=== PATIENT | female | born 1975 | race Caucasian/White ===

== ENCOUNTER 2018-01-17 09:55 | Emergency (ER) | payer OTHER ==
[2018-01-17] MEDS ORDERED: predniSONE 50 MG TAB PO STA (11:05)
[2018-01-17] MEDS ORDERED: diphenhydrAMINE 50 MG CAP PO STA (11:06)
[2018-01-17] MEDS ORDERED: FAMOTIDINE 20 MG TAB PO STA (11:06)
[2018-01-17 12:45] VITALS: RESP 16
--- NOTE | 2018-01-17 13:13 | ED ---
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 She put a rent-vit-holrnor topical cream for the discomfort, then she noticed some redness and some hives on the or and she also had some burning with this appointment. She denies any shortness of breath she denies any tightening of the throat no chest pain or shortness of breath no other symptoms at all - Related Data Home Medications Medication Instructions Recorded Confirmed Hydrochlorothiazide 6.25 mg PO DAILY 06/21/16 01/17/18 Losartan [Cozaar] 25 mg PO DAILY 06/21/16 01/17/18 metFORMIN HCL [Glucophage] 500 mg PO BID 06/21/16 01/17/18 Gabapentin [Neurontin] 100 mg PO TID 01/17/18 01/17/18 Gabapentin [Neurontin] 200 mg PO HS 01/17/18 01/17/18 Previous Rx's Medication Instructions Recorded Ibuprofen [Motrin] 600 mg PO Q6HR PRN #20 tab 06/29/16 predniSONE 50 mg PO DAILY #5 tablet 01/17/18 Allergies Allergy/AdvReac Type Severity Reaction Status Date / Time capsaicin Allergy Rash/Hives Verified 01/17/18 12:31 Review of Systems ROS Statement: Those systems with pertinent positive or pertinent negative responses have been documented in the HPI. ROS Other: All systems not noted in ROS Statement are negative. Past Medical History Past Medical History: Diabetes Mellitus, Hypertension History of Any Multi-Drug Resistant Organisms: None Reported Past Surgical History: Appendectomy, Cholecystectomy, Tubal Ligation Additional Past Surgical History / Comment(s): carpal tunnel, dental Past Psychological History: No Psychological Hx Reported Smoking Status: Current every day smoker Past Alcohol Use History: Occasional Past Drug Use History: None Reported General Exam - General Exam Comments Initial Comments: General: The patient is awake and alert, in no distress, and does not appear acutely ill. Skin: Skin is warm and dry and no rashes or lesions are noted. Noticed some erythema and hives on the left or make it started from above the elbow and when all the way to the hand and was also noticed on the dorsal surface of the hand Eye: Pupils are equal, round and reactive to light, extra-ocular movements are intact; there is normal conjunctiva bilaterally. Ears, nose, mouth and throat: There are moist mucous membranes and no oral lesions. Neck: The neck is supple, there is no tenderness or JVD. Cardiovascular: There is a regular rate and rhythm. No murmur, rub or gallop is appreciated. Respiratory: To auscultation bilateral, no wheezing no rhonchi no distress respiratory cam noticed Gastrointestinal: Soft, non-distended, non-tender abdomen without masses or organomegaly noted. There is no rebound or guarding present. Bowel sounds are unremarkable. Back: There is no tenderness to palpation in the midline. There is no obvious deformity. Musculoskeletal: Normal ROM, no tenderness, There is no pedal edema. There is no calf tenderness or swelling. No cords were appreciated. Neurological: CN II-XII intact, Cranial nerves III through XII are intact. There are no obvious motor or sensory deficits. Coordination appears grossly intact. Speech is normal. Psychiatric: Cooperative, appropriate mood & affect, normal judgment. 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
[2018-01-17 13:31] VITALS: BP 159/78; PULSE 63; TEMP 98.6
== END 2018-01-17 13:43 | disposition home or self-care (01) ==
LOC: EC 09:55
DX: T78.40XA Allergy, unspecified, initial encounter (principal); M25.522 Pain in left elbow; R20.2 Paresthesia of skin; E11.9 Type 2 diabetes mellitus without complications; I10 Essential (primary) hypertension; F17.200 Nicotine dependence, unspecified, uncomplicated; Z79.84 Long term (current) use of oral hypoglycemic drugs; Z79.899 Other long term (current) drug therapy; Z91.018 Allergy to other foods
CPT/HCPCS: 99283; J7512

== ENCOUNTER 2018-03-10 11:36 | Emergency (ER) | payer OTHER ==
[2018-03-10 11:45] VITALS: BP 132/83; PULSE 92; RESP 20; TEMP 100.7
--- NOTE | 2018-03-10 12:20 | XR ---
EXAMINATION TYPE: XR chest 2V DATE OF EXAM: 03/10/2018 COMPARISON: NONE HISTORY: Chest pain TECHNIQUE: Frontal and lateral views of the chest are obtained. FINDINGS: There is no focal air space opacity. No evidence for pneumothorax. No pleural effusion. The cardiac silhouette size is within normal limits. The osseous structures are grossly intact. IMPRESSION: 1. No acute cardiopulmonary process.
--- NOTE | 2018-03-10 13:18 | ED ---
URI HPI - General Chief Complaint: Upper Respiratory Infection Stated Complaint: Diff Breathing, Cough Time Seen by Provider: 03/10/18 13:08 Source: patient, RN notes reviewed Mode of arrival: ambulatory Limitations: no limitations - History of Present Illness Initial Comments: This a pleasant 43-year-old female presents emergency department complaining of cough, fever, body aches, mild headache, and mild sore throat. Patient states the symptoms have been present since yesterday. Patient complains of a dry cough. Patient does have type 2 diabetes mellitus which is controlled by metformin. Patient is a cigarette smoker. Patient denies neck stiffness. No rash. No chest pain or overt shortness of breath. No abdominal pain. No nausea vomiting. No problems with vomiting urination. No ill exposures. No recent travel. Patient does work at [employer]. - Related Data Home Medications Medication Instructions Recorded Confirmed Hydrochlorothiazide 6.25 mg PO DAILY 06/21/16 01/17/18 Losartan [Cozaar] 25 mg PO DAILY 06/21/16 01/17/18 metFORMIN HCL [Glucophage] 500 mg PO BID 06/21/16 01/17/18 Gabapentin [Neurontin] 100 mg PO TID 01/17/18 01/17/18 Gabapentin [Neurontin] 200 mg PO HS 01/17/18 01/17/18 Previous Rx's Medication Instructions Recorded Ibuprofen [Motrin] 600 mg PO Q6HR PRN #20 tab 06/29/16 predniSONE 50 mg PO DAILY #5 tablet 01/17/18 Oseltamivir [Tamiflu] 75 mg PO Q12HR #10 cap 03/10/18 Allergies Allergy/AdvReac Type Severity Reaction Status Date / Time capsaicin Allergy Rash/Hives Verified 03/10/18 11:45 Review of Systems ROS Statement: Those systems with pertinent positive or pertinent negative responses have been documented in the HPI. ROS Other: All systems not noted in ROS Statement are negative. Past Medical History Past Medical History: Diabetes Mellitus, Hypertension History of Any Multi-Drug Resistant Organisms: None Reported Past Surgical History: Appendectomy, Cholecystectomy, Tubal Ligation Additional Past Surgical History / Comment(s): carpal tunnel, dental Past Psychological History: No Psychological Hx Reported Smoking Status: Current every day smoker Past Alcohol Use History: Occasional Past Drug Use History: None Reported Additional History: Past medical history as reviewed General Exam - General Exam Comments Initial Comments: Well-developed, well-nourished 43-year-old female in mild distress secondary to flulike symptoms Limitations: no limitations General appearance: alert, in no apparent distress Head exam: Present: atraumatic, normocephalic, normal inspection Eye exam: Present: normal appearance, PERRL, EOMI. Absent: scleral icterus, conjunctival injection, periorbital swelling ENT exam: Present: normal exam, mucous membranes moist Neck exam: Present: normal inspection. Absent: tenderness, meningismus, lymphadenopathy Respiratory exam: Present: normal lung sounds bilaterally, other (No tachypnea, lung sounds are clear, no assessory muscle use). Absent: respiratory distress, wheezes, rales, rhonchi, stridor, chest wall tenderness, accessory muscle use, decreased breath sounds, prolonged expiratory Cardiovascular Exam: Present: regular rate, normal rhythm, normal heart sounds. Absent: systolic murmur, diastolic murmur, rubs, gallop, clicks GI/Abdominal exam: Present: soft, normal bowel sounds. Absent: distended, tenderness, guarding, rebound, rigid Extremities exam: Present: normal inspection, full ROM, normal capillary refill. Absent: tenderness, pedal edema, joint swelling, calf tenderness Back exam: Present: normal inspection Neurological exam: Present: alert, oriented X3, CN II-XII intact Psychiatric exam: Present: normal affect, normal mood Skin exam: Present: warm, dry, intact, normal color. Absent: rash Course Vital Signs 03/10/18 11:43 Temperature 100.7 F H Pulse Rate 92 Respiratory 20 Rate Blood Pressure 132/83 O2 Sat by Pulse 95 Oximetry Medical Decision Making - Medical Decision Making Patient's presentation symptomology is consistent with influenza. Patient did test positive for influenza B. Patient be treated with Tamiflu since she is within the 48 hour onset window. Return and follow-up parameters discussed. - Lab Data Lab Results 03/10/18 Range/Units 11:46 Influenza Type A RNA Not Detected (Not Detectd) Influenza Type B (PCR) Detected H (Not Detectd) Disposition Clinical Impression: Influenza B, Fever, Cough Disposition: HOME SELF-CARE Condition: Good Instructions: Influenza (ED) Additional Instructions: Tamiflu as directed, increase fluids, alternate acetaminophen and ibuprofen every 4 hours for fever control. Return to the ER at once if the symptoms worsen or problems or difficulties arise. Prescriptions: Oseltamivir [Tamiflu] 75 mg PO Q12HR #10 cap Referrals: Andres Marin MD [Primary Care Provider] - 1-2 days Time of Disposition: 13:15
== END 2018-03-10 13:21 | disposition home or self-care (01) ==
LOC: EC 11:36
DX: J10.1 Influenza due to other identified influenza virus with other respiratory manifestations (principal); E11.9 Type 2 diabetes mellitus without complications; I10 Essential (primary) hypertension; F17.210 Nicotine dependence, cigarettes, uncomplicated; Z79.84 Long term (current) use of oral hypoglycemic drugs; Z79.899 Other long term (current) drug therapy; Z91.018 Allergy to other foods
CPT/HCPCS: 71046; 87502; 99283

== ENCOUNTER 2019-04-19 17:16 | Emergency (ER) | payer OTHER ==
--- NOTE | 2019-04-19 19:47 | USB ---
EXAMINATION TYPE: US breast limited LT DATE OF EXAM: 04/19/2019 COMPARISON: CLINICAL HISTORY: Pain. hx of left breast abscess x 3 years ago with surgical drainage. Palpable at nipple and extends to 9:00 area. Red, tender and sore at nipple. Hard at touch. Area of concern scanned. Complex lesion visualized with peripheral vascularity and inflammatory feliz ges seen, measuring = 3.1 x 3.2 x 1.8 cm IMPRESSION: Complex mass is demonstrated in the area of concern consistent with an abscess.
[2019-04-19] MEDS ORDERED: KETOROLAC 60 MG/2 ML VIAL IM STA (20:36)
--- NOTE | 2019-04-19 21:15 | ED ---
General Adult HPI - General Chief complaint: Skin/Abscess/Foreign Body Stated complaint: breast pain Time Seen by Provider: 04/19/19 17:28 Source: patient Mode of arrival: ambulatory Limitations: no limitations - History of Present Illness Initial comments: Patient is a 44-year-old female presenting to emergency Department with an abscess on the left breast. Patient reports the abscess develop over the course of 2 days. When the pain started patient reports placing a warm compress in hopes of preventing the abscess with spreading but achieved minimal improvement. Patient reports previous history of an abscess in the same location that was surgically drained approximately 3 years ago. Patient denies fever,, chills, headache, nausea, vomiting, diarrhea. Patient denies taking any medication to alleviate the pain. - Related Data Previous Rx's Medication Instructions Recorded Cephalexin [Keflex] 500 mg PO Q6HR 3 Days #12 cap 04/19/19 Allergies Allergy/AdvReac Type Severity Reaction Status Date / Time capsaicin Allergy Rash/Hives Verified 04/19/19 17:38 Review of Systems ROS Statement: Those systems with pertinent positive or pertinent negative responses have been documented in the HPI. ROS Other: All systems not noted in ROS Statement are negative. Past Medical History Past Medical History: Diabetes Mellitus, Hypertension History of Any Multi-Drug Resistant Organisms: None Reported Past Surgical History: Appendectomy, Cholecystectomy, Tubal Ligation Additional Past Surgical History / Comment(s): carpal tunnel, dental Past Psychological History: Bipolar Smoking Status: Current every day smoker Past Alcohol Use History: Occasional Past Drug Use History: None Reported General Exam - General Exam Comments Initial Comments: Abscess on the upper inner quadrant of the left breast originating at the nipple. Approximate size is 3 x 3 cm. Limitations: no limitations General appearance: alert, in no apparent distress Head exam: Present: atraumatic, normocephalic, normal inspection Eye exam: Present: normal appearance Respiratory exam: Present: normal lung sounds bilaterally Cardiovascular Exam: Present: regular rate, normal rhythm, normal heart sounds Neurological exam: Present: alert, oriented X3 Psychiatric exam: Present: normal affect, normal mood Skin exam: Present: warm, normal color Course Vital Signs 04/19/19 17:22 Temperature 98.2 F Pulse Rate 86 Respiratory 18 Rate Blood Pressure 177/104 O2 Sat by Pulse 98 Oximetry Procedures - Incision & Drainage Consent Obtained: verbal consent Indication: abscess Site: other (Breasts) Needle Aspiration Performed?: Yes (Only aspiration performed, no I&D) I&D Drainage Obtained: Pus (Minimal) Patient Tolerated Procedure: well Medical Decision Making - Medical Decision Making Patient is a 44-year-old male presenting to emergency Department with left breast abscess. I spoke with Dr. Familia Mendez who performed her previous surgical procedure and she suggested needle aspiration followed by antibiotic treatment and a follow-up appointment in the morning with her. I performed needle aspiration with minimal pus drainage. Patient will be discharged with Keflex. Patient advised to follow-up with Dr. Familia Mendez in the morning. Patient advised not to drink or eat anything after midnight. Patient advised to return to emergency department if symptoms worsen. Case discussed with physician. Disposition Clinical Impression: Abscess Disposition: HOME SELF-CARE Condition: Stable Additional Instructions: Please take prescribed medication as directed. Please follow-up with Dr. Familia Mendez in the morning. Please don't drink or eat anything after midnight. Return to emergency department if symptoms worsen. Is patient prescribed a controlled substance at d/c from ED?: No Referrals: Andres Marin MD [Primary Care Provider] - 1-2 days Maren Fajardo MD [STAFF PHYSICIAN] - 1-2 days Time of Disposition: 21:16
[2019-04-19 21:54] VITALS: BP 115/79; PULSE 66; RESP 20; TEMP 97.6
== END 2019-04-19 21:55 | disposition home or self-care (01) ==
LOC: EC 17:16
DX: N61.1 Abscess of the breast and nipple (principal); F17.200 Nicotine dependence, unspecified, uncomplicated; Z91.018 Allergy to other foods
CPT/HCPCS: 76642; 99283; 10160; 96372; J1885

== ENCOUNTER 2019-04-20 13:02 | Day surgery (SDC) | payer OTHER ==
[2019-04-20 14:03] LABS: Glucose,Whole Blood 89 mg/dL (75-99)
[2019-04-20] MEDS ORDERED: LACTATED RINGERS 1,000 ML IV ONE (14:06)
[2019-04-20] MEDS ORDERED: LIDOCAINE 1% 20 ML VIAL (10MG/ML) FOR IV START INTRADERMA ONE (14:06)
[2019-04-20] MEDS ORDERED: DEXAMETHASONE SOD PHOS (MDV) 100 MG/10 ML VIAL IV ONE (14:07)
[2019-04-20] MEDS ORDERED: ONDANSETRON 4 MG/2 ML VIAL IVP ONE (14:07)
[2019-04-20] MEDS ORDERED: HEPARIN SODIUM,PORCINE 5,000 UNIT/ML 1 ML VIAL SQ ONE ×3 (15:12→16:12)
[2019-04-20] MEDS ORDERED: fentaNYL (PF) 50 MCG/ML 2 ML AMP ONE (15:28)
[2019-04-20] MEDS ORDERED: LIDOCAINE 1% INJ 10MG/ML (20 ML MDV) ONE (15:28)
[2019-04-20] MEDS ORDERED: KETOROLAC 30 MG/ML 1 ML VIAL ONE (15:28)
[2019-04-20] MEDS ORDERED: MIDAZOLAM 2 MG/2 ML VIAL ONE (15:28)
[2019-04-20] MEDS ORDERED: PROPOFOL 10 MG/ML 20 ML VIAL IV ONE (15:28)
[2019-04-20] MEDS ORDERED: SODIUM CHLORIDE 0.9% 100 ML with ceFAZolin 2,000 MG IV ONE ×2 (15:41)
--- NOTE | 2019-04-20 16:10 | P.OP ---
Date of Procedure: 04/20/19 Preoperative Diagnosis: Left breast abscess Postoperative Diagnosis: Same Procedure(s) Performed: Incision and drainage of left breast abscess Anesthesia: NASH Surgeon: Maren Fajardo Estimated Blood Loss (ml): 10 IV fluids (ml): 200 Pathology: other (wall of cyst) Condition: stable Disposition: same day Indications for Procedure: Left breast abscess Operative Findings: Abscess Description of Procedure: The patient was taken to the operating room and following induction of general anesthesia the left breast was prepped and draped in a sterile fashion. Circumareolar incision was made and immediately an abscess cavity was entered. Purulent drainage was obtained. Cultures aerobic and anaerobic were obtained. The cavity was opened and was noted to be loculated. The loculations were bro citlaly down. The sizer cavity was approximately 8 cm x 4 cm. There was a vessel which was within the cavity and this was clamped with a hemostat and ligated. The wound was well irrigated. Following this after assured that hemostasis was attained the wound was packed with iodoform gauze. Sterile dressing was applied. The patient tolerated the procedure in stable condition.
--- NOTE | 2019-04-20 16:12 | P.DS ---
Providers Attending physician: Maren Fajardo Primary care physician: Andres Marin Plan - Discharge Summary Follow up Appointment(s)/Referral(s): Maren Fajardo MD [STAFF PHYSICIAN] - 1-2 Days Activity/Diet/Wound Care/Special Instructions: Do not drive until seen by Dr. Barbosa Patient may shower after 48 hours Discharge Disposition: HOME SELF-CARE
[2019-04-20 16:29] VITALS: TEMP 97.3
[2019-04-20 16:33] VITALS: RESP 16
[2019-04-20] MEDS: HYDROmorphone 1 MG/ML 1 ML SYRINGE IVP ONE ×2 (16:36→16:42)
[2019-04-20 17:13] VITALS: PULSE 77
[2019-04-20 17:29] VITALS: BP 126/81
== END 2019-04-20 17:56 | disposition home or self-care (01) ==
LOC: OR 13:02
PROVIDERS: ATTEND Surgery
DX: N61.1 Abscess of the breast and nipple (principal); E66.9 Obesity, unspecified; Z68.38 Body mass index [BMI] 38.0-38.9, adult; R73.03 Prediabetes; F17.210 Nicotine dependence, cigarettes, uncomplicated; F31.9 Bipolar disorder, unspecified; I10 Essential (primary) hypertension; N60.19 Diffuse cystic mastopathy of unspecified breast; Z90.49 Acquired absence of other specified parts of digestive tract; Z98.51 Tubal ligation status; Z79.2 Long term (current) use of antibiotics; Z88.8 Allergy status to other drugs, medicaments and biological substances
CPT/HCPCS: 10060; 81025; 87070; 87205; 87075; J2250; J1644; J2405; J0690; J2001; J3010; J1885; J1170; J1100; J2704; 87077; 87186; 88304

== ENCOUNTER → 2019-04-20 | Outpatient (CLI) | payer OTHER ==
[2019-04-20 11:46] VITALS: BP 137/85; PULSE 67; RESP 18; TEMP 98.3; BMI 40.7
--- NOTE | 2019-04-20 12:10 | P.GSHP ---
History of Present Illness H&P Date: 04/20/19 Chief Complaint: nodule left breast The patient is a 44-year-old white female who states that approximately 3 days ago she awoke with some burning in her left breast. The area continued to be uncomfortable and she then noted a firm mass given the periareolar region. S he was seen in the emergency department and an ultrasound was performed which revealed a complex lesion visualized with peripheral vascularity and inflammatory changes measuring 3.1 x 1.8 cm. The patient states it is tender with movement. She has not had any fever or chills. She did have a similar episode approximately 3 years ago with an abscess in the same location which was drained in the operating room. At that time she had the area packed every 2 days. Last menstrual period in January. No history of recent trauma to her breast. Family History: mother: cervical cancer maternal uncle: stomach cancer maternal great aunt: breast cancer Hormonal history: Menarche:15 , breast fed: none. first at 26 periods irregular BCP: <1 year hormones: none Surgical history: 1. colposcopy 2. tubaligation 3. top teeth removed 4. carpal tunnel tighr 5. appy 6. gallbladder 7. breast abscess Medical history: 1. Borderline diabetic 2. bipolar 3. HTN 4. obesity recently lost 60 pounds Social History: smoke: 1/2 PPD alcohol: beer occasionally Drugs: Negative - Constitutional Constitutional: Reports sweats - EENT Eyes: denies blurred vision, denies pain Ears: deny: decreased hearing, tinnitus Ears, nose, mouth and throat: Reports headache - Breasts Breasts: bilateral: as per HPI - Cardiovascular Cardiovascular: Reports high blood pressure, Denies chest pain, Denies shortness of breath - Respiratory Comment: smoker - Gastrointestinal Gastrointestinal: Denies abdominal pain, Denies diarrhea, Denies nausea, Denies vomiting - Genitourinary (Female) Genitourinary: Reports kidney stones - Menstruation Comment: period irregular - Musculoskeletal Musculoskeletal: Reports myalgias - Integumentary Comment: abscesses at times Integumentary: Denies pruritus, Denies rash - Neurological Neurological: Reports numbness - Psychiatric Comment: bipolar - Endocrine Comment: Borderline diabetes - Hematologic/Lymphatic Comment: none - Allergic/Immunologic Allergic/Immunologic: Reports seasonal allergies Past Medical History Past Medical History: Diabetes Mellitus, Hypertension History of Any Multi-Drug Resistant Organisms: None Reported Past Surgical History: Appendectomy, Cholecystectomy, Tubal Ligation Additional Past Surgical History / Comment(s): carpal tunnel, dental Past Psychological History: Bipolar Smoking Status: Current every day smoker Past Alcohol Use History: Occasional Past Drug Use History: None Reported Medications and Allergies Home Medications Medication Instructions Recorded Confirmed Type Cephalexin [Keflex] 500 mg PO Q6HR 3 Days #12 cap 04/19/19 Rx Sulfamethox-Tmp 800-160Mg [Bactrim 1 each PO Q12HR #20 tab 04/19/19 Rx Ds] Allergies Allergy/AdvReac Type Severity Reaction Status Date / Time capsaicin Allergy Rash/Hives Verified 04/20/19 11:47 Surgical - Exam Vital Signs Temp Pulse Resp BP Pulse Ox 98.3 F 67 18 137/85 99 04/20/19 11:29 04/20/19 11:29 04/20/19 11:29 04/20/19 11:29 04/20/19 11:29 BMI 40.1 - General obese - Eyes normal ocular movement - ENT no hearing loss, no congestion - Neck trachea midline - Respiratory normal respiratory effort, clear to auscultation - Cardiovascular Rhythm: regular Heart Sounds: normal: S1, S2 - Abdomen Abdomen: soft, non tender, no guarding, no rigid, no rebound - Integumentary tattoos - Neurologic no disoriented, no combative - Musculoskeletal normal gait, normal posture - Psychiatric oriented to time, oriented to person, oriented to place, speech is normal, memory intact breast exam: Breasts: Multiple positional exam fibrocystic changes Radiographic: Evidence of hidradenitis in the past no dominant masses or nodules at this time Left breast: from the 12:00 to the 9 o'clock position there is marked fullness with stainless underneath the nipple areolar complex, this appears to be consistent with an abscess, it is erythematous and tender to palpation Left axilla: No adenopathy of concern Results Ultrasound reviewed Assessment and Plan Assessment: Impression: 1. Left breast mass/abscess 2. Fibrocystic breast changes 3. Prior history of hidradenitis 4. Borderline diabetes 5. Hypertension 6. Bipolar 7. obesity Plan: 1. Operative incision and drainage of mass/abscess left breast 2. Medical management of medical conditions CC: Dr. Marin
== END ==
LOC: WWCWWP 11:04
PROVIDERS: ATTEND Surgery
DX: N64.4 Mastodynia (principal)
CPT/HCPCS: 81025

== ENCOUNTER → 2019-04-22 | Outpatient (CLI) | payer OTHER ==
[2019-04-22 16:10] VITALS: BP 124/85; PULSE 85; RESP 16; TEMP 98.3; BMI 40.7
--- NOTE | 2019-04-22 17:08 | P.PN ---
Subjective Progress Note Date: 04/22/19 Patient is status [place] [address]. Postprocedure she is doing well and comes for packing change. She has no fever or chills. She is not complaining of anything at this time and states that the pain is decreased. Objective - Vital Signs Vital signs: Vital Signs Temp 98.3 F 04/22/19 16:03 Pulse 85 04/22/19 16:03 Resp 16 04/22/19 16:03 BP 124/85 04/22/19 16:03 Pulse Ox 96 04/22/19 16:03 Intake & Output 04/21/19 04/22/19 04/22/19 18:59 06:59 18:59 Weight 104.326 kg - Constitutional General appearance: Present: obese - EENT Eyes: Present: EOMI ENT: Present: hearing grossly normal - Integumentary Integumentary Comment(s): Incision is clean and dry Packing changed Assessment and Plan Assessment: Impression: 1. I&D abscess left breast 2. Cultures pending Plan: 1. Back and changed twice a day 2. Continue Keflex at this time 3. Follow-up in 1 week 4. was taught how to change the packing CC: Tania
== END ==
LOC: WWCWWP 15:57
PROVIDERS: ATTEND Surgery
DX: Z53.9 Procedure and treatment not carried out, unspecified reason (principal)

== ENCOUNTER 2019-08-04 17:33 | Emergency (ER) | payer OTHER ==
[2019-08-04 17:39] VITALS: RESP 18
[2019-08-04] MEDS ORDERED: SODIUM CHLORIDE 0.9% 1,000 ML IV STA (18:45)
--- NOTE | 2019-08-04 18:57 | ED ---
General Adult HPI - General Chief complaint: Skin/Abscess/Foreign Body Stated complaint: poss incision infection Time Seen by Provider: 08/04/19 18:37 Source: patient, RN notes reviewed, old records reviewed Mode of arrival: ambulatory Limitations: no limitations - History of Present Illness Initial comments: 44-year-old female patient with past history significant for left breast abscess incision and drainage in March presents to ED with chief complaint of left breast pain and drainage. Patient also has a past medical history of hypertension and diabetes. Patient reports that she still has a slight incision opening from the surgery 4 months ago. Patient reports that she additionally has a green drainage which drains out of this periaeriolar incision site. Patient reports that she has pain in this left breast region was radiates up to her neck. Patient denies any provocative or palliative factors, states that this pain occurs intermittently and at random. Denies any shortness of breath. Denies any systemic signs of infection, fevers chills, nausea vomiting diarrhea. Patient states that overall she feels good, she is just concerned why she still has a incision site which is open, drainage, as well as the pain. Breast abscess I&D was performed by Dr. Fajardo. Systemic: Pt denies fatigue, fever/chills, rash. Pt denies weakness, night sweats, weight loss. Neuro: Pt denies headache, visual disturbances, syncope or pre-syncope. HEENT: Pt denies ocular discharge or irritation, otalgia, rhinorrhea, pharyngitis or notable lymphadenopathy. Cardiopulmonary: Pt denies heart palpitations, dyspnea on exertion. Abdominal/GI: Pt denies abdominal pain, n/v/d. : Pt denies dysuria, burning w/ urination, frequency/urgency. Denies new onset urinary or bowel incontinence. MSK: Pt denies myalgia, loss of strength or function in extremities. Neuro: Pt denies new onset weakness, paresthesias. - Related Data Previous Rx's Medication Instructions Recorded Sulfamethox-Tmp 800-160Mg [Bactrim 2 tab PO Q12HR 7 Days #14 tab 08/04/19 DS 800-160 mg] Allergies Allergy/AdvReac Type Severity Reaction Status Date / Time capsaicin Allergy Rash/Hives Verified 08/04/19 19:01 Review of Systems ROS Statement: Those systems with pertinent positive or pertinent negative responses have been documented in the HPI. ROS Other: All systems not noted in ROS Statement are negative. Past Medical History Past Medical History: Diabetes Mellitus, Hypertension History of Any Multi-Drug Resistant Organisms: None Reported Past Surgical History: Appendectomy, Breast Surgery, Cholecystectomy, Tubal Ligation Additional Past Surgical History / Comment(s): carpal tunnel, dental, March 2019 abcess drainage left breast Past Psychological History: Bipolar Smoking Status: Current every day smoker Past Alcohol Use History: Occasional Past Drug Use History: None Reported General Exam - General Exam Comments Initial Comments: Constitutional: NAD, AOX3, Pt has pleasant affect. HEENT: NC/AT, trachea midline, neck supple, no lymphadenopathy. Posterior pharynx non erythematous, without exudates. External ears appear normal, without discharge. Mucous membranes moist. Eyes PERRLA, EOM intact. There is no scleral icterus. No pallor noted. Cardiopulmonary: RRR, no murmurs, rubs or gallops, no JVD noted. Lungs CTAB in anterior and posterior abrams. No peripheral edema. Abdominal exam: Abdomen soft and non-distended. Abdomen non-tender to palpation in all 4 quadrants. Bowel sounds active in LLQ. No hepatosplenomegaly. No ecchymosis Neuro: CN II-XII grossly intact. No nuchal rigidity. No raccon eyes, no alcantara sign, no hemotympanum. No cervical spinal tenderness. MSK: No posterior calf tenderness bilaterally, homans sign negative bilaterally. Posterior tibialis and radial pulse +2 bilaterally. Sensation intact in upper and lower extremities. Full active ROM in upper and lower extremities, 5/5 stregnth. Derm: Small 1 cm incision noted at approximately 7:00 on the radial. No eryt nila, no skin changes. Mildly tender to palpation. Green discharge expression. Nonfluctuant Chaperogned by MARK Chavarria Limitations: no limitations Course Vital Signs 08/04/19 17:36 Temperature 98.7 F Pulse Rate 82 Respiratory 18 Rate Blood Pressure 149/90 O2 Sat by Pulse 98 Oximetry Medical Decision Making - Medical Decision Making 44-year-old female patient with past history significant for left breast abscess incision and drainage in March presents to ED with chief complaint of left breast pain and drainage. Patient also has a past medical history of hypertension and diabetes. Patient reports that she still has a slight incision opening from the surgery 4 months ago. Patient reports that she additionally has a green d rainage which drains out of this periaeriolar incision site. Patient reports that she has pain in this left breast region was radiates up to her neck. Patient denies any provocative or palliative factors, states that this pain occurs intermittently and at random. Denies any shortness of breath. Denies any systemic signs of infection, fevers chills, nausea vomiting diarrhea. Patient states that overall she feels good, she is just concerned why she still has a incision site which is open, drainage, as well as the pain. Breast abscess I&D was performed by Dr. Fajardo. Pt VSS, afebrile. Physical exam displayed: Small 1 cm incision noted at approximately 7:00 on the radial. No erythema, no skin changes. Mildly tender to palpation. Green discharge expression. Nonfluctuant Chaperogned by MARK Chavarria. Laboratory investigations non- impressive. No leukocytosis. Troponin negative. EKG not concerning for acute ischemia. Chest x-ray revealed no acute process. Ultrasound breast displayed to small complex fluid areas which could be seroma or abscess. Patient administered 1 g of ceftriaxone and one dose of bactrim in ED. Will be DC with bactrim and close outpatient follow up with surgeon and PCP. Case discussed with Dr. Duran. - Lab Data Result diagrams: 08/04/19 18:55 08/04/19 18:55 Lab Results 08/04/19 08/04/19 08/04/19 Range/Units 18:55 18:55 18:55 WBC 9.1 (3.8-10.6) k/uL RBC 4.82 (3.80-5.40) m/uL Hgb 14.2 (11.4-16.0) gm/dL Hct 42.7 (34.0-46.0) % MCV 88.6 (80.0-100.0) fL MCH 29.4 (25.0-35.0) pg MCHC 33.2 (31.0-37.0) g/dL RDW 13.8 (11.5-15.5) % Plt Count 133 L (150-450) k/uL Neutrophils % 56 % Lymphocytes % 31 % Monocytes % 7 % Eosinophils % 3 % Basophils % 2 % Neutrophils # 5.1 (1.3-7.7) k/uL Lymphocytes # 2.8 (1.0-4.8) k/uL Monocytes # 0.6 (0-1.0) k/uL Eosinophils # 0.3 (0-0.7) k/uL Basophils # 0.1 (0-0.2) k/uL PT 10.4 (9.0-12.0) sec INR 1.0 (<1.2) APTT 24.5 (22.0-30.0) sec Sodium 138 (137-145) mmol/L Potassium 4.3 (3.5-5.1) mmol/L Chloride 107 (98-107) mmol/L Carbon Dioxide 22 (22-30) mmol/L Anion Gap 9 mmol/L BUN 16 (7-17) mg/dL Creatinine 0.67 (0.52-1.04) mg/dL Est GFR (CKD-EPI)AfAm >90 (>60 ml/min/1.73 sqM) Est GFR (CKD-EPI)NonAf >90 (>60 ml/min/1.73 sqM) Glucose 108 H (74-99) mg/dL Calcium 9.3 (8.4-10.2) mg/dL Magnesium 1.8 (1.6-2.3) mg/dL Total Bilirubin 0.4 (0.2-1.3) mg/dL AST 63 H (14-36) U/L ALT 80 H (9-52) U/L Alkaline Phosphatase 99 (38-126) U/L Troponin I (0.000-0.034) ng/mL Total Protein 7.5 (6.3-8.2) g/dL Albumin 4.3 (3.5-5.0) g/dL Urine Color Urine Appearance (Clear) Urine pH (5.0-8.0) Ur Specific [place] (1.001-1.035) Urine Protein (Negative) Urine Glucose (UA) (Negative) Urine Ketones (Negative) Urine Blood (Negative) Urine Nitrite (Negative) Urine Bilirubin (Negative) Urine Urobilinogen (<2.0) mg/dL Ur Leukocyte Esterase (Negative) Urine RBC (0-5) /hpf Urine WBC (0-5) /hpf Ur Squamous Epith Cells (0-4) /hpf Urine Bacteria (None) /hpf Urine Mucus (None) /hpf Urine HCG, Qual (Not Detectd) 08/04/19 08/04/19 08/04/19 Range/Units 18:55 19:00 19:00 WBC (3.8-10.6) k/uL RBC (3.80-5.40) m/uL Hgb (11.4-16.0) gm/dL Hct (34.0-46.0) % MCV (80.0-100.0) fL MCH (25.0-35.0) pg MCHC (31.0-37.0) g/dL RDW (11.5-15.5) % Plt Count (150-450) k/uL Neutrophils % % Lymphocytes % % Monocytes % % Eosinophils % % Basophils % % Neutrophils # (1.3-7.7) k/uL Lymphocytes # (1.0-4.8) k/uL Monocytes # (0-1.0) k/uL Eosinophils # (0-0.7) k/uL Basophils # (0-0.2) k/uL PT (9.0-12.0) sec INR (<1.2) APTT (22.0-30.0) sec Sodium (137-145) mmol/L Potassium (3.5-5.1) mmol/L Chloride (98-107) mmol/L Carbon Dioxide (22-30) mmol/L Anion Gap mmol/L BUN (7-17) mg/dL Creatinine (0.52-1.04) mg/dL Est GFR (CKD-EPI)AfAm (>60 ml/min/1.73 sqM) Est GFR (CKD-EPI)NonAf (>60 ml/min/1.73 sqM) Glucose (74-99) mg/dL Calcium (8.4-10.2) mg/dL Magnesium (1.6-2.3) mg/dL Total Bilirubin (0.2-1.3) mg/dL AST (14-36) U/L ALT (9-52) U/L Alkaline Phosphatase (38-126) U/L Troponin I <0.012 (0.000-0.034) ng/mL Total Protein (6.3-8.2) g/dL Albumin (3.5-5.0) g/dL Urine Color Yellow Urine Appearance Cloudy H (Clear) Urine pH 6.5 (5.0-8.0) Ur Specific [place] 1.019 (1.001-1.035) Urine Protein Negative (Negative) Urine Glucose (UA) Negative (Negative) Urine Ketones Negative (Negative) Urine Blood Negative (Negative) Urine Nitrite Negative (Negative) Urine Bilirubin Negative (Negative) Urine Urobilinogen 4.0 (<2.0) mg/dL Ur Leukocyte Esterase Negative (Negative) Urine RBC <1 (0-5) /hpf Urine WBC 1 (0-5) /hpf Ur Squamous Epith Cells 17 H (0-4) /hpf Urine Bacteria Rare H (None) /hpf Urine Mucus Rare H (None) /hpf Urine HCG, Qual Not Detected (Not Detectd) - EKG Data -: EKG Interpreted by Me (and Dr. Duran) EKG Comments: Ventricular rate 69,. Full 124, QRS 84, QT/QTc 42/447. Normal sinus rhythm, normal EKG. No concern for acute ischemia. Disposition Clinical Impression: Discharge from breast Disposition: HOME SELF-CARE Condition: Stable Instructions (If sedation given, give patient instructions): Abscess (ED) Additional Instructions: Patient to adhere to previously discussed treatment plan and will take medication(s) as directed. Patient to follow up with PCP in 1-2 days. Patient to return to ED if symptoms do not improve. Take medications directed. Follow-up with surgeon and primary care provider tomorrow. Return to ER if condition worsens. Prescriptions: Sulfamethox-Tmp 800-160Mg [Bactrim DS 800-160 mg] 2 tab PO Q12HR 7 Days #14 tab Is patient prescribed a controlled substance at d/c from ED?: No Referrals: None,Stated [Primary Care Provider] - 1-2 days Maren Fajardo MD [STAFF PHYSICIAN] - 1-2 days Toya Martinez MD [STAFF PHYSICIAN] - 1-2 days
[2019-08-04 19:10] LABS: Basophils # (A) 0.1 k/uL (0-0.2); Basophils % (A) 2 %; Eosinophils # (A) 0.3 k/uL (0-0.7); Eosinophils % (A) 3 %; HCT 42.7 % (34.0-46.0); HGB 14.2 gm/dL (11.4-16.0); Lymphocytes # (A) 2.8 k/uL (1.0-4.8); Lymphocytes % (A) 31 %; MCH 29.4 pg (25.0-35.0); MCHC 33.2 g/dL (31.0-37.0); MCV 88.6 fL (80.0-100.0); Monocytes # (A) 0.6 k/uL (0-1.0); Monocytes % (A) 7 %; Neutrophils # (A) 5.1 k/uL (1.3-7.7); Neutrophils % (A) 56 %; Platelet Count 133 k/uL (150-450); RBC 4.82 m/uL (3.80-5.40); RDW 13.8 % (11.5-15.5); WBC 9.1 k/uL (3.8-10.6)
[2019-08-04 19:12] LABS: ALT 80 U/L (9-52); AST 63 U/L (14-36); African American GFR (CKD) >90 (>60 ml/min/1.73 sqM); Albumin 4.3 g/dL (3.5-5.0); Alkaline Phosphatase 99 U/L (38-126); Anion Gap 9 mmol/L; Blood Urea Nitrogen 16 mg/dL (7-17); Calcium 9.3 mg/dL (8.4-10.2); Carbon Dioxide 22 mmol/L (22-30); Chloride 107 mmol/L (98-107); Glucose 108 mg/dL (74-99); Magnesium 1.8 mg/dL (1.6-2.3); Potassium 4.3 mmol/L (3.5-5.1); Sodium 138 mmol/L (137-145); Total Bilirubin 0.4 mg/dL (0.2-1.3); Total Protein 7.5 g/dL (6.3-8.2)
[2019-08-04 19:14] LABS: Appearance,Urine Cloudy (Clear); Bacteria,Urine Rare /hpf; Bilirubin,Urine Negative (Negative); Blood,Urine Negative (Negative); Color,Urine Yellow; Glucose,Urine (UA) Negative (Negative); Ketones,Urine Negative (Negative); Leukocyte Esterase,Urine Negative (Negative); Mucus,Urine Rare /hpf; Nitrite,Urine Negative (Negative); PH, Urine 6.5 (5.0-8.0); Protein,Urine Negative (Negative); RBC,Urine <1 /hpf (0-5); Specific Gravity,Urine 1.019 (1.001-1.035); Squamous Epithelial Cell,Urine 17 /hpf (0-4); WBC,Urine 1 /hpf (0-5)
[2019-08-04] MEDS ORDERED: cefTRIAXone IN SWFI 1,000 MG/10 ML SYRINGE IVP STA (19:14)
[2019-08-04 19:18] LABS: Partial Thromboplastin Time 24.5 sec (22.0-30.0); Prothrombin Time 10.4 sec (9.0-12.0)
--- NOTE | 2019-08-04 19:47 | USB ---
EXAMINATION TYPE: US breast limited LT DATE OF EXAM: 08/04/2019 COMPARISON: US CLINICAL HISTORY: Pain. Abscess drained in March near nipple. Pain and drainage x 5 days. Scanned area of concern left breast 9 o'clock near nipple. Anechoic areas seen measuring: #1: 0.9 x 1.2 x 0.9 cm. #2: 0.5 x 0.6 x 0.3 cm. *Limited exam. Follow up ultrasound with [facility]. IMPRESSION: There are 2 small complex fluid areas in the area of concern at 9:00 position of the lef t breast that could be seroma or abscess
--- NOTE | 2019-08-04 19:48 | XR ---
EXAMINATION TYPE: XR chest 2V DATE OF EXAM: 08/04/2019 COMPARISON: 03/10/2018 HISTORY: Chest pain TECHNIQUE: Frontal and lateral views of the chest are obtained. FINDINGS: Heart and mediastinum are normal. Lungs are clear. Diaphragm is normal. Bony thorax appear s normal. There are chest leads. IMPRESSION: Normal chest. No change.
[2019-08-04] MEDS ORDERED: SULFAMETHOX-TMP 800-160MG 1 EACH TAB PO STA (20:04)
[2019-08-04] MEDS ORDERED: SULFAMETH-TMP DS STARTER PACK 2 TAB BTL PO STA (20:04)
[2019-08-04 20:18] VITALS: BP 133/82; PULSE 69; TEMP 98
== END 2019-08-04 20:24 | disposition home or self-care (01) ==
LOC: EC 17:33
DX: N64.89 Other specified disorders of breast (principal); N64.4 Mastodynia; M54.2 Cervicalgia; F17.200 Nicotine dependence, unspecified, uncomplicated; Z88.6 Allergy status to analgesic agent; Z98.890 Other specified postprocedural states
CPT/HCPCS: 36415; 93005; 80053; 83735; 84484; 85025; 85610; 85730; 81001; 81025; 87070; 87205; 71046; 76642; 99284; 96374; 96361; J0696

== ENCOUNTER → 2019-08-05 | Outpatient (CLI) | payer OTHER ==
[2019-08-05 15:09] VITALS: RESP 18; TEMP 98.4; BMI 41.1
[2019-08-05 15:14] VITALS: PULSE 91
[2019-08-05 15:22] VITALS: BP 155/100
--- NOTE | 2019-08-05 15:30 | P.GSHP ---
History of Present Illness H&P Date: 08/05/19 Chief Complaint: Abscess left breast Patient is a 44-year-old white female who is status post incision and drainage in the operating room of the left breast abscess in March 2019. She did well following that until recently when she noticed some increased fullness in the left breast. The patient states she noted drainage from her incision site approximately 4 days ago. The patient states that it is continuing to drain and the area is getting firm. She states that she has had some dizzy spells several days ago. And she has felt warm. An ultrasound was done through the ER last PM. She was told that there was fluid and collecting at this site. The patient states that it is tender to palpation as well. Ultrasound report shows 2 areas measuring less than a centimeter each. This was reviewed with radiology who recommended one of the areas biopsied as well as drainage performed. The patient has not had a mammogram in the last 4 years. The patient was started on Bactrim in the emergency room. Family History: mother: cervical cancer maternal uncle: stomach cancer maternal great aunt: breast cancer Hormonal history: Menarche:15 , breast fed: none. first at 26 periods irregular BCP: <1 year hormones: none Surgical history: 1. colposcopy 2. tubaligation 3. top teeth removed 4. carpal tunnel tighr 5. appy 6. gallbladder 7. breast abscess Medical history: 1. Borderline diabetic 2. bipolar 3. HTN 4. obesity recently lost 60 pounds Social History: smoke: 1/2 PPD alcohol: beer occasionally Drugs: Negative - Constitutional Constitutional: Reports sweats - EENT Eyes: denies blurred vision, denies pain Ears: deny: decreased hearing, tinnitus Ears, nose, mouth and throat: Reports headache - Breasts Breasts: bilateral: as per HPI - Cardiovascular Cardiovascular: Reports high blood pressure, Denies chest pain, Denies shortness of breath - Respiratory Comment: smoker - Gastrointestinal Gastrointestinal: Denies abdominal pain, Denies diarrhea, Denies nausea, Denies vomiting - Genitourinary (Female) Genitourinary: Reports kidney stones - Menstruation Comment: period irregular - Musculoskeletal Musculoskeletal: Reports myalgias - Integumentary Comment: abscesses at times Integumentary: Denies pruritus, Denies rash - Neurological Neurological: Reports numbness - Psychiatric Comment: bipolar - Endocrine Comment: Borderline diabetes - Hematologic/Lymphatic Comment: none - Allergic/Immunologic Allergic/Immunologic: Reports seasonal allergies Past Medical History Past Medical History: Diabetes Mellitus, Hypertension History of Any Multi-Drug Resistant Organisms: None Reported Past Surgical History: Appendectomy, Cholecystectomy, Tubal Ligation Additional Past Surgical History / Comment(s): carpal tunnel, dental Past Psychological History: Bipolar Smoking Status: Current every day smoker Past Alcohol Use History: Occasional Past Drug Use History: None Reported - Constitutional Constitutional: Reports sweats - EENT Eyes: denies blurred vision, denies pain Ears: deny: decreased hearing, tinnitus Ears, nose, mouth and throat: Reports headache, Denies sore throat - Breasts Breasts: bilateral: as per HPI - Cardiovascular Cardiovascular: Reports high blood pressure, Denies chest pain, Denies shortness of breath - Respiratory Respiratory: Denies cough, Denies 7 - Gastrointestinal Gastrointestinal: Denies abdominal pain, Denies diarrhea, Denies nausea, Denies vomiting - Genitourinary (Female) Genitourinary: Reports kidney stones - Menstruation Menstruation: Reports cycle variable - Musculoskeletal Comment: fibromyalgia - Integumentary Comment: abcess site left breast - Neurological Neurological: Reports numbness, Denies weakness - Psychiatric Comment: bipolar - Endocrine Comment: diabetes - Hematologic/Lymphatic Comment: none - Allergic/Immunologic Allergic/Immunologic: Reports seasonal allergies Past Medical History Past Medical History: Diabetes Mellitus, Hypertension History of Any Multi-Drug Resistant Organisms: None Reported Past Surgical History: Appendectomy, Breast Surgery, Cholecystectomy, Tubal Ligation Additional Past Surgical History / Comment(s): carpal tunnel, dental, March 2019 abcess drainage left breast Past Psychological History: Bipolar Smoking Status: Current every day smoker Past Alcohol Use History: Occasional Past Drug Use History: None Reported Medications and Allergies Home Medications Medication Instructions Recorded Confirmed Type Sulfamethox-Tmp 800-160Mg [Bactrim 2 tab PO Q12HR 7 Days #14 tab 08/04/19 08/05/19 Rx DS 800-160 mg] Allergies Allergy/AdvReac Type Severity Reaction Status Date / Time capsaicin Allergy Rash/Hives Verified 08/04/19 19:01 Surgical - Exam BMI 41.1 - General obese - Eyes normal ocular movement - ENT no hearing loss, no congestion - Neck no masses, trachea midline - Respiratory normal respiratory effort, clear to auscultation - Cardiovascular Rhythm: regular Heart Sounds: normal: S1, S2 - Abdomen Abdomen: soft - Integumentary incision periaerolar region left breast - Neurologic no disoriented, no combative - Musculoskeletal normal gait, normal posture - Psychiatric oriented to time, oriented to person, oriented to place, speech is normal, memory intact Breast examination: Right breast: Multi-positional exam no dominant masses or nodules of concern Right axilla: No adenopathy of concern Left breast: Periareolar incision with palpation we were able to express a seropurulent fluid there is no definite opening noted no dominant masses or n odules of concern, tender periareolar area Left axilla: No adenopathy of concern Results ultrasound reviewed Assessment and Plan Assessment: Impression: 1. Borderline diabetic 2. bipolar 3. HTN 4. obesity recently lost 60 pounds 5. Recurrent abscess left breast 6. Ultrasound abnormality left breast abscess versus possible lesion for biopsy Plan: 1. Patient presently on Bactrim 2. Awaiting cultures 3. Ultrasound aspiration/biopsy area of concern left breast 4. Medical management of medical conditions CC: DR. Marin
== END ==
LOC: WWCWWP 14:53
PROVIDERS: ATTEND Surgery
DX: Z53.9 Procedure and treatment not carried out, unspecified reason (principal)

== ENCOUNTER → 2019-08-06 | Day surgery (SDC) | payer OTHER ==
[2019-08-06 09:05] VITALS: TEMP 98.1; BMI 40.1
[2019-08-06 11:19] VITALS: BP 115/72; PULSE 75
--- NOTE | 2019-08-06 11:42 | USB ---
EXAMINATION TYPE: US biopsy breast VAD LT DATE OF EXAM: 08/06/2019 CLINICAL HISTORY: N64.52, Left breast discharge. Nonhealing left breast abscess and pain TECHNIQUE: Ultrasound guided core biopsy of left breast. COMPARISON: 08/04/2019 left breast ultrasound and 04/19/2019 left breast ultrasound. FINDINGS: The procedure of ultrasound guided core biopsy was explained to the patient. Benefits, alternatives, and risks were discussed. An informed consent was then obtained. Preprocedural timeout was performed. The patient was placed in supine positioning for imaging and for the procedure. The overlying skin was prepped and draped in usual sterile fashion. 20 cc of 1% lidocaine without bicarbonate was used as anesthetic into the skin and subcutaneous tissue up to the retroareolar left breast biopsy with particular attention to the 9:00 position. Under ultrasound guidance, a 12-gauge vacuum assisted biopsy gun device was used to obtain 7 core samples. Following this, a coil-shaped biopsy marker was left at the site of biopsy. No postprocedural mammogram was done given the patient's active abscess and pain. The patient tolerated the procedure well without any immediate complication. The patient was kept in the radiology department for short stay after the procedure and then discharged home in stable condition. IMPRESSION: Successful, uncomplicated ultrasound guided core biopsy of solid appearing components within the left retroareolar abscess, full pathology results to follow. Samples were sent to the laboratory for analysis for both culture and sensitivity as well as core needle biopsies for cytology. Pathology Results: Benign LEFT BREAST, CORE BIOPSY: Fragments of squamous epithelium lined cyst with associated keratin material, scar/fibrosis, inflammation, fat necrosis, and abscess consistent with ruptured epidermal inclusion cyst. Recommendation Surgical consult of the left breast. 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 MTDD
== END ==
LOC: RADUSWWP 08:27
PROVIDERS: ATTEND Surgery
DX: N60.12 Diffuse cystic mastopathy of left breast (principal); N64.1 Fat necrosis of breast; N61.1 Abscess of the breast and nipple; R92.8 Other abnormal and inconclusive findings on diagnostic imaging of breast; Z88.8 Allergy status to other drugs, medicaments and biological substances
CPT/HCPCS: 88305; 87070; 87205; 87077; 87186; 19083; A4648; J2001

== ENCOUNTER 2019-08-08 11:16 | Emergency (ER) | payer OTHER ==
[2019-08-08] MEDS ORDERED: KETOROLAC 30 MG/ML 1 ML VIAL IVP STA (11:48)
--- NOTE | 2019-08-08 12:07 | ED ---
Skin/Abscess/FB HPI - General Chief complaint: Skin/Abscess/Foreign Body Stated complaint: Lt breast soreness/abcess Time Seen by Provider: 08/08/19 11:25 Source: patient Mode of arrival: ambulatory Limitations: no limitations - History of Present Illness Initial comments: Patient is a 44-year-old female presenting to emergency Department with complaints of pain from her left breast 1 day. Patient was in the ER 4 days ago for similar issue. Patient was then seen by Dr. Familia Mendez the following day. The patient then had a biopsy performed 2 days ago. Patient is awaiting results of the biopsy. Patient was started on Bactrim 4 days ago. Patient states she was doing well until last night when the pain in her left breast has increased and is now radiating into her left armpit. Patient states she has pain across the left arm motion. Patient states she has been taking Tylenol and Motrin without relief of pain. Patient denies any fever or chills. Patient denies any drainage from the incision site. Patient does have an appointment with Dr. Familia Mendez on 08/12/19. Patient has no other complaints at this time. Upon arrival to ER, vital signs stable, afebrile. - Related Data Previous Rx's Medication Instructions Recorded Sulfamethox-Tmp 800-160Mg [Bactrim 2 tab PO Q12HR 7 Days #14 tab 08/04/19 DS 800-160 mg] Cephalexin [Keflex] 500 mg PO Q6HR 7 Days #28 cap 08/08/19 Ketorolac [Toradol] 10 mg PO Q8HR #15 tab 08/08/19 Allergies Allergy/AdvReac Type Severity Reaction Status Date / Time capsaicin Allergy Rash/Hives Verified 08/08/19 11:24 Review of Systems ROS Statement: Those systems with pertinent positive or pertinent negative responses have been documented in the HPI. ROS Other: All systems not noted in ROS Statement are negative. Past Medical History Past Medical History: Diabetes Mellitus, Hypertension Additional Past Medical History / Comment(s): Diet controlled diabetes, no medication for HTN at this time. Pt has lost 60# History of Any Multi-Drug Resistant Organisms: None Reported Past Surgical History: Appendectomy, Breast Surgery, Cholecystectomy, Tubal Ligation Additional Past Surgical History / Comment(s): carpal tunnel, dental, abcess drainage left breast x2 (July) Past Anesthesia/Blood Transfusion Reactions: No Reported Reaction Additional Past Anesthesia/Blood Transfusion Reaction / Comment(s): No blood transfusion to date Past Psychological History: Bipolar Smoking Status: Current every day smoker Past Alcohol Use History: None Reported Past Drug Use History: None Reported General Exam - General Exam Comments Initial Comments: GENERAL: Well-appearing, well-nourished and in no acute distress. HEAD: Atraumatic, normocephalic. EYES: Pupils equal round and reactive to light, extraocular movements intact, sclera anicteric, conjunctiva are normal. ENT: TMs normal, nares patent, oropharynx clear without exudates. Moist mucous membranes. NECK: Normal range of motion, supple without lymphadenopathy or JVD. LUNGS: Breath sounds clear to auscultation bilaterally and equal. No wheezes rales or rhonchi. HEART: Regular rate and rhythm without murmurs, rubs or gallops. ABDOMEN: Soft, nontender, normoactive bowel sounds. No guarding, no rebound. No masses appreciated. : Deferred EXTREMITIES: Normal range of motion, no pitting or edema. No clubbing or cyanosis. NEUROLOGICAL: Cranial nerves II through XII grossly intact. Normal speech, normal gait. PSYCH: Normal mood, normal affect. SKIN: Warm, Dry, normal turgor, no rashes. Patient has mild erythema surrounding her left breast and nipple. Patient has pain with palpation of the entire left breast. There is no active drainage at this time. There is a small incisions site from a recent biopsy that does not appear to be infected. There is some mild warmth to the area. Limitations: no limitations Course Vital Signs 08/08/19 08/08/19 11:21 12:22 Temperature 98.7 F Pulse Rate 87 Respiratory 18 17 Rate Blood Pressure 147/92 O2 Sat by Pulse 98 Oximetry Medical Decision Making - Medical Decision Making Patient is a 44-year-old female presenting with left breast pain since last night. Patient is currently taking Bactrim for breast abscess. Patient had biopsy done by Dr. Familia Mendez 2 days ago. She is rate awaiting the results. Patient states last night her pain has increased and is having pain with left arm motion. On exam patient has tenderness of the entire left breast, mild erythema. No active drainage at this time. Patient denies any fever, chills. Vital signs stable upon arrival. CBC shows slightly leukocytosis of 11.9. CMP is normal, lactic acid 0.8. Recent imaging and culture results were reviewed. Patient will be started on Keflex in addition to the Bactrim. Patient will be given Toradol and time out 3 started pack to go home with. Patient is stable fo r discharge at this time and she is in agreement with this plan of care. Patient will follow-up with Dr. Familia Mendez early next week. Patient has an appointment on however will try to get in sooner. Return parameters were discussed with the patient she verbalized understanding. Case discussed with Dr. Hyman. - Lab Data Result diagrams: 08/08/19 11:50 08/08/19 11:50 Lab Results 08/08/19 08/08/19 08/08/19 Range/Units 11:50 11:50 11:50 WBC 11.9 H (3.8-10.6) k/uL RBC 5.10 (3.80-5.40) m/uL Hgb 15.8 (11.4-16.0) gm/dL Hct 45.3 (34.0-46.0) % MCV 88.9 (80.0-100.0) fL MCH 31.0 (25.0-35.0) pg MCHC 34.8 (31.0-37.0) g/dL RDW 16.1 H (11.5-15.5) % Plt Count 123 L (150-450) k/uL Neutrophils % 57 % Lymphocytes % 29 % Monocytes % 7 % Eosinophils % 3 % Basophils % 2 % Neutrophils # 6.8 (1.3-7.7) k/uL Lymphocytes # 3.5 (1.0-4.8) k/uL Monocytes # 0.9 (0-1.0) k/uL Eosinophils # 0.3 (0-0.7) k/uL Basophils # 0.2 (0-0.2) k/uL Anisocytosis Slight Sodium 139 (137-145) mmol/L Potassium 4.3 (3.5-5.1) mmol/L Chloride 108 H (98-107) mmol/L Carbon Dioxide 21 L (22-30) mmol/L Anion Gap 10 mmol/L BUN 11 (7-17) mg/dL Creatinine 0.68 (0.52-1.04) mg/dL Est GFR (CKD-EPI)AfAm >90 (>60 ml/min/1.73 sqM) Est GFR (CKD-EPI)NonAf >90 (>60 ml/min/1.73 sqM) Glucose 81 (74-99) mg/dL Plasma Lactic Acid Tristin 0.8 (0.7-2.0) mmol/L Calcium 9.2 (8.4-10.2) mg/dL Total Bilirubin 1.1 (0.2-1.3) mg/dL AST 69 H (14-36) U/L ALT 84 H (9-52) U/L Alkaline Phosphatase 99 (38-126) U/L Total Protein 7.7 (6.3-8.2) g/dL Albumin 4.3 (3.5-5.0) g/dL Disposition Clinical Impression: Abscess of breast, Breast pain, left Disposition: HOME SELF-CARE Condition: Stable Instructions (If sedation given, give patient instructions): Abscess (ED) Additional Instructions: Please return to the Emergency Department if symptoms worsen or any other c oncerns. Follow-up with Dr. Familia Mendez as discussed. Prescriptions: Cephalexin [Keflex] 500 mg PO Q6HR 7 Days #28 cap Ketorolac [Toradol] 10 mg PO Q8HR #15 tab Is patient prescribed a controlled substance at d/c from ED?: No Referrals: None,Stated [Primary Care Provider] - 1-2 days
[2019-08-08 12:08] LABS: Anisocytosis Slight; Basophils # (A) 0.2 k/uL (0-0.2); Basophils % (A) 2 %; Eosinophils # (A) 0.3 k/uL (0-0.7); Eosinophils % (A) 3 %; HCT 45.3 % (34.0-46.0); HGB 15.8 gm/dL (11.4-16.0); Lymphocytes # (A) 3.5 k/uL (1.0-4.8); Lymphocytes % (A) 29 %; MCHC 34.8 g/dL (31.0-37.0); MCV 88.9 fL (80.0-100.0); Mean Platelet Volume 9.3; Monocytes # (A) 0.9 k/uL (0-1.0); Monocytes % (A) 7 %; Neutrophils # (A) 6.8 k/uL (1.3-7.7); Neutrophils % (A) 57 %; Platelet Count 123 k/uL (150-450); RDW 16.1 % (11.5-15.5); WBC 11.9 k/uL (3.8-10.6)
[2019-08-08 12:15] LABS: ALT 84 U/L (9-52); AST 69 U/L (14-36); African American GFR (CKD) >90 (>60 ml/min/1.73 sqM); Albumin 4.3 g/dL (3.5-5.0); Alkaline Phosphatase 99 U/L (38-126); Anion Gap 10 mmol/L; Calcium 9.2 mg/dL (8.4-10.2); Carbon Dioxide 21 mmol/L (22-30); Chloride 108 mmol/L (98-107); Sodium 139 mmol/L (137-145); Total Protein 7.7 g/dL (6.3-8.2)
[2019-08-08 12:16] LABS: Blood Urea Nitrogen 11 mg/dL (7-17); Glucose 81 mg/dL (74-99); Total Bilirubin 1.1 mg/dL (0.2-1.3)
[2019-08-08 12:30] LABS: Potassium 4.3 mmol/L (3.5-5.1)
[2019-08-08] MEDS ORDERED: ACET/COD 300 MG/30 MG STARTER PACK 6 TAB BTL PO STA (13:06)
[2019-08-08 13:20] VITALS: BP 122/84; PULSE 71; RESP 16; TEMP 98.2
== END 2019-08-08 13:15 | disposition home or self-care (01) ==
LOC: EC 11:16
DX: N61.1 Abscess of the breast and nipple (principal); Z88.8 Allergy status to other drugs, medicaments and biological substances; F17.200 Nicotine dependence, unspecified, uncomplicated; Z98.51 Tubal ligation status
CPT/HCPCS: 36415; 80053; 83605; 85025; 99283; 96374; J1885

== ENCOUNTER 2019-08-10 15:15 | Observation (INO) | payer OTHER ==
[2019-08-10 15:43] LABS: Glucose,Whole Blood 103 mg/dL (75-99)
[2019-08-10] MEDS ORDERED: LACTATED RINGERS 1,000 ML IV ONE ×2 (15:44→18:38)
[2019-08-10] MEDS ORDERED: LIDOCAINE 1% 20 ML VIAL (10MG/ML) FOR IV START INTRADERMA ONE (15:44)
[2019-08-10] MEDS ORDERED: ONDANSETRON 4 MG/2 ML VIAL IVP ONE (16:03)
[2019-08-10] MEDS ORDERED: DEXAMETHASONE SOD PHOSPHATE 10 MG/ML 1 ML VIAL IV ONE (16:03)
[2019-08-10] MEDS ORDERED: HEPARIN SODIUM,PORCINE 5,000 UNIT/ML 1 ML VIAL SQ ONE (17:24)
[2019-08-10] MEDS ORDERED: MIDAZOLAM 2 MG/2 ML VIAL ONE (17:36)
[2019-08-10] MEDS ORDERED: HYDROmorphone (PF) 1 MG/ML ONE (17:36)
[2019-08-10] MEDS ORDERED: SUCCINYLCHOLINE CHLORIDE 100 MG/5 ML SYR IV ONE (17:36)
[2019-08-10] MEDS ORDERED: PROPOFOL 10 MG/ML 20 ML VIAL IV ONE (17:36)
[2019-08-10] MEDS ORDERED: KETOROLAC 30 MG/ML 1 ML VIAL ONE (17:36)
[2019-08-10] MEDS ORDERED: LIDOCAINE 1% INJ 10MG/ML (20 ML MDV) ONE (17:36)
[2019-08-10] MEDS ORDERED: fentaNYL (PF) 50 MCG/ML 2 ML AMP ONE (17:36)
--- NOTE | 2019-08-10 18:15 | P.OP ---
Date of Procedure: 08/10/19 Preoperative Diagnosis: Loculated left breast abscess Postoperative Diagnosis: Same Procedure(s) Performed: Incision and drainage of left breast abscess Anesthesia: NASH Surgeon: Maren Fajardo Estimated Blood Loss (ml): 5 IV fluids (ml): 600 Pathology: none sent Condition: stable Disposition: PACU Indications for Procedure: Enlarging left breast phlegmon/abscess despite ultrasound aspiration Operative Findings: Approximately 8-10 mL of purulent drainage Description of Procedure: The patient is a 44-year-old white female who presented with a left breast abscess. She initially had an attempt at ultrasound drainage however the area became more firm and tender. She presented to the emergency room and was started on Keflex she had previously been on Bactrim. She was seen in the office today with increasing fluctuance and tenderness of the left breast posteriorly area extending into the medial aspect of the breast. The patient was taken to the operating room and following induction of anesthesia the left breast was prepped and draped in a sterile fashion. Periareolar incision was made and carried down through a thick walled cavity. Approximately 8-10 mL of purulent fluid was drained. Cultures were obtained. The area in the breast was loculated and the loculation was broken down using blunt finger dissection. The wound was then well irrigated using a liter of fluid. After assured that hemostasis was attained the wound was packed using iodoform gauze. The patient tolerated the procedure in stable condition. All instrument and sponge counts were correct at the end of the case.
[2019-08-10] MEDS ORDERED: NALOXONE 0.4 MG/ML 1 ML VIAL IV PRN (18:16)
[2019-08-10] MEDS ORDERED: CALCIUM CARBONATE 500 MG CHEWABLE PO PRN (18:16)
[2019-08-10] MEDS ORDERED: ONDANSETRON 4 MG/2 ML VIAL IVP PRN (18:16)
--- NOTE | 2019-08-10 18:16 | P.PN ---
Progress Note - Text Progress Note Date: 08/10/19 The patient is a 44-year-old white female who underwent incision and drainage of a left breast abscess. The area is erythematous and the patient is being admitted for IV antibiotics.
[2019-08-10] MEDS: HYDROmorphone 1 MG/ML 1 ML SYRINGE IVP ONE ×2 (18:42→18:51)
[2019-08-10 20:22] VITALS: BMI 39.6
[2019-08-10] MEDS: HYDROcodone/APAP 5-325MG 1 EACH TAB PO PRN (20:29)
[2019-08-10] MEDS: DEXTROSE 5%-0.45% NACL 1,000 ML IV SCH (21:51)
[2019-08-11] MEDS: HEPARIN SODIUM,PORCINE 5,000 UNIT/ML 1 ML VIAL SQ SCH ×4 (00:31→23:15)
[2019-08-11] MEDS: HYDROcodone/APAP 5-325MG 1 EACH TAB PO PRN ×5 (00:31→17:46)
[2019-08-11] MEDS: DEXTROSE 5%-0.45% NACL 1,000 ML IV SCH ×2 (05:39→12:59)
[2019-08-11 07:22] LABS: Basophils # (A) 0.1 k/uL (0-0.2); Basophils % (A) 0 %; Eosinophils # (A) 0.1 k/uL (0-0.7); Eosinophils % (A) 0 %; HCT 37.7 % (34.0-46.0); HGB 13.1 gm/dL (11.4-16.0); Lymphocytes # (A) 1.6 k/uL (1.0-4.8); Lymphocytes % (A) 9 %; MCH 31.1 pg (25.0-35.0); MCHC 34.7 g/dL (31.0-37.0); MCV 89.6 fL (80.0-100.0); Mean Platelet Volume 9.3; Monocytes # (A) 0.6 k/uL (0-1.0); Monocytes % (A) 4 %; Neutrophils # (A) 14.4 k/uL (1.3-7.7); Neutrophils % (A) 86 %; Platelet Count 105 k/uL (150-450); RDW 13.5 % (11.5-15.5); WBC 16.9 k/uL (3.8-10.6)
[2019-08-11] MEDS: HYDROmorphone 1 MG/ML 1 ML SYRINGE IVP PRN ×2 (12:02→23:20)
[2019-08-11 12:21] LABS: Glucose,Whole Blood 144 mg/dL (75-99)
[2019-08-11] MEDS: INSULIN ASPART (NovoLOG) 100 UNIT/ML VIAL SQ SCH ×3 (12:42→20:59)
--- NOTE | 2019-08-11 13:42 | P.PN ---
Subjective Progress Note Date: 08/11/19 Principal diagnosis: Postop day #1 I&D of abscess left breast Yovana is a 44-year-old white female postop day #1 I&D of abscess of the left breast. The patient states her discomfort is decreased. She has not had any fever. She is tolerating diet without difficulty. She does have a leukocytosis of 16.9. Objective - Vital Signs Vital signs: Vital Signs Temp 98.9 F 08/11/19 08:20 Pulse 68 08/11/19 08:20 Resp 16 08/11/19 08:20 BP 101/67 08/11/19 08:20 Pulse Ox 95 08/11/19 08:20 Intake & Output 08/10/19 08/11/19 08/11/19 18:59 06:59 18:59 Intake Total 1150 820 Output Total 5 600 Balance 1145 220 Weight 101.151 kg Intake: IV 1150 Oral 820 Output: Urine 600 Estimated Blood Loss 5 Other: # Voids 1 - Exam BMI 39.5 - Constitutional General appearance: Present: obese - EENT EENT Comment(s): poor dentition Eyes: Present: EOMI - Respiratory Details: Rhonchi left base - Cardiovascular Rhythm: regular Heart sounds: normal: S1, S2 - Integumentary Integumentary Comment(s): I&D site clean and dry Decreased erythema medial aspect of left breast - Psychiatric Psychiatric: Present: A&O x's 3, appropriate affect - Labs CBC & Chem 7: 08/11/19 06:58 Labs: Abnormal Lab Results - Last 24 Hours (Table) 08/10/19 08/11/19 08/11/19 Range/Units 15:40 06:58 12:19 WBC 16.9 H (3.8-10.6) k/uL Plt Count 105 L (150-450) k/uL Neutrophils # 14.4 H (1.3-7.7) k/uL POC Glucose (mg/dL) 103 H 144 H (75-99) mg/dL Microbiology - Last 24 Hours (Table) 08/10/19 18:05 Gram Stain - Preliminary Breast - Left Wound Culture - Preliminary 08/10/19 18:05 Anaerobic Culture - Preliminary Breast - Left Assessment and Plan Assessment: Impression: 1. Postop day #1 I&D left breast abscess 2. Decreased erythema left breast 3. Decreased pain left breast 4. leukocytosis Plan: 1. Repeat CBC in a.m. 2. Continue present therapy 3. Dressing changes twice a day 4. Probable discharge home tomorrow depending on white count
--- NOTE | 2019-08-11 17:09 | P.CONS ---
History of Present Illness - Reason for Consult Consult date: 08/11/19 Medical management Requesting physician: Maren Fajardo - Chief Complaint Left breast abscess - History of Present Illness Consultation: This is a very pleasant 44-year-old patient who does not have a family doctor. Patient had diabetes but then she lost about 60 pounds. It's all diet controlled now. Also hypertension and is not taking any more medications becau se blood pressures better controlled. Also has bipolar disorder with predominantly depression that she manages with diet. About 3 years ago she was diagnosed to have breast infection was treated with surgery. March of this year she had another bout of infection. Dr. Estrella Barbosa did try ultrasound-guided drainage short time ago. Subsequently should go to the ER and started on Keflex. She was then seen in the office of Dr. Estrella Barbosa fall and because of his increasing fluctuance and tenderness of the left breast posteriorly patient was taken to the OR and about 10 mL of purulent fluid was drained. Rashes were sent off. Also there was some loculation that was broken down with blunt dissection and finger dissection. Patient's current dressing over the same. Currently no fever no chills. On antibiotics. Review of systems: GEN.: None EYES: None HEENT: None NECK: None RESPIRATORY: Occasional wheezing CARDIOVASCULAR: None GASTROINTESTINAL: None GENITOURINARY: None MUSCULOSKELETAL: None LYMPHATICS: None HEMATOLOGICAL: None PSYCHIATRY: None NEUROLOGICAL: None Past medical history to include: Diabetes not anymore medications, hypertension not anymore on medications; patient lost 60 pounds, breast infection, bipolar disorder with predominant depression Social history: Alcohol occasionally, does smoke anywhere from half to a pack a day. . Works at [employer] Family history: Schizophrenia, cervical cancer Physical examination: VITAL SIGNS: 98.9, 68, 16, 101/67, 95% room air GENERAL: BMI 39.5, laying in bed, not in distress. EYES: Pupils equal. Conjunctiva normal. HEENT: External appearance of nose and ears normal, oral cavity grossly normal. NECK: JVD not raised; masses not palpable. HEART: First and second heart sounds are normal; no edema. LUNGS: Respiratory rate normal; decreased breath sounds. ABDOMEN: Soft, nontender, liver spleen not palpable, no masses palpable. PSYCH: Alert and oriented x3; mood and affect normal. NEUROLOGICAL: Cranial nerves grossly intact; no facial asymmetry, power and sensation grossly intact. LYMPHATICS: No lymph nodes palpable in the axilla and neck CHEST wall: Patient has dressing over the left breast and is also wearing a surgical bra INVESTIGATIONS, reviewed in the clinical context: White count 16.9 hemoglobin 13.1 platelets 105 Assessment: -Left breast abscess, having failed outpatient treatment status post I&D -Obesity BMI 39.5 -Chronic nicotine dependence patient cigarette smoker Plan: Patient is on IV Ancef, subcu heparin for DVT prophylaxis. Accu-Cheks are being followed. Care was was discussed with the patient. Counseled about smoking at length. Await culture results. Encouraged to be out of bed Thank you Dr. Estrella Mendez Smoke cessation counseling: This was done with the patient. Nicotine patch is being given. More than 3 minutes was spent for this Past Medical History Past Medical History: Diabetes Mellitus, Hypertension Additional Past Medical History / Comment(s): Diet controlled diabetes, no medic ation for HTN at this time. Pt has lost 60# History of Any Multi-Drug Resistant Organisms: None Reported Past Surgical History: Appendectomy, Breast Surgery, Cholecystectomy, Tubal Ligation Additional Past Surgical History / Comment(s): carpal tunnel, dental, abcess drainage left breast x2 (July 2016, March 2019, Aug 2019) Past Anesthesia/Blood Transfusion Reactions: No Reported Reaction Additional Past Anesthesia/Blood Transfusion Reaction / Comm: No blood transfusion to date Past Psychological History: Bipolar, Depression Additional Psychological History / Comment(s): Maintained with healthy coping mechanisms; diet and exericse (only suffers from depressive disorder, not the manic type) Smoking Status: Current every day smoker Past Alcohol Use History: Rare Past Drug Use History: None Reported - Past Family History Mother Additional Family Medical History / Comment(s): schizophrenia, cervical cancer Medications and Allergies Home Medications Medication Instructions Recorded Confirmed Type Sulfamethox-Tmp 800-160Mg [Bactrim 2 tab PO Q12HR 7 Days #14 tab 08/04/19 08/10/19 Rx DS 800-160 mg] Cephalexin [Keflex] 500 mg PO Q6HR 7 Days #28 cap 08/08/19 08/10/19 Rx Allergies Allergy/AdvReac Type Severity Reaction Status Date / Time capsaicin Allergy Rash/Hives Verified 08/10/19 09:53 Physical Exam Vitals: Vital Signs Temp Pulse Pulse Resp BP BP Pulse Ox 08/11/19 08:20 98.9 F 68 16 101/67 95 08/10/19 23:19 98.4 F 79 18 109/73 96 08/10/19 22:19 74 95/62 95 08/10/19 21:31 82 16 119/84 95 08/10/19 21:19 80 112/76 94 L 08/10/19 20:49 75 16 131/86 93 L 08/10/19 20:19 90 16 121/85 94 L 08/10/19 20:05 84 16 117/61 95 08/10/19 19:49 77 16 109/69 95 08/10/19 19:18 98.6 F 81 16 115/79 93 L 08/10/19 19:01 78 16 131/73 96 08/10/19 18:45 86 16 142/74 96 08/10/19 18:31 79 18 146/71 99 08/10/19 18:21 97 F L 97 18 173/85 95 08/10/19 15:45 98.2 F 84 134/71 96 Intake and Output 08/10/19 08/11/19 08/11/19 22:59 06:59 14:59 Intake Total 1150 820 Output Total 205 400 Balance 945 420 Intake: IV 1150 Oral 820 Output: Urine 200 400 Estimated Blood Loss 5 Other: # Voids 1 1 Weight 101.151 kg Results CBC & Chem 7: 08/11/19 06:58 Labs: Abnormal Lab Results - Last 24 Hours (Table) 08/10/19 08/11/19 08/11/19 Range/Units 15:40 06:58 12:19 WBC 16.9 H (3.8-10.6) k/uL Plt Count 105 L (150-450) k/uL Neutrophils # 14.4 H (1.3-7.7) k/uL POC Glucose (mg/dL) 103 H 144 H (75-99) mg/dL Microbiology - Last 24 Hours (Table) 08/10/19 18:05 Gram Stain - Preliminary Breast - Left Wound Culture - Preliminary 08/10/19 18:05 Anaerobic Culture - Preliminary Breast - Left
[2019-08-11 17:45] LABS: Glucose,Whole Blood 136 mg/dL (75-99)
[2019-08-11] MEDS: NICOTINE 21MG/24HR PATCH TRANSDERM SCH (17:53)
[2019-08-11 18:49] LABS: Hemoglobin A1C 5.7 % (4.0-6.0)
[2019-08-11 20:35] LABS: Glucose,Whole Blood 198 mg/dL (75-99)
[2019-08-12] MEDS: DEXTROSE 5%-0.45% NACL 1,000 ML IV SCH ×2 (00:55→10:49)
[2019-08-12] MEDS: HYDROcodone/APAP 5-325MG 1 EACH TAB PO PRN (07:23)
[2019-08-12 07:42] LABS: Glucose,Whole Blood 94 mg/dL (75-99)
--- NOTE | 2019-08-12 07:43 | P.PN ---
Subjective Progress Note Date: 08/12/19 Principal diagnosis: Postop day #2 I&D of abscess left breast Yovana is a 44-year-old white female postop day #2 I&D of abscess of the left breast. The patient states her discomfort is decreased. She has not had any fever. She is tolerating diet without difficulty. She did have a leukocytosis of 16.9 we're waiting laboratory studies today. Objective - Vital Signs Vital signs: Vital Signs Temp 98.6 F 08/11/19 23:15 Pulse 63 08/11/19 23:15 Resp 18 08/11/19 23:15 BP 110/59 08/11/19 23:15 Pulse Ox 96 08/11/19 23:15 Intake & Output 08/11/19 08/12/19 08/12/19 18:59 06:59 18:59 Intake Total 500 Balance 500 Intake: Oral 500 Other: Voiding Method Toilet # Voids 2 3 - Exam BMI 39.5 - Constitutional General appearance: Present: obese - EENT Eyes: Present: EOMI ENT: Present: hearing grossly normal - Respiratory Respiratory: bilateral: CTA - Cardiovascular Rhythm: regular Heart sounds: normal: S1, S2 - Integumentary Integumentary Comment(s): Decreased erythema of left breast No evidence of drainage at I&D site - Labs CBC & Chem 7: 08/11/19 06:58 Labs: Abnormal Lab Results - Last 24 Hours (Table) 08/11/19 08/11/19 08/11/19 Range/Units 12:19 17:42 20:25 POC Glucose (mg/dL) 144 H 136 H 198 H (75-99) mg/dL Microbiology - Last 24 Hours (Table) 08/10/19 18:05 Gram Stain - Preliminary Breast - Left Wound Culture - Preliminary Assessment and Plan Assessment: Impression: 1. Postop day #2 I&D left breast abscess 2. Decreased erythema left breast 3. Decreased pain left breast 4. leukocytosis yesterday awaiting repeat CBC Plan: 1. awaiting CBC results 2. Continue present therapy 3. Dressing changes twice a day 4. Probable discharge home depending on white count
--- NOTE | 2019-08-12 07:44 | P.DS ---
Providers Date of admission: 08/11/19 17:10 Attending physician: Maren Fajardo Consults: 08/10/19 18:19 Consult Physician Routine Consulting Provider: Jesus Brown Consult Reason/Comments: medical managment Do you want consulting provider notified?: Yes Primary care physician: Stated None Plan - Discharge Summary New Discharge Prescriptions: No Action Sulfamethox-Tmp 800-160Mg [Bactrim DS 800-160 mg] 2 tab PO Q12HR 7 Days #14 tab Cephalexin [Keflex] 500 mg PO Q6HR 7 Days #28 cap Discharge Medication List Sulfamethox-Tmp 800-160Mg [Bactrim DS 800-160 mg] 2 tab PO Q12HR 7 Days #14 tab 08/04/19 [Rx] Cephalexin [Keflex] 500 mg PO Q6HR 7 Days #28 cap 08/08/19 [Rx] Follow up Appointment(s)/Referral(s): [facility] [NON-STAFF] - As Needed (This is the information for the supply company. ) Maren Fajardo MD [STAFF PHYSICIAN] - 1 Week Activity/Diet/Wound Care/Special Instructions: Packing changed twice a day Do not drive until seen by Dr. Barbosa Discharge depending on repeat CBC Discharge Disposition: HOME SELF-CARE
[2019-08-12] MEDS: HEPARIN SODIUM,PORCINE 5,000 UNIT/ML 1 ML VIAL SQ SCH (08:30)
[2019-08-12 09:08] LABS: Basophils % (A) 0 %; Eosinophils # (A) 0.1 k/uL (0-0.7); Eosinophils % (A) 1 %; HCT 38.3 % (34.0-46.0); HGB 12.4 gm/dL (11.4-16.0); Lymphocytes # (A) 2.8 k/uL (1.0-4.8); Lymphocytes % (A) 34 %; MCH 29.4 pg (25.0-35.0); MCHC 32.4 g/dL (31.0-37.0); MCV 90.6 fL (80.0-100.0); Mean Platelet Volume 9.2; Monocytes # (A) 0.3 k/uL (0-1.0); Monocytes % (A) 4 %; Neutrophils % (A) 60 %; Platelet Count 108 k/uL (150-450); RBC 4.23 m/uL (3.80-5.40); RDW 14.8 % (11.5-15.5); WBC 8.3 k/uL (3.8-10.6)
[2019-08-12 09:19] VITALS: BP 98/66; PULSE 69; RESP 16; TEMP 98.7
[2019-08-12] MEDS: INSULIN ASPART (NovoLOG) 100 UNIT/ML VIAL SQ SCH ×2 (09:22→13:57)
[2019-08-12] MEDS: NICOTINE 21MG/24HR PATCH TRANSDERM SCH (09:22)
[2019-08-12 09:30] LABS: African American GFR (CKD) >90 (>60 ml/min/1.73 sqM); Anion Gap 7 mmol/L; Blood Urea Nitrogen 11 mg/dL (7-17); Calcium 8.5 mg/dL (8.4-10.2); Carbon Dioxide 26 mmol/L (22-30); Chloride 106 mmol/L (98-107); Glucose 155 mg/dL (74-99); Sodium 139 mmol/L (137-145)
[2019-08-12] MEDS: HYDROmorphone 1 MG/ML 1 ML SYRINGE IVP PRN (11:18)
[2019-08-12 12:20] LABS: Glucose,Whole Blood 85 mg/dL (75-99)
--- NOTE | 2019-08-12 20:42 | P.PN ---
Progress Note - Text Progress Note Date: 08/12/19 - Chief Complaint Left breast abscess Interval history: This is a very pleasant 44-year-old patient who does not have a family doctor. Patient had diabetes but then she lost about 60 pounds. It's all diet controlled now. Also hypertension and is not taking any more medications because blood pressures better controlled. Also has bipolar disorder with predominantly depression that she manages with diet. About 3 years ago she was diagnosed to have breast infection was treated with surgery. March of this year she had another bout of infection. Dr. Estrella Barbosa did try ultrasound-guided drainage short time ago. Subsequently should go to the ER and started on Keflex. She was then seen in the office of Dr. Estrella Barbosa fall and because of his increasing fluctuance and tenderness of the left breast posteriorly patient was taken to the OR and about 10 mL of purulent fluid was drained. Rashes were sent off. Also there was some loculation that was broken down with blunt dissection and finger dissection. Today-sitting up. Feeling better. No new issues. Keen to go home. No fever no chills. Has been out of bed.. Review of systems: Was done for constitutional, cardiovascular, GI, pulmonary. relevant finding as above Current medications reviewed from today's electronic records Physical examination: VITAL SIGNS: 98.7, 69, 16, 98/66, 94% room air GENERAL: Sitting up propped up in bed, comfortable EYES: Pupils equal. Conjunctiva normal. HEENT: External appearance of nose and ears normal, oral cavity grossly normal. NECK: JVD not raised; masses not palpable. HEART: First and second heart sounds are normal; no edema. LUNGS: Respiratory rate normal; decreased breath sounds. ABDOMEN: Soft, nontender, liver spleen not palpable, no masses palpable. PSYCH: Alert and oriented x3; mood and affect normal. CHEST wall: Patient has dressing over the left breast and is also wearing a surgical bra INVESTIGATIONS, reviewed in the clinical context: White count 8.3 Wounds cultured-MSSA Previous testing White count 16.9 hemoglobin 13.1 platelets 105 Assessment: -Left breast abscess, having failed outpatient treatment status post I&D, with cultures growing MSSA -Obesity BMI 39.5 -Chronic nicotine dependence patient cigarette smoker Plan: Care was discussed with Dr. Estrella Barbosa 4. Patient will be sent home on Keflex. Other medications to continue. Patient yet again reminded about not to smoke. Thank you Dr. Estrella Mendez
== END 2019-08-12 13:59 | disposition home or self-care (01) ==
LOC: OR 15:15 → 6PED 18:21 → OR 08-11 15:55 → 6PED 08-11 17:10
PROVIDERS: ADMIT Surgery; ATTEND Surgery
DX: N61.1 Abscess of the breast and nipple (principal); A49.01 Methicillin susceptible Staphylococcus aureus infection, unspecified site; N60.19 Diffuse cystic mastopathy of unspecified breast; E66.9 Obesity, unspecified; Z68.39 Body mass index [BMI] 39.0-39.9, adult; F17.210 Nicotine dependence, cigarettes, uncomplicated; F31.9 Bipolar disorder, unspecified; I10 Essential (primary) hypertension; E11.9 Type 2 diabetes mellitus without complications; N92.6 Irregular menstruation, unspecified; R20.0 Anesthesia of skin; J30.2 Other seasonal allergic rhinitis; M79.7 Fibromyalgia; R61 Generalized hyperhidrosis; Z88.8 Allergy status to other drugs, medicaments and biological substances; Z98.51 Tubal ligation status; Z90.49 Acquired absence of other specified parts of digestive tract; Z87.442 Personal history of urinary calculi; Z80.3 Family history of malignant neoplasm of breast; Z80.0 Family history of malignant neoplasm of digestive organs; Z80.49 Family history of malignant neoplasm of other genital organs; Z81.8 Family history of other mental and behavioral disorders
CPT/HCPCS: 19020; 81025; 80048; 85025 ×2; 87070; 87205; 87075; 87077; 87186; 83036; G0378 ×2; J2250; J1644 ×2; J1100; J0690 ×3; J2405; J2001; J3010; J1885; J1170 ×3; J0330; J2704

== ENCOUNTER → 2019-08-10 | Outpatient (CLI) | payer OTHER ==
[2019-08-10 07:39] VITALS: BP 128/84; PULSE 72; RESP 18; TEMP 98.8; BMI 39.6
--- NOTE | 2019-08-10 08:39 | P.GSHP ---
History of Present Illness H&P Date: 08/10/19 Chief Complaint: Abscess left breast Patient is a 44-year-old white female who is status post incision and drainage in the operating room of the left breast abscess in March 2019. She did well following that until recently when she noticed some increased fullness in the left breast. The patient states she had noted drainage from her incision site approximately 7 days ago. The patient was seen in the emergency room Friday last week, and started on Bactrim. She was subsequently seen by me in the office and recommended to undergo ultrasound-guided aspiration. This was done on Friday of last week. The results of the aspiration revealed staph and this is sensitive to trimethoprim sulfamethoxazole as well as Cefazolin. The patient also had a core biopsy of the area which revealed fragments of squamous epithelium and Cyst with associated keratin material consistent with a ruptured epidermal inclusion cyst. The patient however following the aspiration states the area of the breast became more tender and she was again seen in the emergency room where she was started on Keflex. Patient denies any fever or chills. She states the area of the left breast has become increasingly swollen and tender. The patient has not had a mammogram in the last 4 years. The patient was started on Bactrim in the emergency room. Family History: mother: cervical cancer maternal uncle: stomach cancer maternal great aunt: breast cancer Hormonal history: Menarche:15 , breast fed: none. first at 26 periods irregular BCP: <1 year hormones: none Surgical history: 1. colposcopy 2. tubaligation 3. top teeth removed 4. carpal tunnel tighr 5. appy 6. gallbladder 7. breast abscess Medical history: 1. Borderline diabetic 2. bipolar 3. HTN 4. obesity recently lost 60 pounds Social History: smoke: 1/2 PPD alcohol: beer occasionally Drugs: Negative - Constitutional Constitutional: Reports sweats - EENT Eyes: denies blurred vision, denies pain Ears: deny: decreased hearing, tinnitus Ears, nose, mouth and throat: Reports headache - Breasts Breasts: bilateral: as per HPI - Cardiovascular Cardiovascular: Reports high blood pressure, Denies chest pain, Denies shortness of breath - Respiratory Comment: smoker - Gastrointestinal Gastrointestinal: Denies abdominal pain, Denies diarrhea, Denies nausea, Denies vomiting - Genitourinary (Female) Genitourinary: Reports kidney stones - Menstruation Comment: period irregular - Musculoskeletal Musculoskeletal: Reports myalgias - Integumentary Comment: abscesses at times Integumentary: Denies pruritus, Denies rash - Neurological Neurological: Reports numbness - Psychiatric Comment: bipolar - Endocrine Comment: Borderline diabetes - Hematologic/Lymphatic Comment: none - Allergic/Immunologic Allergic/Immunologic: Reports seasonal allergies Past Medical History Past Medical History: Diabetes Mellitus, Hypertension History of Any Multi-Drug Resistant Organisms: None Reported Past Surgical History: Appendectomy, Cholecystectomy, Tubal Ligation Additional Past Surgical History / Comment(s): carpal tunnel, dental Past Psychological History: Bipolar Smoking Status: Current every day smoker Past Alcohol Use History: Occasional Past Drug Use History: None Reported - Constitutional Constitutional: Reports sweats - EENT Eyes: denies blurred vision, denies pain Ears: deny: decreased hearing, tinnitus Ears, nose, mouth and throat: Reports headache, Denies sore throat - Breasts Breasts: bilateral: as per HPI - Cardiovascular Cardiovascular: Reports high blood pressure, Denies chest pain, Denies shortness of breath - Respiratory Respiratory: Denies cough, Denies 7 - Gastrointestinal Gastrointestinal: Denies abdominal pain, Denies diarrhea, Denies nausea, Denies vomiting - Genitourinary (Female) Genitourinary: Reports kidney stones - Menstruation Menstruation: Reports cycle variable - Musculoskeletal Comment: fibromyalgia - Integumentary Comment: abcess site left breast - Neurological Neurological: Reports numbness, Denies weakness - Psychiatric Comment: bipolar - Endocrine Comment: diabetes - Hematologic/Lymphatic Comment: none - Allergic/Immunologic Allergic/Immunologic: Reports seasonal allergies Past Medical History Past Medical History: Diabetes Mellitus, Hypertension History of Any Multi-Drug Resistant Organisms: None Reported Past Surgical History: Appendectomy, Breast Surgery, Cholecystectomy, Tubal Ligation Additional Past Surgical History / Comment(s): carpal tunnel, dental, March 2019 abcess drainage left breast Past Psychological History: Bipolar Smoking Status: Current every day smoker Past Alcohol Use History: Occasional Past Drug Use History: None Reported - Constitutional Constitutional: Reports sweats, Denies chills, Denies fever - EENT Eyes: denies blurred vision, denies pain Ears: deny: decreased hearing, tinnitus Ears, nose, mouth and throat: Denies headache, Denies sore throat - Breasts Breasts: bilateral: as per HPI - Cardiovascular Cardiovascular: Reports high blood pressure, Denies chest pain, Denies shortness of breath - Respiratory Comment: smoker Respiratory: Denies cough, Denies 7 - Gastrointestinal Gastrointestinal: Denies abdominal pain, Denies diarrhea, Denies nausea, Denies vomiting - Genitourinary (Female) Genitourinary: Reports kidney stones, Denies dysuria, Denies hematuria - Menstruation Menstruation: Reports cycle variable - Musculoskeletal Musculoskeletal: Denies myalgias - Integumentary Comment: as HPI - Neurological Neurological: Denies numbness, Denies weakness - Psychiatric Comment: bipolar - Endocrine Endocrine: Denies fatigue, Denies weight change - Hematologic/Lymphatic Comment: none - Allergic/Immunologic Allergic/Immunologic: Reports seasonal allergies Past Medical History Past Medical History: Diabetes Mellitus, Hypertension Additional Past Medical History / Comment(s): Diet controlled diabetes, no medication for HTN at this time. Pt has lost 60# History of Any Multi-Drug Resistant Organisms: None Reported Past Surgical History: Appendectomy, Breast Surgery, Cholecystectomy, Tubal Ligation Additional Past Surgical History / Comment(s): carpal tunnel, dental, abcess drainage left breast x2 (July) Past Anesthesia/Blood Transfusion Reactions: No Reported Reaction Additional Past Anesthesia/Blood Transfusion Reaction / Comment(s): No blood transfusion to date Past Psychological History: Bipolar Additional Psychological History / Comment(s): Maintained with healthy coping mechanisms; diet and exericse (only suffers from depressive disorder, not the manic type) Smoking Status: Current every day smoker Past Alcohol Use History: None Reported Past Drug Use History: None Reported Medications and Allergies Home Medications Medication Instructions Recorded Confirmed Type Sulfamethox-Tmp 800-160Mg [Bactrim 2 tab PO Q12HR 7 Days #14 tab 08/04/19 08/10/19 Rx DS 800-160 mg] Cephalexin [Keflex] 500 mg PO Q6HR 7 Days #28 cap 08/08/19 08/10/19 Rx Acetaminophen-Codeine 300-30mg 1 tab PO QID PRN 08/10/19 08/10/19 History [Tylenol w/codeine #3] Allergies Allergy/AdvReac Type Severity Reaction Status Date / Time capsaicin Allergy Rash/Hives Verified 08/10/19 07:41 Surgical - Exam Vital Signs Temp Pulse Resp BP Pulse Ox 98.8 F 72 18 128/84 98 08/10/19 07:33 08/10/19 07:33 08/10/19 07:33 08/10/19 07:33 08/10/19 07:33 BMI 39.7 - General obese - Eyes normal ocular movement - ENT poor dentition - Respiratory normal respiratory effort, clear to auscultation - Cardiovascular Rhythm: regular Heart Sounds: normal: S1, S2 - Abdomen Abdomen: soft - Integumentary Erythema medial aspect of left breast - Musculoskeletal normal gait, normal posture - Psychiatric oriented to time, oriented to person, oriented to place, speech is normal, memory intact Left breast examination periareolar erythema extending to the medial aspect of the breast, ecchymosis lateral aspect of the left breast There is fluctuance at the area with no drainage at this time Review of ultrasound from Friday did not reveal a fluid collection however this has changed on examination and the area appears to be fluctuant at this time Results Ultrasound reviewed of the left breast Cultures revealed staph 9819 Core biopsy 963 Assessment and Plan Assessment: Impression: 1. Left breast abscess/possible infected hematoma 2. Fibrocystic breast change 3. History of hidradenitis 4. Borderline diabetes 5. Hypertension 6. Bipolar 7. BMI 39.7 Plan: 1. Operative incision and drainage of fluctuant area left breast 2. Medical management of medical conditions I discussed with the possibly has an infected hematoma related to her prior abscess and attempted aspiration the ultrasound. The patient did not have any thing that can be drained however does appear to be fluctuant today has increased in size and is tender. The patient was given the option of I&D in the operating room and she understands the risks and benefits and wishes to proceed. Secondary to the fact it does feel fluctuant is not felt necessary to repeat an ultrasound. Cc: Dr. Marin
== END ==
LOC: WWCWWP 07:32
PROVIDERS: ATTEND Surgery
DX: Z53.9 Procedure and treatment not carried out, unspecified reason (principal)

== ENCOUNTER → 2019-08-19 | Outpatient (CLI) | payer OTHER ==
[2019-08-19 15:58] VITALS: BP 125/85; PULSE 75; RESP 20; TEMP 98.3; BMI 38.7
--- NOTE | 2019-08-19 15:59 | P.PN ---
Progress Note - Text Progress Note Date: 08/19/19 Yovana is a 44-year-old white female status post I&D of a left breast abscess on . Postoperatively she was admitted to the hospital for IV antibiotics. At the time of discharge her white blood cell count was 8.3. Cultures revealed many gram-positive cocci. This was sensitive to kefzol and the patient had been sent home on Kefzol. Physical exam: Lungs: Clear Heart: Regular rate and rhythm Left breast no evidence of any erythema the opening where the lesion was drained is small but able to still be packed no evident active infection at this time Impression: 1. Status post I&D of left breast abscess Plan: 1. Continue packing 2. Follow-up in 2 weeks 3. Follow up sooner if any questions or concerns
== END | disposition home or self-care (01) ==
LOC: WWCWWP 15:33
PROVIDERS: ATTEND Surgery
DX: Z53.9 Procedure and treatment not carried out, unspecified reason (principal)

== ENCOUNTER → 2019-09-03 | Outpatient (CLI) | payer OTHER ==
[2019-09-03 08:31] VITALS: BP 122/77; PULSE 82; RESP 18; TEMP 98.6; BMI 38.4
--- NOTE | 2019-09-03 08:49 | P.PN ---
Progress Note - Text Progress Note Date: 09/03/19 Yovana is a 44-year-old white female status post I&D of left breast abscess and . Postoperatively she was admitted to the hospital for IV antibiotics. She at this time is doing well. She was sent home on Keflex. The breast is no longer erythematous or tender. The patient states she has been unable to pack the area and it is closing over. PE: Left breast no evidence of any erythema of the breast I&D site very shallow, nothing specific to be packed Impression: 1. Status post I&D of left breast abscess there is some concern that this is closed superficially prior to the deep area being healed completely however at this time is no evidence of any infection Plan: 1. Continue present therapy 2. Follow-up in 1 week 3. 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
== END | disposition home or self-care (01) ==
LOC: WWCWWP 08:26
PROVIDERS: ATTEND Surgery
DX: Z53.9 Procedure and treatment not carried out, unspecified reason (principal)

== ENCOUNTER → 2019-09-16 | Outpatient (CLI) | payer OTHER ==
[2019-09-16 07:28] VITALS: BP 150/87; PULSE 72; RESP 20; TEMP 98.4; BMI 39.4
--- NOTE | 2019-09-16 08:07 | P.PN ---
Subjective Progress Note Date: 09/16/19 Principal diagnosis: left breast salvador Yen is a 44-year-old white female status post I&D of a left breast abscess on . Postoperatively she was admitted to the hospital for IV antibiotics. At the time of discharge her white blood cell count was 8.3. The patient was seen approximately 2 weeks ago with some drainage occurring again from the I&D site. That was packed and the patient presents today for repeat evaluation. At this time the patient hasn't had no further drainage. She has no fever or chills. She is doing well. Physical exam: Lungs: Clear Heart: Regular rate and rhythm I&D site clean and dry completely healed No evidence of any infection No evidence of any fluctuance No evidence of any erythema Impression: 1. Healed left breast abscess Plan: 1. Bilateral mammogram 2. Follow-up. After bilateral mammogram CC: Kut Objective - Vital Signs Vital signs: Vital Signs Temp 98.4 F 09/16/19 07:24 Pulse 72 09/16/19 07:24 Resp 20 09/16/19 07:24 BP 150/87 09/16/19 07:24 Pulse Ox 98 09/16/19 07:24 Intake & Output 09/15/19 09/16/19 09/16/19 18:59 06:59 18:59 Weight 101.151 kg
== END | disposition home or self-care (01) ==
LOC: WWCWWP 07:15
PROVIDERS: ATTEND Surgery
DX: Z53.9 Procedure and treatment not carried out, unspecified reason (principal)

== ENCOUNTER 2020-08-13 12:20 | Emergency (ER) | payer OTHER ==
[2020-08-13] MEDS ORDERED: KETOROLAC 15 MG/ML 1 ML VIAL IVP STA (12:51)
--- NOTE | 2020-08-13 13:12 | ED ---
General Adult HPI - General Chief complaint: Abdominal Pain Stated complaint: Female Time Seen by Provider: 08/13/20 12:29 Source: patient, RN notes reviewed Mode of arrival: ambulatory Limitations: no limitations - History of Present Illness Initial comments: 45-year-old female With a past medical history of NIDDM, hypertension, tubal ligation presents to the emergency room for a chief complaint of lower abdominal pain. Patient states she has had suprapubic pain for the past day. Reports that prior to that she has had vaginal bleeding for about 12 days. States it started out very light but she is now having to wear a pad. Patient has not had a period in a year and it was thought that she was perimenopausal. Patient denies fevers or chills. Denies nausea vomiting. Denies diarrhea.Patient has no other complaints at this time including shortness of breath, chest pain, abdominal pain, nausea or vomiting, headache, or visual changes. - Related Data Previous Rx's Medication Instructions Recorded Cephalexin [Keflex] 500 mg PO Q12H 10 Days #20 cap 08/13/20 Allergies Allergy/AdvReac Type Severity Reaction Status Date / Time capsaicin Allergy Rash/Hives Verified 08/13/20 14:05 Review of Systems ROS Statement: Those systems with pertinent positive or pertinent negative responses have been documented in the HPI. ROS Other: All systems not noted in ROS Statement are negative. Past Medical History Past Medical History: Diabetes Mellitus, Hypertension Additional Past Medical History / Comment(s): Diet controlled diabetes, no medication for HTN at this time. Pt has lost 60# History of Any Multi-Drug Resistant Organisms: None Reported Past Surgical History: Appendectomy, Breast Surgery, Cholecystectomy, Tubal Ligation Additional Past Surgical History / Comment(s): carpal tunnel, dental, abcess drainage left breast x2 (July 2016, March 2019, Aug 2019) Past Anesthesia/Blood Transfusion Reactions: No Reported Reaction Additional Past Anesthesia/Blood Transfusion Reaction / Comment(s): No blood transfusion to date Past Psychological History: Bipolar, Depression Smoking Status: Current every day smoker Past Alcohol Use History: None Reported Past Drug Use History: None Reported General Exam Limitations: no limitations General appearance: alert, in no apparent distress Head exam: Present: atraumatic, normocephalic, normal inspection Eye exam: Present: normal appearance, PERRL, EOMI. Absent: scleral icterus, conjunctival injection, periorbital swelling ENT exam: Present: normal exam, mucous membranes moist Neck exam: Present: normal inspection, full ROM. Absent: tenderness, meningismus, lymphadenopathy Respiratory exam: Present: normal lung sounds bilaterally. Absent: respiratory distress, wheezes, rales, rhonchi, stridor Cardiovascular Exam: Present: regular rate, normal rhythm, normal heart sounds. Absent: systolic murmur, diastolic murmur, rubs, gallop, clicks GI/Abdominal exam: Present: soft, tenderness (Suprapubic tenderness noted. There is no significant right lower quadrant or left lower quadrant tenderness. No upper abdominal tenderness.), normal bowel sounds. Absent: distended, guarding, rebound, rigid External exam: Present: normal external exam. Absent: erythema, swelling, lesions, lacerations, ecchymosis Speculum exam: Present: vaginal bleeding (Minimal vaginal bleeding). 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 Absent: normal by manual exam, cervical motion tenderness, adnexal mass, uterine enlargement, uterine tenderness Back exam: Absent: CVA tenderness (R), CVA tenderness (L) Course Vital Signs 08/13/20 12:25 Temperature 98.3 F Pulse Rate 79 Respiratory 18 Rate Blood Pressure 172/94 O2 Sat by Pulse 97 Oximetry Medical Decision Making - Medical Decision Making Vitals are stable. Physical exam does reveal some right-sided adnexal tenderness on pelvic exam. CBC is unremarkable. Hemoglobin is stable. CMP unremarkable. Urinalysis does show positive nitrites. Patient will be treated. Ultrasound pending. Ultrasound reveals a 2.9 cm left ovarian cyst and an endo metrial stripe of 6 mm. 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 She is agreeable to this. She will return for any worsening symptoms. - Lab Data Result diagrams: 08/13/20 13:03 08/13/20 13:03 Lab Results 08/13/20 08/13/20 08/13/20 Range/Units 13:03 13:03 13:03 WBC 7.1 (3.8-10.6) k/uL RBC 5.24 (3.80-5.40) m/uL Hgb 15.3 (11.4-16.0) gm/dL Hct 46.8 H (34.0-46.0) % MCV 89.3 (80.0-100.0) fL MCH 29.2 (25.0-35.0) pg MCHC 32.7 (31.0-37.0) g/dL RDW 13.4 (11.5-15.5) % Plt Count 104 L (150-450) k/uL Neutrophils % 54 % Lymphocytes % 34 % Monocytes % 5 % Eosinophils % 4 % Basophils % 1 % Neutrophils # 3.8 (1.3-7.7) k/uL Lymphocytes # 2.4 (1.0-4.8) k/uL Monocytes # 0.4 (0-1.0) k/uL Eosinophils # 0.3 (0-0.7) k/uL Basophils # 0.1 (0-0.2) k/uL Sodium (137-145) mmol/L Potassium (3.5-5.1) mmol/L Chloride (98-107) mmol/L Carbon Dioxide (22-30) mmol/L Anion Gap mmol/L BUN (7-17) mg/dL Creatinine (0.52-1.04) mg/dL Est GFR (CKD-EPI)AfAm (>60 ml/min/1.73 sqM) Est GFR (CKD-EPI)NonAf (>60 ml/min/1.73 sqM) Glucose (74-99) mg/dL Calcium (8.4-10.2) mg/dL Total Bilirubin (0.2-1.3) mg/dL AST (14-36) U/L ALT (4-34) U/L Alkaline Phosphatase (38-126) U/L Total Protein (6.3-8.2) g/dL Albumin (3.5-5.0) g/dL Urine Color Yellow Urine Appearance Cloudy H (Clear) Urine pH 5.5 (5.0-8.0) Ur Specific [place] 1.021 (1.001-1.035) Urine Protein Negative (Negative) Urine Glucose (UA) Negative (Negative) Urine Ketones Negative (Negative) Urine Blood Moderate H (Negative) Urine Nitrite Positive H (Negative) Urine Bilirubin Negative (Negative) Urine Urobilinogen <2.0 (<2.0) mg/dL Ur Leukocyte Esterase Large H (Negative) Urine RBC 4 (0-5) /hpf Urine WBC 37 H (0-5) /hpf Ur Squamous Epith Cells 10 H (0-4) /hpf Urine Bacteria Occasional H (None) /hpf Urine Mucus Moderate H (None) /hpf Urine HCG, Qual Not Detected (Not Detectd) Trichomonas Ag (Rapid) (Negative) 08/13/20 08/13/20 Range/Units 13:03 13:03 WBC (3.8-10.6) k/uL RBC (3.80-5.40) m/uL Hgb (11.4-16.0) gm/dL Hct (34.0-46.0) % MCV (80.0-100.0) fL MCH (25.0-35.0) pg MCHC (31.0-37.0) g/dL RDW (11.5-15.5) % Plt Count (150-450) k/uL Neutrophils % % Lymphocytes % % Monocytes % % Eosinophils % % Basophils % % Neutrophils # (1.3-7.7) k/uL Lymphocytes # (1.0-4.8) k/uL Monocytes # (0-1.0) k/uL Eosinophils # (0-0.7) k/uL Basophils # (0-0.2) k/uL Sodium 138 (137-145) mmol/L Potassium 4.4 (3.5-5.1) mmol/L Chloride 108 H (98-107) mmol/L Carbon Dioxide 21 L (22-30) mmol/L Anion Gap 9 mmol/L BUN 11 (7-17) mg/dL Creatinine 0.78 (0.52-1.04) mg/dL Est GFR (CKD-EPI)AfAm >90 (>60 ml/min/1.73 sqM) Est GFR (CKD-EPI)NonAf >90 (>60 ml/min/1.73 sqM) Glucose 116 H (74-99) mg/dL Calcium 9.1 (8.4-10.2) mg/dL Total Bilirubin 0.8 (0.2-1.3) mg/dL AST 82 H (14-36) U/L ALT 103 H (4-34) U/L Alkaline Phosphatase 115 (38-126) U/L Total Protein 7.4 (6.3-8.2) g/dL Albumin 4.2 (3.5-5.0) g/dL Urine Color Urine Appearance (Clear) Urine pH (5.0-8.0) Ur Specific [place] (1.001-1.035) Urine Protein (Negative) Urine Glucose (UA) (Negative) Urine Ketones (Negative) Urine Blood (Negative) Urine Nitrite (Negative) Urine Bilirubin (Negative) Urine Urobilinogen (<2.0) mg/dL Ur Leukocyte Esterase (Negative) Urine RBC (0-5) /hpf Urine WBC (0-5) /hpf Ur Squamous Epith Cells (0-4) /hpf Urine Bacteria (None) /hpf Urine Mucus (None) /hpf Urine HCG, Qual (Not Detectd) Trichomonas Ag (Rapid) Negative (Negative) Disposition Clinical Impression: UTI (urinary tract infection), Thickened endometrium, Ovarian cyst Disposition: HOME SELF-CARE Condition: Good Instructions (If sedation given, give patient instructions): Ovarian Cyst (ED), Urinary Tract Infection in Women (ED) Additional Instructions: Please take antibiotic as directed. Please follow-up with primary care reg arding ultrasound findings as well as UTI. If you have any worsening symptoms return here to the emergency room. Prescriptions: Cephalexin [Keflex] 500 mg PO Q12H 10 Days #20 cap Is patient prescribed a controlled substance at d/c from ED?: No Referrals: Andres Marin MD [REFERRING] - 1-2 days Time of Disposition: 14:32
[2020-08-13 13:23] LABS: Basophils # (A) 0.1 k/uL (0-0.2); Basophils % (A) 1 %; Eosinophils # (A) 0.3 k/uL (0-0.7); Eosinophils % (A) 4 %; HCT 46.8 % (34.0-46.0); HGB 15.3 gm/dL (11.4-16.0); Lymphocytes # (A) 2.4 k/uL (1.0-4.8); Lymphocytes % (A) 34 %; MCH 29.2 pg (25.0-35.0); MCHC 32.7 g/dL (31.0-37.0); MCV 89.3 fL (80.0-100.0); Mean Platelet Volume 10.4; Monocytes # (A) 0.4 k/uL (0-1.0); Monocytes % (A) 5 %; Neutrophils # (A) 3.8 k/uL (1.3-7.7); Neutrophils % (A) 54 %; Platelet Count 104 k/uL (150-450); RBC 5.24 m/uL (3.80-5.40); RDW 13.4 % (11.5-15.5); WBC 7.1 k/uL (3.8-10.6)
[2020-08-13 13:40] LABS: ALT 103 U/L (4-34); AST 82 U/L (14-36); African American GFR (CKD) >90 (>60 ml/min/1.73 sqM); Albumin 4.2 g/dL (3.5-5.0); Alkaline Phosphatase 115 U/L (38-126); Anion Gap 9 mmol/L; Blood Urea Nitrogen 11 mg/dL (7-17); Calcium 9.1 mg/dL (8.4-10.2); Carbon Dioxide 21 mmol/L (22-30); Chloride 108 mmol/L (98-107); Glucose 116 mg/dL (74-99); Non-African American GFR(CKD) >90 (>60 ml/min/1.73 sqM); Potassium 4.4 mmol/L (3.5-5.1); Sodium 138 mmol/L (137-145); Total Bilirubin 0.8 mg/dL (0.2-1.3); Total Protein 7.4 g/dL (6.3-8.2)
[2020-08-13 13:53] LABS: Appearance,Urine Cloudy (Clear); Bacteria,Urine Occasional /hpf; Bilirubin,Urine Negative (Negative); Blood,Urine Moderate (Negative); Color,Urine Yellow; Glucose,Urine (UA) Negative (Negative); Ketones,Urine Negative (Negative); Leukocyte Esterase,Urine Large (Negative); Mucus,Urine Moderate /hpf; Nitrite,Urine Positive (Negative); PH, Urine 5.5 (5.0-8.0); Protein,Urine Negative (Negative); RBC,Urine 4 /hpf (0-5); Specific Gravity,Urine 1.021 (1.001-1.035); Squamous Epithelial Cell,Urine 10 /hpf (0-4); Urobilinogen,Urine <2.0 mg/dL (<2.0); WBC,Urine 37 /hpf (0-5)
--- NOTE | 2020-08-13 14:09 | US ---
EXAMINATION TYPE: US transvaginal DATE OF EXAM: 08/13/2020 COMPARISON: NONE CLINICAL HISTORY: pain. Right pelvic pain x 3 days; vaginal spotting 2 weeks ago while patient stated LMP one year ago; ; cervical surgery 15 years ago. TECHNIQUE: Transvaginal sonographic images were medically necessary as patient's bladder not fully prepped and to better see color flow in bilateral ovaries. Date of LMP: one year ago EXAM MEASUREMENTS: Uterus: 7.4 x 5.3 x 4.3 cm Endometrial Stripe: 0.6 cm Right Ovary: 2.3 x 1.9 x 2.0 cm Left Ovary: 4.4 x 2.2 x 2.5 cm 1. Uterus: Anteverted; multiple Nabothian Cysts seen in cervix with largest = 0.6 x 0.6 x 0.6cm. 2. Endometrium: 6 mm. 3. Right Ovary: wnl, small follicles 4. Left Ovary: large follicular cyst = 1.9 x 1.9 x 2.9cm Spectral, color and waveform Doppler imaging shows good arterial and venous flow within the ovaries ; there is no evidence for ovarian torsion. 5. Bilateral Adnexa: wnl 6. Posterior cul-de-sac: wnl IMPRESSION: [place] 1. there is a 2.9 cm left ovarian cyst. 2. Endometrial stripe measures 6 mm and appears homogeneous. The patient reports that she has not had a menstrual period in 1 year correlate clinically.
[2020-08-13] MEDS ORDERED: cefTRIAXone IN SWFI 1,000 MG/10 ML SYRINGE IVP STA (14:15)
[2020-08-13 14:55] VITALS: BP 162/77; PULSE 72; RESP 16; TEMP 98
[2020-08-15 07:16] LABS: C. trachomatis,PCR Negative (Neg,Equiv); Chlamydia trachomatis Source Vagina; N. gonorrhoeae,PCR Negative (Neg,Equiv); Neisseria Source Vagina
== END 2020-08-13 14:54 | disposition home or self-care (01) ==
LOC: EC 12:20
DX: N39.0 Urinary tract infection, site not specified (principal); R93.89 Abnormal findings on diagnostic imaging of other specified body structures; N83.202 Unspecified ovarian cyst, left side; N93.9 Abnormal uterine and vaginal bleeding, unspecified; F17.200 Nicotine dependence, unspecified, uncomplicated; Z88.8 Allergy status to other drugs, medicaments and biological substances; Z90.49 Acquired absence of other specified parts of digestive tract
CPT/HCPCS: 36415; 80053; 85025; 81001; 81025; 87808; 87491; 87591; 87070; 87086; 93975; 76830; 96374; 96375; 99284; J0696; J1885

== ENCOUNTER 2021-03-01 11:41 | Emergency (ER) | payer OTHER ==
[2021-03-01 11:47] VITALS: TEMP 97.9
--- NOTE | 2021-03-01 11:49 | ED ---
General Adult HPI - General Source: patient, RN notes reviewed Mode of arrival: ambulatory Limitations: no limitations <Ben Arthur - Last Filed: 03/01/21 11:47> <Song Estevez - Last Filed: 03/01/21 15:32> - General Stated complaint: GRANT Time Seen by Provider: 03/01/21 11:43 - History of Present Illness Initial comments: 46-year-old female presents emergency Department chief complaint of shortness of breath. Patient states she was diagnosed with covid at the beginning of January states that she return to work a few days ago but states that she's been having exertional shortness of breath. She states she had a leave work twice because she cannot breathe. She states that it does come down when she sits down but states that she gets up she feels fluttering in her chest and shortness of breath. Patient is a daily smoker history of diabetes and hypertension. No recent fevers or chills. No abdominal complaints currently no history PE or DVT. (Ben Arthur) - Related Data Previous Rx's Medication Instructions Recorded Albuterol Inhaler [Ventolin Hfa 1 puff INHALATION RT-QID #1 unit 03/01/21 Inhaler] predniSONE 50 mg PO DAILY #5 tab 03/01/21 Allergies Allergy/AdvReac Type Severity Reaction Status Date / Time capsaicin Allergy Rash/Hives/ Verified 03/01/21 14:52 Swelling Review of Systems ROS Other: All systems not noted in ROS Statement are negative. <Ben Arthur - Last Filed: 03/01/21 11:47> ROS Other: All systems not noted in ROS Statement are negative. <Song Estevez - Last Filed: 03/01/21 15:32> ROS Statement: Those systems with pertinent positive or pertinent negative responses have been documented in the HPI. Past Medical History Past Medical History: Diabetes Mellitus, Hypertension Additional Past Medical History / Comment(s): Diet controlled diabetes, no medication for HTN at this time. Pt has lost 60#, COVID History of Any Multi-Drug Resistant Organisms: None Reported Past Surgical History: Appendectomy, Breast Surgery, Cholecystectomy, Tubal Ligation Additional Past Surgical History / Comment(s): carpal tunnel, dental, abcess drainage left breast x2 (July 2016, March 2019, Aug 2019) Past Anesthesia/Blood Transfusion Reactions: No Reported Reaction Additional Past Anesthesia/Blood Transfusion Reaction / Comment(s): No blood transfusion to date Past Psychological History: Bipolar, Depression Smoking Status: Current every day smoker Past Alcohol Use History: None Reported Past Drug Use History: None Reported <Ben Arthur - Last Filed: 03/01/21 11:47> General Exam Limitations: no limitations <Ben Arthur - Last Filed: 03/01/21 11:47> Course Vital Signs 03/01/21 03/01/21 11:42 14: Temperature 97.9 F Pulse Rate 78 68 Respiratory 22 18 Rate Blood Pressure 162/85 132/76 O2 Sat by Pulse 97 98 Oximetry EKG Findings - EKG Comments: EKG Findings:: EKG: Normal sinus rhythm, rate of 83, NC interval 114, QRS durat ion 94, QTC 474, no ST segment elevation, T waves are upright. <Song Estevez - Last Filed: 03/01/21 15:32> Medical Decision Making - Lab Data Result diagrams: 03/01/21 14:21 03/01/21 14:21 <Song Estevez - Last Filed: 03/01/21 15:32> - Medical Decision Making 46-year-old female current smoker, recent history of coronavirus presenting with exertional dyspnea. Patient well-appearing with stable vitals, normal oxygenation. She has a bronchospastic cough. X-ray performed shows a basilar infiltrate likely secondary to coronavirus. She has normal CBC, normal CMP with the exception of a mild transaminitis in the setting of previous c holecystectomy. She has a negative d-dimer, negative troponin. EKG sinus rhythm without ischemic changes. She will be prescribed albuterol, and prednisone. She will follow with her primary care physician. (Song Estevez) - Lab Data Lab Results 03/01/21 03/01/21 03/01/21 Range/Units 14:21 14:21 14:21 WBC 8.2 (3.8-10.6) k/uL RBC 4.90 (3.80-5.40) m/uL Hgb 14.8 (11.4-16.0) gm/dL Hct 43.6 (34.0-46.0) % MCV 89.1 (80.0-100.0) fL MCH 30.2 (25.0-35.0) pg MCHC 33.9 (31.0-37.0) g/dL RDW 13.5 (11.5-15.5) % Plt Count 96 L (150-450) k/uL MPV 10.1 Neutrophils % 74 % Lymphocytes % 18 % Monocytes % 5 % Eosinophils % 2 % Basophils % 1 % Neutrophils # 6.1 (1.3-7.7) k/uL Lymphocytes # 1.5 (1.0-4.8) k/uL Monocytes # 0.4 (0-1.0) k/uL Eosinophils # 0.1 (0-0.7) k/uL Basophils # 0.1 (0-0.2) k/uL Manual Slide Review Performed PT 11.1 (9.0-12.0) sec INR 1.0 (<1.2) APTT 24.4 (22.0-30.0) sec D-Dimer 0.35 (<0.60) mg/L FEU Sodium 138 (137-145) mmol/L Potassium 4.3 (3.5-5.1) mmol/L Chloride 108 H (98-107) mmol/L Carbon Dioxide 23 (22-30) mmol/L Anion Gap 7 mmol/L BUN 13 (7-17) mg/dL Creatinine 0.67 (0.52-1.04) mg/dL Est GFR (CKD-EPI)AfAm >90 (>60 ml/min/1.73 sqM) Est GFR (CKD-EPI)NonAf >90 (>60 ml/min/1.73 sqM) Glucose 89 (74-99) mg/dL Calcium 9.1 (8.4-10.2) mg/dL Total Bilirubin 0.9 (0.2-1.3) mg/dL AST 73 H (14-36) U/L ALT 96 H (4-34) U/L Alkaline Phosphatase 129 H (38-126) U/L Troponin I (0.000-0.034) ng/mL Total Protein 7.3 (6.3-8.2) g/dL Albumin 4.2 (3.5-5.0) g/dL 03/01/21 Range/Units 14:21 WBC (3.8-10.6) k/uL RBC (3.80-5.40) m/uL Hgb (11.4-16.0) gm/dL Hct (34.0-46.0) % MCV (80.0-100.0) fL MCH (25.0-35.0) pg MCHC (31.0-37.0) g/dL RDW (11.5-15.5) % Plt Count (150-450) k/uL MPV Neutrophils % % Lymphocytes % % Monocytes % % Eosinophils % % Basophils % % Neutrophils # (1.3-7.7) k/uL Lymphocytes # (1.0-4.8) k/uL Monocytes # (0-1.0) k/uL Eosinophils # (0-0.7) k/uL Basophils # (0-0.2) k/uL Manual Slide Review PT (9.0-12.0) sec INR (<1.2) APTT (22.0-30.0) sec D-Dimer (<0.60) mg/L FEU Sodium (137-145) mmol/L Potassium (3.5-5.1) mmol/L Chloride (98-107) mmol/L Carbon Dioxide (22-30) mmol/L Anion Gap mmol/L BUN (7-17) mg/dL Creatinine (0.52-1.04) mg/dL Est GFR (CKD-EPI)AfAm (>60 ml/min/1.73 sqM) Est GFR (CKD-EPI)NonAf (>60 ml/min/1.73 sqM) Glucose (74-99) mg/dL Calcium (8.4-10.2) mg/dL Total Bilirubin (0.2-1.3) mg/dL AST (14-36) U/L ALT (4-34) U/L Alkaline Phosphatase (38-126) U/L Troponin I <0.012 (0.000-0.034) ng/mL Total Protein (6.3-8.2) g/dL Albumin (3.5-5.0) g/dL Disposition <Ben Arthur - Last Filed: 03/01/21 11:47> Is patient prescribed a controlled substance at d/c from ED?: No Time of Disposition: 15:32 <Song Estevez - Last Filed: 03/01/21 15:32> Clinical Impression: Pneumonia due to COVID-19 virus Disposition: HOME SELF-CARE Condition: Fair Instructions (If sedation given, give patient instructions): Acute Bronchitis (ED), Coronavirus Disease 2019 (COVID-19) Prescriptions: predniSONE 50 mg PO DAILY #5 tab Albuterol Inhaler [Ventolin Hfa Inhaler] 1 puff INHALATION RT-QID #1 unit Referrals: None,Stated [Primary Care Provider] - 1-2 days Jerald Barbosa MD [STAFF PHYSICIAN] - 1-2 days
--- NOTE | 2021-03-01 13:12 | XR ---
EXAMINATION TYPE: XR chest 2V DATE OF EXAM: 03/01/2021 COMPARISON: 08/04/2019 HISTORY: sob and weakness TECHNIQUE: Frontal and lateral views of the chest are obtained. FINDINGS: Mild basilar interstitial prominence could reflect developing infiltrate. Correlate clinically. No evidence for pneumothorax. No pleural effusion. The cardiac silhouette size is within normal limits. The osseous structures are grossly intact. IMPRESSION: 1. Mild basilar interstitial prominence could reflect developing infiltrate. Correlate clinically.
[2021-03-01 14:22] VITALS: RESP 18
[2021-03-01 14:55] LABS: Basophils # (A) 0.1 k/uL (0-0.2); Basophils % (A) 1 %; Eosinophils # (A) 0.1 k/uL (0-0.7); Eosinophils % (A) 2 %; HCT 43.6 % (34.0-46.0); HGB 14.8 gm/dL (11.4-16.0); Lymphocytes # (A) 1.5 k/uL (1.0-4.8); Lymphocytes % (A) 18 %; MCH 30.2 pg (25.0-35.0); MCHC 33.9 g/dL (31.0-37.0); MCV 89.1 fL (80.0-100.0); Mean Platelet Volume 10.1; Monocytes # (A) 0.4 k/uL (0-1.0); Monocytes % (A) 5 %; Neutrophils # (A) 6.1 k/uL (1.3-7.7); Neutrophils % (A) 74 %; RDW 13.5 % (11.5-15.5); WBC 8.2 k/uL (3.8-10.6)
[2021-03-01 14:56] LABS: ALT 96 U/L (4-34); AST 73 U/L (14-36); African American GFR (CKD) >90 (>60 ml/min/1.73 sqM); Albumin 4.2 g/dL (3.5-5.0); Alkaline Phosphatase 129 U/L (38-126); Anion Gap 7 mmol/L; Blood Urea Nitrogen 13 mg/dL (7-17); Calcium 9.1 mg/dL (8.4-10.2); Carbon Dioxide 23 mmol/L (22-30); Chloride 108 mmol/L (98-107); D-Dimer 0.35 mg/L FEU (<0.60); Glucose 89 mg/dL (74-99); Non-African American GFR(CKD) >90 (>60 ml/min/1.73 sqM); Partial Thromboplastin Time 24.4 sec (22.0-30.0); Potassium 4.3 mmol/L (3.5-5.1); Prothrombin Time 11.1 sec (9.0-12.0); Sodium 138 mmol/L (137-145); Total Bilirubin 0.9 mg/dL (0.2-1.3); Total Protein 7.3 g/dL (6.3-8.2)
[2021-03-01 15:05] LABS: Platelet Count 96 k/uL (150-450)
[2021-03-01 15:39] VITALS: BP 135/67; PULSE 73
== END 2021-03-01 15:44 | disposition home or self-care (01) ==
LOC: EC 11:41
DX: U07.1 COVID-19 (principal); J12.82 Pneumonia due to coronavirus disease 2019; E11.9 Type 2 diabetes mellitus without complications; F17.200 Nicotine dependence, unspecified, uncomplicated; I10 Essential (primary) hypertension; F32.9 Major depressive disorder, single episode, unspecified
CPT/HCPCS: 36415; 71046; 80053; 84484; 85025; 85379; 85610; 85730; 93005; 99285

== ENCOUNTER 2021-05-20 17:41 | Emergency (ER) | payer BC, OTHER ==
--- NOTE | 2021-05-20 18:52 | ED ---
Skin/Abscess/FB HPI - General Chief complaint: Skin/Abscess/Foreign Body Stated complaint: Abcess on breast Time Seen by Provider: 05/20/21 17:52 Source: patient, RN notes reviewed Mode of arrival: ambulatory Limitations: no limitations - History of Present Illness Initial comments: Patient is a 46-year-old female that presents to emergency room with a right nipple abscess. She notes she does have a history of left nipple abscess which was surgically drained [address] Andrea Barbosa. She notes that she came in today due to increased pain and discomfort in her right nipple and breast. She noted that this started this morning. She noted that she was squeezing her nipple and yellow-green pus was coming out. She also noted that after squeezing for sometime blood cell,. She denied any history of breast cancer. She did not appear to be in any distress or pain while sitting up in bed during exam and interview. She denied any chest pain shortness of breath headache nausea vomiting diarrhea constipation fever fatigue chills. - Related Data Previous Rx's Medication Instructions Recorded Albuterol Inhaler [Ventolin Hfa 1 puff INHALATION RT-QID #1 unit 03/01/21 Inhaler] predniSONE 50 mg PO DAILY #5 tab 03/01/21 Sulfamethox-Tmp 800-160Mg [Bactrim 1 each PO Q12HR #20 tab 05/20/21 Ds] Allergies Allergy/AdvReac Type Severity Reaction Status Date / Time capsaicin Allergy Rash/Hives/ Verified 05/20/21 17:48 Swelling Review of Systems ROS Statement: Those systems with pertinent positive or pertinent negative responses have been documented in the HPI. ROS Other: All systems not noted in ROS Statement are negative. Past Medical History Past Medical History: Diabetes Mellitus, Hypertension Additional Past Medical History / Comment(s): Diet controlled diabetes, no medication for HTN at this time. Pt has lost 60#, COVID History of Any Multi-Drug Resistant Organisms: None Reported Past Surgical History: Appendectomy, Breast Surgery, Cholecystectomy, Tubal Ligation Additional Past Surgical History / Comment(s): carpal tunnel, dental, abcess drainage left breast x2 (July 2016, March 2019, Aug 2019) Past Anesthesia/Blood Transfusion Reactions: No Reported Reaction Additional Past Anesthesia/Blood Transfusion Reaction / Comment(s): No blood transfusion to date Past Psychological History: Bipolar, Depression Smoking Status: Former smoker Past Alcohol Use History: None Reported Past Drug Use History: None Reported General Exam Limitations: no limitations General appearance: alert, in no apparent distress, obese Head exam: Present: atraumatic, normocephalic, normal inspection Eye exam: Present: normal appearance, PERRL, EOMI. Absent: scleral icterus, conjunctival injection, periorbital swelling Neck exam: Present: normal inspection Respiratory exam: Present: normal lung sounds bilaterally. Absent: respiratory distress, wheezes, rales, rhonchi, stridor Cardiovascular Exam: Present: regular rate, normal rhythm, normal heart sounds. Absent: systolic murmur, diastolic murmur, rubs, gallop, clicks GI/Abdominal exam: Present: soft, normal bowel sounds. Absent: distended, tenderness, guarding, rebound, rigid Extremities exam: Present: normal inspection, full ROM, normal capillary refill. Absent: tenderness, pedal edema, joint swelling, calf tenderness Neurological exam: Present: alert, oriented X3, CN II-XII intact Psychiatric exam: Present: normal affect, normal mood Skin exam: Present: warm, dry, intact, normal color, erythema (Minimal erythema surrounding the right nipple.). Absent: rash Expanded Type of lesion: Present: abscess (To the right nipple, no fluctuance noted on palpation) Course Vital Signs 05/20/21 17:46 Temperature 97.9 F Pulse Rate 88 Respiratory 16 Rate Blood Pressure 150/95 O2 Sat by Pulse 98 Oximetry Medical Decision Making - Medical Decision Making 46-year-old female complaining of a right nipple abscess. Ultrasound of the right breast ordered. 4 mg of morphine given due to discomfort and pain during ultrasound. Ultrasound shows a 0.9 cm right adnexal area little lesion was suspicious features and a 0.5 cm cystic lesion in the right breast at the 9 o'clock position without suspicious features and may represent a small cyst versus fat necrosis. Case discussed with Dr. Batres, patient discharge with follow-up to specialist and NUCLEAR ENGINEERING TECHNICIAN. - Radiology Data Radiology results: report reviewed, image reviewed Ultrasound of the right breast: 0.9 cm right retroareolar lesion with suspicious features. Etiology is undetermined. Recommend mammographic correlation and/or biopsy for further evaluation. Additional 0.5 cm cystic lesion in the right breast at the 9 o'clock position without suspicious features and may represent a small cyst versus fat necrosis. Recommend follow-up to document stability resolution. Disposition Clinical Impression: Breast lesion Disposition: HOME SELF-CARE Condition: Stable Instructions (If sedation given, give patient instructions): Abscess (ED) Additional Instructions: Please return to the Emergency Department if symptoms worsen or any other concerns. Follow-up with Dr. Familia Mendez for suspicious lesion in right breast as soon as possible. Take antibiotic as prescribed until complete. Use warm compresses to alleviate some symptoms. Can take Tylenol Motrin as needed for pain control. Is patient prescribed a controlled substance at d/c from ED?: No Referrals: None,Stated [Primary Care Provider] - 1-2 days Time of Disposition: 19:58
[2021-05-20] MEDS ORDERED: MORPHINE SULFATE 4 MG/ML SYRINGE IM STA (19:14)
--- NOTE | 2021-05-20 19:49 | USB ---
Result: History: Right nipple pain with purulent discharge for 2 days. Fever Comparison: None available. Technique: Targeted grayscale and color Doppler ultrasound examination of right breast within the are a of concern was performed. Findings: There is a 0.9 x 0.9 x 0.9 cm round, hypoechoic retroareolar lesion with irregular margin and interna l flow. There is also a 0.5 x 0.5 x 0.4 cm oval-shaped cystic lesion in the right breast at the 9:00 position . No evidence of internal flow. Impression: 0.9 cm right retroareolar lesion with suspicious features. Etiology is indeterminate. Recommend mammo graphic correlation and/or biopsy for further evaluation. Additional 0.5 cm cystic lesion in the right breast at the 9:00 position without suspicious features and may represent a small cyst versus fat necrosis. Recommend follow-up to document stability or reso lution.
[2021-05-20 20:48] VITALS: BP 143/72; PULSE 81; RESP 18; TEMP 98.3
== END 2021-05-20 20:17 | disposition home or self-care (01) ==
LOC: EC 17:41
DX: N60.01 Solitary cyst of right breast (principal); E11.9 Type 2 diabetes mellitus without complications; I10 Essential (primary) hypertension; Z87.891 Personal history of nicotine dependence; Z91.018 Allergy to other foods; Z86.16 Personal history of COVID-19; Z98.890 Other specified postprocedural states
CPT/HCPCS: 99283; 96372; 76641; J2270

== ENCOUNTER 2021-05-22 14:49 | Day surgery (SDC) | payer OTHER ==
[2021-05-22] MEDS ORDERED: LACTATED RINGERS 1,000 ML IV ONE (15:15)
[2021-05-22 15:16] LABS: Glucose,Whole Blood 93 mg/dL (75-99)
[2021-05-22] MEDS ORDERED: ONDANSETRON 4 MG/2 ML VIAL ONE (15:17)
[2021-05-22] MEDS ORDERED: ONDANSETRON 4 MG/2 ML VIAL IVP ONE (15:23)
[2021-05-22] MEDS ORDERED: DEXAMETHASONE SOD PHOSPHATE 4 MG/ML 1 ML VIAL IVP ONE (15:23)
[2021-05-22] MEDS ORDERED: SUCCINYLCHOLINE CHLORIDE 100 MG/5 ML SYR IV ONE (17:58)
[2021-05-22] MEDS ORDERED: LIDOCAINE 1% INJ 10MG/ML (20 ML MDV) ONE (17:58)
[2021-05-22] MEDS ORDERED: PROPOFOL 10 MG/ML 20 ML VIAL IV ONE (17:58)
[2021-05-22] MEDS ORDERED: MIDAZOLAM 2 MG/2 ML VIAL ONE (17:58)
[2021-05-22] MEDS ORDERED: fentaNYL (PF) 50 MCG/ML 2 ML AMP ONE (17:58)
[2021-05-22 19:00] VITALS: TEMP 97
[2021-05-22] MEDS ORDERED: KETOROLAC 15 MG/ML 1 ML VIAL IVP ONE (19:11)
[2021-05-22 19:20] VITALS: RESP 16
[2021-05-22] MEDS ORDERED: HYDROcodone/APAP 5-325MG 1 EACH TAB PO ONE (19:33)
[2021-05-22] MEDS ORDERED: HYDROcodone/APAP 5-325MG 1 EACH TAB ONE (19:38)
[2021-05-22 19:49] VITALS: BP 135/74; PULSE 79
--- NOTE | 2021-05-23 12:12 | P.DS ---
Providers Attending physician: Maren Fajardo Primary care physician: Stated None Plan - Discharge Summary New Discharge Prescriptions: No Action No Known Home Medications Discharge Medication List No Known Home Medications 05/22/21 [History] Follow up Appointment(s)/Referral(s): Maren Fajardo MD [STAFF PHYSICIAN] - 05/31/21 11:40 am Patient Instructions/Handouts: *Surgery [facility] - (Anesthesia) Discharge Instructions Outpatient Surgery, Breast Lumpectomy (DC) Activity/Diet/Wound Care/Special Instructions: CALL OFFICE IN AM. TO SEE IF SHE WANTS TO SEE YOU ON FRIDAY. SHOWER IN 48 HRS. KEEP DRESSING CLEAN AND DRY. NO DRIVING FOR 24 HOURS OR WHEN TAKING NARCOTICS. CONTINUE TO TAKE YOUR ANTIBIOTIC-BACTRIM. Discharge Disposition: HOME SELF-CARE
== END 2021-05-22 20:07 | disposition home or self-care (01) ==
LOC: OR 14:49
PROVIDERS: ATTEND Surgery
DX: N61.1 Abscess of the breast and nipple (principal); N60.31 Fibrosclerosis of right breast; N64.1 Fat necrosis of breast; Z87.891 Personal history of nicotine dependence; Z80.3 Family history of malignant neoplasm of breast; I10 Essential (primary) hypertension; E11.9 Type 2 diabetes mellitus without complications; F31.9 Bipolar disorder, unspecified; Z98.51 Tubal ligation status; Z90.89 Acquired absence of other organs; Z90.49 Acquired absence of other specified parts of digestive tract; Z98.890 Other specified postprocedural states; Z97.2 Presence of dental prosthetic device (complete) (partial); Z88.8 Allergy status to other drugs, medicaments and biological substances
CPT/HCPCS: 81025; 88304; 10060; J2250; J1100; J0690; J2405; J2001; J3010; J1885; J0330; J2704

== ENCOUNTER → 2021-05-22 | Outpatient (CLI) | payer OTHER ==
[2021-05-22 08:02] VITALS: BP 141/83; PULSE 73; RESP 18; TEMP 98.2
--- NOTE | 2021-05-22 08:34 | P.GSHP ---
History of Present Illness H&P Date: 05/22/21 Chief Complaint: Pain/swelling right breast Yovana is a 46-year-old white female who presents with a complaint of pain in the periareolar area of the right breast. She states that it started approximately 2 days ago and it has not gotten any better or worse. The pain actually started laterally and the breast proceeded to the nipple areolar area and is now greatest at the nipple areolar area. She does not complain of any fever or chills. She had some minimal discharge initially but has not had any since then. The discharge was from the nipple and it was green in color. She did have an ultrasound performed in the emergency department and the ultrasound shows a small less than 1 cm area of nodularity which may be consistent with a sebaceous cyst when reviewed with radiology. She has had 3 left breast abscesses drained in the past. She's never had any right breast abscess. She has not had any recent trauma or infection in the breast. The last time an abscess was drained was in 2019. Caffeine: 2 cup/day Nicotine: 2 months that stopped smoking/ smoke 1 pack per day for 30 years Chocolate: Patient FAMILY history: mother: cervical cancer maternal great aunt: breast cancers Hormonal history: Menarche:15 , breast fed:no, age at first : 26 I. Z regular, last menstrual period a week ago. Hormones: none Surgical History: 3 left breast abscesses drained cervical conization Appendectomy Cholecystectomy Carpal tunnel right hand Upper teeth removed Medical history: HTN diabetes bipolar Social History: Nicotine: Stopped smoking 2 months ago Alcohol: Negative Drugs: Negative - Constitutional Constitutional: Denies chills, Denies fever - EENT Eyes: denies blurred vision, denies pain Ears: deny: decreased hearing, tinnitus Ears, nose, mouth and throat: Denies headache, Denies sore throat - Breasts Breasts: bilateral: as per HPI - Cardiovascular Cardiovascular: Denies chest pain, Denies shortness of breath - Respiratory Respiratory: Denies cough, Denies 7 - Gastrointestinal Gastrointestinal: Denies abdominal pain, Denies diarrhea, Denies nausea, Denies vomiting - Genitourinary (Female) Genitourinary: Denies dysuria, Denies hematuria - Menstruation Menstruation: Reports premenarcheal - Musculoskeletal Comment: foot pain Musculoskeletal: Reports as per HPI - Neurological Neurological: Denies numbness, Denies weakness - Psychiatric Psychiatric: Denies anxiety, Denies depression - Endocrine Endocrine: Reports fatigue - Hematologic/Lymphatic Comment: none - Allergic/Immunologic Allergic/Immunologic: Reports seasonal allergies Past Medical History Past Medical History: Diabetes Mellitus, Hypertension Additional Past Medical History / Comment(s): Diet controlled diabetes, no medication for HTN at this time. Pt has lost 60# History of Any Multi-Drug Resistant Organisms: None Reported Past Surgical History: Appendectomy, Breast Surgery, Cholecystectomy, Tubal Ligation Additional Past Surgical History / Comment(s): carpal tunnel, dental, abcess drainage left breast x2 (July 2016, March 2019, Aug 2019) Past Anesthesia/Blood Transfusion Reactions: No Reported Reaction Additional Past Anesthesia/Blood Transfusion Reaction / Comment(s): No blood transfusion to date Past Psychological History: Bipolar, Depression Additional Psychological History / Comment(s): Maintained with healthy coping mechanisms; diet and exericse (only suffers from depressive disorder, not the manic type) Smoking Status: Former smoker Past Alcohol Use History: Rare Past Drug Use History: None Reported Medications and Allergies Home Medications Medication Instructions Recorded Confirmed Type No Known Home Medications 05/22/21 05/22/21 History Allergies Allergy/AdvReac Type Severity Reaction Status Date / Time capsaicin Allergy Rash/Hives/ Verified 05/22/21 07:58 Swelling Surgical - Exam Vital Signs Temp Pulse Resp BP Pulse Ox 98.2 F 73 18 141/83 99 05/22/21 08:00 05/22/21 08:00 05/22/21 08:00 05/22/21 08:00 05/22/21 08:00 BMI 42.7 - General well developed, well nourished, no distress - Eyes normal ocular movement - ENT no hearing loss - Neck no masses, trachea midline - Respiratory normal respiratory effort, clear to auscultation - Cardiovascular Rhythm: regular Heart Sounds: normal: S1, S2 - Abdomen Abdomen: soft, non tender, no guarding, no rigid, no rebound - Integumentary normal turgor - Neurologic no disoriented, no combative - Musculoskeletal normal gait - Psychiatric oriented to time, oriented to person, oriented to place, speech is normal, memory intact breat exam: BRA: 36B inspection: Grade 2 ptosis bilateral Palpation: Right breast: Multiple positional exam fibrocystic changes, at the nipple areolar area there is a just medial to the nipple there is an area of elevation of the skin. Appears that it is trying to drain an abscess, and there is approximately a 3 x 3 cm fullness which is very tender despite having the nipple areolar complex Right axilla: No adenopathy of concern Left breast: Multiple positional exam fibrocystic changes no dominant masses or nodules of concern Left axilla: No adenopathy of concern
--- NOTE | 2021-05-22 18:39 | P.OP ---
Date of Procedure: 05/22/21 Preoperative Diagnosis: Right breast abscess Postoperative Diagnosis: Nodular mass posterior right nipple areolar complex/possible chronic abscess Procedure(s) Performed: Excision firm mass posterior to the nipple areolar complex Anesthesia: NASH Surgeon: Maren Fajardo Estimated Blood Loss (ml): 3 IV fluids (ml): 400 Pathology: other (Breast tissue) Condition: stable Disposition: same day Indications for Procedure: Firm mass developed posterior to the right nipple areolar complex/some drainage from the site felt to be most likely infected abscess or sebaceous cyst Operative Findings: Mass posterior the right nipple areolar complex Description of Procedure: Yovana is a 46-year-old white female who presented with swelling posterior to the nipple areolar complex and some drainage from the vicinity of the site. It was felt this most likely represented an abscess however ultrasound was performed and it was not something that could be drained percutaneously. Patient declined mammogram as the area was too tender. Patient was brought to the operating room for attempted incision and drainage. Circumareolar incision was made however upon entering the area was noted to be firm and no clear abscess was identified. Some nodular was noted and this was removed. There was some question that this could be a chronic abscess cavity and cultures were obtained. Following this the wound was well irrigated. Vicryl sutures were placed followed by a skin nylon interrupted sutures. The area where there had been some drainage was opened more widely And the nipple complex. Patient nancy erated procedure in stable condition. Instrument counts were correct at the end of the case.
--- NOTE | 2021-05-22 18:41 | P.DS ---
Providers Attending physician: Maren Fajardo Primary care physician: Stated None Plan - Discharge Summary New Discharge Prescriptions: No Action No Known Home Medications Discharge Medication List No Known Home Medications 05/22/21 [History] Follow up Appointment(s)/Referral(s): Maren Fajardo MD [STAFF PHYSICIAN] - 1-2 Days Activity/Diet/Wound Care/Special Instructions: do not drive today do not drive if taking narcotic pain medicine may shower after 48 hours Discharge Disposition: HOME SELF-CARE
== END | disposition home or self-care (01) ==
LOC: WWCWWP 07:35
PROVIDERS: ATTEND Surgery
DX: N64.4 Mastodynia (principal); E11.9 Type 2 diabetes mellitus without complications; I10 Essential (primary) hypertension; F31.9 Bipolar disorder, unspecified; Z91.018 Allergy to other foods; Z87.891 Personal history of nicotine dependence

== ENCOUNTER → 2021-05-24 | Outpatient (CLI) | payer BC, OTHER ==
--- NOTE | 2021-05-24 16:31 | P.PN ---
Progress Note - Text Progress Note Date: 05/24/21 Yovana is a 46-year-old white female status post I&D abscess right breast and 620 221. The area of concern was a firm nodularity which was actually excised over pathology came back as abscess with inflammation, fibrosis, and fat necrosis. Cultures revealed gram-positive cocci sensitive to Bactrim which the patient is taking. The patient states the discomfort has improved since the surgery. She has not had any fever or chills. Physical exam: Lungs: Clear Heart: Regular rate and rhythm Incision: Clean and dry no evidence of infection on today's exam Impression: 1. Probable chronic abscess left breast patient on adequate antibiotic coverage no evidence of infection at this time Plan: 1. Follow up next week for suture removal
[2021-05-24 16:35] VITALS: BP 142/89; PULSE 77; RESP 18; TEMP 98.2
== END ==
LOC: WWCWWP 15:36
PROVIDERS: ATTEND Surgery
DX: Z48.817 Encounter for surgical aftercare following surgery on the skin and subcutaneous tissue (principal); F17.200 Nicotine dependence, unspecified, uncomplicated; Z91.018 Allergy to other foods

== ENCOUNTER 2021-05-26 18:18 | Emergency (ER) | payer BC, OTHER ==
[2021-05-26 18:46] VITALS: BP 156/96; PULSE 94; RESP 18; TEMP 98.2
--- NOTE | 2021-05-26 19:22 | ED ---
General Adult HPI - General Chief complaint: Recheck/Abnormal Lab/Rx Stated complaint: PostOp Swelling on Rt Breast Time Seen by Provider: 05/26/21 18:47 Source: patient, RN notes reviewed, old records reviewed Mode of arrival: ambulatory Limitations: no limitations - History of Present Illness Initial comments: 36-year-old female with recent abscess drainage of the right breast presenting with increased pain. Patient is having a difficult time sleeping secondary to pain. No reported fever. She is currently on Bactrim. She had a follow-up with her breast surgeon Dr. Fajardo on . She has no constitutional symptoms, no drainage from the incision, she states she did have a little bit of drainage from her right nipple which has resolved. - Related Data Previous Rx's Medication Instructions Recorded HYDROcodone/APAP 5-325MG [[place] 1 tab PO Q6HR PRN #12 tab 05/26/21 5-325] Allergies Allergy/AdvReac Type Severity Reaction Status Date / Time capsaicin Allergy Rash/Hives/ Verified 05/26/21 18:46 Swelling Review of Systems ROS Statement: Those systems with pertinent positive or pertinent negative responses have been documented in the HPI. ROS Other: All systems not noted in ROS Statement are negative. Past Medical History Past Medical History: Diabetes Mellitus, Hypertension Additional Past Medical History / Comment(s): Diet controlled diabetes, no medication for HTN at this time. Pt has lost 60# History of Any Multi-Drug Resistant Organisms: None Reported Past Surgical History: Appendectomy, Breast Surgery, Cholecystectomy, Tubal Ligation Additional Past Surgical History / Comment(s): carpal tunnel, dental, abcess drainage left breast x2 (July 2016, March 2019, Aug 2019); RT breast I&D 05/22/21; Past Anesthesia/Blood Transfusion Reactions: No Reported Reaction Additional Past Anesthesia/Blood Transfusion Reaction / Comment(s): No blood transfusion to date Past Psychological History: Bipolar, Depression Smoking Status: Former smoker Past Alcohol Use History: Rare Past Drug Use History: None Reported - Past Family History Mother Family Medical History: Cancer Additional Family Medical History / Comment(s): CERVICAL CANCER General Exam Limitations: no limitations General appearance: alert, in no apparent distress Head exam: Present: atraumatic, normocephalic ENT exam: Present: normal exam Neck exam: Present: normal inspection. Absent: tenderness, meningismus Respiratory exam: Present: normal lung sounds bilaterally. Absent: respiratory distress Cardiovascular Exam: Present: regular rate, normal rhythm GI/Abdominal exam: Present: soft. Absent: distended, tenderness, guarding Extremities exam: Present: normal inspection, normal capillary refill. Absent: pedal edema, calf tenderness Neurological exam: Present: alert, oriented X3, CN II-XII intact. Absent: motor sensory deficit Psychiatric exam: Present: normal affect, normal mood Skin exam: Present: other (Right breast: There is an incision which is clean and dry, no. Drainage, no fluctuance, no induration no surrounding cellulitis, minimal erythema at the incision consistent with normal healing. Exam performed with female assembly repairer.) Course Vital Signs 05/26/21 18:43 Temperature 98.2 F Pulse Rate 94 Respiratory 18 Rate Blood Pressure 156/96 O2 Sat by Pulse 98 Oximetry Medical Decision Making - Medical Decision Making I did discuss case with Dr. Fajardo regarding exam findings and patient's presentation. She is agreeable with outpatient follow-up. Patient will continue Bactrim. She is prescribed [place] for increased pain. Return parameters discussed. Disposition Clinical Impression: Breast abscess Disposition: HOME SELF-CARE Condition: Good Instructions (If sedation given, give patient instructions): Abscess (ED) Prescriptions: HYDROcodone/APAP 5-325MG [[place] 5-325] 1 tab PO Q6HR PRN #12 tab PRN Reason: Pain Is patient prescribed a controlled substance at d/c from ED?: No Referrals: None,Stated [Primary Care Provider] - 1-2 days Maren Fajardo MD [STAFF PHYSICIAN] - 1-2 days Time of Disposition: 19:22
[2021-05-26] MEDS ORDERED: HYDROcodone/APAP 5-325MG 1 EACH TAB PO STA (19:34)
== END 2021-05-26 19:42 | disposition home or self-care (01) ==
LOC: EC 18:18
DX: N61.1 Abscess of the breast and nipple (principal); E11.9 Type 2 diabetes mellitus without complications; I10 Essential (primary) hypertension; Z87.891 Personal history of nicotine dependence; Z91.018 Allergy to other foods
CPT/HCPCS: 99283

== ENCOUNTER → 2021-05-31 | Outpatient (CLI) | payer BC, OTHER ==
--- NOTE | 2021-05-31 12:28 | P.PN ---
Progress Note - Text Progress Note Date: 05/31/21 Yovana is a 46-year-old white female status post I&D abscess right breast [place] [id number]. The area of concern was a firm nodularity which was actually excised, pathology came back as abscess with inflammation, fibrosis, and fat necrosis. Cultures revealed gram-positive cocci sensitive to Bactrim which the patient is taking. Patient presented to the emergency room secondary to erythema of the area. She was reassured and continued her Bactrim. The patient states the discomfort has improved since the surgery. She has not had any fever or chills. Physical exam: Lungs: Clear Heart: Regular rate and rhythm Incision: Clean and dry no evidence of infection on today's exam; erythema at t he suture sites Impression: 1. Probable chronic abscess left breast patient on adequate antibiotic coverage no evidence of infection at this time Plan: 1. Follow up next week 2. Bactrim double strength 1 by mouth twice a day #10
[2021-05-31 13:29] VITALS: BP 126/81; PULSE 88; RESP 18; TEMP 98.6
== END | disposition home or self-care (01) ==
LOC: WWCWWP 11:15
PROVIDERS: ATTEND Surgery
DX: Z48.817 Encounter for surgical aftercare following surgery on the skin and subcutaneous tissue (principal); Z91.018 Allergy to other foods

== ENCOUNTER 2021-06-05 10:46 | Emergency (ER) | payer BC, OTHER ==
[2021-06-05 10:57] VITALS: BP 147/76; PULSE 91; RESP 18; TEMP 98.5
--- NOTE | 2021-06-05 11:22 | ED ---
General Adult HPI - General Chief complaint: Recheck/Abnormal Lab/Rx Stated complaint: post op-incision bleeding Time Seen by Provider: 06/05/21 10:59 Source: patient Limitations: no limitations - History of Present Illness Initial comments: Dictation was produced using [employer] dictation software. please excuse any grammatical, word or spelling errors. Chief Complaint: 46-year-old female presents with recurrent breast abscess History of Present Illness: 46-year-old female she was diagnosed with a breast abscess 2 weeks ago. She initially presented with a nodule. She had incision and drainage performed by breast surgeon Dr. Alston. Patient's been on Bactrim for 15 days. Her last dose is tomorrow. She states that over the last 2-3 days she feels like the breast abscess returned. She does complain of some mild fatigue but denies any constitutional symptoms. She tried to call surgeon's office however was not successful in reaching her surgeon. The ROS documented in this emergency department record has been reviewed and confirmed by me. Those systems with pertinent positive or negative responses have been documented in the HPI. All other systems are other negative and/or noncontributory. PHYSICAL EXAM: General Impression: Alert and oriented x3, not in acute distress HEENT: Normocephalic atraumatic, extra-ocular movements intact, pupils equal and reactive to light bilaterally, mucous membranes moist. Cardiovascular: Heart regular rate and rhythm Chest: Able to complete full sentences, no retractions, no tachypnea Right breast: Cellulitic nodule at the 2 o'clock position just at the junction of of the skin and areola Abdomen: abdomen soft, non-tender, non-distended, no organomegaly Musculoskeletal: Pulses present and equal in all extremities, no peripheral edema Motor: no focal deficits noted Neurological: CN II-XII grossly intact, no focal motor or sensory deficits noted Skin: Intact with no visualized rashes Psych: Normal affect and mood ED course: 46-year-old female presents to the emergency department for concerns of recurrent breast abscess. Vital signs upon arrival are within acceptable limits. Patient's primary surgeon was contacted. Dr. Alston came down to the emergency department and performed I&D of the patient at the bedside. Patient will be discharged. Patient advised to follow-up with Dr. Fajardo in the office. Dr. Mendez ordered patient for pain medicines and antibiotics. - Related Data Home Medications Medication Instructions Recorded Confirmed Sulfamethox-Tmp 800-160Mg [Bactrim 1 tab PO BID 05/31/21 06/05/21 DS 800-160 mg] Allergies Allergy/AdvReac Type Severity Reaction Status Date / Time capsaicin Allergy Rash/Hives/ Verified 06/05/21 11:42 Swelling Review of Systems ROS Statement: Those systems with pertinent positive or pertinent negative responses have been documented in the HPI. ROS Other: All systems not noted in ROS Statement are negative. Past Medical History Past Medical History: Diabetes Mellitus, Hypertension Additional Past Medical History / Comment(s): Diet controlled diabetes, no medication for HTN at this time. Pt has lost 60# History of Any Multi-Drug Resistant Organisms: None Reported Past Surgical History: Appendectomy, Breast Surgery, Cholecystectomy, Tubal Ligation Additional Past Surgical History / Comment(s): carpal tunnel, dental, abcess drainage left breast x2 (July 2016, March 2019, Aug 2019); RT breast I&D 05/22/21; Past Anesthesia/Blood Transfusion Reactions: No Reported Reaction Additional Past Anesthesia/Blood Transfusion Reaction / Comment(s): No blood transfusion to date Past Psychological History: Bipolar, Depression Smoking Status: Former smoker Past Alcohol Use History: Rare Past Drug Use History: None Reported - Past Family History Mother Family Medical History: Cancer Additional Family Medical History / Comment(s): CERVICAL CANCER General Exam Limitations: no limitations Course Vital Signs 06/05/21 10:52 Temperature 98.5 F Pulse Rate 91 Respiratory 18 Rate Blood Pressure 147/76 O2 Sat by Pulse 93 L Oximetry Disposition Clinical Impression: Breast abscess Disposition: HOME SELF-CARE Condition: Fair Instructions (If sedation given, give patient instructions): Abscess (ED) Is patient prescribed a controlled substance at d/c from ED?: No Referrals: Maren Fajardo MD [STAFF PHYSICIAN] - 1-2 days
[2021-06-05] MEDS ORDERED: LIDOCAINE 1%-EPI 1:100,000 20 ML VIAL SQ STA (12:04)
--- NOTE | 2021-06-05 16:03 | P.PN ---
Subjective Progress Note Date: 06/05/21 Yovana is a 46-year-old white female who presented on 05-22-21 with a complaint of pain in the periareolar area of the right breast. She stated that it started approximately 2 days prior and it had not gotten any better or worse. The pain actually started laterally and proceeded to the nipple areolar area andwas then greatest at the nipple areolar area. She did not complain of any fever or chills. She had some minimal discharge initially. The discharge was from the nipple and it was green in color. She did have an ultrasound performed in the emergency department and the ultrasound showed a small less than 1 cm area of nodularity which may be consistent with a sebaceous cyst when reviewed w ith radiology. She had had 3 left breast abscesses drained in the past. She's had not had any right breast abscess. She did not have any recent trauma or infection in the breast. The last time an abscess was drained prior to this was 2018. The patient and [id number] underwent attempted incision and drainage in the operating room. The lesion however appeared to be a solid lesion behind the nipple areolar complex and this was resected the area was irrigated and the incision was closed. The patient was on Bactrim. The patient states that yesterday she noticed some increased drainage from the area and some increased erythema. She therefore presented to the emergency department. She did not complain of any fever or chills. Caffeine: 2 cup/day Nicotine: 2 months that stopped smoking/ smoke 1 pack per day for 30 years Chocolate: Patient FAMILY history: mother: cervical cancer maternal great aunt: breast cancers Hormonal history: Menarche:15 , breast fed:no, age at first : 26 I. Z regular, last menstrual period a week ago. Hormones: none Surgical History: 3 left breast abscesses drained cervical conization Appendectomy Cholecystectomy Carpal tunnel right hand Upper teeth removed right breast lesion removed [id number], pathology was consistent with a chronic abscess Medical history: HTN diabetes bipolar Social History: Nicotine: Stopped smoking 2 months ago Alcohol: Negative Drugs: Negative - Constitutional Constitutional: Denies chills, Denies fever - EENT Eyes: denies blurred vision, denies pain Ears: deny: decreased hearing, tinnitus Ears, nose, mouth and throat: Denies headache, Denies sore throat - Breasts Breasts: bilateral: as per HPI - Cardiovascular Cardiovascular: Denies chest pain, Denies shortness of breath - Respiratory Respiratory: Denies cough, - Gastrointestinal Gastrointestinal: Denies abdominal pain, Denies diarrhea, Denies nausea, Denies vomiting - Genitourinary (Female) Genitourinary: Denies dysuria, Denies hematuria - Menstruation Menstruation: Reports premenarcheal - Musculoskeletal Comment: foot pain Musculoskeletal: Reports as per HPI - Neurological Neurological: Denies numbness, Denies weakness - Psychiatric Psychiatric: Denies anxiety, Denies depression - Endocrine Endocrine: Reports fatigue - Hematologic/Lymphatic Comment: none - Allergic/Immunologic Allergic/Immunologic: Reports seasonal allergies Objective - Vital Signs Vital signs: Vital Signs Temp 98.5 F 06/05/21 10:52 Pulse 91 06/05/21 10:52 Resp 18 06/05/21 10:52 BP 147/76 06/05/21 10:52 Pulse Ox 93 L 06/05/21 10:52 Intake & Output 06/04/21 06/05/21 06/05/21 18:59 06:59 18:59 Weight 111.13 kg - Constitutional General appearance: Present: cooperative - EENT Eyes: Present: EOMI ENT: Present: hearing grossly normal - Neck Neck: Present: normal ROM - Integumentary Integumentary Comment(s): the breast iincision was mildly erythematous with some serous-like drainage from the area of the incision which was located in the medial periareolar region - Psychiatric Psychiatric: Present: A&O x's 3, appropriate affect, intact judgment & insight Assessment and Plan Assessment: impression: 1. Serous drainage and erythema right breast periareolar incision Plan: 1. Open incision with irrigation of the area informed consent was obtained. A timeout was obtained Procedure: The area of concern in the right breast was prepped using Betadine. The area wa s anesthetized using 1% lidocaine with epinephrine. The sutures were removed. Serous fluid was noted to be present cultures were obtained. The wound was well irrigated and packed. Patient states that it felt better that she had decreased pressure. The patient will follow-up with Dr. Barbosa next week. Additional antibiotics were not ordered as cultures were obtained and are pending.
== END 2021-06-05 12:37 | disposition home or self-care (01) ==
LOC: EC 10:46
DX: N61.1 Abscess of the breast and nipple (principal); R53.83 Other fatigue; E11.9 Type 2 diabetes mellitus without complications; I10 Essential (primary) hypertension; Z91.018 Allergy to other foods; Z87.891 Personal history of nicotine dependence
CPT/HCPCS: 10060; 99283

== ENCOUNTER → 2021-06-07 | Outpatient (CLI) | payer BC, OTHER ==
[2021-06-07 16:07] VITALS: BP 124/83; PULSE 58; RESP 16; TEMP 98.7
--- NOTE | 2021-06-07 16:13 | P.PN ---
Progress Note - Text Progress Note Date: 06/07/21 Valencia is a 46-year-old white female status post excisional biopsy of a firm nodule behind the right nipple areolar complex. This was initially thought to represent a possible abscess however it did not appear to be an abscess at the time of surgery but a firm nodule incision was closed. She subsequently was noted to have pathology consistent with chronic abscess. She was doing well until 7621 when she noted drainage from the site and increased tenderness. She was seen in the emergency room sutures were removed and the wound was packed. Erythema resolved and the patient has not had any fever or chills. Cultures from [id number] revealed anaerobic gram-positive cocci and moderate, and anaerobic gram-negative bacilli few. The patient was treated initially with Bactrim. Physical examination: Incision site is clean and dry minimal erythema at incision site Packing is changed Impression/plan: Resolving chronic right breast infection Continue present wound care Cultures obtained today follow up 1 week
== END | disposition home or self-care (01) ==
LOC: WWCWWP 15:39
PROVIDERS: ATTEND Surgery
DX: N60.11 Diffuse cystic mastopathy of right breast (principal); F17.200 Nicotine dependence, unspecified, uncomplicated; Z88.8 Allergy status to other drugs, medicaments and biological substances
CPT/HCPCS: 87070; 87075; 87205

== ENCOUNTER → 2021-06-14 | Outpatient (CLI) | payer BC, OTHER ==
[2021-06-14 14:36] VITALS: BP 110/72; PULSE 88; RESP 16; TEMP 98.5
--- NOTE | 2021-06-14 14:49 | P.PN ---
Progress Note - Text Progress Note Date: 06/14/21 Valencia is a 46-year-old white female status post excisional biopsy of a firm nodule behind the right nipple areolar complex. This was initially thought to represent a possible abscess however it did not appear to be an abscess at the time of surgery but a firm nodule thus, incision was closed. She subsequently was noted to have pathology consistent with chronic abscess. She was doing well until 7621 when she noted drainage from the site and increased tenderness. She was seen in the emergency room sutures were removed and the wound was packed. Erythema resolved and the patient has not had any fever or chills. Cultures from [id number] revealed anaerobic gram-positive cocci and moderate, and anaerobic gram-negative bacilli few. The patient was treated initially with Bactrim. Physical examination: Incision site is clean and dry minimal erythema at incision site Impression/plan: Resolving chronic right breast infection Continue present wound care Cultures obtained last week were no growth follow up 1 week
== END | disposition home or self-care (01) ==
LOC: WWCWWP 13:56
PROVIDERS: ATTEND Surgery
DX: L08.9 Local infection of the skin and subcutaneous tissue, unspecified (principal)

== ENCOUNTER 2021-06-28 09:26 | Emergency (ER) | payer BC, OTHER ==
[2021-06-28 09:30] VITALS: BP 166/84; PULSE 98; RESP 18; TEMP 98.5
[2021-06-28] MEDS ORDERED: KETOROLAC 15 MG/ML 1 ML VIAL IVP STA (09:47)
[2021-06-28] MEDS ORDERED: ONDANSETRON 4 MG/2 ML VIAL IVP STA (09:47)
[2021-06-28] MEDS ORDERED: SODIUM CHLORIDE 0.9% 1,000 ML IV STA (09:47)
--- NOTE | 2021-06-28 09:54 | ED ---
General Adult HPI - General Chief complaint: Urogenital Stated complaint: Poss Kidney stone Time Seen by Provider: 06/28/21 09:32 Source: patient, RN notes reviewed Mode of arrival: ambulatory Limitations: no limitations - History of Present Illness Initial comments: 46-year-old female with a past medical history of NIDDM, hypertension presents to the emergency room for a chief of left flank pain. Patient states that around 4:30 this morning she started to get left flank pain and left lower abdominal pain. Patient has a history of kidney stones. Patient states she is having another kidney stone, but hasn't had one in 2 years. Patient believes she also has some blood in her urine. She states that she feels that she needs to urinate but is only urinating small amounts frequently. Has pain with urination. Denies fevers or chills.Patient has no other complaints at this time including shortness of breath, chest pain, nausea or vomiting, headache, or visual changes. - Related Data Previous Rx's Medication Instructions Recorded Cephalexin [Keflex] 500 mg PO Q6HR 10 Days #40 cap 06/28/21 Allergies Allergy/AdvReac Type Severity Reaction Status Date / Time capsaicin Allergy Rash/Hives/ Verified 06/28/21 09:48 Swelling Review of Systems ROS Statement: Those systems with pertinent positive or pertinent negative responses have been documented in the HPI. ROS Other: All systems not noted in ROS Statement are negative. Past Medical History Past Medical History: Diabetes Mellitus, Hypertension Additional Past Medical History / Comment(s): diet controlled diabetes; no medication for HTN at this time; History of Any Multi-Drug Resistant Organisms: None Reported Past Surgical History: Appendectomy, Breast Surgery, Cholecystectomy, Tubal Ligation Additional Past Surgical History / Comment(s): carpal tunnel, dental, abcess drainage left breast x2 (July 2016, March 2019, Aug 2019); RT breast I&D 05/22/21, 06/05/21; Past Anesthesia/Blood Transfusion Reactions: No Reported Reaction Additional Past Anesthesia/Blood Transfusion Reaction / Comment(s): No blood transfusion to date Past Psychological History: Bipolar, Depression Smoking Status: Former smoker Past Alcohol Use History: Rare Past Drug Use History: None Reported - Past Family History Mother Family Medical History: Cancer Additional Family Medical History / Comment(s): CERVICAL CANCER General Exam Limitations: no limitations General appearance: alert, in no apparent distress Head exam: Present: atraumatic, normocephalic, normal inspection Eye exam: Present: normal appearance, PERRL, EOMI. Absent: scleral icterus, conjunctival injection, periorbital swelling ENT exam: Present: normal exam, mucous membranes moist Neck exam: Present: normal inspection, full ROM. Absent: tenderness, meningismus, lymphadenopathy Respiratory exam: Present: normal lung sounds bilaterally. Absent: respiratory distress, wheezes, rales, rhonchi, stridor Cardiovascular Exam: Present: regular rate GI/Abdominal exam: Present: soft, normal bowel sounds. Absent: distended, tenderness, guarding, rebound, rigid Back exam: Present: CVA tenderness (L). Absent: CVA tenderness (R) Course Vital Signs 06/28/21 09:27 Temperature 98.5 F Pulse Rate 98 Respiratory 18 Rate Blood Pressure 166/84 O2 Sat by Pulse 94 L Oximetry Medical Decision Making - Medical Decision Making Vitals are stable. Patient is well-appearing. CBC is unremarkable. CMP shows mild transaminitis which appears chronic. Urinalysis however does show evidence of infection. CT abdomen and pelvis shows multiple nonobstructing renal stones, the largest at the superior pole left kidney measuring 7 mm. Patient was given Toradol reevaluated, had significant improvement in symptoms. Patient likely has urinary tract infection with pyelonephritis given left CVA tenderness patient will be treated accordingly. Strict return parameters discussed - Lab Data Result diagrams: 06/28/21 09:56 06/28/21 09:56 Lab Results 06/28/21 06/28/21 06/28/21 Range/Units 09:56 09:56 09:56 WBC 6.6 (3.8-10.6) k/uL RBC 4.72 (3.80-5.40) m/uL Hgb 14.4 (11.4-16.0) gm/dL Hct 42.3 (34.0-46.0) % MCV 89.8 (80.0-100.0) fL MCH 30.6 (25.0-35.0) pg MCHC 34.1 (31.0-37.0) g/dL RDW 13.1 (11.5-15.5) % Plt Count 131 L (150-450) k/uL MPV 9.5 Neutrophils % 57 % Lymphocytes % 32 % Monocytes % 6 % Eosinophils % 3 % Basophils % 1 % Neutrophils # 3.8 (1.3-7.7) k/uL Lymphocytes # 2.1 (1.0-4.8) k/uL Monocytes # 0.4 (0-1.0) k/uL Eosinophils # 0.2 (0-0.7) k/uL Basophils # 0.1 (0-0.2) k/uL Sodium 141 (137-145) mmol/L Potassium 4.2 (3.5-5.1) mmol/L Chloride 110 H (98-107) mmol/L Carbon Dioxide 21 L (22-30) mmol/L Anion Gap 10 mmol/L BUN 19 H (7-17) mg/dL Creatinine 0.95 (0.52-1.04) mg/dL Est GFR (CKD-EPI)AfAm 84 (>60 ml/min/1.73 sqM) Est GFR (CKD-EPI)NonAf 73 (>60 ml/min/1.73 sqM) Glucose 133 H (74-99) mg/dL Calcium 9.9 (8.4-10.2) mg/dL Total Bilirubin 0.9 (0.2-1.3) mg/dL AST 113 H (14-36) U/L ALT 134 H (4-34) U/L Alkaline Phosphatase 154 H (38-126) U/L Total Protein 7.7 (6.3-8.2) g/dL Albumin 4.5 (3.5-5.0) g/dL Amylase 59 (30-110) U/L Lipase 96 (23-300) U/L Urine Color Yellow Urine Appearance Cloudy H (Clear) Urine pH 5.5 (5.0-8.0) Ur Specific Vincent 1.030 (1.001-1.035) Urine Protein Trace H (Negative) Urine Glucose (UA) Negative (Negative) Urine Ketones Negative (Negative) Urine Blood Small H (Negative) Urine Nitrite Negative (Negative) Urine Bilirubin Negative (Negative) Urine Urobilinogen 2.0 (<2.0) mg/dL Ur Leukocyte Esterase Large H (Negative) Urine RBC 16 H (0-5) /hpf Urine WBC 35 H (0-5) /hpf Ur Squamous Epith Cells 13 H (0-4) /hpf Urine Bacteria Rare H (None) /hpf Urine Mucus Moderate H (None) /hpf Disposition Clinical Impression: UTI (urinary tract infection), Pyelonephritis Disposition: HOME SELF-CARE Condition: Good Instructions (If sedation given, give patient instructions): Flank Pain (ED) Additional Instructions: Please take antibiotics as directed. Drink plenty of fluids. Follow up with your doctor in 1-2 days. Return to the ER for any worsening symptoms. Prescriptions: Cephalexin [Keflex] 500 mg PO Q6HR 10 Days #40 cap Is patient prescribed a controlled substance at d/c from ED?: No Referrals: Andres Marin MD [Primary Care Provider] - 1-2 days Time of Disposition: 12:16
[2021-06-28 10:23] LABS: Basophils # (A) 0.1 k/uL (0-0.2); Basophils % (A) 1 %; Eosinophils # (A) 0.2 k/uL (0-0.7); Eosinophils % (A) 3 %; HCT 42.3 % (34.0-46.0); HGB 14.4 gm/dL (11.4-16.0); Lymphocytes # (A) 2.1 k/uL (1.0-4.8); Lymphocytes % (A) 32 %; MCH 30.6 pg (25.0-35.0); MCHC 34.1 g/dL (31.0-37.0); MCV 89.8 fL (80.0-100.0); Mean Platelet Volume 9.5; Monocytes # (A) 0.4 k/uL (0-1.0); Monocytes % (A) 6 %; Neutrophils # (A) 3.8 k/uL (1.3-7.7); Neutrophils % (A) 57 %; Platelet Count 131 k/uL (150-450); RBC 4.72 m/uL (3.80-5.40); RDW 13.1 % (11.5-15.5); WBC 6.6 k/uL (3.8-10.6)
[2021-06-28 10:32] LABS: Albumin 4.5 g/dL (3.5-5.0); Calcium 9.9 mg/dL (8.4-10.2); Potassium 4.2 mmol/L (3.5-5.1); Total Bilirubin 0.9 mg/dL (0.2-1.3); Total Protein 7.7 g/dL (6.3-8.2)
[2021-06-28 10:37] LABS: Appearance,Urine Cloudy (Clear); Bacteria,Urine Rare /hpf; Bilirubin,Urine Negative (Negative); Blood,Urine Small (Negative); Color,Urine Yellow; Glucose,Urine (UA) Negative (Negative); Ketones,Urine Negative (Negative); Leukocyte Esterase,Urine Large (Negative); Mucus,Urine Moderate /hpf; Nitrite,Urine Negative (Negative); PH, Urine 5.5 (5.0-8.0); Protein,Urine Trace (Negative); RBC,Urine 16 /hpf (0-5); Squamous Epithelial Cell,Urine 13 /hpf (0-4); WBC,Urine 35 /hpf (0-5)
--- NOTE | 2021-06-28 11:09 | CT ---
EXAMINATION TYPE: CT abdomen pelvis wo con DATE OF EXAM: 06/28/2021 COMPARISON: None INDICATION: Abdominal pain DLP: 1428.4 mGycm, Automated exposure control for dose reduction was used. CONTRAST: 0 mL of Isovue 300. Study performed without Oral Contrast TECHNIQUE: Axial images were obtained from above the diaphragm to the pubic rami in the axial plane a t 5 mm thick sections. Reconstructed images are reviewed on the computer in the coronal plane. FINDINGS: Limited CT sections are obtained the lung bases. The lung bases are clear. CT ABDOMEN: Liver: Normal Spleen: Normal Pancreas: Normal Adrenal glands: The adrenal glands are normal. Gallbladder: Surgically absent Kidneys: No masses are evident. No hydronephrosis is present. There is a 2.1 cm cysts measuring 7 H [place] units lateral mid left kidney. There are multiple small renal stones present bilaterally. These are greater in number on the left compared to the right. The largest measures 0.7 cm at the sup erior pole left kidney. These are nonobstructing renal stones. No hydronephrosis is evident. No hydro ureter is evident. Aorta: Vascular calcification is within the aorta. Inferior vena cava: Normal. CT PELVIS: Loops of bowel within the abdomen and pelvis are normal. This study is without oral contrast limi ting bowel evaluation. Appendix: Not identified. No inflammatory changes or dilated tubular structures are evident. Urinary bladder: Normal. Somewhat decompressed with limited evaluation. Genitourinary structures: Uterus is normal. Adnexal regions are clear. No free fluid is present withi n the pelvis. Osseous structures: No suspicious lytic or sclerotic lesions are evident. IMPRESSIONS: 1. Multiple nonobstructing renal stones, the largest at the superior pole left kidney measuring 0.7 cm. #2 left renal cyst
[2021-06-28] MEDS ORDERED: MORPHINE SULFATE 4 MG/ML SYRINGE IVP STA (11:47)
--- NOTE | 2021-06-28 11:59 | XR ---
EXAMINATION TYPE: XR KUB DATE OF EXAM: 06/28/2021 COMPARISON: None HISTORY: Abdomen pain TECHNIQUE: Upright abdomen FINDINGS: r Couple of small 0.3 cm calcifications within the upper pole left kidney. There may be ar 0.2 cm calcification within the mid right kidney. Psoas margins are normal. Organomegaly is not evident. Normal colonic bowel gas is present. No free a ir is identified. No suspicious differential air-fluid levels are present. IMPRESSION: 1. Bilateral small renal stones
[2021-06-28] MEDS ORDERED: cefTRIAXone IN SWFI 1,000 MG/10 ML SYRINGE IVP STA (12:17)
== END 2021-06-28 12:45 | disposition home or self-care (01) ==
LOC: EC 09:26
DX: N12 Tubulo-interstitial nephritis, not specified as acute or chronic (principal); N39.0 Urinary tract infection, site not specified; N20.0 Calculus of kidney; R74.01 Elevation of levels of liver transaminase levels; E11.9 Type 2 diabetes mellitus without complications; I10 Essential (primary) hypertension; Z87.891 Personal history of nicotine dependence; Z91.018 Allergy to other foods
CPT/HCPCS: 36415; 80053; 82150; 83690; 85025; 81001; 87086; 74018; 74176; 99284; 96374; 96375; 96361; J2405; J0696; J1885; 87077; 87186

== ENCOUNTER 2021-06-30 17:37 | Inpatient (IN) | payer BC, MEDICAID ==
--- NOTE | 2021-06-30 19:31 | ED ---
Psych HPI - General Chief Complaint: Psychiatric Symptoms Stated Complaint: Suicidal Time Seen by Provider: 06/30/21 17:47 Source: patient, family Mode of arrival: ambulatory - History of Present Illness Initial Comments: 46-year-old female with history of bipolar disorder presents emergency Department with a chief complaint of suicidal thoughts. Patient reports she has been off of her bipolar medications for about one year. She used to be on Effexor. States for the past week she has been experiencing suicidal thoughts with no ideations or plans. She denies any homicidal thoughts or ideations. States she attempted to self medicate with cocaine and alcohol. states that she needs help. no further complaints. - Related Data Home Medications Medication Instructions Recorded Confirmed No Known Home Medications 06/30/21 06/30/21 Allergies Allergy/AdvReac Type Severity Reaction Status Date / Time capsaicin Allergy Rash/Hives/ Verified 06/30/21 18:45 Swelling Review of Systems ROS Statement: Those systems with pertinent positive or pertinent negative responses have been documented in the HPI. ROS Other: All systems not noted in ROS Statement are negative. Past Medical History Past Medical History: Diabetes Mellitus, Hypertension Additional Past Medical History / Comment(s): diet controlled diabetes; no medication for HTN at this time; History of Any Multi-Drug Resistant Organisms: None Reported Past Surgical History: Appendectomy, Breast Surgery, Cholecystectomy, Tubal Ligation Additional Past Surgical History / Comment(s): carpal tunnel, dental, abcess drainage left breast x2 (July 2016, March 2019, Aug 2019); RT breast I&D 05/22/21, 06/05/21; Past Anesthesia/Blood Transfusion Reactions: No Reported Reaction Additional Past Anesthesia/Blood Transfusion Reaction / Comment(s): No blood transfusion to date Past Psychological History: Bipolar, Depression Smoking Status: Former smoker Past Alcohol Use History: Rare Past Drug Use History: None Reported - Past Family History Mother Family Medical History: Cancer Additional Family Medical History / Comment(s): CERVICAL CANCER General Exam Limitations: no limitations General appearance: alert, in no apparent distress, obese Head exam: Present: atraumatic, normocephalic, normal inspection Eye exam: Present: normal appearance Pupils: Present: normal accommodation ENT exam: Present: normal exam, normal oropharynx, mucous membranes moist Neck exam: Present: normal inspection, full ROM Respiratory exam: Present: normal lung sounds bilaterally. Absent: respiratory distress Cardiovascular Exam: Present: regular rate, normal rhythm, normal heart sounds Extremities exam: Present: normal inspection, full ROM Back exam: Present: normal inspection, full ROM Neurological exam: Present: alert, oriented X3 Psychiatric exam: Present: normal affect, depressed Skin exam: Present: warm, dry, intact, normal color Course Vital Signs 06/30/21 06/30/21 06/30/21 17:42 17:45 19:45 Temperature 98.3 F Pulse Rate 100 Respiratory 20 22 18 Rate Blood Pressure 176/104 O2 Sat by Pulse 98 95 98 Oximetry 06/30/21 06/30/21 20:51 23:52 Temperature 98 F Pulse Rate 79 Respiratory 20 24 Rate Blood Pressure 134/84 O2 Sat by Pulse 94 L 98 Oximetry Medical Decision Making - Medical Decision Making [age]old female with history of bipolar disorder presents emergency department for psychiatric evaluation. Suicidal thoughts without a plan. Drug screen pending. Breath alcohol is 0. Drug screen positive for cocaine. EPS evaluated patient and they recommend admission. Case discussed with physician. - Lab Data Lab Results 06/30/21 Range/Units 19:27 Urine Opiates Screen Not Detected (NotDetected) Ur Oxycodone Screen Not Detected (NotDetected) Urine Methadone Screen Not Detected (NotDetected) Ur Propoxyphene Screen Not Detected (NotDetected) Ur Barbiturates Screen Not Detected (NotDetected) U Tricyclic Antidepress Not Detected (NotDetected) Ur Phencyclidine Scrn Not Detected (NotDetected) Ur Amphetamines Screen Not Detected (NotDetected) U Methamphetamines Scrn Not Detected (NotDetected) U Benzodiazepines Scrn Not Detected (NotDetected) Urine Cocaine Screen Detected H (NotDetected) U Marijuana (THC) Screen Not Detected (NotDetected) Disposition Clinical Impression: Suicidal ideation Disposition[facility] Condition: Fair Is patient prescribed a controlled substance at d/c from ED?: No Time of Disposition: 23:54
[2021-06-30 20:04] LABS: Amphetamine Screen,Urine Not Detected (NotDetected); Barbiturate Screen,Urine Not Detected (NotDetected); Benzodiazepines Screen,Urine Not Detected (NotDetected); Cocaine Screen,Urine Detected (NotDetected); Methadone Screen, Urine Not Detected (NotDetected); Opiate Screen,Urine Not Detected (NotDetected); Oxycodone Screen, Urine Not Detected (NotDetected); Phencyclidine Screen,Urine Not Detected (NotDetected); Tricyclic Antidepressant,Urine Not Detected (NotDetected); Urn Cannabinoid Scrn Not Detected (NotDetected)
[2021-07-01] MEDS ORDERED: MAGNESIUM HYDROXIDE 2,400 MG/10 ML CUP PO PRN (00:18)
[2021-07-01] MEDS ORDERED: LORazepam 1 MG TAB PO PRN (00:18)
[2021-07-01] MEDS ORDERED: LORazepam 2 MG/ML INJ IM PRN (00:28)
[2021-07-01] MEDS ORDERED: HALOPERIDOL LACTATE 5 MG/ML 1 ML VIAL IM PRN (00:32)
[2021-07-01] MEDS ORDERED: haloperidoL 5 MG TAB PO PRN (00:32)
[2021-07-01 01:11] LABS: Appearance,Urine Turbid (Clear); Bilirubin,Urine Negative (Negative); Blood,Urine Large (Negative); Calcium Oxalate Crystals,Urine Many /hpf; Color,Urine Yellow; Glucose,Urine (UA) Negative (Negative); Ketones,Urine Negative (Negative); Leukocyte Esterase,Urine Small (Negative); Mucus,Urine Many /hpf; Nitrite,Urine Negative (Negative); PH, Urine 5.5 (5.0-8.0); Protein,Urine 1+ (Negative); RBC,Urine >182 /hpf (0-5); Specific Gravity,Urine 1.029 (1.001-1.035); Squamous Epithelial Cell,Urine 26 /hpf (0-4); Urobilinogen,Urine <2.0 mg/dL (<2.0); WBC,Urine 36 /hpf (0-5)
--- NOTE | 2021-07-01 02:22 | P.PN ---
Progress Note - Text Progress Note Date: 07/01/21 Patient sedated and not appropriate for evaluation at this time. Will attempt again tomorrow.
[2021-07-01 08:09] LABS: ALT 119 U/L (4-34); AST 91 U/L (14-36); African American GFR (CKD) >90 (>60 ml/min/1.73 sqM); Albumin 4.4 g/dL (3.5-5.0); Alkaline Phosphatase 120 U/L (38-126); Anion Gap 10 mmol/L; Blood Urea Nitrogen 19 mg/dL (7-17); Calcium 9.4 mg/dL (8.4-10.2); Carbon Dioxide 22 mmol/L (22-30); Chloride 107 mmol/L (98-107); Glucose 142 mg/dL (74-99); Non-African American GFR(CKD) 83 (>60 ml/min/1.73 sqM); Potassium 4.4 mmol/L (3.5-5.1); Sodium 139 mmol/L (137-145); Total Bilirubin 0.9 mg/dL (0.2-1.3); Total Protein 7.5 g/dL (6.3-8.2)
[2021-07-01 08:12] LABS: Basophils # (A) 0.2 k/uL (0-0.2); Basophils % (A) 2 %; Eosinophils # (A) 0.2 k/uL (0-0.7); Eosinophils % (A) 3 %; HCT 44.7 % (34.0-46.0); HGB 15.4 gm/dL (11.4-16.0); Lymphocytes # (A) 2.2 k/uL (1.0-4.8); Lymphocytes % (A) 27 %; MCH 31.4 pg (25.0-35.0); MCHC 34.5 g/dL (31.0-37.0); MCV 91.2 fL (80.0-100.0); Mean Platelet Volume 9.7; Monocytes # (A) 0.5 k/uL (0-1.0); Monocytes % (A) 6 %; Neutrophils # (A) 5.1 k/uL (1.3-7.7); Neutrophils % (A) 61 %; Platelet Count 135 k/uL (150-450); RDW 13.1 % (11.5-15.5); WBC 8.3 k/uL (3.8-10.6)
[2021-07-01] MEDS: ACETAMINOPHEN TAB 325 MG TAB PO PRN (09:24)
[2021-07-01 14:16] LABS: Hemoglobin A1C 6.5 % (4.0-6.0)
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
[2021-07-01] MEDS: QUEtiapine 50 MG TAB PO SCH (20:01)
--- NOTE | 2021-07-02 01:34 | P.CONS ---
History of Present Illness - Reason for Consult Consult date: 07/01/21 - History of Present Illness The patient was seen with the mental health unit RN Marianna. I was never alone with the patient. Patient is a 46-year-old female with a PMH of type II DM, polysubstance abuse, and hypertension who presented to the emergency room with complaints of depression and suicidal ideation. The patient was admitted to the mental health unit where she was seen and evaluated. The patient reports that she has been struggling with several family issues, including her nephew was recently arrested for multiple reasons. She further reports chronic lower extremity achiness and foot pain, described as a pins and needles and tingling sensation, worse at night, that has been gradually worsening over the past 5 years. She reports that she was previously diagnosed with diabetes but had never been st arted on medications as her A1c was only borderline. She denied additional complaints. She denied chest discomfort, shortness of breath, fever, chills. Also denied urinary complaints, nausea, vomiting, abdominal pain, diarrhea. Review of systems: Pertinent positives and negatives as discussed in HPI, a complete review of systems was performed and all other systems are negative. Physical examination: General: non toxic, no distress, appears at stated age, morbidly obese Derm: no unusual rashes/lesions no unusual ecchymoses, warm, dry Head: atraumatic, normocephalic, symmetric Eyes: EOMI, no lid lag, anicteric sclera, pupils equal round reactive to light ENT: Nose and ears atraumatic, no thrush, no pharyngeal erythema Neck: No thyromegaly, no cervical lymphadenopathy, trachea midline, supple Mouth: no lip lesion, mucus membranes moist Cardiovascular: S1S2 reg, no murmur, positive posterior tibial pulse bilateral, no edema, capillary refill less than 2 seconds Lungs: CTA bilateral, no rhonchi, no rales , no accessory muscle use Abdominal: soft, nontender to palpation, no guarding, no appreciable organomegaly, normal bowel sounds Ext: no gross muscle atrophy, muscle strength 5 out of 5 in all 4 extremities grossly, no contractures, Neuro: CN II-XI grossly intact, light touch intact all 4 extremities, finger to nose within normal limits, Psych: Alert, oriented, appropriate affect Assessment/plan Type II DM with peripheral neuropathy -Start patient on metformin -A1c 6.5 -Patient strongly advised on importance of good follow-up with her primary care physician Hypertension -Start patient on Norvasc Abnormal LFTs -Unclear etiology -Monitor for now Abnormal UA -Patient denied urinary complaints -Suspect colonization Polysubstance abuse -Advised on importance of cessation Depression with suicidal ideation -As per psychiatry Thank you for allowing us to participate in the care of this patient. We will follow peripherally. Do not hesitate to contact us with questions. Someone can be reached from the [facility] hospitalist group at all hours of the day at [phone]. Past Medical History Past Medical History: Diabetes Mellitus, Hypertension Additional Past Medical History / Comment(s): diet controlled diabetes; no medication for HTN at this time; History of Any Multi-Drug Resistant Organisms: None Reported Past Surgical History: Appendectomy, Breast Surgery, Cholecystectomy, Tubal Ligation Additional Past Surgical History / Comment(s): carpal tunnel, dental, abcess drainage left breast x2 (July 2016, March 2019, Aug 2019); RT breast I&D 05/22/21, 06/05/21; Past Anesthesia/Blood Transfusion Reactions: No Reported Reaction Additional Past Anesthesia/Blood Transfusion Reaction / Comm: No blood transfusion to date Past Psychological History: Bipolar, Depression Additional Psychological History / Comment(s): Maintained with healthy coping mechanisms; diet and exericse (only suffers from depressive disorder, not the manic type) Smoking Status: Former smoker Past Alcohol Use History: Rare Additional Past Alcohol Use History / Comment(s): QUIT SMOKING March 16, 2021, SMOKED FOR 30 YEARS Past Drug Use History: Cocaine - Past Family History Mother Family Medical History: Cancer Additional Family Medical History / Comment(s): CERVICAL CANCER Medications and Allergies Home Medications Medication Instructions Recorded Confirmed Type No Known Home Medications 06/30/21 06/30/21 History Allergies Allergy/AdvReac Type Severity Reaction Status Date / Time capsaicin Allergy Rash/Hives/ Verified 06/30/21 18:45 Swelling Physical Exam Vitals: Vital Signs Temp Pulse Pulse Resp BP BP Pulse Ox 07/01/21 00:21 97.9 F 84 16 144/88 06/30/21 23:52 98 F 79 24 134/84 98 06/30/21 20:51 20 94 L Intake and Output 07/01/21 07/01/21 07/01/21 06:59 14:59 22:59 Other: Weight 108.8 kg Results CBC & Chem 7: 07/01/21 07:15 07/01/21 07:15 Labs: Abnormal Lab Results - Last 24 Hours (Table) 06/30/21 07/01/21 07/01/21 Range/Units 19:27 07:15 07:15 Plt Count 135 L (150-450) k/uL BUN 19 H (7-17) mg/dL Glucose 142 H (74-99) mg/dL Hemoglobin A1c (4.0-6.0) % AST 91 H (14-36) U/L ALT 119 H (4-34) U/L Urine Appearance Turbid H (Clear) Urine Protein 1+ H (Negative) Urine Blood Large H (Negative) Ur Leukocyte Esterase Small H (Negative) Urine RBC >182 H (0-5) /hpf Urine WBC 36 H (0-5) /hpf Ur Squamous Epith Cells 26 H (0-4) /hpf Calcium Oxalate Crystal Many H (None) /hpf Urine Mucus Many H (None) /hpf 07/01/21 Range/Units 07:15 Plt Count (150-450) k/uL BUN (7-17) mg/dL Glucose (74-99) mg/dL Hemoglobin A1c 6.5 H (4.0-6.0) % AST (14-36) U/L ALT (4-34) U/L Urine Appearance (Clear) Urine Protein (Negative) Urine Blood (Negative) Ur Leukocyte Esterase (Negative) Urine RBC (0-5) /hpf Urine WBC (0-5) /hpf Ur Squamous Epith Cells (0-4) /hpf Calcium Oxalate Crystal (None) /hpf Urine Mucus (None) /hpf
[2021-07-02] MEDS: metFORMIN 500 MG TAB PO SCH ×2 (08:27→17:38)
[2021-07-02] MEDS: amLODIPine 10 MG TAB PO SCH (08:27)
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
[2021-07-02] MEDS: QUEtiapine 50 MG TAB PO SCH (20:32)
[2021-07-03 07:00] VITALS: TEMP 97.5
[2021-07-03] MEDS: metFORMIN 500 MG TAB PO SCH ×2 (07:36→17:29)
[2021-07-03] MEDS: amLODIPine 10 MG TAB PO SCH (07:36)
[2021-07-03 07:58] VITALS: RESP 16
[2021-07-03 09:59] VITALS: BP 124/72; PULSE 116
--- NOTE | 2021-07-03 10:19 | P.PN ---
Progress Note - Text Progress Note Date: 07/03/21 Interval History: Patient was seen resting in bed and was directable and agreeable to speak with insurance underwriter in the office. Patient reports that she is feeling significantly better overall is expressing that she is not 100% ready. She is currently not reporting any suicidal or homicidal ideation, intention, and/or plan. She is not reporting any auditory or visual hallucinations. She denies any paranoia or other delusions. The patient does express that she feels like the Seroquel has been helping significantly in regards to her sleep, but that she is experiencing significant feelings of sedation throughout the day. The patient also reports some restless legs at bedtime. She is open to having her seroquel decreased tonight. The patient denies any issues with her appetite. Despite elevated HR, patient reports no palpitations or chest pain. Mental Status Exam: General Appearance: Patient appears to be stated age is alert, directable, and cooperative. Obese body habitus. Improved hygiene and grooming. Behavior: Patient is calmly seated without any agitated behavior. Eye contact is appropriate. Speech: Patient's speech is fluent and nonpressured. Mood/Affect: Mood is slightly anxious, affect is congruent and euthymic with normal range. Suicidality/Homicidality: Patient denies having any suicidal or homicidal ideation intent or plan. Perceptions: Patient denies any visual hallucinations and denies any auditory hallucinations Though content/process: There is no evidence of any delusional thought content and thought process is linear and goal-directed. Memory and concentration: AOX3, grossly intact for the purposes of this session Judgment and insight: Improving mildly Vital Signs Temp 97.5 F L 07/03/21 06:59 Pulse 116 H 07/03/21 07:50 Resp 16 07/03/21 07:50 BP 124/72 07/03/21 07:50 Pulse Ox 98 06/30/21 23:52 Assessment Bipolar type I disorder current episode is depressed Anxiety disorder, unspecified Cocaine use disorder with a recent relapse Alcohol use disorder in full remission Rule out PTSD Plan: -Patient continues to meet criteria for inpatient psychiatric admission for symptom stabilization and safety. Patient has signed adult voluntary form and medication consent and was placed in patient's chart. -Medications: Decrease Seroquel to 125 mg at bedtime for mood stabilization. -When necessary Ativan and Haldol for agitation/aggression. -SW on board for discharge planning. Encouraged the patient to participate in milieu.
[2021-07-03] MEDS: ACETAMINOPHEN TAB 325 MG TAB PO PRN (10:58)
[2021-07-03] MEDS: MAG HYDROX/AL HYDROX/SIMETH 30 ML CUP PO PRN (19:59)
[2021-07-03] MEDS ORDERED: QUEtiapine 50 MG TAB PO SCH (21:00)
[2021-07-04] MEDS: amLODIPine 10 MG TAB PO SCH (08:28)
[2021-07-04] MEDS: metFORMIN 500 MG TAB PO SCH (08:28)
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
[2021-07-04] MEDS: MAG HYDROX/AL HYDROX/SIMETH 30 ML CUP PO PRN (11:41)
== END 2021-07-04 13:46 | disposition home or self-care (01) | DRG 885 ==
LOC: EC 17:37 → 3MHU 23:37
PROVIDERS: ADMIT Psychiatry & Neurology Psychiatry; ATTEND Psychiatry & Neurology Psychiatry
DX: F31.30 Bipolar disorder, current episode depressed, mild or moderate severity, unspecified (principal); Z68.41 Body mass index [BMI] 40.0-44.9, adult; R45.851 Suicidal ideations; E11.42 Type 2 diabetes mellitus with diabetic polyneuropathy; E88.81 Metabolic syndrome and other insulin resistance; E66.9 Obesity, unspecified; F14.10 Cocaine abuse, uncomplicated; F41.9 Anxiety disorder, unspecified; I10 Essential (primary) hypertension; F10.11 Alcohol abuse, in remission; G47.00 Insomnia, unspecified; G25.81 Restless legs syndrome; F12.10 Cannabis abuse, uncomplicated; R45.87 Impulsiveness; R82.90 Unspecified abnormal findings in urine; R94.5 Abnormal results of liver function studies; Z79.84 Long term (current) use of oral hypoglycemic drugs; Z90.49 Acquired absence of other specified parts of digestive tract; Z87.19 Personal history of other diseases of the digestive system; Z98.51 Tubal ligation status; Z87.39 Personal history of other diseases of the musculoskeletal system and connective tissue; Z98.818 Other dental procedure status; Z87.2 Personal history of diseases of the skin and subcutaneous tissue; Z87.891 Personal history of nicotine dependence; Z62.810 Personal history of physical and sexual abuse in childhood; Z98.890 Other specified postprocedural states; Z88.8 Allergy status to other drugs, medicaments and biological substances; Z80.49 Family history of malignant neoplasm of other genital organs; Z81.8 Family history of other mental and behavioral disorders
CPT/HCPCS: 80053; 80306; 81001; 81025; 82075; 83036; 84443; 85025; 99285

== ENCOUNTER 2021-08-14 06:41 | Emergency (ER) | payer BC, OTHER ==
[2021-08-14 06:47] VITALS: BP 161/81; PULSE 91; RESP 22; TEMP 98.1
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
--- NOTE | 2021-08-14 07:41 | XR ---
EXAMINATION TYPE: XR ankle complete LT DATE OF EXAM: 08/14/2021 CLINICAL HISTORY: Taliaferro 8 with pain. TECHNIQUE: Frontal, lateral and oblique images of the left ankle are obtained. COMPARISON: Prior left ankle x-ray June 21, 2016 FINDINGS: There is no acute fracture/dislocation evident in the left ankle. The ankle mortise remai ns within normal limits. The overlying soft tissue appears unremarkable. IMPRESSION: There is no acute fracture or dislocation in the left ankle.
--- NOTE | 2021-08-14 07:53 | XR ---
EXAMINATION TYPE: XR Hip LT and AP Pelvis DATE OF EXAM: 08/14/2021 COMPARISON: Pelvic and left x-ray dated 06/21/2016. HISTORY: Fall injury with pain. TECHNIQUE: A single AP view of the pelvis is obtained. Two views of the left hip are obtained. FINDINGS: There is no acute fracture/dislocation evident in the pelvis. The hip and sacroiliac join ts appear stable symmetric and within normal limits. Pubic symphysis is intact. Inferior right pelvi c phleboliths redemonstrated.. Two views of left hip show no acute fracture or dislocation. No focal lytic or sclerotic lesion seen in the proximal left femur. The overlying soft tissue is unremarkable. IMPRESSION: There is no acute fracture or dislocation in the pelvis or left hip. No significant feliz ge from prior.
== END 2021-08-14 08:37 | disposition home or self-care (01) ==
LOC: EC 06:41
DX: S93.402A Sprain of unspecified ligament of left ankle, initial encounter (principal); S70.02XA Contusion of left hip, initial encounter; I10 Essential (primary) hypertension; E11.9 Type 2 diabetes mellitus without complications; Z91.018 Allergy to other foods; Z87.891 Personal history of nicotine dependence; W00.0XXA Fall on same level due to ice and snow, initial encounter; Y93.01 Activity, walking, marching and hiking; Y99.0 Civilian activity done for income or pay
CPT/HCPCS: 73502; 99283

== ENCOUNTER → 2021-08-15 | Outpatient (CLI) | payer OTHER, BC ==
--- NOTE | 2021-08-15 14:30 | XR ---
EXAMINATION TYPE: XR ankle complete RT DATE OF EXAM: 08/15/2021 CLINICAL HISTORY: Slip and fall injury with pain TECHNIQUE: Frontal, lateral and oblique images of the right ankle are obtained. COMPARISON: None. FINDINGS: There is no acute fracture/dislocation evident in the right ankle. The ankle mortise appe ars within normal limits. Tiny spur from the lateral malleolus. Moderate-sized superior and inferior calcaneal spurs. The overlying soft tissue appears unremarkable. IMPRESSION: There is no acute fracture or dislocation in the right ankle.
--- NOTE | 2021-08-15 14:32 | XR ---
EXAMINATION TYPE: XR foot complete bilateral DATE OF EXAM: 08/15/2021 CLINICAL HISTORY: Injury one day ago with pain. TECHNIQUE: Frontal, lateral, and oblique images of the bilateral feet are obtained. COMPARISON: None FINDINGS: There is no acute fracture/dislocation evident in either foot. Flexion of the toes is note d bilaterally. There are moderate-sized inferior calcaneal spurs bilaterally. Mild diffuse subcutaneo us edema bilaterally. Some curvilinear calcifications distal Achilles attachment posterior superior c alcaneus right greater than left hindfoot are incidentally noted. IMPRESSION: There is no acute fracture or dislocation in either foot.
--- NOTE | 2021-08-15 14:34 | XR ---
EXAMINATION TYPE: XR lumbar spine 2 or 3V DATE OF EXAM: 08/15/2021 CLINICAL HISTORY: Slip and fall injury with pain. TECHNIQUE: Frontal and lateral images of the lumbar spine are obtained. COMPARISON: CT abdomen and pelvis June 28, 2021 FINDINGS: There are 5 lumbar type vertebral bodies redemonstrated. The lumbar spine shows stable an d satisfactory alignment without evidence of acute fracture or dislocation. Vertebral body heights an d disk space heights remain within normal limits. Mild to moderate vascular calcification overlying a bdominal aorta. There are small scattered renal calculi more numerous in the left kidney versus right kidney redemonstrated. IMPRESSION: No acute fracture or dislocation is seen in the lumbar spine.
--- NOTE | 2021-08-15 14:35 | XR ---
EXAMINATION TYPE: XR thoracic spine 2V DATE OF EXAM: 08/15/2021 CLINICAL HISTORY: Fall with mid back pain. TECHNIQUE: Frontal, lateral, and swimmer's view of thoracic spine are obtained. COMPARISON: None. FINDINGS: Thoracic spine show satisfactory alignment without evidence of acute fracture or dislocatio n. Vertebral body heights and disc space heights are preserved. [id number] multilevel anterior spurring. Visualized ribs are unremarkable. IMPRESSION: No acute fracture or dislocation is seen in the thoracic spine.
== END | disposition home or self-care (01) ==
LOC: RADXRMAIN 13:50
PROVIDERS: ATTEND Emergency Medicine
DX: S20.229A Contusion of unspecified back wall of thorax, initial encounter (principal); S93.401A Sprain of unspecified ligament of right ankle, initial encounter; S93.602A Unspecified sprain of left foot, initial encounter; S93.601A Unspecified sprain of right foot, initial encounter; W01.0XXA Fall on same level from slipping, tripping and stumbling without subsequent striking against object, initial encounter
CPT/HCPCS: 72070; 72100

== ENCOUNTER → 2021-08-23 | Outpatient (CLI) | payer OTHER ==
--- NOTE | 2021-08-23 15:45 | XR ---
EXAMINATION TYPE: XR shoulder complete LT DATE OF EXAM: 08/23/2021 CLINICAL HISTORY: pain COMPARISON: NONE TECHNIQUE: Three views of the left shoulder are obtained. FINDINGS: There is no acute fracture/dislocation evident. The acromioclavicular and glenohumeral yee int spaces appear within normal limits. The visualized ribs are intact and unremarkable. IMPRESSION: 1. There is no acute fracture or dislocation. ICD 10 NO FRACTURE, INITIAL EVALUATION
--- NOTE | 2021-08-23 15:50 | XR ---
EXAMINATION TYPE: XR ankle complete bilateral DATE OF EXAM: 08/23/2021 COMPARISON: NONE HISTORY: Pain TECHNIQUE: Frontal, lateral and oblique images of the bilateral ankles are obtained. COMPARISON: None. FINDINGS: There is no acute fracture/dislocation evident. Well-corticated ossific densities adjacent to the right lateral malleolar tip and left medial malleolar tip. Plantar and dorsal calcaneal spurr ing seen bilaterally. The joint spaces appear within normal limits. The overlying soft tissue appea rs unremarkable. IMPRESSION: There is no acute fracture or dislocation seen.
== END | disposition home or self-care (01) ==
LOC: RADXRMAIN 14:53
PROVIDERS: ATTEND Emergency Medicine
DX: M25.512 Pain in left shoulder (principal); S93.401D Sprain of unspecified ligament of right ankle, subsequent encounter; S93.402D Sprain of unspecified ligament of left ankle, subsequent encounter; X58.XXXD Exposure to other specified factors, subsequent encounter

== ENCOUNTER → 2021-10-03 | Outpatient (CLI) | payer OTHER ==
--- NOTE | 2021-10-03 13:30 | MR ---
Left ankle MRI HISTORY: Left ankle pain Multiplanar multisequence imaging obtained to the left ankle, correlation to plain film 08/23/2021 The calcifications seen at the level of the plantar spur are not seen well on MRI. Plantar calcaneal spur is noted as on plain film There is fluid signal along the peroneal longus and brevis tendons, some suspected increased signal n oted within the tendon. The Achilles tendon shows a normal insertion. Bone marrow signal is maintained. Tibiotalar joint is i ntact, subtalar joint intact. Flexor and extensor tendons are intact. No evident ligamentous disrupti on. IMPRESSION: Findings consistent with peroneal tenosynovitis.
== END | disposition home or self-care (01) ==
LOC: RADMRIMAIN 07:47
PROVIDERS: ATTEND Emergency Medicine
DX: M65.872 Other synovitis and tenosynovitis, left ankle and foot (principal)

== ENCOUNTER 2022-06-12 18:45 | Emergency (ER) | payer BC, OTHER ==
[2022-06-12 18:51] VITALS: BP 161/98; PULSE 89; RESP 14; TEMP 98.2
[2022-06-12 18:53] LABS: Glucose,Whole Blood 226 mg/dL (70-110)
[2022-06-12] MEDS ORDERED: SULFAMETHOX-TMP 800-160MG 1 EACH TAB PO STA (19:25)
[2022-06-12] MEDS ORDERED: CEPHALEXIN 500 MG CAP PO STA (19:25)
--- NOTE | 2022-06-12 19:30 | ED ---
General Adult HPI - General Chief complaint: Skin/Abscess/Foreign Body Stated complaint: Hyperglycemia, sore on R breast Time Seen by Provider: 06/12/22 19:00 Source: patient, RN notes reviewed, old records reviewed Mode of arrival: ambulatory Limitations: no limitations - History of Present Illness Initial comments: 47-year-old female history of diabetes presenting for evaluation of right breast pain and swelling. Patient has noted drainage and she states over the past several months she's had recurrent issues with drainage and then healing follow ed by recurrent drainage. She's had incision and drainage performed by Dr. Familia Mendez. She has no fever. Her blood sugar at home was elevated, and she does check her sugar content, home. She's been prescribed metformin but was told to take this only as needed. - Related Data Home Medications Medication Instructions Recorded Confirmed OXcarbazepine [Trileptal] 300 mg PO BID 08/14/21 01/09/22 cloNIDine HCL 0.1 mg PO HS PRN 08/14/21 01/09/22 hydrOXYzine pamoate [Vistaril] 25 mg PO TID PRN 08/14/21 01/09/22 metFORMIN HCL [Glucophage] 500 mg PO AC-BID 08/14/21 01/09/22 Acetaminophen Tab [Tylenol] 650 mg PO Q4H PRN 01/09/22 01/09/22 QUEtiapine [SEROquel] 50 mg PO HS PRN 01/09/22 01/09/22 Previous Rx's Medication Instructions Recorded amLODIPine [Norvasc] 10 mg PO DAILY 30 Days tab 07/04/21 HYDROcodone/APAP 5-325MG [[place] 1 tab PO Q4HR PRN #30 tab 01/11/22 5-325] Cephalexin [Keflex] 500 mg PO QID 10 Days #40 cap 06/12/22 Sulfamethox-Tmp 800-160Mg [Bactrim 1 tab PO Q12HR #28 tab 06/12/22 DS 800-160 mg] Allergies Allergy/AdvReac Type Severity Reaction Status Date / Time capsaicin Allergy Rash/Hives/ Verified 06/12/22 18:51 Swelling Review of Systems ROS Statement: Those systems with pertinent positive or pertinent negative responses have been documented in the HPI. ROS Other: All systems not noted in ROS Statement are negative. Past Medical History Past Medical History: Diabetes Mellitus, Hypertension, Osteoarthritis (OA) Additional Past Medical History / Comment(s): KIDNEY STONES, History of Any Multi-Drug Resistant Organisms: None Reported Past Surgical History: Appendectomy, Breast Surgery, Cholecystectomy, Tubal Ligation Additional Past Surgical History / Comment(s): carpal tunnel RIGHT WRIST, dental, abcess drainage left breast x2 (July 2016, March 2019, Aug 2019); RT breast I&D 05/22/21, 06/05/21; Past Anesthesia/Blood Transfusion Reactions: No Reported Reaction Additional Past Anesthesia/Blood Transfusion Reaction / Comment(s): No blood transfusion to date Past Psychological History: Anxiety, Bipolar, Depression Smoking Status: Former smoker Past Alcohol Use History: None Reported Past Drug Use History: None Reported - Past Family History Mother Family Medical History: Cancer Additional Family Medical History / Comment(s): CERVICAL CANCER General Exam Limitations: no limitations General appearance: alert, in no apparent distress Head exam: Present: atraumatic, normocephalic Eye exam: Present: normal appearance, PERRL ENT exam: Present: normal exam Neck exam: Present: normal inspection Respiratory exam: Present: normal lung sounds bilaterally. Absent: respiratory distress, wheezes Cardiovascular Exam: Present: regular rate, normal rhythm GI/Abdominal exam: Present: soft. Absent: distended, tenderness Extremities exam: Present: normal inspection Neurological exam: Present: alert, oriented X3, CN II-XII intact. Absent: motor sensory deficit Psychiatric exam: Present: normal affect, normal mood Skin exam: Present: other (Right breast, there is a area of previous drainage medial to the nipple, there is some mild erythema, no fluctuance, no induration, no drainable abscess.) Course Vital Signs 06/12/22 18:47 Temperature 98.2 F Pulse Rate 89 Respiratory 14 Rate Blood Pressure 161/98 O2 Sat by Pulse 99 Oximetry Medical Decision Making - Medical Decision Making 47-year-old female with an area of cellulitis and previous drainage on the right breast. There is no drainable abscess currently. There is no fever. Patient's blood sugar is elevated at 220. She's been taking metformin as needed. She is instructed to take this medication daily and follow closely with her primary care physician regarding her diabetes. Regarding her breast recurrent abscess, she should follow back up with Dr. Fajardo. She should apply warm compresses and take antibiotics as prescribed. - Lab Data Lab Results 06/12/22 Range/Units 18:50 POC Glucose (mg/dL) 226 H (70-110) mg/dL POC Glu Cotton Picker Operator ID Emilee Cai Disposition Clinical Impression: Cellulitis of breast, Diabetes Disposition: HOME SELF-CARE Condition: Good Instructions (If sedation given, give patient instructions): Diabetic Hyperglycemia (ED), Cellulitis (ED) Prescriptions: Sulfamethox-Tmp 800-160Mg [Bactrim DS 800-160 mg] 1 tab PO Q12HR #28 tab Cephalexin [Keflex] 500 mg PO QID 10 Days #40 cap Is patient prescribed a controlled substance at d/c from ED?: No Referrals: None,Stated [Primary Care Provider] - 1-2 days Maren Fajardo MD [STAFF PHYSICIAN] - 1-2 days Jerald Barbosa MD [STAFF PHYSICIAN] - 1-2 days Time of Disposition: 19:29
== END 2022-06-12 19:46 | disposition home or self-care (01) ==
LOC: EC 18:45
DX: N61.0 Mastitis without abscess (principal); E11.9 Type 2 diabetes mellitus without complications; I10 Essential (primary) hypertension; M19.90 Unspecified osteoarthritis, unspecified site; F41.9 Anxiety disorder, unspecified; F31.9 Bipolar disorder, unspecified; Z87.891 Personal history of nicotine dependence; Z91.018 Allergy to other foods
CPT/HCPCS: 36415; 99283

== ENCOUNTER → 2023-05-22 | Outpatient (CLI) | payer BC ==
[2023-05-22 21:22] LABS: Estradiol 32.7 pg/mL
[2023-05-22 21:55] LABS: Basophils # (A) 0.04 X 10*3/uL (0.00-0.10); Basophils % (A) 1.2 %; Eosinophils # (A) 0.17 X 10*3/uL (0.04-0.35); Eosinophils % (A) 5.2 %; HCT 38.3 % (37.2-46.3); Immature Grans, Automated 0 %; Lymphocytes % (A) 30.6 %; MCH 29.7 pg (27.0-32.0); MCHC 33.9 d/dL (32.0-37.0); MCV 87.6 FL (80.0-97.0); Mean Platelet Volume 12.4 FL (9.5-12.2); Monocytes # (A) 0.26 X 10*3/uL (0.20-1.00); NRBC Per 100 WBC 0 X 10*3/uL (0.00-0.01); Platelet Count 92 X 10*3/uL (140-440); RBC 4.37 X 10*6/uL (4.10-5.20); RBC Morphology Normal (Normal); RDW 13.2 % (11.5-14.5); WBC 3.27 X 10*3/uL (4.50-10.00)
[2023-05-22 22:21] LABS: Thyroid Peroxidase Antibodies <9.0 U/mL (0.0-33.0)
[2023-05-23 00:09] LABS: Follicle Stimulating Hormone 17.6 mIU/mL
== END | disposition home or self-care (01) ==
LOC: LABWHC1 11:39
DX: N91.2 Amenorrhea, unspecified (principal)
CPT/HCPCS: 36415; 82670; 83001; 84144; 84403; 84443; 85025; 86376; 86800

== ENCOUNTER 2024-02-03 21:35 | Emergency (ER) | payer BC ==
[2024-02-03 22:07] VITALS: RESP 18
[2024-02-03] MEDS: LIDOCAINE 2% INJ 20 MG/ML (20 ML MDV) SQ STA (22:33)
[2024-02-03] MEDS: ACETAMINOPHEN TAB 500 MG TAB PO STA (22:33)
[2024-02-03] MEDS: IBUPROFEN 800 MG TAB PO STA (22:35)
[2024-02-03] MEDS: SODIUM CHLORIDE 0.9% 1,000 ML IV STA (22:39)
[2024-02-03 23:00] LABS: INR 1.1 (<1.2); Partial Thromboplastin Time 26.4 sec (22.0-30.0); Prothrombin Time 11.9 sec (10.0-12.5)
[2024-02-03 23:02] LABS: ALT 48 U/L (4-34); AST 48 U/L (14-36); African American GFR (CKD) >90 (>60 ml/min/1.73 sqM); Albumin 3.3 g/dL (3.5-5.0); Alkaline Phosphatase 299 U/L (38-126); Anion Gap 5 mmol/L; Blood Urea Nitrogen 7 mg/dL (7-17); Calcium 8.4 mg/dL (8.4-10.2); Carbon Dioxide 22 mmol/L (22-30); Chloride 109 mmol/L (98-107); Glucose 248 mg/dL (74-99); Magnesium 1.6 mg/dL (1.6-2.3); Non-African American GFR(CKD) >90 (>60 ml/min/1.73 sqM); Sodium 136 mmol/L (137-145); Total Bilirubin 1.1 mg/dL (0.2-1.3); Total Protein 6.8 g/dL (6.3-8.2)
--- NOTE | 2024-02-03 23:06 | XR ---
EXAM: XR Chest, 2 Views CLINICAL HISTORY: ITS.REASON XR Reason: Chest Pain TECHNIQUE: Frontal and lateral views of the chest. COMPARISON: No relevant prior studies available. FINDINGS: Lungs: Unremarkable. No consolidation. Pleural space: Unremarkable. No pneumothorax. Heart: Unremarkable. No cardiomegaly. Mediastinum: Unremarkable. Normal mediastinal contour. Bones/joints: Unremarkable. No acute fracture. IMPRESSION: Normal chest x-rays.
[2024-02-03 23:15] LABS: Basophils % (A) 1 %; Eosinophils # (A) 0.3 k/uL (0-0.7); Eosinophils % (A) 4 %; HGB 13.3 gm/dL (11.4-16.0); Lymphocytes # (A) 1.1 k/uL (1.0-4.8); Lymphocytes % (A) 16 %; MCH 30.6 pg (25.0-35.0); MCHC 34.2 g/dL (31.0-37.0); MCV 89.5 fL (80.0-100.0); Mean Platelet Volume 10.6; Monocytes # (A) 0.6 k/uL (0-1.0); Monocytes % (A) 8 %; Neutrophils # (A) 4.7 k/uL (1.3-7.7); Neutrophils % (A) 70 %; RBC 4.36 m/uL (3.80-5.40); RDW 14.3 % (11.5-15.5); WBC 6.7 k/uL (3.8-10.6)
--- NOTE | 2024-02-03 23:40 | ED ---
General Adult HPI <Carleen Shirley - Last Filed: 02/03/24 23:40> - General Source: patient, RN notes reviewed, old records reviewed Mode of arrival: wheelchair Limitations: no limitations <Blair Clayton - Last Filed: 02/04/24 00:59> - General Chief complaint: Chest Pain Stated complaint: chest pain chills sore on leg Time Seen by Provider: 02/03/24 22:15 - History of Present Illness Initial comments: Patient is a 48-year-old female who presents emergency department with multiple complaints. Primary complaint is a abscess on the inner left thigh which she has a frequent history of. But also had an episode earlier of heart palpitations as well as what she describes as "chest pain" where she felt warm over the left side of her chest and left arm with palpitations. States she has been having some left shoulder pain with movement. States she also felt febrile at that time. Was febrile upon arrival and tachycardic. Primary complaint is left leg pain. No cardiac history. Presents for further evaluation at this time. No known sick contacts. Denies any fevers, chills, sick contacts. States chest pain has since resolved. (Blair Clayton) - Related Data Home Medications Medication Instructions Recorded Confirmed OXcarbazepine [Trileptal] 300 mg PO BID 08/14/21 01/09/22 cloNIDine HCL 0.1 mg PO HS PRN 08/14/21 01/09/22 hydrOXYzine pamoate [Vistaril] 25 mg PO TID PRN 08/14/21 01/09/22 metFORMIN HCL [Glucophage] 500 mg PO AC-BID 08/14/21 01/09/22 Acetaminophen Tab [Tylenol] 650 mg PO Q4H PRN 01/09/22 01/09/22 QUEtiapine [SEROquel] 50 mg PO HS PRN 01/09/22 01/09/22 Previous Rx's Medication Instructions Recorded amLODIPine [Norvasc] 10 mg PO DAILY 30 Days tab 07/04/21 HYDROcodone/APAP 5-325MG [[place] 1 tab PO Q4HR PRN #30 tab 01/11/22 5-325] Cephalexin [Keflex] 500 mg PO QID 10 Days #40 cap 01/23/23 Sulfamethox-Tmp 800-160Mg [Bactrim 1 tab PO Q12HR #28 tab 01/23/23 DS 800-160 mg] Cephalexin [Keflex] 500 mg PO Q12HR 10 Days #20 cap 02/03/24 Sulfamethox-Tmp 800-160Mg [Bactrim 1 tab PO Q12HR 10 Days #20 tab 02/03/24 DS 800-160 mg] Allergies Allergy/AdvReac Type Severity Reaction Status Date / Time capsaicin Allergy Rash/Hives/ Verified 01/23/23 08:18 Swelling Review of Systems ROS Other: All systems not noted in ROS Statement are negative. <Carleen Shirley - Last Filed: 02/03/24 23:40> ROS Other: All systems not noted in ROS Statement are negative. <Blair Clayton - Last Filed: 02/04/24 00:59> ROS Statement: Those systems with pertinent positive or pertinent negative responses have been documented in the HPI. Review of Systems: CONST: Denies fever EYES: Denies blurry vision ENT: Denies nasal congestion C/V: Denies Chest pain RESP: Denies shortness of breath GI: Denies abdominal pain : Denies dysuria SKIN: Endorses left thigh abscess MSK: Denies joint pain. NEURO: Denies headache (Blair Clayton) Past Medical History Past Medical History: Diabetes Mellitus, Hypertension, Osteoarthritis (OA) Additional Past Medical History / Comment(s): KIDNEY STONES, History of Any Multi-Drug Resistant Organisms: None Reported Past Surgical History: Appendectomy, Breast Surgery, Cholecystectomy, Orthopedic Surgery, Tubal Ligation Additional Past Surgical History / Comment(s): carpal tunnel RIGHT WRIST, denta l, abcess drainage left breast x2 (July 2016, March 2019, Aug 2019); RT breast I&D 05/22/21, 06/05/21; Left ankle surgery. Past Anesthesia/Blood Transfusion Reactions: No Reported Reaction Additional Past Anesthesia/Blood Transfusion Reaction / Comment(s): No blood transfusion to date Past Psychological History: Anxiety, Bipolar, Depression Smoking Status: Former smoker Past Alcohol Use History: None Reported Past Drug Use History: None Reported - Past Family History Mother Family Medical History: Cancer Additional Family Medical History / Comment(s): CERVICAL CANCER <Blair Clayton - Last Filed: 02/04/24 00:59> General Exam Limitations: no limitations <Blair Clayton - Last Filed: 02/04/24 00:59> - General Exam Comments Initial Comments: General: Appears in no acute distress. Febrile HEAD: Normal with no signs of head trauma. EYES: PERRLA, EOMI, conjunctiva normal, no discharge. ENT: Hearing grossly intact, normal oropharynx. RESPIRATORY: Clear breath sounds bilaterally. No wheezes, rales, or rhonchi. C/V: Tachycardic. S1 and S2 auscultated, no edema, peripheral pulses 2+ and intact throughout ABD: Abd is soft, nontender, nondistended EXT: Normal range of motion, no obvious deformity SKIN: Left inner thigh abscess approximately the size of a ping-pong ball with surrounding erythema and obvious fluctuance. NEURO: Alert and oriented x 4. (Blair Clayton) Course Vital Signs 02/03/24 02/03/24 02/04/24 21:40 22:20 00:13 Temperature 98.9 F 100.1 F H 97.7 F Pulse Rate 118 H 108 H 86 Respiratory 18 18 18 Rate Blood Pressure 156/64 135/65 123/58 O2 Sat by Pulse 98 97 97 Oximetry Procedures - Incision & Drainage Consent Obtained: verbal consent Site: lower extremity (right inner thigh) Size (cm): 4 Anesthetic Used: lidocaine 1% Amount (mLs): 2 I&D Cleaning Method: Alcohol Wipe Sterile Field Used?: Yes Scalpel Used: #11 Ultrasound used: Yes Needle Aspiration Performed?: No Irrigation Performed?: Yes I&D Drainage Obtained: Pus, Blood Insertion of drain: No Culture Obtained?: No Patient Tolerated Procedure: well, no complications <Carleen Shirley - Last Filed: 02/03/24 23:40> Medical Decision Making - Lab Data Result diagrams: 02/03/24 22:32 02/03/24 22:32 <Carleen Shirley - Last Filed: 02/03/24 23:40> - Lab Data Result diagrams: 02/03/24 22:32 02/03/24 22:32 - EKG Data -: EKG Interpreted by Me <Blair Clayton - Last Filed: 02/04/24 00:59> - Medical Decision Making Was pt. sent in by a medical professional or institution (, PA, SCHOOL BUS MONITOR, urgent care, hospital, or [facility]...) When possible be specific @ -No Did you speak to anyone other than the patient for history (EMS, parent, family, police, friend...)? What history was obtained from this source @ -No Did you review nursing and triage notes (agree or disagree)? Why? @ -I reviewed and agree with nursing and triage notes Were old charts reviewed (outside hosp., previous admission, EMS record, old EKG, old radiological studies, urgent care reports/EKG's, [facility] records)? Report findings @ -Old charts reviewed Differential Diagnosis (chest pain, altered mental status, abdominal pain women, abdominal pain men, vaginal bleeding, weakness, fever, dyspnea, syncope, headache, dizziness, GI bleed, back pain, seizure, CVA, palpatations, mental health, musculoskeletal)? @ -Leg abscess, cellulitis, musculoskeletal pain, febrile illness. This list is not all inclusive. EKG interpreted by me (3pts min.). @ -As above X-rays interpreted by me (1pt min.). @ -Chest x-ray reveals no obvious acute cardiopulmonary process. CT interpreted by me (1pt min.). @ -None done U/S interpreted by me (1pt. min.). @ -None done What testing was considered but not performed or refused? (CT, X-rays, U/S, labs)? Why? @ -None What meds were considered but not given or refused? Why? @ -None Did you discuss the management of the patient with other professionals (pro fessionals i.e. , PA, SCHOOL BUS MONITOR, lab, RT, psych nurse, nursing home social worker, museum attendant, teacher, complaint investigations officer, hospice case manager)? Give summary @ -No Was smoking cessation discussed for >3mins.? @ -No Was critical care preformed (if so, how long)? @ -No Were there social determinants of health that impacted care today? How? (Homelessness, low income, unemployed, alcoholism, drug addiction, transportation, low edu. Level, literacy, decrease access to med. care, residential, rehab)? @ -No Was there de-escalation of care discussed even if they declined (Discuss DNR or withdrawal of care, Hospice)? DNR status @ -No What co-morbidities impacted this encounter? (DM, HTN, Smoking, COPD, CAD, Cancer, CVA, ARF, Chemo, Hep., AIDS, mental health diagnosis, sleep apnea, morbid obesity)? @ -None Was patient admitted / discharged? Hospital course, mention meds given and route, prescriptions, significant lab abnormalities, going to OR and other pertinent info. @ -Based on patient's presentation and physical exam, patient presents complaining of left leg abscess. Also had an episode of chest pain however that is since resolved. Patient presents for further evaluation at this time. We will obtain cardiopulmonary workup. Patient will have an I&D of the patient's abscess. Patient in agreement this plan. See additional procedure note for in incision and drainage of the abscess. Patient's laboratory studies remarkable for chronic thrombocytopenia. Troponin undetectable. Chest x-ray unremarkable. EKG unremarkable. At this time, patient has no acute complaints. She will be started on Keflex and Bactrim. She was given Tylenol and Motrin for fever and that seems to have improved as well. Vital signs are within acceptable limits. She will be discharged home at this time. Patient was in agreement the plan. I will provide the patient with a prescription for Bactrim, Keflex. I instructed the patient to follow up with their PCP in the next 1-3 days.. I explained that the patient should return to the emergency department if they experience any worsening symptoms. Strict return precautions were discussed with the patient. The patient expressed understanding of these instructions. I answered all questions that the patient had. The patient was discharged home in good condition with their prescriptions and follow up information. Undiagnosed new problem with uncertain prognosis? @ -No Drug Therapy requiring intensive monitoring for toxicity (Heparin, Nitro, Insulin, Cardizem)? @ -No Were any procedures done? @ -Abscess incision and drainage Diagnosis/symptom? @ -Left inner thigh abscess, chest wall pain Acute, or Chronic, or Acute on Chronic? @ -Acute Uncomplicated (without systemic symptoms) or Complicated (systemic symptoms)? @ -Complicated Side effects of treatment? @ -No Exacerbation, Progression, or Severe Exacerbation? @ -No Poses a threat to life or bodily function? How? (Chest pain, [place], [place], pneumonia, PE, COPD, DKA, ARF, appy, cholecystitis, CVA, Diverticulitis, Homicidal, Suicidal, threat to staff... and all critical care pts) @ -Unlikely (Blair Clayton) - Lab Data Lab Results 02/03/24 02/03/24 02/03/24 Range/Units 22:32 22:32 22:32 WBC 6.7 (3.8-10.6) k/uL RBC 4.36 (3.80-5.40) m/uL Hgb 13.3 (11.4-16.0) gm/dL Hct 39.0 (34.0-46.0) % MCV 89.5 (80.0-100.0) fL MCH 30.6 (25.0-35.0) pg MCHC 34.2 (31.0-37.0) g/dL RDW 14.3 (11.5-15.5) % Plt Count 76 L (150-450) k/uL MPV 10.6 Neutrophils % 70 % Lymphocytes % 16 % Monocytes % 8 % Eosinophils % 4 % Basophils % 1 % Neutrophils # 4.7 (1.3-7.7) k/uL Lymphocytes # 1.1 (1.0-4.8) k/uL Monocytes # 0.6 (0-1.0) k/uL Eosinophils # 0.3 (0-0.7) k/uL Basophils # 0.0 (0-0.2) k/uL Manual Slide Review Performed RBC Morphology Normal PT 11.9 (10.0-12.5) sec INR 1.1 (<1.2) APTT 26.4 (22.0-30.0) sec Sodium 136 L (137-145) mmol/L Potassium 4.0 (3.5-5.1) mmol/L Chloride 109 H (98-107) mmol/L Carbon Dioxide 22 (22-30) mmol/L Anion Gap 5 mmol/L BUN 7 (7-17) mg/dL Creatinine 0.63 (0.52-1.04) mg/dL Est GFR (CKD-EPI)AfAm >90 (>60 ml/min/1.73 sqM) Est GFR (CKD-EPI)NonAf >90 (>60 ml/min/1.73 sqM) Glucose 248 H (74-99) mg/dL Calcium 8.4 (8.4-10.2) mg/dL Magnesium 1.6 (1.6-2.3) mg/dL Total Bilirubin 1.1 (0.2-1.3) mg/dL AST 48 H (14-36) U/L ALT 48 H (4-34) U/L Alkaline Phosphatase 299 H (38-126) U/L Troponin I (0.000-0.034) ng/mL Total Protein 6.8 (6.3-8.2) g/dL Albumin 3.3 L (3.5-5.0) g/dL 02/03/24 Range/Units 22:32 WBC (3.8-10.6) k/uL RBC (3.80-5.40) m/uL Hgb (11.4-16.0) gm/dL Hct (34.0-46.0) % MCV (80.0-100.0) fL MCH (25.0-35.0) pg MCHC (31.0-37.0) g/dL RDW (11.5-15.5) % Plt Count (150-450) k/uL MPV Neutrophils % % Lymphocytes % % Monocytes % % Eosinophils % % Basophils % % Neutrophils # (1.3-7.7) k/uL Lymphocytes # (1.0-4.8) k/uL Monocytes # (0-1.0) k/uL Eosinophils # (0-0.7) k/uL Basophils # (0-0.2) k/uL Manual Slide Review RBC Morphology PT (10.0-12.5) sec INR (<1.2) APTT (22.0-30.0) sec Sodium (137-145) mmol/L Potassium (3.5-5.1) mmol/L Chloride (98-107) mmol/L Carbon Dioxide (22-30) mmol/L Anion Gap mmol/L BUN (7-17) mg/dL Creatinine (0.52-1.04) mg/dL Est GFR (CKD-EPI)AfAm (>60 ml/min/1.73 sqM) Est GFR (CKD-EPI)NonAf (>60 ml/min/1.73 sqM) Glucose (74-99) mg/dL Calcium (8.4-10.2) mg/dL Magnesium (1.6-2.3) mg/dL Total Bilirubin (0.2-1.3) mg/dL AST (14-36) U/L ALT (4-34) U/L Alkaline Phosphatase (38-126) U/L Troponin I <0.012 (0.000-0.034) ng/mL Total Protein (6.3-8.2) g/dL Albumin (3.5-5.0) g/dL - EKG Data EKG Comments: 12-lead Electrocardiogram Interpretation Note EKG was reviewed and interpreted by myself. 12-lead ECG performed at 2 214 is in terpreted by me as revealing normal sinus rhythm at a rate of 93 beats per minute. Collins is normal. ID interval is 128 ms, QRS duration is 94 ms, QTc is 395 ms.. There were no ST or T wave abnormalities to suggest myocardial ischemia or injury. R wave progression across the precordium was satisfactory. By my interpretation this EKG is non-diagnostic for acute ischemia. (Blair Clayton) Disposition <Carleen Shirley - Last Filed: 02/03/24 23:40> Is patient prescribed a controlled substance at d/c from ED?: No Time of Disposition: 23:44 <Blair Clayton - Last Filed: 02/04/24 00:59> Clinical Impression: Abscess of leg, Chest wall pain Disposition: HOME SELF-CARE Condition: Good Instructions (If sedation given, give patient instructions): Abscess Incision and Drainage (ED), Abscess (ED) Prescriptions: Sulfamethox-Tmp 800-160Mg [Bactrim DS 800-160 mg] 1 tab PO Q12HR 10 Days #20 tab Cephalexin [Keflex] 500 mg PO Q12HR 10 Days #20 cap Referrals: None,Stated [Primary Care Provider] - 1-2 days Forms: Area PCPs
[2024-02-04 00:03] LABS: Platelet Count 76 k/uL (150-450)
[2024-02-04 00:04] LABS: RBC Morphology Normal
[2024-02-04] MEDS: CEPHALEXIN 500 MG CAP PO STA (00:12)
[2024-02-04] MEDS: SULFAMETHOX-TMP 800-160MG 1 EACH TAB PO STA (00:12)
[2024-02-04 00:20] VITALS: BP 123/58; PULSE 86; TEMP 97.7
== END 2024-02-04 00:18 | disposition home or self-care (01) ==
LOC: EC 21:35
DX: L02.416 Cutaneous abscess of left lower limb (principal); R07.89 Other chest pain; E11.9 Type 2 diabetes mellitus without complications; I10 Essential (primary) hypertension; F41.9 Anxiety disorder, unspecified; F32.A Depression, unspecified; Z87.891 Personal history of nicotine dependence; Z79.899 Other long term (current) drug therapy; Z79.84 Long term (current) use of oral hypoglycemic drugs; Z88.8 Allergy status to other drugs, medicaments and biological substances
CPT/HCPCS: 36415; 93005; 80053; 83735; 84484; 85025; 85610; 85730; 71046; 99285; 96360; 10060; J2001

== ENCOUNTER 2024-02-13 12:33 | Emergency (ER) | payer BC ==
[2024-02-13 13:09] VITALS: RESP 18
[2024-02-13] MEDS: HYDROmorphone 1 MG/ML 1 ML SYRINGE IM STA (13:52)
[2024-02-13] MEDS: LIDOCAINE 1% INJ 10MG/ML (20 ML MDV) SQ ONE (13:57)
--- NOTE | 2024-02-13 14:55 | ED ---
Skin/Abscess/FB HPI - General Chief complaint: Skin/Abscess/Foreign Body Stated complaint: Abscess in R Breast Time Seen by Provider: 02/13/24 12:40 Source: patient Mode of arrival: ambulatory Limitations: no limitations - History of Present Illness Initial comments: 48-year-old female with history of recurrent breast abscesses who presents em ergency department reporting breast abscess. States that she has had some swelling and pain in the right breast which is getting worse. States that this has happened to her several times. She has had surgical intervention by Dr. Familia Mendez. She was on antibiotics for an abscess on her leg but just finished them. She denies a history of MRSA. She is not getting any drainage from the breast at this time. No history of any breast cancer. No other alleviating, precipitating or modifying factors - Related Data Home Medications Medication Instructions Recorded Confirmed OXcarbazepine [Trileptal] 300 mg PO BID 08/14/21 01/09/22 cloNIDine HCL 0.1 mg PO HS PRN 08/14/21 01/09/22 hydrOXYzine pamoate [Vistaril] 25 mg PO TID PRN 08/14/21 01/09/22 metFORMIN HCL [Glucophage] 500 mg PO AC-BID 08/14/21 01/09/22 Acetaminophen Tab [Tylenol] 650 mg PO Q4H PRN 01/09/22 01/09/22 QUEtiapine [SEROquel] 50 mg PO HS PRN 01/09/22 01/09/22 Previous Rx's Medication Instructions Recorded amLODIPine [Norvasc] 10 mg PO DAILY 30 Days tab 07/04/21 HYDROcodone/APAP 5-325MG [Plato 1 tab PO Q4HR PRN #30 tab 01/11/22 5-325] Cephalexin [Keflex] 500 mg PO QID 10 Days #40 cap 01/23/23 Sulfamethox-Tmp 800-160Mg [Bactrim 1 tab PO Q12HR #28 tab 01/23/23 DS 800-160 mg] Cephalexin [Keflex] 500 mg PO Q12HR 10 Days #20 cap 02/03/24 Sulfamethox-Tmp 800-160Mg [Bactrim 1 tab PO Q12HR 10 Days #20 tab 02/03/24 DS 800-160 mg] Cephalexin [Keflex] 500 mg PO Q6HR 1 Days #28 cap 02/13/24 Sulfamethox-Tmp 800-160Mg [Bactrim 2 each PO Q12HR #28 tab 02/13/24 Ds] Allergies Allergy/AdvReac Type Severity Reaction Status Date / Time capsaicin Allergy Rash/Hives/ Verified 02/13/24 12:41 Swelling Review of Systems ROS Statement: Those systems with pertinent positive or pertinent negative responses have been documented in the HPI. ROS Other: All systems not noted in ROS Statement are negative. Past Medical History Past Medical History: Diabetes Mellitus, Hypertension, Osteoarthritis (OA) Additional Past Medical History / Comment(s): KIDNEY STONES, History of Any Multi-Drug Resistant Organisms: None Reported Past Surgical History: Appendectomy, Breast Surgery, Cholecystectomy, Orthopedic Surgery, Tubal Ligation Additional Past Surgical History / Comment(s): carpal tunnel RIGHT WRIST, dental, abcess drainage left breast x2 (July 2016, March 2019, Aug 2019); RT breast I&D 05/22/21, 06/05/21; Left ankle surgery. Past Anesthesia/Blood Transfusion Reactions: No Reported Reaction Additional Past Anesthesia/Blood Transfusion Reaction / Comment(s): No blood transfusion to date Past Psychological History: Anxiety, Bipolar, Depression Smoking Status: Former smoker Past Alcohol Use History: None Reported Past Drug Use History: None Reported - Past Family History Mother Family Medical History: Cancer Additional Family Medical History / Comment(s): CERVICAL CANCER General Exam Limitations: no limitations General appearance: alert, in no apparent distress Head exam: Present: atraumatic, normocephalic, normal inspection Eye exam: Present: normal appearance, PERRL, EOMI. Absent: scleral icterus, conjunctival injection, periorbital swelling ENT exam: Present: normal exam, mucous membranes moist Neck exam: Present: normal inspection. Absent: tenderness, meningismus, lymphadenopathy Respiratory exam: Present: normal lung sounds bilaterally, chest wall tenderness (Patient has redness, swelling and fluctuance to the 3 o'clock position of the right breast. Suspected abscess measures approximately 4 x 3 cm. No active drainage. Surrounding cellulitis). Absent: respiratory distress, wheezes, rales, rhonchi, stridor Cardiovascular Exam: Present: regular rate, normal rhythm, normal heart sounds. Absent: systolic murmur, diastolic murmur, rubs, gallop, clicks GI/Abdominal exam: Present: soft, normal bowel sounds. Absent: distended, tenderness, guarding, rebound, rigid Extremities exam: Present: normal inspection, full ROM, normal capillary refill. Absent: tenderness, pedal edema, joint swelling, calf tenderness Back exam: Present: normal inspection Neurological exam: Present: alert, oriented X3, CN II-XII intact Psychiatric exam: Present: normal affect, normal mood Skin exam: Present: warm, dry, intact, normal color. Absent: rash Course Vital Signs 02/13/24 02/13/24 12:38 15:03 Temperature 99.5 F 98.7 F Pulse Rate 94 89 Respiratory 18 18 Rate Blood Pressure 139/82 137/59 O2 Sat by Pulse 98 96 Oximetry Procedures - Incision & Drainage Consent Obtained: verbal consent Indication: abscess Site: chest Anesthetic Used: lidocaine 1% Amount (mLs): 5 I&D Cleaning Method: Chloroprep Sterile Field Used?: Yes Scalpel Used: #11 Ultrasound used: Yes Needle Aspiration Performed?: Yes I&D Drainage Obtained: Pus Insertion of drain: No Culture Obtained?: No Complications: pain Medical Decision Making - Medical Decision Making Was pt. sent in by a medical professional or institution (Dr. PA, TAX DIRECTOR, urgent care, hospital, or fdc...) When possible be specific @ -No Did you speak to anyone other than the patient for history (EMS, parent, family, police, friend...)? What history was obtained from this source @ -No Did you review nursing and triage notes (agree or disagree)? Why? @ -I reviewed and agree with nursing and triage notes Were old charts reviewed (outside hosp., previous admission, EMS record, old EKG, old radiological studies, urgent care reports/EKG's, fdc records)? Report findings @ -I reviewed patient's last ED visit for the abscess on her leg for which she was treated with antibiotics Differential Diagnosis (chest pain, altered mental status, abdominal pain women, abdominal pain men, vaginal bleeding, weakness, fever, dyspnea, syncope, headache, dizziness, GI bleed, back pain, seizure, CVA, palpatations, mental health, musculoskeletal)? @ -Abscess, cellulitis, breast mass, breast cancer EKG interpreted by me (3pts min.). @ -Not done X-rays interpreted by me (1pt min.). @ -None done CT interpreted by me (1pt min.). @ -None done U/S interpreted by me (1pt. min.). @ -None done What testing was considered but not performed or refused? (CT, X-rays, U/S, labs)? Why? @ -None What meds were considered but not given or refused? Why? @ -None Did you discuss the management of the patient with other professionals (professionals i.e. Dr., PA, TAX DIRECTOR, lab, RT, psych nurse, transition social worker, electric meter installer, teacher, juvenile justice officer, porter sample case)? Give summary @ -No Was smoking cessation discussed for >3mins.? @ -No Was critical care preformed (if so, how long)? @ -No Were there social determinants of health that impacted care today? How? (Homelessness, low income, unemployed, alcoholism, drug addiction, transportation, low edu. Level, literacy, decrease access to med. care, fdc, rehab)? @ -No Was there de-escalation of care discussed even if they declined (Discuss DNR or withdrawal of care, Hospice)? DNR status @ -No What co-morbidities impacted this encounter? (DM, HTN, Smoking, COPD, CAD, Cancer, CVA, ARF, Chemo, Hep., AIDS, mental health diagnosis, sleep apnea, morbid obesity)? @ -None Was patient admitted / discharged? Hospital course, mention meds given and route, prescriptions, significant lab abnormalities, going to OR and other pertinent info. @ -Upon arrival patient was placed into room 31. Thorough history and physical exam was performed. I did attempt incision and drainage however patient did not tolerate this. Local anesthetic was used however patient did not obtain analgesia. I did perform needle drainage for which I did receive back approximately 2 cc of purulent white drainage. At this time the patient does have improvement and request me to stop any further intervention. She will be placed on Bactrim and Keflex once again and needs to follow-up with Dr. Familia Mendez for further management Undiagnosed new problem with uncertain prognosis? @ -No Drug Therapy requiring intensive monitoring for toxicity (Heparin, Nitro, Insuli n, Cardizem)? @ -No Were any procedures done? @ -No Diagnosis/symptom? @ -Acute right breast abscess, acute right breast cellulitis Acute, or Chronic, or Acute on Chronic? @ -Acute Uncomplicated (without systemic symptoms) or Complicated (systemic symptoms)? @ -Complicated Side effects of treatment? @ -No Exacerbation, Progression, or Severe Exacerbation? @ -No Poses a threat to life or bodily function? How? (Chest pain, [place], [place], pneumonia, PE, COPD, DKA, ARF, appy, cholecystitis, CVA, Diverticulitis, Homicidal, Suicidal, threat to staff... and all critical care pts) @ -No Disposition Clinical Impression: Abscess of breast Disposition: HOME SELF-CARE Condition: Stable Instructions (If sedation given, give patient instructions): Abscess Incision and Drainage (ED), Abscess (ED) Additional Instructions: Place warm compresses to the site. Take the antibiotics as directed. Call Dr. pan for an appointment and return for any new or worsening symptoms Prescriptions: Sulfamethox-Tmp 800-160Mg [Bactrim Ds] 2 each PO Q12HR #28 tab Cephalexin [Keflex] 500 mg PO Q6HR 1 Days #28 cap Is patient prescribed a controlled substance at d/c from ED?: No Referrals: None,Stated [Primary Care Provider] - 1-2 days Maren Pan MD [STAFF PHYSICIAN] - 1-2 days Time of Disposition: 14:55
[2024-02-13 15:29] VITALS: BP 137/59; PULSE 89; TEMP 98.7
== END 2024-02-13 15:03 | disposition home or self-care (01) ==
LOC: EC 12:33
DX: N61.1 Abscess of the breast and nipple (principal); Z87.891 Personal history of nicotine dependence; Z90.49 Acquired absence of other specified parts of digestive tract; Z88.8 Allergy status to other drugs, medicaments and biological substances
CPT/HCPCS: 99283; 96372; 10060; J2001; J1170

== ENCOUNTER 2024-03-01 16:08 | Emergency (ER) | payer BC ==
--- NOTE | 2024-03-01 16:37 | ED ---
Lower Extremity Injury HPI - General Chief Complaint: Extremity Injury, Lower Stated Complaint: fall-foot injury Time Seen by Provider: 03/01/24 16:35 Source: patient, RN notes reviewed Mode of arrival: wheelchair Limitations: no limitations - History of Present Illness Initial Comments: Patient is a 49-year-old female presenting to the ER with chief complaint of left foot/ankle pain. Patient states yesterday she was cleaning her house and had an extension cord running through the house for the vacuum. She states she went to take a step and the cord got in between her first and second digits of her left foot and she tripped and fell. Patient states she landed on her left side and twisted her ankle. Denies head injury, loss of consciousness, blood thinner use, dizziness, lightheadedness, chest pain, shortness of breath prior to incident. She reports movement is extremely painful. She states she woke up this morning and noticed her left great toe was significantly bruised. She states the pain wraps around to her lateral malleolus. She has a history of surgery on her ankle. Has been taking Motrin without relief. No other complaints at this time. - Related Data Home Medications Medication Instructions Recorded Confirmed OXcarbazepine [Trileptal] 300 mg PO BID 08/14/21 01/09/22 cloNIDine HCL 0.1 mg PO HS PRN 08/14/21 01/09/22 hydrOXYzine pamoate [Vistaril] 25 mg PO TID PRN 08/14/21 01/09/22 metFORMIN HCL [Glucophage] 500 mg PO AC-BID 08/14/21 01/09/22 Acetaminophen Tab [Tylenol] 650 mg PO Q4H PRN 01/09/22 01/09/22 QUEtiapine [SEROquel] 50 mg PO HS PRN 01/09/22 01/09/22 Previous Rx's Medication Instructions Recorded amLODIPine [Norvasc] 10 mg PO DAILY 30 Days tab 07/04/21 HYDROcodone/APAP 5-325MG [Dawson 1 tab PO Q4HR PRN #30 tab 01/11/22 5-325] Cephalexin [Keflex] 500 mg PO QID 10 Days #40 cap 01/23/23 Sulfamethox-Tmp 800-160Mg [Bactrim 1 tab PO Q12HR #28 tab 01/23/23 DS 800-160 mg] Cephalexin [Keflex] 500 mg PO Q12HR 10 Days #20 cap 02/03/24 Sulfamethox-Tmp 800-160Mg [Bactrim 1 tab PO Q12HR 10 Days #20 tab 02/03/24 DS 800-160 mg] Cephalexin [Keflex] 500 mg PO Q6HR 1 Days #28 cap 02/13/24 Sulfamethox-Tmp 800-160Mg [Bactrim 2 each PO Q12HR #28 tab 02/13/24 Ds] Allergies Allergy/AdvReac Type Severity Reaction Status Date / Time capsaicin Allergy Rash/Hives/ Verified 03/01/24 16:28 Swelling Review of Systems ROS Statement: Those systems with pertinent positive or pertinent negative responses have been documented in the HPI. ROS Other: All systems not noted in ROS Statement are negative. Past Medical History Past Medical History: Diabetes Mellitus, Hypertension, Osteoarthritis (OA) Additional Past Medical History / Comment(s): KIDNEY STONES, History of Any Multi-Drug Resistant Organisms: None Reported Past Surgical History: Appendectomy, Breast Surgery, Cholecystectomy, Orthopedic Surgery, Tubal Ligation Additional Past Surgical History / Comment(s): carpal tunnel RIGHT WRIST, dental, abcess drainage left breast x2 (July 2016, March 2019, Aug 2019); RT breast I&D 05/22/21, 06/05/21; Left ankle surgery. Past Anesthesia/Blood Transfusion Reactions: No Reported Reaction Additional Past Anesthesia/Blood Transfusion Reaction / Comment(s): No blood transfusion to date Past Psychological History: Anxiety, Bipolar, Depression Smoking Status: Former smoker Past Alcohol Use History: None Reported Past Drug Use History: None Reported - Past Family History Mother Family Medical History: Cancer Additional Family Medical History / Comment(s): CERVICAL CANCER General Exam Limitations: no limitations General appearance: alert, in no apparent distress Head exam: Present: atraumatic, normocephalic, normal inspection Respiratory exam: Present: normal lung sounds bilaterally. Absent: respiratory distress, wheezes, rales, rhonchi, stridor Cardiovascular Exam: Present: regular rate, normal rhythm, normal heart sounds. Absent: systolic murmur, diastolic murmur, rubs, gallop, clicks Extremities exam: Present: other (Edema to left lateral malleolus with mild ecchymosis. Edema to midfoot and first digit. Ecchymosis of great left toe ) Neurological exam: Present: alert, oriented X3, CN II-XII intact Psychiatric exam: Present: normal affect, normal mood Skin exam: Present: warm, dry, intact, normal color. Absent: rash Course Vital Signs 03/01/24 16:27 Temperature 98.1 F Pulse Rate 81 Respiratory 16 Rate Blood Pressure 120/87 O2 Sat by Pulse 97 Oximetry Medical Decision Making - Medical Decision Making Was pt. sent in by a medical professional or institution (, ANDREW, HOTEL VALET ATTENDANT, urgent care, hospital, or prison...) When possible be specific @ -No Did you speak to anyone other than the patient for history (EMS, parent, family, police, friend...)? What history was obtained from this source @ -No Did you review nursing and triage notes (agree or disagree)? Why? @ -I reviewed and agree with nursing and triage notes Were old charts reviewed (outside hosp., previous admission, EMS record, old EKG, old radiological studies, urgent care reports/EKG's, prison records)? Report findings @ -No old charts were reviewed Differential Diagnosis (chest pain, altered mental status, abdominal pain women, abdominal pain men, vaginal bleeding, weakness, fever, dyspnea, syncope, headache, dizziness, GI bleed, back pain, seizure, CVA, palpatations, mental health, musculoskeletal)? @ -Differential Musculoskeletal: Muscular strain, contusion, ligament sprain, fracture, arthritis, septic arthritis, bursitis, cellulitis, muscle spasm, nerve compression, DVT, arterial occlusion, herpes zoster, electrolyte abnormality, tumor.... This is not meant to be in all inclusive list EKG interpreted by me (3pts min.). @ -None X-rays interpreted by me (1pt min.). @ -Left ankle and foot x-rays interpreted by me negative for acute process. CT interpreted by me (1pt min.). @ -None done U/S interpreted by me (1pt. min.). @ -None done What testing was considered but not performed or refused? (CT, X-rays, U/S, labs)? Why? @ -None What meds were considered but not given or refused? Why? @ -None Did you discuss the management of the patient with other professionals (professionals i.e. , ANDREW, HOTEL VALET ATTENDANT, lab, RT, psych nurse, professor of social work, skidway worker, teacher, dog control officer, family preservation caseworker)? Give summary @ -No Was smoking cessation discussed for >3mins.? @ -No Was critical care preformed (if so, how long)? @ -No Were there social determinants of health that impacted care today? How? (Homelessness, low income, unemployed, alcoholism, drug addiction, transportation, low edu. Level, literacy, decrease access to med. care, detention, rehab)? @ -No Was there de-escalation of care discussed even if they declined (Discuss DNR or withdrawal of care, Hospice)? DNR status @ -No What co-morbidities impacted this encounter? (DM, HTN, Smoking, COPD, CAD, Cancer, CVA, ARF, Chemo, Hep., AIDS, mental health diagnosis, sleep apnea, morbid obesity)? @ -None Was patient admitted / discharged? Hospital course, mention meds given and route, prescriptions, significant lab abnormalities, going to OR and other pertinent info. @ -Discharge. Patient is a 49-year-old female presented to the ER with a chief complaint of a fall. History and physical exam completed. Vitals stable. Patient in no signs of acute distress and nontoxic-appearing. Left lower extremity neurovascular intact. No acute neurological findings on exam. Ecchymosis to left great toe with tenderness to midfoot. X-rays obtained negative for acute process. Patient received IM Toradol for pain control with mild relief. Results discussed with patient, all questions answered. Patient placed in Marcos wrap. I advised follow-up with orthopedics. Referral given. I advised alternating Tylenol and/or Motrin every 4-6 hours for pain control. Return parameters discussed. Patient discharged stable condition with follow-up to PCP/orthopedics. Patient verbally expressed understanding and agreement with care plan. Case discussed with ED attending, Dr. Estevez. Undiagnosed new problem with uncertain prognosis? @ -No Drug Therapy requiring intensive monitoring for toxicity (Heparin, Nitro, Insulin, Cardizem)? @ -No Were any procedures done? @ -No Diagnosis/symptom? @ -Ankle sprain Acute, or Chronic, or Acute on Chronic? @ -Acute Uncomplicated (without systemic symptoms) or Complicated (systemic symptoms)? @ -Uncomplicated Side effects of treatment? @ -No Exacerbation, Progression, or Severe Exacerbation? @ -No Poses a threat to life or bodily function? How? (Chest pain, [place], [place], pneumonia, PE, COPD, DKA, ARF, appy, cholecystitis, CVA, Diverticulitis, Homicidal, Suicidal, threat to staff... and all critical care pts) @ -No - Radiology Data Radiology results: report reviewed, image reviewed Disposition Clinical Impression: Ankle sprain Disposition: HOME SELF-CARE Condition: Stable Instructions (If sedation given, give patient instructions): Ankle Sprain (ED) Additional Instructions: Follow-up with orthopedics. You may take [id number] Tylenol and Motrin fo r pain control. Return to the ER for any new or worsening concerns. Is patient prescribed a controlled substance at d/c from ED?: No Referrals: None,Stated [Primary Care Provider] - 1-2 days Mayco Hand DO [Doctor of Osteopathic Medicine] - 1-2 days Time of Disposition: 18:10
[2024-03-01] MEDS: KETOROLAC 15 MG/ML 1 ML VIAL IM STA (16:46)
--- NOTE | 2024-03-01 17:37 | XR ---
EXAMINATION TYPE: XR foot complete LT, XR ankle complete LT DATE OF EXAM: 03/01/2024 4:58 PM CLINICAL INDICATION:Female, 49 years old with history of pain; [facility] COMPARISON: None TECHNIQUE: XR foot complete LT, XR ankle complete LT examined in the AP, oblique, and lateral project ions. FINDINGS: No evidence of any acute osseous pathology. No evidence of soft tissue swelling. Joints are preserve d. Calcaneal plantar spurring. IMPRESSION: No evidence of acute fracture.
[2024-03-01 19:47] VITALS: BP 128/97; PULSE 69; RESP 20; TEMP 97.8
== END 2024-03-01 18:48 | disposition home or self-care (01) ==
LOC: EC 16:08
DX: S93.402A Sprain of unspecified ligament of left ankle, initial encounter (principal); S90.112A Contusion of left great toe without damage to nail, initial encounter; Z91.018 Allergy to other foods; Z87.891 Personal history of nicotine dependence; W01.0XXA Fall on same level from slipping, tripping and stumbling without subsequent striking against object, initial encounter; X50.1XXA Overexertion from prolonged static or awkward postures, initial encounter; Y92.009 Unspecified place in unspecified non-institutional (private) residence as the place of occurrence of the external cause; Y93.E5 Activity, floor mopping and cleaning
CPT/HCPCS: 73610; 73630; 99283; 96372; J1885

== ENCOUNTER 2024-05-05 19:45 | Emergency (ER) | payer BC ==
[2024-05-05 19:53] VITALS: RESP 18
[2024-05-05] MEDS: HYDROmorphone 1 MG/ML 1 ML SYRINGE IM STA (22:20)
[2024-05-05] MEDS: LIDOCAINE 1% INJ 10MG/ML (20 ML MDV) SQ ONE (22:20)
--- NOTE | 2024-05-05 22:53 | ED ---
General Adult HPI - General Chief complaint: Skin/Abscess/Foreign Body Stated complaint: Abscess on Right breast Time Seen by Provider: 05/05/24 21:05 Source: patient, RN notes reviewed Mode of arrival: ambulatory Limitations: no limitations - History of Present Illness Initial comments: 49-year-old female presents to the emergency department for evaluation of breast abscess. She states that this is in the region of the left areola and nipple. She states that she first noticed this morning. She states that it has worsened throughout the day. She does report a history of this and multiple surgeries in the past with Dr. Fajardo. She denies fever, chills, nausea, vomiting. - Related Data Home Medications Medication Instructions Recorded Confirmed OXcarbazepine [Trileptal] 300 mg PO BID 08/14/21 01/09/22 cloNIDine HCL 0.1 mg PO HS PRN 08/14/21 01/09/22 hydrOXYzine pamoate [Vistaril] 25 mg PO TID PRN 08/14/21 01/09/22 metFORMIN HCL [Glucophage] 500 mg PO AC-BID 08/14/21 01/09/22 Acetaminophen Tab [Tylenol] 650 mg PO Q4H PRN 01/09/22 01/09/22 QUEtiapine [SEROquel] 50 mg PO HS PRN 01/09/22 01/09/22 Previous Rx's Medication Instructions Recorded amLODIPine [Norvasc] 10 mg PO DAILY 30 Days tab 07/04/21 HYDROcodone/APAP 5-325MG [[place] 1 tab PO Q4HR PRN #30 tab 01/11/22 5-325] Cephalexin [Keflex] 500 mg PO QID 10 Days #40 cap 01/23/23 Sulfamethox-Tmp 800-160Mg [Bactrim 1 tab PO Q12HR #28 tab 01/23/23 DS 800-160 mg] Cephalexin [Keflex] 500 mg PO Q12HR 10 Days #20 cap 02/03/24 Sulfamethox-Tmp 800-160Mg [Bactrim 1 tab PO Q12HR 10 Days #20 tab 02/03/24 DS 800-160 mg] Cephalexin [Keflex] 500 mg PO Q6HR 1 Days #28 cap 02/13/24 Sulfamethox-Tmp 800-160Mg [Bactrim 2 each PO Q12HR #28 tab 02/13/24 Ds] Cephalexin [Keflex] 500 mg PO Q6HR #40 cap 05/05/24 Sulfamethox-Tmp 800-160Mg [Bactrim 1 tab PO Q12HR #20 tab 05/05/24 DS 800-160 mg] Allergies Allergy/AdvReac Type Severity Reaction Status Date / Time capsaicin Allergy Rash/Hives/ Verified 03/01/24 16:28 Swelling Review of Systems ROS Statement: Those systems with pertinent positive or pertinent negative responses have been documented in the HPI. ROS Other: All systems not noted in ROS Statement are negative. Past Medical History Past Medical History: Diabetes Mellitus, Hypertension, Osteoarthritis (OA) Additional Past Medical History / Comment(s): KIDNEY STONES, History of Any Multi-Drug Resistant Organisms: None Reported Past Surgical History: Appendectomy, Breast Surgery, Cholecystectomy, Orthopedic Surgery, Tubal Ligation Additional Past Surgical History / Comment(s): carpal tunnel RIGHT WRIST, dental, abcess drainage left breast x2 (July 2016, March 2019, Aug 2019); RT breast I&D 05/22/21, 06/05/21; Left ankle surgery. Past Anesthesia/Blood Transfusion Reactions: No Reported Reaction Additional Past Anesthesia/Blood Transfusion Reaction / Comment(s): No blood transfusion to date Past Psychological History: Anxiety, Bipolar, Depression Smoking Status: Former smoker Past Alcohol Use History: None Reported Past Drug Use History: None Reported - Past Family History Mother Family Medical History: Cancer Additional Family Medical History / Comment(s): CERVICAL CANCER General Exam Limitations: no limitations General appearance: alert, in no apparent distress Head exam: Present: atraumatic, normocephalic, normal inspection Eye exam: Present: normal appearance, PERRL, EOMI. Absent: scleral icterus, conjunctival injection, periorbital swelling ENT exam: Present: normal exam, mucous membranes moist Respiratory exam: Present: normal lung sounds bilaterally. Absent: respiratory distress, wheezes, rales, rhonchi, stridor Cardiovascular Exam: Present: regular rate, normal rhythm, normal heart sounds. Absent: systolic murmur, diastolic murmur, rubs, gallop, clicks Extremities exam: Present: normal inspection, full ROM, normal capillary refill. Absent: tenderness, pedal edema, joint swelling, calf tenderness Back exam: Present: normal inspection Neurological exam: Present: alert, oriented X3 Psychiatric exam: Present: normal affect, normal mood Skin exam: Present: warm, dry, other (abscess over the left areola). Absent: intact, normal color Course Vital Signs 05/05/24 05/05/24 19:49 23:53 Temperature 98.2 F 98.1 F Pulse Rate 91 65 Respiratory 18 18 Rate Blood Pressure 155/73 125/82 O2 Sat by Pulse 95 97 Oximetry Medical Decision Making - Medical Decision Making Was pt. sent in by a medical professional or institution (ANDREW Christy, [employer]ING SUPERVISOR, urgent care, hospital, or residential...) When possible be specific @ -No Did you speak to anyone other than the patient for history (EMS, parent, family, police, friend...)? What history was obtained from this source @ -No Did you review nursing and triage notes (agree or disagree)? Why? @ -I reviewed and agree with nursing and triage notes Were old charts reviewed (outside hosp., previous admission, EMS record, old EKG, old radiological studies, urgent care reports/EKG's, residential records)? Report findings @ -No old charts were reviewed Differential Diagnosis (chest pain, altered mental status, abdominal pain women, abdominal pain men, vaginal bleeding, weakness, fever, dyspnea, syncope, headache, dizziness, GI bleed, back pain, seizure, CVA, palpatations, mental health, musculoskeletal)? @ -Breast abscess, cyst, sepsis, this list is not all inclusive EKG interpreted by me (3pts min.). @ -None X-rays interpreted by me (1pt min.). @ -None done CT interpreted by me (1pt min.). @ -None done U/S interpreted by me (1pt. min.). @ -None done What testing was considered but not performed or refused? (CT, X-rays, U/S, labs)? Why? @ -None What meds were considered but not given or refused? Why? @ -None Did you discuss the management of the patient with other professionals (professionals i.e. ANDREW Christy, [employer]ING SUPERVISOR, lab, RT, psych nurse, social studies teacher, access nurse, teacher, radio division officer, keycase assembler)? Give summary @ -No Was smoking cessation discussed for >3mins.? @ -No Was critical care preformed (if so, how long)? @ -No Were there social determinants of health that impacted care today? How? (Homelessness, low income, unemployed, alcoholism, drug addiction, transportation, low edu. Level, literacy, decrease access to med. care, assisted, rehab)? @ -No Was there de-escalation of care discussed even if they declined (Discuss DNR or withdrawal of care, Hospice)? DNR status @ -No What co-morbidities impacted this encounter? (DM, HTN, Smoking, COPD, CAD, Cancer, CVA, ARF, Chemo, Hep., AIDS, mental health diagnosis, sleep apnea, morbid obesity)? @ -None Was patient admitted / discharged? Hospital course, mention meds given and route, prescriptions, significant lab abnormalities, going to OR and other pertinent info. @ -[Discharged. Patient presented to ED with breast abscess. She has a history of similar and follows with Dr. Fajardo. Vital signs are stable. Patient has abscess to left breast. Patient reports that it started draining on its own. Patient will be discharged with antibiotics. Advised to follow up with her breast surgeon. Patient understanding and agreeable with discharge plan. Stable at time of discharge. Case discussed with Dr. Salgado. Undiagnosed new problem with uncertain prognosis? @ -No Drug Therapy requiring intensive monitoring for toxicity (Heparin, Nitro, Insulin, Cardizem)? @ -No Were any procedures done? @ -No Diagnosis/symptom? @ -Breast abscess Acute, or Chronic, or Acute on Chronic? @ -Acute Uncomplicated (without systemic symptoms) or Complicated (systemic symptoms)? @ -uncomplicated Side effects of treatment? @ -No Exacerbation, Progression, or Severe Exacerbation? @ -No Poses a threat to life or bodily function? How? (Chest pain, USA, CT, pneumonia, PE, COPD, DKA, ARF, appy, cholecystitis, CVA, Diverticulitis, Homicidal, Suicidal, threat to staff... and all critical care pts) @ -No Disposition Clinical Impression: Breast abscess Disposition: HOME SELF-CARE Condition: Stable Instructions (If sedation given, give patient instructions): Abscess Incision and Drainage (ED), Abscess (ED) Additional Instructions: Please follow up with Dr. Fajardo. Return to the emergency department for new or worsening symptoms. Prescriptions: Sulfamethox-Tmp 800-160Mg [Bactrim DS 800-160 mg] 1 tab PO Q12HR #20 tab Cephalexin [Keflex] 500 mg PO Q6HR #40 cap Is patient prescribed a controlled substance at d/c from ED?: No Referrals: None,Stated [Primary Care Provider] - 1-2 days
[2024-05-05 23:55] VITALS: BP 125/82; PULSE 65; TEMP 98.1
== END 2024-05-05 23:54 | disposition home or self-care (01) ==
LOC: EC 19:45
DX: N61.1 Abscess of the breast and nipple (principal); Z87.891 Personal history of nicotine dependence; Z91.018 Allergy to other foods
CPT/HCPCS: 99283; 96372 ×2; 87070; 87205; 87075; J2001; J1170

== ENCOUNTER → 2024-05-13 | Outpatient (CLI) | payer BC ==
[2024-05-13 10:23] VITALS: BP 162/100; PULSE 77; RESP 17; TEMP 98.8
--- NOTE | 2024-05-13 11:00 | P.GSCN ---
History of Present Illness Consult date: 05/13/24 Reason for Consult: breast abscess History of present illness: History of Present Illness H&P Date: 05-13-24 Chief Complaint: Pain/swelling right breast Yovana is a 49 year old female seen in the ER on 05-05-24 with a complaint of a right breast abscess. This spontaneously drained. She was given an antibiotic, Bactrim and Keflex this resulted in resulation of the lesion. Three days ago she complained of pain in the right breast. This morning she noted an abscess in the right breast. Had multiple breast abscesses drained in the past. The most recent time was 2 years ago on the right breast. She has had 3 drainages on the right breast and 2 on the left. The left breast she was actually admitted to the hospital for IV antibiotic therapy in 2019. She has not had any recent radiographic studies of her breast. She does complain of pain at the right nipple which extends to her posterior shoulder with any palpation. Since that time she was well with no further abscesses until approximately a week ago. She is not complaining of any fever or chills. Denies any recent trauma in her breast. She recently had her teeth extracted and new dentures. This was approximately 1 year ago. She has lost about 15 pounds. Subcutaneous swelling on the right flank. Otherwise she does not have any skin lesions or abscesses that are known. Caffeine: 2 cup/day Nicotine: smoke 1 pack per day for 30 years stopped 2 years ago Marijuana 3 times a day Chocolate: daily BCP: used in the remote past 4 months FAMILY history: mother: cervical cancer maternal great aunt: breast cancers Hormonal history: Menarche:15 , breast fed:no, age at first : 26 last menstraul period 2019 Hormones: none Surgical History: 2 left breast abscesses drained; 3 right breast abscesses drained cervical conization Appendectomy Cholecystectomy Carpal tunnel right hand teeth removed Medical history: HTN diabetes bipolar Social History: Nicotine: Stopped smoking 2 years ago Alcohol: Negative Drugs: Negative Marijuana 3 times a day Review of Systems - Constitutional Reports as per HPI - EENT Eyes: denies blurred vision Ears: deny: decreased hearing, tinnitus Ears, nose, mouth and throat: Denies dysphagia - Breasts bilateral: as per HPI - Cardiovascular Denies chest pain, Denies shortness of breath - Respiratory Denies cough, Denies 7 - Gastrointestinal Reports as per HPI - Genitourinary Genitourinary: Denies dysuria, Denies hematuria - Musculoskeletal Reports as per HPI - Integumentary Reports as per HPI - Neurological Denies headaches, Denies syncope - Psychiatric Reports anxiety, Reports depression - Endocrine Reports weight change - Hematologic/Lymphatic Denies easy bleeding, Denies easy bruising - Allergic/Immunologic Reports seasonal allergies Past Medical History Past Medical History: Diabetes Mellitus, Hypertension, Osteoarthritis (OA) Additional Past Medical History / Comment(s): KIDNEY STONES, History of Any Multi-Drug Resistant Organisms: None Reported Past Surgical History: Appendectomy, Breast Surgery, Cholecystectomy, Orthopedic Surgery, Tubal Ligation Additional Past Surgical History / Comment(s): carpal tunnel RIGHT WRIST, dental, abcess drainage left breast x2 (July 2016, March 2019, Aug 2019); RT breast I&D 05/22/21, 06/05/21; Left ankle surgery. Past Anesthesia/Blood Transfusion Reactions: No Reported Reaction Additional Past Anesthesia/Blood Transfusion Reaction / Comm: No blood transfusion to date Past Psychological History: Anxiety, Bipolar, Depression Additional Psychological History / Comment(s): Maintained with healthy coping mechanisms; diet and exericse (only suffers from depressive disorder, not the manic type) Smoking Status: Former smoker Past Alcohol Use History: None Reported Additional Past Alcohol Use History / Comment(s): STARTED SMOKING AT AGE 17 QUIT SMOKING March 16, 2021, SMOKED 1PPD Past Drug Use History: None Reported Additional Drug Use History / Comment(s): COCAINEAND MARIJUANA -"YEARS AGO " - Past Family History Mother Family Medical History: Cancer Additional Family Medical History / Comment(s): CERVICAL CANCER Medications and Allergies Home Medications Medication Instructions Recorded Confirmed Type amLODIPine [Norvasc] 10 mg PO DAILY 30 Days tab 07/04/21 05/13/24 Rx OXcarbazepine [Trileptal] 300 mg PO BID 08/14/21 05/13/24 History cloNIDine HCL 0.1 mg PO HS PRN 08/14/21 05/13/24 History hydrOXYzine pamoate [Vistaril] 25 mg PO TID PRN 08/14/21 05/13/24 History metFORMIN HCL [Glucophage] 500 mg PO AC-BID 08/14/21 05/13/24 History Acetaminophen Tab [Tylenol] 650 mg PO Q4H PRN 01/09/22 05/13/24 History QUEtiapine [SEROquel] 50 mg PO HS PRN 01/09/22 05/13/24 History HYDROcodone/APAP 5-325MG [[place] 1 tab PO Q4HR PRN #30 tab 01/11/22 05/13/24 Rx 5-325] Allergies Allergy/AdvReac Type Severity Reaction Status Date / Time capsaicin Allergy Rash/Hives/ Verified 05/13/24 10:20 Swelling Surgical - Exam Vital Signs Temp Pulse Resp BP Pulse Ox 98.8 F 77 17 162/100 99 05/13/24 10:21 05/13/24 10:21 05/13/24 10:21 05/13/24 10:21 05/13/24 10:21 - General moderate distress - Eyes normal ocular movement - Neck trachea midline - Respiratory normal respiratory effort - Cardiovascular Heart Sounds: normal: S1, S2 - Abdomen Abdomen: soft, non tender, no guarding, no rigid, no rebound - Integumentary normal turgor - Musculoskeletal normal gait - Psychiatric oriented to time, oriented to place, memory intact Breast Exam: BRA: 3XL inspection: Swelling right breast periareolar region with some purulent thick drainage, mild erythema at the site, left periareolar region sebum like drainage Palpation: Right breast: Multi positional exam nodular area of swelling in the medial periareolar region, no dominant masses or nodules of concern within the breast, fullness behind the nipple areolar complex, no other dominant masses or nodules of concern Right axilla: No adenopathy of concern Left breast: Multi positional exam no dominant masses or nodules of concern, in the periareolar region there is some thick sebum like drainage in the medial aspect Left axilla: No adenopathy of concern Assessment and Plan Assessment: Impression: Chronic breast abscesses bilaterally Erythema/nodularity/minimal drainage right periareolar region with tenderness at that site Left breast periareolar area some sebum like drainage Plan: Bilateral ultrasound of the breast Patient will not tolerate a mammogram at this time secondary to tenderness related to the infectious process in the right breast Probable I&D of right breast area
== END ==
LOC: WWCWWP 09:22
PROVIDERS: ATTEND Surgery
DX: N61.1 Abscess of the breast and nipple (principal); I10 Essential (primary) hypertension; E11.9 Type 2 diabetes mellitus without complications; F41.9 Anxiety disorder, unspecified; M19.90 Unspecified osteoarthritis, unspecified site; Z87.891 Personal history of nicotine dependence; Z79.84 Long term (current) use of oral hypoglycemic drugs; Z91.018 Allergy to other foods
CPT/HCPCS: 87070; 87075; 87205

== ENCOUNTER → 2024-05-13 | Outpatient (CLI) | payer BC ==
--- NOTE | 2024-05-13 11:37 | USB ---
Reason for Exam: Clinical finding. Patient History: 08/06/2019, Benign Core Biopsy on the left side. Risk Values: Carmenza 5 year model risk: 0.8%. NCI Lifetime model risk: 7.3%. Technique: Method: Targeted. Findings: The retroareolar of both breasts was scanned. Retroareolar phlegmon noted right breast measuring 1.4 x 0.7 cm. No drainable abscess seen at this time.. Overall Assessment: Probably benign, BI-RAD 3 Management: Diagnostic Breast Ultrasound of the right breast in 1 month. A clinical breast exam by your physician is recommended on an annual basis and results should be correlated with mammographic findings. This exam should not preclude additional follow-up of suspicious palpable abnormalities. Results were given to the patient verbally at the time of exam. Electronically signed and approved by: Zack Cantor M.D. Radiologis
== END | disposition home or self-care (01) ==
LOC: RADUSWWP 11:09
PROVIDERS: ATTEND Surgery
DX: N64.4 Mastodynia (principal); N60.09 Solitary cyst of unspecified breast

== ENCOUNTER 2024-05-18 12:13 | Day surgery (SDC) | payer BC ==
[~2024-05-18 12:13] MED LIST: HYDROmorphone 0.5 MG/0.5 ML SYRINGE IVP PRN
[2024-05-18 12:47] LABS: Glucose,Whole Blood 96 mg/dL (70-110)
[2024-05-18] MEDS: IV FLUID CONTINUATION 1,000 ML IV ONE (12:48)
[2024-05-18] MEDS: ONDANSETRON 4 MG/2 ML VIAL IVP ONE (12:53)
[2024-05-18] MEDS: LACTATED RINGERS 1,000 ML IV SCH (12:53)
[2024-05-18] MEDS: HEPARIN SODIUM,PORCINE 5,000 UNIT/ML 1 ML VIAL SQ PRN (12:54)
[2024-05-18] MEDS: ACETAMINOPHEN TAB 500 MG TAB PO PRN (12:54)
[2024-05-18] MEDS: DEXAMETHASONE SOD PHOSPHATE 4 MG/ML 1 ML VIAL IV ONE (12:54)
[2024-05-18] MEDS ORDERED: PHENYLEPHRINE 10 MG/ML VIAL ONE (16:19)
[2024-05-18] MEDS ORDERED: KETOROLAC 15 MG/ML 1 ML VIAL ONE (16:19)
[2024-05-18] MEDS ORDERED: LIDOCAINE 1% INJ 10MG/ML (20 ML MDV) ONE (16:19)
[2024-05-18] MEDS ORDERED: HYDROmorphone (PF) 1 MG/ML ONE (16:19)
[2024-05-18] MEDS ORDERED: MIDAZOLAM 2 MG/2 ML VIAL ONE (16:19)
[2024-05-18] MEDS ORDERED: PROPOFOL 10 MG/ML 20 ML VIAL IV ONE (16:19)
[2024-05-18] MEDS ORDERED: fentaNYL (PF) 50 MCG/ML 2 ML AMP ONE (16:19)
--- NOTE | 2024-05-18 17:08 | P.BCAON ---
Date of Procedure: 05/18/24 Preoperative Diagnosis: Bilateral periareolar breast abscesses Postoperative Diagnosis: Same Procedure(s) Performed: Excision of chronic granulation tissue bilateral periareolar chronic abscesses Anesthesia: NASH Surgeon: Maren Fajardo Estimated Blood Loss (ml): 10 IV fluids (ml): 400 Pathology: other (Chronic abscess cavities bilateral breast) Condition: stable Disposition: same day Description of Procedure: The patient was taken to the operating room and following induction of anesthesia both breast were prepped and draped in a sterile fashion. The right direct breast was approached initially. A chronic abscess in the lateral periareolar region was noted. Wide excision of this tissue was performed. This was granulation tissue and friable. It was well cauterized. Cultures were obtained. It was well irrigated. It was packed after we are sure that hemostasis was attained. Following this the left periareolar region was approached. Additionally there appeared to be a chronic abscess in the medial periareolar region. The chronic abscess cavity was excised. Cultures were obtained. The wound was well irrigated. Hemostasis was obtained. Following the fact that hemostasis was attained the wound was packed with 2 inch iodoform gauze. The patient tolerated the procedure in stable condition. All instrument and sponge counts were correct at the end of the case.
[2024-05-18 17:20] VITALS: TEMP 98
[2024-05-18 18:38] VITALS: BP 127/74; PULSE 75; RESP 16
== END 2024-05-18 18:36 | disposition home health service (06) ==
LOC: OR 12:13
PROVIDERS: ATTEND Surgery
DX: N61.1 Abscess of the breast and nipple (principal); I10 Essential (primary) hypertension; E11.9 Type 2 diabetes mellitus without complications; F31.9 Bipolar disorder, unspecified; F41.9 Anxiety disorder, unspecified; K21.9 Gastro-esophageal reflux disease without esophagitis; Z88.6 Allergy status to analgesic agent; Z79.84 Long term (current) use of oral hypoglycemic drugs; Z79.899 Other long term (current) drug therapy; Z87.891 Personal history of nicotine dependence
CPT/HCPCS: 87070; 87205; 87075; 19120; J2250; J1644; J1100; J0690; J2405; J2001; J3010; J1170; J1885; J2704; J2371; 88304

== ENCOUNTER → 2024-05-28 | Outpatient (CLI) | payer BC ==
[2024-05-28 13:45] VITALS: BP 169/94; PULSE 65; RESP 18; TEMP 98.6
--- NOTE | 2024-05-28 14:02 | P.BCPO ---
Progress Note - Text Progress Note Date: 05/28/24 Patient is post op resection of bilateral breast chronic abscess tissue on 05-18-24. She is doing well at this time. She has been packing both breast and they are healing without difficulty. Pathology reviewed with the patient and her it is benign Examination: Bilateral periareolar incisions are clean and granulating well Impression: Patient doing well postoperatively Plan: Continue present care Follow-up in 1 month Follow-up sooner any questions or concerns
== END ==
LOC: WWCWWP 13:06
PROVIDERS: ATTEND Surgery
DX: N61.1 Abscess of the breast and nipple (principal); F17.200 Nicotine dependence, unspecified, uncomplicated; Z98.890 Other specified postprocedural states; Z91.018 Allergy to other foods

== ENCOUNTER 2024-07-29 21:21 | Observation (INO) | payer BC ==
[2024-07-29 21:52] LABS: Basophils % (A) 1 %; Eosinophils # (A) 0.3 k/uL (0-0.7); Eosinophils % (A) 6 %; HCT 40.7 % (34.0-46.0); HGB 13.4 gm/dL (11.4-16.0); Lymphocytes # (A) 1.4 k/uL (1.0-4.8); Lymphocytes % (A) 28 %; MCH 29.4 pg (25.0-35.0); MCV 89.1 fL (80.0-100.0); Mean Platelet Volume 10.3; Monocytes # (A) 0.3 k/uL (0-1.0); Monocytes % (A) 7 %; Neutrophils # (A) 2.8 k/uL (1.3-7.7); Neutrophils % (A) 57 %; RBC 4.56 m/uL (3.80-5.40); RDW 13.6 % (11.5-15.5); WBC 4.9 k/uL (3.8-10.6)
[2024-07-29 22:01] LABS: INR 1.1 (<1.2); Partial Thromboplastin Time 27.1 sec (22.0-30.0); Prothrombin Time 12.1 sec (10.0-12.5)
--- NOTE | 2024-07-29 22:03 | ED ---
Chest Pain HPI - General Source: patient, RN notes reviewed Mode of arrival: ambulatory Limitations: no limitations <Tali Matso - Last Filed: 07/29/24 22:01> - History of Present Illness MD Complaint: chest pain Onset/Timin -: days(s) Onset: during rest Pain Location: left chest Pain Radiation: LUE, back Severity: moderate Quality: heaviness Consistency: constant Improves With: nothing Worsens With: nothing Anginal Symptoms: nausea Treatments Prior to Arrival: none <Anish Sosa - Last Filed: 08/16/24 08:30> - General Chief Complaint: Chest Pain Stated Complaint: chest pain Time Seen by Provider: 07/29/24 21:38 - History of Present Illness Initial Comments: [id number] female presents emergency department chief complaint of left-sided chest pain with radiation into her left back and arm that has been intermittent since yesterday. Patient denies shortness of breath, difficulty breathing. States that she has been feeling nauseous as well. States that this pain is described as a heaviness sensation. History of high blood pressure. (Tali Matos) Patient presents to have evaluation of left-sided chest pain radiating to left arm. She had onset yesterday in the evening. Initially had a 10-minute period of pain that resolved. It recurred later tonight and then came on today and has been more constant. Patient denies diaphoresis, dyspnea, palpitations, lightheadedness or syncope. She did have some associated nausea. (Anish Sosa) - Related Data Previous Rx's Medication Instructions Recorded Aspirin 81 mg PO DAILY tab 08/01/24 Acetaminophen Tab [Tylenol] 1,000 mg PO Q6HR PRN tab 08/13/24 Atorvastatin [Lipitor] 40 mg PO DAILY #30 tab 08/13/24 Clopidogrel [Plavix] 75 mg PO DAILY #30 tab 08/13/24 Metoprolol Tartrate [Lopressor] 25 mg PO BID #60 tab 08/13/24 Pantoprazole [Protonix] 40 mg PO DAILY #30 tab 08/13/24 Cephalexin [Keflex] 500 mg PO Q6HR #40 cap 08/14/24 Allergies Allergy/AdvReac Type Severity Reaction Status Date / Time capsaicin Allergy Rash/Hives/ Verified 08/09/24 06:12 Swelling Review of Systems ROS Other: All systems not noted in ROS Statement are negative. <Tali Matos - Last Filed: 07/29/24 22:01> ROS Other: All systems not noted in ROS Statement are negative. Constitutional: Denies: fever, chills Respiratory: Denies: cough, dyspnea Cardiovascular: Reports: chest pain. Denies: palpitations, orthopnea, edema, syncope Gastrointestinal: Reports: nausea. Denies: abdominal pain, vomiting, diarrhea, melena, hematochezia Genitourinary: Denies: dysuria, hematuria Musculoskeletal: Denies: back pain Skin: Denies: rash Neurological: Denies: headache, weakness, numbness <Anish Sosa - Last Filed: 08/16/24 08:30> ROS Statement: Those systems with pertinent positive or pertinent negative responses have been documented in the HPI. Past Medical History Past Medical History: Diabetes Mellitus, Hypertension, Osteoarthritis (OA), Skin Disorder Additional Past Medical History / Comment(s): KIDNEY STONES, diet controlled diabetic-no longer needs med, no longer needs BP med, seasonal allergies, abscess right breast, left breast hx. of abscess, yeast in skin fold in abd. History of Any Multi-Drug Resistant Organisms: None Reported Past Surgical History: Appendectomy, Breast Surgery, Cholecystectomy, Orthopedic Surgery, Tubal Ligation Additional Past Surgical History / Comment(s): carpal tunnel RIGHT WRIST, dental, abcess drainage left breast x2 (July 2016, March 2019, Aug 2019); RT breast I&D 05/22/21, 06/05/21; Left ankle surgery. Past Anesthesia/Blood Transfusion Reactions: No Reported Reaction, Family History of Problems w/ Anesthesia Additional Past Anesthesia/Blood Transfusion Reaction / Comment(s): No blood transfusion to date, mom stopped breathing during a surg. & had to be resuscitated Past Psychological History: Anxiety, Bipolar, Depression Smoking Status: Former smoker Past Alcohol Use History: None Reported Past Drug Use History: Marijuana - Past Family History Mother Family Medical History: Cancer Additional Family Medical History / Comment(s): CERVICAL CANCER <Tali Matos - Last Filed: 07/29/24 22:01> General Exam Limitations: no limitations <Tali Matos - Last Filed: 07/29/24 22:01> Limitations: no limitations General appearance: alert, in no apparent distress Head exam: Present: atraumatic, normocephalic Eye exam: Present: normal appearance. Absent: scleral icterus, conjunctival injection ENT exam: Present: normal oropharynx Neck exam: Present: normal inspection, full ROM Respiratory exam: Present: normal lung sounds bilaterally. Absent: respiratory distress, wheezes, rales, rhonchi, stridor, accessory muscle use Cardiovascular Exam: Present: regular rate, normal rhythm, normal heart sounds. Absent: systolic murmur, diastolic murmur, rubs, gallop GI/Abdominal exam: Present: soft. Absent: distended, tenderness, guarding, rebound, rigid, mass Extremities exam: Present: normal inspection, normal capillary refill. Absent: pedal edema, calf tenderness Back exam: Present: normal inspection. Absent: CVA tenderness (R), CVA tenderness (L) Neurological exam: Present: alert Skin exam: Present: warm, dry, intact, normal color. Absent: rash <Anish Sosa - Last Filed: 08/16/24 08:30> - General Exam Comments Initial Comments: Visual Physical Exam Vital signs reviewed General: Well-appearing, nontoxic, no acute distress. Head: Normocephalic, atraumatic Eyes: PERRLA, EOMI ENT: Airway patent Chest: Nonlabored breathing Skin: No visual rash, normal skin tone Neuro: Alert and oriented 3 Musculoskeletal: No gross abnormalities (Tali Matos) Course Vital Signs 07/29/24 07/29/24 07/30/24 21:22 23:43 01:47 Temperature 98.1 F Pulse Rate 98 76 73 Respiratory 20 16 16 Rate Blood Pressure 138/89 144/71 143/80 O2 Sat by Pulse 97 96 98 Oximetry 07/30/24 07/30/24 07/30/24 02:52 04:28 08:15 Temperature 97.7 F Pulse Rate 75 67 67 Respiratory 16 16 16 Rate Blood Pressure 124/69 124/70 125/71 O2 Sat by Pulse 97 96 97 Oximetry 07/30/24 13:30 Temperature 97.9 F Pulse Rate 67 Respiratory 18 Rate Blood Pressure 146/65 O2 Sat by Pulse 96 Oximetry Chest Pain MDM <Tali Matos - Last Filed: 07/29/24 22:01> <Anish Sosa - Last Filed: 08/16/24 08:30> - MDM I completed the quick note portion of this chart signed Tali Matos PA-C (Tali Matos) Patient had chest x-ray that I interpreted as negative for acute infiltrate, pneumothorax, congestive heart failure Was pt. sent in by a medical professional or institution (, ANDREW, SAND MIXER MACHINE, urgent care, hospital, or custodial...) When possible be specific @ -[No] Did you speak to anyone other than the patient for history (EMS, parent, family, police, friend...)? What history was obtained from this source @ -[No] Did you review nursing and triage notes (agree or disagree)? Why? @ -[I reviewed and agree with nursing and triage notes] Were old charts reviewed (outside hosp., previous admission, EMS record, old EKG, old radiological studies, urgent care reports/EKG's, custodial records)? Report findings @ -[No old charts were reviewed] Differential Diagnosis (chest pain, altered mental status, abdominal pain women, abdominal pain men, vaginal bleeding, weakness, fever, dyspnea, syncope, headache, dizziness, GI bleed, back pain, seizure, CVA, palpatations, mental health, musculoskeletal)? @ -[Differential Chest Pain: Stable Angina, Unstable Angina, STEMI, NSTEMI Aortic Dissection, Pneumothorax, Musculoskeletal, Esophageal Spasm GERD, Cholecystitis, Pancreatitis, Zoster, this is not meant to be an all-inclusive list. EKG interpreted by me (3pts min.). @ -[ X-rays interpreted by me (1pt min.). @ -[I interpreted as above CT interpreted by me (1pt min.). @ -[None done] U/S interpreted by me (1pt. min.). @ -[None done] What testing was considered but not performed or refused? (CT, X-rays, U/S, labs)? Why? @ -[None] What meds were considered but not given or refused? Why? @ -[None] Did you discuss the management of the patient with other professionals (professionals i.e. ANDREW Christy, SAND MIXER MACHINE, lab, RT, psych nurse, sr. social media & mobile manager, trouble lineman, teacher, uniform patrol police officer, caseworker intake)? Give summary @ -[Case discussed with admitting physician and treatment recommendations incorporated Was smoking cessation discussed for >3mins.? @ -[No] Was critical care preformed (if so, how long)? @ -[No] Were there social determinants of health that impacted care today? How? (Homelessness, low income, unemployed, alcoholism, drug addiction, transportation, low edu. Level, literacy, decrease access to med. care, nursing home, rehab)? @ -[No] Was there de-escalation of care discussed even if they declined (Discuss DNR or withdrawal of care, Hospice)? DNR status @ -[No] What co-morbidities impacted this encounter? (DM, HTN, Smoking, COPD, CAD, Cancer, CVA, ARF, Chemo, Hep., AIDS, mental health diagnosis, sleep apnea, morbid obesity)? @ -[CAD Was patient admitted / discharged? Hospital course, mention meds given and route, prescriptions, significant lab abnormalities, going to OR and other pertinent info. @ -[Patient is 49-year-old woman with history of CAD who had chest pain and will be admitted to have serial cardiac enzymes, telemetry monitoring, cardiology evaluation Undiagnosed new problem with uncertain prognosis? @ -[No] Drug Therapy requiring intensive monitoring for toxicity (Heparin, Nitro, Insulin, Cardizem)? @ -[No] Were any procedures done? @ -[No] Diagnosis/symptom? @ -[Acute chest pain Acute, or Chronic, or Acute on Chronic? @ -[Acute Uncomplicated (without systemic symptoms) or Complicated (systemic symptoms)? @ -[Uncomplicated Side effects of treatment? @ -[No] Exacerbation, Progression, or Severe Exacerbation? @ -[No] Poses a threat to life or bodily function? How? (Chest pain, [place], [place], pneumonia, PE, COPD, DKA, ARF, appy, cholecystitis, CVA, Diverticulitis, Homicidal, Suicidal, threat to staff... and all critical care pts) @ -[Yes (Anish Sosa) Disposition <Tali Matos - Last Filed: 07/29/24 22:01> <Anish Sosa - Last Filed: 08/16/24 08:30> Clinical Impression: Chest pain Disposition: ADMITTED IP TO THIS [facility] Condition: Good
[2024-07-29 22:10] LABS: ALT 59 U/L (4-34); AST 75 U/L (14-36); African American GFR (CKD) >90 (>60 ml/min/1.73 sqM); Albumin 3.8 g/dL (3.5-5.0); Alkaline Phosphatase 173 U/L (38-126); Anion Gap 5 mmol/L; Blood Urea Nitrogen 11 mg/dL (7-17); Calcium 8.9 mg/dL (8.4-10.2); Carbon Dioxide 24 mmol/L (22-30); Chloride 108 mmol/L (98-107); Glucose 145 mg/dL (74-99); Magnesium 1.8 mg/dL (1.6-2.3); Non-African American GFR(CKD) >90 (>60 ml/min/1.73 sqM); Sodium 137 mmol/L (137-145); Total Bilirubin 1.1 mg/dL (0.2-1.3)
[2024-07-29 22:14] LABS: Potassium 4.2 mmol/L (3.5-5.1)
--- NOTE | 2024-07-29 22:18 | XR ---
EXAMINATION TYPE: XR chest 2V DATE OF EXAM: 07/29/2024 COMPARISON: 07/29/2024 HISTORY: 49-year-old female with chest pain TECHNIQUE: PA and lateral views FINDINGS: The cardiomediastinal silhouette, aorta, and pulmonary vasculature are within normal limits. There is mild interstitial density which may be technical relating to body habitus. No consolidation or pleu ral effusion. IMPRESSION: Interstitial density which may be technical artifact. Correlate to exclude bronchitis or asthma.
[2024-07-29 22:45] LABS: Platelet Count 87 k/uL (150-450)
[2024-07-29] MEDS: ASPIRIN 81 MG PO STA (23:46)
[2024-07-29] MEDS: MORPHINE SULFATE 4 MG/ML SYRINGE IV STA (23:46)
[2024-07-30] MEDS ORDERED: NITROGLYCERIN SL TABS 0.4 MG TAB SUBLINGUAL PRN ×2 (02:01→13:09)
[2024-07-30] MEDS: MORPHINE SULFATE 4 MG/ML SYRINGE IV STA (04:26)
[2024-07-30] MEDS ORDERED: HEPARIN SODIUM,PORCINE (1 ML) 2,500 UNIT in SODIUM CHLORIDE 0.9% 250 ML IRRIGATION PRN (07:00)
[2024-07-30] MEDS ORDERED: HEPARIN SODIUM,PORCINE 10,000 UNIT in SODIUM CHLORIDE 0.9% 1,000 ML IRRIGATION PRN (07:00)
--- NOTE | 2024-07-30 11:48 | P.CRDCN ---
History of Present Illness History of present illness: HISTORY OF PRESENT ILLNESS: This is a 49-year-old female with a past medical history significant for diabetes, anxiety, bipolar disorder, depression, and obesity. Patient does not follow with a director patient financial services. We have been asked to see the patient in consultation for chest pain. Patient examined at the bedside. She reports on Friday she began to have pain in her left arm that radiated into her chest and to her shoulder blade. She states at night she reports alot of chest pressure. She states she was unable to sleep. She states yesterday she felt so fatigued she was having a hard time ambulating around her house. She reports intermittent pain over the past two days. She reports nausea with these episodes. Denies SOB. Vital signs stable. DIAGNOSTICS: - EKG reveals sinus mechanism with ST depression in lead II - Laboratory data: WBC 4.9. Hemoglobin 13.4. Platelet count 87. Sodium 137. Potassium 4.2. BUN 11. Creatinine 0.76. AST 75. ALT 59. Troponin negative x 2. - Current home cardiac medications include none - No previous echo, stress test, or cardiac catheterization available in EMR for review REVIEW OF SYSTEMS: At the time of my exam: CONSTITUTIONAL: Denies fever or chills. HEENT: Denies blurred vision, vision changes, or eye pain. Denies hemoptysis CARDIOVASCULAR: Denies chest pain. Denies orthopnea. Denies PND. Denies palpitations RESPIRATORY: Denies shortness of breath. GASTROINTESTINAL: Denies abdominal pain. Denies nausea or vomiting. HEMATOLOGIC: Denies bleeding disorders. GENITOURINARY: Denies any blood in urine. SKIN: Denies pruitis. Denies rash. PHYSICAL EXAM: VITAL SIGNS: Reviewed. GENERAL: Well-developed in no acute distress. HEENT: Head is normocephalic. Pupils are equal, round. Sclerae anicteric. Mucous membranes of the mouth are moist. Neck supple. No JVD or thyromegaly LUNGS: Respirations even and unlabored. Lungs essentially clear to auscultation bilaterally. HEART: Regular rate and rhythm. S1 and S2 heard. ABDOMEN: Soft. Nondistended. Nontender. EXTREMITIES: Normal range of motion. No clubbing or cyanosis. Peripheral pulses intact. No lower extremity edema NEUROLOGIC: Awake and alert. Oriented x 3. ASSESSMENT: Chest pain, troponin negative x 2 Diabetes, diet controlled per patient History of hypertension, not requiring medications per patient Anxiety Bipolar disorde Depression Obesity: BMI 37.7 Former nicotine dependence PLAN: An acute coronary event has been ruled out Obtain 2D echo to assess cardiac structure and function Patient to undergo stress echo today Further recommendations pending patient course Nurse practitioner note has been reviewed by physician. Signing provider agrees with the documented findings, assessment, and plan of care documented by CHAIRMAN & CEO as a scribe. Past Medical History Past Medical History: Diabetes Mellitus, Hypertension, Osteoarthritis (OA), Skin Disorder Additional Past Medical History / Comment(s): KIDNEY STONES, diet controlled diabetic-no longer needs med, no longer needs BP med, seasonal allergies, abscess right breast, left breast hx. of abscess, yeast in skin fold in abd. History of Any Multi-Drug Resistant Organisms: None Reported Past Surgical History: Appendectomy, Breast Surgery, Cholecystectomy, Orthopedic Surgery, Tubal Ligation Additional Past Surgical History / Comment(s): carpal tunnel RIGHT WRIST, dental, abcess drainage left breast x2 (July 2016, March 2019, Aug 2019); RT breast I&D 05/22/21, 06/05/21; Left ankle surgery. Past Anesthesia/Blood Transfusion Reactions: No Reported Reaction, Family History of Problems w/ Anesthesia Additional Past Anesthesia/Blood Transfusion Reaction / Comment(s): No blood transfusion to date, mom stopped breathing during a surg. & had to be resuscitated Past Psychological History: Anxiety, Bipolar, Depression Smoking Status: Former smoker Past Alcohol Use History: None Reported Past Drug Use History: Marijuana - Past Family History Mother Family Medical History: Cancer Additional Family Medical History / Comment(s): CERVICAL CANCER Medications and Allergies Home Medications Medication Instructions Recorded Confirmed Type No Known Home Medications 07/30/24 07/30/24 History Allergies Allergy/AdvReac Type Severity Reaction Status Date / Time capsaicin Allergy Rash/Hives/ Verified 07/30/24 07:32 Swelling Physical Exam Vitals: Vital Signs Temp Pulse Resp BP Pulse Ox 07/30/24 08:15 97.7 F 67 16 125/71 97 07/30/24 04:28 67 16 124/70 96 07/30/24 02:52 75 16 124/69 97 07/30/24 01:47 73 16 143/80 98 07/29/24 23:43 76 16 144/71 96 07/29/24 21:22 98.1 F 98 20 138/89 97 Intake and Output 07/29/24 07/30/24 07/30/24 22:59 06:59 14:59 Other: Weight 96.615 kg Results 07/29/24 21:40 07/29/24 21:40 Cardiac Enzymes 07/29/24 07/29/24 07/30/24 Range/Units 21:40 21:40 05:35 AST 75 H (14-36) U/L Troponin I <0.012 <0.012 (0.000-0.034) ng/mL Coagulation 07/29/24 Range/Units 21:40 PT 12.1 (10.0-12.5) sec APTT 27.1 (22.0-30.0) sec CBC 07/29/24 Range/Units 21:40 WBC 4.9 (3.8-10.6) k/uL RBC 4.56 (3.80-5.40) m/uL Hgb 13.4 (11.4-16.0) gm/dL Hct 40.7 (34.0-46.0) % Plt Count 87 L (150-450) k/uL Comprehensive Metabolic Panel 07/29/24 Range/Units 21:40 Sodium 137 (137-145) mmol/L Potassium 4.2 (3.5-5.1) mmol/L Chloride 108 H (98-107) mmol/L Carbon Dioxide 24 (22-30) mmol/L BUN 11 (7-17) mg/dL Creatinine 0.76 (0.52-1.04) mg/dL Glucose 145 H (74-99) mg/dL Calcium 8.9 (8.4-10.2) mg/dL AST 75 H (14-36) U/L ALT 59 H (4-34) U/L Alkaline Phosphatase 173 H (38-126) U/L Total Protein 7.0 (6.3-8.2) g/dL Albumin 3.8 (3.5-5.0) g/dL Current Medications Generic Name Dose Route Start Last Admin Trade Name Freq PRN Reason Stop Dose Admin Nitroglycerin 0.4 mg 07/30/24 02:01 Nitroglycerin Sl Tabs 0.4 Mg Tab SUBLINGUAL Q5M PRN Chest Pain Intake and Output 07/29/24 07/30/2407/30/24 22:59 06:59 14:59 Other: Weight 96.615 kg 07/29/24 21:40 07/29/24 21:40
[2024-07-30] MEDS ORDERED: ALPRAZolam 0.25 MG TAB PO PRN (13:09)
[2024-07-30] MEDS ORDERED: ALPRAZolam 0.5 MG TAB PO PRN (13:09)
[2024-07-30] MEDS: ATORVASTATIN 80 MG TAB PO STA (13:23)
[2024-07-30] MEDS: ASPIRIN 325 MG TAB PO STA (13:23)
[2024-07-30] MEDS: SODIUM CHLORIDE 0.9% 1,000 ML IV SCH (13:26)
--- NOTE | 2024-07-30 13:45 | CA ---
Stress Echo Report Yovana Ramos Age: 49 Gender: F : 1975 Exam Date: 07/30/2024 12:41 Exam Location: [place] Stress Ht (in): 63 Wt (lb): 213 Ordering Physician: Lisa Lewis Referring Physician: [id number] Home Builder: Andrea Patel Technologist Procedure CPT: Indication: CP ICD-9 Codes: Rhythm: Patient History: Cardiac Medications: see chart Medications in past 24 hours: Contrast: N/A Stress Results Protocol: Parth Total dose(mL): NA Exercise Duration (min:sec): 2:[address] Depression (mm): Angina Score: Cruz Score: METS: 3.2 Resting HR: 86 Resting BP: 151 / 87 Peak HR: 121 Peak BP: 164 / 68 Max Predicted HR: 172 70 % Max Predicted HR Target HR: 146 Double Product: Stress Summary: BP Response: Reason for Termination: Atypical chest discomfort "5" Cardiac Symptoms: CHEST PAIN ECG Analysis Resting ECG: Stress ECG: Arrhythmia: Echo Analysis Resting Echo: Peak Echo Analysis: MEASUREMENTS (Male/Female) Normal Values CONCLUSIONS Patient underwent exercise stress echo with a Parth protocol treadmill stress test. Patient exercised into Stage 1 for a total of 2 minutes and 2 seconds reaching a total of 3.2 METS. Patient's maximum heart rate was 121 which represented 70% age- predicted maximum heart rate. Stress EKG portion: At baseline patient's EKG showed normal sinus rhythm, normal axis, no significant ST or T wave abnormalities. At peak exercise, EKG showed abnormal inducible 1.[address] depressions in the inferior lateral leads. Stress echo portion: 2-D echocardiogram was performed in the parasternal long, personal short, apical 2 and apical four-chamber views at rest, peak exercise and in recovery. At baseline, echocardiogram showed left ventricular ejection fraction 55% without wall motion abnormalities. With peak exercise, echocardiogram shows improvement in left ventricular ejection fraction, increase contractility, decrease in left ventricular end systolic dimension without wall motion abnormalities consistent with a normal response to exercise. Conclusions: 1. Inadequate stress test given his inability reach 85% maximum predicted heart rate 2. Abnormal stress EKG portion with inducible ST depressions consistent with ischemia 3. Normal stress echo portion however unable to reach 85% maximum predicted heart rate 4. Chest pain and dyspnea noted with exertion concerning for angina. Clinical correlation recommended 5. Poor exercise tolerance Dr. Jared Ogden DO (Electronically Signed) Final Date: 30 July 2024 13:44
[2024-07-30] MEDS: IV FLUID CONTINUATION 1,000 ML IV ONE (13:50)
[2024-07-30] MEDS ORDERED: fentaNYL (PF) 50 MCG/ML 2 ML AMP ONE (13:59)
[2024-07-30] MEDS ORDERED: LIDOCAINE 1% INJ 10MG/ML (20 ML MDV) ONE (13:59)
[2024-07-30] MEDS ORDERED: HEPARIN SODIUM 1,000 UN/ML (10ML VL) ONE (13:59)
[2024-07-30] MEDS ORDERED: VERAPAMIL 2.5 MG/ML 2 ML AMP ONE (13:59)
[2024-07-30] MEDS: LIDOCAINE 1% INJ 10MG/ML (20 ML MDV) SQ ONE (14:05)
[2024-07-30] MEDS: fentaNYL (PF) 50 MCG/1 ML VIAL IVP ONE (14:06)
[2024-07-30] MEDS: MIDAZOLAM 2 MG/2 ML VIAL IVP ONE (14:06)
[2024-07-30] MEDS: VERAPAMIL SYRINGE (5 MG/10 ML) INTRAARTER ONE (14:07)
[2024-07-30] MEDS: HEPARIN SODIUM 1,000 UN/ML (10ML VL) IV ONE (14:13)
[2024-07-30] MEDS ORDERED: TICAGRELOR 90 MG TAB ONE (14:31)
[2024-07-30] MEDS: TICAGRELOR 90 MG TAB PO ONE (14:34)
[2024-07-30] MEDS: NITROGLYCERIN 1000MCG/10ML SYRINGE INTRACORON ONE (14:47)
[2024-07-30] MEDS: IOPAMIDOL-370 200ML BTL INJ ONE (16:09)
[2024-07-30] MEDS ORDERED: RX INFO: IV CONTRAST WAS GIVEN 1 EACH MISC MISCELLANE PRN (16:52)
[2024-07-30] MEDS ORDERED: ATROPINE SULFATE 0.1 MG/ML 10ML SYRINGE IV PRN (16:52)
--- NOTE | 2024-07-30 16:52 | P.PRCINT ---
Percutaneous Coronary Int. - Percutaneous Coronary Intervention Percutaneous Coronary Intervention: PROCEDURES PERFORMED: Left heart catheterization, bilateral coronary angiography, ultrasound guided arterial access, iFR of ramus, PCI ramus with a 2.5 x 23mm Xience SPRING, post dilated with a 2.5mm NC balloon, IVUS circumflex/ ramus, PTCA circumflex with a 2.75mm balloon INDICATION: Abnormal stress test, unstable angina CONSENT:I have discussed the risks, benefits and alternative therapies for the above-mentioned procedure and for both sedation/analgesia as well as necessary blood product administration, if indicated, as they pertain to this patient. The patient has indicated understanding and acceptance of the risks and procedures discussed. PROCEDURE: After the risks, benefits and alternatives of the above mentioned procedure explained in detail with the patient, informed consent was obtained. Patient was taken to the catheterization lab and prepped and draped in usual fashion. Ultrasound guidance was used to assess for arterial access. 1% lidocaine was used to anesthetize the right ulnar artery which appeared larger on ultrasound. A 6-[place] sheath was placed in the right ulnar artery using modified Seldinger technique and ultrasound guidance. Left coronary angiography was performed with a 5-[place] JL 3.5 catheter and right coronary angiography was performed with a 5-[place] FR5 catheter in various views. A 5-[place] FR5 catheter was inserted into the left ventricle and pressure measurements were obtained. the decision was made to perform functional assessment of the ramus. Heparin was given. A 6-[place] CLS 3.0 guide was used to engage the left main. A 0.014 pressure wire was advanced in the left main and normalize. It was then advanced into the mid to distal ramus, 1 cm past the ramus lesion. This was noted to be grossly abnormal 0.44. There was an additional eccentric calcified proximal circumflex 99% lesion with a 120 degrees takeoff with GREGG 2 flow with collaterals from the right. Therefore PCI of the ramus and circumflex was recommended. A 0.014 whisper wire was advanced in the distal circumflex. With wiring the lesion, there was no flow with a wire making the artery flow limiting. There is extreme difficulty advancing any balloons and eventually able to deploy a 1.5 mm x 6 balloon with jehovah's witness of blood flow. Unable to advanced an IVUS catheter past the tortuous proximal circumflex. patient additionally had extreme pain, anxiety with inability to urinate on a bedpan with blood pressure significantly increasing of the 220s secondary pain with inability urinate. Therefore the catheter was placed. predilation was performed of the ramus with a 2.5 balloon. Next a 2.5 x 23 mm Xience stent was placed in the proximal to mid ramus. Intravascular ultrasound showed some underexpansion therefore a 2.5 mm noncompliant balloon was used to post dilate. Repeat angiogram showed well-expanded stent with no significant stenosis.. Impression there was 90% ramus stenosis and GREGG-3 flow postintervention there was less than 10% stenosis with GREGG 3 flow. next, continued efforts were made advancing equipment to the circumflex lesion. Eventually able to up titrate to a 2.75 x 6 mm balloon however unable to advance any noncompliant balloons or even a 2.25 x 8 mm stent. This was even with the help of a guideliner. This mainly appeared related to the extreme angulation of the takeoff of the circumflex. Additionally given this was at the level of the ramus bifurcation and likely needing to chcf off the ramus, further attempts at stents were aborted. Final angiograms were performed. Preintervention there is a 99% stenosis with GREGG 2 flow and postintervention there was 20-30% stenosis with GREGG 3 flow. Patient was chest pain-free. The right ulnar sheath was removed and a TR band was placed with hemostasis achieved. The patient tolerated the procedure well. Patient was transported back to the post catheterization holding area in stable condition. Conscious Sedation: Patient was monitored under the direct supervision of myself for conscious sedation using Versed and fentanyl for a total duration of 124 minutes HEMODYNAMICS: Ao: 137/76 LV: 142/4, LVEDP 12 SELECTIVE CORONARY ARTERIOGRAPHY: LEFT MAIN: The left main is a large caliber vessel which trifurcates into the LAD, ramus and circumflex. There is 20-30% distal left main stenosis. LEFT ANTERIOR DESCENDING CORONARY ARTERY: LAD is a large caliber vessel which wraps around to the apex. There is diffuse 20-30% LAD stenosis. RAMUS INTERMEDIUS: There is proximal tandem 90% and 80% stenoses and otherwise normal. LEFT CIRCUMFLEX CORONARY ARTERY: Left circumflex is a moderate caliber vessel with an ostial eccentric 99% stenosis and collaterals fill from the RCA. RIGHT CORONARY ARTERY: The right coronary artery is a small caliber vessel which gives off a small PDA and is a co dominant vessel. There is diffuse 30-40% stenosis. FINAL IMPRESSION: 1. CAD as described above including 20-30% distal left main stenosis, LAD 20- 30% stenosis, ramus 90% stenosis, ostial circumflex 99% stenosis. 2. Status post PCI ramus with a 2.5 x 23mm Xience SPRING, post dilated with a 2.5mm NC balloon 3. Status post PTCA circumflex with a 2.75mm balloon with inability to get a stent past the heavily calcified ostial circumflex angulation 4. Normal left sided filling pressures PLAN: 1. Aggressive risk factor modification per most recent ACC/AHA guidelines. 2. Continue dual platelets with aspirin and Brillinta for 12 months 3. If patient has more angina-type symptoms likely bring patient back for repeated angiography, attempted PCI from a femoral approach with 8-[place] sheath 4. Tobacco cessation discussed in detail with patient and patient is agreeable to stopping. Information for [place] quit line given to patient.
[2024-07-30] MEDS: ONDANSETRON 4 MG/2 ML VIAL IVP PRN (17:32)
--- NOTE | 2024-07-30 17:48 | CA ---
Transthoracic Echo Report Name: Yovana Ramos Age: 49 Gender: F : 1975 Exam Date: 07/30/2024 12:34 Exam Location: [facility] Ht (in): 63 Wt (lb): 213 Ordering Physician: Lisa Lewis Attending/Referring Phys: [id number], Joshua Chief Information Officer Carley Sotelo RDCS Procedure CPT: Indications: Chest Pain Cardiac Hx: Technical Quality: Fair Contrast 1: Total Dose (mL): Contrast 2: Total Dose (mL): MEASUREMENTS (Male / Female) Normal Values 2D ECHO LV Diastolic Diameter PLAX 3.9 cm 4.2 - 5.9 / 3.9 - 5.3 cm LV Systolic Diameter PLAX 2.1 cm IVS Diastolic Thickness 1.2 cm 0.6 - 1.0 / 0.6 - 0.9 cm LVPW Diastolic Thickness 1.2 cm 0.6 - 1.0 / 0.6 - 0.9 cm LV Relative Wall Thickness 0.6 RV Internal Dim ED PLAX 2.8 cm LA Volume 52.2 cm??? 18 - 58 / 22 - 52 cm??? LA Volume Index 24.6 cm???/m??? 16 - 28 cm???/m??? M-MODE Aortic Root Diameter MM 2.3 cm LA Systolic Diameter MM 3.6 cm LA Ao Ratio MM 1.6 AV Cusp Separation MM 1.4 cm DOPPLER AV Peak Velocity 196.7 cm/s AV Peak Gradient 15.5 mmHg AV Mean Velocity 137.3 cm/s AV Mean Gradient 8.2 mmHg AV Velocity Time Integral 41.8 cm LVOT Peak Velocity 114.9 cm/s LVOT Peak Gradient 5.3 mmHg LVOT Velocity Time Integral 26.8 cm MV Area PHT 4.3 cm??? Mitral E Point Velocity 93.7 cm/s Mitral A Point Velocity 76.2 cm/s Mitral E to A Ratio 1.2 MV Deceleration Time 176.1 ms MV E' Velocity 7.6 cm/s Mitral E to MV E' Ratio 12.3 TR Peak Velocity 184.2 cm/s TR Peak Gradient 13.6 mmHg Right Ventricular Systolic Press 18.0 mmHg FINDINGS Left Ventricle Mildly increased left ventricular wall thickness. Left ventricular cavity size normal. Normal left ventricular systolic function with no obvious regional wall motion abnormalities. Grade 1 diastolic dysfunction. Left ventricular ejection fraction is estimated at 55-60 %. Right Ventricle Right ventricular dilatation. Right ventricular systolic pressure within normal limits. Right Atrium Normal right atrial size. Left Atrium Normal left atrial size. Mitral Valve Structurally normal mitral valve. Mitral valve thickened. Mild mitral annular calcification. Mild mitral regurgitation. Aortic Valve Trileaflet aortic valve. No aortic stenosis. Aortic valve sclerosis. Tricuspid Valve Structurally normal tricuspid valve. Mild tricuspid regurgitation. Pulmonic Valve Trace pulmonic regurgitation. Pericardium No pericardial effusion. Aorta Normal size aortic root and proximal ascending aorta. CONCLUSIONS Left ventricular ejection fraction 55-60% Mildly increased left ventricular wall thickness Mild mitral regurgitation Mild tricuspid regurgitation Previewed by: Dr. Jared Ogden DO (Electronically Signed) Final Date: 30 July 2024 17:47
[2024-07-30 18:07] LABS: Basophils % (A) 1 %; Eosinophils # (A) 0.3 k/uL (0-0.7); Eosinophils % (A) 5 %; HCT 40.7 % (34.0-46.0); HGB 13.7 gm/dL (11.4-16.0); Lymphocytes # (A) 1.6 k/uL (1.0-4.8); Lymphocytes % (A) 23 %; MCH 30.2 pg (25.0-35.0); MCHC 33.6 g/dL (31.0-37.0); Mean Platelet Volume 9.3; Monocytes # (A) 0.4 k/uL (0-1.0); Monocytes % (A) 6 %; Neutrophils # (A) 4.4 k/uL (1.3-7.7); Neutrophils % (A) 63 %; Platelet Count 112 k/uL (150-450); RBC 4.52 m/uL (3.80-5.40); RDW 13.9 % (11.5-15.5)
[2024-07-30 18:36] LABS: Anion Gap 4 mmol/L; Blood Urea Nitrogen 9 mg/dL (7-17); Calcium 8.7 mg/dL (8.4-10.2); Carbon Dioxide 26 mmol/L (22-30); Chloride 107 mmol/L (98-107); Glucose 123 mg/dL (74-99); Potassium 4.7 mmol/L (3.5-5.1); Sodium 137 mmol/L (137-145)
[2024-07-30 18:37] LABS: African American GFR (CKD) >90 (>60 ml/min/1.73 sqM); Non-African American GFR(CKD) >90 (>60 ml/min/1.73 sqM)
[2024-07-30] MEDS: SODIUM CHLORIDE 0.9% 1,000 ML in EMPTY BAG 1 BAG IV SCH ×2 (18:43→21:11)
--- NOTE | 2024-07-30 18:52 | CT ---
EXAMINATION TYPE: CT forearm RT wo con CT DLP: 216.9 mGycm, Automated exposure control for dose reduction was used. DATE OF EXAM: 07/30/2024 6:21 PM COMPARISON: None CLINICAL INDICATION: Female, 49 years old with history of swelling right arm post cath; PHH, swelling right arm post cath TECHNIQUE: Axial images were obtained of the CT forearm RT wo con, Additional coronal and sagittal re formatted images and soft tissue and bone window were obtained for review. 3-D reconstruction was cre ated on a separate workstation. Contrast used: mL of , (None if empty) Oral contrast used: (None if empty) FINDINGS: There is no evidence of fracture, subluxation, or dislocation. No significant soft tissue swelling or joint effusion is identified. No focal muscular atrophy or edema is identified. No radiop aque foreign body identified. IMPRESSION: No evidence of fracture. No significant soft tissue swelling. No radiopaque foreign body.
[2024-07-30] MEDS: MORPHINE SULFATE 4 MG/ML SYRINGE IVP STA (19:04)
[2024-07-30 20:46] LABS: Glucose,Whole Blood 202 mg/dL (70-110)
[2024-07-30] MEDS: TICAGRELOR 90 MG TAB PO SCH (21:09)
[2024-07-30] MEDS: METOPROLOL TARTRATE 25 MG TAB PO SCH (21:09)
[2024-07-30] MEDS: ATORVASTATIN 80 MG TAB PO SCH (21:09)
[2024-07-30] MEDS: ACETAMINOPHEN TAB 325 MG TAB PO PRN (22:04)
[2024-07-31 07:02] LABS: African American GFR (CKD) >90 (>60 ml/min/1.73 sqM); Non-African American GFR(CKD) >90 (>60 ml/min/1.73 sqM)
[2024-07-31] MEDS: ASPIRIN 81 MG PO SCH (08:22)
[2024-07-31 10:01] LABS: Chol/HDL Ratio 4.09 Ratio; LDL Cholesterol,Calculated 79.2 mg/dL (0.0-131.0)
[2024-07-31] MEDS: MAG HYDROX/AL HYDROX/SIMETH 30 ML CUP PO PRN (13:58)
--- NOTE | 2024-07-31 14:55 | P.PN ---
Subjective Progress Note Date: 07/31/24 HISTORY OF PRESENT ILLNESS: This is a 49-year-old female with a past medical history significant for di abetes, anxiety, bipolar disorder, depression, and obesity. 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 We have been asked to see the patient in consultation for chest pain. Patient examined at the bedside. She reports on Friday she began to have pain in her left arm that radiated into her chest and to her shoulder blade. She states at night she reports alot of chest pressure. She states she was unable to sleep. She states yesterday she felt so fatigued she was having a hard time ambulating around her house. She reports intermittent pain over the past two days. She reports nausea with these episodes. Denies SOB. Vital signs stable. DIAGNOSTICS: - EKG reveals sinus mechanism with ST depression in lead II - Laboratory data: WBC 4.9. Hemoglobin 13.4. Platelet count 87. Sodium 137. Potassium 4.2. BUN 11. Creatinine 0.76. AST 75. ALT 59. Troponin negative x 2. - Current home cardiac medications include none - No previous echo, stress test, or cardiac catheterization available in EMR for review 07/31/24 She underwent left heart catheterization 07/30/2024 which revealed CAD including 20-30% distal left main stenosis, LAD 20-30% stenosis, ramus 90% stenosis, ostial circumflex 99% stenosis, status post PCI of the ramus, status post PTCA circumflex with inability to get stent past the heavily calcified angulation. She was started on aspirin and Brilinta. Echocardiogram shows EF 55-60%, mild mitral regurgitation, mild tricuspid regurgitation. She reports that she has been up walking the halls multiple times. She does have occasional chest pressure that resolves when she sits down. She does feel better overall and thinks her shortness of breath has improved after stenting. She did have right arm swelling after procedure, this has improved today. PHYSICAL EXAM: VITAL SIGNS: Reviewed. GENERAL: Well-developed in no acute distress. HEENT: Head is normocephalic. Pupils are equal, round. Sclerae anicteric. Mucous membranes of the mouth are moist. Neck supple. No JVD or thyromegaly LUNGS: Respirations even and unlabored. Lungs essentially clear to auscultation bilaterally. HEART: Regular rate and rhythm. S1 and S2 heard. ABDOMEN: Soft. Nondistended. Nontender. EXTREMITIES: Normal range of motion. No clubbing or cyanosis. Peripheral pulses intact. No lower extremity edema. Right radial site with swelling, radial and ulnar pulses intact, mild bruises and tenderness. NEUROLOGIC: Awake and alert. Oriented x 3. ASSESSMENT: CAD status post PCI ramus, PTCA circumflex Chest pain, troponin negative x 2 Diabetes, diet controlled per patient History of hypertension, not requiring medications per patient Anxiety Bipolar disorder Depression Obesity: BMI 37.7 Former nicotine dependence PLAN: Continue with dual antiplatelet therapy for 12 months. LDL goal less than 70. Smoking cessation was strongly advised. She is still having some chest pain when she is walking. We will monitor patient overnight. If still having symptoms may consider further evaluation. We will follow. Nurse practitioner note has been reviewed by physician. Signing provider agrees with the documented findings, assessment, and plan of care documented by SALES CENTER ASSOCIATE as a scribe. Objective - Vital Signs Vital signs: Vital Signs Temp 98.2 F 07/31/24 14:42 Pulse 63 07/31/24 14:42 Resp 17 07/31/24 14:42 BP 95/52 07/31/24 14:42 Pulse Ox 97 07/31/24 14:42 FiO2 Intake & Output 07/30/24 07/31/24 07/31/24 18:59 06:59 18:59 Intake Total 900 354 Output Total 200 Balance 700 354 Weight 96.615 kg Intake: IV 900 Oral 354 Output: Urine 200 Uretheral (Oliver) 200 Other: Voiding Method Toilet # Voids 2 1 - Labs CBC & Chem 7: 07/30/24 17:35 07/31/24 04:20 Labs: Abnormal Lab Results - Last 24 Hours (Table) 07/30/24 07/30/24 07/30/24 Range/Units 17:35 17:35 20:45 Plt Count 112 L (150-450) k/uL Glucose 123 H (74-99) mg/dL POC Glucose (mg/dL) 202 H (70-110) mg/dL HDL Cholesterol (40.00-60.00) mg/dL 07/31/24 Range/Units 04:20 Plt Count (150-450) k/uL Glucose (74-99) mg/dL POC Glucose (mg/dL) (70-110) mg/dL HDL Cholesterol 32.80 L (40.00-60.00) mg/dL
--- NOTE | 2024-07-31 14:57 | P.HPIM ---
History of Present Illness H&P Date: 07/30/24 Chief Complaint: Chest pain 49-year-old female presents emergency department chief complaint of left-sided chest pain with radiation into her left back and arm that has been intermittent since yesterday. Patient denies shortness of breath, difficulty breathing. States that she has been feeling nauseous as well. States that this pain is described as a heaviness sensation. History of high blood pressure. She reports on Friday she began to have pain in her left arm that radiated into her chest and to her shoulder blade. She states at night she reports alot of chest pressure. She states she was unable to sleep. She states yesterday she felt so fatigued she was having a hard time ambulating around her house. She reports intermittent pain over the past two days. She reports nausea with these episodes. Denies SOB. Vital signs stable. - EKG reveals sinus mechanism with ST depression in lead II - Laboratory data: WBC 4.9. Hemoglobin 13.4. Platelet count 87. Sodium 137. Potassium 4.2. BUN 11. Creatinine 0.76. AST 75. ALT 59. Troponin negative x 2. - Current home cardiac medications include none - No previous echo, stress test, or cardiac catheterization available in EMR for review Review of Systems REVIEW OF SYSTEMS: CONSTITUTIONAL: No fever, no malaise, no fatigue. HEENT: No recent visual problems or hearing problems. Denied any sore throat. CARDIOVASCULAR: No chest pain, orthopnea, PND, no palpitations, no syncope. PULMONARY: No shortness of breath, no cough, no hemoptysis. GASTROINTESTINAL: No diarrhea, no nausea, no vomiting, no abdominal pain. NEUROLOGICAL: No headaches, no weakness, no numbness. HEMATOLOGICAL: Denies any bleeding or petechiae. GENITOURINARY: Denies any burning micturition, frequency, or urgency. MUSCULOSKELETAL/RHEUMATOLOGICAL: Denies any joint pain, swelling, or any muscle pain. ENDOCRINE: Denies any polyuria or polydipsia. The rest of the 14-point review of systems is negative. Past Medical History Past Medical History: Diabetes Mellitus, Hypertension, Osteoarthritis (OA), Skin Disorder Additional Past Medical History / Comment(s): KIDNEY STONES, diet controlled diabetic-no longer needs med, no longer needs BP med, seasonal allergies, abscess right breast, left breast hx. of abscess, yeast in skin fold in abd. History of Any Multi-Drug Resistant Organisms: None Reported Past Surgical History: Appendectomy, Breast Surgery, Cholecystectomy, Orthopedic Surgery, Tubal Ligation Additional Past Surgical History / Comment(s): carpal tunnel RIGHT WRIST, dental, abcess drainage left breast x2 (July 2016, March 2019, Aug 2019); RT breast I&D 05/22/21, 06/05/21; Left ankle surgery. Past Anesthesia/Blood Transfusion Reactions: No Reported Reaction, Family History of Problems w/ Anesthesia Additional Past Anesthesia/Blood Transfusion Reaction / Comment(s): No blood transfusion to date, mom stopped breathing during a surg. & had to be resuscitated Past Psychological History: Anxiety, Bipolar, Depression Smoking Status: Former smoker Past Alcohol Use History: None Reported Past Drug Use History: Marijuana - Past Family History Mother Family Medical History: Cancer Additional Family Medical History / Comment(s): CERVICAL CANCER Medications and Allergies Home Medications Medication Instructions Recorded Confirmed Type No Known Home Medications 07/30/24 07/30/24 History Allergies Allergy/AdvReac Type Severity Reaction Status Date / Time capsaicin Allergy Rash/Hives/ Verified 07/30/24 07:32 Swelling Physical Exam Vitals: Vital Signs Temp Pulse Resp BP Pulse Ox 07/30/24 13:30 97.9 F 67 18 146/65 96 07/30/24 08:15 97.7 F 67 16 125/71 97 07/30/24 04:28 67 16 124/70 96 07/30/24 02:52 75 16 124/69 97 07/30/24 01:47 73 16 143/80 98 07/29/24 23:43 76 16 144/71 96 07/29/24 21:22 98.1 F 98 20 138/89 97 Intake and Output 07/29/24 07/30/24 07/30/24 22:59 06:59 14:59 Other: Weight 96.615 kg VITAL SIGNS: Reviewed. GENERAL: Well-developed in no acute distress. HEENT: Head is normocephalic. Pupils are equal, round. Sclerae anicteric. Mucous membranes of the mouth are moist. Neck supple. No JVD or thyromegaly LUNGS: Respirations even and unlabored. Lungs essentially clear to auscultation bilaterally. HEART: Regular rate and rhythm. S1 and S2 heard. ABDOMEN: Soft. Nondistended. Nontender. EXTREMITIES: Normal range of motion. No clubbing or cyanosis. Peripheral pulses intact. No lower extremity edema NEUROLOGIC: Awake and alert. Oriented x 3. Results CBC & Chem 7: 07/30/24 17:35 07/31/24 04:20 Labs: Abnormal Lab Results - Last 24 Hours (Table) 07/29/24 07/29/24 Range/Units 21:40 21:40 Plt Count 87 L (150-450) k/uL Chloride 108 H (98-107) mmol/L Glucose 145 H (74-99) mg/dL AST 75 H (14-36) U/L ALT 59 H (4-34) U/L Alkaline Phosphatase 173 H (38-126) U/L Assessment and Plan Assessment: 1. Chest pain rule out acute coronary syndrome Patient is admitted to telemetry with plans to monitor EKG and trend troponin; troponin has been negative x 2 -2D echo is ordered and pending -Patient has been evaluated by cardiology and is being taken for heart catheterization 2. Transaminitis; etiology unclear; we will repeat liver enzymes with plans to initiate further workup if remains elevated 3. History of diabetes mellitus type 2; diet controlled -Monitor Accu-Cheks before every meal and at bedtime with insulin sliding scale 4. Hypertension; not taking any antihypertensive medications at home; patient has been placed on metoprolol 25 mg twice daily 5. Lipidemia; cardiology recommending to initiate Lipitor 80 mg p.o. nightly 6. Obesity; counseling done on need for weight reduction DVT prophylaxis; SCDs/systemic anticoagulation CODE STATUS; full code
--- NOTE | 2024-07-31 15:00 | P.PN ---
Subjective Progress Note Date: 07/31/24 49-year-old female presents emergency department chief complaint of left-sided chest pain with radiation into her left back and arm that has been intermittent since yesterday. Patient denies shortness of breath, difficulty breathing. States that she has been feeling nauseous as well. States that this pain is described as a heaviness sensation. History of high blood pressure. She reports on Friday she began to have pain in her left arm that radiated into her chest and to her shoulder blade. She states at night she reports alot of chest pressure. She states she was unable to sleep. She states yesterday she felt so fatigued she was having a hard time ambulating around her house. She reports intermittent pain over the past two days. She reports nausea with these episodes. Denies SOB. Vital signs stable. - EKG reveals sinus mechanism with ST depression in lead II - Laboratory data: WBC 4.9. Hemoglobin 13.4. Platelet count 87. Sodium 137. Potassium 4.2. BUN 11. Creatinine 0.76. AST 75. ALT 59. Troponin negative x 2. - Current home cardiac medications include none - No previous echo, stress test, or cardiac catheterization available in EMR for review Objective - Vital Signs Vital signs: Vital Signs Temp 98.0 F 07/31/24 07:00 Pulse 64 07/31/24 07:00 Resp 16 07/31/24 07:00 BP 106/59 07/31/24 07:00 Pulse Ox 100 07/31/24 07:00 FiO2 Intake & Output 07/30/24 07/31/24 07/31/24 18:59 06:59 18:59 Intake Total 900 118 Output Total 200 Balance 700 118 Weight 96.615 kg Intake: IV 900 Oral 118 Output: Urine 200 Uretheral (Oliver) 200 Other: Voiding Method Toilet # Voids 2 - Exam VITAL SIGNS: Reviewed. GENERAL: Well-developed in no acute distress. HEENT: Head is normocephalic. Pupils are equal, round. Sclerae anicteric. Mucous membranes of the mouth are moist. Neck supple. No JVD or thyromegaly LUNGS: Respirations even and unlabored. Lungs essentially clear to auscultation bilaterally. HEART: Regular rate and rhythm. S1 and S2 heard. ABDOMEN: Soft. Nondistended. Nontender. EXTREMITIES: Normal range of motion. No clubbing or cyanosis. Peripheral pulses intact. No lower extremity edema NEUROLOGIC: Awake and alert. Oriented x 3. - Labs CBC & Chem 7: 07/30/24 17:35 07/31/24 04:20 Labs: Abnormal Lab Results - Last 24 Hours (Table) 07/30/24 07/30/24 07/30/24 Range/Units 17:35 17:35 20:45 Plt Count 112 L (150-450) k/uL Glucose 123 H (74-99) mg/dL POC Glucose (mg/dL) 202 H (70-110) mg/dL HDL Cholesterol (40.00-60.00) mg/dL 07/31/24 Range/Units 04:20 Plt Count (150-450) k/uL Glucose (74-99) mg/dL POC Glucose (mg/dL) (70-110) mg/dL HDL Cholesterol 32.80 L (40.00-60.00) mg/dL Assessment and Plan Assessment: 1. Chest pain rule out acute coronary syndrome Patient is admitted to telemetry with plans to monitor EKG and trend troponin; troponin has been negative x 2 -2D echo is ordered and pending -Patient has been evaluated by cardiology and is being taken for heart catheterization 2. Transaminitis; etiology unclear; we will repeat liver enzymes with plans to initiate further workup if remains elevated 3. History of diabetes mellitus type 2; diet controlled -Monitor Accu-Cheks before every meal and at bedtime with insulin sliding scale 4. Hypertension; not taking any antihypertensive medications at home; patient has been placed on metoprolol 25 mg twice daily 5. Lipidemia; cardiology recommending to initiate Lipitor 80 mg p.o. nightly 6. Obesity; counseling done on need for weight reduction DVT prophylaxis; SCDs/systemic anticoagulation CODE STATUS; full code
[2024-07-31 20:58] VITALS: RESP 16
[2024-08-01] MEDS: ZOLPIDEM 5 MG TAB PO PRN (03:05)
[2024-08-01 08:08] VITALS: BP 100/67; PULSE 63; TEMP 98
--- NOTE | 2024-08-01 11:10 | P.PN ---
Subjective Progress Note Date: 08/01/24 HISTORY OF PRESENT ILLNESS: This is a 49-year-old female with a past medical history significant for di abetes, anxiety, bipolar disorder, depression, and obesity. Patient does not follow with a cad operator. We have been asked to see the patient in consultation for chest pain. Patient examined at the bedside. She reports on Friday she began to have pain in her left arm that radiated into her chest and to her shoulder blade. She states at night she reports alot of chest pressure. She states she was unable to sleep. She states yesterday she felt so fatigued she was having a hard time ambulating around her house. She reports intermittent pain over the past two days. She reports nausea with these episodes. Denies SOB. Vital signs stable. DIAGNOSTICS: - EKG reveals sinus mechanism with ST depression in lead II - Laboratory data: WBC 4.9. Hemoglobin 13.4. Platelet count 87. Sodium 137. Potassium 4.2. BUN 11. Creatinine 0.76. AST 75. ALT 59. Troponin negative x 2. - Current home cardiac medications include none - No previous echo, stress test, or cardiac catheterization available in EMR for review 07/31/24 She underwent left heart catheterization 07/30/2024 which revealed CAD including 20-30% distal left main stenosis, LAD 20-30% stenosis, ramus 90% stenosis, ostial circumflex 99% stenosis, status post PCI of the ramus, status post PTCA circumflex with inability to get stent past the heavily calcified angulation. She was started on aspirin and Brilinta. Echocardiogram shows EF 55-60%, mild mitral regurgitation, mild tricuspid regurgitation. She reports that she has been up walking the halls multiple times. She does have occasional chest pressure that resolves when she sits down. She does feel better overall and thinks her shortness of breath has improved after stenting. She did have right arm swelling after procedure, this has improved today. 08/01/24 She reports that she has been feeling great today. She has been walking laps around the units and has not had any chest pain. No shortness of breath. Right forearm continues to improve. PHYSICAL EXAM: VITAL SIGNS: Reviewed. GENERAL: Well-developed in no acute distress. HEENT: Head is normocephalic. Pupils are equal, round. Sclerae anicteric. Mucous membranes of the mouth are moist. Neck supple. No JVD or thyromegaly LUNGS: Respirations even and unlabored. Lungs essentially clear to auscultation bilaterally. HEART: Regular rate and rhythm. S1 and S2 heard. ABDOMEN: Soft. Nondistended. Nontender. EXTREMITIES: Normal range of motion. No clubbing or cyanosis. Peripheral pulses intact. No lower extremity edema. Right radial site with slight swelling, radial and ulnar pulses intact, mild bruises and tenderness. NEUROLOGIC: Awake and alert. Oriented x 3. ASSESSMENT: CAD status post PCI ramus, PTCA circumflex Chest pain, troponin negative x 2 Diabetes, diet controlled per patient History of hypertension, not requiring medications per patient Anxiety Bipolar disorder Depression Obesity: BMI 37.7 Former nicotine dependence PLAN: Chest pain has resolved. We discussed medical management of residual blockage. Continue with dual antiplatelet therapy for 12 months. LDL goal less than 70. Smoking cessation was strongly advised. She is cleared for discharge. Follow- up in office in 1 week. Nurse practitioner note has been reviewed by physician. Signing provider agrees with the documented findings, assessment, and plan of care documented by LOCKSTITCH FRONT EDGE TAPE SEWER as a scribe. Objective - Vital Signs Vital signs: Vital Signs Temp 98.0 F 08/01/24 07:35 Pulse 63 08/01/24 07:35 Resp 16 08/01/24 07:35 BP 100/67 08/01/24 07:35 Pulse Ox 95 08/01/24 07:35 FiO2 Intake & Output 07/31/24 08/01/24 08/01/24 18:59 06:59 18:59 Intake Total 354 180 Balance 354 180 Intake: Oral 354 180 Other: # Voids 1 3 - Labs CBC & Chem 7: 07/30/24 17:35 07/31/24 04:20
== END 2024-08-01 12:47 | disposition home or self-care (01) ==
LOC: EC 21:21 → 6NMEDSUR 07-30 02:01
PROVIDERS: ADMIT Hospitalist; ATTEND Hospitalist
DX: I25.110 Atherosclerotic heart disease of native coronary artery with unstable angina pectoris (principal); R74.01 Elevation of levels of liver transaminase levels; E11.9 Type 2 diabetes mellitus without complications; I10 Essential (primary) hypertension; F31.9 Bipolar disorder, unspecified; F41.9 Anxiety disorder, unspecified; E78.5 Hyperlipidemia, unspecified; E66.9 Obesity, unspecified; Z68.37 Body mass index [BMI] 37.0-37.9, adult; Z87.891 Personal history of nicotine dependence; Z79.899 Other long term (current) drug therapy
CPT/HCPCS: 36415; 71046; 80048; 80053; 80061; 82565; 83735; 84484; 85025; 85610; 85730; 92921; 92978; 93005; 93306; 93351; 93458; 93799; 96374; 96375; 96376; 99285

== ENCOUNTER 2024-08-02 17:04 | Inpatient (IN) | payer BC ==
--- NOTE | 2024-08-02 17:53 | ED ---
Chest Pain HPI - General Chief Complaint: Chest Pain Stated Complaint: post op issues/pressure L side Time Seen by Provider: 08/02/24 17:10 Source: patient, family Mode of arrival: ambulatory Limitations: no limitations - History of Present Illness Initial Comments: Patient is a pleasant 49-year-old female past medical history CAD hypertension diabetes, recent heart cath 3 days ago with stent placement presenting for left sided chest pain and bruising along right forearm. Pt states that throughout the day today she has been feeling "off" .Prior to arrival, she began having heartburn and left sided chest pain that is pressure like and "feels like a rock".. Endorses mild shortness of breath. 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 Mild nausea but no vomiting. No abdominal pain, diarrhea. Also endorses concern for new bruising along her right forearm where she had her recent cardiac cath. No trauma. 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 - Related Data Previous Rx's Medication Instructions Recorded Aspirin 81 mg PO DAILY tab 08/01/24 Atorvastatin [Lipitor] 80 mg PO HS 30 Days #30 tab 08/01/24 Metoprolol Tartrate [Lopressor] 25 mg PO BID 30 Days #60 tab 08/01/24 Nitroglycerin Sl Tabs [Nitrostat] 0.4 mg SUBLINGUAL Q5M PRN 30 Days 08/01/24 #20 tab Ticagrelor [Brilinta] 90 mg PO BID 30 Days #60 tab 08/01/24 Allergies Allergy/AdvReac Type Severity Reaction Status Date / Time capsaicin Allergy Rash/Hives/ Verified 08/02/24 18:30 Swelling Review of Systems ROS Statement: Those systems with pertinent positive or pertinent negative responses have been documented in the HPI. ROS Other: All systems not noted in ROS Statement are negative. Constitutional: Denies: fever Respiratory: Reports: dyspnea. Denies: cough, wheezes, hemoptysis, stridor Cardiovascular: Reports: chest pain. Denies: edema, syncope Gastrointestinal: Reports: nausea. Denies: abdominal pain, vomiting, diarrhea Skin: Reports: change in color (Bruising) EKG Findings - EKG Comments: EKG Findings:: Sinus rhythm, rate 70 bpm, normal intervals, normal axis, no ST elevation, compared to EKG performed on 07/31/2024, T wave in V2 is now upright otherwise no significant changes from prior. EKG performed at 1947, sinus rhythm, [place] normal 118 ms, Rate 66 bpm, QRS duration 102 ms, QT/QTc 411/424, normal axis, no significant changes or new ST elevations or depressions from performed earlier. Third EKG performed at 2203, rate 55 bpm, [place] interval 120 ms, QRS duration 106 ms, QT/QTc 434/423 ms, normal axis, no ST elevation or depression, no significant changes from prior Past Medical History Past Medical History: Coronary Artery Disease (CAD), Diabetes Mellitus, Hypertension, Osteoarthritis (OA), Skin Disorder Additional Past Medical History / Comment(s): KIDNEY STONES, diet controlled diabetic-no longer needs med, no longer needs BP med, seasonal allergies, abscess right breast, left breast hx. of abscess, yeast in skin fold in abd. History of Any Multi-Drug Resistant Organisms: None Reported Past Surgical History: Appendectomy, Breast Surgery, Cholecystectomy, Heart Catheterization With Stent, Orthopedic Surgery, Tubal Ligation Additional Past Surgical History / Comment(s): carpal tunnel RIGHT WRIST, dental, abcess drainage left breast x2 (July 2016, March 2019, Aug 2019); RT breast I&D 05/22/21, 06/05/21; Left ankle surgery. Past Anesthesia/Blood Transfusion Reactions: No Reported Reaction, Family History of Problems w/ Anesthesia Additional Past Anesthesia/Blood Transfusion Reaction / Comment(s): No blood transfusion to date, mom stopped breathing during a surg. & had to be resuscitated Past Psychological History: Anxiety, Bipolar, Depression Smoking Status: Former smoker Past Alcohol Use History: None Reported Past Drug Use History: Marijuana - Past Family History Mother Family Medical History: Cancer Additional Family Medical History / Comment(s): CERVICAL CANCER General Exam - General Exam Comments Initial Comments: PE: CONSTITUTIONAL: No apparent distress, well appearing SKIN: [warm, dry, large bruise along palmar aspect right forearm, scattered bruises along RUE, no rashes EYES: Pupils are equally round, extraocular movements intact without nystagmus, clear conjunctiva, non-icteric sclera HENT: Normocephalic, atraumatic, moist mucus membranes, oropharynx clear without exudates NECK: , Full range of motion, normal appearance PULMONARY: Clear to auscultation without wheezes, rhonchi, or rales, normal excursion, no accessory muscle use and no stridor CARDIOVASCULAR: Regular rate, rhythm, normal S1 and S2. No appreciated murmurs, rubs or gallops. Strong radial pulses with intact distal perfusion. No bruit or expanding hematoma over right forearm/ right radial artery, less 2 s capillary refill in right upper extremity, no lower extremity edema, reproducible CP left lateral chest wall inferior to axilla, no swelling or skin changes present GASTROINTESTINAL: Soft, non-tender, non-distended, no palpable masses, no rebound or guarding. No hepatosplenomegaly MUSCULOSKELETAL: Extremities have no gross deformity, no edema, redness, or swelling. No calf swelling NEUROLOGIC:_a/o x 3, GCS 15, normal mentation and speech. Moves all extremities x 4 without motor or sensory deficit PSYCHIATRIC:_normal mood and affect, thought process is clear and linear Limitations: no limitations Course Vital Signs 08/02/24 08/02/24 08/02/24 17:06 17:55 18:09 Temperature 98.1 F Pulse Rate 82 75 75 Respiratory 20 20 20 Rate Blood Pressure 175/75 141/77 138/77 O2 Sat by Pulse 99 96 96 Oximetry 08/02/24 08/02/24 08/02/24 19:49 22:53 23:08 Temperature Pulse Rate 63 56 L 58 L Respiratory 18 16 Rate Blood Pressure 144/74 108/75 104/67 O2 Sat by Pulse 98 96 Oximetry 08/03/24 00:13 Temperature Pulse Rate 55 L Respiratory 16 Rate Blood Pressure 96/59 O2 Sat by Pulse 98 Oximetry - Reevaluation(s) Reevaluation #1: Discussed with Dr. Ogden, recommends repeat EKG which was obtained prior to our discussion did not show any significant changes, repeat troponin currently pending, GI cocktail, if pain worsens, patient's clinical condition worsens or troponin significantly needed he request return call. 08/02/24 20:32 Chest Pain MDM - MDM was pt. sent in by a medical professional or institution (, PA, MARKETING INFORMATION MANAGER, urgent care, hospital, or shelter...) When possible be specific @ -No Did you speak to anyone other than the patient for history (EMS, parent, family, police, friend...)? What history was obtained from this source @ -No Did you review nursing and triage notes (agree or disagree)? Why? @ -I reviewed and agree with nursing and triage notes with exception of the fact that it is stated the patient is not short of breath though she does endorse mild shortness of breath to me Were old charts reviewed (outside hosp., previous admission, EMS record, old EKG, old radiological studies, urgent care reports/EKG's, shelter records)? Report findings @ Patient discharged on 08/01/2024 she was admitted after presenting on Friday for left-sided chest pain EKG at the time showed sinus rhythm with ST depression in lead II troponin negative x 2 patient had left heart cath done on 07/30/2024 which showed CAD including 20 to 30% distal left main artery stenosis, LAD 20 to 30% stenosis, "ramus 90% stenosis" ostial circumflex 99% stenosis PCI was performed, could not pass a stent into the PTCA due to heavily calcified angulation echocardiogram 55 to 60% Differential Diagnosis (chest pain, altered mental status, abdominal pain women, abdominal pain men, vaginal bleeding, weakness, fever, dyspnea, syncope, headache, dizziness, GI bleed, back pain, seizure, CVA, palpatations, mental health, musculoskeletal)? @Differential Chest Pain: Stable Angina, Unstable Angina, STEMI, NSTEMI Aortic Dissection, pericarditis, pleurisy, chostochondirits, Pneumothorax, Musculoskeletal, Esophageal Spasm GERD, Cholecystitis, Pancreatitis, Zoster, this is not meant to be an all- inclusive list. EKG interpreted by me (3pts min.). @ -No STEMI, normal sinus rhythm X-rays interpreted by me (1pt min.). @Reviewed, I see no cardiomegaly, effusions or consolidations CT interpreted by me (1pt min.). @ -None done U/S interpreted by me (1pt. min.). @ -None done What testing was considered but not performed or refused? (CT, X-rays, U/S, labs)? Why? @ -None What meds were considered but not given or refused? Why? @ -None Did you discuss the management of the patient with other professionals (professionals i.e. , PA, MARKETING INFORMATION MANAGER, lab, RT, psych nurse, group social worker, summons server, teacher, chief program officer, manager of case management)? Give summary @ -No Was smoking cessation discussed for >3mins.? @ -No Was critical care preformed (if so, how long)? @ Yes 45 minutes spent discussing patient with consultants, evaluation, patient reevaluation of patient, ordering and interpreting labs and imaging Were there social determinants of health that impacted care today? How? (Homelessness, low income, unemployed, alcoholism, drug addiction, transportation, low edu. Level, literacy, decrease access to med. care, long term, rehab)? @ -No Was there de-escalation of care discussed even if they declined (Discuss DNR or withdrawal of care, Hospice)? @ -No What co-morbidities impacted this encounter? (DM, HTN, Smoking, COPD, CAD, Cancer, CVA, ARF, Chemo, Hep., AIDS, mental health diagnosis, sleep apnea, morbid obesity)? @ -CAD Was patient admitted / discharged? Hospital course, mention meds given and route, prescriptions, significant lab abnormalities, going to OR and other pertinent info. @ -Hospital course Patient is a pleasant 49-year-old female past medical history diabetes, hypert ension, CAD recent stent placement discharged the hospital yesterday presenting today for left chest pain and bruising on her right arm. Patient stable vitals on arrival. On initial assessment patient is calm, pleasant conversant and well-appearing. She does have extensive bruising along the right forearm without large hematoma formation, there is no palpable bruit to radial artery and 2+ pulse present in radial artery, extremity is otherwise pink and well perfused with <2s cap refill. Will plan for chest pain workup including troponin, D-dimer, chest x-ray versus CT PE study pending D-dimer, comprehensive labs, sublingual nitroglycerin ordered, morphine, Pepcid, Zofran and 324 mg of aspirin. No pain improvement with SL nitro. Troponin 0.045. Patient's prior troponin on 07/30 was less than 0.012 however patient has had a current heart cath since then. Given active chest pain and elevated troponin will initiate heparin for NSTEMI repeat troponin will be ordered, patient does continue to have pain however slightly better than prior, ordered additional morphine. Discussed with patient plan for heparin and admission. Patient agreeable with plan. Will additionally obtain repeat EKG to ensure no dynamic changes since arrival. Ultrasound of the right upper extremity showed no pseudoaneurysm additionally CT from 07/30/2024 obtained after forearm swelling post cath showed no acute process. Discussed case with Dr. Vasquez, who kindly accepts patient for admission. Request cardiology consult. Paged Dr. Ogden place. Admission orders placed. Discussed case with Dr. Ogden, cardiology, he request repeat EKG which did not show any changes from prior, requested he contacted if repeat troponin rise or chest pain continued. 23:33- Patient did have return of chest pain, rated 7 out of 10, given 2 sublingual nitroglycerin which resolved the pain. Troponin trended from 0.045-0 0.050-0.054. On reassessment patient is comfortable though does endorse mild headache. Tylenol and Valium ordered for headache. Discussed with Dr. Ogden, he will plan to see patient in the morning. Undiagnosed new problem with uncertain prognosis? @ -No Drug Therapy requiring intensive monitoring for toxicity (Heparin, Nitro, Insulin, Cardizem)? @ -Yes Were any procedures done? @ -No Diagnosis/symptom? @ -NSTEMI Acute, or Chronic, or Acute on Chronic? @ -Acute Uncomplicated (without systemic symptoms) or Complicated (systemic symptoms)? @ -Complicated Side effects of treatment? @ -No Exacerbation, Progression, or Severe Exacerbation? @ -No Poses a threat to life or bodily function? How? (Chest pain, [place], [place], pneumonia, PE, COPD, DKA, ARF, appy, cholecystitis, CVA, Diverticulitis, Homicidal, Suicidal, threat to staff... and all critical care pts) @ -Yes, Chest pain/NSTEMI, if allowed to continue untreated could result in STEMI and cardiac failure Disposition Clinical Impression: Acute non-ST elevation myocardial infarction (NSTEMI) Disposition: ADMITTED IP TO THIS HOSP
[2024-08-02] MEDS: NITROGLYCERIN SL TABS 0.4 MG TAB SUBLINGUAL STA (17:59)
[2024-08-02] MEDS: SODIUM CHLORIDE 0.9% 500 ML 500 ML IV STA (18:00)
[2024-08-02] MEDS: ASPIRIN 81 MG PO STA (18:01)
[2024-08-02] MEDS: ONDANSETRON 4 MG/2 ML VIAL IVP STA ×2 (18:04→19:50)
[2024-08-02] MEDS: FAMOTIDINE 20 MG/2 ML VIAL IV STA (18:07)
[2024-08-02 18:09] LABS: Basophils % (A) 1 %; Eosinophils # (A) 0.2 k/uL (0-0.7); Eosinophils % (A) 5 %; HCT 36.7 % (34.0-46.0); HGB 12.4 gm/dL (11.4-16.0); Lymphocytes # (A) 1.3 k/uL (1.0-4.8); Lymphocytes % (A) 35 %; MCH 30.5 pg (25.0-35.0); MCHC 33.8 g/dL (31.0-37.0); MCV 90.1 fL (80.0-100.0); Mean Platelet Volume 9.9; Monocytes # (A) 0.2 k/uL (0-1.0); Monocytes % (A) 6 %; Neutrophils # (A) 1.9 k/uL (1.3-7.7); Neutrophils % (A) 52 %; RBC 4.07 m/uL (3.80-5.40); WBC 3.7 k/uL (3.8-10.6)
[2024-08-02] MEDS: ACETAMINOPHEN TAB 500 MG TAB PO STA (18:18)
[2024-08-02] MEDS: MORPHINE SULFATE 4 MG/ML SYRINGE IVP STA ×2 (18:19→19:51)
[2024-08-02 18:29] LABS: INR 1.1 (<1.2); Prothrombin Time 11.7 sec (10.0-12.5)
[2024-08-02 18:44] LABS: ALT 61 U/L (4-34); AST 77 U/L (14-36); African American GFR (CKD) >90 (>60 ml/min/1.73 sqM); Albumin 3.9 g/dL (3.5-5.0); Alkaline Phosphatase 154 U/L (38-126); Amylase 60 U/L (30-110); Anion Gap 7 mmol/L; Blood Urea Nitrogen 12 mg/dL (7-17); Carbon Dioxide 25 mmol/L (22-30); Chloride 106 mmol/L (98-107); Glucose 162 mg/dL (74-99); Lipase 210 U/L (23-300); Magnesium 1.7 mg/dL (1.6-2.3); Non-African American GFR(CKD) >90 (>60 ml/min/1.73 sqM); Sodium 138 mmol/L (137-145); Total Bilirubin 1.3 mg/dL (0.2-1.3)
--- NOTE | 2024-08-02 18:49 | US ---
EXAMINATION TYPE: US upper ext pseudo RT DATE OF EXAM: 08/02/2024 COMPARISON: CT: 07/30/24 CLINICAL INDICATION: Female, 49 years old with history of recent heart cath, new bruising pain; heart cath on 07/30/24. Bruising from wrist to elbow TECHNIQUE: Area of bruising scanned FINDINGS: No evidence for a pseudoaneurysm seen on today's study No suspicious vascular anomaly is identified. No hematoma is identified. Soft tissues appear unremark able. IMPRESSION: 1. No suspicious changes to suggest pseudoaneurysm
[2024-08-02 18:52] LABS: NT-Pro-B-Type Natriuretic Pept 291 pg/mL
[2024-08-02 19:01] LABS: Platelet Count 89 k/uL (150-450)
[2024-08-02 19:03] LABS: RBC Morphology Normal
[2024-08-02] MEDS: HEPARIN SOD,PORK IN 0.45% NACL 25,000 UNIT in 0.45% NACL 1 250ML.BAG IV SCH (19:57)
[2024-08-02] MEDS: HEPARIN SODIUM 1,000 UN/ML (10ML VL) IV ONE (20:02)
[2024-08-02] MEDS: METOPROLOL TARTRATE 25 MG TAB PO SCH (20:13)
[2024-08-02] MEDS: ATORVASTATIN 80 MG TAB PO SCH (20:13)
[2024-08-02] MEDS: MAG HYDROX/AL HYDROX/SIMETH 30 ML, HYOSCYAMINE ELIXIR 10 ML, LIDOCAINE VISCOUS 2% 10 ML PO ONE (20:51)
[2024-08-02] MEDS: NITROGLYCERIN SL TABS 0.4 MG TAB SUBLINGUAL PRN (23:00)
[2024-08-03] MEDS: ACETAMINOPHEN TAB 500 MG TAB PO ONE (00:10)
[2024-08-03] MEDS: diazePAM 2 MG TAB PO STA (00:10)
--- NOTE | 2024-08-03 01:40 | XR ---
EXAMINATION TYPE: XR chest 2V DATE OF EXAM: 08/03/2024 COMPARISON: Prior chest x-ray July 29, 2024 HISTORY: Difficulty in breathing. TECHNIQUE: Frontal and lateral views of the chest are obtained. FINDINGS: There is no suspicious new focal air space opacity, pleural effusion, or pneumothorax seen . The cardiac silhouette size remains within normal limits. The osseous structures are intact. Cho lecystectomy clips are redemonstrated. IMPRESSION: No acute cardiopulmonary process.
[2024-08-03 03:45] LABS: Mean Platelet Volume 10.3
[2024-08-03 03:46] LABS: Platelet Count 97 k/uL (150-450)
--- NOTE | 2024-08-03 08:46 | P.HPIM ---
History of Present Illness This is a pleasant 49 years old female who was recently discharged from the hospital on 08/01 after she had cardiac cath. Patient presents because of chest pain thought secondary to unstable angina with negative troponins. She underwent left heart catheterization 07/30/2024 showing CAD i with 20-30% distal left main stenosis, LAD 20-30% stenosis, ramus 90% stenosis, ostial circumflex 99% stenosis, status post PCI of the ramus, status post PTCA circumflex. She was started on aspirin and Brilinta. After discharge patient could not fill up her prescription because it was a long weekend holiday for . She presents this time because of chest pain that lasted about 15 minutes. Patient currently denies chest pain no dyspnea. No coughing No other /GI symptoms. Earlier she had nausea which is resolved now. No abdominal pain vomiting diarrhea. No headache dizziness weakness or numbness She smokes cigarettes and states she quit smoking today without specification. Nicotine patch offered but she declines. She drinks alcohol occasionally. No illicit drugs. Her lab instructor is Dr. Ogden that she intends to follow-up in 1 week. She states she has no PCP but she intends to find 1. Hemodynamically stable Labs showing WBC 3.7 and platelet count 9.7. Liver enzymes mildly elevated. Troponin are elevated 0.4 and 0.5 and 0.5 D-dimer negative at 0.55 proBNP is 291 Amylase lipase negative Chest x-ray is negative for acute process EKG showing sinus bradycardia at [address]-T changes Upper extremity duplex of the forearm was negative. Review of Systems Review of systems CONSTITUTIONAL: No fever, no malaise, no fatigue. HEENT: No recent visual problems or hearing problems. Denied any sore throat. CARDIOVASCULAR: No orthopnea, PND, no palpitations, no syncope. PULMONARY: No shortness of breath, no cough, no hemoptysis. GASTROINTESTINAL: No diarrhea, no nausea, no vomiting, no abdominal pain. Normoactive bowel sounds. NEUROLOGICAL: No headaches, no weakness, no numbness. HEMATOLOGICAL: Denies any bleeding or petechiae. GENITOURINARY: Denies any burning micturition, frequency, or urgency. MUSCULOSKELETAL/RHEUMATOLOGICAL: Denies any joint pain, swelling, or any muscle pain. ENDOCRINE: Denies any polyuria or polydipsia. Past Medical History Past Medical History: Coronary Artery Disease (CAD), Diabetes Mellitus, Hypertension, Osteoarthritis (OA), Skin Disorder Additional Past Medical History / Comment(s): KIDNEY STONES, diet controlled diabetic-no longer needs med, no longer needs BP med, seasonal allergies, abscess right breast, left breast hx. of abscess, yeast in skin fold in abd. History of Any Multi-Drug Resistant Organisms: None Reported Past Surgical History: Appendectomy, Breast Surgery, Cholecystectomy, Heart Catheterization With Stent, Orthopedic Surgery, Tubal Ligation Additional Past Surgical History / Comment(s): carpal tunnel RIGHT WRIST, dental, abcess drainage left breast x2 (July 2016, March 2019, Aug 2019); RT breast I&D 05/22/21, 06/05/21; Left ankle surgery. Past Anesthesia/Blood Transfusion Reactions: No Reported Reaction, Family History of Problems w/ Anesthesia Additional Past Anesthesia/Blood Transfusion Reaction / Comment(s): No blood transfusion to date, mom stopped breathing during a surg. & had to be resuscitated Date of Last Stent Placement:: 07/30/24 Past Psychological History: Anxiety, Bipolar, Depression Smoking Status: Former smoker Past Alcohol Use History: None Reported Past Drug Use History: Marijuana - Past Family History Mother Family Medical History: Cancer Additional Family Medical History / Comment(s): CERVICAL CANCER Medications and Allergies Home Medications Medication Instructions Recorded Confirmed Type Aspirin 81 mg PO DAILY tab 08/01/24 08/02/24 Rx Atorvastatin [Lipitor] 80 mg PO HS 30 Days #30 tab 08/01/24 08/02/24 Rx Metoprolol Tartrate [Lopressor] 25 mg PO BID 30 Days #60 tab 08/01/24 08/02/24 Rx Nitroglycerin Sl Tabs [Nitrostat] 0.4 mg SUBLINGUAL Q5M PRN 30 Days 08/01/24 08/02/24 Rx #20 tab Ticagrelor [Brilinta] 90 mg PO BID 30 Days #60 tab 08/01/24 08/02/24 Rx Allergies Allergy/AdvReac Type Severity Reaction Status Date / Time capsaicin Allergy Rash/Hives/ Verified 08/02/24 18:30 Swelling Physical Exam Vitals: Vital Signs Temp Pulse Resp BP Pulse Ox 08/03/24 07:32 67 18 124/69 95 08/03/24 06:07 58 L 18 104/55 98 08/03/24 03:00 64 18 141/87 98 08/03/24 00:13 55 L 16 96/59 98 08/02/24 23:08 58 L 104/67 08/02/24 22:53 56 L 16 108/75 96 08/02/24 19:49 63 18 144/74 98 08/02/24 18:09 75 20 138/77 96 08/02/24 17:55 75 20 141/77 96 08/02/24 17:06 98.1 F 82 20 175/75 99 Intake and Output 08/02/24 08/03/24 08/03/24 22:59 06:59 14:59 Intake Total 94.954 4.767 Balance 94.954 4.767 Intake: Intake, IV Titration 94.954 4.767 Amount Heparin Sod,Pork in 0.45% 94.954 4.767 NaCl 25,000 unit In 0.45 % NaCl 1 250ml.bag @ 10.4 UNITS/KG/HR 10.048 mls/ hr IV .Q24H [facility] Rx#: [id number] Other: Weight 96.615 kg -GENERAL: The patient is alert and oriented x3, not in any acute distress. Well developed, well nourished. Obese HEENT: Pupils are round and equally reacting to light. EOMI. No scleral icterus. No conjunctival pallor. Normocephalic, atraumatic. No pharyngeal erythema. No thyromegaly. CARDIOVASCULAR: S1 and S2 present. No murmurs, rubs, or gallops. PULMONARY: Chest is clear to auscultation, no wheezing , no crackles. ABDOMEN: Soft, nontender, nondistended, normoactive bowel sounds. No palpable organomegaly. MUSCULOSKELETAL: No joint swelling or deformity. -EXTREMITIES: No cyanosis, clubbing, or pedal edema. Ecchymosis of the right forearm on the medial side. NEUROLOGICAL: Gross neurological examination did not reveal any focal deficits. SKIN: No rashes. no petechiae. Results CBC & Chem 7: 08/03/24 02:46 08/02/24 17:57 Labs: Abnormal Lab Results - Last 24 Hours (Table) 08/02/24 08/02/24 08/02/24 Range/Units 17:57 17:57 17:57 WBC 3.7 L (3.8-10.6) k/uL Plt Count 89 L (150-450) k/uL APTT (22.0-30.0) sec Glucose 162 H (74-99) mg/dL AST 77 H (14-36) U/L ALT 61 H (4-34) U/L Alkaline Phosphatase 154 H (38-126) U/L Troponin I 0.045 H* (0.000-0.034) ng/mL 08/02/24 08/02/24 08/03/24 Range/Units 20:37 22:50 02:46 WBC (3.8-10.6) k/uL Plt Count 97 L (150-450) k/uL APTT (22.0-30.0) sec Glucose (74-99) mg/dL AST (14-36) U/L ALT (4-34) U/L Alkaline Phosphatase (38-126) U/L Troponin I 0.050 H* 0.054 H* (0.000-0.034) ng/mL 08/03/24 08/03/24 08/03/24 Range/Units 04:43 06:25 07:52 WBC (3.8-10.6) k/uL Plt Count (150-450) k/uL APTT >200.0 H* 92.0 H 61.0 H (22.0-30.0) sec Glucose (74-99) mg/dL AST (14-36) U/L ALT (4-34) U/L Alkaline Phosphatase (38-126) U/L Troponin I (0.000-0.034) ng/mL Thrombosis Risk Factor Assmnt - Choose All That Apply Each Factor Represents 1 point: Age 41-60 years Other Risk Factors: No Other congenital or acquired thrombophilia - If yes, enter type in comment: No Thrombosis Risk Factor Assessment Total Risk Factor Score: 1 Thrombosis Risk Factor Assessment Level: Low Risk Assessment and Plan Assessment: Chest pain with mildly elevated troponin and review of recent stent placement to ramus branch and PTCA circumflex. Related to her unstable angina. Nonadherence to therapy because it was holiday and she could not follow-up her prescription from the pharmacy Mild transaminitis Mild bicytopenia with leukopenia and thrombocytopenia Hypertension Diabetes Nicotine dependence Osteoarthritis History of kidney stones Plan: Continue with aspirin and Brilinta Patient states that her medicine will be available today after 12 PM and that she intends to pick it up and start taking the medication as directed Continue with metoprolol Cardiology team consult Labs and medication were reviewed.. Continue same treatment. Continue with symptomatic treatment. Resume home medication. Monitor labs and vitals. DVT and GI prophylaxis. Further recommendations as per clinical course of the patient DVT prophylaxis: She is on dual antiplatelet therapy GI Prophylaxis: Ppi Prognosis is guarded
[2024-08-03] MEDS ORDERED: ASPIRIN 325 MG TAB PO SCH (09:00)
[2024-08-03] MEDS: ASPIRIN 81 MG PO SCH ×2 (09:30→10:54)
[2024-08-03] MEDS: PANTOPRAZOLE 40 MG/10 ML VIAL IVP SCH (09:30)
[2024-08-03] MEDS: TICAGRELOR 90 MG TAB PO SCH (09:30)
[2024-08-03] MEDS: ATORVASTATIN 80 MG TAB PO STA (10:54)
[2024-08-03] MEDS: SODIUM CHLORIDE 0.9% 1,000 ML in EMPTY BAG 1 BAG IV SCH (10:57)
[2024-08-03] MEDS: ASPIRIN 325 MG TAB PO STA (10:59)
[2024-08-03] MEDS ORDERED: VERAPAMIL 2.5 MG/ML 2 ML AMP ONE (11:29)
[2024-08-03] MEDS ORDERED: fentaNYL (PF) 50 MCG/ML 2 ML AMP ONE (11:30)
[2024-08-03] MEDS ORDERED: HEPARIN SODIUM 1,000 UN/ML (10ML VL) ONE (11:30)
[2024-08-03] MEDS ORDERED: LIDOCAINE 1% INJ 10MG/ML (20 ML MDV) ONE (11:30)
--- NOTE | 2024-08-03 11:39 | P.CRDCN ---
History of Present Illness History of present illness: HISTORY OF PRESENT ILLNESS: This is a 49-year-old female with a past medical history significant for coronary artery disease, diabetes, hypertension, anxiety, bipolar disorder, and depression. Patient follows in the office with Dr. Ogden. We have been asked to see the patient in consultation for non-STEMI. Patient examined at the bedside in the emergency room. Patient was recently admitted for chest pain and underwent stress echocardiogram which came in to be abnormal. She underwent cardiac catheterization with Dr. Ogden on July 30, 2024 revealing 20 to 30% distal left main stenosis, LAD 20 to 30% stenosis, ramus 90% stenosis, ostial circumflex 99% stenosis. She underwent PCI of the ramus and also PTCA of the circumflex with inability to get a stent past the heavily calcified ostial circumflex angulation. Patient was discharged home in stable condition on Friday, August 01, 2024. The patient states she was feeling well at home. She states that yesterday she began to have pain in her right arm that radiated up into her arm. She also reports that she developed chest pain that went into her left arm, underneath her armpit, and her left shoulder blade. She decided to come to the emergency room for further evaluation. The patient does report having another episode of chest pain while in the ER around 2 AM. She received nitro at that time which relieved her pain. She denies having any episodes of chest pain since that time. The patient does report she was unable to get her prescriptions for her Brilinta on Friday when she was discharged. She states that she spoke with one of Dr. Zhang partners on the day of discharge who apparently told her it was okay to miss a day. Her last dose of Brilinta was Friday morning. DIAGNOSTICS: - EKG reveals sinus mechanism with nonspecific ST-T wave changes - Chest xray negative for acute process - Laboratory data: Troponin 0.045. 0.050. 0.054. - Current home cardiac medications include aspirin 81 mg daily, Lipitor 80 mg at night, metoprolol tartrate 25 mg twice a day, Brilinta 90 mg twice a day. - Most recent echocardiogram obtained in July 2024 revealed ejection fraction 55 to 60% with mild MR, mild TR REVIEW OF SYSTEMS: At the time of my exam: CONSTITUTIONAL: Denies fever or chills. HEENT: Denies blurred vision, vision changes, or eye pain. Denies hemoptysis CARDIOVASCULAR: Denies chest pain. Denies orthopnea. Denies PND. Denies palpitations RESPIRATORY: Denies shortness of breath. GASTROINTESTINAL: Denies abdominal pain. Denies nausea or vomiting. HEMATOLOGIC: Denies bleeding disorders. GENITOURINARY: Denies any blood in urine. SKIN: Denies pruitis. Denies rash. PHYSICAL EXAM: VITAL SIGNS: Reviewed. GENERAL: Well-developed in no acute distress. HEENT: Head is normocephalic. Pupils are equal, round. Sclerae anicteric. Mucous membranes of the mouth are moist. Neck supple. No JVD or thyromegaly LUNGS: Respirations even and unlabored. Lungs essentially clear to auscultation bilaterally. HEART: Regular rate and rhythm. S1 and S2 heard. ABDOMEN: Soft. Nondistended. Nontender. EXTREMITIES: Normal range of motion. No clubbing or cyanosis. Peripheral pulses intact. No lower extremity edema. Right upper extremity with bruising noted. NEUROLOGIC: Awake and alert. Oriented x 3. ASSESSMENT: Chest pain Elevated troponins, flat, acute coronary event ruled out, likely secondary to recent cardiac catheterization Coronary artery disease, status post PCI of the ramus and also PTCA of the circumflex with inability to get a stent past the heavily calcified ostial circ umflex angulation, July 30, 2024 Hypertension, not requiring medications for patient Diabetes, diet controlled per patient Anxiety Bipolar disorder Depression Obesity: BMI 37.7 Former nicotine dependence PLAN: An acute coronary event has been ruled out Discontinue IV heparin Continue dual antiplatelet therapy with aspirin and Brilinta. Reinforced with patient that she is not to stop these medications or miss any doses. Continue additional cardiac medications Patient to undergo cardiac catheterization today with Dr. Ogden Further recommendations pending patient course Nurse practitioner note has been reviewed by physician. Signing provider agrees with the documented findings, assessment, and plan of care documented by [employer]ING INSPECTOR as a scribe. Past Medical History Past Medical History: Coronary Artery Disease (CAD), Diabetes Mellitus, Hypertension, Osteoarthritis (OA), Skin Disorder Additional Past Medical History / Comment(s): KIDNEY STONES, diet controlled diabetic-no longer needs med, no longer needs BP med, seasonal allergies, abscess right breast, left breast hx. of abscess, yeast in skin fold in abd. History of Any Multi-Drug Resistant Organisms: None Reported Past Surgical History: Appendectomy, Breast Surgery, Cholecystectomy, Heart Catheterization With Stent, Orthopedic Surgery, Tubal Ligation Additional Past Surgical History / Comment(s): carpal tunnel RIGHT WRIST, dental, abcess drainage left breast x2 (July 2016, March 2019, Aug 2019); RT breast I&D 05/22/21, 06/05/21; Left ankle surgery. Past Anesthesia/Blood Transfusion Reactions: No Reported Reaction, Family History of Problems w/ Anesthesia Additional Past Anesthesia/Blood Transfusion Reaction / Comment(s): No blood transfusion to date, mom stopped breathing during a surg. & had to be resuscitated Date of Last Stent Placement:: 07/30/24 Past Psychological History: Anxiety, Bipolar, Depression Smoking Status: Former smoker Past Alcohol Use History: None Reported Past Drug Use History: Marijuana - Past Family History Mother Family Medical History: Cancer Additional Family Medical History / Comment(s): CERVICAL CANCER Medications and Allergies Home Medications Medication Instructions Recorded Confirmed Type Aspirin 81 mg PO DAILY tab 08/01/24 08/02/24 Rx Atorvastatin [Lipitor] 80 mg PO HS 30 Days #30 tab 08/01/24 08/02/24 Rx Metoprolol Tartrate [Lopressor] 25 mg PO BID 30 Days #60 tab 08/01/24 08/02/24 Rx Nitroglycerin Sl Tabs [Nitrostat] 0.4 mg SUBLINGUAL Q5M PRN 30 Days 08/01/24 08/02/24 Rx #20 tab Ticagrelor [Brilinta] 90 mg PO BID 30 Days #60 tab 08/01/24 08/02/24 Rx Allergies Allergy/AdvReac Type Severity Reaction Status Date / Time capsaicin Allergy Rash/Hives/ Verified 08/02/24 18:30 Swelling Physical Exam Vitals: Vital Signs Temp Pulse Resp BP Pulse Ox 08/03/24 07:32 67 18 124/69 95 08/03/24 06:07 58 L 18 104/55 98 08/03/24 03:00 64 18 141/87 98 08/03/24 00:13 55 L 16 96/59 98 08/02/24 23:08 58 L 104/67 08/02/24 22:53 56 L 16 108/75 96 08/02/24 19:49 63 18 144/74 98 08/02/24 18:09 75 20 138/77 96 08/02/24 17:55 75 20 141/77 96 08/02/24 17:06 98.1 F 82 20 175/75 99 Intake and Output 08/02/24 08/03/24 08/03/24 22:59 06:59 14:59 Intake Total 94.954 4.767 Balance 94.954 4.767 Intake: Intake, IV Titration 94.954 4.767 Amount Heparin Sod,Pork in 0.45% 94.954 4.767 NaCl 25,000 unit In 0.45 % NaCl 1 250ml.bag @ 10.4 UNITS/KG/HR 10.048 mls/ hr IV .Q24H [facility] Rx#: [id number] Other: Weight 96.615 kg Results 08/03/24 02:46 08/02/24 17:57 Cardiac Enzymes 08/02/24 08/02/24 08/02/24 Range/Units 17:57 17:57 20:37 AST 77 H (14-36) U/L Troponin I 0.045 H* 0.050 H* (0.000-0.034) ng/mL 08/02/24 Range/Units 22:50 AST (14-36) U/L Troponin I 0.054 H* (0.000-0.034) ng/mL Coagulation 08/02/24 08/03/24 08/03/24 Range/Units 17:57 04:43 06:25 PT 11.7 (10.0-12.5) sec APTT 26.0 >200.0 H* 92.0 H (22.0-30.0) sec CBC 08/02/24 08/03/24 Range/Units 17:57 02:46 WBC 3.7 L (3.8-10.6) k/uL RBC 4.07 (3.80-5.40) m/uL Hgb 12.4 (11.4-16.0) gm/dL Hct 36.7 (34.0-46.0) % Plt Count 89 L 97 L (150-450) k/uL Comprehensive Metabolic Panel 08/02/24 Range/Units 17:57 Sodium 138 (137-145) mmol/L Potassium 4.0 (3.5-5.1) mmol/L Chloride 106 (98-107) mmol/L Carbon Dioxide 25 (22-30) mmol/L BUN 12 (7-17) mg/dL Creatinine 0.78 (0.52-1.04) mg/dL Glucose 162 H (74-99) mg/dL Calcium 9.0 (8.4-10.2) mg/dL AST 77 H (14-36) U/L ALT 61 H (4-34) U/L Alkaline Phosphatase 154 H (38-126) U/L Total Protein 7.0 (6.3-8.2) g/dL Albumin 3.9 (3.5-5.0) g/dL Current Medications Generic Name Dose Route Start Last Admin Trade Name Freq PRN Reason Stop Dose Admin Aspirin 325 mg 08/03/24 09:00 Aspirin 325 Mg Tab PO DAILY [facility] Atorvastatin Calcium 80 mg 08/02/24 21:00 08/02/24 20:13 Atorvastatin 80 Mg Tab PO 80 mg HS [facility] Administration Heparin Sodium/Sodium Chloride 250 mls @ 10.048 mls/hr 08/02/24 19:30 07:08 25,000 unit/ Sodium Chloride IV 0 units/kg/hr .Q24H [facility] 0 mls/hr Titration Protocol 10.4 UNITS/KG/HR Metoprolol Tartrate 25 mg 08/02/24 21:00 08/02/24 20:13 Metoprolol Tartrate 25 Mg Tab PO 25 mg BID G[facility]O Administration Nitroglycerin 0.4 mg 08/02/24 19:50 08/02/24 23:30 Nitroglycerin Sl Tabs 0.4 Mg Tab SUBLINGUAL 0.4 mg Q5M PRN Administration Chest Pain Intake and Output 08/02/24 08/03/24 08/03/24 22:59 06:59 14:59 Intake Total 94.954 4.767 Balance 94.954 4.767 Intake: Intake, IV Titration 94.954 4.767 Amount Heparin Sod,Pork in 0.45% 94.954 4.767 NaCl 25,000 unit In 0.45 % NaCl 1 250ml.bag @ 10.4 UNITS/KG/HR 10.048 mls/ hr IV .Q24H [facility] Rx#: [id number] Other: Weight 96.615 kg 08/03/24 02:46 08/02/24 17:57
[2024-08-03] MEDS: fentaNYL (PF) 50 MCG/ML 2 ML AMP IVP ONE ×2 (11:45→11:50)
[2024-08-03] MEDS: MIDAZOLAM 2 MG/2 ML VIAL IVP ONE ×2 (11:45→11:50)
[2024-08-03] MEDS: LIDOCAINE 1% INJ 10MG/ML (20 ML MDV) SQ ONE (11:46)
[2024-08-03] MEDS: HEPARIN SODIUM 1,000 UN/ML (10ML VL) IVP ONE (11:56)
[2024-08-03] MEDS: IOPAMIDOL-370 200ML BTL INJ ONE (12:19)
[2024-08-03] MEDS: IV FLUID CONTINUATION 1,000 ML IV ONE (12:20)
--- NOTE | 2024-08-03 12:46 | P.CARDCATH ---
Description of Procedure: PROCEDURES PERFORMED: Left heart catheterization, bilateral coronary angiography, ultrasound guided arterial access, IVUS LM to ramus INDICATION:non-STEMI, unstable angina CONSENT:I have discussed the risks, benefits and alternative therapies for the above-mentioned procedure and for both sedation/analgesia as well as necessary blood product administration, if indicated, as they pertain to this patient. The patient has indicated understanding and acceptance of the risks and procedures discussed. PROCEDURE: After the risks, benefits and alternatives of the above mentioned procedure explained in detail with the patient, informed consent was obtained. Patient was taken to the catheterization lab and prepped and draped in usual fashion. Ultrasound guidance was used to assess for arterial access. 1% lidocaine was used to anesthetize the right femoral artery. A 6-Irish sheath was placed in the right femoral artery using modified Seldinger technique and ultrasound guidance. Left coronary angiography was performed with a 6-Irish JL 4.0 catheter and right coronary angiography was performed with a 6-Irish FR4 catheter in various views. A 6-Irish FR4 catheter was inserted into the left ventricle and pressure measurements were obtained. the CRUZ cranial U did show continued significant 80% ostial circumflex disease with GREGG 3 flow. There is extreme angulation of approximately 120 at the takeoff of the circumflex with additional trifurcation left main. There was difficulty with previous attempts at passing any stents or significant balloons past this tortuosity with only ability to place a 6 mm length balloon. given additional concern of left main disease with eccentric lesion more identifiable on the cranial images, decision was made to perform intravascular ultrasound of the left main into ramus. A 6-Irish CLS 3.5 guide was disease a gauge left main. heparin was given. There was some dampening noted. A 0.014 BMW wire was advanced in the distal ramus.intravascular ultrasound was performed which showed eccentric left main 40% stenosis with minimal luminal area at the main trunk of 7.9mm2 however more calcifed distal left main extending into circumflex plaque with minimal luminal area of 6.1mm2. The plaque appeared to be adjecent to take off of ramus and LAD and concern of plaque shift with any intervention. Therefore procedure ended and assess CABG. The right radial sheath was removed and a TR band was placed with hemostasis achieved. The patient tolerated the procedure well. Patient was transported back to the post catheterization holding area in stable condition. Conscious Sedation: Patient was monitored under the direct supervision of myself for conscious sedation using Versed and fentanyl for a total duration of 33 minutes HEMODYNAMICS: Ao: 144/78 LV: 141/12 LVEDP 21 SELECTIVE CORONARY ARTERIOGRAPHY: LEFT MAIN: The left main is a large caliber vessel which trifurcates into the LAD, ramus and circumflex. There is diffuse 30-40% eccentric stenosis with more significant 40-50% distal left main calcified plaque. LEFT ANTERIOR DESCENDING CORONARY ARTERY: LAD is a large caliber vessel which wraps around to the apex. There is mild 20-30% proximal LAD stenosis. RAMUS INTERMEDIUS: The ramus is a small to moderate caliber vessel with patent proximal stent and mild luminal irregularities LEFT CIRCUMFLEX CORONARY ARTERY: Left circumflex is a moderate to large caliber vessel with an ostial 80% stenosis with extreme angulation 120 degrees takeoff of circumflex. The circumflex gives off the PDA and is the dominant vessel. RIGHT CORONARY ARTERY: The right coronary artery is a small caliber vessel which gives off an acute marginal branch and is non dominant with 40-50% stenosis. FINAL IMPRESSION: 1. CAD as described above with 40-50% left main stenosis, 20-30% LAD stenosis, patent ramus stent and 80% dominant circumflex stenosis ( best seen in CRUZ cranial veiws) 2. IVUS distal left main 6.1mm2 minimal luminal area 3. Elevated left sided filling pressures PLAN: 1. Aggressive risk factor modification per most recent ACC/AHA guidelines. 2. Patient with complex anatomy including trifurcation, severe angulation of take off of circumflex with 120 take off, severe calcification at the level of the distal left main into circumflex. Unable to previously advance any stents to the level of the circumflex with no real landing zone of the ostium of circumflex. Additionally intravascular ultrasound shows significant left main disease as well as calcified plaque. High risk of shifting plaque into LAD or circumflex or possible dissection with intervention of the circumflex. unclear if would be able to fit an 8-Irish guide into the left main for intervention. Given multiple risks with possible PCI, consider bypass evaluation. Additional consideration of medical therapy however has been having some unstable angina- type symptoms. The previous right to left collaterals have improved with balloon angioplasty
[2024-08-03] MEDS: MORPHINE SULFATE 4 MG/ML SYRINGE IVP PRN (13:31)
[2024-08-03 14:03] LABS: Chol/HDL Ratio 3.31 Ratio; LDL Cholesterol,Calculated 73.7 mg/dL (0.0-131.0); VLDL Calculation 14.18 mg/dL (5.00-40.00)
[2024-08-03 15:04] LABS: Glucose,Whole Blood 129 mg/dL (70-110)
[2024-08-03] MEDS: HYDROcodone/APAP 5-325MG 1 EACH TAB PO PRN (15:14)
--- NOTE | 2024-08-03 15:25 | P.GSCN ---
History of Present Illness Consult date: 08/03/24 Reason for Consult: Coronary artery disease Requesting physician: Jared Ogden History of present illness: This is a 49-year-old female with a previous medical history of coronary artery disease status post recent stent, hypertension, diet-controlled diabetes, bipolar disorder, previous tobacco cessation with recent cessation from vaping, and marijuana use. She was hospitalized 07/29/24 with unstable angina. She underwent heart catheterization 07/30/24 with drug-eluting stent placed to the ramus intermedius, there was notation that Dr. Ogden was unable to get a stent past the ostium of the circumflex which did have a 99% blockage. At that time she also had a transthoracic echocardiogram demonstrating normal left ventricular systolic function with EF 55 to 60%, mild mitral and tricuspid regurgitation. She was discharged to home on August 01, 2024 and was feeling good for about 24 hours when she developed pain under her left axilla which spread medially. This time she also endorsed shortness of breath, nausea, cold sweats, and significant anxiety. Of note she had been unable to fill her Tamara linta prescription at discharge. She presented back to the emergency room at [facility] 08/02/24. Lab work revealed troponin 0.045 with peak 0.054, BNP 291, hemoglobin 12.4, platelet count 89,000, creatinine 0.78, magnesium 1.7, AST 77, ALT 61. Chest x-ray revealed no acute cardiopulmonary process. She was admitted for evaluation and treatment and brought back to the catheterization laboratory today. Catheterization today revealed complex anatomy including trifurcation and severe angulation of takeoff of the circumflex with 120 degree takeoff, severe calcification at the level of the distal main into the circumflex coronary artery. IVUS demonstrated significant left main disease as well as calcified plaque. There was concern for high risk of shifting plaque into the LAD or circumflex or dissection with intervention of the circumflex, therefore consultation was placed to cardiothoracic surgery for revascularization recommendations. Review of Systems Review of systems was completed and was negative except as noted - Cardiovascular Reports as per HPI, Reports chest pain, Reports shortness of breath - Gastrointestinal Reports as per HPI, Reports nausea - Psychiatric Reports anxiety Past Medical History Past Medical History: Coronary Artery Disease (CAD), Diabetes Mellitus, Hypertension, Osteoarthritis (OA), Skin Disorder Additional Past Medical History / Comment(s): KIDNEY STONES, diet controlled diabetic-no longer needs med, no longer needs BP med, seasonal allergies, abscess right breast, left breast hx. of abscess, yeast in skin fold in abd. History of Any Multi-Drug Resistant Organisms: None Reported Past Surgical History: Appendectomy, Breast Surgery, Cholecystectomy, Heart Catheterization With Stent, Orthopedic Surgery, Tubal Ligation Additional Past Surgical History / Comment(s): carpal tunnel RIGHT WRIST, dental, abcess drainage left breast x2 (July 2016, March 2019, Aug 2019); RT breast I&D 05/22/21, 06/05/21; Left ankle surgery. Past Anesthesia/Blood Transfusion Reactions: No Reported Reaction, Family History of Problems w/ Anesthesia Additional Past Anesthesia/Blood Transfusion Reaction / Comm: No blood transfusion to date, mom stopped breathing during a surg. & had to be resuscitated Date of Last Stent Placement:: 07/30/24 Past Psychological History: Anxiety, Bipolar, Depression Smoking Status: Former smoker Past Alcohol Use History: None Reported Past Drug Use History: Marijuana Additional History: Quit smoking cigarettes 3 years ago, quit vaping prior to current admission - Past Family History Mother Family Medical History: Cancer Additional Family Medical History / Comment(s): CERVICAL CANCER Father Family Medical History: Unable to Obtain Additional Family Medical History / Comment(s): Patient did not know her father Medications and Allergies Home Medications Medication Instructions Recorded Confirmed Type Aspirin 81 mg PO DAILY tab 08/01/24 08/02/24 Rx Atorvastatin [Lipitor] 80 mg PO HS 30 Days #30 tab 08/01/24 08/02/24 Rx Metoprolol Tartrate [Lopressor] 25 mg PO BID 30 Days #60 tab 08/01/24 08/02/24 Rx Nitroglycerin Sl Tabs [Nitrostat] 0.4 mg SUBLINGUAL Q5M PRN 30 Days 08/01/24 08/02/24 Rx #20 tab Ticagrelor [Brilinta] 90 mg PO BID 30 Days #60 tab 08/01/24 08/02/24 Rx Allergies Allergy/AdvReac Type Severity Reaction Status Date / Time capsaicin Allergy Rash/Hives/ Verified 08/02/24 18:30 Swelling Surgical - Exam Vital Signs Temp Pulse Resp BP Pulse Ox 98.1 F 82 20 175/75 99 08/02/24 17:06 08/02/24 17:06 08/02/24 17:06 08/02/24 17:06 08/02/24 17:06 CONSTITUTIONAL: Awake and alert, appears comfortable, cooperative, well- developed, well-nourished, no pain, no acute distress EYES: Pupils equal, round, reactive to light, normal ocular movement ENT: Moist mucous membranes without oral lesions present, edentulous NECK: No masses, no bruits, trachea midline RESPIRATORY: Lungs sounds clear to auscultation bilaterally. Respirations even, nonlabored. Currently on room air with oxygen saturation 98%. Strong cough. No chest wall deformities. No clubbing or cyanosis present CARDIOVASCULAR: S1, S2 present. Regular rate and rhythm, sinus rhythm on telemetry. Palpable peripheral pulses bilaterally. No edema present. No calf pain or tenderness noted. No significant lower extremity varicosities noted GASTROINTESTINAL: Abdomen soft, nontender, nondistended without masses or organomegaly noted. There is no rebound or guarding present. Active bowel sounds present 4 quadrants. GENITOURINARY: Deferred INTEGUMENTARY: Skin is warm and dry with evidence of good perfusion. Right groin soft, nontender NEUROLOGIC: Cranial nerves II through XII intact, normal coordination, no obvious motor or sensory deficits, speech is normal MUSKULOSKELETAL: Able to move all extremities, strength equal bilaterally, normal posture PSYCHIATRIC: Alert and oriented to person place and time, appropriate affect, intact judgment and insight CLINICAL FRAILTY SCORE 3 Results - Labs 08/04/24 06:16 08/03/24 15:37 Abnormal Lab Results - Last 24 Hours (Table) 08/02/24 08/02/24 08/02/24 Range/Units 17:57 17:57 17:57 WBC 3.7 L (3.8-10.6) k/uL Plt Count 89 L (150-450) k/uL APTT (22.0-30.0) sec Glucose 162 H (74-99) mg/dL AST 77 H (14-36) U/L ALT 61 H (4-34) U/L Alkaline Phosphatase 154 H (38-126) U/L Troponin I 0.045 H* (0.000-0.034) ng/mL HDL Cholesterol (40.00-60.00) mg/dL 08/02/24 08/02/24 08/03/24 Range/Units 20:37 22:50 02:46 WBC (3.8-10.6) k/uL Plt Count 97 L (150-450) k/uL APTT (22.0-30.0) sec Glucose (74-99) mg/dL AST (14-36) U/L ALT (4-34) U/L Alkaline Phosphatase (38-126) U/L Troponin I 0.050 H* 0.054 H* (0.000-0.034) ng/mL HDL Cholesterol (40.00-60.00) mg/dL 08/03/24 08/03/24 08/03/24 Range/Units 02:46 04:43 06:25 WBC (3.8-10.6) k/uL Plt Count (150-450) k/uL APTT >200.0 H* 92.0 H (22.0-30.0) sec Glucose (74-99) mg/dL AST (14-36) U/L ALT (4-34) U/L Alkaline Phosphatase (38-126) U/L Troponin I (0.000-0.034) ng/mL HDL Cholesterol 38.10 L (40.00-60.00) mg/dL 08/03/24 Range/Units 07:52 WBC (3.8-10.6) k/uL Plt Count (150-450) k/uL APTT 61.0 H (22.0-30.0) sec Glucose (74-99) mg/dL AST (14-36) U/L ALT (4-34) U/L Alkaline Phosphatase (38-126) U/L Troponin I (0.000-0.034) ng/mL HDL Cholesterol (40.00-60.00) mg/dL Diabetes panel 08/02/24 08/03/24 Range/Units 17:57 02:46 Sodium 138 (137-145) mmol/L Potassium 4.0 (3.5-5.1) mmol/L Chloride 106 (98-107) mmol/L Carbon Dioxide 25 (22-30) mmol/L BUN 12 (7-17) mg/dL Creatinine 0.78 (0.52-1.04) mg/dL Glucose 162 H (74-99) mg/dL Calcium 9.0 (8.4-10.2) mg/dL AST 77 H (14-36) U/L ALT 61 H (4-34) U/L Alkaline Phosphatase 154 H (38-126) U/L Total Protein 7.0 (6.3-8.2) g/dL Albumin 3.9 (3.5-5.0) g/dL Triglycerides 70.90 (0.00-149.00) mg/dL HDL Cholesterol 38.10 L (40.00-60.00) mg/dL Calcium panel 08/02/24 Range/Units 17:57 Calcium 9.0 (8.4-10.2) mg/dL Albumin 3.9 (3.5-5.0) g/dL Pituitary panel 08/02/24 Range/Units 17:57 Sodium 138 (137-145) mmol/L Potassium 4.0 (3.5-5.1) mmol/L Chloride 106 (98-107) mmol/L Carbon Dioxide 25 (22-30) mmol/L BUN 12 (7-17) mg/dL Creatinine 0.78 (0.52-1.04) mg/dL Glucose 162 H (74-99) mg/dL Calcium 9.0 (8.4-10.2) mg/dL Adrenal panel 08/02/24 Range/Units 17:57 Sodium 138 (137-145) mmol/L Potassium 4.0 (3.5-5.1) mmol/L Chloride 106 (98-107) mmol/L Carbon Dioxide 25 (22-30) mmol/L BUN 12 (7-17) mg/dL Creatinine 0.78 (0.52-1.04) mg/dL Glucose 162 H (74-99) mg/dL Calcium 9.0 (8.4-10.2) mg/dL Total Bilirubin 1.3 (0.2-1.3) mg/dL AST 77 H (14-36) U/L ALT 61 H (4-34) U/L Alkaline Phosphatase 154 H (38-126) U/L Total Protein 7.0 (6.3-8.2) g/dL Albumin 3.9 (3.5-5.0) g/dL - Imaging Chest x-ray: image reviewed EKG: image reviewed Assessment and Plan Assessment: Coronary artery disease status post recent stent Chest pain secondary to above Preserved left ventricular systolic function, EF 55-60%, mild MR, TR Thrombocytopenia History of hypertension Diet-controlled diabetes Bipolar disorder Previous tobacco cessation with recent cessation from vaping Marijuana use Plan: The patient was seen and examined lying on a cart in the Extended Stay unit with present. Chart/diagnostics were reviewed. Will discuss with CV surgeon. The usual perioperative course of open-heart surgery was discussed in detail with the patient and her , risks and benefits were reviewed, all questions were answered. Preoperative testing initiated. Once completed we will calculate STS risk score and discuss with the patient. Continue to maximize medical therapy with aspirin, statin, beta-lopez. The patient did receive Brilinta this morning, would need to be off Brilinta for 7 days prior to any surgical intervention. Patient counseled regarding the need to continue with vaping cessation, also counseled to avoid smoking marijuana. Medical management of other comorbidities per internal medicine, cardiology. More recommendations to follow. Thank you Dr. Ogden for this consult. We look forward to working with you in the care of this patient and will make further recommendations as appropriate. I have personally seen and examined the patient, performed the documentation and the assessment and plan as written. Number of minutes spent on the visit: 30. MONA Lim The patient was seen and examined and her chart/diagnostics were reviewed in great detail, I agree with the assessment and plan as documented by the nurse practitioner. Our plan is for coronary artery bypass surgery on Friday, August 09, [address] Ortiz. Please continue to hold Brilinta. Number of minutes spent on the visit: 40. Souleymane Lan MD
[2024-08-03 15:54] LABS: HCT 31.8 % (34.0-46.0); HGB 10.7 gm/dL (11.4-16.0); MCH 30.7 pg (25.0-35.0); MCHC 33.6 g/dL (31.0-37.0); MCV 91.3 fL (80.0-100.0); Mean Platelet Volume 9.6; Platelet Count 108 k/uL (150-450); RBC 3.48 m/uL (3.80-5.40); RDW 14.1 % (11.5-15.5); WBC 5.6 k/uL (3.8-10.6)
[2024-08-03 16:16] LABS: ALT 52 U/L (4-34); AST 71 U/L (14-36); African American GFR (CKD) >90 (>60 ml/min/1.73 sqM); Albumin 3.1 g/dL (3.5-5.0); Alkaline Phosphatase 118 U/L (38-126); Anion Gap 2 mmol/L; Blood Urea Nitrogen 11 mg/dL (7-17); Calcium 8.2 mg/dL (8.4-10.2); Carbon Dioxide 25 mmol/L (22-30); Chloride 110 mmol/L (98-107); Glucose 139 mg/dL (74-99); Magnesium 1.9 mg/dL (1.6-2.3); Non-African American GFR(CKD) 90 (>60 ml/min/1.73 sqM); Potassium 4.4 mmol/L (3.5-5.1); Sodium 137 mmol/L (137-145); Total Bilirubin 1.6 mg/dL (0.2-1.3)
[2024-08-03 16:33] LABS: Glucose,Whole Blood 177 mg/dL (70-110)
--- NOTE | 2024-08-03 17:18 | US ---
EXAMINATION TYPE: US carotid duplex BILAT DATE OF EXAM: 08/03/2024 COMPARISON: NONE CLINICAL INDICATION: Female, 49 years old with history of preop cardiac surgery; TECHNIQUE: Carotid duplex ultrasound examination. Indirect Doppler criteria was utilized. FINDINGS: EXAM MEASUREMENTS: RIGHT: Peak Systolic Velocity (PSV) cm/sec ----- Right CCA: 189 ----- Right ICA: 124 ----- Right ECA: 136 ICA/CCA ratio: 0.7 RIGHT: End Diastole cm/sec ----- Right CCA: 33 ----- Right ICA: 35 ----- Right ECA: 19 LEFT: Peak Systolic Velocity (PSV) cm/sec ----- Left CCA: 11 ----- Left ICA: 258 ----- Left ECA: 201 ICA/CCA ratio: 2.3 LEFT: End Diastole cm/sec ----- Left CCA: 31 ----- Left ICA: 36 ----- Left ECA: 19 VERTEBRALS (direction of flow): Right Vertebral: Antegrade Left Vertebral: Antegrade Rhythm: Normal ENERGY TRADING ANALYST NOTES: Intimal thickening, plaque, and elevated velocities seen IMPRESSION: 1. Greater than 70% stenosis of the left carotid bifurcation by peak systolic velocity 2. Less than 50% stenosis of the right carotid bifurcation. Criteria for Assigning % of Stenosis / Diameter reduction (Estimation based on the indirect measurements of the internal carotid artery velocities (ICA PSV). 1. Normal (no stenosis)=ICA PSV < 125 cm/s: ratio < 2.0: ICA EDV<40 cm/s. 2. Less than 50% stenosis=ICA PSV < 125 cm/s: ratio < 2.0: ICA EDV<40 cm/s. 3. 50 to 69% stenosis=ICA PSV of 125 to 230 cm/s: ration 2.0 ? 4.0: ICA EDV 40-100 cm/s. 4. Greater than 70% stenosis to near occlusion= ICA PSV > 230 cm/s: ratio > 4.0: ICA EDV > 100 cm/s. 5. Near occlusion= ICA PSV velocities may be low or undetectable: variable ratio and ICA EDV. 6. Total occlusion=unable to detect flow.
--- NOTE | 2024-08-03 17:18 | US ---
EXAMINATION TYPE: Pre-Operative Non-Invasive Evaluation of the hand for Potential Radial Artery Elizabeth , Measurements only DATE OF EXAM: 08/03/2024 5:00 PM CLINICAL INDICATION: Female, 49 years old with history of measurements only; SIDE PERFORMED: TECHNIQUE: Radial artery is measured utilizing real time linear array sonography. Dominant hand: Right Duplex Findings: Radial Artery: Color flow seen Measurements in mm, transverse view: Left Radial: 2.5 mm Proximal: 1.6 x 1.9 mm Mid: 2.0 x 2.1 mm Distal: 1.5 x 1.6 mm IMPRESSION: 1. Right Radial artery measurements listed above. 2. Performing surgeon to determine viability as conduit.
--- NOTE | 2024-08-03 17:19 | US ---
EXAMINATION TYPE: US vein mapping BIL DATE OF EXAM: 08/03/2024 5:00 PM COMPARISON: NONE CLINICAL INDICATION: Female, 49 years old with history of preop cardiac surgery; SIDE PERFORMED: Bilateral TECHNIQUE: Lower extremity saphenous vein is examined and measured utilizing real time linear array sonography. Patient History: Smoker: Yes Heart Disease: Yes Previous DVT: No Vascular Surgery: Yes Discoloration: No Hypertension: No Diabetes: No Paralysis: No Varicosities: No Edema: Yes DUPLEX FINDINGS: Greater Saphenous: Color flow seen Lesser Saphenous: Color flow seen Measurements in mm: Right Greater Saphenous: Groin: Unable to assess due to recent surgery mm High Thigh: 3.9 x 4.5 mm Mid Thigh: 3.7 x 4.3 mm Above Knee: 4.4 x 3.4 mm Knee: 3.3 x 3.3 mm Below Knee: 1.8 x 2.0 mm Mid Calf: 1.9 x 2.1 mm At Ankle: 1.5 x 2.0 mm Right Lesser Saphenous: Knee: 2.9 x 3.2 mm Unable to follow Left Greater Saphenous: Groin: 3.9 x 8.2 mm High Thigh: 3.5 x 5.2 mm Mid Thigh: 2.9 x 2.9 mm Above Knee: 2.6 x 3.8 mm Knee: 2.1 x 3.6 mm Below Knee: 1.7 x 2.3 mm Mid Calf: 1.4 x 1.8 mm At Ankle: 1.3 x 1.7 mm Left Lesser Saphenous: Unable to identify IMPRESSION: 1. Bilateral GSV measurements listed above. 2. Performing surgeon to determine viability as conduit.
[2024-08-03 19:51] LABS: Glucose,Whole Blood 161 mg/dL (70-110)
[2024-08-04] MEDS: ONDANSETRON 4 MG/2 ML VIAL IVP PRN (02:01)
[2024-08-04 05:32] LABS: Hepatitis A Antibody IgM Nonreactive (Nonreactive); Hepatitis B Core IgM Nonreactive (Nonreactive); Hepatitis B Surface Antigen Nonreactive (Nonreactive); Hepatitis C IgG Antibody Nonreactive (Nonreactive)
[2024-08-04 06:21] LABS: Glucose,Whole Blood 223 mg/dL (70-110)
[2024-08-04] MEDS ORDERED: HEPARIN SODIUM,PORCINE 10,000 UNIT in SODIUM CHLORIDE 0.9% 1,000 ML IRRIGATION PRN (07:00)
[2024-08-04] MEDS ORDERED: HEPARIN SODIUM,PORCINE (1 ML) 2,500 UNIT in SODIUM CHLORIDE 0.9% 250 ML IRRIGATION PRN (07:00)
[2024-08-04 07:03] LABS: Mean Platelet Volume 10.8; Platelet Count 104 k/uL (150-450)
--- NOTE | 2024-08-04 08:35 | P.PN ---
Subjective Progress Note Date: 08/04/24 Principal diagnosis: Coronary artery disease status post recent stentto her ramus coronary artery, currently on Brilinta, elevated serial troponins on admission, troponin 0.045 with peak 0.054. Past medical history significant for hypertension, diet- controlled diabetes with a hemoglobin A1c of 5.8%, bipolar disorder, previous tobacco cessation with recent cessation from vaping, history of EtOH abuse, elevated transaminase enzymes and marijuana use. The patient was seen and examined in follow-up today August 04, 2024 at her bedside on the third floor cardiac stepdown unit. She is currently sitting up in her bed eating her breakfast, is awake, alert, oriented x 3 and is in no acute apparent distress. She denies any complaints of shortness of breath at this time, although reports that she had an episode of heartburn this morning and nausea which was relieved by some Zofran. The patient reports that she is bipolar and treats her bipolar disorder with smoking and doing edible marijuana. The patient also reports that she was a heavy drinker, until about 3 to 5 years ago and does have chronically elevated liver enzymes. She remains hemodynamically stable and is currently on no inotropic or pressor support. Oxygen saturations are 98% on room air and she is achieving 1500 mL on her incentive spirometry. A bedside FEV1 was completed yesterday August 03, 2024 which showed a predicted value of 85%. A carotid duplex study was completed which showed a greater then 70% stenosis of the left carotid bifurcation and a less than 50% stenosis of the right carotid bifurcation. Remote telemetry is showing normal sinus rhythm heart rate [address] of the chest without contrast is pending. Objective - Vital Signs Vital signs: Vital Signs Temp 97.7 F 08/03/24 19:39 Pulse 66 08/04/24 04:00 Resp 16 08/04/24 04:00 BP 127/77 08/04/24 04:00 Pulse Ox 98 08/04/24 04:00 FiO2 Intake & Output 08/03/24 08/04/24 08/04/24 18:59 06:59 18:59 Intake Total 319.767 360 Balance 319.767 360 Weight 104.8 kg Intake: IV 75 Intake, IV Titration 4.767 Amount Heparin Sod,Pork in 0.45% 4.767 NaCl 25,000 unit In 0.45 % NaCl 1 250ml.bag @ 10.4 UNITS/KG/HR 10.048 mls/ hr IV .Q24H [facility] Rx#: [id number] Oral 240 360 - Exam CONSTITUTIONAL: Sitting up in bed, appears comfortable, cooperative, no apparent acute distress. HEENT: Neck is supple, no JVD, no lymphadenopathy. RESPIRATORY: Lungs sounds essentially clear throughout, diminished to his bilateral bases. Respirations are symmetrical and nonlabored. Currently on room air with oxygen saturations 98%. Able to achieve 1500 mL on her incentive spirometry. Strong cough. CARDIOVASCULAR: Regular rhythm and rate. S1 and S2 present, negative for S3, or gallop. Systolic murmur present. Remote telemetry showing normal sinus rhythm heart rate 71 bpm. Palpable peripheral pulses bilaterally. No calf pain or tenderness noted. GASTROINTESTINAL: Abdomen soft, nontender, nondistended. Active bowel sounds present 4 quadrants. Obese. Tolerating diet. Passing flatus. No guarding or rigidity. GENITOURINARY: Continues to void. INTEGUMENTARY: Skin is warm and dry with no evidence of clubbing or cyanosis. Ecchymosis to her right forearm, soft and nontender. NEUROLOGIC: Cranial nerves II through XII intact. No focal deficits. MUSKULOSKELETAL: Able to move all extremities, strength equal bilaterally. PSYCHIATRIC: Alert and oriented to person place and time, appropriate affect, intact judgment and insight. - Allied health notes Allied health notes reviewed: nursing - Labs CBC & Chem 7: 08/04/24 06:16 08/03/24 15:37 Labs: Abnormal Lab Results - Last 24 Hours (Table) 08/03/24 08/03/24 08/03/24 Range/Units 02:46 07:52 15:02 RBC (3.80-5.40) m/uL Hgb (11.4-16.0) gm/dL Hct (34.0-46.0) % Plt Count (150-450) k/uL APTT 61.0 H (22.0-30.0) sec Chloride (98-107) mmol/L Glucose (74-99) mg/dL POC Glucose (mg/dL) 129 H (70-110) mg/dL Calcium (8.4-10.2) mg/dL Total Bilirubin (0.2-1.3) mg/dL AST (14-36) U/L ALT (4-34) U/L Total Protein (6.3-8.2) g/dL Albumin (3.5-5.0) g/dL HDL Cholesterol 38.10 L (40.00-60.00) mg/dL 08/03/24 08/03/24 08/03/24 Range/Units 15:37 15:37 16:32 RBC 3.48 L (3.80-5.40) m/uL Hgb 10.7 L (11.4-16.0) gm/dL Hct 31.8 L (34.0-46.0) % Plt Count 108 L (150-450) k/uL APTT (22.0-30.0) sec Chloride 110 H (98-107) mmol/L Glucose 139 H (74-99) mg/dL POC Glucose (mg/dL) 177 H (70-110) mg/dL Calcium 8.2 L (8.4-10.2) mg/dL Total Bilirubin 1.6 H (0.2-1.3) mg/dL AST 71 H (14-36) U/L ALT 52 H (4-34) U/L Total Protein 6.0 L (6.3-8.2) g/dL Albumin 3.1 L (3.5-5.0) g/dL HDL Cholesterol (40.00-60.00) mg/dL 08/03/24 08/04/24 08/04/24 Range/Units 19:50 06:16 06:19 RBC (3.80-5.40) m/uL Hgb (11.4-16.0) gm/dL Hct (34.0-46.0) % Plt Count 104 L (150-450) k/uL APTT (22.0-30.0) sec Chloride (98-107) mmol/L Glucose (74-99) mg/dL POC Glucose (mg/dL) 161 H 223 H (70-110) mg/dL Calcium (8.4-10.2) mg/dL Total Bilirubin (0.2-1.3) mg/dL AST (14-36) U/L ALT (4-34) U/L Total Protein (6.3-8.2) g/dL Albumin (3.5-5.0) g/dL HDL Cholesterol (40.00-60.00) mg/dL - Imaging and Cardiology Carotid duplex study results reviewed, FEV1 results reviewed. Assessment and Plan Assessment: Coronary artery disease status post recent stent Chest pain secondary to above Preserved left ventricular systolic function, EF 55-60%, mild mitral valve regurgitation, tricuspid valve regurgitation Thrombocytopenia, platelet count today 104 Left ICA carotid stenosis greater than 70% and right ICA carotid stenosis less than 50% History of hypertension Diet-controlled diabetes, hemoglobin A1c 5.8% Bipolar disorder, history of suicidal ideation Previous tobacco cessation with recent cessation from vaping, FEV1 85% of predicted value Marijuana use History of EtOH abuse Chronic transaminitis, AST 71, ALT 52 Plan: Preoperative testing and preoperative teaching in progress. The importance of risk modification including smoking marijuana and vaping ce ssation reviewed with the patient. Discussed the importance with the patient of following medical recommendations with taking medicines. CT scan of the chest without contrast is pending. A 5 m walk test was completed with the patient, time 1: 4.21 Seconds, time 2: 4.36 Seconds, and time 3: 4.22 Seconds. A clinical frailty score was calculated with the patient, with a score showing 3. Once the patient's preoperative testing results have been obtained and STS risk or will be calculated and discussed with the patient. Medical management and other comorbidities per primary care and cardiology serv ice. More recommendations to follow based on patient's clinical course. Time with Patient: Greater than 30
--- NOTE | 2024-08-04 09:18 | CT ---
EXAMINATION TYPE: CT chest wo con DATE OF EXAM: 08/04/2024 COMPARISON: None HISTORY: Eval aorta for clampability CT DLP: 471.5 mGycm. Automated Exposure Control for Dose Reduction was Utilized. TECHNIQUE: CT scan of the thorax is performed without IV contrast. FINDINGS: LUNGS: The lungs are grossly clear, there is no concerning parenchymal mass or nodule identified. T here is no pleural effusion or pneumothorax seen. The tracheobronchial tree is patent. MEDIASTINUM: Lack of IV contrast is noted to limit evaluation for mediastinal and especially hilar ad enopathy. There are no definitive greater than 1 cm hilar or mediastinal lymph nodes. No cardiomega ly and there is a trace of pericardial effusion is seen. X There is extensive dense coronary artery calcification. Calcification in the aortic valve and mild at herosclerotic change of the thoracic aorta which is of normal caliber. OTHER: Degenerative changes of the spine.. Spleen is mildly enlarged 13 cm. 1 cm indeterminate spleni c lesion. There is right renal calculus partially included in view. Postcholecystectomy changes. Nodu lar pattern to the liver with low attenuation suggest underlying hepatocellular disease. Small hiatal hernia with distal soft tissue wall thickening can be associated reflux esophagitis. IMPRESSION: 1. Thoracic aorta of normal caliber with mild atherosclerotic change and no evidence of aneurysm. 2. Extensive dense coronary artery calcification with calcification near the aortic valve. 3. Correlate for underlying hepatocellular disease with borderline to mild splenomegaly. Indeterminat e 1 cm splenic lesion. Consider follow-up ultrasound. 4. Nephrolithiasis. Follow-up recommendations for incidental pulmonary nodules are per [employer] [place] or [employer].
[2024-08-04] MEDS: EZETIMIBE 10 MG TAB PO SCH (10:10)
[2024-08-04 11:55] LABS: Glucose,Whole Blood 104 mg/dL (70-110)
--- NOTE | 2024-08-04 11:55 | CA ---
Exercise Stress Test Report Name: Yovana Ramos Exam Date: 08/04/2024 11:13 Exam Location: [place] Stress Ht (in): 63 Wt (lb): 213 BSA: 1.99 Ordering Phys: Lisa Lewis Referring Phys: SOM,, Technologist: MELANI,, Age: 49 Gender: F : 1975 Procedure CPT: Indications: assess for chest pain ICD-10 Codes: Patient History: Chest pain, palpitations, hypertension and history of stent x 2. Medications: Meds past 24 hrs: Pretest Chest Pain: STRESS TEST Modified Parth Protocol Exercise Duration (min:sec): 01:[address] Depressions (mm): Angina Score: Cruz Score: Resting HR (bpm): 64 Peak HR (bpm): 94 Resting BP (mmHg): 123 / 52 Peak BP (mmHg): 152 / 69 MPHR: 172 Target HR: 146 % MPHR: 55 METS: 2.4 Total Dose: Peak Dose: Atropine: Double Product: 53839 BP Response: Stress Termination: MAX EXERTION Stress Symptoms: HEAVINESS Stress Summary: ECG ANALYSIS Resting ECG: Stress ECG: CONCLUSIONS Patient walked on a modified Parth protocol for a total duration of 1-1/2-minute and maximal heart rate was 94 bpm which is 55% of predicted maximal. Complained of some heaviness in the chest. EKG did not reveal any ischemic changes. This is a technically inconclusive stress test. Dr. Demetrius Clemons MD (Electronically Signed) Final Date: 04 August 2024 11:54
--- NOTE | 2024-08-04 12:24 | P.PN ---
Subjective HISTORY OF PRESENT ILLNESS: This is a 49-year-old female with a past medical history significant for coronary artery disease, diabetes, hypertension, anxiety, bipolar disorder, and depression. Patient follows in the office with Dr. Ogden. We have been asked to see the patient in consultation for non-STEMI. Patient examined at the bedside in the emergency room. Patient was recently admitted for chest pain and underwent stress echocardiogram which came in to be abnormal. She underwent cardiac catheterization with Dr. Ogden on July 30, 2024 revealing 20 to 30% distal left main stenosis, LAD 20 to 30% stenosis, ramus 90% stenosis, ostial circumflex 99% stenosis. She underwent PCI of the ramus and also PTCA of the circumflex with inability to get a stent past the heavily calcified ostial circumflex angulation. Patient was discharged home in stable condition on Thursday, August 01, 2024. The patient states she was feeling well at home. She states that yesterday she began to have pain in her right arm that radiated up into her arm. She also reports that she developed chest pain that went into her left arm, underneath her armpit, and her left shoulder blade. She decided to come to the emergency room for further evaluation. The patient does report having another episode of chest pain while in the ER around 2 AM. She received nitro at that time which relieved her pain. She denies having any episodes of chest pain since that time. The patient does report she was unable to get her prescriptions for her Brilinta on Friday when she was discharged. She states that she spoke with one of Dr. Zhang partners on the day of discharge who apparently told her it was okay to miss a day. Her last dose of Brilinta was Friday morning. DIAGNOSTICS: - EKG reveals sinus mechanism with nonspecific ST-T wave changes - Chest xray negative for acute process - Laboratory data: Troponin 0.045. 0.050. 0.054. - Current home cardiac medications include aspirin 81 mg daily, Lipitor 80 mg at night, metoprolol tartrate 25 mg twice a day, Brilinta 90 mg twice a day. - Most recent echocardiogram obtained in July 2024 revealed ejection fraction 55 to 60% with mild MR, mild TR 08/04/2024 Patient is s/p cardiac catheterization with Dr. Ogden revealing 40 to 50% left main stenosis, 20-30% LAD stenosis, patent ramus stent and 80% dominant circumflex stenosis. CT surgery was consulted due to patients multiple risk for PCI (see cath report). Patient examined this morning the bedside. Patient currently denies chest pain or pressure. She denies shortness of breath. Vital signs are stable. PHYSICAL EXAM: VITAL SIGNS: Reviewed. GENERAL: Well-developed in no acute distress. HEENT: Head is normocephalic. Pupils are equal, round. Sclerae anicteric. Mucous membranes of the mouth are moist. Neck supple. No JVD or thyromegaly LUNGS: Respirations even and unlabored. Lungs essentially clear to auscultation bilaterally. HEART: Regular rate and rhythm. S1 and S2 heard. ABDOMEN: Soft. Nondistended. Nontender. EXTREMITIES: Normal range of motion. No clubbing or cyanosis. Peripheral pulses intact. No lower extremity edema. Right upper extremity with bruising noted. NEUROLOGIC: Awake and alert. Oriented x 3. ASSESSMENT: Chest pain Elevated troponins, flat, acute coronary event ruled out, likely secondary to r ecent cardiac catheterization Coronary artery disease, status post PCI of the ramus and also PTCA of the circumflex with inability to get a stent past the heavily calcified ostial circumflex angulation, July 30, 2024 Hypertension, not requiring medications for patient Diabetes, diet controlled per patient Anxiety Bipolar disorder Depression Obesity: BMI 37.7 Former nicotine dependence PLAN: Continue current cardiac medications CT surgery following Patient to undergo low level stress test this morning to assess for exercise induced angina Further recommendations pending patient course Nurse practitioner note has been reviewed by physician. Signing provider agrees with the documented findings, assessment, and plan of care documented by [employer] as a scribe. Objective - Vital Signs Vital signs: Vital Signs Temp 98.2 F 08/04/24 08:02 Pulse 70 08/04/24 08:02 Resp 16 08/04/24 08:02 BP 108/67 08/04/24 08:02 Pulse Ox 96 08/04/24 08:02 FiO2 Intake & Output 08/03/24 08/04/24 08/04/24 18:59 06:59 18:59 Intake Total 319.767 360 236 Balance 319.767 360 236 Weight 104.8 kg Intake: IV 75 Intake, IV Titration 4.767 Amount Heparin Sod,Pork in 0.45% 4.767 NaCl 25,000 unit In 0.45 % NaCl 1 250ml.bag @ 10.4 UNITS/KG/HR 10.048 mls/ hr IV .Q24H ON LICENSE OF [facility] Rx#: [id number] Oral 240 360 236 Other: Voiding Method Toilet - Labs CBC & Chem 7: 08/04/24 06:16 08/03/24 15:37 Labs: Abnormal Lab Results - Last 24 Hours (Table) 08/03/24 08/03/24 08/03/24 Range/Units 02:46 15:02 15:37 RBC 3.48 L (3.80-5.40) m/uL Hgb 10.7 L (11.4-16.0) gm/dL Hct 31.8 L (34.0-46.0) % Plt Count 108 L (150-450) k/uL Chloride (98-107) mmol/L Glucose (74-99) mg/dL POC Glucose (mg/dL) 129 H (70-110) mg/dL Calcium (8.4-10.2) mg/dL Total Bilirubin (0.2-1.3) mg/dL AST (14-36) U/L ALT (4-34) U/L Total Protein (6.3-8.2) g/dL Albumin (3.5-5.0) g/dL HDL Cholesterol 38.10 L (40.00-60.00) mg/dL 08/03/24 08/03/24 08/03/24 Range/Units 15:37 16:32 19:50 RBC (3.80-5.40) m/uL Hgb (11.4-16.0) gm/dL Hct (34.0-46.0) % Plt Count (150-450) k/uL Chloride 110 H (98-107) mmol/L Glucose 139 H (74-99) mg/dL POC Glucose (mg/dL) 177 H 161 H (70-110) mg/dL Calcium 8.2 L (8.4-10.2) mg/dL Total Bilirubin 1.6 H (0.2-1.3) mg/dL AST 71 H (14-36) U/L ALT 52 H (4-34) U/L Total Protein 6.0 L (6.3-8.2) g/dL Albumin 3.1 L (3.5-5.0) g/dL HDL Cholesterol (40.00-60.00) mg/dL 08/04/24 08/04/24 Range/Units 06:16 06:19 RBC (3.80-5.40) m/uL Hgb (11.4-16.0) gm/dL Hct (34.0-46.0) % Plt Count 104 L (150-450) k/uL Chloride (98-107) mmol/L Glucose (74-99) mg/dL POC Glucose (mg/dL) 223 H (70-110) mg/dL Calcium (8.4-10.2) mg/dL Total Bilirubin (0.2-1.3) mg/dL AST (14-36) U/L ALT (4-34) U/L Total Protein (6.3-8.2) g/dL Albumin (3.5-5.0) g/dL HDL Cholesterol (40.00-60.00) mg/dL
[2024-08-04 16:11] LABS: Glucose,Whole Blood 178 mg/dL (70-110)
[2024-08-04] MEDS: METOPROLOL TARTRATE 50 MG TAB PO SCH (19:55)
[2024-08-04 20:04] LABS: Glucose,Whole Blood 131 mg/dL (70-110)
[2024-08-04] MEDS: ALPRAZolam 0.5 MG TAB PO PRN (21:20)
[2024-08-04] MEDS: MUPIROCIN 2% OINT 22 GM TUBE NASAL SCH (21:20)
--- NOTE | 2024-08-05 05:23 | P.PN ---
Subjective Progress Note Date: 08/04/24 This is a pleasant 49 years old female who was recently discharged from the hospital on 08/01 after she had cardiac cath. Patient presents because of chest pain thought secondary to unstable angina with negative troponins. She underwent left heart catheterization 07/30/2024 showing CAD i with 20-30% distal left main stenosis, LAD 20-30% stenosis, ramus 90% stenosis, ostial circumflex 99% stenosis, status post PCI of the ramus, status post PTCA circumflex. She was started on aspirin and Brilinta. After discharge patient could not fill up her prescription because it was a long weekend holiday for . She presents this time because of chest pain that lasted about 15 minutes. Patient currently denies chest pain no dyspnea. No coughing No other /GI symptoms. Earlier she had nausea which is resolved now. No abdominal pain vomiting diarrhea. No headache dizziness weakness or numbness She smokes cigarettes and states she quit smoking today without specification. Nicotine patch offered but she declines. She drinks alcohol occasionally. No illicit drugs. Her lead generation representative is Dr. Ogden that she intends to follow-up in 1 week. She states she has no PCP but she intends to find 1. Hemodynamically stable Labs showing WBC 3.7 and platelet count 9.7. Liver enzymes mildly elevated. Troponin are elevated 0.4 and 0.5 and 0.5 D-dimer negative at 0.55 proBNP is 291 Amylase lipase negative Chest x-ray is negative for acute process EKG showing sinus bradycardia at [address]-T changes Upper extremity duplex of the forearm was negative. 08/04/2024 Patient is seen and evaluated in follow-up today currently undergoing stress test with cardiology following. Patient continues to report chest pain and chest discomfort with shortness of breath with exertion. Patient being followed by cardiothoracic surgery undergoing workup for possible CABG. CT chest is ordered and pending as well. Patient is afebrile with no worsening shortness of breath or palpitations noted. Patient denies nausea or vomiting and was currently n.p.o. for the stress test this morning. Review of systems: Constitutional: No reports of fatigue, fever, or chills Cardiovascular: reports of continued chest pain, denies palpitations Respiratory: No reports of shortness of breath or cough other than with exertion GI: No reports of nausea, vomiting, or diarrhea : No reports of dysuria or retention Neurovascular: No reports of weakness or numbness All medications have been reviewed Physical exam: GENERAL: The patient is alert and oriented x3, not in any acute distress. Well developed, well nourished. Obese HEENT: Pupils are round and equally reacting to light. EOMI. No scleral icterus. No conjunctival pallor. Normocephalic, atraumatic. No pharyngeal erythema. No thyromegaly. CARDIOVASCULAR: S1 and S2 present. No murmurs, rubs, or gallops. PULMONARY: Chest is clear to auscultation, no wheezing , no crackles. ABDOMEN: Soft, nontender, nondistended, normoactive bowel sounds. No palpable organomegaly. MUSCULOSKELETAL: No joint swelling or deformity. EXTREMITIES: No cyanosis, clubbing, or pedal edema. Ecchymosis of the right forearm on the medial side. NEUROLOGICAL: Gross neurological examination did not reveal any focal deficits. SKIN: No rashes. no petechiae. Assessment: Chest pain with mildly elevated troponin and review of recent stent placement to ramus branch and PTCA circumflex. Related to her unstable angina. Currently awaiting a stress test and undergoing further workup for possible triple-vessel disease with CT surgery. Stress test is scheduled today as well as CT chest. Nonadherence to therapy because it was holiday and she could not follow-up her prescription from the pharmacy Mild transaminitis Mild bicytopenia with leukopenia and thrombocytopenia Hypertension Diabetes Morbid obesity with a BMI of 41.1 Nicotine dependence with vaping Osteoarthritis History of kidney stones GI prophylaxis DVT prophylaxis Full code Plan: Continue with cardiology and CT surgery on consult. Patient underwent repeat cardiac catheterization and given her high risk factors and continued chest pain CT surgery consulted and undergoing possible triple-vessel disease intervention. Currently undergoing a stress test today and CT chest which is pending Follow-up on repeat labs and replace electrolytes per protocol Provide resources for outpatient follow-up to establish with a primary care provider Continue to encourage complete smoking and vaping cessation Will discuss further with CT surgery and cardiology regarding treatment plan moving forward The impression and plan of care has been dictated by Jessica Rendon, Nurse Practitioner as directed. Dr. Heriberto MD I have performed a history and examination and MDM of this patient, discussed the same with the dictator, and agree with the dictator's assessment and plan as written ,documented as a scribe. Based on total visit time, I have performed more than 50% of the visit. Currently undergoing stress test with cardiology following. Objective - Vital Signs Vital signs: Vital Signs Temp 98.2 F 08/04/24 08:02 Pulse 70 08/04/24 08:02 Resp 16 08/04/24 08:02 BP 108/67 08/04/24 08:02 Pulse Ox 96 08/04/24 08:02 FiO2 Intake & Output 08/03/24 08/04/24 08/04/24 18:59 06:59 18:59 Intake Total 319.767 360 236 Balance 319.767 360 236 Weight 104.8 kg Intake: IV 75 Intake, IV Titration 4.767 Amount Heparin Sod,Pork in 0.45% 4.767 NaCl 25,000 unit In 0.45 % NaCl 1 250ml.bag @ 10.4 UNITS/KG/HR 10.048 mls/ hr IV .Q24H [facility] Rx#: [id number] Oral 240 360 236 Other: Voiding Method Toilet - Labs CBC & Chem 7: 08/04/24 06:16 08/03/24 15:37 Labs: Abnormal Lab Results - Last 24 Hours (Table) 08/03/24 08/03/24 08/03/24 Range/Units 02:46 15:02 15:37 RBC 3.48 L (3.80-5.40) m/uL Hgb 10.7 L (11.4-16.0) gm/dL Hct 31.8 L (34.0-46.0) % Plt Count 108 L (150-450) k/uL Chloride (98-107) mmol/L Glucose (74-99) mg/dL POC Glucose (mg/dL) 129 H (70-110) mg/dL Calcium (8.4-10.2) mg/dL Total Bilirubin (0.2-1.3) mg/dL AST (14-36) U/L ALT (4-34) U/L Total Protein (6.3-8.2) g/dL Albumin (3.5-5.0) g/dL HDL Cholesterol 38.10 L (40.00-60.00) mg/dL 08/03/24 08/03/24 08/03/24 Range/Units 15:37 16:32 19:50 RBC (3.80-5.40) m/uL Hgb (11.4-16.0) gm/dL Hct (34.0-46.0) % Plt Count (150-450) k/uL Chloride 110 H (98-107) mmol/L Glucose 139 H (74-99) mg/dL POC Glucose (mg/dL) 177 H 161 H (70-110) mg/dL Calcium 8.2 L (8.4-10.2) mg/dL Total Bilirubin 1.6 H (0.2-1.3) mg/dL AST 71 H (14-36) U/L ALT 52 H (4-34) U/L Total Protein 6.0 L (6.3-8.2) g/dL Albumin 3.1 L (3.5-5.0) g/dL HDL Cholesterol (40.00-60.00) mg/dL 08/04/24 08/04/24 Range/Units 06:16 06:19 RBC (3.80-5.40) m/uL Hgb (11.4-16.0) gm/dL Hct (34.0-46.0) % Plt Count 104 L (150-450) k/uL Chloride (98-107) mmol/L Glucose (74-99) mg/dL POC Glucose (mg/dL) 223 H (70-110) mg/dL Calcium (8.4-10.2) mg/dL Total Bilirubin (0.2-1.3) mg/dL AST (14-36) U/L ALT (4-34) U/L Total Protein (6.3-8.2) g/dL Albumin (3.5-5.0) g/dL HDL Cholesterol (40.00-60.00) mg/dL
[2024-08-05 06:01] LABS: Glucose,Whole Blood 131 mg/dL (70-110)
[2024-08-05] MEDS ORDERED: MD COMMUNICATION TO PHARMACY 1 EACH MISC PO ONE ×4 (07:01→07:02)
[2024-08-05 07:36] LABS: Basophils % (A) 0 %; Eosinophils # (A) 0.3 k/uL (0-0.7); Eosinophils % (A) 6 %; HCT 29.2 % (34.0-46.0); HGB 9.9 gm/dL (11.4-16.0); Lymphocytes # (A) 1.5 k/uL (1.0-4.8); Lymphocytes % (A) 31 %; MCH 30.5 pg (25.0-35.0); MCHC 33.8 g/dL (31.0-37.0); MCV 90.1 fL (80.0-100.0); Monocytes # (A) 0.4 k/uL (0-1.0); Monocytes % (A) 8 %; Neutrophils # (A) 2.6 k/uL (1.3-7.7); Neutrophils % (A) 53 %; Platelet Count 101 k/uL (150-450); RBC 3.24 m/uL (3.80-5.40); RDW 14.7 % (11.5-15.5)
[2024-08-05 07:40] LABS: INR 1.2 (<1.2); Partial Thromboplastin Time 26.8 sec (22.0-30.0); Prothrombin Time 12.4 sec (10.0-12.5)
[2024-08-05 07:47] LABS: ALT 45 U/L (4-34); AST 53 U/L (14-36); African American GFR (CKD) >90 (>60 ml/min/1.73 sqM); Albumin 3.2 g/dL (3.5-5.0); Alkaline Phosphatase 135 U/L (38-126); Anion Gap 4 mmol/L; Blood Urea Nitrogen 13 mg/dL (7-17); Calcium 8.5 mg/dL (8.4-10.2); Carbon Dioxide 24 mmol/L (22-30); Chloride 108 mmol/L (98-107); Glucose 117 mg/dL (74-99); Non-African American GFR(CKD) >90 (>60 ml/min/1.73 sqM); Potassium 4.1 mmol/L (3.5-5.1); Sodium 136 mmol/L (137-145); Total Bilirubin 1.8 mg/dL (0.2-1.3); Total Protein 6.1 g/dL (6.3-8.2)
[2024-08-05] MEDS: ASPIRIN 81 MG PO SCH (08:07)
--- NOTE | 2024-08-05 08:26 | P.CNPUL ---
History of Present Illness Consult date: 08/05/24 Requesting physician: Katelin Moy Reason for consult: other (Preoperative pulmonary clearance) Chief complaint: Chest pain History of present illness: Patient is a 49-year-old female with past medical history significant for coronary artery disease with previous PCI/stenting, hypertension, hyp erlipidemia, diet-controlled diabetes, previous tobacco dependence, chronic marijuana use. Not currently following with a PCP. Patient was recently hospitalized 07/29/2024 with unstable angina. The following day, underwent heart catheterization on 07/30/2024, multivessel coronary artery disease was noted. There was a stent placed to the ramus intermedius at this time. Inability, to stent the left circumflex artery. Transthoracic echocardiogram estimates left ventricular systolic function 55 to 60%, as well as, mild mitral and tricuspid regurgitation. Patient was discharged home on August. Returned to the emergency department the following day with severe substernal chest pain that occurred while watching TV. Chest pain radiated to left arm. Lasted approximately 10 minutes. Associated symptoms including shortness of breath, nausea, diaphoresis. Her did drive her to the emergency room. Patient brought back to the [facility] on 08/03/2024 multivessel coronary artery disease again noted including 40 to 50% left main stenosis, 20 to 30% LAD stenosis, patent stent to the ramus, and 80% dominant left circumflex stenosis. A cardiothoracic surgical consult was initiated. We are being asked to see this patient in pulmonary consultation in preparation for preoperative CABG. Chest CT done this admission did not show any acute pulmonary processes. Patient does have a smoking history approximately 1 pack/day smoker for 20 years. Quit smoking cigarettes 3 years ago and started vaping. Also smokes marijuana daily.. No diagnosed COPD, asthma, or other pre-existing pulmonary conditions. A bedside spirometry was performed, her FEV1 was reportedly 85% of predicted. Patient is currently sitting up in the bedside recliner, on room air, in no acute respiratory distress. SpO2 is 96%. No current chest pain. Most recent CBC from this morning: WBC count 5, hemoglobin 9.9, hematocrit 29.2, platelets 101,000. Most recent CMP from 08/03/2024: Sodium 137, potassium 4.4, chloride 110, serum bicarb 25, BUN 11, creatinine 0.79, glucose 139. LFTs mildly elevated. Serial troponins 0.045, 0.05, and 0.054 respectively. NT proBNP 291. STS score is being calculated. Review of Systems Constitutional: Denies chills, Denies fatigue, Denies fever, Denies weight gain, Denies weight loss Ears, nose, mouth and throat: Denies headache, Denies nasal congestion, Denies sinus pressure, Denies sore throat Cardiovascular: Reports chest pain, Reports lightheadedness, Reports palpita tions, Denies edema, Denies orthopnea Respiratory: Denies cough, Denies dyspnea Gastrointestinal: Denies abdominal pain, Denies diarrhea, Denies nausea, Denies vomiting Genitourinary: Denies difficulty voiding, Denies dysuria, Denies urinary frequency Musculoskeletal: Denies leg numbness/tingling, Denies limitation of motion, Denies muscle weakness Integumentary: Reports unusual bruising, Denies rash Neurological: Denies balance difficulties, Denies change in speech, Denies gait dysfunction, Denies headaches, Denies loss of vision Psychiatric: Denies anxiety, Denies depression Past Medical History Past Medical History: Coronary Artery Disease (CAD), Diabetes Mellitus, Hyperten amena, Osteoarthritis (OA), Skin Disorder Additional Past Medical History / Comment(s): KIDNEY STONES, diet controlled diabetic-no longer needs med, no longer needs BP med, seasonal allergies, abscess right breast, left breast hx. of abscess, yeast in skin fold in abd. History of Any Multi-Drug Resistant Organisms: None Reported Past Surgical History: Appendectomy, Breast Surgery, Cholecystectomy, Heart Catheterization With Stent, Orthopedic Surgery, Tubal Ligation Additional Past Surgical History / Comment(s): carpal tunnel RIGHT WRIST, dental, abcess drainage left breast x2 (July 2016, March 2019, Aug 2019); RT breast I&D 05/22/21, 06/05/21; Left ankle surgery. Past Anesthesia/Blood Transfusion Reactions: No Reported Reaction, Family History of Problems w/ Anesthesia Additional Past Anesthesia/Blood Transfusion Reaction / Comment(s): No blood transfusion to date, mom stopped breathing during a surg. & had to be resuscitated Date of Last Stent Placement:: 07/30/24 Past Psychological History: Anxiety, Bipolar, Depression Smoking Status: Former smoker Past Alcohol Use History: None Reported Past Drug Use History: Marijuana - Past Family History Mother Family Medical History: Cancer Additional Family Medical History / Comment(s): CERVICAL CANCER Father Family Medical History: Unable to Obtain Additional Family Medical History / Comment(s): Patient did not know her father Medications and Allergies Home Medications Medication Instructions Recorded Confirmed Type Aspirin 81 mg PO DAILY tab 08/01/24 08/02/24 Rx Atorvastatin [Lipitor] 80 mg PO HS 30 Days #30 tab 08/01/24 08/02/24 Rx Metoprolol Tartrate [Lopressor] 25 mg PO BID 30 Days #60 tab 08/01/24 08/02/24 Rx Nitroglycerin Sl Tabs [Nitrostat] 0.4 mg SUBLINGUAL Q5M PRN 30 Days 08/01/24 08/02/24 Rx #20 tab Ticagrelor [Brilinta] 90 mg PO BID 30 Days #60 tab 08/01/24 08/02/24 Rx Allergies Allergy/AdvReac Type Severity Reaction Status Date / Time capsaicin Allergy Rash/Hives/ Verified 08/02/24 18:30 Swelling Physical Exam Vitals: Vital Signs Temp Pulse Resp BP Pulse Ox 08/05/24 04:00 98.2 F 58 L 16 116/60 95 08/05/24 02:00 60 16 08/05/24 00:00 60 16 123/66 96 08/04/24 20:00 98.4 F 70 18 126/82 97 08/04/24 16:00 98.2 F 66 16 115/56 99 08/04/24 14:00 71 16 08/04/24 12:00 97.8 F 71 16 112/71 100 08/04/24 08:02 98.2 F 70 16 108/67 96 08/04/24 07:45 70 16 Intake and Output 08/04/24 08/05/24 08/05/24 22:59 06:59 14:59 Intake Total 600 240 10 Balance 600 240 10 Intake: IV 10 Invasive Line 2 10 Oral 600 240 Other: Voiding Method Toilet Toilet # Voids 2 2 Weight 105.2 kg Normal physical exam GENERAL EXAM: Alert, 49-year-old obese female sitting in bedside recliner, comfortable in no apparent distress. HEAD: Normocephalic and atraumatic EYES: Normal reaction of pupils, equal size. NOSE: Clear with pink turbinates. THROAT: No erythema or exudates. NECK: No masses, no JVD. CHEST: No chest wall deformity. LUNGS: Equal air entry with no crackles, wheeze, rhonchi or dullness. On room air. SpO2 96%. No conversational dyspnea or accessory muscle use.. CVS: S1 and S2 normal with grade 2 systolic murmur, regular rhythm. No other extra heart sounds ABDOMEN: No hepatosplenomegaly, active bowel sounds, no guarding or rigidity. SPINE: No scoliosis or deformity SKIN: No rashes. Right forearm ecchymosis CENTRAL NERVOUS SYSTEM: No focal deficits, tone is normal in all 4 extremities. EXTREMITIES: There is no peripheral edema, clubbing, or cyanosis. Peripheral pulses are intact. Results - Laboratory Findings CBC and BMP: 08/05/24 07:05 08/05/24 07:05 PT/INR, D-dimer PT 11.7 sec (10.0-12.5) 08/02/24 17:57 INR 1.1 (<1.2) 08/02/24 17:57 D-Dimer 0.55 mg/L FEU (<0.60) 08/02/24 17:57 Abnormal lab findings: Abnormal Labs 08/02/24 08/02/24 08/02/24 17:57 17:57 17:57 WBC 3.7 L RBC Hgb Hct Plt Count 89 L APTT Chloride Glucose 162 H POC Glucose (mg/dL) Calcium Total Bilirubin AST 77 H ALT 61 H Alkaline Phosphatase 154 H Troponin I 0.045 H* Total Protein Albumin HDL Cholesterol 08/02/24 08/02/24 08/03/24 20:37 22:50 02:46 WBC RBC Hgb Hct Plt Count 97 L APTT Chloride Glucose POC Glucose (mg/dL) Calcium Total Bilirubin AST ALT Alkaline Phosphatase Troponin I 0.050 H* 0.054 H* Total Protein Albumin HDL Cholesterol 08/03/24 08/03/24 08/03/24 02:46 04:43 06:25 WBC RBC Hgb Hct Plt Count APTT >200.0 H* 92.0 H Chloride Glucose POC Glucose (mg/dL) Calcium Total Bilirubin AST ALT Alkaline Phosphatase Troponin I Total Protein Albumin HDL Cholesterol 38.10 L 08/03/24 08/03/24 08/03/24 07:52 15:02 15:37 WBC RBC 3.48 L Hgb 10.7 L Hct 31.8 L Plt Count 108 L APTT 61.0 H Chloride Glucose POC Glucose (mg/dL) 129 H Calcium Total Bilirubin AST ALT Alkaline Phosphatase Troponin I Total Protein Albumin HDL Cholesterol 08/03/24 08/03/24 08/03/24 15:37 16:32 19:50 WBC RBC Hgb Hct Plt Count APTT Chloride 110 H Glucose 139 H POC Glucose (mg/dL) 177 H 161 H Calcium 8.2 L Total Bilirubin 1.6 H AST 71 H ALT 52 H Alkaline Phosphatase Troponin I Total Protein 6.0 L Albumin 3.1 L HDL Cholesterol 08/04/24 08/04/24 08/04/24 06:16 06:19 16:09 WBC RBC Hgb Hct Plt Count 104 L APTT Chloride Glucose POC Glucose (mg/dL) 223 H 178 H Calcium Total Bilirubin AST ALT Alkaline Phosphatase Troponin I Total Protein Albumin HDL Cholesterol 08/04/24 08/05/24 20:02 05:59 WBC RBC Hgb Hct Plt Count APTT Chloride Glucose POC Glucose (mg/dL) 131 H 131 H Calcium Total Bilirubin AST ALT Alkaline Phosphatase Troponin I Total Protein Albumin HDL Cholesterol - Diagnostic Findings Chest x-ray: image reviewed CT scan - chest: image reviewed Assessment and Plan Assessment: Multivessel coronary artery disease, with recent PCI/stenting to the ramus intermedius on 07/30/2024. Inability to stent left circumflex artery during the procedure. Patient is being worked up for surgical revascularization. Unstable angina Bicytopenia, normocytic/normochromic anemia and thrombocytopenia History of hypertension History of hyperlipidemia Morbid obesity, with a BMI of 41.1 kg/m Former tobacco dependence, [id number] history, quit smoking cigarettes 3 years ago, still vapes Chronic marijuana smoker Bilateral carotid artery stenosis, left ICA carotid artery stenosis greater than 70% and right ICA carotid stenosis less than 50%, clinically asymptomatic Plan: Currently undergoing extensive preoperative workup for tentative off-pump CABG planned for 08/09/2024 Patient's medications, labs, imaging reviewed Currently on room air, SpO2 96% We are consulted for preoperative pulmonary evaluation/management Bedside spirometry FEV1/FVC ratio 81%; FEV1 2.3 L or 85% of predicted. No diagnosed pre-existing pulmonary conditions Smoking cessation counseling performed Brilinta is on hold STS score is being calculated We will continue to follow the patient perioperatively I have personally seen and examined the patient, performed the documentation and the assessment and plan as written. Number of minutes spent on the visit:20 On today's evaluation of 08/05/2024, the patient is being seen in a joint evaluation along with nurse practitioner. This is a joint evaluation that was done more than 30 minutes. In summary, the patient has multivessel coronary artery disease. The patient has undergone previous PCI and stenting. The patient had another cardiac catheterization 08/02/2024 that showed multivessel disease and the patient is going to require coronary bypass surgery. She is a chronic smoker. She has hypertension hyperlipidemia and diabetes mellitus. The patient has an FEV1 of 85% predicted. She is on room air oxygen. CAT scan of the chest was reviewed and there was no significant pulmonary abnormalities. No evidence of any consolidation or airspace disease. No evidence of any nodules. There is hepatocellular disease and the patient has long history of alcoholism and mild splenomegaly and a 1 cm splenic lesion which is probably a cyst. The white cell count of 5 with a hemoglobin 9.9 and a platelet count of 101. BUN is 13 with a creatinine of 0.7 and sodium is at 136. Patient is currently on room air oxygen. Will be glad to follow-up this patient's course during her current hospital stay. She is currently on IV heparin which will be kept unchanged. She is tentatively scheduled to undergo surgery on 08/09/2024. Time with Patient: Greater than 30
[2024-08-05] MEDS ORDERED: HEPARIN SODIUM 1,000 UN/ML (10ML VL) IV PRN (08:46)
--- NOTE | 2024-08-05 08:58 | US ---
EXAMINATION TYPE: US arterial LE single level DATE OF EXAM: 08/05/2024 8:17 AM CLINICAL INDICATION: Female, 49 years old with history of Ankle Brachial Index (ANASTACIO) ; Preop History of: Smoker: Previous- stopped x 1 month ago Hypertension: No Diabetic: no Hyperlipidemia: yes TIA/CVA: n/a Previous Vascular Surgery: n/a CAD: yes MN: yes Vascular Ulcers: no Claudication: no Gangrene: no Doppler Waveforms: Right: Multiphasic Left: Multiphasic Right Brachial Pressure: Deferred due to IV Left Brachial Pressure: 116 Ankle-Brachial Indices: Right: 1.0 Left: 1.1 (Vessel hardening > 1.4; Normal 0.9 - 1.4, Moderate 0.7 - 0.9, Severe 0.5-0.7) IMPRESSION: Normal bilateral ANASTACIO
[2024-08-05] MEDS: HEPARIN SODIUM 1,000 UN/ML (10ML VL) IV ONE (09:18)
[2024-08-05] MEDS: HEPARIN SOD,PORK IN 0.45% NACL 25,000 UNIT in 0.45% NACL 1 250ML.BAG IV SCH (09:18)
--- NOTE | 2024-08-05 10:39 | P.PN ---
Subjective Progress Note Date: 08/05/24 Principal diagnosis: Coronary artery disease status post recent stentto her ramus coronary artery, currently on Brilinta, elevated serial troponins on admission, troponin 0.045 with peak 0.054. Past medical history significant for hypertension, diet- controlled diabetes with a hemoglobin A1c of 5.8%, bipolar disorder, previous tobacco cessation with recent cessation from vaping, history of EtOH abuse, chronically elevated transaminase enzymes and marijuana use. The patient was seen and examined in follow-up today August 05, 2024 at her bedside on the third floor cardiac stepdown unit. She is currently sitting up to the bedside chair, is awake, alert, oriented x 3 and is in no acute apparent distress. She denies any complaints of pain, shortness of breath, nausea or vomiting this a.m. Oxygen saturations are 95% on room air and she is achieving 2000 mL on her incentive spirometry with encouragement. Remote telemetry is showing normal sinus rhythm heart rate 75 bpm. The patient underwent an exercise stress test yesterday August 04, 2024, with the patient walking on a modified Parth protocol for a total duration of 1-1/2 minutes with a maximal heart rate of 94 bpm, subsequently she complained of some heaviness in the chest without EKG ischemic changes. The test was felt to be inconclusive. Dr. Souleymane Lan from cardiothoracic surgery reviewed the patient's cardiac catheterization films and transthoracic 2D echocardiogram films, discussed the findings with the patient and discussed treatment options including myocardial vascularization surgery. Risks and benefits of surgery were discussed with the patient including the STS risk score and knowing and understanding the risks the patient wished to proceed with the surgical option. The patient is tentatively scheduled for off-pump myocardial revascularization surgery scheduled for Monday, August 05, 2024 with left internal mammary artery, endoscopic vein harvest, exclusion left atrial appendage and intraoperative transesophageal echocardiogram to be completed by Dr. Phong Ortiz. Preoperative teaching has been reinforced with the patient. A CT scan of the chest was completed yester day August 04, 2024 which demonstrated a nodular pattern to the liver, correlate for underlying hepatocellular disease with borderline mild splenomegaly and an intermediate 1 cm splenic lesion was seen. An ultrasound of her liver and spleen are pending today. The patient's MRSA/MSSA nasal screen swab was positive for Staphylococcus auris, not MRSA and she is on mupirocin nasal ointment twice daily. Laboratory results were reviewed, hemoglobin today is 9.9, hematocrit 29.2, platelet count 101, total bilirubin 1.8, AST 53, ALT 45, alkaline phosphate 135, and INR is 1.2. The patient reports she has been up ambulating in the hallway without difficulty. Objective - Vital Signs Vital signs: Vital Signs Temp 97.9 F 08/05/24 08:04 Pulse 68 08/05/24 08:04 Resp 16 08/05/24 08:04 BP 103/56 08/05/24 08:04 Pulse Ox 100 08/05/24 08:04 FiO2 Intake & Output 08/04/24 08/05/24 08/05/24 18:59 06:59 18:59 Intake Total 578 720 490 Balance 578 720 490 Weight 105.2 kg Intake: IV 10 Invasive Line 2 10 Oral 578 720 480 Other: Voiding Method Toilet Toilet Toilet # Voids 3 2 - Exam CONSTITUTIONAL: Sitting up to the bedside chair, appears comfortable, cooperative, no apparent acute distress. HEENT: Neck is supple, no JVD, no lymphadenopathy. RESPIRATORY: Lungs sounds essentially clear throughout, diminished to his bilateral bases. Respirations are symmetrical and nonlabored. Currently on room air with oxygen saturations 95%. Able to achieve 2000 mL on her incentive spirometry. Strong cough. CARDIOVASCULAR: Regular rhythm and rate. S1 and S2 present, negative for S3, or gallop. Systolic murmur present. Remote telemetry showing normal sinus rhythm heart rate 75 bpm. Palpable peripheral pulses bilaterally. No calf pain or tenderness noted. GASTROINTESTINAL: Abdomen soft, nontender, nondistended. Obese. Active bowel sounds present 4 quadrants. Tolerating diet. Passing flatus. No guarding or rigidity. GENITOURINARY: Continues to void. INTEGUMENTARY: Skin is warm and dry with no evidence of clubbing or cyanosis. Ecchymosis to her right forearm, soft and nontender. NEUROLOGIC: Cranial nerves II through XII intact. No focal deficits. MUSKULOSKELETAL: Able to move all extremities, strength equal bilaterally. PSYCHIATRIC: Alert and oriented to person place and time, appropriate affect, intact judgment and insight. - Allied health notes Allied health notes reviewed: nursing - Labs CBC & Chem 7: 08/05/24 07:05 08/05/24 07:05 Labs: Abnormal Lab Results - Last 24 Hours (Table) 08/04/24 08/04/24 08/05/24 Range/Units 16:09 20:02 05:59 RBC (3.80-5.40) m/uL Hgb (11.4-16.0) gm/dL Hct (34.0-46.0) % Plt Count (150-450) k/uL INR (<1.2) Sodium (137-145) mmol/L Chloride (98-107) mmol/L Glucose (74-99) mg/dL POC Glucose (mg/dL) 178 H 131 H 131 H (70-110) mg/dL Total Bilirubin (0.2-1.3) mg/dL AST (14-36) U/L ALT (4-34) U/L Alkaline Phosphatase (38-126) U/L Total Protein (6.3-8.2) g/dL Albumin (3.5-5.0) g/dL 08/05/24 08/05/24 08/05/24 Range/Units 07:05 07:05 07:16 RBC 3.24 L (3.80-5.40) m/uL Hgb 9.9 L (11.4-16.0) gm/dL Hct 29.2 L (34.0-46.0) % Plt Count 101 L (150-450) k/uL INR 1.2 H (<1.2) Sodium 136 L (137-145) mmol/L Chloride 108 H (98-107) mmol/L Glucose 117 H (74-99) mg/dL POC Glucose (mg/dL) (70-110) mg/dL Total Bilirubin 1.8 H (0.2-1.3) mg/dL AST 53 H (14-36) U/L ALT 45 H (4-34) U/L Alkaline Phosphatase 135 H (38-126) U/L Total Protein 6.1 L (6.3-8.2) g/dL Albumin 3.2 L (3.5-5.0) g/dL Microbiology - Last 24 Hours (Table) 08/03/24 16:25 Nasal Screen MRSA/MSSA - Final Nasal Swab Staphylococcus aureus,Not MRSA - Imaging and Cardiology CT scan - chest: report reviewed Assessment and Plan Assessment: Coronary artery disease status post recent stent Chest pain secondary to above Preserved left ventricular systolic function, EF 55-60%, mild mitral valve regurgitation, tricuspid valve regurgitation Anemia, hemoglobin 9.9 today Thrombocytopenia, platelet count today 101 Left ICA carotid stenosis greater than 70% and right ICA carotid stenosis less than 50% on carotid duplex study Mild splenomegaly, intermediate 1 cm splenic lesion on CT scan of the chest History of hypertension Diet-controlled diabetes, hemoglobin A1c 5.8% Bipolar disorder, history of suicidal ideation Previous tobacco cessation with recent cessation from vaping, FEV1 85% of predicted value Marijuana use History of EtOH abuse Chronic transaminitis, AST 53, ALT 45 Plan: Continue to maximize medical management with aspirin, statin, Zetia and beta- lopez. Preoperative testing and preoperative teaching in progress. The importance of risk modification including smoking marijuana and vaping cessation reviewed with the patient. Discussed the importance with the patient of following medical recommendations with taking medicines. CT scan of the chest results reviewed. Ultrasound of the liver and spleen have been ordered. A 5 m walk test was completed with the patient yesterday August 04, 2024, time 1: 4.21 Seconds, time 2: 4.36 Seconds, and time 3: 4.22 Seconds. A clinical frailty score was calculated with the patient, with a score showing 3. An STS risk or has been calculated and discussed with the patient. Iron profile results pending. Continue to monitor hemoglobin and platelets. Continue to hold Brilinta, last dose of Brilinta was on August 03, 2024. Heparin drip management per cardiology recommendations. The patient is scheduled for off-pump myocardial vascularization surgery, with left internal mammary artery, endoscopic greater saphenous vein harvest, exclusion left atrial appendage and intraoperative transesophageal echocardiogram to be completed by Dr. Phong Ortiz on Friday, August 09, 2024. Pulmonary/critical care medicine has been consulted. Medical management and other comorbidities per primary care and cardiology service. More recommendations to follow based on patient's clinical course. Time with Patient: Greater than 30
--- NOTE | 2024-08-05 11:39 | P.PN ---
Subjective HISTORY OF PRESENT ILLNESS: This is a 49-year-old female with a past medical history significant for coronary artery disease, diabetes, hypertension, anxiety, bipolar disorder, and depression. Patient follows in the office with Dr. Ogden. We have been asked to see the patient in consultation for non-STEMI. Patient examined at the bedside in the emergency room. Patient was recently admitted for chest pain and underwent stress echocardiogram which came in to be abnormal. She underwent cardiac catheterization with Dr. Ogden on July 30, 2024 revealing 20 to 30% distal left main stenosis, LAD 20 to 30% stenosis, ramus 90% stenosis, ostial circumflex 99% stenosis. She underwent PCI of the ramus and also PTCA of the circumflex with inability to get a stent past the heavily calcified ostial circumflex angulation. Patient was discharged home in stable condition on Thursday, August 01, 2024. The patient states she was feeling well at home. She states that yesterday she began to have pain in her right arm that radiated up into her arm. She also reports that she developed chest pain that went into her left arm, underneath her armpit, and her left shoulder blade. She decided to come to the emergency room for further evaluation. The patient does report having another episode of chest pain while in the ER around 2 AM. She received nitro at that time which relieved her pain. She denies having any episodes of chest pain since that time. The patient does report she was unable to get her prescriptions for her Brilinta on Friday when she was discharged. She states that she spoke with one of Dr. Zhang partners on the day of discharge who apparently told her it was okay to miss a day. Her last dose of Brilinta was Friday morning. DIAGNOSTICS: - EKG reveals sinus mechanism with nonspecific ST-T wave changes - Chest xray negative for acute process - Laboratory data: Troponin 0.045. 0.050. 0.054. - Current home cardiac medications include aspirin 81 mg daily, Lipitor 80 mg at night, metoprolol tartrate 25 mg twice a day, Brilinta 90 mg twice a day. - Most recent echocardiogram obtained in July 2024 revealed ejection fraction 55 to 60% with mild MR, mild TR 08/04/2024 Patient is s/p cardiac catheterization with Dr. Ogden revealing 40 to 50% left main stenosis, 20-30% LAD stenosis, patent ramus stent and 80% dominant circumflex stenosis. CT surgery was consulted due to patients multiple risk for PCI (see cath report). Patient examined this morning the bedside. Patient currently denies chest pain or pressure. She denies shortness of breath. Vital signs are stable. 08/05/2024 Patient examined this morning the bedside. Patient currently denies chest pain or pressure. She denies shortness of breath. Vital signs are stable. PHYSICAL EXAM: VITAL SIGNS: Reviewed. GENERAL: Well-developed in no acute distress. HEENT: Head is normocephalic. Pupils are equal, round. Sclerae anicteric. Mucous membranes of the mouth are moist. Neck supple. No JVD or thyromegaly LUNGS: Respirations even and unlabored. Lungs essentially clear to auscultation bilaterally. HEART: Regular rate and rhythm. S1 and S2 heard. ABDOMEN: Soft. Nondistended. Nontender. EXTREMITIES: Normal range of motion. No clubbing or cyanosis. Peripheral pulses intact. No lower extremity edema. Right upper extremity with bruising noted. NEUROLOGIC: Awake and alert. Oriented x 3. ASSESSMENT: Chest pain Elevated troponins, flat, acute coronary event ruled out, likely secondary to recent cardiac catheterization Coronary artery disease, status post PCI of the ramus and also PTCA of the circumflex with inability to get a stent past the heavily calcified ostial circumflex angulation, July 30, 2024 Hypertension, not requiring medications for patient Diabetes, diet controlled per patient Anxiety Bipolar disorder Depression Obesity: BMI 37.7 Former nicotine dependence PLAN: Continue current cardiac medications Brilinta remains on hold secondary to pending CABG Begin IV heparin CT surgery following. Plan for CABG on Friday with Dr. Ortiz Further recommendations pending patient course Nurse practitioner note has been reviewed by physician. Signing provider agrees with the documented findings, assessment, and plan of care documented by REPAIR SERVICE CLERK as a scribe. Objective - Vital Signs Vital signs: Vital Signs Temp 97.9 F 08/05/24 08:04 Pulse 68 08/05/24 08:04 Resp 16 08/05/24 08:04 BP 103/56 08/05/24 08:04 Pulse Ox 100 08/05/24 08:04 FiO2 Intake & Output 08/04/24 08/05/24 08/05/24 18:59 06:59 18:59 Intake Total 578 720 490 Balance 578 720 490 Weight 105.2 kg Intake: IV 10 Invasive Line 2 10 Oral [phone] Other: Voiding Method Toilet Toilet Toilet # Voids 3 2 - Labs CBC & Chem 7: 08/05/24 07:05 08/05/24 07:05 Labs: Abnormal Lab Results - Last 24 Hours (Table) 08/04/24 08/04/24 08/05/24 Range/Units 16:09 20:02 05:59 RBC (3.80-5.40) m/uL Hgb (11.4-16.0) gm/dL Hct (34.0-46.0) % Plt Count (150-450) k/uL INR (<1.2) Sodium (137-145) mmol/L Chloride (98-107) mmol/L Glucose (74-99) mg/dL POC Glucose (mg/dL) 178 H 131 H 131 H (70-110) mg/dL Total Bilirubin (0.2-1.3) mg/dL AST (14-36) U/L ALT (4-34) U/L Alkaline Phosphatase (38-126) U/L Total Protein (6.3-8.2) g/dL Albumin (3.5-5.0) g/dL 08/05/24 08/05/24 08/05/24 Range/Units 07:05 07:05 07:16 RBC 3.24 L (3.80-5.40) m/uL Hgb 9.9 L (11.4-16.0) gm/dL Hct 29.2 L (34.0-46.0) % Plt Count 101 L (150-450) k/uL INR 1.2 H (<1.2) Sodium 136 L (137-145) mmol/L Chloride 108 H (98-107) mmol/L Glucose 117 H (74-99) mg/dL POC Glucose (mg/dL) (70-110) mg/dL Total Bilirubin 1.8 H (0.2-1.3) mg/dL AST 53 H (14-36) U/L ALT 45 H (4-34) U/L Alkaline Phosphatase 135 H (38-126) U/L Total Protein 6.1 L (6.3-8.2) g/dL Albumin 3.2 L (3.5-5.0) g/dL Microbiology - Last 24 Hours (Table) 08/03/24 16:25 Nasal Screen MRSA/MSSA - Final Nasal Swab Staphylococcus aureus,Not MRSA
[2024-08-05 11:44] LABS: Glucose,Whole Blood 115 mg/dL (70-110)
--- NOTE | 2024-08-05 13:00 | US ---
EXAMINATION TYPE: US abdomen limited DATE OF EXAM: 08/05/2024 COMPARISON: CT CLINICAL INDICATION: Female, 49 years old with history of US Liver/Spleen,Elevated liver enzymes; Ama vated LFT's, abnormal spleen on CT TECHNIQUE: Multiple sonographic images of the right upper quadrant are obtained. FINDINGS: EXAM MEASUREMENTS: Liver Length: 13.8 cm CBD: 0.5 cm Right Kidney: 10.5 x 4.8 x 5.4 cm Spleen: 13.2 cm Pancreas: Head wnl, body and tail obscured by overlying bowel gas Liver: Heterogeneous, coarse echotexture, lobulated contour Gallbladder: Surgically absent Evidence for sonographic Rosario's sign: No CBD: wnl Right Kidney: No evidence of hydro, lower pole gassed out Spleen: Enlarged, hypoechoic lesion with posterior enhancement= 1.2 x 1.2 x 1.3 cm. IMPRESSION: 1. Increased echogenicity of the liver echotexture consistent with fatty liver but no focal mass or h epatomegaly. 2. Spleen borderline normal in size. 3. Pancreatic head within normal limits. Body and tail obscured by bowel gas. 4. status post cholecystectomy. 5. Unremarkable right kidney
[2024-08-05] MEDS ORDERED: LOPERAMIDE 2 MG CAP PO PRN (13:08)
--- NOTE | 2024-08-05 15:09 | P.PN ---
Subjective Progress Note Date: 08/05/24 This is a pleasant 49 years old female who was recently discharged from the hospital on 08/01 after she had cardiac cath. Patient presents because of chest pain thought secondary to unstable angina with negative troponins. She underwent left heart catheterization 07/30/2024 showing CAD i with 20-30% distal left main stenosis, LAD 20-30% stenosis, ramus 90% stenosis, ostial circumflex 99% stenosis, status post PCI of the ramus, status post PTCA circumflex. She was started on aspirin and Brilinta. After discharge patient could not fill up her prescription because it was a long weekend holiday for . She presents this time because of chest pain that lasted about 15 minutes. Patient currently denies chest pain no dyspnea. No coughing No other /GI symptoms. Earlier she had nausea which is resolved now. No abdominal pain vomiting diarrhea. No headache dizziness weakness or numbness She smokes cigarettes and states she quit smoking today without specification. Nicotine patch offered but she declines. She drinks alcohol occasionally. No illicit drugs. Her environmental education specialist is Dr. Ogden that she intends to follow-up in 1 week. She states she has no PCP but she intends to find 1. Hemodynamically stable Labs showing WBC 3.7 and platelet count 9.7. Liver enzymes mildly elevated. Troponin are elevated 0.4 and 0.5 and 0.5 D-dimer negative at 0.55 proBNP is 291 Amylase lipase negative Chest x-ray is negative for acute process EKG showing sinus bradycardia at [address]-T changes Upper extremity duplex of the forearm was negative. 08/04/2024 Patient is seen and evaluated in follow-up today currently undergoing stress test with cardiology following. Patient continues to report chest pain and chest discomfort with shortness of breath with exertion. Patient being followed by cardiothoracic surgery undergoing workup for possible CABG. CT chest is ordered and pending as well. Patient is afebrile with no worsening shortness of breath or palpitations noted. Patient denies nausea or vomiting and was currently n.p.o. for the stress test this morning. 08/05/2024 Patient is seen and evaluated in follow-up this morning currently undergoing preop workup with CT surgery and tentatively scheduled for off-pump intervention on 08/09/[address] Ortiz. Patient reports currently her chest pain is under control although has not been up and moving much other to the bathroom and back. Patient encouraged to increase activity with frequent walks and also continue with the use of the incentive spirometer and further testing per CT surgery. Patient reports she did have an episode of loose stool this morning and have ordered as needed Imodium. Patient is afebrile with no reports of chest pain, shortness of breath, or palpitations at this time. Will follow-up on serial labs and continue to monitor closely until surgery. Patient to continue on 3 S. per protocol Review of systems: Constitutional: No reports of fatigue, fever, or chills Cardiovascular: reports of continued chest pain, denies palpitations Respiratory: No reports of shortness of breath or cough other than with exertion GI: No reports of nausea, vomiting, reports of an episode of diarrhea this morning : No reports of dysuria or retention Neurovascular: No reports of weakness or numbness All medications have been reviewed Physical exam: GENERAL: The patient is alert and oriented x3, not in any acute distress. Well developed, well nourished. Morbidly obese HEENT: Pupils are round and equally reacting to light. EOMI. No scleral icterus. No conjunctival pallor. Normocephalic, atraumatic. No pharyngeal erythema. No thyromegaly. CARDIOVASCULAR: S1 and S2 present. No murmurs, rubs, or gallops. PULMONARY: Chest is clear to auscultation, no wheezing , no crackles. ABDOMEN: Soft, nontender, nondistended, normoactive bowel sounds. No palpable organomegaly. MUSCULOSKELETAL: No joint swelling or deformity. EXTREMITIES: No cyanosis, clubbing, or pedal edema. Ecchymosis of the right forearm on the medial side. NEUROLOGICAL: Gross neurological examination did not reveal any focal deficits. SKIN: No rashes. no petechiae. Assessment: Chest pain with mildly elevated troponin and review of recent stent placement to ramus branch and PTCA circumflex. Related to her unstable angina. Currently awaiting a stress test and undergoing further workup for possible triple-vessel disease with CT surgery. Undergoing further workup for off-pump vascularization on 08/09/2024 Nonadherence to therapy because it was holiday and she could not follow-up her prescription from the pharmacy Mild transaminitis Mild bicytopenia with leukopenia and thrombocytopenia Hypertension Diabetes Morbid obesity with a BMI of 41.1 Nicotine dependence with vaping Osteoarthritis History of kidney stones GI prophylaxis DVT prophylaxis Full code Plan: Continue with cardiology and CT surgery following. Patient underwent repeat cardiac catheterization and given her high risk factors and continued chest pain CT surgery consulted and undergoing possible triple-vessel disease intervention. Currently undergoing further cardiothoracic workup Follow-up on repeat labs and replace electrolytes per protocol Provide resources for outpatient follow-up to establish with a primary care provider. Patient reports she was a patient of Dr. Marin previously although he relocated and difficult due to social issues and barriers with only having [address] the home, patient is unable to make it to her appointments. Continue to encourage complete smoking and vaping cessation Per CT surgery patient will continue to be hospitalized and tentatively scheduled for off-pump vascularization with Dr. Ortiz on 08/09/2024 Continue telemetry monitoring and continue on 3 S. per protocol. The impression and plan of care has been dictated by Jessica Rendon, Nurse Practitioner as directed. Dr. Heriberto MD I have performed a history and examination and MDM of this patient, discussed the same with the dictator, and agree with the dictator's assessment and plan as written ,documented as a scribe. Based on total visit time, I have performed more than 50% of the visit. Currently undergoing stress test with cardiology following. Objective - Vital Signs Vital signs: Vital Signs Temp 97.9 F 08/05/24 08:04 Pulse 68 08/05/24 08:04 Resp 16 08/05/24 08:04 BP 103/56 08/05/24 08:04 Pulse Ox 100 08/05/24 08:04 FiO2 Intake & Output 08/04/24 08/05/24 08/05/24 18:59 06:59 18:59 Intake Total 578 720 10 Balance 578 720 10 Weight 105.2 kg Intake: IV 10 Invasive Line 2 10 Oral 578 720 Other: Voiding Method Toilet Toilet # Voids 3 2 - Labs CBC & Chem 7: 08/05/24 07:05 08/05/24 07:05 Labs: Abnormal Lab Results - Last 24 Hours (Table) 08/04/24 08/04/24 08/05/24 Range/Units 16:09 20:02 05:59 RBC (3.80-5.40) m/uL Hgb (11.4-16.0) gm/dL Hct (34.0-46.0) % Plt Count (150-450) k/uL INR (<1.2) Sodium (137-145) mmol/L Chloride (98-107) mmol/L Glucose (74-99) mg/dL POC Glucose (mg/dL) 178 H 131 H 131 H (70-110) mg/dL Total Bilirubin (0.2-1.3) mg/dL AST (14-36) U/L ALT (4-34) U/L Alkaline Phosphatase (38-126) U/L Total Protein (6.3-8.2) g/dL Albumin (3.5-5.0) g/dL 08/05/24 08/05/24 08/05/24 Range/Units 07:05 07:05 07:16 RBC 3.24 L (3.80-5.40) m/uL Hgb 9.9 L (11.4-16.0) gm/dL Hct 29.2 L (34.0-46.0) % Plt Count 101 L (150-450) k/uL INR 1.2 H (<1.2) Sodium 136 L (137-145) mmol/L Chloride 108 H (98-107) mmol/L Glucose 117 H (74-99) mg/dL POC Glucose (mg/dL) (70-110) mg/dL Total Bilirubin 1.8 H (0.2-1.3) mg/dL AST 53 H (14-36) U/L ALT 45 H (4-34) U/L Alkaline Phosphatase 135 H (38-126) U/L Total Protein 6.1 L (6.3-8.2) g/dL Albumin 3.2 L (3.5-5.0) g/dL
[2024-08-05 16:30] LABS: Glucose,Whole Blood 156 mg/dL (70-110)
[2024-08-05 17:32] LABS: % Iron Saturation 19.88 (12.00-45.00)
[2024-08-05 17:53] LABS: Appearance,Urine Clear (Clear); Bacteria,Urine Moderate /hpf; Bilirubin,Urine Negative (Negative); Blood,Urine Negative (Negative); Color,Urine Yellow; Glucose,Urine (UA) Negative (Negative); Ketones,Urine Negative (Negative); Leukocyte Esterase,Urine Trace (Negative); Mucus,Urine Rare /hpf; Nitrite,Urine Negative (Negative); Protein,Urine Negative (Negative); RBC,Urine <1 /hpf (0-5); Specific Gravity,Urine 1.019 (1.001-1.035); Squamous Epithelial Cell,Urine 3 /hpf (0-4); WBC,Urine 11 /hpf (0-5)
[2024-08-05 19:55] LABS: Glucose,Whole Blood 144 mg/dL (70-110)
[2024-08-06 06:04] LABS: Glucose,Whole Blood 138 mg/dL (70-110)
[2024-08-06 07:01] LABS: Basophils % (A) 1 %; Eosinophils # (A) 0.3 k/uL (0-0.7); Eosinophils % (A) 6 %; HCT 29.2 % (34.0-46.0); HGB 9.8 gm/dL (11.4-16.0); Lymphocytes # (A) 1.8 k/uL (1.0-4.8); Lymphocytes % (A) 32 %; MCH 30.2 pg (25.0-35.0); MCHC 33.5 g/dL (31.0-37.0); Mean Platelet Volume 10.3; Monocytes # (A) 0.5 k/uL (0-1.0); Monocytes % (A) 9 %; Neutrophils # (A) 2.8 k/uL (1.3-7.7); Neutrophils % (A) 51 %; Platelet Count 117 k/uL (150-450); RBC 3.24 m/uL (3.80-5.40); RDW 14.8 % (11.5-15.5); WBC 5.6 k/uL (3.8-10.6)
[2024-08-06 07:10] LABS: INR 1.2 (<1.2); Partial Thromboplastin Time 76.5 sec (22.0-30.0); Prothrombin Time 12.3 sec (10.0-12.5)
[2024-08-06 07:42] LABS: ALT 41 U/L (4-34); AST 49 U/L (14-36); African American GFR (CKD) >90 (>60 ml/min/1.73 sqM); Albumin 3.2 g/dL (3.5-5.0); Alkaline Phosphatase 165 U/L (38-126); Anion Gap 5 mmol/L; Blood Urea Nitrogen 13 mg/dL (7-17); Calcium 8.7 mg/dL (8.4-10.2); Carbon Dioxide 24 mmol/L (22-30); Chloride 107 mmol/L (98-107); Glucose 128 mg/dL (74-99); Non-African American GFR(CKD) 82 (>60 ml/min/1.73 sqM); Potassium 4.1 mmol/L (3.5-5.1); Sodium 136 mmol/L (137-145); Total Bilirubin 1.8 mg/dL (0.2-1.3); Total Protein 6.1 g/dL (6.3-8.2)
--- NOTE | 2024-08-06 07:51 | P.PN ---
Subjective Progress Note Date: 08/06/24 Principal diagnosis: Coronary artery disease, normocytic, normochromic anemia, thrombocytopenia, left ICA stenosis greater than 70%, mild splenomegaly on CT of the chest, borderline normal in size on ultrasound. History of hypertension, diet-controlled diabetes, bipolar disorder with history of suicidal ideation, previous tobacco cessation with recent cessation from vaping, marijuana use, history of EtOH abuse, chronic transaminitis The patient was seen and examined this morning walking around her room on the cardiac stepdown unit in no acute distress. She does have intermittent periods of mild chest heaviness, she does complain of mild shortness of breath with activity. She has been walking the hallway but does cut her walking short occasionally because of shortness of breath. As she sits in her room this morning she has no complaints of pain or shortness of breath. Preoperative testing completed, anticipate coronary artery bypass surgery on Friday with Dr. Ortiz. Patient has no new questions regarding surgery. Continues to be on room air with oxygen saturation in the high 90s, able to achieve 1500 mL on incentive spirometry. Remains in sinus rhythm, hemodynamically stable. No other new concerns. Objective - Vital Signs Vital signs: Vital Signs Temp 98.2 F 08/06/24 03:21 Pulse 69 08/06/24 03:21 Resp 18 08/06/24 03:21 BP 102/65 08/06/24 03:21 Pulse Ox 100 08/06/24 03:21 FiO2 Intake & Output 08/05/24 08/06/24 08/06/24 18:59 06:59 18:59 Intake Total 921.789 Balance 921.789 Weight 105.1 kg Intake: IV 10 Invasive Line 2 10 Intake, IV Titration 73.789 Amount Heparin Sod,Pork in 0.45% 73.789 NaCl 25,000 unit In 0.45 % NaCl 1 250ml.bag @ 9.5 UNITS/KG/HR 9.994 mls/hr IV .Q24H GABO Rx#: [id number] Oral 838 Other: Voiding Method Toilet Toilet # Voids 3 - Exam CONSTITUTIONAL: Appears comfortable, cooperative, no acute distress RESPIRATORY: Lungs sounds diminished in the bases bilaterally. Respirations even, nonlabored. Currently on room air with oxygen saturation 100%. Able to achieve 1500 mL on incentive spirometry. Strong cough. CARDIOVASCULAR: S1, S2 present. Regular rate and rhythm, sinus rhythm on telemetry. Palpable peripheral pulses bilaterally. No edema present. No calf pain or tenderness noted GASTROINTESTINAL: Abdomen soft, nontender, nondistended. Active bowel sounds present 4 quadrants. Tolerating diet. Positive bowel movement this morning GENITOURINARY: Continues to void INTEGUMENTARY: Skin is warm and dry with evidence of good perfusion NEUROLOGIC: Cranial nerves II through XII intact MUSKULOSKELETAL: Able to move all extremities, strength equal bilaterally, gait normal PSYCHIATRIC: Alert and oriented to person place and time, appropriate affect, intact judgment and insight - Allied health notes Allied health notes reviewed: nursing - Labs CBC & Chem 7: 08/06/24 06:14 08/05/24 07:05 Labs: Abnormal Lab Results - Last 24 Hours (Table) 08/05/24 08/05/24 08/05/24 Range/Units 07:05 07:05 07:16 RBC 3.24 L (3.80-5.40) m/uL Hgb 9.9 L (11.4-16.0) gm/dL Hct 29.2 L (34.0-46.0) % Plt Count 101 L (150-450) k/uL INR 1.2 H (<1.2) APTT (22.0-30.0) sec Sodium 136 L (137-145) mmol/L Chloride 108 H (98-107) mmol/L Glucose 117 H (74-99) mg/dL POC Glucose (mg/dL) (70-110) mg/dL Total Bilirubin 1.8 H (0.2-1.3) mg/dL AST 53 H (14-36) U/L ALT 45 H (4-34) U/L Alkaline Phosphatase 135 H (38-126) U/L Total Protein 6.1 L (6.3-8.2) g/dL Albumin 3.2 L (3.5-5.0) g/dL Ur Leukocyte Esterase (Negative) Urine WBC (0-5) /hpf Urine Bacteria (None) /hpf Urine Mucus (None) /hpf 08/05/24 08/05/24 08/05/24 Range/Units 11:42 15:08 15:37 RBC (3.80-5.40) m/uL Hgb (11.4-16.0) gm/dL Hct (34.0-46.0) % Plt Count (150-450) k/uL INR (<1.2) APTT 94.8 H (22.0-30.0) sec Sodium (137-145) mmol/L Chloride (98-107) mmol/L Glucose (74-99) mg/dL POC Glucose (mg/dL) 115 H (70-110) mg/dL Total Bilirubin (0.2-1.3) mg/dL AST (14-36) U/L ALT (4-34) U/L Alkaline Phosphatase (38-126) U/L Total Protein (6.3-8.2) g/dL Albumin (3.5-5.0) g/dL Ur Leukocyte Esterase Trace H (Negative) Urine WBC 11 H (0-5) /hpf Urine Bacteria Moderate H (None) /hpf Urine Mucus Rare H (None) /hpf 08/05/24 08/05/24 08/05/24 Range/Units 16:28 19:53 23:42 RBC (3.80-5.40) m/uL Hgb (11.4-16.0) gm/dL Hct (34.0-46.0) % Plt Count (150-450) k/uL INR (<1.2) APTT 77.0 H (22.0-30.0) sec Sodium (137-145) mmol/L Chloride (98-107) mmol/L Glucose (74-99) mg/dL POC Glucose (mg/dL) 156 H 144 H (70-110) mg/dL Total Bilirubin (0.2-1.3) mg/dL AST (14-36) U/L ALT (4-34) U/L Alkaline Phosphatase (38-126) U/L Total Protein (6.3-8.2) g/dL Albumin (3.5-5.0) g/dL Ur Leukocyte Esterase (Negative) Urine WBC (0-5) /hpf Urine Bacteria (None) /hpf Urine Mucus (None) /hpf 08/06/24 08/06/24 08/06/24 Range/Units 06:02 06:14 06:14 RBC 3.24 L (3.80-5.40) m/uL Hgb 9.8 L (11.4-16.0) gm/dL Hct 29.2 L (34.0-46.0) % Plt Count 117 L (150-450) k/uL INR 1.2 H (<1.2) APTT 76.5 H (22.0-30.0) sec Sodium (137-145) mmol/L Chloride (98-107) mmol/L Glucose (74-99) mg/dL POC Glucose (mg/dL) 138 H (70-110) mg/dL Total Bilirubin (0.2-1.3) mg/dL AST (14-36) U/L ALT (4-34) U/L Alkaline Phosphatase (38-126) U/L Total Protein (6.3-8.2) g/dL Albumin (3.5-5.0) g/dL Ur Leukocyte Esterase (Negative) Urine WBC (0-5) /hpf Urine Bacteria (None) /hpf Urine Mucus (None) /hpf Microbiology - Last 24 Hours (Table) 08/03/24 16:25 Nasal Screen MRSA/MSSA - Final Nasal Swab Staphylococcus aureus,Not MRSA Assessment and Plan Assessment: Coronary artery disease status post recent stent Chest pain secondary to above Preserved left ventricular systolic function, EF 55-60%, mild MR, TR Normocytic, normochromic anemia, iron studies normal Thrombocytopenia Left ICA stenosis greater than 70% Mild splenomegaly on CT of the chest, borderline normal in size on ultrasound History of hypertension Diet-controlled diabetes, hemoglobin A1c 5.8% Bipolar disorder, history of suicidal ideation Previous tobacco cessation with recent cessation from vaping, preoperative FEV1 85% of predicted Marijuana use History of EtOH abuse Chronic transaminitis, increased echogenicity of the liver consistent with fatty liver and ultrasound Plan: Continue to maximize medical management with aspirin, statin, Zetia and beta- lopez. Continue to hold Brilinta, last dose 08/03/24 Continue preoperative teaching The importance of risk modification including smoking marijuana and vaping cessation reinforced Increase activity as tolerated Encourage incentive spirometry use Medical management of other comorbidities per primary care and cardiology More recommendations to follow
--- NOTE | 2024-08-06 10:56 | P.PN ---
Subjective HISTORY OF PRESENT ILLNESS: This is a 49-year-old female with a past medical history significant for coronary artery disease, diabetes, hypertension, anxiety, bipolar disorder, and depression. Patient follows in the office with Dr. Ogden. We have been asked to see the patient in consultation for non-STEMI. Patient examined at the bedside in the emergency room. Patient was recently admitted for chest pain and underwent stress echocardiogram which came in to be abnormal. She underwent cardiac catheterization with Dr. Ogden on July 30, 2024 revealing 20 to 30% distal left main stenosis, LAD 20 to 30% stenosis, ramus 90% stenosis, ostial circumflex 99% stenosis. She underwent PCI of the ramus and also PTCA of the circumflex with inability to get a stent past the heavily calcified ostial circumflex angulation. Patient was discharged home in stable condition on Thursday, August 01, 2024. The patient states she was feeling well at home. She states that yesterday she began to have pain in her right arm that radiated up into her arm. She also reports that she developed chest pain that went into her left arm, underneath her armpit, and her left shoulder blade. She decided to come to the emergency room for further evaluation. The patient does report having another episode of chest pain while in the ER around 2 AM. She received nitro at that time which relieved her pain. She denies having any episodes of chest pain since that time. The patient does report she was unable to get her prescriptions for her Brilinta on Friday when she was discharged. She states that she spoke with one of Dr. Zhang partners on the day of discharge who apparently told her it was okay to miss a day. Her last dose of Brilinta was Friday morning. DIAGNOSTICS: - EKG reveals sinus mechanism with nonspecific ST-T wave changes - Chest xray negative for acute process - Laboratory data: Troponin 0.045. 0.050. 0.054. - Current home cardiac medications include aspirin 81 mg daily, Lipitor 80 mg at night, metoprolol tartrate 25 mg twice a day, Brilinta 90 mg twice a day. - Most recent echocardiogram obtained in July 2024 revealed ejection fraction 55 to 60% with mild MR, mild TR 08/04/2024 Patient is s/p cardiac catheterization with Dr. Ogden revealing 40 to 50% left main stenosis, 20-30% LAD stenosis, patent ramus stent and 80% dominant circumflex stenosis. CT surgery was consulted due to patients multiple risk for PCI (see cath report). Patient examined this morning the bedside. Patient currently denies chest pain or pressure. She denies shortness of breath. Vital signs are stable. 08/05/2024 Patient examined this morning the bedside. Patient currently denies chest pain or pressure. She denies shortness of breath. Vital signs are stable. 08/06/2024 Patient examined this morning at bedside. Patient does report having an episode of chest pain yesterday. She is chest pain-free at the time of examination. She denies any shortness of breath. She has been up ambulating in the hallway this morning. She remains on IV heparin. PHYSICAL EXAM: VITAL SIGNS: Reviewed. GENERAL: Well-developed in no acute distress. HEENT: Head is normocephalic. Pupils are equal, round. Sclerae anicteric. Mucous membranes of the mouth are moist. Neck supple. No JVD or thyromegaly LUNGS: Respirations even and unlabored. Lungs essentially clear to auscultation bilaterally. HEART: Regular rate and rhythm. S1 and S2 heard. ABDOMEN: Soft. Nondistended. Nontender. EXTREMITIES: Normal range of motion. No clubbing or cyanosis. Peripheral pulses intact. No lower extremity edema. Right upper extremity with bruising noted. NEUROLOGIC: Awake and alert. Oriented x 3. ASSESSMENT: Chest pain Elevated troponins, flat, acute coronary event ruled out, likely secondary to recent cardiac catheterization Coronary artery disease, status post PCI of the ramus and also PTCA of the circumflex with inability to get a stent past the heavily calcified ostial circumflex angulation, July 30, 2024 S/p repeat cath revealing 40 to 50% left main stenosis, 20-30% LAD stenosis, patent ramus stent and 80% dominant circumflex stenosis, 08/03/24 Hypertension, not requiring medications for patient Diabetes, diet controlled per patient Anxiety Bipolar disorder Depression Obesity: BMI 37.7 Former nicotine dependence PLAN: Continue current cardiac medications Brilinta remains on hold secondary to pending CABG Continue IV heparin CT surgery following. Plan for CABG on Friday with Dr. Ortiz Further recommendations pending patient course Nurse practitioner note has been reviewed by physician. Signing provider agrees with the documented findings, assessment, and plan of care documented by [employer] PERSON as a scribe. Objective - Vital Signs Vital signs: Vital Signs Temp 97.9 F 08/06/24 08:00 Pulse 61 08/06/24 08:00 Resp 18 08/06/24 08:00 BP 102/50 08/06/24 08:00 Pulse Ox 97 08/06/24 08:00 FiO2 Intake & Output 08/05/24 08/06/24 08/06/24 18:59 06:59 18:59 Intake Total 921.789 368.739 Balance 921.789 368.739 Weight 105.1 kg Intake: IV 10 Invasive Line 2 10 Intake, IV Titration 73.789 128.739 Amount Heparin Sod,Pork in 0.45% 73.789 128.739 NaCl 25,000 unit In 0.45 % NaCl 1 250ml.bag @ 9.5 UNITS/KG/HR 9.994 mls/hr IV .Q24H [facility] Rx#: [id number] Oral 838 [id number] Other: Voiding Method Toilet Toilet Toilet # Voids 3 - Labs CBC & Chem 7: 08/06/24 06:14 08/06/24 06:14 Labs: Abnormal Lab Results - Last 24 Hours (Table) 08/05/24 08/05/24 08/05/24 Range/Units 11:42 15:08 15:37 RBC (3.80-5.40) m/uL Hgb (11.4-16.0) gm/dL Hct (34.0-46.0) % Plt Count (150-450) k/uL INR (<1.2) APTT 94.8 H (22.0-30.0) sec Sodium (137-145) mmol/L Glucose (74-99) mg/dL POC Glucose (mg/dL) 115 H (70-110) mg/dL Total Bilirubin (0.2-1.3) mg/dL AST (14-36) U/L ALT (4-34) U/L Alkaline Phosphatase (38-126) U/L Total Protein (6.3-8.2) g/dL Albumin (3.5-5.0) g/dL Ur Leukocyte Esterase Trace H (Negative) Urine WBC 11 H (0-5) /hpf Urine Bacteria Moderate H (None) /hpf Urine Mucus Rare H (None) /hpf 08/05/24 08/05/24 08/05/24 Range/Units 16:28 19:53 23:42 RBC (3.80-5.40) m/uL Hgb (11.4-16.0) gm/dL Hct (34.0-46.0) % Plt Count (150-450) k/uL INR (<1.2) APTT 77.0 H (22.0-30.0) sec Sodium (137-145) mmol/L Glucose (74-99) mg/dL POC Glucose (mg/dL) 156 H 144 H (70-110) mg/dL Total Bilirubin (0.2-1.3) mg/dL AST (14-36) U/L ALT (4-34) U/L Alkaline Phosphatase (38-126) U/L Total Protein (6.3-8.2) g/dL Albumin (3.5-5.0) g/dL Ur Leukocyte Esterase (Negative) Urine WBC (0-5) /hpf Urine Bacteria (None) /hpf Urine Mucus (None) /hpf 08/06/24 08/06/24 08/06/24 Range/Units 06:02 06:14 06:14 RBC 3.24 L (3.80-5.40) m/uL Hgb 9.8 L (11.4-16.0) gm/dL Hct 29.2 L (34.0-46.0) % Plt Count 117 L (150-450) k/uL INR 1.2 H (<1.2) APTT 76.5 H (22.0-30.0) sec Sodium (137-145) mmol/L Glucose (74-99) mg/dL POC Glucose (mg/dL) 138 H (70-110) mg/dL Total Bilirubin (0.2-1.3) mg/dL AST (14-36) U/L ALT (4-34) U/L Alkaline Phosphatase (38-126) U/L Total Protein (6.3-8.2) g/dL Albumin (3.5-5.0) g/dL Ur Leukocyte Esterase (Negative) Urine WBC (0-5) /hpf Urine Bacteria (None) /hpf Urine Mucus (None) /hpf 08/06/24 Range/Units 06:14 RBC (3.80-5.40) m/uL Hgb (11.4-16.0) gm/dL Hct (34.0-46.0) % Plt Count (150-450) k/uL INR (<1.2) APTT (22.0-30.0) sec Sodium 136 L (137-145) mmol/L Glucose 128 H (74-99) mg/dL POC Glucose (mg/dL) (70-110) mg/dL Total Bilirubin 1.8 H (0.2-1.3) mg/dL AST 49 H (14-36) U/L ALT 41 H (4-34) U/L Alkaline Phosphatase 165 H (38-126) U/L Total Protein 6.1 L (6.3-8.2) g/dL Albumin 3.2 L (3.5-5.0) g/dL Ur Leukocyte Esterase (Negative) Urine WBC (0-5) /hpf Urine Bacteria (None) /hpf Urine Mucus (None) /hpf Microbiology - Last 24 Hours (Table) 08/03/24 16:25 Nasal Screen MRSA/MSSA - Final Nasal Swab Staphylococcus aureus,Not MRSA
[2024-08-06 11:36] LABS: Glucose,Whole Blood 128 mg/dL (70-110)
[2024-08-06] MEDS: NICOTINE 14MG/24HR PATCH TRANSDERM SCH (11:54)
--- NOTE | 2024-08-06 14:18 | P.PN ---
Subjective Progress Note Date: 08/06/24 Patient is a 49-year-old female with past medical history significant for coronary artery disease with previous PCI/stenting, hypertension, hyperlipidemia, diet-controlled diabetes, previous tobacco dependence, chronic marijuana use. Not currently following with a PCP. Patient was recently hospitalized 07/29/2024 with unstable angina. The following day, underwent heart catheterization on 07/30/2024, multivessel coronary artery disease was noted. There was a stent placed to the ramus intermedius at this time. Inability, to stent the left circumflex artery. Transthoracic echocardiogram estimates left ventricular systolic function 55 to 60%, as well as, mild mitral and tricuspid regurgitation. Patient was discharged home on August. Returned to the emergency department the following day with severe substernal chest pain that occurred while watching TV. Chest pain radiated to left arm. Lasted approximately 10 minutes. Associated symptoms including shortness of breath, nausea, diaphoresis. Her did drive her to the emergency room. Patient brought back to the [facility] on 08/03/2024 multivessel coronary artery disease again noted including 40 to 50% left main stenosis, 20 to 30% LAD stenosis, patent stent to the ramus, and 80% dominant left circumflex stenosis. A cardiothoracic surgical consult was initiated. We are being asked to see this patient in pulmonary consultation in preparation for preoperative CABG. Chest CT done this admission did not show any acute pulmonary processes. Patient does have a smoking history approximately 1 pack/day smoker for 20 years. Quit smoking cigarettes 3 years ago and started vaping. Also smokes marijuana daily.. No diagnosed COPD, asthma, or other pre-existing pulmonary conditions. A bedside spirometry was performed, her FEV1 was reportedly 85% of predicted. Patient is currently sitting up in the bedside recliner, on room air, in no acute respiratory distress. SpO2 is 96%. No current chest pain. Most recent CBC from this morning: WBC count 5, hemoglobin 9.9, hematocrit 29.2, platelets 101,000. Most recent CMP from 08/03/2024: Sodium 137, potassium 4.4, chloride 110, serum bicarb 25, BUN 11, creatinine 0.79, glucose 139. LFTs mildly elevated. Serial troponins 0.045, 0.05, and 0.054 respectively. NT proBNP 291. STS score is being calculated. 08/06/2024, patient is being seen for a follow-up. The patient is doing well. No specific complaints. The the patient remains on IV heparin. She is free of any chest pain for now. She did have an episode of chest pain yesterday.. No cardiac arrhythmias. No hemodynamic instability. Respiratory status is also stable. The patient has no specific complaints. Blood work from today shows a white cell count of 5.6, hemoglobin 9.8 which is stable compared to yesterday and a platelet count of 117, stable. BUN is 13 with a creatinine of 0.8 and sodium levels at 136. LFTs were noted, the numbers are improving. UA is negative. Objective - Vital Signs Vital signs: Vital Signs Temp 97.9 F 08/06/24 08:00 Pulse 61 08/06/24 08:00 Resp 18 08/06/24 08:00 BP 102/50 08/06/24 08:00 Pulse Ox 97 08/06/24 08:00 FiO2 Intake & Output 08/05/24 08/06/24 08/06/24 18:59 06:59 18:59 Intake Total 921.789 368.739 Balance 921.789 368.739 Weight 105.1 kg Intake: IV 10 Invasive Line 2 10 Intake, IV Titration 73.789 128.739 Amount Heparin Sod,Pork in 0.45% 73.789 128.739 NaCl 25,000 unit In 0.45 % NaCl 1 250ml.bag @ 9.5 UNITS/KG/HR 9.994 mls/hr IV .Q24H [facility] Rx#: [id number] Oral 838 240 Other: Voiding Method Toilet Toilet Toilet # Voids 3 - Exam Normal physical exam GENERAL EXAM: Alert, 49-year-old obese female sitting in bedside recliner, comfortable in no apparent distress. HEAD: Normocephalic and atraumatic EYES: Normal reaction of pupils, equal size. NOSE: Clear with pink turbinates. THROAT: No erythema or exudates. NECK: No masses, no JVD. CHEST: No chest wall deformity. LUNGS: Equal air entry with no crackles, wheeze, rhonchi or dullness. On room air. SpO2 96%. No conversational dyspnea or accessory muscle use.. CVS: S1 and S2 normal with grade 2 systolic murmur, regular rhythm. No other extra heart sounds ABDOMEN: No hepatosplenomegaly, active bowel sounds, no guarding or rigidity. SPINE: No scoliosis or deformity SKIN: No rashes. Right forearm ecchymosis CENTRAL NERVOUS SYSTEM: No focal deficits, tone is normal in all 4 extremities. EXTREMITIES: There is no peripheral edema, clubbing, or cyanosis. Peripheral pulses are intact. - Labs CBC & Chem 7: 08/06/24 06:14 08/06/24 06:14 Labs: Abnormal Lab Results - Last 24 Hours (Table) 08/05/24 08/05/24 08/05/24 Range/Units 11:42 15:08 15:37 RBC (3.80-5.40) m/uL Hgb (11.4-16.0) gm/dL Hct (34.0-46.0) % Plt Count (150-450) k/uL INR (<1.2) APTT 94.8 H (22.0-30.0) sec Sodium (137-145) mmol/L Glucose (74-99) mg/dL POC Glucose (mg/dL) 115 H (70-110) mg/dL Total Bilirubin (0.2-1.3) mg/dL AST (14-36) U/L ALT (4-34) U/L Alkaline Phosphatase (38-126) U/L Total Protein (6.3-8.2) g/dL Albumin (3.5-5.0) g/dL Ur Leukocyte Esterase Trace H (Negative) Urine WBC 11 H (0-5) /hpf Urine Bacteria Moderate H (None) /hpf Urine Mucus Rare H (None) /hpf 08/05/24 08/05/24 08/05/24 Range/Units 16:28 19:53 23:42 RBC (3.80-5.40) m/uL Hgb (11.4-16.0) gm/dL Hct (34.0-46.0) % Plt Count (150-450) k/uL INR (<1.2) APTT 77.0 H (22.0-30.0) sec Sodium (137-145) mmol/L Glucose (74-99) mg/dL POC Glucose (mg/dL) 156 H 144 H (70-110) mg/dL Total Bilirubin (0.2-1.3) mg/dL AST (14-36) U/L ALT (4-34) U/L Alkaline Phosphatase (38-126) U/L Total Protein (6.3-8.2) g/dL Albumin (3.5-5.0) g/dL Ur Leukocyte Esterase (Negative) Urine WBC (0-5) /hpf Urine Bacteria (None) /hpf Urine Mucus (None) /hpf 08/06/24 08/06/24 08/06/24 Range/Units 06:02 06:14 06:14 RBC 3.24 L (3.80-5.40) m/uL Hgb 9.8 L (11.4-16.0) gm/dL Hct 29.2 L (34.0-46.0) % Plt Count 117 L (150-450) k/uL INR 1.2 H (<1.2) APTT 76.5 H (22.0-30.0) sec Sodium (137-145) mmol/L Glucose (74-99) mg/dL POC Glucose (mg/dL) 138 H (70-110) mg/dL Total Bilirubin (0.2-1.3) mg/dL AST (14-36) U/L ALT (4-34) U/L Alkaline Phosphatase (38-126) U/L Total Protein (6.3-8.2) g/dL Albumin (3.5-5.0) g/dL Ur Leukocyte Esterase (Negative) Urine WBC (0-5) /hpf Urine Bacteria (None) /hpf Urine Mucus (None) /hpf 08/06/24 08/06/24 Range/Units 06:14 11:31 RBC (3.80-5.40) m/uL Hgb (11.4-16.0) gm/dL Hct (34.0-46.0) % Plt Count (150-450) k/uL INR (<1.2) APTT (22.0-30.0) sec Sodium 136 L (137-145) mmol/L Glucose 128 H (74-99) mg/dL POC Glucose (mg/dL) 128 H (70-110) mg/dL Total Bilirubin 1.8 H (0.2-1.3) mg/dL AST 49 H (14-36) U/L ALT 41 H (4-34) U/L Alkaline Phosphatase 165 H (38-126) U/L Total Protein 6.1 L (6.3-8.2) g/dL Albumin 3.2 L (3.5-5.0) g/dL Ur Leukocyte Esterase (Negative) Urine WBC (0-5) /hpf Urine Bacteria (None) /hpf Urine Mucus (None) /hpf Microbiology - Last 24 Hours (Table) 08/03/24 16:25 Nasal Screen MRSA/MSSA - Final Nasal Swab Staphylococcus aureus,Not MRSA Assessment and Plan Assessment: Multivessel coronary artery disease, with recent PCI/stenting to the ramus intermedius on 07/30/2024. Inability to stent left circumflex artery during the procedure. Patient is being worked up for surgical revascularization. Unstable angina Bicytopenia, normocytic/normochromic anemia and thrombocytopenia History of hypertension History of hyperlipidemia Morbid obesity, with a BMI of 41.1 kg/m Former tobacco dependence, [id number] history, quit smoking cigarettes 3 years ago, still vapes Chronic marijuana smoker Bilateral carotid artery stenosis, left ICA carotid artery stenosis greater than 70% and right ICA carotid stenosis less than 50%, clinically asymptomatic Plan: Continue IV heparin Patient is currently free of any chest pain tentative off-pump CABG planned for 08/09/2024 Bedside spirometry FEV1/FVC ratio 81%; FEV1 2.3 L or 85% of predicted. Smoking cessation counseling performed Brilinta is on hold She is on room air oxygen. CAT scan of the chest was reviewed and there was no significant pulmonary abnormalities. No evidence of any consolidation or airspace disease. No evidence of any nodules. There is hepatocellular disease and the patient has long history of alcoholism and mild splenomegaly and a 1 cm splenic lesion which is probably a cyst. Will be glad to follow-up this patient's course during her current hospital stay. She is currently on IV heparin which will be kept unchanged. She is tentatively scheduled to undergo surgery on 08/09/2024.
[2024-08-06 16:03] LABS: Glucose,Whole Blood 154 mg/dL (70-110)
[2024-08-06 20:44] LABS: Glucose,Whole Blood 132 mg/dL (70-110)
[2024-08-06] MEDS: NITROGLYCERIN SL TABS 0.4 MG TAB SUBLINGUAL PRN (20:48)
[2024-08-07 05:54] LABS: Glucose,Whole Blood 141 mg/dL (70-110)
--- NOTE | 2024-08-07 07:25 | P.PN ---
Subjective Progress Note Date: 08/07/24 Principal diagnosis: Coronary artery disease, normocytic, normochromic anemia, thrombocytopenia, left ICA stenosis greater than 70%, mild splenomegaly on CT of the chest, borderline normal in size on ultrasound. History of hypertension, diet-controlled diabetes, bipolar disorder with history of suicidal ideation, previous tobacco cessation with recent cessation from vaping, marijuana use, history of EtOH abuse, chronic transaminitis The patient was seen and examined this morning sitting in recliner in her room on the cardiac stepdown unit in no acute distress. She does admit to a rough night, she states she had some chest pain last night, currently has no chest pain or shortness of breath. Anticipate coronary artery bypass surgery on Friday with Dr. Ortiz. Patient has no new questions regarding surgery. Continues to be on room air with oxygen saturation in the high 90s, able to achieve 1500 mL on incentive spirometry. Remains in sinus rhythm, hemodynamically stable. No other new concerns. Objective - Vital Signs Vital signs: Vital Signs Temp 98.5 F 08/06/24 20:00 Pulse 69 08/07/24 04:00 Resp 16 08/07/24 04:00 BP 101/70 08/07/24 04:00 Pulse Ox 99 08/07/24 04:00 FiO2 Intake & Output 08/06/24 08/07/24 08/07/24 18:59 06:59 18:59 Intake Total 1186.085 780 Balance 1186.085 780 Weight 105.8 kg Intake: Intake, IV Titration 166.085 Amount Heparin Sod,Pork in 0.45% 166.085 NaCl 25,000 unit In 0.45 % NaCl 1 250ml.bag @ 9.5 UNITS/KG/HR 9.994 mls/hr IV .Q24H [facility] Rx#: [id number] Oral [id number] Other: Voiding Method Toilet Toilet # Voids 2 - Exam CONSTITUTIONAL: Appears comfortable, cooperative, no acute distress RESPIRATORY: Lungs sounds diminished in the bases bilaterally. Respirations even, nonlabored. Currently on room air with oxygen saturation 99%. Able to achieve 1500 mL on incentive spirometry. Strong cough. CARDIOVASCULAR: S1, S2 present. Regular rate and rhythm, sinus rhythm on telemetry. Palpable peripheral pulses bilaterally. No edema present. No calf pain or tenderness noted GASTROINTESTINAL: Abdomen soft, nontender, nondistended. Active bowel sounds present 4 quadrants. Tolerating diet. Positive bowel movement GENITOURINARY: Continues to void INTEGUMENTARY: Skin is warm and dry with evidence of good perfusion NEUROLOGIC: Cranial nerves II through XII intact MUSKULOSKELETAL: Able to move all extremities, strength equal bilaterally, gait normal PSYCHIATRIC: Alert and oriented to person place and time, appropriate affect, intact judgment and insight - Allied health notes Allied health notes reviewed: nursing - Labs CBC & Chem 7: 08/06/24 06:14 08/06/24 06:14 Labs: Abnormal Lab Results - Last 24 Hours (Table) 08/06/24 08/06/24 08/06/24 Range/Units 06:14 11:31 15:56 Sodium 136 L (137-145) mmol/L Glucose 128 H (74-99) mg/dL POC Glucose (mg/dL) 128 H 154 H (70-110) mg/dL Total Bilirubin 1.8 H (0.2-1.3) mg/dL AST 49 H (14-36) U/L ALT 41 H (4-34) U/L Alkaline Phosphatase 165 H (38-126) U/L Total Protein 6.1 L (6.3-8.2) g/dL Albumin 3.2 L (3.5-5.0) g/dL 08/06/24 08/07/24 Range/Units 20:26 05:39 Sodium (137-145) mmol/L Glucose (74-99) mg/dL POC Glucose (mg/dL) 132 H 141 H (70-110) mg/dL Total Bilirubin (0.2-1.3) mg/dL AST (14-36) U/L ALT (4-34) U/L Alkaline Phosphatase (38-126) U/L Total Protein (6.3-8.2) g/dL Albumin (3.5-5.0) g/dL Microbiology - Last 24 Hours (Table) 08/05/24 15:08 Urine Culture - Preliminary Urine,Voided Gram Neg Bacilli Assessment and Plan Assessment: Coronary artery disease status post recent stent Chest pain secondary to above Preserved left ventricular systolic function, EF 55-60%, mild MR, TR Normocytic, normochromic anemia, iron studies normal Thrombocytopenia Left ICA stenosis greater than 70% Mild splenomegaly on CT of the chest, borderline normal in size on ultrasound History of hypertension Diet-controlled diabetes, hemoglobin A1c 5.8% Bipolar disorder, history of suicidal ideation Previous tobacco cessation with recent cessation from vaping, preoperative FEV1 85% of predicted Marijuana use History of EtOH abuse Chronic transaminitis, increased echogenicity of the liver consistent with fatty liver and ultrasound Plan: Continue to maximize medical management with aspirin, statin, Zetia and beta- lopez. Continue to hold Brilinta, last dose 08/03/24. Recommend Aggrastat due to recent coronary stent, decision per cardiology Continue preoperative teaching The importance of risk modification including smoking marijuana and vaping cessation reinforced Increase activity as tolerated Encourage incentive spirometry use Medical management of other comorbidities per primary care and cardiology More recommendations to follow
[2024-08-07] MEDS: TIROFIBAN 12.5MG-250ML NS 250 ML IV SCH (09:17)
--- NOTE | 2024-08-07 09:29 | P.PN ---
Subjective Progress Note Date: 08/06/24 This is a pleasant 49 years old female who was recently discharged from the hospital on 08/01 after she had cardiac cath. Patient presents because of chest pain thought secondary to unstable angina with negative troponins. She underwent left heart catheterization 07/30/2024 showing CAD i with 20-30% distal left main stenosis, LAD 20-30% stenosis, ramus 90% stenosis, ostial circumflex 99% stenosis, status post PCI of the ramus, status post PTCA circumflex. She was started on aspirin and Brilinta. After discharge patient could not fill up her prescription because it was a long weekend holiday for . She presents this time because of chest pain that lasted about 15 minutes. Patient currently denies chest pain no dyspnea. No coughing No other /GI symptoms. Earlier she had nausea which is resolved now. No abdominal pain vomiting diarrhea. No headache dizziness weakness or numbness She smokes cigarettes and states she quit smoking today without specification. Nicotine patch offered but she declines. She drinks alcohol occasionally. No illicit drugs. Her idea man is Dr. Ogden that she intends to follow-up in 1 week. She states she has no PCP but she intends to find 1. Hemodynamically stable Labs showing WBC 3.7 and platelet count 9.7. Liver enzymes mildly elevated. Troponin are elevated 0.4 and 0.5 and 0.5 D-dimer negative at 0.55 proBNP is 291 Amylase lipase negative Chest x-ray is negative for acute process EKG showing sinus bradycardia at [address]-T changes Upper extremity duplex of the forearm was negative. 08/04/2024 Patient is seen and evaluated in follow-up today currently undergoing stress test with cardiology following. Patient continues to report chest pain and chest discomfort with shortness of breath with exertion. Patient being followed by cardiothoracic surgery undergoing workup for possible CABG. CT chest is ordered and pending as well. Patient is afebrile with no worsening shortness of breath or palpitations noted. Patient denies nausea or vomiting and was currently n.p.o. for the stress test this morning. 08/05/2024 Patient is seen and evaluated in follow-up this morning currently undergoing preop workup with CT surgery and tentatively scheduled for off-pump intervention on 08/09/[address] Ortiz. Patient reports currently her chest pain is under control although has not been up and moving much other to the bathroom and back. Patient encouraged to increase activity with frequent walks and also continue with the use of the incentive spirometer and further testing per CT surgery. Patient reports she did have an episode of loose stool this morning and have ordered as needed Imodium. Patient is afebrile with no reports of chest pain, shortness of breath, or palpitations at this time. Will follow-up on serial labs and continue to monitor closely until surgery. Patient to continue on 3 S. per protocol 08/06/2024 Patient is seen in follow-up today awaiting off-pump intervention on 08/09/[address] Ortiz. Patient reports occasionally having s ome anxiety about the overall surgery although continues to wish to proceed with surgical intervention to improve quality of life. Patient reports she continues to have intermittent episodes of chest pain and heaviness. Patient denies any further diarrhea reported it was 1 isolated incident and tolerating diet. Patient remains on room air with no reports of shortness of breath. at the bedside with questions and concerns that were answered Review of systems: Constitutional: No reports of fatigue, fever, or chills reports occasionally feeling anxious Cardiovascular: reports of continued chest pain, denies palpitations Respiratory: No reports of shortness of breath or cough other than with exertion GI: No reports of nausea, vomiting, reports no further diarrhea noted, : No reports of dysuria or retention Neurovascular: No reports of weakness or numbness All medications have been reviewed Physical exam: GENERAL: The patient is alert and oriented x3, not in any acute distress. Well developed, well nourished. Mildly anxious at times. Morbidly obese HEENT: Pupils are round and equally reacting to light. EOMI. No scleral icterus. No conjunctival pallor. Normocephalic, atraumatic. No pharyngeal erythema. No thyromegaly. CARDIOVASCULAR: S1 and S2 present. No murmurs, rubs, or gallops. PULMONARY: Chest is clear to auscultation, no wheezing , no crackles. ABDOMEN: Soft, nontender, nondistended, normoactive bowel sounds. No palpable organomegaly. MUSCULOSKELETAL: No joint swelling or deformity. EXTREMITIES: No cyanosis, clubbing, or pedal edema. Ecchymosis of the right forearm on the medial side. NEUROLOGICAL: Gross neurological examination did not reveal any focal deficits. SKIN: No rashes. no petechiae. Assessment: Chest pain with mildly elevated troponin and review of recent stent placement to ramus branch and PTCA circumflex. Related to her unstable angina. Currently awaiting a stress test and undergoing further workup for possible triple-vessel disease with CT surgery. Undergoing further workup for off-pump vascularization on 08/09/2024 Nonadherence to therapy because it was holiday and she could not follow-up her prescription from the pharmacy Mild transaminitis Mild bicytopenia with leukopenia and thrombocytopenia Hypertension Diabetes Morbid obesity with a BMI of 41.1 Nicotine dependence with vaping Osteoarthritis History of kidney stones GI prophylaxis DVT prophylaxis Full code Plan: Continue with cardiology and CT surgery following. Patient underwent repeat cardiac catheterization and given her high risk factors and continued chest pain CT surgery consulted and undergoing possible triple-vessel disease intervention. Currently undergoing further cardiothoracic workup Follow-up on repeat labs and replace electrolytes per protocol Provide resources for outpatient follow-up to establish with a primary care provider. Patient reports she was a patient of Dr. 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 Continue to encourage complete smoking and vaping cessation Per CT surgery patient will continue to be hospitalized and tentatively scheduled for off-pump vascularization with Dr. Ortiz on 08/09/2024 Continue telemetry monitoring and continue on 3 S. per protocol. The impression and plan of care has been dictated by Nurse Larry Prac titioner as directed. Dr. Heriberto MD I have performed a history and examination and MDM of this patient, discussed the same with the dictator, and agree with the dictator's assessment and plan as written ,documented as a scribe. Based on total visit time, I have performed more than 50% of the visit. Currently undergoing stress test with cardiology following. Objective - Vital Signs Vital signs: Vital Signs Temp 98.2 F 08/06/24 03:21 Pulse 69 08/06/24 03:21 Resp 18 08/06/24 03:21 BP 102/65 08/06/24 03:21 Pulse Ox 100 08/06/24 03:21 FiO2 Intake & Output 08/05/24 08/06/24 08/06/24 18:59 06:59 18:59 Intake Total 921.789 128.739 Balance 921.789 128.739 Weight 105.1 kg Intake: IV 10 Invasive Line 2 10 Intake, IV Titration 73.789 128.739 Amount Heparin Sod,Pork in 0.45% 73.789 128.739 NaCl 25,000 unit In 0.45 % NaCl 1 250ml.bag @ 9.5 UNITS/KG/HR 9.994 mls/hr IV .Q24H [facility] Rx#: [id number] Oral 838 Other: Voiding Method Toilet Toilet # Voids 3 - Labs CBC & Chem 7: 08/06/24 06:14 08/06/24 06:14 Labs: Abnormal Lab Results - Last 24 Hours (Table) 08/05/24 08/05/24 08/05/24 Range/Units 11:42 15:08 15:37 RBC (3.80-5.40) m/uL Hgb (11.4-16.0) gm/dL Hct (34.0-46.0) % Plt Count (150-450) k/uL INR (<1.2) APTT 94.8 H (22.0-30.0) sec Sodium (137-145) mmol/L Glucose (74-99) mg/dL POC Glucose (mg/dL) 115 H (70-110) mg/dL Total Bilirubin (0.2-1.3) mg/dL AST (14-36) U/L ALT (4-34) U/L Alkaline Phosphatase (38-126) U/L Total Protein (6.3-8.2) g/dL Albumin (3.5-5.0) g/dL Ur Leukocyte Esterase Trace H (Negative) Urine WBC 11 H (0-5) /hpf Urine Bacteria Moderate H (None) /hpf Urine Mucus Rare H (None) /hpf 08/05/24 08/05/24 08/05/24 Range/Units 16:28 19:53 23:42 RBC (3.80-5.40) m/uL Hgb (11.4-16.0) gm/dL Hct (34.0-46.0) % Plt Count (150-450) k/uL INR (<1.2) APTT 77.0 H (22.0-30.0) sec Sodium (137-145) mmol/L Glucose (74-99) mg/dL POC Glucose (mg/dL) 156 H 144 H (70-110) mg/dL Total Bilirubin (0.2-1.3) mg/dL AST (14-36) U/L ALT (4-34) U/L Alkaline Phosphatase (38-126) U/L Total Protein (6.3-8.2) g/dL Albumin (3.5-5.0) g/dL Ur Leukocyte Esterase (Negative) Urine WBC (0-5) /hpf Urine Bacteria (None) /hpf Urine Mucus (None) /hpf 08/06/24 08/06/24 08/06/24 Range/Units 06:02 06:14 06:14 RBC 3.24 L (3.80-5.40) m/uL Hgb 9.8 L (11.4-16.0) gm/dL Hct 29.2 L (34.0-46.0) % Plt Count 117 L (150-450) k/uL INR 1.2 H (<1.2) APTT 76.5 H (22.0-30.0) sec Sodium (137-145) mmol/L Glucose (74-99) mg/dL POC Glucose (mg/dL) 138 H (70-110) mg/dL Total Bilirubin (0.2-1.3) mg/dL AST (14-36) U/L ALT (4-34) U/L Alkaline Phosphatase (38-126) U/L Total Protein (6.3-8.2) g/dL Albumin (3.5-5.0) g/dL Ur Leukocyte Esterase (Negative) Urine WBC (0-5) /hpf Urine Bacteria (None) /hpf Urine Mucus (None) /hpf 08/06/24 Range/Units 06:14 RBC (3.80-5.40) m/uL Hgb (11.4-16.0) gm/dL Hct (34.0-46.0) % Plt Count (150-450) k/uL INR (<1.2) APTT (22.0-30.0) sec Sodium 136 L (137-145) mmol/L Glucose 128 H (74-99) mg/dL POC Glucose (mg/dL) (70-110) mg/dL Total Bilirubin 1.8 H (0.2-1.3) mg/dL AST 49 H (14-36) U/L ALT 41 H (4-34) U/L Alkaline Phosphatase 165 H (38-126) U/L Total Protein 6.1 L (6.3-8.2) g/dL Albumin 3.2 L (3.5-5.0) g/dL Ur Leukocyte Esterase (Negative) Urine WBC (0-5) /hpf Urine Bacteria (None) /hpf Urine Mucus (None) /hpf Microbiology - Last 24 Hours (Table) 08/03/24 16:25 Nasal Screen MRSA/MSSA - Final Nasal Swab Staphylococcus aureus,Not MRSA
[2024-08-07 11:28] LABS: Glucose,Whole Blood 94 mg/dL (70-110)
--- NOTE | 2024-08-07 12:55 | P.PN ---
Subjective Progress Note Date: 08/07/24 Patient is a 49-year-old female with past medical history significant for coronary artery disease with previous PCI/stenting, hypertension, hyperlipidemia, diet-controlled diabetes, previous tobacco dependence, chronic marijuana use. Not currently following with a PCP. Patient was recently hospitalized 07/29/2024 with unstable angina. The following day, underwent heart catheterization on 07/30/2024, multivessel coronary artery disease was noted. There was a stent placed to the ramus intermedius at this time. Inability, to stent the left circumflex artery. Transthoracic echocardiogram estimates left ventricular systolic function 55 to 60%, as well as, mild mitral and tricuspid regurgitation. Patient was discharged home on August. Returned to the emergency department the following day with severe substernal chest pain that occurred while watching TV. Chest pain radiated to left arm. Lasted approximately 10 minutes. Associated symptoms including shortness of breath, nausea, diaphoresis. Her did drive her to the emergency room. Patient brought back to the [facility] on 08/03/2024 multivessel coronary artery disease again noted including 40 to 50% left main stenosis, 20 to 30% LAD stenosis, patent stent to the ramus, and 80% dominant left circumflex stenosis. A cardiothoracic surgical consult was initiated. We are being asked to see this patient in pulmonary consultation in preparation for preoperative CABG. Chest CT done this admission did not show any acute pulmonary processes. Patient does have a smoking history approximately 1 pack/day smoker for 20 years. Quit smoking cigarettes 3 years ago and started vaping. Also smokes marijuana daily.. No diagnosed COPD, asthma, or other pre-existing pulmonary conditions. A bedside spirometry was performed, her FEV1 was reportedly 85% of predicted. Patient is currently sitting up in the bedside recliner, on room air, in no acute respiratory distress. SpO2 is 96%. No current chest pain. Most recent CBC from this morning: WBC count 5, hemoglobin 9.9, hematocrit 29.2, platelets 101,000. Most recent CMP from 08/03/2024: Sodium 137, potassium 4.4, chloride 110, serum bicarb 25, BUN 11, creatinine 0.79, glucose 139. LFTs mildly elevated. Serial troponins 0.045, 0.05, and 0.054 respectively. NT proBNP 291. STS score is being calculated. 08/06/2024, patient is being seen for a follow-up. The patient is doing well. No specific complaints. The the patient remains on IV heparin. She is free of any chest pain for now. She did have an episode of chest pain yesterday.. No cardiac arrhythmias. No hemodynamic instability. Respiratory status is also stable. The patient has no specific complaints. Blood work from today shows a white cell count of 5.6, hemoglobin 9.8 which is stable compared to yesterday and a platelet count of 117, stable. BUN is 13 with a creatinine of 0.8 and sodium levels at 136. LFTs were noted, the numbers are improving. UA is negative. On 08/07/2024, the patient is doing well. No specific complaints. Overnight, she had some vague chest pain. Based on that, the patient was taken off IV heparin and patient was started on Aggrastat. She is free of chest pain for now. Hemodynamically stable. Remains on metoprolol 50 mg twice daily. Remains in aspirin. Labs from today are still pending. Room air oxygen. No other new complaints. Objective - Vital Signs Vital signs: Vital Signs Temp 98.9 F 08/07/24 07:42 Pulse 72 08/07/24 07:42 Resp 16 08/07/24 07:42 BP 119/59 08/07/24 07:42 Pulse Ox 99 08/07/24 07:42 FiO2 Intake & Output 08/06/24 08/07/24 08/07/24 18:59 06:59 18:59 Intake Total 1186.085 780 143.598 Balance 1186.085 780 143.598 Weight 105.8 kg Intake: Intake, IV Titration 166.085 143.598 Amount Heparin Sod,Pork in 0.45% 166.085 143.598 NaCl 25,000 unit In 0.45 % NaCl 1 250ml.bag @ 9.5 UNITS/KG/HR 9.994 mls/hr IV .Q24H [facility] Rx#: [id number] Oral 1020 780 Other: Voiding Method Toilet Toilet Toilet # Voids 2 - Exam Normal physical exam GENERAL EXAM: Alert, 49-year-old obese female sitting in bedside recliner, comfortable in no apparent distress. HEAD: Normocephalic and atraumatic EYES: Normal reaction of pupils, equal size. NOSE: Clear with pink turbinates. THROAT: No erythema or exudates. NECK: No masses, no JVD. CHEST: No chest wall deformity. LUNGS: Equal air entry with no crackles, wheeze, rhonchi or dullness. On room air. SpO2 96%. No conversational dyspnea or accessory muscle use.. CVS: S1 and S2 normal with grade 2 systolic murmur, regular rhythm. No other extra heart sounds ABDOMEN: No hepatosplenomegaly, active bowel sounds, no guarding or rigidity. SPINE: No scoliosis or deformity SKIN: No rashes. Right forearm ecchymosis CENTRAL NERVOUS SYSTEM: No focal deficits, tone is normal in all 4 extremities. EXTREMITIES: There is no peripheral edema, clubbing, or cyanosis. Peripheral pulses are intact. - Labs CBC & Chem 7: 08/06/24 06:14 08/06/24 06:14 Labs: Abnormal Lab Results - Last 24 Hours (Table) 08/06/24 08/06/24 08/06/24 Range/Units 11:31 15:56 20:26 APTT (22.0-30.0) sec POC Glucose (mg/dL) 128 H 154 H 132 H (70-110) mg/dL 08/07/24 08/07/24 Range/Units 05:39 06:33 APTT 77.2 H (22.0-30.0) sec POC Glucose (mg/dL) 141 H (70-110) mg/dL Microbiology - Last 24 Hours (Table) 08/05/24 15:08 Urine Culture - Preliminary Urine,Voided Gram Neg Bacilli Assessment and Plan Assessment: Multivessel coronary artery disease, with recent PCI/stenting to the ramus intermedius on 07/30/2024. Inability to stent left circumflex artery during the procedure. Patient is being worked up for surgical revascularization. Continues to have episodic chest pain and the patient is currently Aggrastat Unstable angina Bicytopenia, normocytic/normochromic anemia and thrombocytopenia History of hypertension History of hyperlipidemia Morbid obesity, with a BMI of 41.1 kg/m Former tobacco dependence, [id number] history, quit smoking cigarettes 3 years ago, still vapes Chronic marijuana smoker Bilateral carotid artery stenosis, left ICA carotid artery stenosis greater than 70% and right ICA carotid stenosis less than 50%, clinically asymptomatic Plan: Continue IV Aggrastat Patient is currently free of any chest pain tentative off-pump CABG planned for 08/09/2024 Bedside spirometry FEV1/FVC ratio 81%; FEV1 2.3 L or 85% of predicted. Smoking cessation counseling performed She is on room air oxygen. CAT scan of the chest was reviewed and there was no significant pulmonary abnormalities. No evidence of any consolidation or airspace disease. No evidence of any nodules. There is hepatocellular disease and the patient has long history of alcoholism and mild splenomegaly and a 1 cm splenic lesion which is probably a cyst. Will be glad to follow-up this patient's course during her current hospital stay. She is currently on IV heparin which will be kept unchanged. She is tentatively scheduled to undergo surgery on 08/09/2024.
--- NOTE | 2024-08-07 13:47 | P.PN ---
Subjective Progress Note Date: 08/07/24 Interval History: This is a pleasant 49 years old female who was recently discharged from the hospital on 08/01 after she had cardiac cath. Patient presents because of chest pain thought secondary to unstable angina with negative troponins. She underwent left heart catheterization 07/30/2024 showing CAD i with 20-30% distal left main stenosis, LAD 20-30% stenosis, ramus 90% stenosis, ostial circumflex 99% stenosis, status post PCI of the ramus, status post PTCA circumflex. She was started on aspirin and Brilinta. After discharge patient could not fill up her prescription because it was a long weekend holiday for . She presents this time because of chest pain that lasted about 15 minutes. Patient currently denies chest pain no dyspnea. No coughing No other /GI symptoms. Earlier she had nausea which is resolved now. No abdominal pain vomiting diarrhea. No headache dizziness weakness or numbness She smokes cigarettes and states she quit smoking today without specification. Nicotine patch offered but she declines. She drinks alcohol occasionally. No illicit drugs. Her textile designer is Dr. Ogden that she intends to follow-up in 1 week. She states she has no PCP but she intends to find 1. Hemodynamically stable Labs showing WBC 3.7 and platelet count 9.7. Liver enzymes mildly elevated. Troponin are elevated 0.4 and 0.5 and 0.5 D-dimer negative at 0.55 proBNP is 291 Amylase lipase negative Chest x-ray is negative for acute process EKG showing sinus bradycardia at [address]-T changes Upper extremity duplex of the forearm was negative. 08/04/2024 Patient is seen and evaluated in follow-up today currently undergoing stress prachi t with cardiology following. Patient continues to report chest pain and chest discomfort with shortness of breath with exertion. Patient being followed by cardiothoracic surgery undergoing workup for possible CABG. CT chest is ordered and pending as well. Patient is afebrile with no worsening shortness of breath or palpitations noted. Patient denies nausea or vomiting and was currently n.p.o. for the stress test this morning. 08/05/2024 Patient is seen and evaluated in follow-up this morning currently undergoing preop workup with CT surgery and tentatively scheduled for off-pump intervention on 08/09/[address] Ortiz. Patient reports currently her chest pain is under control although has not been up and moving much other to the bathroom and back. Patient encouraged to increase activity with frequent walks and also continue with the use of the incentive spirometer and further testing per CT surgery. Patient reports she did have an episode of loose stool this morning and have o rdered as needed Imodium. Patient is afebrile with no reports of chest pain, shortness of breath, or palpitations at this time. Will follow-up on serial labs and continue to monitor closely until surgery. Patient to continue on 3 S. per protocol 08/06/2024 Patient is seen in follow-up today awaiting off-pump intervention on 08/09/[address] Ortiz. Patient reports occasionally having some anxiety about the overall surgery although continues to wish to proceed with surgical intervention to improve quality of life. Patient reports she continues to have intermittent episodes of chest pain and heaviness. Patient denies any further diarrhea reported it was 1 isolated incident and tolerating diet. Patient remains on room air with no reports of shortness of breath. at the bedside with questions and concerns that were answered 08/07 Patient was seen and examined today. No issues overnight. Patient had just been overnight, patient was taken off IV heparin and started on Aggrastat. Chest pain currently resolved. Vital stable. No labs this morning. Assessment and plan: Chest pain with mildly elevated troponin and review of recent stent placement to ramus branch and PTCA circumflex. Related to her unstable angina. Currently awaiting a stress test and undergoing further workup for possible triple-vessel disease with CT surgery. Undergoing further workup for off-pump vascularization on 08/09/2024 Nonadherence to therapy because it was holiday and she could not follow-up her prescription from the pharmacy Mild transaminitis Mild bicytopenia with leukopenia and thrombocytopenia Hypertension Diabetes Morbid obesity with a BMI of 41.1 Nicotine dependence with vaping Osteoarthritis History of kidney stones Mild splenomegaly History of tobacco use History of marijuana use History of alcohol use GI prophylaxis DVT prophylaxis Full code Plan: Continue with cardiology and CT surgery following. Patient underwent repeat cardiac catheterization and given her high risk factors and continued chest pain CT surgery consulted and undergoing possible triple-vessel disease intervention. Currently undergoing further cardiothoracic workup Follow-up on repeat labs and replace electrolytes per protocol Provide resources for outpatient follow-up to establish with a primary care provider. Patient reports she was a patient of Dr. Marin previously although he relocated and difficult due to social issues and barriers with only having 1 flatbed driver in the home, patient is unable to make it to her appointments. Continue to encourage complete smoking and vaping cessation Per CT surgery patient will continue to be hospitalized and tentatively scheduled for off-pump vascularization with Dr. Ortiz on 08/09/2024 Continue telemetry monitoring and continue on 3 S. per protocol. Anticipate CABG on Friday. PHYSICAL EXAMINATION: GENERAL: The patient is A&O x3, NAD HEENT: EOMI, Sclerae anicteric, Moist Mucous membranes Neck: Supple, Non tender, No JVD PULMONARY: Equal breath souds B/L, No wheezing, No crackles. CARDIOVASCULAR: S1, S2 present. No murmurs, rubs, or gallops. ABDOMEN: Soft, nontender, nondistended, normoactive bowel sounds. No guarding or rebound tenderness. MUSCULOSKELETAL: No edema, No cyanosis. No clubbing. Normal ROM. Intact peripheral pulses. EXTREMITIES: No cyanosis, clubbing, or pedal edema. NEUROLOGICAL: CN 2-12 grossly intact. No FND Skin: No Rash REVIEW OF SYSTEMS: CONSTITUTIONAL: No fever or chills. CARDIOVASCULAR: No chest pain, palpitations or syncope. PULMONARY: No shortness of breath, no cough, sore throat. GASTROINTESTINAL: No nausea, vomiting, diarrhea, abdominal pain. : No Dysuria, urgency, frequency. Extremities: No edema. NEUROLOGICAL: No headaches, no weakness, or numbness Dictation was produced using [employer] dictation software. please excuse any grammatical, word or spelling errors. Objective - Vital Signs Vital signs: Vital Signs Temp 98.9 F 08/07/24 07:42 Pulse 60 08/07/24 11:23 Resp 17 08/07/24 11:23 BP 93/50 08/07/24 11:23 Pulse Ox 99 08/07/24 11:23 FiO2 Intake & Output 08/06/24 08/07/24 08/07/24 18:59 06:59 18:59 Intake Total 1186.085 780 143.598 Balance 1186.085 780 143.598 Weight 105.8 kg Intake: Intake, IV Titration 166.085 143.598 Amount Heparin Sod,Pork in 0.45% 166.085 143.598 NaCl 25,000 unit In 0.45 % NaCl 1 250ml.bag @ 9.5 UNITS/KG/HR 9.994 mls/hr IV .Q24H [facility] Rx#: [id number] Oral 1020 780 Other: Voiding Method Toilet Toilet Toilet # Voids 2 - Labs CBC & Chem 7: 08/06/24 06:14 08/06/24 06:14 Labs: Abnormal Lab Results - Last 24 Hours (Table) 08/06/24 08/06/24 08/07/24 Range/Units 15:56 20:26 05:39 APTT (22.0-30.0) sec POC Glucose (mg/dL) 154 H 132 H 141 H (70-110) mg/dL 08/07/24 Range/Units 06:33 APTT 77.2 H (22.0-30.0) sec POC Glucose (mg/dL) (70-110) mg/dL Microbiology - Last 24 Hours (Table) 08/05/24 15:08 Urine Culture - Preliminary Urine,Voided Gram Neg Bacilli
[2024-08-07 16:40] LABS: Glucose,Whole Blood 128 mg/dL (70-110)
--- NOTE | 2024-08-07 18:54 | P.PN ---
Subjective Progress Note Date: 08/07/24 HISTORY OF PRESENT ILLNESS: This is a 49-year-old female with a past medical history significant for co ronary artery disease, diabetes, hypertension, anxiety, bipolar disorder, and depression. Patient follows in the office with Dr. Ogden. We have been asked to see the patient in consultation for non-STEMI. Patient examined at the bedside in the emergency room. Patient was recently admitted for chest pain and underwent stress echocardiogram which came in to be abnormal. She underwent cardiac catheterization with Dr. Ogden on July 30, 2024 revealing 20 to 30% distal left main stenosis, LAD 20 to 30% stenosis, ramus 90% stenosis, ostial circumflex 99% stenosis. She underwent PCI of the ramus and also PTCA of the circumflex with inability to get a stent past the heavily calcified ostial circumflex angulation. Patient was discharged home in stable condition on Friday, August 01, 2024. The patient states she was feeling well at home. She states that yesterday she began to have pain in her right arm that radiated up into her arm. She also reports that she developed chest pain that went into her left arm, underneath her armpit, and her left shoulder blade. She decided to come to the emergency room for further evaluation. The patient does report having another episode of chest pain while in the ER around 2 AM. She received nitro at that time which relieved her pain. She denies having any episodes of chest pain since that time. The patient does report she was unable to get her prescriptions for her Brilinta on Friday when she was discharged. She states that she spoke with one of Dr. Zhang partners on the day of discharge who apparently told her it was okay to miss a day. Her last dose of Brilinta was Friday morning. DIAGNOSTICS: - EKG reveals sinus mechanism with nonspecific ST-T wave changes - Chest xray negative for acute process - Laboratory data: Troponin 0.045. 0.050. 0.054. - Current home cardiac medications include aspirin 81 mg daily, Lipitor 80 mg at night, metoprolol tartrate 25 mg twice a day, Brilinta 90 mg twice a day. - Most recent echocardiogram obtained in July 2024 revealed ejection fraction 55 to 60% with mild MR, mild TR 08/04/2024 Patient is s/p cardiac catheterization with Dr. Ogden revealing 40 to 50% left main stenosis, 20-30% LAD stenosis, patent ramus stent and 80% dominant circumflex stenosis. CT surgery was consulted due to patients multiple risk for PCI (see cath report). Patient examined this morning the bedside. Patient currently denies chest pain or pressure. She denies shortness of breath. Vital signs are stable. 08/05/2024 Patient examined this morning the bedside. Patient currently denies chest pain or pressure. She denies shortness of breath. Vital signs are stable. 08/06/2024 Patient examined this morning at bedside. Patient does report having an episode of chest pain yesterday. She is chest pain-free at the time of examination. She denies any shortness of breath. She has been up ambulating in the hallway this morning. She remains on IV heparin. 08/07/2024 Patient is doing well from cardiovascular standpoint with no concerns of hematoma or bleeding. Hemodynamically stable. PHYSICAL EXAM: VITAL SIGNS: Reviewed. GENERAL: Well-developed in no acute distress. HEENT: Head is normocephalic. Pupils are equal, round. Sclerae anicteric. Mucous membranes of the mouth are moist. Neck supple. No JVD or thyromegaly LUNGS: Respirations even and unlabored. Lungs essentially clear to auscultation bilaterally. HEART: Regular rate and rhythm. S1 and S2 heard. ABDOMEN: Soft. Nondistended. Nontender. EXTREMITIES: Normal range of motion. No clubbing or cyanosis. Peripheral pulses intact. No lower extremity edema. Right upper extremity with bruising noted. NEUROLOGIC: Awake and alert. Oriented x 3. ASSESSMENT: Chest pain Elevated troponins, flat, acute coronary event ruled out, likely secondary to recent cardiac catheterization Coronary artery disease, status post PCI of the ramus and also PTCA of the circumflex with inability to get a stent past the heavily calcified ostial circumflex angulation, July 30, 2024 S/p repeat cath revealing 40 to 50% left main stenosis, 20-30% LAD stenosis, patent ramus stent and 80% dominant circumflex stenosis, 08/03/24 Hypertension, not requiring medications for patient Diabetes, diet controlled per patient Anxiety Bipolar disorder Depression Obesity: BMI 37.7 Former nicotine dependence PLAN: Continue current cardiac medications Brilinta remains on hold secondary to pending CABG Discontinue IV heparin. Start Aggrenox instead as patient is not getting Brilinta. Continue aspirin CT surgery following. Plan for CABG on Friday with Dr. Ortiz Further recommendations pending patient course Objective - Vital Signs Vital signs: Vital Signs Temp 98.9 F 08/07/24 07:42 Pulse 70 08/07/24 15:44 Resp 17 08/07/24 15:44 BP 98/53 08/07/24 15:44 Pulse Ox 100 08/07/24 15:44 FiO2 Intake & Output 08/06/24 08/07/24 08/07/24 18:59 06:59 18:59 Intake Total 1186.085 780 383.598 Balance 1186.085 780 383.598 Weight 105.8 kg Intake: Intake, IV Titration 166.085 143.598 Amount Heparin Sod,Pork in 0.45% 166.085 143.598 NaCl 25,000 unit In 0.45 % NaCl 1 250ml.bag @ 9.5 UNITS/KG/HR 9.994 mls/hr IV .Q24H [facility] Rx#: [id number] Oral 1020 780 240 Other: Voiding Method Toilet Toilet Toilet # Voids 2 1 # Bowel Movements 1 - Labs CBC & Chem 7: 08/06/24 06:14 08/06/24 06:14 Labs: Abnormal Lab Results - Last 24 Hours (Table) 08/06/24 08/07/24 08/07/24 Range/Units 20:26 05:39 06:33 APTT 77.2 H (22.0-30.0) sec POC Glucose (mg/dL) 132 H 141 H (70-110) mg/dL 08/07/24 Range/Units 16:39 APTT (22.0-30.0) sec POC Glucose (mg/dL) 128 H (70-110) mg/dL Microbiology - Last 24 Hours (Table) 08/05/24 15:08 Urine Culture - Preliminary Urine,Voided Gram Neg Bacilli
[2024-08-07 20:43] LABS: Glucose,Whole Blood 182 mg/dL (70-110)
[2024-08-08 06:13] LABS: Glucose,Whole Blood 164 mg/dL (70-110)
[2024-08-08 06:17] LABS: Basophils % (A) 0 %; Eosinophils # (A) 0.2 k/uL (0-0.7); Eosinophils % (A) 5 %; HGB 9.5 gm/dL (11.4-16.0); Lymphocytes # (A) 1.4 k/uL (1.0-4.8); Lymphocytes % (A) 32 %; MCH 30.9 pg (25.0-35.0); MCV 90.6 fL (80.0-100.0); Monocytes # (A) 0.4 k/uL (0-1.0); Monocytes % (A) 9 %; Neutrophils # (A) 2.3 k/uL (1.3-7.7); Neutrophils % (A) 52 %; Platelet Count 100 k/uL (150-450); RBC 3.09 m/uL (3.80-5.40); RDW 15.3 % (11.5-15.5); WBC 4.5 k/uL (3.8-10.6)
[2024-08-08 06:33] LABS: ALT 33 U/L (4-34); AST 45 U/L (14-36); African American GFR (CKD) >90 (>60 ml/min/1.73 sqM); Alkaline Phosphatase 104 U/L (38-126); Anion Gap 6 mmol/L; Blood Urea Nitrogen 10 mg/dL (7-17); Calcium 8.2 mg/dL (8.4-10.2); Carbon Dioxide 25 mmol/L (22-30); Chloride 106 mmol/L (98-107); Glucose 143 mg/dL (74-99); Magnesium 1.5 mg/dL (1.6-2.3); Non-African American GFR(CKD) >90 (>60 ml/min/1.73 sqM); Potassium 3.9 mmol/L (3.5-5.1); Sodium 137 mmol/L (137-145); Total Bilirubin 2.4 mg/dL (0.2-1.3); Total Protein 5.9 g/dL (6.3-8.2)
[2024-08-08 07:02] LABS: INR 1.2 (<1.2); Partial Thromboplastin Time 26.8 sec (22.0-30.0); Prothrombin Time 12.5 sec (10.0-12.5)
--- NOTE | 2024-08-08 07:30 | P.PN ---
Subjective Progress Note Date: 08/08/24 Principal diagnosis: Coronary artery disease, normocytic, normochromic anemia, thrombocytopenia, left ICA stenosis greater than 70%, mild splenomegaly on CT of the chest, borderline normal in size on ultrasound. History of hypertension, diet-controlled diabetes, bipolar disorder with history of suicidal ideation, previous tobacco cessation with recent cessation from vaping, marijuana use, history of EtOH abuse, chronic transaminitis. MSSA nasal swab preop, Klebciella UTI preop The patient was seen and examined this morning sitting in bed in her room on the cardiac stepdown unit in no acute distress eating breakfast. She states she was completely exhausted yesterday and slept most of the day away, denies any current chest pain or shortness of breath. Anticipate coronary artery bypass surgery on Friday with Dr. Ortiz. Patient has no new questions regarding surgery. Continues to be on room air with oxygen saturation in the high 90s, able to achieve 1500 mL on incentive spirometry. Remains in sinus rhythm, hemodynamically stable. Due to recent stent heparin was stopped yesterday and Aggrastat was initiated. No other new concerns. Objective - Vital Signs Vital signs: Vital Signs Temp 98.1 F 08/08/24 04:00 Pulse 73 08/08/24 04:00 Resp 18 08/08/24 04:00 BP 102/52 08/08/24 04:00 Pulse Ox 98 08/08/24 04:00 FiO2 Intake & Output 08/07/24 08/08/24 08/08/24 18:59 06:59 18:59 Intake Total 383.598 540 Balance 383.598 540 Weight 105.8 kg Intake: Intake, IV Titration 143.598 Amount Heparin Sod,Pork in 0.45% 143.598 NaCl 25,000 unit In 0.45 % NaCl 1 250ml.bag @ 9.5 UNITS/KG/HR 9.994 mls/hr IV .Q24H [facility] Rx#: [id number] Oral 240 540 Other: Voiding Method Toilet Toilet # Voids 1 1 # Bowel Movements 1 - Exam CONSTITUTIONAL: Appears comfortable, cooperative, no acute distress RESPIRATORY: Lungs sounds diminished in the bases bilaterally. Respirations even, nonlabored. Currently on room air with oxygen saturation 98%. Able to achieve 1500 mL on incentive spirometry. Strong cough. CARDIOVASCULAR: S1, S2 present. Regular rate and rhythm, sinus rhythm on telemetry. Palpable peripheral pulses bilaterally. No edema present. No calf pain or tenderness noted GASTROINTESTINAL: Abdomen soft, nontender, nondistended. Active bowel sounds present 4 quadrants. Tolerating diet. Positive bowel movement 08/07 GENITOURINARY: Continues to void INTEGUMENTARY: Skin is warm and dry with evidence of good perfusion NEUROLOGIC: Cranial nerves II through XII intact MUSKULOSKELETAL: Able to move all extremities, strength equal bilaterally, gait normal PSYCHIATRIC: Alert and oriented to person place and time, appropriate affect, intact judgment and insight - Allied health notes Allied health notes reviewed: nursing - Labs CBC & Chem 7: 08/08/24 05:44 08/08/24 05:44 Labs: Abnormal Lab Results - Last 24 Hours (Table) 08/07/24 08/07/24 08/07/24 Range/Units 06:33 16:39 20:25 RBC (3.80-5.40) m/uL Hgb (11.4-16.0) gm/dL Hct (34.0-46.0) % Plt Count (150-450) k/uL INR (<1.2) APTT 77.2 H (22.0-30.0) sec Glucose (74-99) mg/dL POC Glucose (mg/dL) 128 H 182 H (70-110) mg/dL Calcium (8.4-10.2) mg/dL Magnesium (1.6-2.3) mg/dL Total Bilirubin (0.2-1.3) mg/dL AST (14-36) U/L Total Protein (6.3-8.2) g/dL Albumin (3.5-5.0) g/dL 08/08/24 08/08/24 08/08/24 Range/Units 05:44 05:44 05:44 RBC 3.09 L (3.80-5.40) m/uL Hgb 9.5 L (11.4-16.0) gm/dL Hct 28.0 L (34.0-46.0) % Plt Count 100 L (150-450) k/uL INR 1.2 H (<1.2) APTT (22.0-30.0) sec Glucose 143 H (74-99) mg/dL POC Glucose (mg/dL) (70-110) mg/dL Calcium 8.2 L (8.4-10.2) mg/dL Magnesium 1.5 L (1.6-2.3) mg/dL Total Bilirubin 2.4 H (0.2-1.3) mg/dL AST 45 H (14-36) U/L Total Protein 5.9 L (6.3-8.2) g/dL Albumin 3.0 L (3.5-5.0) g/dL 08/08/24 Range/Units 05:53 RBC (3.80-5.40) m/uL Hgb (11.4-16.0) gm/dL Hct (34.0-46.0) % Plt Count (150-450) k/uL INR (<1.2) APTT (22.0-30.0) sec Glucose (74-99) mg/dL POC Glucose (mg/dL) 164 H (70-110) mg/dL Calcium (8.4-10.2) mg/dL Magnesium (1.6-2.3) mg/dL Total Bilirubin (0.2-1.3) mg/dL AST (14-36) U/L Total Protein (6.3-8.2) g/dL Albumin (3.5-5.0) g/dL Microbiology - Last 24 Hours (Table) 08/05/24 15:08 Urine Culture - Final Urine,Voided Klebsiella pneumoniae Assessment and Plan Assessment: Coronary artery disease status post recent stent Chest pain secondary to above Preserved left ventricular systolic function, EF 55-60%, mild MR, TR Normocytic, normochromic anemia, iron studies normal Thrombocytopenia Left ICA stenosis greater than 70% Mild splenomegaly on CT of the chest, borderline normal in size on ultrasound History of hypertension Diet-controlled diabetes, hemoglobin A1c 5.8% Bipolar disorder, history of suicidal ideation Previous tobacco cessation with recent cessation from vaping, preoperative FEV1 85% of predicted Marijuana use History of EtOH abuse Chronic transaminitis, increased echogenicity of the liver consistent with fatty liver and ultrasound Plan: Continue to maximize medical management with aspirin, statin, Zetia and beta- lopez. Continue to hold Brilinta, last dose 08/03/24, continue Aggrastat due to recent coronary stent Continue mupirocin for nasal MSSA Will add 3 doses ancef IVPB due to urine culture positive for Klebsiella Continue preoperative teaching The importance of risk modification including smoking marijuana and vaping cessation reinforced Increase activity as tolerated Encourage incentive spirometry use Medical management of other comorbidities per primary care and cardiology Plan is for off pump myocardial revascularization with left internal mammary artery, endoscopic vein harvest, exclusion of the left atrial appendage by Dr. Ortiz tomorrow morning, 08/09/2024. Patient will be n.p.o. after midnight More recommendations to follow
[2024-08-08] MEDS: FOLIC ACID 1 MG TAB PO SCH (09:13)
[2024-08-08] MEDS: THIAMINE 100 MG TAB PO SCH (09:14)
[2024-08-08] MEDS: ALPRAZolam 0.25 MG TAB PO PRN (09:14)
[2024-08-08 11:19] LABS: Glucose,Whole Blood 111 mg/dL (70-110)
--- NOTE | 2024-08-08 11:29 | P.PN ---
Subjective Progress Note Date: 08/08/24 Patient is a 49-year-old female with past medical history significant for coronary artery disease with previous PCI/stenting, hypertension, hyperlipidemia, diet-controlled diabetes, previous tobacco dependence, chronic marijuana use. Not currently following with a PCP. Patient was recently hospitalized 07/29/2024 with unstable angina. The following day, underwent heart catheterization on 07/30/2024, multivessel coronary artery disease was noted. There was a stent placed to the ramus intermedius at this time. Inability, to stent the left circumflex artery. Transthoracic echocardiogram estimates left ventricular systolic function 55 to 60%, as well as, mild mitral and tricuspid regurgitation. Patient was discharged home on August. Returned to the emergency department the following day with severe substernal chest pain that occurred while watching TV. Chest pain radiated to left arm. Lasted approximately 10 minutes. Associated symptoms including shortness of breath, nausea, diaphoresis. Her did drive her to the emergency room. Patient brought back to the [facility] [employer] on 08/03/2024 multivessel coronary artery disease again noted including 40 to 50% left main stenosis, 20 to 30% LAD stenosis, patent stent to the ramus, and 80% dominant left circumflex stenosis. A cardiothoracic surgical consult was initiated. We are being asked to see this patient in pulmonary consultation in preparation for preoperative CABG. Chest CT done this admission did not show any acute pulmonary processes. Patient does have a smoking history approximately 1 pack/day smoker for 20 years. Quit smoking cigarettes 3 years ago and started vaping. Also smokes marijuana daily.. No diagnosed COPD, asthma, or other pre-existing pulmonary conditions. A bedside spirometry was performed, her FEV1 was reportedly 85% of predicted. Patient is currently sitting up in the bedside recliner, on room air, in no acute respiratory distress. SpO2 is 96%. No current chest pain. Most recent CBC from this morning: WBC count 5, hemoglobin 9.9, hematocrit 29.2, platelets 101,000. Most recent CMP from 08/03/2024: Sodium 137, potassium 4.4, chloride 110, serum bicarb 25, BUN 11, creatinine 0.79, glucose 139. LFTs mildly elevated. Serial troponins 0.045, 0.05, and 0.054 respectively. NT proBNP 291. STS score is being calculated. 08/06/2024, patient is being seen for a follow-up. The patient is doing well. No specific complaints. The the patient remains on IV heparin. She is free of any chest pain for now. She did have an episode of chest pain yesterday.. No cardiac arrhythmias. No hemodynamic instability. Respiratory status is also stable. The patient has no specific complaints. Blood work from today shows a white cell count of 5.6, hemoglobin 9.8 which is stable compared to yesterday and a platelet count of 117, stable. BUN is 13 with a creatinine of 0.8 and sodium levels at 136. LFTs were noted, the numbers are improving. UA is negative. On 08/07/2024, the patient is doing well. No specific complaints. Overnight, she had some vague chest pain. Based on that, the patient was taken off IV heparin and patient was started on Aggrastat. She is free of chest pain for now. Hemodynamically stable. Remains on metoprolol 50 mg twice daily. Remains in aspirin. Labs from today are still pending. Room air oxygen. No other new complaints. On 08/08/2024, the patient is free of any chest pain. The patient encountered some epistaxis while being on Aggrastat. This will be continued till midnight today and subsequent this will be stopped as the patient is getting ready for bypass surgery tomorrow. The white cell count is 4.5 with a hemoglobin 9.5 and a platelet count of 100. Sodium is at 137, potassium is at 3.9, BUN is 18 with a creatinine of 0.7. LFTs are also stable. No other significant events overnight. The patient is clinically and hemodynamically stable. Objective - Vital Signs Vital signs: Vital Signs Temp 97.9 F 08/08/24 09:04 Pulse 66 08/08/24 09:04 Resp 17 08/08/24 09:04 BP 110/68 08/08/24 09:04 Pulse Ox 98 08/08/24 09:04 FiO2 Intake & Output 08/07/24 08/08/24 08/08/24 18:59 06:59 18:59 Intake Total 383.598 540 236 Balance 383.598 540 236 Weight 105.8 kg Intake: Intake, IV Titration 143.598 Amount Heparin Sod,Pork in 0.45% 143.598 NaCl 25,000 unit In 0.45 % NaCl 1 250ml.bag @ 9.5 UNITS/KG/HR 9.994 mls/hr IV .Q24H [facility] Rx#: [id number] Oral 240 540 236 Other: Voiding Method Toilet Toilet # Voids 1 1 # Bowel Movements 1 - Exam Normal physical exam GENERAL EXAM: Alert, 49-year-old obese female sitting in bedside recliner, comfortable in no apparent distress. HEAD: Normocephalic and atraumatic EYES: Normal reaction of pupils, equal size. NOSE: Clear with pink turbinates. THROAT: No erythema or exudates. NECK: No masses, no JVD. CHEST: No chest wall deformity. LUNGS: Equal air entry with no crackles, wheeze, rhonchi or dullness. On room air. SpO2 96%. No conversational dyspnea or accessory muscle use.. CVS: S1 and S2 normal with grade 2 systolic murmur, regular rhythm. No other extra heart sounds ABDOMEN: No hepatosplenomegaly, active bowel sounds, no guarding or rigidity. SPINE: No scoliosis or deformity SKIN: No rashes. Right forearm ecchymosis CENTRAL NERVOUS SYSTEM: No focal deficits, tone is normal in all 4 extremities. EXTREMITIES: There is no peripheral edema, clubbing, or cyanosis. Peripheral pulses are intact. - Labs CBC & Chem 7: 08/08/24 05:44 08/08/24 05:44 Labs: Abnormal Lab Results - Last 24 Hours (Table) 08/07/24 08/07/24 08/08/24 Range/Units 16:39 20:25 05:44 RBC (3.80-5.40) m/uL Hgb (11.4-16.0) gm/dL Hct (34.0-46.0) % Plt Count (150-450) k/uL INR (<1.2) Glucose (74-99) mg/dL POC Glucose (mg/dL) 128 H 182 H (70-110) mg/dL Calcium (8.4-10.2) mg/dL Magnesium (1.6-2.3) mg/dL Total Bilirubin (0.2-1.3) mg/dL AST (14-36) U/L Total Protein (6.3-8.2) g/dL Albumin (3.5-5.0) g/dL Crossmatch See Detail 08/08/24 08/08/24 08/08/24 Range/Units 05:44 05:44 05:44 RBC 3.09 L (3.80-5.40) m/uL Hgb 9.5 L (11.4-16.0) gm/dL Hct 28.0 L (34.0-46.0) % Plt Count 100 L (150-450) k/uL INR 1.2 H (<1.2) Glucose 143 H (74-99) mg/dL POC Glucose (mg/dL) (70-110) mg/dL Calcium 8.2 L (8.4-10.2) mg/dL Magnesium 1.5 L (1.6-2.3) mg/dL Total Bilirubin 2.4 H (0.2-1.3) mg/dL AST 45 H (14-36) U/L Total Protein 5.9 L (6.3-8.2) g/dL Albumin 3.0 L (3.5-5.0) g/dL Crossmatch 08/08/24 Range/Units 05:53 RBC (3.80-5.40) m/uL Hgb (11.4-16.0) gm/dL Hct (34.0-46.0) % Plt Count (150-450) k/uL INR (<1.2) Glucose (74-99) mg/dL POC Glucose (mg/dL) 164 H (70-110) mg/dL Calcium (8.4-10.2) mg/dL Magnesium (1.6-2.3) mg/dL Total Bilirubin (0.2-1.3) mg/dL AST (14-36) U/L Total Protein (6.3-8.2) g/dL Albumin (3.5-5.0) g/dL Crossmatch Microbiology - Last 24 Hours (Table) 08/05/24 15:08 Urine Culture - Final Urine,Voided Klebsiella pneumoniae Assessment and Plan Assessment: Multivessel coronary artery disease, with recent PCI/stenting to the ramus intermedius on 07/30/2024. Inability to stent left circumflex artery during the procedure. Patient is being worked up for surgical revascularization. Continues to have episodic chest pain and the patient is currently Aggrastat, encountered some limited epistaxis controlled locally Unstable angina Bicytopenia, normocytic/normochromic anemia and thrombocytopenia History of hypertension History of hyperlipidemia Morbid obesity, with a BMI of 41.1 kg/m Former tobacco dependence, [id number] history, quit smoking cigarettes 3 years ago, still vapes Chronic marijuana smoker Bilateral carotid artery stenosis, left ICA carotid artery stenosis greater than 70% and right ICA carotid stenosis less than 50%, clinically asymptomatic Plan: Continue IV Aggrastat till midnight and then discontinue Monitor epistaxis Patient is currently free of any chest pain tentative off-pump CABG planned for 08/09/2024 Bedside spirometry FEV1/FVC ratio 81%; FEV1 2.3 L or 85% of predicted. Smoking cessation counseling performed She is on room air oxygen. CAT scan of the chest was reviewed and there was no significant pulmonary abnormalities. No evidence of any consolidation or airspace disease. No evidence of any nodules. There is hepatocellular disease and the patient has long history of alcoholism and mild splenomegaly and a 1 cm splenic lesion which is probably a cyst. Will be glad to follow-up this patient's course during her current hospital stay. She is currently on IV heparin which will be kept unchanged. She is tentatively scheduled to undergo surgery on 08/09/2024.
--- NOTE | 2024-08-08 15:44 | P.PN ---
Subjective Progress Note Date: 08/08/24 Interval History: This is a pleasant 49 years old female who was recently discharged from the hospital on 08/01 after she had cardiac cath. Patient presents because of chest pain thought secondary to unstable angina with negative troponins. She underwent left heart catheterization 07/30/2024 showing CAD i with 20-30% distal left main stenosis, LAD 20-30% stenosis, ramus 90% stenosis, ostial circumflex 99% stenosis, status post PCI of the ramus, status post PTCA circumflex. She was started on aspirin and Brilinta. After discharge patient could not fill up her prescription because it was a long weekend holiday for . She presents this time because of chest pain that lasted about 15 minutes. Patient currently denies chest pain no dyspnea. No coughing No other /GI symptoms. Earlier she had nausea which is resolved now. No abdominal pain vomiting diarrhea. No headache dizziness weakness or numbness She smokes cigarettes and states she quit smoking today without specification. Nicotine patch offered but she declines. She drinks alcohol occasionally. No illicit drugs. Her finance clerk is Dr. Ogden that she intends to follow-up in 1 week. She states she has no PCP but she intends to find 1. Hemodynamically stable Labs showing WBC 3.7 and platelet count 9.7. Liver enzymes mildly elevated. Troponin are elevated 0.4 and 0.5 and 0.5 D-dimer negative at 0.55 proBNP is 291 Amylase lipase negative Chest x-ray is negative for acute process EKG showing sinus bradycardia at [address]-T changes Upper extremity duplex of the forearm was negative. 08/04/2024 Patient is seen and evaluated in follow-up today currently undergoing stress prachi t with cardiology following. Patient continues to report chest pain and chest discomfort with shortness of breath with exertion. Patient being followed by cardiothoracic surgery undergoing workup for possible CABG. CT chest is ordered and pending as well. Patient is afebrile with no worsening shortness of breath or palpitations noted. Patient denies nausea or vomiting and was currently n.p.o. for the stress test this morning. 08/05/2024 Patient is seen and evaluated in follow-up this morning currently undergoing preop workup with CT surgery and tentatively scheduled for off-pump intervention on 08/09/[address] Ortiz. Patient reports currently her chest pain is under control although has not been up and moving much other to the bathroom and back. Patient encouraged to increase activity with frequent walks and also continue with the use of the incentive spirometer and further testing per CT surgery. Patient reports she did have an episode of loose stool this morning and have o rdered as needed Imodium. Patient is afebrile with no reports of chest pain, shortness of breath, or palpitations at this time. Will follow-up on serial labs and continue to monitor closely until surgery. Patient to continue on 3 S. per protocol 08/06/2024 Patient is seen in follow-up today awaiting off-pump intervention on 08/09/[address] Ortiz. Patient reports occasionally having some anxiety about the overall surgery although continues to wish to proceed with surgical intervention to improve quality of life. Patient reports she continues to have intermittent episodes of chest pain and heaviness. Patient denies any further diarrhea reported it was 1 isolated incident and tolerating diet. Patient remains on room air with no reports of shortness of breath. at the bedside with questions and concerns that were answered 08/07 Patient was seen and examined today. No issues overnight. Patient had just been overnight, patient was taken off IV heparin and started on Aggrastat. Chest pain currently resolved. Vital stable. No labs this morning. 08/08/2024--patient was seen and examined today. No further episodes of chest pain. Patient had some epistaxis earlier on Aggrastat, now resolved. Pulmonary following. Cardiac surgery following, plan for CABG tomorrow. Vital stable. Normal WBCs, hemoglobin 9.5, platelets 100. INR 1.2. Normal BUN/creatinine. Assessment and plan: Chest pain with mildly elevated troponin and review of recent stent placement to ramus branch and PTCA circumflex. Related to her unstable angina. Currently awaiting a stress test and undergoing further workup for possible triple-vessel disease with CT surgery. Undergoing further workup for off-pump vascularization on 08/09/2024 Nonadherence to therapy because it was holiday and she could not follow-up her prescription from the pharmacy Mild transaminitis Mild bicytopenia with leukopenia and thrombocytopenia Hypertension Diabetes Morbid obesity with a BMI of 41.1 Nicotine dependence with vaping Osteoarthritis History of kidney stones Mild splenomegaly History of tobacco use History of marijuana use History of alcohol use GI prophylaxis DVT prophylaxis Full code Plan: Continue with cardiology and CT surgery following. Patient underwent repeat cardiac catheterization and given her high risk factors and continued chest pain CT surgery consulted and undergoing possible triple-vessel disease intervention. Currently undergoing further cardiothoracic workup Follow-up on repeat labs and replace electrolytes per protocol Provide resources for outpatient follow-up to establish with a primary care provider. Patient reports she was a patient of Dr. 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 Continue to encourage complete smoking and vaping cessation Per CT surgery patient will continue to be hospitalized and tentatively scheduled for off-pump vascularization with Dr. Ortiz on 08/09/2024 Continue telemetry monitoring and continue on 3 S. per protocol. Anticipate CABG on Friday. PHYSICAL EXAMINATION: GENERAL: The patient is A&O x3, NAD HEENT: EOMI, Sclerae anicteric, Moist Mucous membranes Neck: Supple, Non tender, No JVD PULMONARY: Equal breath souds B/L, No wheezing, No crackles. CARDIOVASCULAR: S1, S2 present. No murmurs, rubs, or gallops. ABDOMEN: Soft, nontender, nondistended, normoactive bowel sounds. No guarding or rebound tenderness. MUSCULOSKELETAL: No edema, No cyanosis. No clubbing. Normal ROM. Intact peripheral pulses. EXTREMITIES: No cyanosis, clubbing, or pedal edema. NEUROLOGICAL: CN 2-12 grossly intact. No FND Skin: No Rash REVIEW OF SYSTEMS: CONSTITUTIONAL: No fever or chills. CARDIOVASCULAR: No chest pain, palpitations or syncope. PULMONARY: No shortness of breath, no cough, sore throat. GASTROINTESTINAL: No nausea, vomiting, diarrhea, abdominal pain. : No Dysuria, urgency, frequency. Extremities: No edema. NEUROLOGICAL: No headaches, no weakness, or numbness Dictation was produced using [employer] dictation software. please excuse any grammatical, word or spelling errors. Objective - Vital Signs Vital signs: Vital Signs Temp 97.9 F 08/08/24 09:04 Pulse 62 08/08/24 15:29 Resp 16 08/08/24 15:29 BP 103/59 08/08/24 15:29 Pulse Ox 98 08/08/24 15:29 FiO2 Intake & Output 08/07/24 08/08/2408/08/24 18:59 06:59 18:59 Intake Total 383.598 540 458 Balance 383.598 540 458 Weight 105.8 kg Intake: Intake, IV Titration 143.598 Amount Heparin Sod,Pork in 0.45% 143.598 NaCl 25,000 unit In 0.45 % NaCl 1 250ml.bag @ 9.5 UNITS/KG/HR 9.994 mls/hr IV .Q24H [facility] Rx#: [id number] Oral 240 540 458 Other: Voiding Method Toilet Toilet Toilet # Voids 1 1 1 # Bowel Movements 1 - Labs CBC & Chem 7: 08/08/24 05:44 08/08/24 05:44 Labs: Abnormal Lab Results - Last 24 Hours (Table) 08/07/24 08/07/24 08/08/24 Range/Units 16:39 20:25 05:44 RBC (3.80-5.40) m/uL Hgb (11.4-16.0) gm/dL Hct (34.0-46.0) % Plt Count (150-450) k/uL INR (<1.2) Glucose (74-99) mg/dL POC Glucose (mg/dL) 128 H 182 H (70-110) mg/dL Calcium (8.4-10.2) mg/dL Magnesium (1.6-2.3) mg/dL Total Bilirubin (0.2-1.3) mg/dL AST (14-36) U/L Total Protein (6.3-8.2) g/dL Albumin (3.5-5.0) g/dL Crossmatch See Detail 08/08/24 08/08/24 08/08/24 Range/Units 05:44 05:44 05:44 RBC 3.09 L (3.80-5.40) m/uL Hgb 9.5 L (11.4-16.0) gm/dL Hct 28.0 L (34.0-46.0) % Plt Count 100 L (150-450) k/uL INR 1.2 H (<1.2) Glucose 143 H (74-99) mg/dL POC Glucose (mg/dL) (70-110) mg/dL Calcium 8.2 L (8.4-10.2) mg/dL Magnesium 1.5 L (1.6-2.3) mg/dL Total Bilirubin 2.4 H (0.2-1.3) mg/dL AST 45 H (14-36) U/L Total Protein 5.9 L (6.3-8.2) g/dL Albumin 3.0 L (3.5-5.0) g/dL Crossmatch 08/08/24 08/08/24 Range/Units 05:53 11:18 RBC (3.80-5.40) m/uL Hgb (11.4-16.0) gm/dL Hct (34.0-46.0) % Plt Count (150-450) k/uL INR (<1.2) Glucose (74-99) mg/dL POC Glucose (mg/dL) 164 H 111 H (70-110) mg/dL Calcium (8.4-10.2) mg/dL Magnesium (1.6-2.3) mg/dL Total Bilirubin (0.2-1.3) mg/dL AST (14-36) U/L Total Protein (6.3-8.2) g/dL Albumin (3.5-5.0) g/dL Crossmatch Microbiology - Last 24 Hours (Table) 08/05/24 15:08 Urine Culture - Final Urine,Voided Klebsiella pneumoniae
[2024-08-08 16:19] LABS: Glucose,Whole Blood 146 mg/dL (70-110)
--- NOTE | 2024-08-08 18:41 | P.PN ---
Subjective Progress Note Date: 08/08/24 HISTORY OF PRESENT ILLNESS: This is a 49-year-old female with a past medical history significant for co ronary artery disease, diabetes, hypertension, anxiety, bipolar disorder, and depression. Patient follows in the office with Dr. Ogden. We have been asked to see the patient in consultation for non-STEMI. Patient examined at the bedside in the emergency room. Patient was recently admitted for chest pain and underwent stress echocardiogram which came in to be abnormal. She underwent cardiac catheterization with Dr. Ogden on July 30, 2024 revealing 20 to 30% distal left main stenosis, LAD 20 to 30% stenosis, ramus 90% stenosis, ostial circumflex 99% stenosis. She underwent PCI of the ramus and also PTCA of the circumflex with inability to get a stent past the heavily calcified ostial circumflex angulation. Patient was discharged home in stable condition on Friday, August 01, 2024. The patient states she was feeling well at home. She states that yesterday she began to have pain in her right arm that radiated up into her arm. She also reports that she developed chest pain that went into her left arm, underneath her armpit, and her left shoulder blade. She decided to come to the emergency room for further evaluation. The patient does report having another episode of chest pain while in the ER around 2 AM. She received nitro at that time which relieved her pain. She denies having any episodes of chest pain since that time. The patient does report she was unable to get her prescriptions for her Brilinta on Friday when she was discharged. She states that she spoke with one of Dr. Zhang partners on the day of discharge who apparently told her it was okay to miss a day. Her last dose of Brilinta was Friday morning. DIAGNOSTICS: - EKG reveals sinus mechanism with nonspecific ST-T wave changes - Chest xray negative for acute process - Laboratory data: Troponin 0.045. 0.050. 0.054. - Current home cardiac medications include aspirin 81 mg daily, Lipitor 80 mg at night, metoprolol tartrate 25 mg twice a day, Brilinta 90 mg twice a day. - Most recent echocardiogram obtained in July 2024 revealed ejection fraction 55 to 60% with mild MR, mild TR 08/04/2024 Patient is s/p cardiac catheterization with Dr. Ogden revealing 40 to 50% left main stenosis, 20-30% LAD stenosis, patent ramus stent and 80% dominant circumflex stenosis. CT surgery was consulted due to patients multiple risk for PCI (see cath report). Patient examined this morning the bedside. Patient currently denies chest pain or pressure. She denies shortness of breath. Vital signs are stable. 08/05/2024 Patient examined this morning the bedside. Patient currently denies chest pain or pressure. She denies shortness of breath. Vital signs are stable. 08/06/2024 Patient examined this morning at bedside. Patient does report having an episode of chest pain yesterday. She is chest pain-free at the time of examination. She denies any shortness of breath. She has been up ambulating in the hallway this morning. She remains on IV heparin. 08/07/2024 Patient is doing well from cardiovascular standpoint with no concerns of hematoma or bleeding. Hemodynamically stable. 08/08/2024 Patient is doing well from cardiovascular standpoint. She is currently on Aggrenox for. No concerns of any clinically significant hematoma or bleeding. PHYSICAL EXAM: VITAL SIGNS: Reviewed. GENERAL: Well-developed in no acute distress. HEENT: Head is normocephalic. Pupils are equal, round. Sclerae anicteric. Mucous membranes of the mouth are moist. Neck supple. No JVD or thyromegaly LUNGS: Respirations even and unlabored. Lungs essentially clear to auscultation bilaterally. HEART: Regular rate and rhythm. S1 and S2 heard. ABDOMEN: Soft. Nondistended. Nontender. EXTREMITIES: Normal range of motion. No clubbing or cyanosis. Peripheral pulses intact. No lower extremity edema. Right upper extremity with bruising noted. NEUROLOGIC: Awake and alert. Oriented x 3. ASSESSMENT: Chest pain Elevated troponins, flat, acute coronary event ruled out, likely secondary to recent cardiac catheterization Coronary artery disease, status post PCI of the ramus and also PTCA of the circumflex with inability to get a stent past the heavily calcified ostial circumflex angulation, July 30, 2024 S/p repeat cath revealing 40 to 50% left main stenosis, 20-30% LAD stenosis, patent ramus stent and 80% dominant circumflex stenosis, 08/03/24 Hypertension, not requiring medications for patient Diabetes, diet controlled per patient Anxiety Bipolar disorder Depression Obesity: BMI 37.7 Former nicotine dependence PLAN: Continue current cardiac medications Brilinta remains on hold secondary to pending CABG Discontinue IV heparin. Start Aggrenox instead as patient is not getting Brilinta. Continue aspirin CT surgery following. Plan for CABG on Friday with Dr. Ortiz Further recommendations pending patient course Objective - Vital Signs Vital signs: Vital Signs Temp 97.9 F 08/08/24 09:04 Pulse 62 08/08/24 15:29 Resp 16 08/08/24 15:29 BP 103/59 08/08/24 15:29 Pulse Ox 98 08/08/24 15:29 FiO2 Intake & Output 08/07/24 08/08/24 08/08/24 18:59 06:59 18:59 Intake Total 383.598 540 698 Balance 383.598 540 698 Weight 105.8 kg Intake: Intake, IV Titration 143.598 Amount Heparin Sod,Pork in 0.45% 143.598 NaCl 25,000 unit In 0.45 % NaCl 1 250ml.bag @ 9.5 UNITS/KG/HR 9.994 mls/hr IV .Q24H GABO Rx#: [id number] Oral 240 540 698 Other: Voiding Method Toilet Toilet Toilet # Voids 1 1 2 # Bowel Movements 1 - Labs CBC & Chem 7: 08/08/24 05:44 08/08/24 05:44 Labs: Abnormal Lab Results - Last 24 Hours (Table) 08/07/24 08/08/24 08/08/24 Range/Units 20:25 05:44 05:44 RBC 3.09 L (3.80-5.40) m/uL Hgb 9.5 L (11.4-16.0) gm/dL Hct 28.0 L (34.0-46.0) % Plt Count 100 L (150-450) k/uL INR (<1.2) Glucose (74-99) mg/dL POC Glucose (mg/dL) 182 H (70-110) mg/dL Calcium (8.4-10.2) mg/dL Magnesium (1.6-2.3) mg/dL Total Bilirubin (0.2-1.3) mg/dL AST (14-36) U/L Total Protein (6.3-8.2) g/dL Albumin (3.5-5.0) g/dL Crossmatch See Detail 08/08/24 08/08/24 08/08/24 Range/Units 05:44 05:44 05:53 RBC (3.80-5.40) m/uL Hgb (11.4-16.0) gm/dL Hct (34.0-46.0) % Plt Count (150-450) k/uL INR 1.2 H (<1.2) Glucose 143 H (74-99) mg/dL POC Glucose (mg/dL) 164 H (70-110) mg/dL Calcium 8.2 L (8.4-10.2) mg/dL Magnesium 1.5 L (1.6-2.3) mg/dL Total Bilirubin 2.4 H (0.2-1.3) mg/dL AST 45 H (14-36) U/L Total Protein 5.9 L (6.3-8.2) g/dL Albumin 3.0 L (3.5-5.0) g/dL Crossmatch 08/08/24 08/08/24 Range/Units 11:18 16:11 RBC (3.80-5.40) m/uL Hgb (11.4-16.0) gm/dL Hct (34.0-46.0) % Plt Count (150-450) k/uL INR (<1.2) Glucose (74-99) mg/dL POC Glucose (mg/dL) 111 H 146 H (70-110) mg/dL Calcium (8.4-10.2) mg/dL Magnesium (1.6-2.3) mg/dL Total Bilirubin (0.2-1.3) mg/dL AST (14-36) U/L Total Protein (6.3-8.2) g/dL Albumin (3.5-5.0) g/dL Crossmatch Microbiology - Last 24 Hours (Table) 08/05/24 15:08 Urine Culture - Final Urine,Voided Klebsiella pneumoniae
[2024-08-08 20:14] LABS: Glucose,Whole Blood 128 mg/dL (70-110)
[2024-08-09] MEDS ORDERED: MD COMMUNICATION TO PHARMACY 1 EACH MISC PO ONE (00:01)
[2024-08-09 04:08] LABS: Glucose,Whole Blood 130 mg/dL (70-110)
[2024-08-09] MEDS ORDERED: INSULIN REGULAR 100 UNIT in SODIUM CHLORIDE 0.9% 100 ML IV SCH (05:00)
[2024-08-09] MEDS ORDERED: MAGNESIUM SULFATE 16.24 MEQ in EMPTY SYRINGE 1 SYR IV ONE (05:00)
[2024-08-09] MEDS ORDERED: PHENYLEPHRINE 40 MG in SODIUM CHLORIDE 0.9% 250 ML IV ONE (05:00)
[2024-08-09] MEDS ORDERED: TRANEXAMIC ACID 2,000 MG in SODIUM CHLORIDE 0.9% 80 ML IV ONE (05:00)
[2024-08-09] MEDS ORDERED: CARDIOPLEGIC SOLN (K+ 16 MEQ/L 1,000 ML with SOD BICARB SYR 8.4% (1 MEQ/ML) 20 ML, LIDO... PERFUSION NR (05:00)
[2024-08-09] MEDS ORDERED: NOREPINEPHRINE 4 MG in SODIUM CHLORIDE 0.9% 250 ML IV SCH (05:00)
[2024-08-09] MEDS ORDERED: SODIUM BICARB 8.4% 50 ML SYR (1 MEQ/ML) IV ONE (05:00)
[2024-08-09] MEDS ORDERED: PROTAMINE SULFATE 250 MG in EMPTY BAG 1 BAG IV ONE (05:00)
[2024-08-09] MEDS ORDERED: PROTAMINE SULFATE 10 MG/ML 25 ML VIAL IV ONE ×2 (05:00→07:59)
[2024-08-09] MEDS ORDERED: NITROGLYCERIN-D5W PMX 50 MG in DEXTROSE/WATER 1 250ML.BAG IV SCH (05:00)
[2024-08-09] MEDS ORDERED: ALBUMIN HUMAN 5% 500 ML in EMPTY BAG 1 BAG IVPB ONE ×6 (05:00)
[2024-08-09] MEDS ORDERED: ALBUMIN HUMAN 25% 50 ML in EMPTY BAG 1 BAG IVPB ONE (05:00)
[2024-08-09] MEDS ORDERED: CHLORHEXIDINE GLUCONATE 15 ML CUP MUCOUS MEM ONE (05:00)
[2024-08-09] MEDS ORDERED: HEPARIN SODIUM 1,000 UN/ML (10ML VL) IV ONE (05:00)
[2024-08-09] MEDS ORDERED: CLEVIDIPINE BUTYRATE 25 MG in EMPTY BAG 1 BAG IV SCH (05:00)
[2024-08-09] MEDS ORDERED: MANNITOL 25% 12.5 GM/50 ML VIAL IV ONE ×2 (05:00)
[2024-08-09] MEDS ORDERED: NITROGLYCERIN-D5W PMX 25 MG/250 ML BTL IV ONE (05:00)
[2024-08-09] MEDS ORDERED: PHENYLEPHRINE 10 MG/ML VIAL IV ONE (05:00)
[2024-08-09] MEDS ORDERED: CALCIUM CHLORIDE 100 MG/ML 10 ML SYRINGE IVP ONE (05:00)
[2024-08-09] MEDS: ATORVASTATIN 10 MG TAB PO ONE (05:58)
[2024-08-09] MEDS: ASPIRIN 325 MG TAB PO ONE (05:58)
[2024-08-09] MEDS: METOPROLOL TARTRATE 12.5 MG TAB PO ONE (05:58)
[2024-08-09] MEDS: IV FLUID CONTINUATION 1,000 ML IV ONE (06:27)
[2024-08-09] MEDS: LACTATED RINGERS 1,000 ML IV SCH (06:29)
[2024-08-09] MEDS ORDERED: ePHEDrine 50 MG/ML 1 ML VIAL ONE (07:59)
[2024-08-09] MEDS ORDERED: VECURONIUM 10 MG VIAL IV ONE (07:59)
[2024-08-09] MEDS ORDERED: HEPARIN SODIUM,PORCINE 5,000 UNIT/ML 1 ML VIAL ONE (07:59)
[2024-08-09] MEDS ORDERED: PROPOFOL 10 MG/ML 20 ML VIAL IV ONE (07:59)
[2024-08-09] MEDS ORDERED: fentaNYL (PF) 50 MCG/ML 50 ML VIAL ONE (07:59)
[2024-08-09] MEDS ORDERED: ALBUMIN HUMAN 5% (25gm) 500 ML VIAL IVPB ONE (07:59)
[2024-08-09] MEDS ORDERED: PHENYLEPHRINE 10 MG/ML VIAL ONE (07:59)
[2024-08-09] MEDS ORDERED: MIDAZOLAM HCL 10 MG/10 ML VIAL ONE (07:59)
[2024-08-09 08:46] LABS: ABG Glucose Whole Blood 111 mg/dL (75-99); ABG HCO3 25 mmol/L (21-25); ABG Ionized Calcium 4.6 mg/dL (4.5-5.3); ABG PCO2 38 mmHg (35-45); ABG PH 7.42 (7.35-7.45); ABG PO2 194 mmHg (83-108); ABG Sodium Whole Blood 140 mmol/L (135-146)
[2024-08-09 09:05] LABS: ABG Base Excess 0.3 mmol/L; ABG Hematocrit 27 % (34.0-46.0); ABG Oxygen Saturation 99.3 % (94-97); ABG TCO2 23 mmol/L (19-24)
[2024-08-09] MEDS: ceFAZolin 1,000 MG in SODIUM CHLORIDE 0.9% IRRIGATIO 1,000 ML IRRIGATION ONE (09:05)
[2024-08-09] MEDS: PAPAVERINE 360 MG in SODIUM CHLORIDE 0.9% 90 ML IV ONE (09:06)
[2024-08-09] MEDS: HEPARIN SODIUM,PORCINE (1 ML) 5,000 UNIT in SODIUM CHLORIDE 0.9% 500 ML 500 ML IV ONE (09:06)
--- NOTE | 2024-08-09 09:44 | P.PN ---
Subjective Progress Note Date: 08/09/24 This is a pleasant 49 years old female who was recently discharged from the hospital on 08/01 after she had cardiac cath. Patient presents because of chest pain thought secondary to unstable angina with negative troponins. She underwent left heart catheterization 07/30/2024 showing CAD i with 20-30% distal left main stenosis, LAD 20-30% stenosis, ramus 90% stenosis, ostial circumflex 99% stenosis, status post PCI of the ramus, status post PTCA circumflex. She was started on aspirin and Brilinta. After discharge patient could not fill up her prescription because it was a long weekend holiday for . She presents this time because of chest pain that lasted about 15 minutes. Patient currently denies chest pain no dyspnea. No coughing No other /GI symptoms. Earlier she had nausea which is resolved now. No abdominal pain vomiting diarrhea. No headache dizziness weakness or numbness She smokes cigarettes and states she quit smoking today without specification. Nicotine patch offered but she declines. She drinks alcohol occasionally. No illicit drugs. Her last repairer is Dr. Ogden that she intends to follow-up in 1 week. She states she has no PCP but she intends to find 1. Hemodynamically stable Labs showing WBC 3.7 and platelet count 9.7. Liver enzymes mildly elevated. Troponin are elevated 0.4 and 0.5 and 0.5 D-dimer negative at 0.55 proBNP is 291 Amylase lipase negative Chest x-ray is negative for acute process EKG showing sinus bradycardia at [address]-T changes Upper extremity duplex of the forearm was negative. 08/04/2024 Patient is seen and evaluated in follow-up today currently undergoing stress test with cardiology following. Patient continues to report chest pain and chest discomfort with shortness of breath with exertion. Patient being followed by cardiothoracic surgery undergoing workup for possible CABG. CT chest is ordered and pending as well. Patient is afebrile with no worsening shortness of breath or palpitations noted. Patient denies nausea or vomiting and was currently n.p.o. for the stress test this morning. 08/05/2024 Patient is seen and evaluated in follow-up this morning currently undergoing preop workup with CT surgery and tentatively scheduled for off-pump intervention on 08/09/[address] Ortiz. Patient reports currently her chest pain is under control although has not been up and moving much other to the bathroom and back. Patient encouraged to increase activity with frequent walks and also continue with the use of the incentive spirometer and further testing per CT surgery. Patient reports she did have an episode of loose stool this morning and have ordered as needed Imodium. Patient is afebrile with no reports of chest pain, shortness of breath, or palpitations at this time. Will follow-up on serial labs and continue to monitor closely until surgery. Patient to continue on 3 S. per protocol 08/06/2024 Patient is seen in follow-up today awaiting off-pump intervention on 08/09/[address] Ortiz. Patient reports occasionally having s ome anxiety about the overall surgery although continues to wish to proceed with surgical intervention to improve quality of life. Patient reports she continues to have intermittent episodes of chest pain and heaviness. Patient denies any further diarrhea reported it was 1 isolated incident and tolerating diet. Patient remains on room air with no reports of shortness of breath. at the bedside with questions and concerns that were answered 08/07 Patient was seen and examined today. No issues overnight. Patient had just been overnight, patient was taken off IV heparin and started on Aggrastat. Chest pain currently resolved. Vital stable. No labs this morning. 08/08/2024--patient was seen and examined today. No further episodes of chest pain. Patient had some epistaxis earlier on Aggrastat, now resolved. Pulmonary following. Cardiac surgery following, plan for CABG tomorrow. Vital stable. Normal WBCs, hemoglobin 9.5, platelets 100. INR 1.2. Normal BUN/creatinine. 08/09/2024 Patient is currently in preop undergoing off-pump intervention with cardiothoracic surgery. Will await surgical report. Review of systems: Constitutional: No reports of fatigue, fever, or chills reports occasionally feeling anxious Cardiovascular: reports of continued chest pain, denies palpitations Respiratory: No reports of shortness of breath or cough other than with exertion GI: No reports of nausea, vomiting, reports no further diarrhea noted, : No reports of dysuria or retention Neurovascular: No reports of weakness or numbness All medications have been reviewed Physical exam: GENERAL: The patient is alert and oriented x3, not in any acute distress. Well developed, well nourished. Mildly anxious at times. Morbidly obese HEENT: Pupils are round and equally reacting to light. EOMI. No scleral icterus. No conjunctival pallor. Normocephalic, atraumatic. No pharyngeal erythema. No thyromegaly. CARDIOVASCULAR: S1 and S2 present. No murmurs, rubs, or gallops. PULMONARY: Chest is clear to auscultation, no wheezing , no crackles. ABDOMEN: Soft, nontender, nondistended, normoactive bowel sounds. No palpable organomegaly. MUSCULOSKELETAL: No joint swelling or deformity. EXTREMITIES: No cyanosis, clubbing, or pedal edema. Ecchymosis of the right forearm on the medial side. NEUROLOGICAL: Gross neurological examination did not reveal any focal deficits. SKIN: No rashes. no petechiae. Assessment: Chest pain with mildly elevated troponin and review of recent stent placement to ramus branch and PTCA circumflex. Related to her unstable angina. Currently awaiting a stress test and undergoing further workup for possible triple-vessel disease with CT surgery. Undergoing further workup for off-pump vascularization on 08/09/2024 Nonadherence to therapy because it was holiday and she could not follow-up her prescription from the pharmacy Mild transaminitis Mild bicytopenia with leukopenia and thrombocytopenia Hypertension Diabetes Morbid obesity with a BMI of 41.1 Nicotine dependence with vaping Osteoarthritis History of kidney stones GI prophylaxis DVT prophylaxis Full code Plan: Continue with cardiology and CT surgery following. Patient scheduled to undergo CT surgery off balloon pump today and will await official report on 08/09/2024 Provide resources for outpatient follow-up to establish with a primary care earnestine wade. Patient reports she was a patient of Dr. 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 Continue to encourage complete smoking and vaping cessation The impression and plan of care has been dictated by Jessica Rendon, Nurse Practitioner as directed. Dr. Heriberto MD I have performed a history and examination and MDM of this patient, discussed the same with the dictator, and agree with the dictator's assessment and plan as written ,documented as a scribe. Based on total visit time, I have performed more than 50% of the visit. Currently undergoing stress test with cardiology following. Objective - Vital Signs Vital signs: Vital Signs Temp 97.8 F 08/09/24 03:48 Pulse 74 08/09/24 03:48 Resp 16 08/09/24 03:48 BP 106/65 08/09/24 06:00 Pulse Ox 99 08/09/24 03:48 FiO2 100 08/09/24 08:00 Intake & Output 08/08/24 08/09/24 08/09/24 18:59 06:59 18:59 Intake Total 698 110 53 Balance 698 110 53 Weight 105.1 kg Intake: IV 110 53 Invasive Line 4 10 Oral 698 Other: Voiding Method Toilet Toilet # Voids 2 0 - Labs CBC & Chem 7: 08/08/24 05:44 08/08/24 05:44 Labs: Abnormal Lab Results - Last 24 Hours (Table) 08/08/24 08/08/24 08/08/24 Range/Units 05:44 11:18 16:11 ABG pO2 (83-108) mmHg ABG O2 Saturation (94-97) % ABG Hematocrit (34.0-46.0) % ABG Glucose (75-99) mg/dL Hemoglobin (11.4-16.0) gm/dL POC Glucose (mg/dL) 111 H 146 H (70-110) mg/dL Arterial Blood Glucose (75-99) mg/dL Crossmatch See Detail 08/08/24 08/09/24 08/09/24 Range/Units 20:12 04:06 08:51 ABG pO2 194 H (83-108) mmHg ABG O2 Saturation 99.3 H (94-97) % ABG Hematocrit 27 L (34.0-46.0) % ABG Glucose 111 H (75-99) mg/dL Hemoglobin 8.8 L (11.4-16.0) gm/dL POC Glucose (mg/dL) 128 H 130 H (70-110) mg/dL Arterial Blood Glucose 111 H (75-99) mg/dL Crossmatch
[2024-08-09 10:19] LABS: ABG Glucose Whole Blood 130 mg/dL (75-99); ABG HCO3 24 mmol/L (21-25); ABG Ionized Calcium 4.5 mg/dL (4.5-5.3); ABG Lactic Acid Whole Blood 1.2 mmol/L (0.5-1.6); ABG PCO2 35 mmHg (35-45); ABG PH 7.44 (7.35-7.45); ABG PO2 204 mmHg (83-108); ABG Potassium Whole Blood 4.2 mmol/L (3.4-4.5); ABG Sodium Whole Blood 140 mmol/L (135-146)
[2024-08-09 11:00] LABS: ABG Glucose Whole Blood 132 mg/dL (75-99); ABG HCO3 24 mmol/L (21-25); ABG Ionized Calcium 4.3 mg/dL (4.5-5.3); ABG Lactic Acid Whole Blood 1.1 mmol/L (0.5-1.6); ABG PCO2 36 mmHg (35-45); ABG PH 7.43 (7.35-7.45); ABG PO2 191 mmHg (83-108); ABG Potassium Whole Blood 3.9 mmol/L (3.4-4.5); ABG Sodium Whole Blood 140 mmol/L (135-146)
[2024-08-09 11:33] LABS: ABG Glucose Whole Blood 130 mg/dL (75-99); ABG HCO3 24 mmol/L (21-25); ABG Ionized Calcium 4.3 mg/dL (4.5-5.3); ABG Lactic Acid Whole Blood 1.1 mmol/L (0.5-1.6); ABG PCO2 36 mmHg (35-45); ABG PH 7.43 (7.35-7.45); ABG PO2 178 mmHg (83-108); ABG Potassium Whole Blood 4.1 mmol/L (3.4-4.5); ABG Sodium Whole Blood 140 mmol/L (135-146)
[2024-08-09 12:01] LABS: ABG Glucose Whole Blood 126 mg/dL (75-99); ABG HCO3 23 mmol/L (21-25); ABG Ionized Calcium 4.3 mg/dL (4.5-5.3); ABG Lactic Acid Whole Blood 1.5 mmol/L (0.5-1.6); ABG PCO2 36 mmHg (35-45); ABG PH 7.42 (7.35-7.45); ABG PO2 132 mmHg (83-108); ABG Potassium Whole Blood 4.4 mmol/L (3.4-4.5); ABG Sodium Whole Blood 139 mmol/L (135-146)
[2024-08-09 12:07] LABS: ABG TCO2 23 mmol/L (19-24)
[2024-08-09 12:08] LABS: ABG Base Excess 0.2 mmol/L; ABG Hematocrit 26 % (34.0-46.0); ABG Oxygen Saturation 99.4 % (94-97)
[2024-08-09 12:09] LABS: ABG Base Excess -0.6 mmol/L; ABG Hematocrit 25 % (34.0-46.0); ABG Oxygen Saturation 99.4 % (94-97); ABG TCO2 23 mmol/L (19-24)
[2024-08-09 12:10] LABS: ABG Base Excess -0.6 mmol/L; ABG Hematocrit 23 % (34.0-46.0); ABG Oxygen Saturation 99.4 % (94-97)
[2024-08-09 12:11] LABS: ABG Base Excess -1.2 mmol/L; ABG Hematocrit 24 % (34.0-46.0); ABG TCO2 22 mmol/L (19-24)
[2024-08-09] MEDS ORDERED: BENZOCAINE/MENTHOL LOZENG 1 EACH LOZENGE MUCOUS MEM PRN (12:11)
[2024-08-09] MEDS ORDERED: METOCLOPRAMIDE 5 MG/ML 2 ML VIAL IVP PRN (12:11)
[2024-08-09] MEDS ORDERED: Potassium Replacement Protocol 1 EACH MISC MISCELLANE PRN (12:11)
[2024-08-09] MEDS ORDERED: DEXTROSE 50% SYRINGE 50 ML IVP PRN ×2 (12:11)
[2024-08-09] MEDS ORDERED: Phosphorus Replacement Protoco 1 EACH MISC MISCELLANE PRN (12:11)
[2024-08-09] MEDS ORDERED: hydrALAZINE HCL 20 MG/ML 1 ML VIAL IVP PRN (12:11)
[2024-08-09] MEDS ORDERED: IPRATROPIUM-ALBUTEROL 3 ML NEB INHALATION PRN (12:11)
[2024-08-09] MEDS ORDERED: Magnesium Replacement Protocol 1 EACH MISC MISCELLANE PRN (12:11)
[2024-08-09] MEDS: IPRATROPIUM-ALBUTEROL 3 ML NEB INHALATION SCH ×2 (12:21→20:26)
--- NOTE | 2024-08-09 13:00 | P.OP ---
Date of Procedure: 08/09/24 Preoperative Diagnosis: Coronary artery disease, unstable angina, status post stenting of the ramus intermedius Postoperative Diagnosis: Same Procedure(s) Performed: Off-pump coronary artery bypass grafting x 3 with sequential PERSAUD to diagonal and LAD, saphenous vein graft to acute marginal branch of the right coronary artery, endovascular vein harvest of the greater saphenous vein from the left thigh, occlusion of the left atrial appendage with a 35 mm AtriCure clip. SALTY by anesthesia. Implants: 35 mm AtriCure clip Anesthesia: NASH Surgeon: Phong Ortiz Flooring Professional #1: Joseph Cavazos Flooring Professional #2: Yuriy Guy Estimated Blood Loss (ml): 250 IV fluids (ml): 2,000 Urine output (ml): 300 Pathology: none sent Condition: stable Disposition: ICU Indications for Procedure: 49-year-old female previous history of alcoholism and active smoking presented 10 days prior with unstable anginal symptomatology. She underwent cardiac catheterization and found to have moderate calcific coronary artery disease throughout. Stent was placed in the intermediate coronary artery. She was discharged home but represented within 24 hours with complaints of severe anginal symptomatology on minimal activity. Cardiac surgery was consulted. Brilinta was held. She was bridged with IV heparin and Aggrastat. Operative Findings: There was trace aortic insufficiency and trace mitral insufficiency on SALTY. Ventricular function was normal. There was no clot in the left atrial appendage. Coronary arteries were relatively small. Diagonal coronary artery was 1.5 mm. LAD surface to the mid anterior wall and was 1.75 mm in diameter. Circumflex branches were very small. There were no graftable vessels visualized on the inferior wall. There was a 1.5 mm acute marginal coronary artery. The main right coronary artery itself ran very deep in the AV groove and could not be dissected out. Completion SALTY demonstrated unchanged ventricular function and valvular function. Left atrial appendage was occluded at its base. Description of Procedure: The patient was brought to the operating room and placed supine on the operating table. General anesthesia was induced. Preoperative monitoring lines have been placed in the preop holding area. The anterior torso and bilateral lower extremities were sterilely prepped and draped. The left greater saphenous vein was identified just below the knee and was dissected out using endovascular harvest technique. Was harvested from below the knee to the groin and was of good quality. Simultaneous sternotomy was performed. The left hemisternum was retracted upwards and the left internal mammary artery harvested on a vascularized pedicle, left intact and its emerging from the subclavian and divided distally. The left pleural space was drained with a 32 Vincentian chest tube. Standard sternal retractor was placed. Pericardium was opened in the midline and the heart exposed with pericardial sutures. Targets were identified with findings as noted above. PERSAUD was of sufficient length to create a sequential graft to the diagonal and LAD. We began with the [id number] graft to the diagonal. The diagonal coronary artery was opened proximally and blood flow controlled with a 1.5 mm flow-through. [id number] anastomosis was constructed with 8-0 Prolene suture. On completion of the anastomosis, the flow through was removed effectively probing the proximal and distal portion of the anastomosis. Suture was tied with good resultant hemostasis. Bulldog was removed from proximal to distal on the PERSAUD opening the flow to the diagonal. Good hemostasis was noted. The VALARIE pedicle was tacked surrounding epicardium with 6-0 silk sutures. Next the distal anastomosis between the PERSAUD and the mid LAD was performed with running 8-0 Prolene suture. The LAD was opened as it exited from its intramyocardial position proximally. 1.5 mm flow through was used to control the flow of blood during the anastomosis. On completion of the anastomosis, flow through was removed effectively probing the proximal distal portion of the anastomosis. Suture was tied with good result and hemostasis. Inflow was open. The VALARIE pedicle was tacked surrounding epicardium with 6-0 silk sutures. The graft was noted to lay well without any kinking with more than adequate length. There were no graftable vessels noted on the inferior wall. We attempted to dissected out the right coronary artery from the AV groove but it was very deep. There was a good-sized acute marginal branch and this was dissected out. It was decided to graft the right coronary artery here. Was opened and blood flow controlled with a 1.5 mm flow through. End to side anastomosis between saphenous vein and acute marginal branch was performed with running 7-0 Prolene suture. At completion of the anastomosis, the flow through was removed effectively probing the proximal and distal portion of the anastomosis. Suture was tied and back bleeding controlled with a bulldog clamp. The heart was lowered into anatomic position and the vein was cut to appropriate length to reach the ascending aorta. 4 mm punch hole was created in the mid ascending aorta and a heartstring device deployed. Proximal anastomosis was constructed with running 5-0 Prolene suture. On completion of the anastomosis, the heartstring device was removed and the suture was tied with good result and hemostasis. The vein graft was de-aired with a needle hole. Inflow was opened. The graft was noted to lay well without kinking and without any bleeding at either end. Heparin was reversed with protamine and good hemostasis was obtained throughout. The mediastinum was drained with a 36 Vincentian chest tube. It was irrigated with antibiotic solution. The sternum was closed with 8 sternal wires. Fascia was closed with 0 Ethibond. Subcutaneous and subcuticular layers of the leg and chest were closed with layers of Vicryl suture. Dry sterile dressings were applied the patient was transferred to ICU in stable condition. Patient did not require any blood transfusions and did not require any inotropic support.
[2024-08-09] MEDS: NITROGLYCERIN-D5W PMX 50 MG in DEXTROSE/WATER 1 250ML.BAG IV SCH (13:10)
[2024-08-09 13:17] LABS: Glucose,Whole Blood 127 mg/dL (70-110)
[2024-08-09 13:28] LABS: ABG HCO3 24 mmol/L (21-25); ABG Oxygen Saturation 100.5 % (94-97); ABG PCO2 45 mmHg (35-45); ABG PH 7.33 (7.35-7.45); ABG TCO2 25 mmol/L (19-24)
[2024-08-09 13:29] LABS: ABG PO2 >420 mmHg (83-108); Allen Test Performed? no
[2024-08-09] MEDS: ALBUMIN HUMAN 5% 250 ML in EMPTY BAG 1 BAG IVPB PRN (13:33)
[2024-08-09 13:34] LABS: Basophils % (A) 0 %; Eosinophils # (A) 0.1 k/uL (0-0.7); Eosinophils % (A) 3 %; HCT 23.4 % (34.0-46.0); Hypochromasia Slight; Lymphocytes # (A) 0.6 k/uL (1.0-4.8); Lymphocytes % (A) 14 %; MCH 30.9 pg (25.0-35.0); MCHC 33.7 g/dL (31.0-37.0); MCV 91.7 fL (80.0-100.0); Mean Platelet Volume 11.3; Monocytes # (A) 0.3 k/uL (0-1.0); Monocytes % (A) 6 %; Neutrophils # (A) 3.3 k/uL (1.3-7.7); Neutrophils % (A) 76 %; RBC 2.55 m/uL (3.80-5.40); RDW 15.3 % (11.5-15.5); WBC 4.4 k/uL (3.8-10.6)
[2024-08-09 13:41] LABS: Ionized Calcium 4.4 mg/dL (4.5-5.3)
--- NOTE | 2024-08-09 13:41 | XR ---
EXAMINATION TYPE: XR chest 1V portable DATE OF EXAM: 08/09/2024 1:33 PM CLINICAL INDICATION: Female, 49 years old with history of Post Operative Cardiac Surgery; [facility] COMPARISON: Chest radiographs from 08/03/2024 TECHNIQUE: XR chest 1V portable Frontal view of the chest. FINDINGS: Lungs/Pleura: There is no evidence of pleural effusion, focal consolidation, or pneumothorax. Pulmonary vascularity: Pulmonary vascular congestion. Heart/mediastinum: Cardiomediastinal silhouette is unremarkable. Left atrial appendage occlusion noah ce is present. Musculoskeletal: No acute osseous pathology. Midline sternotomy wires are noted. Other findings: None Lines/Tubes: Endotracheal tube with distal tip 2.7 cm above the claudia. Nasogastric tube with its distal tip and side-port projecting under the diaphragm. There is a Garland-Tiffanie catheter with tip projecting over the spine. Left thoracotomy tube is present without evidence of pneumothorax. Drainage tubes with tips projecting over the mediastinum. IMPRESSION: Postsurgical changes no evidence for immediate postop complication. Mild pulmonary edema.
[2024-08-09 13:42] LABS: INR 1.5 (<1.2); Partial Thromboplastin Time 30.6 sec (22.0-30.0); Prothrombin Time 15.1 sec (10.0-12.5)
[2024-08-09] MEDS: ACETAMINOPHEN IV (For NPO) 1,000 MG in EMPTY BAG 1 BAG IVPB SCH (13:44)
[2024-08-09 13:50] LABS: ALT 22 U/L (4-34); AST 37 U/L (14-36); African American GFR (CKD) >90 (>60 ml/min/1.73 sqM); Alkaline Phosphatase 64 U/L (38-126); Anion Gap 4 mmol/L; Blood Urea Nitrogen 11 mg/dL (7-17); Calcium 7.6 mg/dL (8.4-10.2); Carbon Dioxide 23 mmol/L (22-30); Chloride 110 mmol/L (98-107); Glucose 114 mg/dL (74-99); Magnesium 1.3 mg/dL (1.6-2.3); Non-African American GFR(CKD) >90 (>60 ml/min/1.73 sqM); Potassium 4.1 mmol/L (3.5-5.1); Sodium 137 mmol/L (137-145); Total Bilirubin 2.6 mg/dL (0.2-1.3); Total Protein 5.2 g/dL (6.3-8.2)
[2024-08-09 13:53] LABS: HGB 7.9 gm/dL (11.4-16.0)
[2024-08-09 14:14] LABS: Glucose,Whole Blood 137 mg/dL (70-110)
[2024-08-09] MEDS: INSULIN REGULAR 100 UNIT in SODIUM CHLORIDE 0.9% 100 ML IV SCH (14:32)
[2024-08-09] MEDS: MAGNESIUM SULFATE-D5W PMX 1 GM in DEXTROSE/WATER 1 100ML.BAG IVPB SCH (14:39)
[2024-08-09] MEDS: CALCIUM GLUCONATE IN NACL 2 GM in SALINE 1 100ML.BAG IVPB PRN (14:44)
[2024-08-09 14:57] LABS: Platelet Count 74 k/uL (150-450)
[2024-08-09] MEDS: CLEVIDIPINE BUTYRATE 25 MG in EMPTY BAG 1 BAG IV SCH (15:13)
[2024-08-09 15:18] LABS: Glucose,Whole Blood 158 mg/dL (70-110)
[2024-08-09] MEDS ORDERED: HEPARIN SODIUM,PORCINE 5,000 UNIT/ML 1 ML VIAL SQ SCH (16:00)
[2024-08-09] MEDS: METOPROLOL TARTRATE 5 MG/5 ML VIAL IVP STA (16:23)
[2024-08-09 16:32] LABS: Glucose,Whole Blood 170 mg/dL (70-110)
[2024-08-09 17:06] LABS: Basophils % (A) 0 %; Eosinophils # (A) 0.2 k/uL (0-0.7); Eosinophils % (A) 3 %; HCT 23.6 % (34.0-46.0); Lymphocytes # (A) 0.8 k/uL (1.0-4.8); Lymphocytes % (A) 12 %; MCH 30.8 pg (25.0-35.0); MCV 90.4 fL (80.0-100.0); Mean Platelet Volume 11.3; Monocytes # (A) 0.5 k/uL (0-1.0); Monocytes % (A) 8 %; Neutrophils # (A) 5.3 k/uL (1.3-7.7); Neutrophils % (A) 77 %; RBC 2.61 m/uL (3.80-5.40); RDW 15.8 % (11.5-15.5); WBC 6.9 k/uL (3.8-10.6)
--- NOTE | 2024-08-09 17:07 | P.PN ---
Subjective Progress Note Date: 08/09/24 Patient is a 49-year-old female with past medical history significant for coronary artery disease with previous PCI/stenting, hypertension, hyperlipidemia, diet-controlled diabetes, previous tobacco dependence, chronic marijuana use. Not currently following with a PCP. Patient was recently hospitalized 07/29/2024 with unstable angina. The following day, underwent heart catheterization on 07/30/2024, multivessel coronary artery disease was noted. There was a stent placed to the ramus intermedius at this time. Inability, to stent the left circumflex artery. Transthoracic echocardiogram estimates left ventricular systolic function 55 to 60%, as well as, mild mitral and tricuspid regurgitation. Patient was discharged home on August. Returned to the emergency department the following day with severe substernal chest pain that occurred while watching TV. Chest pain radiated to left arm. Lasted approximately 10 minutes. Associated symptoms including shortness of breath, nausea, diaphoresis. Her did drive her to the emergency room. Patient brought back to the Service Delivery Director on 08/03/2024 multivessel coronary artery disease again noted including 40 to 50% left main stenosis, 20 to 30% LAD stenosis, patent stent to the ramus, and 80% dominant left circumflex stenosis. A cardiothoracic surgical consult was initiated. We are being asked to see this patient in pulmonary consultation in preparation for preoperative CABG. Chest CT done this admission did not show any acute pulmonary processes. Patient does have a smoking history approximately 1 pack/day smoker for 20 years. Quit smoking cigarettes 3 years ago and started vaping. Also smokes marijuana daily.. No diagnosed COPD, asthma, or other pre-existing pulmonary conditions. A bedside spirometry was performed, her FEV1 was reportedly 85% of predicted. Patient is currently sitting up in the bedside recliner, on room air, in no acute respiratory distress. SpO2 is 96%. No current chest pain. Most recent CBC from this morning: WBC count 5, hemoglobin 9.9, hematocrit 29.2, platelets 101,000. Most recent CMP from 08/03/2024: Sodium 137, potassium 4.4, chloride 110, serum bicarb 25, BUN 11, creatinine 0.79, glucose 139. LFTs mildly elevated. Serial troponins 0.045, 0.05, and 0.054 respectively. NT proBNP 291. STS score is being calculated. 08/06/2024, patient is being seen for a follow-up. The patient is doing well. No specific complaints. The the patient remains on IV heparin. She is free of any chest pain for now. She did have an episode of chest pain yesterday.. No cardiac arrhythmias. No hemodynamic instability. Respiratory status is also stable. The patient has no specific complaints. Blood work from today shows a white cell count of 5.6, hemoglobin 9.8 which is stable compared to yesterday and a platelet count of 117, stable. BUN is 13 with a creatinine of 0.8 and sodium levels at 136. LFTs were noted, the numbers are improving. UA is negative. On 08/07/2024, the patient is doing well. No specific complaints. Overnight, she had some vague chest pain. Based on that, the patient was taken off IV heparin and patient was started on Aggrastat. She is free of chest pain for now. Hemodynamically stable. Remains on metoprolol 50 mg twice daily. Remains in aspirin. Labs from today are still pending. Room air oxygen. No other new complaints. On 08/08/2024, the patient is free of any chest pain. The patient encountered some epistaxis while being on Aggrastat. This will be continued till midnight today and subsequent this will be stopped as the patient is getting ready for bypass surgery tomorrow. The white cell count is 4.5 with a hemoglobin 9.5 and a platelet count of 100. Sodium is at 137, potassium is at 3.9, BUN is 18 with a creatinine of 0.7. LFTs are also stable. No other significant events overnight. The patient is clinically and hemodynamically stable. The patient is seen today August 09, 2024 in follow-up in the intensive care unit. Status post off-pump coronary artery bypass grafting x 3 with sequential PERSAUD to the diagonal and LAD, saphenous vein graft to the obtuse marginal branch of the RCA. Left atrial appendage clipping. Postoperative day #0. She is intubated on the mechanical ventilator and assist-control mode at a rate of 14, tidal volume 400, FiO2 100% and a PEEP of 5. Arterial blood gases revealed a PaO2 of 420, pCO2 45 and a pH of 7.33. She is currently on Cleviprex at 3 mg/hr. Insulin drip at 2 units an hour. Nitroglycerin drip at 5 mcg/min. Propofol at 35 mcg/kg/min. Normal saline at 50 mL/h. She has a mediastinal and left pleural chest tubes in place. Cardiac output 5.7. Cardiac index 2.8. PA pressures 41/11. CVP of 17. Chest x-ray shows some mild pulmonary edema. White count 4.4. Hemoglobin 7.9. Platelets 74,000. INR 1.5. Sodium 137. Potassium 4.1. Bicarb 23. BUN 11. Creatinine 0.71. Glucose 127. Ionized calcium 4.4. Magnesium 1.3. AST 37. ALT 22. She has been initiated on bronchodilators. Anticoagulated with Arixtra. Objective - Vital Signs Vital signs: Vital Signs Temp 97.5 F L 08/09/24 16:00 Pulse 68 08/09/24 16:30 Resp 14 08/09/24 16:30 BP 106/65 08/09/24 06:00 Pulse Ox 100 08/09/24 16:30 FiO2 45 08/09/24 16:00 Intake & Output 08/08/24 08/09/24 08/09/24 18:59 06:59 18:59 Intake Total 984 953 3272.428 Output Total 1250 Balance 698 110 -118.572 Weight 105.1 kg Intake: IV 110 1069 0.9 @ 50 200 ACETAMINOPHEN IV (For NPO 100 ) 1,000 mg In Empty Bag 1 bag @ 400 mls/hr IVPB Q6HR GABO Rx#:[id number] Albumin Human 5% 250 ml 250 In Empty Bag 1 bag @ 250 mls/hr IVPB Q1HR PRN Rx#: [id number] CO/CI 130 Calcium Gluconate in NaCl 100 2 gm In Saline 1 100ml. bag @ 100 mls/hr IVPB ONCE PRN Rx#:[id number] Invasive Line 4 10 Magnesium Sulfate-D5w Pmx 200 1 gm In Dextrose/Water 1 100ml.bag @ 100 mls/hr IVPB Q1H GABO Rx#: [id number] pressure bags 36 Intake, IV Titration 62.428 Amount Clevidipine Butyrate 25 1.500 mg In Empty Bag 1 bag @ 1 MG/HR 2 mls/hr IV .Q24H GABO Rx#:[id number] Insulin Regular 100 unit 3.754 In Sodium Chloride 0.9% 100 ml @ Per Protocol IV .Q0M GABO Rx#:[id number] propofoL 1,000 mg In 57.174 Empty Bag 1 bag @ Titrate IV .Q0M GABO Rx#: [id number] Oral 698 Output: Chest Tube Drainage 160 Left Pleural 20 Mediastinal 140 Urine 840 Estimated Blood Loss 250 Other: Voiding Method Toilet Toilet # Voids 2 0 ABP, PAP, CO, CI - Last Documented Arterial Blood Pressure 49/49 Pulmonary Artery Pressure 33/12 Cardiac Output 5.5 Cardiac Index 2.7 - Exam GENERAL EXAM: Intubated, sedated 49-year-old female on the mechanical ventilator, in no apparent distress. HEAD: Normocephalic. EYES: Sluggish reaction of pupils, equal size. NOSE: Clear with pink turbinates. THROAT: Oral endotracheal and gastric tube secured in place. No erythema or exudates. NECK: Right IJ [place]-Tiffanie catheter in place. No masses, no JVD. CHEST: Sternal dressing dry and intact. Heart hugger in place. Mediastinal and left pleural chest tubes in place. LUNGS: Equal air entry with no crackles, wheeze, rhonchi or dullness. CVS: S1 and S2 normal with no audible murmur, regular rhythm. ABDOMEN: No hepatosplenomegaly, no guarding or rigidity. SPINE: No scoliosis or deformity SKIN: No rashes CENTRAL NERVOUS SYSTEM: Sedated, tone is normal in all 4 extremities. EXTREMITIES: Bilateral lower extremity Marcos wraps in place. SCDs in place. Arterial line in place. Peripheral pulses are intact. - Labs CBC & Chem 7: 08/09/24 13:17 08/09/24 13:17 Labs: Abnormal Lab Results - Last 24 Hours (Table) 08/08/24 08/08/24 08/09/24 Range/Units 05:44 20:12 04:06 RBC (3.80-5.40) m/uL Hgb (11.4-16.0) gm/dL Hct (34.0-46.0) % Plt Count (150-450) k/uL Lymphocytes # (1.0-4.8) k/uL PT (10.0-12.5) sec INR (<1.2) APTT (22.0-30.0) sec ABG pH (7.35-7.45) ABG pO2 (83-108) mmHg ABG Total CO2 (19-24) mmol/L ABG O2 Saturation (94-97) % ABG Hematocrit (34.0-46.0) % ABG Ionized Calcium (4.5-5.3) mg/dL ABG Glucose (75-99) mg/dL Hemoglobin (11.4-16.0) gm/dL Chloride (98-107) mmol/L Glucose (74-99) mg/dL POC Glucose (mg/dL) 128 H 130 H (70-110) mg/dL Calcium (8.4-10.2) mg/dL Ionized Calcium Shila (4.5-5.3) mg/dL Magnesium (1.6-2.3) mg/dL Total Bilirubin (0.2-1.3) mg/dL AST (14-36) U/L Total Protein (6.3-8.2) g/dL Albumin (3.5-5.0) g/dL Arterial Blood Glucose (75-99) mg/dL Crossmatch See Detail 08/09/24 08/09/24 08/09/24 Range/Units 08:51 10:23 11:04 RBC (3.80-5.40) m/uL Hgb (11.4-16.0) gm/dL Hct (34.0-46.0) % Plt Count (150-450) k/uL Lymphocytes # (1.0-4.8) k/uL PT (10.0-12.5) sec INR (<1.2) APTT (22.0-30.0) sec ABG pH (7.35-7.45) ABG pO2 194 H 204 H 191 H (83-108) mmHg ABG Total CO2 (19-24) mmol/L ABG O2 Saturation 99.3 H 99.4 H 99.4 H (94-97) % ABG Hematocrit 27 L 26 L 25 L (34.0-46.0) % ABG Ionized Calcium 4.3 L (4.5-5.3) mg/dL ABG Glucose 111 H 130 H 132 H (75-99) mg/dL Hemoglobin 8.8 L 8.4 L 8.1 L (11.4-16.0) gm/dL Chloride (98-107) mmol/L Glucose (74-99) mg/dL POC Glucose (mg/dL) (70-110) mg/dL Calcium (8.4-10.2) mg/dL Ionized Calcium Shila (4.5-5.3) mg/dL Magnesium (1.6-2.3) mg/dL Total Bilirubin (0.2-1.3) mg/dL AST (14-36) U/L Total Protein (6.3-8.2) g/dL Albumin (3.5-5.0) g/dL Arterial Blood Glucose 111 H 130 H 132 H (75-99) mg/dL Crossmatch 08/09/24 08/09/24 08/09/24 Range/Units 11:37 12:06 13:15 RBC (3.80-5.40) m/uL Hgb (11.4-16.0) gm/dL Hct (34.0-46.0) % Plt Count (150-450) k/uL Lymphocytes # (1.0-4.8) k/uL PT (10.0-12.5) sec INR (<1.2) APTT (22.0-30.0) sec ABG pH (7.35-7.45) ABG pO2 178 H 132 H (83-108) mmHg ABG Total CO2 (19-24) mmol/L ABG O2 Saturation 99.4 H 99.0 H (94-97) % ABG Hematocrit 23 L 24 L (34.0-46.0) % ABG Ionized Calcium 4.3 L 4.3 L (4.5-5.3) mg/dL ABG Glucose 130 H 126 H (75-99) mg/dL Hemoglobin 7.6 L 7.8 L (11.4-16.0) gm/dL Chloride (98-107) mmol/L Glucose (74-99) mg/dL POC Glucose (mg/dL) 127 H (70-110) mg/dL Calcium (8.4-10.2) mg/dL Ionized Calcium Shila (4.5-5.3) mg/dL Magnesium (1.6-2.3) mg/dL Total Bilirubin (0.2-1.3) mg/dL AST (14-36) U/L Total Protein (6.3-8.2) g/dL Albumin (3.5-5.0) g/dL Arterial Blood Glucose 130 H 126 H (75-99) mg/dL Crossmatch 08/09/24 08/09/24 08/09/24 Range/Units 13:17 13:17 13:17 RBC 2.55 L (3.80-5.40) m/uL Hgb 7.9 L D (11.4-16.0) gm/dL Hct 23.4 L (34.0-46.0) % Plt Count 74 L (150-450) k/uL Lymphocytes # 0.6 L (1.0-4.8) k/uL PT 15.1 H (10.0-12.5) sec INR 1.5 H (<1.2) APTT 30.6 H (22.0-30.0) sec ABG pH (7.35-7.45) ABG pO2 (83-108) mmHg ABG Total CO2 (19-24) mmol/L ABG O2 Saturation (94-97) % ABG Hematocrit (34.0-46.0) % ABG Ionized Calcium (4.5-5.3) mg/dL ABG Glucose (75-99) mg/dL Hemoglobin (11.4-16.0) gm/dL Chloride 110 H (98-107) mmol/L Glucose 114 H (74-99) mg/dL POC Glucose (mg/dL) (70-110) mg/dL Calcium 7.6 L (8.4-10.2) mg/dL Ionized Calcium Shila 4.4 L (4.5-5.3) mg/dL Magnesium 1.3 L (1.6-2.3) mg/dL Total Bilirubin 2.6 H (0.2-1.3) mg/dL AST 37 H (14-36) U/L Total Protein 5.2 L (6.3-8.2) g/dL Albumin 3.0 L (3.5-5.0) g/dL Arterial Blood Glucose (75-99) mg/dL Crossmatch 08/09/24 08/09/24 08/09/24 Range/Units 13:26 14:13 15:16 RBC (3.80-5.40) m/uL Hgb (11.4-16.0) gm/dL Hct (34.0-46.0) % Plt Count (150-450) k/uL Lymphocytes # (1.0-4.8) k/uL PT (10.0-12.5) sec INR (<1.2) APTT (22.0-30.0) sec ABG pH 7.33 L (7.35-7.45) ABG pO2 >420 H (83-108) mmHg ABG Total CO2 25 H (19-24) mmol/L ABG O2 Saturation 100.5 H (94-97) % ABG Hematocrit (34.0-46.0) % ABG Ionized Calcium (4.5-5.3) mg/dL ABG Glucose (75-99) mg/dL Hemoglobin (11.4-16.0) gm/dL Chloride (98-107) mmol/L Glucose (74-99) mg/dL POC Glucose (mg/dL) 137 H 158 H (70-110) mg/dL Calcium (8.4-10.2) mg/dL Ionized Calcium Shila (4.5-5.3) mg/dL Magnesium (1.6-2.3) mg/dL Total Bilirubin (0.2-1.3) mg/dL AST (14-36) U/L Total Protein (6.3-8.2) g/dL Albumin (3.5-5.0) g/dL Arterial Blood Glucose (75-99) mg/dL Crossmatch 08/09/24 Range/Units 16:30 RBC (3.80-5.40) m/uL Hgb (11.4-16.0) gm/dL Hct (34.0-46.0) % Plt Count (150-450) k/uL Lymphocytes # (1.0-4.8) k/uL PT (10.0-12.5) sec INR (<1.2) APTT (22.0-30.0) sec ABG pH (7.35-7.45) ABG pO2 (83-108) mmHg ABG Total CO2 (19-24) mmol/L ABG O2 Saturation (94-97) % ABG Hematocrit (34.0-46.0) % ABG Ionized Calcium (4.5-5.3) mg/dL ABG Glucose (75-99) mg/dL Hemoglobin (11.4-16.0) gm/dL Chloride (98-107) mmol/L Glucose (74-99) mg/dL POC Glucose (mg/dL) 170 H (70-110) mg/dL Calcium (8.4-10.2) mg/dL Ionized Calcium Shila (4.5-5.3) mg/dL Magnesium (1.6-2.3) mg/dL Total Bilirubin (0.2-1.3) mg/dL AST (14-36) U/L Total Protein (6.3-8.2) g/dL Albumin (3.5-5.0) g/dL Arterial Blood Glucose (75-99) mg/dL Crossmatch Assessment and Plan Assessment: Multivessel coronary artery disease, with recent PCI/stenting to the ramus intermedius on 07/30/2024. Inability to stent left circumflex artery during the procedure. On 08/09/2024 the patient underwent an off-pump coronary bypass graft ing x 3 with a sequential PERSAUD to the diagonal and LAD, saphenous vein graft to the obtuse marginal branch of the RCA. Left atrial appendage clipping. Postoperative day #0 Mechanical ventilator management Unstable angina Bicytopenia, normocytic/normochromic anemia and thrombocytopenia History of hypertension History of hyperlipidemia Morbid obesity, with a BMI of 41.1 kg/m Former tobacco dependence, [id number] history, quit smoking cigarettes 3 years ago, still vapes Chronic marijuana smoker Bilateral carotid artery stenosis, left ICA carotid artery stenosis greater than 70% and right ICA carotid stenosis less than 50%, clinically asymptomatic Plan: The patient was seen and evaluated Chest x-ray, ABGs, labs and medications reviewed Increase the tidal volume to 450, decrease FiO2 to 45% Plan for early extubation protocol as tolerated Replace electrolytes We will continue to follow and make further recommendations based on her clinical status I have personally seen and examined the patient, performed the documentation and the assessment and plan as written. Number of minutes spent on the visit: 15.
[2024-08-09] MEDS: DEXTROSE 5% IN WATER 100 ML with AMIODARONE 150 MG IV PRN (17:10)
[2024-08-09 17:19] LABS: Platelet Count 90 k/uL (150-450)
[2024-08-09] MEDS: AMIODARONE 360 MG in DEXTROSE 5% IN WATER 200 ML IV PRN (17:20)
[2024-08-09 17:26] LABS: Glucose,Whole Blood 186 mg/dL (70-110)
[2024-08-09] MEDS: AMIODARONE 450 MG in DEXTROSE 5% IN WATER 250 ML IV PRN (17:50)
[2024-08-09] MEDS: DEXMEDETOMIDINE/0.9% NACL(PMX) 400 MCG in EMPTY BAG 1 BAG IV SCH (18:11)
[2024-08-09 18:24] LABS: Glucose,Whole Blood 176 mg/dL (70-110)
[2024-08-09 18:47] LABS: ABG Base Excess -2.9 mmol/L; ABG HCO3 22 mmol/L (21-25); ABG Oxygen Saturation 99.7 % (94-97); ABG PCO2 39 mmHg (35-45); ABG PH 7.37 (7.35-7.45); ABG PO2 137 mmHg (83-108); ABG TCO2 23 mmol/L (19-24)
[2024-08-09 18:48] LABS: Allen Test Performed? no
[2024-08-09 19:17] LABS: Glucose,Whole Blood 160 mg/dL (70-110)
[2024-08-09 20:07] LABS: Glucose,Whole Blood 149 mg/dL (70-110)
--- NOTE | 2024-08-09 20:23 | P.PN ---
Subjective Progress Note Date: 08/09/24 Principal diagnosis: CAD CAD this is a 49-year-old female patient with a past medical history significant for coronary artery disease as well as hypertension and dyslipidemia and multiple comorbid conditions who underwent recently PCI of the ramus intermedius and left circumflex and she also was found to have disease involving the left main coronary artery. She was admitted to the hospital with chest discomfort and abnormal troponin. Subsequently she was seen by the cardiothoracic surgical team and she was evaluated for CABG where she underwent a earlier today CABG x 3 with PERSAUD to LAD and diagonal and SVG to the acute marginal branch of the RCA. August 09, 2022 The patient was seen and evaluated earlier today. She continues to be intubated and the plan is to extubate the raters later on today. She seems to be hemodynamically stable which she seems to be maintaining normal sinus mechanism. She is on dual antiplatelet therapy with aspirin and Plavix along with intermediate intensity statin I would consider increasing the dose of statin down the line. The physical examination is remarkable for distant heart sounds with regular rate and rhythm and diminished breathing sounds bilaterally Assessment CAD status post CABG as described above Prior percutaneous revascularization Multiple comorbid conditions Plan Continue current medical regimen Consider increasing the dose of statin Monitor the kidney function and electrolytes and hemoglobin Follow-up with daily chest x-ray Monitor the urine output Follow-up with the patient Objective - Vital Signs Vital signs: Vital Signs Temp 97.5 F L 08/09/24 16:00 Pulse 73 08/09/24 19:15 Resp 21 08/09/24 19:15 BP 119/66 08/09/24 17:15 Pulse Ox 100 08/09/24 19:15 FiO2 45 08/09/24 18:16 Intake & Output 08/09/24 08/09/24 08/10/24 06:59 18:59 06:59 Intake Total 110 1813.127 270.379 Output Total 1440 200 Balance 110 373.127 70.379 Weight 105.1 kg Intake: IV 110 1687 250 0.9 @ 50 300 ACETAMINOPHEN IV (For NPO 200 ) 1,000 mg In Empty Bag 1 bag @ 400 mls/hr IVPB Q6HR GABO Rx#:[id number] Albumin Human 5% 250 ml 500 250 In Empty Bag 1 bag @ 250 mls/hr IVPB Q1HR PRN Rx#: [id number] CO/CI 180 Calcium Gluconate in NaCl 100 2 gm In Saline 1 100ml. bag @ 100 mls/hr IVPB ONCE PRN Rx#:[id number] Invasive Line 4 10 Magnesium Sulfate-D5w Pmx 300 1 gm In Dextrose/Water 1 100ml.bag @ 100 mls/hr IVPB Q1H GABO Rx#: [id number] pressure bags 54 Intake, IV Titration 126.127 20.379 Amount Amiodarone 360 mg In 17.267 Dextrose 5% in Water 200 ml @ 1 MG/MIN 34.533 mls/ hr IV .Q6H PRN Rx#: [id number] Clevidipine Butyrate 25 4.067 2.5 mg In Empty Bag 1 bag @ 1 MG/HR 2 mls/hr IV .Q24H GABO Rx#:[id number] Dexmedetomidine/0.9% NaCl 2.978 2.628 (Pmx) 400 mcg In Empty Bag 1 bag @ Titrate IV . Q0M GABO Rx#:[id number] Insulin Regular 100 unit 7.121 15.251 In Sodium Chloride 0.9% 100 ml @ Per Protocol IV .Q0M GABO Rx#:[id number] propofoL 1,000 mg In 94.694 Empty Bag 1 bag @ Titrate IV .Q0M GABO Rx#: [id number] Output: Chest Tube Drainage 225 75 Left Pleural 25 5 Mediastinal 200 70 Urine 965 125 Estimated Blood Loss 250 Other: Voiding Method Toilet Indwelling Catheter # Voids 0 ABP, PAP, CO, CI - Last Documented Arterial Blood Pressure 118/58 Pulmonary Artery Pressure 25/9 Cardiac Output 5.3 Cardiac Index 2.6 - Labs CBC & Chem 7: 08/09/24 16:30 08/09/24 13:17 Labs: Abnormal Lab Results - Last 24 Hours (Table) 08/08/24 08/09/24 08/09/24 Range/Units 05:44 04:06 08:51 RBC (3.80-5.40) m/uL Hgb (11.4-16.0) gm/dL Hct (34.0-46.0) % RDW (11.5-15.5) % Plt Count (150-450) k/uL Lymphocytes # (1.0-4.8) k/uL PT (10.0-12.5) sec INR (<1.2) APTT (22.0-30.0) sec ABG pH (7.35-7.45) ABG pO2 194 H (83-108) mmHg ABG Total CO2 (19-24) mmol/L ABG O2 Saturation 99.3 H (94-97) % ABG Hematocrit 27 L (34.0-46.0) % ABG Ionized Calcium (4.5-5.3) mg/dL ABG Glucose 111 H (75-99) mg/dL Hemoglobin 8.8 L (11.4-16.0) gm/dL Chloride (98-107) mmol/L Glucose (74-99) mg/dL POC Glucose (mg/dL) 130 H (70-110) mg/dL Calcium (8.4-10.2) mg/dL Ionized Calcium Shila (4.5-5.3) mg/dL Magnesium (1.6-2.3) mg/dL Total Bilirubin (0.2-1.3) mg/dL AST (14-36) U/L Total Protein (6.3-8.2) g/dL Albumin (3.5-5.0) g/dL Arterial Blood Glucose 111 H (75-99) mg/dL Crossmatch See Detail 08/09/24 08/09/24 08/09/24 Range/Units 10:23 11:04 11:37 RBC (3.80-5.40) m/uL Hgb (11.4-16.0) gm/dL Hct (34.0-46.0) % RDW (11.5-15.5) % Plt Count (150-450) k/uL Lymphocytes # (1.0-4.8) k/uL PT (10.0-12.5) sec INR (<1.2) APTT (22.0-30.0) sec ABG pH (7.35-7.45) ABG pO2 204 H 191 H 178 H (83-108) mmHg ABG Total CO2 (19-24) mmol/L ABG O2 Saturation 99.4 H 99.4 H 99.4 H (94-97) % ABG Hematocrit 26 L 25 L 23 L (34.0-46.0) % ABG Ionized Calcium 4.3 L 4.3 L (4.5-5.3) mg/dL ABG Glucose 130 H 132 H 130 H (75-99) mg/dL Hemoglobin 8.4 L 8.1 L 7.6 L (11.4-16.0) gm/dL Chloride (98-107) mmol/L Glucose (74-99) mg/dL POC Glucose (mg/dL) (70-110) mg/dL Calcium (8.4-10.2) mg/dL Ionized Calcium Shila (4.5-5.3) mg/dL Magnesium (1.6-2.3) mg/dL Total Bilirubin (0.2-1.3) mg/dL AST (14-36) U/L Total Protein (6.3-8.2) g/dL Albumin (3.5-5.0) g/dL Arterial Blood Glucose 130 H 132 H 130 H (75-99) mg/dL Crossmatch 08/09/24 08/09/24 08/09/24 Range/Units 12:06 13:15 13:17 RBC 2.55 L (3.80-5.40) m/uL Hgb 7.9 L D (11.4-16.0) gm/dL Hct 23.4 L (34.0-46.0) % RDW (11.5-15.5) % Plt Count 74 L (150-450) k/uL Lymphocytes # 0.6 L (1.0-4.8) k/uL PT (10.0-12.5) sec INR (<1.2) APTT (22.0-30.0) sec ABG pH (7.35-7.45) ABG pO2 132 H (83-108) mmHg ABG Total CO2 (19-24) mmol/L ABG O2 Saturation 99.0 H (94-97) % ABG Hematocrit 24 L (34.0-46.0) % ABG Ionized Calcium 4.3 L (4.5-5.3) mg/dL ABG Glucose 126 H (75-99) mg/dL Hemoglobin 7.8 L (11.4-16.0) gm/dL Chloride (98-107) mmol/L Glucose (74-99) mg/dL POC Glucose (mg/dL) 127 H (70-110) mg/dL Calcium (8.4-10.2) mg/dL Ionized Calcium Shila (4.5-5.3) mg/dL Magnesium (1.6-2.3) mg/dL Total Bilirubin (0.2-1.3) mg/dL AST (14-36) U/L Total Protein (6.3-8.2) g/dL Albumin (3.5-5.0) g/dL Arterial Blood Glucose 126 H (75-99) mg/dL Crossmatch 08/09/24 08/09/24 08/09/24 Range/Units 13:17 13:17 13:26 RBC (3.80-5.40) m/uL Hgb (11.4-16.0) gm/dL Hct (34.0-46.0) % RDW (11.5-15.5) % Plt Count (150-450) k/uL Lymphocytes # (1.0-4.8) k/uL PT 15.1 H (10.0-12.5) sec INR 1.5 H (<1.2) APTT 30.6 H (22.0-30.0) sec ABG pH 7.33 L (7.35-7.45) ABG pO2 >420 H (83-108) mmHg ABG Total CO2 25 H (19-24) mmol/L ABG O2 Saturation 100.5 H (94-97) % ABG Hematocrit (34.0-46.0) % ABG Ionized Calcium (4.5-5.3) mg/dL ABG Glucose (75-99) mg/dL Hemoglobin (11.4-16.0) gm/dL Chloride 110 H (98-107) mmol/L Glucose 114 H (74-99) mg/dL POC Glucose (mg/dL) (70-110) mg/dL Calcium 7.6 L (8.4-10.2) mg/dL Ionized Calcium Shila 4.4 L (4.5-5.3) mg/dL Magnesium 1.3 L (1.6-2.3) mg/dL Total Bilirubin 2.6 H (0.2-1.3) mg/dL AST 37 H (14-36) U/L Total Protein 5.2 L (6.3-8.2) g/dL Albumin 3.0 L (3.5-5.0) g/dL Arterial Blood Glucose (75-99) mg/dL Crossmatch 08/09/24 08/09/24 08/09/24 Range/Units 14:13 15:16 16:30 RBC 2.61 L (3.80-5.40) m/uL Hgb 8.0 L (11.4-16.0) gm/dL Hct 23.6 L (34.0-46.0) % RDW 15.8 H (11.5-15.5) % Plt Count 90 L (150-450) k/uL Lymphocytes # 0.8 L (1.0-4.8) k/uL PT (10.0-12.5) sec INR (<1.2) APTT (22.0-30.0) sec ABG pH (7.35-7.45) ABG pO2 (83-108) mmHg ABG Total CO2 (19-24) mmol/L ABG O2 Saturation (94-97) % ABG Hematocrit (34.0-46.0) % ABG Ionized Calcium (4.5-5.3) mg/dL ABG Glucose (75-99) mg/dL Hemoglobin (11.4-16.0) gm/dL Chloride (98-107) mmol/L Glucose (74-99) mg/dL POC Glucose (mg/dL) 137 H 158 H (70-110) mg/dL Calcium (8.4-10.2) mg/dL Ionized Calcium Shila (4.5-5.3) mg/dL Magnesium (1.6-2.3) mg/dL Total Bilirubin (0.2-1.3) mg/dL AST (14-36) U/L Total Protein (6.3-8.2) g/dL Albumin (3.5-5.0) g/dL Arterial Blood Glucose (75-99) mg/dL Crossmatch 08/09/24 08/09/24 08/09/24 Range/Units 16:30 17:25 18:23 RBC (3.80-5.40) m/uL Hgb (11.4-16.0) gm/dL Hct (34.0-46.0) % RDW (11.5-15.5) % Plt Count (150-450) k/uL Lymphocytes # (1.0-4.8) k/uL PT (10.0-12.5) sec INR (<1.2) APTT (22.0-30.0) sec ABG pH (7.35-7.45) ABG pO2 (83-108) mmHg ABG Total CO2 (19-24) mmol/L ABG O2 Saturation (94-97) % ABG Hematocrit (34.0-46.0) % ABG Ionized Calcium (4.5-5.3) mg/dL ABG Glucose (75-99) mg/dL Hemoglobin (11.4-16.0) gm/dL Chloride (98-107) mmol/L Glucose (74-99) mg/dL POC Glucose (mg/dL) 170 H 186 H 176 H (70-110) mg/dL Calcium (8.4-10.2) mg/dL Ionized Calcium Shila (4.5-5.3) mg/dL Magnesium (1.6-2.3) mg/dL Total Bilirubin (0.2-1.3) mg/dL AST (14-36) U/L Total Protein (6.3-8.2) g/dL Albumin (3.5-5.0) g/dL Arterial Blood Glucose (75-99) mg/dL Crossmatch 08/09/24 08/09/24 08/09/24 Range/Units 18:46 19:15 20:05 RBC (3.80-5.40) m/uL Hgb (11.4-16.0) gm/dL Hct (34.0-46.0) % RDW (11.5-15.5) % Plt Count (150-450) k/uL Lymphocytes # (1.0-4.8) k/uL PT (10.0-12.5) sec INR (<1.2) APTT (22.0-30.0) sec ABG pH (7.35-7.45) ABG pO2 137 H (83-108) mmHg ABG Total CO2 (19-24) mmol/L ABG O2 Saturation 99.7 H (94-97) % ABG Hematocrit (34.0-46.0) % ABG Ionized Calcium (4.5-5.3) mg/dL ABG Glucose (75-99) mg/dL Hemoglobin (11.4-16.0) gm/dL Chloride (98-107) mmol/L Glucose (74-99) mg/dL POC Glucose (mg/dL) 160 H 149 H (70-110) mg/dL Calcium (8.4-10.2) mg/dL Ionized Calcium Shila (4.5-5.3) mg/dL Magnesium (1.6-2.3) mg/dL Total Bilirubin (0.2-1.3) mg/dL AST (14-36) U/L Total Protein (6.3-8.2) g/dL Albumin (3.5-5.0) g/dL Arterial Blood Glucose (75-99) mg/dL Crossmatch
[2024-08-09 20:41] LABS: Anisocytosis Slight; Basophils % (A) 0 %; Eosinophils # (A) 0.1 k/uL (0-0.7); Eosinophils % (A) 2 %; HGB 7.7 gm/dL (11.4-16.0); Lymphocytes # (A) 0.5 k/uL (1.0-4.8); Lymphocytes % (A) 9 %; MCH 30.4 pg (25.0-35.0); MCHC 33.6 g/dL (31.0-37.0); MCV 90.6 fL (80.0-100.0); Mean Platelet Volume 12.2; Monocytes # (A) 0.4 k/uL (0-1.0); Monocytes % (A) 7 %; Neutrophils # (A) 4.7 k/uL (1.3-7.7); Neutrophils % (A) 81 %; RBC 2.54 m/uL (3.80-5.40); WBC 5.8 k/uL (3.8-10.6)
[2024-08-09 21:03] LABS: Platelet Count 77 k/uL (150-450)
[2024-08-09 21:30] LABS: Glucose,Whole Blood 140 mg/dL (70-110)
[2024-08-09] MEDS: MUPIROCIN 2% OINT 22 GM TUBE NASAL SCH (21:32)
[2024-08-09 22:34] LABS: Glucose,Whole Blood 132 mg/dL (70-110)
[2024-08-09 23:17] LABS: Glucose,Whole Blood 133 mg/dL (70-110)
[2024-08-10 00:27] LABS: Glucose,Whole Blood 131 mg/dL (70-110)
[2024-08-10 01:21] LABS: Glucose,Whole Blood 128 mg/dL (70-110)
[2024-08-10 02:20] LABS: Glucose,Whole Blood 129 mg/dL (70-110)
[2024-08-10 03:18] LABS: Glucose,Whole Blood 126 mg/dL (70-110)
[2024-08-10 04:18] LABS: Glucose,Whole Blood 125 mg/dL (70-110)
[2024-08-10 05:10] LABS: Anisocytosis Slight; Basophils % (A) 0 %; Eosinophils % (A) 0 %; HCT 24.9 % (34.0-46.0); HGB 8.5 gm/dL (11.4-16.0); Lymphocytes # (A) 0.9 k/uL (1.0-4.8); Lymphocytes % (A) 8 %; MCH 31.2 pg (25.0-35.0); MCHC 34.3 g/dL (31.0-37.0); MCV 90.9 fL (80.0-100.0); Mean Platelet Volume 11.2; Monocytes # (A) 0.7 k/uL (0-1.0); Monocytes % (A) 6 %; Neutrophils # (A) 9.2 k/uL (1.3-7.7); Neutrophils % (A) 84 %; Poikilocytosis Slight; RBC 2.74 m/uL (3.80-5.40); RDW 16.3 % (11.5-15.5)
[2024-08-10 05:13] LABS: Glucose,Whole Blood 123 mg/dL (70-110)
[2024-08-10 05:15] LABS: Platelet Count 125 k/uL (150-450)
[2024-08-10 05:43] LABS: Ionized Calcium 4.6 mg/dL (4.5-5.3)
[2024-08-10 05:58] LABS: Chloride 108 mmol/L (98-107); Glucose 109 mg/dL (74-99); Potassium 4.3 mmol/L (3.5-5.1); Sodium 137 mmol/L (137-145)
[2024-08-10 05:59] LABS: ALT 21 U/L (4-34); AST 46 U/L (14-36); African American GFR (CKD) >90 (>60 ml/min/1.73 sqM); Albumin 3.3 g/dL (3.5-5.0); Alkaline Phosphatase 55 U/L (38-126); Anion Gap 7 mmol/L; Blood Urea Nitrogen 10 mg/dL (7-17); Calcium 7.9 mg/dL (8.4-10.2); Carbon Dioxide 22 mmol/L (22-30); Magnesium 1.8 mg/dL (1.6-2.3); Non-African American GFR(CKD) >90 (>60 ml/min/1.73 sqM); Total Bilirubin 2.6 mg/dL (0.2-1.3); Total Protein 5.4 g/dL (6.3-8.2)
[2024-08-10 06:23] LABS: Glucose,Whole Blood 127 mg/dL (70-110)
[2024-08-10] MEDS: MAGNESIUM SULFATE-D5W PMX 1 GM in DEXTROSE/WATER 1 100ML.BAG IVPB ONE (06:50)
[2024-08-10 07:04] LABS: Glucose,Whole Blood 130 mg/dL (70-110)
--- NOTE | 2024-08-10 07:43 | P.PN ---
Subjective Progress Note Date: 08/10/24 Principal diagnosis: CAD CAD this is a 49-year-old female patient with a past medical history significant for coronary artery disease as well as hypertension and dyslipidemia and multiple comorbid conditions who underwent recently PCI of the ramus intermedius and left circumflex and she also was found to have disease involving the left main coronary artery. She was admitted to the hospital with chest discomfort and abnormal troponin. Subsequently she was seen by the cardiothoracic surgical team and she was evaluated for CABG where she underwent a earlier today CABG x 3 with PERSAUD to LAD and diagonal and SVG to the acute marginal branch of the RCA. August 09, 2022 The patient was seen and evaluated earlier today. She continues to be intubated and the plan is to extubate the raters later on today. She seems to be hemodynamically stable which she seems to be maintaining normal sinus mechanism. She is on dual antiplatelet therapy with aspirin and Plavix along with intermediate intensity statin I would consider increasing the dose of statin down the line. The physical examination is remarkable for distant heart sounds with regular rate and rhythm and diminished breathing sounds bilaterally August 10, 2024 The patient was seen and evaluated this morning which she was extubated last night around 7 PM. Overall she seems to be stable. She was experiencing yesterday PVCs and runs of nonsustained ventricular tachycardia and for that reason she was started on low-dose amiodarone IV. Hemoglobin is stable. Electrolytes are stable. Urine output is good as well. On examination she has regular rhythm with a systolic murmur at the right upper sternal border with clear breathing sounds bilaterally and no edema was noted in the lower extremities. Assessment CAD status post CABG as described above Prior percutaneous revascularization Cardiac arrhythmia with PVCs and runs of NSVT Plan Continue current medical regimen Continue monitor the kidney function and electrolytes and hemoglobin Continue monitoring urine output Follow-up with the patient Objective - Vital Signs Vital signs: Vital Signs Temp 99.5 F 08/10/24 04:00 Pulse 81 08/10/24 07:00 Resp 23 08/10/24 07:00 BP 111/58 08/10/24 04:15 Pulse Ox 96 08/10/24 06:30 FiO2 45 08/09/24 18:16 Intake & Output 08/09/24 08/10/24 08/10/24 18:59 06:59 18:59 Intake Total 7993.149 8892.219 79 Output Total 1440 1273 70 Balance 373.127 -146.781 9 Weight 108.3 kg Intake: IV 1687 1059 79 0.9 @ 50 300 550 50 ACETAMINOPHEN IV (For NPO 200 ) 1,000 mg In Empty Bag 1 bag @ 400 mls/hr IVPB Q6HR GABO Rx#:[id number] Albumin Human 5% 250 ml 500 250 In Empty Bag 1 bag @ 250 mls/hr IVPB Q1HR PRN Rx#: [id number] CO/CI 180 110 20 Calcium Gluconate in NaCl 100 2 gm In Saline 1 100ml. bag @ 100 mls/hr IVPB ONCE PRN Rx#:[id number] Magnesium Sulfate-D5w Pmx 300 1 gm In Dextrose/Water 1 100ml.bag @ 100 mls/hr IVPB Q1H GABO Rx#: [id number] ceFAZolin 2 gm In Sodium 50 Chloride 0.9% 50 ml @ 100 mls/hr IVPB Q8HR GABO Rx# :[id number] pressure bags 54 99 9 Intake, IV Titration 126.127 67.219 Amount Amiodarone 360 mg In 17.267 Dextrose 5% in Water 200 ml @ 1 MG/MIN 34.533 mls/ hr IV .Q6H PRN Rx#: [id number] Clevidipine Butyrate 25 4.067 2.5 mg In Empty Bag 1 bag @ 1 MG/HR 2 mls/hr IV .Q24H GABO Rx#:[id number] Dexmedetomidine/0.9% NaCl 2.978 2.628 (Pmx) 400 mcg In Empty Bag 1 bag @ Titrate IV . Q0M GABO Rx#:[id number] Insulin Regular 100 unit 7.121 62.091 In Sodium Chloride 0.9% 100 ml @ Per Protocol IV .Q0M GABO Rx#:[id number] propofoL 1,000 mg In 94.694 Empty Bag 1 bag @ Titrate IV .Q0M GABO Rx#: [id number] Output: Chest Tube Drainage 225 583 40 Left Pleural 25 133 10 Mediastinal 200 450 30 Urine 965 690 30 Estimated Blood Loss 250 Other: Voiding Method Indwelling Catheter Indwelling Catheter ABP, PAP, CO, CI - Last Documented Arterial Blood Pressure 115/54 Pulmonary Artery Pressure 23/18 Cardiac Output 4.7 Cardiac Index 2.3 - Labs CBC & Chem 7: 08/10/24 04:12 08/10/24 04:12 Labs: Abnormal Lab Results - Last 24 Hours (Table) 08/08/24 08/09/24 08/09/24 Range/Units 05:44 08:51 10:23 WBC (3.8-10.6) k/uL RBC (3.80-5.40) m/uL Hgb (11.4-16.0) gm/dL Hct (34.0-46.0) % RDW (11.5-15.5) % Plt Count (150-450) k/uL Neutrophils # (1.3-7.7) k/uL Lymphocytes # (1.0-4.8) k/uL PT (10.0-12.5) sec INR (<1.2) APTT (22.0-30.0) sec ABG pH (7.35-7.45) ABG pO2 194 H 204 H (83-108) mmHg ABG Total CO2 (19-24) mmol/L ABG O2 Saturation 99.3 H 99.4 H (94-97) % ABG Hematocrit 27 L 26 L (34.0-46.0) % ABG Ionized Calcium (4.5-5.3) mg/dL ABG Glucose 111 H 130 H (75-99) mg/dL Hemoglobin 8.8 L 8.4 L (11.4-16.0) gm/dL Chloride (98-107) mmol/L Glucose (74-99) mg/dL POC Glucose (mg/dL) (70-110) mg/dL Calcium (8.4-10.2) mg/dL Ionized Calcium Shila (4.5-5.3) mg/dL Magnesium (1.6-2.3) mg/dL Total Bilirubin (0.2-1.3) mg/dL AST (14-36) U/L Total Protein (6.3-8.2) g/dL Albumin (3.5-5.0) g/dL Arterial Blood Glucose 111 H 130 H (75-99) mg/dL Crossmatch See Detail 08/09/24 08/09/24 08/09/24 Range/Units 11:04 11:37 12:06 WBC (3.8-10.6) k/uL RBC (3.80-5.40) m/uL Hgb (11.4-16.0) gm/dL Hct (34.0-46.0) % RDW (11.5-15.5) % Plt Count (150-450) k/uL Neutrophils # (1.3-7.7) k/uL Lymphocytes # (1.0-4.8) k/uL PT (10.0-12.5) sec INR (<1.2) APTT (22.0-30.0) sec ABG pH (7.35-7.45) ABG pO2 191 H 178 H 132 H (83-108) mmHg ABG Total CO2 (19-24) mmol/L ABG O2 Saturation 99.4 H 99.4 H 99.0 H (94-97) % ABG Hematocrit 25 L 23 L 24 L (34.0-46.0) % ABG Ionized Calcium 4.3 L 4.3 L 4.3 L (4.5-5.3) mg/dL ABG Glucose 132 H 130 H 126 H (75-99) mg/dL Hemoglobin 8.1 L 7.6 L 7.8 L (11.4-16.0) gm/dL Chloride (98-107) mmol/L Glucose (74-99) mg/dL POC Glucose (mg/dL) (70-110) mg/dL Calcium (8.4-10.2) mg/dL Ionized Calcium Shila (4.5-5.3) mg/dL Magnesium (1.6-2.3) mg/dL Total Bilirubin (0.2-1.3) mg/dL AST (14-36) U/L Total Protein (6.3-8.2) g/dL Albumin (3.5-5.0) g/dL Arterial Blood Glucose 132 H 130 H 126 H (75-99) mg/dL Crossmatch 08/09/24 08/09/24 08/09/24 Range/Units 13:15 13:17 13:17 WBC (3.8-10.6) k/uL RBC 2.55 L (3.80-5.40) m/uL Hgb 7.9 L D (11.4-16.0) gm/dL Hct 23.4 L (34.0-46.0) % RDW (11.5-15.5) % Plt Count 74 L (150-450) k/uL Neutrophils # (1.3-7.7) k/uL Lymphocytes # 0.6 L (1.0-4.8) k/uL PT 15.1 H (10.0-12.5) sec INR 1.5 H (<1.2) APTT 30.6 H (22.0-30.0) sec ABG pH (7.35-7.45) ABG pO2 (83-108) mmHg ABG Total CO2 (19-24) mmol/L ABG O2 Saturation (94-97) % ABG Hematocrit (34.0-46.0) % ABG Ionized Calcium (4.5-5.3) mg/dL ABG Glucose (75-99) mg/dL Hemoglobin (11.4-16.0) gm/dL Chloride (98-107) mmol/L Glucose (74-99) mg/dL POC Glucose (mg/dL) 127 H (70-110) mg/dL Calcium (8.4-10.2) mg/dL Ionized Calcium Shila (4.5-5.3) mg/dL Magnesium (1.6-2.3) mg/dL Total Bilirubin (0.2-1.3) mg/dL AST (14-36) U/L Total Protein (6.3-8.2) g/dL Albumin (3.5-5.0) g/dL Arterial Blood Glucose (75-99) mg/dL Crossmatch 08/09/24 08/09/24 08/09/24 Range/Units 13:17 13:26 14:13 WBC (3.8-10.6) k/uL RBC (3.80-5.40) m/uL Hgb (11.4-16.0) gm/dL Hct (34.0-46.0) % RDW (11.5-15.5) % Plt Count (150-450) k/uL Neutrophils # (1.3-7.7) k/uL Lymphocytes # (1.0-4.8) k/uL PT (10.0-12.5) sec INR (<1.2) APTT (22.0-30.0) sec ABG pH 7.33 L (7.35-7.45) ABG pO2 >420 H (83-108) mmHg ABG Total CO2 25 H (19-24) mmol/L ABG O2 Saturation 100.5 H (94-97) % ABG Hematocrit (34.0-46.0) % ABG Ionized Calcium (4.5-5.3) mg/dL ABG Glucose (75-99) mg/dL Hemoglobin (11.4-16.0) gm/dL Chloride 110 H (98-107) mmol/L Glucose 114 H (74-99) mg/dL POC Glucose (mg/dL) 137 H (70-110) mg/dL Calcium 7.6 L (8.4-10.2) mg/dL Ionized Calcium Shila 4.4 L (4.5-5.3) mg/dL Magnesium 1.3 L (1.6-2.3) mg/dL Total Bilirubin 2.6 H (0.2-1.3) mg/dL AST 37 H (14-36) U/L Total Protein 5.2 L (6.3-8.2) g/dL Albumin 3.0 L (3.5-5.0) g/dL Arterial Blood Glucose (75-99) mg/dL Crossmatch 08/09/24 08/09/24 08/09/24 Range/Units 15:16 16:30 16:30 WBC (3.8-10.6) k/uL RBC 2.61 L (3.80-5.40) m/uL Hgb 8.0 L (11.4-16.0) gm/dL Hct 23.6 L (34.0-46.0) % RDW 15.8 H (11.5-15.5) % Plt Count 90 L (150-450) k/uL Neutrophils # (1.3-7.7) k/uL Lymphocytes # 0.8 L (1.0-4.8) k/uL PT (10.0-12.5) sec INR (<1.2) APTT (22.0-30.0) sec ABG pH (7.35-7.45) ABG pO2 (83-108) mmHg ABG Total CO2 (19-24) mmol/L ABG O2 Saturation (94-97) % ABG Hematocrit (34.0-46.0) % ABG Ionized Calcium (4.5-5.3) mg/dL ABG Glucose (75-99) mg/dL Hemoglobin (11.4-16.0) gm/dL Chloride (98-107) mmol/L Glucose (74-99) mg/dL POC Glucose (mg/dL) 158 H 170 H (70-110) mg/dL Calcium (8.4-10.2) mg/dL Ionized Calcium Shila (4.5-5.3) mg/dL Magnesium (1.6-2.3) mg/dL Total Bilirubin (0.2-1.3) mg/dL AST (14-36) U/L Total Protein (6.3-8.2) g/dL Albumin (3.5-5.0) g/dL Arterial Blood Glucose (75-99) mg/dL Crossmatch 08/09/24 08/09/24 08/09/24 Range/Units 17:25 18:23 18:46 WBC (3.8-10.6) k/uL RBC (3.80-5.40) m/uL Hgb (11.4-16.0) gm/dL Hct (34.0-46.0) % RDW (11.5-15.5) % Plt Count (150-450) k/uL Neutrophils # (1.3-7.7) k/uL Lymphocytes # (1.0-4.8) k/uL PT (10.0-12.5) sec INR (<1.2) APTT (22.0-30.0) sec ABG pH (7.35-7.45) ABG pO2 137 H (83-108) mmHg ABG Total CO2 (19-24) mmol/L ABG O2 Saturation 99.7 H (94-97) % ABG Hematocrit (34.0-46.0) % ABG Ionized Calcium (4.5-5.3) mg/dL ABG Glucose (75-99) mg/dL Hemoglobin (11.4-16.0) gm/dL Chloride (98-107) mmol/L Glucose (74-99) mg/dL POC Glucose (mg/dL) 186 H 176 H (70-110) mg/dL Calcium (8.4-10.2) mg/dL Ionized Calcium Shila (4.5-5.3) mg/dL Magnesium (1.6-2.3) mg/dL Total Bilirubin (0.2-1.3) mg/dL AST (14-36) U/L Total Protein (6.3-8.2) g/dL Albumin (3.5-5.0) g/dL Arterial Blood Glucose (75-99) mg/dL Crossmatch 08/09/24 08/09/24 08/09/24 Range/Units 19:15 19:30 20:05 WBC (3.8-10.6) k/uL RBC 2.54 L (3.80-5.40) m/uL Hgb 7.7 L (11.4-16.0) gm/dL Hct 23.0 L (34.0-46.0) % RDW 16.0 H (11.5-15.5) % Plt Count 77 L (150-450) k/uL Neutrophils # (1.3-7.7) k/uL Lymphocytes # 0.5 L (1.0-4.8) k/uL PT (10.0-12.5) sec INR (<1.2) APTT (22.0-30.0) sec ABG pH (7.35-7.45) ABG pO2 (83-108) mmHg ABG Total CO2 (19-24) mmol/L ABG O2 Saturation (94-97) % ABG Hematocrit (34.0-46.0) % ABG Ionized Calcium (4.5-5.3) mg/dL ABG Glucose (75-99) mg/dL Hemoglobin (11.4-16.0) gm/dL Chloride (98-107) mmol/L Glucose (74-99) mg/dL POC Glucose (mg/dL) 160 H 149 H (70-110) mg/dL Calcium (8.4-10.2) mg/dL Ionized Calcium Shila (4.5-5.3) mg/dL Magnesium (1.6-2.3) mg/dL Total Bilirubin (0.2-1.3) mg/dL AST (14-36) U/L Total Protein (6.3-8.2) g/dL Albumin (3.5-5.0) g/dL Arterial Blood Glucose (75-99) mg/dL Crossmatch 08/09/24 08/09/24 08/09/24 Range/Units 21:28 22:33 23:16 WBC (3.8-10.6) k/uL RBC (3.80-5.40) m/uL Hgb (11.4-16.0) gm/dL Hct (34.0-46.0) % RDW (11.5-15.5) % Plt Count (150-450) k/uL Neutrophils # (1.3-7.7) k/uL Lymphocytes # (1.0-4.8) k/uL PT (10.0-12.5) sec INR (<1.2) APTT (22.0-30.0) sec ABG pH (7.35-7.45) ABG pO2 (83-108) mmHg ABG Total CO2 (19-24) mmol/L ABG O2 Saturation (94-97) % ABG Hematocrit (34.0-46.0) % ABG Ionized Calcium (4.5-5.3) mg/dL ABG Glucose (75-99) mg/dL Hemoglobin (11.4-16.0) gm/dL Chloride (98-107) mmol/L Glucose (74-99) mg/dL POC Glucose (mg/dL) 140 H 132 H 133 H (70-110) mg/dL Calcium (8.4-10.2) mg/dL Ionized Calcium Shila (4.5-5.3) mg/dL Magnesium (1.6-2.3) mg/dL Total Bilirubin (0.2-1.3) mg/dL AST (14-36) U/L Total Protein (6.3-8.2) g/dL Albumin (3.5-5.0) g/dL Arterial Blood Glucose (75-99) mg/dL Crossmatch 08/10/24 08/10/24 08/10/24 Range/Units 00:25 01:09 02:09 WBC (3.8-10.6) k/uL RBC (3.80-5.40) m/uL Hgb (11.4-16.0) gm/dL Hct (34.0-46.0) % RDW (11.5-15.5) % Plt Count (150-450) k/uL Neutrophils # (1.3-7.7) k/uL Lymphocytes # (1.0-4.8) k/uL PT (10.0-12.5) sec INR (<1.2) APTT (22.0-30.0) sec ABG pH (7.35-7.45) ABG pO2 (83-108) mmHg ABG Total CO2 (19-24) mmol/L ABG O2 Saturation (94-97) % ABG Hematocrit (34.0-46.0) % ABG Ionized Calcium (4.5-5.3) mg/dL ABG Glucose (75-99) mg/dL Hemoglobin (11.4-16.0) gm/dL Chloride (98-107) mmol/L Glucose (74-99) mg/dL POC Glucose (mg/dL) 131 H 128 H 129 H (70-110) mg/dL Calcium (8.4-10.2) mg/dL Ionized Calcium Shila (4.5-5.3) mg/dL Magnesium (1.6-2.3) mg/dL Total Bilirubin (0.2-1.3) mg/dL AST (14-36) U/L Total Protein (6.3-8.2) g/dL Albumin (3.5-5.0) g/dL Arterial Blood Glucose (75-99) mg/dL Crossmatch 08/10/24 08/10/24 08/10/24 Range/Units 03:17 04:12 04:12 WBC 11.0 H (3.8-10.6) k/uL RBC 2.74 L (3.80-5.40) m/uL Hgb 8.5 L (11.4-16.0) gm/dL Hct 24.9 L (34.0-46.0) % RDW 16.3 H (11.5-15.5) % Plt Count 125 L D (150-450) k/uL Neutrophils # 9.2 H (1.3-7.7) k/uL Lymphocytes # 0.9 L (1.0-4.8) k/uL PT (10.0-12.5) sec INR (<1.2) APTT (22.0-30.0) sec ABG pH (7.35-7.45) ABG pO2 (83-108) mmHg ABG Total CO2 (19-24) mmol/L ABG O2 Saturation (94-97) % ABG Hematocrit (34.0-46.0) % ABG Ionized Calcium (4.5-5.3) mg/dL ABG Glucose (75-99) mg/dL Hemoglobin (11.4-16.0) gm/dL Chloride 108 H (98-107) mmol/L Glucose 109 H (74-99) mg/dL POC Glucose (mg/dL) 126 H (70-110) mg/dL Calcium 7.9 L (8.4-10.2) mg/dL Ionized Calcium Shila (4.5-5.3) mg/dL Magnesium (1.6-2.3) mg/dL Total Bilirubin 2.6 H (0.2-1.3) mg/dL AST 46 H (14-36) U/L Total Protein 5.4 L (6.3-8.2) g/dL Albumin 3.3 L (3.5-5.0) g/dL Arterial Blood Glucose (75-99) mg/dL Crossmatch 08/10/24 08/10/24 08/10/24 Range/Units 04:16 05:12 06:20 WBC (3.8-10.6) k/uL RBC (3.80-5.40) m/uL Hgb (11.4-16.0) gm/dL Hct (34.0-46.0) % RDW (11.5-15.5) % Plt Count (150-450) k/uL Neutrophils # (1.3-7.7) k/uL Lymphocytes # (1.0-4.8) k/uL PT (10.0-12.5) sec INR (<1.2) APTT (22.0-30.0) sec ABG pH (7.35-7.45) ABG pO2 (83-108) mmHg ABG Total CO2 (19-24) mmol/L ABG O2 Saturation (94-97) % ABG Hematocrit (34.0-46.0) % ABG Ionized Calcium (4.5-5.3) mg/dL ABG Glucose (75-99) mg/dL Hemoglobin (11.4-16.0) gm/dL Chloride (98-107) mmol/L Glucose (74-99) mg/dL POC Glucose (mg/dL) 125 H 123 H 127 H (70-110) mg/dL Calcium (8.4-10.2) mg/dL Ionized Calcium Shila (4.5-5.3) mg/dL Magnesium (1.6-2.3) mg/dL Total Bilirubin (0.2-1.3) mg/dL AST (14-36) U/L Total Protein (6.3-8.2) g/dL Albumin (3.5-5.0) g/dL Arterial Blood Glucose (75-99) mg/dL Crossmatch 08/10/24 Range/Units 07:03 WBC (3.8-10.6) k/uL RBC (3.80-5.40) m/uL Hgb (11.4-16.0) gm/dL Hct (34.0-46.0) % RDW (11.5-15.5) % Plt Count (150-450) k/uL Neutrophils # (1.3-7.7) k/uL Lymphocytes # (1.0-4.8) k/uL PT (10.0-12.5) sec INR (<1.2) APTT (22.0-30.0) sec ABG pH (7.35-7.45) ABG pO2 (83-108) mmHg ABG Total CO2 (19-24) mmol/L ABG O2 Saturation (94-97) % ABG Hematocrit (34.0-46.0) % ABG Ionized Calcium (4.5-5.3) mg/dL ABG Glucose (75-99) mg/dL Hemoglobin (11.4-16.0) gm/dL Chloride (98-107) mmol/L Glucose (74-99) mg/dL POC Glucose (mg/dL) 130 H (70-110) mg/dL Calcium (8.4-10.2) mg/dL Ionized Calcium Shila (4.5-5.3) mg/dL Magnesium (1.6-2.3) mg/dL Total Bilirubin (0.2-1.3) mg/dL AST (14-36) U/L Total Protein (6.3-8.2) g/dL Albumin (3.5-5.0) g/dL Arterial Blood Glucose (75-99) mg/dL Crossmatch
[2024-08-10 08:31] LABS: Glucose,Whole Blood 143 mg/dL (70-110)
[2024-08-10] MEDS: FONDAPARINUX 2.5 MG/0.5 ML SYRINGE SQ SCH (08:32)
[2024-08-10] MEDS: CLOPIDOGREL 75 MG TAB PO SCH (08:33)
[2024-08-10] MEDS: ATORVASTATIN 40 MG TAB PO SCH (08:33)
[2024-08-10] MEDS: ASPIRIN 325 MG TAB PO SCH (08:33)
[2024-08-10] MEDS: METOPROLOL TARTRATE 12.5 MG TAB PO SCH (08:33)
--- NOTE | 2024-08-10 08:45 | XR ---
EXAMINATION TYPE: XR chest 1V portable DATE OF EXAM: 08/10/2024 HISTORY: Post Op CABG COMPARISON: NONE TECHNIQUE: Single view of the chest is submitted. FINDINGS: SG catheter, mediastinal drains and chest tubes are appropriately placed. Endotracheal tube and NG tu be have been removed. Post operative changes of CABG. No sizeable pneumothorax. Scattered Pleural-parenchymal opacities may reflect atelectasis. There is evidence of cardiomegaly with pulmonary venous congestion scattered pleural-parenchymal opac ities. IMPRESSION: 1. Post operative changes of CABG.
[2024-08-10] MEDS ORDERED: bisacodyL 10 MG SUPP RECTAL PRN (09:00)
--- NOTE | 2024-08-10 09:08 | P.PN ---
Subjective Progress Note Date: 08/10/24 Principal diagnosis: Coronary artery disease status post recent stentto her ramus coronary artery, currently on Brilinta, elevated serial troponins on admission, troponin 0.045 with peak 0.054. Past medical history significant for hypertension, diet- controlled diabetes with a hemoglobin A1c of 5.8%, bipolar disorder, previous tobacco cessation with recent cessation from vaping, history of EtOH abuse, chronically elevated transaminase enzymes and marijuana use. POD #1 Off-pump coronary artery bypass grafting x 3 with sequential left internal mammary artery to diagonal coronary artery and left anterior descending coronary artery, saphenous vein graft to acute marginal branch of the right coronary artery, endovascular vein harvest of the greater saphenous vein from the left thigh, exclusion of the left atrial appendage with a 35 mm AtriCure clip. Intraoperative transesophageal echocardiogram performed by anesthesia. Postoperative acute blood loss anemia and thrombocytopenia, expected given the patient's preoperative anemia and thrombocytopenia and hemodilution. The patient was seen and examined in follow-up today August 10, 2024 at her bedside in the intensive care unit. She was successfully extubated at 6:53 PM last evening, currently is on 2 L nasal cannula with oxygen saturations 96% and she is achieving 1000 mL on her incentive spirometry with encouragement. She denies any complaints of shortness of breath at this time, although is complaining of some surgical type pain, currently rating her pain 8 out of 10 on the pain scale to her left chest tube insertion site. Bedside telemetry is showing normal sinus rhythm heart rate 84 bpm. She was having some frequent PVCs last evening and was started on amiodarone drip at 0.5 mg/min. No further ectopy has been reported. Mediastinal and left pleural chest tubes remain in place to low continuous wall suction -20 cm H2O. No air leak is present. Draining thin serosanguineous drainage. Left pleural chest tube drained 85 mL in the last 8 hours and 160 mL since surgery. Mediastinal chest tube drained 250 mL in the last 8 hours and 650 mL since surgery. Urine output has been adequate with 450 mL in the last 8 hours. Right IJ cordis and Ashaway-Tiffanie catheter remains in place with current hemodynamic showing a cardiac output of 4.7, cardiac index 2.3, PA pressures 26/21, CVP 8 mmHg and SVR 1229. Chest x- ray and laboratory results were reviewed. Objective - Vital Signs Vital signs: Vital Signs Temp 99.5 F 08/10/24 04:00 Pulse 81 08/10/24 07:00 Resp 23 08/10/24 07:00 BP 111/58 08/10/24 04:15 Pulse Ox 96 08/10/24 06:30 FiO2 45 08/09/24 18:16 Intake & Output 08/09/24 08/10/24 08/10/24 18:59 06:59 18:59 Intake Total 3867.087 4515.219 79 Output Total 1440 1273 70 Balance 373.127 -146.781 9 Weight 108.3 kg Intake: IV 1687 1059 79 0.9 @ 50 300 550 50 ACETAMINOPHEN IV (For NPO 200 ) 1,000 mg In Empty Bag 1 bag @ 400 mls/hr IVPB Q6HR [facility] Rx#:[id number] Albumin Human 5% 250 ml 500 250 In Empty Bag 1 bag @ 250 mls/hr IVPB Q1HR PRN Rx#: [id number] CO/CI 180 110 20 Calcium Gluconate in NaCl 100 2 gm In Saline 1 100ml. bag @ 100 mls/hr IVPB ONCE PRN Rx#:[id number] Magnesium Sulfate-D5w Pmx 300 1 gm In Dextrose/Water 1 100ml.bag @ 100 mls/hr IVPB Q1H [facility] Rx#: [id number] ceFAZolin 2 gm In Sodium 50 Chloride 0.9% 50 ml @ 100 mls/hr IVPB Q8HR [facility] Rx# :[id number] pressure bags 54 99 9 Intake, IV Titration 126.127 67.219 Amount Amiodarone 360 mg In 17.267 Dextrose 5% in Water 200 ml @ 1 MG/MIN 34.533 mls/ hr IV .Q6H PRN Rx#: [id number] Clevidipine Butyrate 25 4.067 2.5 mg In Empty Bag 1 bag @ 1 MG/HR 2 mls/hr IV .Q24H [facility] Rx#:[id number] Dexmedetomidine/0.9% NaCl 2.978 2.628 (Pmx) 400 mcg In Empty Bag 1 bag @ Titrate IV . Q0M [facility] Rx#:[id number] Insulin Regular 100 unit 7.121 62.091 In Sodium Chloride 0.9% 100 ml @ Per Protocol IV .Q0M [facility] Rx#:[id number] propofoL 1,000 mg In 94.694 Empty Bag 1 bag @ Titrate IV .Q0M [facility] Rx#: [id number] Output: Chest Tube Drainage 225 583 40 Left Pleural 25 133 10 Mediastinal 200 450 30 Urine 965 690 30 Estimated Blood Loss 250 Other: Voiding Method Indwelling Catheter Indwelling Catheter ABP, PAP, CO, CI - Last Documented Arterial Blood Pressure 115/54 Pulmonary Artery Pressure 23/18 Cardiac Output 4.7 Cardiac Index 2.3 - Exam CONSTITUTIONAL: Sitting up to the bedside chair in the intensive care unit, appears comfortable, cooperative, no apparent acute distress. HEENT: Neck is supple, no JVD, no lymphadenopathy. Right IJ Cordis and Ashaway- Tiffanie catheter in place and functioning. RESPIRATORY: Lungs sounds essentially clear throughout, diminished to her bilateral bases. Respirations are symmetrical and nonlabored. Currently on 2 L nasal cannula with oxygen saturations 96%. Able to achieve 1000 mL on her incentive spirometry. Strong cough. CARDIOVASCULAR: Regular rhythm and rate. S1 and S2 present, negative for S3, or gallop. Systolic murmur present 2/6. Sternum is stable. Palpable peripheral pulses bilaterally. No calf pain or tenderness noted. Heart hugger in place with patient demonstrating appropriate use. Knee-high BRYON hose and sequential compression devices in place to her bilateral lower extremities. GASTROINTESTINAL: Abdomen soft, nontender, nondistended. Hypoactive bowel sounds present 4 quadrants. Tolerating clear liquid diet. Denies passing flatus. No guarding or rigidity. GENITOURINARY: Oliver present draining clear, yellow urine. Urine output 415 mL in the last 8 hours. INTEGUMENTARY: Skin is warm and dry with no evidence of clubbing or cyanosis. Midline sternal incision clean dry and well approximated, covered with dry intact dressing. Left lower extremity EVH sites well approximated without redness or drainage. NEUROLOGIC: Cranial nerves II through XII intact. No focal deficits. MUSKULOSKELETAL: Able to move all extremities, strength equal bilaterally, generalized weakness. PSYCHIATRIC: Alert and oriented to person place and time, appropriate affect, intact judgment and insight. INVASIVE LINES AND TUBES: Mediastinal and left pleural chest tubes remain in place to low continuous wall suction -20 cm H2O. No air leak is present. Draining thin serosanguineous drainage. Left pleural chest tube drained 85 mL in the last 8 hours and 160 mL since surgery. Mediastinal chest tube drained 250 mL in the last 8 hours and 650 mL since surgery. Right internal jugular Ashaway/Cordis, right radial arterial line present. Last CO 4.7, CI 2.3, PA 26/21, SVR 1229 and CVP 8 mmHg. - Allied health notes Allied health notes reviewed: nursing - Labs CBC & Chem 7: 08/10/24 04:12 08/10/24 04:12 Labs: Abnormal Lab Results - Last 24 Hours (Table) 08/08/24 08/09/24 08/09/24 Range/Units 05:44 08:51 10:23 WBC (3.8-10.6) k/uL RBC (3.80-5.40) m/uL Hgb (11.4-16.0) gm/dL Hct (34.0-46.0) % RDW (11.5-15.5) % Plt Count (150-450) k/uL Neutrophils # (1.3-7.7) k/uL Lymphocytes # (1.0-4.8) k/uL PT (10.0-12.5) sec INR (<1.2) APTT (22.0-30.0) sec ABG pH (7.35-7.45) ABG pO2 194 H 204 H (83-108) mmHg ABG Total CO2 (19-24) mmol/L ABG O2 Saturation 99.3 H 99.4 H (94-97) % ABG Hematocrit 27 L 26 L (34.0-46.0) % ABG Ionized Calcium (4.5-5.3) mg/dL ABG Glucose 111 H 130 H (75-99) mg/dL Hemoglobin 8.8 L 8.4 L (11.4-16.0) gm/dL Chloride (98-107) mmol/L Glucose (74-99) mg/dL POC Glucose (mg/dL) (70-110) mg/dL Calcium (8.4-10.2) mg/dL Ionized Calcium Shila (4.5-5.3) mg/dL Magnesium (1.6-2.3) mg/dL Total Bilirubin (0.2-1.3) mg/dL AST (14-36) U/L Total Protein (6.3-8.2) g/dL Albumin (3.5-5.0) g/dL Arterial Blood Glucose 111 H 130 H (75-99) mg/dL Crossmatch See Detail 08/09/24 08/09/24 08/09/24 Range/Units 11:04 11:37 12:06 WBC (3.8-10.6) k/uL RBC (3.80-5.40) m/uL Hgb (11.4-16.0) gm/dL Hct (34.0-46.0) % RDW (11.5-15.5) % Plt Count (150-450) k/uL Neutrophils # (1.3-7.7) k/uL Lymphocytes # (1.0-4.8) k/uL PT (10.0-12.5) sec INR (<1.2) APTT (22.0-30.0) sec ABG pH (7.35-7.45) ABG pO2 191 H 178 H 132 H (83-108) mmHg ABG Total CO2 (19-24) mmol/L ABG O2 Saturation 99.4 H 99.4 H 99.0 H (94-97) % ABG Hematocrit 25 L 23 L 24 L (34.0-46.0) % ABG Ionized Calcium 4.3 L 4.3 L 4.3 L (4.5-5.3) mg/dL ABG Glucose 132 H 130 H 126 H (75-99) mg/dL Hemoglobin 8.1 L 7.6 L 7.8 L (11.4-16.0) gm/dL Chloride (98-107) mmol/L Glucose (74-99) mg/dL POC Glucose (mg/dL) (70-110) mg/dL Calcium (8.4-10.2) mg/dL Ionized Calcium Shila (4.5-5.3) mg/dL Magnesium (1.6-2.3) mg/dL Total Bilirubin (0.2-1.3) mg/dL AST (14-36) U/L Total Protein (6.3-8.2) g/dL Albumin (3.5-5.0) g/dL Arterial Blood Glucose 132 H 130 H 126 H (75-99) mg/dL Crossmatch 08/09/24 08/09/24 08/09/24 Range/Units 13:15 13:17 13:17 WBC (3.8-10.6) k/uL RBC 2.55 L (3.80-5.40) m/uL Hgb 7.9 L D (11.4-16.0) gm/dL Hct 23.4 L (34.0-46.0) % RDW (11.5-15.5) % Plt Count 74 L (150-450) k/uL Neutrophils # (1.3-7.7) k/uL Lymphocytes # 0.6 L (1.0-4.8) k/uL PT 15.1 H (10.0-12.5) sec INR 1.5 H (<1.2) APTT 30.6 H (22.0-30.0) sec ABG pH (7.35-7.45) ABG pO2 (83-108) mmHg ABG Total CO2 (19-24) mmol/L ABG O2 Saturation (94-97) % ABG Hematocrit (34.0-46.0) % ABG Ionized Calcium (4.5-5.3) mg/dL ABG Glucose (75-99) mg/dL Hemoglobin (11.4-16.0) gm/dL Chloride (98-107) mmol/L Glucose (74-99) mg/dL POC Glucose (mg/dL) 127 H (70-110) mg/dL Calcium (8.4-10.2) mg/dL Ionized Calcium Shila (4.5-5.3) mg/dL Magnesium (1.6-2.3) mg/dL Total Bilirubin (0.2-1.3) mg/dL AST (14-36) U/L Total Protein (6.3-8.2) g/dL Albumin (3.5-5.0) g/dL Arterial Blood Glucose (75-99) mg/dL Crossmatch 08/09/24 08/09/24 08/09/24 Range/Units 13:17 13:26 14:13 WBC (3.8-10.6) k/uL RBC (3.80-5.40) m/uL Hgb (11.4-16.0) gm/dL Hct (34.0-46.0) % RDW (11.5-15.5) % Plt Count (150-450) k/uL Neutrophils # (1.3-7.7) k/uL Lymphocytes # (1.0-4.8) k/uL PT (10.0-12.5) sec INR (<1.2) APTT (22.0-30.0) sec ABG pH 7.33 L (7.35-7.45) ABG pO2 >420 H (83-108) mmHg ABG Total CO2 25 H (19-24) mmol/L ABG O2 Saturation 100.5 H (94-97) % ABG Hematocrit (34.0-46.0) % ABG Ionized Calcium (4.5-5.3) mg/dL ABG Glucose (75-99) mg/dL Hemoglobin (11.4-16.0) gm/dL Chloride 110 H (98-107) mmol/L Glucose 114 H (74-99) mg/dL POC Glucose (mg/dL) 137 H (70-110) mg/dL Calcium 7.6 L (8.4-10.2) mg/dL Ionized Calcium Shila 4.4 L (4.5-5.3) mg/dL Magnesium 1.3 L (1.6-2.3) mg/dL Total Bilirubin 2.6 H (0.2-1.3) mg/dL AST 37 H (14-36) U/L Total Protein 5.2 L (6.3-8.2) g/dL Albumin 3.0 L (3.5-5.0) g/dL Arterial Blood Glucose (75-99) mg/dL Crossmatch 08/09/24 08/09/24 08/09/24 Range/Units 15:16 16:30 16:30 WBC (3.8-10.6) k/uL RBC 2.61 L (3.80-5.40) m/uL Hgb 8.0 L (11.4-16.0) gm/dL Hct 23.6 L (34.0-46.0) % RDW 15.8 H (11.5-15.5) % Plt Count 90 L (150-450) k/uL Neutrophils # (1.3-7.7) k/uL Lymphocytes # 0.8 L (1.0-4.8) k/uL PT (10.0-12.5) sec INR (<1.2) APTT (22.0-30.0) sec ABG pH (7.35-7.45) ABG pO2 (83-108) mmHg ABG Total CO2 (19-24) mmol/L ABG O2 Saturation (94-97) % ABG Hematocrit (34.0-46.0) % ABG Ionized Calcium (4.5-5.3) mg/dL ABG Glucose (75-99) mg/dL Hemoglobin (11.4-16.0) gm/dL Chloride (98-107) mmol/L Glucose (74-99) mg/dL POC Glucose (mg/dL) 158 H 170 H (70-110) mg/dL Calcium (8.4-10.2) mg/dL Ionized Calcium Shila (4.5-5.3) mg/dL Magnesium (1.6-2.3) mg/dL Total Bilirubin (0.2-1.3) mg/dL AST (14-36) U/L Total Protein (6.3-8.2) g/dL Albumin (3.5-5.0) g/dL Arterial Blood Glucose (75-99) mg/dL Crossmatch 08/09/24 08/09/24 08/09/24 Range/Units 17:25 18:23 18:46 WBC (3.8-10.6) k/uL RBC (3.80-5.40) m/uL Hgb (11.4-16.0) gm/dL Hct (34.0-46.0) % RDW (11.5-15.5) % Plt Count (150-450) k/uL Neutrophils # (1.3-7.7) k/uL Lymphocytes # (1.0-4.8) k/uL PT (10.0-12.5) sec INR (<1.2) APTT (22.0-30.0) sec ABG pH (7.35-7.45) ABG pO2 137 H (83-108) mmHg ABG Total CO2 (19-24) mmol/L ABG O2 Saturation 99.7 H (94-97) % ABG Hematocrit (34.0-46.0) % ABG Ionized Calcium (4.5-5.3) mg/dL ABG Glucose (75-99) mg/dL Hemoglobin (11.4-16.0) gm/dL Chloride (98-107) mmol/L Glucose (74-99) mg/dL POC Glucose (mg/dL) 186 H 176 H (70-110) mg/dL Calcium (8.4-10.2) mg/dL Ionized Calcium Shila (4.5-5.3) mg/dL Magnesium (1.6-2.3) mg/dL Total Bilirubin (0.2-1.3) mg/dL AST (14-36) U/L Total Protein (6.3-8.2) g/dL Albumin (3.5-5.0) g/dL Arterial Blood Glucose (75-99) mg/dL Crossmatch 08/09/24 08/09/24 08/09/24 Range/Units 19:15 19:30 20:05 WBC (3.8-10.6) k/uL RBC 2.54 L (3.80-5.40) m/uL Hgb 7.7 L (11.4-16.0) gm/dL Hct 23.0 L (34.0-46.0) % RDW 16.0 H (11.5-15.5) % Plt Count 77 L (150-450) k/uL Neutrophils # (1.3-7.7) k/uL Lymphocytes # 0.5 L (1.0-4.8) k/uL PT (10.0-12.5) sec INR (<1.2) APTT (22.0-30.0) sec ABG pH (7.35-7.45) ABG pO2 (83-108) mmHg ABG Total CO2 (19-24) mmol/L ABG O2 Saturation (94-97) % ABG Hematocrit (34.0-46.0) % ABG Ionized Calcium (4.5-5.3) mg/dL ABG Glucose (75-99) mg/dL Hemoglobin (11.4-16.0) gm/dL Chloride (98-107) mmol/L Glucose (74-99) mg/dL POC Glucose (mg/dL) 160 H 149 H (70-110) mg/dL Calcium (8.4-10.2) mg/dL Ionized Calcium Shila (4.5-5.3) mg/dL Magnesium (1.6-2.3) mg/dL Total Bilirubin (0.2-1.3) mg/dL AST (14-36) U/L Total Protein (6.3-8.2) g/dL Albumin (3.5-5.0) g/dL Arterial Blood Glucose (75-99) mg/dL Crossmatch 08/09/24 08/09/24 08/09/24 Range/Units 21:28 22:33 23:16 WBC (3.8-10.6) k/uL RBC (3.80-5.40) m/uL Hgb (11.4-16.0) gm/dL Hct (34.0-46.0) % RDW (11.5-15.5) % Plt Count (150-450) k/uL Neutrophils # (1.3-7.7) k/uL Lymphocytes # (1.0-4.8) k/uL PT (10.0-12.5) sec INR (<1.2) APTT (22.0-30.0) sec ABG pH (7.35-7.45) ABG pO2 (83-108) mmHg ABG Total CO2 (19-24) mmol/L ABG O2 Saturation (94-97) % ABG Hematocrit (34.0-46.0) % ABG Ionized Calcium (4.5-5.3) mg/dL ABG Glucose (75-99) mg/dL Hemoglobin (11.4-16.0) gm/dL Chloride (98-107) mmol/L Glucose (74-99) mg/dL POC Glucose (mg/dL) 140 H 132 H 133 H (70-110) mg/dL Calcium (8.4-10.2) mg/dL Ionized Calcium Shila (4.5-5.3) mg/dL Magnesium (1.6-2.3) mg/dL Total Bilirubin (0.2-1.3) mg/dL AST (14-36) U/L Total Protein (6.3-8.2) g/dL Albumin (3.5-5.0) g/dL Arterial Blood Glucose (75-99) mg/dL Crossmatch 08/10/24 08/10/24 08/10/24 Range/Units 00:25 01:09 02:09 WBC (3.8-10.6) k/uL RBC (3.80-5.40) m/uL Hgb (11.4-16.0) gm/dL Hct (34.0-46.0) % RDW (11.5-15.5) % Plt Count (150-450) k/uL Neutrophils # (1.3-7.7) k/uL Lymphocytes # (1.0-4.8) k/uL PT (10.0-12.5) sec INR (<1.2) APTT (22.0-30.0) sec ABG pH (7.35-7.45) ABG pO2 (83-108) mmHg ABG Total CO2 (19-24) mmol/L ABG O2 Saturation (94-97) % ABG Hematocrit (34.0-46.0) % ABG Ionized Calcium (4.5-5.3) mg/dL ABG Glucose (75-99) mg/dL Hemoglobin (11.4-16.0) gm/dL Chloride (98-107) mmol/L Glucose (74-99) mg/dL POC Glucose (mg/dL) 131 H 128 H 129 H (70-110) mg/dL Calcium (8.4-10.2) mg/dL Ionized Calcium Shila (4.5-5.3) mg/dL Magnesium (1.6-2.3) mg/dL Total Bilirubin (0.2-1.3) mg/dL AST (14-36) U/L Total Protein (6.3-8.2) g/dL Albumin (3.5-5.0) g/dL Arterial Blood Glucose (75-99) mg/dL Crossmatch 08/10/24 08/10/24 08/10/24 Range/Units 03:17 04:12 04:12 WBC 11.0 H (3.8-10.6) k/uL RBC 2.74 L (3.80-5.40) m/uL Hgb 8.5 L (11.4-16.0) gm/dL Hct 24.9 L (34.0-46.0) % RDW 16.3 H (11.5-15.5) % Plt Count 125 L D (150-450) k/uL Neutrophils # 9.2 H (1.3-7.7) k/uL Lymphocytes # 0.9 L (1.0-4.8) k/uL PT (10.0-12.5) sec INR (<1.2) APTT (22.0-30.0) sec ABG pH (7.35-7.45) ABG pO2 (83-108) mmHg ABG Total CO2 (19-24) mmol/L ABG O2 Saturation (94-97) % ABG Hematocrit (34.0-46.0) % ABG Ionized Calcium (4.5-5.3) mg/dL ABG Glucose (75-99) mg/dL Hemoglobin (11.4-16.0) gm/dL Chloride 108 H (98-107) mmol/L Glucose 109 H (74-99) mg/dL POC Glucose (mg/dL) 126 H (70-110) mg/dL Calcium 7.9 L (8.4-10.2) mg/dL Ionized Calcium Shila (4.5-5.3) mg/dL Magnesium (1.6-2.3) mg/dL Total Bilirubin 2.6 H (0.2-1.3) mg/dL AST 46 H (14-36) U/L Total Protein 5.4 L (6.3-8.2) g/dL Albumin 3.3 L (3.5-5.0) g/dL Arterial Blood Glucose (75-99) mg/dL Crossmatch 08/10/24 08/10/24 08/10/24 Range/Units 04:16 05:12 06:20 WBC (3.8-10.6) k/uL RBC (3.80-5.40) m/uL Hgb (11.4-16.0) gm/dL Hct (34.0-46.0) % RDW (11.5-15.5) % Plt Count (150-450) k/uL Neutrophils # (1.3-7.7) k/uL Lymphocytes # (1.0-4.8) k/uL PT (10.0-12.5) sec INR (<1.2) APTT (22.0-30.0) sec ABG pH (7.35-7.45) ABG pO2 (83-108) mmHg ABG Total CO2 (19-24) mmol/L ABG O2 Saturation (94-97) % ABG Hematocrit (34.0-46.0) % ABG Ionized Calcium (4.5-5.3) mg/dL ABG Glucose (75-99) mg/dL Hemoglobin (11.4-16.0) gm/dL Chloride (98-107) mmol/L Glucose (74-99) mg/dL POC Glucose (mg/dL) 125 H 123 H 127 H (70-110) mg/dL Calcium (8.4-10.2) mg/dL Ionized Calcium Shila (4.5-5.3) mg/dL Magnesium (1.6-2.3) mg/dL Total Bilirubin (0.2-1.3) mg/dL AST (14-36) U/L Total Protein (6.3-8.2) g/dL Albumin (3.5-5.0) g/dL Arterial Blood Glucose (75-99) mg/dL Crossmatch 08/10/24 Range/Units 07:03 WBC (3.8-10.6) k/uL RBC (3.80-5.40) m/uL Hgb (11.4-16.0) gm/dL Hct (34.0-46.0) % RDW (11.5-15.5) % Plt Count (150-450) k/uL Neutrophils # (1.3-7.7) k/uL Lymphocytes # (1.0-4.8) k/uL PT (10.0-12.5) sec INR (<1.2) APTT (22.0-30.0) sec ABG pH (7.35-7.45) ABG pO2 (83-108) mmHg ABG Total CO2 (19-24) mmol/L ABG O2 Saturation (94-97) % ABG Hematocrit (34.0-46.0) % ABG Ionized Calcium (4.5-5.3) mg/dL ABG Glucose (75-99) mg/dL Hemoglobin (11.4-16.0) gm/dL Chloride (98-107) mmol/L Glucose (74-99) mg/dL POC Glucose (mg/dL) 130 H (70-110) mg/dL Calcium (8.4-10.2) mg/dL Ionized Calcium Shila (4.5-5.3) mg/dL Magnesium (1.6-2.3) mg/dL Total Bilirubin (0.2-1.3) mg/dL AST (14-36) U/L Total Protein (6.3-8.2) g/dL Albumin (3.5-5.0) g/dL Arterial Blood Glucose (75-99) mg/dL Crossmatch - Imaging and Cardiology Chest x-ray: report reviewed, image reviewed Assessment and Plan Assessment: Coronary artery disease status post recent stent, status post three-vessel off- pump coronary artery bypass grafting surgery Chest pain secondary to above Preserved left ventricular systolic function, EF 55-60%, mild mitral valve regurgitation, tricuspid valve regurgitation Anemia Thrombocytopenia Left ICA carotid stenosis greater than 70% and right ICA carotid stenosis less than 50% on carotid duplex study Mild splenomegaly, intermediate 1 cm splenic lesion on preoperative CT scan of the chest History of hypertension Diet-controlled diabetes, hemoglobin A1c 5.8% Bipolar disorder, history of suicidal ideation Previous tobacco cessation with recent cessation from vaping, FEV1 85% of predicted value Marijuana use History of EtOH abuse Chronic transaminitis, AST 53, ALT 45 Postoperative acute blood loss anemia, expected given her preoperative anemia and thrombocytopenia and hemodilution Plan: Continue to maximize medical therapy with aspirin, statin, Plavix and beta- lopez. Increase metoprolol tartrate to 25 mg p.o. twice daily with hold parameters. Discontinue nitroglycerin drip. Discontinue amiodarone drip when current bag has infused. Wean O2 as tolerated. Encourage incentive spirometry use 10 times every hour while awake. Bronchodilators per pulmonology. Increase activity, ambulate as tolerated. PT/OT/cardiac rehab consulted. Will monitor daily labs and chest x-rays. Electrolyte replacement per protocol. GI/DVT prophylaxis. Pain control per current medication regimen, will add toradol. Insulin management per internal medicine. Patient is diabetic, preoperative hemoglobin A1c 5.8%. Patient should remain on continuous IV insulin for 48 hours then may transition to subcutaneous per protocol. Remove right IJ Ashaway-Tiffanie catheter keep right IJ cordis in place to continuous CVP monitoring. Continue chest tubes for another 24 hours. Record strict output. Continue Oliver catheter for another 24 hours, continue to monitor strict accurate intake and output. Daily weights. More recommendations to follow based on patient's clinical course. Time with Patient: Greater than 30
[2024-08-10 09:27] LABS: Glucose,Whole Blood 139 mg/dL (70-110)
[2024-08-10] MEDS: ACETAMINOPHEN TAB 500 MG TAB PO PRN (09:36)
[2024-08-10] MEDS: PANTOPRAZOLE 40 MG/10 ML VIAL IVP SCH (09:36)
[2024-08-10 11:03] LABS: Glucose,Whole Blood 127 mg/dL (70-110)
[2024-08-10] MEDS: ONDANSETRON 4 MG/2 ML VIAL IVP PRN (11:04)
[2024-08-10] MEDS: KETOROLAC 15 MG/ML 1 ML VIAL IVP SCH (11:51)
[2024-08-10 12:19] LABS: Glucose,Whole Blood 112 mg/dL (70-110)
[2024-08-10 13:05] LABS: Glucose,Whole Blood 117 mg/dL (70-110)
[2024-08-10 14:01] LABS: Glucose,Whole Blood 142 mg/dL (70-110)
--- NOTE | 2024-08-10 14:06 | P.PN ---
Subjective Progress Note Date: 08/10/24 Principal diagnosis: POD #1 Off-pump coronary artery bypass grafting x 3 with sequential left internal mammary artery to diagonal coronary artery and left anterior descending coronary artery, saphenous vein graft to acute marginal branch of the right coronary artery, Patient is a 49-year-old female with past medical history significant for coronary artery disease with previous PCI/stenting, hypertension, hyperlipidemia, diet-controlled diabetes, previous tobacco dependence, chronic marijuana use. Not currently following with a PCP. Patient was recently hospitalized 07/29/2024 with unstable angina. The following day, underwent heart catheterization on 07/30/2024, multivessel coronary artery disease was noted. There was a stent placed to the ramus intermedius at this time. Inability, to stent the left circumflex artery. Transthoracic echocardiogram estimates left ventricular systolic function 55 to 60%, as well as, mild mitral and tricuspid regurgitation. Patient was discharged home on August. Returned to the emergency department the following day with severe substernal chest pain that occurred while watching TV. Chest pain radiated to left arm. Lasted approximately 10 minutes. Associated symptoms including shortness of breath, nausea, diaphoresis. Her did drive her to the emergency room. Patient brought back to the [facility] on 08/03/2024 multivessel coronary artery disease again noted including 40 to 50% left main stenosis, 20 to 30% LAD stenosis, patent stent to the ramus, and 80% dominant left circumflex stenosis. A cardiothoracic surgical consult was initiated. We are being asked to see this patient in pulmonary consultation in preparation for preoperative CABG. Chest CT done this admission did not show any acute pulmonary processes. Patient does have a smoking history approximately 1 pack/day smoker for 20 years. Quit smoking cigarettes 3 years ago and started vaping. Also smokes marijuana daily.. No diagnosed COPD, asthma, or other pre-existing pulmonary conditions. A bedside spirometry was performed, her FEV1 was reportedly 85% of predicted. Patient is currently sitting up in the bedside recliner, on room air, in no acute respiratory distress. SpO2 is 96%. No current chest pain. Most recent CBC from this morning: WBC count 5, hemoglobin 9.9, hematocrit 29.2, platelets 101,000. Most recent CMP from 08/03/2024: Sodium 137, potassium 4.4, chloride 110, serum bicarb 25, BUN 11, creatinine 0.79, glucose 139. LFTs mildly elevated. Serial troponins 0.045, 0.05, and 0.054 respectively. NT proBNP 291. STS score is being calculated. 08/06/2024, patient is being seen for a follow-up. The patient is doing well. No specific complaints. The the patient remains on IV heparin. She is free of any chest pain for now. She did have an episode of chest pain yesterday.. No cardiac arrhythmias. No hemodynamic instability. Respiratory status is also stable. The patient has no specific complaints. Blood work from today shows a white cell count of 5.6, hemoglobin 9.8 which is stable compared to yesterday and a platelet count of 117, stable. BUN is 13 with a creatinine of 0.8 and sodium levels at 136. LFTs were noted, the numbers are improving. UA is negative. On 08/07/2024, the patient is doing well. No specific complaints. Overnight, she had some vague chest pain. Based on that, the patient was taken off IV heparin and patient was started on Aggrastat. She is free of chest pain for now. Hemodynamically stable. Remains on metoprolol 50 mg twice daily. Remains in aspirin. Labs from today are still pending. Room air oxygen. No other new complaints. On 08/08/2024, the patient is free of any chest pain. The patient encountered some epistaxis while being on Aggrastat. This will be continued till midnight today and subsequent this will be stopped as the patient is getting ready for bypass surgery tomorrow. The white cell count is 4.5 with a hemoglobin 9.5 and a platelet count of 100. Sodium is at 137, potassium is at 3.9, BUN is 18 with a creatinine of 0.7. LFTs are also stable. No other significant events overnight. The patient is clinically and hemodynamically stable. The patient is seen today August 09, 2024 in follow-up in the intensive care unit. Status post off-pump coronary artery bypass grafting x 3 with sequential PERSAUD to the diagonal and LAD, saphenous vein graft to the obtuse marginal branch of the RCA. Left atrial appendage clipping. Postoperative day #0. She is intubated on the mechanical ventilator and assist-control mode at a rate of 14, tidal volume 400, FiO2 100% and a PEEP of 5. Arterial blood gases revealed a PaO2 of 420, pCO2 45 and a pH of 7.33. She is currently on Cleviprex at 3 mg/hr. Insulin drip at 2 units an hour. Nitroglycerin drip at 5 mcg/min. Propofol at 35 mcg/kg/min. Normal saline at 50 mL/h. She has a mediastinal and left pleural chest tubes in place. Cardiac output 5.7. Cardiac index 2.8. PA pressures 41/11. CVP of 17. Chest x-ray shows some mild pulmonary edema. White count 4.4. Hemoglobin 7.9. Platelets 74,000. INR 1.5. Sodium 137. Potassium 4.1. Bicarb 23. BUN 11. Creatinine 0.71. Glucose 127. Ionized calcium 4.4. Magnesium 1.3. AST 37. ALT 22. She has been initiated on bro nchodilators. Anticoagulated with Arixtra. Patient evaluated today on 08/10/2024, patient was extubated yesterday at 6:53 PM she is now on 2 L nasal cannula with O2 sats of 96%. Achieving about 1000 cc with incentive spirometry patient has the typical postoperative pain, mostly at the site of tube insertion. Patient is in sinus rhythm, had some frequent PVCs last night, and she was placed on amiodarone drip at 0.5 mg/min. No further ectopy has been reported. Her mediastinal and left pleural chest tubes were noted, remain on continuous suction no air leak is noted, draining still serosanguineous drainage. Mediastinal chest tube noted her urine output is 450 in the last 8 hours, cardiac output is 4.7 cardiac index 2.3 PA pressures 26/21 CVP of 8. X-ray showed mostly postoperative changes. WBC count is 11 hemoglobin 8.5, basic metabolic profile is normal and renal profile is normal Objective - Vital Signs Vital signs: Vital Signs Temp 99.5 F 08/10/24 04:00 Pulse 76 08/10/24 13:24 Resp 20 08/10/24 11:00 BP 111/58 08/10/24 04:15 Pulse Ox 94 L 08/10/24 11:00 FiO2 45 08/09/24 18:16 Intake & Output 08/09/24 08/10/24 08/10/24 18:59 06:59 18:59 Intake Total 2742.134 3883.219 720.618 Output Total 1440 1273 540 Balance 373.127 -146.781 180.618 Weight 108.3 kg 108.3 kg Intake: IV 1687 1059 441 0.9 @ 50 300 550 300 ACETAMINOPHEN IV (For NPO 200 ) 1,000 mg In Empty Bag 1 bag @ 400 mls/hr IVPB Q6HR [facility] Rx#:[id number] Albumin Human 5% 250 ml 500 250 In Empty Bag 1 bag @ 250 mls/hr IVPB Q1HR PRN Rx#: [id number] CO/CI 180 110 40 Calcium Gluconate in NaCl 100 2 gm In Saline 1 100ml. bag @ 100 mls/hr IVPB ONCE PRN Rx#:[id number] Magnesium Sulfate-D5w Pmx 300 1 gm In Dextrose/Water 1 100ml.bag @ 100 mls/hr IVPB Q1H [facility] Rx#: [id number] ceFAZolin 2 gm In Sodium 50 50 Chloride 0.9% 50 ml @ 100 mls/hr IVPB Q8HR [facility] Rx# :[id number] pressure bags 54 99 51 Intake, IV Titration 126.127 67.219 279.618 Amount Amiodarone 360 mg In 17.267 Dextrose 5% in Water 200 ml @ 1 MG/MIN 34.533 mls/ hr IV .Q6H [facility]N Rx#: [id number] Amiodarone 450 mg In 250 Dextrose 5% in Water 250 ml @ 0.5 MG/MIN 16.667 mls/hr IV .Q15H [facility] Rx#: [id number] Clevidipine Butyrate 25 4.067 2.5 mg In Empty Bag 1 bag @ 1 MG/HR 2 mls/hr IV .Q24H [facility] Rx#:[id number] Dexmedetomidine/0.9% NaCl 2.978 2.628 (Pmx) 400 mcg In Empty Bag 1 bag @ Titrate IV . Q0M [facility] Rx#:[id number] Insulin Regular 100 unit 7.121 62.091 29.618 In Sodium Chloride 0.9% 100 ml @ Per Protocol IV .Q0M [facility] Rx#:[id number] propofoL 1,000 mg In 94.694 Empty Bag 1 bag @ Titrate IV .Q0M [facility] Rx#: [id number] Output: Chest Tube Drainage 225 583 340 Left Pleural 25 133 130 Mediastinal 200 450 210 Urine 965 690 200 Estimated Blood Loss 250 Other: Voiding Method Indwelling Catheter Indwelling Catheter Indwelling Catheter ABP, PAP, CO, CI - Last Documented Arterial Blood Pressure 90/42 Pulmonary Artery Pressure 24/17 Cardiac Output 4.7 Cardiac Index 2.3 - Exam GENERAL EXAM: 49-year-old not in any distress, on 2 L nasal cannula HEAD: Normocephalic. EYES: Within normal. NOSE: Clear with pink turbinates. THROAT: Clear. Normal mucous membranes NECK: Right IJ Menahga-Tiffanie catheter in place. No masses, no JVD. CHEST: Sternal dressing dry and intact. Heart hugger in place. Mediastinal and left pleural chest tubes in place. LUNGS: Equal air entry with no crackles, wheeze, rhonchi or dullness. CVS: S1 and S2 normal with no audible murmur, regular rhythm. ABDOMEN: No hepatosplenomegaly, no guarding or rigidity. SKIN: No rashes CENTRAL NERVOUS SYSTEM: Alert and oriented x 3 no gross focal deficit EXTREMITIES: Bilateral lower extremity Marcos wraps in place. SCDs in place. - Labs CBC & Chem 7: 08/10/24 04:12 08/10/24 04:12 Labs: Abnormal Lab Results - Last 24 Hours (Table) 08/08/24 08/09/24 08/09/24 Range/Units 05:44 13:17 14:13 WBC (3.8-10.6) k/uL RBC (3.80-5.40) m/uL Hgb (11.4-16.0) gm/dL Hct (34.0-46.0) % RDW (11.5-15.5) % Plt Count 74 L (150-450) k/uL Neutrophils # (1.3-7.7) k/uL Lymphocytes # 0.6 L (1.0-4.8) k/uL ABG pO2 (83-108) mmHg ABG O2 Saturation (94-97) % Chloride (98-107) mmol/L Glucose (74-99) mg/dL POC Glucose (mg/dL) 137 H (70-110) mg/dL Calcium (8.4-10.2) mg/dL Total Bilirubin (0.2-1.3) mg/dL AST (14-36) U/L Total Protein (6.3-8.2) g/dL Albumin (3.5-5.0) g/dL Crossmatch See Detail 08/09/24 08/09/24 08/09/24 Range/Units 15:16 16:30 16:30 WBC (3.8-10.6) k/uL RBC 2.61 L (3.80-5.40) m/uL Hgb 8.0 L (11.4-16.0) gm/dL Hct 23.6 L (34.0-46.0) % RDW 15.8 H (11.5-15.5) % Plt Count 90 L (150-450) k/uL Neutrophils # (1.3-7.7) k/uL Lymphocytes # 0.8 L (1.0-4.8) k/uL ABG pO2 (83-108) mmHg ABG O2 Saturation (94-97) % Chloride (98-107) mmol/L Glucose (74-99) mg/dL POC Glucose (mg/dL) 158 H 170 H (70-110) mg/dL Calcium (8.4-10.2) mg/dL Total Bilirubin (0.2-1.3) mg/dL AST (14-36) U/L Total Protein (6.3-8.2) g/dL Albumin (3.5-5.0) g/dL Crossmatch 08/09/24 08/09/24 08/09/24 Range/Units 17:25 18:23 18:46 WBC (3.8-10.6) k/uL RBC (3.80-5.40) m/uL Hgb (11.4-16.0) gm/dL Hct (34.0-46.0) % RDW (11.5-15.5) % Plt Count (150-450) k/uL Neutrophils # (1.3-7.7) k/uL Lymphocytes # (1.0-4.8) k/uL ABG pO2 137 H (83-108) mmHg ABG O2 Saturation 99.7 H (94-97) % Chloride (98-107) mmol/L Glucose (74-99) mg/dL POC Glucose (mg/dL) 186 H 176 H (70-110) mg/dL Calcium (8.4-10.2) mg/dL Total Bilirubin (0.2-1.3) mg/dL AST (14-36) U/L Total Protein (6.3-8.2) g/dL Albumin (3.5-5.0) g/dL Crossmatch 08/09/24 08/09/24 08/09/24 Range/Units 19:15 19:30 20:05 WBC (3.8-10.6) k/uL RBC 2.54 L (3.80-5.40) m/uL Hgb 7.7 L (11.4-16.0) gm/dL Hct 23.0 L (34.0-46.0) % RDW 16.0 H (11.5-15.5) % Plt Count 77 L (150-450) k/uL Neutrophils # (1.3-7.7) k/uL Lymphocytes # 0.5 L (1.0-4.8) k/uL ABG pO2 (83-108) mmHg ABG O2 Saturation (94-97) % Chloride (98-107) mmol/L Glucose (74-99) mg/dL POC Glucose (mg/dL) 160 H 149 H (70-110) mg/dL Calcium (8.4-10.2) mg/dL Total Bilirubin (0.2-1.3) mg/dL AST (14-36) U/L Total Protein (6.3-8.2) g/dL Albumin (3.5-5.0) g/dL Crossmatch 08/09/24 08/09/24 08/09/24 Range/Units 21:28 22:33 23:16 WBC (3.8-10.6) k/uL RBC (3.80-5.40) m/uL Hgb (11.4-16.0) gm/dL Hct (34.0-46.0) % RDW (11.5-15.5) % Plt Count (150-450) k/uL Neutrophils # (1.3-7.7) k/uL Lymphocytes # (1.0-4.8) k/uL ABG pO2 (83-108) mmHg ABG O2 Saturation (94-97) % Chloride (98-107) mmol/L Glucose (74-99) mg/dL POC Glucose (mg/dL) 140 H 132 H 133 H (70-110) mg/dL Calcium (8.4-10.2) mg/dL Total Bilirubin (0.2-1.3) mg/dL AST (14-36) U/L Total Protein (6.3-8.2) g/dL Albumin (3.5-5.0) g/dL Crossmatch 08/10/24 08/10/24 08/10/24 Range/Units 00:25 01:09 02:09 WBC (3.8-10.6) k/uL RBC (3.80-5.40) m/uL Hgb (11.4-16.0) gm/dL Hct (34.0-46.0) % RDW (11.5-15.5) % Plt Count (150-450) k/uL Neutrophils # (1.3-7.7) k/uL Lymphocytes # (1.0-4.8) k/uL ABG pO2 (83-108) mmHg ABG O2 Saturation (94-97) % Chloride (98-107) mmol/L Glucose (74-99) mg/dL POC Glucose (mg/dL) 131 H 128 H 129 H (70-110) mg/dL Calcium (8.4-10.2) mg/dL Total Bilirubin (0.2-1.3) mg/dL AST (14-36) U/L Total Protein (6.3-8.2) g/dL Albumin (3.5-5.0) g/dL Crossmatch 08/10/24 08/10/24 08/10/24 Range/Units 03:17 04:12 04:12 WBC 11.0 H (3.8-10.6) k/uL RBC 2.74 L (3.80-5.40) m/uL Hgb 8.5 L (11.4-16.0) gm/dL Hct 24.9 L (34.0-46.0) % RDW 16.3 H (11.5-15.5) % Plt Count 125 L D (150-450) k/uL Neutrophils # 9.2 H (1.3-7.7) k/uL Lymphocytes # 0.9 L (1.0-4.8) k/uL ABG pO2 (83-108) mmHg ABG O2 Saturation (94-97) % Chloride 108 H (98-107) mmol/L Glucose 109 H (74-99) mg/dL POC Glucose (mg/dL) 126 H (70-110) mg/dL Calcium 7.9 L (8.4-10.2) mg/dL Total Bilirubin 2.6 H (0.2-1.3) mg/dL AST 46 H (14-36) U/L Total Protein 5.4 L (6.3-8.2) g/dL Albumin 3.3 L (3.5-5.0) g/dL Crossmatch 08/10/24 08/10/24 08/10/24 Range/Units 04:16 05:12 06:20 WBC (3.8-10.6) k/uL RBC (3.80-5.40) m/uL Hgb (11.4-16.0) gm/dL Hct (34.0-46.0) % RDW (11.5-15.5) % Plt Count (150-450) k/uL Neutrophils # (1.3-7.7) k/uL Lymphocytes # (1.0-4.8) k/uL ABG pO2 (83-108) mmHg ABG O2 Saturation (94-97) % Chloride (98-107) mmol/L Glucose (74-99) mg/dL POC Glucose (mg/dL) 125 H 123 H 127 H (70-110) mg/dL Calcium (8.4-10.2) mg/dL Total Bilirubin (0.2-1.3) mg/dL AST (14-36) U/L Total Protein (6.3-8.2) g/dL Albumin (3.5-5.0) g/dL Crossmatch 08/10/24 08/10/24 08/10/24 Range/Units 07:03 08:29 09:25 WBC (3.8-10.6) k/uL RBC (3.80-5.40) m/uL Hgb (11.4-16.0) gm/dL Hct (34.0-46.0) % RDW (11.5-15.5) % Plt Count (150-450) k/uL Neutrophils # (1.3-7.7) k/uL Lymphocytes # (1.0-4.8) k/uL ABG pO2 (83-108) mmHg ABG O2 Saturation (94-97) % Chloride (98-107) mmol/L Glucose (74-99) mg/dL POC Glucose (mg/dL) 130 H 143 H 139 H (70-110) mg/dL Calcium (8.4-10.2) mg/dL Total Bilirubin (0.2-1.3) mg/dL AST (14-36) U/L Total Protein (6.3-8.2) g/dL Albumin (3.5-5.0) g/dL Crossmatch 08/10/24 08/10/24 08/10/24 Range/Units 11:02 12:18 13:04 WBC (3.8-10.6) k/uL RBC (3.80-5.40) m/uL Hgb (11.4-16.0) gm/dL Hct (34.0-46.0) % RDW (11.5-15.5) % Plt Count (150-450) k/uL Neutrophils # (1.3-7.7) k/uL Lymphocytes # (1.0-4.8) k/uL ABG pO2 (83-108) mmHg ABG O2 Saturation (94-97) % Chloride (98-107) mmol/L Glucose (74-99) mg/dL POC Glucose (mg/dL) 127 H 112 H 117 H (70-110) mg/dL Calcium (8.4-10.2) mg/dL Total Bilirubin (0.2-1.3) mg/dL AST (14-36) U/L Total Protein (6.3-8.2) g/dL Albumin (3.5-5.0) g/dL Crossmatch Assessment and Plan Assessment: Impression: Coronary artery disease status post three-vessel off-pump coronary artery bypass grafting surgery, postoperative day #1 Thrombocytopenia History of hypertension Diet-controlled diabetes, hemoglobin A1c 5.8% Bipolar disorder, history of suicidal ideation Previous tobacco user, with recent cessation from vaping, FEV1 85% of predicted value Marijuana use History of EtOH abuse Recommendation: Continue maximal medical therapy using Plavix beta-blockers aspirin and statins Continue oxygen and titrate accordingly Continue incentive spirometry Continue GI DVT prophylaxis Continue ambulation and physical therapy Pain control management Remove unnecessary lines or catheters early Daily x-rays of the chest Encourage deep cough and deep breathing and incentive spirometry Will continue to follow Time with Patient: Less than 30
[2024-08-10 16:13] LABS: Glucose,Whole Blood 151 mg/dL (70-110)
[2024-08-10 17:04] LABS: Glucose,Whole Blood 141 mg/dL (70-110)
[2024-08-10 19:04] LABS: Glucose,Whole Blood 160 mg/dL (70-110)
[2024-08-10] MEDS: METOPROLOL TARTRATE 25 MG TAB PO SCH (20:06)
[2024-08-10] MEDS: SENNOSIDES-DOCUSATE SODIUM 1 EACH TAB PO SCH (20:07)
[2024-08-10 20:57] LABS: Glucose,Whole Blood 126 mg/dL (70-110)
[2024-08-10 20:57] LABS: Glucose,Whole Blood 137 mg/dL (70-110)
[2024-08-10 22:00] LABS: Glucose,Whole Blood 115 mg/dL (70-110)
[2024-08-10 22:57] LABS: Glucose,Whole Blood 107 mg/dL (70-110)
[2024-08-11 00:07] LABS: Glucose,Whole Blood 126 mg/dL (70-110)
[2024-08-11 00:58] LABS: Glucose,Whole Blood 125 mg/dL (70-110)
[2024-08-11 02:01] LABS: Glucose,Whole Blood 115 mg/dL (70-110)
[2024-08-11 03:04] LABS: Glucose,Whole Blood 109 mg/dL (70-110)
[2024-08-11 04:03] LABS: Glucose,Whole Blood 127 mg/dL (70-110)
[2024-08-11 04:38] LABS: Anisocytosis Slight; Basophils % (A) 0 %; Eosinophils # (A) 0.1 k/uL (0-0.7); Eosinophils % (A) 1 %; HCT 21.4 % (34.0-46.0); HGB 7.2 gm/dL (11.4-16.0); Lymphocytes # (A) 1.1 k/uL (1.0-4.8); Lymphocytes % (A) 14 %; MCH 30.6 pg (25.0-35.0); MCHC 33.8 g/dL (31.0-37.0); MCV 90.6 fL (80.0-100.0); Mean Platelet Volume 11.5; Monocytes # (A) 0.7 k/uL (0-1.0); Monocytes % (A) 10 %; Neutrophils # (A) 5.5 k/uL (1.3-7.7); Neutrophils % (A) 72 %; Poikilocytosis Slight; RBC 2.36 m/uL (3.80-5.40); RDW 16.9 % (11.5-15.5); WBC 7.7 k/uL (3.8-10.6)
[2024-08-11 05:18] LABS: Glucose,Whole Blood 137 mg/dL (70-110)
[2024-08-11 05:22] LABS: Ionized Calcium 4.5 mg/dL (4.5-5.3)
[2024-08-11 05:37] LABS: ALT 22 U/L (4-34); AST 49 U/L (14-36); African American GFR (CKD) >90 (>60 ml/min/1.73 sqM); Alkaline Phosphatase 61 U/L (38-126); Anion Gap 7 mmol/L; Blood Urea Nitrogen 13 mg/dL (7-17); Calcium 7.9 mg/dL (8.4-10.2); Carbon Dioxide 21 mmol/L (22-30); Chloride 103 mmol/L (98-107); Glucose 114 mg/dL (74-99); Non-African American GFR(CKD) >90 (>60 ml/min/1.73 sqM); Sodium 131 mmol/L (137-145); Total Bilirubin 2.8 mg/dL (0.2-1.3); Total Protein 5.1 g/dL (6.3-8.2)
[2024-08-11 05:59] LABS: Polychromasia Present
[2024-08-11 06:00] LABS: Platelet Count 75 k/uL (150-450); Rouleaux Present
[2024-08-11 06:08] LABS: Glucose,Whole Blood 133 mg/dL (70-110)
[2024-08-11] MEDS: PANTOPRAZOLE 40 MG TABLET PO SCH (06:59)
[2024-08-11 07:11] LABS: Glucose,Whole Blood 130 mg/dL (70-110)
--- NOTE | 2024-08-11 07:34 | P.PN ---
Subjective Progress Note Date: 08/11/24 Principal diagnosis: CAD CAD this is a 49-year-old female patient with a past medical history significant for coronary artery disease as well as hypertension and dyslipidemia and multiple comorbid conditions who underwent recently PCI of the ramus intermedius and left circumflex and she also was found to have disease involving the left main coronary artery. She was admitted to the hospital with chest discomfort and abnormal troponin. Subsequently she was seen by the cardiothoracic surgical team and she was evaluated for CABG where she underwent a earlier today CABG x 3 with PERSAUD to LAD and diagonal and SVG to the acute marginal branch of the RCA. August 09, 2022 The patient was seen and evaluated earlier today. She continues to be intubated and the plan is to extubate the raters later on today. She seems to be hemodynamically stable which she seems to be maintaining normal sinus mechanism. She is on dual antiplatelet therapy with aspirin and Plavix along with intermediate intensity statin I would consider increasing the dose of statin down the line. The physical examination is remarkable for distant heart sounds with regular rate and rhythm and diminished breathing sounds bilaterally August 10, 2024 The patient was seen and evaluated this morning which she was extubated last night around 7 PM. Overall she seems to be stable. She was experiencing yesterday PVCs and runs of nonsustained ventricular tachycardia and for that reason she was started on low-dose amiodarone IV. Hemoglobin is stable. Electrolytes are stable. Urine output is good as well. On examination she has regular rhythm with a systolic murmur at the right upper sternal border with clear breathing sounds bilaterally and no edema was noted in the lower extremities. August 11, 2024 The patient was seen and evaluated this morning. Overall she seems to be stable. The pressure appears to be soft. Urine output has been within normal limits. She received albumin yesterday. Otherwise she has been maintaining normal sinus mechanism. No more PVCs or nonsustained ventricular tachycardia. Blood work seems to be unremarkable except for low platelets. The physical examination is remarkable for soft blood pressure with regular rate and rhythm and systolic murmur at right upper sternal border with diminished breathing sounds bilaterally and mild bilateral lower extremities edema Assessment CAD status post CABG as described above Prior percutaneous revascularization Cardiac arrhythmia with PVCs and runs of NSVT Plan Continue current medical regimen Continue monitor the kidney function and electrolytes and hemoglobin Continue monitoring urine output Consider starting the patient on oral diuretics once the blood pressure is better and not as soft as now Follow-up with the patient Objective - Vital Signs Vital signs: Vital Signs Temp 98.8 F 08/11/24 04:00 Pulse 93 08/11/24 06:30 Resp 15 08/11/24 06:30 BP 108/62 08/11/24 05:30 Pulse Ox 95 08/11/24 06:30 FiO2 45 08/09/24 18:16 Intake & Output 08/10/24 08/11/24 08/11/24 18:59 06:59 18:59 Intake Total 2970.734 617.196 Output Total 975 910 Balance 1995.734 -292.804 Weight 108.3 kg 109.9 kg Intake: IV 1171 552 0.9 @ 50 500 480 Albumin Human 5% 250 ml 500 In Empty Bag 1 bag @ 250 mls/hr IVPB Q1HR PRN Rx#: [id number] CO/CI 40 ceFAZolin 2 gm In Sodium 50 Chloride 0.9% 50 ml @ 100 mls/hr IVPB Q8HR [facility] Rx# :[id number] pressure bags 81 72 Intake, IV Titration 299.734 65.196 Amount Amiodarone 450 mg In 250 Dextrose 5% in Water 250 ml @ 0.5 MG/MIN 16.667 mls/hr IV .Q15H PRN Rx#: [id number] Insulin Regular 100 unit 49.734 65.196 In Sodium Chloride 0.9% 100 ml @ Per Protocol IV .Q0M [facility] Rx#:[id number] Oral 1500 Output: Chest Tube Drainage 510 300 Left Pleural 160 140 Mediastinal 350 160 Urine 465 610 Other: Voiding Method Indwelling Catheter Indwelling Catheter ABP, PAP, CO, CI - Last Documented Arterial Blood Pressure 94/47 Pulmonary Artery Pressure Cardiac Output 4.7 Cardiac Index 2.3 - Labs CBC & Chem 7: 08/11/24 04:02 08/11/24 04:02 Labs: Abnormal Lab Results - Last 24 Hours (Table) 08/10/24 08/10/24 08/10/24 Range/Units 08:29 09:25 11:02 RBC (3.80-5.40) m/uL Hgb (11.4-16.0) gm/dL Hct (34.0-46.0) % RDW (11.5-15.5) % Plt Count (150-450) k/uL Sodium (137-145) mmol/L Carbon Dioxide (22-30) mmol/L Glucose (74-99) mg/dL POC Glucose (mg/dL) 143 H 139 H 127 H (70-110) mg/dL Calcium (8.4-10.2) mg/dL Total Bilirubin (0.2-1.3) mg/dL AST (14-36) U/L Total Protein (6.3-8.2) g/dL Albumin (3.5-5.0) g/dL 08/10/24 08/10/24 08/10/24 Range/Units 12:18 13:04 14:00 RBC (3.80-5.40) m/uL Hgb (11.4-16.0) gm/dL Hct (34.0-46.0) % RDW (11.5-15.5) % Plt Count (150-450) k/uL Sodium (137-145) mmol/L Carbon Dioxide (22-30) mmol/L Glucose (74-99) mg/dL POC Glucose (mg/dL) 112 H 117 H 142 H (70-110) mg/dL Calcium (8.4-10.2) mg/dL Total Bilirubin (0.2-1.3) mg/dL AST (14-36) U/L Total Protein (6.3-8.2) g/dL Albumin (3.5-5.0) g/dL 08/10/24 08/10/24 08/10/24 Range/Units 16:12 17:03 19:02 RBC (3.80-5.40) m/uL Hgb (11.4-16.0) gm/dL Hct (34.0-46.0) % RDW (11.5-15.5) % Plt Count (150-450) k/uL Sodium (137-145) mmol/L Carbon Dioxide (22-30) mmol/L Glucose (74-99) mg/dL POC Glucose (mg/dL) 151 H 141 H 160 H (70-110) mg/dL Calcium (8.4-10.2) mg/dL Total Bilirubin (0.2-1.3) mg/dL AST (14-36) U/L Total Protein (6.3-8.2) g/dL Albumin (3.5-5.0) g/dL 08/10/24 08/10/24 08/10/24 Range/Units 19:55 20:56 21:58 RBC (3.80-5.40) m/uL Hgb (11.4-16.0) gm/dL Hct (34.0-46.0) % RDW (11.5-15.5) % Plt Count (150-450) k/uL Sodium (137-145) mmol/L Carbon Dioxide (22-30) mmol/L Glucose (74-99) mg/dL POC Glucose (mg/dL) 137 H 126 H 115 H (70-110) mg/dL Calcium (8.4-10.2) mg/dL Total Bilirubin (0.2-1.3) mg/dL AST (14-36) U/L Total Protein (6.3-8.2) g/dL Albumin (3.5-5.0) g/dL 08/11/24 08/11/24 08/11/24 Range/Units 00:06 00:57 01:59 RBC (3.80-5.40) m/uL Hgb (11.4-16.0) gm/dL Hct (34.0-46.0) % RDW (11.5-15.5) % Plt Count (150-450) k/uL Sodium (137-145) mmol/L Carbon Dioxide (22-30) mmol/L Glucose (74-99) mg/dL POC Glucose (mg/dL) 126 H 125 H 115 H (70-110) mg/dL Calcium (8.4-10.2) mg/dL Total Bilirubin (0.2-1.3) mg/dL AST (14-36) U/L Total Protein (6.3-8.2) g/dL Albumin (3.5-5.0) g/dL 08/11/24 08/11/24 08/11/24 Range/Units 04:02 04:02 04:02 RBC 2.36 L (3.80-5.40) m/uL Hgb 7.2 L (11.4-16.0) gm/dL Hct 21.4 L (34.0-46.0) % RDW 16.9 H (11.5-15.5) % Plt Count 75 L (150-450) k/uL Sodium 131 L (137-145) mmol/L Carbon Dioxide 21 L (22-30) mmol/L Glucose 114 H (74-99) mg/dL POC Glucose (mg/dL) 127 H (70-110) mg/dL Calcium 7.9 L (8.4-10.2) mg/dL Total Bilirubin 2.8 H (0.2-1.3) mg/dL AST 49 H (14-36) U/L Total Protein 5.1 L (6.3-8.2) g/dL Albumin 3.0 L (3.5-5.0) g/dL 08/11/24 08/11/24 08/11/24 Range/Units 05:17 06:07 07:05 RBC (3.80-5.40) m/uL Hgb (11.4-16.0) gm/dL Hct (34.0-46.0) % RDW (11.5-15.5) % Plt Count (150-450) k/uL Sodium (137-145) mmol/L Carbon Dioxide (22-30) mmol/L Glucose (74-99) mg/dL POC Glucose (mg/dL) 137 H 133 H 130 H (70-110) mg/dL Calcium (8.4-10.2) mg/dL Total Bilirubin (0.2-1.3) mg/dL AST (14-36) U/L Total Protein (6.3-8.2) g/dL Albumin (3.5-5.0) g/dL
[2024-08-11 08:03] LABS: Glucose,Whole Blood 152 mg/dL (70-110)
[2024-08-11] MEDS: CALCIUM GLUCONATE IN NACL 1 GM in SALINE 1 100ML.BAG IVPB ONE (08:11)
--- NOTE | 2024-08-11 08:11 | XR ---
EXAMINATION TYPE: XR chest 1V portable DATE OF EXAM: 08/11/2024 COMPARISON: 08/10/2024 HISTORY: Post Operative Cardiac Surgery TECHNIQUE: Single frontal view of the chest is obtained. FINDINGS: Left-sided chest tube is in place without evidence for a pneumothorax. Left atrial clip is noted. Med iastinal drain is also noted. Sternotomy wires are in place. Mild pulmonary venous congestion and ple ural parenchymal scattered opacities seen. IMPRESSION: 1. Postoperative cardiac surgery changes.
[2024-08-11 09:13] LABS: Glucose,Whole Blood 140 mg/dL (70-110)
[2024-08-11] MEDS: INSULIN REGULAR 100 UNIT in SODIUM CHLORIDE 0.9% 100 ML IV SCH (09:22)
[2024-08-11] MEDS: ASPIRIN 81 MG PO SCH (09:29)
[2024-08-11 10:08] LABS: Glucose,Whole Blood 171 mg/dL (70-110)
--- NOTE | 2024-08-11 10:24 | P.PN ---
Subjective Progress Note Date: 08/10/24 This is a pleasant 49 years old female who was recently discharged from the hospital on 08/01 after she had cardiac cath. Patient presents because of chest pain thought secondary to unstable angina with negative troponins. She underwent left heart catheterization 07/30/2024 showing CAD i with 20-30% distal left main stenosis, LAD 20-30% stenosis, ramus 90% stenosis, ostial circumflex 99% stenosis, status post PCI of the ramus, status post PTCA circumflex. She was started on aspirin and Brilinta. After discharge patient could not fill up her prescription because it was a long weekend holiday for . She presents this time because of chest pain that lasted about 15 minutes. Patient currently denies chest pain no dyspnea. No coughing No other /GI symptoms. Earlier she had nausea which is resolved now. No abdominal pain vomiting diarrhea. No headache dizziness weakness or numbness She smokes cigarettes and states she quit smoking today without specification. Nicotine patch offered but she declines. She drinks alcohol occasionally. No illicit drugs. Her marine designer is Dr. Ogden that she intends to follow-up in 1 week. She states she has no PCP but she intends to find 1. Hemodynamically stable Labs showing WBC 3.7 and platelet count 9.7. Liver enzymes mildly elevated. Troponin are elevated 0.4 and 0.5 and 0.5 D-dimer negative at 0.55 proBNP is 291 Amylase lipase negative Chest x-ray is negative for acute process EKG showing sinus bradycardia at [address]-T changes Upper extremity duplex of the forearm was negative. 08/04/2024 Patient is seen and evaluated in follow-up today currently undergoing stress test with cardiology following. Patient continues to report chest pain and chest discomfort with shortness of breath with exertion. Patient being followed by cardiothoracic surgery undergoing workup for possible CABG. CT chest is ordered and pending as well. Patient is afebrile with no worsening shortness of breath or palpitations noted. Patient denies nausea or vomiting and was currently n.p.o. for the stress test this morning. 08/05/2024 Patient is seen and evaluated in follow-up this morning currently undergoing preop workup with CT surgery and tentatively scheduled for off-pump intervention on 08/09/[address] Ortiz. Patient reports currently her chest pain is under control although has not been up and moving much other to the bathroom and back. Patient encouraged to increase activity with frequent walks and also continue with the use of the incentive spirometer and further testing per CT surgery. Patient reports she did have an episode of loose stool this morning and have ordered as needed Imodium. Patient is afebrile with no reports of chest pain, shortness of breath, or palpitations at this time. Will follow-up on serial labs and continue to monitor closely until surgery. Patient to continue on 3 S. per protocol 08/06/2024 Patient is seen in follow-up today awaiting off-pump intervention on 08/09/[address] Ortiz. Patient reports occasionally having s ome anxiety about the overall surgery although continues to wish to proceed with surgical intervention to improve quality of life. Patient reports she continues to have intermittent episodes of chest pain and heaviness. Patient denies any further diarrhea reported it was 1 isolated incident and tolerating diet. Patient remains on room air with no reports of shortness of breath. at the bedside with questions and concerns that were answered 08/07 Patient was seen and examined today. No issues overnight. Patient had just been overnight, patient was taken off IV heparin and started on Aggrastat. Chest pain currently resolved. Vital stable. No labs this morning. 08/08/2024--patient was seen and examined today. No further episodes of chest pain. Patient had some epistaxis earlier on Aggrastat, now resolved. Pulmonary following. Cardiac surgery following, plan for CABG tomorrow. Vital stable. Normal WBCs, hemoglobin 9.5, platelets 100. INR 1.2. Normal BUN/creatinine. 08/09/2024 Patient is currently in preop undergoing off-pump intervention with cardiothoracic surgery. Will await surgical report. 08/10/2024 Patient is seen in follow-up status post CABG with PERSAUD to the LAD and diagonal and SVG to the acute marginal branch of the RCA. Patient was successfully extubated currently maintained on 2 L of oxygen denies any extreme shortness of breath although does get winded with movement. Heart hugger is noted and patient continues with chest tubes along with swans catheter and indwelling Oliver catheter. Patient currently sitting up in the chair and will be starting physical therapy today. Patient had not eaten and feels slightly nauseated, continue with supportive care of antinausea medications and also will continue insulin drip for now and transition off the drip once she is tolerating more diet. Review of systems: Constitutional: No reports of fatigue, fever, or chills reports occasionally feeling anxious Cardiovascular: reports of continued chest pain, denies palpitations Respiratory: No reports of shortness of breath or cough other than with exertion GI: No reports of nausea, vomiting, reports no further diarrhea noted, : No reports of dysuria or retention Neurovascular: No reports of weakness or numbness All medications have been reviewed Physical exam: GENERAL: The patient is alert and oriented x3, not in any acute distress. Well developed, well nourished. Mildly anxious at times. Morbidly obese HEENT: Pupils are round and equally reacting to light. EOMI. No scleral icterus. No conjunctival pallor. Normocephalic, atraumatic. No pharyngeal erythema. No thyromegaly. CARDIOVASCULAR: S1 and S2 present. No murmurs, rubs, or gallops. PULMONARY: Chest is clear to auscultation, no wheezing , no crackles. ABDOMEN: Soft, nontender, nondistended, normoactive bowel sounds. No palpable organomegaly. MUSCULOSKELETAL: No joint swelling or deformity. EXTREMITIES: No cyanosis, clubbing, or pedal edema. Ecchymosis of the right forearm on the medial side. NEUROLOGICAL: Gross neurological examination did not reveal any focal deficits. SKIN: No rashes. no petechiae. Assessment: Chest pain with mildly elevated troponin and review of recent stent placement to ramus branch and PTCA circumflex. Related to her unstable angina. Currently awaiting a stress test and undergoing further workup for possible triple-vessel disease with CT surgery. Underwent vascularization on 08/09/2024, postop day 1 Coronary artery disease status post CABG on 08/09/2024 Nonadherence to therapy because it was holiday and she could not follow-up her prescription from the pharmacy Mild transaminitis Mild bicytopenia with leukopenia and thrombocytopenia Hypertension Diabetes Morbid obesity with a BMI of 41.1 Nicotine dependence with vaping Osteoarthritis History of kidney stones GI prophylaxis DVT prophylaxis Full code Plan: Continue with cardiology and CT surgery following. Patient continues with chest tubes along with Piru's catheter indwelling Oliver catheter and is maintained on insulin drip. Patient was reporting some nausea although reports she has not eaten and feels that is the reason why she was nauseated. Will add Zofran as needed and encourage small frequent meals and build up as tolerated. Will continue insulin drip for today and monitor sugars closely with transitioning off the insulin once tolerating more of diet Provide resources for outpatient follow-up to establish with a primary care provider. Patient reports she was a patient of Dr. Marin previously although he relocated and difficult due to social issues and barriers with only having 1 pile driver operator barge mounted in the home, patient is unable to make it to her appointments. Continue to encourage complete smoking and vaping cessation We will continue to follow along with CT surgery during hospitalization. The impression and plan of care has been dictated by Jessica Rendon, Nurse Practitioner as directed. Dr. Heriberto MD I have performed a history and examination and MDM of this patient, discussed the same with the dictator, and agree with the dictator's assessment and plan as written ,documented as a scribe. Based on total visit time, I have performed more than 50% of the visit. Currently undergoing stress test with cardiology following. Objective - Vital Signs Vital signs: Vital Signs Temp 99.1 F 08/10/24 12:00 Pulse 75 08/10/24 14:00 Resp 13 08/10/24 14:00 BP 97/51 08/10/24 14:00 Pulse Ox 95 08/10/24 14:00 FiO2 45 08/09/24 18:16 Intake & Output 08/09/24 08/10/24 08/10/24 18:59 06:59 18:59 Intake Total 8232.917 0534.219 1024.420 Output Total 1440 1273 580 Balance 373.127 -146.781 444.420 Weight 108.3 kg 108.3 kg Intake: IV 1687 1059 737 0.9 @ 50 300 550 340 ACETAMINOPHEN IV (For NPO 200 ) 1,000 mg In Empty Bag 1 bag @ 400 mls/hr IVPB Q6HR GABO Rx#:[id number] Albumin Human 5% 250 ml 500 250 250 In Empty Bag 1 bag @ 250 mls/hr IVPB Q1HR PRN Rx#: [id number] CO/CI 180 110 40 Calcium Gluconate in NaCl 100 2 gm In Saline 1 100ml. bag @ 100 mls/hr IVPB ONCE PRN Rx#:[id number] Magnesium Sulfate-D5w Pmx 300 1 gm In Dextrose/Water 1 100ml.bag @ 100 mls/hr IVPB Q1H GABO Rx#: [id number] ceFAZolin 2 gm In Sodium 50 50 Chloride 0.9% 50 ml @ 100 mls/hr IVPB Q8HR GABO Rx# :[id number] pressure bags 54 99 57 Intake, IV Titration 126.127 67.219 287.420 Amount Amiodarone 360 mg In 17.267 Dextrose 5% in Water 200 ml @ 1 MG/MIN 34.533 mls/ hr IV .Q6H PRN Rx#: [id number] Amiodarone 450 mg In 250 Dextrose 5% in Water 250 ml @ 0.5 MG/MIN 16.667 mls/hr IV .Q15H PRN Rx#: [id number] Clevidipine Butyrate 25 4.067 2.5 mg In Empty Bag 1 bag @ 1 MG/HR 2 mls/hr IV .Q24H GABO Rx#:[id number] Dexmedetomidine/0.9% NaCl 2.978 2.628 (Pmx) 400 mcg In Empty Bag 1 bag @ Titrate IV . Q0M GABO Rx#:[id number] Insulin Regular 100 unit 7.121 62.091 37.420 In Sodium Chloride 0.9% 100 ml @ Per Protocol IV .Q0M GABO Rx#:[id number] propofoL 1,000 mg In 94.694 Empty Bag 1 bag @ Titrate IV .Q0M GAOB Rx#: [id number] Output: Chest Tube Drainage 225 583 340 Left Pleural 25 133 130 Mediastinal 200 450 210 Urine 965 690 240 Estimated Blood Loss 250 Other: Voiding Method Indwelling Catheter Indwelling Catheter Indwelling Catheter ABP, PAP, CO, CI - Last Documented Arterial Blood Pressure 83/34 Pulmonary Artery Pressure Cardiac Output 4.7 Cardiac Index 2.3 - Labs CBC & Chem 7: 08/11/24 04:02 08/11/24 04:02 Labs: Abnormal Lab Results - Last 24 Hours (Table) 08/08/24 08/09/24 08/09/24 Range/Units 05:44 16:30 16:30 WBC (3.8-10.6) k/uL RBC 2.61 L (3.80-5.40) m/uL Hgb 8.0 L (11.4-16.0) gm/dL Hct 23.6 L (34.0-46.0) % RDW 15.8 H (11.5-15.5) % Plt Count 90 L (150-450) k/uL Neutrophils # (1.3-7.7) k/uL Lymphocytes # 0.8 L (1.0-4.8) k/uL ABG pO2 (83-108) mmHg ABG O2 Saturation (94-97) % Chloride (98-107) mmol/L Glucose (74-99) mg/dL POC Glucose (mg/dL) 170 H (70-110) mg/dL Calcium (8.4-10.2) mg/dL Total Bilirubin (0.2-1.3) mg/dL AST (14-36) U/L Total Protein (6.3-8.2) g/dL Albumin (3.5-5.0) g/dL Crossmatch See Detail 08/09/24 08/09/24 08/09/24 Range/Units 17:25 18:23 18:46 WBC (3.8-10.6) k/uL RBC (3.80-5.40) m/uL Hgb (11.4-16.0) gm/dL Hct (34.0-46.0) % RDW (11.5-15.5) % Plt Count (150-450) k/uL Neutrophils # (1.3-7.7) k/uL Lymphocytes # (1.0-4.8) k/uL ABG pO2 137 H (83-108) mmHg ABG O2 Saturation 99.7 H (94-97) % Chloride (98-107) mmol/L Glucose (74-99) mg/dL POC Glucose (mg/dL) 186 H 176 H (70-110) mg/dL Calcium (8.4-10.2) mg/dL Total Bilirubin (0.2-1.3) mg/dL AST (14-36) U/L Total Protein (6.3-8.2) g/dL Albumin (3.5-5.0) g/dL Crossmatch 08/09/24 08/09/24 08/09/24 Range/Units 19:15 19:30 20:05 WBC (3.8-10.6) k/uL RBC 2.54 L (3.80-5.40) m/uL Hgb 7.7 L (11.4-16.0) gm/dL Hct 23.0 L (34.0-46.0) % RDW 16.0 H (11.5-15.5) % Plt Count 77 L (150-450) k/uL Neutrophils # (1.3-7.7) k/uL Lymphocytes # 0.5 L (1.0-4.8) k/uL ABG pO2 (83-108) mmHg ABG O2 Saturation (94-97) % Chloride (98-107) mmol/L Glucose (74-99) mg/dL POC Glucose (mg/dL) 160 H 149 H (70-110) mg/dL Calcium (8.4-10.2) mg/dL Total Bilirubin (0.2-1.3) mg/dL AST (14-36) U/L Total Protein (6.3-8.2) g/dL Albumin (3.5-5.0) g/dL Crossmatch 08/09/24 08/09/24 08/09/24 Range/Units 21:28 22:33 23:16 WBC (3.8-10.6) k/uL RBC (3.80-5.40) m/uL Hgb (11.4-16.0) gm/dL Hct (34.0-46.0) % RDW (11.5-15.5) % Plt Count (150-450) k/uL Neutrophils # (1.3-7.7) k/uL Lymphocytes # (1.0-4.8) k/uL ABG pO2 (83-108) mmHg ABG O2 Saturation (94-97) % Chloride (98-107) mmol/L Glucose (74-99) mg/dL POC Glucose (mg/dL) 140 H 132 H 133 H (70-110) mg/dL Calcium (8.4-10.2) mg/dL Total Bilirubin (0.2-1.3) mg/dL AST (14-36) U/L Total Protein (6.3-8.2) g/dL Albumin (3.5-5.0) g/dL Crossmatch 08/10/24 08/10/24 08/10/24 Range/Units 00:25 01:09 02:09 WBC (3.8-10.6) k/uL RBC (3.80-5.40) m/uL Hgb (11.4-16.0) gm/dL Hct (34.0-46.0) % RDW (11.5-15.5) % Plt Count (150-450) k/uL Neutrophils # (1.3-7.7) k/uL Lymphocytes # (1.0-4.8) k/uL ABG pO2 (83-108) mmHg ABG O2 Saturation (94-97) % Chloride (98-107) mmol/L Glucose (74-99) mg/dL POC Glucose (mg/dL) 131 H 128 H 129 H (70-110) mg/dL Calcium (8.4-10.2) mg/dL Total Bilirubin (0.2-1.3) mg/dL AST (14-36) U/L Total Protein (6.3-8.2) g/dL Albumin (3.5-5.0) g/dL Crossmatch 08/10/24 08/10/24 08/10/24 Range/Units 03:17 04:12 04:12 WBC 11.0 H (3.8-10.6) k/uL RBC 2.74 L (3.80-5.40) m/uL Hgb 8.5 L (11.4-16.0) gm/dL Hct 24.9 L (34.0-46.0) % RDW 16.3 H (11.5-15.5) % Plt Count 125 L D (150-450) k/uL Neutrophils # 9.2 H (1.3-7.7) k/uL Lymphocytes # 0.9 L (1.0-4.8) k/uL ABG pO2 (83-108) mmHg ABG O2 Saturation (94-97) % Chloride 108 H (98-107) mmol/L Glucose 109 H (74-99) mg/dL POC Glucose (mg/dL) 126 H (70-110) mg/dL Calcium 7.9 L (8.4-10.2) mg/dL Total Bilirubin 2.6 H (0.2-1.3) mg/dL AST 46 H (14-36) U/L Total Protein 5.4 L (6.3-8.2) g/dL Albumin 3.3 L (3.5-5.0) g/dL Crossmatch 08/10/24 08/10/24 08/10/24 Range/Units 04:16 05:12 06:20 WBC (3.8-10.6) k/uL RBC (3.80-5.40) m/uL Hgb (11.4-16.0) gm/dL Hct (34.0-46.0) % RDW (11.5-15.5) % Plt Count (150-450) k/uL Neutrophils # (1.3-7.7) k/uL Lymphocytes # (1.0-4.8) k/uL ABG pO2 (83-108) mmHg ABG O2 Saturation (94-97) % Chloride (98-107) mmol/L Glucose (74-99) mg/dL POC Glucose (mg/dL) 125 H 123 H 127 H (70-110) mg/dL Calcium (8.4-10.2) mg/dL Total Bilirubin (0.2-1.3) mg/dL AST (14-36) U/L Total Protein (6.3-8.2) g/dL Albumin (3.5-5.0) g/dL Crossmatch 08/10/24 08/10/24 08/10/24 Range/Units 07:03 08:29 09:25 WBC (3.8-10.6) k/uL RBC (3.80-5.40) m/uL Hgb (11.4-16.0) gm/dL Hct (34.0-46.0) % RDW (11.5-15.5) % Plt Count (150-450) k/uL Neutrophils # (1.3-7.7) k/uL Lymphocytes # (1.0-4.8) k/uL ABG pO2 (83-108) mmHg ABG O2 Saturation (94-97) % Chloride (98-107) mmol/L Glucose (74-99) mg/dL POC Glucose (mg/dL) 130 H 143 H 139 H (70-110) mg/dL Calcium (8.4-10.2) mg/dL Total Bilirubin (0.2-1.3) mg/dL AST (14-36) U/L Total Protein (6.3-8.2) g/dL Albumin (3.5-5.0) g/dL Crossmatch 08/10/24 08/10/24 08/10/24 Range/Units 11:02 12:18 13:04 WBC (3.8-10.6) k/uL RBC (3.80-5.40) m/uL Hgb (11.4-16.0) gm/dL Hct (34.0-46.0) % RDW (11.5-15.5) % Plt Count (150-450) k/uL Neutrophils # (1.3-7.7) k/uL Lymphocytes # (1.0-4.8) k/uL ABG pO2 (83-108) mmHg ABG O2 Saturation (94-97) % Chloride (98-107) mmol/L Glucose (74-99) mg/dL POC Glucose (mg/dL) 127 H 112 H 117 H (70-110) mg/dL Calcium (8.4-10.2) mg/dL Total Bilirubin (0.2-1.3) mg/dL AST (14-36) U/L Total Protein (6.3-8.2) g/dL Albumin (3.5-5.0) g/dL Crossmatch 08/10/24 Range/Units 14:00 WBC (3.8-10.6) k/uL RBC (3.80-5.40) m/uL Hgb (11.4-16.0) gm/dL Hct (34.0-46.0) % RDW (11.5-15.5) % Plt Count (150-450) k/uL Neutrophils # (1.3-7.7) k/uL Lymphocytes # (1.0-4.8) k/uL ABG pO2 (83-108) mmHg ABG O2 Saturation (94-97) % Chloride (98-107) mmol/L Glucose (74-99) mg/dL POC Glucose (mg/dL) 142 H (70-110) mg/dL Calcium (8.4-10.2) mg/dL Total Bilirubin (0.2-1.3) mg/dL AST (14-36) U/L Total Protein (6.3-8.2) g/dL Albumin (3.5-5.0) g/dL Crossmatch
[2024-08-11 12:03] LABS: Glucose,Whole Blood 116 mg/dL (70-110)
[2024-08-11 13:15] LABS: Glucose,Whole Blood 161 mg/dL (70-110)
[2024-08-11] MEDS ORDERED: DEXTROSE 50% SYRINGE 50 ML IVP PRN ×2 (13:21)
--- NOTE | 2024-08-11 13:23 | P.PN ---
Subjective Progress Note Date: 08/11/24 Principal diagnosis: Coronary artery disease status post recent stentto her ramus coronary artery, currently on Brilinta, elevated serial troponins on admission, troponin 0.045 with peak 0.054. Past medical history significant for hypertension, diet- controlled diabetes with a hemoglobin A1c of 5.8%, bipolar disorder, previous tobacco cessation with recent cessation from vaping, history of EtOH abuse, chronically elevated transaminase enzymes and marijuana use. POD #2 Off-pump coronary artery bypass grafting x 3 with sequential left internal mammary artery to diagonal coronary artery and left anterior descending coronary artery, saphenous vein graft to acute marginal branch of the right coronary artery, endovascular vein harvest of the greater saphenous vein from the left thigh, exclusion of the left atrial appendage with a 35 mm AtriCure clip. Intraoperative transesophageal echocardiogram performed by anesthesia. Postoperative acute blood loss anemia and thrombocytopenia, expected given the patient's preoperative anemia and thrombocytopenia and hemodilution. The patient was seen and examined today 08/11/24 at her bedside in the intensive care unit. She is currently sitting up to the bedside chair, is awake, alert, oriented x 3 and is in no acute apparent distress. She denies any complaints of shortness of breath, although continues to complain of some episodes of surgical type pain to her left chest tube insertion site with taking a deep breath. Terry rrently rates her pain 4 out of 10 on the pain scale and states that current pain medication is controlling her pain. Oxygen saturations are 95% on room air and she is achieving 1500 mL on her incentive spirometry with encouragement. Bedside telemetry is showing sinus tachycardia heart rate 101 bpm. She reports that she had just gotten back from a walk in the intensive care unit hallway and tolerated well. She remains hemodynamically stable and is currently on no inotropic or pressor support. Insulin drip remains infusing for control of her diabetes. Mediastinal and left pleural chest tube remain in place to low continuous wall suction -20 cm H2O. No air leak is present. Mediastinal chest tube draining thin serous drainage with 110 mL output in the last 8 hours and 400 mL output than last 24 hours. Left pleural chest tube draining thin serosanguineous drainage with 140 mL output in the last 8 hours and 240 mL output in the last 24 hours. Laboratory and chest x-ray results were reviewed. Objective - Vital Signs Vital signs: Vital Signs Temp 98.3 F 08/11/24 08:30 Pulse 90 08/11/24 10:00 Resp 16 08/11/24 10:00 BP 102/53 08/11/24 08:00 Pulse Ox 94 L 08/11/24 10:00 FiO2 45 08/09/24 18:16 Intake & Output 08/10/24 08/11/24 08/11/24 18:59 06:59 18:59 Intake Total 2970.734 617.196 780.424 Output Total 975 910 200 Balance 1995.734 -292.804 580.424 Weight 108.3 kg 109.9 kg Intake: IV 1171 552 268 0.9 @ 50 500 480 150 Albumin Human 5% 250 ml 500 In Empty Bag 1 bag @ 250 mls/hr IVPB Q1HR PRN Rx#: [id number] CO/CI 40 Calcium Gluconate in NaCl 100 1 gm In Saline 1 100ml. bag @ 100 mls/hr IVPB ONCE ONE Rx#:[id number] ceFAZolin 2 gm In Sodium 50 Chloride 0.9% 50 ml @ 100 mls/hr IVPB Q8HR [facility] Rx# :[id number] pressure bags 81 72 18 Intake, IV Titration 299.734 65.196 12.424 Amount Amiodarone 450 mg In 250 Dextrose 5% in Water 250 ml @ 0.5 MG/MIN 16.667 mls/hr IV .Q15H PRN Rx#: [id number] Insulin Regular 100 unit 49.734 65.196 8.636 In Sodium Chloride 0.9% 100 ml @ Per Protocol IV .Q0M [facility] Rx#:[id number] Insulin Regular 100 unit 3.788 In Sodium Chloride 0.9% 100 ml @ Per Protocol IV .Q0M [facility] Rx#:[id number] Oral 1500 500 Output: Chest Tube Drainage 510 300 60 Left Pleural 160 140 30 Mediastinal 350 160 30 Urine 465 610 140 Other: Voiding Method Indwelling Catheter Indwelling Catheter ABP, PAP, CO, CI - Last Documented Arterial Blood Pressure 97/52 Pulmonary Artery Pressure 24/17 Cardiac Output 4.7 Cardiac Index 2.3 - Exam CONSTITUTIONAL: Sitting up to the bedside chair in the intensive care unit, appears comfortable, cooperative, no apparent acute distress. HEENT: Neck is supple, no JVD, no lymphadenopathy. Right IJ Cordis in place and functioning. RESPIRATORY: Lungs sounds essentially clear throughout, diminished to her bilateral bases. Respirations are symmetrical and nonlabored. Currently on room air with oxygen saturations 95%. Able to achieve 1500 mL on her incentive spirometry. Strong cough. CARDIOVASCULAR: Regular rhythm and tachycardic rate. S1 and S2 present, negative for S3, or gallop. Systolic murmur present 2/6. Sternum is stable. Palpable peripheral pulses bilaterally. No calf pain or tenderness noted. Heart hugger in place with patient demonstrating appropriate use. Knee-high BRYON hose and sequential compression devices in place to her bilateral lower extremities. GASTROINTESTINAL: Abdomen soft, nontender, nondistended. Active bowel sounds present 4 quadrants. Tolerating diet. Passing flatus. No guarding or rigidity. GENITOURINARY: Oliver present draining clear, yellow urine. Urine output 335 mL in the last 8 hours. INTEGUMENTARY: Skin is warm and dry with no evidence of clubbing or cyanosis. Midline sternal incision clean dry and well approximated, covered with dry intact dressing. Left lower extremity EVH sites well approximated without redness or drainage. NEUROLOGIC: Cranial nerves II through XII intact. No focal deficits. MUSKULOSKELETAL: Able to move all extremities, strength equal bilaterally. PSYCHIATRIC: Alert and oriented to person place and time, appropriate affect, intact judgment and insight. INVASIVE LINES AND TUBES: Mediastinal and left pleural chest tube remain in place to low continuous wall suction -20 cm H2O. No air leak is present. Mediastinal chest tube draining thin serous drainage with 110 mL output in the last 8 hours and 400 mL output than last 24 hours. Left pleural chest tube draining thin serosanguineous drainage with 140 mL output in the last 8 hours and 240 mL output in the last 24 hours. Right internal jugular Cordis, left brachial arterial line present. CVP 7 mmHg. - Allied health notes Allied health notes reviewed: nursing - Labs CBC & Chem 7: 08/11/24 04:02 08/11/24 04:02 Labs: Abnormal Lab Results - Last 24 Hours (Table) 08/10/24 08/10/24 08/10/24 Range/Units 11:02 12:18 13:04 RBC (3.80-5.40) m/uL Hgb (11.4-16.0) gm/dL Hct (34.0-46.0) % RDW (11.5-15.5) % Plt Count (150-450) k/uL Sodium (137-145) mmol/L Carbon Dioxide (22-30) mmol/L Glucose (74-99) mg/dL POC Glucose (mg/dL) 127 H 112 H 117 H (70-110) mg/dL Calcium (8.4-10.2) mg/dL Total Bilirubin (0.2-1.3) mg/dL AST (14-36) U/L Total Protein (6.3-8.2) g/dL Albumin (3.5-5.0) g/dL 08/10/24 08/10/24 08/10/24 Range/Units 14:00 16:12 17:03 RBC (3.80-5.40) m/uL Hgb (11.4-16.0) gm/dL Hct (34.0-46.0) % RDW (11.5-15.5) % Plt Count (150-450) k/uL Sodium (137-145) mmol/L Carbon Dioxide (22-30) mmol/L Glucose (74-99) mg/dL POC Glucose (mg/dL) 142 H 151 H 141 H (70-110) mg/dL Calcium (8.4-10.2) mg/dL Total Bilirubin (0.2-1.3) mg/dL AST (14-36) U/L Total Protein (6.3-8.2) g/dL Albumin (3.5-5.0) g/dL 08/10/24 08/10/24 08/10/24 Range/Units 19:02 19:55 20:56 RBC (3.80-5.40) m/uL Hgb (11.4-16.0) gm/dL Hct (34.0-46.0) % RDW (11.5-15.5) % Plt Count (150-450) k/uL Sodium (137-145) mmol/L Carbon Dioxide (22-30) mmol/L Glucose (74-99) mg/dL POC Glucose (mg/dL) 160 H 137 H 126 H (70-110) mg/dL Calcium (8.4-10.2) mg/dL Total Bilirubin (0.2-1.3) mg/dL AST (14-36) U/L Total Protein (6.3-8.2) g/dL Albumin (3.5-5.0) g/dL 08/10/24 08/11/24 08/11/24 Range/Units 21:58 00:06 00:57 RBC (3.80-5.40) m/uL Hgb (11.4-16.0) gm/dL Hct (34.0-46.0) % RDW (11.5-15.5) % Plt Count (150-450) k/uL Sodium (137-145) mmol/L Carbon Dioxide (22-30) mmol/L Glucose (74-99) mg/dL POC Glucose (mg/dL) 115 H 126 H 125 H (70-110) mg/dL Calcium (8.4-10.2) mg/dL Total Bilirubin (0.2-1.3) mg/dL AST (14-36) U/L Total Protein (6.3-8.2) g/dL Albumin (3.5-5.0) g/dL 08/11/24 08/11/24 08/11/24 Range/Units 01:59 04:02 04:02 RBC 2.36 L (3.80-5.40) m/uL Hgb 7.2 L (11.4-16.0) gm/dL Hct 21.4 L (34.0-46.0) % RDW 16.9 H (11.5-15.5) % Plt Count 75 L (150-450) k/uL Sodium 131 L (137-145) mmol/L Carbon Dioxide 21 L (22-30) mmol/L Glucose 114 H (74-99) mg/dL POC Glucose (mg/dL) 115 H (70-110) mg/dL Calcium 7.9 L (8.4-10.2) mg/dL Total Bilirubin 2.8 H (0.2-1.3) mg/dL AST 49 H (14-36) U/L Total Protein 5.1 L (6.3-8.2) g/dL Albumin 3.0 L (3.5-5.0) g/dL 08/11/24 08/11/24 08/11/24 Range/Units 04:02 05:17 06:07 RBC (3.80-5.40) m/uL Hgb (11.4-16.0) gm/dL Hct (34.0-46.0) % RDW (11.5-15.5) % Plt Count (150-450) k/uL Sodium (137-145) mmol/L Carbon Dioxide (22-30) mmol/L Glucose (74-99) mg/dL POC Glucose (mg/dL) 127 H 137 H 133 H (70-110) mg/dL Calcium (8.4-10.2) mg/dL Total Bilirubin (0.2-1.3) mg/dL AST (14-36) U/L Total Protein (6.3-8.2) g/dL Albumin (3.5-5.0) g/dL 08/11/24 08/11/24 08/11/24 Range/Units 07:05 08:03 09:11 RBC (3.80-5.40) m/uL Hgb (11.4-16.0) gm/dL Hct (34.0-46.0) % RDW (11.5-15.5) % Plt Count (150-450) k/uL Sodium (137-145) mmol/L Carbon Dioxide (22-30) mmol/L Glucose (74-99) mg/dL POC Glucose (mg/dL) 130 H 152 H 140 H (70-110) mg/dL Calcium (8.4-10.2) mg/dL Total Bilirubin (0.2-1.3) mg/dL AST (14-36) U/L Total Protein (6.3-8.2) g/dL Albumin (3.5-5.0) g/dL 08/11/24 Range/Units 10:07 RBC (3.80-5.40) m/uL Hgb (11.4-16.0) gm/dL Hct (34.0-46.0) % RDW (11.5-15.5) % Plt Count (150-450) k/uL Sodium (137-145) mmol/L Carbon Dioxide (22-30) mmol/L Glucose (74-99) mg/dL POC Glucose (mg/dL) 171 H (70-110) mg/dL Calcium (8.4-10.2) mg/dL Total Bilirubin (0.2-1.3) mg/dL AST (14-36) U/L Total Protein (6.3-8.2) g/dL Albumin (3.5-5.0) g/dL - Imaging and Cardiology Chest x-ray: report reviewed, image reviewed Assessment and Plan Assessment: Coronary artery disease status post recent stent, status post three-vessel off- pump coronary artery bypass grafting surgery Chest pain secondary to above Preserved left ventricular systolic function, EF 55-60%, mild mitral valve regurgitation, tricuspid valve regurgitation Anemia Thrombocytopenia Left ICA carotid stenosis greater than 70% and right ICA carotid stenosis less than 50% on carotid duplex study Mild splenomegaly, intermediate 1 cm splenic lesion on preoperative CT scan of the chest History of hypertension Diet-controlled diabetes, hemoglobin A1c 5.8% Bipolar disorder, history of suicidal ideation Previous tobacco cessation with recent cessation from vaping, FEV1 85% of predicted value Marijuana use History of EtOH abuse Chronic transaminitis, AST 49, Postoperative acute blood loss anemia, expected given her preoperative anemia and thrombocytopenia and hemodilution Plan: Continue to maximize medical therapy with low-dose aspirin, statin, Plavix and beta-lopez. Increase metoprolol tartrate as tolerated with hold parameters. Encourage incentive spirometry use 10 times every hour while awake. Bronchodilators per pulmonology. Increase activity, ambulate as tolerated. PT/OT/cardiac rehab following. Will monitor daily labs and chest x-rays. Electrolyte replacement per protocol. GI/DVT prophylaxis. Pain control per current medication regimen. Toradol discontinue platelet count 75 today. Insulin management per internal medicine. Patient is diabetic, preoperative hemoglobin A1c 5.8%. Patient should remain on continuous IV insulin for 48 hours then may transition to subcutaneous per protocol. Remove right IJ right IJ cordis. Continue chest tubes for another 24 hours. Record strict output. Remove Oliver catheter, continue to monitor strict accurate intake and output. May bladder scan every 6 hours and as needed postvoid residual, if greater than 300 mL of PVR may straight cath. Daily weights. Remove left brachial arterial line. Transfer orders have been placed to third floor cardiac stepdown unit for further monitoring and rehabilitation. Discharge planning is in place, anticipate discharge home with home health care in the next 48 hours. More recommendations to follow based on patient's clinical course. Time with Patient: Greater than 30
--- NOTE | 2024-08-11 14:31 | P.PN ---
Subjective Progress Note Date: 08/11/24 Principal diagnosis: POD #2 off-pump coronary artery bypass grafting x 3 with sequential left internal mammary artery to diagonal coronary artery and left anterior descending coronary artery, saphenous vein graft to acute marginal branch of the right coronary artery, Patient is a 49-year-old female with past medical history significant for coronary artery disease with previous PCI/stenting, hypertension, hyperlipidemia, diet-controlled diabetes, previous tobacco dependence, chronic marijuana use. Not currently following with a PCP. Patient was recently hospitalized 07/29/2024 with unstable angina. The following day, underwent heart catheterization on 07/30/2024, multivessel coronary artery disease was noted. There was a stent placed to the ramus intermedius at this time. Inability, to stent the left circumflex artery. Transthoracic echocardiogram estimates left ventricular systolic function 55 to 60%, as well as, mild mitral and tricuspid regurgitation. Patient was discharged home on August. Returned to the emergency department the following day with severe substernal chest pain that occurred while watching TV. Chest pain radiated to left arm. Lasted approximately 10 minutes. Associated symptoms including shortness of breath, nausea, diaphoresis. Her did drive her to the emergency room. Patient brought back to the [facility] on 08/03/2024 multivessel coronary artery disease again noted including 40 to 50% left main stenosis, 20 to 30% LAD stenosis, patent stent to the ramus, and 80% dominant left circumflex stenosis. A cardiothoracic surgical consult was initiated. We are being asked to see this patient in pulmonary consultation in preparation for preoperative CABG. Chest CT done this admission did not show any acute pulmonary processes. Patient does have a smoking history approximately 1 pack/day smoker for 20 years. Quit smoking cigarettes 3 years ago and started vaping. Also smokes marijuana daily.. No diagnosed COPD, asthma, or other pre-existing pulmonary conditions. A bedside spirometry was performed, her FEV1 was reportedly 85% of predicted. Patient is currently sitting up in the bedside recliner, on room air, in no acute respiratory distress. SpO2 is 96%. No current chest pain. Most recent CBC from this morning: WBC count 5, hemoglobin 9.9, hematocrit 29.2, platelets 101,000. Most recent CMP from 08/03/2024: Sodium 137, potassium 4.4, chloride 110, serum bicarb 25, BUN 11, creatinine 0.79, glucose 139. LFTs mildly elevated. Serial troponins 0.045, 0.05, and 0.054 respectively. NT proBNP 291. STS score is being calculated. 08/06/2024, patient is being seen for a follow-up. The patient is doing well. No specific complaints. The the patient remains on IV heparin. She is free of any chest pain for now. She did have an episode of chest pain yesterday.. No cardiac arrhythmias. No hemodynamic instability. Respiratory status is also stable. The patient has no specific complaints. Blood work from today shows a white cell count of 5.6, hemoglobin 9.8 which is stable compared to yesterday and a platelet count of 117, stable. BUN is 13 with a creatinine of 0.8 and sodium levels at 136. LFTs were noted, the numbers are improving. UA is negative. On 08/07/2024, the patient is doing well. No specific complaints. Overnight, she had some vague chest pain. Based on that, the patient was taken off IV heparin and patient was started on Aggrastat. She is free of chest pain for now. Hemodynamically stable. Remains on metoprolol 50 mg twice daily. Remains in aspirin. Labs from today are still pending. Room air oxygen. No other new complaints. On 08/08/2024, the patient is free of any chest pain. The patient encountered some epistaxis while being on Aggrastat. This will be continued till midnight today and subsequent this will be stopped as the patient is getting ready for bypass surgery tomorrow. The white cell count is 4.5 with a hemoglobin 9.5 and a platelet count of 100. Sodium is at 137, potassium is at 3.9, BUN is 18 with a creatinine of 0.7. LFTs are also stable. No other significant events overnight. The patient is clinically and hemodynamically stable. The patient is seen today August 09, 2024 in follow-up in the intensive care unit. Status post off-pump coronary artery bypass grafting x 3 with sequential PERSAUD to the diagonal and LAD, saphenous vein graft to the obtuse marginal branch of the RCA. Left atrial appendage clipping. Postoperative day #0. She is intubated on the mechanical ventilator and assist-control mode at a rate of 14, tidal volume 400, FiO2 100% and a PEEP of 5. Arterial blood gases revealed a PaO2 of 420, pCO2 45 and a pH of 7.33. She is currently on Cleviprex at 3 mg/hr. Insulin drip at 2 units an hour. Nitroglycerin drip at 5 mcg/min. Propofol at 35 mcg/kg/min. Normal saline at 50 mL/h. She has a mediastinal and left pleural chest tubes in place. Cardiac output 5.7. Cardiac index 2.8. PA pressures 41/11. CVP of 17. Chest x-ray shows some mild pulmonary edema. White count 4.4. Hemoglobin 7.9. Platelets 74,000. INR 1.5. Sodium 137. Potassium 4.1. Bicarb 23. BUN 11. Creatinine 0.71. Glucose 127. Ionized calcium 4.4. Magnesium 1.3. AST 37. ALT 22. She has been initiated on bro nchodilators. Anticoagulated with Arixtra. Patient evaluated today on 08/10/2024, patient was extubated yesterday at 6:53 PM she is now on 2 L nasal cannula with O2 sats of 96%. Achieving about 1000 cc with incentive spirometry patient has the typical postoperative pain, mostly at the site of tube insertion. Patient is in sinus rhythm, had some frequent PVCs last night, and she was placed on amiodarone drip at 0.5 mg/min. No further ectopy has been reported. Her mediastinal and left pleural chest tubes were noted, remain on continuous suction no air leak is noted, draining still serosanguineous drainage. Mediastinal chest tube noted her urine output is 450 in the last 8 hours, cardiac output is 4.7 cardiac index 2.3 PA pressures 26/21 CVP of 8. X-ray showed mostly postoperative changes. WBC count is 11 hemoglobin 8.5, basic metabolic profile is normal and renal profile is normal Patient earlier today on 08/11/2024, sitting at the bedside chair, doing well, in no form of distress, patient is achieving over 1500 cc on her incentive spirometry. Chest x-ray is relatively unremarkable, she has mostly postoperative changes, patient is not requiring any inotropes or any pressors. Remains on insulin drip for her diabetes. Her mediastinal and left pleural chest tube may be removed today. There is still present. No air leak is noted. Labs were reviewed, chest x-ray was reviewed, patient is doing great overall. WBC count is 7.7 hemoglobin 7.2 platelets are 75,000's. Basic metabolic profile is normal BUN is normal creatinine is normal, chest x-ray showed minimal left ba silar atelectasis. Objective - Vital Signs Vital signs: Vital Signs Temp 99.8 F H 08/11/24 12:00 Pulse 90 08/11/24 13:00 Resp 20 08/11/24 13:00 BP 92/56 08/11/24 13:00 Pulse Ox 96 08/11/24 13:00 FiO2 45 08/09/24 18:16 Intake & Output 08/10/24 08/11/24 08/11/24 18:59 06:59 18:59 Intake Total 2970.734 025.425 6873.294 Output Total 975 910 370 Balance 1995.734 -292.804 955.294 Weight 108.3 kg 109.9 kg Intake: IV 1171 552 294 0.9 @ 50 500 480 170 Albumin Human 5% 250 ml 500 In Empty Bag 1 bag @ 250 mls/hr IVPB Q1HR PRN Rx#: [id number] CO/CI 40 Calcium Gluconate in NaCl 100 1 gm In Saline 1 100ml. bag @ 100 mls/hr IVPB ONCE ONE Rx#:[id number] ceFAZolin 2 gm In Sodium 50 Chloride 0.9% 50 ml @ 100 mls/hr IVPB Q8HR [facility] Rx# :[id number] pressure bags 81 72 24 Intake, IV Titration 299.734 65.196 31.294 Amount Amiodarone 450 mg In 250 Dextrose 5% in Water 250 ml @ 0.5 MG/MIN 16.667 mls/hr IV .Q15H PRN Rx#: [id number] Insulin Regular 100 unit 49.734 65.196 8.636 In Sodium Chloride 0.9% 100 ml @ Per Protocol IV .Q0M GABO Rx#:[id number] Insulin Regular 100 unit 22.658 In Sodium Chloride 0.9% 100 ml @ Per Protocol IV .Q0M [facility] Rx#:[id number] Oral 1500 1000 Output: Chest Tube Drainage 510 300 130 Left Pleural 160 140 70 Mediastinal 350 160 60 Urine 465 610 240 Other: Voiding Method Indwelling Catheter Indwelling Catheter Indwelling Catheter ABP, PAP, CO, CI - Last Documented Arterial Blood Pressure 104/51 Pulmonary Artery Pressure 24/17 Cardiac Output 4.7 Cardiac Index 2.3 - Exam GENERAL EXAM: 49-year-old not in any distress, on room air HEAD: Normocephalic. EYES: Within normal. NOSE: Clear with pink turbinates. THROAT: Clear. Normal mucous membranes NECK: No masses, no JVD. CHEST: Sternal dressing dry and intact. Heart hugger in place. Mediastinal and left pleural chest tubes in place. LUNGS: Equal air entry with no crackles, wheeze, rhonchi or dullness. CVS: S1 and S2 normal with no audible murmur, regular rhythm. ABDOMEN: No hepatosplenomegaly, no guarding or rigidity. SKIN: No rashes CENTRAL NERVOUS SYSTEM: Alert and oriented x 3 no gross focal deficit EXTREMITIES: Bilateral lower extremity Marcos wraps in place. SCDs in place. - Labs CBC & Chem 7: 08/11/24 04:02 08/11/24 04:02 Labs: Abnormal Lab Results - Last 24 Hours (Table) 08/10/24 08/10/24 08/10/24 Range/Units 16:12 17:03 19:02 RBC (3.80-5.40) m/uL Hgb (11.4-16.0) gm/dL Hct (34.0-46.0) % RDW (11.5-15.5) % Plt Count (150-450) k/uL Sodium (137-145) mmol/L Carbon Dioxide (22-30) mmol/L Glucose (74-99) mg/dL POC Glucose (mg/dL) 151 H 141 H 160 H (70-110) mg/dL Calcium (8.4-10.2) mg/dL Total Bilirubin (0.2-1.3) mg/dL AST (14-36) U/L Total Protein (6.3-8.2) g/dL Albumin (3.5-5.0) g/dL 08/10/24 08/10/24 08/10/24 Range/Units 19:55 20:56 21:58 RBC (3.80-5.40) m/uL Hgb (11.4-16.0) gm/dL Hct (34.0-46.0) % RDW (11.5-15.5) % Plt Count (150-450) k/uL Sodium (137-145) mmol/L Carbon Dioxide (22-30) mmol/L Glucose (74-99) mg/dL POC Glucose (mg/dL) 137 H 126 H 115 H (70-110) mg/dL Calcium (8.4-10.2) mg/dL Total Bilirubin (0.2-1.3) mg/dL AST (14-36) U/L Total Protein (6.3-8.2) g/dL Albumin (3.5-5.0) g/dL 08/11/24 08/11/24 08/11/24 Range/Units 00:06 00:57 01:59 RBC (3.80-5.40) m/uL Hgb (11.4-16.0) gm/dL Hct (34.0-46.0) % RDW (11.5-15.5) % Plt Count (150-450) k/uL Sodium (137-145) mmol/L Carbon Dioxide (22-30) mmol/L Glucose (74-99) mg/dL POC Glucose (mg/dL) 126 H 125 H 115 H (70-110) mg/dL Calcium (8.4-10.2) mg/dL Total Bilirubin (0.2-1.3) mg/dL AST (14-36) U/L Total Protein (6.3-8.2) g/dL Albumin (3.5-5.0) g/dL 08/11/24 08/11/24 08/11/24 Range/Units 04:02 04:02 04:02 RBC 2.36 L (3.80-5.40) m/uL Hgb 7.2 L (11.4-16.0) gm/dL Hct 21.4 L (34.0-46.0) % RDW 16.9 H (11.5-15.5) % Plt Count 75 L (150-450) k/uL Sodium 131 L (137-145) mmol/L Carbon Dioxide 21 L (22-30) mmol/L Glucose 114 H (74-99) mg/dL POC Glucose (mg/dL) 127 H (70-110) mg/dL Calcium 7.9 L (8.4-10.2) mg/dL Total Bilirubin 2.8 H (0.2-1.3) mg/dL AST 49 H (14-36) U/L Total Protein 5.1 L (6.3-8.2) g/dL Albumin 3.0 L (3.5-5.0) g/dL 08/11/24 08/11/24 08/11/24 Range/Units 05:17 06:07 07:05 RBC (3.80-5.40) m/uL Hgb (11.4-16.0) gm/dL Hct (34.0-46.0) % RDW (11.5-15.5) % Plt Count (150-450) k/uL Sodium (137-145) mmol/L Carbon Dioxide (22-30) mmol/L Glucose (74-99) mg/dL POC Glucose (mg/dL) 137 H 133 H 130 H (70-110) mg/dL Calcium (8.4-10.2) mg/dL Total Bilirubin (0.2-1.3) mg/dL AST (14-36) U/L Total Protein (6.3-8.2) g/dL Albumin (3.5-5.0) g/dL 08/11/24 08/11/24 08/11/24 Range/Units 08:03 09:11 10:07 RBC (3.80-5.40) m/uL Hgb (11.4-16.0) gm/dL Hct (34.0-46.0) % RDW (11.5-15.5) % Plt Count (150-450) k/uL Sodium (137-145) mmol/L Carbon Dioxide (22-30) mmol/L Glucose (74-99) mg/dL POC Glucose (mg/dL) 152 H 140 H 171 H (70-110) mg/dL Calcium (8.4-10.2) mg/dL Total Bilirubin (0.2-1.3) mg/dL AST (14-36) U/L Total Protein (6.3-8.2) g/dL Albumin (3.5-5.0) g/dL 08/11/24 08/11/24 Range/Units 12:01 13:13 RBC (3.80-5.40) m/uL Hgb (11.4-16.0) gm/dL Hct (34.0-46.0) % RDW (11.5-15.5) % Plt Count (150-450) k/uL Sodium (137-145) mmol/L Carbon Dioxide (22-30) mmol/L Glucose (74-99) mg/dL POC Glucose (mg/dL) 116 H 161 H (70-110) mg/dL Calcium (8.4-10.2) mg/dL Total Bilirubin (0.2-1.3) mg/dL AST (14-36) U/L Total Protein (6.3-8.2) g/dL Albumin (3.5-5.0) g/dL Assessment and Plan Assessment: Impression: Coronary artery disease status post three-vessel off-pump coronary artery bypass grafting surgery, postoperative day #2 Thrombocytopenia History of hypertension Diet-controlled diabetes, hemoglobin A1c 5.8% Bipolar disorder, history of suicidal ideation Previous tobacco user, with recent cessation from vaping, FEV1 85% of predicted value Marijuana use History of EtOH abuse Recommendation: Continue Plavix beta-blockers aspirin and statins Continue incentive spirometry, achieving over 1500 mL on her incentive spirometry Continue GI DVT prophylaxis Continue ambulation and physical therapy Remove unnecessary lines or catheters early Daily x-rays of the chest chest x-ray today was reviewed she had minimal left basilar atelectasis, expected Encourage deep cough and deep breathing and incentive spirometry Will continue to follow Time with Patient: Less than 30
[2024-08-11 15:06] LABS: Glucose,Whole Blood 197 mg/dL (70-110)
[2024-08-11 17:08] LABS: Glucose,Whole Blood 154 mg/dL (70-110)
[2024-08-11] MEDS: INSULIN ASPART (NovoLOG) 100 UNIT/ML VIAL SQ SCH (18:24)
[2024-08-11 20:10] LABS: Glucose,Whole Blood 173 mg/dL (70-110)
--- NOTE | 2024-08-12 05:46 | P.PN ---
Subjective Progress Note Date: 08/11/24 This is a pleasant 49 years old female who was recently discharged from the hospital on 08/01 after she had cardiac cath. Patient presents because of chest pain thought secondary to unstable angina with negative troponins. She underwent left heart catheterization 07/30/2024 showing CAD i with 20-30% distal left main stenosis, LAD 20-30% stenosis, ramus 90% stenosis, ostial circumflex 99% stenosis, status post PCI of the ramus, status post PTCA circumflex. She was started on aspirin and Brilinta. After discharge patient could not fill up her prescription because it was a long weekend holiday for . She presents this time because of chest pain that lasted about 15 minutes. Patient currently denies chest pain no dyspnea. No coughing No other /GI symptoms. Earlier she had nausea which is resolved now. No abdominal pain vomiting diarrhea. No headache dizziness weakness or numbness She smokes cigarettes and states she quit smoking today without specification. Nicotine patch offered but she declines. She drinks alcohol occasionally. No illicit drugs. Her control room supervisor is Dr. Ogden that she intends to follow-up in 1 week. She states she has no PCP but she intends to find 1. Hemodynamically stable Labs showing WBC 3.7 and platelet count 9.7. Liver enzymes mildly elevated. Troponin are elevated 0.4 and 0.5 and 0.5 D-dimer negative at 0.55 proBNP is 291 Amylase lipase negative Chest x-ray is negative for acute process EKG showing sinus bradycardia at [address]-T changes Upper extremity duplex of the forearm was negative. 08/04/2024 Patient is seen and evaluated in follow-up today currently undergoing stress test with cardiology following. Patient continues to report chest pain and chest discomfort with shortness of breath with exertion. Patient being followed by cardiothoracic surgery undergoing workup for possible CABG. CT chest is ordered and pending as well. Patient is afebrile with no worsening shortness of breath or palpitations noted. Patient denies nausea or vomiting and was currently n.p.o. for the stress test this morning. 08/05/2024 Patient is seen and evaluated in follow-up this morning currently undergoing preop workup with CT surgery and tentatively scheduled for off-pump intervention on 08/09/[address] Ortiz. Patient reports currently her chest pain is under control although has not been up and moving much other to the bathroom and back. Patient encouraged to increase activity with frequent walks and also continue with the use of the incentive spirometer and further testing per CT surgery. Patient reports she did have an episode of loose stool this morning and have ordered as needed Imodium. Patient is afebrile with no reports of chest pain, shortness of breath, or palpitations at this time. Will follow-up on serial labs and continue to monitor closely until surgery. Patient to continue on 3 S. per protocol 08/06/2024 Patient is seen in follow-up today awaiting off-pump intervention on 08/09/[address] Ortiz. Patient reports occasionally having s ome anxiety about the overall surgery although continues to wish to proceed with surgical intervention to improve quality of life. Patient reports she continues to have intermittent episodes of chest pain and heaviness. Patient denies any further diarrhea reported it was 1 isolated incident and tolerating diet. Patient remains on room air with no reports of shortness of breath. at the bedside with questions and concerns that were answered 08/07 Patient was seen and examined today. No issues overnight. Patient had just been overnight, patient was taken off IV heparin and started on Aggrastat. Chest pain currently resolved. Vital stable. No labs this morning. 08/08/2024--patient was seen and examined today. No further episodes of chest pain. Patient had some epistaxis earlier on Aggrastat, now resolved. Pulmonary following. Cardiac surgery following, plan for CABG tomorrow. Vital stable. Normal WBCs, hemoglobin 9.5, platelets 100. INR 1.2. Normal BUN/creatinine. 08/09/2024 Patient is currently in preop undergoing off-pump intervention with cardiothoracic surgery. Will await surgical report. 08/10/2024 Patient is seen in follow-up status post CABG with PERSAUD to the LAD and diagonal and SVG to the acute marginal branch of the RCA. Patient was successfully extubated currently maintained on 2 L of oxygen denies any extreme shortness of breath although does get winded with movement. Heart hugger is noted and patient continues with chest tubes along with swans catheter and indwelling Oliver catheter. Patient currently sitting up in the chair and will be starting physical therapy today. Patient had not eaten and feels slightly nauseated, continue with supportive care of antinausea medications and also will continue insulin drip for now and transition off the drip once she is tolerating more diet. 08/11/2024 Patient is seen in follow-up continues in the ICU currently awaiting to be transferred to [facility] and walking the unit doing relatively well. Patient continues with chest tubes and will have indwelling Oliver catheter along with IJ and Cordis catheter removed today. Follow-up chest x-ray ordered for a.m. Patient remains on insulin drip and tolerating diet will adjust to sliding scale and add long-acting as needed and discontinue the drip. Patient is afebrile reports some chest wall pain and is using the heart hugger but denies any sig nificant shortness of breath and is on room air. Recommend PT/OT therapy daily and working with CT surgery regarding discharge planning Review of systems: Constitutional: No reports of fatigue, fever, or chills Cardiovascular: reports of continued chest wall pain, denies palpitations Respiratory: No reports of shortness of breath or cough other than with exertion GI: No reports of nausea, vomiting, reports no further diarrhea noted : No reports of dysuria or retention Neurovascular: reports of generalized weakness All medications have been reviewed Physical exam: GENERAL: The patient is alert and oriented x3, not in any acute distress. Well developed, well nourished. Currently up and walking the halls with a steady gait. Morbidly obese HEENT: Pupils are round and equally reacting to light. EOMI. No scleral icterus. No conjunctival pallor. Normocephalic, atraumatic. No pharyngeal erythema. No thyromegaly. CARDIOVASCULAR: S1 and S2 present. No murmurs, rubs, or gallops. PULMONARY: Chest is clear to auscultation, no wheezing , no crackles. 2 chest tubes noted ABDOMEN: Soft, nontender, nondistended, normoactive bowel sounds. No palpable organomegaly. MUSCULOSKELETAL: No joint swelling or deformity. EXTREMITIES: No cyanosis, clubbing, or pedal edema. Ecchymosis of the right forearm on the medial side is improving. NEUROLOGICAL: Gross neurological examination did not reveal any focal deficits. Diffusely weak SKIN: No rashes. no petechiae. Assessment: Chest pain with mildly elevated troponin and review of recent stent placement to ramus branch and PTCA circumflex. Related to her unstable angina. Coronary artery disease status post CABG on 08/09/2024 Nonadherence to therapy because it was holiday and she could not follow-up her prescription from the pharmacy Mild transaminitis Mild bicytopenia with leukopenia and thrombocytopenia Hypertension Diabetes Morbid obesity with a BMI of 41.1 Nicotine dependence with vaping Osteoarthritis History of kidney stones GI prophylaxis DVT prophylaxis Full code Plan: Continue with cardiology and CT surgery following. Patient is up and walking the halls with physical therapy and has a downgrade to 3 S. Patient continues with chest tubes and has had indwelling Oliver catheter and Cordis cath along with IJ removed Patient is tolerating diet and encouraged small frequent meals and will discontinue the insulin drip and initiate sliding scale. Will add long-acting as needed blood sugars become elevated Provide resources for outpatient follow-up to establish with a primary care pro vider. Patient reports she was a patient of Dr. Marin previously although he relocated and difficult due to social issues and barriers with only having 1 deliver driver in the home, patient is unable to make it to her appointments. Continue to encourage complete smoking and vaping cessation We will continue to follow along with CT surgery during hospitalization. The impression and plan of care has been dictated by Jessica Rendon, Nurse Practitioner as directed. Dr. Heriberto MD I have performed a history and examination and MDM of this patient, discussed the same with the dictator, and agree with the dictator's assessment and plan as written ,documented as a scribe. Based on total visit time, I have performed more than 50% of the visit. Currently undergoing stress test with cardiology following. Objective - Vital Signs Vital signs: Vital Signs Temp 98.3 F 08/11/24 08:30 Pulse 90 08/11/24 10:00 Resp 16 08/11/24 10:00 BP 102/53 08/11/24 08:00 Pulse Ox 94 L 08/11/24 10:00 FiO2 45 08/09/24 18:16 Intake & Output 08/10/24 08/11/24 08/11/24 18:59 06:59 18:59 Intake Total 2970.734 617.196 780.424 Output Total 975 910 200 Balance 1995.734 -292.804 580.424 Weight 108.3 kg 109.9 kg Intake: IV 1171 552 268 0.9 @ 50 500 480 150 Albumin Human 5% 250 ml 500 In Empty Bag 1 bag @ 250 mls/hr IVPB Q1HR PRN Rx#: [id number] CO/CI 40 Calcium Gluconate in NaCl 100 1 gm In Saline 1 100ml. bag @ 100 mls/hr IVPB ONCE ONE Rx#:[id number] ceFAZolin 2 gm In Sodium 50 Chloride 0.9% 50 ml @ 100 mls/hr IVPB Q8HR [facility] Rx# :[id number] pressure bags 81 72 18 Intake, IV Titration 299.734 65.196 12.424 Amount Amiodarone 450 mg In 250 Dextrose 5% in Water 250 ml @ 0.5 MG/MIN 16.667 mls/hr IV .Q15H PRN Rx#: [id number] Insulin Regular 100 unit 49.734 65.196 8.636 In Sodium Chloride 0.9% 100 ml @ Per Protocol IV .Q0M [facility] Rx#:[id number] Insulin Regular 100 unit 3.788 In Sodium Chloride 0.9% 100 ml @ Per Protocol IV .Q0M [facility] Rx#:[id number] Oral 1500 500 Output: Chest Tube Drainage 510 300 60 Left Pleural 160 140 30 Mediastinal 350 160 30 Urine 465 610 140 Other: Voiding Method Indwelling Catheter Indwelling Catheter ABP, PAP, CO, CI - Last Documented Arterial Blood Pressure 97/52 Pulmonary Artery Pressure 24 Cardiac Output 4.7 Cardiac Index 2.3 - Labs CBC & Chem 7: 08/11/24 04:02 08/11/24 04:02 Labs: Abnormal Lab Results - Last 24 Hours (Table) 08/10/24 08/10/24 08/10/24 Range/Units 11:02 12:18 13:04 RBC (3.80-5.40) m/uL Hgb (11.4-16.0) gm/dL Hct (34.0-46.0) % RDW (11.5-15.5) % Plt Count (150-450) k/uL Sodium (137-145) mmol/L Carbon Dioxide (22-30) mmol/L Glucose (74-99) mg/dL POC Glucose (mg/dL) 127 H 112 H 117 H (70-110) mg/dL Calcium (8.4-10.2) mg/dL Total Bilirubin (0.2-1.3) mg/dL AST (14-36) U/L Total Protein (6.3-8.2) g/dL Albumin (3.5-5.0) g/dL 08/10/24 08/10/24 08/10/24 Range/Units 14:00 16:12 17:03 RBC (3.80-5.40) m/uL Hgb (11.4-16.0) gm/dL Hct (34.0-46.0) % RDW (11.5-15.5) % Plt Count (150-450) k/uL Sodium (137-145) mmol/L Carbon Dioxide (22-30) mmol/L Glucose (74-99) mg/dL POC Glucose (mg/dL) 142 H 151 H 141 H (70-110) mg/dL Calcium (8.4-10.2) mg/dL Total Bilirubin (0.2-1.3) mg/dL AST (14-36) U/L Total Protein (6.3-8.2) g/dL Albumin (3.5-5.0) g/dL 08/10/24 08/10/24 08/10/24 Range/Units 19:02 19:55 20:56 RBC (3.80-5.40) m/uL Hgb (11.4-16.0) gm/dL Hct (34.0-46.0) % RDW (11.5-15.5) % Plt Count (150-450) k/uL Sodium (137-145) mmol/L Carbon Dioxide (22-30) mmol/L Glucose (74-99) mg/dL POC Glucose (mg/dL) 160 H 137 H 126 H (70-110) mg/dL Calcium (8.4-10.2) mg/dL Total Bilirubin (0.2-1.3) mg/dL AST (14-36) U/L Total Protein (6.3-8.2) g/dL Albumin (3.5-5.0) g/dL 08/10/24 08/11/24 08/11/24 Range/Units 21:58 00:06 00:57 RBC (3.80-5.40) m/uL Hgb (11.4-16.0) gm/dL Hct (34.0-46.0) % RDW (11.5-15.5) % Plt Count (150-450) k/uL Sodium (137-145) mmol/L Carbon Dioxide (22-30) mmol/L Glucose (74-99) mg/dL POC Glucose (mg/dL) 115 H 126 H 125 H (70-110) mg/dL Calcium (8.4-10.2) mg/dL Total Bilirubin (0.2-1.3) mg/dL AST (14-36) U/L Total Protein (6.3-8.2) g/dL Albumin (3.5-5.0) g/dL 08/11/24 08/11/24 08/11/24 Range/Units 01:59 04:02 04:02 RBC 2.36 L (3.80-5.40) m/uL Hgb 7.2 L (11.4-16.0) gm/dL Hct 21.4 L (34.0-46.0) % RDW 16.9 H (11.5-15.5) % Plt Count 75 L (150-450) k/uL Sodium 131 L (137-145) mmol/L Carbon Dioxide 21 L (22-30) mmol/L Glucose 114 H (74-99) mg/dL POC Glucose (mg/dL) 115 H (70-110) mg/dL Calcium 7.9 L (8.4-10.2) mg/dL Total Bilirubin 2.8 H (0.2-1.3) mg/dL AST 49 H (14-36) U/L Total Protein 5.1 L (6.3-8.2) g/dL Albumin 3.0 L (3.5-5.0) g/dL 08/11/24 08/11/24 08/11/24 Range/Units 04:02 05:17 06:07 RBC (3.80-5.40) m/uL Hgb (11.4-16.0) gm/dL Hct (34.0-46.0) % RDW (11.5-15.5) % Plt Count (150-450) k/uL Sodium (137-145) mmol/L Carbon Dioxide (22-30) mmol/L Glucose (74-99) mg/dL POC Glucose (mg/dL) 127 H 137 H 133 H (70-110) mg/dL Calcium (8.4-10.2) mg/dL Total Bilirubin (0.2-1.3) mg/dL AST (14-36) U/L Total Protein (6.3-8.2) g/dL Albumin (3.5-5.0) g/dL 08/11/24 08/11/24 08/11/24 Range/Units 07:05 08:03 09:11 RBC (3.80-5.40) m/uL Hgb (11.4-16.0) gm/dL Hct (34.0-46.0) % RDW (11.5-15.5) % Plt Count (150-450) k/uL Sodium (137-145) mmol/L Carbon Dioxide (22-30) mmol/L Glucose (74-99) mg/dL POC Glucose (mg/dL) 130 H 152 H 140 H (70-110) mg/dL Calcium (8.4-10.2) mg/dL Total Bilirubin (0.2-1.3) mg/dL AST (14-36) U/L Total Protein (6.3-8.2) g/dL Albumin (3.5-5.0) g/dL 08/11/24 Range/Units 10:07 RBC (3.80-5.40) m/uL Hgb (11.4-16.0) gm/dL Hct (34.0-46.0) % RDW (11.5-15.5) % Plt Count (150-450) k/uL Sodium (137-145) mmol/L Carbon Dioxide (22-30) mmol/L Glucose (74-99) mg/dL POC Glucose (mg/dL) 171 H (70-110) mg/dL Calcium (8.4-10.2) mg/dL Total Bilirubin (0.2-1.3) mg/dL AST (14-36) U/L Total Protein (6.3-8.2) g/dL Albumin (3.5-5.0) g/dL
[2024-08-12 06:13] LABS: Glucose,Whole Blood 163 mg/dL (70-110)
[2024-08-12 07:32] LABS: Anisocytosis Slight; HCT 23.1 % (34.0-46.0); HGB 7.8 gm/dL (11.4-16.0); Hypochromasia Slight; MCH 31.4 pg (25.0-35.0); MCHC 33.8 g/dL (31.0-37.0); MCV 92.9 fL (80.0-100.0); Mean Platelet Volume 13.1; Platelet Count 88 k/uL (150-450); Poikilocytosis Slight; RBC 2.49 m/uL (3.80-5.40); RDW 17.1 % (11.5-15.5); WBC 7.4 k/uL (3.8-10.6)
[2024-08-12 07:48] LABS: ALT 25 U/L (4-34); AST 46 U/L (14-36); African American GFR (CKD) >90 (>60 ml/min/1.73 sqM); Alkaline Phosphatase 65 U/L (38-126); Anion Gap 6 mmol/L; Blood Urea Nitrogen 17 mg/dL (7-17); Calcium 8.2 mg/dL (8.4-10.2); Carbon Dioxide 23 mmol/L (22-30); Chloride 106 mmol/L (98-107); Glucose 169 mg/dL (74-99); Non-African American GFR(CKD) 82 (>60 ml/min/1.73 sqM); Sodium 135 mmol/L (137-145); Total Protein 5.3 g/dL (6.3-8.2)
--- NOTE | 2024-08-12 08:18 | XR ---
EXAMINATION TYPE: XR chest 1V portable DATE OF EXAM: 08/12/2024 COMPARISON: NONE HISTORY: Chest pain TECHNIQUE: Single frontal view of the chest is obtained. FINDINGS: Left-sided chest tube is noted in place without sizable pneumothorax. Pleural parenchymal density not ed in the region of the lingula. Remainder of the lungs are clear. Median sternotomy changes. IMPRESSION: 1. Post Operative CABG changes
--- NOTE | 2024-08-12 10:37 | P.PN ---
Subjective Progress Note Date: 08/12/24 Principal diagnosis: Coronary artery disease status post recent stentto her ramus coronary artery, currently on Brilinta, elevated serial troponins on admission, troponin 0.045 with peak 0.054. Past medical history significant for hypertension, diet- controlled diabetes with a hemoglobin A1c of 5.8%, bipolar disorder, previous tobacco cessation with recent cessation from vaping, history of EtOH abuse, chronically elevated transaminase enzymes and marijuana use. POD #3 Off-pump coronary artery bypass grafting x 3 with sequential left internal mammary artery to diagonal coronary artery and left anterior descending coronary artery, saphenous vein graft to acute marginal branch of the right coronary artery, endovascular vein harvest of the greater saphenous vein from the left thigh, exclusion of the left atrial appendage with a 35 mm AtriCure clip. Intraoperative transesophageal echocardiogram performed by anesthesia. Postoperative acute blood loss anemia and thrombocytopenia, expected given the patient's preoperative anemia and thrombocytopenia and hemodilution. The patient was seen and examined in follow-up today 08/12/2024 at her bedside on the third floor cardiac stepdown unit. She is currently sitting up to the bedside chair, is awake, alert, oriented 3 and is in no acute apparent distress. Her is present at her bedside. She denies any complaints of pain or shortness of breath at this time. Remote telemetry showing normal sinus rhythm heart rate 80 BPM. She remains afebrile. Oxygen saturations are 96% on room air and she is achieving 1500 mL on her incentive spirometry. Mediastinal and left pleural chest tubes remained in place to low continuous wall suction - 20 cm H2O. No air leak is present. Mediastinal chest tube draining thin serous drainage with 70 mL output in the last 8 hours and 180 mL output than last 24 hours. Left pleural chest tube draining thin serosanguineous drainage with 65 mL output in the last 8 hours and 180 mL output in the last 24 hours. Chest X- ray and laboratory results were reviewed. Objective - Vital Signs Vital signs: Vital Signs Temp 98 F 08/12/24 08:24 Pulse 80 08/12/24 08:24 Resp 17 08/12/24 08:24 BP 120/54 08/12/24 08:24 Pulse Ox 97 08/12/24 08:24 FiO2 45 08/09/24 18:16 Intake & Output 09/11/24 09/12/24 09/12/24 18:59 06:59 18:59 Intake Total 7461.792 9200 240 Output Total 460 1245 130 Balance 865.294 -205 110 Intake: IV 294 560 0.9 @ 50 170 540 Calcium Gluconate in NaCl 100 1 gm In Saline 1 100ml. bag @ 100 mls/hr IVPB ONCE ONE Rx#:[id number] Invasive Line 3 10 Invasive Line 4 10 pressure bags 24 Intake, IV Titration 31.294 Amount Insulin Regular 100 unit 8.636 In Sodium Chloride 0.9% 100 ml @ Per Protocol IV .Q0M [facility] Rx#:[id number] Insulin Regular 100 unit 22.658 In Sodium Chloride 0.9% 100 ml @ Per Protocol IV .Q0M [facility] Rx#:[id number] Oral 1000 480 240 Output: Chest Tube Drainage 220 135 30 Left Pleural 110 65 Mediastinal 110 70 30 Urine 240 1110 100 Other: Voiding Method Indwelling Catheter Bedside Commode # Voids 2 ABP, PAP, CO, CI - Last Documented Arterial Blood Pressure 104/51 Pulmonary Artery Pressure 24/17 Cardiac Output 4.7 Cardiac Index 2.3 - Exam CONSTITUTIONAL: Sitting up to the bedside chair On the cardiac stepdown unit, appears comfortable, cooperative, no apparent acute distress. HEENT: Neck is supple, no JVD, no lymphadenopathy. RESPIRATORY: Lungs sounds essentially clear throughout, diminished to her bilateral bases. Respirations are symmetrical and nonlabored. Currently on room air with oxygen saturations 96%. Able to achieve 1500 mL on her incentive spirometry. Strong cough. CARDIOVASCULAR: Regular rhythm and rate. S1 and S2 present, negative for S3, or gallop. Systolic murmur present 2/6. Sternum is stable. Palpable peripheral pulses bilaterally. No calf pain or tenderness noted. Heart hugger in place with patient demonstrating appropriate use. Knee-high BRYON hose and sequential compression devices in place to her bilateral lower extremities. GASTROINTESTINAL: Abdomen soft, nontender, nondistended. Active bowel sounds present 4 quadrants. Tolerating diet. Passing flatus. No guarding or rigidity. GENITOURINARY: Continues avoid. Urine output 460 mL in the last 8 hours. INTEGUMENTARY: Skin is warm and dry with no evidence of clubbing or cyanosis. Midline sternal incision clean dry and well approximated, covered with dry intact dressing. Left lower extremity EVH sites well approximated without redness or drainage. NEUROLOGIC: Cranial nerves II through XII intact. No focal deficits. MUSKULOSKELETAL: Able to move all extremities, strength equal bilaterally. PSYCHIATRIC: Alert and oriented to person place and time, appropriate affect, intact judgment and insight. INVASIVE LINES AND TUBES: Mediastinal and left pleural chest tube remain in place to low continuous wall suction -20 cm H2O. No air leak is present. Mediastinal chest tube draining thin serous drainage with 70 mL output in the last 8 hours and 180 mL output than last 24 hours. Left pleural chest tube draining thin serosanguineous drainage with 65 mL output in the last 8 hours and 175 mL output in the last 24 hours. - Allied health notes Allied health notes reviewed: nursing - Labs CBC & Chem 7: 08/12/24 07:19 08/12/24 07:19 Labs: Abnormal Lab Results - Last 24 Hours (Table) 08/11/24 08/11/24 08/11/24 Range/Units 12:01 13:13 15:05 RBC (3.80-5.40) m/uL Hgb (11.4-16.0) gm/dL Hct (34.0-46.0) % RDW (11.5-15.5) % Plt Count (150-450) k/uL Sodium (137-145) mmol/L Glucose (74-99) mg/dL POC Glucose (mg/dL) 116 H 161 H 197 H (70-110) mg/dL Calcium (8.4-10.2) mg/dL Total Bilirubin (0.2-1.3) mg/dL AST (14-36) U/L Total Protein (6.3-8.2) g/dL Albumin (3.5-5.0) g/dL 08/11/24 08/11/24 08/12/24 Range/Units 17:06 20:08 06:11 RBC (3.80-5.40) m/uL Hgb (11.4-16.0) gm/dL Hct (34.0-46.0) % RDW (11.5-15.5) % Plt Count (150-450) k/uL Sodium (137-145) mmol/L Glucose (74-99) mg/dL POC Glucose (mg/dL) 154 H 173 H 163 H (70-110) mg/dL Calcium (8.4-10.2) mg/dL Total Bilirubin (0.2-1.3) mg/dL AST (14-36) U/L Total Protein (6.3-8.2) g/dL Albumin (3.5-5.0) g/dL 08/12/24 08/12/24 Range/Units 07:19 07:19 RBC 2.49 L (3.80-5.40) m/uL Hgb 7.8 L (11.4-16.0) gm/dL Hct 23.1 L (34.0-46.0) % RDW 17.1 H (11.5-15.5) % Plt Count 88 L (150-450) k/uL Sodium 135 L (137-145) mmol/L Glucose 169 H (74-99) mg/dL POC Glucose (mg/dL) (70-110) mg/dL Calcium 8.2 L (8.4-10.2) mg/dL Total Bilirubin 3.0 H (0.2-1.3) mg/dL AST 46 H (14-36) U/L Total Protein 5.3 L (6.3-8.2) g/dL Albumin 3.0 L (3.5-5.0) g/dL - Imaging and Cardiology Chest x-ray: report reviewed, image reviewed Assessment and Plan Assessment: Coronary artery disease status post recent stent, status post three-vessel off- pump coronary artery bypass grafting surgery Chest pain secondary to above Preserved left ventricular systolic function, EF 55-60%, mild mitral valve regurgitation, tricuspid valve regurgitation Anemia Thrombocytopenia Left ICA carotid stenosis greater than 70% and right ICA carotid stenosis less than 50% on carotid duplex study Mild splenomegaly, intermediate 1 cm splenic lesion on preoperative CT scan of the chest History of hypertension Diet-controlled diabetes, hemoglobin A1c 5.8% Bipolar disorder, history of suicidal ideation Previous tobacco cessation with recent cessation from vaping, FEV1 85% of predicted value Marijuana use History of EtOH abuse Chronic transaminitis, AST 46, Postoperative acute blood loss anemia, expected given her preoperative anemia and thrombocytopenia and hemodilution, Transfuse for 1 unit of packed red blood cells on 08/12/2024 Plan: Continue to maximize medical therapy with low-dose aspirin, statin, Plavix and beta-lopez. Increase metoprolol tartrate as tolerated with hold parameters. Encourage incentive spirometry use 10 times every hour while awake. Bronchodilators per pulmonology. Increase activity, ambulate as tolerated. PT/OT/cardiac rehab following. Will monitor daily labs and chest x-rays. Electrolyte replacement per protocol. GI/DVT prophylaxis. Pain control per current medication regimen. Insulin management per Internal medicine. Patient is diabetic, preoperative hemoglobin A1c 5.8%. Mediastinal and left pleural chest tubes were removed today. Continue to monitor strict accurate intake and output. May bladder scan every 6 hours and as needed postvoid residual, if greater than 300 mL of PVR may straight cath. Daily weights. Discharge planning is in place, anticipate discharge home with home health care in the next 24 hours. Shower daily starting tomorrow 08/13/2024. More recommendations to follow based on patient's clinical course. Time with Patient: Greater than 30
[2024-08-12 11:25] LABS: Glucose,Whole Blood 162 mg/dL (70-110)
--- NOTE | 2024-08-12 14:21 | P.PN ---
Subjective Progress Note Date: 08/12/24 Principal diagnosis: POD #3 off-pump coronary artery bypass grafting x 3 with sequential left internal mammary artery to diagonal coronary artery and left anterior descending coronary artery, saphenous vein graft to acute marginal branch of the right coronary artery, Patient is a 49-year-old female with past medical history significant for coronary artery disease with previous PCI/stenting, hypertension, hyperlipidemia, diet-controlled diabetes, previous tobacco dependence, chronic marijuana use. Not currently following with a PCP. Patient was recently hospitalized 07/29/2024 with unstable angina. The following day, underwent heart catheterization on 07/30/2024, multivessel coronary artery disease was noted. There was a stent placed to the ramus intermedius at this time. Inability, to stent the left circumflex artery. Transthoracic echocardiogram estimates left ventricular systolic function 55 to 60%, as well as, mild mitral and tricuspid regurgitation. Patient was discharged home on August. Returned to the emergency department the following day with severe substernal chest pain that occurred while watching TV. Chest pain radiated to left arm. Lasted approximately 10 minutes. Associated symptoms including shortness of breath, nausea, diaphoresis. Her did drive her to the emergency room. Patient brought back to the [employer] on 08/03/2024 multivessel coronary artery disease again noted including 40 to 50% left main stenosis, 20 to 30% LAD stenosis, patent stent to the ramus, and 80% dominant left circumflex stenosis. A cardiothoracic surgical consult was initiated. We are being asked to see this patient in pulmonary consultation in preparation for preoperative CABG. Chest CT done this admission did not show any acute pulmonary processes. Patient does have a smoking history approximately 1 pack/day smoker for 20 years. Quit smoking cigarettes 3 years ago and started vaping. Also smokes marijuana daily.. No diagnosed COPD, asthma, or other pre-existing pulmonary conditions. A bedside spirometry was performed, her FEV1 was reportedly 85% of predicted. Patient is currently sitting up in the bedside recliner, on room air, in no acute respiratory distress. SpO2 is 96%. No current chest pain. Most recent CBC from this morning: WBC count 5, hemoglobin 9.9, hematocrit 29.2, platelets 101,000. Most recent CMP from 08/03/2024: Sodium 137, potassium 4.4, chloride 110, serum bicarb 25, BUN 11, creatinine 0.79, glucose 139. LFTs mildly elevated. Serial troponins 0.045, 0.05, and 0.054 respectively. NT proBNP 291. STS score is being calculated. 08/06/2024, patient is being seen for a follow-up. The patient is doing well. No specific complaints. The the patient remains on IV heparin. She is free of any chest pain for now. She did have an episode of chest pain yesterday.. No cardiac arrhythmias. No hemodynamic instability. Respiratory status is also stable. The patient has no specific complaints. Blood work from today shows a white cell count of 5.6, hemoglobin 9.8 which is stable compared to yesterday and a platelet count of 117, stable. BUN is 13 with a creatinine of 0.8 and sodium levels at 136. LFTs were noted, the numbers are improving. UA is negative. On 08/07/2024, the patient is doing well. No specific complaints. Overnight, she had some vague chest pain. Based on that, the patient was taken off IV heparin and patient was started on Aggrastat. She is free of chest pain for now. Hemodynamically stable. Remains on metoprolol 50 mg twice daily. Remains in aspirin. Labs from today are still pending. Room air oxygen. No other new complaints. On 08/08/2024, the patient is free of any chest pain. The patient encountered some epistaxis while being on Aggrastat. This will be continued till midnight today and subsequent this will be stopped as the patient is getting ready for bypass surgery tomorrow. The white cell count is 4.5 with a hemoglobin 9.5 and a platelet count of 100. Sodium is at 137, potassium is at 3.9, BUN is 18 with a creatinine of 0.7. LFTs are also stable. No other significant events overnight. The patient is clinically and hemodynamically stable. The patient is seen today August 09, 2024 in follow-up in the intensive care unit. Status post off-pump coronary artery bypass grafting x 3 with sequential PERSAUD to the diagonal and LAD, saphenous vein graft to the obtuse marginal branch of the RCA. Left atrial appendage clipping. Postoperative day #0. She is intubated on the mechanical ventilator and assist-control mode at a rate of 14, tidal volume 400, FiO2 100% and a PEEP of 5. Arterial blood gases revealed a PaO2 of 420, pCO2 45 and a pH of 7.33. She is currently on Cleviprex at 3 mg/hr. Insulin drip at 2 units an hour. Nitroglycerin drip at 5 mcg/min. Propofol at 35 mcg/kg/min. Normal saline at 50 mL/h. She has a mediastinal and left pleural chest tubes in place. Cardiac output 5.7. Cardiac index 2.8. PA pressures 41/11. CVP of 17. Chest x-ray shows some mild pulmonary edema. White count 4.4. Hemoglobin 7.9. Platelets 74,000. INR 1.5. Sodium 137. Potassium 4.1. Bicarb 23. BUN 11. Creatinine 0.71. Glucose 127. Ionized calcium 4.4. Magnesium 1.3. AST 37. ALT 22. She has been initiated on bro nchodilators. Anticoagulated with Arixtra. Patient evaluated today on 08/10/2024, patient was extubated yesterday at 6:53 PM she is now on 2 L nasal cannula with O2 sats of 96%. Achieving about 1000 cc with incentive spirometry patient has the typical postoperative pain, mostly at the site of tube insertion. Patient is in sinus rhythm, had some frequent PVCs last night, and she was placed on amiodarone drip at 0.5 mg/min. No further ectopy has been reported. Her mediastinal and left pleural chest tubes were noted, remain on continuous suction no air leak is noted, draining still serosanguineous drainage. Mediastinal chest tube noted her urine output is 450 in the last 8 hours, cardiac output is 4.7 cardiac index 2.3 PA pressures 26/21 CVP of 8. X-ray showed mostly postoperative changes. WBC count is 11 hemoglobin 8.5, basic metabolic profile is normal and renal profile is normal Patient earlier today on 08/11/2024, sitting at the bedside chair, doing well, in no form of distress, patient is achieving over 1500 cc on her incentive spirometry. Chest x-ray is relatively unremarkable, she has mostly postoperative changes, patient is not requiring any inotropes or any pressors. Remains on insulin drip for her diabetes. Her mediastinal and left pleural chest tube may be removed today. There is still present. No air leak is noted. Labs were reviewed, chest x-ray was reviewed, patient is doing great overall. WBC count is 7.7 hemoglobin 7.2 platelets are 75,000's. Basic metabolic profile is normal BUN is normal creatinine is normal, chest x-ray showed minimal left ba silar atelectasis. Patient was seen today on 08/12/2024, she is now on the stepdown unit doing well, on room air, not in any distress, is at bedside. Patient continues to do well with incentive spirometry, achieving over 1500 cc, tubes have been removed. Patient is not in any distress, quite pleased with the progress over the last couple of days. Chest x-ray showed mostly postoperative changes with atelectasis in the area of the lingula lungs are clear otherwise. WBC count is 7.4 hemoglobin 7.8 basic metabolic profile is normal renal profile is normal Objective - Vital Signs Vital signs: Vital Signs Temp 98.1 F 08/12/24 11:24 Pulse 90 08/12/24 12:21 Resp 16 08/12/24 11:24 BP 120/59 08/12/24 11:24 Pulse Ox 97 08/12/24 11:24 FiO2 45 08/09/24 18:16 Intake & Output 08/11/24 08/12/24 08/12/24 18:59 06:59 18:59 Intake Total 0664.356 3567 240 Output Total 460 1245 430 Balance 865.294 -205 -190 Intake: IV 294 560 0.9 @ 50 170 540 Calcium Gluconate in NaCl 100 1 gm In Saline 1 100ml. bag @ 100 mls/hr IVPB ONCE ONE Rx#:[id number] Invasive Line 3 10 Invasive Line 4 10 pressure bags 24 Intake, IV Titration 31.294 Amount Insulin Regular 100 unit 8.636 In Sodium Chloride 0.9% 100 ml @ Per Protocol IV .Q0M [facility] Rx#:[id number] Insulin Regular 100 unit 22.658 In Sodium Chloride 0.9% 100 ml @ Per Protocol IV .Q0M [facility] Rx#:[id number] Oral 1000 480 240 Output: Chest Tube Drainage 220 135 30 Left Pleural 110 65 Mediastinal 110 70 30 Urine 240 1110 400 Other: Voiding Method Indwelling Catheter Bedside Commode # Voids 2 ABP, PAP, CO, CI - Last Documented Arterial Blood Pressure 104/51 Pulmonary Artery Pressure 24/17 Cardiac Output 4.7 Cardiac Index 2.3 - Exam GENERAL EXAM: 49-year-old not in any distress, on room air HEAD: Normocephalic. EYES: Within normal. NOSE: Clear with pink turbinates. THROAT: Clear. Normal mucous membranes NECK: No masses, no JVD. CHEST: Sternal dressing dry and intact. LUNGS: Equal air entry with no crackles, wheeze, rhonchi or dullness. CVS: S1 and S2 normal with no audible murmur, regular rhythm. ABDOMEN: No hepatosplenomegaly, no guarding or rigidity. SKIN: No rashes CENTRAL NERVOUS SYSTEM: Alert and oriented x 3 no gross focal deficit EXTREMITIES: Bilateral lower extremity Marcos wraps in place. SCDs in place. - Labs CBC & Chem 7: 08/12/24 07:19 08/12/24 07:19 Labs: Abnormal Lab Results - Last 24 Hours (Table) 08/11/24 08/11/24 08/11/24 Range/Units 15:05 17:06 20:08 RBC (3.80-5.40) m/uL Hgb (11.4-16.0) gm/dL Hct (34.0-46.0) % RDW (11.5-15.5) % Plt Count (150-450) k/uL Sodium (137-145) mmol/L Glucose (74-99) mg/dL POC Glucose (mg/dL) 197 H 154 H 173 H (70-110) mg/dL Calcium (8.4-10.2) mg/dL Total Bilirubin (0.2-1.3) mg/dL AST (14-36) U/L Total Protein (6.3-8.2) g/dL Albumin (3.5-5.0) g/dL 08/12/24 08/12/24 08/12/24 Range/Units 06:11 07:19 07:19 RBC 2.49 L (3.80-5.40) m/uL Hgb 7.8 L (11.4-16.0) gm/dL Hct 23.1 L (34.0-46.0) % RDW 17.1 H (11.5-15.5) % Plt Count 88 L (150-450) k/uL Sodium 135 L (137-145) mmol/L Glucose 169 H (74-99) mg/dL POC Glucose (mg/dL) 163 H (70-110) mg/dL Calcium 8.2 L (8.4-10.2) mg/dL Total Bilirubin 3.0 H (0.2-1.3) mg/dL AST 46 H (14-36) U/L Total Protein 5.3 L (6.3-8.2) g/dL Albumin 3.0 L (3.5-5.0) g/dL 08/12/24 Range/Units 11:23 RBC (3.80-5.40) m/uL Hgb (11.4-16.0) gm/dL Hct (34.0-46.0) % RDW (11.5-15.5) % Plt Count (150-450) k/uL Sodium (137-145) mmol/L Glucose (74-99) mg/dL POC Glucose (mg/dL) 162 H (70-110) mg/dL Calcium (8.4-10.2) mg/dL Total Bilirubin (0.2-1.3) mg/dL AST (14-36) U/L Total Protein (6.3-8.2) g/dL Albumin (3.5-5.0) g/dL Assessment and Plan Assessment: Impression: Coronary artery disease status post three-vessel off-pump coronary artery bypass grafting surgery, postoperative day #3 Thrombocytopenia History of hypertension Diet-controlled diabetes, hemoglobin A1c 5.8% Bipolar disorder, history of suicidal ideation Previous tobacco user, with recent cessation from vaping, FEV1 85% of predicted value Marijuana use History of EtOH abuse Recommendation: Continue Plavix beta-blockers aspirin and statins Continue incentive spirometry Ambulate Continue GI DVT prophylaxis Chest x-ray was reviewed the findings are not significant Possible discharge planning in the next 24 hours Will continue to follow Time with Patient: Less than 30
[2024-08-12 16:47] LABS: Glucose,Whole Blood 138 mg/dL (70-110)
[2024-08-12] MEDS: MAG HYDROX/AL HYDROX/SIMETH 30 ML CUP PO PRN (16:50)
--- NOTE | 2024-08-12 17:56 | P.PN ---
Subjective Progress Note Date: 08/12/24 Principal diagnosis: CAD CAD this is a 49-year-old female patient with a past medical history significant for coronary artery disease as well as hypertension and dyslipidemia and multiple comorbid conditions who underwent recently PCI of the ramus intermedius and left circumflex and she also was found to have disease involving the left main coronary artery. She was admitted to the hospital with chest discomfort and abnormal troponin. Subsequently she was seen by the cardiothoracic surgical team and she was evaluated for CABG where she underwent a earlier today CABG x 3 with PERSAUD to LAD and diagonal and SVG to the acute marginal branch of the RCA. August 09, 2022 The patient was seen and evaluated earlier today. She continues to be intubated and the plan is to extubate the raters later on today. She seems to be hemodynamically stable which she seems to be maintaining normal sinus mechanism. She is on dual antiplatelet therapy with aspirin and Plavix along with intermediate intensity statin I would consider increasing the dose of statin down the line. The physical examination is remarkable for distant heart sounds with regular rate and rhythm and diminished breathing sounds bilaterally August 10, 2024 The patient was seen and evaluated this morning which she was extubated last night around 7 PM. Overall she seems to be stable. She was experiencing yesterday PVCs and runs of nonsustained ventricular tachycardia and for that reason she was started on low-dose amiodarone IV. Hemoglobin is stable. Electrolytes are stable. Urine output is good as well. On examination she has regular rhythm with a systolic murmur at the right upper sternal border with clear breathing sounds bilaterally and no edema was noted in the lower extremities. August 11, 2024 The patient was seen and evaluated this morning. Overall she seems to be stable. The pressure appears to be soft. Urine output has been within normal limits. She received albumin yesterday. Otherwise she has been maintaining normal sinus mechanism. No more PVCs or nonsustained ventricular tachycardia. Blood work seems to be unremarkable except for low platelets. The physical examination is remarkable for soft blood pressure with regular rate and rhythm and systolic murmur at right upper sternal border with diminished breathing sounds bilaterally and mild bilateral lower extremities edema 08/12 Patient has been transferred out of the intensive care unit and seen today on the cardiac stepdown unit. Patient states that she had a good night no problems overnight. No chest pain or shortness of breath. Heart rate is 80, blood pressure 120/54, pulse ox 97% on room air. Repeat blood work reveals hemoglobin of 7.8, creatinine 0.84.The physical examination is remarkable for soft blood pressure with regular rate and rhythm and systolic murmur at right upper sternal border with diminished breathing sounds bilaterally and mild bilateral lower extremities edema Assessment CAD status post CABG as described above Prior percutaneous revascularization Cardiac arrhythmia with PVCs and runs of NSVT Plan Continue current medical regimen Continue monitor the kidney function and electrolytes and hemoglobin Continue monitoring urine output Follow-up with the patient Nurse practitioner note has been reviewed, I agree with documented findings and plan of care. Patient was seen and examined. Objective - Vital Signs Vital signs: Vital Signs Temp 98 F 08/12/24 08:24 Pulse 80 08/12/24 08:24 Resp 17 08/12/24 08:24 BP 120/54 08/12/24 08:24 Pulse Ox 97 08/12/24 08:24 FiO2 45 08/09/24 18:16 Intake & Output 08/11/24 08/12/24 08/12/24 18:59 06:59 18:59 Intake Total 6411.121 8942 240 Output Total 460 1245 130 Balance 865.294 -205 110 Intake: IV 294 560 0.9 @ 50 170 540 Calcium Gluconate in NaCl 100 1 gm In Saline 1 100ml. bag @ 100 mls/hr IVPB ONCE ONE Rx#:[id number] Invasive Line 3 10 Invasive Line 4 10 pressure bags 24 Intake, IV Titration 31.294 Amount Insulin Regular 100 unit 8.636 In Sodium Chloride 0.9% 100 ml @ Per Protocol IV .Q0M [facility] Rx#:[id number] Insulin Regular 100 unit 22.658 In Sodium Chloride 0.9% 100 ml @ Per Protocol IV .Q0M [facility] Rx#:[id number] Oral 1000 480 240 Output: Chest Tube Drainage 220 135 30 Left Pleural 110 65 Mediastinal 110 70 30 Urine 240 1110 100 Other: Voiding Method Indwelling Catheter Bedside Commode # Voids 2 ABP, PAP, CO, CI - Last Documented Arterial Blood Pressure 104/51 Pulmonary Artery Pressure Cardiac Output 4.7 Cardiac Index 2.3 - Labs CBC & Chem 7: 08/12/24 07:19 08/12/24 07:19 Labs: Abnormal Lab Results - Last 24 Hours (Table) 08/11/24 08/11/24 08/11/24 Range/Units 12:01 13:13 15:05 RBC (3.80-5.40) m/uL Hgb (11.4-16.0) gm/dL Hct (34.0-46.0) % RDW (11.5-15.5) % Plt Count (150-450) k/uL Sodium (137-145) mmol/L Glucose (74-99) mg/dL POC Glucose (mg/dL) 116 H 161 H 197 H (70-110) mg/dL Calcium (8.4-10.2) mg/dL Total Bilirubin (0.2-1.3) mg/dL AST (14-36) U/L Total Protein (6.3-8.2) g/dL Albumin (3.5-5.0) g/dL 08/11/24 08/11/24 08/12/24 Range/Units 17:06 20:08 06:11 RBC (3.80-5.40) m/uL Hgb (11.4-16.0) gm/dL Hct (34.0-46.0) % RDW (11.5-15.5) % Plt Count (150-450) k/uL Sodium (137-145) mmol/L Glucose (74-99) mg/dL POC Glucose (mg/dL) 154 H 173 H 163 H (70-110) mg/dL Calcium (8.4-10.2) mg/dL Total Bilirubin (0.2-1.3) mg/dL AST (14-36) U/L Total Protein (6.3-8.2) g/dL Albumin (3.5-5.0) g/dL 08/12/24 08/12/24 Range/Units 07:19 07:19 RBC 2.49 L (3.80-5.40) m/uL Hgb 7.8 L (11.4-16.0) gm/dL Hct 23.1 L (34.0-46.0) % RDW 17.1 H (11.5-15.5) % Plt Count 88 L (150-450) k/uL Sodium 135 L (137-145) mmol/L Glucose 169 H (74-99) mg/dL POC Glucose (mg/dL) (70-110) mg/dL Calcium 8.2 L (8.4-10.2) mg/dL Total Bilirubin 3.0 H (0.2-1.3) mg/dL AST 46 H (14-36) U/L Total Protein 5.3 L (6.3-8.2) g/dL Albumin 3.0 L (3.5-5.0) g/dL
[2024-08-12 20:38] LABS: Glucose,Whole Blood 181 mg/dL (70-110)
[2024-08-12] MEDS: PANTOPRAZOLE 40 MG/10 ML VIAL IVP SCH (20:57)
--- NOTE | 2024-08-13 05:59 | P.PN ---
Subjective Progress Note Date: 08/12/24 This is a pleasant 49 years old female who was recently discharged from the hospital on 08/01 after she had cardiac cath. Patient presents because of chest pain thought secondary to unstable angina with negative troponins. She underwent left heart catheterization 07/30/2024 showing CAD i with 20-30% distal left main stenosis, LAD 20-30% stenosis, ramus 90% stenosis, ostial circumflex 99% stenosis, status post PCI of the ramus, status post PTCA circumflex. She was started on aspirin and Brilinta. After discharge patient could not fill up her prescription because it was a long weekend holiday for . She presents this time because of chest pain that lasted about 15 minutes. Patient currently denies chest pain no dyspnea. No coughing No other /GI symptoms. Earlier she had nausea which is resolved now. No abdominal pain vomiting diarrhea. No headache dizziness weakness or numbness She smokes cigarettes and states she quit smoking today without specification. Nicotine patch offered but she declines. She drinks alcohol occasionally. No illicit drugs. Her record keeper is Dr. Ogden that she intends to follow-up in 1 week. She states she has no PCP but she intends to find 1. Hemodynamically stable Labs showing WBC 3.7 and platelet count 9.7. Liver enzymes mildly elevated. Troponin are elevated 0.4 and 0.5 and 0.5 D-dimer negative at 0.55 proBNP is 291 Amylase lipase negative Chest x-ray is negative for acute process EKG showing sinus bradycardia at [address]-T changes Upper extremity duplex of the forearm was negative. 08/04/2024 Patient is seen and evaluated in follow-up today currently undergoing stress test with cardiology following. Patient continues to report chest pain and chest discomfort with shortness of breath with exertion. Patient being followed by cardiothoracic surgery undergoing workup for possible CABG. CT chest is ordered and pending as well. Patient is afebrile with no worsening shortness of breath or palpitations noted. Patient denies nausea or vomiting and was currently n.p.o. for the stress test this morning. 08/05/2024 Patient is seen and evaluated in follow-up this morning currently undergoing preop workup with CT surgery and tentatively scheduled for off-pump intervention on 08/09/[address] Ortiz. Patient reports currently her chest pain is under control although has not been up and moving much other to the bathroom and back. Patient encouraged to increase activity with frequent walks and also continue with the use of the incentive spirometer and further testing per CT surgery. Patient reports she did have an episode of loose stool this morning and have ordered as needed Imodium. Patient is afebrile with no reports of chest pain, shortness of breath, or palpitations at this time. Will follow-up on serial labs and continue to monitor closely until surgery. Patient to continue on 3 S. per protocol 08/06/2024 Patient is seen in follow-up today awaiting off-pump intervention on 08/09/[address] Ortiz. Patient reports occasionally having s ome anxiety about the overall surgery although continues to wish to proceed with surgical intervention to improve quality of life. Patient reports she continues to have intermittent episodes of chest pain and heaviness. Patient denies any further diarrhea reported it was 1 isolated incident and tolerating diet. Patient remains on room air with no reports of shortness of breath. at the bedside with questions and concerns that were answered 08/07 Patient was seen and examined today. No issues overnight. Patient had just been overnight, patient was taken off IV heparin and started on Aggrastat. Chest pain currently resolved. Vital stable. No labs this morning. 08/08/2024--patient was seen and examined today. No further episodes of chest pain. Patient had some epistaxis earlier on Aggrastat, now resolved. Pulmonary following. Cardiac surgery following, plan for CABG tomorrow. Vital stable. Normal WBCs, hemoglobin 9.5, platelets 100. INR 1.2. Normal BUN/creatinine. 08/09/2024 Patient is currently in preop undergoing off-pump intervention with cardiothoracic surgery. Will await surgical report. 08/10/2024 Patient is seen in follow-up status post CABG with PERSAUD to the LAD and diagonal and SVG to the acute marginal branch of the RCA. Patient was successfully extubated currently maintained on 2 L of oxygen denies any extreme shortness of breath although does get winded with movement. Heart hugger is noted and patient continues with chest tubes along with swans catheter and indwelling Oliver catheter. Patient currently sitting up in the chair and will be starting physical therapy today. Patient had not eaten and feels slightly nauseated, continue with supportive care of antinausea medications and also will continue insulin drip for now and transition off the drip once she is tolerating more diet. 08/11/2024 Patient is seen in follow-up continues in the ICU currently awaiting to be transferred to [facility] and walking the unit doing relatively well. Patient continues with chest tubes and will have indwelling Oliver catheter along with IJ and Cordis catheter removed today. Follow-up chest x-ray ordered for a.m. Patient remains on insulin drip and tolerating diet will adjust to sliding scale and add long-acting as needed and discontinue the drip. Patient is afebrile reports some chest wall pain and is using the heart hugger but denies any sig nificant shortness of breath and is on room air. Recommend PT/OT therapy daily and working with CT surgery regarding discharge planning 08/12/2024 Patient is seen in follow-up today reports feeling tired and occasional shortness of breath with exertion although maintained on room air. Patient has had chest tubes removed and has been up and walking frequently. Plan is for possible discharge tomorrow to home and patient reports she has support in the home along with multiple family members that can assist. Patient has been reporting some indigestion and acid reflux and will add Protonix. Blood sugars have been monitored and will continue current regimen. Patient reports tolerating diet with not much of an appetite although is improving. Patient is voiding with no difficulties. Review of systems: Constitutional: reports of fatigue today, denies fever, or chills Cardiovascular: reports of continued chest wall pain at the chest tube site that was just removed, denies palpitations Respiratory: No reports of shortness of breath or cough other than with exertion GI: No reports of nausea, vomiting, reports no further diarrhea noted, reports some indigestion : No reports of dysuria or retention Neurovascular: reports of generalized weakness All medications have been reviewed Physical exam: GENERAL: The patient is alert and oriented x3, not in any acute distress although appears somewhat lethargic today. Well developed, well nourished. Morbidly obese HEENT: Pupils are round and equally reacting to light. EOMI. No scleral icterus. No conjunctival pallor. Normocephalic, atraumatic. No pharyngeal erythema. No thyromegaly. CARDIOVASCULAR: S1 and S2 present. No murmurs, rubs, or gallops. PULMONARY: Chest is clear to auscultation, no wheezing , no crackles. ABDOMEN: Soft, obese, nontender, nondistended, normoactive bowel sounds. No palpable organomegaly. MUSCULOSKELETAL: No joint swelling or deformity. EXTREMITIES: No cyanosis, clubbing, or pedal edema. Ecchymosis of the right forearm on the medial side with significant improvements NEUROLOGICAL: Gross neurological examination did not reveal any focal deficits. Diffusely weak SKIN: No rashes. no petechiae. Assessment: Chest pain with mildly elevated troponin and review of recent stent placement to ramus branch and PTCA circumflex. Related to her unstable angina. Coronary artery disease status post off-pump CABG on 08/09/2024 Nonadherence to therapy because it was holiday and she could not follow-up her prescription from the pharmacy Mild transaminitis Mild bicytopenia with leukopenia and thrombocytopenia Hypertension Diabetes Morbid obesity with a BMI of 41.1 Nicotine dependence with vaping Osteoarthritis History of kidney stones GI prophylaxis DVT prophylaxis Full code Plan: Continue with cardiology and CT surgery following. Patient is doing well postoperatively and has been up and walking frequently and discussing possible discharge planning in the next 24 hours Patient has had chest tubes removed and having some mild chest wall discomfort although reports to feeling somewhat improved Patient is tolerating diet and encouraged small frequent meals and continue with monitoring blood sugars before meals and at bedtime with sliding scale Provide resources for outpatient follow-up to establish with a primary care provider. Patient reports she was a patient of Dr. Marin previously although he relocated and difficult due to social issues and barriers with only having [address] education [address] instructor in the home, patient is unable to make it to her appointments. Continue to encourage complete smoking and vaping cessation Encouraged continuing to use the heart hugger along with incentive spirometer at least 10 times every hour while awake. Encouraged frequent walking in the halls and patient reports has been walking at least 3 times daily. We will continue to follow along with CT surgery during hospitalization. Anticipate possible discharge planning in the next 24 to 48 hours. Patient will be going home with spouse on discharge. The impression and plan of care has been dictated by Jessica Rendon, Nurse Practitioner as directed. Dr. Heriberto MD I have performed a history and examination and MDM of this patient, discussed the same with the dictator, and agree with the dictator's assessment and plan as written ,documented as a scribe. Based on total visit time, I have performed more than 50% of the visit. Currently undergoing stress test with cardiology following. Objective - Vital Signs Vital signs: Vital Signs Temp 98.4 F 08/13/24 04:00 Pulse 92 08/13/24 04:00 Resp 17 08/13/24 04:00 BP 101/53 08/13/24 04:00 Pulse Ox 95 08/13/24 04:00 FiO2 45 08/09/24 18:16 Intake & Output 08/12/24 08/12/24 08/13/24 06:59 18:59 06:59 Intake Total 1040 240 500 Output Total 1245 430 850 Balance -205 -190 -350 Weight 108.7 kg Intake: IV 560 20 0.9 @ 50 540 Invasive Line 3 10 Invasive Line 4 10 20 Oral 480 240 480 Output: Chest Tube Drainage 135 30 Left Pleural 65 Mediastinal 70 30 Urine 1110 400 850 Other: Voiding Method Bedside Commode Bedside Commode # Voids 2 6 ABP, PAP, CO, CI - Last Documented Arterial Blood Pressure 104/51 Pulmonary Artery Pressure Cardiac Output 4.7 Cardiac Index 2.3 - Labs CBC & Chem 7: 08/12/24 07:19 08/12/24 07:19 Labs: Abnormal Lab Results - Last 24 Hours (Table) 08/12/24 08/12/24 08/12/24 Range/Units 06:11 07:19 07:19 RBC 2.49 L (3.80-5.40) m/uL Hgb 7.8 L (11.4-16.0) gm/dL Hct 23.1 L (34.0-46.0) % RDW 17.1 H (11.5-15.5) % Plt Count 88 L (150-450) k/uL Sodium 135 L (137-145) mmol/L Glucose 169 H (74-99) mg/dL POC Glucose (mg/dL) 163 H (70-110) mg/dL Calcium 8.2 L (8.4-10.2) mg/dL Total Bilirubin 3.0 H (0.2-1.3) mg/dL AST 46 H (14-36) U/L Total Protein 5.3 L (6.3-8.2) g/dL Albumin 3.0 L (3.5-5.0) g/dL 08/12/24 08/12/24 08/12/24 Range/Units 11:23 16:45 20:36 RBC (3.80-5.40) m/uL Hgb (11.4-16.0) gm/dL Hct (34.0-46.0) % RDW (11.5-15.5) % Plt Count (150-450) k/uL Sodium (137-145) mmol/L Glucose (74-99) mg/dL POC Glucose (mg/dL) 162 H 138 H 181 H (70-110) mg/dL Calcium (8.4-10.2) mg/dL Total Bilirubin (0.2-1.3) mg/dL AST (14-36) U/L Total Protein (6.3-8.2) g/dL Albumin (3.5-5.0) g/dL
[2024-08-13 06:09] LABS: Glucose,Whole Blood 163 mg/dL (70-110)
[2024-08-13 07:26] LABS: ALT 26 U/L (4-34); AST 51 U/L (14-36); African American GFR (CKD) >90 (>60 ml/min/1.73 sqM); Albumin 2.9 g/dL (3.5-5.0); Alkaline Phosphatase 77 U/L (38-126); Anion Gap 6 mmol/L; Blood Urea Nitrogen 14 mg/dL (7-17); Calcium 7.9 mg/dL (8.4-10.2); Carbon Dioxide 23 mmol/L (22-30); Chloride 104 mmol/L (98-107); Glucose 146 mg/dL (74-99); Magnesium 1.7 mg/dL (1.6-2.3); Non-African American GFR(CKD) >90 (>60 ml/min/1.73 sqM); Sodium 133 mmol/L (137-145); Total Bilirubin 2.9 mg/dL (0.2-1.3); Total Protein 5.5 g/dL (6.3-8.2)
--- NOTE | 2024-08-13 07:49 | XR ---
EXAMINATION TYPE: XR chest 2V DATE OF EXAM: 08/13/2024 COMPARISON: 08/12/2024 HISTORY: Status post CABG TECHNIQUE: Frontal and lateral views of the chest are obtained. FINDINGS: As the operative changes of CABG. Left-sided chest tube has been. No sizable pneumothoraces present. Small pleural effusions and scattered pleural-parenchymal change noted. The cardiac silhouette size i s within normal limits. The osseous structures are grossly intact. IMPRESSION: 1. Operative changes of CABG.
[2024-08-13 07:57] LABS: Anisocytosis Slight; HCT 23.9 % (34.0-46.0); HGB 8.1 gm/dL (11.4-16.0); Hypochromasia Slight; MCH 31.5 pg (25.0-35.0); MCHC 33.7 g/dL (31.0-37.0); MCV 93.6 fL (80.0-100.0); Mean Platelet Volume 10.6; Platelet Count 114 k/uL (150-450); Poikilocytosis Slight; RBC 2.56 m/uL (3.80-5.40); RDW 17.1 % (11.5-15.5)
[2024-08-13 10:34] VITALS: RESP 20
[2024-08-13 11:26] VITALS: BMI 42.4
[2024-08-13 11:26] LABS: Glucose,Whole Blood 162 mg/dL (70-110)
[2024-08-13 11:47] VITALS: BP 105/71; PULSE 82; TEMP 98.5
[2024-08-13] MEDS: MAGNESIUM HYDROXIDE 2,400 MG/30 ML CUP PO PRN (12:25)
--- NOTE | 2024-08-13 12:54 | P.PN ---
Subjective Progress Note Date: 08/13/24 Patient is a 49-year-old female with past medical history significant for coronary artery disease with previous PCI/stenting, hypertension, hyperlipidemia, diet-controlled diabetes, previous tobacco dependence, chronic marijuana use. Not currently following with a PCP. Patient was recently hospitalized 07/29/2024 with unstable angina. The following day, underwent heart catheterization on 07/30/2024, multivessel coronary artery disease was noted. There was a stent placed to the ramus intermedius at this time. Inability, to stent the left circumflex artery. Transthoracic echocardiogram estimates left ventricular systolic function 55 to 60%, as well as, mild mitral and tricuspid regurgitation. Patient was discharged home on August. Returned to the emergency department the following day with severe substernal chest pain that occurred while watching TV. Chest pain radiated to left arm. Lasted approximately 10 minutes. Associated symptoms including shortness of breath, nausea, diaphoresis. Her did drive her to the emergency room. Patient brought back to [facility] on 08/03/2024 multivessel coronary artery disease again noted including 40 to 50% left main stenosis, 20 to 30% LAD stenosis, patent stent to the ramus, and 80% dominant left circumflex stenosis. A cardiothoracic surgical consult was initiated. We are being asked to see this patient in pulmonary consultation in preparation for preoperative CABG. Chest CT done this admission did not show any acute pulmonary processes. Patient does have a smoking history approximately 1 pack/day smoker for 20 years. Quit smoking cigarettes 3 years ago and started vaping. Also smokes marijuana daily.. No diagnosed COPD, asthma, or other pre-existing pulmonary conditions. A bedside spirometry was performed, her FEV1 was reportedly 85% of predicted. Patient is currently sitting up in the bedside recliner, on room air, in no acute respiratory distress. SpO2 is 96%. No current chest pain. Most recent CBC from this morning: WBC count 5, hemoglobin 9.9, hematocrit 29.2, platelets 101,000. Most recent CMP from 08/03/2024: Sodium 137, potassium 4.4, chloride 110, serum bicarb 25, BUN 11, creatinine 0.79, glucose 139. LFTs mildly elevated. Serial troponins 0.045, 0.05, and 0.054 respectively. NT proBNP 291. STS score is being calculated. 08/06/2024, patient is being seen for a follow-up. The patient is doing well. No specific complaints. The the patient remains on IV heparin. She is free of any chest pain for now. She did have an episode of chest pain yesterday.. No cardiac arrhythmias. No hemodynamic instability. Respiratory status is also stable. The patient has no specific complaints. Blood work from today shows a white cell count of 5.6, hemoglobin 9.8 which is stable compared to yesterday and a platelet count of 117, stable. BUN is 13 with a creatinine of 0.8 and sodium levels at 136. LFTs were noted, the numbers are improving. UA is negative. On 08/07/2024, the patient is doing well. No specific complaints. Overnight, she had some vague chest pain. Based on that, the patient was taken off IV heparin and patient was started on Aggrastat. She is free of chest pain for now. Hemodynamically stable. Remains on metoprolol 50 mg twice daily. Remains in aspirin. Labs from today are still pending. Room air oxygen. No other new complaints. On 08/08/2024, the patient is free of any chest pain. The patient encountered some epistaxis while being on Aggrastat. This will be continued till midnight today and subsequent this will be stopped as the patient is getting ready for bypass surgery tomorrow. The white cell count is 4.5 with a hemoglobin 9.5 and a platelet count of 100. Sodium is at 137, potassium is at 3.9, BUN is 18 with a creatinine of 0.7. LFTs are also stable. No other significant events overnight. The patient is clinically and hemodynamically stable. The patient is seen today August 09, 2024 in follow-up in the intensive care unit. Status post off-pump coronary artery bypass grafting x 3 with sequential PERSAUD to the diagonal and LAD, saphenous vein graft to the obtuse marginal branch of the RCA. Left atrial appendage clipping. Postoperative day #0. She is intubated on the mechanical ventilator and assist-control mode at a rate of 14, tidal volume 400, FiO2 100% and a PEEP of 5. Arterial blood gases revealed a PaO2 of 420, pCO2 45 and a pH of 7.33. She is currently on Cleviprex at 3 mg/hr. Insulin drip at 2 units an hour. Nitroglycerin drip at 5 mcg/min. Propofol at 35 mcg/kg/min. Normal saline at 50 mL/h. She has a mediastinal and left pleural chest tubes in place. Cardiac output 5.7. Cardiac index 2.8. PA pressures 41/11. CVP of 17. Chest x-ray shows some mild pulmonary edema. White count 4.4. Hemoglobin 7.9. Platelets 74,000. INR 1.5. Sodium 137. Potassium 4.1. Bicarb 23. BUN 11. Creatinine 0.71. Glucose 127. Ionized calcium 4.4. Magnesium 1.3. AST 37. ALT 22. She has been initiated on bronchodilators. Anticoagulated with Arixtra. The patient is seen today August 13, 2024 in follow-up on the selective care unit. She is currently sitting up in a chair at the bedside. Awake and alert in no acute distress. She has been afebrile. Hemodynamically stable. Continues to work well with the incentive spirometer. Chest x-ray reveals no sizable pneumothoraces. Small pleural effusions. 8.0. Hemoglobin 8.1. Platelets 114. Sodium 133. Potassium 4.0. Bicarb 23. BUN 14. Creatinine 0.75. Glucose 146. She is continued on bronchodilators. Continued on Arixtra. Objective - Vital Signs Vital signs: Vital Signs Temp 98.5 F 08/13/24 11:46 Pulse 82 08/13/24 11:46 Resp 20 08/13/24 11:46 BP 105/71 08/13/24 11:46 Pulse Ox 97 08/13/24 11:46 FiO2 45 08/09/24 18:16 Intake & Output 08/12/24 08/13/24 08/13/24 18:59 06:59 18:59 Intake Total 240 500 240 Output Total 430 850 100 Balance -190 -350 140 Weight 108.7 kg 108.7 kg Intake: IV 20 Invasive Line 4 20 Oral 240 480 240 Output: Chest Tube Drainage 30 Mediastinal 30 Urine 400 850 100 Other: Voiding Method Bedside Commode # Voids 6 ABP, PAP, CO, CI - Last Documented Arterial Blood Pressure 104/51 Pulmonary Artery Pressure 24/17 Cardiac Output 4.7 Cardiac Index 2.3 - Exam GENERAL EXAM: Wake, alert 49-year-old female up in a chair, on room air, in no apparent distress. HEAD: Normocephalic. EYES: Normal reaction of pupils, equal size. NOSE: Clear with pink turbinates. THROAT: No erythema or exudates. NECK: No masses, no JVD. CHEST: Sternal dressing dry and intact. Heart hugger in place. LUNGS: Equal air entry with no crackles, wheeze, rhonchi or dullness. CVS: S1 and S2 normal with no audible murmur, regular rhythm. ABDOMEN: No hepatosplenomegaly, no guarding or rigidity. SPINE: No scoliosis or deformity SKIN: No rashes CENTRAL NERVOUS SYSTEM: Sedated, tone is normal in all 4 extremities. EXTREMITIES: Significant peripheral edema. Peripheral pulses are intact. - Labs CBC & Chem 7: 08/13/24 06:14 08/13/24 06:14 Labs: Abnormal Lab Results - Last 24 Hours (Table) 08/12/24 08/12/24 08/13/24 Range/Units 16:45 20:36 06:08 RBC (3.80-5.40) m/uL Hgb (11.4-16.0) gm/dL Hct (34.0-46.0) % RDW (11.5-15.5) % Plt Count (150-450) k/uL Sodium (137-145) mmol/L Glucose (74-99) mg/dL POC Glucose (mg/dL) 138 H 181 H 163 H (70-110) mg/dL Calcium (8.4-10.2) mg/dL Total Bilirubin (0.2-1.3) mg/dL AST (14-36) U/L Total Protein (6.3-8.2) g/dL Albumin (3.5-5.0) g/dL 08/13/24 08/13/24 08/13/24 Range/Units 06:14 06:14 11:25 RBC 2.56 L (3.80-5.40) m/uL Hgb 8.1 L (11.4-16.0) gm/dL Hct 23.9 L (34.0-46.0) % RDW 17.1 H (11.5-15.5) % Plt Count 114 L (150-450) k/uL Sodium 133 L (137-145) mmol/L Glucose 146 H (74-99) mg/dL POC Glucose (mg/dL) 162 H (70-110) mg/dL Calcium 7.9 L (8.4-10.2) mg/dL Total Bilirubin 2.9 H (0.2-1.3) mg/dL AST 51 H (14-36) U/L Total Protein 5.5 L (6.3-8.2) g/dL Albumin 2.9 L (3.5-5.0) g/dL Assessment and Plan Assessment: Multivessel coronary artery disease, with recent PCI/stenting to the ramus intermedius on 07/30/2024. Inability to stent left circumflex artery during the procedure. On 08/09/2024 the patient underwent an off-pump coronary bypass grafting x 3 with a sequential PERSAUD to the diagonal and LAD, saphenous vein graft to the obtuse marginal branch of the RCA. Left atrial appendage clipping. Mechanical ventilator management, resolved Unstable angina Bicytopenia, normocytic/normochromic anemia and thrombocytopenia History of hypertension History of hyperlipidemia Morbid obesity, with a BMI of 41.1 kg/m Former tobacco dependence, [id number] history, quit smoking cigarettes 3 years ago, still vapes Chronic marijuana smoker Bilateral carotid artery stenosis, left ICA carotid artery stenosis greater than 70% and right ICA carotid stenosis less than 50%, clinically asymptomatic Plan: The patient was seen and evaluated Chest x-ray, labs and medications reviewed Stable and on room air Home once cleared by CT services I have personally seen and examined the patient, performed the documentation and the assessment and plan as written. Number of minutes spent on the visit: 10.
--- NOTE | 2024-08-13 13:47 | P.DS ---
Providers Date of admission: 08/02/24 19:56 Expected date of discharge: 08/13/24 Attending physician: Graciela Vasquez Consults: 08/02/24 19:50 Consult Physician Urgent Consulting Provider: Jared Ogden Consult Reason/Comments: NSTEMI Do you want consulting provider notified?: Already Contacted 08/03/24 13:03 Consult Physician Routine Consulting Provider: Phong Ortiz Consult Reason/Comments: cabg eval Do you want consulting provider notified?: Already Contacted 08/05/24 07:01 Consult Physician Routine Consulting Provider: Aden Dhillon Consult Reason/Comments: Pre op CABG Do you want consulting provider notified?: Yes Consult to Anesthesia Routine Consulting Provider: Anesthesia,Services Consult Reason/Comments: Cardiac Surgery Pre-Op 08/09/24 12:11 Consult Physician Routine Consulting Provider: Adolfo Louis Consult Reason/Comments: Medical management Do you want consulting provider notified?: Yes Primary care physician: Stated None Hospital Course: FINAL DIAGNOSIS: Coronary artery disease status post recent stent, status post three-vessel off- pump coronary artery bypass grafting surgery Chest pain secondary to above Preserved left ventricular systolic function, EF 55-60%, mild mitral valve regurgitation, tricuspid valve regurgitation Anemia Thrombocytopenia Left ICA carotid stenosis greater than 70% and right ICA carotid stenosis less than 50% on carotid duplex study Mild splenomegaly, intermediate 1 cm splenic lesion on preoperative CT scan of the chest History of hypertension Diet-controlled diabetes, hemoglobin A1c 5.8% Bipolar disorder, history of suicidal ideation Previous tobacco cessation with recent cessation from vaping, FEV1 85% of predicted value Marijuana use History of EtOH abuse Chronic transaminitis Postoperative acute blood loss anemia, expected given her preoperative anemia and thrombocytopenia and hemodilution PRINCIPAL PROCEDURE: 1. Off-pump coronary artery bypass grafting x 3 with sequential left internal mammary artery to diagonal coronary artery and left anterior descending coronary artery, saphenous vein graft to acute marginal branch of the right coronary artery. 2. Endovascular vein harvest of the greater saphenous vein from the left thigh. 3. Exclusion of the left atrial appendage with a 35 mm AtriCure clip. 4. Intraoperative transesophageal echocardiogram performed by anesthesia. HISTORY OF PRESENT ILLNESS: This is a 49-year-old patient who does not follow with a family doctor on an outpatient basis. She underwent a heart catheterization 07/30/24 with drug-eluting stent placed to the ramus intermedius, there was notation that Dr. Ogden was unable to get a stent past the ostium of the circumflex which did have a 99% blockage. At that time she also had a transthoracic echocardiogram demonstrating normal left ventricular systolic function with EF 55 to 60%, mild mitral and tricuspid regurgitation. She was discharged to home on August 01, 2024 and was feeling good for about 24 hours when she developed pain under her left axilla which spread medially. This time she also endorsed shortness of breath, nausea, cold sweats, and significant anxiety. She presented back to the emergency room at [facility] 08/02/24. Lab work revealed troponin 0.045 with peak 0.054, BNP 291, hemoglobin 12.4, platelet count 89,000, creatinine 0.78, magnesium 1.7, AST 77, ALT 61. Chest x- ray revealed no acute cardiopulmonary process. She was admitted for evaluation and treatment and brought back to the catheterization laboratory on August 03, 2024. The cardiac catheterization revealed complex anatomy including trifurcation and severe angulation of takeoff of the circumflex with 120 degree takeoff, severe calcification at the level of the distal main into the circumflex coronary artery. IVUS demonstrated significant left main disease as well as calcified plaque. There was concern for high risk of shifting plaque into the LAD or circumflex or dissection with intervention of the circumflex, therefore consultation was placed to Dr. Ortiz from cardiothoracic surgery for revascularization recommendations. The cardiothoracic surgeon met with the patient and her present at her bedside, the findings on the cardiac catheterization were discussed with the patient, treatment options were discussed including myocardial vascularization surgery. Risks and benefits of surgery including the STS risk or were discussed and knowing and understanding the risks the patient wished to proceed with the surgical option. It was discussed that Dr. Phong Ortiz from cardiothoracic surgery would be the surgeon performing the surgery. HOSPITAL COURSE: On August 09, 2024 the patient was taken to the preoperative area, and after obtaining consent he was prepared in usual fashion, and was subsequently taken to the operating room where Dr. Phong Ortiz performed an off-pump coronary artery bypass grafting surgery x 3 vessels with sequential left internal mammary artery to diagonal coronary artery and left anterior descending coronary artery, saphenous vein graft to acute marginal branch of the right coronary artery. Upon completion of the surgery the patient was transferred to the cardiovascular intensive care unit where she was recovered and monitored hemodynamically. She was subsequently extubated, all lines, tubes, and drips were discontinued when appropriate, and transfer orders were placed to the third floor cardiac stepdown unit for further monitoring and rehabilitation. Her oxygen was titrated down, she continued to work with physical and occupational therapy, she was tolerating an oral diet, and her pain was controlled. The patient is being discharged home on postoperative day #4 with [facility]. She received written and verbal instruction regarding his medications, activity restrictions, signs and symptoms requiring physician notification, and follow-up appointments. Plan - Discharge Summary Discharge Rx Participant: Yes New Discharge Prescriptions: New Atorvastatin [Lipitor] 40 mg PO DAILY #30 tab Metoprolol Tartrate [Lopressor] 25 mg PO BID #60 tab Clopidogrel [Plavix] 75 mg PO DAILY #30 tab Pantoprazole [Protonix] 40 mg PO DAILY #30 tab Acetaminophen Tab [Tylenol] 1,000 mg PO Q6HR PRN tab PRN Reason: Fever And/ Or Mild Pain (1-3) Continue Aspirin 81 mg PO DAILY tab Discontinued Ticagrelor [Brilinta] 90 mg PO BID 30 Days #60 tab Atorvastatin [Lipitor] 80 mg PO HS 30 Days #30 tab Metoprolol Tartrate [Lopressor] 25 mg PO BID 30 Days #60 tab Nitroglycerin Sl Tabs [Nitrostat] 0.4 mg SUBLINGUAL Q5M PRN 30 Days #20 tab PRN Reason: Chest Pain Discharge Medication List Aspirin 81 mg PO DAILY tab 08/01/24 [Rx] Acetaminophen Tab [Tylenol] 1,000 mg PO Q6HR PRN tab 08/13/24 [Rx] Atorvastatin [Lipitor] 40 mg PO DAILY #30 tab 08/13/24 [Rx] Clopidogrel [Plavix] 75 mg PO DAILY #30 tab 08/13/24 [Rx] Metoprolol Tartrate [Lopressor] 25 mg PO BID #60 tab 08/13/24 [Rx] Pantoprazole [Protonix] 40 mg PO DAILY #30 tab 08/13/24 [Rx] Follow up Appointment(s)/Referral(s): Rajiv Julio MD [STAFF PHYSICIAN] - 08/27/24 9:45 am [facility] [NON-STAFF] - Jared Ogden DO [STAFF PHYSICIAN] - 1 Week None,Stated [Primary Care Provider] - 1-2 days Phong Ortiz MD [STAFF PHYSICIAN] - 3 Weeks (Estrella from our office will call you on Friday, August 16, 2024 with a follow-up appointment.) Katelin Moy NPC [Nurse Practitioner] - 1 Week (Estrella from our office will call you with a follow-up appointment on Friday, August 16, 2024, the follow-up appointment with Katelin will be at [address] [place] [address], [id number], phone number is [phone]) Ambulatory/Diagnostic Orders: Complete Blood Count w/diff [LAB.AMB] Time Frame: 08/16/24, Facility: [facility], Location: Laboratory [facility] Comprehensive Metabolic Panel [LAB.AMB] Time Frame: 08/16/24, Facility: [facility], Location: Laboratory Main [facility] Discharge Disposition: HOME WITH HOME HEALTH SERVICES
--- NOTE | 2024-08-13 13:50 | P.PN ---
Subjective Progress Note Date: 08/13/24 Principal diagnosis: CAD CAD this is a 49-year-old female patient with a past medical history significant for coronary artery disease as well as hypertension and dyslipidemia and multiple comorbid conditions who underwent recently PCI of the ramus intermedius and left circumflex and she also was found to have disease involving the left main coronary artery. She was admitted to the hospital with chest discomfort and abnormal troponin. Subsequently she was seen by the cardiothoracic surgical team and she was evaluated for CABG where she underwent a earlier today CABG x 3 with PERSAUD to LAD and diagonal and SVG to the acute marginal branch of the RCA. August 09, 2022 The patient was seen and evaluated earlier today. She continues to be intubated and the plan is to extubate the raters later on today. She seems to be hemodynamically stable which she seems to be maintaining normal sinus mechanism. She is on dual antiplatelet therapy with aspirin and Plavix along with intermediate intensity statin I would consider increasing the dose of statin down the line. The physical examination is remarkable for distant heart sounds with regular rate and rhythm and diminished breathing sounds bilaterally August 10, 2024 The patient was seen and evaluated this morning which she was extubated last night around 7 PM. Overall she seems to be stable. She was experiencing yesterday PVCs and runs of nonsustained ventricular tachycardia and for that reason she was started on low-dose amiodarone IV. Hemoglobin is stable. Electrolytes are stable. Urine output is good as well. On examination she has regular rhythm with a systolic murmur at the right upper sternal border with clear breathing sounds bilaterally and no edema was noted in the lower extremities. August 11, 2024 The patient was seen and evaluated this morning. Overall she seems to be stable. The pressure appears to be soft. Urine output has been within normal limits. She received albumin yesterday. Otherwise she has been maintaining normal sinus mechanism. No more PVCs or nonsustained ventricular tachycardia. Blood work seems to be unremarkable except for low platelets. The physical examination is remarkable for soft blood pressure with regular rate and rhythm and systolic murmur at right upper sternal border with diminished breathing sounds bilaterally and mild bilateral lower extremities edema 08/12 Patient has been transferred out of the intensive care unit and seen today on the cardiac stepdown unit. Patient states that she had a good night no problems overnight. No chest pain or shortness of breath. Heart rate is 80, blood pressure 120/54, pulse ox 97% on room air. Repeat blood work reveals hemoglobin of 7.8, creatinine 0.84.The physical examination is remarkable for soft blood pressure with regular rate and rhythm and systolic murmur at right upper sternal border with diminished breathing sounds bilaterally and mild bilateral lower extremities edema 08/13 Patient is scheduled for discharge home today. No complaints of chest pain no shortness of breath. Blood pressure 105/71, heart rate 82, pulse ox 97% on room air. Repeat blood work reveals hemoglobin 8.1. Creatinine 0.75. The physical examination is remarkable for soft blood pressure with regular rate and rhythm and systolic murmur at right upper sternal border with diminished breathing sounds bilaterally and mild bilateral lower extremities edema Assessment CAD status post CABG as described above Prior percutaneous revascularization Cardiac arrhythmia with PVCs and runs of NSVT Plan Continue current medical regimen Patient is cleared for discharge from cardiology May follow-up in the office in 1 to 2 weeks. Nurse practitioner note has been reviewed, I agree with documented findings and plan of care. Patient was seen and examined. Objective - Vital Signs Vital signs: Vital Signs Temp 98.4 F 08/13/24 04:00 Pulse 92 08/13/24 04:00 Resp 17 08/13/24 04:00 BP 101/53 08/13/24 04:00 Pulse Ox 95 08/13/24 04:00 FiO2 45 08/09/24 18:16 Intake & Output 08/12/24 08/13/24 08/13/24 18:59 06:59 18:59 Intake Total 240 500 Output Total 430 850 Balance -190 -350 Weight 108.7 kg Intake: IV 20 Invasive Line 4 20 Oral 240 480 Output: Chest Tube Drainage 30 Mediastinal 30 Urine 400 850 Other: Voiding Method Bedside Commode # Voids 6 ABP, PAP, CO, CI - Last Documented Arterial Blood Pressure 104/51 Pulmonary Artery Pressure Cardiac Output 4.7 Cardiac Index 2.3 - Labs CBC & Chem 7: 08/13/24 06:14 08/13/24 06:14 Labs: Abnormal Lab Results - Last 24 Hours (Table) 08/12/24 08/12/24 08/12/24 Range/Units 11:23 16:45 20:36 RBC (3.80-5.40) m/uL Hgb (11.4-16.0) gm/dL Hct (34.0-46.0) % RDW (11.5-15.5) % Plt Count (150-450) k/uL Sodium (137-145) mmol/L Glucose (74-99) mg/dL POC Glucose (mg/dL) 162 H 138 H 181 H (70-110) mg/dL Calcium (8.4-10.2) mg/dL Total Bilirubin (0.2-1.3) mg/dL AST (14-36) U/L Total Protein (6.3-8.2) g/dL Albumin (3.5-5.0) g/dL 08/13/24 08/13/24 08/13/24 Range/Units 06:08 06:14 06:14 RBC 2.56 L (3.80-5.40) m/uL Hgb 8.1 L (11.4-16.0) gm/dL Hct 23.9 L (34.0-46.0) % RDW 17.1 H (11.5-15.5) % Plt Count 114 L (150-450) k/uL Sodium 133 L (137-145) mmol/L Glucose 146 H (74-99) mg/dL POC Glucose (mg/dL) 163 H (70-110) mg/dL Calcium 7.9 L (8.4-10.2) mg/dL Total Bilirubin 2.9 H (0.2-1.3) mg/dL AST 51 H (14-36) U/L Total Protein 5.5 L (6.3-8.2) g/dL Albumin 2.9 L (3.5-5.0) g/dL
--- NOTE | 2024-08-13 14:49 | P.PN ---
Subjective Progress Note Date: 08/13/24 This is a pleasant 49 years old female who was recently discharged from the hospital on 08/01 after she had cardiac cath. Patient presents because of chest pain thought secondary to unstable angina with negative troponins. She underwent left heart catheterization 07/30/2024 showing CAD i with 20-30% distal left main stenosis, LAD 20-30% stenosis, ramus 90% stenosis, ostial circumflex 99% stenosis, status post PCI of the ramus, status post PTCA circumflex. She was started on aspirin and Brilinta. After discharge patient could not fill up her prescription because it was a long weekend holiday for . She presents this time because of chest pain that lasted about 15 minutes. Patient currently denies chest pain no dyspnea. No coughing No other /GI symptoms. Earlier she had nausea which is resolved now. No abdominal pain vomiting diarrhea. No headache dizziness weakness or numbness She smokes cigarettes and states she quit smoking today without specification. Nicotine patch offered but she declines. She drinks alcohol occasionally. No illicit drugs. 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 Ogden that she intends to follow-up in 1 week. She states she has no PCP but she intends to find 1. Hemodynamically stable Labs showing WBC 3.7 and platelet count 9.7. Liver enzymes mildly elevated. Troponin are elevated 0.4 and 0.5 and 0.5 D-dimer negative at 0.55 proBNP is 291 Amylase lipase negative Chest x-ray is negative for acute process EKG showing sinus bradycardia at [address]-T changes Upper extremity duplex of the forearm was negative. 08/04/2024 Patient is seen and evaluated in follow-up today currently undergoing stress test with cardiology following. Patient continues to report chest pain and chest discomfort with shortness of breath with exertion. Patient being followed by cardiothoracic surgery undergoing workup for possible CABG. CT chest is ordered and pending as well. Patient is afebrile with no worsening shortness of breath or palpitations noted. Patient denies nausea or vomiting and was currently n.p.o. for the stress test this morning. 08/05/2024 Patient is seen and evaluated in follow-up this morning currently undergoing preop workup with CT surgery and tentatively scheduled for off-pump intervention on 08/09/[address] Ortiz. Patient reports currently her chest pain is under control although has not been up and moving much other to the bathroom and back. Patient encouraged to increase activity with frequent walks and also continue with the use of the incentive spirometer and further testing per CT surgery. Patient reports she did have an episode of loose stool this morning and have ordered as needed Imodium. Patient is afebrile with no reports of chest pain, shortness of breath, or palpitations at this time. Will follow-up on serial labs and continue to monitor closely until surgery. Patient to continue on 3 S. per protocol 08/06/2024 Patient is seen in follow-up today awaiting off-pump intervention on 08/09/[address] Ortiz. Patient reports occasionally having some anxiety about the overall surgery although continues to wish to proceed with surgical intervention to improve quality of life. Patient reports she continues to have intermittent episodes of chest pain and heaviness. Patient denies any further diarrhea reported it was 1 isolated incident and tolerating diet. Patient remains on room air with no reports of shortness of breath. at the bedside with questions and concerns that were answered 08/07 Patient was seen and examined today. No issues overnight. Patient had just been overnight, patient was taken off IV heparin and started on Aggrastat. Chest pain currently resolved. Vital stable. No labs this morning. 08/08/2024--patient was seen and examined today. No further episodes of chest pain. Patient had some epistaxis earlier on Aggrastat, now resolved. Pulmonary following. Cardiac surgery following, plan for CABG tomorrow. Vital stable. Normal WBCs, hemoglobin 9.5, platelets 100. INR 1.2. Normal BUN/creatinine. 08/09/2024 Patient is currently in preop undergoing off-pump intervention with cardiothoracic surgery. Will await surgical report. 08/10/2024 Patient is seen in follow-up status post CABG with PERSAUD to the LAD and diagonal and SVG to the acute marginal branch of the RCA. Patient was successfully ext ubated currently maintained on 2 L of oxygen denies any extreme shortness of breath although does get winded with movement. Heart hugger is noted and patient continues with chest tubes along with swans catheter and indwelling Oliver catheter. Patient currently sitting up in the chair and will be starting physical therapy today. Patient had not eaten and feels slightly nauseated, continue with supportive care of antinausea medications and also will continue insulin drip for now and transition off the drip once she is tolerating more diet. 08/11/2024 Patient is seen in follow-up continues in the ICU currently awaiting to be transferred to [facility] and walking the unit doing relatively well. Patient continues with chest tubes and will have indwelling Oliver catheter along with IJ and Cordis catheter removed today. Follow-up chest x-ray ordered for a.m. Patient remains on insulin drip and tolerating diet will adjust to sliding scale and add long-acting as needed and discontinue the drip. Patient is afebrile reports some chest wall pain and is using the heart hugger but denies any signif icant shortness of breath and is on room air. Recommend PT/OT therapy daily and working with CT surgery regarding discharge planning 08/12/2024 Patient is seen in follow-up today reports feeling tired and occasional shortness of breath with exertion although maintained on room air. Patient has had chest tubes removed and has been up and walking frequently. Plan is for possible discharge tomorrow to home and patient reports she has support in the home along with multiple family members that can assist. Patient has been reporting some indigestion and acid reflux and will add Protonix. Blood sugars have been monitored and will continue current regimen. Patient reports tolerating diet with not much of an appetite although is improving. Patient is voiding with no difficulties. 08/13/2024 Was cleared for discharge home by cardiothoracic services. Patient is evaluated today up ambulating around the room and getting out of the shower. She has no acute complaints at this time. Indigestion has significantly been improved. Patient be discharged home. Review of systems: Constitutional: reports of fatigue today, denies fever, or chills Cardiovascular: reports of continued chest wall pain at the chest tube site that was just removed, denies palpitations Respiratory: No reports of shortness of breath or cough other than with exertion GI: No reports of nausea, vomiting, reports no further diarrhea noted, reports some indigestion : No reports of dysuria or retention Neurovascular: reports of generalized weakness All medications have been reviewed Physical exam: GENERAL: The patient is alert and oriented x3, not in any acute distress although appears somewhat lethargic today. Well developed, well nourished. Morbidly obese HEENT: Pupils are round and equally reacting to light. EOMI. No scleral icterus. No conjunctival pallor. Normocephalic, atraumatic. No pharyngeal erythema. No thyromegaly. CARDIOVASCULAR: S1 and S2 present. No murmurs, rubs, or gallops. PULMONARY: Chest is clear to auscultation, no wheezing , no crackles. ABDOMEN: Soft, obese, nontender, nondistended, normoactive bowel sounds. No palpable organomegaly. MUSCULOSKELETAL: No joint swelling or deformity. EXTREMITIES: No cyanosis, clubbing, or pedal edema. Ecchymosis of the right forearm on the medial side with significant improvements NEUROLOGICAL: Gross neurological examination did not reveal any focal deficits. Diffusely weak SKIN: No rashes. no petechiae. Assessment: Chest pain with mildly elevated troponin and review of recent stent placement to ramus branch and PTCA circumflex. Related to her unstable angina. Coronary artery disease status post off-pump CABG on 08/09/2024 Nonadherence to therapy because it was holiday and she could not follow-up her prescription from the pharmacy Mild transaminitis Mild bicytopenia with leukopenia and thrombocytopenia Hypertension Diabetes Morbid obesity with a BMI of 41.1 Nicotine dependence with vaping Osteoarthritis History of kidney stones GI prophylaxis DVT prophylaxis Full code Plan: Continue with cardiology and CT surgery following. Patient is doing well postoperatively and has been up and walking frequently and discussing possible discharge planning in the next 24 hours Patient has had chest tubes removed and having some mild chest wall discomfort although reports to feeling somewhat improved Patient is tolerating diet and encouraged small frequent meals and continue with monitoring blood sugars before meals and at bedtime with sliding scale Provide resources for outpatient follow-up to establish with a primary care provider. Patient reports she was a patient of Dr. Marin previously although he relocated and difficult due to social issues and barriers with only having 1 goat driver in the home, patient is unable to make it to her appointments. Continue to encourage complete smoking and vaping cessation Encouraged continuing to use the heart hugger along with incentive spirometer at least 10 times every hour while awake. Encouraged frequent walking in the halls and patient reports has been walking at least 3 times daily. We will continue to follow along with CT surgery during hospitalization. Anticipate possible discharge planning in the next 24 to 48 hours. Patient will be going home with spouse on discharge. The impression and plan of care has been dictated by Sheree Baugh, Nurse Practitioner as directed. Dr. Heriberto MD I have performed a history and examination and MDM of this patient, discussed the same with the dictator, and agree with the dictator's assessment and plan as written ,documented as a scribe. Based on total visit time, I have performed more than 50% of the visit. Currently undergoing stress test with cardiology following. Objective - Vital Signs Vital signs: Vital Signs Temp 98.5 F 08/13/24 11:46 Pulse 82 08/13/24 11:46 Resp 20 08/13/24 11:46 BP 105/71 08/13/24 11:46 Pulse Ox 97 08/13/24 11:46 FiO2 45 08/09/24 18:16 Intake & Output 08/12/24 08/13/24 08/13/24 18:59 06:59 18:59 Intake Total 240 500 360 Output Total 430 850 100 Balance -190 -350 260 Weight 108.7 kg 108.7 kg Intake: IV 20 Invasive Line 4 20 Oral 240 480 360 Output: Chest Tube Drainage 30 Mediastinal 30 Urine 400 850 100 Other: Voiding Method Bedside Commode # Voids 6 ABP, PAP, CO, CI - Last Documented Arterial Blood Pressure 104/51 Pulmonary Artery Pressure 24/17 Cardiac Output 4.7 Cardiac Index 2.3 - Labs CBC & Chem 7: 08/13/24 06:14 08/13/24 06:14 Labs: Abnormal Lab Results - Last 24 Hours (Table) 08/12/24 08/12/24 08/13/24 Range/Units 16:45 20:36 06:08 RBC (3.80-5.40) m/uL Hgb (11.4-16.0) gm/dL Hct (34.0-46.0) % RDW (11.5-15.5) % Plt Count (150-450) k/uL Sodium (137-145) mmol/L Glucose (74-99) mg/dL POC Glucose (mg/dL) 138 H 181 H 163 H (70-110) mg/dL Calcium (8.4-10.2) mg/dL Total Bilirubin (0.2-1.3) mg/dL AST (14-36) U/L Total Protein (6.3-8.2) g/dL Albumin (3.5-5.0) g/dL 08/13/24 08/13/24 08/13/24 Range/Units 06:14 06:14 11:25 RBC 2.56 L (3.80-5.40) m/uL Hgb 8.1 L (11.4-16.0) gm/dL Hct 23.9 L (34.0-46.0) % RDW 17.1 H (11.5-15.5) % Plt Count 114 L (150-450) k/uL Sodium 133 L (137-145) mmol/L Glucose 146 H (74-99) mg/dL POC Glucose (mg/dL) 162 H (70-110) mg/dL Calcium 7.9 L (8.4-10.2) mg/dL Total Bilirubin 2.9 H (0.2-1.3) mg/dL AST 51 H (14-36) U/L Total Protein 5.5 L (6.3-8.2) g/dL Albumin 2.9 L (3.5-5.0) g/dL Assessment and Plan Time with Patient: Less than 30
--- NOTE | 2024-08-17 11:48 | P.ANPRN ---
Procedure Note - Anesthesia - Invasive Line Right Central Line Time Out Performed: Yes Date of Procedure: 08/09/24 Time of Procedure: 07:47 Location of Patient: PreOp Preparation: Sterile Prep, Sterile Dressing Central Line Location: Internal Jugular Ultrasound Used: No Purpose - Visualization and Identification of Vasculature: No Image Stored and Saved: No Narrative: Invasive line placement per sterile protocol utilized.
--- NOTE | 2024-08-17 11:49 | P.ANPRN ---
Procedure Note - Anesthesia - Invasive Line Right Emmett Tiffanie Time Out Performed: Yes Date of Procedure: 08/09/24 Time of Procedure: 07:58 Location of Patient: PreOp Preparation: Sterile Prep, Sterile Dressing Central Line Location: Internal Jugular Emmett Tiffanie Line Location: Internal Jugular Ultrasound Used: No Purpose - Visualization and Identification of Vasculature: No Image Stored and Saved: No Narrative: Invasive line placement per sterile protocol utilized.
== END 2024-08-13 14:32 | disposition home health service (06) | DRG 234 ==
LOC: EC 17:04 → 3SCARD 19:56 → 2SICU 08-09 07:07 → 3SCARD 08-11 18:35
PROVIDERS: ADMIT Thoracic Surgery (Cardiothoracic Vascular Surgery); ATTEND Internal Medicine
PROC: B2011ZZ Plain Radiography of Multiple Coronary Arteries using Low Osmolar Contrast (ICD-10-PCS; 2024-08-03)
PROC: B2051ZZ Plain Radiography of Left Heart using Low Osmolar Contrast (ICD-10-PCS; 2024-08-03)
PROC: B240ZZ3 Ultrasonography of Single Coronary Artery, Intravascular (ICD-10-PCS; 2024-08-03)
PROC: 4A023N7 Measurement of Cardiac Sampling and Pressure, Left Heart, Percutaneous Approach (ICD-10-PCS; 2024-08-03 17:40)
PROC: 0210093 Bypass Coronary Artery, One Artery from Coronary Artery with Autologous Venous Tissue, Open Approach (ICD-10-PCS; 2024-08-09)
PROC: 5A1221Z Performance of Cardiac Output, Continuous (ICD-10-PCS; 2024-08-09)
PROC: 02L70CK Occlusion of Left Atrial Appendage with Extraluminal Device, Open Approach (ICD-10-PCS; 2024-08-09)
PROC: B24BZZ4 Ultrasonography of Heart with Aorta, Transesophageal (ICD-10-PCS; 2024-08-09)
PROC: 02110Z9 Bypass Coronary Artery, Two Arteries from Left Internal Mammary, Open Approach (ICD-10-PCS; principal; 2024-08-09 08:00)
PROC: 06BQ4ZZ Excision of Left Saphenous Vein, Percutaneous Endoscopic Approach (ICD-10-PCS; 2024-08-09 08:00)
DX: I21.4 Non-ST elevation (NSTEMI) myocardial infarction (principal); D62 Acute posthemorrhagic anemia; Z68.41 Body mass index [BMI] 40.0-44.9, adult; I47.20 Ventricular tachycardia, unspecified; I25.110 Atherosclerotic heart disease of native coronary artery with unstable angina pectoris; F17.210 Nicotine dependence, cigarettes, uncomplicated; I10 Essential (primary) hypertension; I49.3 Ventricular premature depolarization; I65.23 Occlusion and stenosis of bilateral carotid arteries; K21.9 Gastro-esophageal reflux disease without esophagitis; I25.10 Atherosclerotic heart disease of native coronary artery without angina pectoris; D69.6 Thrombocytopenia, unspecified; E66.01 Morbid (severe) obesity due to excess calories; E11.9 Type 2 diabetes mellitus without complications; E78.5 Hyperlipidemia, unspecified; F41.9 Anxiety disorder, unspecified; F17.290 Nicotine dependence, other tobacco product, uncomplicated; M19.90 Unspecified osteoarthritis, unspecified site; F31.9 Bipolar disorder, unspecified; F12.90 Cannabis use, unspecified, uncomplicated; K76.0 Fatty (change of) liver, not elsewhere classified; Z91.51 Personal history of suicidal behavior; Z79.02 Long term (current) use of antithrombotics/antiplatelets; Z79.82 Long term (current) use of aspirin; Z79.899 Other long term (current) drug therapy; Z95.5 Presence of coronary angioplasty implant and graft
CPT/HCPCS: 36415; 71045; 71046; 71250; 76705; 80053; 80061; 80074; 81001; 81025; 82150; 82272; 82330; 82805; 83036; 83540; 83550; 83690; 83735; 83880; 84443; 84484; 85025; 85027; 85049; 85379; 85520; 85610; 85730; 86022; 86850; 86891; 86900; 86901; 86920; 87070; 87077; 87086; 87186; 92978; 93005; 93017; 93458; 93880; 93922; 93970; 94002; 94150; 94640; 96365; 96366; 96375; 99285

== ENCOUNTER 2024-08-14 15:36 | Emergency (ER) | payer BC ==
[2024-08-14 15:43] VITALS: RESP 20; TEMP 98.5
--- NOTE | 2024-08-14 15:52 | ED ---
Skin/Abscess/FB HPI - General Chief complaint: Skin/Abscess/Foreign Body Stated complaint: post-op complication Time Seen by Provider: 08/14/24 15:52 Source: patient, family, RN notes reviewed Mode of arrival: wheelchair Limitations: no limitations - History of Present Illness Initial comments: 49-year-old female presents emergency department company by her significant other with chief complaint of right breast abscess. Patient states that this afternoon she noticed there is a foul odor coming from her EXTR and denies that there was any open abscess to the right breast. There was a amount of purulence and drainage the time that she was having the symptoms. Patient does have a history of multiple breast abscesses and is followed with Dr. Concepcion with a abscess removal completed bilateral breast imaging 2023. Currently patient is denying fevers, chills, nausea, vomiting. Patient recently had CABG completed on 08/03/24. - Related Data Previous Rx's Medication Instructions Recorded Aspirin 81 mg PO DAILY tab 08/01/24 Acetaminophen Tab [Tylenol] 1,000 mg PO Q6HR PRN tab 08/13/24 Atorvastatin [Lipitor] 40 mg PO DAILY #30 tab 08/13/24 Clopidogrel [Plavix] 75 mg PO DAILY #30 tab 08/13/24 Metoprolol Tartrate [Lopressor] 25 mg PO BID #60 tab 08/13/24 Pantoprazole [Protonix] 40 mg PO DAILY #30 tab 08/13/24 Cephalexin [Keflex] 500 mg PO Q6HR #40 cap 08/14/24 Allergies Allergy/AdvReac Type Severity Reaction Status Date / Time capsaicin Allergy Rash/Hives/ Verified 08/09/24 06:12 Swelling Review of Systems ROS Statement: Those systems with pertinent positive or pertinent negative responses have been documented in the HPI. ROS Other: All systems not noted in ROS Statement are negative. Past Medical History Past Medical History: Coronary Artery Disease (CAD), Diabetes Mellitus, Hypertension, Osteoarthritis (OA), Skin Disorder Additional Past Medical History / Comment(s): KIDNEY STONES, diet controlled diabetic-no longer needs med, no longer needs BP med, seasonal allergies, abscess right breast, left breast hx. of abscess, yeast in skin fold in abd. History of Any Multi-Drug Resistant Organisms: None Reported Past Surgical History: Appendectomy, Breast Surgery, Cholecystectomy, Coronary Bypass/CABG, Heart Catheterization With Stent, Orthopedic Surgery, Tubal Ligation Additional Past Surgical History / Comment(s): carpal tunnel RIGHT WRIST, dental, abcess drainage left breast x2 (July 2016, March 2019, Aug 2019); RT breast I&D 05/22/21, 06/05/21; Left ankle surgery. Past Anesthesia/Blood Transfusion Reactions: No Reported Reaction, Family History of Problems w/ Anesthesia Additional Past Anesthesia/Blood Transfusion Reaction / Comment(s): No blood transfusion to date, mom stopped breathing during a surg. & had to be resuscitated Date of Last Stent Placement:: 07/30/24 Past Psychological History: Anxiety, Bipolar, Depression Smoking Status: Former smoker Past Alcohol Use History: None Reported Past Drug Use History: Marijuana - Past Family History Mother Family Medical History: Cancer Additional Family Medical History / Comment(s): CERVICAL CANCER Father Family Medical History: Unable to Obtain Additional Family Medical History / Comment(s): Patient did not know her father General Exam Limitations: no limitations General appearance: alert, in no apparent distress Head exam: Present: atraumatic, normocephalic, normal inspection Neck exam: Present: normal inspection. Absent: tenderness, meningismus, lymphadenopathy Respiratory exam: Present: normal lung sounds bilaterally. Absent: respiratory distress, wheezes, rales, rhonchi, stridor Cardiovascular Exam: Present: regular rate, normal rhythm, normal heart sounds, rubs. Absent: systolic murmur, diastolic murmur, gallop, clicks GI/Abdominal exam: Present: soft, normal bowel sounds. Absent: distended, tenderness, guarding, rebound, rigid Extremities exam: Present: normal inspection, full ROM, normal capillary refill, other (left thigh ecchymosis expanding over the mid and posterior leg, no pain to palpation, pulses intact and senstation). Absent: tenderness, pedal edema, joint swelling, calf tenderness Back exam: Present: normal inspection Skin exam: Present: warm, dry, intact, normal color, other (post surgical sternotomy incision no signs of dehinsence, erythema or purulence. right breast abscess, no erythema or active purulence, serous discharge from abscess on palpation). Absent: rash Course Vital Signs 08/14/24 15:41 Temperature 98.5 F Pulse Rate 92 Respiratory 20 Rate Blood Pressure 144/69 O2 Sat by Pulse 99 Oximetry Medical Decision Making - Medical Decision Making Was pt. sent in by a medical professional or institution (ANDREW Christy, COVER INSPECTOR, urgent care, hospital, or usp...) When possible be specific @ -No Did you speak to anyone other than the patient for history (EMS, parent, family, police, friend...)? What history was obtained from this source @ -No Did you review nursing and triage notes (agree or disagree)? Why? @ -I disagree with their triage notes. Patient presents for right abscess of the breast and this is not related to her recent CABG procedure that was completed on 08/03/2021. Were old charts reviewed (outside hosp., previous admission, EMS record, old EKG, old radiological studies, urgent care reports/EKG's, usp records)? Report findings @ -I reviewed the patient's previous emergency department visit note from 08/02/24 where she was admitted to with chest pain and underwent stress testing, that was failed, and subsequent CABG on 08/03/24 Differential Diagnosis (chest pain, altered mental status, abdominal pain women, abdominal pain men, vaginal bleeding, weakness, fever, dyspnea, syncope, headache, dizziness, GI bleed, back pain, seizure, CVA, palpatations, mental health, musculoskeletal)? @ -Cellulitis, abscess, postoperative complication, this list is not all inclusive EKG interpreted by me (3pts min.). @ -none X-rays interpreted by me (1pt min.). @ -None done CT interpreted by me (1pt min.). @ -None done U/S interpreted by me (1pt. min.). @ -None done What testing was considered but not performed or refused? (CT, X-rays, U/S, labs)? Why? @ -None What meds were considered but not given or refused? Why? @ -None Did you discuss the management of the patient with other professionals (professionals i.e. , ANDREW, COVER INSPECTOR, lab, RT, psych nurse, social media intern, enrollment processor, teacher, state highway police officer, case coordinator)? Give summary @ -No Was smoking cessation discussed for >3mins.? @ -No Was critical care preformed (if so, how long)? @ -No Were there social determinants of health that impacted care today? How? (Homelessness, low income, unemployed, alcoholism, drug addiction, transportation, low edu. Level, literacy, decrease access to med. care, alf, rehab)? @ -No Was there de-escalation of care discussed even if they declined (Discuss DNR or withdrawal of care, Hospice)? DNR status @ -No What co-morbidities impacted this encounter? (DM, HTN, Smoking, COPD, CAD, Cancer, CVA, ARF, Chemo, Hep., AIDS, mental health diagnosis, sleep apnea, morb id obesity)? @ -None Was patient admitted / discharged? Hospital course, mention meds given and rout e, prescriptions, significant lab abnormalities, going to OR and other pertinent info. @ -Discharged. 41-year-old female with breast abscess. Patient vitals within normal limits, afebrile. Patient has a abscess to the right breast located near the nipple at the 3 o'clock position. There is mild fluctuance to palpation with no surrounding erythema or active purulence. There is trace drainage upon pressure of the abscess. Patient states that there was a copious amount of purulent drainage earlier this afternoon. Patient arrived with pain medication pending laboratory results. CBC, CMP, lactate within normal limits. Patient does not expressing symptoms of systemic infection concerning for admission on IV antibiotics. Patient will be provided with first dose of antibiotics emergency department sent full course to the pharmacy has an appointment scheduled with cardiology on Friday and recommend that she schedules appointment with breast surgeon that she has visited with in the past for further evaluation of right-sided breast abscess. Questions answered at bedside and strict return parameters chucky the patient she is verbalized understanding. Discussed with Dr. Echeverria. Undiagnosed new problem with uncertain prognosis? @ -No Drug Therapy requiring intensive monitoring for toxicity (Heparin, Nitro, Insulin, Cardizem)? @ -No Were any procedures done? @ -No Diagnosis/symptom? @ -Right breast abscess Acute, or Chronic, or Acute on Chronic? @ -Acute Uncomplicated (without systemic symptoms) or Complicated (systemic symptoms)? @ -Uncomplicated Side effects of treatment? @ -No Exacerbation, Progression, or Severe Exacerbation? @ -No Poses a threat to life or bodily function? How? (Chest pain, [place], GA, pneumonia, PE, COPD, DKA, ARF, appy, cholecystitis, CVA, Diverticulitis, Homicidal, Suicidal, threat to staff... and all critical care pts) @ -No - Lab Data Result diagrams: 08/14/24 16:31 08/14/24 16:31 Lab Results 08/14/24 08/14/24 08/14/24 Range/Units 16:31 16:31 16:31 WBC 6.5 (3.8-10.6) k/uL RBC 2.84 L (3.80-5.40) m/uL Hgb 8.8 L (11.4-16.0) gm/dL Hct 25.9 L (34.0-46.0) % MCV 91.3 (80.0-100.0) fL MCH 30.9 (25.0-35.0) pg MCHC 33.9 (31.0-37.0) g/dL RDW 17.3 H (11.5-15.5) % Plt Count 155 (150-450) k/uL MPV 10.1 Neutrophils % 66 % Lymphocytes % 19 % Monocytes % 7 % Eosinophils % 6 % Basophils % 1 % Neutrophils # 4.3 (1.3-7.7) k/uL Lymphocytes # 1.2 (1.0-4.8) k/uL Monocytes # 0.5 (0-1.0) k/uL Eosinophils # 0.4 (0-0.7) k/uL Basophils # 0.0 (0-0.2) k/uL Hypochromasia Slight Poikilocytosis Moderate Anisocytosis Slight Sodium 134 L (137-145) mmol/L Potassium 3.6 (3.5-5.1) mmol/L Chloride 92 L (98-107) mmol/L Carbon Dioxide 26 (22-30) mmol/L Anion Gap 16 mmol/L BUN 16 (7-17) mg/dL Creatinine 0.69 (0.52-1.04) mg/dL Est GFR (CKD-EPI)AfAm >90 (>60 ml/min/1.73 sqM) Est GFR (CKD-EPI)NonAf >90 (>60 ml/min/1.73 sqM) Glucose 128 H (74-99) mg/dL Plasma Lactic Acid Tristin 1.1 (0.7-2.0) mmol/L Calcium 8.4 (8.4-10.2) mg/dL Total Bilirubin 3.2 H (0.2-1.3) mg/dL AST 58 H (14-36) U/L ALT 31 (4-34) U/L Alkaline Phosphatase 116 (38-126) U/L C-Reactive Protein 5.6 H (<1.0) mg/dL Total Protein 6.3 (6.3-8.2) g/dL Albumin 3.6 (3.5-5.0) g/dL Disposition Clinical Impression: Breast abscess Disposition: HOME SELF-CARE Condition: Good Instructions (If sedation given, give patient instructions): Abscess (ED) Additional Instructions: Return to the emergency department any new or worsening symptoms. Complete full course of antibiotics as prescribed. Recommend follow-up as scheduled with customer leader and schedule follow-up appointment with breast surgeon for further evaluation. Prescriptions: Cephalexin [Keflex] 500 mg PO Q6HR #40 cap Is patient prescribed a controlled substance at d/c from ED?: No Referrals: None,Stated [Primary Care Provider] - 1-2 days Time of Disposition: 17:23
[2024-08-14] MEDS: Acetaminophen-Codeine 300-30mg TAB PO STA (16:21)
[2024-08-14 16:45] LABS: Anisocytosis Slight; Basophils % (A) 1 %; Eosinophils # (A) 0.4 k/uL (0-0.7); Eosinophils % (A) 6 %; HCT 25.9 % (34.0-46.0); HGB 8.8 gm/dL (11.4-16.0); Hypochromasia Slight; Lymphocytes # (A) 1.2 k/uL (1.0-4.8); Lymphocytes % (A) 19 %; MCH 30.9 pg (25.0-35.0); MCHC 33.9 g/dL (31.0-37.0); MCV 91.3 fL (80.0-100.0); Mean Platelet Volume 10.1; Monocytes # (A) 0.5 k/uL (0-1.0); Monocytes % (A) 7 %; Neutrophils # (A) 4.3 k/uL (1.3-7.7); Neutrophils % (A) 66 %; Platelet Count 155 k/uL (150-450); Poikilocytosis Moderate; RBC 2.84 m/uL (3.80-5.40); RDW 17.3 % (11.5-15.5); WBC 6.5 k/uL (3.8-10.6)
[2024-08-14 17:01] LABS: ALT 31 U/L (4-34); AST 58 U/L (14-36); African American GFR (CKD) >90 (>60 ml/min/1.73 sqM); Albumin 3.6 g/dL (3.5-5.0); Alkaline Phosphatase 116 U/L (38-126); Blood Urea Nitrogen 16 mg/dL (7-17); C Reactive Protein 5.6 mg/dL (<1.0); Calcium 8.4 mg/dL (8.4-10.2); Carbon Dioxide 26 mmol/L (22-30); Chloride 92 mmol/L (98-107); Glucose 128 mg/dL (74-99); Non-African American GFR(CKD) >90 (>60 ml/min/1.73 sqM); Total Bilirubin 3.2 mg/dL (0.2-1.3); Total Protein 6.3 g/dL (6.3-8.2)
[2024-08-14 17:11] LABS: Anion Gap 16 mmol/L; Potassium 3.6 mmol/L (3.5-5.1); Sodium 134 mmol/L (137-145)
[2024-08-14] MEDS: cefTRIAXone IN SWFI 1,000 MG/10 ML SYRINGE IVP STA (18:16)
[2024-08-14 18:23] VITALS: BP 123/80; PULSE 70
== END 2024-08-14 18:27 | disposition home or self-care (01) ==
LOC: EC 15:36
CPT/HCPCS: 36415; 80053; 83605; 85025; 86140; 96374; 99283

== ENCOUNTER 2024-08-17 23:30 | Observation (INO) | payer BC ==
[2024-08-18 00:15] LABS: Anisocytosis Slight; Basophils % (A) 1 %; Eosinophils # (A) 0.6 k/uL (0-0.7); Eosinophils % (A) 9 %; HCT 26.8 % (34.0-46.0); HGB 8.7 gm/dL (11.4-16.0); Hypochromasia Marked; Lymphocytes % (A) 15 %; MCH 30.5 pg (25.0-35.0); MCHC 32.5 g/dL (31.0-37.0); MCV 93.6 fL (80.0-100.0); Monocytes # (A) 0.5 k/uL (0-1.0); Monocytes % (A) 7 %; Neutrophils # (A) 4.3 k/uL (1.3-7.7); Neutrophils % (A) 65 %; Platelet Count 158 k/uL (150-450); Poikilocytosis Moderate; RBC 2.86 m/uL (3.80-5.40); RDW 16.8 % (11.5-15.5); WBC 6.7 k/uL (3.8-10.6)
--- NOTE | 2024-08-18 00:16 | XR ---
EXAMINATION TYPE: XR chest 2V DATE OF EXAM: 08/18/2024 COMPARISON: Chest x-ray 5 days ago HISTORY: Difficulty in breathing. TECHNIQUE: Frontal and lateral views of the chest are obtained. FINDINGS: Overlying sternal wires and mediastinal clips are redemonstrated. Left atrial appendage cl ip again seen. Persistent mild cardiomegaly. More prominent small to moderate-sized bilateral pleur al effusions left greater than right and moderate central vascular congestion. The osseous structures are intact. IMPRESSION: Findings consistent with CHF exacerbation/fluid overload state are redemonstrated and mo re prominent versus most recent prior x-ray. [facility], , 08/18/2024 12:13 AM
--- NOTE | 2024-08-18 00:33 | ED ---
SOB HPI - General Chief Complaint: Shortness of Breath Stated Complaint: Difficulty Breathing Time Seen by Provider: 08/17/24 23:38 Source: patient Mode of arrival: EMS Limitations: no limitations - History of Present Illness Initial Comments: This patient is a 49-year-old woman who presents to have evaluation for shortness of breath. The patient notes that she had open heart surgery on August [address] Ortiz. She had initially done well and gone home. Over the past couple of days she has noted that she has become short of breath, especially if she lies flat. She is denying chest pain. No change in urination or bowel movements. She has not noted leg pain or swelling. MD Complaint: shortness of breath Onset/Timin -: days(s) Severity: moderate Severity scale (1-10): 0 Consistency: constant Improves With: nothing Worsens With: lying flat Known History Of: other (Recent CABG) Associated Symptoms: denies other symptoms Treatments Prior to Arrival: none - Related Data Home Oxygen Therapy: No Home Medications Medication Instructions Recorded Confirmed HYDROcodone/APAP 5-325MG [[place] 1 tab PO Q6HR 08/23/24 08/23/24 5-325] Omeprazole 20 mg PO DAILY 08/23/24 08/23/24 Previous Rx's Medication Instructions Recorded Aspirin 81 mg PO DAILY tab 08/01/24 Atorvastatin [Lipitor] 40 mg PO DAILY #30 tab 08/13/24 Clopidogrel [Plavix] 75 mg PO DAILY #30 tab 08/13/24 Metoprolol Tartrate [Lopressor] 25 mg PO BID #60 tab 08/13/24 Bumetanide [BUMEX] 1 mg PO DAILY #7 tab 08/19/24 Calcium Carbonate [Tums] 1,000 mg PO Q4HR PRN tab 08/19/24 Losartan [Cozaar] 12.5 mg PO DAILY #30 tab 08/19/24 Spironolactone [Aldactone] 12.5 mg PO DAILY #30 tab 08/19/24 methylPREDNISolone Dose Pack 4 mg PO DIRECTED #21 tab 08/24/24 [Medrol Dose Pack] Allergies Allergy/AdvReac Type Severity Reaction Status Date / Time capsaicin Allergy Rash/Hives/ Verified 08/23/24 20:41 Swelling Review of Systems ROS Statement: Those systems with pertinent positive or pertinent negative responses have been documented in the HPI. ROS Other: All systems not noted in ROS Statement are negative. Constitutional: Denies: fever, chills, weakness Respiratory: Reports: dyspnea. Denies: cough, wheezes, hemoptysis Cardiovascular: Reports: orthopnea. Denies: chest pain, palpitations, edema, syncope Gastrointestinal: Denies: abdominal pain, nausea, vomiting, diarrhea Genitourinary: Denies: dysuria, hematuria Musculoskeletal: Denies: back pain Skin: Denies: rash Neurological: Denies: headache, weakness, numbness Past Medical History Past Medical History: Coronary Artery Disease (CAD), Diabetes Mellitus, Hypertension, Osteoarthritis (OA), Skin Disorder Additional Past Medical History / Comment(s): KIDNEY STONES, diet controlled diabetic-no longer needs med, no longer needs BP med, seasonal allergies, abs cess right breast, left breast hx. of abscess, yeast in skin fold in abd. History of Any Multi-Drug Resistant Organisms: None Reported Past Surgical History: Appendectomy, Breast Surgery, Cholecystectomy, Coronary Bypass/CABG, Heart Catheterization With Stent, Orthopedic Surgery, Tubal Ligation Additional Past Surgical History / Comment(s): carpal tunnel RIGHT WRIST, dental, abcess drainage left breast x2 (July 2016, March 2019, Aug 2019); RT breast I&D 05/22/21, 06/05/21; Left ankle surgery. Past Anesthesia/Blood Transfusion Reactions: No Reported Reaction, Family History of Problems w/ Anesthesia Additional Past Anesthesia/Blood Transfusion Reaction / Comment(s): No blood transfusion to date, mom stopped breathing during a surg. & had to be resuscitated Date of Last Stent Placement:: 07/30/24 Past Psychological History: Anxiety, Bipolar, Depression Smoking Status: Former smoker Past Alcohol Use History: None Reported Past Drug Use History: Marijuana - Past Family History Mother Family Medical History: Cancer Additional Family Medical History / Comment(s): CERVICAL CANCER Father Family Medical History: Unable to Obtain Additional Family Medical History / Comment(s): Patient did not know her father General Exam Limitations: no limitations General appearance: alert, in no apparent distress Head exam: Present: atraumatic, normocephalic Eye exam: Present: normal appearance. Absent: scleral icterus, conjunctival injection ENT exam: Present: normal oropharynx Neck exam: Present: normal inspection Respiratory exam: Present: respiratory distress (Mild tachypnea), rales (Bilateral bases). Absent: wheezes, rhonchi, stridor, accessory muscle use, decreased breath sounds Cardiovascular Exam: Present: regular rate, normal rhythm, normal heart sounds. Absent: systolic murmur, diastolic murmur, rubs, gallop GI/Abdominal exam: Present: soft. Absent: distended, tenderness, guarding, rebound, rigid, mass Extremities exam: Present: normal inspection, normal capillary refill, other (Ecchymosis left leg overlying vein harvest). Absent: pedal edema, calf tenderness Back exam: Present: normal inspection. Absent: CVA tenderness (R), CVA tenderness (L) Neurological exam: Present: alert Skin exam: Present: warm, dry, intact, petechiae (Ecchymosis as above). Absent: rash Course Vital Signs 08/17/24 08/17/24 08/18/24 23:31 23:42 00:36 Temperature 100.1 F H Pulse Rate 99 93 Respiratory 26 H 26 H 18 Rate Blood Pressure 125/84 137/61 O2 Sat by Pulse 93 L 97 Oximetry 08/18/24 08/18/24 08/18/24 02:07 02:15 03:45 Temperature 98.6 F Pulse Rate 100 95 Respiratory 20 18 Rate Blood Pressure 143/72 145/65 O2 Sat by Pulse 97 96 Oximetry 08/18/24 08/18/24 08/18/24 06:18 08:11 08:29 Temperature Pulse Rate 98 103 H Respiratory 18 14 Rate Blood Pressure 121/84 121/84 O2 Sat by Pulse 98 98 100 Oximetry 08/18/24 08/18/24 08/18/24 08:30 08:40 09:00 Temperature Pulse Rate 105 H 89 78 Respiratory 53 H 15 21 Rate Blood Pressure 121/84 121/84 121/84 O2 Sat by Pulse 98 95 96 Oximetry 08/18/24 08/18/24 08/18/24 09:10 09:20 09:30 Temperature Pulse Rate 78 79 Respiratory 19 33 H 18 Rate Blood Pressure 121/84 121/84 121/84 O2 Sat by Pulse 96 94 L Oximetry 08/18/24 08/18/24 08/18/24 09:40 09:50 10:00 Temperature Pulse Rate 80 80 82 Respiratory 31 H 21 31 H Rate Blood Pressure 121/84 121/84 121/84 O2 Sat by Pulse Oximetry 08/18/24 08/18/24 08/18/24 10:10 10:20 10:30 Temperature Pulse Rate 76 77 81 Respiratory 21 19 27 H Rate Blood Pressure 121/84 121/84 121/84 O2 Sat by Pulse Oximetry 08/18/24 08/18/24 08/18/24 10:40 10:50 11:00 Temperature Pulse Rate 78 77 81 Respiratory 18 18 18 Rate Blood Pressure 121/84 121/84 121/84 O2 Sat by Pulse Oximetry 08/18/24 08/18/24 08/18/24 11:10 11:20 11:30 Temperature Pulse Rate 81 80 81 Respiratory 15 14 26 H Rate Blood Pressure 121/84 121/84 121/84 O2 Sat by Pulse Oximetry 08/18/24 08/18/24 08/18/24 11:40 11:50 11:58 Temperature Pulse Rate 79 80 80 Respiratory 11 L 10 L 17 Rate Blood Pressure 121/84 121/84 121/84 O2 Sat by Pulse 93 L Oximetry 08/18/24 16:16 Temperature 99.3 F Pulse Rate 90 Respiratory 21 Rate Blood Pressure 97/55 O2 Sat by Pulse 97 Oximetry Medical Decision Making - Medical Decision Making The patient had chest x-ray that I interpreted to show cardiomegaly and congestion consistent with CHF exacerbation. Was pt. sent in by a medical professional or institution (ANDREW Christy, CLIENT SOLUTIONS SPECIALIST, urgent care, hospital, or retirement...) When possible be specific @ -[No] Did you speak to anyone other than the patient for history (EMS, parent, family, police, friend...)? What history was obtained from this source @ -[No] Did you review nursing and triage notes (agree or disagree)? Why? @ -[I reviewed and agree with nursing and triage notes] Were old charts reviewed (outside hosp., previous admission, EMS record, old EKG, old radiological studies, urgent care reports/EKG's, retirement records)? Report findings @ -[No old charts were reviewed] Differential Diagnosis (chest pain, altered mental status, abdominal pain women, abdominal pain men, vaginal bleeding, weakness, fever, dyspnea, syncope, headache, dizziness, GI bleed, back pain, seizure, CVA, palpatations, mental health, musculoskeletal)? @ -[Differential Dyspnea: Coronary syndrome, arrhythmia, tamponade, asthma, COPD, pulmonary embolism, pneumonia, pneumothorax, pulmonary effusion, anaphylaxis, diabetic ketoacidosis, flailed chest, pulmonary contusion, diaphragmatic rupture, anemia, neuromuscular, this is not meant to be an all-inclusive list. EKG interpreted by me (3pts min.). @ -[I interpreted as above] X-rays interpreted by me (1pt min.). @ -[I interpreted as above CT interpreted by me (1pt min.). @ -[None done] U/S interpreted by me (1pt. min.). @ -[None done] What testing was considered but not performed or refused? (CT, X-rays, U/S, labs)? Why? @ -[None] What meds were considered but not given or refused? Why? @ -[None] Did you discuss the management of the patient with other professionals (professionals i.e. , PA, CLIENT SOLUTIONS SPECIALIST, lab, RT, psych nurse, social services director, raimann machine operator, teacher, welfare officer, case sealer)? Give summary @ -[Case discussed with admitting physician and treatment recommendations are incorporated Was smoking cessation discussed for >3mins.? @ -[No] Was critical care preformed (if so, how long)? @ -[No] Were there social determinants of health that impacted care today? How? (Homelessness, low income, unemployed, alcoholism, drug addiction, transportation, low edu. Level, literacy, decrease access to med. care, longterm, rehab)? @ -[No] Was there de-escalation of care discussed even if they declined (Discuss DNR or withdrawal of care, Hospice)? DNR status @ -[No] What co-morbidities impacted this encounter? (DM, HTN, Smoking, COPD, CAD, Cancer, CVA, ARF, Chemo, Hep., AIDS, mental health diagnosis, sleep apnea, morbid obesity)? @ -[Recent CABG Was patient admitted / discharged? Hospital course, mention meds given and route , prescriptions, significant lab abnormalities, going to OR and other pertinent info. @ -[Patient is 49-year-old woman recently discharged following open heart surgery. She does have exam findings and x-ray consistent with degree of congestive heart failure. The patient feeling better after starting treatment here. Case discussed with Dr. Ortiz who will admit the patient to obs for some diuresis and reevaluation Undiagnosed new problem with uncertain prognosis? @ -[No] Drug Therapy requiring intensive monitoring for toxicity (Heparin, Nitro, Insulin, Cardizem)? @ -[No] Were any procedures done? @ -[No] Diagnosis/symptom? @ -[Acute congestive heart failure Acute, or Chronic, or Acute on Chronic? @ -[Acute Uncomplicated (without systemic symptoms) or Complicated (systemic symptoms)? @ -[Uncomplicated Side effects of treatment? @ -[No] Exacerbation, Progression, or Severe Exacerbation? @ -[No] Poses a threat to life or bodily function? How? (Chest pain, [place], [place], pneumonia, PE, COPD, DKA, ARF, appy, cholecystitis, CVA, Diverticulitis, Homicidal, Suicidal, threat to staff... and all critical care pts) @ -[Low risk - Lab Data Result diagrams: 08/17/24 23:49 08/19/24 05:59 Lab Results 08/17/24 08/17/24 08/17/24 Range/Units 23:49 23:49 23:49 WBC 6.7 (3.8-10.6) k/uL RBC 2.86 L (3.80-5.40) m/uL Hgb 8.7 L (11.4-16.0) gm/dL Hct 26.8 L (34.0-46.0) % MCV 93.6 (80.0-100.0) fL MCH 30.5 (25.0-35.0) pg MCHC 32.5 (31.0-37.0) g/dL RDW 16.8 H (11.5-15.5) % Plt Count 158 (150-450) k/uL MPV 10.0 Neutrophils % 65 % Lymphocytes % 15 % Monocytes % 7 % Eosinophils % 9 % Basophils % 1 % Neutrophils # 4.3 (1.3-7.7) k/uL Lymphocytes # 1.0 (1.0-4.8) k/uL Monocytes # 0.5 (0-1.0) k/uL Eosinophils # 0.6 (0-0.7) k/uL Basophils # 0.0 (0-0.2) k/uL Hypochromasia Marked Poikilocytosis Moderate Anisocytosis Slight PT 12.7 H (10.0-12.5) sec INR 1.2 H (<1.2) APTT 26.9 (22.0-30.0) sec Sodium 137 (137-145) mmol/L Potassium 3.7 (3.5-5.1) mmol/L Chloride 103 (98-107) mmol/L Carbon Dioxide 27 (22-30) mmol/L Anion Gap 7 mmol/L BUN 12 (7-17) mg/dL Creatinine 0.67 (0.52-1.04) mg/dL Est GFR (CKD-EPI)AfAm >90 (>60 ml/min/1.73 sqM) Est GFR (CKD-EPI)NonAf >90 (>60 ml/min/1.73 sqM) Glucose 147 H (74-99) mg/dL Plasma Lactic Acid Tristin (0.7-2.0) mmol/L Calcium 8.1 L (8.4-10.2) mg/dL Total Bilirubin 3.1 H (0.2-1.3) mg/dL AST 46 H (14-36) U/L ALT 27 (4-34) U/L Alkaline Phosphatase 209 H (38-126) U/L Troponin I (0.000-0.034) ng/mL NT-Pro-B Natriuret Pep 1150 pg/mL Total Protein 6.1 L (6.3-8.2) g/dL Albumin 3.2 L (3.5-5.0) g/dL 08/17/24 08/17/24 08/18/24 Range/Units 23:49 23:49 03:40 WBC (3.8-10.6) k/uL RBC (3.80-5.40) m/uL Hgb (11.4-16.0) gm/dL Hct (34.0-46.0) % MCV (80.0-100.0) fL MCH (25.0-35.0) pg MCHC (31.0-37.0) g/dL RDW (11.5-15.5) % Plt Count (150-450) k/uL MPV Neutrophils % % Lymphocytes % % Monocytes % % Eosinophils % % Basophils % % Neutrophils # (1.3-7.7) k/uL Lymphocytes # (1.0-4.8) k/uL Monocytes # (0-1.0) k/uL Eosinophils # (0-0.7) k/uL Basophils # (0-0.2) k/uL Hypochromasia Poikilocytosis Anisocytosis PT (10.0-12.5) sec INR (<1.2) APTT (22.0-30.0) sec Sodium (137-145) mmol/L Potassium (3.5-5.1) mmol/L Chloride (98-107) mmol/L Carbon Dioxide (22-30) mmol/L Anion Gap mmol/L BUN (7-17) mg/dL Creatinine (0.52-1.04) mg/dL Est GFR (CKD-EPI)AfAm (>60 ml/min/1.73 sqM) Est GFR (CKD-EPI)NonAf (>60 ml/min/1.73 sqM) Glucose (74-99) mg/dL Plasma Lactic Acid Tristin 1.3 (0.7-2.0) mmol/L Calcium (8.4-10.2) mg/dL Total Bilirubin (0.2-1.3) mg/dL AST (14-36) U/L ALT (4-34) U/L Alkaline Phosphatase (38-126) U/L Troponin I 0.178 H* 0.174 H* (0.000-0.034) ng/mL NT-Pro-B Natriuret Pep pg/mL Total Protein (6.3-8.2) g/dL Albumin (3.5-5.0) g/dL - EKG Data -: EKG Interpreted by Tn EKG shows normal: sinus rhythm, axis (Normal), intervals (Normal), ST-T waves (Normal) Rate: tachycardia (Rate 101 bpm) Disposition Clinical Impression: CHF exacerbation Disposition: ADMITTED IP TO THIS HOSP Condition: Stable Is patient prescribed a controlled substance at d/c from ED?: No
[2024-08-18] MEDS: HYDROcodone/APAP 5-325MG 1 EACH TAB PO STA (00:37)
[2024-08-18] MEDS: MORPHINE SULFATE 4 MG/ML SYRINGE IV STA ×2 (00:37→03:44)
[2024-08-18] MEDS: FUROSEMIDE 10 MG/ML 4 ML VIAL IV STA (00:43)
[2024-08-18] MEDS: NITROGLYCERIN OINT 1 INCH/GM PACKET TOPICAL STA (00:46)
[2024-08-18 00:47] LABS: ALT 27 U/L (4-34); AST 46 U/L (14-36); African American GFR (CKD) >90 (>60 ml/min/1.73 sqM); Albumin 3.2 g/dL (3.5-5.0); Alkaline Phosphatase 209 U/L (38-126); Anion Gap 7 mmol/L; Blood Urea Nitrogen 12 mg/dL (7-17); Calcium 8.1 mg/dL (8.4-10.2); Carbon Dioxide 27 mmol/L (22-30); Chloride 103 mmol/L (98-107); Glucose 147 mg/dL (74-99); Non-African American GFR(CKD) >90 (>60 ml/min/1.73 sqM); Potassium 3.7 mmol/L (3.5-5.1); Sodium 137 mmol/L (137-145); Total Bilirubin 3.1 mg/dL (0.2-1.3); Total Protein 6.1 g/dL (6.3-8.2)
[2024-08-18 00:55] LABS: NT-Pro-B-Type Natriuretic Pept 1150 pg/mL
[2024-08-18 03:53] LABS: INR 1.2 (<1.2); Partial Thromboplastin Time 26.9 sec (22.0-30.0); Prothrombin Time 12.7 sec (10.0-12.5)
[2024-08-18] MEDS ORDERED: CALCIUM CARBONATE 500 MG CHEWABLE PO PRN (06:25)
[2024-08-18] MEDS ORDERED: ACETAMINOPHEN TAB 325 MG TAB PO PRN (06:25)
[2024-08-18] MEDS ORDERED: MORPHINE SULFATE 4 MG/ML SYRINGE IV PRN (06:25)
[2024-08-18] MEDS ORDERED: NALOXONE 0.4 MG/ML 1 ML VIAL IV PRN (06:25)
[2024-08-18] MEDS: FUROSEMIDE 10 MG/ML 4 ML VIAL IV SCH (06:37)
[2024-08-18] MEDS: ONDANSETRON 4 MG/2 ML VIAL IVP STA (06:40)
[2024-08-18] MEDS: CEPHALEXIN 500 MG CAP PO SCH ×2 (08:12→14:38)
[2024-08-18] MEDS: METOPROLOL TARTRATE 25 MG TAB PO SCH (08:23)
[2024-08-18] MEDS: PANTOPRAZOLE 40 MG TABLET PO SCH (08:23)
[2024-08-18] MEDS: ASPIRIN 81 MG PO SCH (08:23)
[2024-08-18] MEDS: CLOPIDOGREL 75 MG TAB PO SCH (08:23)
[2024-08-18] MEDS: ATORVASTATIN 40 MG TAB PO SCH (08:23)
[2024-08-18] MEDS ORDERED: FAMOTIDINE 20 MG TAB PO SCH (09:00)
--- NOTE | 2024-08-18 09:01 | P.GSHP ---
History of Present Illness H&P Date: 08/18/24 Chief Complaint: Shortness of breath This is a 49-year-old female who does not follow on an outpatient basis with a primary care provider. She has a previous medical history of coronary artery disease status post recent stent followed by three-vessel off-pump CABG on August 09, 2024, hypertension, diet-controlled diabetes, bipolar disorder, chronic thrombocytopenia and anemia, left internal carotid artery stenosis, chronic transaminitis with history of EtOH abuse, previous tobacco cessation with recent cessation from vaping, and marijuana use. She was hospitalized 07/29/24 with unstable angina. She underwent heart catheterization 07/30/24 with drug-eluting stent placed to the ramus intermedius, there was notation that Dr. Ogden was unable to get a stent past the ostium of the circumflex which did have a 99% blockage. At that time she also had a transthoracic echocardiogram demonstrating normal left ventricular systolic function with EF 55 to 60%, mild mitral and tricuspid regurgitation. She was discharged to home on August 01, 2024 and was feeling good for about 24 hours when she developed pain under her left axilla which spread medially. This time she also endorsed shortness of breath, nausea, cold sweats, and significant anxiety. She presented back to the emergency room at [facility] 08/02/24. Lab work revealed mildly elevated troponins, she was kept inpatient and taken back to the [facility] which revealed complex anatomy including trifurcation and severe angulation of takeoff of the circumflex with 120 degree takeoff, severe calcification at the level of the distal main into the circumflex coronary artery. IVUS demonstrated significant left main disease as well as calcified plaque. There was concern for high risk of shifting plaque into the LAD or circumflex or dissection with intervention of the circumflex, therefore consultation was placed to cardiothoracic surgery for revascularization recommendations. She was seen by Dr. Lan and scheduled for urgent off-pump CABG on August 09, 2024. Her postoperative recovery was uneventful and she was discharged to home with home health care on postoperative day #4. She was seen yesterday for follow-up with complaints of some mild shortness of breath leading to panic attacks. She was prescribed Lasix, she took 1 dose yesterday afternoon, however last night she felt more short of breath so she presented to [facility] emergency room for evaluation and treatment. - Review of Systems Comment: Review of systems was completed and was negative except as noted - Cardiovascular Cardiovascular: Reports shortness of breath Past Medical History Past Medical History: Coronary Artery Disease (CAD), Diabetes Mellitus, Hypertension, Osteoarthritis (OA), Skin Disorder Additional Past Medical History / Comment(s): KIDNEY STONES, diet controlled diabetic-no longer needs med, no longer needs BP med, seasonal allergies, a bscess right breast, left breast hx. of abscess, yeast in skin fold in abd. History of Any Multi-Drug Resistant Organisms: None Reported Past Surgical History: Appendectomy, Breast Surgery, Cholecystectomy, Coronary Bypass/CABG, Heart Catheterization With Stent, Orthopedic Surgery, Tubal Ligation Additional Past Surgical History / Comment(s): carpal tunnel RIGHT WRIST, dental, abcess drainage left breast x2 (July 2016, March 2019, Aug 2019); RT breast I&D 05/22/21, 06/05/21; Left ankle surgery. Past Anesthesia/Blood Transfusion Reactions: No Reported Reaction, Family History of Problems w/ Anesthesia Additional Past Anesthesia/Blood Transfusion Reaction / Comment(s): No blood transfusion to date, mom stopped breathing during a surg. & had to be resuscitated Date of Last Stent Placement:: 07/30/24 Past Psychological History: Anxiety, Bipolar, Depression Smoking Status: Former smoker Past Alcohol Use History: None Reported Past Drug Use History: Marijuana - Past Family History Mother Family Medical History: Cancer Additional Family Medical History / Comment(s): CERVICAL CANCER Father Family Medical History: Unable to Obtain Additional Family Medical History / Comment(s): Patient did not know her father Medications and Allergies Home Medications Medication Instructions Recorded Confirmed Type Aspirin 81 mg PO DAILY tab 08/01/24 08/18/24 Rx Acetaminophen Tab [Tylenol] 1,000 mg PO Q6HR PRN tab 08/13/24 08/18/24 Rx Atorvastatin [Lipitor] 40 mg PO DAILY #30 tab 08/13/24 08/18/24 Rx Clopidogrel [Plavix] 75 mg PO DAILY #30 tab 08/13/24 08/18/24 Rx Metoprolol Tartrate [Lopressor] 25 mg PO BID #60 tab 08/13/24 08/18/24 Rx Pantoprazole [Protonix] 40 mg PO DAILY #30 tab 08/13/24 08/18/24 Rx Cephalexin [Keflex] 500 mg PO Q6HR #40 cap 08/14/24 08/18/24 Rx Furosemide [Lasix] 40 mg PO DAILY #7 tablet 08/17/24 08/18/24 Rx Allergies Allergy/AdvReac Type Severity Reaction Status Date / Time capsaicin Allergy Rash/Hives/ Verified 08/18/24 07:24 Swelling Surgical - Exam Vital Signs Temp Pulse Resp BP Pulse Ox 100.1 F H 99 26 H 125/84 93 L 08/17/24 23:31 08/17/24 23:31 08/17/24 23:31 08/17/24 23:31 08/17/24 23:31 CONSTITUTIONAL: Awake and alert, appears comfortable, cooperative, well- developed, well-nourished, no pain, no acute distress EYES: Pupils equal, round, reactive to light, normal ocular movement ENT: Moist mucous membranes without oral lesions present NECK: No masses, no bruits, trachea midline RESPIRATORY: Lungs sounds diminished bilaterally. Respirations even, nonlabored. Currently on 2 L nasal cannula with oxygen saturation 100%. Strong cough CARDIOVASCULAR: S1, S2 present. Regular rate and rhythm, sinus tach on telemetry. Palpable peripheral pulses bilaterally. Bilateral lower extremity e bianca present. No calf pain or tenderness noted GASTROINTESTINAL: Abdomen soft, nontender, nondistended, obese without masses or organomegaly noted. There is no rebound or guarding present. Active bowel sounds present 4 quadrants. GENITOURINARY: Deferred INTEGUMENTARY: Skin is warm and dry. Anterior chest incision well- approximated, left thigh EVH site without drainage NEUROLOGIC: Cranial nerves II through XII intact, normal coordination, no obvious motor or sensory deficits, speech is normal MUSKULOSKELETAL: Able to move all extremities, strength equal bilaterally, normal posture PSYCHIATRIC: Alert and oriented to person place and time, appropriate affect, intact judgment and insight Results - Labs 08/17/24 23:49 08/17/24 23:49 Abnormal Lab Results - Last 24 Hours (Table) 08/17/24 08/17/24 08/17/24 Range/Units 23:49 23:49 23:49 RBC 2.86 L (3.80-5.40) m/uL Hgb 8.7 L (11.4-16.0) gm/dL Hct 26.8 L (34.0-46.0) % RDW 16.8 H (11.5-15.5) % PT 12.7 H (10.0-12.5) sec INR 1.2 H (<1.2) Glucose 147 H (74-99) mg/dL Calcium 8.1 L (8.4-10.2) mg/dL Total Bilirubin 3.1 H (0.2-1.3) mg/dL AST 46 H (14-36) U/L Alkaline Phosphatase 209 H (38-126) U/L Troponin I (0.000-0.034) ng/mL Total Protein 6.1 L (6.3-8.2) g/dL Albumin 3.2 L (3.5-5.0) g/dL 08/17/24 08/18/24 Range/Units 23:49 03:40 RBC (3.80-5.40) m/uL Hgb (11.4-16.0) gm/dL Hct (34.0-46.0) % RDW (11.5-15.5) % PT (10.0-12.5) sec INR (<1.2) Glucose (74-99) mg/dL Calcium (8.4-10.2) mg/dL Total Bilirubin (0.2-1.3) mg/dL AST (14-36) U/L Alkaline Phosphatase (38-126) U/L Troponin I 0.178 H* 0.174 H* (0.000-0.034) ng/mL Total Protein (6.3-8.2) g/dL Albumin (3.5-5.0) g/dL Diabetes panel 08/17/24 Range/Units 23:49 Sodium 137 (137-145) mmol/L Potassium 3.7 (3.5-5.1) mmol/L Chloride 103 (98-107) mmol/L Carbon Dioxide 27 (22-30) mmol/L BUN 12 (7-17) mg/dL Creatinine 0.67 (0.52-1.04) mg/dL Glucose 147 H (74-99) mg/dL Calcium 8.1 L (8.4-10.2) mg/dL AST 46 H (14-36) U/L ALT 27 (4-34) U/L Alkaline Phosphatase 209 H (38-126) U/L Total Protein 6.1 L (6.3-8.2) g/dL Albumin 3.2 L (3.5-5.0) g/dL Calcium panel 08/17/24 Range/Units 23:49 Calcium 8.1 L (8.4-10.2) mg/dL Albumin 3.2 L (3.5-5.0) g/dL Pituitary panel 08/17/24 Range/Units 23:49 Sodium 137 (137-145) mmol/L Potassium 3.7 (3.5-5.1) mmol/L Chloride 103 (98-107) mmol/L Carbon Dioxide 27 (22-30) mmol/L BUN 12 (7-17) mg/dL Creatinine 0.67 (0.52-1.04) mg/dL Glucose 147 H (74-99) mg/dL Calcium 8.1 L (8.4-10.2) mg/dL Adrenal panel 08/17/24 Range/Units 23:49 Sodium 137 (137-145) mmol/L Potassium 3.7 (3.5-5.1) mmol/L Chloride 103 (98-107) mmol/L Carbon Dioxide 27 (22-30) mmol/L BUN 12 (7-17) mg/dL Creatinine 0.67 (0.52-1.04) mg/dL Glucose 147 H (74-99) mg/dL Calcium 8.1 L (8.4-10.2) mg/dL Total Bilirubin 3.1 H (0.2-1.3) mg/dL AST 46 H (14-36) U/L ALT 27 (4-34) U/L Alkaline Phosphatase 209 H (38-126) U/L Total Protein 6.1 L (6.3-8.2) g/dL Albumin 3.2 L (3.5-5.0) g/dL - Imaging Chest x-ray: report reviewed, image reviewed EKG: image reviewed Assessment and Plan Assessment: Central vascular congestion, fluid overload, shortness of breath History of coronary artery disease status post recent stent followed by three- vessel off-pump CABG on August 09, 2024 Preserved left ventricular systolic function, EF 55 to 60%, mild MR, TR Hypertension Diet-controlled diabetes Bipolar disorder Chronic thrombocytopenia and anemia Left internal carotid artery stenosis Chronic transaminitis with history of EtOH abuse Previous tobacco cessation with recent cessation from vaping Marijuana use Plan: The patient was seen and examined with Dr. Ortiz sitting up on a cart in the emergency room. Her admission was discussed with Dr. Ortiz and was placed in 23-hour observation. IV Lasix was given and scheduled for 3 times daily. Will repeat chest x-ray at noon to evaluate effect. Wean oxygen as tolerated, patient does not need oxygen unless her saturation is less than 88% on room air. Incentive spirometry ordered and encouraged. Increase activity, ambulate as tolerated. Sternal precautions. Will reevaluate this afternoon and decide whether she should be discharged home this afternoon versus tomorrow morning. We did consult cardiology as she is known to their service, no other consults warranted at this time. Home medications ordered, may increase beta-lopez although it was just given so we evaluate effect before increasing. All discharge instructions and follow-up appointments will be placed on discharge plan. More recommendations to follow. I have personally seen and examined the patient, performed the documentation and the assessment and plan as written. Number of minutes spent on the visit: 30. MONA Lim
--- NOTE | 2024-08-18 09:52 | P.CRDCN ---
History of Present Illness History of present illness: HISTORY OF PRESENT ILLNESS: This is a 49-year-old female with a past medical history significant for coronary artery disease with previous stenting and CABG, hypertension, diet-controlled diabetes, anxiety, bipolar disorder, depression, obesity, and former nicotine dependence. Patient follows in the office with Dr. Ogden. We have been asked to see the patient in consultation for congestive heart failure. Patient examined at the bedside in the emergency room. Patient is status post PCI of the ramus on 07/30/2024. Additionally she underwent CABG x 3 vessels: PERSAUD to diagonal and LAD and SVG to acute marginal branch of RCA performed on August 09, 2024. Patient was discharged home in stable condition last Friday. Patient states that she started to feel short of breath on Friday. Her home care nurse came out to evaluate her at that time and no further action was taken. She states yesterday she went to her follow-up appointment at the [place] surgery office. Patient continued to complain of shortness of breath at that time. She was started on Lasix 40 mg daily. She states that she went home and took her first dose. She states that she did urinate quite a bit yesterday. However, at night she continued to feel short of breath to the point where she states she felt like she was "drowning" so she came to the emergency room for further evaluation. The patient was found to be in acute CHF and was started on IV diuretics. She currently denies any chest pain or pressure. She states she has been compliant with all of her medications at home. Additionally she has been following a low-sodium diet. Vital signs are stable. DIAGNOSTICS: - EKG reveals sinus tachycardia with no signs of acute ischemia - Chest xray findings consistent with CHF exacerbation/fluid overload state - Laboratory data: WBC 6.7. Hemoglobin 8.7. Platelet count 158. Sodium 137. Potassium 3.7. BUN 12. Creatinine 0.67. Troponin 0.178. 0.174. proBNP 1150. - Current home cardiac medications include metoprolol tartrate 25 mg twice a day, Plavix 75 mg daily, Lipitor 40 mg daily, and aspirin 81 mg daily. Patient was just started on oral Lasix yesterday. - Most recent echocardiogram obtained in July 2024 revealed ejection fraction 55 to 60% with mild MR, mild TR REVIEW OF SYSTEMS: At the time of my exam: CONSTITUTIONAL: Denies fever or chills. HEENT: Denies blurred vision, vision changes, or eye pain. Denies hemoptysis CARDIOVASCULAR: Denies chest pain. Denies orthopnea. Denies PND. Denies palpitations RESPIRATORY: Denies shortness of breath. GASTROINTESTINAL: Denies abdominal pain. Denies nausea or vomiting. HEMATOLOGIC: Denies bleeding disorders. GENITOURINARY: Denies any blood in urine. SKIN: Denies pruitis. Denies rash. PHYSICAL EXAM: VITAL SIGNS: Reviewed. GENERAL: Well-developed in no acute distress. HEENT: Head is normocephalic. Pupils are equal, round. Sclerae anicteric. Mucous membranes of the mouth are moist. Neck supple. No JVD or thyromegaly LUNGS: Respirations even and unlabored. Lungs with a few crackles at the bases HEART: Regular rate and rhythm. S1 and S2 heard. ABDOMEN: Soft. Nondistended. Nontender. EXTREMITIES: Normal range of motion. No clubbing or cyanosis. Peripheral pulses intact. 1+ left lower extremity edema. NEUROLOGIC: Awake and alert. Oriented x 3. ASSESSMENT: Acute heart failure with preserved EF, 55 to 60% Coronary artery disease status post CABG x 3 vessels: PERSAUD to diagonal and LAD and SVG to acute marginal branch of RCA 08/09/2024 Status post PCI of the ramus on 07/30/2024 Hypertension Diet controlled diabetes Anxiety Bipolar disorder Depression Obesity: BMI 42.5 Former nicotine dependence PLAN: No need to repeat echocardiogram. No clinical evidence of pericardial effusion Resume home cardiac medications Discontinue IV Lasix. Begin oral Bumex 1 mg daily for 7 days Add Farxiga 10 mg daily Add losartan 12.5 mg daily Add Aldactone 12.5 mg daily Daily weights, accurate intake and output, and monitoring of kidney function Continue to monitor kidney function Further recommendations pending patient course Patient to follow-up postdischarge with Dr. Ogden Nurse practitioner note has been reviewed by physician. Signing provider agrees with the documented findings, assessment, and plan of care documented by INSPECTION CLERK as a scribe. Past Medical History Past Medical History: Coronary Artery Disease (CAD), Diabetes Mellitus, Hypertension, Osteoarthritis (OA), Skin Disorder Additional Past Medical History / Comment(s): KIDNEY STONES, diet controlled diabetic-no longer needs med, no longer needs BP med, seasonal allergies, abscess right breast, left breast hx. of abscess, yeast in skin fold in abd. History of Any Multi-Drug Resistant Organisms: None Reported Past Surgical History: Appendectomy, Breast Surgery, Cholecystectomy, Coronary Bypass/CABG, Heart Catheterization With Stent, Orthopedic Surgery, Tubal Ligation Additional Past Surgical History / Comment(s): carpal tunnel RIGHT WRIST, dental, abcess drainage left breast x2 (July 2016, March 2019, Aug 2019); RT breast I&D 05/22/21, 06/05/21; Left ankle surgery. Past Anesthesia/Blood Transfusion Reactions: No Reported Reaction, Family History of Problems w/ Anesthesia Additional Past Anesthesia/Blood Transfusion Reaction / Comment(s): No blood transfusion to date, mom stopped breathing during a surg. & had to be resuscitated Date of Last Stent Placement:: 07/30/24 Past Psychological History: Anxiety, Bipolar, Depression Smoking Status: Former smoker Past Alcohol Use History: None Reported Past Drug Use History: Marijuana - Past Family History Mother Family Medical History: Cancer Additional Family Medical History / Comment(s): CERVICAL CANCER Father Family Medical History: Unable to Obtain Additional Family Medical History / Comment(s): Patient did not know her father Medications and Allergies Home Medications Medication Instructions Recorded Confirmed Type Aspirin 81 mg PO DAILY tab 08/01/24 08/18/24 Rx Acetaminophen Tab [Tylenol] 1,000 mg PO Q6HR PRN tab 08/13/24 08/18/24 Rx Atorvastatin [Lipitor] 40 mg PO DAILY #30 tab 08/13/24 08/18/24 Rx Clopidogrel [Plavix] 75 mg PO DAILY #30 tab 08/13/24 08/18/24 Rx Metoprolol Tartrate [Lopressor] 25 mg PO BID #60 tab 08/13/24 08/18/24 Rx Pantoprazole [Protonix] 40 mg PO DAILY #30 tab 08/13/24 08/18/24 Rx Cephalexin [Keflex] 500 mg PO Q6HR #40 cap 08/14/24 08/18/24 Rx Furosemide [Lasix] 40 mg PO DAILY #7 tablet 08/17/24 08/18/24 Rx Allergies Allergy/AdvReac Type Severity Reaction Status Date / Time capsaicin Allergy Rash/Hives/ Verified 08/18/24 07:24 Swelling Physical Exam Vitals: Vital Signs Temp Pulse Resp BP Pulse Ox 08/18/24 06:18 98 18 121/84 98 08/18/24 03:45 95 18 145/65 96 08/18/24 02:15 98.6 F 08/18/24 02:07 100 20 143/72 97 08/18/24 00:36 93 18 137/61 97 08/17/24 23:42 26 H 08/17/24 23:31 100.1 F H 99 26 H 125/84 93 L Intake and Output 08/17/24 08/18/24 08/18/24 22:59 06:59 14:59 Output Total 650 300 Balance -650 -300 Output: Urine 650 300 Other: # Voids 1 Weight 108.862 kg Results 08/17/24 23:49 08/17/24 23:49 Cardiac Enzymes 08/17/24 08/17/24 08/18/24 Range/Units 23:49 23:49 03:40 AST 46 H (14-36) U/L Troponin I 0.178 H* 0.174 H* (0.000-0.034) ng/mL Coagulation 08/17/24 Range/Units 23:49 PT 12.7 H (10.0-12.5) sec APTT 26.9 (22.0-30.0) sec CBC 08/17/24 Range/Units 23:49 WBC 6.7 (3.8-10.6) k/uL RBC 2.86 L (3.80-5.40) m/uL Hgb 8.7 L (11.4-16.0) gm/dL Hct 26.8 L (34.0-46.0) % Plt Count 158 (150-450) k/uL Comprehensive Metabolic Panel 08/17/24 Range/Units 23:49 Sodium 137 (137-145) mmol/L Potassium 3.7 (3.5-5.1) mmol/L Chloride 103 (98-107) mmol/L Carbon Dioxide 27 (22-30) mmol/L BUN 12 (7-17) mg/dL Creatinine 0.67 (0.52-1.04) mg/dL Glucose 147 H (74-99) mg/dL Calcium 8.1 L (8.4-10.2) mg/dL AST 46 H (14-36) U/L ALT 27 (4-34) U/L Alkaline Phosphatase 209 H (38-126) U/L Total Protein 6.1 L (6.3-8.2) g/dL Albumin 3.2 L (3.5-5.0) g/dL Current Medications Generic Name Dose Route Start Last Admin Trade Name Freq PRN Reason Stop Dose Admin Acetaminophen 650 mg 08/18/24 06:25 Acetaminophen Tab 325 Mg Tab PO Q6HR PRN Mild Pain or Fever > 100.5 Hydrocodone Bitart/Acetaminophen 1 each 08/18/24 06:25 Hydrocodone/Apap 5-325mg 1 Each Tab PO Q4HR PRN Moderate Pain (Scale 4 to 6) Aspirin 81 mg 08/18/24 09:00 08/18/24 08:23 Aspirin 81 Mg PO 81 mg DAILY GABO Administration Atorvastatin Calcium 40 mg 08/18/24 09:00 08/18/24 08:23 Atorvastatin 40 Mg Tab PO 40 mg DAILY GABO Administration Calcium Carbonate/Glycine 1,000 mg 08/18/24 06:25 Calcium Carbonate 500 Mg Chewable PO Q4HR PRN Dyspepsia Cephalexin 500 mg 08/18/24 07:30 08/18/24 08:12 Cephalexin 500 Mg Cap PO 500 mg Q6HR GABO Administration Protocol Clopidogrel Bisulfate 75 mg 08/18/24 09:00 08/18/24 08:23 Clopidogrel 75 Mg Tab PO 75 mg DAILY GABO Administration Furosemide 40 mg 08/18/24 06:00 08/18/24 06:37 Furosemide 10 Mg/Ml 4 Ml Vial IV 40 mg Q8H GABO Administration Heparin Sodium (Porcine) 5,000 unit 08/18/24 08:00 Heparin Sodium,Porcine 5,000 Unit/Ml 1 Ml Vial SQ Q8HR GABO Metoprolol Tartrate 25 mg 08/18/24 09:00 08/18/24 08:23 Metoprolol Tartrate 25 Mg Tab PO 25 mg BID GABO Administration Naloxone HCl 0.2 mg 08/18/24 06:25 Naloxone 0.4 Mg/Ml 1 Ml Vial IV Q2M PRN Opioid Reversal Pantoprazole Sodium 40 mg 08/18/24 09:00 08/18/24 08:23 Pantoprazole 40 Mg Tablet PO 40 mg DAILY GABO Administration Intake and Output 08/17/24 08/18/24 08/18/24 22:59 06:59 14:59 Output Total 650 300 Balance -650 -300 Output: Urine 650 300 Other: # Voids 1 Weight 108.862 kg 08/17/24 23:49 08/17/24 23:49
[2024-08-18] MEDS: BUMETANIDE 1 MG TAB PO SCH (11:52)
[2024-08-18] MEDS: SPIRONOLACTONE 25 MG TAB PO SCH (11:52)
[2024-08-18] MEDS: LOSARTAN 25 MG TAB PO SCH (11:53)
[2024-08-18] MEDS: DAPAGLIFLOZIN PROPANEDIOL 10 MG TABLET PO SCH (11:54)
[2024-08-18] MEDS: HEPARIN SODIUM,PORCINE 5,000 UNIT/ML 1 ML VIAL SQ SCH (11:54)
--- NOTE | 2024-08-18 12:23 | XR ---
EXAMINATION TYPE: XR chest 2V DATE OF EXAM: 08/18/2024 12:14 PM COMPARISON: Chest radiographs from 08/18/2024 TECHNIQUE: XR chest 2V Frontal and lateral views of the chest. CLINICAL INDICATION:Female, 49 years old with history of chf; FINDINGS: Lungs/Pleura: No evidence of focal consolidation or pneumothorax. Blunting of the costophrenic angles is present. Pulmonary vascularity: Pulmonary vascular congestion. Heart/mediastinum: Cardiomediastinal silhouette is enlarged and stable. Left atrial appendage occlusi on devices present. Musculoskeletal: No acute osseous pathology. Midline sternotomy wires are noted and stable. IMPRESSION: Similar cardiomegaly, pulmonary vascular congestion and bilateral small to moderate pleural effusions . Most consistent with CHF exacerbation. [facility], , 08/18/2024 12:21 PM
[2024-08-18] MEDS: FUROSEMIDE 10 MG/ML 4 ML VIAL IV ONE (16:45)
[2024-08-18] MEDS: HYDROcodone/APAP 5-325MG 1 EACH TAB PO PRN (18:32)
[2024-08-18 20:07] LABS: Glucose,Whole Blood 164 mg/dL (70-110)
[2024-08-19 06:14] LABS: Glucose,Whole Blood 148 mg/dL (70-110)
[2024-08-19 06:47] LABS: African American GFR (CKD) 78 (>60 ml/min/1.73 sqM); Anion Gap 6 mmol/L; Blood Urea Nitrogen 19 mg/dL (7-17); Carbon Dioxide 30 mmol/L (22-30); Chloride 97 mmol/L (98-107); Glucose 137 mg/dL (74-99); Non-African American GFR(CKD) 67 (>60 ml/min/1.73 sqM); Potassium 3.7 mmol/L (3.5-5.1); Sodium 133 mmol/L (137-145)
--- NOTE | 2024-08-19 08:29 | XR ---
EXAMINATION TYPE: XR chest 2V DATE OF EXAM: 08/19/2024 COMPARISON: 08/18/2024 INDICATION: Pleural effusion TECHNIQUE: Single frontal view of the chest is obtained. FINDINGS: The heart size is normal. The pulmonary vasculature is normal. Small left and minimal right pleural effusions are present. No suspicious focal consolidations. Aerat ion has improved from comparison. IMPRESSION: 1. Small left and minimal right pleural effusion [facility], , 08/19/2024 8:26 AM
[2024-08-19 08:43] VITALS: BP 122/58; PULSE 90; RESP 16; TEMP 98.2
--- NOTE | 2024-08-19 09:19 | P.PN ---
Subjective Progress Note Date: 08/19/24 Principal diagnosis: Acute on chronic diastolic heart failure. History of coronary artery disease status post recent stent followed by three-vessel off-pump CABG on August 09, 2024, preserved left ventricular systolic function, EF 55 to 60%, hypertension, diet-controlled diabetes, bipolar disorder, chronic thrombocytopenia and anemia, left internal carotid artery stenosis, chronic transaminitis with history of EtOH abuse, previous tobacco cessation with recent cessation from vaping, marijuana use The patient was seen and examined sitting up in recliner on the cardiac stepdown unit this morning with her present. She states she does feel better than when she came in, did still have a couple of episodes of shortness of breath with panic but which resolved on its own. Remains in sinus rhythm, hemodynamically stable. Remains on room air with oxygen saturation in the high 90s, able to achieve 1000 mL on incentive spirometry. She has been ambulatory around the hallway a couple of times already, she has showered this morning already. IV Lasix was stopped yesterday by Dr. Mcclain, oral Bumex and Aldactone were added. Lab work, repeat chest x-ray were reviewed. Will discharge to home today. Objective - Vital Signs Vital signs: Vital Signs Temp 98.2 F 08/19/24 08:00 Pulse 90 08/19/24 08:00 Resp 16 08/19/24 08:00 BP 122/58 08/19/24 08:00 Pulse Ox 97 08/19/24 08:00 FiO2 Intake & Output 08/18/24 08/19/24 08/19/24 18:59 06:59 18:59 Intake Total 356 280 120 Output Total 300 Balance 56 280 120 Weight 108.862 kg 106.9 kg Intake: Oral 356 280 120 Output: Urine 300 Other: Voiding Method Toilet - Exam CONSTITUTIONAL: Appears comfortable, cooperative, no acute distress RESPIRATORY: Lungs sounds diminished in the bases bilaterally. Respirations even, nonlabored. Currently on room air with oxygen saturation 97%. Able to achieve 1000 mL on incentive spirometry. Strong cough. CARDIOVASCULAR: S1, S2 present. Regular rate and rhythm, sinus rhythm on telemetry. Sternum stable. Palpable peripheral pulses bilaterally. Bilateral lower extremity edema present. No calf pain or tenderness noted. Heart hugger in place with patient demonstrating appropriate use GASTROINTESTINAL: Abdomen soft, nontender, nondistended. Active bowel sounds present 4 quadrants. Tolerating diet GENITOURINARY: Continues to void although not measured accurately INTEGUMENTARY: Skin is warm and dry with evidence of good perfusion. Anterior chest incision well approximated. Left thigh EVH site well approximated NEUROLOGIC: Cranial nerves II through XII intact MUSKULOSKELETAL: Able to move all extremities, strength equal bilaterally, gait normal PSYCHIATRIC: Alert and oriented to person place and time, appropriate affect, intact judgment and insight - Allied health notes Allied health notes reviewed: nursing - Labs CBC & Chem 7: 08/17/24 23:49 08/19/24 05:59 Labs: Abnormal Lab Results - Last 24 Hours (Table) 08/18/24 08/19/24 08/19/24 Range/Units 20:06 05:59 06:11 Sodium 133 L (137-145) mmol/L Chloride 97 L (98-107) mmol/L BUN 19 H (7-17) mg/dL Glucose 137 H (74-99) mg/dL POC Glucose (mg/dL) 164 H 148 H (70-110) mg/dL Calcium 8.0 L (8.4-10.2) mg/dL - Imaging and Cardiology Chest x-ray: report reviewed, image reviewed Assessment and Plan Assessment: Acute on chronic diastolic heart failure, fluid overload, shortness of breath History of coronary artery disease status post recent stent followed by three- vessel off-pump CABG on August 09, 2024 Preserved left ventricular systolic function, EF 55 to 60%, mild MR, TR Hypertension Diet-controlled diabetes Bipolar disorder Chronic thrombocytopenia and anemia Left internal carotid artery stenosis Chronic transaminitis with history of EtOH abuse Previous tobacco cessation with recent cessation from vaping Marijuana use Plan: Continue current medication regimen Encourage incentive spirometry use Increase activity, ambulate as tolerated Sternal precautions Will discharge to home with home care today Discharge instructions, follow-up appointments were placed on discharge plan
--- NOTE | 2024-08-19 13:47 | P.DS ---
Providers Date of admission: 08/18/24 06:25 Expected date of discharge: 08/19/24 Attending physician: Phong Ortiz Consults: 08/18/24 07:16 Consult Physician Routine Consulting Provider: Chetan Mcclain Consult Reason/Comments: known to your service, post open heart Do you want consulting provider notified?: Yes Primary care physician: Stated None Hospital Course: FINAL DIAGNOSIS: Acute on chronic diastolic heart failure, fluid overload, shortness of breath History of coronary artery disease status post recent stent followed by three- vessel off-pump CABG on August 09, 2024 Preserved left ventricular systolic function, EF 55 to 60%, mild MR, TR Hypertension Diet-controlled diabetes Bipolar disorder Chronic thrombocytopenia and anemia Left internal carotid artery stenosis Chronic transaminitis with history of EtOH abuse Previous tobacco cessation with recent cessation from vaping Marijuana use HISTORY OF PRESENT ILLNESS: This is a 49-year-old female who does not follow on an outpatient basis with a primary care provider. She was hospitalized 07/29/24 with unstable angina. She underwent heart catheterization 07/30/24 with drug- eluting stent placed to the ramus intermedius, there was notation that Dr. Ogden was unable to get a stent past the ostium of the circumflex which did have a 99% blockage. At that time she also had a transthoracic echocardiogram demonstrating normal left ventricular systolic function with EF 55 to 60%, mild mitral and tricuspid regurgitation. She was discharged to home on August 01, 2024 and was feeling good for about 24 hours when she developed pain under her left axilla which spread medially. This time she also endorsed shortness of breath, nausea, cold sweats, and significant anxiety. She presented back to the emergency room at [facility] 08/02/24. Lab work revealed mildly elevated troponins, she was kept inpatient and taken back to the Continuous [employer] Drier Operator which revealed complex anatomy including trifurcation and severe angulation of takeoff of the circumflex with 120 degree takeoff, severe calcification at the level of the distal main into the circumflex coronary artery. IVUS demonstrated significant left main disease as well as calcified plaque. There was concern for high risk of shifting plaque into the LAD or circumflex or dissection with intervention of the circumflex, therefore consultation was placed to cardiothoracic surgery for revascularization recommendations. She was seen by Dr. Lan and scheduled for urgent off-pump CABG on August 09, 2024. Her postoperative recovery was uneventful and she was discharged to home with home health care on postoperative day #4. She was seen yesterday for follow-up with complaints of some mild shortness of breath leading to panic attacks. She was prescribed Lasix, she took 1 dose however later in the evening she felt more short of breath so she presented to [facility] emergency room for evaluation and treatment. She was placed in observation, diuresed with Lasix first then Bumex and Aldactone. Follow-up chest x-ray demonstrated continued bilateral pleural effusions but improvement from prior. She reported feeling much better. Her oxygen was titrated down, she was tolerating oral diet, her pain was controlled, and she was ready to be discharged to home with [facility]. She received written and verbal instruction regarding her medications, activity restrictions, signs and symptoms requiring physician notification, and follow-up appointments. She also was given a prescription to obtain an x-ray on Friday, August 23, 2024 at which time further determinations will be made regarding continued diuretic medical therapy versus possible thoracentesis. Patient Condition at Discharge: Stable Plan - Discharge Summary Discharge Rx Participant: No New Discharge Prescriptions: New Bumetanide [BUMEX] 1 mg PO DAILY #7 tab Calcium Carbonate [Tums] 1,000 mg PO Q4HR PRN tab PRN Reason: Dyspepsia Spironolactone [Aldactone] 12.5 mg PO DAILY #30 tab Losartan [Cozaar] 12.5 mg PO DAILY #30 tab Dapagliflozin Propanediol [Farxiga] 10 mg PO DAILY #30 tab HYDROcodone/APAP 5-325MG [[place] 5-325] 1 each PO Q6HR PRN #12 tab PRN Reason: Moderate Pain (Scale 4 To 6) Continue Atorvastatin [Lipitor] 40 mg PO DAILY #30 tab Metoprolol Tartrate [Lopressor] 25 mg PO BID #60 tab Clopidogrel [Plavix] 75 mg PO DAILY #30 tab Pantoprazole [Protonix] 40 mg PO DAILY #30 tab Acetaminophen Tab [Tylenol] 1,000 mg PO Q6HR PRN tab PRN Reason: Fever And/ Or Mild Pain (1-3) Aspirin 81 mg PO DAILY tab Cephalexin [Keflex] 500 mg PO Q6HR #40 cap Discontinued Furosemide [Lasix] 40 mg PO DAILY #7 tablet Discharge Medication List Aspirin 81 mg PO DAILY tab 08/01/24 [Rx] Acetaminophen Tab [Tylenol] 1,000 mg PO Q6HR PRN tab 08/13/24 [Rx] Atorvastatin [Lipitor] 40 mg PO DAILY #30 tab 08/13/24 [Rx] Clopidogrel [Plavix] 75 mg PO DAILY #30 tab 08/13/24 [Rx] Metoprolol Tartrate [Lopressor] 25 mg PO BID #60 tab 08/13/24 [Rx] Pantoprazole [Protonix] 40 mg PO DAILY #30 tab 08/13/24 [Rx] Cephalexin [Keflex] 500 mg PO Q6HR #40 cap 08/14/24 [Rx] Bumetanide [BUMEX] 1 mg PO DAILY #7 tab 08/19/24 [Rx] Calcium Carbonate [Tums] 1,000 mg PO Q4HR PRN tab 08/19/24 [Rx] Dapagliflozin Propanediol [Farxiga] 10 mg PO DAILY #30 tab 08/19/24 [Rx] HYDROcodone/APAP 5-325MG [[place] 5-325] 1 each PO Q6HR PRN #12 tab 08/19/24 [Rx] Losartan [Cozaar] 12.5 mg PO DAILY #30 tab 08/19/24 [Rx] Spironolactone [Aldactone] 12.5 mg PO DAILY #30 tab 08/19/24 [Rx] Follow up Appointment(s)/Referral(s): Rajiv Julio MD [STAFF PHYSICIAN] - 09/13/24 8:45 am [facility],Cardiac [NON-STAFF] - 4 Weeks (You will receive a phone call in approximately 4-6 weeks for evaluation for cardiac rehab) [facility] [[facility]FF[facility] - 1-2 Days Jared Ogden DO [STAFF PHYSICIAN] - 08/27/24 9:45 am Phong Ortiz MD [STAFF PHYSICIAN] - 09/02/24 2:15 pm None,Stated [Primary Care Provider] - 1-2 days Ambulatory/Diagnostic Orders: XR chest 2V [RAD.AMB] Time Frame: 08/23/24, Facility: [facility], Location: [facility] Activity/Diet/Wound Care/Special Instructions: DISCHARGE INSTRUCTIONS: 1. No driving for 4 weeks, or until physician gives their ok. 2. The patient should sleep in their own bed, no medical bed needed. 3. Stairs are not an issue. If the bedroom is upstairs, it is advised that the patient go up at night and down in the morning for the first week. Go slowly, using handrail and take 1 step at a time. 4. BRYON hose are to be worn for 30 days post surgery or until physician discontinues. 5. Heart hugger is to be worn 100% of the time until physician discontinues.(except when showering) 6. No lifting, pushing, or pulling more than 10 pounds for 12 weeks. The physician will advise of any restriction changes. 7. The patient is expected to continue the prescribed walking program. 8. Continue pain control per as needed orders. 9. Continue with incentive spirometry and splinting/heart hugger until otherwise directed by the physician. 10. Must shower daily using liquid antibacterial soap 11. Routine sternal incision care. No powders, lotions, ointments on incisions. No dressings are necessary on incisions unless they are draining. Dermabond tape is to remain on sternal incision until surgeon follow-up. 12. Please call surgeon/LABORATORY CHIEF for temp greater than 101 F or purulent drainage from incisions. 13. You should weigh yourself daily, record and bring log with you to follow up appointments. 14. All prescriptions given by surgeon for 30 days. Refills need to be filled through meter shop supervisor/primary care physician. 15. A Red armband has been placed on the patient. It should be worn for 30 days post discharge from surgery and will be removed by the cardiac surgeons. If an ER visit is necessary, please make sure the number on the Red armband is called before going to ER. 16. You have been referred to and are expected to begin Cardiac Rehab in approximately 4-6 weeks. 17. Quitting smoking is the most important step you can take to improve your health. For additional information and assistance to quit smoking, please call the [place] tobacco quit line (2-072-ICJI-NOW/ ) or online: https://[email or web address].gov/[email or web address]/relp-sd-pymvhin/[email or web address]/tobacco/how-to-qu it-tobacco HOME HEALTH SERVICES TO PROVIDE: RN SKILLED HOME CARE SERVICES FOR POST-OP SURGICAL PATIENTS WITH THE FOLLOWING: Coronary Artery Bypass Surgery (CABG), Mitral Valve Replacement/Repair ( MVR), Aortic Valve Replacement/Repair (AVR) RN TO CONTINUE EDUCATION FROM ``ROAD TO A HEALTH HEART PATIENT EDUCATION MANUAL (GIVEN TO PATIENT IN THE HOSPITAL) MEDICATION RECONCILIATION WITH EDUCATION NEEDED ON FIRST HOME VISIT EMPHASIZE IMPORTANCE OF WEARING BREAST SUPPORT/HEART HUGGER ENCOURAGE USE OF INCENTIVE SPIROMETER 10 X EVERY HOUR WHILE AWAKE ENCOURAGE UTILIZATION OF LOWER EXTREMITY COMPRESSION STOCKINGS/BRYON HOSE and ELEVATE LEGS ABOVE LEVEL OF HEART WHILE AT REST. ENCOURAGE AMBULATION 3-5x/day INCREASING TOLERATES, WHILE AVOIDING EXTREMES IN TEMPERATURE FREQUENCY: RN TO OPEN THE PATIENT WITHIN 24 HOURS OF DISCHARGE FROM THE HOSPITAL WITH TELEHEALTH INSTALLED AT [facility], RN TO VISIT 2-3 X A WEEK FOR 4 WEEKS ESTABLISHED BY PATIENT NEEDS. LABORATORY: CBC, CMP TO BE DRAWN ON THE THIRD DAY HOME, (RAN STAT) FAX RESULTS TO [phone]. TELEHEALTH PARAMETERS: WEIGHT: NOTIFY MD OF WEIGHT GAIN OF 2 LBS IN 24 HOURS OR 5 LBS IN ONE WEEK HR: NOTIFY MD OF HR <55 BPM OR HR>100 BPM BP: NOTIFY MD IF BP <90/55 OR BP>140/100 O2 SAT: NOTIFY MD IF PO2<93% ON ROOM AIR SEND TELEHEALTH REPORT TO COBOL APPLICATION DEVELOPER AND CARDIOVASCULAR SURGEON THE FIRST WEEK OF CARE AND THEN BI-WEEKLY. PLEASE ADDITIONALLY COMMUNICATE ANY ABNORMALS AND NEW FINDINGS TO THE SURGEONS OFFICE. Discharge Disposition: HOME WITH HOME HEALTH SERVICES
== END 2024-08-19 11:38 | disposition home health service (06) ==
LOC: EC 23:30 → 3SCARD 08-18 06:25
PROVIDERS: ADMIT Thoracic Surgery (Cardiothoracic Vascular Surgery); ATTEND Thoracic Surgery (Cardiothoracic Vascular Surgery)
DX: I11.0 Hypertensive heart disease with heart failure (principal); I50.33 Acute on chronic diastolic (congestive) heart failure; I25.10 Atherosclerotic heart disease of native coronary artery without angina pectoris; I08.1 Rheumatic disorders of both mitral and tricuspid valves; I65.22 Occlusion and stenosis of left carotid artery; E11.9 Type 2 diabetes mellitus without complications; D64.9 Anemia, unspecified; D69.6 Thrombocytopenia, unspecified; R74.01 Elevation of levels of liver transaminase levels; F10.11 Alcohol abuse, in remission; F41.9 Anxiety disorder, unspecified; F31.9 Bipolar disorder, unspecified; E66.9 Obesity, unspecified; Z68.41 Body mass index [BMI] 40.0-44.9, adult; Z79.82 Long term (current) use of aspirin; Z79.02 Long term (current) use of antithrombotics/antiplatelets; Z79.899 Other long term (current) drug therapy; Z88.6 Allergy status to analgesic agent; Z87.891 Personal history of nicotine dependence; Z95.5 Presence of coronary angioplasty implant and graft; Z95.1 Presence of aortocoronary bypass graft
CPT/HCPCS: 36415; 71046; 80048; 80053; 83605; 83880; 84484; 85025; 85610; 85730; 93005; 96372; 96374; 96375; 96376; 99285

== ENCOUNTER 2024-08-22 06:59 | Emergency (ER) | payer BC ==
[2024-08-22 07:09] VITALS: TEMP 98.3
--- NOTE | 2024-08-22 07:16 | ED ---
General Adult HPI - General Chief complaint: Upper Respiratory Infection Stated complaint: SOB Time Seen by Provider: 08/22/24 07:00 Source: patient, family, EMS, RN notes reviewed Mode of arrival: EMS Limitations: no limitations - History of Present Illness Initial comments: Patient is a 49-year-old female present to the emergency department with diffi culty in breathing. Onset of symptoms was a little bit during the evening and more throughout the night. Patient has dyspnea that significantly worsens with exertion. Positive orthopnea. Minimal leg swelling. Patient has had similar symptoms recently and was in the hospital last week and improved with Lasix. Patient did have CABG less than 2 weeks ago. No calf pain. No fever. - Related Data Previous Rx's Medication Instructions Recorded Aspirin 81 mg PO DAILY tab 08/01/24 Acetaminophen Tab [Tylenol] 1,000 mg PO Q6HR PRN tab 08/13/24 Atorvastatin [Lipitor] 40 mg PO DAILY #30 tab 08/13/24 Clopidogrel [Plavix] 75 mg PO DAILY #30 tab 08/13/24 Metoprolol Tartrate [Lopressor] 25 mg PO BID #60 tab 08/13/24 Pantoprazole [Protonix] 40 mg PO DAILY #30 tab 08/13/24 Cephalexin [Keflex] 500 mg PO Q6HR #40 cap 08/14/24 Bumetanide [BUMEX] 1 mg PO DAILY #7 tab 08/19/24 Calcium Carbonate [Tums] 1,000 mg PO Q4HR PRN tab 08/19/24 Dapagliflozin Propanediol [Farxiga] 10 mg PO DAILY #30 tab 08/19/24 HYDROcodone/APAP 5-325MG [[place] 1 each PO Q6HR PRN #12 tab 08/19/24 5-325] Losartan [Cozaar] 12.5 mg PO DAILY #30 tab 08/19/24 Spironolactone [Aldactone] 12.5 mg PO DAILY #30 tab 08/19/24 Allergies Allergy/AdvReac Type Severity Reaction Status Date / Time capsaicin Allergy Rash/Hives/ Verified 08/18/24 07:24 Swelling Review of Systems ROS Statement: Those systems with pertinent positive or pertinent negative responses have been documented in the HPI. ROS Other: All systems not noted in ROS Statement are negative. Constitutional: Denies: fever Eyes: Denies: eye pain ENT: Denies: ear pain Respiratory: Reports: as per HPI, dyspnea Cardiovascular: Reports: dyspnea on exertion, orthopnea. Denies: chest pain Endocrine: Reports: fatigue Gastrointestinal: Denies: abdominal pain Musculoskeletal: Denies: back pain Past Medical History Past Medical History: Coronary Artery Disease (CAD), Diabetes Mellitus, Hypertension, Osteoarthritis (OA), Skin Disorder Additional Past Medical History / Comment(s): KIDNEY STONES, diet controlled diabetic-no longer needs med, no longer needs BP med, seasonal allergies, abscess right breast, left breast hx. of abscess, yeast in skin fold in abd. cabg aug 09 2024. History of Any Multi-Drug Resistant Organisms: None Reported Past Surgical History: Appendectomy, Breast Surgery, Cholecystectomy, Coronary Bypass/CABG, Heart Catheterization With Stent, Orthopedic Surgery, Tubal Ligation Additional Past Surgical History / Comment(s): carpal tunnel RIGHT WRIST, dental, abcess drainage left breast x2 (July 2016, March 2019, Aug 2019); RT breast I&D 05/22/21, 06/05/21; Left ankle surgery. Past Anesthesia/Blood Transfusion Reactions: No Reported Reaction, Family History of Problems w/ Anesthesia Additional Past Anesthesia/Blood Transfusion Reaction / Comment(s): No blood tra nsfusion to date, mom stopped breathing during a surg. & had to be resuscitated Date of Last Stent Placement:: 07/30/24 Past Psychological History: Anxiety, Bipolar, Depression Smoking Status: Former smoker Past Alcohol Use History: None Reported Past Drug Use History: Marijuana - Past Family History Mother Family Medical History: Cancer Additional Family Medical History / Comment(s): CERVICAL CANCER Father Family Medical History: Unable to Obtain Additional Family Medical History / Comment(s): Patient did not know her father General Exam Limitations: no limitations General appearance: alert, in no apparent distress Head exam: Present: normocephalic Eye exam: Present: normal appearance Neck exam: Present: normal inspection Respiratory exam: Present: normal lung sounds bilaterally Cardiovascular Exam: Present: regular rate, normal rhythm GI/Abdominal exam: Present: soft. Absent: tenderness Extremities exam: Present: pedal edema (Trace bilateral). Absent: calf tenderness Neurological exam: Present: alert Psychiatric exam: Present: normal affect, normal mood Skin exam: Present: normal color Course Vital Signs 08/22/24 08/22/24 08/22/24 07:02 07:40 08:33 Temperature 98.3 F Pulse Rate 80 79 75 Respiratory 18 20 18 Rate Blood Pressure 119/69 137/83 106/67 O2 Sat by Pulse 93 L 95 93 L Oximetry EKG Findings - EKG Results: EKG: interpreted by ERMD (Q wave V1 V2. Borderline T wave inversion lateral.), sinus rhythm, normal axis Medical Decision Making - Medical Decision Making Was pt. sent in by a medical professional or institution (, ANDREW, LINUX SYSTEMS ENGINEER, urgent care, hospital, or detention...) When possible be specific @ -No Did you speak to anyone other than the patient for history (EMS, parent, family, police, friend...)? What history was obtained from this source @ -Family is present and helps provide additional history including recent CABG Did you review nursing and triage notes (agree or disagree)? Why? @ -I reviewed and agree with nursing and triage notes Were old charts reviewed (outside hosp., previous admission, EMS record, old EKG, old radiological studies, urgent care reports/EKG's, detention records)? Report findings @ -Previous admission reviewed Differential Diagnosis (chest pain, altered mental status, abdominal pain women, abdominal pain men, vaginal bleeding, weakness, fever, dyspnea, syncope, headache, dizziness, GI bleed, back pain, seizure, CVA, palpatations, mental health, musculoskeletal)? @ -Differential Dyspnea: Coronary syndrome, arrhythmia, tamponade, asthma, COPD, pulmonary embolism, pneumonia, pneumothorax, pulmonary effusion, anaphylaxis, diabetic ketoacidosis, flailed chest, pulmonary contusion, diaphragmatic rupture, anemia, neuromuscular, this is not meant to be an all-inclusive list. EKG interpreted by me (3pts min.). @ -As above X-rays interpreted by me (1pt min.). @ -X-ray shows some pleural effusion CT interpreted by me (1pt min.). @ -None done U/S interpreted by me (1pt. min.). @ -Sound also shows some pleural effusion What testing was considered but not performed or refused? (CT, X-rays, U/S, labs)? Why? @ -None What meds were considered but not given or refused? Why? @ -None Did you discuss the management of the patient with other professionals (professionals i.e. , PA, LINUX SYSTEMS ENGINEER, lab, RT, psych nurse, social work job titles, dry chain puller, teacher, antisubmarine weapons officer, complex case manager)? Give summary @ -Case discussed with practitioner Katelin with cardiothoracic who does request ultrasound for potential thoracentesis otherwise discharge. Case also discussed with Dr. Pizano who will provide thoracentesis and will follow-up with the other side of thoracentesis in the office this week Was smoking cessation discussed for >3mins.? @ -No Was critical care preformed (if so, how long)? @ -No Were there social determinants of health that impacted care today? How? (Homelessness, low income, unemployed, alcoholism, drug addiction, transportation, low edu. Level, literacy, decrease access to med. care, retirement, rehab)? @ -No Was there de-escalation of care discussed even if they declined (Discuss DNR or withdrawal of care, Hospice)? DNR status @ -No What co-morbidities impacted this encounter? (DM, HTN, Smoking, COPD, CAD, Cancer, CVA, ARF, Chemo, Hep., AIDS, mental health diagnosis, sleep apnea, morbid obesity)? @ -CABG Was patient admitted / discharged? Hospital course, mention meds given and route, prescriptions, significant lab abnormalities, going to OR and other pertinent info. @ -Patient presents with dyspnea and pleural effusions. Patient will have thoracentesis done on 1 side and discharged for follow-up for the other side this week. Undiagnosed new problem with uncertain prognosis? @ -No Drug Therapy requiring intensive monitoring for toxicity (Heparin, Nitro, Insulin, Cardizem)? @ -No Were any procedures done? @ -No Diagnosis/symptom? @ -Pleural effusion Acute, or Chronic, or Acute on Chronic? @ -Acute Uncomplicated (without systemic symptoms) or Complicated (systemic symptoms)? @ -Default Side effects of treatment? @ -No Exacerbation, Progression, or Severe Exacerbation? @ -No Poses a threat to life or bodily function? How? (Chest pain, [place], [place], pneumonia, PE, COPD, DKA, ARF, appy, cholecystitis, CVA, Diverticulitis, Homicidal, Suicidal, threat to staff... and all critical care pts) @ -Threat to pulmonary and cardiac function - Lab Data Result diagrams: 08/22/24 07:24 08/22/24 07:24 Lab Results 08/22/24 08/22/24 08/22/24 Range/Units 07:24 07:24 07:24 WBC 9.5 (3.8-10.6) k/uL RBC 3.05 L (3.80-5.40) m/uL Hgb 9.2 L (11.4-16.0) gm/dL Hct 27.9 L (34.0-46.0) % MCV 91.5 (80.0-100.0) fL MCH 30.0 (25.0-35.0) pg MCHC 32.8 (31.0-37.0) g/dL RDW 17.3 H (11.5-15.5) % Plt Count 257 (150-450) k/uL MPV 10.0 Neutrophils % 66 % Lymphocytes % 15 % Monocytes % 8 % Eosinophils % 8 % Basophils % 1 % Neutrophils # 6.3 (1.3-7.7) k/uL Lymphocytes # 1.5 (1.0-4.8) k/uL Monocytes # 0.7 (0-1.0) k/uL Eosinophils # 0.8 H (0-0.7) k/uL Basophils # 0.1 (0-0.2) k/uL Hypochromasia Moderate Poikilocytosis Marked Anisocytosis Slight PT 12.8 H (10.0-12.5) sec INR 1.2 H (<1.2) APTT 27.7 (22.0-30.0) sec Sodium 137 (137-145) mmol/L Potassium 3.8 (3.5-5.1) mmol/L Chloride 101 (98-107) mmol/L Carbon Dioxide 29 (22-30) mmol/L Anion Gap 7 mmol/L BUN 14 (7-17) mg/dL Creatinine 0.75 (0.52-1.04) mg/dL Est GFR (CKD-EPI)AfAm >90 (>60 ml/min/1.73 sqM) Est GFR (CKD-EPI)NonAf >90 (>60 ml/min/1.73 sqM) Glucose 169 H (74-99) mg/dL Plasma Lactic Acid Tristin (0.7-2.0) mmol/L Calcium 8.2 L (8.4-10.2) mg/dL Magnesium 1.9 (1.6-2.3) mg/dL Total Bilirubin 2.6 H (0.2-1.3) mg/dL AST 52 H (14-36) U/L ALT 26 (4-34) U/L Alkaline Phosphatase 114 (38-126) U/L Troponin I (0.000-0.034) ng/mL NT-Pro-B Natriuret Pep 758 pg/mL Total Protein 6.3 (6.3-8.2) g/dL Albumin 3.2 L (3.5-5.0) g/dL 08/22/24 08/22/24 Range/Units 07:24 07:24 WBC (3.8-10.6) k/uL RBC (3.80-5.40) m/uL Hgb (11.4-16.0) gm/dL Hct (34.0-46.0) % MCV (80.0-100.0) fL MCH (25.0-35.0) pg MCHC (31.0-37.0) g/dL RDW (11.5-15.5) % Plt Count (150-450) k/uL MPV Neutrophils % % Lymphocytes % % Monocytes % % Eosinophils % % Basophils % % Neutrophils # (1.3-7.7) k/uL Lymphocytes # (1.0-4.8) k/uL Monocytes # (0-1.0) k/uL Eosinophils # (0-0.7) k/uL Basophils # (0-0.2) k/uL Hypochromasia Poikilocytosis Anisocytosis PT (10.0-12.5) sec INR (<1.2) APTT (22.0-30.0) sec Sodium (137-145) mmol/L Potassium (3.5-5.1) mmol/L Chloride (98-107) mmol/L Carbon Dioxide (22-30) mmol/L Anion Gap mmol/L BUN (7-17) mg/dL Creatinine (0.52-1.04) mg/dL Est GFR (CKD-EPI)AfAm (>60 ml/min/1.73 sqM) Est GFR (CKD-EPI)NonAf (>60 ml/min/1.73 sqM) Glucose (74-99) mg/dL Plasma Lactic Acid [place] 1.5 (0.7-2.0) mmol/L Calcium (8.4-10.2) mg/dL Magnesium (1.6-2.3) mg/dL Total Bilirubin (0.2-1.3) mg/dL AST (14-36) U/L ALT (4-34) U/L Alkaline Phosphatase (38-126) U/L Troponin I 0.133 H* (0.000-0.034) ng/mL NT-Pro-B Natriuret Pep pg/mL Total Protein (6.3-8.2) g/dL Albumin (3.5-5.0) g/dL Disposition Clinical Impression: Pleural effusion Disposition: HOME SELF-CARE Condition: Stable Instructions (If sedation given, give patient instructions): Pleural Effusion (DC) Additional Instructions: Please follow-up with Dr. Pizano this week for thoracentesis on the other side. Please follow-up with your string winding machine operator and cardiothoracic surgeon as planned. Please follow-up with your primary care physician in the next couple of days for recheck. Return for fever, difficulty breathing, pain, worsening or changing symptoms or other concerns. Is patient prescribed a controlled substance at d/c from ED?: No Referrals: Daljit Morales MD [STAFF PHYSICIAN] - 1-2 days Katelin Moy NPC [Nurse Practitioner] - 1-2 days Song Pizano DO [Doctor of Osteopathic Medicine] - 1-2 days Calvin Lamb MD [STAFF PHYSICIAN] - 1-2 days Time of Disposition: 11:39
[2024-08-22] MEDS: NITROGLYCERIN OINT 1 INCH/GM PACKET TOPICAL STA (07:29)
[2024-08-22] MEDS: FUROSEMIDE 10 MG/ML 4 ML VIAL IV STA (07:29)
[2024-08-22 07:42] LABS: Anisocytosis Slight; Basophils # (A) 0.1 k/uL (0-0.2); Basophils % (A) 1 %; Eosinophils # (A) 0.8 k/uL (0-0.7); Eosinophils % (A) 8 %; HCT 27.9 % (34.0-46.0); HGB 9.2 gm/dL (11.4-16.0); Hypochromasia Moderate; Lymphocytes # (A) 1.5 k/uL (1.0-4.8); Lymphocytes % (A) 15 %; MCHC 32.8 g/dL (31.0-37.0); MCV 91.5 fL (80.0-100.0); Monocytes # (A) 0.7 k/uL (0-1.0); Monocytes % (A) 8 %; Neutrophils # (A) 6.3 k/uL (1.3-7.7); Neutrophils % (A) 66 %; Platelet Count 257 k/uL (150-450); Poikilocytosis Marked; RBC 3.05 m/uL (3.80-5.40); RDW 17.3 % (11.5-15.5); WBC 9.5 k/uL (3.8-10.6)
[2024-08-22 07:56] LABS: INR 1.2 (<1.2); Partial Thromboplastin Time 27.7 sec (22.0-30.0); Prothrombin Time 12.8 sec (10.0-12.5)
[2024-08-22 08:05] LABS: ALT 26 U/L (4-34); AST 52 U/L (14-36); African American GFR (CKD) >90 (>60 ml/min/1.73 sqM); Albumin 3.2 g/dL (3.5-5.0); Alkaline Phosphatase 114 U/L (38-126); Anion Gap 7 mmol/L; Blood Urea Nitrogen 14 mg/dL (7-17); Calcium 8.2 mg/dL (8.4-10.2); Carbon Dioxide 29 mmol/L (22-30); Chloride 101 mmol/L (98-107); Glucose 169 mg/dL (74-99); Magnesium 1.9 mg/dL (1.6-2.3); Non-African American GFR(CKD) >90 (>60 ml/min/1.73 sqM); Potassium 3.8 mmol/L (3.5-5.1); Sodium 137 mmol/L (137-145); Total Bilirubin 2.6 mg/dL (0.2-1.3); Total Protein 6.3 g/dL (6.3-8.2)
--- NOTE | 2024-08-22 08:11 | XR ---
EXAMINATION TYPE: XR chest 2V DATE OF EXAM: 08/22/2024 COMPARISON: 07/19/2024 INDICATION: Difficulty breathing TECHNIQUE: Frontal and lateral views of the chest are obtained. FINDINGS: The heart size is normal. The pulmonary vasculature is normal. Bilateral pleural effusions are present.. Exam is stable varus and IMPRESSION: 1. Small bilateral pleural effusions [facility], , 08/22/2024 8:09 AM
[2024-08-22 08:14] LABS: NT-Pro-B-Type Natriuretic Pept 758 pg/mL
[2024-08-22] MEDS: FUROSEMIDE 10 MG/ML 2 ML VIAL IV ONE (08:52)
--- NOTE | 2024-08-22 10:10 | US ---
EXAMINATION TYPE: US chest DATE OF EXAM: 08/22/2024 COMPARISON: NONE CLINICAL INDICATION: Female, 49 years old with history of effusion; TECHNIQUE: Targeted ultrasound of the posterior lower bilateral hemithoraces EXAM MEASUREMENTS: Right Pleural Effusion pocket size: 11.5 cm Right skin surface to fluid distance: 3.8 cm Left Pleural Effusion pocket size: 12.6 cm Left skin surface to fluid distance: 4.2 cm Right side marked for possible thoracentesis outside the dept. Left side marked for possible thoracentesis outside the dept. Pulmonologists are able to review the images in the patient?s EMR. IMPRESSIONS: 1. Bilateral pleural effusions [facility], , 08/22/2024 10:08 AM
[2024-08-22] MEDS: ONDANSETRON ODT 4 MG TAB PO STA (10:38)
--- NOTE | 2024-08-22 12:02 | XR ---
EXAMINATION TYPE: XR chest 1V portable DATE OF EXAM: 08/22/2024 COMPARISON: 08/22/2024 INDICATION: Short of breath post left thoracentesis TECHNIQUE: Single frontal view of the chest is obtained. FINDINGS: The heart size is normal. The pulmonary vasculature is normal. Small bilateral pleural effusions are present. No pneumothorax is evident. IMPRESSION: 1. No pneumothorax post left thoracentesis. [facility], , 08/22/2024 12:00 PM
[2024-08-22 12:51] VITALS: BP 113/63; PULSE 78; RESP 20
--- NOTE | 2024-08-22 13:19 | PCN ---
PROCEDURE NOTE PROCEDURE: Left-sided thoracentesis. PREOPERATIVE DIAGNOSIS: Left pleural effusion. POSTOPERATIVE DIAGNOSIS: Left pleural effusion. There was informed consent and universal timeout. The patient's procedure took place in the emergency department, room 24. The drawing machine operator was Dr. Pizano. He was assisted by Frances Wells RN. The left posterior chest was marked by ultrasound. Indication Pleural effusion. A time-out was completed verifying correct patient, procedure, site, positioning , and implant (s) or special equipment if applicable. Ultrasound guidance was used and appropriate fluid pocket was identified and marked. Patient was positioned, prepped and draped in usual sterile fashion. Lidocaine was used to anesthetize the area. A Thoracentesis catheter was introduced into the pleural space and fluid was removed. Blood loss was none. A chest x-ray was ordered to evaluate for pneumothorax. Total Fluid Removed: Roughly 1050 cc. Color of Fluid: Bloody fluid was removed from the left pleural space. Patient tolerated the procedure well. There was no immediate complication. A followup chest x- ray will be ordered. Fluid will be sent for analysis including cytology, microbiology, and chemistry. Patient tolerated the procedure well and there were no complications. MMODL / IJN: [id number] /
[2024-08-22 23:57] LABS: Appearance,BF Grossly Bloody (Clear)
[2024-08-23 08:36] LABS: Glucose, BF Source Pleural Fluid; Glucose, Body Fluid 145 mg/dL; LDH, Body Fluid Source Pleural Fluid; T. Protein, Body Fluid Source Pleural Fluid; Total Protein, Body Fluid >3600 mg/dL
== END 2024-08-22 13:03 | disposition home or self-care (01) ==
LOC: EC 06:59
DX: J90 Pleural effusion, not elsewhere classified (principal); Z87.891 Personal history of nicotine dependence; Z88.8 Allergy status to other drugs, medicaments and biological substances
CPT/HCPCS: 99285 ×2; 96374 ×2; 96376 ×2; 36415; 93005; 87798 ×3; 87496; 87498; 87529; 88108; 88305; 83880; 80053; 89050; 83605; 83735; 84484; 85025; 85610; 85730; 87502; 87634; 87070; 87205; 87116; 87102; 87206; 82945; 83615; 84157; 87635; 71045; 71046; 76604; 32554; J1940 ×2

== ENCOUNTER 2024-08-23 18:42 | Observation (INO) | payer BC ==
--- NOTE | 2024-08-23 19:32 | XR ---
EXAMINATION TYPE: XR chest 2V DATE OF EXAM: 08/23/2024 COMPARISON: 08/22/2024 HISTORY: Dyspnea TECHNIQUE: Frontal and lateral views of the chest are obtained. FINDINGS: There has been prior CABG surgery. There is been no change in the bilateral pleural effusions.. Heart size is within normal limits for the technique. The pulmonary vasculature is not grossly [place] IMPRESSION: No change in the small bilateral pleural effusions. [facility], Workstation: [id number] 08/23/2024 7:29 PM
--- NOTE | 2024-08-23 19:46 | ED ---
General Adult HPI - General Chief complaint: Shortness of Breath Stated complaint: SOB Time Seen by Provider: 08/23/24 18:50 Source: EMS Mode of arrival: EMS Limitations: no limitations - History of Present Illness Initial comments: Dictation was produced using [employer] dictation software. please excuse any grammatical, word or spelling errors. Chief Complaint: 49-year-old female presents to the emergency department with shortness of breath History of Present Illness: Patient is a 49-year-old female 2 weeks she had CABG performed by Dr. Ortiz. She was here in the emergency department yesterday where she had a pleural effusion drained by pulmonology. She was supposed to have a follow-up appointment in the pulmonology office for outpatient thor acentesis however it felt like she could not wait. Yesterday she had the left- sided drain. She feels symptomatic on the right side. Patient denies any cough. Denies any constitutional symptoms. Patient does report some associated right lateral thoracic pleurisy The ROS documented in this emergency department record has been reviewed and confirmed by me. Those systems with pertinent positive or negative responses have been documented in the HPI. All other systems are other negative and/or noncontributory. - Related Data Previous Rx's Medication Instructions Recorded Aspirin 81 mg PO DAILY tab 08/01/24 Acetaminophen Tab [Tylenol] 1,000 mg PO Q6HR PRN tab 08/13/24 Atorvastatin [Lipitor] 40 mg PO DAILY #30 tab 08/13/24 Clopidogrel [Plavix] 75 mg PO DAILY #30 tab 08/13/24 Metoprolol Tartrate [Lopressor] 25 mg PO BID #60 tab 08/13/24 Pantoprazole [Protonix] 40 mg PO DAILY #30 tab 08/13/24 Cephalexin [Keflex] 500 mg PO Q6HR #40 cap 08/14/24 Bumetanide [BUMEX] 1 mg PO DAILY #7 tab 08/19/24 Calcium Carbonate [Tums] 1,000 mg PO Q4HR PRN tab 08/19/24 Dapagliflozin Propanediol [Farxiga] 10 mg PO DAILY #30 tab 08/19/24 HYDROcodone/APAP 5-325MG [[place] 1 each PO Q6HR PRN #12 tab 08/19/24 5-325] Losartan [Cozaar] 12.5 mg PO DAILY #30 tab 08/19/24 Spironolactone [Aldactone] 12.5 mg PO DAILY #30 tab 08/19/24 Allergies Allergy/AdvReac Type Severity Reaction Status Date / Time capsaicin Allergy Rash/Hives/ Verified 08/23/24 18:50 Swelling Review of Systems ROS Statement: Those systems with pertinent positive or pertinent negative responses have been documented in the HPI. ROS Other: All systems not noted in ROS Statement are negative. Past Medical History Past Medical History: Coronary Artery Disease (CAD), Diabetes Mellitus, Hypertension, Osteoarthritis (OA), Skin Disorder Additional Past Medical History / Comment(s): KIDNEY STONES, diet controlled diabetic-no longer needs med, no longer needs BP med, seasonal allergies, abscess right breast, left breast hx. of abscess, yeast in skin fold in abd. cabg aug 09 2024. History of Any Multi-Drug Resistant Organisms: None Reported Past Surgical History: Appendectomy, Breast Surgery, Cholecystectomy, Coronary Bypass/CABG, Heart Catheterization With Stent, Orthopedic Surgery, Tubal Ligation Additional Past Surgical History / Comment(s): carpal tunnel RIGHT WRIST, dental, abcess drainage left breast x2 (July 2016, March 2019, Aug 2019); RT breast I&D 05/22/21, 06/05/21; Left ankle surgery. Past Anesthesia/Blood Transfusion Reactions: No Reported Reaction, Family History of Problems w/ Anesthesia Additional Past Anesthesia/Blood Transfusion Reaction / Comment(s): No blood transfusion to date, mom stopped breathing during a surg. & had to be resuscitated Date of Last Stent Placement:: 07/30/24 Past Psychological History: Anxiety, Bipolar, Depression Smoking Status: Former smoker Past Alcohol Use History: None Reported Past Drug Use History: Marijuana - Past Family History Mother Family Medical History: Cancer Additional Family Medical History / Comment(s): CERVICAL CANCER Father Family Medical History: Unable to Obtain Additional Family Medical History / Comment(s): Patient did not know her father General Exam - General Exam Comments Initial Comments: PHYSICAL EXAM: General Impression: Alert and oriented x3, not in acute distress HEENT: Normocephalic atraumatic, extra-ocular movements intact, pupils equal and reactive to light bilaterally, mucous membranes moist. Cardiovascular: Heart regular rate and rhythm Chest: Able to complete full sentences, no retractions, no tachypnea Abdomen: abdomen soft, non-tender, non-distended, no organomegaly Musculoskeletal: Pulses present and equal in all extremities, no peripheral edema Motor: no focal deficits noted Neurological: CN II-XII grossly intact, no focal motor or sensory deficits noted Skin: Intact with no visualized rashes Psych: Normal affect and mood Limitations: no limitations Course Vital Signs 08/23/24 18:44 Temperature 99.5 F Pulse Rate 84 Respiratory 20 Rate Blood Pressure 92/50 O2 Sat by Pulse 100 Oximetry Medical Decision Making - Medical Decision Making Was pt. sent in by a medical professional or institution (, PA, WHEEL AND PINION INSPECTOR, urgent care, hospital, or penitentiary...) When possible be specific @ -No Did you speak to anyone other than the patient for history (EMS, parent, family, police, friend...)? What history was obtained from this source @ -No Did you review nursing and triage notes (agree or disagree)? Why? @ -I reviewed and agree with nursing and triage notes Were old charts reviewed (outside hosp., previous admission, EMS record, old EKG, old radiological studies, urgent care reports/EKG's, penitentiary records)? Report findings @ -Procedure note was reviewed from yesterday showing patient had thoracentesis Differential Diagnosis (chest pain, altered mental status, abdominal pain women, abdominal pain men, vaginal bleeding, musculoskeletal, weakness, fever, dyspnea, syncope, headache, dizziness, GI bleed, back pain, seizure, CVA, palpatations, mental health)? @ -Differential Dyspnea: Coronary syndrome, arrhythmia, tamponade, asthma, COPD, pulmonary embolism, pneumonia, pneumothorax, pulmonary effusion, anaphylaxis, diabetic ketoacidosis, flailed chest, pulmonary contusion, diaphragmatic rupture, anemia, neuromuscular, this is not meant to be an all-inclusive list. EKG interpreted by me (3pts min.). @ -None done X-rays interpreted by me (1pt min.). @ -Chest x-ray shows bilateral pleural effusion CT interpreted by me (1pt min.). @ -None done U/S interpreted by me (1pt. min.). @ -None done What testing was considered but not performed or refused? (CT, X-rays, U/S, labs)? Why? @ -None What meds were considered but not given or refused? Why? @ -None Was smoking cessation discussed for >3mins.? @ -No Were there social determinants of health that impacted care today? How? (Homelessness, low income, unemployed, alcoholism, drug addiction, transportation, low edu. Level, literacy, decrease access to med. care, residential, rehab)? @ -No Was there de-escalation of care discussed even if they declined (Discuss DNR or withdrawal of care, Hospice)? DNR status @ -No What co-morbidities impacted this encounter? (DM, HTN, Smoking, COPD, CAD, Cancer, CVA, ARF, Chemo, Hep., AIDS, mental health diagnosis, sleep apnea, morb id obesity)? @ -Recent CABG Was patient admitted / discharged? Hospital course, mention meds given and route, prescriptions, significant lab abnormalities, going to OR and other pertinent info. @ -49-year-old female presents again for the second day for shortness of breath. She has known pleural effusion. Vital signs stable. Patient supposed to be scheduled for outpatient thoracentesis of the right chest. The left chest was drained yesterday. Case discussed with Katelin who requested patient be admitted observation under Dr. Ortiz with plans for thoracentesis tomorrow. Did you discuss the management of the patient with other professionals (professionals i.e. , PA, WHEEL AND PINION INSPECTOR, lab, RT, psych nurse, social work msw, entry level java developer, teacher, animal services officer, case assembler)? Give summary @ -See above Was critical care preformed (if so, how long)? @ -No Undiagnosed new problem with uncertain prognosis? @ -No Drug Therapy requiring intensive monitoring for toxicity (Heparin, Nitro, Insulin, Cardizem)? @ -No Were any procedures done? @ -No Diagnosis/symptom? Acute, or Chronic, or Acute on Chronic? Uncomplicated (without systemic symptoms) or Complicated (systemic symptoms)? @ -Pleural effusion complicated by dyspnea Side effects of treatment? @ -No Exacerbation, Progression, or Severe Exacerbation? @ -No Poses a threat to life or bodily function? How? (Chest pain, USA, PA, pneumonia, PE, COPD, DKA, ARF, appy, cholecystitis, CVA, Diverticulitis, Homicidal, Suicidal, threat to staff... and all critical care pts) @ -yes Disposition Clinical Impression: Pleural effusion Disposition: ADMITTED IP TO THIS HOSP Condition: Fair Referrals: None,Stated [Primary Care Provider] - 1-2 days Decision Time: 19:53
[2024-08-23] MEDS ORDERED: NALOXONE 0.4 MG/ML 1 ML VIAL IV PRN (19:48)
[2024-08-23] MEDS: SODIUM CHLORIDE 0.9% 1,000 ML IV SCH (19:53)
[2024-08-23] MEDS: HYDROcodone/APAP 5-325MG 1 EACH TAB PO STA (20:15)
[2024-08-23] MEDS: FUROSEMIDE 10 MG/ML 4 ML VIAL IV SCH (20:15)
[2024-08-23 20:28] LABS: Anisocytosis Slight; Basophils % (A) 0 %; Eosinophils # (A) 0.9 k/uL (0-0.7); Eosinophils % (A) 9 %; HCT 29.8 % (34.0-46.0); HGB 9.2 gm/dL (11.4-16.0); Hypochromasia Marked; Lymphocytes # (A) 1.7 k/uL (1.0-4.8); Lymphocytes % (A) 18 %; MCH 28.6 pg (25.0-35.0); MCHC 30.7 g/dL (31.0-37.0); Mean Platelet Volume 9.3; Monocytes # (A) 0.8 k/uL (0-1.0); Monocytes % (A) 9 %; Neutrophils % (A) 62 %; Platelet Count 268 k/uL (150-450); Poikilocytosis Moderate; RDW 16.3 % (11.5-15.5); WBC 9.6 k/uL (3.8-10.6)
[2024-08-23 20:34] LABS: African American GFR (CKD) >90 (>60 ml/min/1.73 sqM); Anion Gap 5 mmol/L; Blood Urea Nitrogen 16 mg/dL (7-17); Calcium 8.3 mg/dL (8.4-10.2); Carbon Dioxide 30 mmol/L (22-30); Chloride 101 mmol/L (98-107); Glucose 140 mg/dL (74-99); Non-African American GFR(CKD) 88 (>60 ml/min/1.73 sqM); Potassium 3.5 mmol/L (3.5-5.1); Sodium 136 mmol/L (137-145)
[2024-08-23 20:43] LABS: NT-Pro-B-Type Natriuretic Pept 718 pg/mL
[2024-08-23] MEDS ORDERED: CALCIUM CARBONATE 500 MG CHEWABLE PO PRN (22:59)
[2024-08-23] MEDS: HYDROcodone/APAP 5-325MG 1 EACH TAB PO SCH (23:07)
--- NOTE | 2024-08-24 08:43 | XR ---
EXAMINATION TYPE: XR chest 1V portable DATE OF EXAM: 08/24/2024 COMPARISON: 08/23/2024 HISTORY: Shortness of breath TECHNIQUE: Single frontal view of the chest is obtained. FINDINGS: Heart size stable. Poststernotomy changes noted. Bilateral consolidation and pleural effus ion. No pneumothorax. Osseous structures are stable IMPRESSION: Bilateral lung consolidation and small effusion. Improving interstitial pattern. Correla te for improving CHF. Otherwise consider pneumonia. [facility], , 08/24/2024 8:41 AM
[2024-08-24] MEDS ORDERED: BUMETANIDE 1 MG TAB PO SCH (09:00)
[2024-08-24] MEDS ORDERED: SPIRONOLACTONE 25 MG TAB PO SCH (09:00)
[2024-08-24] MEDS: ATORVASTATIN 40 MG TAB PO SCH (09:07)
--- NOTE | 2024-08-24 09:07 | P.GSHP ---
History of Present Illness H&P Date: 08/24/24 Chief Complaint: Shortness of breath HISTORY OF PRESENT ILLNESS AND DISCHARGE SUMMARY: This is a 49-year-old female who does not follow on an outpatient basis with a primary care provider, although she did establish with a new primary who she is supposed to see this afternoon. She was hospitalized 07/29/24 with unstable angina. She underwent heart catheterization 07/30/24 with drug-eluting stent placed to the ramus intermedius, there was notation that Dr. Ogden was unable to get a stent past the ostium of the circumflex which did have a 99% blockage. At that time she also had a transthoracic echocardiogram demonstrating normal left ventricular systolic function with EF 55 to 60%, mild mitral and tricuspid regurgitation. She was discharged to home on August 01, 2024 and was feeling good for about 24 hours when she developed pain under her left axilla which spread medially. This time she also endorsed shortness of breath, nausea, cold sweats, and significant anxiety. She presented back to the emergency room at [facility] 08/02/24. Lab work revealed mildly elevated troponins, she was kept inpatient and taken back to the [facility] which revealed complex anatomy including trifurcation and severe angulation of takeoff of the circumflex with 120 degree takeoff, severe calcification at the level of the distal main into the circumflex coronary artery. IVUS demonstrated significant left main disease as well as calcified plaque. There was concern for high risk of shifting plaque into the LAD or circumflex or dissection with intervention of the circumflex, therefore consultation was placed to cardiothoracic surgery for revascularization recommendations. She was seen by Dr. Lan and scheduled for urgent off-pump CABG on August 09, 2024. Her postoperative recovery was uneventful and she was discharged to home with home health care on postoperative day #4. She was seen for follow-up in the surgery clinic with complaints of some mild shortness of breath leading to panic attacks. She was prescribed Lasix, she took 1 dose however later in the evening she felt more short of breath so she presented to [facility] emergency room for evaluation and treatment. She was placed in observation, diuresed with Lasix first then Bumex and Aldactone. Follow-up chest x-ray demonstrated continued bilateral pleural effusions but improvement from prior. She reported feeling much better. Her oxygen was titrated down, she was tolerating oral diet, her pain was controlled, and she was ready to be discharged to home with [facility]. She received written and verbal instruction regarding her medications, activity restrictions, signs and symptoms requiring physician notification, and follow-up appointments. She also was given a prescription to obtain an x-ray on Friday, August 23, 2024. Unfortunately she did not feel she could wait until August 23 and came into the emergency room including [place] on August 22 with complaints of shortness of breath. Chest x-ray revealed bilateral pleural effusions, chest ultrasound revealed fluid pockets bilaterally and she underwent left-sided thoracentesis by Dr. Pizano with removal of 1 L of bloody fluid. Follow-up chest x-ray was stable. She was discharged home with plans for right sided thoracentesis this week. Unfortunately she did not feel she could wait and came back to the emergency room again yesterday evening. This morning she underwent right sided thoracentesis by Dr. Dhillon with removal of 900 mL bloody fluid. Follow-up chest x-ray was satisfactory although she does have a bit of reaccumulation on the left side. She is to be discharged to home on current medication regimen with the addition of a Medrol Dosepak at Dr. Dhillon's recommendations. We will schedule her in the next 24 to 48 hours for elective outpatient left sided repeat thoracentesis. This was discussed with the patient and her . - Cardiovascular Cardiovascular: Reports shortness of breath Past Medical History Past Medical History: Coronary Artery Disease (CAD), Diabetes Mellitus, Hyp ertension, Osteoarthritis (OA), Skin Disorder Additional Past Medical History / Comment(s): KIDNEY STONES, diet controlled diabetic-no longer needs med, no longer needs BP med, seasonal allergies, abscess right breast, left breast hx. of abscess, yeast in skin fold in abd. c abg aug 09 2024. History of Any Multi-Drug Resistant Organisms: None Reported Past Surgical History: Appendectomy, Breast Surgery, Cholecystectomy, Coronary Bypass/CABG, Heart Catheterization With Stent, Orthopedic Surgery, Tubal Ligation Additional Past Surgical History / Comment(s): carpal tunnel RIGHT WRIST, dental, abcess drainage left breast x2 (July 2016, March 2019, Aug 2019); RT breast I&D 05/22/21, 06/05/21; Left ankle surgery. Past Anesthesia/Blood Transfusion Reactions: No Reported Reaction, Family History of Problems w/ Anesthesia Additional Past Anesthesia/Blood Transfusion Reaction / Comment(s): No blood transfusion to date, mom stopped breathing during a surg. & had to be resuscitated Date of Last Stent Placement:: 07/30/24 Past Psychological History: Anxiety, Bipolar, Depression Smoking Status: Former smoker Past Alcohol Use History: None Reported Past Drug Use History: Marijuana - Past Family History Mother Family Medical History: Cancer Additional Family Medical History / Comment(s): CERVICAL CANCER Father Family Medical History: Unable to Obtain Additional Family Medical History / Comment(s): Patient did not know her father Medications and Allergies Home Medications Medication Instructions Recorded Confirmed Type Aspirin 81 mg PO DAILY tab 08/01/24 08/23/24 Rx Atorvastatin [Lipitor] 40 mg PO DAILY #30 tab 08/13/24 08/23/24 Rx Clopidogrel [Plavix] 75 mg PO DAILY #30 tab 08/13/24 08/23/24 Rx Metoprolol Tartrate [Lopressor] 25 mg PO BID #60 tab 08/13/24 08/23/24 Rx Bumetanide [BUMEX] 1 mg PO DAILY #7 tab 08/19/24 08/23/24 Rx Calcium Carbonate [Tums] 1,000 mg PO Q4HR PRN tab 08/19/24 08/23/24 Rx Losartan [Cozaar] 12.5 mg PO DAILY #30 tab 08/19/24 08/23/24 Rx Spironolactone [Aldactone] 12.5 mg PO DAILY #30 tab 08/19/24 08/23/24 Rx HYDROcodone/APAP 5-325MG [[place] 1 tab PO Q6HR 08/23/24 08/23/24 History 5-325] Omeprazole 20 mg PO DAILY 08/23/24 08/23/24 History methylPREDNISolone Dose Pack 4 mg PO DIRECTED #21 tab 08/24/24 Rx [Medrol Dose Pack] Allergies Allergy/AdvReac Type Severity Reaction Status Date / Time capsaicin Allergy Rash/Hives/ Verified 08/23/24 20:41 Swelling Surgical - Exam Vital Signs Temp Pulse Resp BP Pulse Ox 99.5 F 84 20 92/50 100 08/23/24 18:44 08/23/24 18:44 08/23/24 18:44 08/23/24 18:44 08/23/24 18:44 CONSTITUTIONAL: Awake and alert, appears somewhat comfortable, cooperative, well-developed, well-nourished, no pain, no acute distress EYES: Pupils equal, round, reactive to light, normal ocular movement ENT: Moist mucous membranes without oral lesions present NECK: No masses, no bruits, trachea midline RESPIRATORY: Lungs sounds diminished in the bases bilaterally bilaterally. Respirations even, nonlabored. Currently on room air with oxygen saturation 95%. Strong cough CARDIOVASCULAR: S1, S2 present. Regular rate and rhythm, sinus rhythm on telemetry. Palpable peripheral pulses bilaterally. Trace bilateral lower extremity edema present. No calf pain or tenderness noted GASTROINTESTINAL: Abdomen soft, nontender, nondistended without masses or organomegaly noted. There is no rebound or guarding present. Active bowel sounds present 4 quadrants. GENITOURINARY: Deferred INTEGUMENTARY: Skin is warm and dry. Anterior chest incision well- approximated, left thigh EVH site well-approximated NEUROLOGIC: Cranial nerves II through XII intact, normal coordination, no obvious motor or sensory deficits, speech is normal MUSKULOSKELETAL: Able to move all extremities, strength equal bilaterally, normal posture PSYCHIATRIC: Alert and oriented to person place and time, appropriate affect, intact judgment and insight Results - Labs 08/23/24 20:05 08/23/24 20:05 Abnormal Lab Results - Last 24 Hours (Table) 08/23/24 08/23/24 Range/Units 20:05 20:05 RBC 3.20 L (3.80-5.40) m/uL Hgb 9.2 L (11.4-16.0) gm/dL Hct 29.8 L (34.0-46.0) % MCHC 30.7 L (31.0-37.0) g/dL RDW 16.3 H (11.5-15.5) % Eosinophils # 0.9 H (0-0.7) k/uL Sodium 136 L (137-145) mmol/L Glucose 140 H (74-99) mg/dL Calcium 8.3 L (8.4-10.2) mg/dL Diabetes panel 08/23/24 Range/Units 20:05 Sodium 136 L (137-145) mmol/L Potassium 3.5 (3.5-5.1) mmol/L Chloride 101 (98-107) mmol/L Carbon Dioxide 30 (22-30) mmol/L BUN 16 (7-17) mg/dL Creatinine 0.80 (0.52-1.04) mg/dL Glucose 140 H (74-99) mg/dL Calcium 8.3 L (8.4-10.2) mg/dL Calcium panel 08/23/24 Range/Units 20:05 Calcium 8.3 L (8.4-10.2) mg/dL Pituitary panel 08/23/24 Range/Units 20:05 Sodium 136 L (137-145) mmol/L Potassium 3.5 (3.5-5.1) mmol/L Chloride 101 (98-107) mmol/L Carbon Dioxide 30 (22-30) mmol/L BUN 16 (7-17) mg/dL Creatinine 0.80 (0.52-1.04) mg/dL Glucose 140 H (74-99) mg/dL Calcium 8.3 L (8.4-10.2) mg/dL Adrenal panel 08/23/24 Range/Units 20:05 Sodium 136 L (137-145) mmol/L Potassium 3.5 (3.5-5.1) mmol/L Chloride 101 (98-107) mmol/L Carbon Dioxide 30 (22-30) mmol/L BUN 16 (7-17) mg/dL Creatinine 0.80 (0.52-1.04) mg/dL Glucose 140 H (74-99) mg/dL Calcium 8.3 L (8.4-10.2) mg/dL - Imaging Chest x-ray: report reviewed, image reviewed Assessment and Plan Assessment: Bilateral pleural effusions, shortness of breath, status post left-sided thoracentesis with removal of 1 L of fluid on August 22, 2024, status post right sided thoracentesis with removal of 900 mL of fluid today History of coronary artery disease status post recent stent followed by three- vessel off-pump CABG on August 09, 2024 Preserved left ventricular systolic function, EF 55 to 60%, mild MR, TR Hypertension Diet-controlled diabetes Bipolar disorder Chronic thrombocytopenia and anemia Left internal carotid artery stenosis Chronic transaminitis with history of EtOH abuse Previous tobacco cessation with recent cessation from vaping Marijuana use Plan: The patient was seen and examined with Dr. Dhillon, case discussed in detail with Dr. Ortiz. She underwent right sided thoracentesis today and stated her breathing felt a bit better. Follow-up chest x-ray was reviewed with Dr. Dhillon and is satisfactory. We will plan for repeat elective outpatient left-sided thoracentesis in the next 24 to 48 hours. We will discharge patient home on same medication regimen with the addition of a Medrol Dosepak at Dr. Dhillon's recommendations. Follow-up appointments have been made. She is to see her new primary this afternoon. She can continue with home care. Continue sternal precautions. Will follow-up with Dr. Ortiz in the office in a couple of weeks. Will discharge patient to home with home care today.
[2024-08-24] MEDS: PANTOPRAZOLE 40 MG TABLET PO SCH (09:08)
[2024-08-24] MEDS: METOPROLOL TARTRATE 25 MG TAB PO SCH (09:08)
[2024-08-24] MEDS: ASPIRIN 81 MG PO SCH (09:08)
[2024-08-24] MEDS: LOSARTAN 25 MG TAB PO SCH (09:08)
[2024-08-24] MEDS: CLOPIDOGREL 75 MG TAB PO SCH (09:08)
--- NOTE | 2024-08-24 10:35 | US ---
EXAMINATION TYPE: US chest DATE OF EXAM: 08/24/2024 COMPARISON: US 2023 CLINICAL INDICATION: Female, 49 years old with history of left chest marking for thoracentesis; TECHNIQUE: Targeted ultrasound of the posterior lower left hemithorax EXAM MEASUREMENTS: Left Pleural Effusion pocket size: 10.3 cm Left skin surface to fluid distance: 4.1 cm Left side marked for possible thoracentesis outside the dept. Pulmonologists are able to review the images in the patient?s EMR. IMPRESSIONS: 1. Left pleural effusion [facility], , 08/24/2024 10:32 AM
[2024-08-24] MEDS: ONDANSETRON 4 MG/2 ML VIAL IVP STA (11:46)
[2024-08-24 12:29] VITALS: BP 109/55; PULSE 75; RESP 20; TEMP 97.6
--- NOTE | 2024-08-24 20:39 | P.CNPUL ---
History of Present Illness Consult date: 08/24/24 Reason for consult: dyspnea, pleural effusion History of present illness: This is a 29-year-old female patient was coming into the emergency department because of worsening shortness of breath. The patient is post coronary artery bypass surgery that was done on 08/09/2024. The patient's postoperative course was essentially uneventful and the patient was discharged home on postop day #4. She subsequently experienced worsening shortness of breath. Her chest x-ray showed bilateral pleural effusion and the patient underwent a thoracentesis of the left lung on 08/22/2024 with a total of 1000 cc of fluid was aspirated and the fluid output was bloody. The patient was discharged home and the patient was taken a combination of diuretics including Bumex and Aldactone. She came into the emergency department today. The patient had a pulse ox of 95% room air oxygen. Nevertheless, she was experiencing shortness of breath and a chest x- ray showed bilateral pleural effusion slightly worse on the right. Based on that, I saw the patient Emergency Department and I performed a bedside thoracentesis of the right lung and a total of 1 L of fluid was aspirated. Postop, the patient remained stable and she improved. Blood work shows a sodium level of 126, BUN 16 with a creatinine of 0.8. WBC was 10.6 with a hemoglobin of 0.2. Cardiac rhythm is sinus. Postthoracentesis chest x-ray shows no evidence of any pneumothorax. There is some residual left-sided pleural effusion for which an ultrasound of the chest was done and the patient has a 10 cm pocket on the left. Review of Systems Constitutional: Denies chills, Denies fever Eyes: denies as per HPI, denies blurred vision, denies bulging eye, denies decreased vision, denies diplopia, denies discharge, denies dry eye, denies irritation, denies itching, denies pain, denies photophobia, denies loss of peripheral vision, denies loss of vision, denies tunnel vision/blind spots Ears: deny: decreased hearing, ear discharge, earache, tinnitus Ears, nose, mouth and throat: Reports as per HPI Breasts: absent: as per HPI, change in shape, gynecomastia, masses, nipple discharge, pain, skin changes, swelling Cardiovascular: Reports decreased exercise tolerance, Reports dyspnea on exertion Respiratory: Reports dyspnea Gastrointestinal: Reports as per HPI Genitourinary: Reports as per HPI Menstruation: Reports as per HPI Musculoskeletal: Reports as per HPI Musculoskeletal: absent: ankle pain, ankle stiffness, ankle swelling, as per HPI, elbow pain, elbow stiffness, elbow swelling, foot pain, foot stiffness, foot swelling, hand pain, hand stiffness, hand swelling, hip pain, hip stiffness, hip swelling, knee pain, knee stiffness, knee swelling, shoulder pain, shoulder stiffness, shoulder swelling, wrist pain, wrist stiffness, wrist swelling Integumentary: Reports as per HPI Neurological: Reports as per HPI Psychiatric: Reports as per HPI Endocrine: Reports as per HPI Hematologic/Lymphatic: Reports as per HPI Allergic/Immunologic: Reports as per HPI Past Medical History Past Medical History: Coronary Artery Disease (CAD), Diabetes Mellitus, Hypertension, Osteoarthritis (OA), Skin Disorder Additional Past Medical History / Comment(s): KIDNEY STONES, diet controlled diabetic-no longer needs med, no longer needs BP med, seasonal allergies, abs cess right breast, left breast hx. of abscess, yeast in skin fold in abd. cabg aug 09 2024. History of Any Multi-Drug Resistant Organisms: None Reported Past Surgical History: Appendectomy, Breast Surgery, Cholecystectomy, Coronary Bypass/CABG, Heart Catheterization With Stent, Orthopedic Surgery, Tubal Ligation Additional Past Surgical History / Comment(s): carpal tunnel RIGHT WRIST, dental, abcess drainage left breast x2 (July 2016, March 2019, Aug 2019); RT breast I&D 05/22/21, 06/05/21; Left ankle surgery. Past Anesthesia/Blood Transfusion Reactions: No Reported Reaction, Family History of Problems w/ Anesthesia Additional Past Anesthesia/Blood Transfusion Reaction / Comment(s): No blood transfusion to date, mom stopped breathing during a surg. & had to be r esuscitated Date of Last Stent Placement:: 07/30/24 Past Psychological History: Anxiety, Bipolar, Depression Smoking Status: Former smoker Past Alcohol Use History: None Reported Past Drug Use History: Marijuana - Past Family History Mother Family Medical History: Cancer Additional Family Medical History / Comment(s): CERVICAL CANCER Father Family Medical History: Unable to Obtain Additional Family Medical History / Comment(s): Patient did not know her father Medications and Allergies Home Medications Medication Instructions Recorded Confirmed Type Aspirin 81 mg PO DAILY tab 08/01/24 08/23/24 Rx Atorvastatin [Lipitor] 40 mg PO DAILY #30 tab 08/13/24 08/23/24 Rx Clopidogrel [Plavix] 75 mg PO DAILY #30 tab 08/13/24 08/23/24 Rx Metoprolol Tartrate [Lopressor] 25 mg PO BID #60 tab 08/13/24 08/23/24 Rx Bumetanide [BUMEX] 1 mg PO DAILY #7 tab 08/19/24 08/23/24 Rx Calcium Carbonate [Tums] 1,000 mg PO Q4HR PRN tab 08/19/24 08/23/24 Rx Losartan [Cozaar] 12.5 mg PO DAILY #30 tab 08/19/24 08/23/24 Rx Spironolactone [Aldactone] 12.5 mg PO DAILY #30 tab 08/19/24 08/23/24 Rx HYDROcodone/APAP 5-325MG [[place] 1 tab PO Q6HR 08/23/24 08/23/24 History 5-325] Omeprazole 20 mg PO DAILY 08/23/24 08/23/24 History methylPREDNISolone Dose Pack 4 mg PO DIRECTED #21 tab 08/24/24 Rx [Medrol Dose Pack] Allergies Allergy/AdvReac Type Severity Reaction Status Date / Time capsaicin Allergy Rash/Hives/ Verified 08/23/24 20:41 Swelling Physical Exam Vitals: Vital Signs Temp Pulse Resp BP Pulse Ox 08/24/24 12:29 97.6 F 75 20 109/55 94 L 08/24/24 11:50 86 18 95/38 95 08/24/24 10:47 78 18 87/45 94 L 08/24/24 10:43 68 20 96/35 95 08/24/24 10:38 68 18 85/40 95 08/24/24 09:04 97.2 F L 81 16 123/70 93 L 08/24/24 06:00 77 16 118/47 95 08/24/24 03:47 73 16 109/63 94 L 08/24/24 01:25 69 16 100/69 94 L CONSTITUTIONAL: Awake and alert, appears somewhat comfortable, cooperative, well-developed, well-nourished, no pain, no acute distress EYES: Pupils equal, round, reactive to light, normal ocular movement ENT: Moist mucous membranes without oral lesions present NECK: No masses, no bruits, trachea midline RESPIRATORY: Lungs sounds diminished in the bases bilaterally bilaterally. Respirations even, nonlabored. Currently on room air with oxygen saturation 95%. Strong cough CARDIOVASCULAR: S1, S2 present. Regular rate and rhythm, sinus rhythm on telemetry. Palpable peripheral pulses bilaterally. Trace bilateral lower extremity edema present. No calf pain or tenderness noted GASTROINTESTINAL: Abdomen soft, nontender, nondistended without masses or organomegaly noted. There is no rebound or guarding present. Active bowel sounds present 4 quadrants. GENITOURINARY: Deferred INTEGUMENTARY: Skin is warm and dry. Anterior chest incision well- approximated, left thigh EVH site well-approximated NEUROLOGIC: Cranial nerves II through XII intact, normal coordination, no obvi ous motor or sensory deficits, speech is normal MUSKULOSKELETAL: Able to move all extremities, strength equal bilaterally, normal posture PSYCHIATRIC: Alert and oriented to person place and time, appropriate affect, intact judgment and insight Results - Laboratory Findings CBC and BMP: 08/23/24 20:05 08/23/24 20:05 Abnormal lab findings: Abnormal Labs 08/23/24 08/23/24 20:05 20:05 RBC 3.20 L Hgb 9.2 L Hct 29.8 L MCHC 30.7 L RDW 16.3 H Eosinophils # 0.9 H Sodium 136 L Glucose 140 H Calcium 8.3 L - Diagnostic Findings Chest x-ray: image reviewed Assessment and Plan Plan: Shortness of breath related to bilateral pleural effusion. Patient is post thoracotomy bilateral pleural effusion and the patient has already undergone a left-sided thoracentesis on 08/22/2024 with removal of 1 L of fluid. Another thoracentesis was done today in the emergency on 08/24/2024 with removal of 900 cc of pleural fluid. Bilateral pleural effusions, postthoracotomy History of coronary artery disease status post recent stent followed by three- vessel off-pump CABG on August 09, 2024 Preserved left ventricular systolic function, EF 55 to 60%, mild MR, TR Hypertension Diet-controlled diabetes Bipolar disorder Chronic thrombocytopenia and anemia Left internal carotid artery stenosis Chronic transaminitis with history of EtOH abuse Previous tobacco cessation with recent cessation from vaping Marijuana use Plan Resume Bumex and Aldactone Give the patient Medrol Dosepak which may help her with the postthoracotomy inflammatory changes in her pleural space and pleural lining Ultrasound of the chest was done and the patient has residual left-sided pleural effusion and the patient will be scheduled to undergo another thoracentesis of the left lung on 08/27/2024 Resume home medications Patient should be able to get discharged as she felt better following the thorac entesis.
--- NOTE | 2024-08-24 20:40 | P.PCN ---
Date of Procedure: 08/24/24 Preoperative Diagnosis: Right-sided pleural effusion Postoperative Diagnosis: Right-sided pleural effusion Procedure(s) Performed: Right-sided thoracentesis Anesthesia: local Surgeon: Aden Dhillon Estimated Blood Loss (ml): 0 Pathology: other Condition: stable Disposition: same day Operative Findings: A time out was performed and the chest x-ray was reviewed, the appropriate side was confirmed and marked. My hands were washed immediately prior to the procedure. I wore a surgical cap, mask with protective eyewear, sterile gown and sterile gloves throughout the procedure. The patient was prepped and draped in a sterile manner using chlorhexidine scrub after the appropriate level was percussed and confirmed by ultrasound. 1% lidocaine was used to anesthesize the skin, subcutaneous tissue, superior aspect of the rib periosteum and parietal pleura. A finder needle was then introduced over the superior aspect of the rib to locate the pleural fluid; 2colored fluid was aspirated at a depth of approximately 2 cm. A 10-blade scalpel was used to sujata the skin at the ins ertion site. The [id number] needle was then introduced through the skin incision into the pleural space using negative aspiration pressure and the red colometric indicator to confirm appropriate positioning of the needle. The thoracentesis catheter was then threaded without difficulty. 900 ml of turbid bloody colored fluid was removed without difficulty. The catheter was then removed. No immediate complications were noted during the procedure. A post- procedure chest x-ray is pending at the time of this note. The fluid will not be sent for studies. Estimated blood loss is 0cc
== END 2024-08-24 12:29 | disposition home health service (06) ==
LOC: EC 18:42 → 4SSUR 19:49
PROVIDERS: ADMIT Thoracic Surgery (Cardiothoracic Vascular Surgery); ATTEND Thoracic Surgery (Cardiothoracic Vascular Surgery)
DX: J90 Pleural effusion, not elsewhere classified (principal); I08.1 Rheumatic disorders of both mitral and tricuspid valves; I10 Essential (primary) hypertension; I25.10 Atherosclerotic heart disease of native coronary artery without angina pectoris; D69.6 Thrombocytopenia, unspecified; D64.9 Anemia, unspecified; E11.9 Type 2 diabetes mellitus without complications; F31.9 Bipolar disorder, unspecified; I65.22 Occlusion and stenosis of left carotid artery; R74.01 Elevation of levels of liver transaminase levels; F12.90 Cannabis use, unspecified, uncomplicated; F41.9 Anxiety disorder, unspecified; Z79.82 Long term (current) use of aspirin; Z79.02 Long term (current) use of antithrombotics/antiplatelets; Z79.899 Other long term (current) drug therapy; Z79.84 Long term (current) use of oral hypoglycemic drugs; Z91.048 Other nonmedicinal substance allergy status; Z95.1 Presence of aortocoronary bypass graft; Z87.891 Personal history of nicotine dependence; Z95.5 Presence of coronary angioplasty implant and graft; Z87.898 Personal history of other specified conditions
CPT/HCPCS: 71045; 71046; 76604; 80048; 83880; 85025; 93005; 96374; 96375; 96376; 99285

== ENCOUNTER 2024-08-27 10:30 | Emergency (ER) | payer BC ==
[2024-08-27 10:35] VITALS: TEMP 98.9
[2024-08-27] MEDS: diphenhydrAMINE 50 MG/ML 1 ML VIAL IVP STA (11:58)
[2024-08-27] MEDS: METOCLOPRAMIDE 5 MG/ML 2 ML VIAL IVP STA (11:58)
[2024-08-27] MEDS: HYDROmorphone 1 MG/ML 1 ML SYRINGE IVP STA ×2 (11:58→15:25)
[2024-08-27 12:11] LABS: Anisocytosis Slight; Basophils # (A) 0.1 k/uL (0-0.2); Basophils % (A) 0 %; Eosinophils # (A) 1.3 k/uL (0-0.7); Eosinophils % (A) 8 %; HCT 32.6 % (34.0-46.0); HGB 10.3 gm/dL (11.4-16.0); Hypochromasia Marked; Lymphocytes # (A) 2.7 k/uL (1.0-4.8); Lymphocytes % (A) 17 %; MCH 28.9 pg (25.0-35.0); MCHC 31.5 g/dL (31.0-37.0); MCV 91.9 fL (80.0-100.0); Mean Platelet Volume 9.6; Monocytes # (A) 0.9 k/uL (0-1.0); Monocytes % (A) 6 %; Neutrophils # (A) 10.4 k/uL (1.3-7.7); Neutrophils % (A) 67 %; Platelet Count 364 k/uL (150-450); Poikilocytosis Marked; RBC 3.55 m/uL (3.80-5.40); RDW 16.5 % (11.5-15.5); WBC 15.5 k/uL (3.8-10.6)
[2024-08-27 12:28] LABS: ALT 41 U/L (4-34); AST 84 U/L (14-36); African American GFR (CKD) >90 (>60 ml/min/1.73 sqM); Albumin 3.4 g/dL (3.5-5.0); Alkaline Phosphatase 148 U/L (38-126); Amylase 68 U/L (30-110); Anion Gap 10 mmol/L; Blood Urea Nitrogen 18 mg/dL (7-17); Calcium 8.7 mg/dL (8.4-10.2); Carbon Dioxide 22 mmol/L (22-30); Chloride 106 mmol/L (98-107); Glucose 186 mg/dL (74-99); Lipase 240 U/L (23-300); Non-African American GFR(CKD) >90 (>60 ml/min/1.73 sqM); Potassium 3.9 mmol/L (3.5-5.1); Sodium 138 mmol/L (137-145); Total Bilirubin 1.8 mg/dL (0.2-1.3); Total Protein 6.8 g/dL (6.3-8.2)
--- NOTE | 2024-08-27 14:13 | CT ---
EXAMINATION TYPE: CT abdomen pelvis w con CT DLP: 1781.7 mGycm, Automated exposure control for dose reduction was used. DATE OF EXAM: 08/27/2024 2:00 PM COMPARISON: CT abdomen pelvis 06/28/2021 CLINICAL INDICATION:Female, 49 years old with history of abdominal pain; ABD PAIN/ RECENT TRIPLE BY P ASS TECHNIQUE: Standard CT of the abdomen and pelvis following the administration of 100 cc of Isovue 3 00 IV contrast material. Coronal and sagittal reformats were performed. FINDINGS: LOWER CHEST: Bilateral pleural effusions with left greater than right and associated atelectasis. Sma ll pericardial effusion inferiorly. ABDOMEN LIVER: Cirrhotic morphology of the liver with surface nodularity, widened fissures, and posterior not ch sign. No focal lesion identified. GALLBLADDER AND BILE DUCTS: The gallbladder is surgically absent. No biliary ductal dilatation. PANCREAS: Unremarkable. SPLEEN: Borderline prominent measuring 13.9 cm in CC dimension. Peripheral 1.2 cm hypodense lesion li jessika representing a cyst. ADRENAL GLANDS: Unremarkable. KIDNEYS AND URETERS: No evidence of hydronephrosis. The kidneys enhance symmetrically. Nonobstructive 5 mm right upper pole renal calculus. Multiple nonobstructive left renal calculi with largest measur ing up to 8 mm. Contrast is demonstrated within both collecting systems on the delayed phase. PELVIS BLADDER: Incompletely distended but grossly unremarkable. REPRODUCTIVE: Unremarkable. ABDOMEN & PELVIS STOMACH AND BOWEL: Stomach and duodenum are unremarkable. No focal bowel wall thickening or surroundi ng inflammatory changes. Submucosal fat deposition within the ascending colon possibly related to chr onic inflammatory process. No evidence of bowel obstruction. PERITONEUM: No evidence of pneumoperitoneum. Trace free fluid in the posterior pelvis. VASCULATURE: Mild to moderate atherosclerotic calcifications are present throughout the abdominal aor ta and its branches. No evidence of aortic aneurysm. Portal venous system appears patent. Few right-s ided pelvic fluid. No collateral vessels identified. MUSCULOSKELETAL: No acute osseous abnormalities LYMPH NODES: No evidence for lymphadenopathy. SOFT TISSUE/ABDOMINAL WALL: Nonspecific small nodules within the lower anterior abdomen wall subcutan eous fat. Possible medication injection granulomas. IMPRESSION: 1. No CT evidence for acute abdominal/pelvic process. 2. Findings of hepatic cirrhosis. 3. Nonobstructive bilateral renal calculi. 4. Bilateral pleural effusions with left greater than right and associated atelectasis. 5. Small pericardial effusion. [facility], , 08/27/2024 2:11 PM
[2024-08-27 15:05] LABS: Appearance,Urine Clear (Clear); Bilirubin,Urine Negative (Negative); Blood,Urine Negative (Negative); Color,Urine Colorless; Glucose,Urine (UA) Negative (Negative); Ketones,Urine Negative (Negative); Leukocyte Esterase,Urine Negative (Negative); Nitrite,Urine Negative (Negative); PH, Urine 6.5 (5.0-8.0); Protein,Urine Negative (Negative); Urobilinogen,Urine <2.0 mg/dL (<2.0)
--- NOTE | 2024-08-27 15:22 | ED ---
Abdominal Pain HPI - General Source: patient, family, RN notes reviewed, old records reviewed Mode of arrival: ambulatory Limitations: no limitations <Carleen Shirley - Last Filed: 08/28/24 15:48> - General Source: EMS Mode of arrival: EMS Limitations: no limitations <Sabrina Zamora - Last Filed: 08/29/24 17:01> - General Chief Complaint: Abdominal Pain Stated Complaint: Abd Pain Time Seen by Provider: 08/27/24 10:47 - History of Present Illness Initial Comments: 49-year-old female with recent CABG who presents emergency department reporting diffuse abdominal pain and vomiting. Patient states that she saw her CT surgeon this morning. Afterwards she developed intense abdominal pain with vomiting. No hematemesis. Denies diarrhea. No fevers. No ripping or tearing sensation to her back. Denies black or bloody stools. Patient is status post cholecystectomy. She denies any chest pain. She has been having some shortness of breath and is scheduled for a thoracentesis at 1145. Patient is also supposed to have an appointment with her primary care doctor at 3:00. ( Sabrina Zamora) - Related Data Home Medications Medication Instructions Recorded Confirmed HYDROcodone/APAP 5-325MG [[place] 1 tab PO Q6HR 08/23/24 08/29/24 5-325] Omeprazole 20 mg PO DAILY 08/23/24 08/29/24 methylPREDNISolone Dose Pack See Taper PO DIRECTED 08/27/24 08/29/24 [Medrol Dose Pack] Previous Rx's Medication Instructions Recorded Aspirin 81 mg PO DAILY tab 08/01/24 Atorvastatin [Lipitor] 40 mg PO DAILY #30 tab 08/13/24 Clopidogrel [Plavix] 75 mg PO DAILY #30 tab 08/13/24 Metoprolol Tartrate [Lopressor] 25 mg PO BID #60 tab 08/13/24 Bumetanide [BUMEX] 1 mg PO DAILY #7 tab 08/19/24 Calcium Carbonate [Tums] 1,000 mg PO Q4HR PRN tab 08/19/24 Losartan [Cozaar] 12.5 mg PO DAILY #30 tab 08/19/24 Spironolactone [Aldactone] 12.5 mg PO DAILY #30 tab 08/19/24 Ondansetron Odt [Zofran Odt] 4 mg PO Q8HR PRN #10 tab 08/28/24 Allergies Allergy/AdvReac Type Severity Reaction Status Date / Time capsaicin Allergy Rash/Hives/ Verified 08/29/24 09:37 Swelling Review of Systems ROS Other: All systems not noted in ROS Statement are negative. <CeferinoaustinjoceCarleen - Last Filed: 08/28/24 15:48> ROS Other: All systems not noted in ROS Statement are negative. <SeraSabrina Joce - Last Filed: 08/29/24 17:01> ROS Statement: Those systems with pertinent positive or pertinent negative responses have been documented in the HPI. Past Medical History Past Medical History: Coronary Artery Disease (CAD), Diabetes Mellitus, Hypertension, Osteoarthritis (OA), Skin Disorder Additional Past Medical History / Comment(s): KIDNEY STONES, diet controlled diabetic-no longer needs med, no longer needs BP med, seasonal allergies, abscess right breast, left breast hx. of abscess, yeast in skin fold in abd. cabg aug 09 2024. History of Any Multi-Drug Resistant Organisms: None Reported Past Surgical History: Appendectomy, Breast Surgery, Cholecystectomy, Coronary Bypass/CABG, Heart Catheterization With Stent, Orthopedic Surgery, Tubal Ligation Additional Past Surgical History / Comment(s): carpal tunnel RIGHT WRIST, dental, abcess drainage left breast x2 (July 2016, March 2019, Aug 2019); RT breast I&D 05/22/21, 06/05/21; Left ankle surgery. Past Anesthesia/Blood Transfusion Reactions: No Reported Reaction, Family History of Problems w/ Anesthesia Additional Past Anesthesia/Blood Transfusion Reaction / Comment(s): No blood transfusion to date, mom stopped breathing during a surg. & had to be resuscitated Date of Last Stent Placement:: 07/30/24 Past Psychological History: Anxiety, Bipolar, Depression Smoking Status: Former smoker Past Alcohol Use History: None Reported Past Drug Use History: Marijuana - Past Family History Mother Family Medical History: Cancer Additional Family Medical History / Comment(s): CERVICAL CANCER Father Family Medical History: Unable to Obtain Additional Family Medical History / Comment(s): Patient did not know her father <SeraSabrina Joce - Last Filed: 08/29/24 17:01> General Exam Limitations: no limitations General appearance: alert, in no apparent distress Head exam: Present: atraumatic, normocephalic, normal inspection Eye exam: Present: normal appearance, PERRL, EOMI. Absent: scleral icterus, conjunctival injection, periorbital swelling ENT exam: Present: normal exam, mucous membranes moist Neck exam: Present: normal inspection. Absent: tenderness, meningismus, lymphadenopathy Respiratory exam: Present: normal lung sounds bilaterally. Absent: respiratory distress, wheezes, rales, rhonchi, stridor Cardiovascular Exam: Present: regular rate, normal rhythm, normal heart sounds. Absent: systolic murmur, diastolic murmur, rubs, gallop, clicks GI/Abdominal exam: Present: soft, tenderness (Periumbilical), normal bowel sounds. Absent: distended, guarding, rebound, rigid Extremities exam: Present: normal inspection, full ROM, normal capillary refill. Absent: tenderness, pedal edema, joint swelling, calf tenderness Back exam: Present: normal inspection Neurological exam: Present: alert, oriented X3, CN II-XII intact Psychiatric exam: Present: normal affect, normal mood Skin exam: Present: warm, dry, intact, normal color. Absent: rash <Sabrina Zamora - Last Filed: 08/29/24 17:01> Course Vital Signs 08/27/24 08/27/24 08/27/24 10:32 12:14 15:36 Temperature 98.9 F Pulse Rate 74 68 69 Respiratory 18 16 18 Rate Blood Pressure 131/58 163/87 185/97 O2 Sat by Pulse 98 95 96 Oximetry Medical Decision Making - Lab Data Result diagrams: 08/27/24 12:02 08/27/24 12:02 <Carleen Shirley - Last Filed: 08/28/24 15:48> - Lab Data Result diagrams: 08/27/24 12:02 08/27/24 12:02 <Sabrina Zamora - Last Filed: 08/29/24 17:01> - Medical Decision Making Was pt. sent in by a medical professional or institution ([facility], PROMOTIONAL MODEL, urgent care, hospital, or residential...) When possible be specific @ -No Did you speak to anyone other than the patient for history (EMS, parent, family, police, friend...)? What history was obtained from this source @ -No Did you review nursing and triage notes (agree or disagree)? Why? @ -I reviewed and agree with nursing and triage notes Were old charts reviewed (outside hosp., previous admission, EMS record, old EKG , old radiological studies, urgent care reports/EKG's, residential records)? Report findings @ -No old charts were reviewed Differential Diagnosis (chest pain, altered mental status, abdominal pain women, abdominal pain men, vaginal bleeding, weakness, fever, dyspnea, syncope, headache, dizziness, GI bleed, back pain, seizure, CVA, palpatations, mental health, musculoskeletal)? @ -Differential Abdominal Pain Women: Appendicitis, Cholecystitis, diverticulosis, ischemic bowel, pancreatitis, h epatitis, UTI, gastroenteritis, AAA, incarcerated hernia, bowel obstruction, constipation, inflammatory bowel, hepatitis, peptic ulcer disease, splenic infarction, perforated viscus, vulvitis, ovarian torsion, PID, kidney stone, placenta abruption, this is not meant to be an all-inclusive list EKG interpreted by me (3pts min.). @ -Not done X-rays interpreted by me (1pt min.). @ -None done CT interpreted by me (1pt min.). @ -Yes and demonstrates hepatic steatosis U/S interpreted by me (1pt. min.). @ -None done What testing was considered but not performed or refused? (CT, X-rays, U/S, labs )? Why? @ -None What meds were considered but not given or refused? Why? @ -Further antiemetics and pain medication however patient is electing to go home at this time Did you discuss the management of the patient with other professionals (professionals i.e. , PA, PROMOTIONAL MODEL, lab, RT, psych nurse, social staff worker, branch customer service representative, teacher, national insurance officer, nurse outreach case manager)? Give summary @ -Case management. She does contact the cardiothoracic's team Was smoking cessation discussed for >3mins.? @ -No Was critical care preformed (if so, how long)? @ -No Were there social determinants of health that impacted care today? How? (Homelessness, low income, unemployed, alcoholism, drug addiction, transportation, low edu. Level, literacy, decrease access to med. care, half-way, rehab)? @ -No Was there de-escalation of care discussed even if they declined (Discuss DNR or withdrawal of care, Hospice)? DNR status @ -No What co-morbidities impacted this encounter? (DM, HTN, Smoking, COPD, CAD, Cancer, CVA, ARF, Chemo, Hep., AIDS, mental health diagnosis, sleep apnea, morbid obesity)? @ -Coronary artery disease Was patient admitted / discharged? Hospital course, mention meds given and route, prescriptions, significant lab abnormalities, going to OR and other pertinent info. @ -Upon arrival patient seen and evaluated in hallway 21. Thorough history and physical exam was performed. IV access was established. Patient was given pain and nausea medications. Laboratory studies are conducted. CAT scan is pe rformed. I spoke with the patient again and she is requesting more pain and nausea medications which is provided to her. I am unsure of the etiology the patient's symptoms. I did recommend admission. Patient refused and wanted to go home. I did discuss the differential. Patient will be discharged home as this is her request. It is stressed that she needs to follow-up with her primary care team for further management and return should she be agreeable to admission Undiagnosed new problem with uncertain prognosis? @ -No Drug Therapy requiring intensive monitoring for toxicity (Heparin, Nitro, Insulin, Cardizem)? @ -No Were any procedures done? @ -No Diagnosis/symptom? @ -Acute abdominal pain, acute nausea vomiting Acute, or Chronic, or Acute on Chronic? @ -Acute Uncomplicated (without systemic symptoms) or Complicated (systemic symptoms)? @ -Complicated Side effects of treatment? @ -No Exacerbation, Progression, or Severe Exacerbation? @ -No Poses a threat to life or bodily function? How? (Chest pain, [place], [place], pneumonia, PE, COPD, DKA, ARF, appy, cholecystitis, CVA, Diverticulitis, Homicidal, Suicidal, threat to staff... and all critical care pts) @ -No (Sabrina Zamora) - Lab Data Lab Results 08/27/24 08/27/24 08/27/24 Range/Units 12:02 12:02 12:02 WBC 15.5 H (3.8-10.6) k/uL RBC 3.55 L (3.80-5.40) m/uL Hgb 10.3 L (11.4-16.0) gm/dL Hct 32.6 L (34.0-46.0) % MCV 91.9 (80.0-100.0) fL MCH 28.9 (25.0-35.0) pg MCHC 31.5 (31.0-37.0) g/dL RDW 16.5 H (11.5-15.5) % Plt Count 364 (150-450) k/uL MPV 9.6 Neutrophils % 67 % Lymphocytes % 17 % Monocytes % 6 % Eosinophils % 8 % Basophils % 0 % Neutrophils # 10.4 H (1.3-7.7) k/uL Lymphocytes # 2.7 (1.0-4.8) k/uL Monocytes # 0.9 (0-1.0) k/uL Eosinophils # 1.3 H (0-0.7) k/uL Basophils # 0.1 (0-0.2) k/uL Hypochromasia Marked Poikilocytosis Marked Anisocytosis Slight Sodium 138 (137-145) mmol/L Potassium 3.9 (3.5-5.1) mmol/L Chloride 106 (98-107) mmol/L Carbon Dioxide 22 (22-30) mmol/L Anion Gap 10 mmol/L BUN 18 H (7-17) mg/dL Creatinine 0.73 (0.52-1.04) mg/dL Est GFR (CKD-EPI)AfAm >90 (>60 ml/min/1.73 sqM) Est GFR (CKD-EPI)NonAf >90 (>60 ml/min/1.73 sqM) Glucose 186 H (74-99) mg/dL Lactic Ac Sepsis Rflx Plasma Lactic Acid Tristin 4.1 H* (0.7-2.0) mmol/L Calcium 8.7 (8.4-10.2) mg/dL Total Bilirubin 1.8 H (0.2-1.3) mg/dL AST 84 H (14-36) U/L ALT 41 H (4-34) U/L Alkaline Phosphatase 148 H (38-126) U/L Total Protein 6.8 (6.3-8.2) g/dL Albumin 3.4 L (3.5-5.0) g/dL Amylase 68 (30-110) U/L Lipase 240 (23-300) U/L Urine Color Urine Appearance (Clear) Urine pH (5.0-8.0) Ur Specific [place] (1.001-1.035) Urine Protein (Negative) Urine Glucose (UA) (Negative) Urine Ketones (Negative) Urine Blood (Negative) Urine Nitrite (Negative) Urine Bilirubin (Negative) Urine Urobilinogen (<2.0) mg/dL Ur Leukocyte Esterase (Negative) 08/27/24 08/27/24 Range/Units 12:33 14:40 WBC (3.8-10.6) k/uL RBC (3.80-5.40) m/uL Hgb (11.4-16.0) gm/dL Hct (34.0-46.0) % MCV (80.0-100.0) fL MCH (25.0-35.0) pg MCHC (31.0-37.0) g/dL RDW (11.5-15.5) % Plt Count (150-450) k/uL MPV Neutrophils % % Lymphocytes % % Monocytes % % Eosinophils % % Basophils % % Neutrophils # (1.3-7.7) k/uL Lymphocytes # (1.0-4.8) k/uL Monocytes # (0-1.0) k/uL Eosinophils # (0-0.7) k/uL Basophils # (0-0.2) k/uL Hypochromasia Poikilocytosis Anisocytosis Sodium (137-145) mmol/L Potassium (3.5-5.1) mmol/L Chloride (98-107) mmol/L Carbon Dioxide (22-30) mmol/L Anion Gap mmol/L BUN (7-17) mg/dL Creatinine (0.52-1.04) mg/dL Est GFR (CKD-EPI)AfAm (>60 ml/min/1.73 sqM) Est GFR (CKD-EPI)NonAf (>60 ml/min/1.73 sqM) Glucose (74-99) mg/dL Lactic Ac Sepsis Rflx Y Plasma Lactic Acid Trist[place] (0.7-2.0) mmol/L Calcium (8.4-10.2) mg/dL Total Bilirubin (0.2-1.3) mg/dL AST (14-36) U/L ALT (4-34) U/L Alkaline Phosphatase (38-126) U/L Total Protein (6.3-8.2) g/dL Albumin (3.5-5.0) g/dL Amylase (30-110) U/L Lipase (23-300) U/L Urine Color Colorless Urine Appearance Clear (Clear) Urine pH 6.5 (5.0-8.0) Ur Specific [place] >1.050 H (1.001-1.035) Urine Protein Negative (Negative) Urine Glucose (UA) Negative (Negative) Urine Ketones Negative (Negative) Urine Blood Negative (Negative) Urine Nitrite Negative (Negative) Urine Bilirubin Negative (Negative) Urine Urobilinogen <2.0 (<2.0) mg/dL Ur Leukocyte Esterase Negative (Negative) Disposition <Carleen Shirley - Last Filed: 08/28/24 15:48> Is patient prescribed a controlled substance at d/c from ED?: No Time of Disposition: 15:23 <Sabrina Zamora - Last Filed: 08/29/24 17:01> Clinical Impression: Nausea and vomiting, Epigastric pain Disposition: HOME SELF-CARE Condition: Stable Instructions (If sedation given, give patient instructions): Abdominal Pain (ED) Additional Instructions: Please follow-up with your heart doctor at your scheduled appointment. If your pain does not improve, return to the emergency department. You may need further testing to explain your symptoms Referrals: None,Stated [Primary Care Provider] - 1-2 days
[2024-08-27] MEDS: ONDANSETRON 4 MG/2 ML VIAL IVP STA (15:25)
[2024-08-27 15:33] LABS: Specific Gravity,Urine >1.050 (1.001-1.035)
[2024-08-27 15:37] VITALS: BP 185/97; PULSE 69; RESP 18
== END 2024-08-27 15:37 | disposition home or self-care (01) ==
LOC: EC 10:30
DX: R10.9 Unspecified abdominal pain
CPT/HCPCS: 36415; 74177; 80053; 81003; 82150; 83605; 83690; 85025; 96374; 96375; 96376; 99284

== ENCOUNTER 2024-08-28 06:20 | Emergency (ER) | payer BC ==
[2024-08-28] MEDS: ONDANSETRON 4 MG/2 ML VIAL IVP STA (07:23)
[2024-08-28] MEDS: HYDROmorphone 1 MG/ML 1 ML SYRINGE IVP STA (07:24)
[2024-08-28] MEDS: SODIUM CHLORIDE 0.9% 1,000 ML IV STA (07:26)
[2024-08-28 07:29] LABS: Basophils % (A) 0 %; Eosinophils # (A) 0.1 k/uL (0-0.7); Eosinophils % (A) 1 %; HCT 30.6 % (34.0-46.0); HGB 9.5 gm/dL (11.4-16.0); Hypochromasia Marked; Lymphocytes # (A) 1.2 k/uL (1.0-4.8); Lymphocytes % (A) 12 %; MCH 28.2 pg (25.0-35.0); MCHC 31.1 g/dL (31.0-37.0); MCV 90.7 fL (80.0-100.0); Mean Platelet Volume 8.9; Monocytes # (A) 0.7 k/uL (0-1.0); Monocytes % (A) 7 %; Neutrophils # (A) 7.8 k/uL (1.3-7.7); Neutrophils % (A) 78 %; Platelet Count 233 k/uL (150-450); Poikilocytosis Moderate; RBC 3.38 m/uL (3.80-5.40); RDW 15.9 % (11.5-15.5)
[2024-08-28 07:30] VITALS: RESP 16
[2024-08-28 07:54] LABS: ALT 42 U/L (4-34); AST 62 U/L (14-36); African American GFR (CKD) >90 (>60 ml/min/1.73 sqM); Albumin 3.3 g/dL (3.5-5.0); Alkaline Phosphatase 128 U/L (38-126); Amylase 88 U/L (30-110); Anion Gap 8 mmol/L; Blood Urea Nitrogen 21 mg/dL (7-17); Calcium 8.6 mg/dL (8.4-10.2); Carbon Dioxide 26 mmol/L (22-30); Chloride 103 mmol/L (98-107); Glucose 164 mg/dL (74-99); Lipase 331 U/L (23-300); Non-African American GFR(CKD) >90 (>60 ml/min/1.73 sqM); Potassium 3.5 mmol/L (3.5-5.1); Sodium 137 mmol/L (137-145); Total Bilirubin 1.8 mg/dL (0.2-1.3); Total Protein 6.6 g/dL (6.3-8.2)
--- NOTE | 2024-08-28 08:08 | ED ---
Nausea/Vomiting/Diarrhea HPI - General Chief complaint: Nausea/Vomiting/Diarrhea Stated complaint: Post-op issues, vomiting Time Seen by Provider: 08/28/24 06:45 Source: patient, RN notes reviewed Mode of arrival: wheelchair Limitations: no limitations - History of Present Illness Initial comments: 49-year-old female presenting to the ER with a chief complaint of nausea vomiting and abdominal pain. Patient underwent bypass by Dr. Ortiz on 08-09-2024. Patient states yesterday morning she woke up with persistent nausea and vomiting. She was seen by Dr. Ogden in office yesterday. She states since then she has been having persistent nausea, vomiting and umbilical abdominal pain. Patient was seen here yesterday and lab at [address]. No findings to explain current symptoms. Patient did receive symptomatic control in the ER yesterday. Patient states she went home and continued to have nausea and vomiting. She has not been able to keep anything down in the past 24 hours. She has tried Mylanta and MiraLAX without relief. She does report mild constipation but states she has not been eating much. Denies any fevers, chills, chest pain, shortness of breath, urinary complaints or peripheral edema. - Related Data Home Medications Medication Instructions Recorded Confirmed HYDROcodone/APAP 5-325MG [[place] 1 tab PO Q6HR 08/23/24 08/28/24 5-325] Omeprazole 20 mg PO DAILY 08/23/24 08/28/24 methylPREDNISolone Dose Pack See Taper PO DIRECTED 08/27/24 08/28/24 [Medrol Dose Pack] Previous Rx's Medication Instructions Recorded Aspirin 81 mg PO DAILY tab 08/01/24 Atorvastatin [Lipitor] 40 mg PO DAILY #30 tab 08/13/24 Clopidogrel [Plavix] 75 mg PO DAILY #30 tab 08/13/24 Metoprolol Tartrate [Lopressor] 25 mg PO BID #60 tab 08/13/24 Bumetanide [BUMEX] 1 mg PO DAILY #7 tab 08/19/24 Calcium Carbonate [Tums] 1,000 mg PO Q4HR PRN tab 08/19/24 Losartan [Cozaar] 12.5 mg PO DAILY #30 tab 08/19/24 Spironolactone [Aldactone] 12.5 mg PO DAILY #30 tab 08/19/24 Ondansetron Odt [Zofran Odt] 4 mg PO Q8HR PRN #10 tab 08/28/24 Allergies Allergy/AdvReac Type Severity Reaction Status Date / Time capsaicin Allergy Rash/Hives/ Verified 08/28/24 06:23 Swelling Review of Systems ROS Statement: Those systems with pertinent positive or pertinent negative responses have been documented in the HPI. ROS Other: All systems not noted in ROS Statement are negative. Past Medical History Past Medical History: Coronary Artery Disease (CAD), Diabetes Mellitus, Hypertension, Osteoarthritis (OA), Skin Disorder Additional Past Medical History / Comment(s): KIDNEY STONES, diet controlled diabetic-no longer needs med, no longer needs BP med, seasonal allergies, abscess right breast, left breast hx. of abscess, yeast in skin fold in abd. cabg aug 09 2024. History of Any Multi-Drug Resistant Organisms: None Reported Past Surgical History: Appendectomy, Breast Surgery, Cholecystectomy, Coronary Bypass/CABG, Heart Catheterization With Stent, Orthopedic Surgery, Tubal Ligation Additional Past Surgical History / Comment(s): carpal tunnel RIGHT WRIST, dental, abcess drainage left breast x2 (July 2016, March 2019, Aug 2019); RT breast I&D 05/22/21, 06/05/21; Left ankle surgery. Past Anesthesia/Blood Transfusion Reactions: No Reported Reaction, Family His tory of Problems w/ Anesthesia Additional Past Anesthesia/Blood Transfusion Reaction / Comment(s): No blood transfusion to date, mom stopped breathing during a surg. & had to be resuscitated Date of Last Stent Placement:: 07/30/24 Past Psychological History: Anxiety, Bipolar, Depression Smoking Status: Former smoker Past Alcohol Use History: None Reported Past Drug Use History: Marijuana - Past Family History Mother Family Medical History: Cancer Additional Family Medical History / Comment(s): CERVICAL CANCER Father Family Medical History: Unable to Obtain Additional Family Medical History / Comment(s): Patient did not know her father General Exam Limitations: no limitations General appearance: alert, in no apparent distress Respiratory exam: Present: normal lung sounds bilaterally. Absent: respiratory distress, wheezes, rales, rhonchi, stridor Cardiovascular Exam: Present: regular rate, normal rhythm, normal heart sounds, other (Midline healing surgical incision). Absent: systolic murmur, diastolic murmur, rubs, gallop, clicks GI/Abdominal exam: Present: soft, tenderness (Epigastric/umbilical), normal bowel sounds, other (Multiple contusions present). Absent: distended, guarding, rebound, rigid Neurological exam: Present: alert, oriented X3, CN II-XII intact Skin exam: Present: warm, dry, intact, normal color. Absent: rash Course Vital Signs 08/28/24 08/28/24 08/28/24 06:22 07:29 11:50 Temperature 97.9 F 98.4 F Pulse Rate 112 H 103 H 101 H Respiratory 20 16 16 Rate Blood Pressure 188/108 173/91 130/89 O2 Sat by Pulse 97 95 94 L Oximetry - Reevaluation(s) Reevaluation #1: 08/28/24 08:40 Patient reevaluated, reporting improvement of symptoms. Patient agreeable for admission. 08/28/[address] Wang, [facility], who would like patient cleared by cardiothoracic surgery for admission. 08/28/24 1015 Case discussed with Elfego, CT team, who advised on outpatient management unless Dr. Dhillon and would like to intervene on pulmonary effusions noted on CT yesterday. He states elevated troponin is normal patient's post CABG. He did come down to the emergency department to evaluate patient. Patient at that time states he she would like to be discharged home. Medical Decision Making - Medical Decision Making Was pt. sent in by a medical professional or institution (, PA, UTILITY BAG ASSEMBLER, urgent care, hospital, or detention...) When possible be specific @ -No Did you speak to anyone other than the patient for history (EMS, parent, family, police, friend...)? What history was obtained from this source @ -No Did you review nursing and triage notes (agree or disagree)? Why? @ -I reviewed and agree with nursing and triage notes Were old charts reviewed (outside hosp., previous admission, EMS record, old EK G, old radiological studies, urgent care reports/EKG's, detention records)? Report findings @ -Yes, I reviewed ER visit notes and laboratory studies from 08-27-2024. CT abdomen pelvis was at that time negative for acute process Differential Diagnosis (chest pain, altered mental status, abdominal pain women, abdominal pain men, vaginal bleeding, weakness, fever, dyspnea, syncope, headache, dizziness, GI bleed, back pain, seizure, CVA, palpatations, mental health, musculoskeletal)? @ -Differential Abdominal Pain Women:Appendicitis, Cholecystitis, diverticulosis, ischemic bowel, pancreatitis, hepatitis, UTI, gastroenteritis, AAA, incarcerated hernia, bowel obstruction, constipation, inflammatory bowel, hepatitis, peptic ulcer disease, splenic infarction, perforated viscus, vulvitis, ovarian torsion, PID, kidney stone, placenta abruption, this is not meant to be an all-inclusive list EKG interpreted by me (3pts min.). @ -As above X-rays interpreted by me (1pt min.). @ -Chest x-ray showing increasing left pleural effusion and left lung base opacification. Resolution of the small right pleural effusion. CT interpreted by me (1pt min.). @ -None done U/S interpreted by me (1pt. min.). @ -None done What testing was considered but not performed or refused? (CT, X-rays, U/S, lab s)? Why? @ -None What meds were considered but not given or refused? Why? @ -None Did you discuss the management of the patient with other professionals (professionals i.e. , PA, UTILITY BAG ASSEMBLER, lab, RT, psych nurse, marriage and family social worker, termite renewal inspector, teacher, motor equipment commanding officer, business case analyst)? Give summary @ -Case discussed with Dr. Wang, [facility], for admission. She states to clear admission with cardiothoracic surgery prior to medical admission. Case discussed with Elfego, cardiothoracic who advised against admission. He did state to the ground admission by Dr. Dhillon if he would like to intervene on pulmonary effusions. Don to evaluate patient in the ER, patient at the time stated she would like to be discharged. Was smoking cessation discussed for >3mins.? @ -No Was critical care preformed (if so, how long)? @ -No Were there social determinants of health that impacted care today? How? (Homelessness, low income, unemployed, alcoholism, drug addiction, transportation, low edu. Level, literacy, decrease access to med. care, group home, rehab)? @ -No Was there de-escalation of care discussed even if they declined (Discuss DNR or withdrawal of care, Hospice)? DNR status @ -No What co-morbidities impacted this encounter? (DM, HTN, Smoking, COPD, CAD, Cancer, CVA, ARF, Chemo, Hep., AIDS, mental health diagnosis, sleep apnea, morbid obesity)? @ -Recent triple bypass. Was patient admitted / discharged? Hospital course, mention meds given and route, prescriptions, significant lab abnormalities, going to OR and other pertinent info. @ -Discharge. 49-year-old female presented to ER with a chief complaint of nausea, vomiting and abdominal pain. History and physical exam completed. Vitals within normal limits. Patient in no signs of acute distress and nontoxic-appearing. Exam remarkable for umbilical/epigastric abdominal pain with normal bowel sounds. No rebound or guarding. There is a healing midline surgical incision present. No evidence of infection. Laboratory studies obtained appear to be at patient's baseline. Normocytic normochromic anemia hemoglobin 9.5. WBC 10. Lactic 2.6 patient did receive IV bolus at that time. Chronic transaminitis. Viral swabs negative. Troponin 0.076 which is decreased from patient's visit on 08-22-2024 at 0.133. Chest x-ray showing increasing left pleural effusion and left lung base opacification. Patient received symptomatic control in the ER. Admission was considered due to intractable nausea vomiting. Admission was discussed with Dr. Wang [facility], who would like admission cleared by CT surgery prior to admission. Case discussed with Elfego, cardiothoracic team who states patient can be discharged unless Dr. Dhillon whould like to intervene on pleural effusion. Elfego did evaluate patient in the emergency department. Patient at the time stated she would like to be discharged. Patient is stable for discharge at that time. After discharge I did speak with Dr. Dhillon who would not like to intervene on pleural effusion. Patient discharged in stable condition with follow-up to PCP in the next 1 [address] Ortiz as scheduled. Zofran prescribed. Return parameters discussed. Patient discharged in stable condition. Patient verbally expressed understanding agree with care plan. Case discussed with ED attending, Dr. Clayton. Undiagnosed new problem with uncertain prognosis? @ -No Drug Therapy requiring intensive monitoring for toxicity (Heparin, Nitro, Insulin, Cardizem)? @ -No Were any procedures done? @ -No Diagnosis/symptom? @ -Nausea/vomiting Acute, or Chronic, or Acute on Chronic? @ -Acute Uncomplicated (without systemic symptoms) or Complicated (systemic symptoms)? @ -Complicated Side effects of treatment? @ -No Exacerbation, Progression, or Severe Exacerbation? @ -No Poses a threat to life or bodily function? How? (Chest pain, [place], RI, pneumonia, PE, COPD, DKA, ARF, appy, cholecystitis, CVA, Diverticulitis, Homicidal, Suicidal, threat to staff... and all critical care pts) @ -No - Lab Data Result diagrams: 08/28/24 07:20 08/28/24 07:20 Lab Results 08/28/24 08/28/24 08/28/24 Range/Units 07:20 07:20 07:20 WBC 10.0 (3.8-10.6) k/uL RBC 3.38 L (3.80-5.40) m/uL Hgb 9.5 L (11.4-16.0) gm/dL Hct 30.6 L (34.0-46.0) % MCV 90.7 (80.0-100.0) fL MCH 28.2 (25.0-35.0) pg MCHC 31.1 (31.0-37.0) g/dL RDW 15.9 H (11.5-15.5) % Plt Count 233 (150-450) k/uL MPV 8.9 Neutrophils % 78 % Lymphocytes % 12 % Monocytes % 7 % Eosinophils % 1 % Basophils % 0 % Neutrophils # 7.8 H (1.3-7.7) k/uL Lymphocytes # 1.2 (1.0-4.8) k/uL Monocytes # 0.7 (0-1.0) k/uL Eosinophils # 0.1 (0-0.7) k/uL Basophils # 0.0 (0-0.2) k/uL Hypochromasia Marked Poikilocytosis Moderate PT (10.0-12.5) sec INR (<1.2) APTT (22.0-30.0) sec Sodium 137 (137-145) mmol/L Potassium 3.5 (3.5-5.1) mmol/L Chloride 103 (98-107) mmol/L Carbon Dioxide 26 (22-30) mmol/L Anion Gap 8 mmol/L BUN 21 H (7-17) mg/dL Creatinine 0.70 (0.52-1.04) mg/dL Est GFR (CKD-EPI)AfAm >90 (>60 ml/min/1.73 sqM) Est GFR (CKD-EPI)NonAf >90 (>60 ml/min/1.73 sqM) Glucose 164 H (74-99) mg/dL Lactic Ac Sepsis Rflx Plasma Lactic Acid Tristin 2.6 H* (0.7-2.0) mmol/L Calcium 8.6 (8.4-10.2) mg/dL Total Bilirubin 1.8 H (0.2-1.3) mg/dL AST 62 H (14-36) U/L ALT 42 H (4-34) U/L Alkaline Phosphatase 128 H (38-126) U/L Troponin I (0.000-0.034) ng/mL Total Protein 6.6 (6.3-8.2) g/dL Albumin 3.3 L (3.5-5.0) g/dL Amylase 88 (30-110) U/L Lipase 331 H (23-300) U/L Influenza Type A (PCR) (Not Detectd) Influenza Type B (PCR) (Not Detectd) RSV (PCR) (Not Detectd) SARS-CoV-2 (PCR) (Not Detectd) 08/28/24 08/28/24 08/28/24 Range/Units 08:00 08:23 08:23 WBC (3.8-10.6) k/uL RBC (3.80-5.40) m/uL Hgb (11.4-16.0) gm/dL Hct (34.0-46.0) % MCV (80.0-100.0) fL MCH (25.0-35.0) pg MCHC (31.0-37.0) g/dL RDW (11.5-15.5) % Plt Count (150-450) k/uL MPV Neutrophils % % Lymphocytes % % Monocytes % % Eosinophils % % Basophils % % Neutrophils # (1.3-7.7) k/uL Lymphocytes # (1.0-4.8) k/uL Monocytes # (0-1.0) k/uL Eosinophils # (0-0.7) k/uL Basophils # (0-0.2) k/uL Hypochromasia Poikilocytosis PT 14.1 H (10.0-12.5) sec INR 1.4 H (<1.2) APTT 22.1 (22.0-30.0) sec Sodium (137-145) mmol/L Potassium (3.5-5.1) mmol/L Chloride (98-107) mmol/L Carbon Dioxide (22-30) mmol/L Anion Gap mmol/L BUN (7-17) mg/dL Creatinine (0.52-1.04) mg/dL Est GFR (CKD-EPI)AfAm (>60 ml/min/1.73 sqM) Est GFR (CKD-EPI)NonAf (>60 ml/min/1.73 sqM) Glucose (74-99) mg/dL Lactic Ac Sepsis Rflx Y Plasma Lactic Acid Tristin (0.7-2.0) mmol/L Calcium (8.4-10.2) mg/dL Total Bilirubin (0.2-1.3) mg/dL AST (14-36) U/L ALT (4-34) U/L Alkaline Phosphatase (38-126) U/L Troponin I 0.076 H* (0.000-0.034) ng/mL Total Protein (6.3-8.2) g/dL Albumin (3.5-5.0) g/dL Amylase (30-110) U/L Lipase (23-300) U/L Influenza Type A (PCR) (Not Detectd) Influenza Type B (PCR) (Not Detectd) RSV (PCR) (Not Detectd) SARS-CoV-2 (PCR) (Not Detectd) 08/28/24 Range/Units 08:23 WBC (3.8-10.6) k/uL RBC (3.80-5.40) m/uL Hgb (11.4-16.0) gm/dL Hct (34.0-46.0) % MCV (80.0-100.0) fL MCH (25.0-35.0) pg MCHC (31.0-37.0) g/dL RDW (11.5-15.5) % Plt Count (150-450) k/uL MPV Neutrophils % % Lymphocytes % % Monocytes % % Eosinophils % % Basophils % % Neutrophils # (1.3-7.7) k/uL Lymphocytes # (1.0-4.8) k/uL Monocytes # (0-1.0) k/uL Eosinophils # (0-0.7) k/uL Basophils # (0-0.2) k/uL Hypochromasia Poikilocytosis PT (10.0-12.5) sec INR (<1.2) APTT (22.0-30.0) sec Sodium (137-145) mmol/L Potassium (3.5-5.1) mmol/L Chloride (98-107) mmol/L Carbon Dioxide (22-30) mmol/L Anion Gap mmol/L BUN (7-17) mg/dL Creatinine (0.52-1.04) mg/dL Est GFR (CKD-EPI)AfAm (>60 ml/min/1.73 sqM) Est GFR (CKD-EPI)NonAf (>60 ml/min/1.73 sqM) Glucose (74-99) mg/dL Lactic Ac Sepsis Rflx Plasma Lactic Acid Tristin (0.7-2.0) mmol/L Calcium (8.4-10.2) mg/dL Total Bilirubin (0.2-1.3) mg/dL AST (14-36) U/L ALT (4-34) U/L Alkaline Phosphatase (38-126) U/L Troponin I (0.000-0.034) ng/mL Total Protein (6.3-8.2) g/dL Albumin (3.5-5.0) g/dL Amylase (30-110) U/L Lipase (23-300) U/L Influenza Type A (PCR) Not Detected (Not Detectd) Influenza Type B (PCR) Not Detected (Not Detectd) RSV (PCR) Not Detected (Not Detectd) SARS-CoV-2 (PCR) Not Detected (Not Detectd) - EKG Data -: EKG Interpreted by Me EKG Comments: EKG taken at 6: 31 showing a sinus rhythm with sinus arrhythmia. No ST segment depressions or elevations. T wave inversion in the lateral leads. Ventricular rate 93, DC 116, QRS duration 98, QT/QTc 323/373 - Radiology Data Radiology results: report reviewed, image reviewed Disposition Clinical Impression: Nausea and vomiting Disposition: HOME SELF-CARE Condition: Stable Instructions (If sedation given, give patient instructions): Acute Nausea and Vomiting (ED) Additional Instructions: Follow-up with PCP and Dr. Ortiz as scheduled. Return to the ER for any new or worsening symptoms. Prescriptions: Ondansetron Odt [Zofran Odt] 4 mg PO Q8HR PRN #10 tab PRN Reason: Nausea Is patient prescribed a controlled substance at d/c from ED?: No Referrals: None,Stated [Primary Care Provider] - 1-2 days Forms: Area PCPs Time of Disposition: 11:31
[2024-08-28 09:11] LABS: INR 1.4 (<1.2); Partial Thromboplastin Time 22.1 sec (22.0-30.0); Prothrombin Time 14.1 sec (10.0-12.5)
--- NOTE | 2024-08-28 11:07 | XR ---
EXAMINATION TYPE: XR chest 2V DATE OF EXAM: 08/28/2024 COMPARISON: 08/23/2024 HISTORY: Nausea and vomiting TECHNIQUE: Frontal and lateral views of the chest are obtained. FINDINGS: There is increasing left pleural effusion. The possibility of pneumonia at the left base is not exclu ded. The right lung is clear. The small effusion seen on the prior study has resolved. The heart size is normal. No pneumothorax. The osseous structures are intact. IMPRESSION: 1. Increasing left pleural effusion and left lung base opacification. 2. Resolution of the small right pleural effusion. IMPRESSION: No acute cardiopulmonary process. [facility], , 08/28/2024 11:04 AM
[2024-08-28 11:52] VITALS: BP 130/89; PULSE 101; TEMP 98.4
== END 2024-08-28 11:57 | disposition home or self-care (01) ==
LOC: EC 06:20
CPT/HCPCS: 36415; 71046; 80053; 82150; 83605; 83690; 84484; 85025; 85610; 85730; 87636; 93005; 96361; 96374; 96375; 99285

== ENCOUNTER 2024-08-29 03:33 | Inpatient (IN) | payer BC ==
[2024-08-29] MEDS: ONDANSETRON 4 MG/2 ML VIAL IVP STA (04:04)
[2024-08-29] MEDS: MORPHINE SULFATE 4 MG/ML SYRINGE IV STA (04:04)
[2024-08-29] MEDS: SODIUM CHLORIDE 0.9% 1,000 ML IV STA (04:05)
[2024-08-29 04:17] LABS: Anisocytosis Slight; Basophils % (A) 0 %; Eosinophils # (A) 0.5 k/uL (0-0.7); Eosinophils % (A) 5 %; HCT 32.3 % (34.0-46.0); HGB 9.7 gm/dL (11.4-16.0); Hypochromasia Marked; Lymphocytes # (A) 1.5 k/uL (1.0-4.8); Lymphocytes % (A) 16 %; MCH 27.5 pg (25.0-35.0); MCV 91.7 fL (80.0-100.0); Mean Platelet Volume 8.6; Monocytes # (A) 0.7 k/uL (0-1.0); Monocytes % (A) 7 %; Neutrophils # (A) 6.4 k/uL (1.3-7.7); Neutrophils % (A) 70 %; Platelet Count 262 k/uL (150-450); Poikilocytosis Moderate; RBC 3.53 m/uL (3.80-5.40); RDW 16.1 % (11.5-15.5); WBC 9.1 k/uL (3.8-10.6)
[2024-08-29 04:29] LABS: ALT 50 U/L (4-34); AST 92 U/L (14-36); African American GFR (CKD) >90 (>60 ml/min/1.73 sqM); Albumin 3.3 g/dL (3.5-5.0); Alkaline Phosphatase 141 U/L (38-126); Amylase 72 U/L (30-110); Anion Gap 9 mmol/L; Blood Urea Nitrogen 17 mg/dL (7-17); Calcium 8.4 mg/dL (8.4-10.2); Carbon Dioxide 21 mmol/L (22-30); Chloride 107 mmol/L (98-107); Glucose 173 mg/dL (74-99); Lipase 301 U/L (23-300); Non-African American GFR(CKD) 87 (>60 ml/min/1.73 sqM); Potassium 3.3 mmol/L (3.5-5.1); Sodium 137 mmol/L (137-145); Total Protein 6.5 g/dL (6.3-8.2)
[2024-08-29] MEDS: METOCLOPRAMIDE 5 MG/ML 2 ML VIAL IVP STA (05:15)
[2024-08-29] MEDS: HYDROmorphone 0.5 MG/0.5 ML SYRINGE IVP STA (06:13)
--- NOTE | 2024-08-29 07:44 | CT ---
EXAMINATION TYPE: CT abdomen pelvis wo con DATE OF EXAM: 08/29/2024 HISTORY: abd pain CT DLP: 1171.4 mGycm. Automated Exposure Control for Dose Reduction was Utilized. TECHNIQUE: CT scan of the abdomen and pelvis is performed without oral or IV contrast. COMPARISON: 06/28/2021 FINDINGS: Within the limitations of a non-contrast study, the following observations are made. There is a large left pleural effusion with adjacent lung consolidation likely lung atelectasis or pn eumonia. There is a [id number] right pleural effusion. There is surgical absence of the gallbladder. There is no biliary ductal dilatation. There is no organomegaly involving the liver, pancreas, spleen or adrenal glands. The contour of the liver is lobulated suggesting cirrhosis. There is a tight cluster of left renal calcifications in the largest of which is 12 mm. There are mul tiple nonobstructing right renal calcifications the largest of which is 5 to 6 mm. There is no hydron ephrosis bilaterally. The graft caliber the abdominal aorta is normal and is no aneurysm. The bowel loops are normal in caliber and there is no dilatation or obstruction. No inflammatory feliz ges identified within the mesentery. There is no free intraperitoneal air. There is a small amount of fluid within the cul-de-sac. There is no pelvic mass, abscess or adenopathy. The osseous structures are intact. IMPRESSION: 1. Bilateral renal calculi with no hydronephrosis. 2. No acute changes within the abdomen or pelvis. 3. Bilateral pleural effusions, left greater than right with left lung base infiltrate as described a [facility], , 08/29/2024 7:42 AM
[2024-08-29] MEDS ORDERED: NALOXONE 0.4 MG/ML 1 ML VIAL IV PRN (08:05)
[2024-08-29] MEDS ORDERED: ACETAMINOPHEN TAB 325 MG TAB PO PRN (08:11)
--- NOTE | 2024-08-29 08:27 | ED ---
Nausea/Vomiting/Diarrhea HPI - General Chief complaint: Nausea/Vomiting/Diarrhea Stated complaint: Abd pain, NV Time Seen by Provider: 08/29/24 03:51 Source: patient Mode of arrival: EMS Limitations: no limitations - History of Present Illness Initial comments: This patient is a 49-year-old woman who presents to have evaluation for upper abdominal pain. The patient states that a little over 2 days ago she started to have epigastric pain and now it is along the costal margin bilaterally upper abdomen. She is not able to characterize the pain well but states that it is severe. She has had a number of episodes of vomiting. Initially food content and then dry heaves. She has not noted blood or coffee-ground emesis. No change in bowel movements noted. She is denying chest pain and dyspnea at the moment. She did have on August 09 coronary artery bypass grafting. The patient was seen here yesterday and had workup and was offered admission but she had wanted to go at that time. MD complaint: nausea, vomiting, abdominal pain Onset/Timin -: days(s) Description of Vomiting: food contents - Related Data Home Medications Medication Instructions Recorded Confirmed Omeprazole 20 mg PO DAILY 08/23/24 09/13/24 Albuterol Inhaler [Ventolin Hfa 1 puff INHALATION DAILY 09/13/24 09/13/24 Inhaler] Atorvastatin [Lipitor] 80 mg PO HS 09/13/24 09/13/24 Budesonide/Formoterol Fumarate 1 puff PO BID 09/13/24 09/13/24 [Budesonide-Formoterol 80-4.5] Magnesium Citrate and Oxide 250 mg PO DAILY 09/13/24 09/13/24 [Magnesium] Potassium Chloride ER [K-Dur 20] 20 meq PO DAILY 09/13/24 09/13/24 Spironolactone [Aldactone] 12.5 mg PO DAILY 09/13/24 09/13/24 Previous Rx's Medication Instructions Recorded Metoprolol Tartrate [Lopressor] 25 mg PO BID #60 tab 08/13/24 Losartan [Cozaar] 12.5 mg PO DAILY #30 tab 08/19/24 Colchicine [Colcrys] 1.2 mg PO DAILY 30 Days #60 each 09/01/24 Allergies Allergy/AdvReac Type Severity Reaction Status Date / Time capsaicin Allergy Rash/Hives/ Verified 08/29/24 09:37 Swelling Review of Systems ROS Statement: Those systems with pertinent positive or pertinent negative responses have been documented in the HPI. ROS Other: All systems not noted in ROS Statement are negative. Constitutional: Denies: fever, chills, weakness Respiratory: Denies: cough, dyspnea, hemoptysis Cardiovascular: Denies: chest pain, palpitations, orthopnea, edema Gastrointestinal: Reports: abdominal pain, nausea, vomiting. Denies: diarrhea, constipation, melena, hematochezia Genitourinary: Denies: dysuria, hematuria Musculoskeletal: Denies: back pain Skin: Denies: rash Neurological: Denies: headache, weakness, numbness Past Medical History Past Medical History: Coronary Artery Disease (CAD), Diabetes Mellitus, Hypertension, Osteoarthritis (OA), Skin Disorder Additional Past Medical History / Comment(s): KIDNEY STONES, diet controlled diabetic-no longer needs med, no longer needs BP med, seasonal allergies, abscess right breast, left breast hx. of abscess, yeast in skin fold in abd. cabg aug 09 2024. History of Any Multi-Drug Resistant Organisms: None Reported Past Surgical History: Appendectomy, Breast Surgery, Cholecystectomy, Coronary Bypass/CABG, Heart Catheterization With Stent, Orthopedic Surgery, Tubal Ligation Additional Past Surgical History / Comment(s): carpal tunnel RIGHT WRIST, dental, abcess drainage left breast x2 (July 2016, March 2019, Aug 2019); RT breast I&D 05/22/21, 06/05/21; Left ankle surgery. Past Anesthesia/Blood Transfusion Reactions: No Reported Reaction, Family History of Problems w/ Anesthesia Additional Past Anesthesia/Blood Transfusion Reaction / Comment(s): No blood transfusion to date, mom stopped breathing during a surg. & had to be resuscitated Date of Last Stent Placement:: 07/30/24 Past Psychological History: Anxiety, Bipolar, Depression Smoking Status: Former smoker Past Alcohol Use History: None Reported Past Drug Use History: Marijuana - Past Family History Mother Family Medical History: Cancer Additional Family Medical History / Comment(s): CERVICAL CANCER Father Family Medical History: Unable to Obtain Additional Family Medical History / Comment(s): Patient did not know her father General Exam Limitations: no limitations General appearance: alert, in no apparent distress Head exam: Present: atraumatic, normocephalic Eye exam: Present: normal appearance. Absent: scleral icterus, conjunctival injection ENT exam: Present: normal oropharynx Neck exam: Present: normal inspection Respiratory exam: Present: normal lung sounds bilaterally. Absent: respiratory distress, wheezes, rales, rhonchi, stridor, accessory muscle use Cardiovascular Exam: Present: normal rhythm, tachycardia (Heart rate 104 at my exam), normal heart sounds. Absent: systolic murmur, diastolic murmur, rubs, gallop GI/Abdominal exam: Present: soft, tenderness (There is mild epigastric tenderness, no rebound or guarding). Absent: distended, guarding, rebound, rigid, mass, pulsatile mass, hernia Extremities exam: Present: normal inspection, normal capillary refill. Absent: pedal edema, calf tenderness Back exam: Present: normal inspection. Absent: CVA tenderness (R), CVA tenderness (L) Neurological exam: Present: alert Skin exam: Present: warm, dry, intact, normal color. Absent: rash Course Vital Signs 08/29/24 08/29/24 08/29/24 03:47 05:22 10:17 Temperature 98.3 F Pulse Rate 119 H 80 98 Respiratory 22 18 17 Rate Blood Pressure 170/75 188/88 176/82 O2 Sat by Pulse 94 L 98 96 Oximetry 08/29/24 14:56 Temperature Pulse Rate 97 Respiratory 18 Rate Blood Pressure 109/63 O2 Sat by Pulse 100 Oximetry Medical Decision Making - Medical Decision Making Patient is 49-year-old woman who is approximately 3 weeks post CABG presenting with 2 days of abdominal pain, nausea and vomiting. Given that this is return visit will admit the patient to observation and have consultation. Her initial workup here does not reveal exact etiology. The patient had CT scan of the abdomen and pelvis that I interpreted as showing presence of pleural effusions. No free air or obstruction. No definite surgical condition of the abdomen Was pt. sent in by a medical professional or institution (, PA, SHAREPOINT MANAGER, urgent care, hospital, or alf...) When possible be specific @ -[No] Did you speak to anyone other than the patient for history (EMS, parent, family, police, friend...)? What history was obtained from this source @ -[No] Did you review nursing and triage notes (agree or disagree)? Why? @ -[I reviewed and agree with nursing and triage notes] Were old charts reviewed (outside hosp., previous admission, EMS record, old EKG, old radiological studies, urgent care reports/EKG's, alf records)? Report findings @ -[No old charts were reviewed] Differential Diagnosis (chest pain, altered mental status, abdominal pain women, abdominal pain men, vaginal bleeding, weakness, fever, dyspnea, syncope, headache, dizziness, GI bleed, back pain, seizure, CVA, palpatations, mental health, musculoskeletal)? @ -[Differential Abdominal Pain Women: Appendicitis, Cholecystitis, diverticulosis, ischemic bowel, pancreatitis, hepatitis, UTI, gastroenteritis, AAA, incarcerated hernia, bowel obstruction, constipation, inflammatory bowel, hepatitis, peptic ulcer disease, splenic infarction, perforated viscus, vulvitis, ovarian torsion, PID, kidney stone, placenta abruption, this is not meant to be an all-inclusive list EKG interpreted by me (3pts min.). @ -[I interpreted as above X-rays interpreted by me (1pt min.). @ -[None done] CT interpreted by me (1pt min.). @ -[I interpreted as above U/S interpreted by me (1pt. min.). @ -[None done] What testing was considered but not performed or refused? (CT, X-rays, U/S, labs)? Why? @ -[None] What meds were considered but not given or refused? Why? @ -[None] Did you discuss the management of the patient with other professionals (professionals i.e. , PA, SHAREPOINT MANAGER, lab, RT, psych nurse, social welfare research worker, resolution agent, teacher, tourist information officer, case advocate)? Give summary @ -[No] Was smoking cessation discussed for >3mins.? @ -[No] Was critical care preformed (if so, how long)? @ -[No] Were there social determinants of health that impacted care today? How? ([place] elessness, low income, unemployed, alcoholism, drug addiction, transportation, low edu. Level, literacy, decrease access to med. care, assisted, rehab)? @ -[No] Was there de-escalation of care discussed even if they declined (Discuss DNR or withdrawal of care, Hospice)? DNR status @ -[No] What co-morbidities impacted this encounter? (DM, HTN, Smoking, COPD, CAD, Cancer, CVA, ARF, Chemo, Hep., AIDS, mental health diagnosis, sleep apnea, morbid obesity)? @ -[None] Was patient admitted / discharged? Hospital course, mention meds given and route, prescriptions, significant lab abnormalities, going to OR and other pertinent info. @ -[As above Undiagnosed new problem with uncertain prognosis? @ -[No] Drug Therapy requiring intensive monitoring for toxicity (Heparin, Nitro, Insulin, Cardizem)? @ -[No] Were any procedures done? @ -[No] Diagnosis/symptom? @ -[Acute abdominal pain Pleural effusions Acute, or Chronic, or Acute on Chronic? @ -[Acute Uncomplicated (without systemic symptoms) or Complicated (systemic symptoms)? @ -[Uncomplicated Side effects of treatment? @ -[No] Exacerbation, Progression, or Severe Exacerbation? @ -[No] Poses a threat to life or bodily function? How? (Chest pain, [place], [place], pneumonia, PE, COPD, DKA, ARF, appy, cholecystitis, CVA, Diverticulitis, Homicidal, Suicidal, threat to staff... and all critical care pts) @ -[No] - Lab Data Result diagrams: 09/01/24 09:28 09/01/24 09:28 Lab Results 08/29/24 08/29/24 08/29/24 Range/Units 04:10 04:10 04:10 WBC 9.1 (3.8-10.6) k/uL RBC 3.53 L (3.80-5.40) m/uL Hgb 9.7 L (11.4-16.0) gm/dL Hct 32.3 L (34.0-46.0) % MCV 91.7 (80.0-100.0) fL MCH 27.5 (25.0-35.0) pg MCHC 30.0 L (31.0-37.0) g/dL RDW 16.1 H (11.5-15.5) % Plt Count 262 (150-450) k/uL MPV 8.6 Neutrophils % 70 % Lymphocytes % 16 % Monocytes % 7 % Eosinophils % 5 % Basophils % 0 % Neutrophils # 6.4 (1.3-7.7) k/uL Lymphocytes # 1.5 (1.0-4.8) k/uL Monocytes # 0.7 (0-1.0) k/uL Eosinophils # 0.5 (0-0.7) k/uL Basophils # 0.0 (0-0.2) k/uL Hypochromasia Marked Poikilocytosis Moderate Anisocytosis Slight Sodium 137 (137-145) mmol/L Potassium 3.3 L (3.5-5.1) mmol/L Chloride 107 (98-107) mmol/L Carbon Dioxide 21 L (22-30) mmol/L Anion Gap 9 mmol/L BUN 17 (7-17) mg/dL Creatinine 0.81 (0.52-1.04) mg/dL Est GFR (CKD-EPI)AfAm >90 (>60 ml/min/1.73 sqM) Est GFR (CKD-EPI)NonAf 87 (>60 ml/min/1.73 sqM) Glucose 173 H (74-99) mg/dL Calcium 8.4 (8.4-10.2) mg/dL Total Bilirubin 2.0 H (0.2-1.3) mg/dL AST 92 H (14-36) U/L ALT 50 H (4-34) U/L Alkaline Phosphatase 141 H (38-126) U/L NT-Pro-B Natriuret Pep 772 pg/mL Total Protein 6.5 (6.3-8.2) g/dL Albumin 3.3 L (3.5-5.0) g/dL Amylase 72 (30-110) U/L Lipase 301 H (23-300) U/L Disposition Clinical Impression: Pleural effusion, Abdominal pain Disposition: ADMITTED IP TO THIS HOSP Condition: Good Is patient prescribed a controlled substance at d/c from ED?: No
[2024-08-29] MEDS: SODIUM CHLORIDE 0.9% 1,000 ML IV SCH (10:08)
[2024-08-29] MEDS: PANTOPRAZOLE 40 MG/10 ML VIAL IV SCH (10:15)
[2024-08-29] MEDS: MORPHINE SULFATE 4 MG/ML SYRINGE IV PRN (10:18)
--- NOTE | 2024-08-29 12:03 | P.HPIM ---
History of Present Illness Patient is a 49-year-old female came in with complaints of nausea vomiting and mid abdominal pain crampy in nature severe, nonradiating. Patient CT of the abdomen is significant for multiple bilateral renal stones without any hydronephrosis the larger 1 being 12 mm. Patient last bowel movement was about 2 to 3 days ago patient does not have any significant tenderness on exam. Patient also found to have significant pleural effusion bilaterally left more than right. Patient had a recent coronary bypass grafting on August 09. Patient had a normal ejection fraction in the past he did not have any BNP available at this time already BNP patient does take Bumex 1 mg daily at home along with Aldactone. Patient has mildly elevated nonspecific elevation of lipase, not consistent with pancreatitis. REVIEW OF SYSTEMS: All other systems are negative except those mentioned in the HPI PHYSICAL EXAMINATION: GENERAL: The patient is alert and oriented x3, not in any acute distress. Well developed, well nourished. HEENT: Pupils are round and equally reacting to light. EOMI. No scleral icterus. No conjunctival pallor. Normocephalic, atraumatic. No pharyngeal erythema. No thyromegaly. CARDIOVASCULAR: S1 and S2 present. No murmurs, rubs, or gallops. PULMONARY: Chest is clear to auscultation, no wheezing or crackles. ABDOMEN: Soft, nontender, nondistended, normoactive bowel sounds. No palpable organomegaly. MUSCULOSKELETAL: No joint swelling or deformity. EXTREMITIES: No cyanosis, clubbing, or pedal edema. NEUROLOGICAL: Gross neurological examination did not reveal any focal deficits. SKIN: No rashes. Assessment and plan -Abdominal pain: Etiology is not clear patient's pain is not typical for renal calculi although patient has multiple of them 1-being 12 mm, I will consult urology. Patient is on Protonix which will be continued constipation may be contributing to her pain as well. -Bilateral pleural effusions recent cardiothoracic surgery because of which cardiothoracic surgery was consulted from ER. Patient may have chronic diastolic dysfunction patient will be started on IV Bumex. Will obtain a BNP. -Coronary artery disease with recent CABG -Hypertension -Nephrolithiasis -Hyperlipidemia -Depression For above-mentioned chronic medical problems patient will be resumed on appro priate home medications DVT prophylaxis: Lovenox Past Medical History Past Medical History: Coronary Artery Disease (CAD), Diabetes Mellitus, Hyper tension, Osteoarthritis (OA), Skin Disorder Additional Past Medical History / Comment(s): KIDNEY STONES, diet controlled diabetic-no longer needs med, no longer needs BP med, seasonal allergies, abscess right breast, left breast hx. of abscess, yeast in skin fold in abd. cab g aug 09 2024. History of Any Multi-Drug Resistant Organisms: None Reported Past Surgical History: Appendectomy, Breast Surgery, Cholecystectomy, Coronary Bypass/CABG, Heart Catheterization With Stent, Orthopedic Surgery, Tubal Ligation Additional Past Surgical History / Comment(s): carpal tunnel RIGHT WRIST, dental, abcess drainage left breast x2 (July 2016, March 2019, Aug 2019); RT breast I&D 05/22/21, 06/05/21; Left ankle surgery. Past Anesthesia/Blood Transfusion Reactions: No Reported Reaction, Family History of Problems w/ Anesthesia Additional Past Anesthesia/Blood Transfusion Reaction / Comment(s): No blood transfusion to date, mom stopped breathing during a surg. & had to be resuscitated Date of Last Stent Placement:: 07/30/24 Past Psychological History: Anxiety, Bipolar, Depression Smoking Status: Former smoker Past Alcohol Use History: None Reported Past Drug Use History: Marijuana - Past Family History Mother Family Medical History: Cancer Additional Family Medical History / Comment(s): CERVICAL CANCER Father Family Medical History: Unable to Obtain Additional Family Medical History / Comment(s): Patient did not know her father Medications and Allergies Home Medications Medication Instructions Recorded Confirmed Type Aspirin 81 mg PO DAILY tab 08/01/24 08/29/24 Rx Atorvastatin [Lipitor] 40 mg PO DAILY #30 tab 08/13/24 08/29/24 Rx Clopidogrel [Plavix] 75 mg PO DAILY #30 tab 08/13/24 08/29/24 Rx Metoprolol Tartrate [Lopressor] 25 mg PO BID #60 tab 08/13/24 08/29/24 Rx Bumetanide [BUMEX] 1 mg PO DAILY #7 tab 08/19/24 08/29/24 Rx Calcium Carbonate [Tums] 1,000 mg PO Q4HR PRN tab 08/19/24 08/29/24 Rx Losartan [Cozaar] 12.5 mg PO DAILY #30 tab 08/19/24 08/29/24 Rx Spironolactone [Aldactone] 12.5 mg PO DAILY #30 tab 08/19/24 08/29/24 Rx HYDROcodone/APAP 5-325MG [[place] 1 tab PO Q6HR 08/23/24 08/29/24 History 5-325] Omeprazole 20 mg PO DAILY 08/23/24 08/29/24 History methylPREDNISolone Dose Pack See Taper PO DIRECTED 08/27/24 08/29/24 History [Medrol Dose Pack] Ondansetron Odt [Zofran Odt] 4 mg PO Q8HR PRN #10 tab 08/28/24 08/29/24 Rx Allergies Allergy/AdvReac Type Severity Reaction Status Date / Time capsaicin Allergy Rash/Hives/ Verified 08/29/24 09:37 Swelling Physical Exam Vitals: Vital Signs Temp Pulse Resp BP Pulse Ox 08/29/24 10:17 98 17 176/82 96 08/29/24 05:22 80 18 188/88 98 08/29/24 03:47 98.3 F 119 H 22 170/75 94 L Intake and Output 08/28/24 08/29/24 08/29/24 22:59 06:59 14:59 Other: Weight 102.058 kg Results CBC & Chem 7: 08/29/24 04:10 08/29/24 04:10 Labs: Abnormal Lab Results - Last 24 Hours (Table) 08/29/24 08/29/24 Range/Units 04:10 04:10 RBC 3.53 L (3.80-5.40) m/uL Hgb 9.7 L (11.4-16.0) gm/dL Hct 32.3 L (34.0-46.0) % MCHC 30.0 L (31.0-37.0) g/dL RDW 16.1 H (11.5-15.5) % Potassium 3.3 L (3.5-5.1) mmol/L Carbon Dioxide 21 L (22-30) mmol/L Glucose 173 H (74-99) mg/dL Total Bilirubin 2.0 H (0.2-1.3) mg/dL AST 92 H (14-36) U/L ALT 50 H (4-34) U/L Alkaline Phosphatase 141 H (38-126) U/L Albumin 3.3 L (3.5-5.0) g/dL Lipase 301 H (23-300) U/L
[2024-08-29] MEDS: BUMETANIDE 0.25 MG/ML 4 ML VIAL IVP SCH (13:34)
[2024-08-29] MEDS: BUMETANIDE 0.25 MG/ML 4 ML VIAL IVP STA (13:39)
[2024-08-29] MEDS: POTASSIUM CHLORIDE ER 20 MEQ TAB.ER PO STA (13:46)
[2024-08-29] MEDS: LOSARTAN 25 MG TAB PO SCH (13:46)
[2024-08-29] MEDS: HYDROcodone/APAP 5-325MG 1 EACH TAB PO SCH (13:47)
[2024-08-29] MEDS: polyethylene glycoL 3350 17 GM POWD.PACK PO PRN (13:49)
[2024-08-29] MEDS: SENNOSIDES 8.6 MG TAB PO PRN (13:49)
[2024-08-29 14:47] LABS: Appearance,Urine Cloudy (Clear); Bacteria,Urine Rare /hpf; Bilirubin,Urine Negative (Negative); Blood,Urine Negative (Negative); Color,Urine Yellow; Glucose,Urine (UA) Negative (Negative); Ketones,Urine Trace (Negative); Leukocyte Esterase,Urine Trace (Negative); Mucus,Urine Many /hpf; Nitrite,Urine Negative (Negative); PH, Urine 5.5 (5.0-8.0); Protein,Urine Negative (Negative); RBC,Urine 1 /hpf (0-5); Specific Gravity,Urine 1.021 (1.001-1.035); Squamous Epithelial Cell,Urine 1 /hpf (0-4); Urobilinogen,Urine <2.0 mg/dL (<2.0); WBC,Urine 2 /hpf (0-5)
[2024-08-29] MEDS: METOPROLOL TARTRATE 25 MG TAB PO SCH (20:05)
[2024-08-29] MEDS: HYDROmorphone 0.5 MG/0.5 ML SYRINGE IVP PRN (20:06)
--- NOTE | 2024-08-29 23:29 | P.GSCN ---
History of Present Illness History of present illness: This patient is a 49-year-old woman who presents to have evaluation for upper abdominal pain. The patient states that a little over 2 days ago she started to have epigastric pain and now it is along the costal margin bilaterally upper abdomen. She is not able to characterize the pain well but states that it is severe. She has had a number of episodes of vomiting. Initially food content and then dry heaves. She has not noted blood or coffee-ground emesis. No change in bowel movements noted. She is denying chest pain and dyspnea at the moment. She did have on August 09 coronary artery bypass grafting. The patient was seen here yesterday and had workup and was offered admission but she had wanted to go at that time. Past Medical History Past Medical History: Coronary Artery Disease (CAD), Diabetes Mellitus, Hypertension, Osteoarthritis (OA), Skin Disorder Additional Past Medical History / Comment(s): KIDNEY STONES, diet controlled diabetic-no longer needs med, no longer needs BP med, seasonal allergies, abscess right breast, left breast hx. of abscess, yeast in skin fold in abd. cabg aug 09 2024. History of Any Multi-Drug Resistant Organisms: None Reported Past Surgical History: Appendectomy, Breast Surgery, Cholecystectomy, Coronary Bypass/CABG, Heart Catheterization With Stent, Orthopedic Surgery, Tubal Ligation Additional Past Surgical History / Comment(s): carpal tunnel RIGHT WRIST, dental, abcess drainage left breast x2 (July 2016, March 2019, Aug 2019); RT breast I&D 05/22/21, 06/05/21; Left ankle surgery. Past Anesthesia/Blood Transfusion Reactions: No Reported Reaction, Family Hi story of Problems w/ Anesthesia Additional Past Anesthesia/Blood Transfusion Reaction / Comm: No blood transfusion to date, mom stopped breathing during a surg. & had to be re suscitated Date of Last Stent Placement:: 07/30/24 Past Psychological History: Anxiety, Bipolar, Depression Additional Psychological History / Comment(s): Maintained with healthy coping mechanisms; diet and exericse (only suffers from depressive disorder, not the manic type) Smoking Status: Former smoker Past Alcohol Use History: None Reported Additional Past Alcohol Use History / Comment(s): STARTED SMOKING AT AGE 17 QUIT SMOKING March 16, 2021, SMOKED 1PPD Past Drug Use History: Marijuana Additional Drug Use History / Comment(s): COCAINE "YEARS AGO ", smokes maybe 1 joint daily for pain & bipolar - Past Family History Mother Family Medical History: Cancer Additional Family Medical History / Comment(s): CERVICAL CANCER Father Family Medical History: Unable to Obtain Additional Family Medical History / Comment(s): Patient did not know her father Medications and Allergies Home Medications Medication Instructions Recorded Confirmed Type Aspirin 81 mg PO DAILY tab 08/01/24 08/29/24 Rx Atorvastatin [Lipitor] 40 mg PO DAILY #30 tab 08/13/24 08/29/24 Rx Clopidogrel [Plavix] 75 mg PO DAILY #30 tab 08/13/24 08/29/24 Rx Metoprolol Tartrate [Lopressor] 25 mg PO BID #60 tab 08/13/24 08/29/24 Rx Bumetanide [BUMEX] 1 mg PO DAILY #7 tab 08/19/24 08/29/24 Rx Calcium Carbonate [Tums] 1,000 mg PO Q4HR PRN tab 08/19/24 08/29/24 Rx Losartan [Cozaar] 12.5 mg PO DAILY #30 tab 08/19/24 08/29/24 Rx Spironolactone [Aldactone] 12.5 mg PO DAILY #30 tab 08/19/24 08/29/24 Rx HYDROcodone/APAP 5-325MG [[place] 1 tab PO Q6HR 08/23/24 08/29/24 History 5-325] Omeprazole 20 mg PO DAILY 08/23/24 08/29/24 History methylPREDNISolone Dose Pack See Taper PO DIRECTED 08/27/24 08/29/24 History [Medrol Dose Pack] Ondansetron Odt [Zofran Odt] 4 mg PO Q8HR PRN #10 tab 08/28/24 08/29/24 Rx Allergies Allergy/AdvReac Type Severity Reaction Status Date / Time capsaicin Allergy Rash/Hives/ Verified 08/29/24 09:37 Swelling Surgical - Exam Osteopathic Statement: *. No significant issues noted on an osteopathic structural exam other than those noted in the History and Physical/Consult. Vital Signs Temp Pulse Resp BP Pulse Ox 98.3 F 119 H 22 170/75 94 L 08/29/24 03:47 08/29/24 03:47 08/29/24 03:47 08/29/24 03:47 08/29/24 03:47 gen: nad cv: rrr pul: non labored breathing abd: soft, tender to palpation in epigastric region, no guarding or rebound tenderness Results - Labs 08/29/24 04:10 08/29/24 04:10 Abnormal Lab Results - Last 24 Hours (Table) 08/29/24 08/29/24 08/29/24 Range/Units 04:10 04:10 14:37 RBC 3.53 L (3.80-5.40) m/uL Hgb 9.7 L (11.4-16.0) gm/dL Hct 32.3 L (34.0-46.0) % MCHC 30.0 L (31.0-37.0) g/dL RDW 16.1 H (11.5-15.5) % Potassium 3.3 L (3.5-5.1) mmol/L Carbon Dioxide 21 L (22-30) mmol/L Glucose 173 H (74-99) mg/dL Total Bilirubin 2.0 H (0.2-1.3) mg/dL AST 92 H (14-36) U/L ALT 50 H (4-34) U/L Alkaline Phosphatase 141 H (38-126) U/L Albumin 3.3 L (3.5-5.0) g/dL Lipase 301 H (23-300) U/L Urine Appearance Cloudy H (Clear) Urine Ketones Trace H (Negative) Ur Leukocyte Esterase Trace H (Negative) Urine Bacteria Rare H (None) /hpf Urine Mucus Many H (None) /hpf Diabetes panel 08/29/24 Range/Units 04:10 Sodium 137 (137-145) mmol/L Potassium 3.3 L (3.5-5.1) mmol/L Chloride 107 (98-107) mmol/L Carbon Dioxide 21 L (22-30) mmol/L BUN 17 (7-17) mg/dL Creatinine 0.81 (0.52-1.04) mg/dL Glucose 173 H (74-99) mg/dL Calcium 8.4 (8.4-10.2) mg/dL AST 92 H (14-36) U/L ALT 50 H (4-34) U/L Alkaline Phosphatase 141 H (38-126) U/L Total Protein 6.5 (6.3-8.2) g/dL Albumin 3.3 L (3.5-5.0) g/dL Calcium panel 08/29/24 Range/Units 04:10 Calcium 8.4 (8.4-10.2) mg/dL Albumin 3.3 L (3.5-5.0) g/dL Pituitary panel 08/29/24 Range/Units 04:10 Sodium 137 (137-145) mmol/L Potassium 3.3 L (3.5-5.1) mmol/L Chloride 107 (98-107) mmol/L Carbon Dioxide 21 L (22-30) mmol/L BUN 17 (7-17) mg/dL Creatinine 0.81 (0.52-1.04) mg/dL Glucose 173 H (74-99) mg/dL Calcium 8.4 (8.4-10.2) mg/dL Adrenal panel 08/29/24 Range/Units 04:10 Sodium 137 (137-145) mmol/L Potassium 3.3 L (3.5-5.1) mmol/L Chloride 107 (98-107) mmol/L Carbon Dioxide 21 L (22-30) mmol/L BUN 17 (7-17) mg/dL Creatinine 0.81 (0.52-1.04) mg/dL Glucose 173 H (74-99) mg/dL Calcium 8.4 (8.4-10.2) mg/dL Total Bilirubin 2.0 H (0.2-1.3) mg/dL AST 92 H (14-36) U/L ALT 50 H (4-34) U/L Alkaline Phosphatase 141 H (38-126) U/L Total Protein 6.5 (6.3-8.2) g/dL Albumin 3.3 L (3.5-5.0) g/dL Assessment and Plan Assessment: 49 yo female w/ epigastric pain history of multiple surgeries rule out intermittent obstruction follow up small bowel follow through, if negative possible egd on friday Time with Patient: Less than 30
[2024-08-30 09:06] LABS: ALT 54 U/L (8-44); AST 74 U/L (13-35); Albumin 2.9 g/dL (3.8-4.9); Albumin/Globulin Ratio 1.07 Ratio (1.60-3.17); Alkaline Phosphatase 119 U/L (41-126); BUN/Creat Ratio 15.22 Ratio (12.00-20.00); Blood Urea Nitrogen 13.7 mg/dL (9.0-27.0); Calcium 7.7 mg/dL (8.7-10.3); Carbon Dioxide 25.8 mmol/L (21.6-31.8); Chloride 106 mmol/L (96-109); Globulin 2.7 g/dL (1.6-3.3); Glucose 118 mg/dL (70-110); Potassium 3.7 mmol/L (3.5-5.5); Sodium 140 mmol/L (135-145); Total Bilirubin 1.2 mg/dL (0.3-1.2); Total Protein 5.6 g/dL (6.2-8.2)
[2024-08-30 09:07] LABS: HCT 27.4 % (37.2-46.3); HGB 8.3 g/dL (12.0-15.0); MCH 27.9 pg (27.0-32.0); MCHC 30.3 g/dL (32.0-37.0); MCV 91.9 FL (80.0-97.0); Mean Platelet Volume 11.5 FL (9.5-12.2); NRBC Per 100 WBC 0 X 10*3/uL (0.00-0.01); Platelet Count 214 X 10*3/uL (140-440); RBC 2.98 X 10*6/uL (4.10-5.20); WBC 6.73 X 10*3/uL (4.50-10.00)
--- NOTE | 2024-08-30 09:51 | FL ---
EXAMINATION TYPE: FL small bowel follow through DATE OF EXAM: 08/30/2024 9:41 AM COMPARISON: CT abdomen pelvis most recent from INDICATION: Patient age:Female; 49 years old; Reason for study: abdomina pain; TECHNIQUE: The procedure was explained and patient history elicited. All patient questions were ans wered prior to start of procedure. A revenue audit clerk radiograph of the abdomen was also reviewed. The patient was asked to ingest liquid Barium and incremental frontal abdominal radiographs were then taken until contrast was visualized in the cecum. Fluoroscopic time: None min Fluoroscopic images: None Radiographs taken: 5 DAP: Not reported [id number] FINDINGS: The revenue audit clerk abdominal radiograph demonstrates a normal bowel gas pattern without dilated loops of small or large bowel. There is no evidence of organomegaly or pneumoperitoneum. The visualized osseous str uctures are intact. Right upper quadrant glossectomy clips. Bilateral renal calculi. Contrast is seen extending from the duodenojejunal junction into the cecum after 30 min, which is wit hin the expected time period. The small bowel follows normal distribution and contour without any ev idence of extraluminal or intraluminal irregularity. There is no displacement of bowel loops or extr aluminal extravasation of contrast material. Small bowel mucosal folds are felt to be within normal l imits. IMPRESSION: Normal detailed small bowel examination. [facility], , 08/30/2024 9:44 AM
[2024-08-30] MEDS: ATORVASTATIN 40 MG TAB PO SCH (10:10)
[2024-08-30] MEDS: ENOXAPARIN 40 MG/0.4 ML SYRINGE SQ SCH (10:10)
[2024-08-30] MEDS: ASPIRIN 81 MG PO SCH (10:10)
[2024-08-30] MEDS: CLOPIDOGREL 75 MG TAB PO SCH (10:10)
[2024-08-30] MEDS: SPIRONOLACTONE 25 MG TAB PO SCH (10:58)
--- NOTE | 2024-08-30 12:21 | XR ---
EXAMINATION TYPE: XR chest 1V portable DATE OF EXAM: 08/30/2024 12:07 PM COMPARISON: Chest radiographs from 08/28/2024 TECHNIQUE: XR chest 1V portable Portable AP radiograph of the chest. CLINICAL INDICATION:Female, 49 years old with history of pleural effusions; FINDINGS: Lungs/Pleura: Right lung is clear. Moderate left pleural effusion redemonstrated. No pneumothorax. Pulmonary vascularity: Unremarkable. Heart/mediastinum: Cardiomediastinal silhouette is enlarged and stable. Post-CABG changes. Left atri al appendage occlusion devices present. Musculoskeletal: No acute osseous pathology. Midline sternotomy wires are noted and stable. IMPRESSION: 1. Similar moderate size left pleural effusion. 2. Post-CABG changes. [facility], , 08/30/2024 12:18 PM
--- NOTE | 2024-08-30 13:07 | P.PN ---
Subjective Progress Note Date: 08/30/24 Patient is a 49-year-old female came in with complaints of nausea vomiting and mid abdominal pain crampy in nature severe, nonradiating. Patient CT of the abdomen is significant for multiple bilateral renal stones without any hydronephrosis the larger 1 being 12 mm. Patient last bowel movement was about 2 to 3 days ago patient does not have any significant tenderness on exam. Patient also found to have significant pleural effusion bilaterally left more than right. Patient had a recent coronary bypass grafting on August 09. Patient had a normal ejection fraction in the past he did not have any BNP available at this time already BNP patient does take Bumex 1 mg daily at home along with Aldactone. Patient has mildly elevated nonspecific elevation of lipase, not consistent with pancreatitis. 08/30/24 - Patient seen at bedside today. Stating that she feels better and does not have any pain currently. Urology, surgery, and cardiothoracic surgery all consulted. Urology stated the patient is to follow-up outpatient a few weeks following discharge follow-up on her renal calculi. Per surgery's recommendations small bowel follow-through was completed, suggesting possible EGD if the small bowel follow-through was negative. They will continue to monitor and follow. Patient's vital signs as of this morning showed blood pressure 97/63, heart rate of 67, respiratory rate of 16, saturating 98% on room air. Small bowel follow-through x-ray ordered by surgery done today showing normal detailed small bowel examination. Patient has complained of continued constipation, lactulose 10 mg daily has been added in the hopes of producing a bowel movement. New labs -WBCs 6.73, Hgb 8.3, Hct 27.4, PLT 214; sodium 140, potassium 3.7, BUN 13.7, creatinine 0.9, AST 74, ALT 54 New imaging - small bowel follow-through x-ray showed normal detailed small bowel examination. REVIEW OF SYSTEMS: CONSTITUTIONAL: No fever, no malaise. CARDIOVASCULAR: No chest pain, no palpitations, no syncope. PULMONARY: No shortness of breath, no cough. GASTROINTESTINAL: No diarrhea, no nausea, no vomiting, no abdominal pain. NEUROLOGICAL: No headaches, no weakness. PHYSICAL EXAMINATION: GENERAL: The patient is alert and oriented x3, not in any acute distress. Well developed, well nourished. HEENT: Pupils are round and equally reacting to light. EOMI. No scleral icterus. No conjunctival pallor. Normocephalic, atraumatic. No pharyngeal erythema. No thyromegaly. CARDIOVASCULAR: S1 and S2 present. No murmurs, rubs, or gallops. PULMONARY: Chest is clear to auscultation, no wheezing or crackles. ABDOMEN: Soft, nontender, nondistended, normoactive bowel sounds. No palpable organomegaly. MUSCULOSKELETAL: No joint swelling or deformity. EXTREMITIES: No cyanosis, clubbing, or pedal edema. NEUROLOGICAL: Gross neurological examination did not reveal any focal deficits. SKIN: No rashes. Assessment and plan #Abdominal pain of unclear etiology, possibly secondary to constipation Pain is atypical for renal calculi even though the patient has multiple of them 1 being 12 mm Patient send Protonix which we continued Constipation may be contributing to her pain Patient has not a bowel movement in 3-4 days Small bowel follow-through noted to be unremarkable Added lactulose 10 mg daily #Bilateral pleural effusions possibly secondary to recent cardiothoracic surgery Cardiothoracic surgery was consulted as a result of the patient undergoing recent CABG and now presenting with bilateral pleural effusions Patient may have chronic diastolic dysfunction will be started on IV Bumex BNP was 772 #CAD with recent CABG Patient to CABG on August 09, 2024 Patient 75 mg daily of Plavix and 81 mg daily aspirin Cardiothoracic surgery has been consulted #Hypertension Patient on 12.5 mg daily of Cozaar and 25 mg twice daily of Lopressor and 12.5 mg daily of Aldactone #Nephrolithiasis Abdominal and pelvic CT there were bilateral renal calculi noted with no hydronephrosis Cluster of left renal calcifications largest which is 12 mm There are multiple nonobstructing right renal calcifications largest of which is 5-6 mm Urology has been consulted #Hyperlipidemia Patient 40 mg daily of Lipitor #Anemia Hemoglobin today 8.3 as compared to yesterday (08/29) 9.7 Hematocrit 27.4 as compared to yesterday (08/29) 32.3 Continue to monitor CBC daily #Depression GI prophylaxis: 40 mg Protonix daily Dictation was produced using [employer] software. please excuse any grammatical, word or spelling errors. Dr. Heriberto MD I have performed a history and physical examination and medical decision making of this patient, discussed the same with the the resident, and agree with the assessment and plan as written. I performed brief physical exam. Objective - Vital Signs Vital signs: Vital Signs Temp 98.1 F 08/30/24 07:00 Pulse 67 08/30/24 07:00 Resp 16 08/30/24 07:00 BP 97/63 08/30/24 07:00 Pulse Ox 98 08/30/24 07:00 FiO2 Intake & Output 08/29/24 08/30/24 08/30/24 18:59 06:59 18:59 Output Total 700 Balance -700 Weight 102.058 kg 101.5 kg Output: Urine 700 Other: Voiding Method Toilet Toilet - Labs CBC & Chem 7: 08/31/24 04:46 08/31/24 04:46 Labs: Abnormal Lab Results - Last 24 Hours (Table) 08/29/24 Range/Units 14:37 Urine Appearance Cloudy H (Clear) Urine Ketones Trace H (Negative) Ur Leukocyte Esterase Trace H (Negative) Urine Bacteria Rare H (None) /hpf Urine Mucus Many H (None) /hpf
--- NOTE | 2024-08-30 13:14 | P.GSCN ---
History of Present Illness Consult date: 08/30/24 Reason for Consult: Bilateral renal stones History of present illness: This is a 49-year-old female admitted to the hospital with a pleural effusion, abdominal pain. Urology is consulted for incidental finding of bilateral renal stones that were seen on CAT scan. She does have history of recurrent kidney stones but never required any intervention for them. She indicated she is having intermittent flank pain with radiation to the lower quadrants. Denies any gross hematuria or dysuria. No previous renal surgeries. Review of Systems - Constitutional Denies fever, Denies weight loss - EENT Ears, nose, mouth and throat: Denies dysphagia - Cardiovascular Denies chest pain, Denies shortness of breath - Respiratory Denies cough, Denies 7 - Gastrointestinal Reports abdominal pain, Denies nausea, Denies vomiting - Genitourinary Genitourinary: Reports flank pain, Denies dysuria, Denies hematuria - Neurological Denies headaches, Denies syncope Past Medical History Past Medical History: Coronary Artery Disease (CAD), Diabetes Mellitus, Hypertension, Osteoarthritis (OA), Skin Disorder Additional Past Medical History / Comment(s): KIDNEY STONES, diet controlled diabetic-no longer needs med, no longer needs BP med, seasonal allergies, abscess right breast, left breast hx. of abscess, yeast in skin fold in abd. cabg aug 09 2024. History of Any Multi-Drug Resistant Organisms: None Reported Past Surgical History: Appendectomy, Breast Surgery, Cholecystectomy, Coronary Bypass/CABG, Heart Catheterization With Stent, Orthopedic Surgery, Tubal Ligation Additional Past Surgical History / Comment(s): carpal tunnel RIGHT WRIST, dental, abcess drainage left breast x2 (July 2016, March 2019, Aug 2019); RT breast I&D 05/22/21, 06/05/21; Left ankle surgery. Past Anesthesia/Blood Transfusion Reactions: No Reported Reaction, Family His tory of Problems w/ Anesthesia Additional Past Anesthesia/Blood Transfusion Reaction / Comm: No blood transfusion to date, mom stopped breathing during a surg. & had to be res uscitated Date of Last Stent Placement:: 07/30/24 Past Psychological History: Anxiety, Bipolar, Depression Additional Psychological History / Comment(s): Maintained with healthy coping mechanisms; diet and exericse (only suffers from depressive disorder, not the manic type) Smoking Status: Former smoker Past Alcohol Use History: None Reported Additional Past Alcohol Use History / Comment(s): STARTED SMOKING AT AGE 17 QUIT SMOKING March 16, 2021, SMOKED 1PPD Past Drug Use History: Marijuana Additional Drug Use History / Comment(s): COCAINE "YEARS AGO ", smokes maybe 1 joint daily for pain & bipolar - Past Family History Mother Family Medical History: Cancer Additional Family Medical History / Comment(s): CERVICAL CANCER Father Family Medical History: Unable to Obtain Additional Family Medical History / Comment(s): Patient did not know her father Medications and Allergies Home Medications Medication Instructions Recorded Confirmed Type Aspirin 81 mg PO DAILY tab 08/01/24 08/29/24 Rx Atorvastatin [Lipitor] 40 mg PO DAILY #30 tab 08/13/24 08/29/24 Rx Clopidogrel [Plavix] 75 mg PO DAILY #30 tab 08/13/24 08/29/24 Rx Metoprolol Tartrate [Lopressor] 25 mg PO BID #60 tab 08/13/24 08/29/24 Rx Bumetanide [BUMEX] 1 mg PO DAILY #7 tab 08/19/24 08/29/24 Rx Calcium Carbonate [Tums] 1,000 mg PO Q4HR PRN tab 08/19/24 08/29/24 Rx Losartan [Cozaar] 12.5 mg PO DAILY #30 tab 08/19/24 08/29/24 Rx Spironolactone [Aldactone] 12.5 mg PO DAILY #30 tab 08/19/24 08/29/24 Rx HYDROcodone/APAP 5-325MG [[place] 1 tab PO Q6HR 08/23/24 08/29/24 History 5-325] Omeprazole 20 mg PO DAILY 08/23/24 08/29/24 History methylPREDNISolone Dose Pack See Taper PO DIRECTED 08/27/24 08/29/24 History [Medrol Dose Pack] Ondansetron Odt [Zofran Odt] 4 mg PO Q8HR PRN #10 tab 08/28/24 08/29/24 Rx Allergies Allergy/AdvReac Type Severity Reaction Status Date / Time capsaicin Allergy Rash/Hives/ Verified 08/29/24 09:37 Swelling Surgical - Exam Vital Signs Temp Pulse Resp BP Pulse Ox 98.3 F 119 H 22 170/75 94 L 08/29/24 03:47 08/29/24 03:47 08/29/24 03:47 08/29/24 03:47 08/29/24 03:47 - General no distress, moderate pain - Eyes normal ocular movement, no pale - ENT normal nares, normal mucosa - Respiratory normal expansion, normal respiratory effort - Abdomen Abdomen: soft, non tender - Psychiatric oriented to time, oriented to person, oriented to place Results - Labs 08/30/24 05:11 08/30/24 05:11 Abnormal Lab Results - Last 24 Hours (Table) 08/29/24 08/30/24 08/30/24 Range/Units 14:37 05:11 05:11 RBC 2.98 L (4.10-5.20) X 10*6/uL Hgb 8.3 L (12.0-15.0) g/dL Hct 27.4 L (37.2-46.3) % MCHC 30.3 L (32.0-37.0) g/dL RDW 16.0 H (11.5-14.5) % Glucose 118 H (70-110) mg/dL Calcium 7.7 L (8.7-10.3) mg/dL AST 74 H (13-35) U/L ALT 54 H (8-44) U/L Total Protein 5.6 L (6.2-8.2) g/dL Albumin 2.9 L (3.8-4.9) g/dL Albumin/Globulin Ratio 1.07 L (1.60-3.17) Ratio Urine Appearance Cloudy H (Clear) Urine Ketones Trace H (Negative) Ur Leukocyte Esterase Trace H (Negative) Urine Bacteria Rare H (None) /hpf Urine Mucus Many H (None) /hpf Diabetes panel 08/30/24 Range/Units 05:11 Sodium 140 (135-145) mmol/L Potassium 3.7 (3.5-5.5) mmol/L Chloride 106 (96-109) mmol/L Carbon Dioxide 25.8 (21.6-31.8) mmol/L BUN 13.7 (9.0-27.0) mg/dL Creatinine 0.9 (0.6-1.5) mg/dL Glucose 118 H (70-110) mg/dL Calcium 7.7 L (8.7-10.3) mg/dL AST 74 H (13-35) U/L ALT 54 H (8-44) U/L Alkaline Phosphatase 119 (41-126) U/L Total Protein 5.6 L (6.2-8.2) g/dL Albumin 2.9 L (3.8-4.9) g/dL Calcium panel 08/30/24 Range/Units 05:11 Calcium 7.7 L (8.7-10.3) mg/dL Albumin 2.9 L (3.8-4.9) g/dL Pituitary panel 08/30/24 Range/Units 05:11 Sodium 140 (135-145) mmol/L Potassium 3.7 (3.5-5.5) mmol/L Chloride 106 (96-109) mmol/L Carbon Dioxide 25.8 (21.6-31.8) mmol/L BUN 13.7 (9.0-27.0) mg/dL Creatinine 0.9 (0.6-1.5) mg/dL Glucose 118 H (70-110) mg/dL Calcium 7.7 L (8.7-10.3) mg/dL Adrenal panel 08/30/24 Range/Units 05:11 Sodium 140 (135-145) mmol/L Potassium 3.7 (3.5-5.5) mmol/L Chloride 106 (96-109) mmol/L Carbon Dioxide 25.8 (21.6-31.8) mmol/L BUN 13.7 (9.0-27.0) mg/dL Creatinine 0.9 (0.6-1.5) mg/dL Glucose 118 H (70-110) mg/dL Calcium 7.7 L (8.7-10.3) mg/dL Total Bilirubin 1.2 (0.3-1.2) mg/dL AST 74 H (13-35) U/L ALT 54 H (8-44) U/L Alkaline Phosphatase 119 (41-126) U/L Total Protein 5.6 L (6.2-8.2) g/dL Albumin 2.9 L (3.8-4.9) g/dL Assessment and Plan Assessment: 49-year-old female with history of bilateral nonobstructing renal stones, no hydronephrosis or ureteral stones observed. Discussed with her given her symptomatic flank pain and the significant stone burden they could be contributing to her pain. Discussed with her given the ongoing pulmonary issues I don't recommend to undergo any surgical intervention at this time. Discussed she can follow-up with me as an outpatient at that point we will discuss performing bilateral ureteroscopy holmium laser once she is medically more stable -As an outpatient in 1 to 2 weeks
[2024-08-30] MEDS: LACTULOSE 20 GM/30 ML CUP PO SCH (13:37)
--- NOTE | 2024-08-30 15:22 | P.PN ---
Subjective Patient seen and evaluated at bedside. Patient improved epgastric abdominal pain, denies nausea or vomiting. Objective - Vital Signs Vital signs: Vital Signs Temp 98.3 F 08/30/24 14:24 Pulse 62 08/30/24 14:24 Resp 16 08/30/24 14:24 BP 93/62 08/30/24 14:24 Pulse Ox 94 L 08/30/24 14:24 FiO2 Intake & Output 08/29/24 08/30/24 08/30/24 18:59 06:59 18:59 Output Total 700 Balance -700 Weight 102.058 kg 101.5 kg Output: Urine 700 Other: Voiding Method Toilet Toilet - Exam gen: nad cv; rrr pul: non labored breathing abd: soft, tender to palpation in the epigastric region, no guarding or rebound tenderness - Labs CBC & Chem 7: 08/30/24 05:11 08/30/24 05:11 Labs: Abnormal Lab Results - Last 24 Hours (Table) 08/30/24 08/30/24 Range/Units 05:11 05:11 RBC 2.98 L (4.10-5.20) X 10*6/uL Hgb 8.3 L (12.0-15.0) g/dL Hct 27.4 L (37.2-46.3) % MCHC 30.3 L (32.0-37.0) g/dL RDW 16.0 H (11.5-14.5) % Glucose 118 H (70-110) mg/dL Calcium 7.7 L (8.7-10.3) mg/dL AST 74 H (13-35) U/L ALT 54 H (8-44) U/L Total Protein 5.6 L (6.2-8.2) g/dL Albumin 2.9 L (3.8-4.9) g/dL Albumin/Globulin Ratio 1.07 L (1.60-3.17) Ratio Assessment and Plan Assessment: 9 yo female w/ epigastric pain history of multiple surgeries rule out intermittent obstruction small bowell follow through is negative, egd tomorrow Time with Patient: Less than 30
--- NOTE | 2024-08-31 07:53 | US ---
EXAMINATION TYPE: US chest DATE OF EXAM: 08/31/2024 COMPARISON: NONE CLINICAL INDICATION: Female, 49 years old with history of Left pleural effusion; recent open heart, l eft sided effusion TECHNIQUE: Targeted ultrasound of the posterior lower Left EXAM MEASUREMENTS: Left Pleural Effusion pocket size: 11.8 cm Left skin surface to fluid distance: 5.2 cm Left side marked for possible thoracentesis outside the dept. Pulmonologists are able to review the images in the patient?s EMR. IMPRESSIONS: As above [facility], , 08/31/2024 7:50 AM
[2024-08-31 08:52] LABS: ALT 46 U/L (8-44); AST 50 U/L (13-35); Albumin/Globulin Ratio 1.15 Ratio (1.60-3.17); Alkaline Phosphatase 122 U/L (41-126); BUN/Creat Ratio 12.56 Ratio (12.00-20.00); Blood Urea Nitrogen 11.3 mg/dL (9.0-27.0); Calcium 7.7 mg/dL (8.7-10.3); Carbon Dioxide 25.5 mmol/L (21.6-31.8); Chloride 102 mmol/L (96-109); Globulin 2.6 g/dL (1.6-3.3); Glucose 119 mg/dL (70-110); Potassium 3.6 mmol/L (3.5-5.5); Sodium 135 mmol/L (135-145); Total Bilirubin 1.4 mg/dL (0.3-1.2); Total Protein 5.6 g/dL (6.2-8.2)
[2024-08-31 09:22] LABS: HCT 28.2 % (37.2-46.3); HGB 8.6 g/dL (12.0-15.0); MCH 27.6 pg (27.0-32.0); MCHC 30.5 g/dL (32.0-37.0); MCV 90.4 FL (80.0-97.0); Mean Platelet Volume 11.5 FL (9.5-12.2); NRBC Per 100 WBC 0 X 10*3/uL (0.00-0.01); Platelet Count 184 X 10*3/uL (140-440); RBC 3.12 X 10*6/uL (4.10-5.20); WBC 5.15 X 10*3/uL (4.50-10.00)
[2024-08-31 09:23] LABS: Basophils # (A) 0.04 X 10*3/uL (0.00-0.10); Basophils % (A) 0.8 %; Eosinophils # (A) 0.53 X 10*3/uL (0.04-0.35); Eosinophils % (A) 10.3 %; Lymphocytes # (A) 1.31 X 10*3/uL (0.90-5.00); Lymphocytes % (A) 25.4 %; Monocytes # (A) 0.56 X 10*3/uL (0.20-1.00); Monocytes % (A) 10.9 %; Neutrophils % (A) 52.4 %
[2024-08-31] MEDS: DEXAMETHASONE SOD PHOSPHATE 10 MG/ML 1 ML VIAL IVP STA (09:36)
--- NOTE | 2024-08-31 09:49 | XR ---
EXAMINATION TYPE: XR chest 1V portable DATE OF EXAM: 08/31/2024 9:15 AM COMPARISON: Chest radiographs from 08/30/2024, ultrasound chest 08/31/2024 TECHNIQUE: XR chest 1V portable Portable AP radiograph of the chest. CLINICAL INDICATION:Female, 49 years old with history of Post left thoracentesis; FINDINGS: Lungs/Pleura: Right lung is clear. Moderate left pleural effusion redemonstrated. No pneumothorax. Pulmonary vascularity: Unremarkable. Heart/mediastinum: Cardiomediastinal silhouette is enlarged and stable. Post-CABG changes. Left atri al appendage occlusion devices present. Musculoskeletal: No acute osseous pathology. Midline sternotomy wires are noted and stable. IMPRESSION: 1. Similar appearing moderate size left pleural effusion status post thoracentesis. No sizable pneum othorax identified. 2. Post-CABG changes. [facility], , 08/31/2024 9:46 AM
--- NOTE | 2024-08-31 09:49 | P.GSCN ---
History of Present Illness Consult date: 08/31/24 Reason for Consult: Known to the cardiothoracic surgery service, history of coronary artery bypass grafting surgery on August 09, 2024. Requesting physician: Anish Sosa History of present illness: This is a 49-year-old female patient who does not follow with a primary care physician on a regular basis, although she did establish with a new primary care physician since her open heart surgery. She was hospitalized 07/29/24 with unstable angina. She underwent heart catheterization 07/30/24 with drug-eluting stent placed to the ramus intermedius, there was notation that Dr. Ogden was unable to get a stent past the ostium of the circumflex which did have a 99% blockage. At that time she also had a transthoracic echocardiogram demonstrating normal left ventricular systolic function with EF 55 to 60%, mild mitral and tricuspid regurgitation. She was discharged to home on August 01, 2024 and was feeling good for about 24 hours when she developed pain under her left axilla which spread medially. This time she also endorsed shortness of breath, nausea, cold sweats, and significant anxiety. She presented back to the emergency room at [facility] 08/02/24. Lab work revealed mildly elevated troponins, she was kept inpatient and taken back to the [facility] which revealed complex anatomy including trifurcation and severe angulation of takeoff of the circumflex with 120 degree takeoff, severe calcification at the level of the distal main into the circumflex coronary artery. IVUS demonstrated significant left main disease as well as calcified plaque. There was concern for high risk of shifting plaque into the LAD or circumflex or dissection with intervention of the circumflex, therefore consultation was placed to cardiothoracic surgery for revascularization recommendations. She was seen by Dr. Lan and scheduled for urgent off-pump CABG on August 09, 2024. Her postoperative recovery was uneventful and she was discharged to home with home health care on postoperative day #4. On August 23, 2024 the patient was experiencing some shortness of breath and was found to have a right-sided pleural effusion and subsequently underwent a right thoracentesis. Recently, the patient has had complaints of nausea with episodes of emesis since 27 August. Due to her persistent nausea and episodes of vomiting with abdominal pain she underwent a CT scan of her abdomen which showed multiple bilateral kidney stones without any hydronephrosis. She also states that she was constipated over the past 2 to 3 days and has not been eating. She denies any recent fever, chills, shortness of breath, headache, hemoptysis, hematemesis, chest pain, chest pressure, presyncope or syncope. Due to the patient's persistent nausea and vomiting she was subsequently admitted to the hospital for further evaluation and workup. A chest x-ray was completed on August 30, 2024 which revealed a moderate-sized left pleural effusion. The patient was seen and examined at her bedside today on the 6 floor cardiac observation unit, she states she feels much improved, and denies any further complaints of nausea or vomiting. She states her bowels have moved since her admission, she has been tolerating a clear liquid diet and she is scheduled for an esophagogastroduodenoscopy today at noon. Due to the patient being known to the cardiothoracic surgery and her undergoing a coronary artery bypass grafting surgery on August 09, 2024 a consult was placed to Dr. Phong Ortiz from cardiothoracic surgery for further evaluation and treatment recommendations. Review of Systems A review of systems was completed and was negative except as mentioned in the HPI. Past Medical History Past Medical History: Coronary Artery Disease (CAD), Diabetes Mellitus, Hypertension, Osteoarthritis (OA), Skin Disorder Additional Past Medical History / Comment(s): KIDNEY STONES, diet controlled diabetic-no longer needs med, no longer needs BP med, seasonal allergies, abscess right breast, left breast hx. of abscess, yeast in skin fold in abd. cabg aug 09 2024. Left internal carotid artery stenosis per duplex study, chronically elevated transaminase enzymes History of Any Multi-Drug Resistant Organisms: None Reported Past Surgical History: Appendectomy, Breast Surgery, Cholecystectomy, Coronary Bypass/CABG, Heart Catheterization With Stent, Orthopedic Surgery, Tubal Ligation Additional Past Surgical History / Comment(s): carpal tunnel RIGHT WRIST, dental, abcess drainage left breast x2 (July 2016, March 2019, Aug 2019); RT b reast I&D 05/22/21, 06/05/21; Left ankle surgery. Past Anesthesia/Blood Transfusion Reactions: No Reported Reaction, Family History of Problems w/ Anesthesia Additional Past Anesthesia/Blood Transfusion Reaction / Comm: No blood transfusion to date, mom stopped breathing during a surg. & had to be resuscitated Date of Last Stent Placement:: 07/30/24 Past Psychological History: Anxiety, Bipolar, Depression Additional Psychological History / Comment(s): Maintained with healthy coping mechanisms; diet and exericse (only suffers from depressive disorder, not the manic type) Smoking Status: Former smoker Past Alcohol Use History: None Reported Additional Past Alcohol Use History / Comment(s): STARTED SMOKING AT AGE 17 QUIT SMOKING March 16, 2021, SMOKED 1PPD Past Drug Use History: Marijuana Additional Drug Use History / Comment(s): COCAINE "YEARS AGO ", smokes maybe 1 joint daily for pain & bipolar - Past Family History Mother Family Medical History: Cancer Additional Family Medical History / Comment(s): CERVICAL CANCER Father Family Medical History: Unable to Obtain Additional Family Medical History / Comment(s): Patient did not know her father Medications and Allergies Home Medications Medication Instructions Recorded Confirmed Type Aspirin 81 mg PO DAILY tab 08/01/24 08/29/24 Rx Atorvastatin [Lipitor] 40 mg PO DAILY #30 tab 08/13/24 08/29/24 Rx Clopidogrel [Plavix] 75 mg PO DAILY #30 tab 08/13/24 08/29/24 Rx Metoprolol Tartrate [Lopressor] 25 mg PO BID #60 tab 08/13/24 08/29/24 Rx Bumetanide [BUMEX] 1 mg PO DAILY #7 tab 08/19/24 08/29/24 Rx Calcium Carbonate [Tums] 1,000 mg PO Q4HR PRN tab 08/19/24 08/29/24 Rx Losartan [Cozaar] 12.5 mg PO DAILY #30 tab 08/19/24 08/29/24 Rx Spironolactone [Aldactone] 12.5 mg PO DAILY #30 tab 08/19/24 08/29/24 Rx HYDROcodone/APAP 5-325MG [[place] 1 tab PO Q6HR 08/23/24 08/29/24 History 5-325] Omeprazole 20 mg PO DAILY 08/23/24 08/29/24 History methylPREDNISolone Dose Pack See Taper PO DIRECTED 08/27/24 08/29/24 History [Medrol Dose Pack] Ondansetron Odt [Zofran Odt] 4 mg PO Q8HR PRN #10 tab 08/28/24 08/29/24 Rx Allergies Allergy/AdvReac Type Severity Reaction Status Date / Time capsaicin Allergy Rash/Hives/ Verified 08/29/24 09:37 Swelling Surgical - Exam Vital Signs Temp Pulse Resp BP Pulse Ox 98.3 F 119 H 22 170/75 94 L 08/29/24 03:47 08/29/24 03:47 08/29/24 03:47 08/29/24 03:47 08/29/24 03:47 - General well developed, well nourished, no distress, no pain, chronically ill, obese - Eyes PERRL, normal ocular movement, no pale, no icteric - ENT Edentulous normal pinna, normal nares, normal mucosa, no hearing loss, no congestion - Neck no masses, no bruits, trachea midline, no venous distension - Respiratory Lungs essentially clear throughout, diminished to her left lower lobe. Respirations are symmetrical and nonlabored. No wheezes, rhonchi or crackles. - Cardiovascular Regular rhythm and rate. S1 and S2 present, negative for S3, gallop or murmur. - Abdomen Abdomen is soft, nontender and nondistended. Active bowel sounds present all 4 abdominal quadrants. No guarding or rigidity. No organomegaly appreciated. - Genitourinary Deferred - Rectum Deferred - Integumentary Skin is warm and dry. No clubbing or cyanosis is present. Midline sternal incision is clean, dry and approximated. no rash, no growths, no abnormal pigmentation - Neurologic No focal deficits. normal coordination, normal sensation - Musculoskeletal Moves all 4 extremities with equal strength bilateral. normal gait, normal posture - Psychiatric oriented to time, oriented to person, oriented to place, speech is normal, memory intact Results - Labs 08/31/24 04:46 08/31/24 04:46 Abnormal Lab Results - Last 24 Hours (Table) 08/30/24 08/30/24 Range/Units 05:11 05:11 RBC 2.98 L (4.10-5.20) X 10*6/uL Hgb 8.3 L (12.0-15.0) g/dL Hct 27.4 L (37.2-46.3) % MCHC 30.3 L (32.0-37.0) g/dL RDW 16.0 H (11.5-14.5) % Glucose 118 H (70-110) mg/dL Calcium 7.7 L (8.7-10.3) mg/dL AST 74 H (13-35) U/L ALT 54 H (8-44) U/L Total Protein 5.6 L (6.2-8.2) g/dL Albumin 2.9 L (3.8-4.9) g/dL Albumin/Globulin Ratio 1.07 L (1.60-3.17) Ratio Diabetes panel 08/30/24 Range/Units 05:11 Sodium 140 (135-145) mmol/L Potassium 3.7 (3.5-5.5) mmol/L Chloride 106 (96-109) mmol/L Carbon Dioxide 25.8 (21.6-31.8) mmol/L BUN 13.7 (9.0-27.0) mg/dL Creatinine 0.9 (0.6-1.5) mg/dL Glucose 118 H (70-110) mg/dL Calcium 7.7 L (8.7-10.3) mg/dL AST 74 H (13-35) U/L ALT 54 H (8-44) U/L Alkaline Phosphatase 119 (41-126) U/L Total Protein 5.6 L (6.2-8.2) g/dL Albumin 2.9 L (3.8-4.9) g/dL Calcium panel 08/30/24 Range/Units 05:11 Calcium 7.7 L (8.7-10.3) mg/dL Albumin 2.9 L (3.8-4.9) g/dL Pituitary panel 08/30/24 Range/Units 05:11 Sodium 140 (135-145) mmol/L Potassium 3.7 (3.5-5.5) mmol/L Chloride 106 (96-109) mmol/L Carbon Dioxide 25.8 (21.6-31.8) mmol/L BUN 13.7 (9.0-27.0) mg/dL Creatinine 0.9 (0.6-1.5) mg/dL Glucose 118 H (70-110) mg/dL Calcium 7.7 L (8.7-10.3) mg/dL Adrenal panel 08/30/24 Range/Units 05:11 Sodium 140 (135-145) mmol/L Potassium 3.7 (3.5-5.5) mmol/L Chloride 106 (96-109) mmol/L Carbon Dioxide 25.8 (21.6-31.8) mmol/L BUN 13.7 (9.0-27.0) mg/dL Creatinine 0.9 (0.6-1.5) mg/dL Glucose 118 H (70-110) mg/dL Calcium 7.7 L (8.7-10.3) mg/dL Total Bilirubin 1.2 (0.3-1.2) mg/dL AST 74 H (13-35) U/L ALT 54 H (8-44) U/L Alkaline Phosphatase 119 (41-126) U/L Total Protein 5.6 L (6.2-8.2) g/dL Albumin 2.9 L (3.8-4.9) g/dL - Imaging Chest x-ray: report reviewed, image reviewed Assessment and Plan Assessment: Abdominal pain, nausea and vomiting unknown etiology History of bilateral pleural effusions, shortness of breath, status post left- sided thoracentesis with removal of 1 L of fluid on August 22, 2024, status post right sided thoracentesis with removal of 900 mL of fluid today, moderate left pleural effusion on chest x-ray from August 30, 2024 History of coronary artery disease status post recent stent followed by three- vessel off-pump CABG on August 09, 2024 Preserved left ventricular systolic function, EF 55 to 60%, mild MR, TR Hypertension Diet-controlled diabetes Bipolar disorder Chronic thrombocytopenia and anemia Left internal carotid artery stenosis Chronic transaminitis with history of EtOH abuse Previous tobacco cessation with recent cessation from vaping Marijuana use Plan: The patient was seen and examined at her bedside on the 6 floor medical surgical unit. Her chart and diagnostics were reviewed. Her case was discussed in detail with Dr. Phong Ortiz from cardiothoracic surgery. We will obtain an ultrasound of her left chest due to the findings of moderate size left pleural effusion on her chest x-ray. Dr. Julio from pulmonary medicine has been consulted for possible left thoracentesis. Medical management other comorbidities per primary care service and other consultants. Continue to maximize medical management with aspirin, statin, losartan and beta-lopez. More recommendations to follow based on patient's clinical course. Thank you for this consult and we look forward to working with you in the care of this patient. I have personally seen and examined the patient, performed the documentation and the assessment and plan as written. Number of minutes spent on the visit: 30. MONA Lyon
[2024-08-31] MEDS: ONDANSETRON 4 MG/2 ML VIAL IVP PRN (11:02)
--- NOTE | 2024-08-31 12:00 | XR ---
EXAMINATION TYPE: XR abdomen 2V DATE OF EXAM: 08/31/2024 COMPARISON: CT abdomen and pelvis 08/29/2024, small bowel follow-through 08/30/2024 HISTORY: Abdominal pain TECHNIQUE: Single upright KUB image of the abdomen is obtained. Limited examination due to underpenet ration. FINDINGS: Small bowel demonstrates no evidence for dilatation or air fluid levels. Gas and fecal material is seen in non-distended colon. No convincing evidence for pneumoperitoneum. Cholecystectomy clips right upper quadrant. Pelvic phleboliths redemonstrated. Residual enteric contrast is demonstrated within the colon and rec aditya. Right renal 3 mm calculus. Additional left renal calculi measuring up to 5 mm. The osseous structures are intact. Degenerative changes of the lumbar spine. Opacification of the vis ualized left lower lung. IMPRESSION: 1. Overall nonobstructive bowel gas pattern. Residual enteric contrast identified throughout the col on and rectum. 2. Bilateral renal calculi. 3. Redemonstration opacification of the visualized left lung related to known effusion. [facility], , 08/31/2024 11:58 AM
--- NOTE | 2024-08-31 12:03 | P.PN ---
Subjective Progress Note Date: 08/31/24 Patient is a 49-year-old female came in with complaints of nausea vomiting and mid abdominal pain crampy in nature severe, nonradiating. Patient CT of the abdomen is significant for multiple bilateral renal stones without any hydronephrosis the larger 1 being 12 mm. Patient last bowel movement was about 2 to 3 days ago patient does not have any significant tenderness on exam. Patient also found to have significant pleural effusion bilaterally left more than right. Patient had a recent coronary bypass grafting on August 09. Patient had a normal ejection fraction in the past he did not have any BNP available at this time already BNP patient does take Bumex 1 mg daily at home along with Aldactone. Patient has mildly elevated nonspecific elevation of lipase, not consistent with pancreatitis. 08/30/24 - Patient seen at bedside today. Stating that she feels better and does not have any pain currently. Urology, surgery, and cardiothoracic surgery all consulted. Urology stated the patient is to follow-up outpatient a few weeks following discharge follow-up on her renal calculi. Per surgery's recommendations small bowel follow-through was completed, suggesting possible EGD if the small bowel follow-through was negative. They will continue to monitor and follow. Patient's vital signs as of this morning showed blood pressure 97/63, heart rate of 67, respiratory rate of 16, saturating 98% on room air. Small bowel follow-through x-ray ordered by surgery done today showing normal detailed small bowel examination. Patient has complained of continued constipation, lactulose 10 mg daily has been added in the hopes of producing a bowel movement. New labs -WBCs 6.73, Hgb 8.3, Hct 27.4, PLT 214; sodium 140, potassium 3.7, BUN 13.7, creatinine 0.9, AST 74, ALT 54 New imaging - small bowel follow-through x-ray showed normal detailed small bowel examination. 08/31/24 - Patient seen at bedside today. Per case management the patient is open to [facility] care. Patient ultrasound of the chest done on 08/31 which showed left pleural effusion pocket size of 11.8 cm, and skin surface to fluid distance 5.2 cm. Per urology's recommendation patient to follow-up in 1 to 2 weeks as an outpatient. Patient scheduled to go for an EGD today per surgery's request. Additionally pulmonology has been consulted as a result of the patient's left pleural effusion. Patient's vital signs as of this morning showed blood pressure 117/77, heart rate of 82, respiratory rate of 16, saturating 92% on room air. Patient was seen by cardiothoracic surgery this morning, status post CABG on August 09, 2024, and at that time she had stated to them that she was feeling much better and had no current complaints. At bedside today patient noted to be having increasing abdominal pain, generalized throughout the entire abdomen with what she describes as a gaseous, pressure-lik e pain. Additionally patient had a thoracentesis completed this morning, with removal of fluid from the patient pleural effusion on the left side. Following this procedure the patient began endorsing severe generalized abdominal pain for which she was given Dilaudid and morphine. Patient is scheduled to go for an EGD later today, in the early afternoon. Patient also endorsed vomiting, a bilious vomit. Additionally, at that time patient presented with minimal bowel sounds presenting some possibility that the patient may have an ileus. At that time abdominal x-ray was ordered which is currently pending. New labs -WBCs 5.15, Hgb 8.6, Hct 28.2, PLT 184; BUN 11.3, creatinine 0.9, AST 50, ALT 46 REVIEW OF SYSTEMS: CONSTITUTIONAL: No fever, no malaise. CARDIOVA.SCULAR: No chest pain, no palpitations, no syncope. PULMONARY: No shortness of breath, no cough. GASTROINTESTINAL: No diarrhea, no nausea, no vomiting, no abdominal pain. NEUROLOGICAL: No headaches, no weakness. PHYSICAL EXAMINATION: GENERAL: The patient is alert and oriented x3, in some distress. Well developed, well nourished. HEENT: Pupils are round and equally reacting to light. EOMI. No scleral icterus. No conjunctival pallor. Normocephalic, atraumatic. No pharyngeal erythema. No thyromegaly. CARDIOVASCULAR: S1 and S2 present. No murmurs, rubs, or gallops. PULMONARY: Chest is clear to auscultation, no wheezing or crackles. ABDOMEN: Soft, nontender, nondistended.. No palpable organomegaly. Minimal bowel sounds. MUSCULOSKELETAL: No joint swelling or deformity. EXTREMITIES: No cyanosis, clubbing, or pedal edema. NEUROLOGICAL: Gross neurological examination did not reveal any focal deficits. SKIN: No rashes. Assessment and plan #Abdominal pain of unclear etiology, possibly secondary to constipation Pain is atypical for renal calculi even though the patient has multiple of them 1 being 12 mm Patient send Protonix which we continued Constipation may be contributing to her pain Patient has not a bowel movement in 3-4 days Small bowel follow-through noted to be unremarkable Added lactulose 10 mg daily #Bilateral pleural effusions possibly secondary to recent cardiothoracic surgery Cardiothoracic surgery was consulted as a result of the patient undergoing recent CABG and now presenting with bilateral pleural effusions Patient may have chronic diastolic dysfunction will be started on IV Bumex BNP was 772 #CAD with recent CABG Patient to CABG on August 09, 2024 Patient 75 mg daily of Plavix and 81 mg daily aspirin Cardiothoracic surgery has been consulted #Hypertension Patient on 12.5 mg daily of Cozaar and 25 mg twice daily of Lopressor and 12.5 mg daily of Aldactone #Nephrolithiasis Abdominal and pelvic CT there were bilateral renal calculi noted with no hydronephrosis Cluster of left renal calcifications largest which is 12 mm There are multiple nonobstructing right renal calcifications largest of which is 5-6 mm Urology has been consulted #Hyperlipidemia Patient 40 mg daily of Lipitor #Anemia Hemoglobin today 8.3 as compared to yesterday (08/29) 9.7 Hematocrit 27.4 as compared to yesterday (08/29) 32.3 Continue to monitor CBC daily #Possible ileus On 08/31, following thoracentesis, patient began endorsing severe abdominal pain Minimal bowel sounds noted on abdominal exam however no tenderness to palpation Abdominal x-ray ordered currently pending #Depression GI prophylaxis: 40 mg Protonix daily Dictation was produced using [employer] dictation software. please excuse any grammatical, word or spelling errors. Dr. Heriberto MD I have performed a history and physical examination and medical decision making of this patient, discussed the same with the the resident, and agree with the assessment and plan as written. I performed brief physical exam. Objective - Vital Signs Vital signs: Vital Signs Temp 98.2 F 08/31/24 07:00 Pulse 82 08/31/24 07:00 Resp 16 08/31/24 07:00 BP 117/77 08/31/24 07:00 Pulse Ox 92 L 08/31/24 07:00 FiO2 Intake & Output 08/30/24 08/31/24 08/31/24 18:59 06:59 18:59 Weight 102.6 kg Other: Voiding Method Toilet # Voids 4 2 - Labs CBC & Chem 7: 09/01/24 09:28 09/01/24 09:28 Labs: Abnormal Lab Results - Last 24 Hours (Table) 08/30/24 08/30/24 Range/Units 05:11 05:11 RBC 2.98 L (4.10-5.20) X 10*6/uL Hgb 8.3 L (12.0-15.0) g/dL Hct 27.4 L (37.2-46.3) % MCHC 30.3 L (32.0-37.0) g/dL RDW 16.0 H (11.5-14.5) % Glucose 118 H (70-110) mg/dL Calcium 7.7 L (8.7-10.3) mg/dL AST 74 H (13-35) U/L ALT 54 H (8-44) U/L Total Protein 5.6 L (6.2-8.2) g/dL Albumin 2.9 L (3.8-4.9) g/dL Albumin/Globulin Ratio 1.07 L (1.60-3.17) Ratio
[2024-08-31] MEDS: ACETAMINOPHEN IV (For NPO) 1,000 MG in EMPTY BAG 1 BAG IVPB PRN (12:25)
[2024-08-31] MEDS: PROCHLORPERAZINE INJ 10 MG/2 ML VIAL IVP STA (12:50)
[2024-08-31] MEDS ORDERED: LIDOCAINE 1% INJ 10MG/ML (20 ML MDV) ONE (13:50)
[2024-08-31] MEDS ORDERED: PROPOFOL 10 MG/ML 20 ML VIAL IV ONE (13:50)
[2024-08-31] MEDS: IV FLUID CONTINUATION 400 ML IV ONE (13:53)
--- NOTE | 2024-08-31 14:07 | P.CNPUL ---
History of Present Illness Consult date: 08/31/24 Requesting physician: Phong Ortiz Reason for consult: pleural effusion, abnormal CXR/CT Chief complaint: Constipation, abdominal pain History of present illness: This is a pleasant 49-year-old female patient who had recently undergone coronary artery bypass grafting on August 09, 2024. She did have complications of pleural effusions and had undergone a left-sided thoracentesis with 1050 mL of bloody fluid removed on 08/22/2024 and again right sided thoracentesis on 08/24/2024 with 900 mL of bloody fluid return. She had been recovering well. She presented back to the emergency room on 08/29/2024 with complaints of epigastric and abdominal pain and constipation. During her stay here she did have a chest x-ray that revealed a significant left-sided pleural effusion. Ultrasound was performed and there was an 11.8 cm pocket. We are consulted today for the same. She is seen on the regular medical floor. She is sitting up in bed. Awake and alert in no acute distress. Maintaining O2 saturations in the 90s on room air. White count 5.1. Hemoglobin 8.6. Platelets 184. Sodium 135. Potassium 3.6. Bicarb 26. BUN 11. Creatinine 0.9. Glucose 119. She has been initiated on IV Bumex. Lovenox for DVT prophylaxis. Review of Systems REVIEW OF SYSTEMS: CONSTITUTIONAL: Denies any recent significant weight loss or weight gain. EYES: Denies change in vision. EARS, NOSE, MOUTH, THROAT: Denies headaches, denies sore throat. CARDIOVASCULAR: Denies chest pain, palpitations or syncopal episodes. RESPIRATORY: Denies shortness of breath, cough, congestion or hemoptysis. GASTROINTESTINAL: Positive for constipation and abdominal pain GENITOURINARY: Denies hematuria, denies infections. MUSKULOSKELETAL: Denies pain, denies swelling. INTEGUMENTARY: Denies rash, denies eczema. NEUROLOGICAL: Denies recent memory loss, no recent seizure activity. PSYCHIATRIC: Denies anxiety, denies depression. HEMATOLOGIC/LYMPHATIC: Denies anemia, denies enlarged lymph nodes. Past Medical History Past Medical History: Coronary Artery Disease (CAD), Diabetes Mellitus, Hypertension, Osteoarthritis (OA), Skin Disorder Additional Past Medical History / Comment(s): KIDNEY STONES, diet controlled diabetic-no longer needs med, no longer needs BP med, seasonal allergies, abscess right breast, left breast hx. of abscess, yeast in skin fold in abd. cabg aug 09 2024. Left internal carotid artery stenosis per duplex study, chronically elevated transaminase enzymes History of Any Multi-Drug Resistant Organisms: None Reported Past Surgical History: Appendectomy, Breast Surgery, Cholecystectomy, Coronary Bypass/CABG, Heart Catheterization With Stent, Orthopedic Surgery, Tubal Ligation Additional Past Surgical History / Comment(s): carpal tunnel RIGHT WRIST, dental, abcess drainage left breast x2 (July 2016, March 2019, Aug 2019); RT breast I&D 05/22/21, 06/05/21; Left ankle surgery. Past Anesthesia/Blood Transfusion Reactions: No Reported Reaction, Family History of Problems w/ Anesthesia Additional Past Anesthesia/Blood Transfusion Reaction / Comment(s): No blood transfusion to date, mom stopped breathing during a surg. & had to be resuscitated Date of Last Stent Placement:: 07/30/24 Past Psychological History: Anxiety, Bipolar, Depression Additional Psychological History / Comment(s): Maintained with healthy coping mechanisms; diet and exericse (only suffers from depressive disorder, not the manic type) Smoking Status: Former smoker Past Alcohol Use History: None Reported Additional Past Alcohol Use History / Comment(s): STARTED SMOKING AT AGE 17 QUIT SMOKING March 16, 2021, SMOKED 1PPD Past Drug Use History: Marijuana Additional Drug Use History / Comment(s): COCAINE "YEARS AGO ", smokes maybe 1 joint daily for pain & bipolar - Past Family History Mother Family Medical History: Cancer Additional Family Medical History / Comment(s): CERVICAL CANCER Father Family Medical History: Unable to Obtain Additional Family Medical History / Comment(s): Patient did not know her father Medications and Allergies Home Medications Medication Instructions Recorded Confirmed Type Aspirin 81 mg PO DAILY tab 08/01/24 08/29/24 Rx Atorvastatin [Lipitor] 40 mg PO DAILY #30 tab 08/13/24 08/29/24 Rx Clopidogrel [Plavix] 75 mg PO DAILY #30 tab 08/13/24 08/29/24 Rx Metoprolol Tartrate [Lopressor] 25 mg PO BID #60 tab 08/13/24 08/29/24 Rx Bumetanide [BUMEX] 1 mg PO DAILY #7 tab 08/19/24 08/29/24 Rx Calcium Carbonate [Tums] 1,000 mg PO Q4HR PRN tab 08/19/24 08/29/24 Rx Losartan [Cozaar] 12.5 mg PO DAILY #30 tab 08/19/24 08/29/24 Rx Spironolactone [Aldactone] 12.5 mg PO DAILY #30 tab 08/19/24 08/29/24 Rx HYDROcodone/APAP 5-325MG [[place] 1 tab PO Q6HR 08/23/24 08/29/24 History 5-325] Omeprazole 20 mg PO DAILY 08/23/24 08/29/24 History methylPREDNISolone Dose Pack See Taper PO DIRECTED 08/27/24 08/29/24 History [Medrol Dose Pack] Ondansetron Odt [Zofran Odt] 4 mg PO Q8HR PRN #10 tab 08/28/24 08/29/24 Rx Allergies Allergy/AdvReac Type Severity Reaction Status Date / Time capsaicin Allergy Rash/Hives/ Verified 08/29/24 09:37 Swelling Physical Exam Vitals: Vital Signs Temp Pulse Resp BP Pulse Ox 08/31/24 13:18 154/82 08/31/24 12:54 98.0 F 68 16 179/97 96 08/31/24 08:00 16 08/31/24 07:00 98.2 F 82 16 117/77 92 L 08/31/24 01:44 98.4 F 89 18 120/69 92 L 08/30/24 20:58 130/69 08/30/24 18:56 98.4 F 74 16 92/58 96 08/30/24 14:24 98.3 F 62 16 93/62 94 L Intake and Output 08/30/24 08/31/24 08/31/24 22:59 06:59 14:59 Output Total 200 Balance -200 Output: Emesis 200 Other: Voiding Method Toilet Toilet Toilet # Voids 1 2 Weight 102.6 kg GENERAL EXAM: Alert, active, 49-year-old female, on room air, fairly comfortable in no apparent distress. HEAD: Normocephalic. EYES: Normal reaction of pupils, equal size. NOSE: Clear with pink turbinates. THROAT: Edentulous. No erythema or exudates. NECK: No masses, no JVD. CHEST: Sternum stable. Heart hugger in place. LUNGS: Equal air entry with diminished breath sounds of the left lung base. CVS: S1 and S2 normal with no audible murmur, regular rhythm. ABDOMEN: No hepatosplenomegaly, normal bowel sounds, no guarding or rigidity. SPINE: No scoliosis or deformity SKIN: No rashes CENTRAL NERVOUS SYSTEM: No focal deficits, tone is normal in all 4 extremities. EXTREMITIES: There is no peripheral edema. No clubbing, no cyanosis. Peripheral pulses are intact. Results - Laboratory Findings CBC and BMP: 08/31/24 04:46 08/31/24 04:46 Abnormal lab findings: Abnormal Labs 08/29/24 08/29/24 08/29/24 04:10 04:10 14:37 RBC 3.53 L Hgb 9.7 L Hct 32.3 L MCHC 30.0 L RDW 16.1 H Eosinophils # Potassium 3.3 L Carbon Dioxide 21 L Glucose 173 H Calcium Total Bilirubin 2.0 H AST 92 H ALT 50 H Alkaline Phosphatase 141 H Total Protein Albumin 3.3 L Albumin/Globulin Ratio Lipase 301 H Urine Appearance Cloudy H Urine Ketones Trace H Ur Leukocyte Esterase Trace H Urine Bacteria Rare H Urine Mucus Many H 08/30/24 08/30/24 08/31/24 05:11 05:11 04:46 RBC 2.98 L 3.12 L Hgb 8.3 L 8.6 L Hct 27.4 L 28.2 L MCHC 30.3 L 30.5 L RDW 16.0 H 16.0 H Eosinophils # 0.53 H Potassium Carbon Dioxide Glucose 118 H Calcium 7.7 L Total Bilirubin AST 74 H ALT 54 H Alkaline Phosphatase Total Protein 5.6 L Albumin 2.9 L Albumin/Globulin Ratio 1.07 L Lipase Urine Appearance Urine Ketones Ur Leukocyte Esterase Urine Bacteria Urine Mucus 08/31/24 04:46 RBC Hgb Hct MCHC RDW Eosinophils # Potassium Carbon Dioxide Glucose 119 H Calcium 7.7 L Total Bilirubin 1.4 H AST 50 H ALT 46 H Alkaline Phosphatase Total Protein 5.6 L Albumin 3.0 L Albumin/Globulin Ratio 1.15 L Lipase Urine Appearance Urine Ketones Ur Leukocyte Esterase Urine Bacteria Urine Mucus - Diagnostic Findings Chest x-ray: image reviewed Assessment and Plan Assessment: Abdominal pain and constipation. 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 daily Continue IV Bumex We will continue to follow and make further recommendations based on her clinical status I have personally seen and examined the patient, performed the documentation and the assessment and plan as written. Number of minutes spent on the visit: 20.
--- NOTE | 2024-08-31 14:34 | P.OP ---
Date of Procedure: 08/31/24 Preoperative Diagnosis: Epigastric Pain Postoperative Diagnosis: Epigastric Pain Procedure(s) Performed: EGD with Biopsy Anesthesia: SAWYER Surgeon: Mateo Sommers Pathology: other (Antral Biopsy) Condition: stable Disposition: PACU Description of Procedure: Informed consent was obtained. The procedure, its risks, benefits, and alternatives were discussed. The patient was placed in the left lateral decubitus position and given local anesthetic to the oropharynx. The patient was sedated The endoscope was inserted into the oropharynx and guided under direct vision into the esophagus, stomach, and duodenum. The duodenal bulb and second portion were unremarkable. The scope was withdrawn to the stomach and retroflexed. There was no increased fluid, food or secretions in the upper gastrointestinal tract. There was very minimal, nonspecific, patchy antral erythema and gastritis noted. Biopsies were obtained for Helicobacter pylori. No erosions or ulcers. The scope was withdrawn to the esophagus. The Z-line and gastroesophageal junction were located at about 40 cm. No Barretts or esophagitis. The patient tolerated the procedure very well. The patient was then transferred to the recovery area in good condition. There were no apparent complications.
[2024-08-31] MEDS: hydrALAZINE HCL 20 MG/ML 1 ML VIAL IVP STA ×2 (16:21→16:41)
[2024-08-31] MEDS: SODIUM CHLORIDE 0.9% 1,000 ML IV ONE (16:46)
--- NOTE | 2024-08-31 22:38 | OP ---
OPERATIVE REPORT DATE OF SERVICE : PROCEDURE: Left-sided thoracentesis. PREOPERATIVE DIAGNOSIS: Left pleural effusion. POSTOPERATIVE DIAGNOSIS: Left pleural effusion. ANESTHESIA USED: 4 mL of 1% lidocaine. DESCRIPTION OF PROCEDURE: The patient was placed in the sitting upright position, the ultrasound prior to procedure was reviewed and showed a large pocket of fluid at the level of the 8th intercostal space and tip of the scapula. The area was locally anesthetized, and it was prepared in a sterile fashion. Drapes were applied. Then, multiple attempts were made to enter the pleural space with the needle, could not reach the pleural space because of the fat tissue. Finally, a small incision was made above the site of the marking of the pleural effusion, and a small incision was made, a standard thoracentesis catheter and needle was used, inserted at the same site, advanced into the pleural space until the fluid was localized and it was noted to be bloody. Then, the catheter was advanced over the needle, and the needle was pulled out of the pleural space. Roughly 700 mL of bloody pleural effusion/serosanguineous pleural effusion was removed from the left pleural space. The procedure was well tolerated, no evidence of any immediate complications, chest x-ray postoperatively continued to show a small left pleural effusion, no further attempts were made. Fluid was not sent for different diagnostic studies because the patient had previous thoracentesis done twice previously. MMODL / IJN: [id number] /
[2024-09-01 07:25] VITALS: RESP 20; TEMP 98.2
[2024-09-01] MEDS: COLCHICINE 0.6 MG EACH PO SCH (08:16)
[2024-09-01 09:52] LABS: Anisocytosis Slight; Basophils % (A) 0 %; Eosinophils % (A) 0 %; HCT 29.5 % (34.0-46.0); HGB 8.8 gm/dL (11.4-16.0); Hypochromasia Marked; Lymphocytes # (A) 0.9 k/uL (1.0-4.8); Lymphocytes % (A) 9 %; MCH 27.2 pg (25.0-35.0); MCHC 29.9 g/dL (31.0-37.0); MCV 90.9 fL (80.0-100.0); Mean Platelet Volume 9.1; Monocytes # (A) 0.6 k/uL (0-1.0); Monocytes % (A) 6 %; Neutrophils # (A) 8.2 k/uL (1.3-7.7); Neutrophils % (A) 84 %; Platelet Count 195 k/uL (150-450); Poikilocytosis Moderate; RBC 3.24 m/uL (3.80-5.40); WBC 9.8 k/uL (3.8-10.6)
[2024-09-01 10:03] LABS: ALT 38 U/L (4-34); AST 41 U/L (14-36); African American GFR (CKD) >90 (>60 ml/min/1.73 sqM); Albumin 2.8 g/dL (3.5-5.0); Albumin/Globulin Ratio 0.9; Alkaline Phosphatase 115 U/L (38-126); Anion Gap 8 mmol/L; Blood Urea Nitrogen 17 mg/dL (7-17); Calcium 8.3 mg/dL (8.4-10.2); Carbon Dioxide 27 mmol/L (22-30); Chloride 102 mmol/L (98-107); Globulin 3.1 g/dL; Glucose 139 mg/dL (74-99); Non-African American GFR(CKD) 84 (>60 ml/min/1.73 sqM); Potassium 3.6 mmol/L (3.5-5.1); Sodium 137 mmol/L (137-145); Total Bilirubin 1.8 mg/dL (0.2-1.3); Total Protein 5.9 g/dL (6.3-8.2)
[2024-09-01] MEDS: METOCLOPRAMIDE 5 MG/ML 2 ML VIAL IVP STA (12:04)
--- NOTE | 2024-09-01 13:23 | P.PN ---
Subjective Progress Note Date: 09/01/24 Principal diagnosis: Abdominal pain, nausea and vomiting unknown etiology. History of bilateral pleural effusions, shortness of breath, status post left-sided thoracentesis with removal of 1 L of fluid on August 22, 2024, status post right sided thoracentesis with removal of 900 mL of fluid 08/24/24, moderate left pleural effusion with repeat left thoracentesis 08/31/2024 with removal of 700 mL bloody fluid, coronary artery disease status post recent stent followed by three-vessel off-pump CABG on August 09, 2024, preserved left ventricular systolic function, EF 55 to 60%, mild MR, TR, hypertension, diet-controlled diabetes, bipolar disorder, chronic thrombocytopenia and anemia, left internal carotid artery stenosis, chronic transaminitis with history of EtOH abuse, previous tobacco cessation with recent cessation from vaping, marijuana use The patient was seen and examined laying in bed on the sixth floor today. She underwent EGD yesterday which was unremarkable other than patchy antral erythema and gastritis for which biopsies were obtained to determine if H. pylori is present. Unfortunately patient reports she still has nausea and emesis with more than 2-3 sips of clear liquids and has not been able to keep anything down. States it feels like she has a ball in the center of her gastric area shortly after any oral intake. She does state her breathing has significantly improved and remains on room air. She has been ambulatory in the hallway. She states they are planning on discharging her today but she is frustrated because she does not have any answers regarding her abdominal pain/nausea/vomiting. Objective - Vital Signs Vital signs: Vital Signs Temp 98.2 F 09/01/24 07:00 Pulse 87 09/01/24 08:00 Resp 20 09/01/24 07:00 BP 103/58 09/01/24 07:00 Pulse Ox 97 09/01/24 07:00 FiO2 Intake & Output 08/31/24 09/01/24 09/01/24 18:59 06:59 18:59 Intake Total 120 Output Total 200 Balance -200 120 Weight 101 kg Intake: Oral 120 Output: Emesis 200 Other: Voiding Method Toilet Toilet Toilet # Voids 10 2 - Exam CONSTITUTIONAL: Appears mostly comfortable, cooperative, no acute distress RESPIRATORY: Lungs sounds diminished bilaterally. Respirations even, nonlabored. Currently on room air with oxygen saturation 97% CARDIOVASCULAR: S1, S2 present. Regular rate and rhythm. Sternum stable. Palpable peripheral pulses bilaterally. No edema present. No calf pain or tenderness noted. Heart hugger in place with patient demonstrating appropriate use GASTROINTESTINAL: Abdomen soft, nontender, nondistended. Active bowel sounds present 4 quadrants GENITOURINARY: Continues to void INTEGUMENTARY: Skin is warm and dry with evidence of good perfusion. Anterior chest incision well approximated NEUROLOGIC: Cranial nerves II through XII intact MUSKULOSKELETAL: Able to move all extremities, strength equal bilaterally, gait normal PSYCHIATRIC: Alert and oriented to person place and time, appropriate affect, intact judgment and insight - Allied health notes Allied health notes reviewed: nursing - Labs CBC & Chem 7: 09/01/24 09:28 09/01/24 09:28 Labs: Abnormal Lab Results - Last 24 Hours (Table) 09/01/24 09/01/24 Range/Units 09:28 09:28 RBC 3.24 L (3.80-5.40) m/uL Hgb 8.8 L (11.4-16.0) gm/dL Hct 29.5 L (34.0-46.0) % MCHC 29.9 L (31.0-37.0) g/dL RDW 16.0 H (11.5-15.5) % Neutrophils # 8.2 H (1.3-7.7) k/uL Lymphocytes # 0.9 L (1.0-4.8) k/uL Glucose 139 H (74-99) mg/dL Calcium 8.3 L (8.4-10.2) mg/dL Total Bilirubin 1.8 H (0.2-1.3) mg/dL AST 41 H (14-36) U/L ALT 38 H (4-34) U/L Total Protein 5.9 L (6.3-8.2) g/dL Albumin 2.8 L (3.5-5.0) g/dL Assessment and Plan Assessment: Abdominal pain, nausea and vomiting unknown etiology, status post EGD History of bilateral pleural effusions, shortness of breath, status post left- sided thoracentesis with removal of 1 L of fluid on August 22, 2024, status post right sided thoracentesis with removal of 900 mL of fluid 08/24/24, moderate left pleural effusion status post left thoracentesis 08/31/2024 with removal of 700 mL fluid History of coronary artery disease status post recent stent followed by three- vessel off-pump CABG on August 09, 2024 Preserved left ventricular systolic function, EF 55 to 60%, mild MR, TR Hypertension Diet-controlled diabetes Bipolar disorder Chronic thrombocytopenia and anemia Left internal carotid artery stenosis Chronic transaminitis with history of EtOH abuse Previous tobacco cessation with recent cessation from vaping Marijuana use Plan: Reglan IV push ordered x 1, will see if it helps patient's symptoms Continue clear liquids Continue current medication therapy Encourage patient to stay sitting in high Fowlers after any oral intake Increase activity as tolerated Continue sternal precautions Patient okay for discharge from cardiothoracic surgery standpoint when cleared by general surgery and internal medicine Patient is to follow-up with Dr. Ortiz in 1 month as he has seen her here several times since discharge from open heart surgery admission
--- NOTE | 2024-09-01 13:58 | P.PN ---
Subjective Progress Note Date: 09/01/24 This is a pleasant 49-year-old female patient who had recently undergone coronary artery bypass grafting on August 09, 2024. She did have complications of pleural effusions and had undergone a left-sided thoracentesis with 1050 mL of bloody fluid removed on 08/22/2024 and again right sided thoracentesis on 08/24/2024 with 900 mL of bloody fluid return. She had been recovering well. She presented back to the emergency room on 08/29/2024 with complaints of epigastric and abdominal pain and constipation. During her stay here she did have a chest x-ray that revealed a significant left-sided pleural e ffusion. Ultrasound was performed and there was an 11.8 cm pocket. We are consulted today for the same. She is seen on the regular medical floor. She is sitting up in bed. Awake and alert in no acute distress. Maintaining O2 saturations in the 90s on room air. White count 5.1. Hemoglobin 8.6. Platelets 184. Sodium 135. Potassium 3.6. Bicarb 26. BUN 11. Creatinine 0.9. Glucose 119. She has been initiated on IV Bumex. Lovenox for DVT prophylaxis. The patient is seen today September 01, 2024 in follow-up on the regular medical floor. She is currently sitting up in bed. Awake and alert in no acute distress. No worsening shortness of breath, cough or congestion. She is maintaining good O2 saturations in the 90s on room air. She did undergo a left- sided thoracentesis yesterday with 700 mL of bloody fluid returned. She also had undergone an EGD that did not reveal any significant abnormalities. Biopsies were taken to rule out Helicobacter pylori. No erosions or ulcers. She is still having some complaints of constipation. White count 9.8. Hemoglobin 8.8. Platelets 195. Sodium 137. Potassium 3.7. Bicarb 27. BUN 17. Creatinine 0.83. Glucose 139. AST 41. ALT 38. She is continued on colchicine. Lovenox for DVT prophylaxis. Objective - Vital Signs Vital signs: Vital Signs Temp 98.2 F 09/01/24 07:00 Pulse 87 09/01/24 08:00 Resp 20 09/01/24 07:00 BP 103/58 09/01/24 07:00 Pulse Ox 97 09/01/24 07:00 FiO2 Intake & Output 08/31/24 09/01/24 09/01/24 18:59 06:59 18:59 Intake Total 120 Output Total 200 Balance -200 120 Weight 101 kg Intake: Oral 120 Output: Emesis 200 Other: Voiding Method Toilet Toilet Toilet # Voids 10 2 - Exam GENERAL EXAM: Alert, pleasant 49-year-old female, on room air, comfortable in no apparent distress. HEAD: Normocephalic. EYES: Normal reaction of pupils, equal size. NOSE: Clear with pink turbinates. THROAT: Edentulous. No erythema or exudates. NECK: No masses, no JVD. CHEST: Sternum stable. Heart hugger in place. LUNGS: Equal air entry with diminished breath sounds of the left lung base. CVS: S1 and S2 normal with no audible murmur, regular rhythm. ABDOMEN: No hepatosplenomegaly, normal bowel sounds, no guarding or rigidity. SPINE: No scoliosis or deformity SKIN: No rashes CENTRAL NERVOUS SYSTEM: No focal deficits, tone is normal in all 4 extremities. EXTREMITIES: There is no peripheral edema. No clubbing, no cyanosis. P eripheral pulses are intact. - Labs CBC & Chem 7: 09/01/24 09:28 09/01/24 09:28 Labs: Abnormal Lab Results - Last 24 Hours (Table) 09/01/24 09/01/24 Range/Units 09:28 09:28 RBC 3.24 L (3.80-5.40) m/uL Hgb 8.8 L (11.4-16.0) gm/dL Hct 29.5 L (34.0-46.0) % MCHC 29.9 L (31.0-37.0) g/dL RDW 16.0 H (11.5-15.5) % Neutrophils # 8.2 H (1.3-7.7) k/uL Lymphocytes # 0.9 L (1.0-4.8) k/uL Glucose 139 H (74-99) mg/dL Calcium 8.3 L (8.4-10.2) mg/dL Total Bilirubin 1.8 H (0.2-1.3) mg/dL AST 41 H (14-36) U/L ALT 38 H (4-34) U/L Total Protein 5.9 L (6.3-8.2) g/dL Albumin 2.8 L (3.5-5.0) g/dL Assessment and Plan Assessment: Abdominal pain and constipation. 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 daily Stable and on room air Follow-up in our office in 1 week postdischarge I have personally seen and examined the patient, performed the documentation and the assessment and plan as written. Number of minutes spent on the visit: 10.
[2024-09-01 14:06] VITALS: BP 116/77; PULSE 96
--- NOTE | 2024-09-01 15:58 | P.DS ---
Providers Date of admission: 08/29/24 08:06 Attending physician: Dequan Wang MD Consults: 08/29/24 08:05 Consult Physician Routine Consulting Provider: Fito Colón Consult Reason/Comments: abdominal pain Do you want consulting provider notified?: Yes 08/29/24 08:21 Consult Physician Routine Consulting Provider: Phong Ortiz Consult Reason/Comments: your patient. abdominal pain Do you want consulting provider notified?: Yes 08/29/24 12:03 Consult Physician Routine Consulting Provider: Ken Street Consult Reason/Comments: Bilateral nephrolithiasis Do you want consulting provider notified?: Yes 08/31/24 08:19 Consult Physician Routine Consulting Provider: Rajiv Julio Consult Reason/Comments: left pleural effusion Do you want consulting provider notified?: Already Contacted Primary care physician: Stated None Hospital Course: Discharge diagnoses; #Abdominal pain of unclear etiology, possibly secondary to constipation #Bilateral pleural effusions possibly secondary to recent cardiothoracic surgery #CAD with recent CABG #Hypertension #Nephrolithiasis #Hyperlipidemia #Anemia Hospital course; Patient is a 49-year-old female came in with complaints of nausea vomiting and mid abdominal pain crampy in nature severe, nonradiating. Patient CT of the abdomen is significant for multiple bilateral renal stones without any hydronephrosis the larger 1 being 12 mm. Patient last bowel movement was about 2 to 3 days ago patient does not have any significant tenderness on exam. Patient also found to have significant pleural effusion bilaterally left more than right. Patient had a recent coronary bypass grafting on August 09. Patient had a normal ejection fraction in the past he did not have any BNP available at this time already BNP patient does take Bumex 1 mg daily at home along with Aldactone. Patient has mildly elevated nonspecific elevation of lipase, not consistent with pancreatitis. 08/30/24 - Patient seen at bedside today. Stating that she feels better and does not have any pain currently. Urology, surgery, and cardiothoracic surgery all consulted. Urology stated the patient is to follow-up outpatient a few weeks following discharge follow-up on her renal calculi. Per surgery's recommendations small bowel follow-through was completed, suggesting possible EGD if the small bowel follow-through was negative. They will continue to monitor and follow. Patient's vital signs as of this morning showed blood pressure 97/63, heart rate of 67, respiratory rate of 16, saturating 98% on room air. Small bowel follow-through x-ray ordered by surgery done today showing normal detailed small bowel examination. Patient has complained of continued constipation, lactulose 10 mg daily has been added in the hopes of producing a bowel movement. 08/31/24 - Patient seen at bedside today. Per case management the patient is open to [facility] care. Patient ultrasound of the chest done on 08/31 which showed left pleural effusion pocket size of 11.8 cm, and skin surface to fluid distance 5.2 cm. Per urology's recommendation patient to follow-up in 1 to 2 weeks as an outpatient. Patient scheduled to go for an EGD today per surgery's request. Additionally pulmonology has been consulted as a result of the patient's left pleural effusion. Patient's vital signs as of this morning showed blood pressure 117/77, heart rate of 82, respiratory rate of 16, saturating 92% on room air. Patient was seen by cardiothoracic surgery this morning, status post CABG on August 09, 2024, and at that time she had stated to them that she was feeling much better and had no current complaints. At bedside today patient noted to be having increasing abdominal pain, generalized throughout the entire abdomen with what she describes as a gaseous, pressure- like pain. Additionally patient had a thoracentesis completed this morning, with removal of fluid from the patient pleural effusion on the left side. Following this procedure the patient began endorsing severe generalized abdominal pain for which she was given Dilaudid and morphine. Patient is scheduled to go for an EGD later today, in the early afternoon. Patient also endorsed vomiting, a bilious vomit. Additionally, at that time patient presented with minimal bowel sounds presenting some possibility that the patient may have an ileus. At that time abdominal x-ray was ordered which is currently pending. 09/01/24 - Patient seen at bedside today. Patient states she is continuing to have discomfort, however has improved. Yesterday patient underwent an EGD which revealed no increased fluid, food or secretions the upper GI tract. Very minimal, nonspecific, patchy antral erythema and gastritis noted. Biopsies were taken for helical back to pylori. Left-sided thoracentesis halves completed yesterday (08/31) in which she had 700 cc of serosanguineous fluid removed. 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 Additionally, they recommend patient to begin on colchicine 1.2 mg p.o. daily. Yesterday with increasing abdominal pain the patient reported nausea and vomiting, patient's nurse also noted that her blood pressure was running high, which was abnormal for, during the afternoon with the thought being that she possibly vomited up her hypertension medications. In consultati on with cardiothoracic surgery, due to her recent CABG (08/09/2024) the patient was given 10 mg IV push hydralazine one-time, additionally per the patient's nurse she has not been consistent with her oral intake on her liquid diet so the patient was started on 50 mL/h normal saline. Patient is currently cleared for discharge from pulmonology, general surgery, and cardiothoracic surgery standpoint. While the patient is continue to have pain the imaging and studies done while the patient has been present in the hospital all been negative. Patient is to follow-up with pulmonology in 1 week, cardiothoracic surgery in 1 month, and follow-up with her PCP within the next week. PHYSICAL EXAMINATION: GENERAL: The patient is alert and oriented x3, in some distress. Well developed, well nourished. HEENT: Pupils are round and equally reacting to light. EOMI. No scleral icterus. No conjunctival pallor. Normocephalic, atraumatic. No pharyngeal erythema. No thyromegaly. CARDIOVASCULAR: S1 and S2 present. No murmurs, rubs, or gallops. PULMONARY: Chest is clear to auscultation, no wheezing or crackles. ABDOMEN: Soft, nontender, nondistended.. No palpable organomegaly. Minimal bowel sounds. MUSCULOSKELETAL: No joint swelling or deformity. EXTREMITIES: No cyanosis, clubbing, or pedal edema. NEUROLOGICAL: Gross neurological examination did not reveal any focal deficits. SKIN: No rashes. Dictation was produced using [employer] dictation software. please excuse any grammatical, word or spelling errors. Dr. Heriberto MD I have performed a history and physical examination and medical decision making of this patient, discussed the same with the the resident, and agree with the assessment and plan as written. I performed brief physical exam. Plan - Discharge Summary Discharge Rx Participant: Yes New Discharge Prescriptions: New Colchicine [Colcrys] 1.2 mg PO DAILY 30 Days #60 each Continue Atorvastatin [Lipitor] 40 mg PO DAILY #30 tab Metoprolol Tartrate [Lopressor] 25 mg PO BID #60 tab Clopidogrel [Plavix] 75 mg PO DAILY #30 tab Bumetanide [BUMEX] 1 mg PO DAILY #7 tab Calcium Carbonate [Tums] 1,000 mg PO Q4HR PRN tab PRN Reason: Dyspepsia Omeprazole 20 mg PO DAILY Ondansetron Odt [Zofran ODT] 4 mg PO Q8HR PRN #10 tab PRN Reason: Nausea Aspirin 81 mg PO DAILY tab Spironolactone [Aldactone] 12.5 mg PO DAILY #30 tab Losartan [Cozaar] 12.5 mg PO DAILY #30 tab HYDROcodone/APAP 5-325MG [[place] 5-325] 1 tab PO Q6HR methylPREDNISolone Dose Pack [Medrol Dose Pack] See Taper PO DIRECTED Discharge Medication List Aspirin 81 mg PO DAILY tab 08/01/24 [Rx] Atorvastatin [Lipitor] 40 mg PO DAILY #30 tab 08/13/24 [Rx] Clopidogrel [Plavix] 75 mg PO DAILY #30 tab 08/13/24 [Rx] Metoprolol Tartrate [Lopressor] 25 mg PO BID #60 tab 08/13/24 [Rx] Bumetanide [BUMEX] 1 mg PO DAILY #7 tab 08/19/24 [Rx] Calcium Carbonate [Tums] 1,000 mg PO Q4HR PRN tab 08/19/24 [Rx] Losartan [Cozaar] 12.5 mg PO DAILY #30 tab 08/19/24 [Rx] Spironolactone [Aldactone] 12.5 mg PO DAILY #30 tab 08/19/24 [Rx] HYDROcodone/APAP 5-325MG [[place] 5-325] 1 tab PO Q6HR 08/23/24 [History] Omeprazole 20 mg PO DAILY 08/23/24 [History] methylPREDNISolone Dose Pack [Medrol Dose Pack] See Taper PO DIRECTED 08/27/24 [History] Ondansetron Odt [Zofran ODT] 4 mg PO Q8HR PRN #10 tab 08/28/24 [Rx] Colchicine [Colcrys] 1.2 mg PO DAILY 30 Days #60 each 09/01/24 [Rx] Follow up Appointment(s)/Referral(s): Rajiv Julio MD [STAFF PHYSICIAN] - 1 Week eDreje Arrieta MD [REFERRING] - 1-2 Days Phong Ortiz MD [STAFF PHYSICIAN] - 4 Weeks None,Stated [Primary Care Provider] - 1-2 days Patient Instructions/Handouts: Abdominal Pain (ED) Activity/Diet/Wound Care/Special Instructions: Increase activity as tolerated Continue sternal precautions Discharge Disposition: HOME SELF-CARE
--- NOTE | 2024-09-15 21:53 | CDI ---
Documentation Clarification Form Date: 09/15/2024 09:45:46 PM From: Mary Beth Hernandez Phone: Admit Date: 08/29/2024 08:06:00 AM Patient Name: Yovana Ramos Visit Number: [id number] Discharge Date: 09/01/2024 04:52:00 PM ATTENTION: The Clinical Documentation Specialists (CDI) and [facility] Coding Staff appreciate your assistance in clarifying documentation. Please respond to the clarification below the line at the bottom and electronically sign. The CDI & [facility] Coding staff will review the response and follow-up if needed. Please note: Queries are made part of the Legal Health Record. If you have any questions, please contact the author of this message via ITS. Doctor/Provider: Mateo Sommers The final diagnosis of the pathology report states chronic gastritis. Coding guidelines do not allow coding professionals to code based on pathology results; therefore, clarification is requested. History/risk factors: 49yo F, gastritis, rene pleural effusion, CAD, DMII, HTN, OA, nephrolithiasis, HLD, BPD, Post cardiotomy syndrome, anemia, thrombocytopenia, ETOH abuse Clinical Indicators: complaints ofnausea vomitingand midabdominal paincrampy in nature severe, nonradiating. PatientCT of the abdomenis significant for multiple bilateralrenal stoneswithout any hydronephrosisthe larger 1 being 12 mm. Patient last bowel movement was about 2 to 3 days ago patient does not have any significant tenderness on exam. Patchy antral erythema and gastritis for which biopsies were obtained to determine if H. pylori is present. Helicobacter pyloriorganisms arenot identifiedon routine H+E sections. Treatment: Stomach, Biopsy Antrum; herEGDwas basically nondiagnostic, will continue to follow at the patient needs tofollow-upwith Dr. Carrera or Dr. Pizano on outpatient basis forfollow-upon herpleural effusions. Please clarify if you agree with the pathology report diagnosis of chronic gastritis: [ ] Yes [ ] No [ ] Other (please specify) [ ] Unable to determine (Template Last Revised: January 2021) MTDD
--- NOTE | 2024-09-15 22:04 | CDI ---
Documentation Clarification Form Date: 09/15/2024 09:57:04 PM From: Mary Beth Hernandez Phone: Admit Date: 08/29/2024 08:06:00 AM Patient Name: Yovana Ramos Visit Number: [id number] Discharge Date: 09/01/2024 04:52:00 PM ATTENTION: The Clinical Documentation Specialists (CDI) and [facility] Coding Staff appreciate your assistance in clarifying documentation. Please respond to the clarification below the line at the bottom and electronically sign. The CDI & [facility] Coding staff will review the response and follow-up if needed. Please note: Queries are made part of the Legal Health Record. If you have any questions, please contact the author of this message via ITS. Doctor/Provider: Adolfo Louis Your patient may have chronicdiastolicdysfunction per H&P and 08/30 Progress Note which may lack sufficient clinical evidence/support in the medical record. Additional clarification is requested. History/Risk Factors: 49yo F, gastritis, rene pleural effusion, CAD, DMII, HTN, OA, nephrolithiasis, HLD, BPD, Post cardiotomy syndrome, anemia, thrombocytopenia, ETOH abuse Clinical Indicators: VS/Pulse OX: 94-98 BNP: 772 Echo: 08/01/24 normal LV systolic function with EF 55 to 60%, mild MR and TR Chest x ray: Heart/mediastinum: Cardiomediastinal silhouette isenlargedand stable. Post-CABGchanges. Left atrial appendageocclusiondevices present. Treatment: started on IV Bumex In your professional opinion, can you please clarify if chronicdiastolicdysfunction is a valid diagnosis? [ x ] Chronic Diastolic Heart Failure [ ] Chronic Diastolic Heart Failure ruled out [ ] Other, please specify [ ] Unable to determine (Template Last Revised: January 2021) MTDD
--- NOTE | 2024-09-17 22:41 | CDI ---
Documentation Clarification Form Date: 09/17/2024 10:37:15 PM From: Mary Beth Hernandez Phone: Admit Date: 08/29/2024 08:06:00 AM Patient Name: Yovana Ramos Visit Number: [id number] Discharge Date: 09/01/2024 04:52:00 PM ATTENTION: The Clinical Documentation Specialists (CDI) and [facility] Coding Staff appreciate your assistance in clarifying documentation. Please respond to the clarification below the line at the bottom and electronically sign. The CDI & [facility] Coding staff will review the response and follow-up if needed. Please note: Queries are made part of the Legal Health Record. If you have any questions, please contact the author of this message via ITS. Doctor/Provider: Mateo Sommers Thank you for acknowledging the previous query; however, it was signed and submitted without an answer. The final diagnosis of the pathology report stateschronic gastritis. Coding guidelines do not allow coding professionals to code based on pathology results; therefore, clarification is requested. History/risk factors: 49yo F,gastritis, bilpleural effusion,CAD,DMII,HTN, OA,nephrolithiasis,HLD,BPD,Post cardiotomy syndrome,anemia, thrombocytopenia,ETOH abuse Clinical Indicators: complaints ofnausea vomitingand midabdominal paincrampy in nature severe, nonradiating. PatientCT of the abdomenis significant for multiple bilateralrenal stoneswithout anyhydronephrosisthe larger 1 being 12 mm. Patient last bowel movement was about 2 to 3 days ago patient does not have any significant tenderness on exam. Patchy antralerythemaandgastritisfor whichbiopsieswere obtained to determine ifH. pyloriis present. H. pyloriorganisms arenot identifiedon routine H+E sections. Treatment: Stomach,BiopsyAntrum; herEGDwas basically nondiagnostic, will continue to follow at the patient needs tofollow-upwith Dr. Carrera or Dr. Pizano on outpatient basis forfollow-upon herpleural effusions. Please clarify if you agree with the pathology report diagnosis ofchronic gastritis: [ ] Yes [ ] No [ ] Other (please specify) [ ] Unable to determine (Template LastRevised: January 2021) MTDD
--- NOTE | 2024-09-20 13:38 | CDI ---
Documentation Clarification Form Date: 09/20/2024 01:33:03 PM From: Mary Beth Hrenandez Phone: Admit Date: 08/29/2024 08:06:00 AM Patient Name: Yovana Ramos Visit Number: [id number] Discharge Date: 09/01/2024 04:52:00 PM ATTENTION: The Clinical Documentation Specialists (CDI) and [facility] Coding Staff appreciate your assistance in clarifying documentation. Please respond to the clarification below the line at the bottom and electronically sign. The CDI & [facility] Coding staff will review the response and follow-up if needed. Please note: Queries are made part of the Legal Health Record. If you have any questions, please contact the author of this message via ITS. Doctor/Provider: Adolfo Louis The final diagnosis of the pathology report stateschronic gastritis. Coding guidelines do not allow coding professionals to code based on pathology results; therefore, clarification is requested. History/risk factors: 49yo F,gastritis, bilpleural effusion,CAD,DMII,HTN, OA,nephrolithiasis,HLD,BPD,Post cardiotomy syndrome,anemia, thrombocytopenia,ETOH abuse Clinical Indicators: complaints ofnausea vomitingand midabdominal paincrampy in nature severe, nonradiating. PatientCT of the abdomenis significant for multiple bilateralrenal stoneswithout anyhydronephrosisthe larger 1 being 12mm. Patient last bowel movement was about 2 to 3 days ago patient does not have any significant tenderness on exam. Patchy antralerythemaandgastritisfor whichbiopsieswere obtained to determine ifH. pyloriis present. H. pyloriorganisms arenot identifiedon routine H+E sections. Treatment: Stomach,BiopsyAntrum; EGDwas basically nondiagnostic, will continue to follow at the patient needs tofollow-upwith Dr. Carrera or Dr. Pizano on outpatient basis forfollow-upon herpleural effusions. Please clarify if you agree with the pathology report diagnosis ofchronic gastritis: [x ] Yes [ ] No [ ] Other (please specify) [ ] Unable to determine (Template LastRevised: January 2021) MTDD
== END 2024-09-01 16:52 | disposition home or self-care (01) | DRG 392 ==
LOC: EC 03:33 → 6NMEDSUR 08:05 → OBSVTOIN 08:06 → 6NMEDSUR 14:59
PROVIDERS: ADMIT Internal Medicine; ATTEND Internal Medicine
PROC: 0DB78ZX Excision of Stomach, Pylorus, Via Natural or Artificial Opening Endoscopic, Diagnostic (ICD-10-PCS; principal; 2024-08-31 07:30)
PROC: 0W9B3ZZ Drainage of Left Pleural Cavity, Percutaneous Approach (ICD-10-PCS; 2024-09-01)
DX: K29.50 Unspecified chronic gastritis without bleeding (principal); J90 Pleural effusion, not elsewhere classified; I50.32 Chronic diastolic (congestive) heart failure; D69.6 Thrombocytopenia, unspecified; I11.0 Hypertensive heart disease with heart failure; E11.9 Type 2 diabetes mellitus without complications; F31.9 Bipolar disorder, unspecified; I65.22 Occlusion and stenosis of left carotid artery; F10.10 Alcohol abuse, uncomplicated; D64.9 Anemia, unspecified; E78.5 Hyperlipidemia, unspecified; I25.10 Atherosclerotic heart disease of native coronary artery without angina pectoris; N20.0 Calculus of kidney; K59.00 Constipation, unspecified; N28.89 Other specified disorders of kidney and ureter; R74.01 Elevation of levels of liver transaminase levels; I08.1 Rheumatic disorders of both mitral and tricuspid valves; I97.0 Postcardiotomy syndrome; Z79.02 Long term (current) use of antithrombotics/antiplatelets; Z79.82 Long term (current) use of aspirin; Z95.1 Presence of aortocoronary bypass graft; Z79.51 Long term (current) use of inhaled steroids; Z79.899 Other long term (current) drug therapy; Z95.5 Presence of coronary angioplasty implant and graft; Z87.891 Personal history of nicotine dependence
CPT/HCPCS: 36415; 43235; 71045; 74019; 74176; 74250; 76604; 80053; 81001; 82150; 83690; 83880; 85025; 85027; 88305; 96361; 96374; 96375; 96376; 99285

== ENCOUNTER 2024-09-15 06:47 | Day surgery (SDC) | payer BC ==
[2024-09-15 08:43] VITALS: TEMP 98.8
[2024-09-15 08:44] LABS: Mean Platelet Volume 11.5; Platelet Count 108 k/uL (150-450)
[2024-09-15 08:51] LABS: INR 1.2 (<1.2); Prothrombin Time 13.2 sec (10.0-12.5)
--- NOTE | 2024-09-15 10:39 | XR ---
EXAMINATION TYPE: XR chest 1V portable DATE OF EXAM: 09/15/2024 10:17 AM COMPARISON: Chest radiographs from 09/14/2024 TECHNIQUE: XR chest 1V portable Portable AP radiograph of the chest. CLINICAL INDICATION:Female, 49 years old with history of thoracentesis; FINDINGS: Lungs/Pleura: Right lung is clear. No pneumothorax. No focal consolidation. No right pleural effusion . Slightly decreased moderate left pleural effusion. Pulmonary vascularity: Unremarkable. Heart/mediastinum: Cardiomediastinal silhouette is partially obscured due to overlying and adjacent o pacities. Post-CABG changes. Left atrial appendage occlusion devices present. Musculoskeletal: No acute osseous pathology. Midline sternotomy wires are noted and stable. IMPRESSION: 1. Slightly decreased moderate left pleural effusion status post thoracentesis. No sizable pneumotho rax. 2. Post-CABG changes redemonstrated. [facility], , 09/15/2024 10:37 AM
--- NOTE | 2024-09-15 10:40 | XR ---
EXAMINATION TYPE: XR chest 2V DATE OF EXAM: 09/15/2024 10:18 AM COMPARISON: Chest radiograph from earlier today. TECHNIQUE: XR chest 2V Frontal and lateral views of the chest. CLINICAL INDICATION:Female, 49 years old with history of SOB AFTER THORACENTESIS; FINDINGS: Lungs/Pleura: Right lung is clear. No pneumothorax. No focal consolidation. No right pleural effusion . Stable moderate left pleural effusion. Pulmonary vascularity: Unremarkable. Heart/mediastinum: Cardiomediastinal silhouette is partially obscured due to overlying and adjacent o pacities. Post-CABG changes. Left atrial appendage occlusion devices present. Musculoskeletal: No acute osseous pathology. Midline sternotomy wires are noted and stable. IMPRESSION: 1. Stable moderate left pleural effusion. No sizable pneumothorax. 2. Post-CABG changes redemonstrated. [facility], , 09/15/2024 10:38 AM
--- NOTE | 2024-09-15 10:41 | US ---
Ultrasound-guided therapeutic and diagnostic thoracentesis DATE OF EXAM: 09/15/2024 CLINICAL HISTORY: Left pleural effusion The procedure was discussed with the patient. The risks, complications, benefits, and alternatives we re discussed and any questions were answered. Informed consent was obtained. The patient was placed supine on the ultrasound table and prepped and draped in the usual sterile fas hion. All elements of maximal barrier and sterile technique were utilized. Under ultrasound guidance, access into the pleural space was obtained, via the thoracentesis catheter system and direct ultrasound guidance.Enrique roximately 1.3 liters of serous fluid was removed. The patient was stable throughout the procedure and remained stable upon discharge from Department of Radiology. IMPRESSION: 1. Successful therapeutic and diagnostic thoracentesis under ultrasound guidance. [facility], , 09/15/2024 10:39 AM
[2024-09-15 11:26] VITALS: RESP 18
--- NOTE | 2024-09-15 11:33 | XR ---
EXAMINATION TYPE: XR chest 1V DATE OF EXAM: 09/15/2024 11:29 AM COMPARISON: Chest radiographs from earlier today. TECHNIQUE: XR chest 1V Frontal view of the chest. CLINICAL INDICATION:Female, 49 years old with history of Post thora follow up; FINDINGS: Lungs/Pleura: Right lung is clear. No pneumothorax. No focal consolidation. No right pleural effusion . Stable moderate left pleural effusion. Pulmonary vascularity: Unremarkable. Heart/mediastinum: Cardiomediastinal silhouette is partially obscured due to overlying and adjacent o pacities. Post-CABG changes. Left atrial appendage occlusion device is present. Musculoskeletal: No acute osseous pathology. Midline sternotomy wires are noted and stable. IMPRESSION: 1. Stable moderate left pleural effusion. No sizable pneumothorax. 2. Post-CABG changes redemonstrated. [facility], , 09/15/2024 11:30 AM
[2024-09-15 11:52] VITALS: BP 133/78; PULSE 98
[2024-09-16 10:44] LABS: Amylase, Fluid Source Pleural Fluid; Amylase,Body Fluid 30 U/L; Glucose, BF Source Pleural Fluid; Glucose, Body Fluid 131 mg/dL; LDH, Body Fluid Source Pleural Fluid; T. Protein, Body Fluid Source Pleural Fluid; Total Protein, Body Fluid 3050 mg/dL
[2024-09-16 13:40] LABS: Appearance,BF Blood Tinged (Clear)
== END 2024-09-15 11:30 | disposition home or self-care (01) ==
LOC: RADPROMAIN 06:47
PROVIDERS: ATTEND Internal Medicine
DX: J90 Pleural effusion, not elsewhere classified (principal); Z95.1 Presence of aortocoronary bypass graft
CPT/HCPCS: 32555; 36415; 71045; 71046; 82150; 82945; 83615; 84157; 85049; 85610; 87070; 87075; 87116; 87205; 87206; 88108; 88305; 89050

== ENCOUNTER 2024-09-15 11:34 | Emergency (ER) | payer BC ==
[2024-09-15] MEDS: SODIUM CHLORIDE 0.9% 1,000 ML IV STA (12:46)
--- NOTE | 2024-09-15 12:51 | ED ---
SOB HPI - General Chief Complaint: Shortness of Breath Stated Complaint: SOB/fluid in lung Source: patient, RN/MD, RN notes reviewed, old records reviewed Mode of arrival: wheelchair - History of Present Illness Initial Comments: This is a 49 female to the ER for evaluation, patient is postthoracentesis coming in with chest pain chest pain and shortness of breath relatively shortly after the procedure. The symptoms have been ongoing MD Complaint: shortness of breath, cough, chest pain, anxiety -: days(s) Severity: severe Severity scale (1-10): 8 Quality: aching Consistency: constant Improves With: nothing Worsens With: nothing Context: recent illness Associated Symptoms: chest pain Treatments Prior to Arrival: none - Related Data Home Medications Medication Instructions Recorded Confirmed Atorvastatin Calcium [Lipitor] 40 mg PO DAILY 09/15/24 09/28/24 Ondansetron Odt [Zofran ODT] 4 mg PO Q8HR PRN 09/15/24 09/28/24 Gabapentin [Neurontin] 300 mg PO HS 09/23/24 09/28/24 Previous Rx's Medication Instructions Recorded Metoprolol Tartrate [Lopressor] 25 mg PO BID #60 tab 08/13/24 Losartan [Cozaar] 12.5 mg PO DAILY #30 tab 08/19/24 Allergies Allergy/AdvReac Type Severity Reaction Status Date / Time capsaicin Allergy Rash/Hives/ Verified 09/28/24 08:25 Swelling Review of Systems ROS Statement: Those systems with pertinent positive or pertinent negative responses have been documented in the HPI. ROS Other: All systems not noted in ROS Statement are negative. Past Medical History Past Medical History: Coronary Artery Disease (CAD), Diabetes Mellitus, Hypertension, Osteoarthritis (OA), Skin Disorder Additional Past Medical History / Comment(s): KIDNEY STONES, diet controlled diabetic-no longer needs med, no longer needs BP med, seasonal allergies, abscess right breast, left breast hx. of abscess, yeast in skin fold in abd. cabg aug 09 2024. History of Any Multi-Drug Resistant Organisms: None Reported Past Surgical History: Appendectomy, Breast Surgery, Cholecystectomy, Coronary Bypass/CABG, Heart Catheterization With Stent, Orthopedic Surgery, Tubal Ligation Additional Past Surgical History / Comment(s): carpal tunnel RIGHT WRIST, dental, abcess drainage left breast x2 (July 2016, March 2019, Aug 2019); RT breast I&D 05/22/21, 06/05/21; Left ankle surgery. CABG Aug 09 2024, multiple thoracentesis Past Anesthesia/Blood Transfusion Reactions: No Reported Reaction, Family History of Problems w/ Anesthesia Additional Past Anesthesia/Blood Transfusion Reaction / Comment(s): No blood transfusion to date, mom stopped breathing during a surg. & had to be resuscitated Date of Last Stent Placement:: 07/30/24 Past Psychological History: Anxiety, Bipolar, Depression Smoking Status: Former smoker Past Alcohol Use History: None Reported Past Drug Use History: Marijuana - Past Family History Mother Family Medical History: Cancer Additional Family Medical History / Comment(s): CERVICAL CANCER Father Family Medical History: Unable to Obtain Additional Family Medical History / Comment(s): Patient did not know her father General Exam General appearance: alert, in no apparent distress, anxious Head exam: Present: atraumatic, normocephalic, normal inspection Eye exam: Present: normal appearance, PERRL, EOMI. Absent: scleral icterus, conjunctival injection, periorbital swelling ENT exam: Present: normal exam, mucous membranes moist Neck exam: Present: normal inspection. Absent: tenderness, meningismus, lymphadenopathy Respiratory exam: Present: normal lung sounds bilaterally. Absent: respiratory distress, wheezes, rales, rhonchi, stridor Cardiovascular Exam: Present: normal rhythm, tachycardia, normal heart sounds. Absent: systolic murmur, diastolic murmur, rubs, gallop, clicks GI/Abdominal exam: Present: soft, normal bowel sounds. Absent: distended, tenderness, guarding, rebound, rigid Extremities exam: Present: normal inspection, full ROM, normal capillary refill. Absent: tenderness, pedal edema, joint swelling, calf tenderness Back exam: Present: normal inspection Neurological exam: Present: alert, oriented X3, CN II-XII intact Psychiatric exam: Present: normal affect, normal mood Skin exam: Present: warm, dry, intact, normal color. Absent: rash Course Vital Signs 09/15/24 09/15/24 09/15/24 11:35 11:46 12:10 Temperature 98.2 F Pulse Rate 104 H 101 H Respiratory 22 22 22 Rate Blood Pressure 162/105 154/73 O2 Sat by Pulse 99 98 Oximetry 09/15/24 09/15/24 09/15/24 12:28 13:41 13:53 Temperature 98.3 F Pulse Rate 97 105 H 96 Respiratory 17 Rate Blood Pressure 145/82 O2 Sat by Pulse 100 Oximetry 09/15/24 09/15/24 09/15/24 14:34 15:19 15:48 Temperature Pulse Rate 103 H 112 H 100 Respiratory 17 14 16 Rate Blood Pressure 113/70 123/60 139/85 O2 Sat by Pulse 99 100 99 Oximetry 09/15/24 16:17 Temperature 98.2 F Pulse Rate 108 H Respiratory 16 Rate Blood Pressure 132/67 O2 Sat by Pulse 98 Oximetry - Reevaluation(s) Reevaluation #1: 09/15/24 13:05 Medical records reviewed Reevaluation #2: Patient symptoms are significant improved here in the ER especially pain control Reevaluation #3: Patient informed of results questions answered Reevaluation #4: Was pt. sent in by a medical professional or institution (, PA, PUBLIC ACCOUNTANT, urgent care, hospital, or penitentiary...) When possible be specific @ -no Did you speak to anyone other than the patient for history (EMS, parent, family, police, friend...)? What history was obtained from this source @ -no Did you review nursing and triage notes (agree or disagree)? Why? @ -agree Are old charts reviewed (outside hosp., previous admission, EMS record, old EKG, old radiological studies, urgent care reports/EKG's, penitentiary records)? Report findings @ -yes Differential Diagnosis (chest pain, altered mental status, abdominal pain women, abdominal pain men, vaginal bleeding, weakness, fever, dyspnea, syncope, headache, dizziness, GI bleed, back pain, seizure, CVA, palpatations, mental health, musculoskeletal)? @ -prior EKG interpreted by me (3pts min.). @ -yes X-rays interpreted by me (1pt min.). @ -yes unchanged negative for acute disease, no new effusion or edema CT interpreted by me (1pt min.). @ -no U/S interpreted by me (1pt. min.). @ -no What testing was considered but not performed or refused? (CT, X-rays, U/S, labs)? Why? @ -none What meds were considered but not given or refused? Why? @ -none Did you discuss the management of the patient with other professionals (professionals i.e. , PA, PUBLIC ACCOUNTANT, lab, RT, psych nurse, clinical social work aide, psych therapist, teacher, chief quality officer, comp field case manager)? Give summary @ -no Was smoking cessation discussed for >3mins.? @ -no Was critical care preformed (if so, how long)? @ -no Were there social determinants of health that impacted care today? How? (Homelessness, low income, unemployed, alcoholism, drug addiction, transportation, low edu. Level, literacy, decrease access to med. care, snf, rehab)? @ -none Was there de-escalation of care discussed even if they declined (Discuss DNR or withdrawal of care, Hospice)? DNR status @ -no What co-morbidities impacted this encounter? (DM, HTN, Smoking, COPD, CAD, Cancer, CVA, ARF, Chemo, Hep., AIDS, mental health diagnosis, sleep apnea, mor bid obesity)? @ -none Was patient admitted / discharged? Hospital course, mention meds given and ro heather, prescriptions, significant lab abnormalities, going to OR and other pertinent info. @ - 49 female to ER for chest pain. Patient has persistent chest pain here in the ER although improving. Patient feels well and can be discharged home with shortness of breath and chest pain after thoracentesis pain improved symptoms improved x-ray is negative patient can be discharged home Discharge Undiagnosed new problem with uncertain prognosis? @ -no Drug Therapy requiring intensive monitoring for toxicity (Heparin, Nitro, Insulin, Cardizem)? @ -no Were any procedures done? @ -no Diagnosis/symptom? @ -Chest pain postoperative pain thoracentesis Acute, or Chronic, or Acute on Chronic? @ -Acute Uncomplicated (without systemic symptoms) or Complicated (systemic symptoms)? @ -Complicated Side effects of treatment? @ -no Exacerbation, Progression, or Severe Exacerbation? @ -exacerbation Poses a threat to life or bodily function? How? (Chest pain, USA, CT, pneumonia, PE, COPD, DKA, ARF, appy, cholecystitis, CVA, Diverticulitis, Homicidal, Suicidal, threat to staff... and all critical care pts) @ -yes postoperative thoracentesis Reevaluation #5: Differential Dyspnea: Coronary syndrome, arrhythmia, tamponade, asthma, COPD, pulmonary embolism, pneumonia, pneumothorax, pulmonary effusion, anaphylaxis, diabetic ketoacidosis, flailed chest, pulmonary contusion, diaphragmatic rupture, anemia, neuromuscular, this is not meant to be an all-inclusive list. Medical Decision Making - Medical Decision Making 49 female to ER for chest pain. Patient has persistent chest pain here in the ER although improving. Patient feels well and can be discharged home - Lab Data Result diagrams: 09/15/24 12:53 09/15/24 12:53 Lab Results 09/15/24 09/15/24 09/15/24 Range/Units 12:53 12:53 12:53 WBC 3.8 (3.8-10.6) k/uL RBC 3.65 L (3.80-5.40) m/uL Hgb 9.8 L (11.4-16.0) gm/dL Hct 32.0 L (34.0-46.0) % MCV 87.7 (80.0-100.0) fL MCH 26.9 (25.0-35.0) pg MCHC 30.7 L (31.0-37.0) g/dL RDW 15.9 H (11.5-15.5) % Plt Count 120 L (150-450) k/uL MPV 14.3 Neutrophils % 57 % Lymphocytes % 27 % Monocytes % 8 % Eosinophils % 6 % Basophils % 0 % Neutrophils # 2.2 (1.3-7.7) k/uL Lymphocytes # 1.0 (1.0-4.8) k/uL Monocytes # 0.3 (0-1.0) k/uL Eosinophils # 0.2 (0-0.7) k/uL Basophils # 0.0 (0-0.2) k/uL Manual Slide Review Performed Hypochromasia Marked Poikilocytosis Slight PT 13.1 H (10.0-12.5) sec INR 1.2 H (<1.2) APTT 24.6 (22.0-30.0) sec Sodium 137 (137-145) mmol/L Potassium 4.5 (3.5-5.1) mmol/L Chloride 107 (98-107) mmol/L Carbon Dioxide 26 (22-30) mmol/L Anion Gap 4 mmol/L BUN 12 (7-17) mg/dL Creatinine 0.68 (0.52-1.04) mg/dL Est GFR (CKD-EPI)AfAm >90 (>60 ml/min/1.73 sqM) Est GFR (CKD-EPI)NonAf >90 (>60 ml/min/1.73 sqM) Glucose 114 H (74-99) mg/dL Plasma Lactic Acid Tristin (0.7-2.0) mmol/L Calcium 8.3 L (8.4-10.2) mg/dL Magnesium 1.6 (1.6-2.3) mg/dL Total Bilirubin 1.6 H (0.2-1.3) mg/dL AST 78 H (14-36) U/L ALT 32 (4-34) U/L Alkaline Phosphatase 145 H (38-126) U/L Troponin I (0.000-0.034) ng/mL NT-Pro-B Natriuret Pep 199 pg/mL Total Protein 6.3 (6.3-8.2) g/dL Albumin 3.1 L (3.5-5.0) g/dL 09/15/24 09/15/24 Range/Units 12:53 12:53 WBC (3.8-10.6) k/uL RBC (3.80-5.40) m/uL Hgb (11.4-16.0) gm/dL Hct (34.0-46.0) % MCV (80.0-100.0) fL MCH (25.0-35.0) pg MCHC (31.0-37.0) g/dL RDW (11.5-15.5) % Plt Count (150-450) k/uL MPV Neutrophils % % Lymphocytes % % Monocytes % % Eosinophils % % Basophils % % Neutrophils # (1.3-7.7) k/uL Lymphocytes # (1.0-4.8) k/uL Monocytes # (0-1.0) k/uL Eosinophils # (0-0.7) k/uL Basophils # (0-0.2) k/uL Manual Slide Review Hypochromasia Poikilocytosis PT (10.0-12.5) sec INR (<1.2) APTT (22.0-30.0) sec Sodium (137-145) mmol/L Potassium (3.5-5.1) mmol/L Chloride (98-107) mmol/L Carbon Dioxide (22-30) mmol/L Anion Gap mmol/L BUN (7-17) mg/dL Creatinine (0.52-1.04) mg/dL Est GFR (CKD-EPI)AfAm (>60 ml/min/1.73 sqM) Est GFR (CKD-EPI)NonAf (>60 ml/min/1.73 sqM) Glucose (74-99) mg/dL Plasma Lactic Acid Tristin 1.6 (0.7-2.0) mmol/L Calcium (8.4-10.2) mg/dL Magnesium (1.6-2.3) mg/dL Total Bilirubin (0.2-1.3) mg/dL AST (14-36) U/L ALT (4-34) U/L Alkaline Phosphatase (38-126) U/L Troponin I 0.020 (0.000-0.034) ng/mL NT-Pro-B Natriuret Pep pg/mL Total Protein (6.3-8.2) g/dL Albumin (3.5-5.0) g/dL - EKG Data -: EKG Interpreted by Me (EKG sinus tachycardia 105 QRS 100 QRS 82 QTc 407) - Radiology Data Radiology results: report reviewed (Chest x-ray is negative for acute disease), image reviewed Disposition Clinical Impression: Chest pain, Anxiety disorder, unspecified, Weakness, Post-operative pain Disposition: HOME SELF-CARE Condition: Good Instructions (If sedation given, give patient instructions): Chest Pain (ED) Is patient prescribed a controlled substance at d/c from ED?: No Referrals: Rajiv Julio MD [Primary Care Provider] - 1-2 days Time of Disposition: 16:00
[2024-09-15 12:56] LABS: Basophils % (A) 0 %; Eosinophils # (A) 0.2 k/uL (0-0.7); Eosinophils % (A) 6 %; HGB 9.8 gm/dL (11.4-16.0); Hypochromasia Marked; Lymphocytes % (A) 27 %; MCH 26.9 pg (25.0-35.0); MCHC 30.7 g/dL (31.0-37.0); MCV 87.7 fL (80.0-100.0); Mean Platelet Volume 14.3; Monocytes # (A) 0.3 k/uL (0-1.0); Monocytes % (A) 8 %; Neutrophils # (A) 2.2 k/uL (1.3-7.7); Neutrophils % (A) 57 %; Platelet Count 120 k/uL (150-450); Poikilocytosis Slight; RBC 3.65 m/uL (3.80-5.40); RDW 15.9 % (11.5-15.5); WBC 3.8 k/uL (3.8-10.6)
[2024-09-15 13:11] LABS: INR 1.2 (<1.2); Partial Thromboplastin Time 24.6 sec (22.0-30.0); Prothrombin Time 13.1 sec (10.0-12.5)
[2024-09-15 13:20] LABS: ALT 32 U/L (4-34); African American GFR (CKD) >90 (>60 ml/min/1.73 sqM); Albumin 3.1 g/dL (3.5-5.0); Anion Gap 4 mmol/L; Blood Urea Nitrogen 12 mg/dL (7-17); Calcium 8.3 mg/dL (8.4-10.2); Carbon Dioxide 26 mmol/L (22-30); Chloride 107 mmol/L (98-107); Glucose 114 mg/dL (74-99); Non-African American GFR(CKD) >90 (>60 ml/min/1.73 sqM); Sodium 137 mmol/L (137-145); Total Bilirubin 1.6 mg/dL (0.2-1.3); Total Protein 6.3 g/dL (6.3-8.2)
--- NOTE | 2024-09-15 13:20 | XR ---
EXAMINATION TYPE: XR chest 2V DATE OF EXAM: 09/15/2024 1:08 PM COMPARISON: Chest radiographs from 09/15/2024 TECHNIQUE: XR chest 2V Frontal and lateral views of the chest. CLINICAL INDICATION:Female, 49 years old with history of sob; FINDINGS: Lungs/Pleura: Right lung is clear. No pneumothorax. No focal consolidation. No right pleural effusion . Stable moderate left pleural effusion. Pulmonary vascularity: Unremarkable. Heart/mediastinum: Cardiomediastinal silhouette is partially obscured due to overlying and adjacent o pacities. Post-CABG changes. Left atrial appendage occlusion device is present. Musculoskeletal: No acute osseous pathology. Midline sternotomy wires are noted and stable. IMPRESSION: 1. Stable moderate left pleural effusion. No sizable pneumothorax. 2. Post-CABG changes redemonstrated. [facility] Elan Moulton, , 09/15/2024 1:17 PM
[2024-09-15 13:22] LABS: AST 78 U/L (14-36); Alkaline Phosphatase 145 U/L (38-126); Magnesium 1.6 mg/dL (1.6-2.3); Potassium 4.5 mmol/L (3.5-5.1)
[2024-09-15 13:28] LABS: NT-Pro-B-Type Natriuretic Pept 199 pg/mL
[2024-09-15] MEDS: IPRATROPIUM-ALBUTEROL 3 ML NEB INHALATION STA (13:41)
[2024-09-15] MEDS: ACETAMINOPHEN TAB 500 MG TAB PO STA (14:30)
[2024-09-15] MEDS: KETOROLAC 15 MG/ML 1 ML VIAL IVP STA (14:33)
[2024-09-15] MEDS ORDERED: HYDROmorphone 1 MG/ML 1 ML SYRINGE IVP PRN (15:43)
[2024-09-15] MEDS: HYDROmorphone 1 MG/ML 1 ML SYRINGE IVP STA (15:52)
[2024-09-15 15:59] VITALS: RESP 16
[2024-09-15 16:28] VITALS: BP 132/67; PULSE 108; TEMP 98.2
== END 2024-09-15 16:32 | disposition home or self-care (01) ==
LOC: EC 11:34
DX: G89.18 Other acute postprocedural pain (principal); R07.9 Chest pain, unspecified; R53.1 Weakness; F41.9 Anxiety disorder, unspecified; Z87.891 Personal history of nicotine dependence; Z90.49 Acquired absence of other specified parts of digestive tract; Z95.1 Presence of aortocoronary bypass graft
CPT/HCPCS: 36415; 94640; 93005; 83880; 80053; 83605; 83735; 84484; 85025; 85610; 85730; 71046; 99285; 96374; 96375; 96361 ×3; J1171; J1885

== ENCOUNTER 2024-09-23 12:24 | Observation (INO) | payer BC ==
--- NOTE | 2024-09-23 13:39 | ED ---
SOB HPI - General Chief Complaint: Shortness of Breath Stated Complaint: SOB Time Seen by Provider: 09/23/24 12:42 Source: patient, RN notes reviewed Mode of arrival: ambulatory Limitations: no limitations - History of Present Illness Initial Comments: Quick [id number] female presents emergency department chief complaint of dyspnea that is worsening over the past 2 days. States she is also experiencing left-sided chest pain with radiation into her back. Endorses a mild cough and runny nose. Denies fevers or chills. - Related Data Home Medications Medication Instructions Recorded Confirmed Albuterol Inhaler [Ventolin Hfa 1 - 2 puff INHALATION RT-QID PRN 09/13/24 09/23/24 Inhaler] Budesonide/Formoterol Fumarate 2 puff PO RT-BID 09/13/24 09/23/24 [Budesonide-Formoterol 80-4.5] Potassium Chloride ER [K-Dur 20] 20 meq PO DAILY 09/13/24 09/23/24 Spironolactone [Aldactone] 12.5 mg PO DAILY 09/13/24 09/23/24 Atorvastatin Calcium [Lipitor] 40 mg PO DAILY 09/15/24 09/23/24 Colchicine [Colcrys] 0.6 mg PO DAILY 09/15/24 09/23/24 Magnesium Oxide [Mag-Ox] 400 mg PO BID 09/15/24 09/23/24 Ondansetron Odt [Zofran Odt] 4 mg PO Q8HR PRN 09/15/24 09/23/24 Gabapentin [Neurontin] 300 mg PO HS 09/23/24 09/23/24 Nicotine 21Mg/24Hr Patch [Habitrol] 1 patch TRANSDERM DAILY 09/23/24 09/23/24 Previous Rx's Medication Instructions Recorded Metoprolol Tartrate [Lopressor] 25 mg PO BID #60 tab 08/13/24 Losartan [Cozaar] 12.5 mg PO DAILY #30 tab 08/19/24 Allergies Allergy/AdvReac Type Severity Reaction Status Date / Time capsaicin Allergy Rash/Hives/ Verified 09/23/24 17:54 Swelling Review of Systems ROS Statement: Those systems with pertinent positive or pertinent negative responses have been documented in the HPI. ROS Other: All systems not noted in ROS Statement are negative. Past Medical History Past Medical History: Coronary Artery Disease (CAD), Diabetes Mellitus, Hypertension, Osteoarthritis (OA), Skin Disorder Additional Past Medical History / Comment(s): KIDNEY STONES, diet controlled diabetic-no longer needs med, no longer needs BP med, seasonal allergies, abscess right breast, left breast hx. of abscess, yeast in skin fold in abd. cabg aug 09 2024. History of Any Multi-Drug Resistant Organisms: None Reported Past Surgical History: Appendectomy, Breast Surgery, Cholecystectomy, Coronary Bypass/CABG, Heart Catheterization With Stent, Orthopedic Surgery, Tubal Ligation Additional Past Surgical History / Comment(s): carpal tunnel RIGHT WRIST, dental, abcess drainage left breast x2 (July 2016, March 2019, Aug 2019); RT breast I&D 05/22/21, 06/05/21; Left ankle surgery. CABG Aug 09 2024, multiple thoracentesis Past Anesthesia/Blood Transfusion Reactions: No Reported Reaction, Family History of Problems w/ Anesthesia Additional Past Anesthesia/Blood Transfusion Reaction / Comment(s): No blood transfusion to date, mom stopped breathing during a surg. & had to be resuscitated Date of Last Stent Placement:: 07/30/24 Past Psychological History: Anxiety, Bipolar, Depression Smoking Status: Former smoker Past Alcohol Use History: None Reported Past Drug Use History: Marijuana - Past Family History Mother Family Medical History: Cancer Additional Family Medical History / Comment(s): CERVICAL CANCER Father Family Medical History: Unable to Obtain Additional Family Medical History / Comment(s): Patient did not know her father General Exam - General Exam Comments Initial Comments: Visual Physical Exam Vital signs reviewed General: Well-appearing, nontoxic, no acute distress. Head: Normocephalic, atraumatic Eyes: PERRLA, EOMI ENT: Airway patent Chest: Nonlabored breathing Skin: No visual rash, normal skin tone Neuro: Alert and oriented 3 Musculoskeletal: No gross abnormalities Limitations: no limitations Course Vital Signs 09/23/24 09/23/24 09/23/24 12:41 17:37 18:20 Temperature 98.5 F 98.3 F Pulse Rate 108 H 94 Pulse Rate [ Left] Respiratory 20 18 26 H Rate Blood Pressure 137/101 147/98 Blood Pressure [Right Arm] O2 Sat by Pulse 99 96 Oximetry 09/23/24 09/23/24 09/23/24 18:25 18:26 20:00 Temperature 98.5 F 98.2 F Pulse Rate 90 Pulse Rate [ 101 H Left] Respiratory 26 H 20 Rate Blood Pressure 145/76 Blood Pressure 161/90 [Right Arm] O2 Sat by Pulse 95 98 100 Oximetry 09/23/24 20:08 Temperature 98.3 F Pulse Rate 98 Pulse Rate [ Left] Respiratory 20 Rate Blood Pressure 156/93 Blood Pressure [Right Arm] O2 Sat by Pulse 99 Oximetry Medical Decision Making - Medical Decision Making I completed the quick note portion of this chart signed Tali Matos PA-C - Lab Data Result diagrams: 09/24/24 05:41 09/24/24 05:41 Lab Results 09/23/24 09/23/24 09/23/24 Range/Units 13:16 13:16 13:16 WBC 4.7 (3.8-10.6) k/uL RBC 4.17 (3.80-5.40) m/uL Hgb 10.7 L (11.4-16.0) gm/dL Hct 35.2 (34.0-46.0) % MCV 84.6 (80.0-100.0) fL MCH 25.8 (25.0-35.0) pg MCHC 30.5 L (31.0-37.0) g/dL RDW 15.6 H (11.5-15.5) % Plt Count 153 (150-450) k/uL MPV 10.6 Neutrophils % 47 % Lymphocytes % 34 % Monocytes % 9 % Eosinophils % 7 % Basophils % 1 % Neutrophils # 2.2 (1.3-7.7) k/uL Lymphocytes # 1.6 (1.0-4.8) k/uL Monocytes # 0.4 (0-1.0) k/uL Eosinophils # 0.3 (0-0.7) k/uL Basophils # 0.0 (0-0.2) k/uL Hypochromasia Marked Poikilocytosis Slight PT 13.0 H (10.0-12.5) sec INR 1.2 H (<1.2) APTT 26.5 (22.0-30.0) sec Sodium 139 (137-145) mmol/L Potassium 3.7 (3.5-5.1) mmol/L Chloride 110 H (98-107) mmol/L Carbon Dioxide 21 L (22-30) mmol/L Anion Gap 8 mmol/L BUN 11 (7-17) mg/dL Creatinine 0.70 (0.52-1.04) mg/dL Est GFR (CKD-EPI)AfAm >90 (>60 ml/min/1.73 sqM) Est GFR (CKD-EPI)NonAf >90 (>60 ml/min/1.73 sqM) Glucose 106 H (74-99) mg/dL Lactic Ac Sepsis Rflx Plasma Lactic Acid Tristin (0.7-2.0) mmol/L Calcium 8.5 (8.4-10.2) mg/dL Total Bilirubin 1.3 (0.2-1.3) mg/dL AST 54 H (14-36) U/L ALT 33 (4-34) U/L Alkaline Phosphatase 183 H (38-126) U/L Troponin I (0.000-0.034) ng/mL NT-Pro-B Natriuret Pep 190 pg/mL Total Protein 6.7 (6.3-8.2) g/dL Albumin 3.2 L (3.5-5.0) g/dL 09/23/24 09/23/24 09/23/24 Range/Units 13:16 13:16 13:57 WBC (3.8-10.6) k/uL RBC (3.80-5.40) m/uL Hgb (11.4-16.0) gm/dL Hct (34.0-46.0) % MCV (80.0-100.0) fL MCH (25.0-35.0) pg MCHC (31.0-37.0) g/dL RDW (11.5-15.5) % Plt Count (150-450) k/uL MPV Neutrophils % % Lymphocytes % % Monocytes % % Eosinophils % % Basophils % % Neutrophils # (1.3-7.7) k/uL Lymphocytes # (1.0-4.8) k/uL Monocytes # (0-1.0) k/uL Eosinophils # (0-0.7) k/uL Basophils # (0-0.2) k/uL Hypochromasia Poikilocytosis PT (10.0-12.5) sec INR (<1.2) APTT (22.0-30.0) sec Sodium (137-145) mmol/L Potassium (3.5-5.1) mmol/L Chloride (98-107) mmol/L Carbon Dioxide (22-30) mmol/L Anion Gap mmol/L BUN (7-17) mg/dL Creatinine (0.52-1.04) mg/dL Est GFR (CKD-EPI)AfAm (>60 ml/min/1.73 sqM) Est GFR (CKD-EPI)NonAf (>60 ml/min/1.73 sqM) Glucose (74-99) mg/dL Lactic Ac Sepsis Rflx Y Plasma Lactic Acid Tristin 2.1 H* (0.7-2.0) mmol/L Calcium (8.4-10.2) mg/dL Total Bilirubin (0.2-1.3) mg/dL AST (14-36) U/L ALT (4-34) U/L Alkaline Phosphatase (38-126) U/L Troponin I <0.012 (0.000-0.034) ng/mL NT-Pro-B Natriuret Pep pg/mL Total Protein (6.3-8.2) g/dL Albumin (3.5-5.0) g/dL Disposition Clinical Impression: Shortness of breath Disposition: ADMITTED IP TO THIS HOSP
[2024-09-23 13:45] LABS: ALT 33 U/L (4-34); AST 54 U/L (14-36); African American GFR (CKD) >90 (>60 ml/min/1.73 sqM); Albumin 3.2 g/dL (3.5-5.0); Alkaline Phosphatase 183 U/L (38-126); Anion Gap 8 mmol/L; Blood Urea Nitrogen 11 mg/dL (7-17); Calcium 8.5 mg/dL (8.4-10.2); Carbon Dioxide 21 mmol/L (22-30); Chloride 110 mmol/L (98-107); Glucose 106 mg/dL (74-99); Non-African American GFR(CKD) >90 (>60 ml/min/1.73 sqM); Potassium 3.7 mmol/L (3.5-5.1); Sodium 139 mmol/L (137-145); Total Bilirubin 1.3 mg/dL (0.2-1.3); Total Protein 6.7 g/dL (6.3-8.2)
[2024-09-23 13:51] LABS: INR 1.2 (<1.2); Partial Thromboplastin Time 26.5 sec (22.0-30.0)
[2024-09-23 13:53] LABS: NT-Pro-B-Type Natriuretic Pept 190 pg/mL
[2024-09-23 14:06] LABS: Basophils % (A) 1 %; Eosinophils # (A) 0.3 k/uL (0-0.7); Eosinophils % (A) 7 %; HCT 35.2 % (34.0-46.0); HGB 10.7 gm/dL (11.4-16.0); Hypochromasia Marked; Lymphocytes # (A) 1.6 k/uL (1.0-4.8); Lymphocytes % (A) 34 %; MCH 25.8 pg (25.0-35.0); MCHC 30.5 g/dL (31.0-37.0); MCV 84.6 fL (80.0-100.0); Mean Platelet Volume 10.6; Monocytes # (A) 0.4 k/uL (0-1.0); Monocytes % (A) 9 %; Neutrophils # (A) 2.2 k/uL (1.3-7.7); Neutrophils % (A) 47 %; Platelet Count 153 k/uL (150-450); Poikilocytosis Slight; RBC 4.17 m/uL (3.80-5.40); RDW 15.6 % (11.5-15.5); WBC 4.7 k/uL (3.8-10.6)
--- NOTE | 2024-09-23 14:52 | XR ---
EXAMINATION TYPE: XR chest 2V DATE OF EXAM: 09/23/2024 2:45 PM COMPARISON: Chest radiographs from 09/15/2024 TECHNIQUE: XR chest 2V Frontal and lateral views of the chest. CLINICAL INDICATION:Female, 49 years old with history of difficulty breathing; FINDINGS: Lungs/Pleura: Right lung is clear. No pneumothorax. Increased moderate to large left pleural effusion . Pulmonary vascularity: Unremarkable. Heart/mediastinum: Cardiomediastinal silhouette is enlarged and stable. Left atrial appendage occlusi on devices present. Musculoskeletal: No acute osseous pathology. Midline sternotomy wires are noted and stable. IMPRESSION: Increasing moderate to large left pleural effusion from prior chest radiograph 09/15/2024 . [facility], , 09/23/2024 2:50 PM
[2024-09-23] MEDS ORDERED: NALOXONE 0.4 MG/ML 1 ML VIAL IV PRN (16:48)
[2024-09-23] MEDS: SODIUM CHLORIDE 0.9% 1,000 ML IV SCH (17:43)
[2024-09-23] MEDS: MORPHINE SULFATE 4 MG/ML SYRINGE IV PRN (18:00)
[2024-09-23] MEDS ORDERED: ALBUTEROL NEBULIZED 2.5 MG/3 ML INHALATION PRN (22:08)
--- NOTE | 2024-09-23 22:27 | P.HPIM ---
History of Present Illness H&P Date: 09/23/24 History of present illness; Yovana Ramos is a 49-year-old female with COPD, hypertension, and history of CABG who presents with chest pain and shortness of breath. Patient states her symptoms began yesterday the shortness of breath and dry cough. She states pain is dull and constant low-grade across the entirety over her left lower chest beneath her ribs. She states that she has had multiple occurrences of similar symptoms in the past from pleural effusions, resulting in thoracentesis. During this time she also attests to mild nausea and some generalized weakness. Patient reports absence of fever, chills, weight loss, palpitations, diaphoresis,vomiting, constipation, diarrhea, abdominal pain, dizziness, headache, and dysuria. Initial lab work done in the ER showed WBC 4.7, hemoglobin 10.7, platelets 153, PT 13.0, INR 1.2, sodium 139, potassium 3.7, chloride 110, bicarb 21, anion gap 8, BUN 11, creatinine 0.70, glucose 106, venous lactic acid 2.1 => 1.8, total bili 1.3, AST 54, ALT 33, ALP 183, troponin negative x 3. Chest x-ray done independently interpreted in the ER showed moderate to large left pleural effusion Patient admitted to internal medicine service. REVIEW OF SYSTEMS: All Systems reviewed, pertinent positives and negatives noted in HPI. All other symptoms are negative. PHYSICAL EXAMINATION: Vitals reviewed GENERAL: No acute distress. Well developed, well nourished, appears significantly older than age HEENT: Pupils are round and equally reacting to light. EOMI. No scleral icterus. Normocephalic, atraumatic. No pharyngeal erythema. No thyromegaly. CARDIOVASCULAR: Surgical chest scar. S1 and S2 present. No murmurs, rubs, or gallops. PULMONARY: Decreased breath sounds on left lower half of lung, normal breath sounds on right side. ABDOMEN: Soft, mild epigastric tenderness, nondistended, normoactive bowel sounds. No palpable organomegaly. MUSCULOSKELETAL: No apparent joint swelling and deformities. EXTREMITIES: No apparent cyanosis, clubbing, or pedal edema. NEUROLOGICAL: The patient is alert and oriented x3, Gross neurological examination did not reveal any focal deficits. SKIN: No apparent rashes. Labs reviewed Imaging reviewed Assessment and plan Yovana Ramos is a 49-year-old female with COPD, hypertension, and history of CABG who presents with chest pain and shortness of breath. # Left-sided pleural effusion #Dyspnea #Chest pain Continue supplemental oxygen as needed Continuous pulse oximeter Continue morphine 4 mg every 4 hour as needed for pain Resume home colchicine Plan for therapeutic thoracentesis Pulmonology consulted for effusion Chronic Medical Conditions # CAD with history of CABG - Resume home metoprolol 25 mg - Resume home Atorvastatin 40 mg #Hypertension Resume home losartan and spironolactone #COPD Resume home Ventolin and Symbicort #Chronic pain Resume home gabapentin F: P.o. E: Replete as needed N: Heart healthy diet E: None DVT ppx: Heparin subq Code status: Full code Anticipated discharge place: Pending clinical course Anticipated discharge time: Pending clinical course Dictation was produced using [employer] dictation software. Please excuse any grammatical, word or spelling errors. Past Medical History Past Medical History: Coronary Artery Disease (CAD), Diabetes Mellitus, Hypertension, Osteoarthritis (OA), Skin Disorder Additional Past Medical History / Comment(s): KIDNEY STONES, diet controlled diabetic-no longer needs med, no longer needs BP med, seasonal allergies, abscess right breast, left breast hx. of abscess, yeast in skin fold in abd. cabg aug 09 2024. History of Any Multi-Drug Resistant Organisms: None Reported Past Surgical History: Appendectomy, Breast Surgery, Cholecystectomy, Coronary Bypass/CABG, Heart Catheterization With Stent, Orthopedic Surgery, Tubal Ligation Additional Past Surgical History / Comment(s): carpal tunnel RIGHT WRIST, dental, abcess drainage left breast x2 (July 2016, March 2019, Aug 2019); RT breast I&D 05/22/21, 06/05/21; Left ankle surgery. CABG Aug 09 2024, multiple thoracentesis Past Anesthesia/Blood Transfusion Reactions: No Reported Reaction, Family History of Problems w/ Anesthesia Additional Past Anesthesia/Blood Transfusion Reaction / Comment(s): No blood transfusion to date, mom stopped breathing during a surg. & had to be resuscitated Date of Last Stent Placement:: 07/30/24 Past Psychological History: Anxiety, Bipolar, Depression Additional Psychological History / Comment(s): Maintained with healthy coping mechanisms; diet and exericse (only suffers from depressive disorder, not the manic type) Smoking Status: Former smoker Past Alcohol Use History: None Reported Additional Past Alcohol Use History / Comment(s): STARTED SMOKING AT AGE 17 QUIT SMOKING March 16, 2021, SMOKED 1PPD Past Drug Use History: Marijuana Additional Drug Use History / Comment(s): COCAINE "YEARS AGO ", smokes maybe 1 joint daily for pain & bipolar - Past Family History Mother Family Medical History: Cancer Additional Family Medical History / Comment(s): CERVICAL CANCER Father Family Medical History: Unable to Obtain Additional Family Medical History / Comment(s): Patient did not know her father Medications and Allergies Home Medications Medication Instructions Recorded Confirmed Type Metoprolol Tartrate [Lopressor] 25 mg PO BID #60 tab 08/13/24 09/23/24 Rx Losartan [Cozaar] 12.5 mg PO DAILY #30 tab 08/19/24 09/23/24 Rx Albuterol Inhaler [Ventolin Hfa 1 - 2 puff INHALATION RT-QID PRN 09/13/24 09/23/24 History Inhaler] Budesonide/Formoterol Fumarate 2 puff PO RT-BID 09/13/24 09/23/24 History [Budesonide-Formoterol 80-4.5] Potassium Chloride ER [K-Dur 20] 20 meq PO DAILY 09/13/24 09/23/24 History Spironolactone [Aldactone] 12.5 mg PO DAILY 09/13/24 09/23/24 History Atorvastatin Calcium [Lipitor] 40 mg PO DAILY 09/15/24 09/23/24 History Colchicine [Colcrys] 0.6 mg PO DAILY 09/15/24 09/23/24 History Magnesium Oxide [Mag-Ox] 400 mg PO BID 09/15/24 09/23/24 History Ondansetron Odt [Zofran Odt] 4 mg PO Q8HR PRN 09/15/24 09/23/24 History Gabapentin [Neurontin] 300 mg PO HS 09/23/24 09/23/24 History Nicotine 21Mg/24Hr Patch [Habitrol] 1 patch TRANSDERM DAILY 09/23/24 09/23/24 History Allergies Allergy/AdvReac Type Severity Reaction Status Date / Time capsaicin Allergy Rash/Hives/ Verified 09/23/24 17:54 Swelling Physical Exam Vitals: Vital Signs Temp Pulse Pulse Resp BP BP Pulse Ox 09/23/24 20:08 98.3 F 98 20 156/93 99 09/23/24 20:00 98.2 F 101 H 20 161/90 100 09/23/24 18:26 98 09/23/24 18:25 98.5 F 90 26 H 145/76 95 09/23/24 18:20 26 H 09/23/24 17:37 98.3 F 94 18 147/98 96 09/23/24 12:41 98.5 F 108 H 20 137/101 99 Intake and Output 09/23/24 09/23/24 09/23/24 06:59 14:59 22:59 Other: Weight 99.337 kg 99.337 kg Results CBC & Chem 7: 09/23/24 13:16 09/23/24 13:16 Labs: Abnormal Lab Results - Last 24 Hours (Table) 09/23/24 09/23/24 09/23/24 Range/Units 13:16 13:16 13:16 Hgb 10.7 L (11.4-16.0) gm/dL MCHC 30.5 L (31.0-37.0) g/dL RDW 15.6 H (11.5-15.5) % PT 13.0 H (10.0-12.5) sec INR 1.2 H (<1.2) Chloride 110 H (98-107) mmol/L Carbon Dioxide 21 L (22-30) mmol/L Glucose 106 H (74-99) mg/dL Plasma Lactic Acid Tristin (0.7-2.0) mmol/L AST 54 H (14-36) U/L Alkaline Phosphatase 183 H (38-126) U/L Albumin 3.2 L (3.5-5.0) g/dL 09/23/24 Range/Units 13:16 Hgb (11.4-16.0) gm/dL MCHC (31.0-37.0) g/dL RDW (11.5-15.5) % PT (10.0-12.5) sec INR (<1.2) Chloride (98-107) mmol/L Carbon Dioxide (22-30) mmol/L Glucose (74-99) mg/dL Plasma Lactic Acid Tristin 2.1 H* (0.7-2.0) mmol/L AST (14-36) U/L Alkaline Phosphatase (38-126) U/L Albumin (3.5-5.0) g/dL Thrombosis Risk Factor Assmnt - Choose All That Apply Any of the Below Risk Factors Present?: Yes Each Factor Represents 1 point: Acute NE, Age 41-60 years, Obesity (BMI >25) Other Risk Factors: No Other congenital or acquired thrombophilia - If yes, enter type in comment: No Thrombosis Risk Factor Assessment Total Risk Factor Score: 3 Thrombosis Risk Factor Assessment Level: Moderate Risk
[2024-09-23] MEDS: ATORVASTATIN 40 MG TAB PO SCH (22:32)
[2024-09-23] MEDS: LOSARTAN 25 MG TAB PO SCH (22:32)
[2024-09-23] MEDS: NICOTINE 21MG/24HR PATCH TRANSDERM SCH (22:32)
[2024-09-23] MEDS: GABAPENTIN 300 MG CAP PO SCH (22:40)
[2024-09-24] MEDS: SYMBICORT 80-4.5 MCG INHALER INHALATION SCH (07:56)
[2024-09-24] MEDS ORDERED: ENOXAPARIN 40 MG/0.4 ML SYRINGE SQ SCH (09:00)
[2024-09-24] MEDS: ONDANSETRON 4 MG/2 ML VIAL IVP PRN (09:01)
[2024-09-24 09:11] LABS: HCT 32.1 % (37.2-46.3); HGB 9.3 g/dL (12.0-15.0); MCH 24.9 pg (27.0-32.0); MCV 85.8 FL (80.0-97.0); Mean Platelet Volume 12.8 FL (9.5-12.2); NRBC Per 100 WBC 0 X 10*3/uL (0.00-0.01); Platelet Count 135 X 10*3/uL (140-440); RBC 3.74 X 10*6/uL (4.10-5.20); RDW 15.7 % (11.5-14.5); WBC 4.48 X 10*3/uL (4.50-10.00)
[2024-09-24 09:12] LABS: Basophils # (A) 0.05 X 10*3/uL (0.00-0.10); Basophils % (A) 1.1 %; Eosinophils # (A) 0.37 X 10*3/uL (0.04-0.35); Eosinophils % (A) 8.3 %; Lymphocytes # (A) 1.72 X 10*3/uL (0.90-5.00); Lymphocytes % (A) 38.4 %; Monocytes # (A) 0.54 X 10*3/uL (0.20-1.00); Monocytes % (A) 12.1 %; Neutrophils # (A) 1.79 X 10*3/uL (1.80-7.70); Neutrophils % (A) 39.9 %
--- NOTE | 2024-09-24 09:27 | US ---
EXAMINATION TYPE: US chest DATE OF EXAM: 09/23/2024 COMPARISON: XR earlier today CLINICAL INDICATION: Female, 49 years old with history of Markings for thoracentesis by pulmonary sta ff; Pleural effusion TECHNIQUE: Grayscale imaging of the chest. Targeted ultrasound of the posterior lower FINDINGS: EXAM MEASUREMENTS: Right Pleural Effusion pocket size: 0 cm Left Pleural Effusion pocket size: 10.1cm Left skin surface to fluid distance: 3.8 cm Left side marked for possible thoracentesis outside the dept. Pulmonologists are able to review the images in the patient?s EMR. IMPRESSIONS: Recurrent large pleural effusion as suspected on most recent chest x-ray is noted. [facility], , 09/23/2024 10:58 PM
[2024-09-24 09:39] LABS: ALT 29 U/L (8-44); AST 43 U/L (13-35); Albumin 2.9 g/dL (3.8-4.9); Alkaline Phosphatase 130 U/L (41-126); BUN/Creat Ratio 13.88 Ratio (12.00-20.00); Blood Urea Nitrogen 11.1 mg/dL (9.0-27.0); Calcium 8.3 mg/dL (8.7-10.3); Chloride 106 mmol/L (96-109); Globulin 2.9 g/dL (1.6-3.3); Glucose 115 mg/dL (70-110); Magnesium 1.7 mg/dL (1.5-2.4); Phosphorus 4.2 mg/dL (2.4-5.1); Potassium 3.7 mmol/L (3.5-5.5); Sodium 137 mmol/L (135-145); Total Protein 5.8 g/dL (6.2-8.2)
[2024-09-24] MEDS: HEPARIN SODIUM,PORCINE 5,000 UNIT/ML 1 ML VIAL SQ SCH (10:41)
[2024-09-24] MEDS: COLCHICINE 0.6 MG EACH PO SCH (10:55)
[2024-09-24] MEDS: MAGNESIUM OXIDE 400 MG TAB PO SCH (10:56)
[2024-09-24] MEDS: POTASSIUM CHLORIDE ER 20 MEQ TAB.ER PO SCH (10:57)
[2024-09-24] MEDS: METOPROLOL TARTRATE 25 MG TAB PO SCH (10:58)
[2024-09-24] MEDS: SPIRONOLACTONE 25 MG TAB PO SCH (11:00)
--- NOTE | 2024-09-24 13:05 | P.CNPUL ---
History of Present Illness Consult date: 09/24/24 Requesting physician: Fran Gerber Reason for consult: dyspnea, pleural effusion, abnormal CXR/CT Chief complaint: Shortness of breath History of present illness: This is a pleasant 49-year-old female patient with a known history of hypertension, diabetes mellitus, coronary artery disease with previous stent placement and subsequent coronary artery bypass grafting back on August 09, 2024. She recovered well and was discharged home on postoperative day #4. Since that time however she has had recurrent left-sided pleural effusions and a right sided pleural effusion. She had undergone a right sided thoracentesis on 08/24/2024. She had undergone a left-sided thoracentesis on 08/22/2024, 08/31/2024, and 09/15/2024. 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 She has been on colchicine without much improvement. She came to the emergency room yesterday September 23, 2024 after being seen by cardiothoracic who noted the significant left-sided pleural effusion and referred her here. ReSound of the left chest reveals a 10.1 cm pocket. No pleural effusion on the right. White count 4.4. Hemoglobin 9.3. Platelets 135. Sodium 137. Potassium 3.7. Bicarb 21. BUN 11. Creatinine 0.8. Glucose 115. Troponins negative x 3. proBNP 190. She is seen today in consultation on the regular medical floor. She is currently sitting up in bed. Awake and alert in no acute distress. She is maintaining good O2 saturations in the 90s on room air. She has been afebrile. Hemodynamically stable. Review of Systems REVIEW OF SYSTEMS: CONSTITUTIONAL: Denies any recent significant weight loss or weight gain. EYES: Denies change in vision. EARS, NOSE, MOUTH, THROAT: Denies headaches, denies sore throat. CARDIOVASCULAR: Denies chest pain, palpitations or syncopal episodes. RESPIRATORY: Positive for shortness of breath, no cough, congestion or hemoptysis. GASTROINTESTINAL: Denies change in appetite, denies abdominal pain GENITOURINARY: Denies hematuria, denies infections. MUSKULOSKELETAL: Denies pain, denies swelling. INTEGUMENTARY: Denies rash, denies eczema. NEUROLOGICAL: Denies recent memory loss, no recent seizure activity. PSYCHIATRIC: Denies anxiety, denies depression. HEMATOLOGIC/LYMPHATIC: Denies anemia, denies enlarged lymph nodes. Past Medical History Past Medical History: Coronary Artery Disease (CAD), Diabetes Mellitus, Hypertension, Osteoarthritis (OA), Skin Disorder Additional Past Medical History / Comment(s): KIDNEY STONES, diet controlled diabetic-no longer needs med, no longer needs BP med, seasonal allergies, abscess right breast, left breast hx. of abscess, yeast in skin fold in abd. cabg aug 09 2024. History of Any Multi-Drug Resistant Organisms: None Reported Past Surgical History: Appendectomy, Breast Surgery, Cholecystectomy, Coronary Bypass/CABG, Heart Catheterization With Stent, Orthopedic Surgery, Tubal Ligation Additional Past Surgical History / Comment(s): carpal tunnel RIGHT WRIST, dental, abcess drainage left breast x2 (July 2016, March 2019, Aug 2019); RT breast I&D 05/22/21, 06/05/21; Left ankle surgery. CABG Aug 09 2024, multiple thoracentesis Past Anesthesia/Blood Transfusion Reactions: No Reported Reaction, Family History of Problems w/ Anesthesia Additional Past Anesthesia/Blood Transfusion Reaction / Comment(s): No blood transfusion to date, mom stopped breathing during a surg. & had to be resuscitated Date of Last Stent Placement:: 07/30/24 Past Psychological History: Anxiety, Bipolar, Depression Smoking Status: Former smoker Past Alcohol Use History: None Reported Past Drug Use History: Marijuana - Past Family History Mother Family Medical History: Cancer Additional Family Medical History / Comment(s): CERVICAL CANCER Father Family Medical History: Unable to Obtain Additional Family Medical History / Comment(s): Patient did not know her father Medications and Allergies Home Medications Medication Instructions Recorded Confirmed Type Metoprolol Tartrate [Lopressor] 25 mg PO BID #60 tab 08/13/24 09/23/24 Rx Losartan [Cozaar] 12.5 mg PO DAILY #30 tab 08/19/24 09/23/24 Rx Albuterol Inhaler [Ventolin Hfa 1 - 2 puff INHALATION RT-QID PRN 09/13/24 History Inhaler] Budesonide/Formoterol Fumarate 2 puff PO RT-BID 09/13/24 09/23/24 History [Budesonide-Formoterol 80-4.5] Potassium Chloride ER [K-Dur 20] 20 meq PO DAILY 09/13/24 09/23/24 History Spironolactone [Aldactone] 12.5 mg PO DAILY 09/13/24 09/23/24 History Atorvastatin Calcium [Lipitor] 40 mg PO DAILY 09/15/24 09/23/24 History Colchicine [Colcrys] 0.6 mg PO DAILY 09/15/24 09/23/24 History Magnesium Oxide [Mag-Ox] 400 mg PO BID 09/15/24 09/23/24 History Ondansetron Odt [Zofran Odt] 4 mg PO Q8HR PRN 09/15/24 09/23/24 History Gabapentin [Neurontin] 300 mg PO HS 09/23/24 09/23/24 History Nicotine 21Mg/24Hr Patch [Habitrol] 1 patch TRANSDERM DAILY 09/23/24 09/23/24 History Allergies Allergy/AdvReac Type Severity Reaction Status Date / Time capsaicin Allergy Rash/Hives/ Verified 09/23/24 17:54 Swelling Physical Exam Vitals: Vital Signs Temp Pulse Pulse Resp BP BP BP 09/24/24 08:00 09/24/24 07:00 97.8 F 91 24 126/80 09/24/24 01:32 101 H 20 09/24/24 01:30 97.9 F 100 20 121/81 09/23/24 20:52 101 H 20 09/23/24 20:08 98.3 F 98 20 156/93 09/23/24 20:00 98.2 F 101 H 20 161/90 09/23/24 18:26 09/23/24 18:25 98.5 F 90 26 H 145/76 09/23/24 18:20 26 H 09/23/24 17:37 98.3 F 94 18 147/98 Pulse Ox 09/24/24 08:00 98 09/24/24 07:00 100 09/24/24 01:32 09/24/24 01:30 97 09/23/24 20:52 09/23/24 20:08 99 09/23/24 20:00 100 09/23/24 18:26 98 09/23/24 18:25 95 09/23/24 18:20 09/23/24 17:37 96 Intake and Output 09/23/24 09/24/24 09/24/24 22:59 06:59 14:59 Intake Total 0 Balance 0 Intake: Oral 0 Other: Voiding Method Toilet Toilet # Voids 1 2 Weight 99.337 kg GENERAL EXAM: Alert, active, pleasant 49-year-old female, on room air, comfo rtable in no apparent distress. HEAD: Normocephalic. EYES: Normal reaction of pupils, equal size. NOSE: Clear with pink turbinates. THROAT: No erythema or exudates. NECK: No masses, no JVD. CHEST: No chest wall deformity. LUNGS: Equal air entry with diminished breath sounds in the left lung base. CVS: S1 and S2 normal with no audible murmur, regular rhythm. ABDOMEN: No hepatosplenomegaly, normal bowel sounds, no guarding or rigidity. SPINE: No scoliosis or deformity SKIN: No rashes CENTRAL NERVOUS SYSTEM: No focal deficits, tone is normal in all 4 extremities. EXTREMITIES: There is no peripheral edema. No clubbing, no cyanosis. Peripheral pulses are intact. Results - Laboratory Findings CBC and BMP: 09/24/24 05:41 09/24/24 05:41 PT/INR, D-dimer PT 13.0 sec (10.0-12.5) H 09/23/24 13:16 INR 1.2 (<1.2) H 09/23/24 13:16 Abnormal lab findings: Abnormal Labs 09/23/24 09/23/24 09/23/24 13:16 13:16 13:16 WBC RBC Hgb 10.7 L Hct MCH MCHC 30.5 L RDW 15.6 H Plt Count MPV Neutrophils # Eosinophils # PT 13.0 H INR 1.2 H Chloride 110 H Carbon Dioxide 21 L Glucose 106 H Plasma Lactic Acid Tristin Calcium AST 54 H Alkaline Phosphatase 183 H Total Protein Albumin 3.2 L Albumin/Globulin Ratio 09/23/24 09/24/24 09/24/24 13:16 05:41 05:41 WBC 4.48 L RBC 3.74 L Hgb 9.3 L Hct 32.1 L MCH 24.9 L MCHC 29.0 L RDW 15.7 H Plt Count 135 L MPV 12.8 H Neutrophils # 1.79 L Eosinophils # 0.37 H PT INR Chloride Carbon Dioxide 21.0 L Glucose 115 H Plasma Lactic Acid Tristin 2.1 H* Calcium 8.3 L AST 43 H Alkaline Phosphatase 130 H Total Protein 5.8 L Albumin 2.9 L Albumin/Globulin Ratio 1.00 L - Diagnostic Findings Chest x-ray: image reviewed Assessment and Plan Assessment: Recurrent left-sided pleural effusion with previous thoracentesis x 3, 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 Maintained on colchicine History of right-sided pleural effusion status postthoracentesis x 1, no fluid currently Coronary artery bypass surgery on August 09, 2024 History of coronary artery disease with stent placement Diabetes mellitus, diet controlled Hypertension Osteoarthritis History of bipolar disorder Former smoker, vaping Marijuana use Plan: The patient was seen and evaluated Chest x-ray, labs and medications reviewed Patient may require Pleurx catheter placement CT services consulted Continue colchicine Continue home medications Heparin for DVT prophylaxis We will continue to follow and make further recommendations based on her clinical status I have personally seen and examined the patient, performed the documentation and the assessment and plan as written. Number of minutes spent on the visit: 20 Dictation was produced using [employer] dictation software. Please excuse any grammatical, word or spelling errors.
[2024-09-24] MEDS: METOCLOPRAMIDE 5 MG/ML 2 ML VIAL IVP PRN (13:55)
[2024-09-24 14:26] VITALS: RESP 16
--- NOTE | 2024-09-24 15:23 | P.PN ---
Subjective Progress Note Date: 09/24/24 Hospital course: Yovana Ramos is a 49-year-old female with COPD, hypertension, and CAD status post CABG on 08/09/2024 who presents with chest pain and shortness of breath. She states that she has had multiple occurrences of similar symptoms in the past from pleural effusions, resulting in thoracentesis. Initial lab work done in the ER showed WBC 4.7, hemoglobin 10.7, platelets 153, PT 13.0, INR 1.2, sodium 139, potassium 3.7, chloride 110, bicarb 21, anion gap 8, BUN 11, creatinine 0.70, glucose 106, venous lactic acid 2.1 => 1.8, total bili 1.3, AST 54, ALT 33, ALP 183, troponin negative x 3. Chest x-ray done independently interpreted in the ER showed moderate to large left pleural effusion. Pulmonology consulted. Cardiothoracic surgery consulted for Pleurx catheter placement. Subjective: Patient seen and examined at the bedside. No acute events overnight. All Systems reviewed and pertinent positives and negatives noted in HPI, all other symptoms are negative Objective: Vital signs reviewed. General: non toxic, no distress, appears at stated age, normal weight Derm: no unusual rashes/lesions, warm Head: atraumatic, normocephalic, symmetric Eyes: EOMI, no lid lag, anicteric sclera, pupils equal round reactive to light ENT: Nose and ears atraumatic Neck: No cervical lymphadenopathy, trachea midline, supple Mouth: no lip lesion, mucus membranes moist Cardiovascular: S1S2 reg, no murmur, positive dorsalis pedis pulse bilateral, no edema Lungs: Decreased breath sounds left mid and lower lung, no rhonchi, no rales, no accessory muscle use Abdominal: soft, nontender to palpation, no guarding Ext: muscle strength 5 out of 5 in all 4 extremities grossly, no gross muscle atrophy, no contractures, Neuro: CN II-XI grossly intact, no gross focal neuro deficits Psych: Alert, oriented, appropriate affect Data reviewed today: Labs: WBC 4.48, hemoglobin 9.3, hematocrit 32.1, MCV 85.8, platelet count 135, sodium 137, potassium 3.7, chloride 106, bicarb 21, BUN 11.1, creatinine 0.8, glucose 215, calcium 8.3, phosphorus 4.2, magnesium 1.7, total bili 1.0, AST 43, ALT 29, alkaline phosphate 130 Images: No new imaging Assessment and Plan: Yovana Ramos is a 49-year-old female with COPD, hypertension, and history of CABG who presents with chest pain and shortness of breath. #left-sided pleural effusion #History of recurrent left-sided pleural effusions #Dyspnea #Chest pain, non ACS Continue supplemental oxygen as needed Continuous pulse oximeter Continue morphine 4 mg every 4 hour as needed for pain, monitor for sedation Resume home colchicine Pulmonology consulted; note reviewed; Cardiothoracic surgery consulted for Pleurx catheter placement Chronic normocytic anemia -No active bleeding Mild pancytopenia, likely in the setting of acute illness -Continue to monitor CBC Mild non-anion gap metabolic acidosis, unclear etiology -Continue to monitor BMP Chronic Medical Conditions # CAD with history of CABG - Resume home metoprolol 25 mg twice daily - Resume home Atorvastatin 40 mg #Hypertension Resume home losartan 12.5 daily and spironolactone 12.5 daily #COPD Resume home Ventolin and Symbicort twice daily #Chronic pain Resume home gabapentin 300 nightly Lactic acidosis, resolved F: P.o. E: Replete as needed N: Heart healthy diet E: None DVT ppx: Heparin subq Code status: Full code Anticipated discharge place: Pending clinical course Anticipated discharge time: Pending clinical course I have seen and evaluated the patient today. Discussed with the resident and agree with the residents finding and plan as documented in the resident's note. Changes highlighted in blue font. Objective - Vital Signs Vital signs: Vital Signs Temp 97.9 F 09/24/24 14:25 Pulse 82 09/24/24 14:25 Resp 16 09/24/24 14:25 BP 91/58 09/24/24 14:25 Pulse Ox 99 09/24/24 14:25 FiO2 Intake & Output 09/23/24 09/24/24 09/24/24 18:59 06:59 18:59 Intake Total 0 Balance 0 Weight 99.337 kg 99.337 kg Intake: Oral 0 Other: Voiding Method Toilet # Voids 2 3 - Labs CBC & Chem 7: 09/24/24 05:41 09/24/24 05:41 Labs: Abnormal Lab Results - Last 24 Hours (Table) 10/25/24 10/25/24 Range/Units 05:41 05:41 WBC 4.48 L (4.50-10.00) X 10*3/uL RBC 3.74 L (4.10-5.20) X 10*6/uL Hgb 9.3 L (12.0-15.0) g/dL Hct 32.1 L (37.2-46.3) % MCH 24.9 L (27.0-32.0) pg MCHC 29.0 L (32.0-37.0) g/dL RDW 15.7 H (11.5-14.5) % Plt Count 135 L (140-440) X 10*3/uL MPV 12.8 H (9.5-12.2) FL Neutrophils # 1.79 L (1.80-7.70) X 10*3/uL Eosinophils # 0.37 H (0.04-0.35) X 10*3/uL Carbon Dioxide 21.0 L (21.6-31.8) mmol/L Glucose 115 H (70-110) mg/dL Calcium 8.3 L (8.7-10.3) mg/dL AST 43 H (13-35) U/L Alkaline Phosphatase 130 H (41-126) U/L Total Protein 5.8 L (6.2-8.2) g/dL Albumin 2.9 L (3.8-4.9) g/dL Albumin/Globulin Ratio 1.00 L (1.60-3.17) Ratio
[2024-09-24] MEDS: ACETAMINOPHEN TAB 325 MG TAB PO PRN (17:09)
--- NOTE | 2024-09-24 17:11 | P.GSCN ---
History of Present Illness Consult date: 09/24/24 Reason for Consult: Known to the cardiothoracic surgery service, underwent coronary artery bypass grafting surgery x 3 vessels on August 09, 2024, has had recurrent left pleural effusions. Requesting physician: Rajiv Julio History of present illness: This is a 49-year-old female patient who recently started following with Dr. Yaniv Lala for her primary care and she follows with Dr. Ogden for her cardiology care. She has a past medical history significant for hypertension, diabetes mellitus type 2, coronary artery disease status post three-vessel off- pump coronary artery bypass grafting surgery in August 2024, left ICA carotid stenosis greater than 70% and right ICA carotid stenosis less than 50% on carotid duplex study, bipolar disorder, history of tobacco use with recent cessation, obesity with a BMI of 38.8 kg/m, history of EtOH abuse with liver cirrhosis and chronically elevated transaminitis. On July 29, 2024 she was hospitalized with unstable angina. During that admission she underwent a heart catheterization on 07/30/24 with a drug-eluting stent placed to the ramus intermedius, and there was notation that Dr. Ogden was unable to get a stent past the ostium of the circumflex which did have a 99% blockage. During that stay she also had a transthoracic echocardiogram demonstrating normal left ventricular systolic function with EF 55 to 60%, mild mitral and tricuspid regurgitation. She was discharged to home on August 01, 2024 and was feeling good for about 24 hours when she developed pain under her left axilla which spread medially. She presented back to the emergency department here at [facility] with endorsement of shortness of breath, nausea, cold sweats, and significant anxiety. Lab work revealed mildly elevated troponins at that time, she was kept inpatient and taken back to the Identification Technician which revealed complex anatomy including trifurcation and severe angulation of takeoff of the circumflex with 120 degree takeoff, severe calcification at the level of the distal main into the circumflex coronary artery. IVUS demonstrated significant left main disease as well as calcified plaque. There was concern for high risk of shifting plaque into the LAD or circumflex or dissection with intervention of the circumflex, therefore consultation was placed to cardiothoracic surgery for revascularization recommendations. She was seen by Dr. Lan and scheduled for urgent off-pump CABG which was completed on August 09, [address] Phong vegas. Her postoperative recovery was uneventful and she was discharged to home with home health care on postoperative day #4. On August 23, 2024 the patient was experiencing some shortness of breath and was found to have a right- sided pleural effusion and subsequently underwent a right thoracentesis. Also since her discharge home she has had recurrent left-sided pleural effusions and has undergone a left-sided thoracentesis on 08/22/2024, 08/31/2024, and 09/15/2024. She presented to Dr. Ortiz's office yesterday for a follow-up exam and was asked to come to the emergency department here at [facility] due to some diminished breath sounds on her left side and complaints of shortness of breath. She denies any recent fever, chills, nausea, vomiting, hemoptysis, hematemesis, diarrhea, constipation, chest pain, chest pressure, swelling to her legs, diaphoresis, headache, presyncope or syncope. A chest x- ray was completed which showed an increasing moderate to large left-sided pleural effusion. For further evaluation she underwent an ultrasound of her chest with markings which showed a 10.1 cm pleural effusion pocket on the left. Due to the patient's recurrent left pleural effusions Dr. Ortiz was consulted for further evaluation and treatment recommendations including left-sided Pleurx catheter placement. Review of Systems A review of systems was completed and was negative except as mentioned in the HPI. Past Medical History Past Medical History: Coronary Artery Disease (CAD), Diabetes Mellitus, Hypertension, Osteoarthritis (OA), Skin Disorder Additional Past Medical History / Comment(s): KIDNEY STONES, diet controlled diabetic-no longer needs med, no longer needs BP med, seasonal allergies, abscess right breast, left breast hx. of abscess, yeast in skin fold in abd. cabg aug 09 2024. Anemia, cirrhosis, chronic transaminitis History of Any Multi-Drug Resistant Organisms: None Reported Past Surgical History: Appendectomy, Breast Surgery, Cholecystectomy, Coronary Bypass/CABG, Heart Catheterization With Stent, Orthopedic Surgery, Tubal Ligation Additional Past Surgical History / Comment(s): carpal tunnel RIGHT WRIST, dental, abcess drainage left breast x2 (July 2016, March 2019, Aug 2019); RT breast I&D 05/22/21, 06/05/21; Left ankle surgery. CABG Aug 09 2024, multiple t horacentesis Past Anesthesia/Blood Transfusion Reactions: No Reported Reaction, Family History of Problems w/ Anesthesia Additional Past Anesthesia/Blood Transfusion Reaction / Comm: No blood transfusion to date, mom stopped breathing during a surg. & had to be resuscitated Date of Last Stent Placement:: 07/30/24 Past Psychological History: Anxiety, Bipolar, Depression Smoking Status: Former smoker Past Alcohol Use History: None Reported Past Drug Use History: Marijuana - Past Family History Mother Family Medical History: Cancer Additional Family Medical History / Comment(s): CERVICAL CANCER Father Family Medical History: Unable to Obtain Additional Family Medical History / Comment(s): Patient did not know her father Medications and Allergies Home Medications Medication Instructions Recorded Confirmed Type Metoprolol Tartrate [Lopressor] 25 mg PO BID #60 tab 08/13/24 09/23/24 Rx Losartan [Cozaar] 12.5 mg PO DAILY #30 tab 08/19/24 09/23/24 Rx Albuterol Inhaler [Ventolin Hfa 1 - 2 puff INHALATION RT-QID PRN 09/13/2409/01 History Inhaler] Budesonide/Formoterol Fumarate 2 puff PO RT-BID 09/13/24 09/23/24 History [Budesonide-Formoterol 80-4.5] Potassium Chloride ER [K-Dur 20] 20 meq PO DAILY 09/13/24 09/23/24 History Spironolactone [Aldactone] 12.5 mg PO DAILY 09/13/24 09/23/24 History Atorvastatin Calcium [Lipitor] 40 mg PO DAILY 09/15/24 09/23/24 History Colchicine [Colcrys] 0.6 mg PO DAILY 09/15/24 09/23/24 History Magnesium Oxide [Mag-Ox] 400 mg PO BID 09/15/24 09/23/24 History Ondansetron Odt [Zofran Odt] 4 mg PO Q8HR PRN 09/15/24 09/23/24 History Gabapentin [Neurontin] 300 mg PO HS 09/23/24 09/23/24 History Nicotine 21Mg/24Hr Patch [Habitrol] 1 patch TRANSDERM DAILY 09/23/24 09/23/24 History Allergies Allergy/AdvReac Type Severity Reaction Status Date / Time capsaicin Allergy Rash/Hives/ Verified 09/23/24 17:54 Swelling Surgical - Exam Vital Signs Temp Pulse Resp BP Pulse Ox 98.5 F 108 H 20 137/101 99 09/23/24 12:41 09/23/24 12:41 09/23/24 12:41 09/23/24 12:41 09/23/24 12:41 - General well developed, well nourished, no distress, no pain, chronically ill, obese - Eyes PERRL, normal ocular movement, no pale, no icteric - ENT Edentulous normal pinna, normal nares, normal mucosa, no hearing loss, no congestion - Neck Neck is supple, no lymphadenopathy. no masses, no bruits, trachea midline, no venous distension - Respiratory Lungs essentially clear throughout, diminished to her left lower lobes. Respirations are symmetrical and nonlabored. No wheezes, rhonchi or crackles. - Cardiovascular Regular rhythm and rate. S1 and S2 present, negative for S3, or gallop, soft systolic murmur. - Abdomen Abdomen is soft, nontender and nondistended. Active bowel sounds present all 4 abdominal quadrants. No guarding or rigidity. No organomegaly appreciated. - Genitourinary Deferred - Rectum Deferred - Integumentary Skin is warm and dry. No clubbing or cyanosis is present. no rash, no growths, no abnormal pigmentation - Neurologic No focal deficits. normal coordination - Musculoskeletal Moves all 4 extremities with equal strength bilateral. normal gait, normal posture - Psychiatric oriented to time, oriented to person, oriented to place, speech is normal, memory intact Results - Labs 09/24/24 05:41 09/24/24 05:41 Abnormal Lab Results - Last 24 Hours (Table) 09/24/24 09/24/24 Range/Units 05:41 05:41 WBC 4.48 L (4.50-10.00) X 10*3/uL RBC 3.74 L (4.10-5.20) X 10*6/uL Hgb 9.3 L (12.0-15.0) g/dL Hct 32.1 L (37.2-46.3) % MCH 24.9 L (27.0-32.0) pg MCHC 29.0 L (32.0-37.0) g/dL RDW 15.7 H (11.5-14.5) % Plt Count 135 L (140-440) X 10*3/uL MPV 12.8 H (9.5-12.2) FL Neutrophils # 1.79 L (1.80-7.70) X 10*3/uL Eosinophils # 0.37 H (0.04-0.35) X 10*3/uL Carbon Dioxide 21.0 L (21.6-31.8) mmol/L Glucose 115 H (70-110) mg/dL Calcium 8.3 L (8.7-10.3) mg/dL AST 43 H (13-35) U/L Alkaline Phosphatase 130 H (41-126) U/L Total Protein 5.8 L (6.2-8.2) g/dL Albumin 2.9 L (3.8-4.9) g/dL Albumin/Globulin Ratio 1.00 L (1.60-3.17) Ratio Diabetes panel 09/24/24 Range/Units 05:41 Sodium 137 (135-145) mmol/L Potassium 3.7 (3.5-5.5) mmol/L Chloride 106 (96-109) mmol/L Carbon Dioxide 21.0 L (21.6-31.8) mmol/L BUN 11.1 (9.0-27.0) mg/dL Creatinine 0.8 (0.6-1.5) mg/dL Glucose 115 H (70-110) mg/dL Calcium 8.3 L (8.7-10.3) mg/dL AST 43 H (13-35) U/L ALT 29 (8-44) U/L Alkaline Phosphatase 130 H (41-126) U/L Total Protein 5.8 L (6.2-8.2) g/dL Albumin 2.9 L (3.8-4.9) g/dL Calcium panel 09/24/24 Range/Units 05:41 Calcium 8.3 L (8.7-10.3) mg/dL Phosphorus 4.2 (2.4-5.1) mg/dL Albumin 2.9 L (3.8-4.9) g/dL Pituitary panel 09/24/24 Range/Units 05:41 Sodium 137 (135-145) mmol/L Potassium 3.7 (3.5-5.5) mmol/L Chloride 106 (96-109) mmol/L Carbon Dioxide 21.0 L (21.6-31.8) mmol/L BUN 11.1 (9.0-27.0) mg/dL Creatinine 0.8 (0.6-1.5) mg/dL Glucose 115 H (70-110) mg/dL Calcium 8.3 L (8.7-10.3) mg/dL Adrenal panel 09/24/24 Range/Units 05:41 Sodium 137 (135-145) mmol/L Potassium 3.7 (3.5-5.5) mmol/L Chloride 106 (96-109) mmol/L Carbon Dioxide 21.0 L (21.6-31.8) mmol/L BUN 11.1 (9.0-27.0) mg/dL Creatinine 0.8 (0.6-1.5) mg/dL Glucose 115 H (70-110) mg/dL Calcium 8.3 L (8.7-10.3) mg/dL Total Bilirubin 1.0 (0.3-1.2) mg/dL AST 43 H (13-35) U/L ALT 29 (8-44) U/L Alkaline Phosphatase 130 H (41-126) U/L Total Protein 5.8 L (6.2-8.2) g/dL Albumin 2.9 L (3.8-4.9) g/dL - Imaging Chest x-ray: report reviewed, image reviewed Assessment and Plan Assessment: Recurrent left-sided pleural effusions with 3 previous thoracentesis, currently on colchicine History of right-sided pleural effusion, status post thoracentesis x 1 Coronary artery disease with history of PCI and off-pump CABG x 3 on August 09, 2024 Diabetes mellitus, diet controlled Hypertension History of EtOH abuse, cirrhosis of the liver, chronically elevated transaminase enzymes History of bipolar disorder Anxiety Recent cessation of smoking Marijuana use Osteoarthritis Plan: The patient was seen and examined at her bedside on the 6 floor observation unit, her is present at her bedside. Her chart and diagnostics were reviewed. Her case was discussed in detail with Dr. Phong Ortiz from car diothoracic surgery. At this time Dr. Ortiz is recommending a left-sided thoracentesis. We will consult cardiology for further treatment recommendations. Continue to monitor daily chest x-rays. We will order an incentive spirometry and encourage use 10 times every hour while awake. The patient is currently on colchicine managed by pulmonary medicine. More recommendations to follow based on patient's clinical course. Thank you Dr. Rogers for this consult and we look forward to working with you on the care of this patient. I have personally seen and examined the patient, performed the documentation and the assessment and plan as written. Number of minutes spent on the visit: 30. MONA Lyon
--- NOTE | 2024-09-24 17:16 | XR ---
EXAMINATION TYPE: XR chest 1V DATE OF EXAM: 09/24/2024 COMPARISON: 09/23/2024 HISTORY: 49 year-old female shortness of breath status post thoracentesis TECHNIQUE: Single frontal view of the chest is obtained. FINDINGS: Significant interval improvement with only trace residual left pleural effusion. Prominent patchy opa city remains left mid to lower lung likely atelectasis. Median sternotomy wires and post-CABG clips. Hazy densities relating to patient body habitus and portable technique. No appreciable pneumothorax. Part of the limits of normal in size. IMPRESSION: Significant interval improvement on the left now with residual trace left effusion. Some prominent patchy atelectasis remains in the left mid and lower lung. [facility], , 09/24/2024 5:14 PM
--- NOTE | 2024-09-24 20:25 | OP ---
OPERATIVE REPORT DATE OF SERVICE : PROCEDURE PERFORMED: Left-sided thoracentesis. PREOPERATIVE DIAGNOSIS: Recurrent left pleural effusion. POSTOPERATIVE DIAGNOSIS: Recurrent left pleural effusion. ANESTHESIA USED: 2 mL of 1% lidocaine. DESCRIPTION OF PROCEDURE: The patient was placed in the sitting upright position, the area of the fluid was localized earlier by ultrasound, and correlated to the 8th intercostal space and tip of the scapula. The area was locally anesthetized, then a 26-gauge needle was inserted to the same site, advanced into the pleural space, fluid was localized. A small incision was made at the same site, a thoracentesis catheter and needle were used, advanced into the pleural space, fluid was localized again. The needle was pulled out of the pleural space and the catheter was advanced over the needle. Freely flowing fluid was removed, roughly 2000 mL of serosanguineous fluid was removed from the left pleural space until completely drained. The patient had significant cough postprocedure, chest x-ray is pending, no immediate complications. MMODL / IJN: [id number] /
[2024-09-25 04:36] VITALS: TEMP 98.4
[2024-09-25 06:44] LABS: Basophils % (A) 1 %; Eosinophils # (A) 0.2 k/uL (0-0.7); Eosinophils % (A) 5 %; HGB 9.4 gm/dL (11.4-16.0); Hypochromasia Marked; Lymphocytes # (A) 1.4 k/uL (1.0-4.8); Lymphocytes % (A) 33 %; MCH 25.8 pg (25.0-35.0); MCHC 30.2 g/dL (31.0-37.0); MCV 85.5 fL (80.0-100.0); Mean Platelet Volume 11.1; Monocytes # (A) 0.3 k/uL (0-1.0); Monocytes % (A) 8 %; Neutrophils # (A) 2.1 k/uL (1.3-7.7); Neutrophils % (A) 51 %; Platelet Count 123 k/uL (150-450); Poikilocytosis Slight; RBC 3.63 m/uL (3.80-5.40); RDW 15.7 % (11.5-15.5); WBC 4.1 k/uL (3.8-10.6)
--- NOTE | 2024-09-25 07:55 | XR ---
EXAMINATION TYPE: XR chest 2V DATE OF EXAM: 09/25/2024 7:31 AM CLINICAL INDICATION: Female, 49 years old with history of Left pleural effusion; LOCATED WITHIN [facility] COMPARISON: Chest radiograph from one day prior. TECHNIQUE: XR chest 2V Frontal and lateral views of the chest. FINDINGS: Lungs/Pleura: Blunting of the left costophrenic angle. There is no evidence of right pleural effusion , focal consolidation, or pneumothorax. Pulmonary vascularity: Unremarkable. Heart/mediastinum: Cardiomediastinal silhouette is unremarkable. Left atrial appendage occlusion noah ce is present. Musculoskeletal: No acute osseous pathology. IMPRESSION: Similar left pleural effusion suggested. [facility], , 09/25/2024 7:53 AM
[2024-09-25 08:26] VITALS: BP 89/58; PULSE 84
--- NOTE | 2024-09-25 11:02 | P.PN ---
Subjective Progress Note Date: 09/25/24 Principal diagnosis: Recurrent left-sided pleural effusion. Past medical history significant for hypertension, diabetes mellitus type 2, coronary artery disease status post three-vessel off-pump coronary artery bypass grafting surgery in August 2024, left ICA carotid stenosis greater than 70% and right ICA carotid stenosis less than 50% on carotid duplex study, bipolar disorder, history of tobacco use with recent cessation, obesity with a BMI of 38.8 kg/m, history of EtOH abuse with liver cirrhosis and chronically elevated transaminitis. On July 29, 2024 she was hospitalized with unstable angina. The patient was seen and examined at her bedside today September 25, 2024 on the 6 floor cardiac observation unit. She is currently sitting up in bed, is awake, alert, oriented x 3 and is in no acute apparent distress. Denies any complaints of pain or shortness of breath at this time. She underwent a left-sided thoracentesis yesterday performed by Dr. Rogers with 2000 milliliters of thin serosanguineous drainage drained. Oxygen saturations are 95% on room air. She reports she has been up ambulating in her room without difficulty. Dr. Ortiz discussed further treatment options regarding her recurrent left-sided pleural effusions and is recommending a thoracoscopic surgery sometime next week with talc pleurodesis. Risks and benefits of the procedure were discussed with the patient, and knowing and understanding the risks the patient wished to proceed with the surgical option. Chest x-ray results reviewed. Objective - Vital Signs Vital signs: Vital Signs Temp 98.4 F 09/25/24 07:00 Pulse 84 09/25/24 07:00 Resp 16 09/25/24 07:00 BP 89/58 09/25/24 07:00 Pulse Ox 95 09/25/24 07:00 FiO2 Intake & Output 09/24/24 09/25/24 09/25/24 18:59 06:59 18:59 Intake Total 118 118 Balance 118 118 Intake: Oral 118 118 Other: Voiding Method Toilet # Voids 3 2 1 - Exam CONSTITUTIONAL: Appears comfortable, cooperative, no acute distress RESPIRATORY: Lungs sounds diminished bilaterally. Respirations even, nonlabored. Currently on room air with oxygen saturation 95%. Strong cough. CARDIOVASCULAR: S1, S2 present. Soft systolic murmur. Regular rate and rhythm, sinus rhythm on telemetry. Palpable peripheral pulses bilaterally. No edema present. No calf pain or tenderness noted. SCDs present. GASTROINTESTINAL: Abdomen soft, nontender, nondistended. Active bowel sounds present 4 quadrants. Tolerating diet. Positive bowel movement. GENITOURINARY: Continues to void clear, yellow urine INTEGUMENTARY: Skin is warm and dry with evidence of good perfusion. NEUROLOGIC: Cranial nerves II through XII intact MUSKULOSKELETAL: Able to move all extremities, strength equal bilaterally, gait normal PSYCHIATRIC: Alert and oriented to person place and time, appropriate affect, intact judgment and insight - Allied health notes Allied health notes reviewed: nursing - Labs CBC & Chem 7: 09/25/24 05:37 09/24/24 05:41 Labs: Abnormal Lab Results - Last 24 Hours (Table) 09/25/24 Range/Units 05:37 RBC 3.63 L (3.80-5.40) m/uL Hgb 9.4 L (11.4-16.0) gm/dL Hct 31.0 L (34.0-46.0) % MCHC 30.2 L (31.0-37.0) g/dL RDW 15.7 H (11.5-15.5) % Plt Count 123 L (150-450) k/uL - Imaging and Cardiology Chest x-ray: report reviewed, image reviewed Assessment and Plan Assessment: Recurrent left-sided pleural effusions with 4 previous thoracentesis, currently on colchicine, status post left thoracentesis yesterday performed by Dr. Julio History of right-sided pleural effusion, status post thoracentesis x 1 Coronary artery disease with history of PCI and off-pump CABG x 3 on August 09, 2024 Diabetes mellitus, diet controlled Hypertension History of EtOH abuse, cirrhosis of the liver, chronically elevated transaminase enzymes History of bipolar disorder Anxiety Recent cessation of smoking Marijuana use Osteoarthritis Plan: Discontinue colchicine as the patient is stating it is giving her severe diarrhea. Start Medrol Dosepak and discharged home with Medrol Dosepak in place. The patient will get a call from Dr. Ortiz's office on Friday, September 27, 2024 to schedule her for a left-sided thoracoscopic procedure with talc pleurodesis. The patient can be discharged home today per the cardiothoracic surgery standpoint, and as mentioned above will be scheduled for surgery sometime next week. Thank you Dr. Julio for doing the left sided thoracentesis. More recommendations to follow based on patient's clinical course. Time with Patient: Less than 30
[2024-09-25] MEDS ORDERED: methylPREDNISolone 4 MG TAB TAPER PO SCH (12:00)
--- NOTE | 2024-09-25 12:01 | P.DS ---
Providers Date of admission: 09/23/24 16:53 Expected date of discharge: 09/25/24 Attending physician: Fran Gerber MD Consults: 09/23/24 16:48 Consult Physician Routine Consulting Provider: Rajiv Julio Consult Reason/Comments: effusion Do you want consulting provider notified?: Yes Consult Physician Routine Consulting Provider: Phong Ortiz Consult Reason/Comments: known Do you want consulting provider notified?: Yes 09/24/24 15:37 Consult Physician Routine Consulting Provider: Jared Ogden Consult Reason/Comments: CHF Do you want consulting provider notified?: Yes Primary care physician: Yaniv Lala MD Hospital Course: Discharge Diagnosis: #left-sided pleural effusion #History of recurrent left-sided pleural effusions #Dyspnea #Chest pain, non ACS #Chronic normocytic anemia #Mild pancytopenia, likely in the setting of acute illness #Mild non-anion gap metabolic acidosis, unclear etiology #CAD with history of CABG #Hypertension #COPD #Chronic pain Hospital Course: Yovana Ramos is a 49-year-old female with COPD, hypertension, and CAD status post CABG on 08/09/2024 who presents with chest pain and shortness of breath. She states that she has had multiple occurrences of similar symptoms in the past from pleural effusions, resulting in thoracentesis. Initial lab work done in the ER showed WBC 4.7, hemoglobin 10.7, platelets 153, PT 13.0, INR 1.2, sodium 139, potassium 3.7, chloride 110, bicarb 21, anion gap 8, BUN 11, creatinine 0.70, glucose 106, venous lactic acid 2.1 => 1.8, total bili 1.3, AST 54, ALT 33, ALP 183, troponin negative x 3. Chest x-ray done independently interpreted in the ER showed moderate to large left pleural effusion. Pulmonology consulted. Cardiothoracic surgery consulted for pleurodesis. Patient symptom improved after therapeutic paracentesis was performed. 2000 mL of serosanguineous drainage was drained. Patient to follow-up with cardiothoracic outpatient for possible left-sided thorascopic procedure with talc pleurodesis. Patient is medically optimized for discharge. Discharge instructions: Patient is advised to follow-up with PCP, firearms model maker and cardiothoracic surgery. Patient is advised to continue with her home medications as directed Patient was provided with instructions on pleural effusion. Prescription sent in for Medrol dose pack to the pharmacy. Vital signs reviewed. Gen: in no apparent distress, resting comfortably in bed Eyes: PERRL, no scleral injection or icterus HENT: normocephalic, atraumatic, good hearing acuity, moist mucous membranes Neck: full range of motion Resp: CTAB, no rales, rhonchi, or wheezes CVS: normal S1 and S2, no murmurs, rubs or gallops, no edema GI: soft, NTTP, ND, no hepatosplenomegaly : no suprapubic tenderness, no CVAT, lemons catheter is/not present MSK: no clubbing, no cyanosis, no noted contractures of extremities Skin: no noted rashes, petechiae; temperature of skin is appropriate Neuro: moving all extremities without signs of weakness, CN II-XII intact Psych: cooperative, euthymic mood, insight and judgment intact A total of 36 minutes of time were spent preparing this complex discharge summary. Patient was discharged on 09/25/2024 at 1114. I have seen and evaluated the patient today. Discussed with the resident and agree with the residents finding and plan as documented in the resident's note. Changes highlighted in blue font. Patient Condition at Discharge: Fair Plan - Discharge Summary Discharge Rx Participant: No New Discharge Prescriptions: New methylPREDNISolone Dose Pack [Medrol Dose Pack] 4 mg PO DIRECTED #1 packet Continue Metoprolol Tartrate [Lopressor] 25 mg PO BID #60 tab Albuterol Inhaler [Ventolin Hfa Inhaler] 1 - 2 puff INHALATION RT-QID PRN PRN Reason: Shortness Of Breath Spironolactone [Aldactone] 12.5 mg PO DAILY Ondansetron Odt [Zofran ODT] 4 mg PO Q8HR PRN PRN Reason: Nausea Magnesium Oxide [Mag-Ox] 400 mg PO BID Nicotine 21Mg/24Hr Patch [Habitrol] 1 patch TRANSDERM DAILY Gabapentin [Neurontin] 300 mg PO HS Losartan [Cozaar] 12.5 mg PO DAILY #30 tab Budesonide/Formoterol Fumarate [Budesonide-Formoterol 80-4.5] 2 puff PO RT- BID Potassium Chloride ER [K-Dur 20] 20 meq PO DAILY Atorvastatin Calcium [Lipitor] 40 mg PO DAILY Discontinued Colchicine [Colcrys] 0.6 mg PO DAILY Discharge Medication List Metoprolol Tartrate [Lopressor] 25 mg PO BID #60 tab 08/13/24 [Rx] Losartan [Cozaar] 12.5 mg PO DAILY #30 tab 08/19/24 [Rx] Albuterol Inhaler [Ventolin Hfa Inhaler] 1 - 2 puff INHALATION RT-QID PRN 09/13/24 [History] Budesonide/Formoterol Fumarate [Budesonide-Formoterol 80-4.5] 2 puff PO RT-BID 09/13/24 [History] Potassium Chloride ER [K-Dur 20] 20 meq PO DAILY 09/13/24 [History] Spironolactone [Aldactone] 12.5 mg PO DAILY 09/13/24 [History] Atorvastatin Calcium [Lipitor] 40 mg PO DAILY 09/15/24 [History] Magnesium Oxide [Mag-Ox] 400 mg PO BID 09/15/24 [History] Ondansetron Odt [Zofran ODT] 4 mg PO Q8HR PRN 09/15/24 [History] Gabapentin [Neurontin] 300 mg PO HS 09/23/24 [History] Nicotine 21Mg/24Hr Patch [Habitrol] 1 patch TRANSDERM DAILY 09/23/24 [History] methylPREDNISolone Dose Pack [Medrol Dose Pack] 4 mg PO DIRECTED #1 packet 09/25/24 [Rx] Follow up Appointment(s)/Referral(s): Rajiv Julio MD [STAFF PHYSICIAN] - 1-2 days Phong Ortiz MD [STAFF PHYSICIAN] - 1 Week Patient Instructions/Handouts: Pleural Effusion (DC) Activity/Diet/Wound Care/Special Instructions: Please follow-up with your PCP, firearms model maker and cardiothoracic surgeon. Discharge Disposition: HOME SELF-CARE
--- NOTE | 2024-09-25 12:13 | P.PN ---
Subjective Progress Note Date: 09/25/24 This is a pleasant 49-year-old female patient with a known history of hypertension, diabetes mellitus, coronary artery disease with previous stent placement and subsequent coronary artery bypass grafting back on August 09, 2024. She recovered well and was discharged home on postoperative day #4. Since that time however she has had recurrent left-sided pleural effusions and a right sided pleural effusion. She had undergone a right sided thoracentesis on 08/24/2024. She had undergone a left-sided thoracentesis on 08/22/2024, 08/31/2024, and 09/15/2024. 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 She has been on colchicine without much improvement. She came to the emergency room yesterday September 23, 2024 after being seen by cardiothoracic who noted the significant left-sided pleural effusion and referred her here. ReSound of the left chest reveals a 10.1 cm pocket. No pleural effusion on the right. White count 4.4. Hemoglobin 9.3. Platelets 135. Sodium 137. Potassium 3.7. Bicarb 21. BUN 11. Creatinine 0.8. Glucose 115. Troponins negative x 3. proBNP 190. She is seen today in consultation on the regular medical floor. She is currently sitting up in bed. Awake and alert in no acute distress. She is maintaining good O2 saturations in the 90s on room air. She has been afebrile. Hemodynamically stable. The patient is seen today September 25 2024 in follow-up on the regular medical floor. She is currently sitting up at the bedside. Awake and alert in no acute distress. She did undergo a left-sided thoracentesis yesterday with 2 L of fluid removed. Follow-up chest x-ray shows improved aeration no evidence of pneumothorax. She is maintaining good O2 saturations in the 90s on room air. White count 4.1. Hemoglobin 9.4. Platelets 123. She is continued on colchicine, Symbicort, albuterol. NicoDerm patch in place. Objective - Vital Signs Vital signs: Vital Signs Temp 98.4 F 09/25/24 07:00 Pulse 84 09/25/24 07:00 Resp 16 09/25/24 07:00 BP 89/58 09/25/24 07:00 Pulse Ox 95 09/25/24 07:00 FiO2 Intake & Output 09/24/24 09/25/24 09/25/24 18:59 06:59 18:59 Intake Total 118 118 Balance 118 118 Intake: Oral 118 118 Other: Voiding Method Toilet # Voids 3 2 1 - Exam GENERAL EXAM: Alert, active, 9-year-old female, on room air, comfortable in no apparent distress. HEAD: Normocephalic. EYES: Normal reaction of pupils, equal size. NOSE: Clear with pink turbinates. THROAT: No erythema or exudates. NECK: No masses, no JVD. CHEST: No chest wall deformity. Sternum stable. LUNGS: Equal air entry with crackles in the left lung base. CVS: S1 and S2 normal with no audible murmur, regular rhythm. ABDOMEN: No hepatosplenomegaly, normal bowel sounds, no guarding or rigidity. SPINE: No scoliosis or deformity SKIN: No rashes CENTRAL NERVOUS SYSTEM: No focal deficits, tone is normal in all 4 extremities. EXTREMITIES: There is no peripheral edema. No clubbing, no cyanosis. Hayde pheral pulses are intact. 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 Maintained on colchicine. Status post thoracentesis 09/24/2026 with additional 2 L of fluid removed. Follow-up chest x-ray reveals no evidence of pneumothorax. History of right-sided pleural effusion status postthoracentesis x 1, no fluid currently Coronary artery bypass surgery on August 09, 2024 History of coronary artery disease with stent placement Diabetes mellitus, diet controlled Hypertension Osteoarthritis History of bipolar disorder Former smoker, vaping Marijuana use Plan: The patient was seen and evaluated Chest x-ray, labs and medications reviewed Cardiothoracic service is following Colchicine discontinued Medrol Dosepak initiated Cleared for discharge Follow-up in our office in 1 week I have personally seen and examined the patient, performed the documentation and the assessment and plan as written. Number of minutes spent on the visit: 10 Dictation was produced using [employer] dictation software. Please excuse any gramm atical, word or spelling errors.
--- NOTE | 2024-09-25 14:10 | P.CRDCN ---
History of Present Illness Consult date: 09/25/24 Consult reason: known to you History of present illness: The patient is a 49-year-old female who recently underwent CABG x 3 in August. Patient has had recurrent pleural effusions requiring multiple thoracentesis, who presented to the hospital with worsening shortness of breath. She was found to have another large pleural effusion which was subsequently drained. 2000 mL of serosanguineous fluid was removed from the left pleural space. Cardiology was consulted for known history. DIAGNOSTICS: Chest x-ray shows moderate to large left pleural effusion Chest ultrasound shows a 10 cm left pleural effusion pocket Lab data: WBC 4.4, hemoglobin 9.3, hematocrit 32.1, platelet 135, sodium 137, potassium 3.7, BUN 11, creatinine 0.8, AST 43, ALT 21, troponins negative x 3, BNP 190 REVIEW OF SYSTEMS: No fever or chills. No cough or expectoration. No diaphoresis. Patient denies headache, dizziness, blurred vision, double vision. Patient denies any stomach discomfort. No nausea, vomiting. No hematochezia. No hematemesis. Denies any black stools or blood in his stools. Denies dysuria or hematuria. No muscle weakness or numbness. No current chest pain or difficulty breathing. PHYSICAL EXAMINATION: This is a 49-year-old female in no apparent distress at the time of my examination. HEENT: Head is atraumatic, normocephalic. Pupils are equal, round. S There is no jugular venous distention. No carotid bruit is heard. CHEST EXAMINATION: Lungs are diminished to auscultation. No chest wall tenderness is noted on palpation or with deep breathing. HEART EXAMINATION: Heart regular rate and rhythm. S1, S2 heard. No murmurs, gallops or rub. ABDOMEN: Soft, nontender. Bowel sounds are heard. No organomegaly noted. EXTREMITIES: 2+ peripheral pulses with no evidence of peripheral edema and no calf tenderness noted. NEUROLOGIC EXAMINATION: Patient is awake, alert and oriented x3. FINAL ASSESSMENT AND PLAN: Chronic pleural effusion, requiring multiple thoracentesis Coronary artery disease with history of PCI and CABG x 3 Diabetes Hypertension PLAN: Resume home cardiac medications Cleared to proceed with outpatient left sided thorascopic procedure with talc pleurodesis Patient may be discharged from the cardiac standpoint I am dictating on behalf of Dr Calvin Lamb's history/physical and assessment/plan. Past Medical History Past Medical History: Coronary Artery Disease (CAD), Diabetes Mellitus, Hypertension, Osteoarthritis (OA), Skin Disorder Additional Past Medical History / Comment(s): KIDNEY STONES, diet controlled diabetic-no longer needs med, no longer needs BP med, seasonal allergies, abscess right breast, left breast hx. of abscess, yeast in skin fold in abd. cabg aug 09 2024. Anemia, cirrhosis, chronic transaminitis History of Any Multi-Drug Resistant Organisms: None Reported Past Surgical History: Appendectomy, Breast Surgery, Cholecystectomy, Coronary Bypass/CABG, Heart Catheterization With Stent, Orthopedic Surgery, Tubal Ligation Additional Past Surgical History / Comment(s): carpal tunnel RIGHT WRIST, dental, abcess drainage left breast x2 (July 2016, March 2019, Aug 2019); RT breast I&D 05/22/21, 06/05/21; Left ankle surgery. CABG Aug 09 2024, multiple thoracentesis Past Anesthesia/Blood Transfusion Reactions: No Reported Reaction, Family History of Problems w/ Anesthesia Additional Past Anesthesia/Blood Transfusion Reaction / Comment(s): No blood transfusion to date, mom stopped breathing during a surg. & had to be resuscitated Date of Last Stent Placement:: 07/30/24 Past Psychological History: Anxiety, Bipolar, Depression Smoking Status: Former smoker Past Alcohol Use History: None Reported Past Drug Use History: Marijuana - Past Family History Mother Family Medical History: Cancer Additional Family Medical History / Comment(s): CERVICAL CANCER Father Family Medical History: Unable to Obtain Additional Family Medical History / Comment(s): Patient did not know her father Medications and Allergies Home Medications Medication Instructions Recorded Confirmed Type Metoprolol Tartrate [Lopressor] 25 mg PO BID #60 tab 08/13/24 09/23/24 Rx Losartan [Cozaar] 12.5 mg PO DAILY #30 tab 08/19/24 09/23/24 Rx Albuterol Inhaler [Ventolin Hfa 1 - 2 puff INHALATION RT-QID PRN 09/13/24 09/23/24 History Inhaler] Budesonide/Formoterol Fumarate 2 puff PO RT-BID 09/13/24 09/23/24 History [Budesonide-Formoterol 80-4.5] Potassium Chloride ER [K-Dur 20] 20 meq PO DAILY 09/13/24 09/23/24 History Spironolactone [Aldactone] 12.5 mg PO DAILY 09/13/24 09/23/24 History Atorvastatin Calcium [Lipitor] 40 mg PO DAILY 09/15/24 09/23/24 History Magnesium Oxide [Mag-Ox] 400 mg PO BID 09/15/24 09/23/24 History Ondansetron Odt [Zofran ODT] 4 mg PO Q8HR PRN 09/15/24 09/23/24 History Gabapentin [Neurontin] 300 mg PO HS 09/23/24 09/23/24 History Nicotine 21Mg/24Hr Patch [Habitrol] 1 patch TRANSDERM DAILY 09/23/24 09/23/24 History methylPREDNISolone Dose Pack 4 mg PO DIRECTED #1 packet 09/25/24 Rx [Medrol Dose Pack] Allergies Allergy/AdvReac Type Severity Reaction Status Date / Time capsaicin Allergy Rash/Hives/ Verified 09/23/24 17:54 Swelling Physical Exam Vitals: Vital Signs Temp Pulse Pulse Pulse Resp BP BP 09/25/24 07:00 98.4 F 84 16 89/58 09/25/24 04:06 98.4 F 94 16 105/67 09/25/24 02:23 73 74 82 16 09/24/24 20:21 73 74 82 16 09/24/24 19:46 98.1 F 78 16 91/55 09/24/24 18:26 74 98/57 09/24/24 16:54 74 97/63 09/24/24 16:48 75 84/58 09/24/24 15:30 72 98/66 09/24/24 15:29 73 81/52 09/24/24 14:25 97.9 F 82 16 91/58 Pulse Ox 09/25/24 07:00 95 09/25/24 04:06 94 L 09/25/24 02:23 09/24/24 20:21 09/24/24 19:46 94 L 09/24/24 18:26 98 09/24/24 16:54 93 L 09/24/24 16:48 92 L 09/24/24 15:30 99 09/24/24 15:29 09/24/24 14:25 99 Intake and Output 09/24/24 09/25/24 09/25/24 22:59 06:59 14:59 Intake Total 118 118 Balance 118 118 Intake: Oral 118 118 Other: Voiding Method Toilet Toilet # Voids 1 2 1 Results 09/25/24 05:37 09/24/24 05:41 CBC 09/25/24 Range/Units 05:37 WBC 4.1 (3.8-10.6) k/uL RBC 3.63 L (3.80-5.40) m/uL Hgb 9.4 L (11.4-16.0) gm/dL Hct 31.0 L (34.0-46.0) % Plt Count 123 L (150-450) k/uL Intake and Output 09/24/24 09/25/24 09/25/24 22:59 06:59 14:59 Intake Total 118 118 Balance 118 118 Intake: Oral 118 118 Other: Voiding Method Toilet Toilet # Voids 1 2 1 09/25/24 05:37 09/24/24 05:41
== END 2024-09-25 12:10 | disposition home or self-care (01) ==
LOC: EC 12:24 → 6NMEDSUR 16:53
PROVIDERS: ADMIT Internal Medicine; ATTEND Internal Medicine
DX: I50.9 Heart failure, unspecified (principal); D61.818 Other pancytopenia; I11.0 Hypertensive heart disease with heart failure; E87.20 Acidosis, unspecified; E11.9 Type 2 diabetes mellitus without complications; J44.9 Chronic obstructive pulmonary disease, unspecified; F31.9 Bipolar disorder, unspecified; F12.959 Cannabis use, unspecified with psychotic disorder, unspecified; K74.60 Unspecified cirrhosis of liver; I08.1 Rheumatic disorders of both mitral and tricuspid valves; I25.10 Atherosclerotic heart disease of native coronary artery without angina pectoris; M19.90 Unspecified osteoarthritis, unspecified site; F41.9 Anxiety disorder, unspecified; G89.29 Other chronic pain; E66.9 Obesity, unspecified; Z68.38 Body mass index [BMI] 38.0-38.9, adult; Z79.899 Other long term (current) drug therapy; Z87.891 Personal history of nicotine dependence; Z88.8 Allergy status to other drugs, medicaments and biological substances; Z95.1 Presence of aortocoronary bypass graft; Z95.5 Presence of coronary angioplasty implant and graft
CPT/HCPCS: 96376 ×3; 96372 ×2; 96375; 96374; 99285; 36415; 94640 ×3; 94760; 93005; 83880; 80053 ×2; 83605; 83735; 84100; 84484; 85025 ×3; 85610; 85730; 71045; 71046 ×2; 76604; G0378 ×3; J2270 ×3; J1644 ×2; J2765; J2405 ×2

== ENCOUNTER 2024-09-29 09:27 | Inpatient (IN) | payer BC ==
[2024-09-28 09:03] VITALS: BMI 37.5
[~2024-09-29 09:27] MED LIST changes: -HYDROmorphone 0.5 MG/0.5 ML SYRINGE IVP PRN; +LIDOCAINE 1% (10MG/ML) FOR IV START INTRADERMA PRN
[2024-09-29 10:22] LABS: Glucose,Whole Blood 104 mg/dL (70-110)
[2024-09-29] MEDS: MIDAZOLAM 2 MG/2 ML VIAL IV PRN (10:28)
[2024-09-29] MEDS: ONDANSETRON 4 MG/2 ML VIAL IVP ONE (10:34)
[2024-09-29] MEDS: DEXAMETHASONE SOD PHOSPHATE 4 MG/ML 1 ML VIAL IV ONE (10:34)
[2024-09-29] MEDS: LACTATED RINGERS 1,000 ML IV SCH (10:35)
[2024-09-29] MEDS: IV FLUID CONTINUATION 1,000 ML IV ONE ×2 (10:35→10:40)
[2024-09-29] MEDS: fentaNYL (PF) 50 MCG/ML 2 ML AMP IVP PRN (10:36)
--- NOTE | 2024-09-29 11:03 | P.ANPRN ---
Procedure Note - Anesthesia - Nerve Block Performed Left Erector Spinae Single Time Out Performed: Yes Date of Procedure: 09/29/24 Procedure Start Time: : Procedure Stop Time: :33 Location of Patient: PreOp Indication: Acute Post-Operative Pain, Analgesia, Requested by Surgeon Sedation Type: Sedate with meaningful contact maintained Preparation: Sterile Prep Position: Sitting Catheter: None Needle Types: Pajunk Needle Gauge: 21 Ultrasound used to visualize needle placement: Yes Ultrasound used to observe medication spread: Yes Injectate: 0.5% Ropivacaine (see comment for volume) (Ropiv 20ml+Decadron 4mg. T6 Needle Level.) Blood Aspirated: No Pain Paresthesia on Injection Noted: No Resistance on Injection: Normal Image Stored and Saved: Yes Events: Uneventful and Well Tolerated
--- NOTE | 2024-09-29 11:04 | P.ANPRN ---
Procedure Note - Anesthesia - Invasive Line Right Arterial Line Time Out Performed: Yes Date of Procedure: 09/29/24 Time of Procedure: 10:34 Location of Patient: PreOp Preparation: Sterile Prep Arterial Line Location: Radial Ultrasound Used: Yes Purpose - Visualization and Identification of Vasculature: Yes Image Stored and Saved: Yes Narrative: Invasive line placement per sterile protocol utilized. AttemptX1.
[2024-09-29] MEDS ORDERED: LABETALOL 5 MG/ML VIAL MDV ONE (12:23)
[2024-09-29] MEDS ORDERED: NEOSTIGMINE 1 MG/ML 10 ML VIAL ONE (12:23)
[2024-09-29] MEDS ORDERED: MIDAZOLAM 2 MG/2 ML VIAL ONE (12:23)
[2024-09-29] MEDS ORDERED: LIDOCAINE 1% INJ 10MG/ML (20 ML MDV) ONE (12:23)
[2024-09-29] MEDS ORDERED: SUCCINYLCHOLINE CHLORIDE 200 MG/10 ML VIAL IV ONE (12:23)
[2024-09-29] MEDS ORDERED: fentaNYL (PF) 50 MCG/ML 2 ML AMP ONE (12:23)
[2024-09-29] MEDS ORDERED: DEXAMETHASONE SOD PHOSPHATE 4 MG/ML 1 ML VIAL ONE (12:23)
[2024-09-29] MEDS ORDERED: GLYCOPYRROLATE 0.2 MG/ML 2 ML VIAL ONE (12:23)
[2024-09-29] MEDS ORDERED: KETAMINE HCL IN 0.9 % NACL 50 MG/5 ML SYRINGE ONE (12:23)
[2024-09-29] MEDS ORDERED: PROPOFOL 10 MG/ML 20 ML VIAL IV ONE (12:23)
[2024-09-29] MEDS ORDERED: ROCURONIUM 10 MG/ML (5 ML VIAL) IV ONE (12:23)
[2024-09-29] MEDS ORDERED: ROPIVACAINE 5 MG/ML 30 ML VIAL ONE (12:23)
[2024-09-29] MEDS: BUPIVACAINE (PF) 0.5% 30 ML VIAL SQ ONE ×2 (13:02→13:21)
[2024-09-29] MEDS: STERILE TALC 3 GM POWDER W/BLOWER KIT INTRAPLEUR ONE (13:03)
[2024-09-29] MEDS: HYDROmorphone 0.5 MG/0.5 ML SYRINGE IVP PRN (13:56)
--- NOTE | 2024-09-29 13:58 | P.OP ---
Date of Procedure: 09/29/24 Preoperative Diagnosis: Recurrent left pleural effusion status post coronary bypass grafting greater than 1 month ago. Postoperative Diagnosis: Same Procedure(s) Performed: Left thoracoscopy, talc pleurodesis, placement of Pleurx catheter Implants: Left Pleurx catheter Anesthesia: EWELINAA Surgeon: Phong Ortiz Estimated Blood Loss (ml): 5 IV fluids (ml): 100 Urine output (ml): 0 Pathology: none sent Condition: stable Disposition: PACU Indications for Procedure: 49-year-old female with known cirrhosis status post coronary bypass grafting greater than 1 month ago. The patient has had recurrent presentations for left pleural effusion with tap x 5. After the most recent tap it was discussed that perhaps she would need something definitive done and it was decided to attempt a talc pleurodesis. Operative Findings: There were minimal adhesions in the left pleural space. There was no injection or inflammatory change. There was no solid collection. There was 1500 cc of serosanguineous fluid present. Description of Procedure: Patient was brought to the operating room and placed supine on the operating table. General anesthesia was induced. She was intubated with a double-lumen endotracheal tube. This was positioned with fiberoptic bronchoscopy. She was turned in the right lateral decubitus position and appropriately positioned. The left chest was sterilely prepped and draped. 2 incisions were made in the sixth interspace in the anterior and posterior axillary line. These were carried into the pleural space. There was a large amount of serosanguineous fluid present. This was suctioned free. The video thoracoscope was introduced. The chest was explored. The remaining fluid was removed. Mechanical pleurodesis was performed using a Bovie pad over the entire chest wall. Following this we insufflated 3 g of sterile talc using a puff insulin Flater. Following this the Pleurx catheter was placed through the most anterior port and tunneled out to the skin in the left upper quadrant. It was positioned appropriately in the chest cavity. It was connected to Pleur-evac to wall suction. The lung was inflated under thoracoscopic visualization. Thoracoscope was removed and the incisions were closed with layers of Vicryl suture. Skin glue and dry sterile dressings were applied. The patient was transferred to recovery postextubation in stable condition.
--- NOTE | 2024-09-29 14:10 | XR ---
EXAMINATION TYPE: XR chest 1V DATE OF EXAM: 09/29/2024 2:02 PM COMPARISON: Chest radiographs from 09/25/2024 TECHNIQUE: XR chest 1V Frontal view of the chest. CLINICAL INDICATION:Female, 49 years old with history of POST PROCEDURE, CHEST TUBE INSERTION; FINDINGS: Lungs/Pleura: Decreased small left pleural effusion. Right lung is clear. No focal consolidation. No sizable pneumothorax. Pulmonary vascularity: Unremarkable. Heart/mediastinum: Cardiomediastinal silhouette is enlarged and stable. Post-CABG changes. Left atri al appendage occlusion devices present. Musculoskeletal: No acute osseous pathology. Midline sternotomy wires are noted and stable. Other findings: None Lines/Tubes: Interval placement of left Pleurx catheter with tip directed towards the medial aspect of the left cash ng apex. IMPRESSION: 1. Interval placement of left Pleurx catheter with tip directed towards the medial aspect of the lef t lung apex. No sizable pneumothorax. 2. Small left pleural effusion. 3. Post-CABG changes. [facility], , 09/29/2024 2:08 PM
[2024-09-29 14:11] LABS: Glucose,Whole Blood 105 mg/dL (70-110)
[2024-09-29] MEDS: ACETAMINOPHEN IV (For NPO) 1,000 MG in EMPTY BAG 1 BAG IVPB STA (15:06)
[2024-09-29] MEDS ORDERED: bisacodyL 10 MG SUPP RECTAL PRN (15:52)
[2024-09-29] MEDS ORDERED: IPRATROPIUM-ALBUTEROL 3 ML NEB IH PRN (15:52)
[2024-09-29] MEDS ORDERED: ONDANSETRON ODT 4 MG TAB PO PRN (15:52)
[2024-09-29] MEDS ORDERED: METOCLOPRAMIDE 5 MG/ML 2 ML VIAL IVP PRN (15:52)
[2024-09-29] MEDS ORDERED: ACETAMINOPHEN TAB 325 MG TAB PO PRN (15:52)
[2024-09-29 16:19] LABS: Glucose,Whole Blood 141 mg/dL (70-110)
[2024-09-29] MEDS: traMADol 50 MG TAB PO PRN (16:37)
[2024-09-29] MEDS: KETOROLAC 15 MG/ML 1 ML VIAL IVP SCH (17:42)
[2024-09-29] MEDS: HEPARIN SODIUM,PORCINE 5,000 UNIT/ML 1 ML VIAL SQ SCH (17:43)
[2024-09-29] MEDS: IPRATROPIUM-ALBUTEROL 3 ML NEB IH SCH (18:18)
[2024-09-29 20:27] LABS: Glucose,Whole Blood 288 mg/dL (70-110)
[2024-09-29] MEDS: GABAPENTIN 300 MG CAP PO SCH (20:47)
[2024-09-29] MEDS: FORMOTEROL FUMARATE 20 MCG/2 ML NEBU INHALATION SCH (21:02)
[2024-09-29] MEDS: METOPROLOL TARTRATE 25 MG TAB PO SCH (23:18)
[2024-09-30] MEDS: HYDROmorphone 0.5 MG/0.5 ML SYRINGE IVP PRN (01:42)
[2024-09-30] MEDS: PANTOPRAZOLE 40 MG TABLET PO SCH (06:42)
[2024-09-30 08:05] LABS: Basophils % (A) 0 %; Eosinophils % (A) 0 %; Hypochromasia Marked; Lymphocytes # (A) 1.3 k/uL (1.0-4.8); Lymphocytes % (A) 8 %; MCH 25.6 pg (25.0-35.0); MCHC 30.6 g/dL (31.0-37.0); MCV 83.7 fL (80.0-100.0); Mean Platelet Volume 11.7; Monocytes % (A) 6 %; Neutrophils % (A) 86 %; Platelet Count 173 k/uL (150-450); Poikilocytosis Slight; RBC 4.29 m/uL (3.80-5.40); RDW 15.6 % (11.5-15.5); WBC 17.5 k/uL (3.8-10.6)
[2024-09-30] MEDS: ATORVASTATIN 40 MG TAB PO SCH (08:16)
[2024-09-30] MEDS: ASPIRIN 325 MG TAB PO SCH (08:16)
[2024-09-30] MEDS: LOSARTAN 25 MG TAB PO SCH (08:16)
--- NOTE | 2024-09-30 08:45 | XR ---
EXAMINATION TYPE: XR chest 2V DATE OF EXAM: 09/30/2024 6:36 AM COMPARISON: 09/29/2024 CLINICAL INDICATION: Female, 49 years old with history of Pleural Catheter placement, , TECHNIQUE: PA and lateral views FINDINGS: Left-sided pleural catheter in place. No appreciable pneumothorax. Median sternotomy wires and post-C ABG clips redemonstrated. Heart upper limits of normal in size. Mild interstitial prominence remains but shows some improvement from prior. No consolidation or pleural effusion. IMPRESSION: Left-sided pleural catheter. No appreciable pneumothorax. There are mild residual interstitial densit ies, improving from prior. [facility], , 09/30/2024 8:42 AM
--- NOTE | 2024-09-30 09:22 | P.PN ---
Subjective Progress Note Date: 09/30/24 Principal diagnosis: Recurrent left pleural effusion status post coronary bypass grafting greater than 1 month ago POD #1 left thoracoscopy, talc pleurodesis, placement of Pleurx catheter The patient was seen and examined with Dr. Ortiz sitting up in recliner on the cardiac stepdown unit in no acute distress. was present. Remains in sinus rhythm, hemodynamically stable. Currently on room air with oxygen saturation in the mid 90s. Patient had some increased pain last night and was given IV Dilaudid, currently denies any significant expected postsurgical pain. Left Pleurx catheter present and attached to atrium to continuous wall suction, minimal drainage overnight, 300 mL since surgery. Labs, chest x-ray reviewed. No other new concerns. Objective - Vital Signs Vital signs: Vital Signs Temp 98.1 F 09/30/24 08:00 Pulse 68 09/30/24 08:00 Resp 18 09/30/24 08:00 BP 104/69 09/30/24 08:00 Pulse Ox 94 L 09/30/24 08:00 FiO2 Intake & Output 09/29/24 09/30/24 09/30/24 18:59 06:59 18:59 Intake Total 1270 138 Output Total 95 440 Balance 1175 -440 138 Weight 96.3 kg 96.3 kg Intake: IV 1150 20 Invasive Line 2 10 Invasive Line 3 10 Oral 120 118 Output: Chest Tube Drainage 30 20 Pleural Catheter 30 20 Drainage 20 Left Chest 20 Urine 400 Pleural Fluid 60 Estimated Blood Loss 5 Other: Voiding Method Toilet Toilet # Voids 1 - Exam CONSTITUTIONAL: Appears comfortable, cooperative, no acute distress RESPIRATORY: Lungs sounds diminished bilaterally. Respirations even, nonlabored. Currently on room air with oxygen saturation 94%. Able to achieve 1500 mL on incentive spirometry. Strong cough. CARDIOVASCULAR: S1, S2 present. Regular rate and rhythm, sinus rhythm on telemetry. Sternum stable. Palpable peripheral pulses bilaterally. No edema present. No calf pain or tenderness noted GASTROINTESTINAL: Abdomen soft, nontender, nondistended. Active bowel sounds present 4 quadrants. Tolerating diet GENITOURINARY: Continues to void INTEGUMENTARY: Skin is warm and dry NEUROLOGIC: Cranial nerves II through XII intact MUSKULOSKELETAL: Able to move all extremities, strength equal bilaterally, gait normal PSYCHIATRIC: Alert and oriented to person place and time, appropriate affect, intact judgment and insight INVASIVE LINES AND TUBES: Left-sided Pleurx catheter present to continuous wall suction, 20 mL serosanguineous drainage overnight, 300 mL since surgery yesterday - Allied health notes Allied health notes reviewed: nursing - Labs CBC & Chem 7: 09/30/24 07:04 Labs: Abnormal Lab Results - Last 24 Hours (Table) 09/29/24 09/29/24 09/30/24 Range/Units 16:16 20:21 07:04 WBC 17.5 H (3.8-10.6) k/uL Hgb 11.0 L (11.4-16.0) gm/dL MCHC 30.6 L (31.0-37.0) g/dL RDW 15.6 H (11.5-15.5) % Neutrophils # 15.0 H (1.3-7.7) k/uL POC Glucose (mg/dL) 141 H 288 H (70-110) mg/dL - Imaging and Cardiology Chest x-ray: report reviewed, image reviewed Assessment and Plan Assessment: Recurrent left pleural effusion status post coronary bypass grafting greater than 1 month ago, status post left thoracoscopy, talc pleurodesis, placement of Pleurx catheter Plan: Suction removed from atrium, will keep Pleurx catheter connected to atrium on waterseal for another 24 hours and monitor output Likely will cap Pleurx tomorrow, will teach Pleurx catheter drainage Home care ordered for Pleurx catheter drainage, teaching Patient likely to be discharged to home with home care tomorrow Pleurx catheter discharge instructions placed on discharge plan
[2024-09-30 20:10] LABS: Glucose,Whole Blood 184 mg/dL (70-110)
[2024-09-30] MEDS: ALBUMIN HUMAN 5% 250 ML in EMPTY BAG 1 BAG IVPB ONE (20:52)
[2024-09-30] MEDS: LACTATED RINGERS 1,000 ML IV SCH (22:42)
[2024-09-30 22:53] LABS: Basophils % (A) 0 %; Eosinophils % (A) 0 %; HCT 28.5 % (34.0-46.0); Hypochromasia Marked; Lymphocytes # (A) 1.3 k/uL (1.0-4.8); Lymphocytes % (A) 11 %; MCH 25.2 pg (25.0-35.0); MCHC 30.4 g/dL (31.0-37.0); MCV 82.9 fL (80.0-100.0); Mean Platelet Volume 10.9; Monocytes # (A) 0.9 k/uL (0-1.0); Monocytes % (A) 7 %; Neutrophils # (A) 9.6 k/uL (1.3-7.7); Neutrophils % (A) 80 %; Platelet Count 126 k/uL (150-450); RBC 3.44 m/uL (3.80-5.40); RDW 15.8 % (11.5-15.5)
[2024-09-30 22:55] LABS: HGB 8.7 gm/dL (11.4-16.0)
--- NOTE | 2024-10-01 07:48 | XR ---
EXAMINATION TYPE: XR chest 2V DATE OF EXAM: 10/01/2024 6:57 AM COMPARISON: 09/30/2024 CLINICAL INDICATION: Female, 49 years old with history of Post Pleurx catheter placement, , TECHNIQUE: PA and lateral views FINDINGS: Left-sided pleural catheter redemonstrated. Trace residual left pleural effusion and some patchy left basilar opacity remains. Heart remains borderline to mildly enlarged. Interstitium continues to show improvement. Median sternotomy wires post-CABG clips. IMPRESSION: Left-sided pleural catheter in place. Residual small left pleural effusion with adjacent atelectasis and/or consolidation. [facility] Elan Moulton, , 10/01/2024 7:46 AM
[2024-10-01 07:57] VITALS: RESP 18
[2024-10-01 10:14] LABS: HCT 28.3 % (34.0-46.0); HGB 8.2 gm/dL (11.4-16.0); Hypochromasia Marked; MCH 24.2 pg (25.0-35.0); MCHC 28.9 g/dL (31.0-37.0); MCV 83.6 fL (80.0-100.0); Poikilocytosis Slight; RBC 3.39 m/uL (3.80-5.40); RDW 15.6 % (11.5-15.5); WBC 7.7 k/uL (3.8-10.6)
[2024-10-01 10:27] LABS: Platelet Count 91 k/uL (150-450)
[2024-10-01 11:11] VITALS: BP 93/59; TEMP 97.6
[2024-10-01 11:20] VITALS: PULSE 80
--- NOTE | 2024-10-01 13:58 | P.DS ---
Providers Date of admission: 09/29/24 09:27 Expected date of discharge: 10/01/24 Attending physician: Phong Ortiz Primary care physician: Yaniv Lala MD Hospital Course: FINAL DIAGNOSIS: Recurrent left pleural effusion status post coronary bypass grafting greater than 1 month ago History of coronary artery disease with previous PCI and off-pump CABG x 3 on August 09, 2024 History of left-sided pleural effusion status post thoracentesis x 4, right- sided pleural effusion status post thoracentesis x 1 Diabetes mellitus, diet controlled Hypertension History of EtOH abuse, cirrhosis of the liver, chronically elevated transami nases History of bipolar disorder Anxiety Recent cessation of smoking Marijuana use Osteoarthritis PRINCIPAL PROCEDURE: Left thoracoscopy, talc pleurodesis, placement of Pleurx catheter HISTORY OF PRESENT ILLNESS: This is a 49-year-old female who is well-known to our service from previous open heart surgery. She was hospitalized in early August for coronary artery disease and underwent coronary artery bypass surgery. Her recovery was uneventful except for recurrent pleural effusions, and she had undergone thoracentesis to the left side 4 times. Due to this reoccurrence it was recommended that patient should undergo left thoracoscopy with talc pleurodesis. The usual perioperative course was discussed in detail with the patient and her family, all risks and benefits were explained, all questions were answered, and consent was obtained to proceed with surgery. She was scheduled for elective surgery at the earliest possible date. HOSPITAL COURSE: The patient was brought to the hospital on 09/29/24, taken to the preoperative area, prepared in the usual fashion, and subsequently taken to the operating room where Dr. Ortiz performed left thoracoscopy with talc pleurodesis and subsequent placement of Pleurx catheter. Upon completion of surgery the patient was extubated and taken to the recovery room for further hemodynamic monitoring. She was eventually admitted to 3 S. cardiac stepdown unit. Her Pleurx catheter had been connected to a chest atrium for drainage. This was discontinued on postoperative day #2 after minimal drainage. Chest x- ray is continued to be stable, the patient's symptomatology improved significantly. Her oxygen was titrated down, she was tolerating oral diet, her pain was controlled, and she was ready to be discharged to home with A home care] on postoperative day #2. She received written and verbal instruction regarding her medications, activity restrictions, signs and symptoms requiring physician notification, and follow-up appointments. Patient Condition at Discharge: Stable Plan - Discharge Summary Discharge Rx Participant: Yes New Discharge Prescriptions: New Aspirin 81 mg PO DAILY tab Acetaminophen Tab [Tylenol] 650 mg PO Q4HR PRN tab PRN Reason: Mild To Moderate Pain (1 - 6) Continue Ondansetron Odt [Zofran ODT] 4 mg PO Q8HR PRN PRN Reason: Nausea Gabapentin [Neurontin] 300 mg PO HS Atorvastatin Calcium [Lipitor] 40 mg PO DAILY Metoprolol Tartrate [Lopressor] 25 mg PO BID #60 tab Discontinued Losartan [Cozaar] 12.5 mg PO DAILY #30 tab Discharge Medication List Atorvastatin Calcium [Lipitor] 40 mg PO DAILY 09/15/24 [History] Ondansetron Odt [Zofran ODT] 4 mg PO Q8HR PRN 09/15/24 [History] Gabapentin [Neurontin] 300 mg PO HS 09/23/24 [History] Acetaminophen Tab [Tylenol] 650 mg PO Q4HR PRN tab 10/01/24 [Rx] Aspirin 81 mg PO DAILY tab 10/01/24 [Rx] Metoprolol Tartrate [Lopressor] 25 mg PO BID #60 tab 10/01/24 [Rx] Follow up Appointment(s)/Referral(s): Rajiv Julio MD [STAFF PHYSICIAN] - As Needed Yaniv Lala MD [Primary Care Provider] - As Needed Jared Ogden DO [STAFF PHYSICIAN] - As Needed Phong Ortiz MD [STAFF PHYSICIAN] - As Needed (Please call office for discontinuation of Pleurx catheter once drainage has been less than 50 mL for 3 times in a row) [facility] Visiting Nurse, [NON-STAFF] - Activity/Diet/Wound Care/Special Instructions: PLEURX discharge instructions: 1. Home Care is ordered, they will obtain new bottles. 2. May shower after 24 hours, no tub baths/hot tubs. 3. Do not drain more than 1 liter or 1000 mL in 24 hours. 4. New drainage bottle needed with each drainage. 5. Drainage frequency dictated by patient symptoms, may be every day, every other day, weekly, or however often the patient is symptomatic. 6. Please notify CAFE MANAGER or office if temperature >101F, excessive pain at insertion site, drainage consistency changes to cloudy or smells bad, catheter falls out, or anything else that concerns you. 7. Contact surgery office with weekly drainage amounts. May fax the amounts. 8. Once drainage is less than 50 mL three times in a row, notify the surgery office for possible removal. Surgery office: , fax Order for pleurex supplies sent to [employer] ([phone]) . Discharge/Stand Alone Forms: Who Do I Call? Discharge Disposition: HOME WITH HOME HEALTH SERVICES
== END 2024-10-01 13:58 | disposition home health service (06) | DRG 165 ==
LOC: 2ORMAIN 09:27 → 3SCARD 14:50
PROVIDERS: ADMIT Thoracic Surgery (Cardiothoracic Vascular Surgery); ATTEND Thoracic Surgery (Cardiothoracic Vascular Surgery)
PROC: 3E0L4GC Introduction of Other Therapeutic Substance into Pleural Cavity, Percutaneous Endoscopic Approach (ICD-10-PCS; 2024-09-29)
PROC: 0W9B30Z Drainage of Left Pleural Cavity with Drainage Device, Percutaneous Approach (ICD-10-PCS; 2024-09-29)
PROC: 0B5P4ZZ Destruction of Left Pleura, Percutaneous Endoscopic Approach (ICD-10-PCS; principal; 2024-09-29 12:00)
DX: J90 Pleural effusion, not elsewhere classified (principal); I25.10 Atherosclerotic heart disease of native coronary artery without angina pectoris; E66.9 Obesity, unspecified; K74.60 Unspecified cirrhosis of liver; I10 Essential (primary) hypertension; K21.9 Gastro-esophageal reflux disease without esophagitis; M19.90 Unspecified osteoarthritis, unspecified site; F41.9 Anxiety disorder, unspecified; E11.9 Type 2 diabetes mellitus without complications; F31.9 Bipolar disorder, unspecified; Z95.1 Presence of aortocoronary bypass graft; Z68.37 Body mass index [BMI] 37.0-37.9, adult; Z79.899 Other long term (current) drug therapy; Z95.5 Presence of coronary angioplasty implant and graft
CPT/HCPCS: 64999; 71045; 71046; 84703; 85025; 85027; 86850; 86900; 86901; 94640; 94760

== ENCOUNTER 2024-10-03 13:51 | Inpatient (IN) | payer BC ==
--- NOTE | 2024-10-03 14:07 | ED ---
General Adult HPI - General Chief complaint: Chest Pain Stated complaint: Chest pain Time Seen by Provider: 10/03/24 14:05 Source: patient Mode of arrival: ambulatory Limitations: no limitations - History of Present Illness Initial comments: Patient presents to the ED with her for evaluation. Patient states that she has had pleuritic, left-sided chest pain radiating to the left side of her neck and her left arm for the past 3 hours or so. Patient states that her symptoms began while at rest. Patient had left thoroscopy, talc pleurodesis and placement of Pleurx catheter performed by Dr. Ortiz last week. Patient states that she has been draining her left pleural catheter daily. Patient states that she has not had very much drainage today. Patient states that her drainage has been serosanguineous in appearance. Patient denies fever or chills, trauma or injury, headache, focal numbness/weakness/neuro deficit, back pain, dyspnea, c ough or cold symptoms, palpitations, dizziness, abdominal pain, nausea/vomiting/diarrhea, bloody or melanotic stool, dysuria or urinary symptoms, decreased urine output, leg or calf swelling or pain, or any other symptoms or complaints. - Related Data Home Medications Medication Instructions Recorded Confirmed Atorvastatin Calcium [Lipitor] 40 mg PO DAILY 09/15/24 09/29/24 Ondansetron Odt [Zofran ODT] 4 mg PO Q8HR PRN 09/15/24 09/29/24 Gabapentin [Neurontin] 300 mg PO HS 09/23/24 09/29/24 Previous Rx's Medication Instructions Recorded Acetaminophen Tab [Tylenol] 650 mg PO Q4HR PRN tab 10/01/24 Aspirin 81 mg PO DAILY tab 10/01/24 Metoprolol Tartrate [Lopressor] 25 mg PO BID #60 tab 10/01/24 Allergies Allergy/AdvReac Type Severity Reaction Status Date / Time capsaicin Allergy Rash/Hives/ Verified 10/03/24 13:54 Swelling Review of Systems ROS Statement: Those systems with pertinent positive or pertinent negative responses have been documented in the HPI. ROS Other: All systems not noted in ROS Statement are negative. Past Medical History Past Medical History: Coronary Artery Disease (CAD), Diabetes Mellitus, GERD/Reflux, Hyperlipidemia, Hypertension, Liver Disease, Osteoarthritis (OA), Pneumonia Additional Past Medical History / Comment(s): Hx pneumonia yrs ago. Hx kidney stones. Diet controlled diabetic-no longer needs meds. No longer needs BP med. Seasonal allergies. Cirrhosis of liver. No menses in 4 1/2 yrs, states body does not make enough Estrogen. History of Any Multi-Drug Resistant Organisms: None Reported Past Surgical History: Appendectomy, Breast Surgery, Cholecystectomy, Coronary Bypass/CABG, Heart Catheterization With Stent, Orthopedic Surgery, Tubal Li gation Additional Past Surgical History / Comment(s): Right wrist carpal tunnel surgery, dental surgery, left breast abcess I&D X3, right breast abcess I&D X2, left ankle surgery, triple CABG 08/09/2024, multiple thoracentesis. Past Anesthesia/Blood Transfusion Reactions: No Reported Reaction, Family History of Problems w/ Anesthesia Additional Past Anesthesia/Blood Transfusion Reaction / Comment(s): No blood transfusion to date. Mom stopped breathing during a surgery and was resuscitated. Date of Last Stent Placement:: 07/30/24 Past Psychological History: Anxiety, Bipolar, Depression Smoking Status: Former smoker Past Alcohol Use History: None Reported Past Drug Use History: Marijuana - Past Family History Mother Family Medical History: Cancer Father History Unknown: Yes Family Medical History: Unable to Obtain General Exam Limitations: no limitations General appearance: alert, in no apparent distress Eye exam: Present: normal appearance ENT exam: Present: mucous membranes moist Neck exam: Present: other (Trachea is in midline) Respiratory exam: Present: normal lung sounds bilaterally, other (Left Pleurx catheter is in place). Absent: respiratory distress, wheezes, rales, rhonchi, stridor, chest wall tenderness Cardiovascular Exam: Present: regular rate, normal rhythm, normal heart sounds, other (Normal radial pulses bilaterally) GI/Abdominal exam: Present: soft. Absent: distended, tenderness, guarding Extremities exam: Present: other (Negative Homans' sign bilaterally). Absent: tenderness, pedal edema, calf tenderness Neurological exam: Present: alert, oriented X3 Psychiatric exam: Present: normal affect Skin exam: Present: warm, dry, normal color Course Vital Signs 10/03/24 10/03/24 10/03/24 13:52 14:29 15:20 Temperature 98.8 F Pulse Rate 109 H 103 H 98 Respiratory 16 18 Rate Blood Pressure 119/77 110/82 107/72 O2 Sat by Pulse 100 100 99 Oximetry - Reevaluation(s) Reevaluation #1: 10/03/24 16:18 Case, H&P and test results/CT findings were discussed with Dr. Aragon (CT surgery). He states that he does not feel that the patient's pericardial effusion is likely related to her recent CT surgery. He does however agree with obtaining an echocardiogram and admitting the patient to the hospital. He also agrees with placing CT surgery on consult. He has no further recommendations at this time. 10/03/24 16:25 Case, H&P, test results, ED management and my discussion with Dr. Aragon as above were discussed with Dr. Napoles. He accepts hospital admission. He agrees with CT surgery and cardiology consultations. He has no further recommendations at this time. 10/03/24 16:29 Patient reports improvement in her pain with ED management, and she denies development of any new symptoms while in the ED. Patient remains alert and breathing comfortably. Patient's tachycardia has now resolved, and she continues to have a normal blood pressure. Patient and are aware of the patient's test results and my discussions as above. Patient agrees with hospital admission at this time. EKG Findings - EKG Comments: EKG Findings:: ED physician interpretation (interpreted by me): Normal sinus rhythm, ventricular rate of 98 bpm, normal NV and QRS intervals, normal QT interval, normal axis, nonspecific T wave abnormality, no ST elevation Medical Decision Making - Medical Decision Making Was pt. sent in by a medical professional or institution (, PA, BORING MACHINE SET UP OPERATOR JIG, urgent care, hospital, or alf...) When possible be specific @ -No Did you speak to anyone other than the patient for history (EMS, parent, family, police, friend...)? What history was obtained from this source @ -No Did you review nursing and triage notes (agree or disagree)? Why? @ -I reviewed and agree with nursing and triage notes Were old charts reviewed (outside hosp., previous admission, EMS record, old EKG, old radiological studies, urgent care reports/EKG's, alf records)? Report findings @ -No old charts were reviewed Differential Diagnosis (chest pain, altered mental status, abdominal pain women, abdominal pain men, vaginal bleeding, weakness, fever, dyspnea, syncope, headache, dizziness, GI bleed, back pain, seizure, CVA, palpatations, mental health, musculoskeletal)? @ -Differential Chest Pain: Stable Angina, Unstable Angina, STEMI, NSTEMI, Aortic Dissection, Pneumothorax, Musculoskeletal, Esophageal Spasm, GERD, pleural effusion, pericardial effusion, tamponade, pulmonary embolism, this is not meant to be an all-inclusive list. EKG interpreted by me (3pts min.). @ -As above X-rays interpreted by me (1pt min.). @ -None done CT interpreted by me (1pt min.). @ -CT angiography chest with IV contrast was reviewed myself and shows a large pericardial effusion. I agree with the radiologist's interpretation as above. U/S interpreted by me (1pt. min.). @ -None done What testing was considered but not performed or refused? (CT, X-rays, U/S, labs)? Why? @ -None What meds were considered but not given or refused? Why? @ -None Did you discuss the management of the patient with other professionals (professionals i.e. , PA, BORING MACHINE SET UP OPERATOR JIG, lab, RT, psych nurse, social work case manager, career services officer, teacher, safety instruction police officer, block and case maker)? Give summary @ -As above. Was smoking cessation discussed for >3mins.? @ -No Was critical care preformed (if so, how long)? @ -Yes, 30 minutes Were there social determinants of health that impacted care today? How? (Homelessness, low income, unemployed, alcoholism, drug addiction, transportation, low edu. Level, literacy, decrease access to med. care, long-term, rehab)? @ -No Was there de-escalation of care discussed even if they declined (Discuss DNR or withdrawal of care, Hospice)? DNR status @ -No What co-morbidities impacted this encounter? (DM, HTN, Smoking, COPD, CAD, Cancer, CVA, ARF, Chemo, Hep., AIDS, mental health diagnosis, sleep apnea, morbid obesity)? @ -CAD Was patient admitted / discharged? Hospital course, mention meds given and route, prescriptions, significant lab abnormalities, going to OR and other pertinent info. @ -Patient's EKG and labs are fairly unremarkable, including a normal troponin level. Patient's CT angiography chest, however, demonstrates a large pericardial effusion. I suspect that this may be the etiology of the patient's pleuritic left-sided chest pain. Will admit the patient to the hospital for cardiac monitoring, serial troponins, echocardiogram, CT surgery/cardiology consultations and further evaluation/management. Patient is hemodynamically stable at this time. Case has been discussed with the on-call CT surgeon, Dr. Aragon. Dr. Napoles has accepted hospital admission. Patient feels comfortable w ith this plan. Undiagnosed new problem with uncertain prognosis? @ -No Drug Therapy requiring intensive monitoring for toxicity (Heparin, Nitro, Insulin, Cardizem)? @ -No Were any procedures done? @ -No Diagnosis/symptom? @ -Chest pain Acute, or Chronic, or Acute on Chronic? @ -Acute Uncomplicated (without systemic symptoms) or Complicated (systemic symptoms)? @ -Default Side effects of treatment? @ -No Exacerbation, Progression, or Severe Exacerbation? @ -No Poses a threat to life or bodily function? How? (Chest pain, [place], [place], pneumonia, PE, COPD, DKA, ARF, appy, cholecystitis, CVA, Diverticulitis, Homicidal, Suicidal, threat to staff... and all critical care pts) @ -Potentially Diagnosis/symptom? @ -Large pericardial effusion Acute, or Chronic, or Acute on Chronic? @ -Default Uncomplicated (without systemic symptoms) or Complicated (systemic symptoms)? @ -Default Side effects of treatment? @ -None Exacerbation, Progression, or Severe Exacerbation] @ -No Poses a threat to life or bodily function? @ -Potentially - Lab Data Result diagrams: 10/03/24 14:28 10/03/24 14:28 Lab Results 10/03/24 10/03/24 10/03/24 Range/Units 14:28 14:28 14:28 WBC 8.4 (3.8-10.6) k/uL RBC 4.32 (3.80-5.40) m/uL Hgb 10.6 L (11.4-16.0) gm/dL Hct 35.5 (34.0-46.0) % MCV 82.2 (80.0-100.0) fL MCH 24.6 L (25.0-35.0) pg MCHC 30.0 L (31.0-37.0) g/dL RDW 16.1 H (11.5-15.5) % Plt Count 185 D (150-450) k/uL MPV 11.2 Neutrophils % 55 % Lymphocytes % 24 % Monocytes % 10 % Eosinophils % 9 % Basophils % 0 % Neutrophils # 4.7 (1.3-7.7) k/uL Lymphocytes # 2.0 (1.0-4.8) k/uL Monocytes # 0.8 (0-1.0) k/uL Eosinophils # 0.7 (0-0.7) k/uL Basophils # 0.0 (0-0.2) k/uL Hypochromasia Marked Anisocytosis Slight PT 12.2 (10.0-12.5) sec INR 1.1 (<1.2) APTT 27.4 (22.0-30.0) sec Sodium 136 L (137-145) mmol/L Potassium 3.7 (3.5-5.1) mmol/L Chloride 103 (98-107) mmol/L Carbon Dioxide 26 (22-30) mmol/L Anion Gap 7 mmol/L BUN 18 H (7-17) mg/dL Creatinine 0.70 (0.52-1.04) mg/dL Est GFR (CKD-EPI)AfAm >90 (>60 ml/min/1.73 sqM) Est GFR (CKD-EPI)NonAf >90 (>60 ml/min/1.73 sqM) Glucose 135 H (74-99) mg/dL Calcium 8.3 L (8.4-10.2) mg/dL Magnesium 1.7 (1.6-2.3) mg/dL Total Bilirubin 1.4 H (0.2-1.3) mg/dL AST 57 H (14-36) U/L ALT 28 (4-34) U/L Alkaline Phosphatase 146 H (38-126) U/L Troponin I (0.000-0.034) ng/mL NT-Pro-B Natriuret Pep 730 pg/mL Total Protein 6.9 (6.3-8.2) g/dL Albumin 3.4 L (3.5-5.0) g/dL 10/03/24 Range/Units 14:28 WBC (3.8-10.6) k/uL RBC (3.80-5.40) m/uL Hgb (11.4-16.0) gm/dL Hct (34.0-46.0) % MCV (80.0-100.0) fL MCH (25.0-35.0) pg MCHC (31.0-37.0) g/dL RDW (11.5-15.5) % Plt Count (150-450) k/uL MPV Neutrophils % % Lymphocytes % % Monocytes % % Eosinophils % % Basophils % % Neutrophils # (1.3-7.7) k/uL Lymphocytes # (1.0-4.8) k/uL Monocytes # (0-1.0) k/uL Eosinophils # (0-0.7) k/uL Basophils # (0-0.2) k/uL Hypochromasia Anisocytosis PT (10.0-12.5) sec INR (<1.2) APTT (22.0-30.0) sec Sodium (137-145) mmol/L Potassium (3.5-5.1) mmol/L Chloride (98-107) mmol/L Carbon Dioxide (22-30) mmol/L Anion Gap mmol/L BUN (7-17) mg/dL Creatinine (0.52-1.04) mg/dL Est GFR (CKD-EPI)AfAm (>60 ml/min/1.73 sqM) Est GFR (CKD-EPI)NonAf (>60 ml/min/1.73 sqM) Glucose (74-99) mg/dL Calcium (8.4-10.2) mg/dL Magnesium (1.6-2.3) mg/dL Total Bilirubin (0.2-1.3) mg/dL AST (14-36) U/L ALT (4-34) U/L Alkaline Phosphatase (38-126) U/L Troponin I <0.012 (0.000-0.034) ng/mL NT-Pro-B Natriuret Pep pg/mL Total Protein (6.3-8.2) g/dL Albumin (3.5-5.0) g/dL - Radiology Data CT angiography chest with IV contrast: 1. Large pericardial effusion. Report was called to the emergency room physician at the time of the interpretation by Dr. Wray. 2. No acute pulmonary embolism. 3. Small pleural effusions with adjacent compressive atelectasis. 4. Left sided chest tube position. No pneumothorax is evident. Critical Care Time Critical Care Time: Yes Total Critical Care Time: 30 Disposition Clinical Impression: Chest pain, Pericardial effusion Disposition: ADMITTED IP TO THIS HOSP Condition: Stable Is patient prescribed a controlled substance at d/c from ED?: No Referrals: Yaniv Lala MD [Primary Care Provider] - 1-2 days Time of Disposition: 16:26
[2024-10-03] MEDS: SODIUM CHLORIDE 0.9% 500 ML 500 ML IV STA (14:37)
[2024-10-03] MEDS: MORPHINE SULFATE 4 MG/ML SYRINGE IV STA (14:37)
[2024-10-03 14:41] LABS: Anisocytosis Slight; Basophils % (A) 0 %; Eosinophils # (A) 0.7 k/uL (0-0.7); Eosinophils % (A) 9 %; HCT 35.5 % (34.0-46.0); HGB 10.6 gm/dL (11.4-16.0); Hypochromasia Marked; Lymphocytes % (A) 24 %; MCH 24.6 pg (25.0-35.0); MCV 82.2 fL (80.0-100.0); Mean Platelet Volume 11.2; Monocytes # (A) 0.8 k/uL (0-1.0); Monocytes % (A) 10 %; Neutrophils # (A) 4.7 k/uL (1.3-7.7); Neutrophils % (A) 55 %; RBC 4.32 m/uL (3.80-5.40); RDW 16.1 % (11.5-15.5); WBC 8.4 k/uL (3.8-10.6)
[2024-10-03 14:55] LABS: ALT 28 U/L (4-34); AST 57 U/L (14-36); African American GFR (CKD) >90 (>60 ml/min/1.73 sqM); Albumin 3.4 g/dL (3.5-5.0); Alkaline Phosphatase 146 U/L (38-126); Anion Gap 7 mmol/L; Blood Urea Nitrogen 18 mg/dL (7-17); Calcium 8.3 mg/dL (8.4-10.2); Carbon Dioxide 26 mmol/L (22-30); Chloride 103 mmol/L (98-107); Glucose 135 mg/dL (74-99); INR 1.1 (<1.2); Magnesium 1.7 mg/dL (1.6-2.3); Non-African American GFR(CKD) >90 (>60 ml/min/1.73 sqM); Partial Thromboplastin Time 27.4 sec (22.0-30.0); Potassium 3.7 mmol/L (3.5-5.1); Prothrombin Time 12.2 sec (10.0-12.5); Sodium 136 mmol/L (137-145); Total Bilirubin 1.4 mg/dL (0.2-1.3); Total Protein 6.9 g/dL (6.3-8.2)
[2024-10-03 15:03] LABS: NT-Pro-B-Type Natriuretic Pept 730 pg/mL
[2024-10-03 15:09] LABS: Platelet Count 185 k/uL (150-450)
--- NOTE | 2024-10-03 16:02 | CT ---
CTA CHEST EXAMINATION TYPE: CT chest angio for PE DATE OF EXAM: 10/03/2024 INDICATION: chest pain CT DLP: 433.4 mGycm, Automated exposure control for dose reduction was used. CONTRAST: Patient injected with 100 mL of Isovue 370. COMPARISON: Chest x-ray 10/01/2024 TECHNIQUE: CT of the chest is performed on a spiral scan at 2 mm thick sections. Study is performed with intravenous contrast timed for evaluation for pulmonary embolism. This will limit additional po rtions of the evaluation. 3-D MIP images reconstructed by the technologist are reviewed on the compu ter in the coronal and sagittal planes. FINDINGS: No persistent filling defects are evident to suggest an acute pulmonary embolism. There is a large pericardial effusion. This extends to the superior anterior mediastinal region. There is a small left very minimal right pleural effusions. Bilateral adjacent compressive atelectasi s is present. Chest tube is present on the left and extends along the posterior region towards the le ft apex medially. Some fluid is within the major fissure on the left. No suspicious lung masses or i nfiltrates otherwise evident. No mediastinal or hilar adenopathy enlarged by CT criteria is evident. The ascending aorta diameter at the level of the main pulmonary artery is 2.6 cm. The main pulmonary artery diameter at the bifurcation is 2.[address] sections were through the upper abdomen. Minimal fluid is adjacent to the liver. Gallblad meg is surgically absent. A 0.5 cm renal stone upper pole right kidney. IMPRESSION: 1. Large pericardial effusion. Report was called to the emergency room physician at the time of inter pretation by Dr. Wray. 2. No acute pulmonary embolism. 3. Small pleural effusions with adjacent compressive atelectasis. 4. Left-sided chest tube position. No pneumothorax is evident [facility], Workstation: [email or web address], 10/03/2024 4:00 PM
[2024-10-03] MEDS ORDERED: NALOXONE 0.4 MG/ML 1 ML VIAL IV PRN (16:26)
[2024-10-03] MEDS: ONDANSETRON 4 MG/2 ML VIAL IVP STA (17:21)
[2024-10-03] MEDS: MORPHINE SULFATE 4 MG/ML SYRINGE IVP STA (17:27)
[2024-10-03] MEDS: MORPHINE SULFATE 4 MG/ML SYRINGE IV PRN (21:28)
[2024-10-03] MEDS: ONDANSETRON 4 MG/2 ML VIAL IVP PRN (21:34)
[2024-10-04] MEDS ORDERED: LOSARTAN 25 MG TAB PO PRN (06:29)
[2024-10-04 06:57] LABS: Basophils % (A) 0 %; Eosinophils # (A) 0.7 k/uL (0-0.7); Eosinophils % (A) 9 %; HCT 33.4 % (34.0-46.0); HGB 10.2 gm/dL (11.4-16.0); Hypochromasia Marked; Lymphocytes # (A) 1.7 k/uL (1.0-4.8); Lymphocytes % (A) 22 %; MCH 25.1 pg (25.0-35.0); MCHC 30.6 g/dL (31.0-37.0); Mean Platelet Volume 10.4; Monocytes # (A) 0.7 k/uL (0-1.0); Monocytes % (A) 9 %; Neutrophils # (A) 4.5 k/uL (1.3-7.7); Neutrophils % (A) 58 %; Platelet Count 188 k/uL (150-450); RBC 4.07 m/uL (3.80-5.40); RDW 15.8 % (11.5-15.5); WBC 7.8 k/uL (3.8-10.6)
[2024-10-04 07:09] LABS: INR 1.1 (<1.2); Partial Thromboplastin Time 28.3 sec (22.0-30.0); Prothrombin Time 12.2 sec (10.0-12.5)
[2024-10-04 07:14] LABS: ALT 24 U/L (4-34); AST 36 U/L (14-36); African American GFR (CKD) >90 (>60 ml/min/1.73 sqM); Albumin 2.8 g/dL (3.5-5.0); Alkaline Phosphatase 124 U/L (38-126); Anion Gap 3 mmol/L; Blood Urea Nitrogen 16 mg/dL (7-17); Calcium 8.1 mg/dL (8.4-10.2); Carbon Dioxide 27 mmol/L (22-30); Chloride 102 mmol/L (98-107); Glucose 147 mg/dL (74-99); Non-African American GFR(CKD) >90 (>60 ml/min/1.73 sqM); Sodium 132 mmol/L (137-145); Total Bilirubin 1.7 mg/dL (0.2-1.3); Total Protein 5.9 g/dL (6.3-8.2)
[2024-10-04] MEDS: HYDROmorphone 0.5 MG/0.5 ML SYRINGE IVP PRN (07:28)
--- NOTE | 2024-10-04 07:52 | P.GSCN ---
History of Present Illness Consult date: 10/04/24 Reason for Consult: Pericardial effusion Requesting physician: Juaquin Echeverria History of present illness: This is a 49-year-old female who is well-known to our service from previous open heart surgery. She follows outpatient with Dr. Lala for internal medicine, Dr. Ogden for cardiology and Dr. Rogers for pulmonology. She has a previous medical history of coronary artery disease with previous PCI and off-pump CABG x 3 on August 09, 2024, left-sided pleural effusion status post thoracentesis x 4, right-sided pleural effusion status post thoracentesis x 1, status post left- sided VATS with talc pleurodesis and placement of left-sided Pleurx catheter 09/29/2024, diabetes mellitus, hypertension, EtOH abuse, cirrhosis of the liver, bipolar disorder, anxiety, previous tobacco dependence, marijuana use, os teoarthritis. She was hospitalized in early August for coronary artery disease and underwent coronary artery bypass surgery. Her recovery was uneventful except for recurrent pleural effusions, with left-sided thoracentesis x 4, 1 admission for abdominal pain with EGD negative, and an admission at [facility] for COVID. Due left pleural effusion reoccurrence it was recommended that patient should undergo left thoracoscopy with talc pleurodesis which was completed last week and she was discharged to home on postoperative day #2. She has been at home for the last several days feeling much better, her left Pleurx catheter was drained on Friday for 250 mL, drained yesterday for approximately 50 mL. Apparently yesterday morning she woke up with significant left neck and shoulder pain which she attributed to sleeping wrong. Unfortunately over the course of the morning the pain became more significant spreading across her chest and was unrelieved so she presented to [facility] emergency room for evaluation and treatment. EKG was completed demonstrating sinus rhythm ischemic changes. Lab work revealed hemoglobin 10.6, creatinine 0.7, magnesium 1.7, potassium 3.7, AST 57, BNP 730, and troponins were negative x 3. CTA of the chest was completed demonstrating large pericardial effusion, no acute pulmonary embolism, small pleural effusions with adjacent compressive atelectasis, and left-sided Pleurx catheter in good position without pneumothorax apparent. Due to finding of pericardial effusion Dr. Aragon was contacted by the emergency room physicians for recommendations. Review of Systems Review of systems was completed and was negative except as noted - Cardiovascular Reports as per HPI, Reports chest pain Past Medical History Past Medical History: Coronary Artery Disease (CAD), Diabetes Mellitus, GERD/Reflux, Hyperlipidemia, Hypertension, Liver Disease, Osteoarthritis (OA), Pneumonia Additional Past Medical History / Comment(s): Hx pneumonia yrs ago. Hx kidney stones. Diet controlled diabetic-no longer needs meds. Seasonal allergies. Cirrhosis of liver. No menses in 4 1/2 yrs, states body does not make enough Estrogen. Recurrent pleural effusions. COVID in August 2024 at [facility] History of Any Multi-Drug Resistant Organisms: None Reported Past Surgical History: Appendectomy, Breast Surgery, Cholecystectomy, Coronary Bypass/CABG, Heart Catheterization With Stent, Orthopedic Surgery, Tubal Ligation Additional Past Surgical History / Comment(s): Right wrist carpal tunnel surgery, dental surgery- teeth removed, left breast abcess I&D X3, right breast abcess I&D X2, left ankle surgery, triple CABG 08/09/2024, multiple thoracentesis. Cardiac sents x2 and bilateral carotid stents. Left VATS with talc pleurodesis and placement of left-sided pleurx catheter 09/29/[address] Ortiz Past Anesthesia/Blood Transfusion Reactions: No Reported Reaction, Family History of Problems w/ Anesthesia Additional Past Anesthesia/Blood Transfusion Reaction / Comm: No blood transfus ion to date. Mom stopped breathing during a surgery and was resuscitated. Date of Last Stent Placement:: 07/30/24 Past Psychological History: Anxiety, Bipolar, Depression Additional Psychological History / Comment(s): Maintained with healthy coping mechanisms; diet and exericse (only suffers from depressive disorder, not the manic type). Smoking Status: Former smoker Past Alcohol Use History: None Reported Additional Past Alcohol Use History / Comment(s): STARTED SMOKING AT AGE 17, QUIT MARCH 16, 2021, SMOKED 1PPD. quit vaping july 2024 Past Drug Use History: Marijuana Additional Drug Use History / Comment(s): COCAINE USE "YEARS AGO ". "Smokes maybe 1 joint daily for pain & bipolar." States hasn't been using lately. - Past Family History Mother Family Medical History: Cancer Additional Family Medical History / Comment(s): schizoaffective disorder Father History Unknown: Yes Family Medical History: Unable to Obtain Medications and Allergies Home Medications Medication Instructions Recorded Confirmed Type Atorvastatin Calcium [Lipitor] 40 mg PO DAILY 09/15/24 10/03/24 History Ondansetron Odt [Zofran ODT] 4 mg PO Q8HR PRN 09/15/24 10/03/24 History Gabapentin [Neurontin] 300 mg PO HS 09/23/24 10/03/24 History Acetaminophen Tab [Tylenol] 650 mg PO Q4HR PRN tab 10/01/24 10/03/24 Rx Aspirin 81 mg PO DAILY tab 10/01/24 10/03/24 Rx Metoprolol Tartrate [Lopressor] 25 mg PO BID #60 tab 10/01/24 10/03/24 Rx Losartan [Cozaar] 12.5 mg PO DAILY PRN 10/03/24 10/03/24 History Allergies Allergy/AdvReac Type Severity Reaction Status Date / Time capsaicin Allergy Rash/Hives/ Verified 10/03/24 13:54 Swelling Surgical - Exam Vital Signs Temp Pulse Resp BP Pulse Ox 98.8 F 109 H 16 119/77 100 10/03/24 13:52 10/03/24 13:52 10/03/24 13:52 10/03/24 13:52 10/03/24 13:52 CONSTITUTIONAL: Awake and alert, appears mostly comfortable, cooperative, well- developed, well-nourished, no pain, no acute distress EYES: Pupils equal, round, reactive to light, normal ocular movement ENT: Moist mucous membranes without oral lesions present NECK: No masses, no bruits, trachea midline RESPIRATORY: Lungs sounds diminished in the bases bilaterally. Respirations even, nonlabored. Currently on room air with oxygen saturation 96%. Strong cough. Left-sided Pleurx catheter present under clean dry dressing CARDIOVASCULAR: S1, S2 present. Tacky but regular rate and rhythm, sinus tach on telemetry with heart rate in the low 100s. Sternum stable. Palpable peripheral pulses bilaterally. No edema present. No calf pain or tenderness noted GASTROINTESTINAL: Abdomen soft, nontender, nondistended without masses or organomegaly noted. There is no rebound or guarding present. Active bowel sounds present 4 quadrants. GENITOURINARY: Deferred INTEGUMENTARY: Skin is warm and dry NEUROLOGIC: Cranial nerves II through XII intact, normal coordination, no obvious motor or sensory deficits, speech is normal MUSKULOSKELETAL: Able to move all extremities, strength equal bilaterally, normal posture PSYCHIATRIC: Alert and oriented to person place and time, appropriate affect, intact judgment and insight Results - Labs 10/04/24 06:32 10/04/24 06:32 Abnormal Lab Results - Last 24 Hours (Table) 10/03/24 10/03/24 10/04/24 Range/Units 14:28 14:28 06:32 Hgb 10.6 L 10.2 L (11.4-16.0) gm/dL Hct 33.4 L (34.0-46.0) % MCH 24.6 L (25.0-35.0) pg MCHC 30.0 L 30.6 L (31.0-37.0) g/dL RDW 16.1 H 15.8 H (11.5-15.5) % Sodium 136 L (137-145) mmol/L BUN 18 H (7-17) mg/dL Glucose 135 H (74-99) mg/dL Calcium 8.3 L (8.4-10.2) mg/dL Total Bilirubin 1.4 H (0.2-1.3) mg/dL AST 57 H (14-36) U/L Alkaline Phosphatase 146 H (38-126) U/L Total Protein (6.3-8.2) g/dL Albumin 3.4 L (3.5-5.0) g/dL 10/04/24 Range/Units 06:32 Hgb (11.4-16.0) gm/dL Hct (34.0-46.0) % MCH (25.0-35.0) pg MCHC (31.0-37.0) g/dL RDW (11.5-15.5) % Sodium 132 L (137-145) mmol/L BUN (7-17) mg/dL Glucose 147 H (74-99) mg/dL Calcium 8.1 L (8.4-10.2) mg/dL Total Bilirubin 1.7 H (0.2-1.3) mg/dL AST (14-36) U/L Alkaline Phosphatase (38-126) U/L Total Protein 5.9 L (6.3-8.2) g/dL Albumin 2.8 L (3.5-5.0) g/dL Diabetes panel 10/03/24 10/04/24 Range/Units 14:28 06:32 Sodium 136 L 132 L (137-145) mmol/L Potassium 3.7 4.0 (3.5-5.1) mmol/L Chloride 103 102 (98-107) mmol/L Carbon Dioxide 26 27 (22-30) mmol/L BUN 18 H 16 (7-17) mg/dL Creatinine 0.70 0.62 (0.52-1.04) mg/dL Glucose 135 H 147 H (74-99) mg/dL Calcium 8.3 L 8.1 L (8.4-10.2) mg/dL AST 57 H 36 (14-36) U/L ALT 28 24 (4-34) U/L Alkaline Phosphatase 146 H 124 (38-126) U/L Total Protein 6.9 5.9 L (6.3-8.2) g/dL Albumin 3.4 L 2.8 L (3.5-5.0) g/dL Calcium panel 10/03/24 10/04/24 Range/Units 14:28 06:32 Calcium 8.3 L 8.1 L (8.4-10.2) mg/dL Albumin 3.4 L 2.8 L (3.5-5.0) g/dL Pituitary panel 10/03/24 10/04/24 Range/Units 14:28 06:32 Sodium 136 L 132 L (137-145) mmol/L Potassium 3.7 4.0 (3.5-5.1) mmol/L Chloride 103 102 (98-107) mmol/L Carbon Dioxide 26 27 (22-30) mmol/L BUN 18 H 16 (7-17) mg/dL Creatinine 0.70 0.62 (0.52-1.04) mg/dL Glucose 135 H 147 H (74-99) mg/dL Calcium 8.3 L 8.1 L (8.4-10.2) mg/dL Adrenal panel 10/03/24 10/04/24 Range/Units 14:28 06:32 Sodium 136 L 132 L (137-145) mmol/L Potassium 3.7 4.0 (3.5-5.1) mmol/L Chloride 103 102 (98-107) mmol/L Carbon Dioxide 26 27 (22-30) mmol/L BUN 18 H 16 (7-17) mg/dL Creatinine 0.70 0.62 (0.52-1.04) mg/dL Glucose 135 H 147 H (74-99) mg/dL Calcium 8.3 L 8.1 L (8.4-10.2) mg/dL Total Bilirubin 1.4 H 1.7 H (0.2-1.3) mg/dL AST 57 H 36 (14-36) U/L ALT 28 24 (4-34) U/L Alkaline Phosphatase 146 H 124 (38-126) U/L Total Protein 6.9 5.9 L (6.3-8.2) g/dL Albumin 3.4 L 2.8 L (3.5-5.0) g/dL - Imaging CT scan - chest: report reviewed, image reviewed EKG: image reviewed Assessment and Plan Assessment: Large pericardial effusion found on CT scan Acute chest pain secondary to above History of coronary artery disease with previous PCI and off-pump CABG x 3 on August 09, 2024 Left-sided pleural effusion status post thoracentesis x 4, status post left- sided VATS with talc pleurodesis and placement of left-sided Pleurx catheter 09/29/2024 Right-sided pleural effusion status post thoracentesis x 1 Diabetes mellitus Hypertension EtOH abuse Cirrhosis of the liver Bipolar disorder/anxiety Previous tobacco dependence Marijuana use Osteoarthritis COVID in August 2024 at [facility] Plan: The patient was seen and examined laying in a cart in the emergency room in no acute distress. States her pain is better than when she came in although still somewhat present. Currently sinus tach in the low 100s, blood pressure stable. Remains on room air with oxygen saturation in the mid 90s. Chart/diagnostics were reviewed. The case will be discussed with Dr. Ortiz. For now we will make patient n.p.o. until decision is made regarding management of pericardial effusion. Await echocardiogram. Pain control, morphine switched to Dilaudid. Colchicine added. Home medications reordered. Increase activity as tolerated. Will drain Pleurx catheter today versus tomorrow as she had minimal output yesterday. Medical management of other comorbidities per internal medicine. More recommendations to follow. Thank you for this consult, we will continue to follow along and make further recommendations as appropriate. I have personally seen and examined the patient, performed the documentation and the assessment and plan as written. Number of minutes spent on the visit: 30. Katelin Moy NP-C
[2024-10-04] MEDS: ONDANSETRON 4 MG/2 ML VIAL IVP PRN (08:40)
[2024-10-04] MEDS: ASPIRIN 81 MG PO SCH (08:42)
[2024-10-04] MEDS: METOPROLOL TARTRATE 25 MG TAB PO SCH (08:42)
[2024-10-04] MEDS: PANTOPRAZOLE 40 MG TABLET PO SCH (08:42)
[2024-10-04] MEDS: ATORVASTATIN 40 MG TAB PO SCH (08:43)
[2024-10-04] MEDS: LOSARTAN 25 MG TAB PO SCH (08:43)
[2024-10-04] MEDS: COLCHICINE 0.6 MG EACH PO SCH (09:16)
--- NOTE | 2024-10-04 10:26 | CA ---
Transthoracic Echo Report Name: Yovana Ramos Age: 49 Gender: F : 1975 Exam Date: 10/04/2024 09:55 Exam Location: [facility] Ht (in): 63 Wt (lb): 212 Ordering Physician: Juaquin Echeverria MD Attending/Referring Phys: Mid Level Practitioner Enedelia Thurston RDCS Procedure CPT: Indications: pericardial effusion Cardiac Hx: CABG, Stent Technical Quality: Fair Contrast 1: Total Dose (mL): Contrast 2: Total Dose (mL): MEASUREMENTS (Male / Female) Normal Values 2D ECHO LV Diastolic Diameter PLAX 3.9 cm 4.2 - 5.9 / 3.9 - 5.3 cm LV Systolic Diameter PLAX 1.7 cm IVS Diastolic Thickness 0.9 cm 0.6 - 1.0 / 0.6 - 0.9 cm LVPW Diastolic Thickness 1.2 cm 0.6 - 1.0 / 0.6 - 0.9 cm LV Relative Wall Thickness 0.5 RV Internal Dim ED PLAX 1.1 cm LA Systolic Diameter LX 3.4 cm 3.0 - 4.0 / 2.7 - 3.8 cm LV Diastolic Volume MOD BP 32.5 cm??? 67 - 155 / 56 - 104 cm??? LV Systolic Volume MOD BP 11.7 cm??? 22 - 58 / 19 - 49 cm??? LV Ejection Fraction MOD BP 64.0 % >= 55 % LV Cardiac Index MOD BP 992.0 cm???/min???m??? LV Diastolic Volume MOD 4C 38.6 cm??? LV Systolic Volume MOD 4C 12.6 cm??? LV Ejection Fraction MOD 4C 67.3 % LV Cardiac Index MOD 4C 1241.2 cm???/min???m??? LV Diastolic Length 4C 5.7 cm LV Systolic Length 4C 4.7 cm LV Diastolic Volume MOD 2C 27.6 cm??? LV Systolic Volume MOD 2C 10.4 cm??? LV Ejection Fraction MOD 2C 62.3 % LV Cardiac Index MOD 2C 820.5 cm???/min???m??? LV Diastolic Length 2C 5.6 cm LV Systolic Length 2C 4.4 cm LA Volume 32.5 cm??? 18 - 58 / 22 - 52 cm??? LA Volume Index 15.4 cm???/m??? 16 - 28 cm???/m??? M-MODE Aortic Root Diameter MM 2.5 cm LA Systolic Diameter MM 3.3 cm LA Ao Ratio MM 1.3 AV Cusp Separation MM 1.1 cm DOPPLER TR Peak Velocity 260.4 cm/s TR Peak Gradient 27.1 mmHg FINDINGS Left Ventricle Left ventricular ejection fraction is estimated at 60-65%. Mildly increased posterior wall thickness. Left ventricular cavity size normal. Normal left ventricular systolic function with no obvious regional wall motion abnormalities. Right Ventricle Right Atrium Left Atrium Mitral Valve Aortic Valve Tricuspid Valve Pulmonic Valve Pericardium Large pericardial effusion. Echocardiographic findings suggest a hemodynamically significant pericardial effusion. Right atrial diastolic collapse. Doppler findings suggest a hemodynamically significant pericardial effusion. Respiratory variation of tricuspid flow. Respiratory variation of mitral flow. Aorta Normal size aortic root and proximal ascending aorta. CONCLUSIONS Large pericardial effusion with evidence of tamponade Normal LV function Previewed by: Dr. Waylon Harry MD (Electronically Signed) Final Date: 04 October 2024 10:25
--- NOTE | 2024-10-04 11:27 | P.HPIM ---
History of Present Illness 49-year-old female came in with chest pain had a CT of the chest which showed pericardial effusion patient will undergo pericardial window today patient also had an echocardiogram. Patient does not have any history of congestive heart failure patient had a history of CABG three-vessel bypass which was subsequently complicated by pleural effusion underwent thoracentesis patient had pleural effusions multiple times because of which patient underwent left-sided VATS with talc pleurodesis. Patient is mildly hyponatremic proBNP is only 730 patient is also slightly tachycardic low normal blood pressures. REVIEW OF SYSTEMS: All other systems are negative except those mentioned in the HPI PHYSICAL EXAMINATION: GENERAL: The patient is alert and oriented x3, not in any acute distress. Well developed, well nourished. HEENT: Pupils are round and equally reacting to light. EOMI. No scleral icterus. No conjunctival pallor. Normocephalic, atraumatic. No pharyngeal erythema. No thyromegaly. CARDIOVASCULAR: S1 and S2 present. No murmurs, rubs, or gallops. PULMONARY: Chest is clear to auscultation, no wheezing or crackles. ABDOMEN: Soft, nontender, nondistended, normoactive bowel sounds. No palpable organomegaly. MUSCULOSKELETAL: No joint swelling or deformity. EXTREMITIES: No cyanosis, clubbing, or pedal edema. NEUROLOGICAL: Gross neurological examination did not reveal any focal deficits. SKIN: No rashes. Assessment and plan -Large left-sided pericardial effusion found on the CT: Patient will undergo pericardial window today at a thoracic surgery evaluated the patient patient was started on colchicine -CABG in the past with normal ejection fraction no ago congestive heart failure -Mild hypovolemic hyponatremia gentle hydration repeat electrolytes -History of alcohol abuse presently does not drink no evidence of cirrhosis though -Type 2 diabetes mellitus: Will obtain hemoglobin A1c patient is not on any diabetic medications at this time DVT prophylaxis: Early ambulation Past Medical History Past Medical History: Coronary Artery Disease (CAD), Diabetes Mellitus, GERD/Reflux, Hyperlipidemia, Hypertension, Liver Disease, Osteoarthritis (OA), Pneumonia Additional Past Medical History / Comment(s): Hx pneumonia yrs ago. Hx kidney stones. Diet controlled diabetic-no longer needs meds. Seasonal allergies. Cirrhosis of liver. No menses in 4 1/2 yrs, states body does not make enough Estrogen. Recurrent pleural effusions. COVID in August 2024 at [facility] History of Any Multi-Drug Resistant Organisms: None Reported Past Surgical History: Appendectomy, Breast Surgery, Cholecystectomy, Coronary Bypass/CABG, Heart Catheterization With Stent, Orthopedic Surgery, Tubal Ligation Additional Past Surgical History / Comment(s): Right wrist carpal tunnel surgery, dental surgery- teeth removed, left breast abcess I&D X3, right breast abcess I&D X2, left ankle surgery, triple CABG 08/09/2024, multiple thoracentesis. Cardiac sents x2 and bilateral carotid stents. Left VATS with talc pleurodesis and placement of left-sided pleurx catheter 09/29/[address] Ortiz Past Anesthesia/Blood Transfusion Reactions: No Reported Reaction, Family History of Problems w/ Anesthesia Additional Past Anesthesia/Blood Transfusion Reaction / Comment(s): No blood transfusion to date. Mom stopped breathing during a surgery and was resuscitated. Date of Last Stent Placement:: 07/30/24 Past Psychological History: Anxiety, Bipolar, Depression Additional Psychological History / Comment(s): Maintained with healthy coping m echanisms; diet and exericse (only suffers from depressive disorder, not the manic type). Smoking Status: Former smoker Past Alcohol Use History: None Reported Additional Past Alcohol Use History / Comment(s): STARTED SMOKING AT AGE 17, QUIT MARCH 16, 2021, SMOKED 1PPD. quit vaping july 2024 Past Drug Use History: Marijuana Additional Drug Use History / Comment(s): COCAINE USE "YEARS AGO ". "Smokes maybe 1 joint daily for pain & bipolar." States hasn't been using lately. - Past Family History Mother Family Medical History: Cancer Additional Family Medical History / Comment(s): schizoaffective disorder Father History Unknown: Yes Family Medical History: Unable to Obtain Medications and Allergies Home Medications Medication Instructions Recorded Confirmed Type Atorvastatin Calcium [Lipitor] 40 mg PO DAILY 09/15/24 10/03/24 History Ondansetron Odt [Zofran ODT] 4 mg PO Q8HR PRN 09/15/24 10/03/24 History Gabapentin [Neurontin] 300 mg PO HS 09/23/24 10/03/24 History Acetaminophen Tab [Tylenol] 650 mg PO Q4HR PRN tab 10/01/24 10/03/24 Rx Aspirin 81 mg PO DAILY tab 10/01/24 10/03/24 Rx Metoprolol Tartrate [Lopressor] 25 mg PO BID #60 tab 10/01/24 10/03/24 Rx Losartan [Cozaar] 12.5 mg PO DAILY PRN 10/03/24 10/03/24 History Allergies Allergy/AdvReac Type Severity Reaction Status Date / Time capsaicin Allergy Rash/Hives/ Verified 10/03/24 13:54 Swelling Physical Exam Vitals: Vital Signs Temp Pulse Resp BP Pulse Ox 10/04/24 11:16 98 F 70 18 98/62 96 10/04/24 08:39 98 F 103 H 18 119/86 96 10/04/24 06:00 101 H 18 110/80 96 10/04/24 03:00 103 H 18 146/105 97 10/03/24 23:00 108 H 18 126/80 97 10/03/24 22:00 104 H 18 150/102 97 10/03/24 21:38 103 H 18 136/82 96 10/03/24 18:12 98.4 F 100 19 131/90 97 10/03/24 17:22 102 H 20 108/94 99 10/03/24 16:30 98 18 98/60 100 10/03/24 15:20 98 107/72 99 10/03/24 14:29 103 H 18 110/82 100 10/03/24 13:52 98.8 F 109 H 16 119/77 100 Intake and Output 10/03/24 10/04/24 10/04/24 22:59 06:59 14:59 Other: Weight 96.162 kg Results CBC & Chem 7: 10/04/24 06:32 10/04/24 06:32 Labs: Abnormal Lab Results - Last 24 Hours (Table) 10/03/24 10/03/24 10/04/24 Range/Units 14:28 14:28 06:32 Hgb 10.6 L 10.2 L (11.4-16.0) gm/dL Hct 33.4 L (34.0-46.0) % MCH 24.6 L (25.0-35.0) pg MCHC 30.0 L 30.6 L (31.0-37.0) g/dL RDW 16.1 H 15.8 H (11.5-15.5) % Sodium 136 L (137-145) mmol/L BUN 18 H (7-17) mg/dL Glucose 135 H (74-99) mg/dL Calcium 8.3 L (8.4-10.2) mg/dL Total Bilirubin 1.4 H (0.2-1.3) mg/dL AST 57 H (14-36) U/L Alkaline Phosphatase 146 H (38-126) U/L Total Protein (6.3-8.2) g/dL Albumin 3.4 L (3.5-5.0) g/dL 10/04/24 Range/Units 06:32 Hgb (11.4-16.0) gm/dL Hct (34.0-46.0) % MCH (25.0-35.0) pg MCHC (31.0-37.0) g/dL RDW (11.5-15.5) % Sodium 132 L (137-145) mmol/L BUN (7-17) mg/dL Glucose 147 H (74-99) mg/dL Calcium 8.1 L (8.4-10.2) mg/dL Total Bilirubin 1.7 H (0.2-1.3) mg/dL AST (14-36) U/L Alkaline Phosphatase (38-126) U/L Total Protein 5.9 L (6.3-8.2) g/dL Albumin 2.8 L (3.5-5.0) g/dL Thrombosis Risk Factor Assmnt - Choose All That Apply Any of the Below Risk Factors Present?: Yes Each Factor Represents 1 point: History of prior major surgery (<1month), Obesity (BMI >25) Each Risk Factor Represents 2 Points: Major surgery Other congenital or acquired thrombophilia - If yes, enter type in comment: No Thrombosis Risk Factor Assessment Total Risk Factor Score: 4 Thrombosis Risk Factor Assessment Level: Moderate Risk
[2024-10-04 11:53] LABS: Glucose,Whole Blood 135 mg/dL (70-110)
[2024-10-04] MEDS: IV FLUID CONTINUATION 1,000 ML IV ONE (11:54)
[2024-10-04] MEDS: MIDAZOLAM 2 MG/2 ML VIAL IV ONE (13:13)
--- NOTE | 2024-10-04 13:32 | P.CRDCN ---
History of Present Illness Consult date: 10/04/24 Reason for Consult (text): Chest pain and pericardial effusion History of present illness: This is a 49-year-old female patient of Dr. Ogden with past medical history of hypertension, hyperlipidemia, coronary artery disease status post PCI as well as CABG in 08/2024, diabetes mellitus type 2, alcohol abuse, cirrhosis of the liver, bipolar disorder, marijuana use, prior tobacco use and dependence. We have been asked to evaluate the patient for chest pain and pericardial effusion. Following bypass surgery, patient had recurrent pleural effusions with left sided thoracentesis x 4 and also admission at [facility] for COV ID. Patient does have history of left sided pleural effusion status post thoracentesis x 1, status post left-sided VATS with talc pleurodesis and placement of a left-sided Pleurx catheter on 09/29/2024. Patient woke up on Friday around 1 in the morning and she felt like she pulled a muscle in the left side of her clavicle. When she woke up later in the morning she had the same sensation but it seemed to spread to her neck the posterior shoulder and shoulder blade and under her left arm around to the left side of her chest. It hurts more when she takes a deep breath. Patient is seen today in the emergency center waiting for bed on the cardiac stepdown unit. She has been seen by cardiothoracic surgery team EKG: Sinus rhythm. Echocardiogram reveals EF of 60 to 65%, large pericardial effusion with evidence of tamponade. CTA of the chest reveals large pericardial effusion. No acute pu lmonary embolism. Small pleural effusions with adjacent compressive atelectasis. Left-sided chest tube position. No pneumothorax. Laboratory studies: WBC 7.8, hemoglobin 10.2. Sodium 132, potassium 4, creatinine 0.62. Troponin negative x 3. Home cardiac medications: Aspirin 81 mg daily, atorvastatin 40 mg daily, metoprolol tartrate 25 mg 2 times daily, losartan 12.5 mg daily. Review Of Systems: At the time of my exam: CONSTITUTIONAL: Denies fever or chills. HEENT: Denies blurred vision, vision changes, or eye pain. Denies hemoptysis CARDIOVASCULAR: Reports left-sided chest pain. Denies orthopnea. Denies PND. Denies palpitations RESPIRATORY: Denies shortness of breath. GASTROINTESTINAL: Denies abdominal pain. Denies nausea or vomiting. HEMATOLOGIC: Denies bleeding disorders. GENITOURINARY: Denies any blood in urine. SKIN: Denies puritis. Denies rash. Physical examination: Gen: This is a 49-year-old female appears to be in no acute distress VS: reviewed HEENT: Head is atraumatic, normocephalic. Pupils equal, round. Sclerae is anicteric. NECK: Supple. No JVD. LUNGS: Clear to auscultation. No wheezes or rhonchi. No intercostal retractions. HEART: Regular rate and rhythm. No murmur. ABDOMEN: Soft No tenderness. EXTREMITIES: No pedal edema. No calf tenderness. NEUROLOGICAL: Patient is awake, alert and oriented x3. Assessment: Large pericardial effusion Coronary artery disease status post CABG and PCI History of left-sided pleural effusions status post VATS with talc pleurodesis and left-sided Pleurx catheter Tobacco use and dependence Marijuana use History of alcohol abuse Cirrhosis of the liver Hypertension Hyperlipidemia Diabetes mellitus type 2 Plan: Resume patient's home cardiac medications Patient is scheduled for pericardial window Further recommendations to follow based upon clinical course Thank you kindly for this consultation. Nurse practitioner note has been reviewed, I agree with documented findings and plan of care. Patient was seen and examined. Past Medical History Past Medical History: Coronary Artery Disease (CAD), Diabetes Mellitus, GERD/Reflux, Hyperlipidemia, Hypertension, Liver Disease, Osteoarthritis (OA), Pneumonia Additional Past Medical History / Comment(s): Hx pneumonia yrs ago. Hx kidney stones. Diet controlled diabetic-no longer needs meds. Seasonal allergies. Cirrhosis of liver. No menses in 4 1/2 yrs, states body does not make enough Estrogen. Recurrent pleural effusions. COVID in August 2024 at [facility] History of Any Multi-Drug Resistant Organisms: None Reported Past Surgical History: Appendectomy, Breast Surgery, Cholecystectomy, Coronary Bypass/CABG, Heart Catheterization With Stent, Orthopedic Surgery, Tubal Ligation Additional Past Surgical History / Comment(s): Right wrist carpal tunnel surgery, dental surgery- teeth removed, left breast abcess I&D X3, right breast abcess I&D X2, left ankle surgery, triple CABG 08/09/2024, multiple thoracentesis. Cardiac sents x2 and bilateral carotid stents. Left VATS with talc pleurodesis and placement of left-sided pleurx catheter 09/29/[address] Ortiz Past Anesthesia/Blood Transfusion Reactions: No Reported Reaction, Family History of Problems w/ Anesthesia Additional Past Anesthesia/Blood Transfusion Reaction / Comment(s): No blood transfusion to date. Mom stopped breathing during a surgery and was resuscitated. Date of Last Stent Placement:: 07/30/24 Past Psychological History: Anxiety, Bipolar, Depression Additional Psychological History / Comment(s): Maintained with healthy coping mechanisms; diet and exericse (only suffers from depressive disorder, not the manic type). Smoking Status: Former smoker Past Alcohol Use History: None Reported Additional Past Alcohol Use History / Comment(s): STARTED SMOKING AT AGE 17, QUIT MARCH 16, 2021, SMOKED 1PPD. quit vaping july 2024 Past Drug Use History: Marijuana Additional Drug Use History / Comment(s): COCAINE USE "YEARS AGO ". "Smokes maybe 1 joint daily for pain & bipolar." States hasn't been using lately. - Past Family History Mother Family Medical History: Cancer Additional Family Medical History / Comment(s): schizoaffective disorder Father History Unknown: Yes Family Medical History: Unable to Obtain Medications and Allergies Home Medications Medication Instructions Recorded Confirmed Type Atorvastatin Calcium [Lipitor] 40 mg PO DAILY 09/15/24 10/03/24 History Ondansetron Odt [Zofran ODT] 4 mg PO Q8HR PRN 09/15/24 10/03/24 History Gabapentin [Neurontin] 300 mg PO HS 09/23/24 10/03/24 History Acetaminophen Tab [Tylenol] 650 mg PO Q4HR PRN tab 10/01/24 10/03/24 Rx Aspirin 81 mg PO DAILY tab 10/01/24 10/03/24 Rx Metoprolol Tartrate [Lopressor] 25 mg PO BID #60 tab 10/01/24 10/03/24 Rx Losartan [Cozaar] 12.5 mg PO DAILY PRN 10/03/24 10/03/24 History Allergies Allergy/AdvReac Type Severity Reaction Status Date / Time capsaicin Allergy Rash/Hives/ Verified 10/03/24 13:54 Swelling Physical Exam Vitals: Vital Signs Temp Pulse Resp BP Pulse Ox 10/04/24 06:00 101 H 18 110/80 96 10/04/24 03:00 103 H 18 146/105 97 10/03/24 23:00 108 H 18 126/80 97 10/03/24 22:00 104 H 18 150/102 97 10/03/24 21:38 103 H 18 136/82 96 10/03/24 18:12 98.4 F 100 19 131/90 97 10/03/24 17:22 102 H 20 108/94 99 10/03/24 16:30 98 18 98/60 100 10/03/24 15:20 98 107/72 99 10/03/24 14:29 103 H 18 110/82 100 10/03/24 13:52 98.8 F 109 H 16 119/77 100 Intake and Output 10/03/24 10/04/24 10/04/24 22:59 06:59 14:59 Other: Weight 96.162 kg Results 10/04/24 06:32 10/04/24 06:32 Cardiac Enzymes 10/03/24 10/03/24 10/03/24 Range/Units 14:28 14:28 17:33 AST 57 H (14-36) U/L Troponin I <0.012 <0.012 (0.000-0.034) ng/mL 10/03/24 10/04/24 Range/Units 20:41 06:32 AST 36 (14-36) U/L Troponin I <0.012 (0.000-0.034) ng/mL Coagulation 10/03/24 10/04/24 Range/Units 14:28 06:45 PT 12.2 12.2 (10.0-12.5) sec APTT 27.4 28.3 (22.0-30.0) sec CBC 10/03/24 10/04/24 Range/Units 14:28 06:32 WBC 8.4 7.8 (3.8-10.6) k/uL RBC 4.32 4.07 (3.80-5.40) m/uL Hgb 10.6 L 10.2 L (11.4-16.0) gm/dL Hct 35.5 33.4 L (34.0-46.0) % Plt Count 185 D 188 (150-450) k/uL Comprehensive Metabolic Panel 10/03/24 10/04/24 Range/Units 14:28 06:32 Sodium 136 L 132 L (137-145) mmol/L Potassium 3.7 4.0 (3.5-5.1) mmol/L Chloride 103 102 (98-107) mmol/L Carbon Dioxide 26 27 (22-30) mmol/L BUN 18 H 16 (7-17) mg/dL Creatinine 0.70 0.62 (0.52-1.04) mg/dL Glucose 135 H 147 H (74-99) mg/dL Calcium 8.3 L 8.1 L (8.4-10.2) mg/dL AST 57 H 36 (14-36) U/L ALT 28 24 (4-34) U/L Alkaline Phosphatase 146 H 124 (38-126) U/L Total Protein 6.9 5.9 L (6.3-8.2) g/dL Albumin 3.4 L 2.8 L (3.5-5.0) g/dL Current Medications Generic Name Dose Route Start Last Admin Trade Name Freq PRN Reason Stop Dose Admin Acetaminophen 650 mg 10/04/24 06:29 Acetaminophen Tab 325 Mg Tab PO Q4HR PRN Mild to Moderate Pain (1 - 6) Aspirin 81 mg 10/04/24 09:00 Aspirin 81 Mg PO DAILY [facility] Atorvastatin Calcium 40 mg 10/04/24 09:00 Atorvastatin 40 Mg Tab PO DAILY [facility] Colchicine 0.6 mg 10/04/24 09:00 Colchicine 0.6 Mg Each PO DAILY [facility] Gabapentin 300 mg 10/04/24 21:00 Gabapentin 300 Mg Cap PO HS [facility] Hydromorphone HCl 0.5 mg 10/04/24 07:14 10/04/24 07:28 Hydromorphone 0.5 Mg/0.5 Ml Syringe IVP 0.5 mg Q3HR PRN Administration Pain Losartan Potassium 12.5 mg 10/04/24 09:00 Losartan 25 Mg Tab PO DAILY [facility] Metoprolol Tartrate 25 mg 10/04/24 09:00 Metoprolol Tartrate 25 Mg Tab PO BID [facility] Naloxone HCl 0.2 mg 10/03/24 16:26 Naloxone 0.4 Mg/Ml 1 Ml Vial IV Q2M PRN Opioid Reversal Ondansetron HCl 4 mg 10/04/24 07:14 Ondansetron 4 Mg/2 Ml Vial IVP Q6HR PRN Nausea And Vomiting Pantoprazole Sodium 40 mg 10/04/24 07:30 Pantoprazole 40 Mg Tablet PO AC-BRKFST [facility] Intake and Output 10/03/24 10/04/24 10/04/24 22:59 06:59 14:59 Other: Weight 96.162 kg 10/04/24 06:32 10/04/24 06:32
[2024-10-04] MEDS ORDERED: ePHEDrine 50 MG/ML 1 ML VIAL ONE (13:51)
[2024-10-04] MEDS ORDERED: SUCCINYLCHOLINE CHLORIDE 200 MG/10 ML VIAL IV ONE (13:51)
[2024-10-04] MEDS ORDERED: PROPOFOL 10 MG/ML 20 ML VIAL IV ONE (13:51)
[2024-10-04] MEDS ORDERED: HYDROmorphone (PF) 1 MG/ML ONE (13:51)
[2024-10-04] MEDS ORDERED: MIDAZOLAM 2 MG/2 ML VIAL ONE (13:51)
[2024-10-04] MEDS ORDERED: fentaNYL (PF) 50 MCG/ML 2 ML AMP ONE (13:51)
[2024-10-04] MEDS ORDERED: KETAMINE HCL IN 0.9 % NACL 50 MG/5 ML SYRINGE ONE (13:51)
[2024-10-04] MEDS ORDERED: LIDOCAINE 1% INJ 10MG/ML (20 ML MDV) ONE (13:51)
[2024-10-04] MEDS: LIDOCAINE 1% INJ 10MG/ML (20 ML MDV) SQ ONE (14:15)
--- NOTE | 2024-10-04 14:35 | P.OP ---
Date of Procedure: 10/04/24 Preoperative Diagnosis: Pericardial effusion Postoperative Diagnosis: Same Procedure(s) Performed: Subxiphoid pericardial window Anesthesia: GETA Surgeon: Phong Ortiz Oriental Rug Stretcher #1: Joseph Cavazos Estimated Blood Loss (ml): 2 IV fluids (ml): 100 Urine output (ml): 0 Pathology: other (Pericardial fluid sent for cell count, LDH protein glucose, C&S) Disposition: PACU Indications for Procedure: 49-year-old female with known liver cirrhosis status post CABG has had persistent left pleural effusion with 5 thoracenteses, undergoing left Pleurx catheter placement last week. The fluid has been well-controlled with the Pleurx catheter and she only drained 50 yesterday however she developed chest pains and came to the emergency department. CT scan demonstrated a large pericardial effusion. This is new from last week. Echo confirmed the presence of a large pericardial effusion with evidence of early tamponade. Operative Findings: Pericardial space was free. Pleural fluid was clear thin yellow serous fluid. 600 cc was drained. Description of Procedure: Patient was brought to the operating room sterilely prepped and draped. General anesthesia was induced. SALTY probe was placed. Anterior chest and upper abdomen were sterilely prepped and draped. The bottom of the previous sternotomy incision was opened and dissection carried down to the midline fascia. Sutures in the midline fascia were removed and dissection was carried up under the xiphoid process. The pericardium was opened with a scissors and then enlarged. Clear serous fluid was obtained and portion was collected and sent for specimen. 32 [place] right angled chest tube was placed through separate stab incision and positioned posteriorly in the pericardium. It was connected to Pleur-evac. It was secured with an 0 Ethibond suture. Fascia was closed with #1 Vicryl. Subcutaneous and subcuticular layers closed with layers of Vicryl suture. Dry sterile dressings were applied. Patient was extubated and transferred to recovery in stable condition.
--- NOTE | 2024-10-04 15:23 | XR ---
EXAMINATION TYPE: XR chest 1V portable DATE OF EXAM: 10/04/2024 COMPARISON: 09/15/2024 HISTORY: Post pericardial window TECHNIQUE: Single frontal view of the chest is obtained. FINDINGS: There is a left-sided mediastinal tube. There's been prior CABG surgery. There is a drainage catheter overlying the left ventricle presumably of pericardial drainage catheter. There is marked decrease in the opacification involving the left mid and lower lung zone consistent w ith interval reduction of pleural effusion. There is mild opacification in the retrocardiac region po ssibly pneumonia or atelectasis. The right lung is clear. There is no pneumothorax. The pulmonary vascularity is noncongested. The osseous structures are intact. IMPRESSION: Mild retrocardiac opacity reflecting atelectasis or pneumonia. [facility], Workstation: [id number] 10/04/2024 3:21 PM
[2024-10-04 15:45] LABS: Glucose,Whole Blood 119 mg/dL (70-110)
[2024-10-04] MEDS: SODIUM CHLORIDE 0.9% 1,000 ML IV SCH (16:22)
--- NOTE | 2024-10-04 16:45 | P.ANPRN ---
Procedure Note - Anesthesia - SALTY Intraop Pre Bypass SALTY Intraop - Anesthesia Indication: Pericardial window Date of Procedure: 10/04/24 Pre-operative Diagnosis: large pericardial effusion Post-operative Diagnosis: same Left Ventricle: ejection fraction 55-60%. Large circumferential pericardial effusion noted most being located in the posterior aspect of the heart. This pericardial effusion was completely drained as noted after the pericardial window procedure. Ejection Fraction: Normal Left Ventricle Hypertrophy: No R. Ventricle Function: Normal Aortic Valve: P gradient 14 mmHg and mean gradient 7 mmHg Anatomy: Trileaflet Aortic Stenosis: Mild Mitral Stenosis: None Mitral Regurgitation: Trace Tricuspid Stenosis: None Tricuspid Regurgitation: Trace Pulmonic Stenosis: None R. Atrial Dilation: No R. Atrial PFO: No L. Atrial Dilation: No Aortic Dissection: No Plural Effusion: Left
[2024-10-04] MEDS: SPIRONOLACTONE 25 MG TAB PO SCH (17:06)
[2024-10-04] MEDS: ACETAMINOPHEN TAB 325 MG TAB PO PRN (20:52)
[2024-10-04] MEDS: GABAPENTIN 300 MG CAP PO SCH (20:52)
[2024-10-04 21:41] LABS: Appearance,BF Cloudy (Clear)
[2024-10-04 23:26] LABS: Glucose, BF Source Other; Glucose, Body Fluid 134 mg/dL; LDH, Body Fluid Source Other; T. Protein, Body Fluid Source Other; Total Protein, Body Fluid >3600 mg/dL
[2024-10-05 07:36] LABS: HCT 33.4 % (34.0-46.0); HGB 9.7 gm/dL (11.4-16.0); Hypochromasia Marked; MCH 24.7 pg (25.0-35.0); MCHC 29.1 g/dL (31.0-37.0); Mean Platelet Volume 9.9; Platelet Count 136 k/uL (150-450); RBC 3.93 m/uL (3.80-5.40); RDW 15.9 % (11.5-15.5); WBC 5.4 k/uL (3.8-10.6)
[2024-10-05 07:56] LABS: African American GFR (CKD) >90 (>60 ml/min/1.73 sqM); Anion Gap 5 mmol/L; Blood Urea Nitrogen 14 mg/dL (7-17); Calcium 7.9 mg/dL (8.4-10.2); Carbon Dioxide 26 mmol/L (22-30); Chloride 103 mmol/L (98-107); Glucose 125 mg/dL (74-99); Non-African American GFR(CKD) >90 (>60 ml/min/1.73 sqM); Potassium 4.2 mmol/L (3.5-5.1); Sodium 134 mmol/L (137-145)
--- NOTE | 2024-10-05 08:04 | XR ---
EXAMINATION TYPE: XR chest 2V DATE OF EXAM: 10/05/2024 6:21 AM COMPARISON: 10/04/2024 CLINICAL INDICATION: Female, 49 years old with history of post pericardial window, TECHNIQUE: XR chest 2V view(s) obtained. FINDINGS: The heart size is normal. The pulmonary vasculature is normal. Small left basilar infiltrate is present. Left-sided chest tube is present. Basilar chest tube. Hayde cardial window is present. IMPRESSION: 1. Small left lower lobe infiltrate. 2. 2 left-sided chest tubes [facility], , 10/05/2024 8:02 AM
--- NOTE | 2024-10-05 10:07 | P.PN ---
Subjective Progress Note Date: 10/05/24 Principal diagnosis: Large pericardial effusion. History of coronary artery disease with previous PCI and off-pump CABG x 3 on August 09, 2024, left-sided pleural effusion status post thoracentesis x 4, status post left-sided VATS with talc pleurodesis and placement of left-sided Pleurx catheter 09/29/2024, right-sided pleural effusion status post thoracentesis x 1, diabetes mellitus, hypertension, EtOH abuse, cirrhosis of the liver, bipolar disorder/anxiety, previous tobacco dependence, marijuana use, osteoarthritis POD #1 subxiphoid pericardial window with removal of 600 mL yellow serous fluid The patient was seen and examined this morning sitting up in recliner on the cardiac stepdown unit in no acute distress. Remains in sinus rhythm, hemodynamically stable although blood pressure is little soft as it has been after every time she has pleural drainage. She remains on room air with oxygen saturation in the high 90s. Mediastinal drain present to [facility], to 90 mL out overnight, 420 mL since surgery yesterday. Remains in good spirits although states she really did not get much sleep the last couple of nights. States her breathing has improved significantly. No other new concerns. Objective - Vital Signs Vital signs: Vital Signs Temp 97.9 F 10/05/24 08:25 Pulse 76 10/05/24 08:25 Resp 17 10/05/24 08:25 BP 96/49 10/05/24 08:25 Pulse Ox 100 10/05/24 08:25 FiO2 Intake & Output 10/04/24 10/05/24 10/05/24 18:59 06:59 18:59 Intake Total 350 702 140 Output Total 10 1420 Balance 340 -718 140 Weight 97.4 kg Intake: IV 350 20 IV Fluid Continuation 1, 20 000 ml @ 0 mls/hr IV .[facility] Rx#:[id number] Oral 702 120 Output: Chest Tube Drainage 290 Chest Tube Mediastinal 290 Drainage 130 Medial Chest 130 Urine 1000 Estimated Blood Loss 10 Other: Voiding Method Toilet Toilet - Exam CONSTITUTIONAL: Appears comfortable, cooperative, no acute distress RESPIRATORY: Lungs sounds diminished in the bases bilaterally. Respirations even, nonlabored. Currently on room air with oxygen saturation 98%. Able to achieve 4554-4091 mL on incentive spirometry. Strong cough. CARDIOVASCULAR: S1, S2 present. Regular rate and rhythm, sinus rhythm on telemetry. Sternum stable. Palpable peripheral pulses bilaterally. No edema present. No calf pain or tenderness noted GASTROINTESTINAL: Abdomen soft, nontender, nondistended. Active bowel sounds present 4 quadrants. Tolerating diet GENITOURINARY: Continues to void INTEGUMENTARY: Skin is warm and dry NEUROLOGIC: Cranial nerves II through XII intact MUSKULOSKELETAL: Able to move all extremities, strength equal bilaterally, gait normal PSYCHIATRIC: Alert and oriented to person place and time, appropriate affect, intact judgment and insight INVASIVE LINES AND TUBES: Mediastinal drain present to waterseal, no airleak present, 290 mL serosanguineous drainage overnight, 420 mL since surgery - Allied health notes Allied health notes reviewed: nursing - Labs CBC & Chem 7: 10/05/24 07:22 10/05/24 07:22 Labs: Abnormal Lab Results - Last 24 Hours (Table) 10/04/24 10/04/24 10/04/24 Range/Units 11:51 14:20 15:42 Hgb (11.4-16.0) gm/dL Hct (34.0-46.0) % MCH (25.0-35.0) pg MCHC (31.0-37.0) g/dL RDW (11.5-15.5) % Plt Count (150-450) k/uL Sodium (137-145) mmol/L Glucose (74-99) mg/dL POC Glucose (mg/dL) 135 H 119 H (70-110) mg/dL Calcium (8.4-10.2) mg/dL Fluid Appearance Cloudy A (Clear) 10/05/24 10/05/24 Range/Units 07:22 07:22 Hgb 9.7 L (11.4-16.0) gm/dL Hct 33.4 L (34.0-46.0) % MCH 24.7 L (25.0-35.0) pg MCHC 29.1 L (31.0-37.0) g/dL RDW 15.9 H (11.5-15.5) % Plt Count 136 L (150-450) k/uL Sodium 134 L (137-145) mmol/L Glucose 125 H (74-99) mg/dL POC Glucose (mg/dL) (70-110) mg/dL Calcium 7.9 L (8.4-10.2) mg/dL Fluid Appearance (Clear) Microbiology - Last 24 Hours (Table) 10/04/24 14:20 Gram Stain - Preliminary Pericardial Fluid Body Fluid Culture - Preliminary - Imaging and Cardiology Chest x-ray: report reviewed, image reviewed Assessment and Plan Assessment: Large pericardial effusion, status post subxiphoid pericardial window Acute chest pain secondary to above History of coronary artery disease with previous PCI and off-pump CABG x 3 on August 09, 2024 Left-sided pleural effusion status post thoracentesis x 4, status post left-si ded VATS with talc pleurodesis and placement of left-sided Pleurx catheter 09/29/2024 Right-sided pleural effusion status post thoracentesis x 1 Diabetes mellitus Hypertension EtOH abuse Cirrhosis of the liver Bipolar disorder/anxiety Previous tobacco dependence Marijuana use Osteoarthritis Plan: Continue current medication regimen, Aldactone added, colchicine discontinued Will continue mediastinal drain for another 24 hours, monitor output, will discontinue when output is minimal Will drain left Pleurx catheter today Increase activity as tolerated Encourage oral intake Medical management of other comorbidities per internal medicine More recommendations to follow
--- NOTE | 2024-10-05 12:36 | P.PN ---
Subjective Progress Note Date: 10/05/24 This is a 49-year-old female patient of Dr. Ogden with past medical history of hypertension, hyperlipidemia, coronary artery disease status post PCI as well as CABG in 08/2024, diabetes mellitus type 2, alcohol abuse, cirrhosis of the liver, bipolar disorder, marijuana use, prior tobacco use and dependence. We have been asked to evaluate the patient for chest pain and pericardial effusion. Following bypass surgery, patient had recurrent pleural effusions with left sided thoracentesis x 4 and also admission at [facility] for COVID. Patient does have history of left sided pleural effusion status post thoracentesis x 1, status post left-sided VATS with talc pleurodesis and placeme nt of a left-sided Pleurx catheter on 09/29/2024. Patient woke up on Friday around 1 in the morning and she felt like she pulled a muscle in the left side of her clavicle. When she woke up later in the morning she had the same sensation but it seemed to spread to her neck the posterior shoulder and shoulder blade and under her left arm around to the left side of her chest. It hurts more when she takes a deep breath. Patient is seen today in the emergency center waiting for bed on the cardiac stepdown unit. She has been seen by cardiothoracic surgery team EKG: Sinus rhythm. Echocardiogram reveals EF of 60 to 65%, large pericardial effusion with evidence of tamponade. CTA of the chest reveals large pericardial effusion. No acute pulmonary embolism. Small pleural effusions with adjacent compressive atelectasis. Left-sided chest tube position. No pneumothorax. Laboratory studies: WBC 7.8, hemoglobin 10.2. Sodium 132, potassium 4, creatinine 0.62. Troponin negative x 3. Home cardiac medications: Aspirin 81 mg daily, atorvastatin 40 mg daily, metoprolol tartrate 25 mg 2 times daily, losartan 12.5 mg daily. October 05, 2024 Patient's echocardiogram showed large pericardial effusion which was having tamponade physiology. For this CT surgery performed pericardial window with subxiphoid drain. She is having good amount of serosanguineous discharge in it. She denies any chest pain chest pressure. She reports that shortness of breath is improved. Physical examination: Gen: This is a 49-year-old female appears to be in no acute distress VS: reviewed HEENT: Head is atraumatic, normocephalic. Pupils equal, round. Sclerae is anicteric. NECK: Supple. No JVD. LUNGS: Clear to auscultation. No wheezes or rhonchi. No intercostal retractions. HEART: Regular rate and rhythm. No murmur. ABDOMEN: Soft No tenderness. EXTREMITIES: No pedal edema. No calf tenderness. NEUROLOGICAL: Patient is awake, alert and oriented x3. Assessment: Large pericardial effusion status post subxiphoid pericardial window 10/04/2024 Coronary artery disease status post CABG and PCI History of left-sided pleural effusions status post VATS with talc pleurodesis and left-sided Pleurx catheter Tobacco use and dependence Marijuana use History of alcohol abuse Cirrhosis of the liver Hypertension Hyperlipidemia Diabetes mellitus type 2 Plan: Aspirin 81, Lipitor 40 mg, metoprolol 25 g twice daily. Add Farxiga 10 mg daily and colchicine 0.6 mg daily Check ESR CRP levels Monitor fluid drainage from the pericardial drain. Objective - Vital Signs Vital signs: Vital Signs Temp 97.9 F 10/05/24 08:25 Pulse 77 10/05/24 11:18 Resp 17 10/05/24 11:18 BP 107/58 10/05/24 11:18 Pulse Ox 100 10/05/24 11:18 FiO2 Intake & Output 10/04/24 10/05/24 10/05/24 18:59 06:59 18:59 Intake Total 350 702 140 Output Total 10 1420 200 Balance 340 -718 -60 Weight 97.4 kg Intake: IV 350 20 IV Fluid Continuation 1, 20 000 ml @ 0 mls/hr IV .[facility] Rx#:[id number] Oral 702 120 Output: Chest Tube Drainage 290 Chest Tube Mediastinal 290 Drainage 130 Medial Chest 130 Urine 1000 200 Estimated Blood Loss 10 Other: Voiding Method Toilet Toilet # Voids 1 - Labs CBC & Chem 7: 10/05/24 07:22 10/05/24 07:22 Labs: Abnormal Lab Results - Last 24 Hours (Table) 10/04/24 10/04/24 10/05/24 Range/Units 14:20 15:42 07:22 Hgb 9.7 L (11.4-16.0) gm/dL Hct 33.4 L (34.0-46.0) % MCH 24.7 L (25.0-35.0) pg MCHC 29.1 L (31.0-37.0) g/dL RDW 15.9 H (11.5-15.5) % Plt Count 136 L (150-450) k/uL Sodium (137-145) mmol/L Glucose (74-99) mg/dL POC Glucose (mg/dL) 119 H (70-110) mg/dL Calcium (8.4-10.2) mg/dL Fluid Appearance Cloudy A (Clear) 10/05/24 Range/Units 07:22 Hgb (11.4-16.0) gm/dL Hct (34.0-46.0) % MCH (25.0-35.0) pg MCHC (31.0-37.0) g/dL RDW (11.5-15.5) % Plt Count (150-450) k/uL Sodium 134 L (137-145) mmol/L Glucose 125 H (74-99) mg/dL POC Glucose (mg/dL) (70-110) mg/dL Calcium 7.9 L (8.4-10.2) mg/dL Fluid Appearance (Clear) Microbiology - Last 24 Hours (Table) 10/04/24 14:20 Gram Stain - Preliminary Pericardial Fluid Body Fluid Culture - Preliminary
[2024-10-05] MEDS: COLCHICINE 0.6 MG EACH PO SCH (12:38)
[2024-10-05] MEDS: DAPAGLIFLOZIN PROPANEDIOL 10 MG TABLET PO SCH (12:43)
--- NOTE | 2024-10-05 13:10 | P.PN ---
Subjective Progress Note Date: 10/05/24 49-year-old female came in with chest pain had a CT of the chest which showed pericardial effusion patient will undergo pericardial window today patient also had an echocardiogram. Patient does not have any history of congestive heart failure patient had a history of CABG three-vessel bypass which was subsequently complicated by pleural effusion underwent thoracentesis patient had pleural effusions multiple times because of which patient underwent left-sided VATS with talc pleurodesis. Patient is mildly hyponatremic proBNP is only 730 patient is also slightly tachycardic low normal blood pressures. 10/05/2024 Patient is eval obtain follow-up on the medical floor resting in bed. Echocardiogram reveals an EF of 60 to 65% with large pericardial effusion with evidence of tamponade. The CT angio revealed a large pericardial effusion with no evidence of pulmonary embolism. Patient underwent pericardial window she is postoperative day #1. 600 cc of clear thin yellow serous fluid was drained. C hest x-ray shows small left lower lobe infiltrate. She continues with mediastinal chest tube to suction as well as Pleurx catheter to the left chest wall. Review of Systems Constitutional: Denied any fatigue denied any fever. Cardio vascular: denied any chest pain, palpitations Gastrointestinal: denied any nausea, vomiting, diarrhea Pulmonary: Denied any shortness of breath cough Neurologic denied any new focal deficits All inpatient medications were reviewed and appropriate changes in these medications as dictated in the interval history and assessment and plan. PHYSICAL EXAMINATION: GENERAL: The patient is alert and oriented x3, not in any acute distress. Well developed, well nourished. HEENT: Pupils are round and equally reacting to light. EOMI. No scleral icterus. No conjunctival pallor. Normocephalic, atraumatic. No pharyngeal erythema. No thyromegaly. CARDIOVASCULAR: S1 and S2 present. No murmurs, rubs, or gallops. PULMONARY: Chest is clear to auscultation, no wheezing or crackles. ABDOMEN: Soft, nontender, nondistended, normoactive bowel sounds. No palpable organomegaly. MUSCULOSKELETAL: No joint swelling or deformity. EXTREMITIES: No cyanosis, clubbing, or pedal edema. NEUROLOGICAL: Gross neurological examination did not reveal any focal deficits. SKIN: No rashes. Assessment and plan -Large left-sided pericardial effusion found on the CT: That is post pericardial window -Left-sided pleural effusion with prior VATS with talc pleurodesis and left-sided Pleurx catheter placed on September 29 -CABG in the past with normal ejection fraction no congestive heart failure -Mild hypovolemic hyponatremia gentle hydration repeat electrolytes -History of alcohol abuse -Liver cirrhosis -Type 2 diabetes mellitus: -Hypertension -Hyperlipidemia GI prophylaxis DVT prophylaxis: Early ambulation Full Code Continue chest tube and monitor fluid drainage from the pericardial drain. Patient continues on colchicine and Farxiga was added. Inflammatory markers are currently pending. Hemoglobin A1c is currently pending at this time. The impression and plan of care has been dictated by Sheree Baugh Nurse Practitioner as directed. Dr. Heriberto MD I have performed a history and physical examination and medical decision making of this patient, discussed the same with the dictator, and agree with the dictators assessment and plan as written, documented as a scribe. Based on total visit time, I have performed more than 50% of this visit. Objective - Vital Signs Vital signs: Vital Signs Temp 97.9 F 10/05/24 08:25 Pulse 76 10/05/24 08:25 Resp 17 10/05/24 08:25 BP 96/49 10/05/24 08:25 Pulse Ox 100 10/05/24 08:25 FiO2 Intake & Output 10/04/24 10/05/24 10/05/24 18:59 06:59 18:59 Intake Total 350 702 Output Total 10 1420 Balance 340 -718 Weight 97.4 kg Intake: IV 350 Oral 702 Output: Chest Tube Drainage 290 Chest Tube Mediastinal 290 Drainage 130 Medial Chest 130 Urine 1000 Estimated Blood Loss 10 Other: Voiding Method Toilet - Labs CBC & Chem 7: 10/05/24 07:22 10/05/24 07:22 Labs: Abnormal Lab Results - Last 24 Hours (Table) 10/04/24 10/04/24 10/04/24 Range/Units 11:51 14:20 15:42 Hgb (11.4-16.0) gm/dL Hct (34.0-46.0) % MCH (25.0-35.0) pg MCHC (31.0-37.0) g/dL RDW (11.5-15.5) % Plt Count (150-450) k/uL Sodium (137-145) mmol/L Glucose (74-99) mg/dL POC Glucose (mg/dL) 135 H 119 H (70-110) mg/dL Calcium (8.4-10.2) mg/dL Fluid Appearance Cloudy A (Clear) 10/05/24 10/05/24 Range/Units 07:22 07:22 Hgb 9.7 L (11.4-16.0) gm/dL Hct 33.4 L (34.0-46.0) % MCH 24.7 L (25.0-35.0) pg MCHC 29.1 L (31.0-37.0) g/dL RDW 15.9 H (11.5-15.5) % Plt Count 136 L (150-450) k/uL Sodium 134 L (137-145) mmol/L Glucose 125 H (74-99) mg/dL POC Glucose (mg/dL) (70-110) mg/dL Calcium 7.9 L (8.4-10.2) mg/dL Fluid Appearance (Clear) Microbiology - Last 24 Hours (Table) 10/04/24 14:20 Gram Stain - Preliminary Pericardial Fluid Assessment and Plan Time with Patient: Less than 30
[2024-10-06] MEDS: SPIRONOLACTONE 25 MG TAB PO SCH (06:56)
--- NOTE | 2024-10-06 07:53 | P.PN ---
Subjective Progress Note Date: 10/06/24 Principal diagnosis: Large pericardial effusion. History of coronary artery disease with previous PCI and off-pump CABG x 3 on August 09, 2024, left-sided pleural effusion status post thoracentesis x 4, status post left-sided VATS with talc pleurodesis and placement of left-sided Pleurx catheter 09/29/2024, right-sided pleural effusion status post thoracentesis x 1, diabetes mellitus, hypertension, EtOH abuse, cirrhosis of the liver, bipolar disorder/anxiety, previous tobacco dependence, marijuana use, osteoarthritis POD #2 subxiphoid pericardial window with removal of 600 mL yellow serous fluid The patient was seen and examined this morning sitting up in recliner on the cardiac stepdown unit in no acute distress. Remains in sinus rhythm, hemodynamically stable although blood pressure is little soft as it has been after every time she has pleural drainage. She remains on room air with oxygen saturation in the high 90s. Mediastinal drain present to [facility], to 20 mL out overnight, 70 mL in the last 24 hours. She did state her eyes felt swollen this morning. States her breathing has improved significantly. Left Pleurx was drained yesterday for 250 mL. Aldactone was stopped yesterday by internal medicine, patient has persistent effusions secondary to liver cirrhosis and needs to remain on Aldactone, reordered. No other new concerns. Objective - Vital Signs Vital signs: Vital Signs Temp 97.9 F 10/06/24 04:00 Pulse 79 10/06/24 04:00 Resp 16 10/06/24 04:00 BP 90/57 10/06/24 04:00 Pulse Ox 95 10/06/24 04:00 FiO2 Intake & Output 10/05/24 10/06/24 10/06/24 18:59 06:59 18:59 Intake Total 380 590 Output Total 900 420 Balance -520 170 Weight 97.4 kg Intake: IV 20 IV Fluid Continuation 1, 20 000 ml @ 0 mls/hr IV .[facility] Rx#:[id number] Oral 360 590 Output: Chest Tube Drainage 250 20 Chest Tube Mediastinal 20 Pleural Catheter 250 Mediastinal Drainage 50 Medial Chest 50 Urine 600 400 Other: Voiding Method Toilet Toilet # Voids 1 # Bowel Movements 0 - Exam CONSTITUTIONAL: Appears comfortable, cooperative, no acute distress RESPIRATORY: Lungs sounds diminished in the bases bilaterally. Respirations even, nonlabored. Currently on room air with oxygen saturation 95%. Able to achieve 2500 mL on incentive spirometry. Strong cough. CARDIOVASCULAR: S1, S2 present. Regular rate and rhythm, sinus rhythm on telemetry. Sternum stable. Palpable peripheral pulses bilaterally. No edema present. No calf pain or tenderness noted GASTROINTESTINAL: Abdomen soft, nontender, nondistended. Active bowel sounds present 4 quadrants. Tolerating diet GENITOURINARY: Continues to void INTEGUMENTARY: Skin is warm and dry NEUROLOGIC: Cranial nerves II through XII intact MUSKULOSKELETAL: Able to move all extremities, strength equal bilaterally, gait normal PSYCHIATRIC: Alert and oriented to person place and time, appropriate affect, intact judgment and insight INVASIVE LINES AND TUBES: Mediastinal drain present to waterseal, no airleak present, 20 mL serosanguineous drainage overnight, 70 mL in the last 24 hours. Left-sided Pleurx catheter present under clean dry dressing - Allied health notes Allied health notes reviewed: nursing - Labs CBC & Chem 7: 10/05/24 07:22 10/05/24 07:22 Labs: Abnormal Lab Results - Last 24 Hours (Table) 10/05/24 10/05/24 10/05/24 Range/Units 07:22 07:22 07:22 ESR 31 H (0-20) mm/Hr Sodium 134 L (137-145) mmol/L Glucose 125 H (74-99) mg/dL Calcium 7.9 L (8.4-10.2) mg/dL C-Reactive Protein 4.40 H (0.00-0.80) mg/dL Microbiology - Last 24 Hours (Table) 10/04/24 14:20 Gram Stain - Preliminary Pericardial Fluid Body Fluid Culture - Preliminary 10/04/24 14:20 Acid Fast Bacilli Smear - Preliminary Pericardial Fluid Assessment and Plan Assessment: Large pericardial effusion, status post subxiphoid pericardial window Acute chest pain secondary to above History of coronary artery disease with previous PCI and off-pump CABG x 3 on August 09, 2024 Left-sided pleural effusion status post thoracentesis x 4, status post left- sided VATS with talc pleurodesis and placement of left-sided Pleurx catheter 09/29/2024 Right-sided pleural effusion status post thoracentesis x 1 Diabetes mellitus Hypertension EtOH abuse Cirrhosis of the liver with persistent effusions Bipolar disorder/anxiety Previous tobacco dependence Marijuana use Osteoarthritis Plan: Continue current medication regimen, continue Aldactone-do not stop, colchicine readded by cardiology although patient states that she does not want to take as it made her feel sick the last time it was prescribed for her Will continue mediastinal drain for another 24 hours, monitor output, will discontinue when output is minimal Will drain left Pleurx catheter again tomorrow Increase activity as tolerated Encourage oral intake Medical management of other comorbidities per internal medicine More recommendations to follow
--- NOTE | 2024-10-06 11:26 | CA ---
Transthoracic Echo Report Name: Yovana Ramos Age: 49 Gender: F : 1975 Exam Date: 10/06/2024 09:08 Exam Location: [facility] Ht (in): 63 Wt (lb): 214 Ordering Physician: Katelin Moy Attending/Referring Phys: [id number], Chinmay Manager Bench Enedelia Thurston, RDCHONG Procedure CPT: Indications: eval for pericardial effusion Cardiac Hx: Pericardial window Technical Quality: Fair Contrast 1: Total Dose (mL): Contrast 2: Total Dose (mL): MEASUREMENTS (Male / Female) Normal Values 2D ECHO LV Diastolic Diameter PLAX 4.2 cm 4.2 - 5.9 / 3.9 - 5.3 cm LV Systolic Diameter PLAX 3.4 cm IVS Diastolic Thickness 1.0 cm 0.6 - 1.0 / 0.6 - 0.9 cm LVPW Diastolic Thickness 0.9 cm 0.6 - 1.0 / 0.6 - 0.9 cm LV Relative Wall Thickness 0.5 RV Internal Dim ED PLAX 1.7 cm LA Systolic Diameter LX 2.7 cm 3.0 - 4.0 / 2.7 - 3.8 cm FINDINGS Left Ventricle Left ventricular ejection fraction is estimated at 55-60 %. Mildly increased septal wall thickness. Left ventricular cavity size normal. Normal left ventricular systolic function with no obvious regional wall motion abnormalities. Right Ventricle Right Atrium Left Atrium Mitral Valve Aortic Valve Tricuspid Valve Pulmonic Valve Pericardium Small pericardial effusion. Pericardial effusion located anteriorly. Pericardial effusion filled with fibrous strands. Aorta CONCLUSIONS Normal LV function Small pericardial effusion noted Previewed by: Dr. Waylon Harry MD (Electronically Signed) Final Date: 06 October 2024 11:25
--- NOTE | 2024-10-06 12:27 | P.PN ---
Subjective Progress Note Date: 10/06/24 49-year-old female came in with chest pain had a CT of the chest which showed pericardial effusion patient will undergo pericardial window today patient also had an echocardiogram. Patient does not have any history of congestive heart failure patient had a history of CABG three-vessel bypass which was subsequently complicated by pleural effusion underwent thoracentesis patient had pleural effusions multiple times because of which patient underwent left-sided VATS with talc pleurodesis. Patient is mildly hyponatremic proBNP is only 730 patient is also slightly tachycardic low normal blood pressures. 10/05/2024 Patient is eval obtain follow-up on the medical floor resting in bed. Echocardiogram reveals an EF of 60 to 65% with large pericardial effusion with evidence of tamponade. The CT angio revealed a large pericardial effusion with no evidence of pulmonary embolism. Patient underwent pericardial window she is postoperative day #1. 600 cc of clear thin yellow serous fluid was drained. C hest x-ray shows small left lower lobe infiltrate. She continues with mediastinal chest tube to suction as well as Pleurx catheter to the left chest wall. 10/06/2024 Eval today in follow-up sitting up in the bed. Had 70 mL of drainage from the mediastinal chest tube and 250 mL of drainage from the Pleurx catheter yesterday. Cardiogram reveals a small pericardial effusion located anteriorly. Postoperative day #2 pericardial window. Sodium of 134 today, CRP is 4.40 and his ESR is 31. White blood cell count normal 5.4. Does report feeling blurry vision in her left eye states that it came on last night she also feels like her left ear is "" waterlogged she is not reporting any tinnitus she is not having any headache dizziness or lightheadedness. She does feel like her left eye is swollen as well as the area surrounding it. Denies any focal weakness. Denies any numbness or tingling in her extremities or face. She is mildly ataxic on the left side. Review of Systems Constitutional: Denied any fatigue denied any fever. Cardio vascular: denied any chest pain, palpitations Gastrointestinal: denied any nausea, vomiting, diarrhea Pulmonary: Denied any shortness of breath cough Neurologic Blurry vision left eye. All inpatient medications were reviewed and appropriate changes in these medications as dictated in the interval history and assessment and plan. PHYSICAL EXAMINATION: GENERAL: The patient is alert and oriented x3, not in any acute distress. Well developed, well nourished. HEENT: Pupils are round and equally reacting to light. EOMI. No scleral icterus. No conjunctival pallor. Normocephalic, atraumatic. No pharyngeal erythema. No thyromegaly. CARDIOVASCULAR: S1 and S2 present. No murmurs, rubs, or gallops. PULMONARY: Chest is clear to auscultation, no wheezing or crackles. ABDOMEN: Soft, nontender, nondistended, normoactive bowel sounds. No palpable organomegaly. MUSCULOSKELETAL: No joint swelling or deformity. EXTREMITIES: No cyanosis, clubbing, or pedal edema. NEUROLOGICAL: Gross neurological examination did not reveal any focal deficits. As mentioned in the HPI. SKIN: No rashes. Assessment and plan -Large left-sided pericardial effusion postoperative day #2 pericardial window -Left-sided pleural effusion with prior VATS with talc pleurodesis and left- sided Pleurx catheter placed on September 29 -CABG in the past with normal ejection fraction no congestive heart failure -Mild hypovolemic hyponatremia gentle hydration repeat electrolytes -History of alcohol abuse -Liver cirrhosis -Type 2 diabetes mellitus: -Hypertension -Hyperlipidemia GI prophylaxis DVT prophylaxis: Early ambulation Full Code Continue chest tube and monitor fluid drainage from the pericardial drain. Patient continues on colchicine and Farxiga was added. Inflammatory markers are elevated. Check a brain CT without contrast. Start the patient on flonase and claritin. Repeat blood work in the AM. The impression and plan of care has been dictated by Sheree Baugh, Nurse Practitioner as directed. Dr. Heriberto MD I have performed a history and physical examination and medical decision making of this patient, discussed the same with the dictator, and agree with the dictators assessment and plan as written, documented as a scribe. Based on total visit time, I have performed more than 50% of this visit. Objective - Vital Signs Vital signs: Vital Signs Temp 97.9 F 10/06/24 04:00 Pulse 79 10/06/24 04:00 Resp 16 10/06/24 04:00 BP 90/57 10/06/24 04:00 Pulse Ox 95 10/06/24 04:00 FiO2 Intake & Output 10/05/24 10/06/24 10/06/24 18:59 06:59 18:59 Intake Total 380 590 Output Total 900 720 Balance -520 -130 Weight 97.4 kg Intake: IV 20 IV Fluid Continuation 1, 20 000 ml @ 0 mls/hr IV .[facility] Rx#:[id number] Oral 360 590 Output: Chest Tube Drainage 250 20 Chest Tube Mediastinal 20 Pleural Catheter 250 Mediastinal Drainage 50 Medial Chest 50 Urine 600 700 Other: Voiding Method Toilet Toilet # Voids 1 # Bowel Movements 0 - Labs CBC & Chem 7: 10/05/24 07:22 10/05/24 07:22 Labs: Abnormal Lab Results - Last 24 Hours (Table) 10/05/24 10/05/24 Range/Units 07:22 07:22 ESR 31 H (0-20) mm/Hr C-Reactive Protein 4.40 H (0.00-0.80) mg/dL Microbiology - Last 24 Hours (Table) 10/04/24 14:20 Gram Stain - Preliminary Pericardial Fluid Body Fluid Culture - Preliminary 10/04/24 14:20 Acid Fast Bacilli Smear - Preliminary Pericardial Fluid Assessment and Plan Time with Patient: Less than 30
[2024-10-06] MEDS: FLUTICASONE NASAL 50MCG/SPRAY 16GM BTL EA NOSTRIL SCH (12:44)
[2024-10-06] MEDS: LORATADINE 10 MG TAB PO SCH (12:44)
--- NOTE | 2024-10-06 13:12 | CT ---
EXAMINATION TYPE: CT brain wo con CT DLP: 1036.8 mGycm, Automated exposure control for dose reduction was used. DATE OF EXAM: 10/06/2024 1:06 PM COMPARISON: None. CLINICAL INDICATION:Female, 49 years old with history of blurry vision Left eye, ataxia, slip in danielson sport, Blurry vision left eye, ataxia TECHNIQUE: Brain: Multiple axial CT images of the brain were obtained without IV contrast. . Coronal and sagitta l reformats reviewed. FINDINGS: Brain: Extra-axial spaces: No abnormal extra-axial fluid collections. Ventricular system: Within normal limits Cerebral parenchyma: No acute intraparenchymal hemorrhage or mass effect. The de leon-white junction is well differentiated. Cerebellum: Unremarkable. Mass effect: No evidence of midline shift. Intracranial vasculature: Atherosclerotic calcifications of the intracranial vessels. Soft tissues: Normal. Calvarium/osseous structures: No depressed skull fracture. Paranasal sinuses and mastoid air cells: Clear Visualized orbits: Orbital contents are intact. IMPRESSION: No acute intracranial process. [facility], , 10/06/2024 1:10 PM
--- NOTE | 2024-10-06 15:15 | P.PN ---
Subjective Progress Note Date: 10/06/24 This is a 49-year-old female patient of Dr. Ogedn with past medical history of hypertension, hyperlipidemia, coronary artery disease status post PCI as well as CABG in 08/2024, diabetes mellitus type 2, alcohol abuse, cirrhosis of the liver, bipolar disorder, marijuana use, prior tobacco use and dependence. We have been asked to evaluate the patient for chest pain and pericardial effusion. Following bypass surgery, patient had recurrent pleural effusions with left sided thoracentesis x 4 and also admission at [facility] for COVID. Patient does have history of left sided pleural effusion status post thoracentesis x 1, status post left-sided VATS with talc pleurodesis and placeme nt of a left-sided Pleurx catheter on 09/29/2024. Patient woke up on Friday around 1 in the morning and she felt like she pulled a muscle in the left side of her clavicle. When she woke up later in the morning she had the same sensation but it seemed to spread to her neck the posterior shoulder and shoulder blade and under her left arm around to the left side of her chest. It hurts more when she takes a deep breath. Patient is seen today in the emergency center waiting for bed on the cardiac stepdown unit. She has been seen by cardiothoracic surgery team EKG: Sinus rhythm. Echocardiogram reveals EF of 60 to 65%, large pericardial effusion with evidence of tamponade. CTA of the chest reveals large pericardial effusion. No acute pulmonary embolism. Small pleural effusions with adjacent compressive atelectasis. Left-sided chest tube position. No pneumothorax. Laboratory studies: WBC 7.8, hemoglobin 10.2. Sodium 132, potassium 4, creatinine 0.62. Troponin negative x 3. Home cardiac medications: Aspirin 81 mg daily, atorvastatin 40 mg daily, metoprolol tartrate 25 mg 2 times daily, losartan 12.5 mg daily. October 05, 2024 Patient's echocardiogram showed large pericardial effusion which was having tamponade physiology. For this CT surgery performed pericardial window with subxiphoid drain. She is having good amount of serosanguineous discharge in it. She denies any chest pain chest pressure. She reports that shortness of breath is improved. 10/06 Patient is seen and examined. Blood pressure 95/63, heart rate 73, pulse ox 97% on room air. Limited echocardiogram performed today revealed normal LV function, small pericardial effusion. Patient states that mediastinal drain most likely is going to be removed tomorrow. Physical examination: Gen: This is a 49-year-old female appears to be in no acute distress VS: reviewed HEENT: Head is atraumatic, normocephalic. Pupils equal, round. Sclerae is anicteric. NECK: Supple. No JVD. LUNGS: Clear to auscultation. No wheezes or rhonchi. No intercostal retractions. HEART: Regular rate and rhythm. No murmur. ABDOMEN: Soft No tenderness. EXTREMITIES: No pedal edema. No calf tenderness. NEUROLOGICAL: Patient is awake, alert and oriented x3. Assessment: Large pericardial effusion status post subxiphoid pericardial window 10/04/2024 Coronary artery disease status post CABG and PCI History of left-sided pleural effusions status post VATS with talc pleurodesis and left-sided Pleurx catheter Tobacco use and dependence Marijuana use History of alcohol abuse Cirrhosis of the liver Hypertension Hyperlipidemia Diabetes mellitus type 2 Plan: Continue Aspirin 81, Lipitor 40 mg, metoprolol 25 g twice daily. Continue Farxiga 10 mg daily, Aldactone 50 mg twice daily Discontinue colchicine 0.6 mg daily as patient is not able to tolerate due to severe diarrhea Monitor fluid drainage from the pericardial drain. Follow-up tomorrow Nurse practitioner note has been reviewed, I agree with documented findings and plan of care. Patient was seen and examined. Objective - Vital Signs Vital signs: Vital Signs Temp 98.2 F 10/06/24 08:25 Pulse 73 10/06/24 08:25 Resp 16 10/06/24 08:25 BP 95/63 10/06/24 08:25 Pulse Ox 98 10/06/24 09:32 FiO2 Intake & Output 10/05/24 10/06/24 10/06/24 18:59 06:59 18:59 Intake Total 380 590 476 Output Total 900 720 500 Balance -520 -130 -24 Weight 97.4 kg Intake: IV 20 IV Fluid Continuation 1, 20 000 ml @ 0 mls/hr IV .[facility] Rx#:[id number] Oral 360 590 476 Output: Chest Tube Drainage 250 20 0 Chest Tube Mediastinal 20 0 Pleural Catheter 250 Mediastinal Drainage 50 Medial Chest 50 Urine 600 700 500 Other: Voiding Method Toilet Toilet Toilet # Voids 1 # Bowel Movements 0 - Labs CBC & Chem 7: 10/05/24 07:22 10/05/24 07:22 Labs: Abnormal Lab Results - Last 24 Hours (Table) 10/05/24 10/05/24 Range/Units 07:22 07:22 ESR 31 H (0-20) mm/Hr C-Reactive Protein 4.40 H (0.00-0.80) mg/dL Microbiology - Last 24 Hours (Table) 10/04/24 14:20 Anaerobic Culture - Preliminary Pericardial Fluid 10/04/24 14:20 Gram Stain - Preliminary Pericardial Fluid Body Fluid Culture - Preliminary 10/04/24 14:20 Acid Fast Bacilli Smear - Preliminary Pericardial Fluid
[2024-10-06] MEDS: HEPARIN SODIUM,PORCINE 5,000 UNIT/ML 1 ML VIAL SQ SCH (21:01)
[2024-10-06] MEDS: SENNOSIDES-DOCUSATE SODIUM 1 EACH TAB PO SCH (21:03)
[2024-10-07 07:34] LABS: Anisocytosis Slight; HCT 31.7 % (34.0-46.0); HGB 9.5 gm/dL (11.4-16.0); Hypochromasia Marked; MCH 24.9 pg (25.0-35.0); MCHC 29.9 g/dL (31.0-37.0); MCV 83.1 fL (80.0-100.0); Mean Platelet Volume 10.7; Platelet Count 156 k/uL (150-450); RBC 3.81 m/uL (3.80-5.40); RDW 16.3 % (11.5-15.5); WBC 4.8 k/uL (3.8-10.6)
[2024-10-07 07:46] LABS: African American GFR (CKD) >90 (>60 ml/min/1.73 sqM); Anion Gap 5 mmol/L; Blood Urea Nitrogen 7 mg/dL (7-17); Calcium 7.7 mg/dL (8.4-10.2); Carbon Dioxide 27 mmol/L (22-30); Chloride 102 mmol/L (98-107); Glucose 134 mg/dL (74-99); Non-African American GFR(CKD) >90 (>60 ml/min/1.73 sqM); Potassium 3.9 mmol/L (3.5-5.1); Sodium 134 mmol/L (137-145)
--- NOTE | 2024-10-07 08:18 | XR ---
EXAMINATION TYPE: XR chest 2V DATE OF EXAM: 10/07/2024 6:45 AM COMPARISON: 10/05/2024 CLINICAL INDICATION: Female, 49 years old with history of Effusion, TECHNIQUE: XR chest 2V view(s) obtained. FINDINGS: The heart size is normal. There is a large pneumopericardium air-fluid levels within the anterior me diastinum. Left basilar chest tube is present may be within the inferior pericardial region. Left-margaret ed chest tube is present The pulmonary vasculature is normal. There may be a posterior left lung infiltrate. Report was called to the floor nurse Frances by Dr. Wray by telephone at the time of interpretation . IMPRESSION: 1. Enlarging pneumopericardium. 2. Interval development of the air-fluid level within the anterior mediastinum. 3. Posterior left lower lobe infiltrate 4. CT is available for additional workup. [facility], , 10/07/2024 8:16 AM
--- NOTE | 2024-10-07 09:01 | P.PN ---
Subjective Progress Note Date: 10/07/24 Principal diagnosis: Large pericardial effusion. History of coronary artery disease with previous PCI and off-pump CABG x 3 on August 09, 2024, left-sided pleural effusion status post thoracentesis x 4, status post left-sided VATS with talc pleurodesis and placement of left-sided Pleurx catheter 09/29/2024, right-sided pleural effusion status post thoracentesis x 1, diabetes mellitus, hypertension, EtOH abuse, cirrhosis of the liver, bipolar disorder/anxiety, previous tobacco dependence, marijuana use, osteoarthritis POD #3 subxiphoid pericardial window with removal of 600 mL yellow serous fluid The patient was seen and examined this morning sitting up in recliner on the cardiac stepdown unit in no acute distress. Remains in sinus rhythm, hemodynamically stable. She remains on room air with oxygen saturation in the high 90s. Mediastinal drain present to waterseal, to minimal output overnight, 70 mL in the last 24 hours. She did state her eyes feel less swollen this morning after starting Claritin and Flonase yesterday. States her breathing has improved significantly. Chest x-ray reviewed this morning, reveals pneumopericardium, chest tube placed to continuous wall suction. No other new concerns. Objective - Vital Signs Vital signs: Vital Signs Temp 98.0 F 10/07/24 03:00 Pulse 65 10/07/24 03:00 Resp 16 10/07/24 03:00 BP 97/60 10/07/24 03:00 Pulse Ox 98 10/07/24 03:00 FiO2 Intake & Output 10/06/24 10/07/24 10/07/24 18:59 06:59 18:59 Intake Total 832 222 Output Total 1370 652 Balance -538 -652 222 Weight 81.5 kg Intake: Oral 832 222 Output: Chest Tube Drainage 70 2 Chest Tube Mediastinal 70 2 Urine 1300 650 Other: Voiding Method Toilet Toilet - Exam CONSTITUTIONAL: Appears comfortable, cooperative, no acute distress RESPIRATORY: Lungs sounds diminished in the bases bilaterally. Respirations even, nonlabored. Currently on room air with oxygen saturation 98%. Able to achieve 2500 mL on incentive spirometry. Strong cough. CARDIOVASCULAR: S1, S2 present. Regular rate and rhythm, sinus rhythm on telemetry. Sternum stable. Palpable peripheral pulses bilaterally. No edema present. No calf pain or tenderness noted GASTROINTESTINAL: Abdomen soft, nontender, nondistended. Active bowel sounds present 4 quadrants. Tolerating diet GENITOURINARY: Continues to void INTEGUMENTARY: Skin is warm and dry NEUROLOGIC: Cranial nerves II through XII intact MUSKULOSKELETAL: Able to move all extremities, strength equal bilaterally, gait normal PSYCHIATRIC: Alert and oriented to person place and time, appropriate affect, intact judgment and insight INVASIVE LINES AND TUBES: Mediastinal drain placed to waterseal this morning, no airleak present, minimal serosanguineous drainage overnight, 70 mL in the last 24 hours. Left-sided Pleurx catheter present under clean dry dressing - Allied health notes Allied health notes reviewed: nursing - Labs CBC & Chem 7: 10/07/24 07:18 10/07/24 07:18 Labs: Abnormal Lab Results - Last 24 Hours (Table) 10/07/24 10/07/24 Range/Units 07:18 07:18 Hgb 9.5 L (11.4-16.0) gm/dL Hct 31.7 L (34.0-46.0) % MCH 24.9 L (25.0-35.0) pg MCHC 29.9 L (31.0-37.0) g/dL RDW 16.3 H (11.5-15.5) % Sodium 134 L (137-145) mmol/L Glucose 134 H (74-99) mg/dL Calcium 7.7 L (8.4-10.2) mg/dL Microbiology - Last 24 Hours (Table) 10/04/24 14:20 Gram Stain - Preliminary Pericardial Fluid Body Fluid Culture - Preliminary 10/04/24 14:20 Anaerobic Culture - Preliminary Pericardial Fluid - Imaging and Cardiology Chest x-ray: report reviewed, image reviewed Assessment and Plan Assessment: Large pericardial effusion, status post subxiphoid pericardial window Acute chest pain secondary to above Pneumopericardium, unexpected History of coronary artery disease with previous PCI and off-pump CABG x 3 on August 09, 2024 Left-sided pleural effusion status post thoracentesis x 4, status post left- sided VATS with talc pleurodesis and placement of left-sided Pleurx catheter 09/29/2024 Right-sided pleural effusion status post thoracentesis x 1 Diabetes mellitus Hypertension EtOH abuse Cirrhosis of the liver with persistent effusions Bipolar disorder/anxiety Previous tobacco dependence Marijuana use Osteoarthritis Plan: Continue current medication regimen, continue Aldactone-do not stop Will continue mediastinal drain to continuous wall suction Will drain left Pleurx catheter again today Increase activity as tolerated Encourage oral intake Medical management of other comorbidities per internal medicine More recommendations to follow
--- NOTE | 2024-10-07 14:29 | P.PN ---
Subjective Progress Note Date: 10/07/24 This is a 49-year-old female patient of Dr. Ogden with past medical history of hypertension, hyperlipidemia, coronary artery disease status post PCI as well as CABG in 08/2024, diabetes mellitus type 2, alcohol abuse, cirrhosis of the liver, bipolar disorder, marijuana use, prior tobacco use and dependence. We have been asked to evaluate the patient for chest pain and pericardial effusion. Following bypass surgery, patient had recurrent pleural effusions with left sided thoracentesis x 4 and also admission at [facility] for COVID. Patient does have history of left sided pleural effusion status post thoracentesis x 1, status post left-sided VATS with talc pleurodesis and placeme nt of a left-sided Pleurx catheter on 09/29/2024. Patient woke up on Friday around 1 in the morning and she felt like she pulled a muscle in the left side of her clavicle. When she woke up later in the morning she had the same sensation but it seemed to spread to her neck the posterior shoulder and shoulder blade and under her left arm around to the left side of her chest. It hurts more when she takes a deep breath. Patient is seen today in the emergency center waiting for bed on the cardiac stepdown unit. She has been seen by cardiothoracic surgery team EKG: Sinus rhythm. Echocardiogram reveals EF of 60 to 65%, large pericardial effusion with evidence of tamponade. CTA of the chest reveals large pericardial effusion. No acute pulmonary embolism. Small pleural effusions with adjacent compressive atelectasis. Left-sided chest tube position. No pneumothorax. Laboratory studies: WBC 7.8, hemoglobin 10.2. Sodium 132, potassium 4, creatinine 0.62. Troponin negative x 3. Home cardiac medications: Aspirin 81 mg daily, atorvastatin 40 mg daily, metoprolol tartrate 25 mg 2 times daily, losartan 12.5 mg daily. October 05, 2024 Patient's echocardiogram showed large pericardial effusion which was having tamponade physiology. For this CT surgery performed pericardial window with subxiphoid drain. She is having good amount of serosanguineous discharge in it. She denies any chest pain chest pressure. She reports that shortness of breath is improved. 10/06 Patient is seen and examined. Blood pressure 95/63, heart rate 73, pulse ox 97% on room air. Limited echocardiogram performed today revealed normal LV function, small pericardial effusion. Patient states that mediastinal drain most likely is going to be removed tomorrow. 10/07 Patient is seen today on the cardiac stepdown unit. New finding on chest x-ray this morning was an enlarging pneumopericardium, interval development of air- fluid level within the anterior mediastinum. Mediastinal drain to continue at wall suction, continue Aldactone per cardiothoracic team. Blood pressure 96/63, heart rate 69, pulse ox 99% on room air. Repeat blood work reveals hemoglobin of 9.5. Sodium 134, potassium 3.9, creatinine 0.71. Physical examination: Gen: This is a 49-year-old female appears to be in no acute distress VS: reviewed HEENT: Head is atraumatic, normocephalic. Pupils equal, round. Sclerae is anicteric. NECK: Supple. No JVD. LUNGS: Clear to auscultation. No wheezes or rhonchi. No intercostal retractions. HEART: Regular rate and rhythm. No murmur. ABDOMEN: Soft No tenderness. EXTREMITIES: No pedal edema. No calf tenderness. NEUROLOGICAL: Patient is awake, alert and oriented x3. Assessment: Large pericardial effusion status post subxiphoid pericardial window 10/04/2024 Pneumopericardium Coronary artery disease status post CABG and PCI History of left-sided pleural effusions status post VATS with talc pleurodesis and left-sided Pleurx catheter Tobacco use and dependence Marijuana use History of alcohol abuse Cirrhosis of the liver Hypertension Hyperlipidemia Diabetes mellitus type 2 Plan: Continue Aspirin 81, Lipitor 40 mg, metoprolol 25 g twice daily. Continue Farxiga 10 mg daily, Aldactone 50 mg twice daily Discontinue colchicine 0.6 mg daily as patient is not able to tolerate due to severe diarrhea Monitor fluid drainage from the pericardial drain. Appreciate cardiothoracic team input No medication changes made today Follow-up tomorrow Nurse practitioner note has been reviewed, I agree with documented findings and plan of care. Patient was seen and examined. Objective - Vital Signs Vital signs: Vital Signs Temp 98.0 F 10/07/24 03:00 Pulse 65 10/07/24 03:00 Resp 16 10/07/24 03:00 BP 97/60 10/07/24 03:00 Pulse Ox 98 10/07/24 03:00 FiO2 Intake & Output 10/06/24 10/07/24 10/07/24 18:59 06:59 18:59 Intake Total 832 222 Output Total 1370 652 Balance -538 -652 222 Weight 81.5 kg Intake: Oral 832 222 Output: Chest Tube Drainage 70 2 Chest Tube Mediastinal 70 2 Urine 1300 650 Other: Voiding Method Toilet Toilet - Labs CBC & Chem 7: 10/07/24 07:18 10/07/24 07:18 Labs: Abnormal Lab Results - Last 24 Hours (Table) 10/07/24 10/07/24 Range/Units 07:18 07:18 Hgb 9.5 L (11.4-16.0) gm/dL Hct 31.7 L (34.0-46.0) % MCH 24.9 L (25.0-35.0) pg MCHC 29.9 L (31.0-37.0) g/dL RDW 16.3 H (11.5-15.5) % Sodium 134 L (137-145) mmol/L Glucose 134 H (74-99) mg/dL Calcium 7.7 L (8.4-10.2) mg/dL Microbiology - Last 24 Hours (Table) 10/04/24 14:20 Gram Stain - Preliminary Pericardial Fluid Body Fluid Culture - Preliminary 10/04/24 14:20 Anaerobic Culture - Preliminary Pericardial Fluid
--- NOTE | 2024-10-07 20:23 | P.PN ---
Subjective Progress Note Date: 10/07/24 49-year-old female came in with chest pain had a CT of the chest which showed pericardial effusion patient will undergo pericardial window today patient also had an echocardiogram. Patient does not have any history of congestive heart failure patient had a history of CABG three-vessel bypass which was subsequently complicated by pleural effusion underwent thoracentesis patient had pleural effusions multiple times because of which patient underwent left-sided VATS with talc pleurodesis. Patient is mildly hyponatremic proBNP is only 730 patient is also slightly tachycardic low normal blood pressures. 10/05/2024 Patient is eval obtain follow-up on the medical floor resting in bed. Echocardiogram reveals an EF of 60 to 65% with large pericardial effusion with evidence of tamponade. The CT angio revealed a large pericardial effusion with no evidence of pulmonary embolism. Patient underwent pericardial window she is postoperative day #1. 600 cc of clear thin yellow serous fluid was drained. C hest x-ray shows small left lower lobe infiltrate. She continues with mediastinal chest tube to suction as well as Pleurx catheter to the left chest wall. 10/06/2024 Eval today in follow-up sitting up in the bed. Had 70 mL of drainage from the mediastinal chest tube and 250 mL of drainage from the Pleurx catheter yesterday. Cardiogram reveals a small pericardial effusion located anteriorly. Postoperative day #2 pericardial window. Sodium of 134 today, CRP is 4.40 and his ESR is 31. White blood cell count normal 5.4. Does report feeling blurry vision in her left eye states that it came on last night she also feels like her left ear is "" waterlogged she is not reporting any tinnitus she is not having any headache dizziness or lightheadedness. She does feel like her left eye is swollen as well as the area surrounding it. Denies any focal weakness. Denies any numbness or tingling in her extremities or face. She is mildly ataxic on the left side. 10/07/2024 Patient is evaluated today in follow up sitting up in bed. She is postoperative day #3 subxiphoid pericardial window. Chest xray today shows enlarging pneumopericardium. Interval development of the air-fluid level within the anterior mediastinum. Posterior left lower lobe infiltrate. Chest tube has been placed to suction from waterseal. Patient was started on claritin and flonase yesterday and states her eye feels less swollen today. Brain CT negative for acute findings. Patient to continue on aldactone. Sodium 134 today. Review of Systems Constitutional: Denied any fatigue denied any fever. Cardio vascular: denied any chest pain, palpitations Gastrointestinal: denied any nausea, vomiting, diarrhea Pulmonary: Denied any shortness of breath cough Neurologic Blurry vision left eye. All inpatient medications were reviewed and appropriate changes in these medications as dictated in the interval history and assessment and plan. PHYSICAL EXAMINATION: GENERAL: The patient is alert and oriented x3, not in any acute distress. Well developed, well nourished. HEENT: Pupils are round and equally reacting to light. EOMI. No scleral icterus. No conjunctival pallor. Normocephalic, atraumatic. No pharyngeal erythema. No thyromegaly. CARDIOVASCULAR: S1 and S2 present. No murmurs, rubs, or gallops. PULMONARY: Chest is clear to auscultation, no wheezing or crackles. ABDOMEN: Soft, nontender, nondistended, normoactive bowel sounds. No palpable organomegaly. MUSCULOSKELETAL: No joint swelling or deformity. EXTREMITIES: No cyanosis, clubbing, or pedal edema. NEUROLOGICAL: Gross neurological examination did not reveal any focal deficits. As mentioned in the HPI. SKIN: No rashes. Assessment and plan -Large left-sided pericardial effusion postoperative day #3 pericardial window -Developed pneumopericardium -Left-sided pleural effusion with prior VATS with talc pleurodesis, thoracentesis x 4, and left-sided Pleurx catheter placed on September 29 -right sided pleural effusion s/p thoracentesis x 1 -CABG on aug 09 2024, with normal ejection fraction no congestive heart failure -Mild hypovolemic hyponatremia gentle hydration repeat electrolytes -History of alcohol abuse -Liver cirrhosis -Type 2 diabetes mellitus: -Hypertension -Hyperlipidemia -Former smoker GI prophylaxis DVT prophylaxis: Early ambulation Full Code Continue chest tube and monitor fluid drainage from the pericardial drain. Patient continues on colchicine and Farxiga was added. Inflammatory markers are elevated. Check a brain CT without contrast. Start the patient on flonase and claritin. Repeat blood work in the AM. The impression and plan of care has been dictated by Sheree Baugh, Nurse Practitioner as directed. Dr. Heriberto MD I have performed a history and physical examination and medical decision making of this patient, discussed the same with the dictator, and agree with the dictators assessment and plan as written, documented as a scribe. Based on total visit time, I have performed more than 50% of this visit. Objective - Vital Signs Vital signs: Vital Signs Temp 98.3 F 10/07/24 20:00 Pulse 73 10/07/24 20:00 Resp 15 10/07/24 20:00 BP 96/64 10/07/24 20:00 Pulse Ox 99 10/07/24 20:00 FiO2 Intake & Output 10/07/24 10/07/24 10/08/24 06:59 18:59 06:59 Intake Total 340 Output Total 652 30 Balance -652 310 Weight 81.5 kg Intake: Oral 340 Output: Chest Tube Drainage 2 30 Chest Tube Mediastinal 2 30 Urine 650 Other: Voiding Method Toilet Toilet - Labs CBC & Chem 7: 10/07/24 07:18 10/07/24 07:18 Labs: Abnormal Lab Results - Last 24 Hours (Table) 10/07/24 10/07/24 Range/Units 07:18 07:18 Hgb 9.5 L (11.4-16.0) gm/dL Hct 31.7 L (34.0-46.0) % MCH 24.9 L (25.0-35.0) pg MCHC 29.9 L (31.0-37.0) g/dL RDW 16.3 H (11.5-15.5) % Sodium 134 L (137-145) mmol/L Glucose 134 H (74-99) mg/dL Calcium 7.7 L (8.4-10.2) mg/dL Microbiology - Last 24 Hours (Table) 10/04/24 14:20 Gram Stain - Preliminary Pericardial Fluid Body Fluid Culture - Preliminary Assessment and Plan Time with Patient: Less than 30
--- NOTE | 2024-10-08 07:49 | XR ---
EXAMINATION TYPE: XR chest 2V DATE OF EXAM: 10/08/2024 6:31 AM COMPARISON: 10/07/2024 CLINICAL INDICATION: Female, 49 years old with history of pneumopericardium, TECHNIQUE: XR chest 2V view(s) obtained. FINDINGS: The heart size is normal. Pneumopericardium remains present. An air-fluid level remains present. Left -sided chest tube and left basilar chest tube remain present. The pulmonary vasculature is normal. Posterior pleural effusion is present. IMPRESSION: 1. Severe left pleural effusion. 2. Stable appearance of pneumopericardium. 3. Air-fluid level anterior mediastinum 4. Examination has slightly diminished air within the pericardium but is otherwise stable [facility], , 10/08/2024 7:47 AM
[2024-10-08 08:25] LABS: African American GFR (CKD) >90 (>60 ml/min/1.73 sqM); Anion Gap 3 mmol/L; Anisocytosis Slight; Blood Urea Nitrogen 7 mg/dL (7-17); Calcium 7.6 mg/dL (8.4-10.2); Carbon Dioxide 26 mmol/L (22-30); Chloride 105 mmol/L (98-107); Glucose 127 mg/dL (74-99); HCT 29.9 % (34.0-46.0); HGB 8.8 gm/dL (11.4-16.0); Hypochromasia Marked; MCH 24.4 pg (25.0-35.0); MCHC 29.5 g/dL (31.0-37.0); MCV 82.8 fL (80.0-100.0); Mean Platelet Volume 10.4; Non-African American GFR(CKD) 88 (>60 ml/min/1.73 sqM); Platelet Count 148 k/uL (150-450); Poikilocytosis Slight; Potassium 3.7 mmol/L (3.5-5.1); RBC 3.61 m/uL (3.80-5.40); RDW 16.3 % (11.5-15.5); Sodium 134 mmol/L (137-145); WBC 3.7 k/uL (3.8-10.6)
--- NOTE | 2024-10-08 10:20 | P.PN ---
Subjective Progress Note Date: 10/08/24 Principal diagnosis: Large pericardial effusion. Past medical history significant for coronary artery disease with previous PCI and off-pump CABG x 3 on August 09, 2024, left-sided pleural effusion status post thoracentesis x 4, status post left- sided VATS with talc pleurodesis and placement of left-sided Pleurx catheter 09/29/2024, right-sided pleural effusion status post thoracentesis x 1, diabetes mellitus, hypertension, EtOH abuse, cirrhosis of the liver, bipolar disor meg/anxiety, previous tobacco dependence, marijuana use, osteoarthritis POD #4 subxiphoid pericardial window with removal of 600 mL yellow serous fluid Patient was seen and examined in follow-up today October 08, 2024 at her bedside on the third floor cardiac stepdown unit. Currently the patient is sitting up in bed, eating her breakfast, is awake, alert, oriented x 3 and is in no acute apparent distress. Oxygen saturations are 97% on room air and she is achieving 1500 mL on her incentive spirometry with encouragement. Her is present at her bedside. Subxiphoid chest tube remains in place to low continuous wall suction -20 cm H2O. No airleak is present. Draining thin serosanguineous drainage with 25 mL output in the last 8 hours and 75 mL output in the last 24 hours. She denies any complaints of pain or shortness of breath at this time. Chest x-ray this morning continues to show some pneumopericardium which looks improved from yesterday's x-ray. Objective - Vital Signs Vital signs: Vital Signs Temp 98.2 F 10/08/24 08:20 Pulse 72 10/08/24 08:20 Resp 18 10/08/24 08:20 BP 105/56 10/08/24 08:20 Pulse Ox 96 10/08/24 08:20 FiO2 Intake & Output 10/07/24 10/08/24 10/08/24 18:59 06:59 18:59 Intake Total 340 240 Output Total 30 625 Balance 310 -625 240 Weight 66 kg Intake: Oral 340 240 Output: Chest Tube Drainage 30 75 Chest Tube Mediastinal 30 75 Urine 550 Other: Voiding Method Toilet Toilet - Exam CONSTITUTIONAL: Appears comfortable, cooperative, no acute distress RESPIRATORY: Lungs sounds diminished in the bases bilaterally. Respirations even, nonlabored. Currently on room air with oxygen saturation 98%. Able to achieve 2500 mL on incentive spirometry. Strong cough. CARDIOVASCULAR: S1, S2 present. Regular rate and rhythm, sinus rhythm on telemetry, heart rate 69 bpm. Sternum stable. Palpable peripheral pulses bilaterally. No edema present. No calf pain or tenderness noted GASTROINTESTINAL: Abdomen soft, nontender, nondistended. Active bowel sounds present 4 quadrants. Tolerating diet GENITOURINARY: Continues to void INTEGUMENTARY: Skin is warm and dry, no clubbing or cyanosis is present. NEUROLOGIC: Cranial nerves II through XII intact, no focal deficits. MUSKULOSKELETAL: Able to move all extremities, strength equal bilaterally, gait normal PSYCHIATRIC: Alert and oriented to person place and time, appropriate affect, intact judgment and insight INVASIVE LINES AND TUBES: Subxiphoid drain in place to low continuous wall suction -20 cm H2O, no airleak present, minimal serosanguineous drainage overnight, 75 mL in the last 24 hours. Left-sided Pleurx catheter present under clean dry dressing. - Allied health notes Allied health notes reviewed: nursing - Labs CBC & Chem 7: 10/08/24 07:46 10/08/24 07:46 Labs: Abnormal Lab Results - Last 24 Hours (Table) 10/08/24 10/08/24 Range/Units 07:46 07:46 WBC 3.7 L (3.8-10.6) k/uL RBC 3.61 L (3.80-5.40) m/uL Hgb 8.8 L (11.4-16.0) gm/dL Hct 29.9 L (34.0-46.0) % MCH 24.4 L (25.0-35.0) pg MCHC 29.5 L (31.0-37.0) g/dL RDW 16.3 H (11.5-15.5) % Plt Count 148 L (150-450) k/uL Sodium 134 L (137-145) mmol/L Glucose 127 H (74-99) mg/dL Calcium 7.6 L (8.4-10.2) mg/dL Microbiology - Last 24 Hours (Table) 10/04/24 14:20 Gram Stain - Final Pericardial Fluid Body Fluid Culture - Final - Imaging and Cardiology Chest x-ray: report reviewed, image reviewed Assessment and Plan Assessment: Large pericardial effusion, status post subxiphoid pericardial window Acute chest pain secondary to above Pneumopericardium, unexpected History of coronary artery disease with previous PCI and off-pump CABG x 3 on August 09, 2024 Left-sided pleural effusion status post thoracentesis x 4, status post left- sided VATS with talc pleurodesis and placement of left-sided Pleurx catheter 09/29/2024 Right-sided pleural effusion status post thoracentesis x 1 Diabetes mellitus Hypertension EtOH abuse Cirrhosis of the liver with persistent effusions Bipolar disorder/anxiety Previous tobacco dependence Marijuana use Osteoarthritis Plan: Continue current medication regimen, continue Aldactone-do not stop. Will continue mediastinal drain to low continuous wall suction -20 cm H2O. Left Pleurx catheter can be drained by patient's . Increase activity as tolerated, out of bed for all meals. Encourage oral intake. Medical management of other comorbidities per internal medicine. Will continue to monitor daily chest x-rays. More recommendations to follow based on patient's clinical course. Time with Patient: Greater than 30
--- NOTE | 2024-10-08 12:34 | P.PN ---
Subjective Progress Note Date: 10/08/24 This is a 49-year-old female patient of Dr. Ogden with past medical history of hypertension, hyperlipidemia, coronary artery disease status post PCI as well as CABG in 08/2024, diabetes mellitus type 2, alcohol abuse, cirrhosis of the liver, bipolar disorder, marijuana use, prior tobacco use and dependence. We have been asked to evaluate the patient for chest pain and pericardial effusion. Following bypass surgery, patient had recurrent pleural effusions with left sided thoracentesis x 4 and also admission at [facility] for COVID. Patient does have history of left sided pleural effusion status post thoracentesis x 1, status post left-sided VATS with talc pleurodesis and placeme nt of a left-sided Pleurx catheter on 09/29/2024. Patient woke up on Friday around 1 in the morning and she felt like she pulled a muscle in the left side of her clavicle. When she woke up later in the morning she had the same sensation but it seemed to spread to her neck the posterior shoulder and shoulder blade and under her left arm around to the left side of her chest. It hurts more when she takes a deep breath. Patient is seen today in the emergency center waiting for bed on the cardiac stepdown unit. She has been seen by cardiothoracic surgery team EKG: Sinus rhythm. Echocardiogram reveals EF of 60 to 65%, large pericardial effusion with evidence of tamponade. CTA of the chest reveals large pericardial effusion. No acute pulmonary embolism. Small pleural effusions with adjacent compressive atelectasis. Left-sided chest tube position. No pneumothorax. Laboratory studies: WBC 7.8, hemoglobin 10.2. Sodium 132, potassium 4, creatinine 0.62. Troponin negative x 3. Home cardiac medications: Aspirin 81 mg daily, atorvastatin 40 mg daily, metoprolol tartrate 25 mg 2 times daily, losartan 12.5 mg daily. October 05, 2024 Patient's echocardiogram showed large pericardial effusion which was having tamponade physiology. For this CT surgery performed pericardial window with subxiphoid drain. She is having good amount of serosanguineous discharge in it. She denies any chest pain chest pressure. She reports that shortness of breath is improved. 10/06 Patient is seen and examined. Blood pressure 95/63, heart rate 73, pulse ox 97% on room air. Limited echocardiogram performed today revealed normal LV function, small pericardial effusion. Patient states that mediastinal drain most likely is going to be removed tomorrow. 10/07 Patient is seen today on the cardiac stepdown unit. New finding on chest x-ray this morning was an enlarging pneumopericardium, interval development of air- fluid level within the anterior mediastinum. Mediastinal drain to continue at wall suction, continue Aldactone per cardiothoracic team. Blood pressure 96/63, heart rate 69, pulse ox 99% on room air. Repeat blood work reveals hemoglobin of 9.5. Sodium 134, potassium 3.9, creatinine 0.71. 10/08 Patient continues to have pneumopericardium but improvement from yesterday on chest x-ray noted. She states she has a little chest pain and numbness feeling in her chest. Mediastinal drain remains in place and to wall suction. Blood pressure 104/56, heart rate 72, pulse ox 96% on room air. Repeat blood work reveals WBC 3.7, hemoglobin 8.8, platelet count 148. Sodium 134, potassium 3.7, creatinine 0.8. Physical examination: Gen: This is a 49-year-old female appears to be in no acute distress VS: reviewed HEENT: Head is atraumatic, normocephalic. Pupils equal, round. Sclerae is anicteric. NECK: Supple. No JVD. LUNGS: Clear to auscultation. No wheezes or rhonchi. No intercostal retractions. HEART: Regular rate and rhythm. No murmur. ABDOMEN: Soft No tenderness. EXTREMITIES: No pedal edema. No calf tenderness. NEUROLOGICAL: Patient is awake, alert and oriented x3. Assessment: Large pericardial effusion status post subxiphoid pericardial window 10/04/2024 Pneumopericardium Coronary artery disease status post CABG and PCI History of left-sided pleural effusions status post VATS with talc pleurodesis and left-sided Pleurx catheter Tobacco use and dependence Marijuana use History of alcohol abuse Cirrhosis of the liver Hypertension Hyperlipidemia Diabetes mellitus type 2 Plan: Continue Aspirin 81, Lipitor 40 mg, metoprolol 25 g twice daily. Continue Farxiga 10 mg daily, Aldactone 50 mg twice daily Monitor fluid drainage from the pericardial drain. Appreciate cardiothoracic team input No medication changes made today Follow-up tomorrow Nurse practitioner note has been reviewed, I agree with documented findings and plan of care. Patient was seen and examined. Objective - Vital Signs Vital signs: Vital Signs Temp 98.2 F 10/08/24 08:20 Pulse 72 10/08/24 08:20 Resp 18 10/08/24 08:20 BP 105/56 10/08/24 08:20 Pulse Ox 96 10/08/24 08:20 FiO2 Intake & Output 10/07/24 10/08/24 10/08/24 18:59 06:59 18:59 Intake Total 340 240 Output Total 30 625 25 Balance 310 -625 215 Weight 66 kg Intake: Oral 340 240 Output: Chest Tube Drainage 30 75 25 Chest Tube Mediastinal 30 75 25 Urine 550 Other: Voiding Method Toilet Toilet Toilet - Labs CBC & Chem 7: 10/08/24 07:46 10/08/24 07:46 Labs: Abnormal Lab Results - Last 24 Hours (Table) 10/08/24 10/08/24 Range/Units 07:46 07:46 WBC 3.7 L (3.8-10.6) k/uL RBC 3.61 L (3.80-5.40) m/uL Hgb 8.8 L (11.4-16.0) gm/dL Hct 29.9 L (34.0-46.0) % MCH 24.4 L (25.0-35.0) pg MCHC 29.5 L (31.0-37.0) g/dL RDW 16.3 H (11.5-15.5) % Plt Count 148 L (150-450) k/uL Sodium 134 L (137-145) mmol/L Glucose 127 H (74-99) mg/dL Calcium 7.6 L (8.4-10.2) mg/dL Microbiology - Last 24 Hours (Table) 10/04/24 14:20 Gram Stain - Final Pericardial Fluid Body Fluid Culture - Final
[2024-10-08 16:13] VITALS: BMI 25.7
[2024-10-08 20:21] LABS: Glucose,Whole Blood 134 mg/dL (70-110)
[2024-10-09 06:09] LABS: Glucose,Whole Blood 111 mg/dL (70-110)
--- NOTE | 2024-10-09 11:01 | XR ---
EXAMINATION TYPE: XR chest 1V portable DATE OF EXAM: 10/09/2024 COMPARISON: 10/08/2024 HISTORY: Postop pericardial window TECHNIQUE: Single frontal view of the chest is obtained. FINDINGS: There is a left chest tube unchanged in position. There is a pericardial drainage catheter unchanged. There is no change in the pneumopericardium. The lungs are otherwise clear. There is no pneumothorax. The osseous structures are intact IMPRESSION: No significant interval change [facility], , 10/09/2024 10:58 AM
--- NOTE | 2024-10-09 11:10 | P.PN ---
Subjective Progress Note Date: 10/09/24 Principal diagnosis: Large pericardial effusion. Past medical history significant for coronary artery disease with previous PCI and off-pump CABG x 3 on August 09, 2024, left-sided pleural effusion status post thoracentesis x 4, status post left- sided VATS with talc pleurodesis and placement of left-sided Pleurx catheter 09/29/2024, right-sided pleural effusion status post thoracentesis x 1, diabetes mellitus, hypertension, EtOH abuse, cirrhosis of the liver, bipolar disor meg/anxiety, previous tobacco dependence, marijuana use, osteoarthritis POD #5 subxiphoid pericardial window with removal of 600 mL yellow serous fluid The patient was seen and examined in follow-up today October 09, 2024 at her bedside on the third floor cardiac stepdown unit. She is currently sitting up to the bedside chair, is awake, alert, oriented x 3 and is in no acute apparent distress. Her is present at her bedside. She reports she feels improved today, has been already walking in the cardiac stepdown unit hallway and tolerating well. Her x-ray continues to show a small pneumopericardium, subxiphoid chest tube remains in place to waterseal, no air leak is present. Draining thin serosanguineous drainage with 40 mL output in the last 8 hours and 140 mL output in the last 24 hours. Oxygen saturations are 98% on room air and she is achieving 1500 mL on her incentive spirometry with encouragement. Chest x-ray results reviewed. Objective - Vital Signs Vital signs: Vital Signs Temp 98.3 F 10/09/24 08:53 Pulse 75 10/09/24 08:53 Resp 16 10/09/24 08:53 BP 104/64 10/09/24 08:53 Pulse Ox 98 10/09/24 08:53 FiO2 Intake & Output 10/08/24 10/09/24 10/09/24 18:59 06:59 18:59 Intake Total 960 20 10 Output Total 500 1440 Balance 460 -1420 10 Weight 66 kg 96.8 kg Intake: IV 20 10 Invasive Line 2 10 Invasive Line 4 10 10 Oral 960 Output: Chest Tube Drainage 200 190 Chest Tube Mediastinal 200 190 Urine 300 1250 Other: Voiding Method Toilet Toilet Toilet - Exam CONSTITUTIONAL: Appears comfortable, cooperative, no acute distress RESPIRATORY: Lungs sounds diminished in the bases bilaterally. Respirations even, nonlabored. Currently on room air with oxygen saturation 98%. Able to achieve 1500 mL on incentive spirometry. Strong cough. CARDIOVASCULAR: S1, S2 present. Regular rate and rhythm, sinus rhythm on telemetry, heart rate 75 bpm. Sternum stable. Palpable peripheral pulses bilaterally. No edema present. No calf pain or tenderness noted GASTROINTESTINAL: Abdomen soft, nontender, nondistended. Active bowel sounds present 4 quadrants. Tolerating diet GENITOURINARY: Continues to void INTEGUMENTARY: Skin is warm and dry, no clubbing or cyanosis is present. NEUROLOGIC: Cranial nerves II through XII intact, no focal deficits. MUSKULOSKELETAL: Able to move all extremities, strength equal bilaterally, gait normal PSYCHIATRIC: Alert and oriented to person place and time, appropriate affect, intact judgment and insight INVASIVE LINES AND TUBES: Subxiphoid drain in place to low continuous wall suction -20 cm H2O, no airleak present, minimal serosanguineous drainage overnight, 140 mL in the last 24 hours. Left-sided Pleurx catheter present under clean dry dressing. - Allied health notes Allied health notes reviewed: nursing - Labs CBC & Chem 7: 10/08/24 07:46 10/08/24 07:46 Labs: Abnormal Lab Results - Last 24 Hours (Table) 10/08/24 10/09/24 Range/Units 20:16 06:04 POC Glucose (mg/dL) 134 H 111 H (70-110) mg/dL Microbiology - Last 24 Hours (Table) 10/04/24 14:20 Gram Stain - Final Pericardial Fluid Body Fluid Culture - Final - Imaging and Cardiology Chest x-ray: report reviewed, image reviewed Assessment and Plan Assessment: Large pericardial effusion, status post subxiphoid pericardial window Acute chest pain secondary to above Pneumopericardium, unexpected History of coronary artery disease with previous PCI and off-pump CABG x 3 on August 09, 2024 Left-sided pleural effusion status post thoracentesis x 4, status post left- sided VATS with talc pleurodesis and placement of left-sided Pleurx catheter 09/29/2024 Right-sided pleural effusion status post thoracentesis x 1 Diabetes mellitus Hypertension EtOH abuse Cirrhosis of the liver with persistent effusions Bipolar disorder/anxiety Previous tobacco dependence Marijuana use Osteoarthritis Plan: Continue current medication regimen, continue Aldactone-do not stop. Will continue mediastinal drain to low continuous wall suction -20 cm H2O. We will change out the Pleur-evac system today. Left Pleurx catheter can be drained by patient's . Increase activity as tolerated, out of bed for all meals. Encourage oral intake. Medical management of other comorbidities per internal medicine. Will continue to monitor daily chest x-rays. More recommendations to follow based on patient's clinical course. Time with Patient: Greater than 30
[2024-10-09] MEDS: PETROLAT,WHITE/LAN/8-HYDROXYQU 227 GM OINT TOPICAL PRN (15:23)
--- NOTE | 2024-10-10 08:19 | XR ---
EXAMINATION TYPE: XR chest 1V portable DATE OF EXAM: 10/10/2024 COMPARISON: 10/09/2024 HISTORY: Postop pericardial window TECHNIQUE: Single frontal view of the chest is obtained. FINDINGS: No change in the left chest tube and pericardial drainage tube. There are postsurgical changes of CABG surgery. There is pneumopericardium stable compared to the prior study. There is no pneumothorax or large pleural effusion. There is no definite airspace consolidation. IMPRESSION: Pneumopericardium unchanged compared to the prior study. [facility], , 10/10/2024 8:17 AM
--- NOTE | 2024-10-10 09:32 | P.PN ---
Subjective Progress Note Date: 10/08/24 49-year-old female came in with chest pain had a CT of the chest which showed pericardial effusion patient will undergo pericardial window today patient also had an echocardiogram. Patient does not have any history of congestive heart failure patient had a history of CABG three-vessel bypass which was subsequently complicated by pleural effusion underwent thoracentesis patient had pleural effusions multiple times because of which patient underwent left-sided VATS with talc pleurodesis. Patient is mildly hyponatremic proBNP is only 730 patient is also slightly tachycardic low normal blood pressures. 10/08/2024 Patient is evaluated today in follow up sitting up in bed. She is postoperative day #4 subxiphoid pericardial window. --Chest xray today shows enlarging pneumopericardium. Interval development of the air-fluid level within the anterior mediastinum. Posterior left lower lobe infiltrate. Chest tube has been placed to suction from waterseal. Patient was started on claritin and flonase yesterday and states her eye feels less swollen today. Brain CT negative for acute findings. Objective - Vital Signs Vital signs: Vital Signs Temp 98.3 F 10/09/24 08:53 Pulse 75 10/09/24 08:53 Resp 16 10/09/24 08:53 BP 104/64 10/09/24 08:53 Pulse Ox 98 10/09/24 08:53 FiO2 Intake & Output 10/08/24 10/09/24 10/09/24 18:59 06:59 18:59 Intake Total 960 20 10 Output Total 500 1440 Balance 460 -1420 10 Weight 66 kg 96.8 kg Intake: IV 20 10 Invasive Line 2 10 Invasive Line 4 10 10 Oral 960 Output: Chest Tube Drainage 200 190 Chest Tube Mediastinal 200 190 Urine 300 1250 Other: Voiding Method Toilet Toilet Toilet - Exam GENERAL: The patient is alert and oriented x3, not in any acute distress. Well developed, well nourished. HEENT: Pupils are round and equally reacting to light. EOMI. No scleral icterus. No conjunctival pallor. Normocephalic, atraumatic. No pharyngeal erythema. No thyromegaly. CARDIOVASCULAR: S1 and S2 present. No murmurs, rubs, or gallops. PULMONARY: Chest is clear to auscultation, no wheezing or crackles. ABDOMEN: Soft, nontender, nondistended, normoactive bowel sounds. No palpable organomegaly. MUSCULOSKELETAL: No joint swelling or deformity. EXTREMITIES: No cyanosis, clubbing, or pedal edema. NEUROLOGICAL: Gross neurological examination did not reveal any focal deficits. As mentioned in the HPI. SKIN: No rashes. - Labs CBC & Chem 7: 10/08/24 07:46 10/08/24 07:46 Labs: Abnormal Lab Results - Last 24 Hours (Table) 10/08/24 10/09/24 Range/Units 20:16 06:04 POC Glucose (mg/dL) 134 H 111 H (70-110) mg/dL Microbiology - Last 24 Hours (Table) 10/04/24 14:20 Gram Stain - Final Pericardial Fluid Body Fluid Culture - Final Assessment and Plan Assessment: Assessment and plan -Large left-sided pericardial effusion postoperative day #3 pericardial window -Developed pneumopericardium -Left-sided pleural effusion with prior VATS with talc pleurodesis, thorace ntesis x 4, and left-sided Pleurx catheter placed on September 29 -right sided pleural effusion s/p thoracentesis x 1 -CABG on aug 09 2024, with normal ejection fraction no congestive heart failure -Mild hypovolemic hyponatremia gentle hydration repeat electrolytes -History of alcohol abuse -Liver cirrhosis -Type 2 diabetes mellitus: -Hypertension -Hyperlipidemia -Former smoker GI prophylaxis DVT prophylaxis: Early ambulation Full Code Continue chest tube and monitor fluid drainage from the pericardial drain. Patient continues on colchicine and Farxiga was added. Inflammatory markers are elevated. Check a brain CT without contrast. Start the patient on flonase and claritin. Repeat blood work in the AM.
--- NOTE | 2024-10-10 09:46 | P.PN ---
Subjective Progress Note Date: 10/10/24 Principal diagnosis: Large pericardial effusion. Past medical history significant for coronary artery disease with previous PCI and off-pump CABG x 3 on August 09, 2024, left-sided pleural effusion status post thoracentesis x 4, status post left- sided VATS with talc pleurodesis and placement of left-sided Pleurx catheter 09/29/2024, right-sided pleural effusion status post thoracentesis x 1, diabetes mellitus, hypertension, EtOH abuse, cirrhosis of the liver, bipolar disor meg/anxiety, previous tobacco dependence, marijuana use, osteoarthritis POD #6 subxiphoid pericardial window with removal of 600 mL yellow serous fluid Patient was seen and examined in follow-up today October 10, 2024 at her bedside on the third floor cardiac stepdown unit. She is currently sitting up to the bedside chair, is awake, alert, oriented x 3 and is in no acute apparent distress. She denies any complaints of pain or shortness of breath at this time, and states that she feels improved today from yesterday. Oxygen saturations are 96% on room air and she is achieving 2000 mL on her incentive spirometry with encouragement. Remote telemetry is showing normal sinus rhythm heart rate 78 bpm. Subxiphoid chest tube remains in place to waterseal. No air leak is present. Draining thin serosanguineous drainage with 70 mL output in the last 8 hours and 180 mL output in the last 24 hours. She remains hemodynamically stable and is currently on no inotropic or pressor support. The patient reports her drained her left-sided Pleurx catheter yesterday for 300 mL of thin serosanguineous drainage. Chest x-ray results reviewed. Objective - Vital Signs Vital signs: Vital Signs Temp 98.0 F 10/10/24 09:11 Pulse 77 10/10/24 09:13 Resp 18 10/10/24 04:00 BP 108/72 10/10/24 09:11 Pulse Ox 97 10/10/24 09:11 FiO2 Intake & Output 10/09/24 10/10/24 10/10/24 18:59 06:59 18:59 Intake Total 242 10 250 Output Total 888 752 Balance -646 -742 250 Weight 96.4 kg Intake: IV 20 10 10 0.9 10 Invasive Line 4 20 10 Oral 222 240 Output: Chest Tube Drainage 538 102 Chest Tube Mediastinal 228 102 Pleural Catheter 310 Urine 350 650 Other: Voiding Method Toilet Toilet Toilet # Voids 1 0 1 - Exam CONSTITUTIONAL: Appears comfortable, cooperative, no acute distress RESPIRATORY: Lungs sounds diminished in the bases bilaterally. Respirations even, nonlabored. Currently on room air with oxygen saturation 96%. Able to achieve 2000 mL on incentive spirometry. Strong cough. CARDIOVASCULAR: S1, S2 present. Regular rate and rhythm, sinus rhythm on telemetry, heart rate 75 bpm. Sternum stable. Palpable peripheral pulses bilaterally. No edema present. No calf pain or tenderness noted GASTROINTESTINAL: Abdomen soft, nontender, nondistended. Active bowel sounds present 4 quadrants. Tolerating diet GENITOURINARY: Continues to void INTEGUMENTARY: Skin is warm and dry, no clubbing or cyanosis is present. NEUROLOGIC: Cranial nerves II through XII intact, no focal deficits. MUSKULOSKELETAL: Able to move all extremities, strength equal bilaterally, gait normal PSYCHIATRIC: Alert and oriented to person place and time, appropriate affect, intact judgment and insight INVASIVE LINES AND TUBES: Subxiphoid drain in place to waterseal, no airleak pre sent, 70 mL of thin serosanguineous drainage overnight, 180 mL in the last 24 hours. Left-sided Pleurx catheter present under clean dry dressing. Left-sided Pleurx catheter drained for 300 mL of thin serosanguineous drainage yesterday October 09, 2024. - Allied health notes Allied health notes reviewed: nursing - Labs CBC & Chem 7: 10/08/24 07:46 10/08/24 07:46 - Imaging and Cardiology Chest x-ray: report reviewed, image reviewed Assessment and Plan Assessment: Large pericardial effusion, status post subxiphoid pericardial window Acute chest pain secondary to above Pneumopericardium, unexpected History of coronary artery disease with previous PCI and off-pump CABG x 3 on August 09, 2024 Left-sided pleural effusion status post thoracentesis x 4, status post left- sided VATS with talc pleurodesis and placement of left-sided Pleurx catheter 09/29/2024 Right-sided pleural effusion status post thoracentesis x 1 Diabetes mellitus Hypertension EtOH abuse Cirrhosis of the liver with persistent effusions Bipolar disorder/anxiety Previous tobacco dependence Marijuana use Osteoarthritis Plan: Continue current medication regimen, continue Aldactone-do not stop. Increase Aldactone to 100 mg p.o. twice daily. Will continue mediastinal drain to waterseal. Left Pleurx catheter can be drained by patient's . Drain for 300 mL of thin serosanguineous drainage yesterday October 09, 2024. Increase activity as tolerated, out of bed for all meals. Ambulate in the hallway as tolerated. Encourage oral intake. Medical management of other comorbidities per internal medicine. Will continue to monitor daily chest x-rays. More recommendations to follow based on patient's clinical course. Time with Patient: Greater than 30
[2024-10-10 10:29] LABS: Anisocytosis Slight; Basophils % (A) 0 %; Eosinophils # (A) 0.4 k/uL (0-0.7); Eosinophils % (A) 8 %; HCT 28.7 % (34.0-46.0); HGB 8.9 gm/dL (11.4-16.0); Hypochromasia Marked; Lymphocytes % (A) 21 %; MCH 25.1 pg (25.0-35.0); MCV 81.1 fL (80.0-100.0); Mean Platelet Volume 10.7; Monocytes # (A) 0.3 k/uL (0-1.0); Monocytes % (A) 6 %; Neutrophils # (A) 2.9 k/uL (1.3-7.7); Neutrophils % (A) 63 %; Platelet Count 114 k/uL (150-450); RBC 3.54 m/uL (3.80-5.40); RDW 16.6 % (11.5-15.5); WBC 4.6 k/uL (3.8-10.6)
[2024-10-10 10:41] LABS: African American GFR (CKD) >90 (>60 ml/min/1.73 sqM); Anion Gap 5 mmol/L; Blood Urea Nitrogen 5 mg/dL (7-17); Calcium 7.6 mg/dL (8.4-10.2); Carbon Dioxide 25 mmol/L (22-30); Chloride 104 mmol/L (98-107); Glucose 116 mg/dL (74-99); Non-African American GFR(CKD) >90 (>60 ml/min/1.73 sqM); Potassium 3.8 mmol/L (3.5-5.1); Sodium 134 mmol/L (137-145)
--- NOTE | 2024-10-10 12:13 | P.PN ---
Subjective Progress Note Date: 10/10/24 This is a 49-year-old female patient of Dr. Ogden with past medical history of hypertension, hyperlipidemia, coronary artery disease status post PCI as well as CABG in 08/2024, diabetes mellitus type 2, alcohol abuse, cirrhosis of the liver, bipolar disorder, marijuana use, prior tobacco use and dependence. We have been asked to evaluate the patient for chest pain and pericardial effusion. Following bypass surgery, patient had recurrent pleural effusions with left sided thoracentesis x 4 and also admission at [facility] for COVID. Patient does have history of left sided pleural effusion status post thoracentesis x 1, status post left-sided VATS with talc pleurodesis and placeme nt of a left-sided Pleurx catheter on 09/29/2024. Patient woke up on Friday around 1 in the morning and she felt like she pulled a muscle in the left side of her clavicle. When she woke up later in the morning she had the same sensation but it seemed to spread to her neck the posterior shoulder and shoulder blade and under her left arm around to the left side of her chest. It hurts more when she takes a deep breath. Patient is seen today in the emergency center waiting for bed on the cardiac stepdown unit. She has been seen by cardiothoracic surgery team EKG: Sinus rhythm. Echocardiogram reveals EF of 60 to 65%, large pericardial effusion with evidence of tamponade. CTA of the chest reveals large pericardial effusion. No acute pulmonary embolism. Small pleural effusions with adjacent compressive atelectasis. Left-sided chest tube position. No pneumothorax. Laboratory studies: WBC 7.8, hemoglobin 10.2. Sodium 132, potassium 4, creatinine 0.62. Troponin negative x 3. Home cardiac medications: Aspirin 81 mg daily, atorvastatin 40 mg daily, metoprolol tartrate 25 mg 2 times daily, losartan 12.5 mg daily. October 05, 2024 Patient's echocardiogram showed large pericardial effusion which was having tamponade physiology. For this CT surgery performed pericardial window with subxiphoid drain. She is having good amount of serosanguineous discharge in it. She denies any chest pain chest pressure. She reports that shortness of breath is improved. 10/06 Patient is seen and examined. Blood pressure 95/63, heart rate 73, pulse ox 97% on room air. Limited echocardiogram performed today revealed normal LV function, small pericardial effusion. Patient states that mediastinal drain most likely is going to be removed tomorrow. 10/07 Patient is seen today on the cardiac stepdown unit. New finding on chest x-ray this morning was an enlarging pneumopericardium, interval development of air- fluid level within the anterior mediastinum. Mediastinal drain to continue at wall suction, continue Aldactone per cardiothoracic team. Blood pressure 96/63, heart rate 69, pulse ox 99% on room air. Repeat blood work reveals hemoglobin of 9.5. Sodium 134, potassium 3.9, creatinine 0.71. 10/08 Patient continues to have pneumopericardium but improvement from yesterday on chest x-ray noted. She states she has a little chest pain and numbness feeling in her chest. Mediastinal drain remains in place and to wall suction. Blood pressure 104/56, heart rate 72, pulse ox 96% on room air. Repeat blood work reveals WBC 3.7, hemoglobin 8.8, platelet count 148. Sodium 134, potassium 3.7, creatinine 0.8. 10/10/24 And examined at bedside this a.m. Still has small amount of pneumopericardium still on the pericardial drain with negative suction. No reported chest pain chest pressure. Hemodynamically stable. Physical examination: Gen: This is a 49-year-old female appears to be in no acute distress VS: reviewed HEENT: Head is atraumatic, normocephalic. Pupils equal, round. Sclerae is anicteric. NECK: Supple. No JVD. LUNGS: Clear to auscultation. No wheezes or rhonchi. No intercostal retractions. HEART: Regular rate and rhythm. No murmur. ABDOMEN: Soft No tenderness. EXTREMITIES: No pedal edema. No calf tenderness. NEUROLOGICAL: Patient is awake, alert and oriented x3. Assessment: Large pericardial effusion status post subxiphoid pericardial window 10/04/2024 Pneumopericardium Coronary artery disease status post CABG and PCI History of left-sided pleural effusions status post VATS with talc pleurodesis and left-sided Pleurx catheter Tobacco use and dependence Marijuana use History of alcohol abuse Cirrhosis of the liver Hypertension Hyperlipidemia Diabetes mellitus type 2 Plan: Continue Aspirin 81, Lipitor 40 mg, metoprolol 25 g twice daily. Continue Farxiga 10 mg daily, Aldactone 50 mg twice daily Monitor fluid drainage from the pericardial drain. Appreciate cardiothoracic team input No medication changes made today Objective - Vital Signs Vital signs: Vital Signs Temp 98.0 F 10/10/24 09:11 Pulse 70 10/10/24 12:03 Resp 16 10/10/24 12:03 BP 95/67 10/10/24 12:03 Pulse Ox 99 10/10/24 12:03 FiO2 Intake & Output 10/09/24 10/10/24 10/10/24 18:59 06:59 18:59 Intake Total 242 10 250 Output Total 888 752 Balance -646 -742 250 Weight 96.4 kg Intake: IV 20 10 10 0.9 10 Invasive Line 4 20 10 Oral 222 240 Output: Chest Tube Drainage 538 102 Chest Tube Mediastinal 228 102 Pleural Catheter 310 Urine 350 650 Other: Voiding Method Toilet Toilet Toilet # Voids 1 0 1 - Labs CBC & Chem 7: 10/10/24 10:13 10/10/24 10:13 Labs: Abnormal Lab Results - Last 24 Hours (Table) 10/10/24 10/10/24 Range/Units 10:13 10:13 RBC 3.54 L (3.80-5.40) m/uL Hgb 8.9 L (11.4-16.0) gm/dL Hct 28.7 L (34.0-46.0) % RDW 16.6 H (11.5-15.5) % Plt Count 114 L (150-450) k/uL Sodium 134 L (137-145) mmol/L BUN 5 L (7-17) mg/dL Glucose 116 H (74-99) mg/dL Calcium 7.6 L (8.4-10.2) mg/dL
[2024-10-10] MEDS: SPIRONOLACTONE 25 MG TAB PO SCH (15:21)
--- NOTE | 2024-10-11 01:26 | P.PN ---
Subjective Progress Note Date: 10/09/24 49-year-old female came in with chest pain had a CT of the chest which showed pericardial effusion patient will undergo pericardial window today patient also had an echocardiogram. Patient does not have any history of congestive heart failure patient had a history of CABG three-vessel bypass which was subsequently complicated by pleural effusion underwent thoracentesis patient had pleural effusions multiple times because of which patient underwent left-sided VATS with talc pleurodesis. Patient is mildly hyponatremic proBNP is only 730 patient is also slightly tachycardic low normal blood pressures. 10/08/2024 Patient is evaluated today in follow up sitting up in bed. She is postoperative day #4 subxiphoid pericardial window. --Chest xray today shows enlarging pneumopericardium. Interval development of the air-fluid level within the anterior mediastinum. Posterior left lower lobe infiltrate. Chest tube has been placed to suction from waterseal. Patient was started on claritin and flonase yesterday and states her eye feels less swollen today. Brain CT negative for acute findings. 10/09/2024 Patient is seen and evaluated in room at her bedside on the third floor cardiac stepdown unit; patient's is present at. She is currently sitting up to the bedside chair, is awake, alert, oriented x 3 and is in no acute apparent distress. Her is present at her bedside. She reports she feels improved today, has been already walking in the cardiac stepdown unit hallway and tolerating well. -Her x-ray continues to show a small pneumopericardium, subxiphoid chest tube remains in place to waterseal, no air leak is present. Draining thin serosanguineous drainage with 40 mL output in the last 8 hours and 140 mL output in the last 24 hours. Oxygen saturations are 98% on room air and she is achieving 1500 mL on her incentive spirometry with encouragement.. Objective - Vital Signs Vital signs: Vital Signs Temp 98.3 F 10/09/24 08:53 Pulse 75 10/09/24 08:53 Resp 16 10/09/24 08:53 BP 104/64 10/09/24 08:53 Pulse Ox 98 10/09/24 08:53 FiO2 Intake & Output 10/08/24 10/09/24 10/09/24 18:59 06:59 18:59 Intake Total 960 20 10 Output Total 500 1440 Balance 460 -1420 10 Weight 66 kg 96.8 kg Intake: IV 20 10 Invasive Line 2 10 Invasive Line 4 10 10 Oral 960 Output: Chest Tube Drainage 200 190 Chest Tube Mediastinal 200 190 Urine 300 1250 Other: Voiding Method Toilet Toilet Toilet - Exam GENERAL: The patient is alert and oriented x3, not in any acute distress. Well developed, well nourished. HEENT: Pupils are round and equally reacting to light. EOMI. No scleral icterus. No conjunctival pallor. Normocephalic, atraumatic. No pharyngeal erythema. No thyromegaly. CARDIOVASCULAR: S1 and S2 present. No murmurs, rubs, or gallops. PULMONARY: Chest is clear to auscultation, no wheezing or crackles. ABDOMEN: Soft, nontender, nondistended, normoactive bowel sounds. No palpable organomegaly. MUSCULOSKELETAL: No joint swelling or deformity. EXTREMITIES: No cyanosis, clubbing, or pedal edema. NEUROLOGICAL: Gross neurological examination did not reveal any focal deficits. As mentioned in the HPI. SKIN: No rashes. - Labs CBC & Chem 7: 10/10/24 10:13 10/10/24 10:13 Labs: Abnormal Lab Results - Last 24 Hours (Table) 10/08/24 10/09/24 Range/Units 20:16 06:04 POC Glucose (mg/dL) 134 H 111 H (70-110) mg/dL Microbiology - Last 24 Hours (Table) 10/04/24 14:20 Gram Stain - Final Pericardial Fluid Body Fluid Culture - Final Assessment and Plan Assessment: Assessment and plan -Large left-sided pericardial effusion postoperative day #3 pericardial window -Developed pneumopericardium -Left-sided pleural effusion with prior VATS with talc pleurodesis, thoracentesis x 4, and left-sided Pleurx catheter placed on September 29 -right sided pleural effusion s/p thoracentesis x 1 -CABG on aug 09 2024, with normal ejection fraction no congestive heart failure -Mild hypovolemic hyponatremia gentle hydration repeat electrolytes -History of alcohol abuse -Liver cirrhosis -Type 2 diabetes mellitus: -Hypertension -Hyperlipidemia -Former smoker GI prophylaxis DVT prophylaxis: Early ambulation Full Code Continue chest tube and monitor fluid drainage from the pericardial drain. Patient continues on colchicine and Farxiga was added. Inflammatory markers are elevated. Check a brain CT without contrast. Start the patient on flonase and claritin. Repeat blood work in the AM.
--- NOTE | 2024-10-11 01:36 | P.PN ---
Subjective Progress Note Date: 10/10/24 49-year-old female came in with chest pain had a CT of the chest which showed pericardial effusion patient will undergo pericardial window today patient also had an echocardiogram. Patient does not have any history of congestive heart failure patient had a history of CABG three-vessel bypass which was subsequently complicated by pleural effusion underwent thoracentesis patient had pleural effusions multiple times because of which patient underwent left-sided VATS with talc pleurodesis. Patient is mildly hyponatremic proBNP is only 730 patient is also slightly tachycardic low normal blood pressures. 10/08/2024 Patient is evaluated today in follow up sitting up in bed. She is postoperative day #4 subxiphoid pericardial window. --Chest xray today shows enlarging pneumopericardium. Interval development of the air-fluid level within the anterior mediastinum. Posterior left lower lobe infiltrate. Chest tube has been placed to suction from waterseal. Patient was started on claritin and flonase yesterday and states her eye feels less swollen today. Brain CT negative for acute findings. 10/09/2024 Patient is seen and evaluated in room at her bedside on the third floor cardiac stepdown unit; patient's is present at. She is currently sitting up to the bedside chair, is awake, alert, oriented x 3 and is in no acute apparent distress. Her is present at her bedside. She reports she feels improved today, has been already walking in the cardiac stepdown unit hallway and tolerating well. -Her x-ray continues to show a small pneumopericardium, subxiphoid chest tube remains in place to waterseal, no air leak is present. Draining thin serosanguineous drainage with 40 mL output in the last 8 hours and 140 mL output in the last 24 hours. Oxygen saturations are 98% on room air and she is achieving 1500 mL on her incentive spirometry with encouragement.. 10/10/24 patient is seen and evaluated in room resting comfortably in bed; patient,s at bedside. Still has small amount of pneumopericardium still on the pericardial drain with negative suction. No reported chest pain chest pressure. Hemodynamically stable. --Continue Aspirin 81, Lipitor 40 mg, metoprolol 25 g twice daily; Farxiga 10 mg daily, Aldactone 50 mg twice daily Monitor fluid drainage from the pericardial drain. --Subxiphoid chest tube remains in place to waterseal. No air leak is present. Draining thin serosanguineous drainage with 70 mL output in the last 8 hours and 180 mL output in the last 24 hours. The patient reports her drained her left-sided Pleurx catheter yesterday for 300 mL of thin serosanguineous drainage. Objective - Vital Signs Vital signs: Vital Signs Temp 98.0 F 10/10/24 09:11 Pulse 77 10/10/24 09:13 Resp 18 10/10/24 04:00 BP 108/72 10/10/24 09:11 Pulse Ox 97 10/10/24 09:11 FiO2 Intake & Output 10/09/24 10/10/24 10/10/24 18:59 06:59 18:59 Intake Total 242 10 10 Output Total 888 752 Balance -646 -742 10 Weight 96.4 kg Intake: IV 20 10 10 0.9 10 Invasive Line 4 20 10 Oral 222 Output: Chest Tube Drainage 538 102 Chest Tube Mediastinal 228 102 Pleural Catheter 310 Urine 350 650 Other: Voiding Method Toilet Toilet Toilet # Voids 1 0 1 - Exam GENERAL: The patient is alert and oriented x3, not in any acute distress. Well developed, well nourished. HEENT: Pupils are round and equally reacting to light. EOMI. No scleral icterus. No conjunctival pallor. Normocephalic, atraumatic. No pharyngeal erythema. No thyromegaly. CARDIOVASCULAR: S1 and S2 present. No murmurs, rubs, or gallops. PULMONARY: Chest is clear to auscultation, no wheezing or crackles. ABDOMEN: Soft, nontender, nondistended, normoactive bowel sounds. No palpable organomegaly. MUSCULOSKELETAL: No joint swelling or deformity. EXTREMITIES: No cyanosis, clubbing, or pedal edema. NEUROLOGICAL: Gross neurological examination did not reveal any focal deficits. As mentioned in the HPI. SKIN: No rashes. - Labs CBC & Chem 7: 10/10/24 10:13 10/10/24 10:13 Assessment and Plan Assessment: Assessment and plan -Large left-sided pericardial effusion postoperative day #3 pericardial window -Developed pneumopericardium -Left-sided pleural effusion with prior VATS with talc pleurodesis, thoracen tesis x 4, and left-sided Pleurx catheter placed on September 29 -right sided pleural effusion s/p thoracentesis x 1 -CABG on aug 09 2024, with normal ejection fraction no congestive heart failure -Mild hypovolemic hyponatremia gentle hydration repeat electrolytes -History of alcohol abuse -Liver cirrhosis -Type 2 diabetes mellitus: -Hypertension -Hyperlipidemia -Former smoker GI prophylaxis DVT prophylaxis: Early ambulation Full Code Continue chest tube and monitor fluid drainage from the pericardial drain. Patient continues on colchicine and Farxiga was added. Inflammatory markers are elevated. Check a brain CT without contrast. Start the patient on flonase and claritin. Repeat blood work in the AM.
[2024-10-11 06:43] LABS: Anisocytosis Slight; Basophils % (A) 0 %; Eosinophils # (A) 0.4 k/uL (0-0.7); Eosinophils % (A) 9 %; HCT 31.5 % (34.0-46.0); HGB 9.5 gm/dL (11.4-16.0); Hypochromasia Marked; Lymphocytes # (A) 1.4 k/uL (1.0-4.8); Lymphocytes % (A) 28 %; MCH 24.7 pg (25.0-35.0); MCHC 30.1 g/dL (31.0-37.0); Mean Platelet Volume 10.3; Monocytes # (A) 0.4 k/uL (0-1.0); Monocytes % (A) 7 %; Neutrophils # (A) 2.7 k/uL (1.3-7.7); Neutrophils % (A) 53 %; Platelet Count 130 k/uL (150-450); RBC 3.84 m/uL (3.80-5.40); RDW 16.6 % (11.5-15.5)
[2024-10-11 06:53] LABS: African American GFR (CKD) >90 (>60 ml/min/1.73 sqM); Anion Gap 3 mmol/L; Blood Urea Nitrogen 6 mg/dL (7-17); Calcium 7.8 mg/dL (8.4-10.2); Carbon Dioxide 29 mmol/L (22-30); Chloride 103 mmol/L (98-107); Glucose 107 mg/dL (74-99); Non-African American GFR(CKD) 88 (>60 ml/min/1.73 sqM); Potassium 3.9 mmol/L (3.5-5.1); Sodium 135 mmol/L (137-145)
--- NOTE | 2024-10-11 08:15 | XR ---
EXAMINATION TYPE: XR chest 2V DATE OF EXAM: 10/11/2024 6:37 AM COMPARISON: 10/10/2024 CLINICAL INDICATION: Female, 49 years old with history of post op pericardial window, TECHNIQUE: XR chest 2V view(s) obtained. FINDINGS: The heart size is normal. Pericardial sac is slightly enlarged. Minimal pericardium is present. Air- fluid levels left lower pericardium The pulmonary vasculature is normal. Minimal left pleural fluid is present.. Catheter is present at the cardiac base. Catheter is present in the left lung directed towards the mi dline. IMPRESSION: 1. Pneumopericardium similar to prior study. Air-fluid levels within region. 2. Lines and catheters discussed above. 3. Minimal left pleural effusion [facility], , 10/11/2024 8:13 AM
--- NOTE | 2024-10-11 08:34 | P.PN ---
Subjective Progress Note Date: 10/11/24 Principal diagnosis: Large pericardial effusion. Past medical history significant for coronary artery disease with previous PCI and off-pump CABG x 3 on August 09, 2024, left-sided pleural effusion status post thoracentesis x 4, status post left- sided VATS with talc pleurodesis and placement of left-sided Pleurx catheter 09/29/2024, right-sided pleural effusion status post thoracentesis x 1, diabetes mellitus, hypertension, EtOH abuse, cirrhosis of the liver, bipolar disor meg/anxiety, previous tobacco dependence, marijuana use, osteoarthritis POD #7 subxiphoid pericardial window with removal of 600 mL yellow serous fluid Patient was seen and examined in follow-up today October 11, 2024 at her bedside on the third floor cardiac stepdown unit. Patient is currently sitting up to bedside chair, is awake, alert, oriented x 3 and is in no acute apparent distress. She is tolerating her breakfast. Her is present at her bedside. She denies any complaints of pain or shortness of breath at this time. She does complain of some intermittent pain to her left shoulder and neck with taking a deep breath which is controlled by her current pain medication regimen. Oxygen saturations are 97% on room air and she is achieving 1500 mL on her incentive spirometry with encouragement. Subxiphoid chest tube remains in place to waterseal. No air leak is present. Draining thin serosanguineous drainage with 30 mL output in the last 8 hours and 130 mL output in the last 24 hours. She reports she has been up ambulating in the cardiac stepdown unit formerly [facility] pendently and tolerating well. Left chest Pleurx catheter remains in place with dressing clean dry and intact. The Pleurx catheter was last drained on Friday, October 09, 2024 with 300 mL of straw-colored fluid drained. Chest x- ray and laboratory results were reviewed. Objective - Vital Signs Vital signs: Vital Signs Temp 98.7 F 10/11/24 03:12 Pulse 76 10/11/24 03:12 Resp 16 10/11/24 03:12 BP 91/59 10/11/24 03:12 Pulse Ox 97 10/11/24 03:12 FiO2 Intake & Output 10/10/24 10/11/24 10/11/24 18:59 06:59 18:59 Intake Total 962 Output Total 60 330 Balance 902 -330 Weight 97 kg Intake: IV 20 Invasive Line 4 20 Oral 942 Output: Chest Tube Drainage 60 30 Chest Tube Mediastinal 60 30 Urine 300 Other: Voiding Method Toilet Toilet # Voids 2 1 - Exam CONSTITUTIONAL: Appears comfortable, cooperative, no acute distress RESPIRATORY: Lungs sounds diminished in the bases bilaterally. Respirations even, nonlabored. Currently on room air with oxygen saturation 97%. Able to achieve 1500 mL on incentive spirometry. Strong cough. CARDIOVASCULAR: S1, S2 present. Regular rate and rhythm, sinus rhythm on telemetry, heart rate 75 bpm. Sternum stable. Palpable peripheral pulses bilaterally. No edema present. No calf pain or tenderness noted GASTROINTESTINAL: Abdomen soft, nontender, nondistended. Active bowel sounds present 4 quadrants. Tolerating diet GENITOURINARY: Continues to void INTEGUMENTARY: Skin is warm and dry, no clubbing or cyanosis is present. NEUROLOGIC: Cranial nerves II through XII intact, no focal deficits. MUSKULOSKELETAL: Able to move all extremities, strength equal bilaterally, gait normal PSYCHIATRIC: Alert and oriented to person place and time, appropriate affect, intact judgment and insight INVASIVE LINES AND TUBES: Subxiphoid drain in place to waterseal, no airleak present, 30 mL of thin serosanguineous drainage overnight, 130 mL in the last 24 hours. Left-sided Pleurx catheter present dressing clean, dry dressing. Left-sided Pleurx catheter drained for 300 mL of thin serosanguineous drainage October 09, 2024. - Allied health notes Allied health notes reviewed: nursing - Labs CBC & Chem 7: 10/11/24 06:04 10/11/24 06:04 Labs: Abnormal Lab Results - Last 24 Hours (Table) 10/10/24 10/10/24 10/11/24 Range/Units 10:13 10:13 06:04 RBC 3.54 L (3.80-5.40) m/uL Hgb 8.9 L 9.5 L (11.4-16.0) gm/dL Hct 28.7 L 31.5 L (34.0-46.0) % MCH 24.7 L (25.0-35.0) pg MCHC 30.1 L (31.0-37.0) g/dL RDW 16.6 H 16.6 H (11.5-15.5) % Plt Count 114 L 130 L (150-450) k/uL Sodium 134 L (137-145) mmol/L BUN 5 L (7-17) mg/dL Glucose 116 H (74-99) mg/dL Calcium 7.6 L (8.4-10.2) mg/dL 10/11/24 Range/Units 06:04 RBC (3.80-5.40) m/uL Hgb (11.4-16.0) gm/dL Hct (34.0-46.0) % MCH (25.0-35.0) pg MCHC (31.0-37.0) g/dL RDW (11.5-15.5) % Plt Count (150-450) k/uL Sodium 135 L (137-145) mmol/L BUN 6 L (7-17) mg/dL Glucose 107 H (74-99) mg/dL Calcium 7.8 L (8.4-10.2) mg/dL - Imaging and Cardiology Chest x-ray: report reviewed, image reviewed Assessment and Plan Assessment: Large pericardial effusion, status post subxiphoid pericardial window Acute chest pain secondary to above Pneumopericardium, unexpected History of coronary artery disease with previous PCI and off-pump CABG x 3 on August 09, 2024 Left-sided pleural effusion status post thoracentesis x 4, status post left- sided VATS with talc pleurodesis and placement of left-sided Pleurx catheter 09/29/2024 Right-sided pleural effusion status post thoracentesis x 1 Diabetes mellitus Hypertension EtOH abuse Cirrhosis of the liver with persistent effusions Bipolar disorder/anxiety Previous tobacco dependence Marijuana use Osteoarthritis Plan: Continue current medication regimen, continue Aldactone-do not stop. Continue mediastinal chest tube to waterseal. Left Pleurx catheter can be drained by patient's . Drain for 300 mL of thin serosanguineous drainage Wednesday October 09, 2024. Increase activity as tolerated, out of bed for all meals. Ambulate in the hallway as tolerated. Encourage oral intake. Medical management of other comorbidities per internal medicine. Will continue to monitor daily chest x-rays. More recommendations to follow based on patient's clinical course. Time with Patient: Greater than 30
--- NOTE | 2024-10-11 14:19 | P.PN ---
Subjective HISTORY OF PRESENT ILLNESS: This is a 49-year-old female patient of Dr. Ogden with past medical history of hypertension, hyperlipidemia, coronary artery disease status post PCI as well as CABG in 08/2024, diabetes mellitus type 2, alcohol abuse, cirrhosis of the liver, bipolar disorder, marijuana use, prior tobacco use and dependence. We have been asked to evaluate the patient for chest pain and pericardial effusion. Following bypass surgery, patient had recurrent pleural effusions with left sided thoracentesis x 4 and also admission at [facility] for COVID. Patient does have history of left sided pleural effusion status post thoracentesis x 1, status post left-sided VATS with talc pleurodesis and placement of a left-sided Pleurx catheter on 09/29/2024. Patient woke up on Friday around 1 in the morning and she felt like she pulled a muscle in the left side of her clavicle. When she woke up later in the morning she had the same sensation but it seemed to spread to her neck the posterior shoulder and shoulder blade and under her left arm around to the left side of her chest. It hurts more when she takes a deep breath. Patient is seen today in the emergency center waiting for bed on the cardiac stepdown unit. She has been seen by cardiothoracic surgery team EKG: Sinus rhythm. Echocardiogram reveals EF of 60 to 65%, large pericardial effusion with evidence of tamponade. CTA of the chest reveals large pericardial effusion. No acute pulmonary embolism. Small pleural effusions with adjacent compressive atelectasis. Left-sided chest tube position. No pneumothorax. Laboratory studies: WBC 7.8, hemoglobin 10.2. Sodium 132, potassium 4, creatinine 0.62. Troponin negative x 3. Home cardiac medications: Aspirin 81 mg daily, atorvastatin 40 mg daily, metoprolol tartrate 25 mg 2 times daily, losartan 12.5 mg daily. October 05, 2024 Patient's echocardiogram showed large pericardial effusion which was having tamponade physiology. For this CT surgery performed pericardial window with subxiphoid drain. She is having good amount of serosanguineous discharge in it. She denies any chest pain chest pressure. She reports that shortness of breath is improved. 10/06 Patient is seen and examined. Blood pressure 95/63, heart rate 73, pulse ox 97% on room air. Limited echocardiogram performed today revealed normal LV function, small pericardial effusion. Patient states that mediastinal drain most likely is going to be removed tomorrow. 10/07 Patient is seen today on the cardiac stepdown unit. New finding on chest x-ray this morning was an enlarging pneumopericardium, interval development of air- fluid level within the anterior mediastinum. Mediastinal drain to continue at wall suction, continue Aldactone per cardiothoracic team. Blood pressure 96/63, heart rate 69, pulse ox 99% on room air. Repeat blood work reveals hemoglobin of 9.5. Sodium 134, potassium 3.9, creatinine 0.71. 10/08 Patient continues to have pneumopericardium but improvement from yesterday on chest x-ray noted. She states she has a little chest pain and numbness feeling in her chest. Mediastinal drain remains in place and to wall suction. Blood pressure 104/56, heart rate 72, pulse ox 96% on room air. Repeat blood work reveals WBC 3.7, hemoglobin 8.8, platelet count 148. Sodium 134, potassium 3.7, creatinine 0.8. 10/11/2024 Patient examined this morning at the bedside. Patient reports some pain and tenderness around her drain site. Currently denies shortness of breath. She has been using her incentive spirometer and pulling 2000 cc. Vital signs are stable. Telemetry reveals sinus mechanism. PHYSICAL EXAM: VITAL SIGNS: Reviewed. GENERAL: Well-developed in no acute distress. NECK: Supple. No JVD or thyromegaly LUNGS: Respirations even and unlabored. Lungs essentially clear to auscultation bilaterally. HEART: Regular rate and rhythm. S1 and S2 heard. EXTREMITIES: Normal range of motion. No clubbing or cyanosis. Peripheral pulses intact. No lower extremity edema ASSESSMENT: Large pericardial effusion status post subxiphoid pericardial window 10/04/2024 Pneumopericardium Coronary artery disease status post CABG and PCI History of left-sided pleural effusions status post VATS with talc pleurodesis and left-sided Pleurx catheter Tobacco use and dependence Marijuana use History of alcohol abuse Cirrhosis of the liver Hypertension Hyperlipidemia Diabetes mellitus type 2 PLAN: Continue current cardiac medications Drain management per CT surgery Increase activity as tolerated Encourage use of incentive spirometer Continue telemetry monitoring Further recommendations pending patient course Patient to follow-up postdischarge with Dr. Ogden Nurse practitioner note has been reviewed by physician. Signing provider agrees with the documented findings, assessment, and plan of care documented by BALLOON PILOT as a scribe. Objective - Vital Signs Vital signs: Vital Signs Temp 98.2 F 10/11/24 09:25 Pulse 71 10/11/24 12:00 Resp 17 10/11/24 12:00 BP 89/60 10/11/24 12:00 Pulse Ox 97 10/11/24 12:00 FiO2 Intake & Output 10/10/24 10/11/24 10/11/24 18:59 06:59 18:59 Intake Total 962 250 Output Total 60 330 Balance 902 -330 250 Weight 97 kg Intake: IV 20 Invasive Line 4 20 Oral 942 250 Output: Chest Tube Drainage 60 30 Chest Tube Mediastinal 60 30 Urine 300 Other: Voiding Method Toilet Toilet Toilet # Voids 2 1 - Labs CBC & Chem 7: 10/11/24 06:04 10/11/24 06:04 Labs: Abnormal Lab Results - Last 24 Hours (Table) 10/11/24 10/11/24 Range/Units 06:04 06:04 Hgb 9.5 L (11.4-16.0) gm/dL Hct 31.5 L (34.0-46.0) % MCH 24.7 L (25.0-35.0) pg MCHC 30.1 L (31.0-37.0) g/dL RDW 16.6 H (11.5-15.5) % Plt Count 130 L (150-450) k/uL Sodium 135 L (137-145) mmol/L BUN 6 L (7-17) mg/dL Glucose 107 H (74-99) mg/dL Calcium 7.8 L (8.4-10.2) mg/dL Microbiology - Last 24 Hours (Table) 10/04/24 14:20 Anaerobic Culture - Final Pericardial Fluid Staphylococcus pasteuri
--- NOTE | 2024-10-11 15:37 | P.PN ---
Subjective Progress Note Date: 10/11/24 49-year-old female came in with chest pain had a CT of the chest which showed pericardial effusion patient will undergo pericardial window today patient also had an echocardiogram. Patient does not have any history of congestive heart failure patient had a history of CABG three-vessel bypass which was subsequently complicated by pleural effusion underwent thoracentesis patient had pleural effusions multiple times because of which patient underwent left-sided VATS with talc pleurodesis. Patient is mildly hyponatremic proBNP is only 730 patient is also slightly tachycardic low normal blood pressures. 10/08/2024 Patient is evaluated today in follow up sitting up in bed. She is postoperative day #4 subxiphoid pericardial window. --Chest xray today shows enlarging pneumopericardium. Interval development of the air-fluid level within the anterior mediastinum. Posterior left lower lobe infiltrate. Chest tube has been placed to suction from waterseal. Patient was started on claritin and flonase yesterday and states her eye feels less swollen today. Brain CT negative for acute findings. 10/09/2024 Patient is seen and evaluated in room at her bedside on the third floor cardiac stepdown unit; patient's is present at. She is currently sitting up to the bedside chair, is awake, alert, oriented x 3 and is in no acute apparent distress. Her is present at her bedside. She reports she feels improved today, has been already walking in the cardiac stepdown unit hallway and tolerating well. -Her x-ray continues to show a small pneumopericardium, subxiphoid chest tube remains in place to waterseal, no air leak is present. Draining thin serosanguineous drainage with 40 mL output in the last 8 hours and 140 mL output in the last 24 hours. Oxygen saturations are 98% on room air and she is achieving 1500 mL on her incentive spirometry with encouragement.. 10/10/24 patient is seen and evaluated in room resting comfortably in bed; patient,s at bedside. Still has small amount of pneumopericardium still on the pericardial drain with negative suction. No reported chest pain chest pressure. Hemodynamically stable. --Continue Aspirin 81, Lipitor 40 mg, metoprolol 25 g twice daily; Farxiga 10 mg daily, Aldactone 50 mg twice daily Monitor fluid drainage from the pericardial drain. --Subxiphoid chest tube remains in place to waterseal. No air leak is present. Draining thin serosanguineous drainage with 70 mL output in the last 8 hours and 180 mL output in the last 24 hours. The patient reports her drained her left-sided Pleurx catheter yesterday for 300 mL of thin serosanguineous drainage. 10/11/2024 Patient is seen in follow-up with multiple consultations following including CT surgery and cardiology. Patient is status post Review of systems: Constitutional: No reports of fatigue, fever, or chills, reporting some anxiety Cardiovascular: No reports of chest pain or palpitations Respiratory: reports of shortness of breath with exertion GI: No reports of nausea, vomiting, or diarrhea : No reports of dysuria or retention Neurovascular: reports of generalized weakness All medications have been reviewed Active Medications Acetaminophen (Acetaminophen Tab 325 Mg Tab) 650 mg PO Q4HR PRN PRN Reason: Mild to Moderate Pain (1 - 6) Last Admin: 10/08/24 17:11 Dose: 650 mg Aspirin (Aspirin 81 Mg) 81 mg PO DAILY [facility] Last Admin: 10/11/24 09:38 Dose: 81 mg Atorvastatin Calcium (Atorvastatin 40 Mg Tab) 40 mg PO DAILY [facility] Last Admin: 10/11/24 09:38 Dose: 40 mg Dapagliflozin (Dapagliflozin Propanediol 10 Mg Tablet) 10 mg PO DAILY [facility] Last Admin: 10/11/24 09:38 Dose: 10 mg Fluticasone Propionate (Fluticasone Nasal 50mcg/[place] 16gm Btl) 2 spray EA NOSTRIL DAILY [facility] Last Admin: 10/11/24 09:39 Dose: Not Given Gabapentin (Gabapentin 300 Mg Cap) 300 mg PO HS [facility] Last Admin: 10/10/24 21:06 Dose: 300 mg Heparin Sodium (Porcine) (Heparin Sodium,Porcine 5,000 Unit/Ml 1 Ml Vial) 5,000 unit SQ Q12HR [facility] Last Admin: 10/11/24 09:38 Dose: 5,000 unit Hydromorphone HCl (Hydromorphone 0.5 Mg/0.5 Ml Syringe) 0.5 mg IVP Q3HR PRN PRN Reason: Pain Last Admin: 10/11/24 12:31 Dose: 0.5 mg Hydroxyquinoline/Petrolatum/Lanolin (Petrolat,White/Shlomo/8-Hydroxyqu 227 Gm Oint) 1 gm TOPICAL TID PRN; Protocol PRN Reason: Dry Skin Last Admin: 10/09/24 15:23 Dose: 1 gm Loratadine (Loratadine 10 Mg Tab) 5 mg PO DAILY [facility] Last Admin: 10/11/24 09:38 Dose: 5 mg Metoprolol Tartrate (Metoprolol Tartrate 25 Mg Tab) 25 mg PO BID [facility] Last Admin: 10/11/24 09:38 Dose: 25 mg Naloxone HCl (Naloxone 0.4 Mg/Ml 1 Ml Vial) 0.2 mg IV Q2M PRN PRN Reason: Opioid Reversal Ondansetron HCl (Ondansetron 4 Mg/2 Ml Vial) 4 mg IVP Q6HR PRN PRN Reason: Nausea And Vomiting Last Admin: 10/09/24 11:14 Dose: 4 mg Pantoprazole Sodium (Pantoprazole 40 Mg Tablet) 40 mg PO AC-BRKFST [facility] Last Admin: 10/11/24 06:06 Dose: 40 mg Senna/Docusate Sodium (Sennosides-Docusate Sodium 1 Each Tab) 2 each PO HS [facility] Last Admin: 10/10/24 21:05 Dose: 2 each Sodium Chloride (Sodium Chloride 0.9% Flush 10 Ml Syringe) 10 ml IV BID [facility] Last Admin: 10/11/24 09:39 Dose: 10 ml Spironolactone (Spironolactone 25 Mg Tab) 100 mg PO BID@0600,1500 [facility] Last Admin: 10/11/24 06:06 Dose: 100 mg Physical exam: GENERAL: The patient is alert and oriented x3, not in any acute distress. Well developed, well nourished. Obese HEENT: Pupils are round and equally reacting to light. EOMI. No scleral icterus. No conjunctival pallor. Normocephalic, atraumatic. No pharyngeal erythema. No thyromegaly. CARDIOVASCULAR: S1 and S2 muffled PULMONARY: Diminished breath sounds bilaterally otherwise chest is clear to auscultation, no wheezing or crackles. ABDOMEN: Soft, obese nontender, nondistended, normoactive bowel sounds. No palpable organomegaly. MUSCULOSKELETAL: No joint swelling or deformity. EXTREMITIES: No cyanosis, clubbing, or pedal edema. NEUROLOGICAL: Gross neurological examination did not reveal any focal deficits. As mentioned in the HPI. SKIN: No rashes. Assessment: -Large left-sided pericardial effusion postoperative subxiphoid pericardial window done on 10/04/2024 -Developed pneumopericardium -Left-sided pleural effusion with prior VATS with talc pleurodesis, thoracentesis x 4, and left-sided Pleurx catheter placed on September 29 -right sided pleural effusion s/p thoracentesis x 1 -CABG on aug 09 2024, with normal ejection fraction no congestive heart failure -Mild hypovolemic hyponatremia gentle hydration repeat electrolytes -History of alcohol abuse -Liver cirrhosis history -Type 2 diabetes mellitus -Hypertension -Hyperlipidemia -Former smoker -THC use -Obesity with a BMI 37.9 GI prophylaxis DVT prophylaxis: Early ambulation Full Code Plan: Continue chest tube tubes and monitor fluid drainage from the pericardial drain. Mediastinal chest tube to waterseal per CT surgery. Patient continues on colchicine and Farxiga was added. Cardiology along with CT surgery following. Repeat chest x-ray today shows pneumopericardium similar to previous study with minimal left pleural effusion. Patient is room air on exam. Encouraged increase activity as tolerated and continued incentive spirometer use at least 10 times every hour while awake Appropriate home medications reviewed and resumed Will discuss with CT surgery along with cardiology once cleared for discharge Due to multiple complex medical issues, overall prognosis is guarded The impression and plan of care has been dictated by Jessica Rendon, Nurse Practitioner as directed. Dr. Polo MD I have performed a history and examination and MDM of this patient, discussed the same with the dictator, and agree with the dictator's assessment and plan as written ,documented as a scribe. Based on total visit time, I have performed more than 50% of the visit. Objective - Vital Signs Vital signs: Vital Signs Temp 98.2 F 10/11/24 09:25 Pulse 71 10/11/24 12:00 Resp 17 10/11/24 12:00 BP 89/60 10/11/24 12:00 Pulse Ox 97 10/11/24 12:00 FiO2 Intake & Output 10/10/24 10/11/24 10/11/24 18:59 06:59 18:59 Intake Total 962 250 Output Total 60 330 Balance 902 -330 250 Weight 97 kg Intake: IV 20 Invasive Line 4 20 Oral 942 250 Output: Chest Tube Drainage 60 30 Chest Tube Mediastinal 60 30 Urine 300 Other: Voiding Method Toilet Toilet Toilet # Voids 2 1 - Labs CBC & Chem 7: 10/11/24 06:04 10/11/24 06:04 Labs: Abnormal Lab Results - Last 24 Hours (Table) 10/11/24 10/11/24 Range/Units 06:04 06:04 Hgb 9.5 L (11.4-16.0) gm/dL Hct 31.5 L (34.0-46.0) % MCH 24.7 L (25.0-35.0) pg MCHC 30.1 L (31.0-37.0) g/dL RDW 16.6 H (11.5-15.5) % Plt Count 130 L (150-450) k/uL Sodium 135 L (137-145) mmol/L BUN 6 L (7-17) mg/dL Glucose 107 H (74-99) mg/dL Calcium 7.8 L (8.4-10.2) mg/dL Microbiology - Last 24 Hours (Table) 10/04/24 14:20 Anaerobic Culture - Final Pericardial Fluid Staphylococcus pasteuri
--- NOTE | 2024-10-12 09:52 | P.PN ---
Subjective Progress Note Date: 10/12/24 Principal diagnosis: Large pericardial effusion. Past medical history significant for coronary artery disease with previous PCI and off-pump CABG x 3 on August 09, 2024, left-sided pleural effusion status post thoracentesis x 4, status post left- sided VATS with talc pleurodesis and placement of left-sided Pleurx catheter 09/29/2024, right-sided pleural effusion status post thoracentesis x 1, diabetes mellitus, hypertension, EtOH abuse, cirrhosis of the liver, bipolar disor meg/anxiety, previous tobacco dependence, marijuana use, osteoarthritis POD #8 subxiphoid pericardial window with removal of 600 mL yellow serous fluid The Patient was seen and examined in follow-up today October 12, 2024 at her bedside on the third floor cardiac stepdown unit. The patient is currently sitting up to bedside chair, is awake, alert, oriented x 3 and is in no acute apparent distress. She denies any complaints of shortness of breath at this time, although is complaining of some pain to her left shoulder. Oxygen saturations are 96% on room air and she is achieving 1500 mL on her incentive spirometry with encouragement. Subxiphoid chest tube remains in place to waterseal. No air leak is present. Draining thin serosanguineous drainage with 30 mL output in the last 8 hours and 70 mL output in the last 24 hours. She reports she has been up ambulating in the cardiac stepdown unit hallway independently and tolerating well. Left chest Pleurx catheter remains in place with dressing clean dry and intact. The Pleurx catheter was last drained on Friday, October 09, 2024 with 300 mL of straw-colored fluid drained. Chest x- ray results were reviewed. Objective - Vital Signs Vital signs: Vital Signs Temp 98.1 F 10/12/24 07:32 Pulse 77 10/12/24 08:58 Resp 17 10/12/24 08:58 BP 99/64 10/12/24 08:58 Pulse Ox 95 10/12/24 08:58 FiO2 Intake & Output 10/11/24 10/12/24 10/12/24 18:59 06:59 18:59 Intake Total 1250 Output Total 30 740 30 Balance 1220 -740 -30 Weight 97.2 kg Intake: Oral 1250 Output: Chest Tube Drainage 30 40 30 Chest Tube Mediastinal 30 40 30 Urine 700 Other: Voiding Method Toilet Toilet Toilet - Exam CONSTITUTIONAL: Appears comfortable, cooperative, no acute distress RESPIRATORY: Lungs sounds diminished in the bases bilaterally. Respirations symmetrical, nonlabored. Currently on room air with oxygen saturation 96%. Able to achieve 1500 mL on her incentive spirometry. Strong cough. CARDIOVASCULAR: S1, S2 present. Regular rate and rhythm, sinus rhythm on telemetry, heart rate 73 bpm. Palpable peripheral pulses bilaterally. No edema present. No calf pain or tenderness noted GASTROINTESTINAL: Abdomen soft, nontender, nondistended. Active bowel sounds present 4 quadrants. Tolerating diet GENITOURINARY: Continues to void. INTEGUMENTARY: Skin is warm and dry, no clubbing or cyanosis is present. NEUROLOGIC: Cranial nerves II through XII intact, no focal deficits. MUSKULOSKELETAL: Able to move all extremities, strength equal bilaterally, gait normal. PSYCHIATRIC: Alert and oriented to person place and time, appropriate affect, intact judgment and insight. INVASIVE LINES AND TUBES: Subxiphoid drain in place to waterseal, no airleak present, 30 mL of thin serosanguineous drainage overnight, 70 mL in the last 24 hours. Left-sided Pleurx catheter present dressing clean, dry dressing. Left- sided Pleurx catheter drained for 300 mL of thin serosanguineous drainage October 09, 2024. - Allied health notes Allied health notes reviewed: nursing - Labs CBC & Chem 7: 10/11/24 06:04 10/11/24 06:04 Labs: Microbiology - Last 24 Hours (Table) 10/04/24 14:20 Anaerobic Culture - Final Pericardial Fluid Staphylococcus pasteuri - Imaging and Cardiology Chest x-ray: report reviewed, image reviewed Assessment and Plan Assessment: Large pericardial effusion, status post subxiphoid pericardial window Acute chest pain secondary to above Pneumopericardium, unexpected History of coronary artery disease with previous PCI and off-pump CABG x 3 on August 09, 2024 Left-sided pleural effusion status post thoracentesis x 4, status post left- sided VATS with talc pleurodesis and placement of left-sided Pleurx catheter 09/29/2024 Right-sided pleural effusion status post thoracentesis x 1 Diabetes mellitus Hypertension EtOH abuse Cirrhosis of the liver with persistent effusions Bipolar disorder/anxiety Previous tobacco dependence Marijuana use Osteoarthritis Plan: Continue current medication regimen, continue Aldactone-do not stop. Continue mediastinal chest tube to waterseal. Continue to monitor chest x-ray very for resolution of pneumopericardium. Left Pleurx catheter can be drained by patient's . Drained for 300 mL of thin serosanguineous drainage Wednesday October 09, 2024. Increase activity as tolerated, out of bed for all meals. Ambulate in the hallway as tolerated. Encourage oral intake. Medical management of other comorbidities per internal medicine. Will continue to monitor daily chest x-rays. More recommendations to follow based on patient's clinical course. Time with Patient: Less than 30
--- NOTE | 2024-10-12 10:58 | XR ---
EXAMINATION TYPE: XR chest 2V DATE OF EXAM: 10/12/2024 6:33 AM COMPARISON: 10/11/2024 CLINICAL INDICATION: Female, 49 years old with history of post op pericardial window, TECHNIQUE: XR chest 2V view(s) obtained. FINDINGS: The heart size is normal. PneumoPericardium remains prominent. Air-fluid levels are again evident The pulmonary vasculature is normal. The lungs are clear. Left-sided chest normal. Left pericardial catheter is stable IMPRESSION: 1. Pneumopericardium. 2. Left-sided catheters are stable in position [facility], , 10/12/2024 10:56 AM
--- NOTE | 2024-10-12 12:23 | P.PN ---
Subjective HISTORY OF PRESENT ILLNESS: This is a 49-year-old female patient of Dr. Ogden with past medical history of hypertension, hyperlipidemia, coronary artery disease status post PCI as well as CABG in 08/2024, diabetes mellitus type 2, alcohol abuse, cirrhosis of the liver, bipolar disorder, marijuana use, prior tobacco use and dependence. We have been asked to evaluate the patient for chest pain and pericardial effusion. Following bypass surgery, patient had recurrent pleural effusions with left sided thoracentesis x 4 and also admission at [facility] for COVID. Patient does have history of left sided pleural effusion status post thoracentesis x 1, status post left-sided VATS with talc pleurodesis and placement of a left-sided Pleurx catheter on 09/29/2024. Patient woke up on Friday around 1 in the morning and she felt like she pulled a muscle in the left side of her clavicle. When she woke up later in the morning she had the same sensation but it seemed to spread to her neck the posterior shoulder and shoulder blade and under her left arm around to the left side of her chest. It hurts more when she takes a deep breath. Patient is seen today in the emergency center waiting for bed on the cardiac stepdown unit. She has been seen by cardiothoracic surgery team EKG: Sinus rhythm. Echocardiogram reveals EF of 60 to 65%, large pericardial effusion with evidence of tamponade. CTA of the chest reveals large pericardial effusion. No acute pulmonary embolism. Small pleural effusions with adjacent compressive atelectasis. Left-sided chest tube position. No pneumothorax. Laboratory studies: WBC 7.8, hemoglobin 10.2. Sodium 132, potassium 4, creatinine 0.62. Troponin negative x 3. Home cardiac medications: Aspirin 81 mg daily, atorvastatin 40 mg daily, metoprolol tartrate 25 mg 2 times daily, losartan 12.5 mg daily. October 05, 2024 Patient's echocardiogram showed large pericardial effusion which was having tamponade physiology. For this CT surgery performed pericardial window with subxiphoid drain. She is having good amount of serosanguineous discharge in it. She denies any chest pain chest pressure. She reports that shortness of breath is improved. 10/06 Patient is seen and examined. Blood pressure 95/63, heart rate 73, pulse ox 97% on room air. Limited echocardiogram performed today revealed normal LV function, small pericardial effusion. Patient states that mediastinal drain most likely is going to be removed tomorrow. 10/07 Patient is seen today on the cardiac stepdown unit. New finding on chest x-ray this morning was an enlarging pneumopericardium, interval development of air- fluid level within the anterior mediastinum. Mediastinal drain to continue at wall suction, continue Aldactone per cardiothoracic team. Blood pressure 96/63, heart rate 69, pulse ox 99% on room air. Repeat blood work reveals hemoglobin of 9.5. Sodium 134, potassium 3.9, creatinine 0.71. 10/08 Patient continues to have pneumopericardium but improvement from yesterday on chest x-ray noted. She states she has a little chest pain and numbness feeling in her chest. Mediastinal drain remains in place and to wall suction. Blood pressure 104/56, heart rate 72, pulse ox 96% on room air. Repeat blood work reveals WBC 3.7, hemoglobin 8.8, platelet count 148. Sodium 134, potassium 3.7, creatinine 0.8. 10/11/2024 Patient examined this morning at the bedside. Patient reports some pain and tenderness around her drain site. Currently denies shortness of breath. She has been using her incentive spirometer and pulling 2000 cc. Vital signs are stable. Telemetry reveals sinus mechanism. 10/12/2024 Patient examined this morning at the bedside. Patient continues to report some discomfort and tenderness around her drain site. She currently denies shortness of breath. Telemetry reveals sinus mechanism. Patient's vital signs are stable. Chest x-ray this morning reveals pneumopericardium and left-sided catheters in stable position. PHYSICAL EXAM: VITAL SIGNS: Reviewed. GENERAL: Well-developed in no acute distress. NECK: Supple. No JVD or thyromegaly LUNGS: Respirations even and unlabored. Lungs essentially clear to auscultation bilaterally. HEART: Regular rate and rhythm. S1 and S2 heard. EXTREMITIES: Normal range of motion. No clubbing or cyanosis. Peripheral pulses intact. No lower extremity edema ASSESSMENT: Large pericardial effusion status post subxiphoid pericardial window 10/04/2024 Pneumopericardium Coronary artery disease status post CABG and PCI History of left-sided pleural effusions status post VATS with talc pleurodesis and left-sided Pleurx catheter Tobacco use and dependence Marijuana use History of alcohol abuse Cirrhosis of the liver Hypertension Hyperlipidemia Diabetes mellitus type 2 PLAN: Continue current cardiac medications Drain management per CT surgery Increase activity as tolerated Encourage use of incentive spirometer Continue telemetry monitoring Further recommendations pending patient course Patient to follow-up postdischarge with Dr. Ogden Nurse practitioner note has been reviewed by physician. Signing provider agrees with the documented findings, assessment, and plan of care documented by ACCOUNTING LECTURER as a scribe. Objective - Vital Signs Vital signs: Vital Signs Temp 98.3 F 10/12/24 10:55 Pulse 74 10/12/24 10:55 Resp 17 10/12/24 08:58 BP 104/71 10/12/24 10:55 Pulse Ox 97 10/12/24 10:55 FiO2 Intake & Output 10/11/24 10/12/24 10/12/24 18:59 06:59 18:59 Intake Total 1250 Output Total 30 740 30 Balance 1220 -740 -30 Weight 97.2 kg Intake: Oral 1250 Output: Chest Tube Drainage 30 40 30 Chest Tube Mediastinal 30 40 30 Urine 700 Other: Voiding Method Toilet Toilet Toilet # Voids 2 - Labs CBC & Chem 7: 10/11/24 06:04 10/11/24 06:04 Labs: Microbiology - Last 24 Hours (Table) 10/04/24 14:20 Anaerobic Culture - Final Pericardial Fluid Staphylococcus pasteuri
[2024-10-12] MEDS ORDERED: DEXTROSE 50% SYRINGE 50 ML IVP PRN ×2 (14:10)
[2024-10-12] MEDS ORDERED: RX INFO: IV CONTRAST WAS GIVEN 1 EACH MISC MISCELLANE PRN (14:13)
[2024-10-12] MEDS: methylPREDNISolone SOD SUCCI 125 MG/2 ML VIAL IV SCH (14:39)
[2024-10-12] MEDS: IOPAMIDOL CONTRAST (ORAL USE) VIAL PO PRN (16:04)
[2024-10-12 17:11] LABS: Glucose,Whole Blood 119 mg/dL (70-110)
[2024-10-12] MEDS: INSULIN ASPART (NovoLOG) 100 UNIT/ML VIAL SQ SCH (17:14)
[2024-10-12] MEDS: FUROSEMIDE 10 MG/ML 4 ML VIAL IV SCH (18:14)
--- NOTE | 2024-10-12 18:21 | CT ---
EXAMINATION TYPE: CT ChestAbdPelvis w con DATE OF EXAM: 10/12/2024 6:00 PM COMPARISON: 10/12/2024. CLINICAL INDICATION: Female, 49 years old with history of pericardial effusion, nichole window; PHH, per icardial effusion Technique: CT ChestAbdPelvis w con; Multiple axial images were obtained. Two-dimensional coronal and sagittal reconstructions were obtained. Contrast used:100 mL of Isovue 300 with IV Contrast, (None if empty) Oral contrast used: with Oral Contrast CT DLP: 1702 mGycm, Automated exposure control for dose reduction was used. Findings: CHEST: LUNGS/ PLEURA: Small to moderate left pleural effusion associated atelectasis. No focal consolidation , pneumothorax or right pleural effusion. Left thoracotomy tube with pigtail tip terminating in the s uperior chest. AIRWAY: Patent and unremarkable. HEART: Heart is mildly enlarged for size. There is air-fluid levels in the pericardial space. Just to terminating along the coursing along the anterior horn terminating in the left lateral aspect of the mediastinum. Left atrial appendage occlusion device present. Moderate to severe coronary artery athe rosclerosis. MEDIASTINUM: No gross evidence of adenopathy. VASCULATURE: No aortic aneurysm. MUSCULOSKELETAL: No acute osseous abnormalities. Sternotomy wires present. SOFT TISSUES/LYMPH NODES: Unremarkable. LOWER NECK: No significant findings. ABDOMEN: ABDOMEN LIVER: Nodular contour to liver. GALLBLADDER AND BILE DUCTS: The gallbladder is absent. PANCREAS: Unremarkable. SPLEEN: Unremarkable. ADRENAL GLANDS: Unremarkable. KIDNEYS AND URETERS: Nonobstructing bilateral renal calculi. No evidence for obstructive uropathy. PELVIS BLADDER: Unremarkable REPRODUCTIVE: Unremarkable. ABDOMEN & PELVIS STOMACH AND BOWEL: No evidence of bowel obstruction. PERITONEUM/RETROPERITONEUM: No evidence of pneumoperitoneum. Trace free fluid in the pelvis. VASCULATURE: Moderate atherosclerotic calcifications are present throughout the abdominal aorta and i ts branches. No evidence of aortic aneurysm. MUSCULOSKELETAL: No acute osseous abnormalities LYMPH NODES: No gross evidence for lymphadenopathy. SOFT TISSUE/ABDOMINAL WALL: Unremarkable IMPRESSION: 1. Mild cardiomegaly with mediastinal drainage tube in place. There is air-fluid levels surrounding the heart. Correlate for drainage tube malfunction. 2. Left thoracotomy tube tip terminating in the superior pleural space. 3. Small to moderate left pleural effusion. 4. Nodular contour to liver correlate for cirrhosis. 5. Bilateral nonobstructing renal calculi. [facility], , 10/12/2024 6:18 PM
[2024-10-12 20:46] LABS: Glucose,Whole Blood 223 mg/dL (70-110)
[2024-10-12] MEDS: METOPROLOL TARTRATE 12.5 MG TAB PO SCH (21:16)
[2024-10-13 06:24] LABS: Glucose,Whole Blood 175 mg/dL (70-110)
--- NOTE | 2024-10-13 07:30 | XR ---
EXAMINATION TYPE: XR chest 1V portable DATE OF EXAM: 10/13/2024 6:51 AM COMPARISON: None. CLINICAL INDICATION: Female, 49 years old with history of s/p pericardial window, TECHNIQUE: XR chest 1V portable view(s) obtained. FINDINGS: The heart size is normal. Pneumopericardium remains present. Chest tube in the base of the thorax in the left hemithorax remain present. The pulmonary vasculature is normal. The lungs are clear. Small left pleural effusion is present. IMPRESSION: 1. Pneumopericardium. 2. Previous air-fluid levels not evident on the current exam. 3 small left pleural effusion [facility], , 10/13/2024 7:28 AM
[2024-10-13 07:32] LABS: ALT 21 U/L (4-34); AST 30 U/L (14-36); African American GFR (CKD) 88 (>60 ml/min/1.73 sqM); Albumin 2.7 g/dL (3.5-5.0); Alkaline Phosphatase 103 U/L (38-126); Anion Gap 9 mmol/L; Blood Urea Nitrogen 11 mg/dL (7-17); Calcium 8.3 mg/dL (8.4-10.2); Carbon Dioxide 23 mmol/L (22-30); Chloride 100 mmol/L (98-107); Glucose 170 mg/dL (74-99); Non-African American GFR(CKD) 76 (>60 ml/min/1.73 sqM); Potassium 4.4 mmol/L (3.5-5.1); Sodium 132 mmol/L (137-145); Total Bilirubin 1.1 mg/dL (0.2-1.3); Total Protein 5.8 g/dL (6.3-8.2)
--- NOTE | 2024-10-13 08:30 | P.PN ---
Subjective Progress Note Date: 10/13/24 Principal diagnosis: Large pericardial effusion. History of coronary artery disease with previous PCI and off-pump CABG x 3 on August 09, 2024, left-sided pleural effusion status post thoracentesis x 4, status post left-sided VATS with talc pleurodesis and placement of left-sided Pleurx catheter 09/29/2024, right-sided pleural effusion status post thoracentesis x 1, diabetes mellitus, hypertension, EtOH abuse, cirrhosis of the liver, bipolar disorder/anxiety, previous tobacco dependence, marijuana use, osteoarthritis POD #9 subxiphoid pericardial window with removal of 600 mL yellow serous fluid Pneumopericardium, unknown cause The patient was seen and examined this morning sitting up in recliner on the cardiac stepdown unit in no acute distress eating breakfast with present at bedside. Remains in sinus rhythm, hemodynamically stable. She remains on ro om air with oxygen saturation in the high 90s. Mediastinal drain present to waterseal, 10 mL output overnight, 60 mL in the last 24 hours. States her breathing feels stable, she has her appetite back. Chest x-ray reviewed this morning. Patient has been ambulatory without difficulty. No other new concerns. Objective - Vital Signs Vital signs: Vital Signs Temp 97.6 F 10/13/24 07:23 Pulse 72 10/13/24 07:23 Resp 18 10/13/24 04:48 BP 103/68 10/13/24 07:23 Pulse Ox 97 10/13/24 07:23 FiO2 Intake & Output 10/12/24 10/13/24 10/13/24 18:59 06:59 18:59 Intake Total 240 Output Total 850 1610 Balance -850 -1610 240 Weight 96.6 kg Intake: Oral 240 Output: Chest Tube Drainage 50 10 Chest Tube Mediastinal 50 10 Urine 800 1600 Other: Voiding Method Toilet Toilet # Voids 2 1 - Exam CONSTITUTIONAL: Appears comfortable, cooperative, no acute distress RESPIRATORY: Lungs sounds diminished in the bases bilaterally. Respirations even, nonlabored. Currently on room air with oxygen saturation 94%. Able to achieve 2500 mL on incentive spirometry. Strong cough. CARDIOVASCULAR: S1, S2 present. Regular rate and rhythm, sinus rhythm on telemetry. Sternum stable. Palpable peripheral pulses bilaterally. No edema present. No calf pain or tenderness noted GASTROINTESTINAL: Abdomen soft, nontender, nondistended. Active bowel sounds present 4 quadrants. Tolerating diet GENITOURINARY: Continues to void INTEGUMENTARY: Skin is warm and dry NEUROLOGIC: Cranial nerves II through XII intact MUSKULOSKELETAL: Able to move all extremities, strength equal bilaterally, gait normal PSYCHIATRIC: Alert and oriented to person place and time, appropriate affect, intact judgment and insight INVASIVE LINES AND TUBES: Mediastinal drain to waterseal, no airleak present, 10 mL serosanguineous drainage overnight, 60 mL in the last 24 hours. Left-sided Pleurx catheter present under clean dry dressing - Allied health notes Allied health notes reviewed: nursing - Labs CBC & Chem 7: 10/11/24 06:04 10/13/24 06:45 Labs: Abnormal Lab Results - Last 24 Hours (Table) 10/12/24 10/12/24 10/12/24 Range/Units 16:01 17:09 20:45 Sodium (137-145) mmol/L Glucose (74-99) mg/dL POC Glucose (mg/dL) 119 H 223 H (70-110) mg/dL Uric Acid 2.9 L (3.7-7.4) mg/dL Calcium (8.4-10.2) mg/dL Total Protein (6.3-8.2) g/dL Albumin (3.5-5.0) g/dL 10/13/24 10/13/24 Range/Units 06:20 06:45 Sodium 132 L (137-145) mmol/L Glucose 170 H (74-99) mg/dL POC Glucose (mg/dL) 175 H (70-110) mg/dL Uric Acid (3.7-7.4) mg/dL Calcium 8.3 L (8.4-10.2) mg/dL Total Protein 5.8 L (6.3-8.2) g/dL Albumin 2.7 L (3.5-5.0) g/dL - Imaging and Cardiology Chest x-ray: image reviewed CT scan - abdomen: report reviewed, image reviewed CT scan - chest: report reviewed, image reviewed CT scan - pelvis: report reviewed, image reviewed Assessment and Plan Assessment: Large pericardial effusion, status post subxiphoid pericardial window Acute chest pain secondary to above Pneumopericardium, unexpected History of coronary artery disease with previous PCI and off-pump CABG x 3 on August 09, 2024 Left-sided pleural effusion status post thoracentesis x 4, status post left- sided VATS with talc pleurodesis and placement of left-sided Pleurx catheter 09/29/2024 Right-sided pleural effusion status post thoracentesis x 1 Diabetes mellitus Hypertension EtOH abuse Cirrhosis of the liver with persistent effusions Bipolar disorder/anxiety Previous tobacco dependence Marijuana use Osteoarthritis Plan: Continue current medication regimen, continue Aldactone Will discontinue mediastinal drain Patient's to drain pleurx catheter when necessary Increase activity, ambulate as tolerated Encourage oral intake Medical management of other comorbidities per internal medicine More recommendations to follow
--- NOTE | 2024-10-13 08:54 | P.PN ---
Subjective Progress Note Date: 10/12/24 49-year-old female came in with chest pain had a CT of the chest which showed pericardial effusion patient will undergo pericardial window today patient also had an echocardiogram. Patient does not have any history of congestive heart failure patient had a history of CABG three-vessel bypass which was subsequently complicated by pleural effusion underwent thoracentesis patient had pleural effusions multiple times because of which patient underwent left-sided VATS with talc pleurodesis. Patient is mildly hyponatremic proBNP is only 730 patient is also slightly tachycardic low normal blood pressures. 10/08/2024 Patient is evaluated today in follow up sitting up in bed. She is postoperative day #4 subxiphoid pericardial window. --Chest xray today shows enlarging pneumopericardium. Interval development of the air-fluid level within the anterior mediastinum. Posterior left lower lobe infiltrate. Chest tube has been placed to suction from waterseal. Patient was started on claritin and flonase yesterday and states her eye feels less swollen today. Brain CT negative for acute findings. 10/09/2024 Patient is seen and evaluated in room at her bedside on the third floor cardiac stepdown unit; patient's is present at. She is currently sitting up to the bedside chair, is awake, alert, oriented x 3 and is in no acute apparent distress. Her is present at her bedside. She reports she feels improved today, has been already walking in the cardiac stepdown unit hallway and tolerating well. -Her x-ray continues to show a small pneumopericardium, subxiphoid chest tube remains in place to waterseal, no air leak is present. Draining thin serosanguineous drainage with 40 mL output in the last 8 hours and 140 mL output in the last 24 hours. Oxygen saturations are 98% on room air and she is achieving 1500 mL on her incentive spirometry with encouragement.. 10/10/24 patient is seen and evaluated in room resting comfortably in bed; patient,s at bedside. Still has small amount of pneumopericardium still on the pericardial drain with negative suction. No reported chest pain chest pressure. Hemodynamically stable. --Continue Aspirin 81, Lipitor 40 mg, metoprolol 25 g twice daily; Farxiga 10 mg daily, Aldactone 50 mg twice daily Monitor fluid drainage from the pericardial drain. --Subxiphoid chest tube remains in place to waterseal. No air leak is present. Draining thin serosanguineous drainage with 70 mL output in the last 8 hours and 180 mL output in the last 24 hours. The patient reports her drained her left-sided Pleurx catheter yesterday for 300 mL of thin serosanguineous drainage. 10/12/2024 Patient is seen in follow-up with multiple consultations following including CT surgery and cardiology. Patient continues with air noted on x-ray imaging and there is no air leak present noted on chest tube and continues to waterseal. CT surgery following and patient denies worsening shortness of breath. Patient is on room air with oxygen saturations above 92%. Patient encouraged to get up more frequently and walk multiple times throughout the day. Will add Lasix and also initiate steroids and monitor closely. Accu-Cheks being added and will continue with sliding scale. Review of systems: Constitutional: No reports of fatigue, fever, or chills, reporting some anxiety Cardiovascular: No reports of chest pain or palpitations Respiratory: reports of shortness of breath with exertion although no worsening shortness of breath GI: No reports of nausea, vomiting, or diarrhea : No reports of dysuria or retention Neurovascular: reports of generalized weakness All medications have been reviewed Physical exam: GENERAL: The patient is alert and oriented x3, not in any acute distress. Well developed, well nourished. Obese HEENT: Pupils are round and equally reacting to light. EOMI. No scleral icterus. No conjunctival pallor. Normocephalic, atraumatic. No pharyngeal erythema. No thyromegaly. CARDIOVASCULAR: S1 and S2 muffled PULMONARY: Diminished breath sounds bilaterally otherwise chest is clear to auscultation, no wheezing or crackles. Chest tube persists to waterseal ABDOMEN: Soft, obese nontender, nondistended, normoactive bowel sounds. No palpable organomegaly. MUSCULOSKELETAL: No joint swelling or deformity. EXTREMITIES: No cyanosis, clubbing, or pedal edema. NEUROLOGICAL: Gross neurological examination did not reveal any focal deficits. As mentioned in the HPI. SKIN: No rashes. Assessment: -Large left-sided pericardial effusion postoperative subxiphoid pericardial window done on 10/04/2024 -Developed pneumopericardium -Left-sided pleural effusion with prior VATS with talc pleurodesis, thoracentesis x 4, and left-sided Pleurx catheter placed on September 29 -right sided pleural effusion s/p thoracentesis x 1 -CABG on aug 09 2024, with normal ejection fraction no congestive heart failure -Mild hypovolemic hyponatremia gentle hydration repeat electrolytes -History of alcohol abuse -Liver cirrhosis history -Type 2 diabetes mellitus -Hypertension -Hyperlipidemia -Former smoker -THC use -Obesity with a BMI 37.9 GI prophylaxis DVT prophylaxis: Early ambulation Full Code Plan: Continue chest tube tubes and monitor fluid drainage from the pericardial drain. Mediastinal chest tube to waterseal per CT surgery. Patient continues on Farxiga was added. Attempted colchicine multiple times and patient does not tolerate. Will attempt IV steroids as well as IV Lasix. Follow-up on repeat labs and monitor kidney functions closely Will add Accu-Cheks along with sliding scale due to steroids and patient does h ave borderline diabetes history. Cardiology along with CT surgery following. Repeat chest x-ray today shows pneumopericardium similar to previous study with minimal left pleural effusion. Patient is room air on exam. Encouraged increase activity as tolerated and continued incentive spirometer use at least 10 times every hour while awake Appropriate home medications reviewed and resumed Will discuss with CT surgery along with cardiology once cleared for discharge Due to multiple complex medical issues, overall prognosis is guarded The impression and plan of care has been dictated by Jessica Rendon, Nurse Practitioner as directed. Dr. Polo MD I have performed a history and examination and MDM of this patient, discussed the same with the dictator, and agree with the dictator's assessment and plan as written ,documented as a scribe. Based on total visit time, I have performed more than 50% of the visit. Objective - Vital Signs Vital signs: Vital Signs Temp 98.1 F 10/12/24 07:32 Pulse 77 10/12/24 08:58 Resp 17 10/12/24 08:58 BP 99/64 10/12/24 08:58 Pulse Ox 95 10/12/24 08:58 FiO2 Intake & Output 10/11/24 10/12/24 10/12/24 18:59 06:59 18:59 Intake Total 1250 Output Total 30 740 Balance 1220 -740 Weight 97.2 kg Intake: Oral 1250 Output: Chest Tube Drainage 30 40 Chest Tube Mediastinal 30 40 Urine 700 Other: Voiding Method Toilet Toilet - Labs CBC & Chem 7: 10/11/24 06:04 10/13/24 06:45 Labs: Microbiology - Last 24 Hours (Table) 10/04/24 14:20 Anaerobic Culture - Final Pericardial Fluid Staphylococcus pasteuri
[2024-10-13 11:14] LABS: Glucose,Whole Blood 198 mg/dL (70-110)
--- NOTE | 2024-10-13 13:12 | P.PN ---
Subjective HISTORY OF PRESENT ILLNESS: This is a 49-year-old female patient of Dr. Ogden with past medical history of hypertension, hyperlipidemia, coronary artery disease status post PCI as well as CABG in 08/2024, diabetes mellitus type 2, alcohol abuse, cirrhosis of the liver, bipolar disorder, marijuana use, prior tobacco use and dependence. We have been asked to evaluate the patient for chest pain and pericardial effusion. Following bypass surgery, patient had recurrent pleural effusions with left sided thoracentesis x 4 and also admission at [facility] for COVID. Patient does have history of left sided pleural effusion status post thoracentesis x 1, status post left-sided VATS with talc pleurodesis and placement of a left-sided Pleurx catheter on 09/29/2024. Patient woke up on Friday around 1 in the morning and she felt like she pulled a muscle in the left side of her clavicle. When she woke up later in the morning she had the same sensation but it seemed to spread to her neck the posterior shoulder and shoulder blade and under her left arm around to the left side of her chest. It hurts more when she takes a deep breath. Patient is seen today in the emergency center waiting for bed on the cardiac stepdown unit. She has been seen by cardiothoracic surgery team EKG: Sinus rhythm. Echocardiogram reveals EF of 60 to 65%, large pericardial effusion with evidence of tamponade. CTA of the chest reveals large pericardial effusion. No acute pulmonary embolism. Small pleural effusions with adjacent compressive atelectasis. Left-sided chest tube position. No pneumothorax. Laboratory studies: WBC 7.8, hemoglobin 10.2. Sodium 132, potassium 4, creatinine 0.62. Troponin negative x 3. Home cardiac medications: Aspirin 81 mg daily, atorvastatin 40 mg daily, metoprolol tartrate 25 mg 2 times daily, losartan 12.5 mg daily. October 05, 2024 Patient's echocardiogram showed large pericardial effusion which was having tamponade physiology. For this CT surgery performed pericardial window with subxiphoid drain. She is having good amount of serosanguineous discharge in it. She denies any chest pain chest pressure. She reports that shortness of breath is improved. 10/06 Patient is seen and examined. Blood pressure 95/63, heart rate 73, pulse ox 97% on room air. Limited echocardiogram performed today revealed normal LV function, small pericardial effusion. Patient states that mediastinal drain most likely is going to be removed tomorrow. 10/07 Patient is seen today on the cardiac stepdown unit. New finding on chest x-ray this morning was an enlarging pneumopericardium, interval development of air- fluid level within the anterior mediastinum. Mediastinal drain to continue at wall suction, continue Aldactone per cardiothoracic team. Blood pressure 96/63, heart rate 69, pulse ox 99% on room air. Repeat blood work reveals hemoglobin of 9.5. Sodium 134, potassium 3.9, creatinine 0.71. 10/08 Patient continues to have pneumopericardium but improvement from yesterday on chest x-ray noted. She states she has a little chest pain and numbness feeling in her chest. Mediastinal drain remains in place and to wall suction. Blood pressure 104/56, heart rate 72, pulse ox 96% on room air. Repeat blood work reveals WBC 3.7, hemoglobin 8.8, platelet count 148. Sodium 134, potassium 3.7, creatinine 0.8. 10/11/2024 Patient examined this morning at the bedside. Patient reports some pain and tenderness around her drain site. Currently denies shortness of breath. She has been using her incentive spirometer and pulling 2000 cc. Vital signs are stable. Telemetry reveals sinus mechanism. 10/12/2024 Patient examined this morning at the bedside. Patient continues to report some discomfort and tenderness around her drain site. She currently denies shortness of breath. Telemetry reveals sinus mechanism. Patient's vital signs are stable. Chest x-ray this morning reveals pneumopericardium and left-sided catheters in stable position. 10/13/2024 Patient examined this morning at the bedside. Patient's is present. Patient currently denies any chest pain or pressure. She denies shortness of breath. She continues to report some pain around her drain site. She states that she was seen by CT surgery this morning with plans to remove the catheter sometime today. She does report that her drained a small amount of fluid from her catheter this morning. Vital signs are stable. Echocardiogram completed revealing pneumopericardium, previous air-fluid levels not evident on current exam. Small left pleural effusion. PHYSICAL EXAM: VITAL SIGNS: Reviewed. GENERAL: Well-developed in no acute distress. NECK: Supple. No JVD or thyromegaly LUNGS: Respirations even and unlabored. Lungs essentially clear to auscultation bilaterally. HEART: Regular rate and rhythm. S1 and S2 heard. EXTREMITIES: Normal range of motion. No clubbing or cyanosis. Peripheral pulses intact. No lower extremity edema ASSESSMENT: Large pericardial effusion status post subxiphoid pericardial window 10/04/2024 Pneumopericardium Coronary artery disease status post CABG and PCI History of left-sided pleural effusions status post VATS with talc pleurodesis and left-sided Pleurx catheter Tobacco use and dependence Marijuana use History of alcohol abuse Cirrhosis of the liver Hypertension Hyperlipidemia Diabetes mellitus type 2 PLAN: Continue current cardiac medications Drain management per CT surgery Increase activity as tolerated Encourage use of incentive spirometer Continue telemetry monitoring Further recommendations pending patient course Patient to follow-up postdischarge with Dr. Ogden Nurse practitioner note has been reviewed by physician. Signing provider agrees with the documented findings, assessment, and plan of care documented by OUTSIDE PLANT CABLE ENGINEER as a scribe. Objective - Vital Signs Vital signs: Vital Signs Temp 98.4 F 10/13/24 10:55 Pulse 70 10/13/24 10:55 Resp 18 10/13/24 08:00 BP 91/61 10/13/24 10:55 Pulse Ox 95 10/13/24 10:55 FiO2 Intake & Output 10/12/24 10/13/24 10/13/24 18:59 06:59 18:59 Intake Total 240 Output Total 850 1610 Balance -850 -1610 240 Weight 96.6 kg Intake: Oral 240 Output: Chest Tube Drainage 50 10 Chest Tube Mediastinal 50 10 Urine 800 1600 Other: Voiding Method Toilet Toilet Toilet # Voids 2 1 - Labs CBC & Chem 7: 10/11/24 06:04 10/13/24 06:45 Labs: Abnormal Lab Results - Last 24 Hours (Table) 10/12/24 10/12/24 10/12/24 Range/Units 16:01 17:09 20:45 Sodium (137-145) mmol/L Glucose (74-99) mg/dL POC Glucose (mg/dL) 119 H 223 H (70-110) mg/dL Uric Acid 2.9 L (3.7-7.4) mg/dL Calcium (8.4-10.2) mg/dL Total Protein (6.3-8.2) g/dL Albumin (3.5-5.0) g/dL 10/13/24 10/13/24 10/13/24 Range/Units 06:20 06:45 11:09 Sodium 132 L (137-145) mmol/L Glucose 170 H (74-99) mg/dL POC Glucose (mg/dL) 175 H 198 H (70-110) mg/dL Uric Acid (3.7-7.4) mg/dL Calcium 8.3 L (8.4-10.2) mg/dL Total Protein 5.8 L (6.3-8.2) g/dL Albumin 2.7 L (3.5-5.0) g/dL
[2024-10-13 16:18] LABS: Glucose,Whole Blood 251 mg/dL (70-110)
[2024-10-13] MEDS: FUROSEMIDE 10 MG/ML 4 ML VIAL IV SCH (17:08)
[2024-10-13 21:35] LABS: Glucose,Whole Blood 219 mg/dL (70-110)
[2024-10-14 03:53] VITALS: RESP 16
--- NOTE | 2024-10-14 05:58 | P.PN ---
Subjective Progress Note Date: 10/13/24 49-year-old female came in with chest pain had a CT of the chest which showed pericardial effusion patient will undergo pericardial window today patient also had an echocardiogram. Patient does not have any history of congestive heart failure patient had a history of CABG three-vessel bypass which was subsequently complicated by pleural effusion underwent thoracentesis patient had pleural effusions multiple times because of which patient underwent left-sided VATS with talc pleurodesis. Patient is mildly hyponatremic proBNP is only 730 patient is also slightly tachycardic low normal blood pressures. 10/08/2024 Patient is evaluated today in follow up sitting up in bed. She is postoperative day #4 subxiphoid pericardial window. --Chest xray today shows enlarging pneumopericardium. Interval development of the air-fluid level within the anterior mediastinum. Posterior left lower lobe infiltrate. Chest tube has been placed to suction from waterseal. Patient was started on claritin and flonase yesterday and states her eye feels less swollen today. Brain CT negative for acute findings. 10/09/2024 Patient is seen and evaluated in room at her bedside on the third floor cardiac stepdown unit; patient's is present at. She is currently sitting up to the bedside chair, is awake, alert, oriented x 3 and is in no acute apparent distress. Her is present at her bedside. She reports she feels improved today, has been already walking in the cardiac stepdown unit hallway and tolerating well. -Her x-ray continues to show a small pneumopericardium, subxiphoid chest tube remains in place to waterseal, no air leak is present. Draining thin serosanguineous drainage with 40 mL output in the last 8 hours and 140 mL output in the last 24 hours. Oxygen saturations are 98% on room air and she is achieving 1500 mL on her incentive spirometry with encouragement.. 10/10/24 patient is seen and evaluated in room resting comfortably in bed; patient,s at bedside. Still has small amount of pneumopericardium still on the pericardial drain with negative suction. No reported chest pain chest pressure. Hemodynamically stable. --Continue Aspirin 81, Lipitor 40 mg, metoprolol 25 g twice daily; Farxiga 10 mg daily, Aldactone 50 mg twice daily Monitor fluid drainage from the pericardial drain. --Subxiphoid chest tube remains in place to waterseal. No air leak is present. Draining thin serosanguineous drainage with 70 mL output in the last 8 hours and 180 mL output in the last 24 hours. The patient reports her drained her left-sided Pleurx catheter yesterday for 300 mL of thin serosanguineous drainage. 10/12/2024 Patient is seen in follow-up with multiple consultations following including CT surgery and cardiology. Patient continues with air noted on x-ray imaging and there is no air leak present noted on chest tube and continues to waterseal. CT surgery following and patient denies worsening shortness of breath. Patient is on room air with oxygen saturations above 92%. Patient encouraged to get up more frequently and walk multiple times throughout the day. Will add Lasix and also initiate steroids and monitor closely. Accu-Cheks being added and will continue with sliding scale. 10/13/2024 Patient is seen in follow-up today with no acute overnight issues noted. Chest x-ray showing some improvement with CT surgery following and discussing removing mediastinal tube. Patient does continue with Pleurx which can be drained by family. Patient plans on returning home on discharge. Patient has been up and walking and tolerating and reports to feeling improved. Will continue IV steroids and a quick taper on discharge as well as IV Lasix. Follow-up on re peat labs to monitor kidney functions closely. Review of systems: Constitutional: No reports of fatigue, fever, or chills, reporting less anxiety Cardiovascular: No reports of chest pain or palpitations Respiratory: reports of shortness of breath with exertion although no worsening shortness of breath, feels is improving GI: No reports of nausea, vomiting, or diarrhea : No reports of dysuria or retention Neurovascular: reports of generalized weakness All medications have been reviewed Physical exam: GENERAL: The patient is alert and oriented x3, not in any acute distress. Well developed, well nourished. Obese HEENT: Pupils are round and equally reacting to light. EOMI. No scleral icterus. No conjunctival pallor. Normocephalic, atraumatic. No pharyngeal erythema. No thyromegaly. CARDIOVASCULAR: S1 and S2 muffled PULMONARY: Diminished breath sounds bilaterally otherwise chest is clear to auscultation, no wheezing or crackles. Chest tube persists to waterseal ABDOMEN: Soft, obese nontender, nondistended, normoactive bowel sounds. No palpable organomegaly. MUSCULOSKELETAL: No joint swelling or deformity. EXTREMITIES: No cyanosis, clubbing, or pedal edema. NEUROLOGICAL: Gross neurological examination did not reveal any focal deficits. As mentioned in the HPI. SKIN: No rashes. Assessment: -Large left-sided pericardial effusion postoperative subxiphoid pericardial win nikolay done on 10/04/2024 -Developed pneumopericardium -Left-sided pleural effusion with prior VATS with talc pleurodesis, thoracentesis x 4, and left-sided Pleurx catheter placed on September 29 -right sided pleural effusion s/p thoracentesis x 1 -CABG on aug 09 2024, with normal ejection fraction no congestive heart failure -Mild hypovolemic hyponatremia gentle hydration repeat electrolytes -History of alcohol abuse -Liver cirrhosis history -Type 2 diabetes mellitus -Hypertension -Hyperlipidemia -Former smoker -THC use -Obesity with a BMI 37.9 GI prophylaxis DVT prophylaxis: Early ambulation Full Code Plan: Continue chest tube tubes and monitor fluid drainage from the pericardial drain. Mediastinal chest tube may be removed per CT surgery. Chest x-ray showing some improvements. Patient continues on Farxiga and Aldactone and will continue. Attempted colchicine multiple times and patient does not tolerate. Continue IV steroids as well as IV Lasix. Kidney functions are stable and will repeat a.m. labs. Quick steroid taper on discharge as well as Lasix Will continue Accu-Cheks along with sliding scale due to steroids and patient does have borderline diabetes history. Cardiology along with CT surgery following. Repeat chest x-ray today shows some improvements and per patient CT surgery discussing removing mediastinal tube. Encouraged incentive spirometer use. Patient remains on room air Encouraged increase activity as tolerated Appropriate home medications reviewed and resumed Will discuss with CT surgery along with cardiology once cleared for discharge Due to multiple complex medical issues, overall prognosis is guarded The impression and plan of care has been dictated by Jessica Rendon, Nurse Practitioner as directed. Dr. Polo MD I have performed a history and examination and MDM of this patient, discussed the same with the dictator, and agree with the dictator's assessment and plan as written ,documented as a scribe. Based on total visit time, I have performed more than 50% of the visit. Objective - Vital Signs Vital signs: Vital Signs Temp 97.6 F 10/13/24 07:23 Pulse 72 10/13/24 07:23 Resp 18 10/13/24 04:48 BP 103/68 10/13/24 07:23 Pulse Ox 97 10/13/24 07:23 FiO2 Intake & Output 10/12/24 10/13/24 10/13/24 18:59 06:59 18:59 Intake Total 240 Output Total 850 1610 Balance -850 -1610 240 Weight 96.6 kg Intake: Oral 240 Output: Chest Tube Drainage 50 10 Chest Tube Mediastinal 50 10 Urine 800 1600 Other: Voiding Method Toilet Toilet # Voids 2 1 - Labs CBC & Chem 7: 10/11/24 06:04 10/13/24 06:45 Labs: Abnormal Lab Results - Last 24 Hours (Table) 10/12/24 10/12/24 10/12/24 Range/Units 16:01 17:09 20:45 Sodium (137-145) mmol/L Glucose (74-99) mg/dL POC Glucose (mg/dL) 119 H 223 H (70-110) mg/dL Uric Acid 2.9 L (3.7-7.4) mg/dL Calcium (8.4-10.2) mg/dL Total Protein (6.3-8.2) g/dL Albumin (3.5-5.0) g/dL 10/13/24 10/13/24 Range/Units 06:20 06:45 Sodium 132 L (137-145) mmol/L Glucose 170 H (74-99) mg/dL POC Glucose (mg/dL) 175 H (70-110) mg/dL Uric Acid (3.7-7.4) mg/dL Calcium 8.3 L (8.4-10.2) mg/dL Total Protein 5.8 L (6.3-8.2) g/dL Albumin 2.7 L (3.5-5.0) g/dL
[2024-10-14 06:18] LABS: Glucose,Whole Blood 192 mg/dL (70-110)
--- NOTE | 2024-10-14 07:48 | XR ---
EXAMINATION TYPE: XR chest 2V DATE OF EXAM: 10/14/2024 6:30 AM COMPARISON: None. CLINICAL INDICATION: Female, 49 years old with history of removal of chest tube, TECHNIQUE: XR chest 2V view(s) obtained. FINDINGS: The heart size is normal. Pneumopericardium remains stable. Multiple air-fluid levels are evident. T he inferior pericardial chest tube has been removed. Left-sided chest tube remains present. No pneumo thorax evident. The pulmonary vasculature is normal. The lungs are clear. IMPRESSION: 1. Multiple air-fluid levels within the pneumopericardium. Drainage tubes been removed. [facility], , 10/14/2024 7:46 AM
[2024-10-14] MEDS: CEPHALEXIN 500 MG CAP PO SCH (08:02)
[2024-10-14 08:37] LABS: African American GFR (CKD) 80 (>60 ml/min/1.73 sqM); Anion Gap 8 mmol/L; Blood Urea Nitrogen 18 mg/dL (7-17); Calcium 8.4 mg/dL (8.4-10.2); Carbon Dioxide 28 mmol/L (22-30); Chloride 99 mmol/L (98-107); Glucose 156 mg/dL (74-99); Magnesium 1.8 mg/dL (1.6-2.3); Non-African American GFR(CKD) 70 (>60 ml/min/1.73 sqM); Potassium 4.1 mmol/L (3.5-5.1); Sodium 135 mmol/L (137-145)
[2024-10-14 11:14] VITALS: BP 97/62; PULSE 65; TEMP 98.2
[2024-10-14 11:52] LABS: Glucose,Whole Blood 195 mg/dL (70-110)
--- NOTE | 2024-10-14 12:55 | P.PN ---
Subjective HISTORY OF PRESENT ILLNESS: This is a 49-year-old female patient of Dr. Ogden with past medical history of hypertension, hyperlipidemia, coronary artery disease status post PCI as well as CABG in 08/2024, diabetes mellitus type 2, alcohol abuse, cirrhosis of the liver, bipolar disorder, marijuana use, prior tobacco use and dependence. We have been asked to evaluate the patient for chest pain and pericardial effusion. Following bypass surgery, patient had recurrent pleural effusions with left sided thoracentesis x 4 and also admission at [facility] for COVID. Patient does have history of left sided pleural effusion status post thoracentesis x 1, status post left-sided VATS with talc pleurodesis and placement of a left-sided Pleurx catheter on 09/29/2024. Patient woke up on Friday around 1 in the morning and she felt like she pulled a muscle in the left side of her clavicle. When she woke up later in the morning she had the same sensation but it seemed to spread to her neck the posterior shoulder and shoulder blade and under her left arm around to the left side of her chest. It hurts more when she takes a deep breath. Patient is seen today in the emergency center waiting for bed on the cardiac stepdown unit. She has been seen by cardiothoracic surgery team EKG: Sinus rhythm. Echocardiogram reveals EF of 60 to 65%, large pericardial effusion with evidence of tamponade. CTA of the chest reveals large pericardial effusion. No acute pulmonary embolism. Small pleural effusions with adjacent compressive atelectasis. Left-sided chest tube position. No pneumothorax. Laboratory studies: WBC 7.8, hemoglobin 10.2. Sodium 132, potassium 4, creatinine 0.62. Troponin negative x 3. Home cardiac medications: Aspirin 81 mg daily, atorvastatin 40 mg daily, metoprolol tartrate 25 mg 2 times daily, losartan 12.5 mg daily. October 05, 2024 Patient's echocardiogram showed large pericardial effusion which was having tamponade physiology. For this CT surgery performed pericardial window with subxiphoid drain. She is having good amount of serosanguineous discharge in it. She denies any chest pain chest pressure. She reports that shortness of breath is improved. 10/06 Patient is seen and examined. Blood pressure 95/63, heart rate 73, pulse ox 97% on room air. Limited echocardiogram performed today revealed normal LV function, small pericardial effusion. Patient states that mediastinal drain most likely is going to be removed tomorrow. 10/07 Patient is seen today on the cardiac stepdown unit. New finding on chest x-ray this morning was an enlarging pneumopericardium, interval development of air- fluid level within the anterior mediastinum. Mediastinal drain to continue at wall suction, continue Aldactone per cardiothoracic team. Blood pressure 96/63, heart rate 69, pulse ox 99% on room air. Repeat blood work reveals hemoglobin of 9.5. Sodium 134, potassium 3.9, creatinine 0.71. 10/08 Patient continues to have pneumopericardium but improvement from yesterday on chest x-ray noted. She states she has a little chest pain and numbness feeling in her chest. Mediastinal drain remains in place and to wall suction. Blood pressure 104/56, heart rate 72, pulse ox 96% on room air. Repeat blood work reveals WBC 3.7, hemoglobin 8.8, platelet count 148. Sodium 134, potassium 3.7, creatinine 0.8. 10/11/2024 Patient examined this morning at the bedside. Patient reports some pain and tenderness around her drain site. Currently denies shortness of breath. She has been using her incentive spirometer and pulling 2000 cc. Vital signs are stable. Telemetry reveals sinus mechanism. 10/12/2024 Patient examined this morning at the bedside. Patient continues to report some discomfort and tenderness around her drain site. She currently denies shortness of breath. Telemetry reveals sinus mechanism. Patient's vital signs are stable. Chest x-ray this morning reveals pneumopericardium and left-sided catheters in stable position. 10/13/2024 Patient examined this morning at the bedside. Patient's is present. Patient currently denies any chest pain or pressure. She denies shortness of breath. She continues to report some pain around her drain site. She states that she was seen by CT surgery this morning with plans to remove the catheter sometime today. She does report that her drained a small amount of fluid from her catheter this morning. Vital signs are stable. Echocardiogram completed revealing pneumopericardium, previous air-fluid levels not evident on current exam. Small left pleural effusion. 10/14/2024 Patient examined this morning at the bedside. Patient's drain has been removed by CT surgery. Patient denies any chest pain or pressure. She denies any shortness of breath. She has been up ambulating in her room. Vital signs are stable. PHYSICAL EXAM: VITAL SIGNS: Reviewed. GENERAL: Well-developed in no acute distress. NECK: Supple. No JVD or thyromegaly LUNGS: Respirations even and unlabored. Lungs essentially clear to auscultation bilaterally. HEART: Regular rate and rhythm. S1 and S2 heard. EXTREMITIES: Normal range of motion. No clubbing or cyanosis. Peripheral pulses intact. No lower extremity edema ASSESSMENT: Large pericardial effusion status post subxiphoid pericardial window 10/04/2024 Pneumopericardium Coronary artery disease status post CABG and PCI History of left-sided pleural effusions status post VATS with talc pleurodesis and left-sided Pleurx catheter Tobacco use and dependence Marijuana use History of alcohol abuse Cirrhosis of the liver Hypertension Hyperlipidemia Diabetes mellitus type 2 PLAN: Continue current cardiac medications Increase activity as tolerated Encourage use of incentive spirometer Continue telemetry monitoring Further recommendations pending patient course Patient to follow-up postdischarge with Dr. Ogden Nurse practitioner note has been reviewed by physician. Signing provider agrees with the documented findings, assessment, and plan of care documented by WILDFIRE PREVENTION SPECIALIST as a scribe. Objective - Vital Signs Vital signs: Vital Signs Temp 98.2 F 10/14/24 11:00 Pulse 65 10/14/24 11:00 Resp 16 10/14/24 11:00 BP 97/62 10/14/24 11:00 Pulse Ox 99 10/14/24 11:00 FiO2 Intake & Output 10/13/24 10/14/24 10/14/24 18:59 06:59 18:59 Intake Total 462 40 Output Total 2100 700 800 Balance -8190 -578 -800 Weight 96.1 kg Intake: IV 40 Invasive Line 5 40 Oral 462 Output: Chest Tube Drainage 0 Chest Tube Mediastinal 0 Urine 2100 700 800 Other: Voiding Method Toilet Toilet Toilet - Labs CBC & Chem 7: 10/11/24 06:04 10/14/24 07:26 Labs: Abnormal Lab Results - Last 24 Hours (Table) 10/13/24 10/13/24 10/14/24 Range/Units 16:17 21:28 06:16 Sodium (137-145) mmol/L BUN (7-17) mg/dL Glucose (74-99) mg/dL POC Glucose (mg/dL) 251 H 219 H 192 H (70-110) mg/dL 10/14/24 10/14/24 Range/Units 07:26 11:49 Sodium 135 L (137-145) mmol/L BUN 18 H (7-17) mg/dL Glucose 156 H (74-99) mg/dL POC Glucose (mg/dL) 195 H (70-110) mg/dL
--- NOTE | 2024-10-14 15:09 | P.PN ---
Subjective Progress Note Date: 10/14/24 Principal diagnosis: Large pericardial effusion. History of coronary artery disease with previous PCI and off-pump CABG x 3 on August 09, 2024, left-sided pleural effusion status post thoracentesis x 4, status post left-sided VATS with talc pleurodesis and placement of left-sided Pleurx catheter 09/29/2024, right-sided pleural effusion status post thoracentesis x 1, diabetes mellitus, hypertension, EtOH abuse, cirrhosis of the liver, bipolar disorder/anxiety, previous tobacco dependence, marijuana use, osteoarthritis POD #10 subxiphoid pericardial window with removal of 600 mL yellow serous fluid Pneumopericardium, unknown cause The patient was seen and examined this morning sitting up in recliner on the cardiac stepdown unit in no acute distress eating breakfast. Remains in sinus rhythm, hemodynamically stable. She remains on room air with oxygen saturation in the high 90s. Mediastinal drain was discontinued yesterday. Patient's recurrent breast abscess is back, when this recurs patient is usually on Keflex and Bactrim by Dr. Familia Mendez, however drug drug interaction noted with Bactrim and Aldactone so only prescribed Keflex. States her breathing feels stable. Chest x-ray reviewed this morning. Patient has been ambulatory without difficulty. No other new concerns. Objective - Vital Signs Vital signs: Vital Signs Temp 98.2 F 10/14/24 11:00 Pulse 65 10/14/24 11:00 Resp 16 10/14/24 11:00 BP 97/62 10/14/24 11:00 Pulse Ox 99 10/14/24 11:00 FiO2 Intake & Output 10/13/24 10/14/24 10/14/24 18:59 06:59 18:59 Intake Total 462 40 240 Output Total 2100 700 800 Balance -1638 -660 -560 Weight 96.1 kg Intake: IV 40 Invasive Line 5 40 Oral 462 240 Output: Chest Tube Drainage 0 Chest Tube Mediastinal 0 Urine 2100 700 800 Other: Voiding Method Toilet Toilet Toilet - Exam CONSTITUTIONAL: Appears comfortable, cooperative, no acute distress RESPIRATORY: Lungs sounds diminished in the bases bilaterally. Respirations even, nonlabored. Currently on room air with oxygen saturation 99%. Able to achieve 2500 mL on incentive spirometry. Strong cough. CARDIOVASCULAR: S1, S2 present. Regular rate and rhythm, sinus rhythm on telemetry. Sternum stable. Palpable peripheral pulses bilaterally. No edema present. No calf pain or tenderness noted GASTROINTESTINAL: Abdomen soft, nontender, nondistended. Active bowel sounds present 4 quadrants. Tolerating diet GENITOURINARY: Continues to void INTEGUMENTARY: Skin is warm and dry. Breast abscess present. Surgical chest tube incision site with yellow slough tissue, expected, not infected NEUROLOGIC: Cranial nerves II through XII intact MUSKULOSKELETAL: Able to move all extremities, strength equal bilaterally, gait normal PSYCHIATRIC: Alert and oriented to person place and time, appropriate affect, intact judgment and insight - Allied health notes Allied health notes reviewed: nursing - Labs CBC & Chem 7: 10/11/24 06:04 10/14/24 07:26 Labs: Abnormal Lab Results - Last 24 Hours (Table) 10/13/24 10/13/24 10/14/24 Range/Units 16:17 21:28 06:16 Sodium (137-145) mmol/L BUN (7-17) mg/dL Glucose (74-99) mg/dL POC Glucose (mg/dL) 251 H 219 H 192 H (70-110) mg/dL 10/14/24 10/14/24 Range/Units 07:26 11:49 Sodium 135 L (137-145) mmol/L BUN 18 H (7-17) mg/dL Glucose 156 H (74-99) mg/dL POC Glucose (mg/dL) 195 H (70-110) mg/dL - Imaging and Cardiology Chest x-ray: report reviewed, image reviewed Assessment and Plan Assessment: Large pericardial effusion, status post subxiphoid pericardial window Acute chest pain secondary to above Pneumopericardium, unexpected History of coronary artery disease with previous PCI and off-pump CABG x 3 on August 09, 2024 Left-sided pleural effusion status post thoracentesis x 4, status post left- sided VATS with talc pleurodesis and placement of left-sided Pleurx catheter 1 Right-sided pleural effusion status post thoracentesis x 1 Diabetes mellitus Hypertension EtOH abuse Cirrhosis of the liver with persistent effusions Bipolar disorder/anxiety Previous tobacco dependence Marijuana use Osteoarthritis Plan: Continue current medication regimen, continue Aldactone Recommend discontinuing IV narcotics Patient's to drain pleurx catheter when necessary Increase activity, ambulate as tolerated Encourage oral intake Medical management of other comorbidities per internal medicine Patient stable for discharge to home from cardiothoracic surgery standpoint More recommendations to follow
--- NOTE | 2024-10-15 10:25 | P.DS ---
Providers Date of admission: 10/03/24 16:26 Expected date of discharge: 10/14/24 Attending physician: Jim Napoles Consults: 10/03/24 16:21 Consult Physician Urgent Consulting Provider: Ricky Aragon Consult Reason/Comments: Pericardial effusion Do you want consulting provider notified?: Already Contacted 10/03/24 16:26 Consult Physician Urgent Consulting Provider: Yoandy Holly Consult Reason/Comments: pericardial effusion, chest pain Do you want consulting provider notified?: Yes Primary care physician: Yaniv Lala MD Hospital Course: Final diagnosis -Large left-sided pericardial effusion postoperative subxiphoid pericardial window done on 10/04/2024 -Developed pneumopericardium -Left-sided pleural effusion with prior VATS with talc pleurodesis, thoracentes is x 4, and left-sided Pleurx catheter placed on September 29 -right sided pleural effusion s/p thoracentesis x 1 -CABG on aug 09 2024, with normal ejection fraction no congestive heart failure -Mild hypovolemic hyponatremia gentle hydration repeat electrolytes, improved -History of alcohol abuse -Right breast recurrent abscess, chronic, placed on Keflex as she normally takes Bactrim although drug interactions with Aldactone and patient is to remain on Aldactone per surgery -Liver cirrhosis history -Type 2 diabetes mellitus -Hypertension -Hyperlipidemia -Former smoker -THC use -Obesity with a BMI 37.9 GI prophylaxis DVT prophylaxis: Early ambulation Full Code Discharge disposition Patient is being discharged in a stable condition with guarded prognosis to home. Patient will follow-up with Dr. Lala in the outpatient setting upon discharge. Patient is to continue with current medications and also oral Keflex 4 times daily for the next 5 days. Recommend outpatient follow-up with cardiology as well as CT surgery as scheduled. Total time taken is greater than 35 minutes. Hospital course This is a 49-year-old female who was recently admitted with large left-sided pericardial effusion status post subxiphoid pericardial window on 10/04/2024 with a developed pneumopericardium. Patient with bilateral pleural effusion has undergone multiple thoracentesis including prior VATS with talc pleurodesis and has a Pleurx catheter on the left. Patient did have chest tubes and maintained on IV Lasix along with steroids showing some improvement. Patient chest tube was removed and patient is stable on room air and will continue IV Lasix along with Aldactone per CT surgery and close outpatient follow-up. Family able to drain the Pleurx as needed. Patient also with a chronic recurrent breast abscess on the right areola area has opened and has been started on Keflex. Will continue a 5-day course and recommend outpatient follow-up with primary care provider this week. Follow-up labs including CBC, CMP in the outpatient setting in the next 2 to 3 days. Patient should follow with CT surgery and cardiology this week. Please refer to other consultation notes for further HPI. Patient will continue a quick prednisone taper as well. Currently no reports of chest pain, shortness of breath, or palpitations. Patient is afebrile. No reports of nausea or vomiting and patient is tolerating diet. Patient will be discharged home today. Guarded prognosis and high risk for readmissions given significant comorbidities Physical exam: Gen: This is a 49-year-old female who is awake, alert and oriented x 3, well- developed, obese HEENT: Head is atraumatic, normocephalic. Pupils equal, round. Sclerae is anicteric. NECK: Supple. No JVD. No lymphadenopathy. No thyromegaly. LUNGS: Diminished breath sounds bilaterally otherwise clear to auscultation. No wheezes or rhonchi. No intercostal retractions. HEART: S1, S2 are muffled ABDOMEN: Soft. Obese bowel sounds are present. No masses. No tenderness. EXTREMITIES: No pedal edema. No calf tenderness. NEUROLOGICAL: Patient is awake, alert and oriented x3. Cranial nerves 2 through 12 are grossly intact. Please refer to medication reconciliation sheet for a list of medications. The impression and plan of care has been dictated by Jessica Rendon, Nurse Practitioner as directed. Dr. Polo MD I have performed a history and examination and MDM of this patient, discussed the same with the dictator, and agree with the dictator's assessment and plan as written ,documented as a scribe. Based on total visit time, I have performed more than 50% of the visit. Patient Condition at Discharge: Stable Plan - Discharge Summary Discharge Rx Participant: No New Discharge Prescriptions: New Petrolat,White/Shlomo/8-Hydroxyqu [Bag [place]] 1 gm TOPICAL TID PRN gm PRN Reason: Dry Skin Dapagliflozin Propanediol [Farxiga] 10 mg PO DAILY #30 tab predniSONE See Taper PO DIRECTED #30 tab Spironolactone [Aldactone] 100 mg PO BID@0600,1500 30 Days #320 tab Loratadine [Claritin] 5 mg PO DAILY #30 tab Fluticasone Nasal [place] [Flonase Nasal [place]] 2 spray EA NOSTRIL DAILY #5 ml Cephalexin [Keflex] 500 mg PO QID 5 Days #20 cap Furosemide [Lasix] 40 mg PO BID #60 tablet Metoprolol Tartrate [Lopressor] 12.5 mg PO BID #60 tab Pantoprazole [Protonix] 40 mg PO AC-BRKFST #30 tab Sennosides-Docusate Sodium [Senokot-S] 2 each PO HS #60 tab Continue Gabapentin [Neurontin] 300 mg PO HS Aspirin 81 mg PO DAILY tab Acetaminophen Tab [Tylenol] 650 mg PO Q4HR PRN tab PRN Reason: Mild To Moderate Pain (1 - 6) Losartan [Cozaar] 12.5 mg PO DAILY PRN PRN Reason: Blood Pressure - High Atorvastatin Calcium [Lipitor] 40 mg PO DAILY Ondansetron Odt [Zofran ODT] 4 mg PO Q8HR PRN #20 tab PRN Reason: Nausea Discontinued Metoprolol Tartrate [Lopressor] 25 mg PO BID #60 tab Discharge Medication List Atorvastatin Calcium [Lipitor] 40 mg PO DAILY 09/15/24 [History] Gabapentin [Neurontin] 300 mg PO HS 09/23/24 [History] Acetaminophen Tab [Tylenol] 650 mg PO Q4HR PRN tab 10/01/24 [Rx] Aspirin 81 mg PO DAILY tab 10/01/24 [Rx] Losartan [Cozaar] 12.5 mg PO DAILY PRN 10/03/24 [History] Cephalexin [Keflex] 500 mg PO QID 5 Days #20 cap 10/14/24 [Rx] Dapagliflozin Propanediol [Farxiga] 10 mg PO DAILY #30 tab 10/14/24 [Rx] Fluticasone Nasal [place] [Flonase Nasal [place]] 2 spray EA NOSTRIL DAILY #5 ml 10/14/24 [Rx] Furosemide [Lasix] 40 mg PO BID #60 tablet 10/14/24 [Rx] Loratadine [Claritin] 5 mg PO DAILY #30 tab 10/14/24 [Rx] Metoprolol Tartrate [Lopressor] 12.5 mg PO BID #60 tab 10/14/24 [Rx] Ondansetron Odt [Zofran ODT] 4 mg PO Q8HR PRN #20 tab 10/14/24 [Rx] Pantoprazole [Protonix] 40 mg PO AC-BRKFST #30 tab 10/14/24 [Rx] Petrolat,White/Shlomo/8-Hydroxyqu [Bag [place]] 1 gm TOPICAL TID PRN gm 10/14/24 [Rx] Sennosides-Docusate Sodium [Senokot-S] 2 each PO HS #60 tab 10/14/24 [Rx] Spironolactone [Aldactone] 100 mg PO BID@0600,1500 30 Days #320 tab 10/14/24 [Rx] predniSONE See Taper PO DIRECTED #30 tab 10/14/24 [Rx] Follow up Appointment(s)/Referral(s): Yaniv Lala MD [Primary Care Provider] - 10/19/24 3:00 pm [facility] [REFERRING] - Jared Ogden DO [STAFF PHYSICIAN] - 1 Week Ambulatory/Diagnostic Orders: Complete Blood Count w/diff [LAB.AMB] Time Frame: 3 Days, Location: None Selected Patient Instructions/Handouts: Pericardial Effusion (DC) Activity/Diet/Wound Care/Special Instructions: Activity limited until follow-up Follow-up with primary care provider Continue with antibiotics and other medications as prescribed Follow-up cardiothoracic surgery as scheduled Follow-up with cardiology outpatient as scheduled Continue with fluid restrictions of 45 cc daily including all drinks Repeat labs in 2 to 3 days to monitor kidney functions Discharge/Stand Alone Forms: Who Do I Call?, Community Resources, Personal Certified Ophthalmic Technician Discharge Disposition: HOME SELF-CARE
== END 2024-10-14 16:30 | disposition home or self-care (01) | DRG 271 ==
LOC: EC 13:51 → 3SCARD 16:26
PROVIDERS: ADMIT Internal Medicine; ATTEND Internal Medicine
PROC: B24BZZ4 Ultrasonography of Heart with Aorta, Transesophageal (ICD-10-PCS; 2024-10-04)
PROC: 0W9D00Z Drainage of Pericardial Cavity with Drainage Device, Open Approach (ICD-10-PCS; principal; 2024-10-04 11:50)
DX: I31.39 Other pericardial effusion (noninflammatory) (principal); E87.1 Hypo-osmolality and hyponatremia; J90 Pleural effusion, not elsewhere classified; J98.11 Atelectasis; I97.89 Other postprocedural complications and disorders of the circulatory system, not elsewhere classified; I31.9 Disease of pericardium, unspecified; I31.4 Cardiac tamponade; K74.60 Unspecified cirrhosis of liver; E86.1 Hypovolemia; F31.9 Bipolar disorder, unspecified; F41.9 Anxiety disorder, unspecified; I10 Essential (primary) hypertension; I25.10 Atherosclerotic heart disease of native coronary artery without angina pectoris; E66.9 Obesity, unspecified; Z68.37 Body mass index [BMI] 37.0-37.9, adult; E11.9 Type 2 diabetes mellitus without complications; F10.11 Alcohol abuse, in remission; E78.5 Hyperlipidemia, unspecified; F12.90 Cannabis use, unspecified, uncomplicated; M19.90 Unspecified osteoarthritis, unspecified site; N61.1 Abscess of the breast and nipple; F32.A Depression, unspecified; Z79.82 Long term (current) use of aspirin; Z79.899 Other long term (current) drug therapy; Z86.16 Personal history of COVID-19; Z87.01 Personal history of pneumonia (recurrent); Z87.442 Personal history of urinary calculi; Z87.891 Personal history of nicotine dependence; Z95.1 Presence of aortocoronary bypass graft; Z79.84 Long term (current) use of oral hypoglycemic drugs
CPT/HCPCS: 36415; 70450; 71045; 71046; 71260; 71275; 74177; 80048; 80053; 81025; 82945; 83036; 83615; 83735; 83880; 84157; 84484; 84550; 84703; 85025; 85027; 85610; 85652; 85730; 86140; 86850; 86900; 86901; 87070; 87075; 87077; 87116; 87186; 87205; 87206; 88108; 88305; 89050; 93005; 93308; 94760; 96361; 96374; 96375; 96376; 99291

== ENCOUNTER 2024-10-19 04:23 | Inpatient (IN) | payer OTHER ==
[2024-10-19] MEDS: SODIUM CHLORIDE 0.9% 1,000 ML IV STA (05:13)
[2024-10-19] MEDS: ONDANSETRON 4 MG/2 ML VIAL IVP STA (05:14)
--- NOTE | 2024-10-19 05:21 | ED ---
General Adult HPI - General Source: patient Mode of arrival: wheelchair Limitations: no limitations <Ortiz Mariano - Last Filed: 10/19/24 07:24> <Golden Batres - Last Filed: 10/19/24 08:03> - General Chief complaint: Nausea/Vomiting/Diarrhea Stated complaint: NVD Time Seen by Provider: 10/19/24 04:29 - History of Present Illness Initial comments: Dictation was produced using [employer] dictation software. please excuse any grammatical, word or spelling errors. Chief Complaint: 49-year-old female with abdominal pain nausea vomiting History of Present Illness: Patient is a 49-year-old female recently had a tripl e bypass surgery. She states she has a chronic indwelling left Pleurx catheter for recurrent pleural effusion. States that she woke up in the middle of the night vomiting. She states that she has some pain in her left upper quadrant. Denies any fever, chills or night sweats. States that her emesis is bilious. The ROS documented in this emergency department record has been reviewed and confirmed by me. Those systems with pertinent positive or negative responses have been documented in the HPI. All other systems are other negative and/or noncontributory. (Ortiz Mariano) - Related Data Home Medications Medication Instructions Recorded Confirmed Atorvastatin Calcium [Lipitor] 40 mg PO DAILY 09/15/24 10/03/24 Gabapentin [Neurontin] 300 mg PO HS 09/23/24 10/03/24 Losartan [Cozaar] 12.5 mg PO DAILY PRN 10/03/24 10/03/24 Previous Rx's Medication Instructions Recorded Acetaminophen Tab [Tylenol] 650 mg PO Q4HR PRN tab 10/01/24 Aspirin 81 mg PO DAILY tab 10/01/24 Cephalexin [Keflex] 500 mg PO QID 5 Days #20 cap 10/14/24 Dapagliflozin Propanediol [Farxiga] 10 mg PO DAILY #30 tab 10/14/24 Fluticasone Nasal [place] [Flonase 2 spray EA NOSTRIL DAILY #5 ml 10/14/24 Nasal [place]] Furosemide [Lasix] 40 mg PO BID #60 tablet 10/14/24 Loratadine [Claritin] 5 mg PO DAILY #30 tab 10/14/24 Metoprolol Tartrate [Lopressor] 12.5 mg PO BID #60 tab 10/14/24 Ondansetron Odt [Zofran ODT] 4 mg PO Q8HR PRN #20 tab 10/14/24 Pantoprazole [Protonix] 40 mg PO AC-BRKFST #30 tab 10/14/24 Petrolat,White/Shlomo/8-Hydroxyqu 1 gm TOPICAL TID PRN gm 10/14/24 [Bag Kyburz] Sennosides-Docusate Sodium 2 each PO HS #60 tab 10/14/24 [Senokot-S] Spironolactone [Aldactone] 100 mg PO BID@0600,1500 30 Days 10/14/24 #320 tab predniSONE See Taper PO DIRECTED #30 tab 10/14/24 Allergies Allergy/AdvReac Type Severity Reaction Status Date / Time capsaicin Allergy Rash/Hives/ Verified 10/03/24 13:54 Swelling Review of Systems ROS Other: All systems not noted in ROS Statement are negative. <Ortiz Mariano - Last Filed: 10/19/24 07:24> ROS Other: All systems not noted in ROS Statement are negative. <Golden Batres - Last Filed: 10/19/24 08:03> ROS Statement: Those systems with pertinent positive or pertinent negative responses have been documented in the HPI. Past Medical History Past Medical History: Coronary Artery Disease (CAD), Diabetes Mellitus, GERD /Reflux, Hyperlipidemia, Hypertension, Liver Disease, Osteoarthritis (OA), Pneumonia Additional Past Medical History / Comment(s): Hx pneumonia yrs ago. Hx kidney stones. Diet controlled diabetic-no longer needs meds. Seasonal allergies. Cirrhosis of liver. No menses in 4 1/2 yrs, states body does not make enough Estrogen. Recurrent pleural effusions. COVID in August 2024 at [facility] History of Any Multi-Drug Resistant Organisms: None Reported Past Surgical History: Appendectomy, Breast Surgery, Cholecystectomy, Coronary Bypass/CABG, Heart Catheterization With Stent, Orthopedic Surgery, Tubal Ligat ion Additional Past Surgical History / Comment(s): Right wrist carpal tunnel surgery, dental surgery- teeth removed, left breast abcess I&D X3, right breast abcess I&D X2, left ankle surgery, triple CABG 08/09/2024, multiple thoracentesis. Cardiac sents x2 and bilateral carotid stents. Left VATS with talc pleurodesis and placement of left-sided pleurx catheter 09/29/[address] Ortiz Past Anesthesia/Blood Transfusion Reactions: No Reported Reaction, Family History of Problems w/ Anesthesia Additional Past Anesthesia/Blood Transfusion Reaction / Comment(s): No blood transfusion to date. Mom stopped breathing during a surgery and was resuscitated. Date of Last Stent Placement:: 07/30/24 Past Psychological History: Anxiety, Bipolar, Depression Smoking Status: Former smoker Past Alcohol Use History: None Reported Past Drug Use History: Marijuana - Past Family History Mother Family Medical History: Cancer Additional Family Medical History / Comment(s): schizoaffective disorder Father History Unknown: Yes Family Medical History: Unable to Obtain Additional Family Medical History / Comment(s): Patient did not know her father <Ortiz Mariano - Last Filed: 10/19/24 07:24> General Exam Limitations: no limitations <Ortiz Mariano - Last Filed: 10/19/24 07:24> - General Exam Comments Initial Comments: PHYSICAL EXAM: General Impression: Alert and oriented x3, acute distress secondary to vomiting, emesis is bright yellow HEENT: Normocephalic atraumatic, extra-ocular movements intact, pupils equal and reactive to light bilaterally, mucous membranes moist. Cardiovascular: Heart regular rate and rhythm Chest: Able to complete full sentences, no retractions, no tachypnea Abdomen: abdomen soft, non-tender, non-distended, no organomegaly Musculoskeletal: Pulses present and equal in all extremities, no peripheral edema Motor: no focal deficits noted Neurological: CN II-XII grossly intact, no focal motor or sensory deficits noted Skin: Intact with no visualized rashes Psych: Normal affect and mood (Ortiz Mariano) Course Vital Signs 10/19/24 10/19/24 04:26 07:14 Temperature 98 F 98.1 F Pulse Rate 118 H 76 Respiratory 20 16 Rate Blood Pressure 128/78 154/82 O2 Sat by Pulse 98 96 Oximetry EKG Findings - EKG Comments: EKG Findings:: My EKG interpretation: Ventricular rate 79, sinus rhythm DE interval 132, QRS 89, QTc 455. No DE prolongation, no QTC prolongation, no ST or T-wave changes noted. Overall, this EKG is unremarkable <Ortiz Mariano - Last Filed: 10/19/24 07:24> Medical Decision Making - Lab Data Result diagrams: 10/19/24 05:08 10/19/24 05:08 <Ortiz Mariano - Last Filed: 10/19/24 07:24> - Lab Data Result diagrams: 10/19/24 05:08 10/19/24 05:08 <Golden Batres - Last Filed: 10/19/24 08:03> - Medical Decision Making Was pt. sent in by a medical professional or institution (, PA, SCHOOL OCCUPATIONAL THERAPIST, urgent care, hospital, or penitentiary...) When possible be specific @ -[No] Did you speak to anyone other than the patient for history (EMS, parent, family, police, friend...)? What history was obtained from this source @ -[No] Did you review nursing and triage notes (agree or disagree)? Why? @ -[I reviewed and agree with nursing and triage notes] Were old charts reviewed (outside hosp., previous admission, EMS record, old EKG, old radiological studies, urgent care reports/EKG's, penitentiary records)? Report findings @ -[No old charts were reviewed] Differential Diagnosis (chest pain, altered mental status, abdominal pain women, abdominal pain men, vaginal bleeding, musculoskeletal, weakness, fever, dyspnea, syncope, headache, dizziness, GI bleed, back pain, seizure, CVA, palpatations, mental health)? @ -Differential Abdominal Pain Women: Appendicitis, Cholecystitis, diverticulosis, ischemic bowel, pancreatitis, hepatitis, UTI, gastroenteritis, AAA, incarcerated hernia, bowel obstruction, constipation, inflammatory bowel, hepatitis, peptic ulcer disease, splenic infarction, perforated viscus, vulvitis, ovarian torsion, PID, kidney stone, placenta abruption, this is not meant to be an all-inclusive list EKG interpreted by me (3pts min.). @ -See above X-rays interpreted by me (1pt min.). @ -[None done] CT interpreted by me (1pt min.). @ -Pending U/S interpreted by me (1pt. min.). @ -[None done] What testing was considered but not performed or refused? (CT, X-rays, U/S, labs)? Why? @ -[None] What meds were considered but not given or refused? Why? @ -[None] Was smoking cessation discussed for >3mins.? @ -[No] Were there social determinants of health that impacted care today? How? (Homelessness, low income, unemployed, alcoholism, drug addiction, transportation, low edu. Level, literacy, decrease access to med. care, fdc, rehab)? @ -[No] Was there de-escalation of care discussed even if they declined (Discuss DNR or withdrawal of care, Hospice)? DNR status @ -[No] What co-morbidities impacted this encounter? (DM, HTN, Smoking, COPD, CAD, Cancer, CVA, ARF, Chemo, Hep., AIDS, mental health diagnosis, sleep apnea, morbid obesity)? @ -Recent CABG, pleural effusion Was patient admitted / discharged? Hospital course, mention meds given and route, prescriptions, significant lab abnormalities, going to OR and other pertinent info. @ -49-year-old female presents to the emergency department for bilious vomiting abdominal pain for the past 7 hours. Vital signs upon arrival shows tachycardia 118, rest of vital signs within acceptable limits. Laboratory evaluation obtained lactic acidosis 3.3. Rest of labs within acceptable limits. CT pending. Patient care signed out to Dr. Batres at 7:24 AM (Ortiz Mariano) Patient reevaluated by myself. Patient resting comfortably in bed however still complains of nausea and abdominal discomfort. Abdomen soft and nontender. CT scan interpreted by myself shows nonspecific enterocolitis. Left pleural effusion. Patient and family are updated on results and plan Case discussed with Jessica Wilson from [facility] who will admit covering for the recent admission. Diagnosis: Enterocolitis Acute (Golden Batres) - Lab Data Lab Results 10/19/24 10/19/24 10/19/24 Range/Units 05:08 05:08 05:08 WBC 7.9 (3.8-10.6) k/uL RBC 4.35 (3.80-5.40) m/uL Hgb 10.6 L (11.4-16.0) gm/dL Hct 34.4 (34.0-46.0) % MCV 79.0 L (80.0-100.0) fL MCH 24.3 L (25.0-35.0) pg MCHC 30.8 L (31.0-37.0) g/dL RDW 16.9 H (11.5-15.5) % Plt Count 158 (150-450) k/uL MPV 11.9 Neutrophils % 73 % Lymphocytes % 15 % Monocytes % 7 % Eosinophils % 4 % Basophils % 0 % Neutrophils # 5.8 (1.3-7.7) k/uL Lymphocytes # 1.2 (1.0-4.8) k/uL Monocytes # 0.5 (0-1.0) k/uL Eosinophils # 0.3 (0-0.7) k/uL Basophils # 0.0 (0-0.2) k/uL Hypochromasia Marked Poikilocytosis Slight Anisocytosis Slight Microcytosis Slight Sodium 137 (137-145) mmol/L Potassium 4.2 (3.5-5.1) mmol/L Chloride 104 (98-107) mmol/L Carbon Dioxide 25 (22-30) mmol/L Anion Gap 8 mmol/L BUN 17 (7-17) mg/dL Creatinine 0.87 (0.52-1.04) mg/dL Est GFR (CKD-EPI)AfAm >90 (>60 ml/min/1.73 sqM) Est GFR (CKD-EPI)NonAf 79 (>60 ml/min/1.73 sqM) Glucose 186 H (74-99) mg/dL Lactic Ac Sepsis Rflx Plasma Lactic Acid Tristin 3.3 H* (0.7-2.0) mmol/L Calcium 8.5 (8.4-10.2) mg/dL Magnesium 1.8 (1.6-2.3) mg/dL Total Bilirubin 1.3 (0.2-1.3) mg/dL AST 42 H (14-36) U/L ALT 51 H (4-34) U/L Alkaline Phosphatase 157 H (38-126) U/L Total Protein 6.3 (6.3-8.2) g/dL Albumin 3.3 L (3.5-5.0) g/dL Lipase 136 (23-300) U/L 10/19/24 Range/Units 06:01 WBC (3.8-10.6) k/uL RBC (3.80-5.40) m/uL Hgb (11.4-16.0) gm/dL Hct (34.0-46.0) % MCV (80.0-100.0) fL MCH (25.0-35.0) pg MCHC (31.0-37.0) g/dL RDW (11.5-15.5) % Plt Count (150-450) k/uL MPV Neutrophils % % Lymphocytes % % Monocytes % % Eosinophils % % Basophils % % Neutrophils # (1.3-7.7) k/uL Lymphocytes # (1.0-4.8) k/uL Monocytes # (0-1.0) k/uL Eosinophils # (0-0.7) k/uL Basophils # (0-0.2) k/uL Hypochromasia Poikilocytosis Anisocytosis Microcytosis Sodium (137-145) mmol/L Potassium (3.5-5.1) mmol/L Chloride (98-107) mmol/L Carbon Dioxide (22-30) mmol/L Anion Gap mmol/L BUN (7-17) mg/dL Creatinine (0.52-1.04) mg/dL Est GFR (CKD-EPI)AfAm (>60 ml/min/1.73 sqM) Est GFR (CKD-EPI)NonAf (>60 ml/min/1.73 sqM) Glucose (74-99) mg/dL Lactic Ac Sepsis Rflx Y Plasma Lactic Acid Tristin (0.7-2.0) mmol/L Calcium (8.4-10.2) mg/dL Magnesium (1.6-2.3) mg/dL Total Bilirubin (0.2-1.3) mg/dL AST (14-36) U/L ALT (4-34) U/L Alkaline Phosphatase (38-126) U/L Total Protein (6.3-8.2) g/dL Albumin (3.5-5.0) g/dL Lipase (23-300) U/L Disposition <Ortiz Mariano - Last Filed: 10/19/24 07:24> Is patient prescribed a controlled substance at d/c from ED?: No Time of Disposition: 07:51 <Golden Batres - Last Filed: 10/19/24 08:03> Clinical Impression: Enterocolitis Disposition: ADMITTED IP TO THIS HOSP
[2024-10-19 05:22] LABS: Anisocytosis Slight; Basophils % (A) 0 %; Eosinophils # (A) 0.3 k/uL (0-0.7); Eosinophils % (A) 4 %; HCT 34.4 % (34.0-46.0); HGB 10.6 gm/dL (11.4-16.0); Hypochromasia Marked; Lymphocytes # (A) 1.2 k/uL (1.0-4.8); Lymphocytes % (A) 15 %; MCH 24.3 pg (25.0-35.0); MCHC 30.8 g/dL (31.0-37.0); Mean Platelet Volume 11.9; Microcytosis Slight; Monocytes # (A) 0.5 k/uL (0-1.0); Monocytes % (A) 7 %; Neutrophils # (A) 5.8 k/uL (1.3-7.7); Neutrophils % (A) 73 %; Platelet Count 158 k/uL (150-450); Poikilocytosis Slight; RBC 4.35 m/uL (3.80-5.40); RDW 16.9 % (11.5-15.5); WBC 7.9 k/uL (3.8-10.6)
[2024-10-19 05:31] LABS: ALT 51 U/L (4-34); AST 42 U/L (14-36); African American GFR (CKD) >90 (>60 ml/min/1.73 sqM); Albumin 3.3 g/dL (3.5-5.0); Alkaline Phosphatase 157 U/L (38-126); Anion Gap 8 mmol/L; Blood Urea Nitrogen 17 mg/dL (7-17); Calcium 8.5 mg/dL (8.4-10.2); Carbon Dioxide 25 mmol/L (22-30); Chloride 104 mmol/L (98-107); Glucose 186 mg/dL (74-99); Lipase 136 U/L (23-300); Magnesium 1.8 mg/dL (1.6-2.3); Non-African American GFR(CKD) 79 (>60 ml/min/1.73 sqM); Potassium 4.2 mmol/L (3.5-5.1); Sodium 137 mmol/L (137-145); Total Bilirubin 1.3 mg/dL (0.2-1.3); Total Protein 6.3 g/dL (6.3-8.2)
[2024-10-19] MEDS: HYDROmorphone 1 MG/ML 1 ML SYRINGE IVP STA (05:55)
--- NOTE | 2024-10-19 07:40 | CT ---
EXAMINATION TYPE: CT abdomen pelvis w con DATE OF EXAM: 10/19/2024 5:49 AM COMPARISON: 10/12/2024 CLINICAL INDICATION: Female, 49 years old with history of abdominal pain, n/v, Pt. c/o N/V x3 hours. Left-sided pleurx catheter placed on 09/29/2024 TECHNIQUE:CT scan of the abdomen and pelvis is performed without Oral Contrast and with IV Contrast, patient injected with 100 mL of Isovue 300. CT DLP: 1583.3 mGycm, Automated exposure control for dose reduction was used. FINDINGS: LUNG BASES-: No visible nodule. No infiltrate. There are bilateral pleural effusions noted LIVER/GB: Surgical absence of the gallbladder. Intranodular appearance to the liver suggestive of cirrhotic liver disease. No space occupying hepatic lesion. Biliary tree is of normal caliber. Promin ent fluid about the hepatic margin. PANCREAS: No inflammation. No distinct mass. SPLEEN: Splenomegaly measuring 14.2 cm craniocaudal dimension. No lesion seen. Small amount of free f luid about the splenic edge. ADRENALS: No nodule. No thickening. KIDNEYS/BLADDER: No hydronephrosis. Bilateral nonobstructing nephrolithiasis. No distinct renal mass . Urinary bladder grossly unremarkable. BOWEL: poor visualization of the appendix. Normal bowel caliber. No inflammation. There is nonspeci fic wall thickening of the small bowel and large bowel which may reflect enterocolitis. GENITAL ORGANS: No gross abnormality. LYMPH NODES: No greater than 1cm abdominal or pelvic lymph nodes are appreciated. AORTA: No significant abnormality. OSSEOUS STRUCTURES: No significant abnormality is seen. OTHER: Free fluid seen within the pelvis. IMPRESSION: 1. Correlate for nonspecific enterocolitis. 2. Findings compatible with cirrhotic liver disease and splenomegaly. 3. Pleural effusions as well as a small amount of ascites. #4 nonobstructing nephrolithiasis. [facility], , 10/19/2024 7:38 AM
[2024-10-19] MEDS ORDERED: NALOXONE 0.4 MG/ML 1 ML VIAL IV PRN (07:51)
[2024-10-19] MEDS: METOCLOPRAMIDE 5 MG/ML 2 ML VIAL IVP STA (08:07)
[2024-10-19] MEDS: PANTOPRAZOLE 40 MG/10 ML VIAL IV SCH ×2 (08:07→20:30)
[2024-10-19] MEDS: SODIUM CHLORIDE 0.9% 1,000 ML IV SCH (08:07)
[2024-10-19] MEDS: HYDROmorphone 1 MG/ML 1 ML SYRINGE IVP PRN (09:25)
--- NOTE | 2024-10-19 11:08 | XR ---
EXAMINATION TYPE: XR chest 1V portable DATE OF EXAM: 10/19/2024 11:00 AM COMPARISON: Chest radiographs from 10/14/2024 TECHNIQUE: XR chest 1V portable Portable AP radiograph of the chest. CLINICAL INDICATION:Female, 49 years old with history of chf; FINDINGS: Lungs/Pleura: Blunting of the left costophrenic angle. No focal consolidation. Trace left apical pneu mothorax. Pulmonary vascularity: Unremarkable. Heart/mediastinum: Cardiomediastinal silhouette is enlarged. Pneumopericardium redemonstrated. Post-C ABG changes. Left atrial appendage occlusion devices present. Musculoskeletal: No acute osseous pathology. Midline sternotomy wires are noted and stable. Other findings: None Lines/Tubes: Left thoracotomy tube is in stable position. IMPRESSION: 1. Trace left apical pneumothorax with left-sided thoracotomy tube in place. 2. Pneumopericardium redemonstrated. 3. Post-CABG changes. 4. Slight increase in small left pleural effusion. [facility], , 10/19/2024 11:06 AM
[2024-10-19] MEDS: ONDANSETRON 4 MG/2 ML VIAL IVP PRN (12:44)
[2024-10-19] MEDS ORDERED: LOSARTAN 25 MG TAB PO PRN (12:46)
[2024-10-19] MEDS ORDERED: ACETAMINOPHEN TAB 325 MG TAB PO PRN (12:46)
[2024-10-19] MEDS: LEVOFLOXACIN 500MG-D5W PMX 500 MG in DEXTROSE/WATER 1 100ML.BAG IVPB SCH ×2 (13:14→13:15)
[2024-10-19] MEDS: predniSONE 10 MG TAB PO SCH (13:14)
[2024-10-19] MEDS: FUROSEMIDE 40 MG TAB PO SCH (13:14)
--- NOTE | 2024-10-19 13:23 | CT ---
EXAMINATION TYPE: CT chest wo con CT DLP: 457.8 mGycm, Automated exposure control for dose reduction was used. DATE OF EXAM: 10/19/2024 1:04 PM COMPARISON: Chest radiograph 10/19/2024, CT chest abdomen and pelvis 10/12/2024 CLINICAL INDICATION:Female, 49 years old with history of pneumopericardium; PHH, pneumopericardium TECHNIQUE: Multiple axial images were obtained through the chest without IV contrast. Lack of IV or o ral contrast limits evaluation of solid and hollow organ viscera. . Coronal and sagittal reformats re viewed. FINDINGS: LUNGS/ PLEURA: Right lung is clear. No pneumothorax. Similar small to moderate left pleural effusion with atelectatic change of the left lower lobe. Left-sided thoracotomy tube is in stable position wit h distal tip along the superior mediastinal aspect on the left. AIRWAY: Patent and unremarkable.. HEART: The heart is mildly increased in size..Left atrial appendage clip. Moderate coronary arterial calcifications. Aortic valvular calcifications.. Increased size of fluid with gas identified within t he pericardium with interval removal of drainage catheter. There are air-fluid levels identified with in the pericardial region. MEDIASTINUM: No gross evidence of adenopathy. VASCULATURE: No aortic aneurysm. MUSCULOSKELETAL: No acute osseous abnormalities. Median sternotomy wires with stranding changes in th e soft tissues. SOFT TISSUES/LYMPH NODES: Unremarkable. LOWER NECK: No significant findings. UPPER ABDOMEN: Cirrhotic appearance to the liver with surface nodular contour. Small perihepatic and perisplenic ascites. Prominent spleen. Gallbladder surgically absent. Mesenteric edema. Contrast is d emonstrated within within both renal collecting systems with limits evaluation. IMPRESSION: 1. Post surgical changes of the heart with marginal increased size of air-fluid collections in the pe ricardium. Interval removal of mediastinal drainage catheter. 2. Small to moderate left pleural effusion with thoracotomy tube in place. 3. Hepatic cirrhosis. [facility], , 10/19/2024 1:20 PM
[2024-10-19] MEDS: SPIRONOLACTONE 25 MG TAB PO SCH (14:26)
[2024-10-19] MEDS: metroNIDAZOLE-NS PMX 500 MG in SALINE 1 100ML.BAG IVPB SCH (15:20)
[2024-10-19] MEDS: METOPROLOL TARTRATE 12.5 MG TAB PO SCH (20:31)
[2024-10-19] MEDS: SENNOSIDES-DOCUSATE SODIUM 1 EACH TAB PO SCH (20:31)
[2024-10-19] MEDS: HEPARIN SODIUM,PORCINE 5,000 UNIT/ML 1 ML VIAL SQ SCH (20:32)
[2024-10-19] MEDS: GABAPENTIN 300 MG CAP PO SCH (20:32)
--- NOTE | 2024-10-19 22:45 | HP ---
HISTORY AND PHYSICAL CHIEF COMPLAINT: Abdominal pain, nausea, vomiting. HISTORY OF PRESENT ILLNESS: This is a 49-year-old woman with a past medical history of multiple medical problems, recently admitted with significant pneumopericardium. The chest tube was inserted. The patient has a drain. Currently, the patient is complaining of lower abdominal pain, nausea, and vomiting. The patient came to [facility] and had a CT of the abdomen and pelvis, which showed features of nonspecific enterocolitis and cirrhosis of liver and splenomegaly. There is no history of any fever, rigors, or chills at this time. PAST MEDICAL HISTORY: Reviewed included recent pneumopericardium and other associated medical issues. HOME MEDICATIONS: Reviewed include aldactone. ALLERGIES: Capsaicin. FAMILY HISTORY: History of cancer, schizoaffective disorder. SOCIAL HISTORY: History of bipolar, anxiety, history of smoking. REVIEW OF SYSTEMS: Fourteen-point review is negative except as mentioned earlier. PHYSICAL EXAMINATION: VITAL SIGNS: Pulse 76, blood pressure 154/80, respirations 16. HEENT: Conjunctivae are normal. NECK: No JVD. CARDIOVASCULAR: S1, S2. RESPIRATIONS: A few scattered rhonchi. ABDOMEN: Soft, mild diffuse discomfort. LEGS: No edema. NERVOUS SYSTEM: Nonfocal. LABORATORY DATA: Reviewed. ASSESSMENT: 1. Abdominal pain, nausea, vomiting, possible acute enterocolitis. 2. History of recent pneumopericardium and drainage. 3. History of cirrhosis of liver. 4. Coronary artery disease. 5. Diabetes mellitus type 2. 6. Hypertension. 7. Hyperlipidemia. 8. Coronary artery disease, coronary artery bypass graft stent. 9. Multiple complex medical issues. RECOMMENDATIONS AND DISCUSSION: Recommend to continue current medications, continue symptomatic treatment. Otherwise, recommend empiric antibiotics. Resume the home medications. Cautious hydration. Symptomatic treatment for the pain. Closely follow. Discussed with Cardiothoracic Surgery. I would also recommend CT scan of the chest also to complete the workup also. See the orders for details. Proton pump inhibitors. DVT prophylaxis. Further recommendations to follow. MMODL / IJN: [id number] /
[2024-10-20] MEDS: ATORVASTATIN 40 MG TAB PO SCH (08:03)
[2024-10-20] MEDS: LORATADINE 10 MG TAB PO SCH (08:03)
[2024-10-20] MEDS: ASPIRIN 81 MG PO SCH (08:03)
[2024-10-20 08:47] LABS: Basophils # (A) 0.01 X 10*3/uL (0.00-0.10); Basophils % (A) 0.1 %; Eosinophils # (A) 0.15 X 10*3/uL (0.04-0.35); Eosinophils % (A) 2.1 %; HCT 28.7 % (37.2-46.3); HGB 8.2 g/dL (12.0-15.0); Lymphocytes # (A) 1.53 X 10*3/uL (0.90-5.00); Lymphocytes % (A) 21.7 %; MCH 22.9 pg (27.0-32.0); MCHC 28.6 g/dL (32.0-37.0); MCV 80.2 FL (80.0-97.0); Monocytes # (A) 0.79 X 10*3/uL (0.20-1.00); Monocytes % (A) 11.2 %; NRBC Per 100 WBC 0 X 10*3/uL (0.00-0.01); Neutrophils # (A) 4.55 X 10*3/uL (1.80-7.70); Neutrophils % (A) 64.8 %; Platelet Count 111 X 10*3/uL (140-440); RBC 3.58 X 10*6/uL (4.10-5.20); RDW 17.1 % (11.5-14.5); WBC 7.04 X 10*3/uL (4.50-10.00)
[2024-10-20 08:58] LABS: ALT 41 U/L (8-44); AST 26 U/L (13-35); Albumin/Globulin Ratio 1.25 Ratio (1.60-3.17); Alkaline Phosphatase 84 U/L (41-126); Calcium 8.3 mg/dL (8.7-10.3); Carbon Dioxide 24.7 mmol/L (21.6-31.8); Chloride 104 mmol/L (96-109); Globulin 2.4 g/dL (1.6-3.3); Glucose 110 mg/dL (70-110); Magnesium 1.7 mg/dL (1.5-2.4); Potassium 3.9 mmol/L (3.5-5.5); Sodium 139 mmol/L (135-145); Total Bilirubin 0.8 mg/dL (0.3-1.2); Total Protein 5.4 g/dL (6.2-8.2)
[2024-10-20] MEDS: FLUTICASONE NASAL 50MCG/SPRAY 16GM BTL EA NOSTRIL SCH (09:33)
[2024-10-20] MEDS: HYDROmorphone 0.5 MG/0.5 ML SYRINGE IVP PRN (17:02)
[2024-10-20] MEDS: HYDROcodone/APAP 5-325MG 1 EACH TAB PO PRN (20:45)
--- NOTE | 2024-10-21 06:55 | PN ---
PROGRESS NOTE DATE OF SERVICE: 10/20/2024 SUBJECTIVE: This is a 49-year-old woman, who was admitted with abdominal pain, nausea, and vomiting also, being treated for possible enterocolitis. The patient recently had pneumopericardium. No chest pain. No palpitation. OBJECTIVE: VITAL SIGNS: Pulse 66, blood pressure 99/64, respirations 16. CHEST: A few scattered rhonchi. ABDOMEN: Soft. NERVOUS SYSTEM: Nonfocal. LABORATORY DATA: Hemoglobin 8.2. Rest of the labs are noted. ASSESSMENT: 1. Abdominal pain, nausea, vomiting, possible acute enterocolitis. 2. Elevated lactic acid. 3. History of recent pneumopericardium and drainage. 4. History of cirrhosis of liver. 5. Coronary artery disease. 6. Diabetes mellitus type 2. 7. Hypertension. 8. Hyperlipidemia. 9. Coronary artery disease, coronary artery bypass graft and stent. 10.Multiple complex medical issues. RECOMMENDATIONS AND DISCUSSION: Recommend to continue current management and continue symptomatic treatment. Otherwise, monitor closely. I would recommend with Lasix and continue the rest of the medications. I will stop the IV fluids. The patient is on clear liquids. Advance diet if it is tolerated. Guarded prognosis. Further recommendations to follow. Pain Management. MMODL / IJN: [id number] /
[2024-10-21 08:45] LABS: BUN/Creat Ratio 9.36 Ratio (12.00-20.00); Blood Urea Nitrogen 10.3 mg/dL (9.0-27.0); Calcium 8.2 mg/dL (8.7-10.3); Carbon Dioxide 30.2 mmol/L (21.6-31.8); Chloride 102 mmol/L (96-109); Glucose 105 mg/dL (70-110); Potassium 3.4 mmol/L (3.5-5.5); Sodium 142 mmol/L (135-145)
[2024-10-21 12:25] LABS: Basophils # (A) 0 X 10*3/uL (0.00-0.10); Basophils % (A) 0 %; Eosinophils # (A) 0.06 X 10*3/uL (0.04-0.35); Eosinophils % (A) 1.6 %; HCT 27.7 % (37.2-46.3); Lymphocytes # (A) 1.39 X 10*3/uL (0.90-5.00); Lymphocytes % (A) 38.2 %; MCH 22.9 pg (27.0-32.0); MCHC 28.9 g/dL (32.0-37.0); MCV 79.4 FL (80.0-97.0); Monocytes # (A) 0.49 X 10*3/uL (0.20-1.00); Monocytes % (A) 13.5 %; NRBC Per 100 WBC 0 X 10*3/uL (0.00-0.01); Neutrophils # (A) 1.69 X 10*3/uL (1.80-7.70); Neutrophils % (A) 46.4 %; Platelet Count 90 X 10*3/uL (140-440); RBC 3.49 X 10*6/uL (4.10-5.20); RDW 17.2 % (11.5-14.5); WBC 3.64 X 10*3/uL (4.50-10.00)
--- NOTE | 2024-10-22 03:21 | PN ---
PROGRESS NOTE DATE OF SERVICE: 10/21/2024 SUBJECTIVE: This is a 49-year-old woman, who was admitted with abdominal pain, nausea, vomiting, had possible acute enterocolitis. The patient is on empiric antibiotics. Cardiothoracic Surgery is following the patient for possible removal of the PleurX drainage. OBJECTIVE: VITAL SIGNS: Pulse is 67, blood pressure 98/60, respirations 18. CHEST: A few scattered rhonchi. ABDOMEN: Soft. NERVOUS SYSTEM: Nonfocal. LABORATORY DATA: Hemoglobin 8, potassium 3.4. ASSESSMENT: 1. Abdominal pain, nausea, vomiting, possible acute enterocolitis. 2. Elevated lactic acid. 3. History of recent pneumopericardium and PleurX drainage. 4. History of cirrhosis of liver. 5. Coronary artery disease. 6. Diabetes mellitus, type 2. 7. Hypertension. 8. Hyperlipidemia. 9. Coronary artery disease, coronary artery bypass graft. 10.Multiple complex medical issues. RECOMMENDATIONS AND DISCUSSION: Recommend to continue current management and continue symptomatic treatment. Recommend to advance diet. Supplement potassium. Continue the antibiotics. May be probably discharge within the next 24 hours with plans for a short course of outpatient antibiotics. Further recommendations to follow. Antibiotics for enterocolitis. MMODL / IJN: [id number] /
[2024-10-22 08:55] LABS: BUN/Creat Ratio 9.18 Ratio (12.00-20.00); Blood Urea Nitrogen 10.1 mg/dL (9.0-27.0); Chloride 101 mmol/L (96-109); Glucose 127 mg/dL (70-110); Potassium 3.3 mmol/L (3.5-5.5); Sodium 139 mmol/L (135-145)
[2024-10-22 08:56] LABS: ALT 44 U/L (8-44); AST 36 U/L (13-35); Albumin 2.9 g/dL (3.8-4.9); Albumin/Globulin Ratio 1.21 Ratio (1.60-3.17); Alkaline Phosphatase 96 U/L (41-126); Carbon Dioxide 26.8 mmol/L (21.6-31.8); Globulin 2.4 g/dL (1.6-3.3); Total Bilirubin 0.5 mg/dL (0.3-1.2); Total Protein 5.3 g/dL (6.2-8.2)
[2024-10-22 08:57] LABS: Basophils # (A) 0.01 X 10*3/uL (0.00-0.10); Basophils % (A) 0.3 %; Eosinophils # (A) 0.03 X 10*3/uL (0.04-0.35); Eosinophils % (A) 0.9 %; Lymphocytes # (A) 1.15 X 10*3/uL (0.90-5.00); Lymphocytes % (A) 33.5 %; MCH 23.6 pg (27.0-32.0); MCHC 29.6 g/dL (32.0-37.0); MCV 79.6 FL (80.0-97.0); Monocytes # (A) 0.46 X 10*3/uL (0.20-1.00); Monocytes % (A) 13.4 %; NRBC Per 100 WBC 0 X 10*3/uL (0.00-0.01); Neutrophils # (A) 1.77 X 10*3/uL (1.80-7.70); Neutrophils % (A) 51.6 %; Platelet Count 93 X 10*3/uL (140-440); RBC 3.39 X 10*6/uL (4.10-5.20); RDW 17.4 % (11.5-14.5); WBC 3.43 X 10*3/uL (4.50-10.00)
[2024-10-23 01:59] VITALS: TEMP 98.3
[2024-10-23 07:23] VITALS: BP 95/60; PULSE 69; RESP 18
== END 2024-10-23 13:56 | disposition home or self-care (01) | DRG 392 ==
LOC: EC 04:23 → 6NMEDSUR 07:52 → OBSVTOIN 07:53 → 6NMEDSUR 20:00
PROVIDERS: ADMIT Internal Medicine; ATTEND Internal Medicine
DX: K52.9 Noninfective gastroenteritis and colitis, unspecified (principal); E87.20 Acidosis, unspecified; J90 Pleural effusion, not elsewhere classified; E11.9 Type 2 diabetes mellitus without complications; E78.5 Hyperlipidemia, unspecified; F31.9 Bipolar disorder, unspecified; I10 Essential (primary) hypertension; I25.10 Atherosclerotic heart disease of native coronary artery without angina pectoris; K74.60 Unspecified cirrhosis of liver; Z79.82 Long term (current) use of aspirin; Z86.16 Personal history of COVID-19; Z87.442 Personal history of urinary calculi; Z87.891 Personal history of nicotine dependence; Z95.1 Presence of aortocoronary bypass graft
CPT/HCPCS: 36415; 71045; 71250; 74177; 80048; 80053; 83605; 83690; 83735; 85025; 87040; 93005; 96361; 96365; 96367; 96372; 96375; 96376; 99285

== ENCOUNTER 2024-11-01 13:27 | Inpatient (IN) | payer OTHER ==
[2024-11-01] MEDS ORDERED: NALOXONE 0.4 MG/ML 1 ML VIAL IV PRN (15:56)
[2024-11-01] MEDS ORDERED: ACETAMINOPHEN TAB 325 MG TAB PO PRN (16:12)
[2024-11-01] MEDS: HYDROmorphone 1 MG/ML 1 ML SYRINGE IVP PRN (16:12)
[2024-11-01] MEDS ORDERED: LOSARTAN 25 MG TAB PO PRN (16:12)
--- NOTE | 2024-11-01 16:33 | XR ---
EXAMINATION TYPE: XR chest 1V DATE OF EXAM: 11/01/2024 4:16 PM COMPARISON: Chest radiographs from 10/19/2024 CLINICAL INDICATION: Female, 49 years old with history of pleural effusion; TECHNIQUE: XR chest 1V Frontal view of the chest. FINDINGS: Lungs/Pleura: Blunting of the left costophrenic angle with associated atelectasis. There is no eviden ce of right pleural effusion, focal consolidation, or pneumothorax. Pulmonary vascularity: Unremarkable. Heart/mediastinum: Cardiomediastinal silhouette is enlarged. Musculoskeletal: No acute osseous pathology. Other findings: None Lines/Tubes: Left thoracotomy tube is present without evidence of pneumothorax. IMPRESSION: 1. Left thoracotomy tube with tip in appropriate position. No pneumothorax visualized. 2. Cardiomegaly with small left pleural effusion. [facility], , 11/01/2024 4:31 PM
[2024-11-01] MEDS: DOPamine DRIP 800 MG in DEXTROSE/WATER 1 250ML.BAG IV SCH (17:08)
[2024-11-01] MEDS: SODIUM CHLORIDE 0.9% 1,000 ML IV SCH (17:08)
[2024-11-01 17:26] LABS: Anisocytosis Slight; Basophils % (A) 0 %; Eosinophils % (A) 0 %; HCT 28.7 % (34.0-46.0); Hypochromasia Marked; Lymphocytes # (A) 0.8 k/uL (1.0-4.8); Lymphocytes % (A) 7 %; MCH 23.4 pg (25.0-35.0); MCHC 30.6 g/dL (31.0-37.0); MCV 76.6 fL (80.0-100.0); Mean Platelet Volume 11.1; Microcytosis Slight; Monocytes # (A) 0.8 k/uL (0-1.0); Monocytes % (A) 8 %; Neutrophils # (A) 9.1 k/uL (1.3-7.7); Neutrophils % (A) 84 %; Platelet Count 133 k/uL (150-450); RBC 3.75 m/uL (3.80-5.40); RDW 17.8 % (11.5-15.5); WBC 10.8 k/uL (3.8-10.6)
[2024-11-01 17:49] LABS: ALT 28 U/L (4-34); AST 42 U/L (14-36); African American GFR (CKD) 62 (>60 ml/min/1.73 sqM); Albumin 2.9 g/dL (3.5-5.0); Alkaline Phosphatase 88 U/L (38-126); Anion Gap 8 mmol/L; Blood Urea Nitrogen 26 mg/dL (7-17); Calcium 8.7 mg/dL (8.4-10.2); Carbon Dioxide 17 mmol/L (22-30); Chloride 107 mmol/L (98-107); Glucose 191 mg/dL (74-99); Non-African American GFR(CKD) 54 (>60 ml/min/1.73 sqM); Potassium 4.6 mmol/L (3.5-5.1); Sodium 132 mmol/L (137-145); Total Bilirubin 2.2 mg/dL (0.2-1.3); Total Protein 5.9 g/dL (6.3-8.2)
[2024-11-01 18:05] LABS: HGB 8.8 gm/dL (11.4-16.0)
[2024-11-01] MEDS: METOPROLOL TARTRATE 25 MG TAB PO SCH (20:09)
[2024-11-01] MEDS: SENNOSIDES-DOCUSATE SODIUM 1 EACH TAB PO SCH (20:10)
[2024-11-01] MEDS: GABAPENTIN 300 MG CAP PO SCH (20:10)
--- NOTE | 2024-11-01 21:56 | CT ---
EXAMINATION TYPE: CT chest wo con DATE OF EXAM: 11/01/2024 9:28 PM COMPARISON: Multiple CTs including 10/30/2024, 10/19/2024, 10/19/2024, 10/12/2024 CLINICAL INDICATION: Female, 49 years old with history of eval pericardial effusion/pneumopericardium ; PHH, eval pericardial effusion/pneumopericardium TECHNIQUE: Multiple axial images were obtained through the chest. Sagittal and coronal reformats were created for review. MIP was performed on a separate workstation. Contrast used: mL of (None if empty) Oral contrast used: (None if empty) CT DLP: mGycm, Automated exposure control for dose reduction was used. FINDINGS: LUNGS/ PLEURA: Large left pleural effusion with associated atelectasis. Left thoracotomy tube tip pos ition in the higher posterior pleural space terminating near the apex of the lung. AIRWAY: Patent and unremarkable. HEART: Cardiomegaly with postsurgical changes. Left atrial appendage occlusion device. High density s een throughout the coronary arteries. MEDIASTINUM: No gross evidence of adenopathy. There remains small pericardial effusion prior gas seen on 10/12/2024 no longer visualized VASCULATURE: No aortic aneurysm. MUSCULOSKELETAL: Mild disc degeneration changes are present throughout the thoracolumbar spine. Eller otomy wires are present. SOFT TISSUES/LYMPH NODES: Unremarkable. LOWER NECK: No significant findings. UPPER ABDOMEN: Nodular contour to liver compatible with cirrhosis. IMPRESSION: 1. Resolution of gas seen on multiple prior CTs within the pericardium. There remains small to moder ate pericardial effusion and moderate to large left pleural effusion. 2. Left thoracotomy tube is in place and positioned in the higher portion of the thorax pleural spac e. Consider adjustment to reach the lower pleural fusion. 3. Postsurgical changes to the heart with high density within the coronary arteries. [facility], , 11/01/2024 9:54 PM
[2024-11-01] MEDS: NOREPINEPHRINE 4 MG in SODIUM CHLORIDE 0.9% 250 ML IV SCH (23:58)
[2024-11-02] MEDS: HEPARIN SODIUM,PORCINE 5,000 UNIT/ML 1 ML VIAL SQ SCH (00:29)
--- NOTE | 2024-11-02 03:11 | P.CNPUL ---
History of Present Illness Consult date: 11/02/24 Requesting physician: Jake Tolliver Reason for consult: other (ICU management) Chief complaint: Transferred from outside facility History of present illness: Patient is a 49-year-old female with complicated past medical history significant for coronary artery disease with previous PCI/stenting and subsequent CABG x 3, recurrent left-sided pleural effusion with frequent thoracentesis status post left-sided VATS with talc pleurodesis and left sided Pleurx catheter placement, right-sided pleural effusion, diabetes mellitus, hypertension, carotid artery stenosis, alcohol abuse, liver disease, breast abscess, bipolar disorder/anxiety, previous tobacco dependence, chronic marijuana use. Note that back on August 09, 2024 patient underwent off-pump CABG x 3 at our facility. She had a prolonged and complicated hospitalization. Following the procedure, she developed persistent left-sided/recurrent pleural effusion requiring multiple thoracentesis, and did undergo left thoracoscopy, talc pleurodesis, and placement of a left Pleurx catheter on 09/29/2024. She also developed a rather large pericardial effusion, requiring subxiphoid pericardial window done 10/04/2024. She was finally discharged home from this facility 10/14/2024. While at home, the patient started having recurrent nausea and vomiting, was unable to tolerate food or drink, and was admitted at our facility 10/19/2024 through 10/23/2024 with colitis. She was discharged, and went to [facility] with similar symptoms. Reportedly, found to have acute kidney injury and was admitted. Previously taking Toradol on an outpatient basis. While at outside facility, she was in the bathroom and became lightheaded. She does not recall other events while in the bathroom. Patient reportedly had a syncopal event and had brief CPR. I do not believe the patient ever lost a pulse. She did respond and did not require any intubation. Following the event, patient was reportedly found to be in A-fib RVR and then later was bradycardic. She was started on dopamine, and transferred to our facility. I believe the concern was for enlarging pericardial effusion. Follow-up chest CT at our facility showing resolution of gas within the pericardium seen on prior CTs, persistent small to moderate-sized pericardial effusion without tamponade features. Moderate to large left-sided pleural effusion. Patient does have Pleurx catheter in the pleural space. No obvious traumatic rib fractures or pneumothoraces. Patient is currently being evaluated in the intensive care unit. She is alert and oriented. No focal neurological deficits. No history of seizures, CVA/TIA, or prior syncopal events. Resting comfortably on 2 L/min nasal cannula. SpO2 is reading 100%. Patient states that she continues to drain her Pleurx catheter every 2 to 3 days. Gets anywhere from 50 to 200 cc of serous output when draining. She has not drained the catheter in a few days. She continues on dopamine which is infusing at 10 mcg/kg/min. Heart rate is actually tachycardic. This is sinus tachycardia, 106 bpm on bedside monitor. Blood pressure remains borderline 95/59 mmHg. She reports a mild amount of reproducible right-sided chest pain with deep breathing, coughing, or palpation. While in bed, denies any lightheadedness, heart palpitations, radiating chest pain, orthopnea. She does report some increased lower extremity swelling, bilaterally. No further episodes of vomiting. Intermittent nausea, however, is tolerating oral intake at this time. Denies any diarrhea, hematochezia, melena, hematemesis. She does report epigastric abdominal pain, which has been persistent over the last 2-1/2 months. Did have an EGD done August 31, 2024, which was fairly unremarkable in the report. She has been previously treated for colitis. CBC: WBC count 10.8, hemoglobin 8.8, hematocrit 28.7, platelets 133. CMP: Sodium 132, potassium 4.6, chloride 107, serum bicarb 17, BUN 26, creatinine 1.2, glucose 191. Magnesium 2. LFTs unremarkable. Normal saline infusing at 50 mL/h. Review of Systems Constitutional: Reports fatigue, Reports poor appetite, Denies chills, Denies fever, Denies sweats, Denies weight gain, Denies weight loss Ears, nose, mouth and throat: Denies headache, Denies nasal congestion, Denies nasal discharge, Denies post-nasal drip, Denies sinus pain, Denies sinus pressure Cardiovascular: Reports dyspnea on exertion, Reports leg edema, Reports lightheadedness, Reports syncope, Denies orthopnea, Denies palpitations, Denies paroxysmal nocturnal dyspnea Respiratory: Reports dyspnea, Reports pain on inspiration, Denies congestion, Denies cough, Denies cough with sputum, Denies hemoptysis, Denies home oxygen, Denies wheezing Gastrointestinal: Reports abdominal pain, Reports constipation, Reports loss of appetite, Reports nausea, Denies diarrhea, Denies hematemesis, Denies melena, Denies vomiting Genitourinary: Denies dysuria, Denies flank pain, Denies hematuria, Denies incomplete emptying, Denies urgency, Denies urinary frequency Musculoskeletal: Denies limitation of motion Integumentary: Denies rash Neurological: Reports syncope, Denies balance difficulties, Denies confusion, Denies head injury, Denies headaches, Denies numbness, Denies paresthesias, Denies seizures, Denies tremors, Denies weakness, Denies visual changes Psychiatric: Reports anxiety, Reports depression, Denies suicidal ideation Past Medical History Past Medical History: Coronary Artery Disease (CAD), Diabetes Mellitus, GERD/Reflux, Hyperlipidemia, Hypertension, Liver Disease, Osteoarthritis (OA), Pneumonia Additional Past Medical History / Comment(s): Hx pneumonia yrs ago. Hx kidney stones. Diet controlled diabetic-no longer needs meds. Seasonal allergies. Cirrhosis of liver. No menses in 4 1/2 yrs, states body does not make enough Estrogen. Recurrent pleural effusions. COVID in August 2024 at [facility] History of Any Multi-Drug Resistant Organisms: None Reported Past Surgical History: Appendectomy, Breast Surgery, Cholecystectomy, Coronary Bypass/CABG, Heart Catheterization With Stent, Orthopedic Surgery, Tubal Ligation Additional Past Surgical History / Comment(s): Right wrist carpal tunnel surgery, dental surgery- teeth removed, left breast abcess I&D X3, right breast abcess I&D X2, left ankle surgery, triple CABG 08/09/2024, multiple thoracentesis. Cardiac sents x2 and bilateral carotid stents. Left VATS with talc pleurodesis and placement of left-sided pleurx catheter 09/29/[address] Ortiz Past Anesthesia/Blood Transfusion Reactions: No Reported Reaction, Family History of Problems w/ Anesthesia Additional Past Anesthesia/Blood Transfusion Reaction / Comment(s): No blood transfusion to date. Mom stopped breathing during a surgery and was resuscitated. Date of Last Stent Placement:: 07/30/24 Past Psychological History: Anxiety, Bipolar, Depression Additional Psychological History / Comment(s): Maintained with healthy coping mechanisms; diet and exericse (only suffers from depressive disorder, not the manic type). Smoking Status: Former smoker Past Alcohol Use History: None Reported Additional Past Alcohol Use History / Comment(s): STARTED SMOKING AT AGE 17, QUIT MARCH 16, 2021, SMOKED 1PPD. quit vaping july 2024 Past Drug Use History: Marijuana Additional Drug Use History / Comment(s): COCAINE USE "YEARS AGO ". "Smokes maybe 1 joint daily for pain & bipolar." States hasn't been using lately. - Past Family History Mother Family Medical History: Cancer Additional Family Medical History / Comment(s): schizoaffective disorder Father History Unknown: Yes Family Medical History: Unable to Obtain Additional Family Medical History / Comment(s): Patient did not know her father Medications and Allergies Home Medications Medication Instructions Recorded Confirmed Type Atorvastatin Calcium [Lipitor] 40 mg PO DAILY 09/15/24 11/01/24 History Gabapentin [Neurontin] 300 mg PO HS 09/23/24 11/01/24 History Acetaminophen Tab [Tylenol] 650 mg PO Q4HR PRN tab 10/01/24 11/01/24 Rx Aspirin 81 mg PO DAILY tab 10/01/24 11/01/24 Rx Losartan [Cozaar] 12.5 mg PO DAILY PRN 10/03/24 11/01/24 History Fluticasone Nasal [place] [Flonase 2 spray EA NOSTRIL DAILY #5 ml 10/14/24 11/01/24 Rx Nasal [place]] Furosemide [Lasix] 40 mg PO BID #60 tablet 10/14/24 11/01/24 Rx Loratadine [Claritin] 5 mg PO DAILY #30 tab 10/14/24 11/01/24 Rx Ondansetron Odt [Zofran ODT] 4 mg PO Q8HR PRN #20 tab 10/14/24 11/01/24 Rx Petrolat,White/Shlomo/8-Hydroxyqu 1 gm TOPICAL TID PRN gm 10/14/24 11/01/24 Rx [Bag Ball] Spironolactone [Aldactone] 100 mg PO BID@0600,1500 30 Days 10/14/24 11/01/24 Rx #320 tab Sennosides-Docusate Sodium 2 tab PO HS 10/19/24 11/01/24 History [Senokot-S] Metoprolol Tartrate [Lopressor] 25 mg PO BID 11/01/24 11/01/24 History Pantoprazole [Protonix] 40 mg PO BID 11/01/24 11/01/24 History Allergies Allergy/AdvReac Type Severity Reaction Status Date / Time capsaicin Allergy Rash/Hives/ Verified 11/01/24 16:14 Swelling Physical Exam Vitals: Vital Signs Temp Pulse Resp BP BP Pulse Ox 11/02/24 01:15 86 12 82/63 100 11/02/24 01:00 96 15 108/79 98 11/02/24 00:45 89 10 L 95/59 99 11/02/24 00:36 93 18 99 11/02/24 00:30 93 15 86/48 100 11/02/24 00:15 86 10 L 91/59 100 11/02/24 00:00 97.5 F L 89 11 L 88/53 99 11/01/24 23:45 101 H 14 87/37 100 11/01/24 23:30 101 H 11 L 94/62 100 11/01/24 23:15 85 10 L 97/66 99 11/01/24 23:00 86 12 90/58 98 11/01/24 22:45 89 12 96/69 90 L 11/01/24 22:30 86 18 94/48 94 L 11/01/24 22:15 94 19 97 11/01/24 22:00 90 12 96/59 93 L 11/01/24 21:45 94 12 94/52 91 L 11/01/24 21:30 105 H 12 95/51 94 L 11/01/24 21:15 95/50 11/01/24 20:45 109 H 12 106/52 94 L 11/01/24 20:30 110 H 14 108/64 93 L 11/01/24 20:15 113 H 17 102/61 96 11/01/24 20:00 97.3 F L 116 H 15 91/51 95 11/01/24 19:45 111 H 14 112/62 95 11/01/24 19:30 105 H 12 98/65 93 L 11/01/24 19:15 105 H 15 105/63 96 11/01/24 19:00 113 H 13 96/68 96 11/01/24 18:45 108 H 13 77/44 94 L 11/01/24 18:30 95 14 95 11/01/24 18:15 90 14 71/58 94 L 11/01/24 18:00 96 15 94/52 95 11/01/24 17:45 93 24 94 L 11/01/24 17:30 94 16 93 L 11/01/24 17:15 102 H 15 104/54 96 11/01/24 17:00 111 H 21 100/61 93 L 11/01/24 16:45 118 H 16 93 L 11/01/24 16:30 114 H 14 88/64 91 L 11/01/24 16:15 115 H 11 L 107/69 92 L 11/01/24 16:00 98.4 F 112 H 17 111/57 95 11/01/24 15:45 112 H 19 110/59 92 L 11/01/24 15:30 113 H 24 121/69 93 L 11/01/24 15:15 111 H 18 115/62 92 L 11/01/24 15:07 14 121/69 94 L 11/01/24 15:00 106 H 16 121/71 91 L Intake and Output 11/01/24 11/01/24 11/02/24 14:59 22:59 06:59 Intake Total 300 300.489 Output Total 1300 550 Balance -1000 -249.511 Intake: IV 300 150 Sodium Chloride 0.9% 1, 300 150 000 ml @ 50 mls/hr IV . Q20H GABO Rx#:[id number] Intake, IV Titration 150.489 Amount DOPamine DRIP 800 mg In 136.074 Dextrose/Water 1 250ml. bag @ 1 MCG/KG/MIN 1.811 mls/hr IV .Q24H GABO Rx#: [id number] Norepinephrine 4 mg In 14.415 Sodium Chloride 0.9% 250 ml @ 0.03 MCG/KG/MIN 11. 041 mls/hr IV .Q23H1M GABO Rx#:[id number] Output: Urine 1300 550 Other: Voiding Method Bedside Commode Bedside Commode Weight 96.6 kg 96.6 kg GENERAL EXAM: Alert, 49-year-old female, comfortable in no apparent distress. HEAD: Normocephalic and atraumatic EYES: Normal reaction of pupils, equal size. NOSE: Clear with pink turbinates. THROAT: No erythema or exudates. Edentulous. NECK: No masses, no JVD. CHEST: No chest wall deformity. Approximated and pink sternal incision, without drainage. Left-sided Pleurx catheter noted. LUNGS: Equal air entry with diminished left lower lobe lung sounds. On 2 L/min nasal cannula. No conversational dyspnea or accessory muscle use.. CVS: S1 and S2 normal with no audible murmur, regular rhythm. No extra heart sounds. Tachycardic. dopamine is infusing at 10 mcg/kg/min. ABDOMEN: Obese abdomen, with some ecchymotic areas, active bowel sounds, no rebound tenderness, no periumbilical or flank bruising, no hepatosplenomegaly, no guarding or rigidity. SPINE: No scoliosis or deformity SKIN: No rashes CENTRAL NERVOUS SYSTEM: No focal deficits, tone is normal in all 4 extremities. EXTREMITIES: There is mild nonpitting bilateral lower extremity swelling. No clubbing, or cyanosis. Peripheral pulses are intact. Results - Laboratory Findings CBC and BMP: 11/01/24 16:24 11/01/24 16:24 Abnormal lab findings: Abnormal Labs 11/01/24 12 16:24 16:24 WBC 10.8 H RBC 3.75 L Hgb 8.8 L D Hct 28.7 L MCV 76.6 L MCH 23.4 L MCHC 30.6 L RDW 17.8 H Plt Count 133 L Neutrophils # 9.1 H Lymphocytes # 0.8 L Sodium 132 L Carbon Dioxide 17 L BUN 26 H Creatinine 1.20 H Glucose 191 H Total Bilirubin 2.2 H AST 42 H Total Protein 5.9 L Albumin 2.9 L - Diagnostic Findings Chest x-ray: image reviewed CT scan - chest: image reviewed Assessment and Plan Assessment: Suspect syncopal event Bradycardia, hypotension, and shock; currently on dopamine, which is infusing at 10 mcg/kg/min. Small to moderate-sized pericardial effusion, with history of subxiphoid pe ricardial window performed 10/04/2024. Drain was subsequently discontinued. Follow-up chest CT showing a persistent small to moderate size pericardial effusion without tamponade features. There was resolution of gas within the pericardium seen on previous CTs. Moderate to large left-sided pleural effusion. Patient does have left Pleurx catheter present. No obvious traumatic rib fractures or pneumothoraces. Acute kidney injury, improving Nausea and vomiting and recent treatment for enterocolitis Persistent epigastric pain, EGD done August 31, 2024, which was fairly unremarkable per the report Microcytic, hypochromic anemia, hemoglobin stable at 8.8 g/dL, patient denies any blood loss Coronary artery disease with previous PCI/stenting and subsequent CABG x 3 normed on August 09, 2024, followed by a prolonged and complicated hospital course. Left-sided/recurrent pleural effusion requiring multiple thoracentesis, and did undergo left thoracoscopy, talc pleurodesis, and placement of a left Pleurx catheter on 09/29/2024. Pleurx catheter remains, the patient has a large left-s ided pleural effusion. Acute hypoxemic respiratory failure, secondary to above History of right-sided pleural effusion with previous thoracentesis History of hypertension History of hyperlipidemia History of diabetes mellitus History of bilateral carotid artery stenosis, with a greater than 70% stenosis of the left carotid bifurcation and less than 50% stenosis to the right carotid bifurcation History of breast abscess History of liver disease History of alcohol abuse Bipolar disorder/anxiety Chronic marijuana use Obesity, with a BMI of 37.7 kg/m Plan: Patient's medications, labs, imaging reviewed Continue supplemental oxygen maintain oxygen saturation of 92% or greater Patient's left Pleurx chest catheter will need to be drained. Chest CT demonstrating a moderate to large left-sided pleural effusion. Pericardial effusion noted as small to moderate in size. Recommend follow-up echocardiogram if not previously done at [facility]. Cardiology and cardiothoracic surgery are consulted. Patient is currently on dopamine which is infusing at 10 mcg/kg/min. Patient is now actually tachycardic; appears sinus tachycardia on bedside monitor. Obtain EKG. Will transition patient to Levophed to maintain MAP greater than 65 mmHg. Continue IV maintenance fluids DVT prophylaxis: Heparin subcu GI prophylaxis: Protonix daily Patient is being monitored in the intensive care unit, and further recommendations are forthcoming. I have personally seen and examined the patient, performed the documentation and the assessment and plan as written. Number of minutes spent on the visit:20 Time with Patient: Greater than 30
--- NOTE | 2024-11-02 04:25 | HP ---
HISTORY AND PHYSICAL CHIEF COMPLAINT: Cardiorespiratory arrest. HISTORY OF PRESENT ILLNESS: This lady is transferred from [facility]. She was admitted there initially for intractable nausea and vomiting and epigastric pain. She has had this on and off for some time. She had been evaluated by Gastroenterology at this hospital, but they could not do a scope because she had to lie on her left side and she has a PleurX valve on the left chest for chronic pleural effusion. While she was at [facility], she had intermittent episodes of epigastric pain and vomiting, but no diarrhea. She was seen by Surgery, who thought that she may have an umbilical hernia, but this really did not fit the picture. Her health issues are complicated. In that, she has had coronary artery disease with a CABG and then subsequently developed pericardial effusion and recently underwent a pericardial window at this hospital. She also has a valve in the left chest for an effusion. She has a past history of substance abuse. She was having some problems with episodes of hypotension over the last several days, which were unexplained. She would then rebound systolic pressures of around 110 or 120. She never had dizziness, shortness of breath, chest pain, etc. Then, suddenly today she had a cardiorespiratory arrest, which required resuscitation and she was moved to the ICU [facility], where she was found to have a pericardial effusion with suspected tamponade and she was transferred to this institution. Review of systems, past medical history, family history, and social history are unchanged and can be found in records from [facility]. PHYSICAL EXAMINATION: VITAL SIGNS: Her pressors are being weaned and her blood pressure is running around 110 systolically and 55 to 60 diastolically. Pulse ox 96%. HEAD, EARS, EYES, NOSE, AND THROAT: Unremarkable. GENERAL: She was slightly pale. CHEST: Demonstrated good breath sounds bilaterally. CARDIAC: Sounded sinus. ABDOMEN: Soft and she was slightly tender over the epigastrium. EXTREMITIES: Normal. NEUROLOGICAL: She is intact. ASSESSMENT AND PLAN: She is admitted to the hospital with diagnoses of, 1. Cardiorespiratory arrest. 2. Pericardial effusion. 3. Recent coronary artery bypass graft. 4. Recent pericardial window for pericardial effusion. 5. Left-sided pleural effusion with PleurX valve. PLAN: 1. Bedrest. 2. ICU management. 3. Consult with Cardiology and Pulmonology. MMODL / IJN: [id number] /
[2024-11-02] MEDS: SPIRONOLACTONE 25 MG TAB PO SCH (06:19)
[2024-11-02 06:33] LABS: Anisocytosis Slight; Basophils % (A) 0 %; Eosinophils # (A) 0.1 k/uL (0-0.7); Eosinophils % (A) 1 %; HCT 26.4 % (34.0-46.0); Hypochromasia Marked; Lymphocytes # (A) 1.2 k/uL (1.0-4.8); Lymphocytes % (A) 15 %; MCH 23.2 pg (25.0-35.0); MCHC 30.4 g/dL (31.0-37.0); MCV 76.6 fL (80.0-100.0); Mean Platelet Volume 11.8; Microcytosis Slight; Monocytes # (A) 0.9 k/uL (0-1.0); Monocytes % (A) 11 %; Neutrophils # (A) 6.1 k/uL (1.3-7.7); Neutrophils % (A) 72 %; Platelet Count 119 k/uL (150-450); RBC 3.44 m/uL (3.80-5.40); RDW 17.9 % (11.5-15.5); WBC 8.4 k/uL (3.8-10.6)
[2024-11-02 06:42] LABS: Appearance,Urine Clear (Clear); Bilirubin,Urine Negative (Negative); Blood,Urine Negative (Negative); Color,Urine Colorless; Glucose,Urine (UA) Negative (Negative); Ketones,Urine Negative (Negative); Leukocyte Esterase,Urine Negative (Negative); Nitrite,Urine Negative (Negative); PH, Urine 5.5 (5.0-8.0); Protein,Urine Negative (Negative); Specific Gravity,Urine 1.008 (1.001-1.035); Urobilinogen,Urine <2.0 mg/dL (<2.0)
[2024-11-02 07:04] LABS: African American GFR (CKD) 73 (>60 ml/min/1.73 sqM); Anion Gap 5 mmol/L; Blood Urea Nitrogen 22 mg/dL (7-17); Calcium 8.6 mg/dL (8.4-10.2); Carbon Dioxide 17 mmol/L (22-30); Chloride 112 mmol/L (98-107); Glucose 119 mg/dL (74-99); Non-African American GFR(CKD) 63 (>60 ml/min/1.73 sqM); Potassium 4.9 mmol/L (3.5-5.1); Sodium 134 mmol/L (137-145)
[2024-11-02] MEDS: LORATADINE 10 MG TAB PO SCH (08:00)
[2024-11-02] MEDS: ATORVASTATIN 40 MG TAB PO SCH (08:13)
[2024-11-02] MEDS: ASPIRIN 81 MG PO SCH (08:13)
[2024-11-02] MEDS: PANTOPRAZOLE 40 MG/10 ML VIAL IV SCH (08:14)
--- NOTE | 2024-11-02 08:16 | P.GSCN ---
History of Present Illness Consult date: 11/02/24 Reason for Consult: Pericardial effusion Requesting physician: Jake Tolliver History of present illness: This is a 49-year-old female patient who follows with Dr. Yaniv Lala for primary care, Dr. Ogden for cardiology, and Dr. Julio for pulmonology. She has a previous medical history of multiple medical comorbidities including coronary artery disease with previous PCI and off-pump CABG x 3 on August 09, 2024, left-sided pleural effusion status post thoracentesis x 4 with subsequent left-sided VATS with talc pleurodesis and placement of left-sided Pleurx catheter 09/29/2024, right-sided pleural effusion status post thoracentesis x 1, large pericardial effusion with Raymundo syndrome status post subxiphoid pericardial window 10/04/2024, pneumopericardium, left internal carotid artery stenosis, diabetes mellitus, hypertension, EtOH abuse, cirrhosis of the liver with persistent effusions, multiple breast abscesses treated with antibiotics, bipolar disorder/anxiety, previous tobacco dependence, marijuana use, and osteoarthritis. She has had a complicated recovery after her open heart surgery and has had multiple ER visits and readmissions, most recently for abdominal pain/nausea/vomiting. Her most recent visit here at [facility] was from October 19 through October 23 for abdominal symptoms. She was discharged to home and stated she did feel good initially, but after 3 days her abdominal pain reoccurred and she went to [facility]. She was admitted there an d had multiple consults including nephrology for acute kidney injury, general surgery who felt she likely has an umbilical hernia, cardiology as well as pulmonology. Per the patient she was supposed to be discharged yesterday, however she got up and walked herself to the bathroom. When getting off the toilet she started to feel lightheaded and dizzy, states she called out for help and her nurse came in and she was lowered to the floor where she lost consciousness. Apparently a CODE BLUE was called and CPR was initiated, unclear if she truly lost a pulse. Patient states when she came to there was multiple people in her room and she is unsure how long she was unconscious. Apparently she had A-fib RVR then proceeded to become bradycardic. She was hypotensive and was started on IV dopamine. She was transferred to [facility] for further care with cardiothoracic surgery consult regarding pericardial effusion on CT scan. Of note patient has a left sided Pleurx catheter which is drained every 2 to 3 days with 50 to 200 mL fluid removed each time, on previous admissions patient has become hypotensive with every episode of fluid removal and she has always recovered on her own within 24 hours. Review of Systems Review of systems was completed and was negative except as noted - Cardiovascular Reports shortness of breath - Gastrointestinal Reports abdominal pain, Reports nausea Past Medical History Past Medical History: Atrial Fibrillation, Coronary Artery Disease (CAD), Diabetes Mellitus, GERD/Reflux, Hyperlipidemia, Hypertension, Liver Disease, Osteoarthritis (OA), Pneumonia, Syncope Additional Past Medical History / Comment(s): Hx pneumonia yrs ago. Hx kidney stones. Diet controlled diabetic. Seasonal allergies. Left internal carotid artery stenosis. Cirrhosis of liver. No menses in 4 1/2 yrs, states body does not make enough Estrogen. Recurrent pleural effusions. Pericardial effusion History of Any Multi-Drug Resistant Organisms: None Reported Past Surgical History: Appendectomy, Breast Surgery, Cholecystectomy, Coronary Bypass/CABG, Heart Catheterization With Stent, Orthopedic Surgery, Tubal Ligation Additional Past Surgical History / Comment(s): Right wrist carpal tunnel surgery, dental surgery- teeth removed, left breast abcess I&D X3, right breast abcess I&D X2, left ankle surgery, triple CABG 08/09/2024, multiple thoracentesis. Cardiac sents x2 and bilateral carotid stents. Left VATS with talc pleurodesis and placement of left-sided pleurx catheter 09/29/[address] Ortiz; subxiphoid pericardial window 10/04/2024 Past Anesthesia/Blood Transfusion Reactions: No Reported Reaction, Family History of Problems w/ Anesthesia Additional Past Anesthesia/Blood Transfusion Reaction / Comm: No blood transfusion to date. Mom stopped breathing during a surgery and was resuscitate d. Date of Last Stent Placement:: 07/30/24 Past Psychological History: Anxiety, Bipolar, Depression Additional Psychological History / Comment(s): Maintained with healthy coping mechanisms; diet and exericse (only suffers from depressive disorder, not the manic type). Smoking Status: Former smoker Past Alcohol Use History: None Reported Additional Past Alcohol Use History / Comment(s): STARTED SMOKING AT AGE 17, QUIT MARCH 16, 2021, SMOKED 1PPD. quit vaping july 2024 Past Drug Use History: Marijuana Additional Drug Use History / Comment(s): COCAINE USE "YEARS AGO ". "Smokes maybe 1 joint daily for pain & bipolar." - Past Family History Mother Family Medical History: Cancer Additional Family Medical History / Comment(s): schizoaffective disorder Father History Unknown: Yes Family Medical History: Unable to Obtain Additional Family Medical History / Comment(s): Patient did not know her father Medications and Allergies Home Medications Medication Instructions Recorded Confirmed Type Atorvastatin Calcium [Lipitor] 40 mg PO DAILY 09/15/24 11/01/24 History Gabapentin [Neurontin] 300 mg PO HS 09/23/24 11/01/24 History Acetaminophen Tab [Tylenol] 650 mg PO Q4HR PRN tab 10/01/24 11/01/24 Rx Aspirin 81 mg PO DAILY tab 10/01/24 11/01/24 Rx Losartan [Cozaar] 12.5 mg PO DAILY PRN 10/03/24 11/01/24 History Fluticasone Nasal [place] [Flonase 2 spray EA NOSTRIL DAILY #5 ml 10/14/24 11/01/24 Rx Nasal [place]] Furosemide [Lasix] 40 mg PO BID #60 tablet 10/14/24 11/01/24 Rx Loratadine [Claritin] 5 mg PO DAILY #30 tab 10/14/24 11/01/24 Rx Ondansetron Odt [Zofran ODT] 4 mg PO Q8HR PRN #20 tab 10/14/24 11/01/24 Rx Petrolat,White/Shlomo/8-Hydroxyqu 1 gm TOPICAL TID PRN gm 10/14/24 11/01/24 Rx [Bag [place]per] Spironolactone [Aldactone] 100 mg PO BID@0600,1500 30 Days 10/14/24 11/01/24 Rx #320 tab Sennosides-Docusate Sodium 2 tab PO HS 10/19/24 11/01/24 History [Senokot-S] Metoprolol Tartrate [Lopressor] 25 mg PO BID 11/01/24 11/01/24 History Pantoprazole [Protonix] 40 mg PO BID 11/01/24 11/01/24 History Allergies Allergy/AdvReac Type Severity Reaction Status Date / Time capsaicin Allergy Rash/Hives/ Verified 11/01/24 16:14 Swelling Surgical - Exam Vital Signs Pulse Resp BP Pulse Ox 106 H 16 121/71 91 L 11/01/24 15:00 11/01/24 15:00 11/01/24 15:00 11/01/24 15:00 CONSTITUTIONAL: Awake and alert, appears comfortable, cooperative, well- developed, well-nourished, no pain, no acute distress EYES: Pupils equal, round, reactive to light, normal ocular movement ENT: Moist mucous membranes without oral lesions present, edentulous NECK: No masses, no bruits, trachea midline RESPIRATORY: Lungs sounds diminished in the bases bilaterally. Respirations even, nonlabored. Currently on 2 L nasal cannula with oxygen saturation 100%. Strong cough. No chest wall deformities. No clubbing or cyanosis present CARDIOVASCULAR: S1, S2 present. Regular rate and rhythm, sinus rhythm on telemetry. Palpable peripheral pulses bilaterally. Bilateral lower extremity edema present. No calf pain or tenderness noted. GASTROINTESTINAL: Abdomen soft, nontender, nondistended without masses or organomegaly noted. There is no rebound or guarding present. Active bowel sounds present 4 quadrants. GENITOURINARY: Continues to void INTEGUMENTARY: Skin is warm and dry. Anterior sternal chest incision well- healed. Pericardial window site clean, no drainage, granulation tissue present NEUROLOGIC: Cranial nerves II through XII intact, normal coordination, no obvious motor or sensory deficits, speech is normal MUSKULOSKELETAL: Able to move all extremities, strength equal bilaterally, normal posture PSYCHIATRIC: Alert and oriented to person place and time, appropriate affect, intact judgment and insight Results - Labs 11/02/24 05:51 11/02/24 05:51 Abnormal Lab Results - Last 24 Hours (Table) 11/01/24 11/01/24 11/02/24 Range/Units 16:24 16:24 05:51 WBC 10.8 H (3.8-10.6) k/uL RBC 3.75 L 3.44 L (3.80-5.40) m/uL Hgb 8.8 L D 8.0 L (11.4-16.0) gm/dL Hct 28.7 L 26.4 L (34.0-46.0) % MCV 76.6 L 76.6 L (80.0-100.0) fL MCH 23.4 L 23.2 L (25.0-35.0) pg MCHC 30.6 L 30.4 L (31.0-37.0) g/dL RDW 17.8 H 17.9 H (11.5-15.5) % Plt Count 133 L 119 L (150-450) k/uL Neutrophils # 9.1 H (1.3-7.7) k/uL Lymphocytes # 0.8 L (1.0-4.8) k/uL Sodium 132 L (137-145) mmol/L Chloride (98-107) mmol/L Carbon Dioxide 17 L (22-30) mmol/L BUN 26 H (7-17) mg/dL Creatinine 1.20 H (0.52-1.04) mg/dL Glucose 191 H (74-99) mg/dL Total Bilirubin 2.2 H (0.2-1.3) mg/dL AST 42 H (14-36) U/L Total Protein 5.9 L (6.3-8.2) g/dL Albumin 2.9 L (3.5-5.0) g/dL 11/02/24 Range/Units 05:51 WBC (3.8-10.6) k/uL RBC (3.80-5.40) m/uL Hgb (11.4-16.0) gm/dL Hct (34.0-46.0) % MCV (80.0-100.0) fL MCH (25.0-35.0) pg MCHC (31.0-37.0) g/dL RDW (11.5-15.5) % Plt Count (150-450) k/uL Neutrophils # (1.3-7.7) k/uL Lymphocytes # (1.0-4.8) k/uL Sodium 134 L (137-145) mmol/L Chloride 112 H (98-107) mmol/L Carbon Dioxide 17 L (22-30) mmol/L BUN 22 H (7-17) mg/dL Creatinine 1.05 H (0.52-1.04) mg/dL Glucose 119 H (74-99) mg/dL Total Bilirubin (0.2-1.3) mg/dL AST (14-36) U/L Total Protein (6.3-8.2) g/dL Albumin (3.5-5.0) g/dL Diabetes panel 11/01/24 11/02/24 Range/Units 16:24 05:51 Sodium 132 L 134 L (137-145) mmol/L Potassium 4.6 4.9 (3.5-5.1) mmol/L Chloride 107 112 H (98-107) mmol/L Carbon Dioxide 17 L 17 L (22-30) mmol/L BUN 26 H 22 H (7-17) mg/dL Creatinine 1.20 H 1.05 H (0.52-1.04) mg/dL Glucose 191 H 119 H (74-99) mg/dL Calcium 8.7 8.6 (8.4-10.2) mg/dL AST 42 H (14-36) U/L ALT 28 (4-34) U/L Alkaline Phosphatase 88 (38-126) U/L Total Protein 5.9 L (6.3-8.2) g/dL Albumin 2.9 L (3.5-5.0) g/dL Calcium panel 11/01/24 11/02/24 Range/Units 16:24 05:51 Calcium 8.7 8.6 (8.4-10.2) mg/dL Albumin 2.9 L (3.5-5.0) g/dL Pituitary panel 11/01/24 11/02/24 Range/Units 16:24 05:51 Sodium 132 L 134 L (137-145) mmol/L Potassium 4.6 4.9 (3.5-5.1) mmol/L Chloride 107 112 H (98-107) mmol/L Carbon Dioxide 17 L 17 L (22-30) mmol/L BUN 26 H 22 H (7-17) mg/dL Creatinine 1.20 H 1.05 H (0.52-1.04) mg/dL Glucose 191 H 119 H (74-99) mg/dL Calcium 8.7 8.6 (8.4-10.2) mg/dL Adrenal panel 11/01/24 11/02/24 Range/Units 16:24 05:51 Sodium 132 L 134 L (137-145) mmol/L Potassium 4.6 4.9 (3.5-5.1) mmol/L Chloride 107 112 H (98-107) mmol/L Carbon Dioxide 17 L 17 L (22-30) mmol/L BUN 26 H 22 H (7-17) mg/dL Creatinine 1.20 H 1.05 H (0.52-1.04) mg/dL Glucose 191 H 119 H (74-99) mg/dL Calcium 8.7 8.6 (8.4-10.2) mg/dL Total Bilirubin 2.2 H (0.2-1.3) mg/dL AST 42 H (14-36) U/L ALT 28 (4-34) U/L Alkaline Phosphatase 88 (38-126) U/L Total Protein 5.9 L (6.3-8.2) g/dL Albumin 2.9 L (3.5-5.0) g/dL - Imaging Chest x-ray: report reviewed, image reviewed CT scan - chest: report reviewed, image reviewed Assessment and Plan Assessment: Abdominal pain, nausea, vomiting this admission Pericardial effusion Left-sided pleural effusion Syncopal episode with questionable cardiac arrest, CPR Acute kidney injury Thrombocytopenia, hyponatremia, chronic anemia Lactic acidosis at [facility], resolved A-fib with RVR followed by bradycardia at [facility], currently sinus Hypotension, currently on IV Levophed History of coronary artery disease with previous PCI and off-pump CABG x 3 on August 09, 2024 Left-sided pleural effusion status post thoracentesis x 4 with subsequent left- sided VATS with talc pleurodesis and placement of left-sided Pleurx catheter 09/29/2024 Right-sided pleural effusion status post thoracentesis x 1 Large pericardial effusion with Raymundo syndrome status post subxiphoid pericardial window 10/04/2024 Pneumopericardium Multiple admissions for abdominal pain, nausea, vomiting Left internal carotid artery stenosis, greater than 70% Diabetes mellitus Hypertension EtOH abuse Cirrhosis of the liver with persistent effusions Multiple breast abscesses treated with antibiotics Bipolar disorder/anxiety Previous tobacco dependence Marijuana use Osteoarthritis Plan: The patient was seen and examined sitting up in recliner in the intensive care unit in no acute distress. Chart from [facility] as well as x- ray and CAT scan performed here were reviewed. Case was discussed in detail with Dr. Ortiz yesterday who did review with the patient's chest x-ray upon a dmission to [facility] and who recommended repeat CAT scan. The patient is currently in sinus rhythm with heart rate in the 80s, blood pressure stable with systolic pressure in the 90s and mean arterial pressure greater than 65, currently on IV Levophed. She did receive Lopressor last night. She denies any current abdominal pain or nausea. Does complain of some right sided chest discomfort likely from CPR which was done at [facility]. The patient does plan to drain her left-sided Pleurx catheter again today. Will review CAT scan results with Dr. Ortiz. Echocardiogram has been ordered, will review once completed. Wean oxygen as tolerated. Increase activity as tolerated. Wean levo as tolerated. Medical management of other comorbidities per internal medicine, prison keeper service, cardiology. Thank you Dr. Tolliver for this consult, we will continue to follow along with you and make further recommendations as appropriate. I have personally seen and examined the patient, performed the documentation and the assessment and plan as written. Number of minutes spent on the visit: 30. KELSEA LimC
--- NOTE | 2024-11-02 09:42 | P.PN ---
Subjective Patient is seen in follow-up for acute kidney injury. Patient was transferred from [facility] yesterday due to pericardial effusion. Creatinine was up to 2.4 this admission and is improved to 1.05. She is currently receiving IV fluids. Denies chest pain or shortness of breath. Vital signs are stable. General: No acute distress. HEENT: Head exam is unremarkable. LUNGS: No audible rhonchi or wheezes. HEART: Rate and Rhythm are regular. ABDOMEN: Nontender. EXTREMITITES: 1+ edema. Objective - Vital Signs Vital signs: Vital Signs Temp 97.6 F 11/02/24 08:00 Pulse 88 11/02/24 09:00 Resp 16 11/02/24 09:00 BP 99/47 11/02/24 09:00 Pulse Ox 96 11/02/24 09:00 FiO2 Intake & Output 11/01/24 11/02/24 11/02/24 18:59 06:59 18:59 Intake Total 100 891.797 600 Output Total 800 1350 Balance -700 -458.203 600 Weight 96.6 kg 108 kg Intake: IV 100 600 100 Sodium Chloride 0.9% 1, 100 600 100 000 ml @ 50 mls/hr IV . Q20H GABO Rx#:[id number] Intake, IV Titration 291.797 Amount DOPamine DRIP 800 mg In 144.149 Dextrose/Water 1 250ml. bag @ 1 MCG/KG/MIN 1.811 mls/hr IV .Q24H GABO Rx#: [id number] Norepinephrine 4 mg In 147.648 Sodium Chloride 0.9% 250 ml @ 0.03 MCG/KG/MIN 11. 041 mls/hr IV .Q23H1M GABO Rx#:[id number] Oral 500 Output: Urine 800 1350 Other: Voiding Method Bedside Commode Bedside Commode Bedside Commode - Labs CBC & Chem 7: 11/02/24 05:51 11/02/24 05:51 Labs: Abnormal Lab Results - Last 24 Hours (Table) 11/01/24 11/01/24 11/02/24 Range/Units 16:24 16:24 05:51 WBC 10.8 H (3.8-10.6) k/uL RBC 3.75 L 3.44 L (3.80-5.40) m/uL Hgb 8.8 L D 8.0 L (11.4-16.0) gm/dL Hct 28.7 L 26.4 L (34.0-46.0) % MCV 76.6 L 76.6 L (80.0-100.0) fL MCH 23.4 L 23.2 L (25.0-35.0) pg MCHC 30.6 L 30.4 L (31.0-37.0) g/dL RDW 17.8 H 17.9 H (11.5-15.5) % Plt Count 133 L 119 L (150-450) k/uL Neutrophils # 9.1 H (1.3-7.7) k/uL Lymphocytes # 0.8 L (1.0-4.8) k/uL Sodium 132 L (137-145) mmol/L Chloride (98-107) mmol/L Carbon Dioxide 17 L (22-30) mmol/L BUN 26 H (7-17) mg/dL Creatinine 1.20 H (0.52-1.04) mg/dL Glucose 191 H (74-99) mg/dL Total Bilirubin 2.2 H (0.2-1.3) mg/dL AST 42 H (14-36) U/L Total Protein 5.9 L (6.3-8.2) g/dL Albumin 2.9 L (3.5-5.0) g/dL 11/02/24 Range/Units 05:51 WBC (3.8-10.6) k/uL RBC (3.80-5.40) m/uL Hgb (11.4-16.0) gm/dL Hct (34.0-46.0) % MCV (80.0-100.0) fL MCH (25.0-35.0) pg MCHC (31.0-37.0) g/dL RDW (11.5-15.5) % Plt Count (150-450) k/uL Neutrophils # (1.3-7.7) k/uL Lymphocytes # (1.0-4.8) k/uL Sodium 134 L (137-145) mmol/L Chloride 112 H (98-107) mmol/L Carbon Dioxide 17 L (22-30) mmol/L BUN 22 H (7-17) mg/dL Creatinine 1.05 H (0.52-1.04) mg/dL Glucose 119 H (74-99) mg/dL Total Bilirubin (0.2-1.3) mg/dL AST (14-36) U/L Total Protein (6.3-8.2) g/dL Albumin (3.5-5.0) g/dL Assessment and Plan Plan: Assessment: 1. Acute kidney injury secondary to ATN secondary to hypotension and hypovolemia improved with IV hydration. Creatinine 1.[address] scan from October 2024 showed no evidence of hydronephrosis. Bilateral nonobstructing stones were noted. Baseline creatinine near 1. 2. Pericardial effusion status post pericardial window October 04, 2024. 3. Pleural effusions requiring thoracentesis and also history of left-sided VATS. 4. Coronary disease status post CABG in August 2024. 5. Diabetes mellitus. 6. Anemia. Rule out iron deficiency. 7. Metabolic acidosis secondary to IV fluids. Plan: Maintain gentle IV hydration. Wean vasopressors. Follow-up echocardiogram. Await CTS recommendations. Add oral bicarb. Check iron studies.
[2024-11-02] MEDS: SODIUM BICARBONATE TAB 650 MG TAB PO SCH (10:22)
--- NOTE | 2024-11-02 12:29 | CA ---
Transthoracic Echo Report Name: Yovana Ramos Age: 49 Gender: F : 1975 Exam Date: 11/02/2024 09:21 Exam Location: [facility] Ht (in): 63 Wt (lb): 238 Ordering Physician: Waylon Harry MD ([id number]) Attending/Referring Phys: Piero YOUNG Drier Operator Helper Enedelia Thurston RDCS Procedure CPT: Indications: pericardial effusion Cardiac Hx: Technical Quality: Fair Contrast 1: Total Dose (mL): Contrast 2: Total Dose (mL): MEASUREMENTS (Male / Female) Normal Values 2D ECHO LV Diastolic Diameter PLAX 4.3 cm 4.2 - 5.9 / 3.9 - 5.3 cm LV Systolic Diameter PLAX 2.5 cm IVS Diastolic Thickness 0.9 cm 0.6 - 1.0 / 0.6 - 0.9 cm LVPW Diastolic Thickness 1.2 cm 0.6 - 1.0 / 0.6 - 0.9 cm LV Relative Wall Thickness 0.5 RV Internal Dim ED PLAX 1.8 cm LA Systolic Diameter LX 4.0 cm 3.0 - 4.0 / 2.7 - 3.8 cm FINDINGS Left Ventricle Left ventricular ejection fraction is estimated at 55-60%. Right Ventricle Right Atrium Left Atrium Mitral Valve Aortic Valve Tricuspid Valve Pulmonic Valve Pericardium Moderate loculated pericardial effusion. Pericardial effusion filled with fibrous strands. Right pleural effusion. Left pleural effusion. Aorta CONCLUSIONS Left ventricular ejection fraction 55-60% Moderate pericardial effusion with fibrous strands No cardiac tamponade physiology Normal IVC dimensions with greater than 50% respiratory variation consistent with normal right atrial filling pressures Previewed by: Dr. Jared Ogden DO (Electronically Signed) Final Date: 02 November 2024 12:28
[2024-11-02] MEDS: NYSTATIN 100,000 UNIT/GM POWD 15 GM TOPICAL PRN (16:46)
--- NOTE | 2024-11-02 23:07 | CONS ---
CONSULTATION CHIEF COMPLAINT: Pleuropericardial effusion. HISTORY OF PRESENT ILLNESS: This is a 49-year-old lady with history of coronary artery disease, status post bypass surgery complicated by recurrent episodes of left-sided pleural effusions, who underwent multiple thoracenteses and recently underwent VATS procedure with a left- sided chest tube placement, diabetes, hypertension, liver disease, bipolar mood disorder, who was admitted to [facility] and developed episodes of pleural effusion and was found to have pericardial effusion. Her initial presentation was related to epigastric discomfort, but she could not undergo endoscopic evaluation. The patient apparently had syncope and required brief CPR. She was not intubated and was not on the vent. She apparently was in atrial fibrillation with rapid ventricular rate. She is transferred over to [facility] because of concerns for enlarging pericardial effusion. At the time of my evaluation this morning, patient is comfortable at rest. Stable hemodynamically and in no apparent distress. Heart rate is 70 beats per minute, blood pressure is 104/66, respiratory rate is 12, and O2 saturation is 98%. An EKG showed sinus rhythm, poor R-wave progression, and ST-T wave changes. CT scan of the chest revealed [id number] amount of pericardial effusion and [id number] left pleural effusion. I am going to repeat an echo on her to document the pericardial effusion at this facility. She is currently on Levophed for hypotension, on aspirin and Lipitor, and on Lopressor. PAST MEDICAL HISTORY: Significant for chronic liver disease with cirrhosis and CAD, status post CABG. MEDICATIONS AT HOME: 1. Protonix. 2. Aldactone. 3. Lopressor. 4. Cozaar. 5. Claritin. 6. Neurontin. 7. Lasix. 8. Lipitor. 9. Tylenol. ALLERGIES: Capsaicin. FAMILY HISTORY: Negative for premature coronary artery disease. SOCIAL HISTORY: Denies current smoking. There is history of ETOH abuse. REVIEW OF SYSTEMS: 14 out of 14 review of systems has been performed, pertinent are as documented. PHYSICAL EXAMINATION: VITAL SIGNS: Heart rate is 78 beats per minute, blood pressure is 93/57, respiratory rate is 12, and O2 saturation is 98%. NECK: There is no jugular venous distention. Carotid upstroke is normal. There is no bruit. CHEST: Good air entry bilaterally. There is a left-sided chest tube placement and there is diminished air entry at the left base. HEART: First and second heart sounds. No gallop. No murmur. ABDOMEN: Soft. EXTREMITIES: Did not reveal any edema. Peripheral pulses are felt. ASSESSMENT: Coronary artery disease, status post bypass surgery; recurrent pleural effusions with left-sided chest tube placement; history of syncope of unclear etiology at the other institution, we will review the records; hypotension; and pericardial effusion. PLAN: I am going to repeat a 2D echo on her. EKG reveals sinus rhythm. We will decide on further course of action based on how her symptoms evolve. MMODL / IJN: [id number] /
[2024-11-03 04:20] LABS: % Iron Saturation 4.76 (12.00-45.00)
[2024-11-03 06:05] LABS: Anisocytosis Slight; Basophils % (A) 0 %; Eosinophils # (A) 0.1 k/uL (0-0.7); Eosinophils % (A) 2 %; HCT 26.7 % (34.0-46.0); HGB 7.7 gm/dL (11.4-16.0); Hypochromasia Marked; Lymphocytes % (A) 20 %; MCHC 28.7 g/dL (31.0-37.0); MCV 80.1 fL (80.0-100.0); Mean Platelet Volume 8.2; Microcytosis Slight; Monocytes # (A) 0.4 k/uL (0-1.0); Monocytes % (A) 8 %; Neutrophils # (A) 3.2 k/uL (1.3-7.7); Neutrophils % (A) 68 %; RBC 3.34 m/uL (3.80-5.40); RDW 17.9 % (11.5-15.5); WBC 4.7 k/uL (3.8-10.6)
[2024-11-03 06:22] LABS: African American GFR (CKD) >90 (>60 ml/min/1.73 sqM); Anion Gap 6 mmol/L; Blood Urea Nitrogen 14 mg/dL (7-17); Calcium 7.9 mg/dL (8.4-10.2); Carbon Dioxide 18 mmol/L (22-30); Chloride 110 mmol/L (98-107); Glucose 161 mg/dL (74-99); Non-African American GFR(CKD) 82 (>60 ml/min/1.73 sqM); Potassium 3.5 mmol/L (3.5-5.1); Sodium 134 mmol/L (137-145)
[2024-11-03 06:25] LABS: Platelet Count 97 k/uL (150-450)
[2024-11-03] MEDS ORDERED: Potassium Replacement Protocol 1 EACH MISC MISCELLANE PRN (06:40)
[2024-11-03] MEDS: MIDODRINE 5 MG TAB PO SCH (06:49)
[2024-11-03] MEDS: POTASSIUM CHLORIDE ER 20 MEQ TAB.ER PO SCH (06:49)
--- NOTE | 2024-11-03 08:45 | P.PN ---
Subjective Progress Note Date: 11/03/24 Principal diagnosis: Abdominal pain reoccurred with subsequent admission to [facility], with episode of lightheadedness, dizziness hypotension and syncope with CODE BLUE and CPR initiated while at [facility]. Past medical history significant for multiple medical comorbidities including coronary artery disease with previous PCI and off-pump CABG x 3 on August 09, 2024, left-sided pleural effusion status post thoracentesis x 4 with subsequent left-sided VATS with talc pleurodesis and placement of left-sided Pleurx catheter 09/29/2024, right-sided pleural effusion status post thoracentesis x 1, large pericardial effusion with Raymundo syndrome status post subxiphoid pericardial window 10/04/2024, pneumopericardium, left internal carotid artery stenosis, diabetes mellitus, hypertension, EtOH abuse, cirrhosis of the liver with persistent eff usions, multiple breast abscesses treated with antibiotics, bipolar disorder/anxiety, previous tobacco dependence, marijuana use, and osteoarthritis. The patient was seen and examined at her bedside in the intensive care unit today November 03, 2024. She is currently sitting up to the bedside chair, is awake, alert, oriented x 3 and is in no acute apparent distress. She denies any complaints of shortness of breath at this time, although is complaining of some right chest pain which she states is from her previous CPR. She denies any further complaints of nausea or vomiting. She is currently on room air with oxygen saturations 99% and she is achieving 1250 mL on her incentive spirometry with encouragement. Bedside telemetry is showing sinus tachycardia heart rate 101 bpm. She is currently on normal saline at 100 mL/h for hydration. The patient did refuse her breakfast this morning, states she is trying to rule out culprits of her nausea. Norepinephrine drip remains infusing at 0.04 mcg/kg/min for blood pressure support, current blood pressure is 104/73 with a MAP of 84. A limited transthoracic echocardiogram was completed yesterday with the report showing moderate loculated pericardial effusion, pericardial effusion filled with fibrous strands, ejection fraction 55 to 60% and a left pleural effusion. The patient continues to have a left Pleurx catheter in place which was drained yesterday for 900 mL of pleural fluid. Chest x-ray result reviewed. Objective - Vital Signs Vital signs: Vital Signs Temp 98.0 F 11/03/24 04:00 Pulse 103 H 11/03/24 07:00 Resp 15 11/03/24 07:00 BP 104/73 11/03/24 07:00 Pulse Ox 98 11/03/24 07:00 FiO2 Intake & Output 11/02/24 11/03/24 11/03/24 18:59 06:59 18:59 Intake Total 1500.822 845.301 212.268 Output Total 1250 700 0 Balance 250.822 145.301 212.268 Weight 107.3 kg Intake: IV 550 600 200 Sodium Chloride 0.9% 1, 550 600 200 000 ml @ 100 mls/hr IV . Q10H GABO Rx#:[id number] Intake, IV Titration 270.822 245.301 12.268 Amount Norepinephrine 4 mg In 270.822 245.301 12.268 Sodium Chloride 0.9% 250 ml @ 0.03 MCG/KG/MIN 11. 041 mls/hr IV .Q23H1M GABO Rx#:[id number] Oral 500 Tube Feeding 180 Output: Drainage 900 Left Chest 900 Urine 350 700 0 Other: Voiding Method Bedside Commode Bedside Commode Bedside Commode # Voids 1 1 - Exam CONSTITUTIONAL: Sitting up to the bedside chair in the intensive care unit, appears comfortable, cooperative, no apparent acute distress. HEENT: Neck is supple, no JVD, no lymphadenopathy. RESPIRATORY: Lungs sounds essentially clear throughout, diminished to her left lower lobe. Respirations are symmetrical and nonlabored. Currently on room air with oxygen saturations 99%. Able to achieve 1250 mL on her incentive spir ometry. Strong cough. CARDIOVASCULAR: Regular rhythm and tachycardic rate. S1 and S2 present, ne gative for S3, gallop or murmur. Palpable peripheral pulses bilaterally, +1 edema to her bilateral lower extremities. No calf pain or tenderness noted. Bedside telemetry showing sinus tachycardia heart rate 101 bpm. GASTROINTESTINAL: Abdomen soft, nontender, nondistended. Obese. Active bowel sounds present 4 quadrants. Passing flatus. No guarding or rigidity. GENITOURINARY: Continues to void. Urine output 500 mL in the last 8 hours. INTEGUMENTARY: Skin is warm and dry with no evidence of clubbing or cyanosis. Midline sternal incision clean dry and well approximated, and healed. NEUROLOGIC: Cranial nerves II through XII intact. No focal deficits. MUSKULOSKELETAL: Able to move all extremities, strength equal bilaterally. PSYCHIATRIC: Alert and oriented to person place and time, appropriate affect, intact judgment and insight. - Allied health notes Allied health notes reviewed: nursing - Labs CBC & Chem 7: 11/03/24 05:41 11/03/24 05:41 Labs: Abnormal Lab Results - Last 24 Hours (Table) 11/02/24 11/03/24 11/03/24 Range/Units 17:24 05:41 05:41 RBC 3.34 L (3.80-5.40) m/uL Hgb 7.7 L (11.4-16.0) gm/dL Hct 26.7 L (34.0-46.0) % MCH 23.0 L (25.0-35.0) pg MCHC 28.7 L (31.0-37.0) g/dL RDW 17.9 H (11.5-15.5) % Plt Count 97 L (150-450) k/uL Sodium 134 L (137-145) mmol/L Chloride 110 H (98-107) mmol/L Carbon Dioxide 18 L (22-30) mmol/L Glucose 161 H (74-99) mg/dL Calcium 7.9 L (8.4-10.2) mg/dL Iron 15 L (50-170) UG/DL % Saturation 4.76 L (12.00-45.00) - Imaging and Cardiology Chest x-ray: report reviewed, image reviewed Assessment and Plan Assessment: Abdominal pain, nausea, vomiting this admission, initially admitted to [facility] Pericardial effusion Left-sided pleural effusion Syncopal episode with questionable cardiac arrest, CPR Acute kidney injury Thrombocytopenia, hyponatremia, chronic anemia Lactic acidosis at [facility], resolved Atrial fibrillation with RVR followed by bradycardia at [facility], currently sinus Hypotension, currently on IV Levophed History of coronary artery disease with previous PCI and off-pump CABG x 3 on August 09, 2024 Left-sided pleural effusion status post thoracentesis x 4 with subsequent left- sided VATS with talc pleurodesis and placement of left-sided Pleurx catheter 09/29/2024 Right-sided pleural effusion status post thoracentesis x 1 Large pericardial effusion with Raymundo syndrome status post subxiphoid pericardial window 10/04/2024 Pneumopericardium Multiple admissions for abdominal pain, nausea, vomiting Left internal carotid artery stenosis, greater than 70% Diabetes mellitus Hypertension EtOH abuse Cirrhosis of the liver with persistent effusions Multiple breast abscesses treated with antibiotics Bipolar disorder/anxiety Previous tobacco dependence Marijuana use Osteoarthritis Plan: Wean norepinephrine drip as tolerated. The patient has been started on midodrine 2.5 mg p.o. twice daily by cardiology. Encourage use of incentive spirometry 10 times every hour while awake. Continue to drain Pleurx catheter as needed. The Pleurx catheter was drained yesterday for 900 mL of pleural fluid. Transthoracic 2D echocardiogram results reviewed, Dr. Ortiz will review the results. Increase activity as tolerated. Medical management of other comorbidities per internal medicine, intensive care service and cardiology. Normal saline has been increased to 100 mL/h by Dr. Harry. Continue to maximize medical management with aspirin, statin and beta-lopez. Continue to monitor daily chest x-rays. More recommendations to follow based on patient's clinical course. Time with Patient: Greater than 30
--- NOTE | 2024-11-03 08:50 | XR ---
EXAMINATION TYPE: XR chest 1V portable DATE OF EXAM: 11/03/2024 4:39 AM COMPARISON: 11/01/2024 CLINICAL INDICATION: Female, 49 years old with history of pleural effusion, , FINDINGS: Median sternotomy wires with post-CABG clips. Heart remains mildly enlarged. Diffuse interstitial den sity persists with slight worsening. Left chest tube in place. No appreciable pneumothorax. Dense ret rocardiac opacity persists. IMPRESSION: 1. CHF with pulmonary vascular congestion. Interstitial changes have worsened. 2. Left chest tube in place. No appreciable pneumothorax. 3. Ongoing extensive retrocardiac opacity. [facility], , 11/03/2024 8:48 AM
--- NOTE | 2024-11-03 10:11 | P.PN ---
Subjective Patient is seen in follow-up for acute kidney injury. Patient was transferred from [facility] due to pericardial effusion. Creatinine was up to 2.4 this admission and is improved to 0.84. She is currently receiving IV fluids. Denies chest pain or shortness of breath. On low-dose Levophed. Vital signs are stable. General: No acute distress. HEENT: Head exam is unremarkable. LUNGS: No audible rhonchi or wheezes. HEART: Rate and Rhythm are regular. ABDOMEN: Nontender. EXTREMITITES: 1+ edema. Objective - Vital Signs Vital signs: Vital Signs Temp 98.2 F 11/03/24 08:00 Pulse 81 11/03/24 09:15 Resp 12 11/03/24 09:15 BP 90/49 11/03/24 09:15 Pulse Ox 96 11/03/24 09:15 FiO2 Intake & Output 11/02/24 11/03/24 11/03/24 18:59 06:59 18:59 Intake Total 1500.822 845.301 212.268 Output Total 1250 700 0 Balance 250.822 145.301 212.268 Weight 107.3 kg Intake: IV 550 600 200 Sodium Chloride 0.9% 1, 550 600 200 000 ml @ 100 mls/hr IV . Q10H GABO Rx#:[id number] Intake, IV Titration 270.822 245.301 12.268 Amount Norepinephrine 4 mg In 270.822 245.301 12.268 Sodium Chloride 0.9% 250 ml @ 0.03 MCG/KG/MIN 11. 041 mls/hr IV .Q23H1M GABO Rx#:[id number] Oral 500 Tube Feeding 180 Output: Drainage 900 Left Chest 900 Urine 350 700 0 Other: Voiding Method Bedside Commode Bedside Commode Bedside Commode # Voids 1 1 - Labs CBC & Chem 7: 11/03/24 05:41 11/03/24 05:41 Labs: Abnormal Lab Results - Last 24 Hours (Table) 11/02/24 11/03/24 11/03/24 Range/Units 17:24 05:41 05:41 RBC 3.34 L (3.80-5.40) m/uL Hgb 7.7 L (11.4-16.0) gm/dL Hct 26.7 L (34.0-46.0) % MCH 23.0 L (25.0-35.0) pg MCHC 28.7 L (31.0-37.0) g/dL RDW 17.9 H (11.5-15.5) % Plt Count 97 L (150-450) k/uL Sodium 134 L (137-145) mmol/L Chloride 110 H (98-107) mmol/L Carbon Dioxide 18 L (22-30) mmol/L Glucose 161 H (74-99) mg/dL Calcium 7.9 L (8.4-10.2) mg/dL Iron 15 L (50-170) UG/DL % Saturation 4.76 L (12.00-45.00) Assessment and Plan Plan: Assessment: 1. Acute kidney injury secondary to ATN secondary to hypotension and hypovolemia improved with IV hydration. Creatinine 0.[address] scan from October 2024 showed no evidence of hydronephrosis. Bilateral nonobstructing stones were noted. Baseline creatinine near 1. 2. Pericardial effusion status post pericardial window October 04, 2024. 3. Pleural effusions requiring thoracentesis and also history of left-sided VATS. 4. Coronary disease status post CABG in August 2024. 5. Diabetes mellitus. 6. Anemia. Iron deficiency noted. 7. Metabolic acidosis secondary to IV fluids. On oral bicarb. 8. Volume overload. Plan: Hep-Lock IV fluids. Chest x-ray suggestive of vascular congestion. Also has edema in lower extremities. Wean vasopressors. Add IV iron. Midodrine added by cardiology. May need to increase dose. Preserved EF noted on echocardiogram. Potassium replaced. Will need diuresis in the near future.
--- NOTE | 2024-11-03 12:24 | P.PN ---
Subjective Progress Note Date: 11/03/24 Principal diagnosis: Pericardial and left pleural effusion Patient is a 49-year-old female with complicated past medical history significant for coronary artery disease with previous PCI/stenting and subsequent CABG x 3, recurrent left-sided pleural effusion with frequent thora centesis status post left-sided VATS with talc pleurodesis and left sided Pleurx catheter placement, right-sided pleural effusion, diabetes mellitus, hypertension, carotid artery stenosis, alcohol abuse, liver disease, breast abscess, bipolar disorder/anxiety, previous tobacco dependence, chronic ma rijuana use. Note that back on August 09, 2024 patient underwent off-pump CABG x 3 at our facility. She had a prolonged and complicated hospitalization. Following the procedure, she developed persistent left-sided/recurrent pleural effusion requiring multiple thoracentesis, and did undergo left thoracoscopy, talc pleurodesis, and placement of a left Pleurx catheter on 09/29/2024. She also developed a rather large pericardial effusion, requiring subxiphoid pericardial window done 10/04/2024. She was finally discharged home from this facility 10/14/2024. While at home, the patient started having recurrent nausea and vomiting, was unable to tolerate food or drink, and was admitted at our facility 10/19/2024 through 10/23/2024 with colitis. She was discharged, and went to [facility] few days later with similar symptoms. Reportedly, found to have acute kidney injury and was admitted. Previously taking Toradol on an outpatient basis. While at outside facility, she was in the bathroom and became lightheaded. She does not recall other events while in the bathroom. Patient reportedly had a syncopal event and had brief CPR. I do not believe the patient ever lost a pulse. She did respond and did not require any intubation. Following the event, patient was reportedly found to be in A-fib RVR and then later was bradycardic. She was started on dopamine, and danielson sferred to our facility. I believe the concern was for enlarging pericardial effusion. Follow-up chest CT at our facility showing resolution of gas within the pericardium seen on prior CTs, persistent small to moderate-sized pericardial effusion without tamponade features. Moderate to large left-sided pleural effusion. Patient does have Pleurx catheter in the pleural space. No obvious traumatic rib fractures or pneumothoraces. Patient is currently being evaluated in the intensive care unit. She is alert and oriented. No focal neurological deficits. No history of seizures, CVA/TIA, or prior syncopal events. Resting comfortably on 2 L/min nasal cannula. SpO2 is reading 100%. Patient states that she continues to drain her Pleurx catheter every 2 to 3 days. Gets anywhere from 50 to 200 cc of serous output when draining. She has not drained the catheter in a few days. She continues on dopamine which is infusing at 10 mcg/kg/min. Heart rate is actually tachycardic. This is sinus tachycardia, 106 bpm on bedside monitor. Blood pressure remains borderline 95/59 mmHg. She reports a mild amount of reproducible right-sided chest pain with deep breathing, coughing, or palpation. While in bed, denies any lightheadedness, heart palpitations, radiating chest pain, orthopnea. She does report some increased lower extremity swelling, bilaterally. No further episodes of vomiting. Intermittent nausea, however, is tolerating oral intake at this time. Denies any diarrhea, hematochezia, melena, hematemesis. She does report epigastric abdominal pain, which has been persistent over the last 2-1/2 months. Did have an EGD done August 31, 2024, which was fairly unremarkable in the report. She has been previously treated for colitis. CBC: WBC count 10.8, hemoglobin 8.8, hematocrit 28.7, platelets 133. CMP: Sodium 132, potassium 4.6, chloride 107, serum bicarb 17, BUN 26, creatinine 1.2, glucose 191. Magnesium 2. LFTs unremarkable. Normal saline infusing at 50 mL/h. Patient was evaluated today 11/03/2024, remains in the ICU, on 2 L nasal cannula, still requiring norepinephrine at 0.03 mcg/kg/min, patient was seen by cardiothoracic surgery and did not feel a need to have pericardial window or pericardiocentesis. She does have a moderate size loculated pericardial effusion, no plans to drain at this point. Patient remains a bit on the hypotensive side, requiring norepinephrine and midodrine was added today. Her left-sided pleural effusion has been drained patient does have a left Pleurx catheter in place. WBC is 4.7 hemoglobin 7.7 electrolytes are normal renal profile is normal Objective - Vital Signs Vital signs: Vital Signs Temp 98.2 F 11/03/24 08:00 Pulse 81 11/03/24 11:15 Resp 11 L 11/03/24 11:15 BP 94/50 11/03/24 11:15 Pulse Ox 97 11/03/24 11:15 FiO2 Intake & Output 11/02/24 11/03/24 11/03/24 18:59 06:59 18:59 Intake Total 1500.822 845.301 362.268 Output Total 1250 700 0 Balance 250.822 145.301 362.268 Weight 107.3 kg Intake: IV 550 600 350 Sodium Chloride 0.9% 1, 550 600 350 000 ml @ 50 mls/hr IV . Q20H GABO Rx#:[id number] Intake, IV Titration 270.822 245.301 12.268 Amount Norepinephrine 4 mg In 270.822 245.301 12.268 Sodium Chloride 0.9% 250 ml @ 0.03 MCG/KG/MIN 11. 041 mls/hr IV .Q23H1M GABO Rx#:[id number] Oral 500 Tube Feeding 180 Output: Drainage 900 Left Chest 900 Urine 350 700 0 Other: Voiding Method Bedside Commode Bedside Commode Bedside Commode # Voids 1 1 - Exam GENERAL EXAM: 49-year-old female in no distress on room air HEAD: Normocephalic and atraumatic EYES: Normal reaction of pupils, equal size. NOSE: Clear with pink turbinates. THROAT: No erythema or exudates. Edentulous. NECK: No masses, no JVD. CHEST: No chest wall deformity. Approximated and pink sternal incision, without drainage. Left-sided Pleurx catheter noted. LUNGS: Lightly diminished breath sounds at the left base CVS: Distant S1 and S2 normal with no audible murmur, regular rhythm. No extra heart sounds ABDOMEN: Obese abdomen soft nontender no megaly no rebound no guarding SKIN: No rashes CENTRAL NERVOUS SYSTEM: Alert oriented x 3 no gross focal deficit EXTREMITIES: Clubbing, edema or cyanosis - Labs CBC & Chem 7: 11/03/24 05:41 11/03/24 05:41 Labs: Abnormal Lab Results - Last 24 Hours (Table) 11/02/24 11/03/24 11/03/24 Range/Units 17:24 05:41 05:41 RBC 3.34 L (3.80-5.40) m/uL Hgb 7.7 L (11.4-16.0) gm/dL Hct 26.7 L (34.0-46.0) % MCH 23.0 L (25.0-35.0) pg MCHC 28.7 L (31.0-37.0) g/dL RDW 17.9 H (11.5-15.5) % Plt Count 97 L (150-450) k/uL Sodium 134 L (137-145) mmol/L Chloride 110 H (98-107) mmol/L Carbon Dioxide 18 L (22-30) mmol/L Glucose 161 H (74-99) mg/dL Calcium 7.9 L (8.4-10.2) mg/dL Iron 15 L (50-170) UG/DL % Saturation 4.76 L (12.00-45.00) Assessment and Plan Assessment: Impression: Pericardial effusion being addressed by cardiology and cardiothoracic surgery Chronic recurrent left pleural effusion requiring Pleurx catheter and getting drained almost on a daily basis Suspect syncopal event Bradycardia, resolved hypotension requiring norepinephrine and midodrine was added Acute kidney injury, resolved Microcytic, hypochromic anemia, hemoglobin stable at 8.8 g/dL, patient denies any blood loss Coronary artery disease with previous PCI/stenting and subsequent CABG x 3 normed on August 09, 2024, followed by a prolonged and complicated hospital course. Left-sided/recurrent pleural effusion requiring multiple thoracentesis, and did undergo left thoracoscopy, talc pleurodesis, and placement of a left Pleurx c atheter on 09/29/2024. Pleurx catheter remains, the patient has a large left- sided pleural effusion. Acute hypoxemic respiratory failure, secondary to above History of hypertension History of hyperlipidemia History of diabetes mellitus History of bilateral carotid artery stenosis, with a greater than 70% stenosis of the left carotid bifurcation and less than 50% stenosis to the right carotid bifurcation History of breast abscess History of liver disease History of alcohol abuse Bipolar disorder/anxiety Chronic marijuana use Obesity, with a BMI of 37.7 kg/m Recommendation: Continue present supportive care measures Consider transferring the patient out of the ICU when she is off norepinephrine Continue norepinephrine and titrate accordingly Continue midodrine continue GI and DVT prophylaxis Neurology and cardiothoracic surgery to decide on treatment of her pericardial effusion supposedly considering long-term course of steroids Will continue to follow Time with Patient: Less than 30
[2024-11-03] MEDS: SODIUM FERRIC GLUCONAT-SUCROSE 125 MG in SODIUM CHLORIDE 0.9% 100 ML IVPB SCH (12:55)
[2024-11-03] MEDS: SODIUM CHLORIDE 0.9% 1,000 ML IV SCH (12:55)
--- NOTE | 2024-11-03 17:13 | PN ---
PROGRESS NOTE SUBJECTIVE: Yovana is a 49-year-old lady who is admitted to hospital with recurrent episodes of left-sided pleural effusion and pericardial effusion. She was at [facility] and was transferred to [facility] because of concerns about pericardial effusion and possible tamponade. On a limited echocardiogram I performed, she has moderate loculated pericardial effusion without any evidence of tamponade. Ejection fraction is normal at 60%. She also had incidental right and left pleural effusions. This morning, she appears comfortable at rest and is free of symptoms. I am going to start her on IV fluids given the hypotension and add midodrine. Hopefully, with this, we will be able to stop the Levophed that she is on. PHYSICAL EXAMINATION: GENERAL: Comfortable at rest. VITAL SIGNS: Stable. Blood pressure is 95/69, respiratory rate 18. CHEST: Diminished air entry at the bases. HEART: First and second heart sounds. Systolic murmur at the apex. ABDOMEN: Soft. EXTREMITIES: Did not reveal any edema. Peripheral pulses are felt. LABORATORY DATA: Hemoglobin of 7.7, platelet count is low at 97. Potassium is 3.5, creatinine is 0.8. CURRENT MEDICATIONS: Include: 1. Aspirin. 2. Lipitor. 3. Lopressor. 4. Midodrine. ASSESSMENT: 1. Hypotension. 2. Recurrent pleural effusions. 3. Pericardial effusion. PLAN: We will start midodrine, increase the IV fluids, taper and stop the Levophed and transfer her out of ICU. ARTIS / KARLA: [id number] /
[2024-11-04 03:33] LABS: African American GFR (CKD) >90 (>60 ml/min/1.73 sqM); Anion Gap 3 mmol/L; Blood Urea Nitrogen 9 mg/dL (7-17); Calcium 7.6 mg/dL (8.4-10.2); Carbon Dioxide 19 mmol/L (22-30); Chloride 112 mmol/L (98-107); Glucose 110 mg/dL (74-99); Non-African American GFR(CKD) 90 (>60 ml/min/1.73 sqM); Potassium 3.7 mmol/L (3.5-5.1); Sodium 134 mmol/L (137-145)
[2024-11-04 03:38] LABS: Anisocytosis Slight; Basophils % (A) 1 %; Eosinophils # (A) 0.2 k/uL (0-0.7); Eosinophils % (A) 3 %; HCT 27.2 % (34.0-46.0); HGB 8.2 gm/dL (11.4-16.0); Hypochromasia Marked; Lymphocytes # (A) 1.1 k/uL (1.0-4.8); Lymphocytes % (A) 23 %; MCH 23.9 pg (25.0-35.0); MCV 79.6 fL (80.0-100.0); Mean Platelet Volume 10.5; Microcytosis Slight; Monocytes # (A) 0.4 k/uL (0-1.0); Monocytes % (A) 8 %; Neutrophils % (A) 63 %; Platelet Count 111 k/uL (150-450); RBC 3.42 m/uL (3.80-5.40); RDW 17.6 % (11.5-15.5); WBC 4.8 k/uL (3.8-10.6)
[2024-11-04] MEDS: POTASSIUM CHLORIDE ER 20 MEQ TAB.ER PO SCH (04:08)
[2024-11-04] MEDS: MIDODRINE 5 MG TAB PO SCH ×2 (06:33→11:55)
--- NOTE | 2024-11-04 07:27 | P.PN ---
Subjective Progress Note Date: 11/04/24 Principal diagnosis: Abdominal pain, nausea, vomiting, pericardial effusion, left-sided pleural effusion, syncopal episode, acute kidney injury, thrombocytopenia, hyponatremia, chronic anemia, lactic acidosis A-fib with RVR followed by bradycardia, hypotension. History of coronary artery disease with previous PCI and off-pump CABG x 3 on August 09, 2024, left-sided pleural effusion (exudative in nature) status post thoracentesis x 4 with subsequent left-sided VATS with talc pleurodesis and placement of left-sided Pleurx catheter 09/29/2024, right-sided pleural effusion status post thoracentesis x 1, large pericardial effusion with Raymundo syndrome status post subxiphoid pericardial window 10/04/2024, pneumopericardium, multiple admissions for abdominal pain, nausea, vomiting, left internal carotid artery stenosis, diabetes mellitus, hypertension, EtOH abuse, cirrhosis of the liver, multiple breast abscesses treated with antibiotics, bipolar disorder/anxiety, previous tobacco dependence, marijuana use, osteoarthritis The patient was seen and examined sitting up in recliner in the intensive care unit in no acute distress. She remains in sinus rhythm, blood pressure stable but continues to remain on Levophed despite addition and increase of midodrine. She states her abdominal pain has significantly improved and she has been able to tolerate diet. She states her breathing has significantly improved, does states she feels mildly short of breath at night with laying down but other than that she is doing well. Her Pleurx catheter was drained again yesterday for another 350 mL of fluid. Remains on room air with oxygen saturation in the high 90s, able to achieve 1000 mL on her incentive spirometry. She has been ambulatory without difficulty. She does complain of some chest discomfort likely related to CPR, has been receiving IV Dilaudid every 4 hours. She was started on IV iron by nephrology for anemia. Continues to remain on IV fluids which were decreased yesterday, diuretics stopped 2 days ago. No other new concerns. Objective - Vital Signs Vital signs: Vital Signs Temp 98.2 F 11/04/24 04:00 Pulse 78 11/04/24 07:00 Resp 18 11/04/24 07:00 BP 91/50 11/04/24 07:00 Pulse Ox 97 11/04/24 07:00 FiO2 Intake & Output 11/03/24 11/04/2424 18:59 06:59 18:59 Intake Total 662.268 847.503 50 Output Total 551 400 0 Balance 111.268 447.503 50 Weight 106.8 kg Intake: IV 650 600 50 Sodium Chloride 0.9% 1, 650 600 50 000 ml @ 50 mls/hr IV . Q20H GABO Rx#:[id number] Intake, IV Titration 247.503 Amount Norepinephrine 4 mg In 247.503 Sodium Chloride 0.9% 250 ml @ 0.03 MCG/KG/MIN 11. 041 mls/hr IV .Q23H1M GABO Rx#:[id number] Output: Drainage 350 Left Chest 350 Urine 200 400 0 Stool 1 Other: Voiding Method Bedside Commode Bedside Commode # Voids 1 1 # Bowel Movements 1 - Exam CONSTITUTIONAL: Appears comfortable, cooperative, no acute distress RESPIRATORY: Lungs sounds diminished bilaterally, left greater than right. Respirations even, nonlabored. Currently on room air with oxygen saturation 97%. Able to achieve 1000 mL on incentive spirometry. Strong cough. CARDIOVASCULAR: S1, S2 present. Regular rate and rhythm, sinus rhythm on tel emetry. Sternum stable. Palpable peripheral pulses bilaterally. Bilateral lower extremity edema present. No calf pain or tenderness noted GASTROINTESTINAL: Abdomen soft, nontender, nondistended. Active bowel sounds present 4 quadrants. Tolerating diet. Positive bowel movement 11/03 GENITOURINARY: Continues to void, not always measured INTEGUMENTARY: Skin is warm and dry. Anterior sternal chest incision well- healed. Pericardial window site clean, no drainage, granulation tissue present NEUROLOGIC: Cranial nerves II through XII intact MUSKULOSKELETAL: Able to move all extremities, strength equal bilaterally, gait normal PSYCHIATRIC: Alert and oriented to person place and time, appropriate affect, intact judgment and insight - Allied health notes Allied health notes reviewed: nursing - Labs CBC & Chem 7: 11/04/24 02:58 11/04/24 02:58 Labs: Abnormal Lab Results - Last 24 Hours (Table) 11/04/24 11/04/24 Range/Units 02:58 02:58 RBC 3.42 L (3.80-5.40) m/uL Hgb 8.2 L (11.4-16.0) gm/dL Hct 27.2 L (34.0-46.0) % MCV 79.6 L (80.0-100.0) fL MCH 23.9 L (25.0-35.0) pg MCHC 30.0 L (31.0-37.0) g/dL RDW 17.6 H (11.5-15.5) % Plt Count 111 L (150-450) k/uL Sodium 134 L (137-145) mmol/L Chloride 112 H (98-107) mmol/L Carbon Dioxide 19 L (22-30) mmol/L Glucose 110 H (74-99) mg/dL Calcium 7.6 L (8.4-10.2) mg/dL - Imaging and Cardiology Chest x-ray: image reviewed Assessment and Plan Assessment: Abdominal pain, nausea, vomiting this admission Pericardial effusion Left-sided pleural effusion Pleurx drained 900 mL on 11/02, 350 mL on 11/03 Syncopal episode with questionable cardiac arrest, CPR Acute kidney injury, resolved Thrombocytopenia, hyponatremia, chronic anemia Lactic acidosis at [facility], resolved A-fib with RVR followed by bradycardia at [facility], currently sinus Hypotension, remains on IV Levophed, midodrine started History of coronary artery disease with previous PCI and off-pump CABG x 3 on August 09, 2024 Left-sided pleural effusion (exudative in nature) status post thoracentesis x 4 with subsequent left-sided VATS with talc pleurodesis and placement of left- sided Pleurx catheter 09/29/2024 Right-sided pleural effusion status post thoracentesis x 1 Large pericardial effusion with Raymundo syndrome status post subxiphoid pericardial window 10/04/2024 Pneumopericardium Multiple admissions for abdominal pain, nausea, vomiting Left internal carotid artery stenosis, greater than 70% Diabetes mellitus Hypertension EtOH abuse Cirrhosis of the liver Multiple breast abscesses treated with antibiotics Bipolar disorder/anxiety Previous tobacco dependence Marijuana use Osteoarthritis Plan: Continue to drain Pleurx catheter daily while getting a large amount Will start prednisone daily with prolonged course to reduce inflammatory process, patient has tolerated well before Continue to maximize medical management with aspirin, statin and beta-lopez Wean norepinephrine drip as tolerated. Continue midodrine Encourage use of incentive spirometry 10 times every hour while awake Will continue to monitor daily labs and x-rays Increase activity, ambulate as tolerated GI/DVT prophylaxis Pain control per current medication regimen, recommend decreasing/spacing out Dilaudid dose as current dose/timing likely not helping with hypotension, adding oral pain medication for better long-term pain control Fluid/diuretic management per cardiology/nephrology Medical management of other comorbidities per internal medicine, intensive care service and cardiology More recommendations to follow based on patient's clinical course
--- NOTE | 2024-11-04 09:14 | XR ---
EXAMINATION TYPE: XR chest 1V portable DATE OF EXAM: 11/04/2024 5:58 AM COMPARISON: 11/03/2024 CLINICAL INDICATION: Female, 49 years old with history of Recurrent left pleural effusion, , FINDINGS: Median sternotomy wires are present with post-CABG clips. Left-sided chest tube in place. No apprecia ble pneumothorax. Heart remains mild to moderately enlarged. Mild diffuse interstitial opacity remain s. Retrocardiac and left basilar opacity shows slight improvement. IMPRESSION: 1. Left chest tube in place. No appreciable pneumothorax. 2. Mild to moderate cardiomegaly and ongoing mild pulmonary vascular congestion. 3. Retrocardiac and left basilar opacity shows slight improvement. [facility], , 11/04/2024 9:11 AM
[2024-11-04] MEDS: predniSONE 20 MG TAB PO SCH (09:18)
--- NOTE | 2024-11-04 10:45 | P.PN ---
Subjective Patient is seen in follow-up for acute kidney injury. Patient was transferred from [facility] due to pericardial effusion. Creatinine was up to 2.4 this admission and is improved to 0.79. She is currently receiving IV fluids. Denies chest pain or shortness of breath. On low-dose Levophed. Vital signs are stable. General: No acute distress. HEENT: Head exam is unremarkable. LUNGS: No audible rhonchi or wheezes. HEART: Rate and Rhythm are regular. ABDOMEN: Nontender. EXTREMITITES: 2+ edema. Objective - Vital Signs Vital signs: Vital Signs Temp 97.6 F 11/04/24 08:00 Pulse 73 11/04/24 09:30 Resp 16 11/04/24 09:30 BP 84/55 11/04/24 09:30 Pulse Ox 99 11/04/24 09:30 FiO2 Intake & Output 11/03/24 11/04/24 11/04/24 18:59 06:59 18:59 Intake Total 662.268 847.503 150 Output Total 551 400 100 Balance 111.268 447.503 50 Weight 106.8 kg Intake: IV 650 600 150 Sodium Chloride 0.9% 1, 650 600 150 000 ml @ 50 mls/hr IV . Q20H GABO Rx#:[id number] Intake, IV Titration 12.268 247.503 Amount Norepinephrine 4 mg In 12.268 247.503 Sodium Chloride 0.9% 250 ml @ 0.03 MCG/KG/MIN 11. 041 mls/hr IV .Q23H1M GABO Rx#:[id number] Output: Drainage 350 Left Chest 350 Urine 200 400 100 Stool 1 Other: Voiding Method Bedside Commode Bedside Commode # Voids 1 1 # Bowel Movements 1 1 - Labs CBC & Chem 7: 11/04/24 02:58 11/04/24 02:58 Labs: Abnormal Lab Results - Last 24 Hours (Table) 11/04/24 11/04/24 Range/Units 02:58 02:58 RBC 3.42 L (3.80-5.40) m/uL Hgb 8.2 L (11.4-16.0) gm/dL Hct 27.2 L (34.0-46.0) % MCV 79.6 L (80.0-100.0) fL MCH 23.9 L (25.0-35.0) pg MCHC 30.0 L (31.0-37.0) g/dL RDW 17.6 H (11.5-15.5) % Plt Count 111 L (150-450) k/uL Sodium 134 L (137-145) mmol/L Chloride 112 H (98-107) mmol/L Carbon Dioxide 19 L (22-30) mmol/L Glucose 110 H (74-99) mg/dL Calcium 7.6 L (8.4-10.2) mg/dL Assessment and Plan Plan: Assessment: 1. Acute kidney injury secondary to ATN secondary to hypotension and hypovolemia improved with IV hydration. Resolved. UA benign. CT scan from October 2024 showed no evidence of hydronephrosis. Bilateral nonobstructing stones were noted. Baseline creatinine near 1. 2. Pericardial effusion status post pericardial window October 04, 2024. 3. Pleural effusions requiring thoracentesis and also history of left-sided VATS. 4. Coronary disease status post CABG in August 2024. 5. Diabetes mellitus. 6. Anemia. Iron deficiency noted. 7. Metabolic acidosis secondary to IV fluids. On oral bicarb. 8. Volume overload. Plan: Hep-Lock IV fluids. Increase dose of midodrine. Wean vasopressors. Maintain IV iron. Preserved EF noted on echocardiogram. Potassium replaced. Will need diuresis in the near future.
--- NOTE | 2024-11-04 14:32 | P.PN ---
Subjective Progress Note Date: 11/04/24 Principal diagnosis: Pericardial and left pleural effusion Patient is a 49-year-old female with complicated past medical history significant for coronary artery disease with previous PCI/stenting and subsequent CABG x 3, recurrent left-sided pleural effusion with frequent thora centesis status post left-sided VATS with talc pleurodesis and left sided Pleurx catheter placement, right-sided pleural effusion, diabetes mellitus, hypertension, carotid artery stenosis, alcohol abuse, liver disease, breast abscess, bipolar disorder/anxiety, previous tobacco dependence, chronic ma rijuana use. Note that back on August 09, 2024 patient underwent off-pump CABG x 3 at our facility. She had a prolonged and complicated hospitalization. Following the procedure, she developed persistent left-sided/recurrent pleural effusion requiring multiple thoracentesis, and did undergo left thoracoscopy, talc pleurodesis, and placement of a left Pleurx catheter on 09/29/2024. She also developed a rather large pericardial effusion, requiring subxiphoid pericardial window done 10/04/2024. She was finally discharged home from this facility 10/14/2024. While at home, the patient started having recurrent nausea and vomiting, was unable to tolerate food or drink, and was admitted at our facility 10/19/2024 through 10/23/2024 with colitis. [facility] was [facility]. Reportedly, found to have acute kidney injury and was admitted. Previously taking Toradol on an outpatient basis. While at outside facility, she was in the bathroom and became lightheaded. She does not recall other events while in the bathroom. Patient reportedly had a syncopal event and had brief CPR. I do not believe the patient ever lost a pulse. She did respond and did not require any intubation. Following the event, patient was reportedly found to be in A-fib RVR and then later was bradycardic. She was started on dopamine, and danielson sferred to our facility. I believe the concern was for enlarging pericardial effusion. Follow-up chest CT at our facility showing resolution of gas within the pericardium seen on prior CTs, persistent small to moderate-sized pericardial effusion without tamponade features. Moderate to large left-sided pleural effusion. Patient does have Pleurx catheter in the pleural space. No obvious traumatic rib fractures or pneumothoraces. Patient is currently being evaluated in the intensive care unit. She is alert and oriented. No focal neurological deficits. No history of seizures, CVA/TIA, or prior syncopal events. Resting comfortably on 2 L/min nasal cannula. SpO2 is reading 100%. Patient states that she continues to drain her Pleurx catheter every 2 to 3 days. Gets anywhere from 50 to 200 cc of serous output when draining. She has not drained the catheter in a few days. She continues on dopamine which is infusing at 10 mcg/kg/min. Heart rate is actually tachycardic. This is sinus tachycardia, 106 bpm on bedside monitor. Blood pressure remains borderline 95/59 mmHg. She reports a mild amount of reproducible right-sided chest pain with deep breathing, coughing, or palpation. While in bed, denies any lightheadedness, heart palpitations, radiating chest pain, orthopnea. She does report some increased lower extremity swelling, bilaterally. No further episodes of vomiting. Intermittent nausea, however, is tolerating oral intake at this time. Denies any diarrhea, hematochezia, melena, hematemesis. She does report epigastric abdominal pain, which has been persistent over the last 2-1/2 months. Did have an EGD done August 31, 2024, which was fairly unremarkable in the report. She has been previously treated for colitis. CBC: WBC count 10.8, hemoglobin 8.8, hematocrit 28.7, platelets 133. CMP: Sodium 132, potassium 4.6, chloride 107, serum bicarb 17, BUN 26, creatinine 1.2, glucose 191. Magnesium 2. LFTs unremarkable. Normal saline infusing at 50 mL/h. Patient was evaluated today 11/03/2024, remains in the ICU, on 2 L nasal cannula, still requiring norepinephrine at 0.03 mcg/kg/min, patient was seen by cardiothoracic surgery and did not feel a need to have pericardial window or pericardiocentesis. She does have a moderate size loculated pericardial effusion, no plans to drain at this point. Patient remains a bit on the hypotensive side, requiring norepinephrine and midodrine was added today. Her left-sided pleural effusion has been drained patient does have a left Pleurx catheter in place. WBC is 4.7 hemoglobin 7.7 electrolytes are normal renal profile is normal Seen today on 11/04/2024, patient remains in the ICU mostly because she is still requiring norepinephrine at 0.05 mcg/kg/min to maintain adequate blood pressure. Her midodrine dose has been increased, patient cam is doing well, asymptomatic on room air, denies any shortness of breath no cough no wheezing no chest pain. Continues to have Pleurx catheter in place, thoracic surgery is not planning any intervention on her pericardial effusion. Objective - Vital Signs Vital signs: Vital Signs Temp 98.0 F 11/04/24 12:00 Pulse 76 11/04/24 14:15 Resp 20 11/04/24 14:15 BP 112/49 11/04/24 14:15 Pulse Ox 95 11/04/24 14:15 FiO2 Intake & Output 11/03/24 11/04/24 11/04/24 18:59 06:59 18:59 Intake Total 662.268 847.503 467.523 Output Total 551 400 100 Balance 111.268 447.503 367.523 Weight 106.8 kg Intake: IV 650 600 220 Sodium Chloride 0.9% 1, 650 600 220 000 ml @ 50 mls/hr IV . Q20H GABO Rx#:[id number] Intake, IV Titration 12.268 247.503 247.523 Amount Norepinephrine 4 mg In 12.268 247.503 147.523 Sodium Chloride 0.9% 250 ml @ 0.03 MCG/KG/MIN 11. 041 mls/hr IV .Q23H1M GABO Rx#:[id number] Sodium Ferric Gluconat- 100 Sucrose 125 mg In Sodium Chloride 0.9% 100 ml @ 100 mls/hr IVPB DAILY GABO Rx#:[id number] Output: Drainage 350 Left Chest 350 Urine 200 400 100 Stool 1 Other: Voiding Method Bedside Commode Bedside Commode Bedside Commode # Voids 1 1 # Bowel Movements 1 1 - Exam GENERAL EXAM: 49-year-old female in no distress on room air HEAD: Normocephalic and atraumatic EYES: Normal reaction of pupils, equal size. NOSE: Clear with pink turbinates. THROAT: No erythema or exudates. Edentulous. NECK: No masses, no JVD. CHEST: No chest wall deformity. Approximated and pink sternal incision, without drainage. Left-sided Pleurx catheter noted. LUNGS: diminished breath sounds at the left base CVS: Distant S1 and S2 normal with no audible murmur, regular rhythm. No extra heart sounds ABDOMEN: Obese abdomen soft nontender no megaly no rebound no guarding SKIN: No rashes CENTRAL NERVOUS SYSTEM: Alert oriented x 3 no gross focal deficit EXTREMITIES: Clubbing, edema or cyanosis - Labs CBC & Chem 7: 11/04/24 02:58 11/04/24 02:58 Labs: Abnormal Lab Results - Last 24 Hours (Table) 11/04/24 11/04/24 Range/Units 02:58 02:58 RBC 3.42 L (3.80-5.40) m/uL Hgb 8.2 L (11.4-16.0) gm/dL Hct 27.2 L (34.0-46.0) % MCV 79.6 L (80.0-100.0) fL MCH 23.9 L (25.0-35.0) pg MCHC 30.0 L (31.0-37.0) g/dL RDW 17.6 H (11.5-15.5) % Plt Count 111 L (150-450) k/uL Sodium 134 L (137-145) mmol/L Chloride 112 H (98-107) mmol/L Carbon Dioxide 19 L (22-30) mmol/L Glucose 110 H (74-99) mg/dL Calcium 7.6 L (8.4-10.2) mg/dL Assessment and Plan Assessment: Impression: Pericardial effusion being addressed by cardiology and cardiothoracic surgery, no plans for any surgical intervention Chronic recurrent left pleural effusion requiring Pleurx catheter and getting drained almost on every other day basis Suspect syncopal event Bradycardia, resolved hypotension requiring norepinephrine and midodrine was added Acute kidney injury, resolved Microcytic, hypochromic anemia, hemoglobin stable at 8.8 g/dL, patient denies any blood loss Coronary artery disease with previous PCI/stenting and subsequent CABG x 3 normed on August 09, 2024, followed by a prolonged and complicated hospital course. Left-sided/recurrent pleural effusion requiring multiple thoracentesis, and did undergo left thoracoscopy, talc pleurodesis, and placement of a left Pleurx catheter on 09/29/2024. Pleurx catheter remains, the patient has a large left- sided pleural effusion. Acute hypoxemic respiratory failure, secondary to above History of hypertension History of hyperlipidemia History of diabetes mellitus History of bilateral carotid artery stenosis, with a greater than 70% stenosis of the left carotid bifurcation and less than 50% stenosis to the right carotid bifurcation History of breast abscess History of liver disease History of alcohol abuse Bipolar disorder/anxiety Chronic marijuana use Obesity, with a BMI of 37.7 kg/m Recommendation: Continue present supportive care measures Consider transferring the patient out of the ICU when she is off norepinephrine Continue norepinephrine and titrate accordingly Continue midodrine continue GI and DVT prophylaxis Cardiology and cardiothoracic surgery to decide on treatment of her pericardial effusion supposedly considering long-term course of steroids Will continue to follow Time with Patient: Less than 30
[2024-11-04] MEDS: ONDANSETRON 4 MG/2 ML VIAL IVP PRN (16:00)
--- NOTE | 2024-11-04 20:07 | PN ---
PROGRESS NOTE DATE OF SERVICE: 11/02/2024 CHIEF COMPLAINT: Cardiorespiratory arrest and hypotension. HISTORY OF PRESENT ILLNESS: This lady is still having episodes of hypotension and she is on pressors. She has had no chest pain. She has had no significant shortness of breath. Studies so far have indicated that she has a slightly increased left pleural effusion. Echocardiogram suggests that her cardiac window is functional. There is apparently some fluid in the pericardium with some adhesions, but otherwise that does not seem to be a problem. PHYSICAL EXAMINATION: LUNGS: Breath sounds are diminished on the left. CARDIAC: Exam is normal. ABDOMEN: Soft, nontender. IMPRESSION: 1. Cardiorespiratory arrest, etiology unknown. 2. Left pleural effusion. 3. Pericardial effusion, status post window. 4. Coronary artery disease. 5. Congestive heart failure. 6. Type 2 diabetes. 7. Chronic kidney disease. PLAN: Continue to follow with Intensive Medicine in the ICU. Once her pressors are stopped, she can be moved to a regular floor. MMODL / IJN: [id number] /
--- NOTE | 2024-11-04 20:16 | PN ---
PROGRESS NOTE DATE OF SERVICE: 11/03/2024 CHIEF COMPLAINT: Coronary artery disease, atherosclerotic cardiomyopathy, pericardial effusion with cardiac window, and COPD with left pleural effusion. HISTORY OF PRESENT ILLNESS: This lady is doing fairly well, but she is still on a very low dose of pressors which are being weaned back. She has had no arrhythmias, chest pain, etc. PHYSICAL EXAMINATION: LUNGS: Breath sounds are diminished on the left. There are occasional rales. CARDIAC: Exam reveals sinus rhythm. ABDOMEN: Soft and nontender. Epigastric pain and nausea are gone. IMPRESSION: 1. Cardiorespiratory arrest. 2. Coronary artery disease. 3. Cardiomyopathy. 4. Congestive heart failure. 5. Pericardial effusion, status post pericardial window. 6. Left pleural effusion. PLAN: Continue to follow in ICU until her pressors are no longer needed and she can be transferred to regular floor. ARTIS / FELICITAN: [id number] /
--- NOTE | 2024-11-04 22:28 | PN ---
PROGRESS NOTE SUBJECTIVE: Yovana is a 49-year-old lady, who was admitted to hospital with recurrent pleural effusions and has a Pleur-Evac catheter in. The predominant problem at the moment is in the form of hypotension. She does not have any tamponade on the echocardiogram. However, she has moderate loculated pericardial effusion. She is doing well and is currently on midodrine, whose dose had been increased. MEDICATIONS: She is also on, 1. Aspirin. 2. Lipitor. 3. Lopressor. 4. Levophed. Hopefully, we can taper and stop the Levophed once the blood pressure comes up. OBJECTIVE: GENERAL: Comfortable at rest. VITAL SIGNS: Heart rate is 78 beats per minute, blood pressure is 100/55, respiratory rate is 16, and O2 saturation is 99% on room air. CHEST: Good air entry bilaterally. HEART: First and second heart sounds. No gallop. No murmur. ABDOMEN: Soft. EXTREMITIES: Did not reveal any edema. Peripheral pulses are felt. ASSESSMENT: 1. Recurrent pleural effusion, status post Pleur-Evac catheter. 2. Moderate pericardial effusion without any tamponade. 3. Hypotension. PLAN: We will increase the dose of midodrine. MMODL / IJN: [id number] /
[2024-11-05 03:38] LABS: African American GFR (CKD) 88 (>60 ml/min/1.73 sqM); Anion Gap 6 mmol/L; Blood Urea Nitrogen 11 mg/dL (7-17); Calcium 8.4 mg/dL (8.4-10.2); Carbon Dioxide 18 mmol/L (22-30); Chloride 109 mmol/L (98-107); Glucose 136 mg/dL (74-99); Magnesium 1.7 mg/dL (1.6-2.3); Non-African American GFR(CKD) 76 (>60 ml/min/1.73 sqM); Potassium 4.4 mmol/L (3.5-5.1); Sodium 133 mmol/L (137-145)
[2024-11-05 04:07] LABS: Anisocytosis Slight; HCT 28.8 % (34.0-46.0); HGB 8.6 gm/dL (11.4-16.0); Hypochromasia Marked; MCH 23.8 pg (25.0-35.0); MCV 79.5 fL (80.0-100.0); Mean Platelet Volume 10.8; Microcytosis Slight; Platelet Count 147 k/uL (150-450); RBC 3.63 m/uL (3.80-5.40); RDW 17.7 % (11.5-15.5); WBC 8.3 k/uL (3.8-10.6)
--- NOTE | 2024-11-05 07:44 | XR ---
EXAMINATION TYPE: XR chest 1V portable DATE OF EXAM: 11/05/2024 5:26 AM COMPARISON: 11/04/2024 CLINICAL INDICATION: Female, 49 years old with history of Pleural effusion, , FINDINGS: Heart moderately enlarged. Left-sided chest tube in place. No appreciable pneumothorax. Median sterno parth wires and post-CABG clips. Patchy retrocardiac/left basilar opacity shows some improvement. IMPRESSION: Similar moderate cardiomegaly with left chest tube in place. No appreciable pneumothorax. Patchy retr ocardiac opacity shows some improvement. [facility], , 11/05/2024 7:41 AM
[2024-11-05] MEDS: HYDROcodone/APAP 7.5-325MG 1 EACH TAB PO PRN (07:46)
--- NOTE | 2024-11-05 07:56 | P.PN ---
Subjective Progress Note Date: 11/05/24 Principal diagnosis: Abdominal pain, nausea, vomiting, pericardial effusion, left-sided pleural effusion, syncopal episode, acute kidney injury, thrombocytopenia, hyponatremia, chronic anemia, lactic acidosis A-fib with RVR followed by bradycardia, hypotension. History of coronary artery disease with previous PCI and off-pump CABG x 3 on August 09, 2024, left-sided pleural effusion (exudative in nature) status post thoracentesis x 4 with subsequent left-sided VATS with talc pleurodesis and placement of left-sided Pleurx catheter 09/29/2024, right-sided pleural effusion status post thoracentesis x 1, large pericardial effusion with Raymundo syndrome status post subxiphoid pericardial window 10/04/2024, pneumopericardium, multiple admissions for abdominal pain, nausea, vomiting, left internal carotid artery stenosis, diabetes mellitus, hypertension, EtOH abuse, cirrhosis of the liver, multiple breast abscesses treated with antibiotics, bipolar disorder/anxiety, previous tobacco dependence, marijuana use, osteoarthritis The patient was seen and examined sitting up in bed in the intensive care unit in no acute distress. She remains in sinus rhythm, blood pressure marginal but stable, off levo for the last couple of hours, midodrine increased to 10 mg 3 times daily yesterday. She states her abdominal pain has significantly improved and she has been able to tolerate diet. She states her breathing has significantly improved, does states she feels mildly short of breath at night with laying down but other than that she is doing well. Her Pleurx catheter was drained again yesterday for another 200 mL of fluid. Remains on room air with oxygen saturation in the high 90s, able to achieve 1000 mL on her incentive spirometry. She has been ambulatory without difficulty. She does complain of some chest discomfort likely related to CPR, continues to receive IV Dilaudid every 4 hours. She continues on IV iron by nephrology for anemia. IV fluids currently hep-locked. Discussion took place with patient regarding pain control as consistent IV Dilaudid may be contributing to her hypotension, patient was asking for oral pain medication other than Tylenol as this does not work for her. She also verbalizes concern about continuing with IV narcotics as when she goes home she will not be able to take IV narcotics and would like to start transitioning to oral pain medication now. Objective - Vital Signs Vital signs: Vital Signs Temp 98.1 F 12/06/24 04:00 Pulse 91 11/05/24 07:00 Resp 16 11/05/24 07:00 BP 89/62 11/05/24 06:45 Pulse Ox 91 L 11/05/24 07:00 FiO2 Intake & Output 11/04/24 11/05/24 11/05/24 18:59 06:59 18:59 Intake Total 587.173 86.372 Output Total 500 350 Balance 87.173 -263.628 Weight 110.3 kg Intake: IV 245 40 Sodium Chloride 0.9% 1, 245 40 000 ml @ 50 mls/hr IV . Q20H GABO Rx#:[id number] Intake, IV Titration 342.173 46.372 Amount Norepinephrine 4 mg In 242.173 46.372 Sodium Chloride 0.9% 250 ml @ 0.03 MCG/KG/MIN 11. 041 mls/hr IV .Q23H1M GABO Rx#:[id number] Sodium Ferric Gluconat- 100 Sucrose 125 mg In Sodium Chloride 0.9% 100 ml @ 100 mls/hr IVPB DAILY GABO Rx#:[id number] Output: Drainage 200 Left Chest 200 Urine 300 350 Other: Voiding Method Toilet Toilet # Bowel Movements 1 - Exam CONSTITUTIONAL: Appears comfortable, cooperative, no acute distress RESPIRATORY: Lungs sounds diminished bilaterally. Respirations even, nonlabored. Currently on room air with oxygen saturation 98%. Able to achieve 1000 mL on incentive spirometry. Strong cough. Left Pleurx catheter present under dry intact dressing. CARDIOVASCULAR: S1, S2 present. Regular rate and rhythm, sinus rhythm on telemetry. Sternum stable. Palpable peripheral pulses bilaterally. Bilateral lower extremity edema present. No calf pain or tenderness noted GASTROINTESTINAL: Abdomen soft, nontender, nondistended. Active bowel sounds present 4 quadrants. Tolerating diet. Positive bowel movement 11/04 GENITOURINARY: Continues to void, not always measured INTEGUMENTARY: Skin is warm and dry. Anterior sternal chest incision well-heal ed. Pericardial window site clean, no drainage, granulation tissue present NEUROLOGIC: Cranial nerves II through XII intact MUSKULOSKELETAL: Able to move all extremities, strength equal bilaterally, gait normal PSYCHIATRIC: Alert and oriented to person place and time, appropriate affect, intact judgment and insight - Allied health notes Allied health notes reviewed: nursing - Labs CBC & Chem 7: 11/05/24 03:07 11/05/24 03:02 Labs: Abnormal Lab Results - Last 24 Hours (Table) 11/05/24 11/05/24 Range/Units 03:02 03:07 RBC 3.63 L (3.80-5.40) m/uL Hgb 8.6 L (11.4-16.0) gm/dL Hct 28.8 L (34.0-46.0) % MCV 79.5 L (80.0-100.0) fL MCH 23.8 L (25.0-35.0) pg MCHC 30.0 L (31.0-37.0) g/dL RDW 17.7 H (11.5-15.5) % Plt Count 147 L (150-450) k/uL Sodium 133 L (137-145) mmol/L Chloride 109 H (98-107) mmol/L Carbon Dioxide 18 L (22-30) mmol/L Glucose 136 H (74-99) mg/dL - Imaging and Cardiology Chest x-ray: report reviewed, image reviewed Assessment and Plan Assessment: Abdominal pain, nausea, vomiting this admission Pericardial effusion Left-sided pleural effusion Pleurx drained 900 mL on 11/02, 350 mL on 11/03, 200 mL on 11/04 Syncopal episode with questionable cardiac arrest, CPR Acute kidney injury, resolved Thrombocytopenia, hyponatremia, chronic anemia Lactic acidosis at [facility], resolved A-fib with RVR followed by bradycardia at [facility], currently sinus Hypotension, off IV Levophed, midodrine increased History of coronary artery disease with previous PCI and off-pump CABG x 3 on August 09, 2024 Left-sided pleural effusion (exudative in nature) status post thoracentesis x 4 with subsequent left-sided VATS with talc pleurodesis and placement of left- sided Pleurx catheter 09/29/2024 Right-sided pleural effusion status post thoracentesis x 1 Large pericardial effusion with Raymundo syndrome status post subxiphoid pericardial window 10/04/2024 Pneumopericardium Multiple admissions for abdominal pain, nausea, vomiting Left internal carotid artery stenosis, greater than 70% Diabetes mellitus Hypertension EtOH abuse Cirrhosis of the liver Multiple breast abscesses treated with antibiotics Bipolar disorder/anxiety Previous tobacco dependence Marijuana use Osteoarthritis Plan: Continue to drain Pleurx catheter as needed Continue prednisone daily with prolonged course to reduce inflammatory process, patient has tolerated well before Continue to maximize medical management with aspirin, statin and beta-lopez Continue midodrine Encourage use of incentive spirometry 10 times every hour while awake Will continue to monitor daily labs and x-rays Increase activity, ambulate as tolerated GI/DVT prophylaxis Pain control per current medication regimen, Van started today, Dilaudid timing spaced out Fluid/diuretic management per cardiology/nephrology Medical management of other comorbidities per internal medicine, intensive care service and cardiology More recommendations to follow based on patient's clinical course
--- NOTE | 2024-11-05 10:33 | P.PN ---
Subjective Patient is seen in follow-up for acute kidney injury. Patient was transferred from [facility] due to pericardial effusion. Creatinine was up to 2.4 this admission and is now back to baseline. Off vasopressors. No vomiting or diarrhea. Vital signs are stable. General: No acute distress. HEENT: Head exam is unremarkable. LUNGS: No audible rhonchi or wheezes. HEART: Rate and Rhythm are regular. ABDOMEN: Nontender. EXTREMITITES: 2+ edema. Objective - Vital Signs Vital signs: Vital Signs Temp 97.5 F L 11/05/24 08:00 Pulse 92 11/05/24 09:00 Resp 15 11/05/24 09:00 BP 139/74 11/05/24 09:00 Pulse Ox 99 11/05/24 09:00 FiO2 Intake & Output 11/04/24 11/05/24 11/05/24 18:59 06:59 18:59 Intake Total 587.173 86.372 100 Output Total 500 350 400 Balance 87.173 -263.628 -300 Weight 110.3 kg Intake: IV 245 40 Sodium Chloride 0.9% 1, 245 40 000 ml @ 50 mls/hr IV . Q20H GABO Rx#:[id number] Intake, IV Titration 342.173 46.372 Amount Norepinephrine 4 mg In 242.173 46.372 Sodium Chloride 0.9% 250 ml @ 0.03 MCG/KG/MIN 11. 041 mls/hr IV .Q23H1M GABO Rx#:[id number] Sodium Ferric Gluconat- 100 Sucrose 125 mg In Sodium Chloride 0.9% 100 ml @ 100 mls/hr IVPB DAILY GABO Rx#:[id number] Oral 100 Output: Drainage 200 Left Chest 200 Urine 300 350 400 Other: Voiding Method Toilet Toilet Toilet # Bowel Movements 1 - Labs CBC & Chem 7: 11/05/24 03:07 11/05/24 03:02 Labs: Abnormal Lab Results - Last 24 Hours (Table) 11/05/24 11/05/24 Range/Units 03:02 03:07 RBC 3.63 L (3.80-5.40) m/uL Hgb 8.6 L (11.4-16.0) gm/dL Hct 28.8 L (34.0-46.0) % MCV 79.5 L (80.0-100.0) fL MCH 23.8 L (25.0-35.0) pg MCHC 30.0 L (31.0-37.0) g/dL RDW 17.7 H (11.5-15.5) % Plt Count 147 L (150-450) k/uL Sodium 133 L (137-145) mmol/L Chloride 109 H (98-107) mmol/L Carbon Dioxide 18 L (22-30) mmol/L Glucose 136 H (74-99) mg/dL Assessment and Plan Plan: Assessment: 1. Acute kidney injury secondary to ATN secondary to hypotension and hypovolemia improved with IV hydration. Resolved. UA benign. CT scan from October 2024 showed no evidence of hydronephrosis. Bilateral nonobstructing stones were noted. Baseline creatinine near 1. 2. Pericardial effusion status post pericardial window October 04, 2024. 3. Pleural effusions requiring thoracentesis and also history of left-sided VATS. 4. Coronary disease status post CABG in August 2024. 5. Diabetes mellitus. 6. Anemia. Iron deficiency noted. 7. Metabolic acidosis secondary to IV fluids. On oral bicarb. 8. Volume overload. Plan: Maintain midodrine. Lasix 20 mg IV once today. Maintain IV iron. Preserved EF noted on echocardiogram. Cortisol level on the lower end at 5.4 - patient is on prednisone
[2024-11-05] MEDS: HYDROmorphone 1 MG/ML 1 ML SYRINGE IVP PRN (13:42)
--- NOTE | 2024-11-05 16:05 | P.PN ---
Subjective Progress Note Date: 11/05/24 Principal diagnosis: Pericardial and left pleural effusion Patient is a 49-year-old female with complicated past medical history significant for coronary artery disease with previous PCI/stenting and subsequent CABG x 3, recurrent left-sided pleural effusion with frequent thora centesis status post left-sided VATS with talc pleurodesis and left sided Pleurx catheter placement, right-sided pleural effusion, diabetes mellitus, hypertension, carotid artery stenosis, alcohol abuse, liver disease, breast abscess, bipolar disorder/anxiety, previous tobacco dependence, chronic ma rijuana use. Note that back on August 09, 2024 patient underwent off-pump CABG x 3 at our facility. She had a prolonged and complicated hospitalization. Following the procedure, she developed persistent left-sided/recurrent pleural effusion requiring multiple thoracentesis, and did undergo left thoracoscopy, talc pleurodesis, and placement of a left Pleurx catheter on 09/29/2024. She also developed a rather large pericardial effusion, requiring subxiphoid pericardial window done 10/04/2024. She was finally discharged home from this facility 10/14/2024. While at home, the patient started having recurrent nausea and vomiting, was unable to tolerate food or drink, and was admitted at our facility 10/19/2024 through 10/23/2024 with colitis. [facility]. Reportedly, found to have acute kidney injury and was admitted. Previously taking Toradol on an outpatient basis. While at outside facility, she was in the bathroom and became lightheaded. She does not recall other events while in the bathroom. Patient reportedly had a syncopal event and had brief CPR. I do not believe the patient ever lost a pulse. She did respond and did not require any intubation. Following the event, patient was reportedly found to be in A-fib RVR and then later was bradycardic. She was started on dopamine, and danielson sferred to our facility. I believe the concern was for enlarging pericardial effusion. Follow-up chest CT at our facility showing resolution of gas within the pericardium seen on prior CTs, persistent small to moderate-sized pericardial effusion without tamponade features. Moderate to large left-sided pleural effusion. Patient does have Pleurx catheter in the pleural space. No obvious traumatic rib fractures or pneumothoraces. Patient is currently being evaluated in the intensive care unit. She is alert and oriented. No focal neurological deficits. No history of seizures, CVA/TIA, or prior syncopal events. Resting comfortably on 2 L/min nasal cannula. SpO2 is reading 100%. Patient states that she continues to drain her Pleurx catheter every 2 to 3 days. Gets anywhere from 50 to 200 cc of serous output when draining. She has not drained the catheter in a few days. She continues on dopamine which is infusing at 10 mcg/kg/min. Heart rate is actually tachycardic. This is sinus tachycardia, 106 bpm on bedside monitor. Blood pressure remains borderline 95/59 mmHg. She reports a mild amount of reproducible right-sided chest pain with deep breathing, coughing, or palpation. While in bed, denies any lightheadedness, heart palpitations, radiating chest pain, orthopnea. She does report some increased lower extremity swelling, bilaterally. No further episodes of vomiting. Intermittent nausea, however, is tolerating oral intake at this time. Denies any diarrhea, hematochezia, melena, hematemesis. She does report epigastric abdominal pain, which has been persistent over the last 2-1/2 months. Did have an EGD done August 31, 2024, which was fairly unremarkable in the report. She has been previously treated for colitis. CBC: WBC count 10.8, hemoglobin 8.8, hematocrit 28.7, platelets 133. CMP: Sodium 132, potassium 4.6, chloride 107, serum bicarb 17, BUN 26, creatinine 1.2, glucose 191. Magnesium 2. LFTs unremarkable. Normal saline infusing at 50 mL/h. Patient was evaluated today 11/03/2024, remains in the ICU, on 2 L nasal cannula, still requiring norepinephrine at 0.03 mcg/kg/min, patient was seen by cardiothoracic surgery and did not feel a need to have pericardial window or pericardiocentesis. She does have a moderate size loculated pericardial effusion, no plans to drain at this point. Patient remains a bit on the hypotensive side, requiring norepinephrine and midodrine was added today. Her left-sided pleural effusion has been drained patient does have a left Pleurx catheter in place. WBC is 4.7 hemoglobin 7.7 electrolytes are normal renal profile is normal Seen today on 11/04/2024, patient remains in the ICU mostly because she is still requiring norepinephrine at 0.05 mcg/kg/min to maintain adequate blood pressure. Her midodrine dose has been increased, patient cam is doing well, asymptomatic on room air, denies any shortness of breath no cough no wheezing no chest pain. Continues to have Pleurx catheter in place, thoracic surgery is not planning any intervention on her pericardial effusion. Evaluated today on 11/05/2024, patient is about the same, however she is off norepinephrine today, blood pressure is marginal. Denies any specific complaints, no cough no wheezing no shortness of breath no chest pain.WBC count is 8.3 hemoglobin 8.6 electrolytes are normal renal profile is normal Objective - Vital Signs Vital signs: Vital Signs Temp 97.8 F 11/05/24 12:00 Pulse 65 11/05/24 14:30 Resp 15 11/05/24 14:30 BP 92/46 11/05/24 14:30 Pulse Ox 93 L 11/05/24 14:30 FiO2 Intake & Output 11/04/24 11/05/24 11/05/24 18:59 06:59 18:59 Intake Total 587.173 86.372 750 Output Total 500 350 400 Balance 87.173 -263.628 350 Weight 110.3 kg Intake: IV 245 40 Sodium Chloride 0.9% 1, 245 40 000 ml @ 50 mls/hr IV . Q20H GABO Rx#:[id number] Intake, IV Titration 342.173 46.372 Amount Norepinephrine 4 mg In 242.173 46.372 Sodium Chloride 0.9% 250 ml @ 0.03 MCG/KG/MIN 11. 041 mls/hr IV .Q23H1M GABO Rx#:[id number] Sodium Ferric Gluconat- 100 Sucrose 125 mg In Sodium Chloride 0.9% 100 ml @ 100 mls/hr IVPB DAILY GABO Rx#:[id number] Oral 750 Output: Drainage 200 Left Chest 200 Urine 300 350 400 Other: Voiding Method Toilet Toilet Toilet # Bowel Movements 1 - Exam GENERAL EXAM: 49-year-old female in no distress on room air HEAD: Normocephalic and atraumatic EYES: Normal reaction of pupils, equal size. NOSE: Clear with pink turbinates. THROAT: No erythema or exudates. Edentulous. NECK: No masses, no JVD. CHEST: No chest wall deformity. Approximated and pink sternal incision, without drainage. Left-sided Pleurx catheter noted. LUNGS: diminished breath sounds at the left base CVS: Distant S1 and S2 normal with no audible murmur, regular rhythm. No extra heart sounds ABDOMEN: Obese abdomen soft nontender no megaly no rebound no guarding SKIN: No rashes CENTRAL NERVOUS SYSTEM: Alert oriented x 3 no gross focal deficit EXTREMITIES: Clubbing, edema or cyanosis - Labs CBC & Chem 7: 11/05/24 03:07 11/05/24 03:02 Labs: Abnormal Lab Results - Last 24 Hours (Table) 11/05/24 11/05/24 Range/Units 03:02 03:07 RBC 3.63 L (3.80-5.40) m/uL Hgb 8.6 L (11.4-16.0) gm/dL Hct 28.8 L (34.0-46.0) % MCV 79.5 L (80.0-100.0) fL MCH 23.8 L (25.0-35.0) pg MCHC 30.0 L (31.0-37.0) g/dL RDW 17.7 H (11.5-15.5) % Plt Count 147 L (150-450) k/uL Sodium 133 L (137-145) mmol/L Chloride 109 H (98-107) mmol/L Carbon Dioxide 18 L (22-30) mmol/L Glucose 136 H (74-99) mg/dL Assessment and Plan Assessment: Impression: Pericardial effusion being addressed by cardiology and cardiothoracic surgery, no plans for any surgical intervention Chronic recurrent left pleural effusion requiring Pleurx catheter and getting drained almost on every other day basis Suspect syncopal event Bradycardia, resolved hypotension requiring norepinephrine and midodrine was added Acute kidney injury, resolved Microcytic, hypochromic anemia, hemoglobin stable at 8.8 g/dL, patient denies any blood loss Coronary artery disease with previous PCI/stenting and subsequent CABG x 3 normed on August 09, 2024, followed by a prolonged and complicated hospital course. Left-sided/recurrent pleural effusion requiring multiple thoracentesis, and did undergo left thoracoscopy, talc pleurodesis, and placement of a left Pleurx catheter on 09/29/2024. Pleurx catheter remains, the patient has a large left- sided pleural effusion. Acute hypoxemic respiratory failure, secondary to above History of hypertension History of hyperlipidemia History of diabetes mellitus History of bilateral carotid artery stenosis, with a greater than 70% stenosis of the left carotid bifurcation and less than 50% stenosis to the right carotid bifurcation History of breast abscess History of liver disease History of alcohol abuse Bipolar disorder/anxiety Chronic marijuana use Obesity, with a BMI of 37.7 kg/m Recommendation: Continue present supportive care measures Transfer to medical surgical floor since the patient is not requiring any pressors Consider discharge planning if cleared by other [employer] consultant Continue midodrine continue GI and DVT prophylaxis Cardiology and cardiothoracic surgery are following need to clear for any discharge planning Will continue to follow while inpatient Time with Patient: Less than 30
[2024-11-05] MEDS: FUROSEMIDE 10 MG/ML 2 ML VIAL IV ONE (17:11)
--- NOTE | 2024-11-05 20:55 | PN ---
PROGRESS NOTE SUBJECTIVE: A 49-year-old lady with history of CAD, status post CABG, status post recurrent pleural effusions and pericardial effusions, who was transferred from another facility for possible tamponade, but she was not in tamponade, but underwent Pleur-Evac catheter. She has moderate pericardial effusion without any tamponade and had been hypotensive. Her blood pressures have improved on the midodrine. They just stopped the Levophed that she is on. OBJECTIVE: VITAL SIGNS: Heart rate is 90 beats per minute, blood pressure is 113/64, respiratory rate is 18. CHEST: Reveals diminished air entry at the bases. HEART: Reveals first and second heart sounds. No gallop. Has a systolic murmur at the left lower sternal border. ABDOMEN: Soft. EXTREMITIES: Did not reveal any edema. Peripheral pulses are felt. ASSESSMENT: 1. Hypotension. 2. Recurrent pleural effusions. 3. Pericardial effusion. 4. Coronary artery disease, status post coronary artery bypass graft. PLAN: She will continue the midodrine that she is on. MMDANYL / FELICITAN: [id number] /
--- NOTE | 2024-11-06 02:17 | PN ---
PROGRESS NOTE DATE OF SERVICE: 11/04/2024 CHIEF COMPLAINT: Acute on chronic congestive heart failure with left pleural effusion and hypotension. HISTORY OF PRESENT ILLNESS: This lady is doing just about the same. Blood pressure is fluctuating somewhat as pressors are removed. She is not having any abdominal pain or vomiting. PHYSICAL EXAMINATION: GENERAL: She is pale. VITAL SIGNS: Systolic blood pressure is just under 100. Breath sounds are diminished on both sides and particularly on the left. ABDOMEN: Soft, nontender. IMPRESSION: 1. Acute on chronic congestive heart failure. 2. Atherosclerotic cardiomyopathy. 3. Status post coronary artery bypass grafting and subsequent coronary artery stenting. 4. Status post pericardial effusion and pericardial window. 5. Left pleural effusion with PleurX valve. 6. Epigastric pain. PLAN: Continue to follow with Cardiology and Pulmonology. When she is off pressors, she may be able to be moved to the floor and her activity increased. MMODL / IJN: [id number] /
--- NOTE | 2024-11-06 02:55 | PN ---
PROGRESS NOTE DATE OF SERVICE: 11/05/2024 CHIEF COMPLAINT: Acute on chronic congestive heart failure with left pleural effusion and hypotension. HISTORY OF PRESENT ILLNESS: This lady is doing fairly well, but blood pressures are still somewhat low. She is off her pressors now. Blood pressure is running in the high 80s. She denies any shortness of breath, but she is having a slight chest discomfort. PHYSICAL EXAMINATION: VITAL SIGNS: Blood pressure is 88. GENERAL: She is pale. CHEST: Breath sounds are heard bilaterally and diminished on the left. CARDIAC: Normal. ABDOMEN: Soft and nontender. IMPRESSION: 1. Acute on chronic congestive heart failure. 2. Coronary artery disease and atherosclerotic cardiomyopathy. 3. Left pleural effusion. PLAN: No change in program and continue to follow with hopes that her blood pressure will improve and her activity can be increased. MMODL / IJN: [id number] /
--- NOTE | 2024-11-06 07:29 | XR ---
2 view chest HISTORY: Pleural effusion COMPARISON: 11/05/2024 TECHNIQUE: PA and lateral views chest obtained. FINDINGS: No change in the left chest tube. Moderate left pleural effusion which is increased significantly in the interval. There is no pneumothorax. The right lung is clear. The pulmonary vasculature is not congested. The he art size appears prominent. The osseous structures are intact. IMPRESSION: Moderate left pleural effusion which is increased significantly in the interval. There is no change i n left chest tube. There is no pneumothorax. [facility], , 11/06/2024 7:26 AM
--- NOTE | 2024-11-06 09:02 | P.PN ---
Subjective Progress Note Date: 11/06/24 Principal diagnosis: Abdominal pain, nausea, vomiting, pericardial effusion, left-sided pleural effusion, syncopal episode, acute kidney injury, thrombocytopenia, hyponatremia, chronic anemia, lactic acidosis A-fib with RVR followed by bradycardia, hypotension. History of coronary artery disease with previous PCI and off-pump CABG x 3 on August 09, 2024, left-sided pleural effusion (exudative in nature) status post thoracentesis x 4 with subsequent left-sided VATS with talc pleurodesis and placement of left-sided Pleurx catheter 09/29/2024, right-sided pleural effusion status post thoracentesis x 1, large pericardial effusion with Raymundo syndrome status post subxiphoid pericardial window 10/04/2024, pneumopericardium, multiple admissions for abdominal pain, nausea, vomiting, left internal carotid artery stenosis, diabetes mellitus, hypertension, EtOH abuse, cirrhosis of the liver, multiple breast abscesses treated with antibiotics, bipolar disorder/anxiety, previous tobacco dependence, marijuana use, osteoarthritis The patient was seen and examined sitting up in a recliner on the cardiac stepdown unit in no acute distress. She remains in sinus rhythm, blood pressure marginal but stable. She states her abdominal pain has significantly improved and she has been able to tolerate diet. She states her breathing has significantly improved, does states she feels mildly short of breath at night with laying down but other than that she is doing well. Remains on room air with oxygen saturation in the high 90s, able to achieve 1000 mL on her incentive spirometry. She has been ambulatory without difficulty. She does complain of some chest discomfort likely related to CPR, IV Dilaudid spaced out to every 6 hours yesterday which she continues to ask for. [place] was also added and she is requesting increase from 7.5 mg to 10 mg. She continues on IV iron by nephrology for anemia. IV fluids currently hep-locked. Plans to drain Pleurx catheter again today. Objective - Vital Signs Vital signs: Vital Signs Temp 97.8 F 11/05/24 22:38 Pulse 69 11/06/24 04:00 Resp 16 11/06/24 04:00 BP 81/46 11/06/24 04:00 Pulse Ox 97 11/06/24 04:00 FiO2 Intake & Output 12/06/24 12/07/24 12/07/24 18:59 06:59 18:59 Intake Total 950 Output Total 701 350 Balance 249 -350 Weight 110.2 kg Intake: Oral 950 Output: Urine 700 350 Stool 1 Other: Voiding Method Bedside Commode Bedside Commode # Voids 1 - Exam CONSTITUTIONAL: Appears comfortable, cooperative, no acute distress RESPIRATORY: Lungs sounds diminished bilaterally. Respirations even, nonlabored. Currently on room air with oxygen saturation 97%. Able to achieve 1500 mL on incentive spirometry. Strong cough. Left Pleurx catheter present under dry intact dressing. CARDIOVASCULAR: S1, S2 present. Regular rate and rhythm, sinus rhythm on telemetry. Sternum stable. Palpable peripheral pulses bilaterally. Bilateral lower extremity edema present. No calf pain or tenderness noted GASTROINTESTINAL: Abdomen soft, nontender, nondistended. Active bowel sounds present 4 quadrants. Tolerating diet. Positive bowel movement 11/04 GENITOURINARY: Continues to void, not always measured INTEGUMENTARY: Skin is warm and dry. Anterior sternal chest incision well- healed. Pericardial window site clean, no drainage, granulation tissue present NEUROLOGIC: Cranial nerves II through XII intact MUSKULOSKELETAL: Able to move all extremities, strength equal bilaterally, gait normal PSYCHIATRIC: Alert and oriented to person place and time, appropriate affect, intact judgment and insight - Allied health notes Allied health notes reviewed: nursing - Labs CBC & Chem 7: 11/05/24 03:07 11/05/24 03:02 - Imaging and Cardiology Chest x-ray: report reviewed, image reviewed Assessment and Plan Assessment: Abdominal pain, nausea, vomiting this admission Pericardial effusion Left-sided pleural effusion Pleurx drained 900 mL on 11/02, 350 mL on 11/03, 200 mL on 11/04 Syncopal episode with questionable cardiac arrest, CPR Acute kidney injury, resolved Thrombocytopenia, hyponatremia, chronic anemia Lactic acidosis at [facility], resolved A-fib with RVR followed by bradycardia at [facility], currently sinus Hypotension, off IV Levophed, midodrine increased History of coronary artery disease with previous PCI and off-pump CABG x 3 on August 09, 2024 Left-sided pleural effusion (exudative in nature) status post thoracentesis x 4 with subsequent left-sided VATS with talc pleurodesis and placement of left- sided Pleurx catheter 09/29/2024 Right-sided pleural effusion status post thoracentesis x 1 Large pericardial effusion with Raymundo syndrome status post subxiphoid pericardial window 10/04/2024 Pneumopericardium Multiple admissions for abdominal pain, nausea, vomiting Left internal carotid artery stenosis, greater than 70% Diabetes mellitus Hypertension EtOH abuse Cirrhosis of the liver Multiple breast abscesses treated with antibiotics Bipolar disorder/anxiety Previous tobacco dependence Marijuana use Osteoarthritis Plan: Continue to drain Pleurx catheter as needed, plans to drain today Continue prednisone daily with prolonged course to reduce inflammatory process, patient has tolerated well before Continue to maximize medical management with aspirin, statin and beta-lopez Continue midodrine Encourage use of incentive spirometry 10 times every hour while awake Will continue to monitor daily labs and x-rays Increase activity, ambulate as tolerated GI/DVT prophylaxis Pain control per current medication regimen, [place] dosage increased. Patient/ requesting [place] to be prescribed at discharge Fluid/diuretic management per cardiology/nephrology Medical management of other comorbidities per internal medicine, intensive care service and cardiology More recommendations to follow based on patient's clinical course
[2024-11-06] MEDS: HYDROcodone/APAP 10-325MG 1 EACH TAB PO PRN (10:13)
[2024-11-06] MEDS: FUROSEMIDE 10 MG/ML 2 ML VIAL IV SCH (10:13)
[2024-11-06] MEDS: FLUDROCORTISONE 0.1 MG TAB PO SCH (10:13)
--- NOTE | 2024-11-06 11:39 | P.PN ---
Subjective Progress Note Date: 11/06/24 This is a 49-year-old female with past medical history of CAD status post CABG, status post recurrent pleural effusions and pericardial effusions. She was transferred from another facility for possible tamponade but was not in tamponade but underwent pleural EVAC catheter. She has a moderate pericardial effusion without any tamponade and has been hypotensive. She was improved on midodrine and Levophed was discontinued. Patient has been transferred out of the intensive care unit and seen today on the cardiac stepdown unit. Blood pressure 103/58, heart rate 73, pulse ox 100% on room air. Repeat blood work reveals hemoglobin 8.6, platelet count 147. Sodium 133, potassium 4.4, CO2 18, BUN 11 creatinine 0.9. Repeat chest x-ray reveals moderate left pleural effusion which is increased. No change in left chest tube. No pneumothorax. Physical examination: Gen: This is a 49-year-old female in no acute distress VS: reviewed LUNGS: Diminished breath sounds bilaterally. No intercostal retractions. HEART: Regular rate and rhythm. Systolic murmur at the left lower sternal border. ABDOMEN: Soft No tenderness. EXTREMITIES: No pedal edema. No calf tenderness. NEUROLOGICAL: Patient is awake, alert and oriented x3. Assessment: Hypotension Recurrent pleural effusions Pericardial effusion Coronary artery disease status post CABG Plan: Continue patient on midodrine 10 mg 3 times daily and add Florinef 0.1 mg daily Continue aspirin, statin, beta-lopez Start patient on IV Lasix 20 mg daily Monitor RICARDO, daily weights, electrolytes and renal function Further recommendations to follow based upon clinical course Nurse practitioner note has been reviewed, I agree with documented findings and plan of care. Patient was seen and examined. Objective - Vital Signs Vital signs: Vital Signs Temp 97.8 F 11/05/24 22:38 Pulse 69 11/06/24 04:00 Resp 16 11/06/24 04:00 BP 81/46 11/06/24 04:00 Pulse Ox 97 11/06/24 04:00 FiO2 Intake & Output 11/05/24 11/06/24 11/06/24 18:59 06:59 18:59 Intake Total 950 Output Total 701 350 Balance 249 -350 Weight 110.2 kg Intake: Oral 950 Output: Urine 700 350 Stool 1 Other: Voiding Method Bedside Commode Bedside Commode # Voids 1 - Labs CBC & Chem 7: 12/06/24 03:07 11/05/24 03:02
--- NOTE | 2024-11-06 12:24 | P.PN ---
Subjective Progress Note Date: 11/06/24 Patient is seen in follow-up for acute kidney injury. Patient was transferred from [facility] due to pericardial effusion. Creatinine was up to 2.4 this admission and is now back to baseline. Off vasopressors. Feeling well. Vital signs are stable. General: No acute distress. HEENT: Head exam is unremarkable. LUNGS: No audible rhonchi or wheezes. HEART: Rate and Rhythm are regular. ABDOMEN: Nontender. EXTREMITITES: 2+ edema. Objective - Vital Signs Vital signs: Vital Signs Temp 97.8 F 11/05/24 22:38 Pulse 69 11/06/24 04:00 Resp 16 11/06/24 04:00 BP 81/46 11/06/24 04:00 Pulse Ox 97 11/06/24 04:00 FiO2 Intake & Output 11/05/24 11/06/24 11/06/24 18:59 06:59 18:59 Intake Total 950 Output Total 701 350 Balance 249 -350 Weight 110.2 kg Intake: Oral 950 Output: Urine 700 350 Stool 1 Other: Voiding Method Bedside Commode Bedside Commode # Voids 1 - Labs CBC & Chem 7: 11/05/24 03:07 11/05/24 03:02 Assessment and Plan Assessment: 1. Acute kidney injury secondary to ATN secondary to hypotension and hypovolemia improved with IV hydration. Resolved. UA benign. CT scan from October 2024 showed no evidence of hydronephrosis. Bilateral nonobstructing stones were noted. Baseline creatinine near 1. 2. Pericardial effusion status post pericardial window October 04, 2024. 3. Pleural effusions requiring thoracentesis and also history of left-sided VATS. 4. Coronary disease status post CABG in August 2024. 5. Diabetes mellitus. 6. Anemia. Iron deficiency noted. 7. Metabolic acidosis secondary to IV fluids. On oral bicarb. 8. Volume overload. Plan: Maintain midodrine. Lasix as needed Maintain IV iron. Preserved EF noted on echocardiogram. Cortisol level on the lower end at 5.4 - patient is on prednisone
--- NOTE | 2024-11-06 12:45 | P.PN ---
Subjective Progress Note Date: 11/06/24 Patient is a 49-year-old female with complicated past medical history significant for coronary artery disease with previous PCI/stenting and subsequent CABG x 3, recurrent left-sided pleural effusion with frequent thoracentesis status post left-sided VATS with talc pleurodesis and left sided Pleurx catheter placement, right-sided pleural effusion, diabetes mellitus, hypertension, carotid artery stenosis, alcohol abuse, liver disease, breast abscess, bipolar disorder/anxiety, previous tobacco dependence, chronic marijuana use. Note that back on August 09, 2024 patient underwent off-pump CABG x 3 at our facility. She had a prolonged and complicated hospitalization. Following the procedure, she developed persistent left-sided/recurrent pleural effusion requiring multiple thoracentesis, and did undergo left thoracoscopy, talc pleurodesis, and placement of a left Pleurx catheter on 09/29/2024. She also developed a rather large pericardial effusion, requiring subxiphoid pericardial window done 10/04/2024. She was finally discharged home from this facility 10/14/2024. While at home, the patient started having recurrent nausea and vomiting, was unable to tolerate food or drink, and was admitted at our facility 10/19/2024 through 10/23/2024 with colitis. She was discharged, and went to [facility] with similar symptoms. Reportedly, found to have acute kidney injury and was admitted. Previously taking Toradol on an outpatient basis. While at outside facility, she was in the bathroom and became lightheaded. She does not recall other events while in the bathroom. Patient reportedly had a syncopal event and had brief CPR. I do not believe the patient ever lost a pulse. She did respond and did not require any intubation. Following the event, patient was reportedly found to be in A-fib RVR and then later was bradycardic. She was started on dopamine, and transferred to our facility. I believe the concern was for enlarging pericardial effusion. Follow-up chest CT at our facility showing resolution of gas within the pericardium seen on prior CTs, persistent small to moderate-sized pericardial effusion without tamponade features. Moderate to large left-sided pleural effusion. Patient does have Pleurx catheter in the pleural space. No obvious traumatic rib fractures or pneumothoraces. Patient is currently being evaluated in the intensive care unit. She is alert and oriented. No focal neurological deficits. No history of seizures, CVA/TIA, or prior syncopal events. Resting comfortably on 2 L/min nasal cannula. SpO2 is reading 100%. Patient states that she continues to drain her Pleurx catheter every 2 to 3 days. Gets anywhere from 50 to 200 cc of serous output when draining. She has not drained the catheter in a few days. She continues on dopamine which is infusing at 10 mcg/kg/min. Heart rate is actually tachycardic. This is sinus tachycardia, 106 bpm on bedside monitor. Blood pressure remains borderline 95/59 mmHg. She reports a mild amount of reproducible right-sided chest pain with deep breathing, coughing, or palpation. While in bed, denies any lightheadedness, heart palpitations, radiating chest pain, orthopnea. She does report some increased lower extremity swelling, bilaterally. No further episod es of vomiting. Intermittent nausea, however, is tolerating oral intake at this time. Denies any diarrhea, hematochezia, melena, hematemesis. She does report epigastric abdominal pain, which has been persistent over the last 2-1/2 months. Did have an EGD done August 31, 2024, which was fairly unremarkable in the report. She has been previously treated for colitis. CBC: WBC count 10.8, hemoglobin 8.8, hematocrit 28.7, platelets 133. CMP: Sodium 132, potassium 4.6, chloride 107, serum bicarb 17, BUN 26, creatinine 1.2, glucose 191. Magnesium 2. LFTs unremarkable. Normal saline infusing at 50 mL/h. Patient was evaluated today 11/03/2024, remains in the ICU, on 2 L nasal cannula, still requiring norepinephrine at 0.03 mcg/kg/min, patient was seen by cardiothoracic surgery and did not feel a need to have pericardial window or pericardiocentesis. She does have a moderate size loculated pericardial effusion, no plans to drain at this point. Patient remains a bit on the hypotensive side, requiring norepinephrine and midodrine was added today. Her left-sided pleural effusion has been drained patient does have a left Pleurx catheter in place. WBC is 4.7 hemoglobin 7.7 electrolytes are normal renal profile is normal Seen today on 11/04/2024, patient remains in the ICU mostly because she is still requiring norepinephrine at 0.05 mcg/kg/min to maintain adequate blood pressure. Her midodrine dose has been increased, patient cam is doing well, asymptomatic on room air, denies any shortness of breath no cough no wheezing no chest pain. Continues to have Pleurx catheter in place, thoracic surgery is not planning any intervention on her pericardial effusion. Evaluated today on 11/05/2024, patient is about the same, however she is off norepinephrine today, blood pressure is marginal. Denies any specific complaints, no cough no wheezing no shortness of breath no chest pain.WBC count is 8.3 hemoglobin 8.6 electrolytes are normal renal profile is normal The patient is seen today November 06, 2024 in follow-up on the selective care unit. She is currently sitting up in a chair at the bedside. Awake and alert in no acute distress. Denies any worsening shortness of breath, cough or congestion. She is maintaining good O2 saturations in the 90s on room air. She has been afebrile. Hemodynamically stable. White count 8.3. Hemoglobin 8.6. Platelets 147. Sodium 133. Potassium 4.4. Bicarb 18. BUN 11. Creatinine 0.9. She remains on IV diuretics. Heparin for DVT prophylaxis. Continued on prednisone taper. Chest x-ray reveals moderate left pleural effusion. No pneumothorax. Left-sided Pleurx catheter remains in place. Being managed by CT service. Objective - Vital Signs Vital signs: Vital Signs Temp 97.9 F 11/06/24 08:00 Pulse 73 11/06/24 08:00 Resp 18 11/06/24 08:00 BP 103/58 11/06/24 08:00 Pulse Ox 100 11/06/24 08:00 FiO2 Intake & Output 11/05/24 11/06/24 11/06/24 18:59 06:59 18:59 Intake Total 950 240 Output Total 701 350 1 Balance 249 -350 239 Weight 110.2 kg 110.2 kg Intake: Oral 950 240 Output: Urine 700 350 Stool 1 1 Other: Voiding Method Bedside Commode Bedside Commode # Voids 1 - Exam GENERAL EXAM: Alert, 49-year-old female, up in a chair, on room air, comfortable in no apparent distress. HEAD: Normocephalic. EYES: Normal reaction of pupils, equal size. NOSE: Clear with pink turbinates. THROAT: No erythema or exudates. NECK: No masses, no JVD. CHEST: No chest wall deformity. Left-sided Pleurx catheter secured in place. LUNGS: Equal air entry with crackles in the left lung base, diminished. CVS: S1 and S2 normal with no audible murmur, regular rhythm. ABDOMEN: No hepatosplenomegaly, normal bowel sounds, no guarding or rigidity. SPINE: No scoliosis or deformity SKIN: No rashes CENTRAL NERVOUS SYSTEM: No focal deficits, tone is normal in all 4 extremities. EXTREMITIES: There is 1+ peripheral edema. No clubbing, no cyanosis. Peripheral pulses are intact. - Labs CBC & Chem 7: 11/05/24 03:07 11/05/24 03:02 Assessment and Plan Assessment: Pericardial effusion being addressed by cardiology and cardiothoracic surgery, no plans for any surgical intervention Chronic recurrent left pleural effusion requiring Pleurx catheter and getting drained almost on every other day basis Suspect syncopal event Bradycardia, resolved hypotension requiring norepinephrine and midodrine was added Acute kidney injury, resolved Microcytic, hypochromic anemia, hemoglobin stable at 8.8 g/dL, patient denies any blood loss Coronary artery disease with previous PCI/stenting and subsequent CABG x 3 normed on August 09, 2024, followed by a prolonged and complicated hospital course. Left-sided/recurrent pleural effusion requiring multiple thoracentesis, and did undergo left thoracoscopy, talc pleurodesis, and placement of a left Pleurx catheter on 09/29/2024. Pleurx catheter remains, the patient has a large left- sided pleural effusion. Acute hypoxemic respiratory failure, secondary to above History of hypertension History of hyperlipidemia History of diabetes mellitus History of bilateral carotid artery stenosis, with a greater than 70% stenosis of the left carotid bifurcation and less than 50% stenosis to the right carotid bifurcation History of breast abscess History of liver disease History of alcohol abuse Bipolar disorder/anxiety Chronic marijuana use Obesity, with a BMI of 37.7 kg/m Plan: The patient was seen and evaluated Chest x-ray, labs and medications reviewed Pleurx catheter managed by CT service Stable and on room air Remains on IV diuretics Continued on steroids Heparin for DVT prophylaxis Increase her activity as tolerated We will continue to follow This patient was seen independently by the pulmonary nurse practitioner addressing pulmonary issues I have personally seen and examined the patient, performed the documentation and the assessment and plan as written. Number of minutes spent on the visit: 25 Dictation was produced using [employer] dictation software. Please excuse any grammatical, word or spelling errors.
--- NOTE | 2024-11-06 19:10 | PN ---
PROGRESS NOTE DATE OF SERVICE: 11/06/2024 CHIEF COMPLAINT: Congestive heart failure with cardiac tamponade and left pleural effusion. HISTORY OF PRESENT ILLNESS: This lady is feeling fairly well. She has been moved out of ICU. Left side of the chest was drained today for about 800 mL. She still has episodes of hypotension down as low as 80. PHYSICAL EXAMINATION: LUNGS: Breath sounds are diminished at the left base. CARDIAC: Sounds normal. ABDOMEN: Soft. Nontender. IMPRESSION: 1. Coronary artery disease. 2. Pericardial effusion, status post pericardial window. 3. Chronic left pleural effusion. PLAN: 1. Increase activity. 2. Continue to follow her hypotension as well as her congestive heart failure and continue with accumulation of fluid in the left chest with despite pleurodesis. MMODL / IJN: [id number] /
--- NOTE | 2024-11-07 07:14 | XR ---
2 view chest HISTORY: Follow-up left pleural effusion COMPARISON: 11/06/2024 TECHNIQUE: PA and lateral views chest obtained. FINDINGS: There is no change in the position of left chest tube. There is metastatic marked reduction in the le ft pleural effusion. Tiny pleural effusion persists. There is moderate cardiomegaly. There is been prior CABG surgery. The right lung is clear. There is no pneumothorax.. IMPRESSION: Marked reduction in the left pleural effusion. A tiny left peripheral effusion persists. No other sig nificant interval changes. [facility], , 11/07/2024 7:12 AM
--- NOTE | 2024-11-07 08:37 | P.PN ---
Subjective Progress Note Date: 11/07/24 Principal diagnosis: Abdominal pain, nausea, vomiting, pericardial effusion, left-sided pleural effusion, syncopal episode, acute kidney injury, thrombocytopenia, hyponatremia, chronic anemia, lactic acidosis A-fib with RVR followed by bradycardia, hypotension. History of coronary artery disease with previous PCI and off-pump CABG x 3 on August 09, 2024, left-sided pleural effusion (exudative in nature) status post thoracentesis x 4 with subsequent left-sided VATS with talc pleurodesis and placement of left-sided Pleurx catheter 09/29/2024, right-sided pleural effusion status post thoracentesis x 1, large pericardial effusion with Raymundo syndrome status post subxiphoid pericardial window 10/04/2024, pneumopericardium, multiple admissions for abdominal pain, nausea, vomiting, left internal carotid artery stenosis, diabetes mellitus, hypertension, EtOH abuse, cirrhosis of the liver, multiple breast abscesses treated with antibiotics, bipolar disorder/anxiety, previous tobacco dependence, marijuana use, osteoarthritis The patient was seen and examined sitting up in a recliner on the cardiac stepdown unit in no acute distress, present. She remains in sinus rhythm, blood pressure stable. Continues to tolerate oral diet, continues to state bleeding has improved. Remains on room air with oxygen saturation in the high 90s, able to achieve 1000 mL on her incentive spirometry. She has been ambulatory without difficulty. She does complain of some chest discomfort likely related to CPR, IV Dilaudid spaced out to every 6 hours yesterday which she continues to ask for. Danbury was increased to 10 mg yesterday. Pleurx catheter drained yesterday for 800 mL of fluid, plans to drain again today. Remains on oral prednisone, IV Lasix and Florinef added yesterday per cardiology. Objective - Vital Signs Vital signs: Vital Signs Temp 97.6 F 11/06/24 23:19 Pulse 76 11/07/24 07:54 Resp 18 11/07/24 07:54 BP 118/76 11/07/24 07:54 Pulse Ox 100 11/07/24 07:54 FiO2 Intake & Output 11/06/24 11/07/24 11/07/24 18:59 06:59 18:59 Intake Total 240 540 Output Total 802 1 Balance -562 539 Weight 110.2 kg 107 kg Intake: Oral 240 540 Output: Chest Tube Drainage 800 Pleural Catheter 800 Stool 2 1 - Exam CONSTITUTIONAL: Appears comfortable, cooperative, no acute distress RESPIRATORY: Lungs sounds diminished bilaterally. Respirations even, nonlabored. Currently on room air with oxygen saturation 99%. Able to achieve 1500 mL on incentive spirometry. Strong cough. Left Pleurx catheter present under dry intact dressing. CARDIOVASCULAR: S1, S2 present. Regular rate and rhythm, sinus rhythm on telemetry. Sternum stable. Palpable peripheral pulses bilaterally. Bilateral lower extremity edema present. No calf pain or tenderness noted GASTROINTESTINAL: Abdomen soft, nontender, nondistended. Active bowel sounds present 4 quadrants. Tolerating diet. Positive bowel movement 11/04 GENITOURINARY: Continues to void, not being measured INTEGUMENTARY: Skin is warm and dry. Anterior sternal chest incision well- healed. Pericardial window site clean, no drainage, granulation tissue present NEUROLOGIC: Cranial nerves II through XII intact MUSKULOSKELETAL: Able to move all extremities, strength equal bilaterally, gait normal PSYCHIATRIC: Alert and oriented to person place and time, appropriate affect, intact judgment and insight - Allied health notes Allied health notes reviewed: nursing - Labs CBC & Chem 7: 11/05/24 03:07 11/05/24 03:02 - Imaging and Cardiology Chest x-ray: report reviewed, image reviewed Assessment and Plan Assessment: Abdominal pain, nausea, vomiting this admission Pericardial effusion Left-sided pleural effusion Pleurx drained 900 mL on 11/02, 350 mL on 11/03, 200 mL on 11/04, 800 mL 11/06 Syncopal episode with questionable cardiac arrest, CPR Acute kidney injury, resolved Thrombocytopenia, hyponatremia, chronic anemia Lactic acidosis at [facility], resolved A-fib with RVR followed by bradycardia at [facility], currently sinus Hypotension, off IV Levophed, currently on midodrine and Florinef added History of coronary artery disease with previous PCI and off-pump CABG x 3 on August 09, 2024 Left-sided pleural effusion (exudative in nature) status post thoracentesis x 4 with subsequent left-sided VATS with talc pleurodesis and placement of left- sided Pleurx catheter 09/29/2024 Right-sided pleural effusion status post thoracentesis x 1 Large pericardial effusion with Raymundo syndrome status post subxiphoid pericardial window 10/04/2024 Pneumopericardium Multiple admissions for abdominal pain, nausea, vomiting Left internal carotid artery stenosis, greater than 70% Diabetes mellitus Hypertension EtOH abuse Cirrhosis of the liver Multiple breast abscesses treated with antibiotics Bipolar disorder/anxiety Previous tobacco dependence Marijuana use Osteoarthritis Plan: Continue to drain Pleurx catheter as needed, plans to drain today Continue prednisone daily with prolonged course to reduce inflammatory process, patient has tolerated well before Continue to maximize medical management with aspirin, statin and beta-lopez Continue midodrine, Florinef added per cardiology Encourage use of incentive spirometry 10 times every hour while awake Will continue to monitor daily labs and x-rays Increase activity, ambulate as tolerated GI/DVT prophylaxis Pain control per current medication regimen. Recommend discontinuing IV Dilaudid. Patient/ requesting Danbury to be prescribed at discharge Fluid/diuretic management per cardiology/nephrology, IV Lasix daily added per cardiology Medical management of other comorbidities per internal medicine, intensive care service and cardiology More recommendations to follow based on patient's clinical course
[2024-11-07] MEDS: INSULIN ASPART (NovoLOG) 100 UNIT/ML VIAL SQ STA (08:56)
[2024-11-07 09:41] LABS: African American GFR (CKD) 82 (>60 ml/min/1.73 sqM); Anion Gap 5 mmol/L; Blood Urea Nitrogen 13 mg/dL (7-17); Calcium 8.6 mg/dL (8.4-10.2); Carbon Dioxide 27 mmol/L (22-30); Chloride 106 mmol/L (98-107); Glucose 103 mg/dL (74-99); Non-African American GFR(CKD) 72 (>60 ml/min/1.73 sqM); Potassium 3.4 mmol/L (3.5-5.1); Sodium 138 mmol/L (137-145)
--- NOTE | 2024-11-07 11:32 | P.PN ---
Subjective Progress Note Date: 11/07/24 Patient is seen in follow-up for acute kidney injury. Patient was transferred from [facility] due to pericardial effusion. Creatinine was up to 2.4 this admission and is now back to baseline. Off vasopressors. Feeling well. Vital signs are stable. General: No acute distress. HEENT: Head exam is unremarkable. LUNGS: No audible rhonchi or wheezes. HEART: Rate and Rhythm are regular. ABDOMEN: Nontender. EXTREMITITES: 2+ edema. Objective - Vital Signs Vital signs: Vital Signs Temp 97.6 F 11/06/24 23:19 Pulse 76 11/07/24 07:54 Resp 18 11/07/24 07:54 BP 118/76 11/07/24 07:54 Pulse Ox 100 11/07/24 07:54 FiO2 Intake & Output 11/06/24 11/07/24 11/07/24 18:59 06:59 18:59 Intake Total 240 540 Output Total 802 1 Balance -562 539 Weight 110.2 kg 107 kg Intake: Oral 240 540 Output: Chest Tube Drainage 800 Pleural Catheter 800 Stool 2 1 - Labs CBC & Chem 7: 11/05/24 03:07 11/07/24 07:49 Assessment and Plan Assessment: 1. Acute kidney injury secondary to ATN secondary to hypotension and hypovolemia improved with IV hydration. Resolved. UA benign. CT scan from October 2024 showed no evidence of hydronephrosis. Bilateral nonobstructing stones were noted. Baseline creatinine near 1. 2. Pericardial effusion status post pericardial window October 04, 2024. 3. Pleural effusions requiring thoracentesis and also history of left-sided VATS. 4. Coronary disease status post CABG in August 2024. 5. Diabetes mellitus. 6. Anemia. Iron deficiency noted. 7. Metabolic acidosis secondary to IV fluids. On oral bicarb. 8. Volume overload. Plan: Maintain midodrine. Lasix as needed Maintain IV iron. Preserved EF noted on echocardiogram. Cortisol level on the lower end at 5.4 - patient is on prednisone
--- NOTE | 2024-11-07 12:22 | P.PN ---
Subjective Progress Note Date: 11/07/24 Patient is a 49-year-old female with complicated past medical history significant for coronary artery disease with previous PCI/stenting and subsequent CABG x 3, recurrent left-sided pleural effusion with frequent thoracentesis status post left-sided VATS with talc pleurodesis and left sided Pleurx catheter placement, right-sided pleural effusion, diabetes mellitus, hypertension, carotid artery stenosis, alcohol abuse, liver disease, breast abscess, bipolar disorder/anxiety, previous tobacco dependence, chronic marijuana use. Note that back on August 09, 2024 patient underwent off-pump CABG x 3 at our facility. She had a prolonged and complicated hospitalization. Following the procedure, she developed persistent left-sided/recurrent pleural effusion requiring multiple thoracentesis, and did undergo left thoracoscopy, talc pleurodesis, and placement of a left Pleurx catheter on 09/29/2024. She also developed a rather large pericardial effusion, requiring subxiphoid pericardial window done 10/04/2024. She was finally discharged home from this facility 10/14/2024. While at home, the patient started having recurrent nausea and vomiting, was unable to tolerate food or drink, and was admitted at our facility 10/19/2024 through 10/23/2024 with colitis. She was discharged, and went to [facility] few days later with similar symptoms. Reportedly, found to have acute kidney injury and was admitted. Previously taking Toradol on an outpatient basis. While at outside facility, she was in the bathroom and became lightheaded. She does not recall other events while in the bathroom. Patient reportedly had a syncopal event and had brief CPR. I do not believe the patient ever lost a pulse. She did respond and did not require any intubation. Following the event, patient was reportedly found to be in A-fib RVR and then later was bradycardic. She was started on dopamine, and transferred to our facility. I believe the concern was for enlarging pericardial effusion. Follow-up chest CT at our facility showing resolution of gas within the pericardium seen on prior CTs, persistent small to moderate-sized pericardial effusion without tamponade features. Moderate to large left-sided pleural effusion. Patient does have Pleurx catheter in the pleural space. No obvious traumatic rib fractures or pneumothoraces. Patient is currently being evaluated in the intensive care unit. She is alert and oriented. No focal neurological deficits. No history of seizures, CVA/TIA, or prior syncopal events. Resting comfortably on 2 L/min nasal cannula. SpO2 is reading 100%. Patient states that she continues to drain her Pleurx catheter every 2 to 3 days. Gets anywhere from 50 to 200 cc of serous output when draining. She has not drained the catheter in a few days. She continues on dopamine which is infusing at 10 mcg/kg/min. Heart rate is actually tachycardic. This is sinus tachycardia, 106 bpm on bedside monitor. Blood pressure remains borderline 95/59 mmHg. She reports a mild amount of reproducible right-sided chest pain with deep breathing, coughing, or palpation. While in bed, denies any lightheadedness, heart palpitations, radiating chest pain, orthopnea. She does report some increased lower extremity swelling, bilaterally. No further episod es of vomiting. Intermittent nausea, however, is tolerating oral intake at this time. Denies any diarrhea, hematochezia, melena, hematemesis. She does report epigastric abdominal pain, which has been persistent over the last 2-1/2 months. Did have an EGD done August 31, 2024, which was fairly unremarkable in the report. She has been previously treated for colitis. CBC: WBC count 10.8, hemoglobin 8.8, hematocrit 28.7, platelets 133. CMP: Sodium 132, potassium 4.6, chloride 107, serum bicarb 17, BUN 26, creatinine 1.2, glucose 191. Magnesium 2. LFTs unremarkable. Normal saline infusing at 50 mL/h. Patient was evaluated today 11/03/2024, remains in the ICU, on 2 L nasal cannula, still requiring norepinephrine at 0.03 mcg/kg/min, patient was seen by cardiothoracic surgery and did not feel a need to have pericardial window or pericardiocentesis. She does have a moderate size loculated pericardial effusion, no plans to drain at this point. Patient remains a bit on the hypotensive side, requiring norepinephrine and midodrine was added today. Her left-sided pleural effusion has been drained patient does have a left Pleurx catheter in place. WBC is 4.7 hemoglobin 7.7 electrolytes are normal renal profile is normal Seen today on 11/04/2024, patient remains in the ICU mostly because she is still requiring norepinephrine at 0.05 mcg/kg/min to maintain adequate blood pressure. Her midodrine dose has been increased, patient cam is doing well, asymptomatic on room air, denies any shortness of breath no cough no wheezing no chest pain. Continues to have Pleurx catheter in place, thoracic surgery is not planning any intervention on her pericardial effusion. Evaluated today on 11/05/2024, patient is about the same, however she is off norepinephrine today, blood pressure is marginal. Denies any specific complaints, no cough no wheezing no shortness of breath no chest pain.WBC count is 8.3 hemoglobin 8.6 electrolytes are normal renal profile is normal The patient is seen today November 06, 2024 in follow-up on the selective care unit. She is currently sitting up in a chair at the bedside. Awake and alert in no acute distress. Denies any worsening shortness of breath, cough or congestion. She is maintaining good O2 saturations in the 90s on room air. She has been afebrile. Hemodynamically stable. White count 8.3. Hemoglobin 8.6. Platelets 147. Sodium 133. Potassium 4.4. Bicarb 18. BUN 11. Creatinine 0.9. She remains on IV diuretics. Heparin for DVT prophylaxis. Continued on prednisone taper. Chest x-ray reveals moderate left pleural effusion. No pneumothorax. Left-sided Pleurx catheter remains in place. Being managed by CT service. The patient is seen today November 07, 2024 in follow-up on the selective care unit. She is currently sitting up in bed. Awake and alert in no acute distress. Maintaining good O2 saturations in the 90s on room air. Chest x-ray shows marked reduction in the left pleural effusion. Tiny left pleural effusion persists. Pleurx catheter remains in place. She drained 300 mL of fluid today and 800 mL of fluid yesterday. Sodium 138. Potassium 3.4. Bicarb 27. BUN 13. Creatinine 0.95. Glucose 103. She remains on IV and oral diuretics. Heparin for DVT prophylaxis. Continued on prednisone. Objective - Vital Signs Vital signs: Vital Signs Temp 97.6 F 11/06/24 23:19 Pulse 69 11/07/24 12:00 Resp 18 11/07/24 12:00 BP 113/64 11/07/24 12:00 Pulse Ox 97 11/07/24 12:00 FiO2 Intake & Output 11/06/24 11/07/24 11/07/24 18:59 06:59 18:59 Intake Total 240 540 Output Total 802 301 Balance -562 239 Weight 110.2 kg 107 kg Intake: Oral 240 540 Output: Chest Tube Drainage 800 300 Pleural Catheter 800 300 Stool 2 1 - Exam GENERAL EXAM: Alert, pleasant 49-year-old female, resting in bed, on room air, comfortable in no apparent distress. HEAD: Normocephalic. EYES: Normal reaction of pupils, equal size. NOSE: Clear with pink turbinates. THROAT: Edentulous. No erythema or exudates. NECK: No masses, no JVD. CHEST: No chest wall deformity. Left-sided Pleurx catheter secured in place. LUNGS: Equal air entry with crackles in the left lung base, diminished. CVS: S1 and S2 normal with no audible murmur, regular rhythm. ABDOMEN: No hepatosplenomegaly, normal bowel sounds, no guarding or rigidity. SPINE: No scoliosis or deformity SKIN: No rashes CENTRAL NERVOUS SYSTEM: No focal deficits, tone is normal in all 4 extremities. EXTREMITIES: There is 1+ peripheral edema. No clubbing, no cyanosis. Peripheral pulses are intact. - Labs CBC & Chem 7: 11/05/24 03:07 11/07/24 07:49 Labs: Abnormal Lab Results - Last 24 Hours (Table) 11/07/24 Range/Units 07:49 Potassium 3.4 L (3.5-5.1) mmol/L Glucose 103 H (74-99) mg/dL Assessment and Plan Assessment: Pericardial effusion being addressed by cardiology and cardiothoracic surgery, no plans for any surgical intervention Chronic recurrent left pleural effusion requiring Pleurx catheter and getting drained almost on every other day basis Suspect syncopal event Bradycardia, resolved Hypotension requiring norepinephrine and midodrine was added improved Acute kidney injury, resolved Microcytic, hypochromic anemia, hemoglobin stable at 8.8 g/dL, patient denies any blood loss Coronary artery disease with previous PCI/stenting and subsequent CABG x 3 normed on August 09, 2024, followed by a prolonged and complicated hospital course. Left-sided/recurrent pleural effusion requiring multiple thoracentesis, and did undergo left thoracoscopy, talc pleurodesis, and placement of a left Pleurx catheter on 09/29/2024. History of hypertension History of hyperlipidemia History of diabetes mellitus History of bilateral carotid artery stenosis, with a greater than 70% stenosis of the left carotid bifurcation and less than 50% stenosis to the right carotid bifurcation History of breast abscess History of liver disease History of alcohol abuse Bipolar disorder/anxiety Chronic marijuana use Obesity, with a BMI of 37.7 kg/m Plan: The patient was seen and evaluated Chest x-ray, labs and medications reviewed Pleurx catheter remains in place Drained 300 mL of fluid today Drained 800 mL of fluid yesterday Stable and on room air Remains on IV diuretics Continued on steroids Heparin for DVT prophylaxis Home once cleared by cardiology This patient was seen independently by the pulmonary nurse practitioner cintia dumont pulmonary issues I have personally seen and examined the patient, performed the documentation and the assessment and plan as written. Number of minutes spent on the visit: 23 Dictation was produced using appweevr dictation software. Please excuse any grammatical, word or spelling errors.
--- NOTE | 2024-11-07 12:41 | P.PN ---
Subjective Progress Note Date: 11/07/24 This is a 49-year-old female with past medical history of CAD status post CABG, status post recurrent pleural effusions and pericardial effusions. She was transferred from another facility for possible tamponade but was not in tamponade but underwent pleural EVAC catheter. She has a moderate pericardial effusion without any tamponade and has been hypotensive. She was improved on midodrine and Levophed was discontinued. Patient has been transferred out of the intensive care unit and seen today on the cardiac stepdown unit. Blood pressure 103/58, heart rate 73, pulse ox 100% on room air. Repeat blood work reveals hemoglobin 8.6, platelet count 147. Sodium 133, potassium 4.4, CO2 18, BUN 11 creatinine 0.9. Repeat chest x-ray reveals moderate left pleural effusion which is increased. No change in left chest tube. No pneumothorax. 11/06/24 Patient seen and examined. Patient states that she is feeling much better and lower extremity edema is much better, breathing is improved. She has been started on Lasix 20 mg IV yesterday. CTS has started the patient back on her Aldactone 100 mg twice daily. Blood pressure 113/64, heart rate in the 60s and 70s, pulse ox 97% on room air. Repeat blood work reveals sodium 138, potassium 3.4, creatinine 0.95. Repeat chest x-ray revealed marked reduction in left pleural effusion. A tiny left peripheral effusion persist. Physical examination: Gen: This is a 49-year-old female in no acute distress VS: reviewed LUNGS: Diminished breath sounds bilaterally. No intercostal retractions. HEART: Regular rate and rhythm. Systolic murmur at the left lower sternal border. ABDOMEN: Soft No tenderness. EXTREMITIES: Bilateral lower extremity edema. No calf tenderness. NEUROLOGICAL: Patient is awake, alert and oriented x3. Assessment: Hypotension Recurrent pleural effusions status post Pleurx catheter Pericardial effusion status post pericardial window 10/04 Coronary artery disease status post CABG in August 2024 Acute kidney injury Diabetes mellitus type 2 Plan: Continue patient on midodrine 10 mg 3 times daily and Florinef 0.1 mg daily Continue aspirin, statin, beta-lopez Continue patient on IV Lasix 20 mg daily Patient has been resumed on Aldactone 100 mg twice daily per CTS Monitor RICARDO, daily weights, electrolytes and renal function Further recommendations to follow based upon clinical course Nurse practitioner note has been reviewed, I agree with documented findings and plan of care. Patient was seen and examined. Objective - Vital Signs Vital signs: Vital Signs Temp 97.6 F 11/06/24 23:19 Pulse 76 11/07/24 07:54 Resp 18 11/07/24 07:54 BP 118/76 11/07/24 07:54 Pulse Ox 100 11/07/24 07:54 FiO2 Intake & Output 11/06/24 11/07/24 11/07/24 18:59 06:59 18:59 Intake Total 240 540 Output Total 802 1 Balance -562 539 Weight 110.2 kg 107 kg Intake: Oral 240 540 Output: Chest Tube Drainage 800 Pleural Catheter 800 Stool 2 1 - Labs CBC & Chem 7: 11/05/24 03:07 11/07/24 07:49
[2024-11-07] MEDS: SPIRONOLACTONE 25 MG TAB PO SCH (15:45)
--- NOTE | 2024-11-07 21:49 | PN ---
PROGRESS NOTE CHIEF COMPLAINT: Congestive heart failure, coronary artery disease, pericardial effusion, left pleural effusion. HISTORY OF PRESENT ILLNESS: This lady is doing fairly well. She is still short of breath. Blood pressures are improved with added oral pressures. PHYSICAL EXAMINATION: CHEST: Breath sounds are clear on the right. They are diminished on the left. CARDIAC: Reveals her murmur. ABDOMEN: Soft, nontender. IMPRESSION: 1. Coronary artery disease with congestive heart failure, chronic. 2. Pericardial effusion, status post pericardial window. 3. Left pleural effusion. 4. Hypotension. PLAN: Progress activity and it sounds as though she may be able to go home tomorrow. MMODL / IJN: [id number] /
--- NOTE | 2024-11-08 08:25 | P.PN ---
Subjective Progress Note Date: 11/08/24 Principal diagnosis: Abdominal pain, nausea, vomiting, pericardial effusion, left-sided pleural effusion, syncopal episode, acute kidney injury, thrombocytopenia, hyponatremia, chronic anemia, lactic acidosis A-fib with RVR followed by bradycardia, hypotension. History of coronary artery disease with previous PCI and off-pump CABG x 3 on August 09, 2024, left-sided pleural effusion (exudative in nature) status post thoracentesis x 4 with subsequent left-sided VATS with talc pleurodesis and placement of left-sided Pleurx catheter 09/29/2024, right-sided pleural effusion status post thoracentesis x 1, large pericardial effusion with Raymundo syndrome status post subxiphoid pericardial window 10/04/2024, pneumopericardium, multiple admissions for abdominal pain, nausea, vomiting, left internal carotid artery stenosis, diabetes mellitus, hypertension, EtOH abuse, cirrhosis of the liver, multiple breast abscesses treated with antibiotics, bipolar disorder/anxiety, previous tobacco dependence, marijuana use, osteoarthritis The patient was seen and examined sitting up in bed on the cardiac stepdown unit in no acute distress, present. She remains in sinus rhythm, blood pressure stable. Continues to tolerate oral diet. Remains on room air with oxygen saturation in the high 90s, able to achieve 1500 mL on her incentive spirometry. She has been ambulatory without difficulty. She does complain of some chest discomfort likely related to CPR. Pleurx catheter drained yesterday for 300 mL of fluid. Remains on oral prednisone, IV Lasix and Florinef, spi ronolactone re-added yesterday. Objective - Vital Signs Vital signs: Vital Signs Temp 98.3 F 11/07/24 20:00 Pulse 63 11/08/24 07:59 Resp 18 11/08/24 07:59 BP 104/67 11/08/24 07:59 Pulse Ox 97 11/08/24 07:59 FiO2 Intake & Output 11/07/24 11/08/24 11/08/24 18:59 06:59 18:59 Intake Total 780 Output Total 302 1 Balance 478 -1 Weight 106 kg Intake: Oral 780 Output: Chest Tube Drainage 300 Pleural Catheter 300 Stool 2 1 - Exam CONSTITUTIONAL: Appears comfortable, cooperative, no acute distress RESPIRATORY: Lungs sounds diminished bilaterally. Respirations even, nonlabored. Currently on room air with oxygen saturation 99%. Able to achieve 1500 mL on incentive spirometry. Strong cough. Left Pleurx catheter present under dry intact dressing. CARDIOVASCULAR: S1, S2 present. Regular rate and rhythm, sinus rhythm on telemetry. Sternum stable. Palpable peripheral pulses bilaterally. Bilateral lower extremity edema present. No calf pain or tenderness noted GASTROINTESTINAL: Abdomen soft, nontender, nondistended. Active bowel sounds present 4 quadrants. Tolerating diet. Positive bowel movement 11/08 per patient, not documented in [employer] GENITOURINARY: Continues to void, not being measured INTEGUMENTARY: Skin is warm and dry. Anterior sternal chest incision well- healed. Pericardial window site clean, no drainage, granulation tissue present NEUROLOGIC: Cranial nerves II through XII intact MUSKULOSKELETAL: Able to move all extremities, strength equal bilaterally, gait normal PSYCHIATRIC: Alert and oriented to person place and time, appropriate affect, intact judgment and insight - Allied health notes Allied health notes reviewed: nursing - Labs CBC & Chem 7: 11/05/24 03:07 11/07/24 07:49 Labs: Abnormal Lab Results - Last 24 Hours (Table) 11/07/24 Range/Units 07:49 Potassium 3.4 L (3.5-5.1) mmol/L Glucose 103 H (74-99) mg/dL - Imaging and Cardiology Chest x-ray: image reviewed Assessment and Plan Assessment: Abdominal pain, nausea, vomiting this admission Pericardial effusion Left-sided pleural effusion Pleurx drained 900 mL on 11/02, 350 mL on 11/03, 200 mL on 11/04, 800 mL 11/06, 300 on 11/07 Syncopal episode with questionable cardiac arrest, CPR Acute kidney injury, resolved Thrombocytopenia, hyponatremia, chronic anemia Lactic acidosis at [facility], resolved A-fib with RVR followed by bradycardia at [facility], currently sinus Hypotension, off IV Levophed, currently on midodrine and Florinef History of coronary artery disease with previous PCI and off-pump CABG x 3 on August 09, 2024 Left-sided pleural effusion (exudative in nature) status post thoracentesis x 4 with subsequent left-sided VATS with talc pleurodesis and placement of left- sided Pleurx catheter 09/29/2024 Right-sided pleural effusion status post thoracentesis x 1 Large pericardial effusion with Raymundo syndrome status post subxiphoid perica rdial window 10/04/2024 Pneumopericardium Multiple admissions for abdominal pain, nausea, vomiting Left internal carotid artery stenosis, greater than 70% Diabetes mellitus Hypertension EtOH abuse Cirrhosis of the liver Multiple breast abscesses treated with antibiotics Bipolar disorder/anxiety Previous tobacco dependence Marijuana use Osteoarthritis Plan: Continue to drain Pleurx catheter as needed Continue prednisone daily with prolonged course to reduce inflammatory process, patient has tolerated well before, continue spironolactone Continue to maximize medical management with aspirin, statin and beta-lopez Continue midodrine, Florinef Encourage use of incentive spirometry 10 times every hour while awake Will continue to monitor daily labs and x-rays Increase activity, ambulate as tolerated GI/DVT prophylaxis Pain control per current medication regimen. Recommend discontinuing IV Dilaudid. Patient/ requesting [place] to be prescribed at discharge Fluid/diuretic management per cardiology/nephrology, IV Lasix daily per cardiology Medical management of other comorbidities per internal medicine, intensive care service and cardiology Patient stable for discharge to home from cardiothoracic surgery standpoint when okay with other services More recommendations to follow based on patient's clinical course
--- NOTE | 2024-11-08 11:29 | XR ---
EXAMINATION TYPE: XR chest 2V DATE OF EXAM: 11/08/2024 6:18 AM COMPARISON: 11/07/2024 CLINICAL INDICATION: Female, 49 years old with history of Pleural effusion, TECHNIQUE: XR chest 2V view(s) obtained. FINDINGS: The heart size is enlarged. The pulmonary vasculature is normal. Mild left lower lobe infiltrate is present silhouetting the left diaphragm. Left side chest tube is p resent. No pneumothorax is evident. IMPRESSION: 1. Mild left lower lobe infiltrate. Correlate for atelectasis or pneumonia developing. [facility], , 11/08/2024 11:26 AM
--- NOTE | 2024-11-08 16:39 | P.PN ---
Subjective Progress Note Date: 11/08/24 Principal diagnosis: Cardiac tamponade. Patient is a 49-year-old female with complicated past medical history significant for coronary artery disease with previous PCI/stenting and subsequent CABG x 3, recurrent left-sided pleural effusion with frequent thoracentesis status post left-sided VATS with talc pleurodesis and left sided Pleurx catheter placement, right-sided pleural effusion, diabetes mellitus, hypertension, carotid artery stenosis, alcohol abuse, liver disease, breast abscess, bipolar disorder/anxiety, previous tobacco dependence, chronic marijuana use. Note that back on August 09, 2024 patient underwent off-pump CABG x 3 at our facility. She had a prolonged and complicated hospitalization. Following the procedure, she developed persistent left-sided/recurrent pleural effusion requiring multiple thoracentesis, and did undergo left thoracoscopy, talc pleurodesis, and placement of a left Pleurx catheter on 09/29/2024. She also developed a rather large pericardial effusion, requiring subxiphoid pericardial window done 10/04/2024. She was finally discharged home from this facility 10/14/2024. While at home, the patient started having recurrent nausea and vomiting, was unable to tolerate food or drink, and was admitted at our facility 10/19/2024 through 10/23/2024 with colitis. [facility]. Reportedly, found to have acute kidney injury and was admitted. Previously taking Toradol on an outpatient basis. While at outside facility, she was in the bathroom and became lightheaded. She does not recall other events while in the bathroom. Patient reportedly had a syncopal event and had brief CPR. I do not believe the patient ever lost a pulse. She did respond and did not require any intubation. Following the event, patient was reportedly found to be in A-fib RVR and then later was bradycardic. She was started on dopamine, and transferred to our facility. I believe the concern was for enlarging pericardial effusion. Follow-up chest CT at our facility showing resolution of gas within the pericardium seen on prior CTs, persistent small to moderate-sized pericardial effusion without tamponade features. Moderate to large left-sided pleural effusion. Patient does have Pleurx catheter in the pleural space. No obvious traumatic rib fractures or pneumothoraces. Patient is currently being evaluated in the intensive care unit. She is alert and oriented. No focal neurological deficits. No history of seizures, CVA/TIA, or prior syncopal events . Resting comfortably on 2 L/min nasal cannula. SpO2 is reading 100%. Patient states that she continues to drain her Pleurx catheter every 2 to 3 days. Gets anywhere from 50 to 200 cc of serous output when draining. She has not drained the catheter in a few days. She continues on dopamine which is infusing at 10 mcg/kg/min. Heart rate is actually tachycardic. This is sinus tachycardia, 106 bpm on bedside monitor. Blood pressure remains borderline 95/59 mmHg. She reports a mild amount of reproducible right-sided chest pain with deep breathing, coughing, or palpation. While in bed, denies any lightheadedness, heart palpitations, radiating chest pain, orthopnea. She does report some increased lower extremity swelling, bilaterally. No further episodes of vomiting. Intermittent nausea, however, is tolerating oral intake at this time. Denies any diarrhea, hematochezia, melena, hematemesis. She does report epigastric abdominal pain, which has been persistent over the last 2-1/2 months. Did have an EGD done August 31, 2024, which was fairly unremarkable in the report. She has been previously treated for colitis. CBC: WBC count 10.8, hemoglobin 8.8, hematocrit 28.7, platelets 133. CMP: Sodium 132, potassium 4.6, chloride 107, serum bicarb 17, BUN 26, creatinine 1.2, glucose 191. Magnesium 2. LFTs unremarkable. Normal saline infusing at 50 mL/h. Patient was evaluated today 11/03/2024, remains in the ICU, on 2 L nasal cannula, still requiring norepinephrine at 0.03 mcg/kg/min, patient was seen by cardiothoracic surgery and did not feel a need to have pericardial window or pericardiocentesis. She does have a moderate size loculated pericardial effusion, no plans to drain at this point. Patient remains a bit on the hypotensive side, requiring norepinephrine and midodrine was added today. Her left-sided pleural effusion has been drained patient does have a left Pleurx catheter in place. WBC is 4.7 hemoglobin 7.7 electrolytes are normal renal profile is normal Seen today on 11/04/2024, patient remains in the ICU mostly because she is still requiring norepinephrine at 0.05 mcg/kg/min to maintain adequate blood pressure. Her midodrine dose has been increased, patient cam is doing well, asymptomatic on room air, denies any shortness of breath no cough no wheezing no chest pain. Continues to have Pleurx catheter in place, thoracic surgery is not planning any intervention on her pericardial effusion. Evaluated today on 11/05/2024, patient is about the same, however she is off norepinephrine today, blood pressure is marginal. Denies any specific complaints, no cough no wheezing no shortness of breath no chest pain.WBC count is 8.3 hemoglobin 8.6 electrolytes are normal renal profile is normal The patient is seen today November 06, 2024 in follow-up on the selective care unit. She is currently sitting up in a chair at the bedside. Awake and alert in no acute distress. Denies any worsening shortness of breath, cough or congestion. She is maintaining good O2 saturations in the 90s on room air. She has been afebrile. Hemodynamically stable. White count 8.3. Hemoglobin 8.6. Platelets 147. Sodium 133. Potassium 4.4. Bicarb 18. BUN 11. Creatinine 0.9. She remains on IV diuretics. Heparin for DVT prophylaxis. Continued on prednisone taper. Chest x-ray reveals moderate left pleural effusion. No pneumothorax. Left-sided Pleurx catheter remains in place. Being managed by CT service. The patient is seen today November 07, 2024 in follow-up on the selective care unit. She is currently sitting up in bed. Awake and alert in no acute distress. Maintaining good O2 saturations in the 90s on room air. Chest x-ray shows marked reduction in the left pleural effusion. Tiny left pleural effusion persists. Pleurx catheter remains in place. She drained 300 mL of fluid today and 800 mL of fluid yesterday. Sodium 138. Potassium 3.4. Bicarb 27. BUN 13. Creatinine 0.95. Glucose 103. She remains on IV and oral diuretics. Heparin for DVT prophylaxis. Continued on prednisone. Progress note dated November 08, 2024. The patient is seen today in room 362. This is a patient who was admitted with a diagnosis of potential cardiac tamponade. The patient also has a history on chest x-ray left pleural effusion. She is currently sitting up in bed in no distress. The patient is currently on room air. She is not receiving any IV fluids. On auscultation, her lungs are clear to auscultation. She is in normal sinus rhythm. No current labs today. X-ray shows a mild left lower lobe infiltrate or atelectasis. Objective - Vital Signs Vital signs: Vital Signs Temp 98.2 F 11/08/24 15:34 Pulse 71 11/08/24 15:34 Resp 18 11/08/24 15:34 BP 109/67 11/08/24 15:34 Pulse Ox 99 11/08/24 15:34 FiO2 Intake & Output 11/07/24 11/08/24 11/08/24 18:59 06:59 18:59 Intake Total 780 240 Output Total 302 2 Balance 478 238 Weight 106 kg 106 kg Intake: Oral 780 240 Output: Chest Tube Drainage 300 Pleural Catheter 300 Stool 2 2 - Exam No acute distress, oriented 3. Currently on room air. HEENT examination is grossly unremarkable. Mucous membranes are moist. No oral lesions. Neck supple. Full range of motion. No adenopathy thyromegaly or neck vein distention. Cardiovascular examination reveals regular rhythm rate. S1-S2 normal. No S3 or S4. No discernible murmur noted. Lungs reveal basilar crackles. No wheezes or rhonchi. Abdomen soft bowel sounds are heard. No masses or tenderness. Extremities are intact. Cyanosis or clubbing. Mild lower extremity edema. Skin is without rash or lesion. Neurologic examination is brief but nonfocal. - Labs CBC & Chem 7: 11/05/24 03:07 11/07/24 07:49 Assessment and Plan Assessment: Pericardial effusion being addressed by cardiology and cardiothoracic surgery. Chronic recurrent left pleural effusion requiring Pleurx catheter. Suspect syncopal event. Bradycardia, resolved. Hypotension requiring norepinephrine and midodrine, resolved. Acute kidney injury, resolved. Microcytic, hypochromic anemia. Coronary artery disease with previous PCI/stenting and subsequent CABG x 3 normed on August 09, 2024, followed by a prolonged and complicated hospital course. Left-sided/recurrent pleural effusion requiring multiple thoracentesis, and did undergo left thoracoscopy, talc pleurodesis, and placement of a left Pleurx catheter on 09/29/2024. History of hypertension. History of hyperlipidemia. History of diabetes mellitus. History of bilateral carotid artery stenosis, with a greater than 70% stenosis of the left carotid bifurcation and less than 50% stenosis to the right carotid bifurcation. History of breast abscess. History of liver disease. History of alcohol abuse. Bipolar disorder/anxiety. Chronic marijuana use. Obesity, with a BMI of 37.7 kg/m. Plan: Plan dated November 08, 2024. The patient is seen today in room 362. The patient is stable, and not requiring any supplemental oxygen, or IV fluids. On auscultation, her lungs are relatively clear. Minimal basilar crackles. She is in normal sinus rhythm. Labs, x-rays, and all medications are reviewed. We will continue to follow the patient, make recommendations along the way. Her Pleurx catheter remains in place. She continues on IV diuretics, and steroids. We will continue to follow and make recommendations. Prognosis is guarded. Time with Patient: Less than 30
--- NOTE | 2024-11-08 17:57 | P.PN ---
Subjective Patient is seen for follow-up for acute kidney injury. Renal function has improved. Serum creatinine staying at about 0.9 mg/dL. Patient was complaining of increased leg swelling. She denies any shortness of breath. Florinef noted on med list. Blood pressure remains on the lower side. Objective - Vital Signs Vital signs: Vital Signs Temp 98.2 F 11/08/24 15:34 Pulse 71 11/08/24 15:34 Resp 18 11/08/24 15:34 BP 109/67 11/08/24 15:34 Pulse Ox 99 11/08/24 15:34 FiO2 Intake & Output 11/07/24 11/08/24 11/08/24 18:59 06:59 18:59 Intake Total 780 240 Output Total 302 2 Balance 478 238 Weight 106 kg 106 kg Intake: Oral 780 240 Output: Chest Tube Drainage 300 Pleural Catheter 300 Stool 2 2 - Exam Patient is awake, comfortable, no acute distress. Examination of the heart S1 and S2 Examination of the lungs bilateral breath sounds are heard Abdomen is soft nontender Examination of lower extremities shows edema 2+ bilaterally [employer] exam grossly intact - Labs CBC & Chem 7: 11/05/24 03:07 11/07/24 07:49 Assessment and Plan Assessment: 1. Acute kidney injury secondary to ATN secondary to hypotension and hypovolemia improved with IV hydration. Resolved. UA benign. CT scan from October 2024 showed no evidence of hydronephrosis. Bilateral nonobstructing stones were noted. Baseline creatinine near 1. 2. Pericardial effusion status post pericardial window October 04, 2024. 3. Pleural effusions requiring thoracentesis and also history of left-sided VATS. 4. Coronary disease status post CABG in August 2024. 5. Diabetes mellitus. 6. Anemia. Iron deficiency noted. 7. Metabolic acidosis secondary to IV fluids. On oral bicarb. 8. Volume overload. Patient is maintained on Florinef which will be discontinued. Plan: Continue with IV Lasix DC Florinef Given additional dose of IV Lasix today. Repeat labs in a.m. Continue with midodrine.
[2024-11-08] MEDS: FUROSEMIDE 10 MG/ML 2 ML VIAL IV ONE (18:40)
--- NOTE | 2024-11-08 19:07 | P.PN ---
Subjective Patient is resting comfortably in bed. Denies any chest discomfort or undue shortness of breath On examination blood pressure normal Heart sounds are normal regular Breath sounds are clear No lower extremity edema Impression Cardiac tamponade Status post drainage Plan From a cardiac standpoint patient may go home today Short-term treatment with Florinef and midodrine I informed the patient of this Follow-up with Dr. [place] Objective - Vital Signs Vital signs: Vital Signs Temp 98.3 F 11/07/24 20:00 Pulse 63 11/08/24 07:59 Resp 18 11/08/24 07:59 BP 104/67 11/08/24 07:59 Pulse Ox 97 11/08/24 07:59 FiO2 Intake & Output 11/07/24 11/08/24 11/08/24 18:59 06:59 18:59 Intake Total 780 120 Output Total 302 1 Balance 478 119 Weight 106 kg Intake: Oral 780 120 Output: Chest Tube Drainage 300 Pleural Catheter 300 Stool 2 1 - Labs CBC & Chem 7: 11/05/24 03:07 11/07/24 07:49 Labs: Abnormal Lab Results - Last 24 Hours (Table) 11/07/24 Range/Units 07:49 Potassium 3.4 L (3.5-5.1) mmol/L Glucose 103 H (74-99) mg/dL
[2024-11-09 06:55] LABS: Anisocytosis Moderate; HCT 28.6 % (34.0-46.0); HGB 8.7 gm/dL (11.4-16.0); Hypochromasia Marked; MCH 24.5 pg (25.0-35.0); MCHC 30.3 g/dL (31.0-37.0); Mean Platelet Volume 10.6; Microcytosis Slight; Platelet Count 103 k/uL (150-450); RBC 3.53 m/uL (3.80-5.40); RDW 21.8 % (11.5-15.5); WBC 6.9 k/uL (3.8-10.6)
[2024-11-09 06:56] LABS: Basophils % (A) 0 %; Eosinophils # (A) 0.1 k/uL (0-0.7); Eosinophils % (A) 1 %; Lymphocytes # (A) 1.1 k/uL (1.0-4.8); Lymphocytes % (A) 16 %; Monocytes # (A) 0.4 k/uL (0-1.0); Monocytes % (A) 6 %; Neutrophils # (A) 5.1 k/uL (1.3-7.7); Neutrophils % (A) 75 %; Poikilocytosis Slight
[2024-11-09 07:12] LABS: ALT 47 U/L (4-34); AST 57 U/L (14-36); African American GFR (CKD) >90 (>60 ml/min/1.73 sqM); Albumin 2.5 g/dL (3.5-5.0); Alkaline Phosphatase 166 U/L (38-126); Anion Gap 2 mmol/L; Blood Urea Nitrogen 18 mg/dL (7-17); Calcium 8.3 mg/dL (8.4-10.2); Carbon Dioxide 29 mmol/L (22-30); Chloride 106 mmol/L (98-107); Glucose 108 mg/dL (74-99); Non-African American GFR(CKD) 79 (>60 ml/min/1.73 sqM); Potassium 3.4 mmol/L (3.5-5.1); Sodium 137 mmol/L (137-145); Total Bilirubin 0.7 mg/dL (0.2-1.3); Total Protein 5.1 g/dL (6.3-8.2)
[2024-11-09] MEDS: POTASSIUM CHLORIDE ER 20 MEQ TAB.ER PO SCH (08:01)
--- NOTE | 2024-11-09 12:40 | P.PN ---
Subjective Progress Note Date: 11/09/24 Principal diagnosis: Cardiac tamponade. Patient is a 49-year-old female with complicated past medical history significant for coronary artery disease with previous PCI/stenting and subsequent CABG x 3, recurrent left-sided pleural effusion with frequent thoracentesis status post left-sided VATS with talc pleurodesis and left sided Pleurx catheter placement, right-sided pleural effusion, diabetes mellitus, hypertension, carotid artery stenosis, alcohol abuse, liver disease, breast abscess, bipolar disorder/anxiety, previous tobacco dependence, chronic marijuana use. Note that back on August 09, 2024 patient underwent off-pump CABG x 3 at our facility. She had a prolonged and complicated hospitalization. Following the procedure, she developed persistent left-sided/recurrent pleural effusion requiring multiple thoracentesis, and did undergo left thoracoscopy, talc pleurodesis, and placement of a left Pleurx catheter on 09/29/2024. She also developed a rather large pericardial effusion, requiring subxiphoid pericardial window done 10/04/2024. She was finally discharged home from this facility 10/14/2024. While at home, the patient started having recurrent nausea and vomiting, was unable to tolerate food or drink, and was admitted at our facility 10/19/2024 through 10/23/2024 with colitis. [facility] was [facility]. Reportedly, found to have acute kidney injury and was admitted. Previously taking Toradol on an outpatient basis. While at outside facility, she was in the bathroom and became lightheaded. She does not recall other events while in the bathroom. Patient reportedly had a syncopal event and had brief CPR. I do not believe the patient ever lost a pulse. She did respond and did not require any intubation. Following the event, patient was reportedly found to be in A-fib RVR and then later was bradycardic. She was started on dopamine, and transferred to our facility. I believe the concern was for enlarging pericardial effusion. Follow-up chest CT at our facility showing resolution of gas within the pericardium seen on prior CTs, persistent small to moderate-sized pericardial effusion without tamponade features. Moderate to large left-sided pleural effusion. Patient does have Pleurx catheter in the pleural space. No obvious traumatic rib fractures or pneumothoraces. Patient is currently being evaluated in the intensive care unit. She is alert and oriented. No focal neurological deficits. No history of seizures, CVA/TIA, or prior syncopal events . Resting comfortably on 2 L/min nasal cannula. SpO2 is reading 100%. Patient states that she continues to drain her Pleurx catheter every 2 to 3 days. Gets anywhere from 50 to 200 cc of serous output when draining. She has not drained the catheter in a few days. She continues on dopamine which is infusing at 10 mcg/kg/min. Heart rate is actually tachycardic. This is sinus tachycardia, 106 bpm on bedside monitor. Blood pressure remains borderline 95/59 mmHg. She reports a mild amount of reproducible right-sided chest pain with deep breathing, coughing, or palpation. While in bed, denies any lightheadedness, heart palpitations, radiating chest pain, orthopnea. She does report some increased lower extremity swelling, bilaterally. No further episodes of vomiting. Intermittent nausea, however, is tolerating oral intake at this time. Denies any diarrhea, hematochezia, melena, hematemesis. She does report epigastric abdominal pain, which has been persistent over the last 2-1/2 months. Did have an EGD done August 31, 2024, which was fairly unremarkable in the report. She has been previously treated for colitis. CBC: WBC count 10.8, hemoglobin 8.8, hematocrit 28.7, platelets 133. CMP: Sodium 132, potassium 4.6, chloride 107, serum bicarb 17, BUN 26, creatinine 1.2, glucose 191. Magnesium 2. LFTs unremarkable. Normal saline infusing at 50 mL/h. Patient was evaluated today 11/03/2024, remains in the ICU, on 2 L nasal cannula, still requiring norepinephrine at 0.03 mcg/kg/min, patient was seen by cardiothoracic surgery and did not feel a need to have pericardial window or pericardiocentesis. She does have a moderate size loculated pericardial effusion, no plans to drain at this point. Patient remains a bit on the hypotensive side, requiring norepinephrine and midodrine was added today. Her left-sided pleural effusion has been drained patient does have a left Pleurx catheter in place. WBC is 4.7 hemoglobin 7.7 electrolytes are normal renal profile is normal Seen today on 11/04/2024, patient remains in the ICU mostly because she is still requiring norepinephrine at 0.05 mcg/kg/min to maintain adequate blood pressure. Her midodrine dose has been increased, patient cam is doing well, asymptomatic on room air, denies any shortness of breath no cough no wheezing no chest pain. Continues to have Pleurx catheter in place, thoracic surgery is not planning any intervention on her pericardial effusion. Evaluated today on 11/05/2024, patient is about the same, however she is off norepinephrine today, blood pressure is marginal. Denies any specific complaints, no cough no wheezing no shortness of breath no chest pain.WBC count is 8.3 hemoglobin 8.6 electrolytes are normal renal profile is normal The patient is seen today November 06, 2024 in follow-up on the selective care unit. She is currently sitting up in a chair at the bedside. Awake and alert in no acute distress. Denies any worsening shortness of breath, cough or congestion. She is maintaining good O2 saturations in the 90s on room air. She has been afebrile. Hemodynamically stable. White count 8.3. Hemoglobin 8.6. Platelets 147. Sodium 133. Potassium 4.4. Bicarb 18. BUN 11. Creatinine 0.9. She remains on IV diuretics. Heparin for DVT prophylaxis. Continued on prednisone taper. Chest x-ray reveals moderate left pleural effusion. No pneumothorax. Left-sided Pleurx catheter remains in place. Being managed by CT service. The patient is seen today November 07, 2024 in follow-up on the selective care unit. She is currently sitting up in bed. Awake and alert in no acute distress. Maintaining good O2 saturations in the 90s on room air. Chest x-ray shows marked reduction in the left pleural effusion. Tiny left pleural effusion persists. Pleurx catheter remains in place. She drained 300 mL of fluid today and 800 mL of fluid yesterday. Sodium 138. Potassium 3.4. Bicarb 27. BUN 13. Creatinine 0.95. Glucose 103. She remains on IV and oral diuretics. Heparin for DVT prophylaxis. Continued on prednisone. Progress note dated November 08, 2024. The patient is seen today in room 362. This is a patient who was admitted with a diagnosis of potential cardiac tamponade. The patient also has a history on chest x-ray left pleural effusion. She is currently sitting up in bed in no distress. The patient is currently on room air. She is not receiving any IV fluids. On auscultation, her lungs are clear to auscultation. She is in normal sinus rhythm. No current labs today. X-ray shows a mild left lower lobe infiltrate or atelectasis. Progress note dated November 09, 2024. 49-year-old female who is seen today in room 362. The patient currently is on room air. No IV fluids. The patient was to be discharged but apparently the d ischarge was held up because of her renal function, as well as her lower extremity edema. The patient is not having any respiratory distress or difficulty. Currently, white count 6.9, hemoglobin 8.7, hematocrit 28.6, platelet count 103,000. Sodium 137, potassium 3.4, chlorides 106, CO2 29, BUN 18, creatinine 0.87. Glucose is 108. Calcium 8.3. AST is 57. ALT is 47. Albumin is 2.5. Chest x-ray from yesterday shows a very mild left lower lobe infiltrate. Objective - Vital Signs Vital signs: Vital Signs Temp 97.9 F 11/09/24 07:54 Pulse 62 11/09/24 11:56 Resp 20 11/09/24 11:22 BP 101/63 11/09/24 11:22 Pulse Ox 99 11/09/24 11:22 FiO2 Intake & Output 11/08/24 11/09/24 11/09/24 18:59 06:59 18:59 Intake Total 240 40 0 Output Total 2 300 425 Balance 238 -260 -425 Weight 106 kg 105.6 kg Intake: Oral 240 40 0 Output: Urine 300 425 Stool 2 Other: Voiding Method Toilet - Exam No acute distress, oriented 3. Currently on room air. HEENT examination is grossly unremarkable. Mucous membranes are moist. No oral lesions. Neck supple. Full range of motion. No adenopathy thyromegaly or neck vein distention. Cardiovascular examination reveals regular rhythm rate. S1-S2 normal. No S3 or S4. No discernible murmur noted. Lungs reveal basilar crackles. No wheezes or rhonchi. Abdomen soft bowel sounds are heard. No masses or tenderness. Extremities are intact. Cyanosis or clubbing. Worsening lower extremity edema. Skin is without rash or lesion. Neurologic examination is brief but nonfocal. - Labs CBC & Chem 7: 11/09/24 06:17 11/09/24 06:17 Labs: Abnormal Lab Results - Last 24 Hours (Table) 11/09/24 11/09/24 Range/Units 06:17 06:17 RBC 3.53 L (3.80-5.40) m/uL Hgb 8.7 L (11.4-16.0) gm/dL Hct 28.6 L (34.0-46.0) % MCH 24.5 L (25.0-35.0) pg MCHC 30.3 L (31.0-37.0) g/dL RDW 21.8 H (11.5-15.5) % Plt Count 103 L (150-450) k/uL Potassium 3.4 L (3.5-5.1) mmol/L BUN 18 H (7-17) mg/dL Glucose 108 H (74-99) mg/dL Calcium 8.3 L (8.4-10.2) mg/dL AST 57 H (14-36) U/L ALT 47 H (4-34) U/L Alkaline Phosphatase 166 H (38-126) U/L Total Protein 5.1 L (6.3-8.2) g/dL Albumin 2.5 L (3.5-5.0) g/dL Assessment and Plan Assessment: Pericardial effusion being addressed by cardiology and cardiothoracic surgery. Chronic recurrent left pleural effusion requiring Pleurx catheter. Suspect syncopal event. Bradycardia, resolved. Hypotension requiring norepinephrine and midodrine, resolved. Acute kidney injury, resolved. Microcytic, hypochromic anemia. Coronary artery disease with previous PCI/stenting and subsequent CABG x 3 normed on August 09, 2024, followed by a prolonged and complicated hospital course. Left-sided/recurrent pleural effusion requiring multiple thoracentesis, and did undergo left thoracoscopy, talc pleurodesis, and placement of a left Pleurx catheter on 09/29/2024. History of hypertension. History of hyperlipidemia. History of diabetes mellitus. History of bilateral carotid artery stenosis, with a greater than 70% stenosis of the left carotid bifurcation and less than 50% stenosis to the right carotid bifurcation. History of breast abscess. History of liver disease. History of alcohol abuse. Bipolar disorder/anxiety. Chronic marijuana use. Obesity, with a BMI of 37.7 kg/m. Plan: Plan dated November 08, 2024. The patient is seen today in room 362. The patient is stable, and not requiring any supplemental oxygen, or IV fluids. On auscultation, her lungs are relatively clear. Minimal basilar crackles. She is in normal sinus rhythm. Labs, x-rays, and all medications are reviewed. We will continue to follow the patient, make recommendations along the way. Her Pleurx catheter remains in place. She continues on IV diuretics, and steroids. We will continue to follow and make recommendations. Prognosis is guarded. Plan dated November 09, 2024. The patient is seen today in room 362. The patient is currently on room air. No IV fluids. The patient complains of significant lower extremity swelling and edema. She states that when she walks on her feet, and feels like she has got [id number]. Labs, x-rays, and medications are reviewed. The patient is overall prognosis remains guarded. We will continue to follow the patient, make recommendations along the way. Prognosis is guarded. Time with Patient: Less than 30
--- NOTE | 2024-11-09 12:40 | P.PN ---
Subjective Patient is seen for follow-up for acute kidney injury. Renal function has improved. Serum creatinine at about 0.8 mg/dL. Patient has been complaining of increased lower extremity swelling. Florinef was discontinued yesterday. She received an extra dose of IV Lasix. No complaints of shortness of breath. Objective - Vital Signs Vital signs: Vital Signs Temp 97.9 F 11/09/24 07:54 Pulse 62 11/09/24 11:56 Resp 20 11/09/24 11:22 BP 101/63 11/09/24 11:22 Pulse Ox 99 11/09/24 11:22 FiO2 Intake & Output 11/08/24 11/09/24 11/09/24 18:59 06:59 18:59 Intake Total 240 40 0 Output Total 2 300 425 Balance 238 -260 -425 Weight 106 kg 105.6 kg Intake: Oral 240 40 0 Output: Urine 300 425 Stool 2 Other: Voiding Method Toilet - Exam Patient is awake, comfortable, no acute distress. Examination of the heart S1 and S2 Examination of the lungs bilateral breath sounds are heard Abdomen is soft nontender Examination of lower extremities shows edema 2+ bilaterally [employer] exam grossly intact - Labs CBC & Chem 7: 11/09/24 06:17 11/09/24 06:17 Labs: Abnormal Lab Results - Last 24 Hours (Table) 11/09/24 11/09/24 Range/Units 06:17 06:17 RBC 3.53 L (3.80-5.40) m/uL Hgb 8.7 L (11.4-16.0) gm/dL Hct 28.6 L (34.0-46.0) % MCH 24.5 L (25.0-35.0) pg MCHC 30.3 L (31.0-37.0) g/dL RDW 21.8 H (11.5-15.5) % Plt Count 103 L (150-450) k/uL Potassium 3.4 L (3.5-5.1) mmol/L BUN 18 H (7-17) mg/dL Glucose 108 H (74-99) mg/dL Calcium 8.3 L (8.4-10.2) mg/dL AST 57 H (14-36) U/L ALT 47 H (4-34) U/L Alkaline Phosphatase 166 H (38-126) U/L Total Protein 5.1 L (6.3-8.2) g/dL Albumin 2.5 L (3.5-5.0) g/dL Assessment and Plan Assessment: 1. Acute kidney injury secondary to ATN secondary to hypotension and hypovolemia improved with IV hydration. Resolved. UA benign. CT scan from October 2024 showed no evidence of hydronephrosis. Bilateral nonobstructing stones were noted. Baseline creatinine near 1. 2. Pericardial effusion status post pericardial window October 04, 2024. 3. Pleural effusions requiring thoracentesis and also history of left-sided VATS. 4. Coronary disease status post CABG in August 2024. 5. Diabetes mellitus. 6. Anemia. Iron deficiency noted. 7. Metabolic acidosis secondary to IV fluids. On oral bicarb. 8. Volume overload. Florinef has been discontinued. Maintained on IV Lasix. Plan: Continue with IV Lasix, increase dose Replace potassium continue off of Florinef Repeat labs in a.m. Continue with midodrine.
[2024-11-09] MEDS: FUROSEMIDE 10 MG/ML 4 ML VIAL IV STA (13:03)
--- NOTE | 2024-11-10 01:19 | PN ---
PROGRESS NOTE DATE OF SERVICE: 11/08/2024 CHIEF COMPLAINT: Congestive heart failure. HISTORY OF PRESENT ILLNESS: This lady is still having difficulty. She is getting progressively more lower extremity edema, which is probably related to her heart disease. She is not having any significant shortness of breath or pain at this time. PHYSICAL EXAMINATION: GENERAL: She remains pale. CHEST: Breath sounds are diminished, particularly on the left. CARDIAC: Unchanged. ABDOMEN: Soft, nontender. EXTREMITIES: She has about 4+ edema of the lower extremities. IMPRESSION: 1. Coronary artery disease. 2. Atherosclerotic cardiomyopathy. 3. Congestive heart failure, chronic. 4. Pericardial effusion, status post cardiac window. 5. Left pleural effusion. 6. Lower extremity edema. PLAN: Discharge will be withheld and diuretic management has been increased. MMODL / IJN: [id number] /
--- NOTE | 2024-11-10 01:44 | PN ---
PROGRESS NOTE DATE OF SERVICE: 11/09/2024 CHIEF COMPLAINT: Persistent congestive heart failure. HISTORY OF PRESENT ILLNESS: This lady's lower extremity edema is still increasing slightly. She denies chest pain. There is no other interval change. PHYSICAL EXAMINATION: GENERAL: She remains pale. VITAL SIGNS: Blood pressure is running around 110 with her new pressors. CHEST: Her breath sounds are diminished on the left. CARDIAC: Unremarkable. ABDOMEN: Soft. EXTREMITIES: She does have 3 to 4+ edema of the legs. IMPRESSION: 1. Chronic congestive heart failure. 2. Atherosclerotic cardiomyopathy. 3. Coronary artery disease. 4. Pericardial effusion, status post pericardial window. 5. Left pleural effusion. PLAN: Diuretic program has been increased and we will wait to see how her edema responds. MMODL / IJN: [id number] /
--- NOTE | 2024-11-10 07:48 | P.PN ---
Subjective Progress Note Date: 11/10/24 Principal diagnosis: Abdominal pain, nausea, vomiting, pericardial effusion, left-sided pleural effusion, syncopal episode, acute kidney injury, thrombocytopenia, hyponatremia, chronic anemia, lactic acidosis A-fib with RVR followed by bradycardia, hypotension. History of coronary artery disease with previous PCI and off-pump CABG x 3 on August 09, 2024, left-sided pleural effusion (exudative in nature) status post thoracentesis x 4 with subsequent left-sided VATS with talc pleurodesis and placement of left-sided Pleurx catheter 09/29/2024, right-sided pleural effusion status post thoracentesis x 1, large pericardial effusion with Raymundo syndrome status post subxiphoid pericardial window 10/04/2024, pneumopericardium, multiple admissions for abdominal pain, nausea, vomiting, left internal carotid artery stenosis, diabetes mellitus, hypertension, EtOH abuse, cirrhosis of the liver, multiple breast abscesses treated with antibiotics, bipolar disorder/anxiety, previous tobacco dependence, marijuana use, osteoarthritis The patient was seen and examined sitting up in bed on the cardiac stepdown unit in no acute distress, present. She remains in sinus rhythm, blood pressure stable. Continues to tolerate oral diet. Remains on room air with oxygen saturation in the high 90s, able to achieve 1500 mL on her incentive spirometry. She has been ambulatory without difficulty. She does complain of some chest discomfort likely related to CPR, continues to take IV Dilaudid as well as oral Felt. Pleurx catheter drained yesterday for 775 mL of fluid. R emains on oral prednisone, IV Lasix, spironolactone, IV Lasix increased due to lower extremity edema. Objective - Vital Signs Vital signs: Vital Signs Temp 98.4 F 11/09/24 19:51 Pulse 63 11/10/24 04:20 Resp 18 11/10/24 04:20 BP 95/60 11/10/24 04:20 Pulse Ox 98 11/10/24 04:20 FiO2 Intake & Output 11/09/24 11/10/24 11/10/24 18:59 06:59 18:59 Intake Total 0 Output Total 2275 300 Balance -2275 -300 Weight 103.6 kg Intake: Oral 0 Output: Drainage 775 Left Chest 775 Urine 1500 300 Other: Voiding Method Toilet Toilet - Exam CONSTITUTIONAL: Appears comfortable, cooperative, no acute distress RESPIRATORY: Lungs sounds diminished bilaterally. Respirations even, nonlabored. Currently on room air with oxygen saturation 98%. Able to achieve 1500 mL on incentive spirometry. Strong cough. Left Pleurx catheter present under dry intact dressing. CARDIOVASCULAR: S1, S2 present. Regular rate and rhythm, sinus rhythm on telemetry. Sternum stable. Palpable peripheral pulses bilaterally. Bilateral lower extremity edema present. No calf pain or tenderness noted GASTROINTESTINAL: Abdomen soft, nontender, nondistended. Active bowel sounds present 4 quadrants. Tolerating diet. Positive bowel movement 11/09 GENITOURINARY: Continues to void INTEGUMENTARY: Skin is warm and dry. Anterior sternal chest incision well- healed. Pericardial window site clean, no drainage, granulation tissue present NEUROLOGIC: Cranial nerves II through XII intact MUSKULOSKELETAL: Able to move all extremities, strength equal bilaterally, gait normal PSYCHIATRIC: Alert and oriented to person place and time, appropriate affect, intact judgment and insight - Allied health notes Allied health notes reviewed: nursing - Labs CBC & Chem 7: 11/09/24 06:17 11/09/24 06:17 Assessment and Plan Assessment: Abdominal pain, nausea, vomiting this admission Pericardial effusion Left-sided pleural effusion Pleurx drained 900 mL on 11/02, 350 mL on 11/03, 200 mL on 11/04, 800 mL 11/06, 300 mL on 11/07, 775 mL on 11/09 Syncopal episode with questionable cardiac arrest, CPR Acute kidney injury, resolved Thrombocytopenia, hyponatremia, chronic anemia Lactic acidosis at [facility], resolved A-fib with RVR followed by bradycardia at [facility], currently sinus Hypotension, off IV Levophed, currently on midodrine and Florinef History of coronary artery disease with previous PCI and off-pump CABG x 3 on August 09, 2024 Left-sided pleural effusion (exudative in nature) status post thoracentesis x 4 with subsequent left-sided VATS with talc pleurodesis and placement of left- sided Pleurx catheter 09/29/2024 Right-sided pleural effusion status post thoracentesis x 1 Large pericardial effusion with Raymundo syndrome status post subxiphoid pericardial window 10/04/2024 Pneumopericardium Multiple admissions for abdominal pain, nausea, vomiting Left internal carotid artery stenosis, greater than 70% Diabetes mellitus Hypertension EtOH abuse Cirrhosis of the liver Multiple breast abscesses treated with antibiotics Bipolar disorder/anxiety Previous tobacco dependence Marijuana use Osteoarthritis Plan: Continue to drain Pleurx catheter as needed Continue prednisone daily with prolonged course to reduce inflammatory process, patient has tolerated well before, continue spironolactone Continue to maximize medical management with aspirin, statin and beta-lopez Continue midodrine Encourage use of incentive spirometry 10 times every hour while awake Will continue to monitor daily labs and x-rays Increase activity, ambulate as tolerated GI/DVT prophylaxis Pain control per current medication regimen. Recommend discontinuing IV Dilaudid. Patient/ requesting Felt to be prescribed at discharge Fluid/diuretic management per cardiology/nephrology, IV Lasix daily per cardiology Medical management of other comorbidities per internal medicine, intensive care service and cardiology Patient stable for discharge to home from cardiothoracic surgery standpoint when okay with other services Will continue to see on an as-needed basis, please call us with any further questions
[2024-11-10] MEDS: FUROSEMIDE 10 MG/ML 4 ML VIAL IV SCH (09:08)
--- NOTE | 2024-11-10 12:41 | P.PN ---
Subjective Patient is seen for follow-up for acute kidney injury. Renal function has improved. Serum creatinine at about 0.8 mg/dL. Patient complained of increased lower extremity swelling. Florinef was discontinued and Lasix has been increased. Neck swelling has improved No complaints of shortness of breath. Objective - Vital Signs Vital signs: Vital Signs Temp 97.9 F 11/10/24 09:05 Pulse 58 L 11/10/24 12:00 Resp 18 11/10/24 12:00 BP 110/72 11/10/24 12:00 Pulse Ox 98 11/10/24 12:00 FiO2 Intake & Output 11/09/24 11/10/24 11/10/24 18:59 06:59 18:59 Intake Total 0 Output Total 2275 300 700 Balance -2275 -300 -700 Weight 103.6 kg Intake: Oral 0 Output: Drainage 775 Left Chest 775 Urine 1500 300 700 Other: Voiding Method Toilet Toilet Toilet - Exam Patient is awake, comfortable, no acute distress. Examination of the heart S1 and S2 Examination of the lungs bilateral breath sounds are heard Abdomen is soft nontender Examination of lower extremities shows edema 2+ bilaterally [employer] exam grossly intact - Labs CBC & Chem 7: 11/09/24 06:17 11/09/24 06:17 Assessment and Plan Assessment: 1. Acute kidney injury secondary to ATN secondary to hypotension and hypovolemia improved with IV hydration. Resolved. UA benign. CT scan from October 2024 showed no evidence of hydronephrosis. Bilateral nonobstructing stones were noted. Baseline creatinine near 1. 2. Pericardial effusion status post pericardial window October 04, 2024. 3. Pleural effusions requiring thoracentesis and also history of left-sided VATS. 4. Coronary disease status post CABG in August 2024. 5. Diabetes mellitus. 6. Anemia. Iron deficiency noted. 7. Metabolic acidosis secondary to IV fluids. On oral bicarb. 8. Volume overload. Florinef has been discontinued. Maintained on IV Lasix. Plan: Continue with IV Lasix, increased dose Replace potassium continue off of Florinef Repeat labs in a.m. Continue with midodrine.
--- NOTE | 2024-11-10 15:17 | P.PN ---
Subjective Progress Note Date: 11/10/24 Principal diagnosis: Cardiac tamponade. Patient is a 49-year-old female with complicated past medical history significant for coronary artery disease with previous PCI/stenting and subsequent CABG x 3, recurrent left-sided pleural effusion with frequent thoracentesis status post left-sided VATS with talc pleurodesis and left sided Pleurx catheter placement, right-sided pleural effusion, diabetes mellitus, hypertension, carotid artery stenosis, alcohol abuse, liver disease, breast abscess, bipolar disorder/anxiety, previous tobacco dependence, chronic marijuana use. Note that back on August 09, 2024 patient underwent off-pump CABG x 3 at our facility. She had a prolonged and complicated hospitalization. Following the procedure, she developed persistent left-sided/recurrent pleural effusion requiring multiple thoracentesis, and did undergo left thoracoscopy, talc pleurodesis, and placement of a left Pleurx catheter on 09/29/2024. She also developed a rather large pericardial effusion, requiring subxiphoid pericardial window done 10/04/2024. She was finally discharged home from this facility 10/14/2024. While at home, the patient started having recurrent nausea and vomiting, was unable to tolerate food or drink, and was admitted at our facility 10/19/2024 through 10/23/2024 with colitis. [facility] was [facility], [facility]. Reportedly, found to have acute kidney injury and was admitted. Previously taking Toradol on an outpatient basis. While at outside facility, she was in the bathroom and became lightheaded. She does not recall other events while in the bathroom. Patient reportedly had a syncopal event and had brief CPR. I do not believe the patient ever lost a pulse. She did respond and did not require any intubation. Following the event, patient was reportedly found to be in A-fib RVR and then later was bradycardic. She was started on dopamine, and transferred to our facility. I believe the concern was for enlarging pericardial effusion. Follow-up chest CT at our facility showing resolution of gas within the pericardium seen on prior CTs, persistent small to moderate-sized pericardial effusion without tamponade features. Moderate to large left-sided pleural effusion. Patient does have Pleurx catheter in the pleural space. No obvious traumatic rib fractures or pneumothoraces. Patient is currently being evaluated in the intensive care unit. She is alert and oriented. No focal neurological deficits. No history of seizures, CVA/TIA, or prior syncopal events . Resting comfortably on 2 L/min nasal cannula. SpO2 is reading 100%. Patient states that she continues to drain her Pleurx catheter every 2 to 3 days. Gets anywhere from 50 to 200 cc of serous output when draining. She has not drained the catheter in a few days. She continues on dopamine which is infusing at 10 mcg/kg/min. Heart rate is actually tachycardic. This is sinus tachycardia, 106 bpm on bedside monitor. Blood pressure remains borderline 95/59 mmHg. She reports a mild amount of reproducible right-sided chest pain with deep breathing, coughing, or palpation. While in bed, denies any lightheadedness, heart palpitations, radiating chest pain, orthopnea. She does report some increased lower extremity swelling, bilaterally. No further episodes of vomiting. Intermittent nausea, however, is tolerating oral intake at this time. Denies any diarrhea, hematochezia, melena, hematemesis. She does report epigastric abdominal pain, which has been persistent over the last 2-1/2 months. Did have an EGD done August 31, 2024, which was fairly unremarkable in the report. She has been previously treated for colitis. CBC: WBC count 10.8, hemoglobin 8.8, hematocrit 28.7, platelets 133. CMP: Sodium 132, potassium 4.6, chloride 107, serum bicarb 17, BUN 26, creatinine 1.2, glucose 191. Magnesium 2. LFTs unremarkable. Normal saline infusing at 50 mL/h. Patient was evaluated today 11/03/2024, remains in the ICU, on 2 L nasal cannula, still requiring norepinephrine at 0.03 mcg/kg/min, patient was seen by cardiothoracic surgery and did not feel a need to have pericardial window or pericardiocentesis. She does have a moderate size loculated pericardial effusion, no plans to drain at this point. Patient remains a bit on the hypotensive side, requiring norepinephrine and midodrine was added today. Her left-sided pleural effusion has been drained patient does have a left Pleurx catheter in place. WBC is 4.7 hemoglobin 7.7 electrolytes are normal renal profile is normal Seen today on 11/04/2024, patient remains in the ICU mostly because she is still requiring norepinephrine at 0.05 mcg/kg/min to maintain adequate blood pressure. Her midodrine dose has been increased, patient cam is doing well, asymptomatic on room air, denies any shortness of breath no cough no wheezing no chest pain. Continues to have Pleurx catheter in place, thoracic surgery is not planning any intervention on her pericardial effusion. Evaluated today on 11/05/2024, patient is about the same, however she is off norepinephrine today, blood pressure is marginal. Denies any specific complaints, no cough no wheezing no shortness of breath no chest pain.WBC count is 8.3 hemoglobin 8.6 electrolytes are normal renal profile is normal The patient is seen today November 06, 2024 in follow-up on the selective care unit. She is currently sitting up in a chair at the bedside. Awake and alert in no acute distress. Denies any worsening shortness of breath, cough or congestion. She is maintaining good O2 saturations in the 90s on room air. She has been afebrile. Hemodynamically stable. White count 8.3. Hemoglobin 8.6. Platelets 147. Sodium 133. Potassium 4.4. Bicarb 18. BUN 11. Creatinine 0.9. She remains on IV diuretics. Heparin for DVT prophylaxis. Continued on prednisone taper. Chest x-ray reveals moderate left pleural effusion. No pneumothorax. Left-sided Pleurx catheter remains in place. Being managed by CT service. The patient is seen today November 07, 2024 in follow-up on the selective care unit. She is currently sitting up in bed. Awake and alert in no acute distress. Maintaining good O2 saturations in the 90s on room air. Chest x-ray shows marked reduction in the left pleural effusion. Tiny left pleural effusion persists. Pleurx catheter remains in place. She drained 300 mL of fluid today and 800 mL of fluid yesterday. Sodium 138. Potassium 3.4. Bicarb 27. BUN 13. Creatinine 0.95. Glucose 103. She remains on IV and oral diuretics. Heparin for DVT prophylaxis. Continued on prednisone. Progress note dated November 08, 2024. The patient is seen today in room 362. This is a patient who was admitted with a diagnosis of potential cardiac tamponade. The patient also has a history on chest x-ray left pleural effusion. She is currently sitting up in bed in no distress. The patient is currently on room air. She is not receiving any IV fluids. On auscultation, her lungs are clear to auscultation. She is in normal sinus rhythm. No current labs today. X-ray shows a mild left lower lobe infiltrate or atelectasis. Progress note dated November 09, 2024. 49-year-old female who is seen today in room 362. The patient currently is on room air. No IV fluids. The patient was to be discharged but apparently the d ischarge was held up because of her renal function, as well as her lower extremity edema. The patient is not having any respiratory distress or difficulty. Currently, white count 6.9, hemoglobin 8.7, hematocrit 28.6, platelet count 103,000. Sodium 137, potassium 3.4, chlorides 106, CO2 29, BUN 18, creatinine 0.87. Glucose is 108. Calcium 8.3. AST is 57. ALT is 47. Albumin is 2.5. Chest x-ray from yesterday shows a very mild left lower lobe infiltrate. Progress note dated November 10, 2024. 49-year-old female seen today in room 362. The patient is currently doing relatively well. She is hoping to be discharged home in a day or so. The lower extremity edema is better. The patient is currently on room air. No IV fluids. She has no specific complaints. She is resting comfortably in bed. She is awake and alert. No new labs today. Labs from November 09, have been reviewed. Objective - Vital Signs Vital signs: Vital Signs Temp 97.9 F 11/10/24 09:05 Pulse 58 L 11/10/24 12:00 Resp 18 11/10/24 12:00 BP 110/72 11/10/24 12:00 Pulse Ox 98 11/10/24 12:00 FiO2 Intake & Output 11/09/24 11/10/24 11/10/24 18:59 06:59 18:59 Intake Total 0 Output Total 2275 300 700 Balance -2275 -300 -700 Weight 103.6 kg Intake: Oral 0 Output: Drainage 775 Left Chest 775 Urine 1500 300 700 Other: Voiding Method Toilet Toilet Toilet - Exam No acute distress, oriented 3. Currently on room air. HEENT examination is grossly unremarkable. Mucous membranes are moist. No oral lesions. Neck supple. Full range of motion. No adenopathy thyromegaly or neck vein distention. Cardiovascular examination reveals regular rhythm rate. S1-S2 normal. No S3 or S4. No discernible murmur noted. Lungs reveal basilar crackles. No wheezes or rhonchi. Abdomen soft bowel sounds are heard. No masses or tenderness. Extremities are intact. No cyanosis or clubbing. 1+ pedal edema. Skin is without rash or lesion. Neurologic examination is brief but nonfocal. - Labs CBC & Chem 7: 11/09/24 06:17 11/09/24 06:17 Assessment and Plan Assessment: Pericardial effusion being addressed by cardiology and cardiothoracic surgery. Chronic recurrent left pleural effusion requiring Pleurx catheter. Suspect syncopal event. Bradycardia, resolved. Hypotension requiring norepinephrine and midodrine, resolved. Acute kidney injury, resolved. Microcytic, hypochromic anemia. Coronary artery disease with previous PCI/stenting and subsequent CABG x 3 normed on August 09, 2024, followed by a prolonged and complicated hospital course. Left-sided/recurrent pleural effusion requiring multiple thoracentesis, and did undergo left thoracoscopy, talc pleurodesis, and placement of a left Pleurx catheter on 09/29/2024. History of hypertension. History of hyperlipidemia. History of diabetes mellitus. History of bilateral carotid artery stenosis, with a greater than 70% stenosis of the left carotid bifurcation and less than 50% stenosis to the right carotid bifurcation. History of breast abscess. History of liver disease. History of alcohol abuse. Bipolar disorder/anxiety. Chronic marijuana use. Obesity, with a BMI of 37.7 kg/m. Plan: Plan dated November 08, 2024. The patient is seen today in room 362. The patient is stable, and not requiring any supplemental oxygen, or IV fluids. On auscultation, her lungs are relative ly clear. Minimal basilar crackles. She is in normal sinus rhythm. Labs, x- rays, and all medications are reviewed. We will continue to follow the patient, make recommendations along the way. Her Pleurx catheter remains in place. She continues on IV diuretics, and steroids. We will continue to follow and make recommendations. Prognosis is guarded. Plan dated November 09, 2024. The patient is seen today in room 362. The patient is currently on room air. No IV fluids. The patient complains of significant lower extremity swelling and edema. She states that when she walks on her feet, and feels like she has got [id number]. Labs, x-rays, and medications are reviewed. The patient is overall prognosis remains guarded. We will continue to follow the patient, make recommendations along the way. Prognosis is guarded. Plan dated November 10, 2024. The patient is seen today in room 362. She is on room air. No IV fluids. Her lower extremity edema is improved. Labs are from yesterday. We will continue to follow the patient, make recommendations along the way. The patient is hoping to be discharged in a day or so. No additional recommendations at this time. Respiratory status is certainly stable. Time with Patient: Less than 30
--- NOTE | 2024-11-11 02:44 | PN ---
PROGRESS NOTE DATE OF SERVICE: 11/10/2024 CHIEF COMPLAINT: Congestive heart failure and left pleural effusion with renal failure. HISTORY OF PRESENT ILLNESS: This lady is doing well and would like to go home, but Nephrology is still working on trying to control her peripheral edema. She denies any significant chest pain or shortness of breath. PHYSICAL EXAMINATION: VITAL SIGNS: Normal. CHEST: Clear except for the left side. ABDOMEN: Soft and nontender. EXTREMITIES: Lower extremity edema has gone down significantly since yesterday. IMPRESSION: 1. Atherosclerotic cardiomyopathy. 2. Congestive heart failure. 3. Left pleural effusion. 4. Renal failure. PLAN: Continue with efforts to diurese. MMODL / IJN: [id number] /
[2024-11-11 12:18] LABS: African American GFR (CKD) 86 (>60 ml/min/1.73 sqM); Anion Gap 0 mmol/L; Blood Urea Nitrogen 21 mg/dL (7-17); Calcium 8.3 mg/dL (8.4-10.2); Carbon Dioxide 33 mmol/L (22-30); Chloride 101 mmol/L (98-107); Glucose 169 mg/dL (74-99); Non-African American GFR(CKD) 75 (>60 ml/min/1.73 sqM); Potassium 3.3 mmol/L (3.5-5.1); Sodium 134 mmol/L (137-145)
--- NOTE | 2024-11-11 12:29 | P.PN ---
Subjective Patient is seen for follow-up for acute kidney injury. Renal function has improved and remains stable Serum creatinine at about 0.8- 0.9 mg/dL. Patient complained of increased lower extremity swelling. Florinef was discontinued and Lasix has been increased. Leg swelling has improved No complaints of shortness of breath. Objective - Vital Signs Vital signs: Vital Signs Temp 98.5 F 11/11/24 08:10 Pulse 64 11/11/24 08:10 Resp 16 11/11/24 08:10 BP 105/63 11/11/24 08:10 Pulse Ox 99 11/11/24 08:10 FiO2 Intake & Output 11/10/24 11/11/24 11/11/24 18:59 06:59 18:59 Intake Total 118 Output Total 1551 900 Balance -1551 -782 Weight 103.2 kg Intake: Oral 118 Output: Drainage 250 Left Chest 250 Urine 1300 900 Stool 1 Other: Voiding Method Toilet Toilet # Voids 1 1 # Bowel Movements 1 - Exam Patient is awake, comfortable, no acute distress. 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 Acute kidney injury secondary to ATN secondary to hypotension and hypovolemia improved with IV hydration. Resolved. UA benign. CT scan from October 2024 showed no evidence of hydronephrosis. Bilateral nonobstructing stones were noted. Baseline creatinine near 1. 2. Pericardial effusion status post pericardial window October 04, 2024. 3. Pleural effusions requiring thoracentesis and also history of left-sided VATS. 4. Coronary disease status post CABG in August 2024. 5. Diabetes mellitus. 6. Anemia. Iron deficiency noted. 7. Metabolic acidosis secondary to IV fluids. On oral bicarb. 8. Volume overload. Florinef has been discontinued. Maintained on IV Lasix. Plan: Continue with IV Lasix, increased dose check labs today continue off of Florinef Consider decreasing/discontinuing prednisone Repeat labs in a.m. Continue with midodrine.
--- NOTE | 2024-11-11 13:44 | P.PN ---
Subjective Progress Note Date: 11/11/24 Principal diagnosis: Cardiac tamponade. Patient is a 49-year-old female with complicated past medical history significant for coronary artery disease with previous PCI/stenting and subsequent CABG x 3, recurrent left-sided pleural effusion with frequent thoracentesis status post left-sided VATS with talc pleurodesis and left sided Pleurx catheter placement, right-sided pleural effusion, diabetes mellitus, hypertension, carotid artery stenosis, alcohol abuse, liver disease, breast abscess, bipolar disorder/anxiety, previous tobacco dependence, chronic marijuana use. Note that back on August 09, 2024 patient underwent off-pump CABG x 3 at our facility. She had a prolonged and complicated hospitalization. Following the procedure, she developed persistent left-sided/recurrent pleural effusion requiring multiple thoracentesis, and did undergo left thoracoscopy, talc pleurodesis, and placement of a left Pleurx catheter on 09/29/2024. She also developed a rather large pericardial effusion, requiring subxiphoid pericardial window done 10/04/2024. She was finally discharged home from this facility 10/14/2024. While at home, the patient started having recurrent nausea and vomiting, was unable to tolerate food or drink, and was admitted at our facility 10/19/2024 through 10/23/2024 with colitis. She was discharged, and went to [facility] few days later with similar symptoms. Reportedly, found to have acute kidney injury and was admitted. Previously taking Toradol on an outpatient basis. While at outside facility, she was in the bathroom and became lightheaded. She does not recall other events while in the bathroom. Patient reportedly had a syncopal event and had brief CPR. I do not believe the patient ever lost a pulse. She did respond and did not require any intubation. Following the event, patient was reportedly found to be in A-fib RVR and then later was bradycardic. She was started on dopamine, and transferred to our facility. I believe the concern was for enlarging pericardial effusion. Follow-up chest CT at our facility showing resolution of gas within the pericardium seen on prior CTs, persistent small to moderate-sized pericardial effusion without tamponade features. Moderate to large left-sided pleural effusion. Patient does have Pleurx catheter in the pleural space. No obvious traumatic rib fractures or pneumothoraces. Patient is currently being evaluated in the intensive care unit. She is alert and oriented. No focal neurological deficits. No history of seizures, CVA/TIA, or prior syncopal events . Resting comfortably on 2 L/min nasal cannula. SpO2 is reading 100%. Patient states that she continues to drain her Pleurx catheter every 2 to 3 days. Gets anywhere from 50 to 200 cc of serous output when draining. She has not drained the catheter in a few days. She continues on dopamine which is infusing at 10 mcg/kg/min. Heart rate is actually tachycardic. This is sinus tachycardia, 106 bpm on bedside monitor. Blood pressure remains borderline 95/59 mmHg. She reports a mild amount of reproducible right-sided chest pain with deep breathing, coughing, or palpation. While in bed, denies any lightheadedness, heart palpitations, radiating chest pain, orthopnea. She does report some increased lower extremity swelling, bilaterally. No further episodes of vomiting. Intermittent nausea, however, is tolerating oral intake at this time. Denies any diarrhea, hematochezia, melena, hematemesis. She does report epigastric abdominal pain, which has been persistent over the last 2-1/2 months. Did have an EGD done August 31, 2024, which was fairly unremarkable in the report. She has been previously treated for colitis. CBC: WBC count 10.8, hemoglobin 8.8, hematocrit 28.7, platelets 133. CMP: Sodium 132, potassium 4.6, chloride 107, serum bicarb 17, BUN 26, creatinine 1.2, glucose 191. Magnesium 2. LFTs unremarkable. Normal saline infusing at 50 mL/h. Patient was evaluated today 11/03/2024, remains in the ICU, on 2 L nasal cannula, still requiring norepinephrine at 0.03 mcg/kg/min, patient was seen by cardiothoracic surgery and did not feel a need to have pericardial window or pericardiocentesis. She does have a moderate size loculated pericardial effusion, no plans to drain at this point. Patient remains a bit on the hypotensive side, requiring norepinephrine and midodrine was added today. Her left-sided pleural effusion has been drained patient does have a left Pleurx catheter in place. WBC is 4.7 hemoglobin 7.7 electrolytes are normal renal profile is normal Seen today on 11/04/2024, patient remains in the ICU mostly because she is still requiring norepinephrine at 0.05 mcg/kg/min to maintain adequate blood pressure. Her midodrine dose has been increased, patient cam is doing well, asymptomatic on room air, denies any shortness of breath no cough no wheezing no chest pain. Continues to have Pleurx catheter in place, thoracic surgery is not planning any intervention on her pericardial effusion. Evaluated today on 11/05/2024, patient is about the same, however she is off norepinephrine today, blood pressure is marginal. Denies any specific complaints, no cough no wheezing no shortness of breath no chest pain.WBC count is 8.3 hemoglobin 8.6 electrolytes are normal renal profile is normal The patient is seen today November 06, 2024 in follow-up on the selective care unit. She is currently sitting up in a chair at the bedside. Awake and alert in no acute distress. Denies any worsening shortness of breath, cough or congestion. She is maintaining good O2 saturations in the 90s on room air. She has been afebrile. Hemodynamically stable. White count 8.3. Hemoglobin 8.6. Platelets 147. Sodium 133. Potassium 4.4. Bicarb 18. BUN 11. Creatinine 0.9. She remains on IV diuretics. Heparin for DVT prophylaxis. Continued on prednisone taper. Chest x-ray reveals moderate left pleural effusion. No pneumothorax. Left-sided Pleurx catheter remains in place. Being managed by CT service. The patient is seen today November 07, 2024 in follow-up on the selective care unit. She is currently sitting up in bed. Awake and alert in no acute distress. Maintaining good O2 saturations in the 90s on room air. Chest x-ray shows marked reduction in the left pleural effusion. Tiny left pleural effusion persists. Pleurx catheter remains in place. She drained 300 mL of fluid today and 800 mL of fluid yesterday. Sodium 138. Potassium 3.4. Bicarb 27. BUN 13. Creatinine 0.95. Glucose 103. She remains on IV and oral diuretics. Heparin for DVT prophylaxis. Continued on prednisone. Progress note dated November 08, 2024. The patient is seen today in room 362. This is a patient who was admitted with a diagnosis of potential cardiac tamponade. The patient also has a history on chest x-ray left pleural effusion. She is currently sitting up in bed in no distress. The patient is currently on room air. She is not receiving any IV fluids. On auscultation, her lungs are clear to auscultation. She is in normal sinus rhythm. No current labs today. X-ray shows a mild left lower lobe infiltrate or atelectasis. Progress note dated November 09, 2024. 49-year-old female who is seen today in room 362. The patient currently is on room air. No IV fluids. The patient was to be discharged but apparently the d ischarge was held up because of her renal function, as well as her lower extremity edema. The patient is not having any respiratory distress or difficulty. Currently, white count 6.9, hemoglobin 8.7, hematocrit 28.6, platelet count 103,000. Sodium 137, potassium 3.4, chlorides 106, CO2 29, BUN 18, creatinine 0.87. Glucose is 108. Calcium 8.3. AST is 57. ALT is 47. Albumin is 2.5. Chest x-ray from yesterday shows a very mild left lower lobe infiltrate. Progress note dated November 10, 2024. 49-year-old female seen today in room 362. The patient is currently doing relatively well. She is hoping to be discharged home in a day or so. The lower extremity edema is better. The patient is currently on room air. No IV fluids. She has no specific complaints. She is resting comfortably in bed. She is awake and alert. No new labs today. Labs from November 09, have been reviewed. Progress note dated November 11, 2024. 49-year-old female seen today in room 362. The patient was to be discharged, but was held back, because of lower extremity edema. She is currently on room a ir. Saturations are 99%. She is not receiving any IV fluids. Current labs include a sodium 134, potassium 3.3, chlorides 101, CO2 33, BUN 21, creatinine 0.91. Glucose 169. Calcium 8.3. Objective - Vital Signs Vital signs: Vital Signs Temp 98.8 F 11/11/24 12:43 Pulse 59 L 11/11/24 12:43 Resp 18 11/11/24 12:43 BP 93/53 11/11/24 12:43 Pulse Ox 95 11/11/24 12:43 FiO2 Intake & Output 11/10/24 11/11/24 11/11/24 18:59 06:59 18:59 Intake Total 118 Output Total 1551 900 Balance -1551 -782 Weight 103.2 kg Intake: Oral 118 Output: Drainage 250 Left Chest 250 Urine 1300 900 Stool 1 Other: Voiding Method Toilet Toilet # Voids 1 1 # Bowel Movements 1 - Exam No acute distress, oriented 3. Currently on room air. HEENT examination is grossly unremarkable. Mucous membranes are moist. No oral lesions. Neck supple. Full range of motion. No adenopathy thyromegaly or neck vein distention. Cardiovascular examination reveals regular rhythm rate. S1-S2 normal. No S3 or S4. No discernible murmur noted. Lungs reveal basilar crackles. No wheezes or rhonchi. Abdomen soft bowel sounds are heard. No masses or tenderness. Extremities are intact. No cyanosis or clubbing. 1+ pedal edema. Skin is without rash or lesion. Neurologic examination is brief but nonfocal. - Labs CBC & Chem 7: 11/09/24 06:17 11/11/24 11:29 Labs: Abnormal Lab Results - Last 24 Hours (Table) 11/11/24 Range/Units 11:29 Sodium 134 L (137-145) mmol/L Potassium 3.3 L (3.5-5.1) mmol/L Carbon Dioxide 33 H (22-30) mmol/L BUN 21 H (7-17) mg/dL Glucose 169 H (74-99) mg/dL Calcium 8.3 L (8.4-10.2) mg/dL Assessment and Plan Assessment: Pericardial effusion being addressed by cardiology and cardiothoracic surgery. Chronic recurrent left pleural effusion requiring Pleurx catheter. Suspect syncopal event. Bradycardia, resolved. Hypotension requiring norepinephrine and midodrine, resolved. Acute kidney injury, resolved. Microcytic, hypochromic anemia. Coronary artery disease with previous PCI/stenting and subsequent CABG x 3 normed on August 09, 2024, followed by a prolonged and complicated hospital course. Left-sided/recurrent pleural effusion requiring multiple thoracentesis, and did undergo left thoracoscopy, talc pleurodesis, and placement of a left Pleurx catheter on 09/29/2024. History of hypertension. History of hyperlipidemia. History of diabetes mellitus. History of bilateral carotid artery stenosis, with a greater than 70% stenosis of the left carotid bifurcation and less than 50% stenosis to the right carotid bifurcation. History of breast abscess. History of liver disease. History of alcohol abuse. Bipolar disorder/anxiety. Chronic marijuana use. Obesity, with a BMI of 37.7 kg/m. Plan: Plan dated November 08, 2024. The patient is seen today in room 362. The patient is stable, and not requiring any supplemental oxygen, or IV fluids. On auscultation, her lungs are relatively clear. Minimal basilar crackles. She is in normal sinus rhythm. Labs, x-rays, and all medications are reviewed. We will continue to follow the patient, make recommendations along the way. Her Pleurx catheter remains in place. She continues on IV diuretics, and steroids. We will continue to follow and make recommendations. Prognosis is guarded. Plan dated November 09, 2024. The patient is seen today in room 362. The patient is currently on room air. No IV fluids. The patient complains of significant lower extremity swelling and edema. She states that when she walks on her feet, and feels like she has got [id number]. Labs, x-rays, and medications are reviewed. The patient is overall prognosis remains guarded. We will continue to follow the patient, make recommendations along the way. Prognosis is guarded. Plan dated November 10, 2024. The patient is seen today in room 362. She is on room air. No IV fluids. Her lower extremity edema is improved. Labs are from yesterday. We will continue to follow the patient, make recommendations along the way. The patient is hoping to be discharged in a day or so. No additional recommendations at this time. Respiratory status is certainly stable. Plan dated November 11, 2024. The patient is seen today in room 362. The patient is stable from the pulmonary standpoint. She is on room air. Saturations are 99%. She is not receiving any IV fluids. She does have lower extremity edema, which is improved. The patient from our perspective could be discharged. We said that a couple days ago. Anyway, again from the pulmonary standpoint she is stable. Labs, x-rays, and all medications are reviewed. Time with Patient: Less than 30
[2024-11-11] MEDS: POTASSIUM CHLORIDE ER 20 MEQ TAB.ER PO SCH (18:12)
--- NOTE | 2024-11-12 13:56 | P.PN ---
Subjective Progress Note Date: 11/12/24 Principal diagnosis: Cardiac tamponade. Patient is a 49-year-old female with complicated past medical history significant for coronary artery disease with previous PCI/stenting and subsequent CABG x 3, recurrent left-sided pleural effusion with frequent thoracentesis status post left-sided VATS with talc pleurodesis and left sided Pleurx catheter placement, right-sided pleural effusion, diabetes mellitus, hypertension, carotid artery stenosis, alcohol abuse, liver disease, breast abscess, bipolar disorder/anxiety, previous tobacco dependence, chronic marijuana use. Note that back on August 09, 2024 patient underwent off-pump CABG x 3 at our facility. She had a prolonged and complicated hospitalization. Following the procedure, she developed persistent left-sided/recurrent pleural effusion requiring multiple thoracentesis, and did undergo left thoracoscopy, talc pleurodesis, and placement of a left Pleurx catheter on 09/29/2024. She also developed a rather large pericardial effusion, requiring subxiphoid pericardial window done 10/04/2024. She was finally discharged home from this facility 10/14/2024. While at home, the patient started having recurrent nausea and vomiting, was unable to tolerate food or drink, and was admitted at our facility 10/19/2024 through 10/23/2024 with colitis. [facility]. Reportedly, found to have acute kidney injury and was admitted. Previously taking Toradol on an outpatient basis. While at outside facility, she was in the bathroom and became lightheaded. She does not recall other events while in the bathroom. Patient reportedly had a syncopal event and had brief CPR. I do not believe the patient ever lost a pulse. She did respond and did not require any intubation. Following the event, patient was reportedly found to be in A-fib RVR and then later was bradycardic. She was started on dopamine, and transferred to our facility. I believe the concern was for enlarging pericardial effusion. Follow-up chest CT at our facility showing resolution of gas within the pericardium seen on prior CTs, persistent small to moderate-sized pericardial effusion without tamponade features. Moderate to large left-sided pleural effusion. Patient does have Pleurx catheter in the pleural space. No obvious traumatic rib fractures or pneumothoraces. Patient is currently being evaluated in the intensive care unit. She is alert and oriented. No focal neurological deficits. No history of seizures, CVA/TIA, or prior syncopal events . Resting comfortably on 2 L/min nasal cannula. SpO2 is reading 100%. Patient states that she continues to drain her Pleurx catheter every 2 to 3 days. Gets anywhere from 50 to 200 cc of serous output when draining. She has not drained the catheter in a few days. She continues on dopamine which is infusing at 10 mcg/kg/min. Heart rate is actually tachycardic. This is sinus tachycardia, 106 bpm on bedside monitor. Blood pressure remains borderline 95/59 mmHg. She reports a mild amount of reproducible right-sided chest pain with deep breathing, coughing, or palpation. While in bed, denies any lightheadedness, heart palpitations, radiating chest pain, orthopnea. She does report some increased lower extremity swelling, bilaterally. No further episodes of vomiting. Intermittent nausea, however, is tolerating oral intake at this time. Denies any diarrhea, hematochezia, melena, hematemesis. She does report epigastric abdominal pain, which has been persistent over the last 2-1/2 months. Did have an EGD done August 31, 2024, which was fairly unremarkable in the report. She has been previously treated for colitis. CBC: WBC count 10.8, hemoglobin 8.8, hematocrit 28.7, platelets 133. CMP: Sodium 132, potassium 4.6, chloride 107, serum bicarb 17, BUN 26, creatinine 1.2, glucose 191. Magnesium 2. LFTs unremarkable. Normal saline infusing at 50 mL/h. Patient was evaluated today 11/03/2024, remains in the ICU, on 2 L nasal cannula, still requiring norepinephrine at 0.03 mcg/kg/min, patient was seen by cardiothoracic surgery and did not feel a need to have pericardial window or pericardiocentesis. She does have a moderate size loculated pericardial effusion, no plans to drain at this point. Patient remains a bit on the hypotensive side, requiring norepinephrine and midodrine was added today. Her left-sided pleural effusion has been drained patient does have a left Pleurx catheter in place. WBC is 4.7 hemoglobin 7.7 electrolytes are normal renal profile is normal Seen today on 11/04/2024, patient remains in the ICU mostly because she is still requiring norepinephrine at 0.05 mcg/kg/min to maintain adequate blood pressure. Her midodrine dose has been increased, patient cam is doing well, asymptomatic on room air, denies any shortness of breath no cough no wheezing no chest pain. Continues to have Pleurx catheter in place, thoracic surgery is not planning any intervention on her pericardial effusion. Evaluated today on 11/05/2024, patient is about the same, however she is off norepinephrine today, blood pressure is marginal. Denies any specific complaints, no cough no wheezing no shortness of breath no chest pain.WBC count is 8.3 hemoglobin 8.6 electrolytes are normal renal profile is normal The patient is seen today November 06, 2024 in follow-up on the selective care unit. She is currently sitting up in a chair at the bedside. Awake and alert in no acute distress. Denies any worsening shortness of breath, cough or congestion. She is maintaining good O2 saturations in the 90s on room air. She has been afebrile. Hemodynamically stable. White count 8.3. Hemoglobin 8.6. Platelets 147. Sodium 133. Potassium 4.4. Bicarb 18. BUN 11. Creatinine 0.9. She remains on IV diuretics. Heparin for DVT prophylaxis. Continued on prednisone taper. Chest x-ray reveals moderate left pleural effusion. No pneumothorax. Left-sided Pleurx catheter remains in place. Being managed by CT service. The patient is seen today November 07, 2024 in follow-up on the selective care unit. She is currently sitting up in bed. Awake and alert in no acute distress. Maintaining good O2 saturations in the 90s on room air. Chest x-ray shows marked reduction in the left pleural effusion. Tiny left pleural effusion persists. Pleurx catheter remains in place. She drained 300 mL of fluid today and 800 mL of fluid yesterday. Sodium 138. Potassium 3.4. Bicarb 27. BUN 13. Creatinine 0.95. Glucose 103. She remains on IV and oral diuretics. Heparin for DVT prophylaxis. Continued on prednisone. Progress note dated November 08, 2024. The patient is seen today in room 362. This is a patient who was admitted with a diagnosis of potential cardiac tamponade. The patient also has a history on chest x-ray left pleural effusion. She is currently sitting up in bed in no distress. The patient is currently on room air. She is not receiving any IV fluids. On auscultation, her lungs are clear to auscultation. She is in normal sinus rhythm. No current labs today. X-ray shows a mild left lower lobe infiltrate or atelectasis. Progress note dated November 09, 2024. 49-year-old female who is seen today in room 362. The patient currently is on room air. No IV fluids. The patient was to be discharged but apparently the d ischarge was held up because of her renal function, as well as her lower extremity edema. The patient is not having any respiratory distress or difficulty. Currently, white count 6.9, hemoglobin 8.7, hematocrit 28.6, platelet count 103,000. Sodium 137, potassium 3.4, chlorides 106, CO2 29, BUN 18, creatinine 0.87. Glucose is 108. Calcium 8.3. AST is 57. ALT is 47. Albumin is 2.5. Chest x-ray from yesterday shows a very mild left lower lobe infiltrate. Progress note dated November 10, 2024. 49-year-old female seen today in room 362. The patient is currently doing relatively well. She is hoping to be discharged home in a day or so. The lower extremity edema is better. The patient is currently on room air. No IV fluids. She has no specific complaints. She is resting comfortably in bed. She is awake and alert. No new labs today. Labs from November 09, have been reviewed. Progress note dated November 11, 2024. 49-year-old female seen today in room 362. The patient was to be discharged, but was held back, because of lower extremity edema. She is currently on room a ir. Saturations are 99%. She is not receiving any IV fluids. Current labs include a sodium 134, potassium 3.3, chlorides 101, CO2 33, BUN 21, creatinine 0.91. Glucose 169. Calcium 8.3. Progress note dated November 12, 2024. 49-year-old female seen in room 362. The patient is currently on room air. No IV fluids. The patient is hoping to be discharged soon. She denies any shortness of breath, cough, wheezing, chest tightness, or phlegm production. Her primary care physician is Dr. Gage. No new labs today. Objective - Vital Signs Vital signs: Vital Signs Temp 98.7 F 11/11/24 21:20 Pulse 61 11/12/24 08:00 Resp 16 11/12/24 08:00 BP 106/61 11/12/24 08:00 Pulse Ox 97 11/12/24 08:00 FiO2 Intake & Output 11/11/24 11/12/24 11/12/24 18:59 06:59 18:59 Intake Total 236 480 222 Output Total 1999 1299 Balance -1764 480 -1078 Weight 103.6 kg Intake: Oral 236 480 222 Output: Urine 1999 1300 Other: Voiding Method Toilet Toilet # Voids 1 - Exam No acute distress, oriented 3. Currently on room air. HEENT examination is grossly unremarkable. Mucous membranes are moist. No oral lesions. Neck supple. Full range of motion. No adenopathy thyromegaly or neck vein distention. Cardiovascular examination reveals regular rhythm rate. S1-S2 normal. No S3 or S4. No discernible murmur noted. Lungs reveal basilar crackles. No wheezes or rhonchi. Abdomen soft bowel sounds are heard. No masses or tenderness. Extremities are intact. No cyanosis or clubbing. 1+ pedal edema. Skin is without rash or lesion. Neurologic examination is brief but nonfocal. - Labs CBC & Chem 7: 11/09/24 06:17 11/11/24 11:29 Assessment and Plan Assessment: Pericardial effusion being addressed by cardiology and cardiothoracic surgery. Chronic recurrent left pleural effusion requiring Pleurx catheter. Suspect syncopal event. Bradycardia, resolved. Hypotension requiring norepinephrine and midodrine, resolved. Acute kidney injury, resolved. Microcytic, hypochromic anemia. Coronary artery disease with previous PCI/stenting and subsequent CABG x 3 normed on August 09, 2024, followed by a prolonged and complicated hospital course. Left-sided/recurrent pleural effusion requiring multiple thoracentesis, and did undergo left thoracoscopy, talc pleurodesis, and placement of a left Pleurx catheter on 09/29/2024. History of hypertension. History of hyperlipidemia. History of diabetes mellitus. History of bilateral carotid artery stenosis, with a greater than 70% stenosis of the left carotid bifurcation and less than 50% stenosis to the right carotid bifurcation. History of breast abscess. History of liver disease. History of alcohol abuse. Bipolar disorder/anxiety. Chronic marijuana use. Obesity, with a BMI of 37.7 kg/m. Plan: Plan dated November 08, 2024. The patient is seen today in room 362. The patient is stable, and not requiring any supplemental oxygen, or IV fluids. On auscultation, her lungs are relati vely clear. Minimal basilar crackles. She is in normal sinus rhythm. Labs, x- rays, and all medications are reviewed. We will continue to follow the patient, make recommendations along the way. Her Pleurx catheter remains in place. She continues on IV diuretics, and steroids. We will continue to follow and make recommendations. Prognosis is guarded. Plan dated November 09, 2024. The patient is seen today in room 362. The patient is currently on room air. No IV fluids. The patient complains of significant lower extremity swelling and edema. She states that when she walks on her feet, and feels like she has got [id number]. Labs, x-rays, and medications are reviewed. The patient is overall prognosis remains guarded. We will continue to follow the patient, make recommendations along the way. Prognosis is guarded. Plan dated November 10, 2024. The patient is seen today in room 362. She is on room air. No IV fluids. Her lower extremity edema is improved. Labs are from yesterday. We will continue to follow the patient, make recommendations along the way. The patient is hoping to be discharged in a day or so. No additional recommendations at this time. Respiratory status is certainly stable. Plan dated November 11, 2024. The patient is seen today in room 362. The patient is stable from the pulmonary standpoint. She is on room air. Saturations are 99%. She is not receiving any IV fluids. She does have lower extremity edema, which is improved. The patient from our perspective could be discharged. We said that a couple days ago. Anyway, again from the pulmonary standpoint she is stable. Labs, x-rays, and all medications are reviewed. Plan dated November 12, 2024. The patient is very stable. She is seen today in room 362. She is on room air. No IV fluids. From the pulmonary standpoint, she can be discharged. No additional recommendations are made. Moving forward, should she not be discharged, we will see the patient only as needed. No additional recommendations at this time. Time with Patient: Less than 30
--- NOTE | 2024-11-12 16:11 | P.PN ---
Subjective Patient is seen for follow-up for acute kidney injury. Renal function has improved and remains stable Serum creatinine at about 0.8- 0.9 mg/dL. Patient complained of increased lower extremity swelling. Florinef was discontinued and Lasix has been increased. Leg swelling has improved No complaints of shortness of breath. Objective - Vital Signs Vital signs: Vital Signs Temp 98.7 F 11/11/24 21:20 Pulse 65 11/12/24 14:00 Resp 16 11/12/24 14:00 BP 104/68 11/12/24 12:00 Pulse Ox 97 11/12/24 12:00 FiO2 Intake & Output 11/11/24 11/12/24 11/12/24 18:59 06:59 18:59 Intake Total 236 480 222 Output Total 1999 1299 Balance -1764 480 -1078 Weight 103.6 kg Intake: Oral 236 480 222 Output: Urine 1999 1300 Other: Voiding Method Toilet Toilet # Voids 1 - Exam Patient is awake, comfortable, no acute distress. Examination of the heart S1 and S2 Examination of the lungs bilateral breath sounds are heard Abdomen is soft nontender Examination of lower extremities shows edema 1+ bilaterally, improved [employer] exam grossly intact - Labs CBC & Chem 7: 11/09/24 06:17 11/11/24 11:29 Assessment and Plan Assessment: 1. Acute kidney injury secondary to ATN secondary to hypotension and hyp ovolemia improved with IV hydration. Resolved. UA benign. CT scan from October 2024 showed no evidence of hydronephrosis. Bilateral nonobstructing stones were noted. Baseline creatinine near 1. 2. Pericardial effusion status post pericardial window October 04, 2024. 3. Pleural effusions requiring thoracentesis and also history of left-sided VATS. 4. Coronary disease status post CABG in August 2024. 5. Diabetes mellitus. 6. Anemia. Iron deficiency noted. 7. Metabolic acidosis secondary to IV fluids. On oral bicarb. 8. Volume overload. Florinef has been discontinued. Maintained on IV Lasix. Plan: Continue with diuretics. Lasix can be switched to oral, 40 mg twice a day Okay for discharge from nephrology standpoint continue off of Florinef Consider decreasing/discontinuing prednisone Continue with midodrine. Discussed with patient regarding need to adjust diuretics based on weight and lower extremity edema.
[2024-11-12 18:41] LABS: African American GFR (CKD) >90 (>60 ml/min/1.73 sqM); Anion Gap 2 mmol/L; Blood Urea Nitrogen 27 mg/dL (7-17); Calcium 8.4 mg/dL (8.4-10.2); Carbon Dioxide 28 mmol/L (22-30); Chloride 101 mmol/L (98-107); Glucose 230 mg/dL (74-99); Non-African American GFR(CKD) 79 (>60 ml/min/1.73 sqM); Potassium 4.5 mmol/L (3.5-5.1); Sodium 131 mmol/L (137-145)
--- NOTE | 2024-11-12 20:50 | PN ---
PROGRESS NOTE DATE OF SERVICE: 11/11/2024 CHIEF COMPLAINT: Acute . HISTORY OF PRESENT ILLNESS: This lady is doing fairly well, but she has not been working on her heart failure and peripheral edema. Also, her potassium is 3.3. REVIEW OF SYSTEMS: She feels well. She does not feel short of breath and she is not having any chest pain. PHYSICAL EXAMINATION: VITAL SIGNS: Good. Blood pressure is over 100. GENERAL: She is pale. CHEST: Demonstrates poor breath sounds on the left. CARDIAC: Otherwise normal. ABDOMEN: Soft. EXTREMITIES: She has about 2 or 3+ edema. IMPRESSION: 1. Cardiomyopathy. 2. Acute on chronic congestive heart failure. 3. Pericardial effusion, status post pericardial window. 4. Left pleural effusion with PleurX valve. 5. Hypokalemia. PLAN: No change in program and await for clearance for her discharge from Nephrology. MMODL / IJN: [id number] /
--- NOTE | 2024-11-13 04:37 | PN ---
PROGRESS NOTE DATE OF SERVICE: 11/12/2024 CHIEF COMPLAINT: Congestive heart failure, cardiomyopathy, coronary artery disease, and CHF. HISTORY OF PRESENT ILLNESS: This lady is doing fairly well. Awaits clearance from Nephrology. She still has some edema. She denies any chest pain, shortness of breath, etc. PHYSICAL EXAMINATION: VITAL SIGNS: Stable. CHEST: Good breath sounds on the right. CARDIAC: Unchanged. ABDOMEN: Soft and nontender. IMPRESSION: 1. Coronary artery disease. 2. Atherosclerotic cardiomyopathy. 3. Pericardial effusion, status post pericardial window. 4. Chronic left pleural effusion with PleurX valve. 5. Chronic kidney disease. PLAN: Home when cleared by Nephrology. MMODL / IJN: [id number] /
--- NOTE | 2024-11-13 13:12 | P.PN ---
Subjective Progress Note Date: 11/13/24 Cardiac tamponade. Patient is a 49-year-old female with complicated past medical history significant for coronary artery disease with previous PCI/stenting and subsequent CABG x 3, recurrent left-sided pleural effusion with frequent thoracentesis status post left-sided VATS with talc pleurodesis and left sided Pleurx catheter placement, right-sided pleural effusion, diabetes mellitus, hypertension, carotid artery stenosis, alcohol abuse, liver disease, breast abscess, bipolar disorder/anxiety, previous tobacco dependence, chronic marijuana use. Note that back on August 09, 2024 patient underwent off-pump CABG x 3 at our facility. She had a prolonged and complicated hospitalization. Following the procedure, she developed persistent left-sided/recurrent pleural effusion requiring multiple thoracentesis, and did undergo left thoracoscopy, talc pleurodesis, and placement of a left Pleurx catheter on 09/29/2024. She also developed a rather large pericardial effusion, requiring subxiphoid pe ricardial window done 10/04/2024. She was finally discharged home from this facility 10/14/2024. While at home, the patient started having recurrent nausea and vomiting, was unable to tolerate food or drink, and was admitted at our facility 10/19/2024 through 10/23/2024 with colitis. She was discharged, and went to [facility] with similar symptoms. Reportedly, found to have acute kidney injury and was admitted. Previously taking Toradol on an outpatient basis. While at outside facility, she was in the bathroom and became lightheaded. She does not recall other events while in the bathroom. Patient reportedly had a syncopal event and had brief CPR. I do not believe the patient ever lost a pulse. She did respond and did not require any intubation. Following the event, patient was reportedly found to be in A-fib RVR and then later was bradycardic. She was started on dopamine, and transferred to our facility. I believe the concern was for enlarging pe ricardial effusion. Follow-up chest CT at our facility showing resolution of gas within the pericardium seen on prior CTs, persistent small to moderate-sized pericardial effusion without tamponade features. Moderate to large left-sided pleural effusion. Patient does have Pleurx catheter in the pleural space. No obvious traumatic rib fractures or pneumothoraces. Patient is currently being evaluated in the intensive care unit. She is alert and oriented. No focal neurological deficits. No history of seizures, CVA/TIA, or prior syncopal events. Resting comfortably on 2 L/min nasal cannula. SpO2 is reading 100%. Patient states that she continues to drain her Pleurx catheter every 2 to 3 days. Gets anywhere from 50 to 200 cc of serous output when draining. She has not drained the catheter in a few days. She continues on dopamine which is infusing at 10 mcg/kg/min. Heart rate is actually tachycardic. This is sinus tachycardia, 106 bpm on bedside monitor. Blood pressure remains borderline 95/59 mmHg. She reports a mild amount of reproducible right-sided chest pain with deep breathing, coughing, or palpation. While in bed, denies any lightheadedness, heart palpitations, radiating chest pain, orthopnea. She does report some increased lower extremity swelling, bilaterally. No further episodes of vomiting. Intermittent nausea, however, is tolerating oral intake at this time. Denies any diarrhea, hematochezia, melena, hematemesis. She does report epigastric abdominal pain, which has been persistent over the last 2-1/2 months. Did have an EGD done August 31, 2024, which was fairly unremarkable in the report. She has been previously treated for colitis. CBC: WBC count 10.8, hemoglobin 8.8, hematocrit 28.7, platelets 133. CMP: Sodium 132, potassium 4.6, chloride 107, serum bicarb 17, BUN 26, creatinine 1.2, glucose 191. Magnesium 2. LFTs unremarkable. Normal saline infusing at 50 mL/h. 11/13. Dr. Vance took over care from Dr. Tolliver. Complaining of swelling of lower extremities. REVIEW OF SYSTEMS: CONSTITUTIONAL: No fever, no malaise,. CARDIOVASCULAR: No chest pain, no palpitations, no syncope. PULMONARY: No shortness of breath, no cough, GASTROINTESTINAL: No diarrhea, no nausea, no vomiting, no abdominal pain. NEUROLOGICAL: No headaches, no weakness, PHYSICAL EXAMINATION: GENERAL: The patient is alert and oriented x3, not in any acute distress. Well developed, well nourished. HEENT: Pupils are round and equally reacting to light. EOMI. No scleral icterus. No conjunctival pallor. Normocephalic, atraumatic. No pharyngeal erythema. No thyromegaly. CARDIOVASCULAR: S1 and S2 present. No murmurs, rubs, or gallops. PULMONARY: Diminished breath sound the bases bilaterally, Pleurx catheter seen ABDOMEN: Soft, nontender, nondistended, normoactive bowel sounds. No palpable organomegaly. MUSCULOSKELETAL: No joint swelling or deformity. EXTREMITIES: 1+ pitting edema lower extremities NEUROLOGICAL: Gross neurological examination did not reveal any focal deficits. SKIN: No rashes. Assessment and plan Pericardial effusion Chronic recurrent left pleural effusion requiring Pleurx catheter. Suspect syncopal event. Bradycardia Hypotension resolved. Acute kidney injury, resolved. Microcytic, hypochromic anemia. Coronary artery disease with previous PCI/stenting and subsequent CABG x 3 normed on August 09, 2024, followed by a prolonged and complicated hospital course. Left-sided/recurrent pleural effusion requiring multiple thoracentesis, and did undergo left thoracoscopy, talc pleurodesis, and placement of a left Pleurx catheter on 09/29/2024. History of hypertension. History of hyperlipidemia. History of diabetes mellitus. History of bilateral carotid artery stenosis, with a greater than 70% stenosis of the left carotid bifurcation and less than 50% stenosis to the right carotid bifurcation. Hstory of breast abscess. History of liver disease. History of alcohol abuse. Bipolar disorder/anxiety. Chronic marijuana use. Obesity, with a BMI of 37.7 kg/m. Monitor vital signs Monitor CBC Monitor CMP Continue telemetry monitoring Encourage use of incentive spirometer Aggressive bronchopulmonary hygiene I's and O's, daily weights, Lasix 40 mg daily Continue aspirin, Lipitor Continue Aldactone Nephrology following CT surgery following Labs and medication were reviewed.. Continue same treatment. Continue with symptomatic treatment. Resume home medication. Monitor labs and vitals. DVT and GI prophylaxis. Further recommendations as per clinical course of the patient Dictation was produced using [employer] dictation software. please excuse any grammatical, word or spelling errors. Objective - Vital Signs Vital signs: Vital Signs Temp 97.9 F 11/13/24 07:52 Pulse 65 11/13/24 07:52 Resp 16 11/13/24 07:52 BP 108/59 11/13/24 07:52 Pulse Ox 100 11/13/24 07:52 FiO2 Intake & Output 11/12/24 11/13/24 11/13/24 18:59 06:59 18:59 Intake Total 222 240 Output Total 1750 900 800 Balance -1528 -900 -560 Weight 102.4 kg Intake: Oral 222 240 Output: Drainage 450 Left Chest 450 Urine 1300 900 800 Other: Voiding Method Toilet Toilet Toilet # Voids 4 - Labs CBC & Chem 7: 11/09/24 06:17 11/12/24 18:07 Labs: Abnormal Lab Results - Last 24 Hours (Table) 11/12/24 Range/Units 18:07 Sodium 131 L (137-145) mmol/L BUN 27 H (7-17) mg/dL Glucose 230 H (74-99) mg/dL
[2024-11-14 07:34] LABS: ALT 61 U/L (4-34); AST 52 U/L (14-36); African American GFR (CKD) 85 (>60 ml/min/1.73 sqM); Albumin 2.7 g/dL (3.5-5.0); Alkaline Phosphatase 164 U/L (38-126); Anion Gap 1 mmol/L; Blood Urea Nitrogen 30 mg/dL (7-17); Calcium 8.3 mg/dL (8.4-10.2); Carbon Dioxide 35 mmol/L (22-30); Chloride 98 mmol/L (98-107); Glucose 124 mg/dL (74-99); Non-African American GFR(CKD) 73 (>60 ml/min/1.73 sqM); Potassium 4.1 mmol/L (3.5-5.1); Sodium 134 mmol/L (137-145); Total Protein 5.1 g/dL (6.3-8.2)
[2024-11-14 07:36] LABS: Anisocytosis Moderate; Basophils % (A) 0 %; Eosinophils # (A) 0.1 k/uL (0-0.7); Eosinophils % (A) 1 %; HCT 31.1 % (34.0-46.0); HGB 9.3 gm/dL (11.4-16.0); Hypochromasia Marked; Lymphocytes # (A) 1.4 k/uL (1.0-4.8); Lymphocytes % (A) 18 %; MCH 24.8 pg (25.0-35.0); MCHC 29.8 g/dL (31.0-37.0); MCV 83.2 fL (80.0-100.0); Microcytosis Slight; Monocytes # (A) 0.6 k/uL (0-1.0); Monocytes % (A) 7 %; Neutrophils # (A) 5.7 k/uL (1.3-7.7); Neutrophils % (A) 73 %; RBC 3.74 m/uL (3.80-5.40); RDW 22.1 % (11.5-15.5); WBC 7.8 k/uL (3.8-10.6)
[2024-11-14 08:08] LABS: Platelet Count 66 k/uL (150-450)
--- NOTE | 2024-11-14 13:12 | P.PN ---
Subjective Progress Note Date: 11/14/24 Cardiac tamponade. Patient is a 49-year-old female with complicated past medical history significant for coronary artery disease with previous PCI/stenting and subsequent CABG x 3, recurrent left-sided pleural effusion with frequent thoracentesis status post left-sided VATS with talc pleurodesis and left sided Pleurx catheter placement, right-sided pleural effusion, diabetes mellitus, hypertension, carotid artery stenosis, alcohol abuse, liver disease, breast abscess, bipolar disorder/anxiety, previous tobacco dependence, chronic marijuana use. Note that back on August 09, 2024 patient underwent off-pump CABG x 3 at our facility. She had a prolonged and complicated hospitalization. Following the procedure, she developed persistent left-sided/recurrent pleural effusion requiring multiple thoracentesis, and did undergo left thoracoscopy, talc pleurodesis, and placement of a left Pleurx catheter on 09/29/2024. She also developed a rather large pericardial effusion, requiring subxiphoid pe ricardial window done 10/04/2024. She was finally discharged home from this facility 10/14/2024. While at home, the patient started having recurrent nausea and vomiting, was unable to tolerate food or drink, and was admitted at our facility 10/19/2024 through 10/23/2024 with colitis. [facility] was discharged[facility]. Reportedly, found to have acute kidney injury and was admitted. Previously taking Toradol on an outpatient basis. While at outside facility, she was in the bathroom and became lightheaded. She does not recall other events while in the bathroom. Patient reportedly had a syncopal event and had brief CPR. I do not believe the patient ever lost a pulse. She did respond and did not require any intubation. Following the event, patient was reportedly found to be in A-fib RVR and then later was bradycardic. She was started on dopamine, and transferred to our facility. I believe the concern was for enlarging pe ricardial effusion. Follow-up chest CT at our facility showing resolution of gas within the pericardium seen on prior CTs, persistent small to moderate-sized pericardial effusion without tamponade features. Moderate to large left-sided pleural effusion. Patient does have Pleurx catheter in the pleural space. No obvious traumatic rib fractures or pneumothoraces. Patient is currently being evaluated in the intensive care unit. She is alert and oriented. No focal neurological deficits. No history of seizures, CVA/TIA, or prior syncopal events. Resting comfortably on 2 L/min nasal cannula. SpO2 is reading 100%. Patient states that she continues to drain her Pleurx catheter every 2 to 3 days. Gets anywhere from 50 to 200 cc of serous output when draining. She has not drained the catheter in a few days. She continues on dopamine which is infusing at 10 mcg/kg/min. Heart rate is actually tachycardic. This is sinus tachycardia, 106 bpm on bedside monitor. Blood pressure remains borderline 95/59 mmHg. She reports a mild amount of reproducible right-sided chest pain with deep breathing, coughing, or palpation. While in bed, denies any lightheadedness, heart palpitations, radiating chest pain, orthopnea. She does report some increased lower extremity swelling, bilaterally. No further episodes of vomiting. Intermittent nausea, however, is tolerating oral intake at this time. Denies any diarrhea, hematochezia, melena, hematemesis. She does report epigastric abdominal pain, which has been persistent over the last 2-1/2 months. Did have an EGD done August 31, 2024, which was fairly unremarkable in the report. She has been previously treated for colitis. CBC: WBC count 10.8, hemoglobin 8.8, hematocrit 28.7, platelets 133. CMP: Sodium 132, potassium 4.6, chloride 107, serum bicarb 17, BUN 26, creatinine 1.2, glucose 191. Magnesium 2. LFTs unremarkable. Normal saline infusing at 50 mL/h. 11/13. Dr. Vance took over care from Dr. Tolliver. Complaining of swelling of lower extremities. 11/14. Patient seen and examined. Blood work done this morning showed WBC 7.8, hemoglobin 9.3, platelet count 66, sodium 134, potassium 4.1, BUN 30, creatinine 0.93. Complaining of bodyaches. REVIEW OF SYSTEMS: CONSTITUTIONAL: No fever, no malaise,. CARDIOVASCULAR: No chest pain, no palpitations, no syncope. PULMONARY: No shortness of breath, no cough, GASTROINTESTINAL: No diarrhea, no nausea, no vomiting, no abdominal pain. NEUROLOGICAL: No headaches, no weakness, PHYSICAL EXAMINATION: GENERAL: The patient is alert and oriented x3, not in any acute distress. Well developed, well nourished. HEENT: Pupils are round and equally reacting to light. EOMI. No scleral icterus. No conjunctival pallor. Normocephalic, atraumatic. No pharyngeal erythema. No thyromegaly. CARDIOVASCULAR: S1 and S2 present. No murmurs, rubs, or gallops. PULMONARY: Diminished breath sound the bases bilaterally, Pleurx catheter seen ABDOMEN: Soft, nontender, nondistended, normoactive bowel sounds. No palpable organomegaly. MUSCULOSKELETAL: No joint swelling or deformity. EXTREMITIES: 1+ pitting edema lower extremities NEUROLOGICAL: Gross neurological examination did not reveal any focal deficits. SKIN: No rashes. Assessment and plan Pericardial effusion Chronic recurrent left pleural effusion requiring Pleurx catheter. Suspect syncopal event. Bradycardia Hypotension resolved. Acute kidney injury, resolved. Microcytic, hypochromic anemia. Coronary artery disease with previous PCI/stenting and subsequent CABG x 3 normed on August 09, 2024, followed by a prolonged and complicated hospital course. Left-sided/recurrent pleural effusion requiring multiple thoracentesis, and did undergo left thoracoscopy, talc pleurodesis, and placement of a left Pleurx catheter on 09/29/2024. History of hypertension. History of hyperlipidemia. History of diabetes mellitus. History of bilateral carotid artery stenosis, with a greater than 70% stenosis of the left carotid bifurcation and less than 50% stenosis to the right carotid bifurcation. Hstory of breast abscess. History of liver disease. History of alcohol abuse. Bipolar disorder/anxiety. Chronic marijuana use. Obesity, with a BMI of 37.7 kg/m. Monitor vital signs Monitor CBC Monitor CMP Continue telemetry monitoring Encourage use of incentive spirometer Aggressive bronchopulmonary hygiene I's and O's, daily weights, Lasix 40 mg daily Continue aspirin, Lipitor Continue prednisone, tapering per CT surgery Continue Aldactone Nephrology following CT surgery following Labs and medication were reviewed.. Continue same treatment. Continue with symptomatic treatment. Resume home medication. Monitor labs and vitals. DVT and GI prophylaxis. Further recommendations as per clinical course of the patient Dictation was produced using [employer] dictation software. please excuse any grammatical, word or spelling errors. Objective - Vital Signs Vital signs: Vital Signs Temp 97.5 F L 11/14/24 08:30 Pulse 66 12/15/24 08:30 Resp 18 11/14/24 08:30 BP 103/59 11/14/24 08:30 Pulse Ox 98 11/14/24 08:30 FiO2 Intake & Output 11/13/24 11/14/24 11/14/24 18:59 06:59 18:59 Intake Total 420 140 190 Output Total 800 500 300 Balance -380 -360 -110 Weight 102.4 kg Intake: IV 10 Invasive Line 6 10 Oral 420 140 180 Output: Urine 800 500 300 Other: Voiding Method Toilet Toilet Toilet - Labs CBC & Chem 7: 11/14/24 06:40 11/14/24 06:40 Labs: Abnormal Lab Results - Last 24 Hours (Table) 11/14/24 11/14/24 Range/Units 06:40 06:40 RBC 3.74 L (3.80-5.40) m/uL Hgb 9.3 L (11.4-16.0) gm/dL Hct 31.1 L (34.0-46.0) % MCH 24.8 L (25.0-35.0) pg MCHC 29.8 L (31.0-37.0) g/dL RDW 22.1 H (11.5-15.5) % Plt Count 66 L (150-450) k/uL Sodium 134 L (137-145) mmol/L Carbon Dioxide 35 H (22-30) mmol/L BUN 30 H (7-17) mg/dL Glucose 124 H (74-99) mg/dL Calcium 8.3 L (8.4-10.2) mg/dL AST 52 H (14-36) U/L ALT 61 H (4-34) U/L Alkaline Phosphatase 164 H (38-126) U/L Total Protein 5.1 L (6.3-8.2) g/dL Albumin 2.7 L (3.5-5.0) g/dL
--- NOTE | 2024-11-14 13:55 | P.PN ---
Subjective Patient is seen for follow-up for acute kidney injury. Renal function has improved and remains stable Serum creatinine at about 0.8- 0.9 mg/dL. Patient complained of increased lower extremity swelling. Florinef was discontinued and Lasix has been increased. Leg swelling has improved No complaints of shortness of breath. Objective - Vital Signs Vital signs: Vital Signs Temp 97.5 F L 11/14/24 08:30 Pulse 63 11/14/24 11:56 Resp 18 11/14/24 11:56 BP 88/56 11/14/24 11:56 Pulse Ox 97 11/14/24 11:56 FiO2 Intake & Output 11/13/24 11/14/24 11/14/24 18:59 06:59 18:59 Intake Total 420 140 370 Output Total 800 500 300 Balance -380 -360 70 Weight 102.4 kg Intake: IV 10 Invasive Line 6 10 Oral 420 140 360 Output: Urine 800 500 300 Other: Voiding Method Toilet Toilet Toilet - Exam Patient is awake, comfortable, no acute distress. 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 intact - Labs CBC & Chem 7: 11/14/24 06:40 11/14/24 06:40 Labs: Abnormal Lab Results - Last 24 Hours (Table) 11/14/24 11/14/24 Range/Units 06:40 06:40 RBC 3.74 L (3.80-5.40) m/uL Hgb 9.3 L (11.4-16.0) gm/dL Hct 31.1 L (34.0-46.0) % MCH 24.8 L (25.0-35.0) pg MCHC 29.8 L (31.0-37.0) g/dL RDW 22.1 H (11.5-15.5) % Plt Count 66 L (150-450) k/uL Sodium 134 L (137-145) mmol/L Carbon Dioxide 35 H (22-30) mmol/L BUN 30 H (7-17) mg/dL Glucose 124 H (74-99) mg/dL Calcium 8.3 L (8.4-10.2) mg/dL AST 52 H (14-36) U/L ALT 61 H (4-34) U/L Alkaline Phosphatase 164 H (38-126) U/L Total Protein 5.1 L (6.3-8.2) g/dL Albumin 2.7 L (3.5-5.0) g/dL Assessment and Plan Assessment: 1. Acute kidney injury secondary to ATN secondary to hypotension and hypovolemia improved with IV hydration. Resolved. UA benign. CT scan from October 2024 showed no evidence of hydronephrosis. Bilateral nonobstructing stones were noted. Baseline creatinine near 1. 2. Pericardial effusion status post pericardial window October 04, 2024. 3. Pleural effusions requiring thoracentesis and also history of left-sided VATS. 4. Coronary disease status post CABG in August 2024. 5. Diabetes mellitus. 6. Anemia. Iron deficiency noted. 7. Metabolic acidosis secondary to IV fluids. On oral bicarb. 8. Volume overload. Florinef has been discontinued. Maintained on IV Lasix. Plan: Continue with diuretics. Lasix can be switched to oral, 40 mg twice a day Okay for discharge from nephrology standpoint continue off of Florinef Consider decreasing/discontinuing prednisone Continue with midodrine. Discussed with patient regarding need to adjust diuretics based on weight and lower extremity edema.
[2024-11-14] MEDS: FUROSEMIDE 40 MG TAB PO SCH (20:39)
[2024-11-14] MEDS ORDERED: FUROSEMIDE 10 MG/ML 4 ML VIAL IV SCH (21:00)
[2024-11-15] MEDS ORDERED: FUROSEMIDE 40 MG TAB PO SCH (09:00)
[2024-11-15 09:06] VITALS: BMI 39.9
--- NOTE | 2024-11-15 10:15 | P.PN ---
Subjective Patient is seen in follow-up for acute kidney injury. Patient was transferred from [facility] due to pericardial effusion. Creatinine was up to 2.4 this admission and is now back to baseline. On oral Lasix. Admits to good urine output. Vital signs are stable. General: No acute distress. HEENT: Head exam is unremarkable. LUNGS: No audible rhonchi or wheezes. HEART: Rate and Rhythm are regular. ABDOMEN: Nontender. EXTREMITITES: 1+ edema. Objective - Vital Signs Vital signs: Vital Signs Temp 98.3 F 11/15/24 04:00 Pulse 63 11/15/24 08:00 Resp 18 11/15/24 08:00 BP 111/65 11/15/24 08:00 Pulse Ox 98 11/15/24 08:00 FiO2 Intake & Output 11/14/24 11/15/24 11/15/24 18:59 06:59 18:59 Intake Total 620 540 Output Total 300 Balance 320 540 Weight 102.3 kg 102.3 kg Intake: IV 20 Invasive Line 6 20 Oral 600 540 Output: Urine 300 Other: Voiding Method Toilet Toilet - Labs CBC & Chem 7: 11/14/24 06:40 11/14/24 06:40 Assessment and Plan Plan: Assessment: 1. Acute kidney injury secondary to ATN secondary to hypotension and hypovolemia improved with IV hydration. Resolved. UA benign. CT scan from October 2024 showed no evidence of hydronephrosis. Bilateral nonobstructing stones were noted. Baseline creatinine near 1. 2. Pericardial effusion status post pericardial window October 04, 2024. 3. Pleural effusions requiring thoracentesis and also history of left-sided VATS. 4. Coronary disease status post CABG in August 2024. 5. Diabetes mellitus. 6. Anemia. Iron deficiency noted. Status post IV iron. 7. Metabolic acidosis secondary to IV fluids. Status post bicarb. Resolved. 8. Volume overload. Improved with diuresis. 9. Hypervolemic hyponatremia. Plan: Maintain midodrine. Maintain Lasix. Add fluid restriction. Advised patient to maintain low-salt diet and fluid restriction of less than 50 to 55 ounces per day upon discharge. Advised to monitor her weight closely at home and to notify physician if develops worsening edema or gains more than 3 pounds in 1 week duration. Follow-up outpatient 1 week postdischarge.
[2024-11-15] MEDS ORDERED: ZINC OXIDE PASTE (Z-GUARD) 1 APPLIC TOPICAL PRN (17:55)
--- NOTE | 2024-11-16 10:01 | P.PN ---
Subjective Patient is seen in follow-up for acute kidney injury. Patient was transferred from [facility] due to pericardial effusion. Creatinine was up to 2.4 this admission and is now back to baseline. On oral Lasix. Admits to good urine output. Vital signs are stable. General: No acute distress. HEENT: Head exam is unremarkable. LUNGS: No audible rhonchi or wheezes. HEART: Rate and Rhythm are regular. ABDOMEN: Nontender. EXTREMITITES: 1+ edema. Objective - Vital Signs Vital signs: Vital Signs Temp 98.2 F 11/16/24 03:39 Pulse 61 11/16/24 03:39 Resp 18 11/16/24 03:39 BP 91/59 11/16/24 03:39 Pulse Ox 96 11/16/24 03:39 FiO2 Intake & Output 11/15/24 11/16/24 11/16/24 18:59 06:59 18:59 Intake Total 358 240 118 Output Total 500 1700 Balance -142 -1460 118 Weight 102.3 kg 101.1 kg Intake: Oral 358 240 118 Output: Drainage 500 500 Left Chest 500 500 Urine 1200 Other: Voiding Method Toilet Toilet # Voids 1 - Labs CBC & Chem 7: 11/14/24 06:40 11/14/24 06:40 Assessment and Plan Plan: Assessment: 1. Acute kidney injury secondary to ATN secondary to hypotension and hypovolem ia improved with IV hydration. Resolved. UA benign. CT scan from October 2024 showed no evidence of hydronephrosis. Bilateral nonobstructing stones were noted. Baseline creatinine near 1. 2. Pericardial effusion status post pericardial window October 04, 2024. 3. Pleural effusions requiring thoracentesis and also history of left-sided VATS. 4. Coronary disease status post CABG in August 2024. 5. Diabetes mellitus. 6. Anemia. Iron deficiency noted. Status post IV iron. 7. Metabolic acidosis secondary to IV fluids. Status post bicarb. Resolved. 8. Volume overload. Improved with diuresis. 9. Hypervolemic hyponatremia. Improved. Plan: Maintain midodrine. Maintain Lasix. Maintain fluid restriction. Advised patient to maintain low-salt diet and fluid restriction of less than 50 to 55 ounces per day upon discharge. Advised to monitor her weight closely at home and to notify physician if develops worsening edema or gains more than 3 pounds in 1 week duration. Follow-up outpatient 1 week postdischarge.
[2024-11-16 10:35] VITALS: TEMP 97.8
[2024-11-16 12:18] VITALS: BP 103/68; PULSE 63; RESP 16
[2024-11-16] MEDS ORDERED: ETODOLAC 400 MG TAB PO SCH (21:00)
--- NOTE | 2024-11-17 01:34 | DS ---
DISCHARGE SUMMARY CHIEF COMPLAINT: 1. Acute on chronic congestive heart failure. 2. Atherosclerotic cardiomyopathy. 3. Coronary artery disease. 4. Pericardial effusion. 5. Left pleural effusion. 6. CKD. HISTORY OF PRESENT ILLNESS AND PHYSICAL EXAMINATION: Details of this lady's History and Physical can be found in the initial workup. LABORATORY STUDIES: While she is in the hospital, she had laboratory studies, details of which can be found in the laboratory section of her chart. COURSE IN THE HOSPITAL: After admission and transfer from [facility] [place], she was placed in ICU. She was seen and followed by Cardiology and Cardiac Surgery. She was also followed by Pulmonology/Intensive Medicine. Nephrology was also involved in her case. When she initially was admitted, there was concern that her pericardial window was not functioning. It turned out that it was. Her heart failure was managed by Cardiology. She also received frequent drainage of her chronic left pleural effusion. She started to develop peripheral edema from her kidney disease and this was eventually managed by Nephrology. She was finally deemed stable enough to be able to go home on the and she will follow up with Cardiology, Cardiac Surgery, Nephrology, Pulmonology, and my office. FINAL DIAGNOSES: 1. Acute congestive heart failure. 2. Chronic congestive heart failure. 3. Atherosclerotic cardiomyopathy. 4. Coronary artery disease, status post coronary artery bypass grafting. 5. Pericardial effusion, status post pericardial window. 6. Left pleural effusion. 7. Chronic kidney disease. 8. Peripheral edema. OPERATIONS: None. CONSULTATIONS: Cardiac Surgery, Cardiology, Pulmonology/Intensive Medicine, and Nephrology. MMODL / IJN: [id number] /
--- NOTE | 2024-11-18 07:25 | PN ---
PROGRESS NOTE DATE OF SERVICE: 11/15/2024 CHIEF COMPLAINT: 1. Coronary artery disease and atherosclerotic cardiomyopathy with congestive heart failure. 2. Pericardial effusion, status post pericardial window. 3. Left pleural effusion. 4. Renal failure. HISTORY OF PRESENT ILLNESS: This lady seems to be slowly improving. Edema is disappearing. She is feeling fairly well. Nephrology expects that she will be able to go home in the next day or 2. PHYSICAL EXAMINATION: CHEST: Demonstrates right side to be clear. CARDIAC: Unremarkable. ABDOMEN: Soft and nontender. IMPRESSION: 1. Atherosclerotic cardiomyopathy. 2. Coronary artery disease. 3. Pericardial effusion. 4. Left pleural effusion. 5. Renal failure. PLAN: Probably home in the next day or 2 when she is cleared by Nephrology. MMODL / FELICITAN: [id number] /
== END 2024-11-16 13:59 | disposition home health service (06) | DRG 291 ==
LOC: 2SICU 14:35 → 3SCARD 11-05 22:38
PROVIDERS: ADMIT Family Medicine; ATTEND Family Medicine
PROC: 3E043XZ Introduction of Vasopressor into Central Vein, Percutaneous Approach (ICD-10-PCS; principal; 2024-11-01)
DX: I13.0 Hypertensive heart and chronic kidney disease with heart failure and stage 1 through stage 4 chronic kidney disease, or unspecified chronic kidney disease (principal); I46.9 Cardiac arrest, cause unspecified; J96.01 Acute respiratory failure with hypoxia; N17.0 Acute kidney failure with tubular necrosis; I31.4 Cardiac tamponade; I31.39 Other pericardial effusion (noninflammatory); E87.1 Hypo-osmolality and hyponatremia; E87.20 Acidosis, unspecified; J98.11 Atelectasis; R57.9 Shock, unspecified; I50.9 Heart failure, unspecified; D50.9 Iron deficiency anemia, unspecified; D69.6 Thrombocytopenia, unspecified; E11.22 Type 2 diabetes mellitus with diabetic chronic kidney disease; E66.9 Obesity, unspecified; F10.10 Alcohol abuse, uncomplicated; K70.30 Alcoholic cirrhosis of liver without ascites; F31.9 Bipolar disorder, unspecified; J44.9 Chronic obstructive pulmonary disease, unspecified; Z68.37 Body mass index [BMI] 37.0-37.9, adult; N18.9 Chronic kidney disease, unspecified; Z95.1 Presence of aortocoronary bypass graft; Z95.820 Peripheral vascular angioplasty status with implants and grafts; E86.1 Hypovolemia; R00.1 Bradycardia, unspecified; E87.6 Hypokalemia; I42.9 Cardiomyopathy, unspecified; F41.9 Anxiety disorder, unspecified; M19.90 Unspecified osteoarthritis, unspecified site; I25.10 Atherosclerotic heart disease of native coronary artery without angina pectoris; I48.91 Unspecified atrial fibrillation; Z79.82 Long term (current) use of aspirin; E78.5 Hyperlipidemia, unspecified; Z79.899 Other long term (current) drug therapy; Z86.16 Personal history of COVID-19; Z87.01 Personal history of pneumonia (recurrent); Z87.442 Personal history of urinary calculi; Z87.891 Personal history of nicotine dependence; Z95.5 Presence of coronary angioplasty implant and graft; Z28.21 Immunization not carried out because of patient refusal; Z88.8 Allergy status to other drugs, medicaments and biological substances
CPT/HCPCS: 71045; 71046; 71250; 80048; 80053; 81003; 82533; 82728; 83540; 83550; 83735; 85025; 85027; 93308

== ENCOUNTER 2024-12-07 16:17 | Emergency (ER) | payer BC, OTHER ==
[2024-12-07 17:27] LABS: Anisocytosis Moderate; Basophils % (A) 1 %; Eosinophils # (A) 0.3 k/uL (0-0.7); Eosinophils % (A) 6 %; HCT 32.6 % (34.0-46.0); HGB 9.9 gm/dL (11.4-16.0); Hypochromasia Marked; Lymphocytes # (A) 1.2 k/uL (1.0-4.8); Lymphocytes % (A) 27 %; MCH 25.3 pg (25.0-35.0); MCHC 30.5 g/dL (31.0-37.0); MCV 82.9 fL (80.0-100.0); Mean Platelet Volume 9.7; Microcytosis Slight; Monocytes # (A) 0.4 k/uL (0-1.0); Monocytes % (A) 8 %; Neutrophils # (A) 2.5 k/uL (1.3-7.7); Neutrophils % (A) 56 %; RBC 3.93 m/uL (3.80-5.40); RDW 20.3 % (11.5-15.5); WBC 4.4 k/uL (3.8-10.6)
--- NOTE | 2024-12-07 17:29 | XR ---
EXAMINATION TYPE: XR chest 2V DATE OF EXAM: 12/07/2024 5:22 PM COMPARISON: Chest radiographs from 11/08/2024 CLINICAL INDICATION: Female, 49 years old with history of Chest Pain; [facility] TECHNIQUE: XR chest 2V Frontal and lateral views of the chest. FINDINGS: Lungs/Pleura: There is no evidence of pleural effusion, focal consolidation, or pneumothorax. Pulmonary vascularity: Unremarkable. Heart/mediastinum: Cardiomediastinal silhouette is unremarkable. Atherosclerotic calcifications are seen in the aorta. Left atrial appendage occlusion device is present. Musculoskeletal: No acute osseous pathology. Midline sternotomy wires and surgical clips project over the mediastinum. Other findings: None Lines/Tubes: Left thoracotomy tube is present without evidence of pneumothorax. IMPRESSION: Left thoracotomy tube without evidence for pneumothorax. [facility], , 12/07/2024 5:27 PM
[2024-12-07 17:31] LABS: Platelet Count 145 k/uL (150-450)
[2024-12-07 17:40] LABS: ALT 59 U/L (4-34); AST 65 U/L (14-36); African American GFR (CKD) >90 (>60 ml/min/1.73 sqM); Alkaline Phosphatase 212 U/L (38-126); Anion Gap 7 mmol/L; Blood Urea Nitrogen 23 mg/dL (7-17); Calcium 8.5 mg/dL (8.4-10.2); Carbon Dioxide 24 mmol/L (22-30); Chloride 110 mmol/L (98-107); Glucose 152 mg/dL (74-99); Magnesium 1.7 mg/dL (1.6-2.3); Non-African American GFR(CKD) >90 (>60 ml/min/1.73 sqM); Potassium 4.3 mmol/L (3.5-5.1); Sodium 141 mmol/L (137-145); Total Protein 6.2 g/dL (6.3-8.2)
[2024-12-07 17:53] LABS: INR 1.1 (<1.2); Partial Thromboplastin Time 25.6 sec (22.0-30.0); Prothrombin Time 11.8 sec (10.0-12.5)
--- NOTE | 2024-12-07 17:58 | ED ---
Chest Pain HPI - General Chief Complaint: Chest Pain Stated Complaint: Chest Pain Time Seen by Provider: 12/07/24 17:46 Source: patient, RN notes reviewed, old records reviewed Mode of arrival: ambulatory Limitations: no limitations - History of Present Illness Initial Comments: This is a 49-year-old female to the ER today for chest pain. Patient has c omplicated recent medical history including coronary artery bypass grafting and persistent left pleural effusion which she has Pleurx catheter, patient chest pain has been going on for 3 days worse with exertion it does appear to be chest wall type pain but it has been persistent causing her worry today and bring her to the ER MD Complaint: chest pain -: days(s) Onset: during rest Pain Location: substernal, left chest Pain Radiation: none Severity: moderate Severity scale (1-10): 7 Quality: aching Consistency: constant Improves With: nothing Worsens With: nothing Context: recent surgery Anginal Symptoms: dyspnea Other Symptoms: palpitations Treatments Prior to Arrival: none - Related Data Home Medications Medication Instructions Recorded Confirmed Atorvastatin Calcium [Lipitor] 40 mg PO DAILY 09/15/24 12/07/24 Gabapentin [Neurontin] 300 mg PO HS 09/23/24 12/07/24 Losartan [Cozaar] 12.5 mg PO DAILY 10/03/24 12/07/24 Metoprolol Tartrate [Lopressor] 25 mg PO BID 11/01/24 12/07/24 Omeprazole 20 mg PO DAILY 12/07/24 12/07/24 Previous Rx's Medication Instructions Recorded Aspirin 81 mg PO DAILY tab 10/01/24 Ondansetron Odt [Zofran ODT] 4 mg PO Q8HR PRN #20 tab 10/14/24 Petrolat,White/Shlomo/8-Hydroxyqu 1 gm TOPICAL TID PRN gm 10/14/24 [Bag [place]] Etodolac [Lodine] 400 mg PO BID #60 tab 11/16/24 Midodrine [ProAmatine] 10 mg PO AC-TID #90 tab 11/16/24 Nystatin 100,000 Unit/gm Powd 1 applic TOPICAL BID PRN 30 Days 11/16/24 [Mycostatin Powder] #10 each Allergies Allergy/AdvReac Type Severity Reaction Status Date / Time capsaicin Allergy Rash/Hives/ Verified 12/07/24 20:44 Swelling Review of Systems ROS Statement: Those systems with pertinent positive or pertinent negative responses have been documented in the HPI. ROS Other: All systems not noted in ROS Statement are negative. Past Medical History Past Medical History: Atrial Fibrillation, Coronary Artery Disease (CAD), Diabetes Mellitus, GERD/Reflux, Hyperlipidemia, Hypertension, Liver Disease, Osteoarthritis (OA), Pneumonia, Syncope Additional Past Medical History / Comment(s): Hx pneumonia yrs ago. Hx kidney stones. Diet controlled diabetic. Seasonal allergies. Left internal carotid artery stenosis. Cirrhosis of liver. No menses in 4 1/2 yrs, states body does not make enough Estrogen. Recurrent pleural effusions. Pericardial effusion History of Any Multi-Drug Resistant Organisms: None Reported Past Surgical History: Appendectomy, Breast Surgery, Cholecystectomy, Coronary Bypass/CABG, Heart Catheterization With Stent, Orthopedic Surgery, Tubal Ligation Additional Past Surgical History / Comment(s): Right wrist carpal tunnel surgery, dental surgery- teeth removed, left breast abcess I&D X3, right breast abcess I&D X2, left ankle surgery, triple CABG 08/09/2024, multiple thoracentesis. Cardiac sents x2 and bilateral carotid stents. Left VATS with talc pleurodesis and placement of left-sided pleurx catheter 09/29/[address] Ortiz; subxiphoid pericardial window 10/04/2024 Past Anesthesia/Blood Transfusion Reactions: No Reported Reaction, Family History of Problems w/ Anesthesia Additional Past Anesthesia/Blood Transfusion Reaction / Comment(s): No blood transfusion to date. Mom stopped breathing during a surgery and was resuscitated . Date of Last Stent Placement:: 07/30/24 Past Psychological History: Anxiety, Bipolar, Depression Smoking Status: Former smoker Past Alcohol Use History: None Reported Past Drug Use History: Marijuana - Past Family History Mother Family Medical History: Cancer Additional Family Medical History / Comment(s): schizoaffective disorder Father History Unknown: Yes Family Medical History: Unable to Obtain Additional Family Medical History / Comment(s): Patient did not know her father General Exam Limitations: no limitations General appearance: alert, in no apparent distress Head exam: Present: atraumatic, normocephalic, normal inspection Eye exam: Present: normal appearance, PERRL, EOMI. Absent: scleral icterus, conjunctival injection, periorbital swelling ENT exam: Present: normal exam, mucous membranes moist Neck exam: Present: normal inspection. Absent: tenderness, meningismus, lymphadenopathy Respiratory exam: Present: normal lung sounds bilaterally. Absent: respiratory distress, wheezes, rales, rhonchi, stridor Cardiovascular Exam: Present: regular rate, normal rhythm, normal heart sounds. Absent: systolic murmur, diastolic murmur, rubs, gallop, clicks GI/Abdominal exam: Present: soft, normal bowel sounds. Absent: distended, tenderness, guarding, rebound, rigid Extremities exam: Present: normal inspection, full ROM, normal capillary refill. Absent: tenderness, pedal edema, joint swelling, calf tenderness Back exam: Present: normal inspection Neurological exam: Present: alert, oriented X3, CN II-XII intact Psychiatric exam: Present: normal affect, normal mood Skin exam: Present: warm, dry, intact, normal color. Absent: rash Course Vital Signs 12/07/24 12/07/24 12/07/24 16:34 18:09 18:10 Temperature 98.3 F Pulse Rate 86 92 Pulse Rate [ 90 Acid Tank Cleaner ] Respiratory 20 15 Rate Blood Pressure 146/92 O2 Sat by Pulse 99 Oximetry 12/07/24 20:04 Temperature 98.4 F Pulse Rate 89 Pulse Rate [ Acid Tank Cleaner ] Respiratory 14 Rate Blood Pressure 121/62 O2 Sat by Pulse Oximetry - Reevaluation(s) Reevaluation #1: 12/07/24 19:34 Medical records reviewed Reevaluation #2: 12/07/24 19:34 Patient symptoms unchanged although pain is improved Reevaluation #3: 12/07/24 19:34 Patient informed of results questions answered Reevaluation #4: Was pt. sent in by a medical professional or institution (, PA, ENVIRONMENTAL ENGINEER SCIENTIST, urgent care, hospital, or half-way...) When possible be specific @ -no Did you speak to anyone other than the patient for history (EMS, parent, family, police, friend...)? What history was obtained from this source @ -no Did you review nursing and triage notes (agree or disagree)? Why? @ -agree Are old charts reviewed (outside hosp., previous admission, EMS record, old EKG, old radiological studies, urgent care reports/EKG's, half-way records)? Report findings @ -yes Differential Diagnosis (chest pain, altered mental status, abdominal pain women, abdominal pain men, vaginal bleeding, weakness, fever, dyspnea, syncope, headache, dizziness, GI bleed, back pain, seizure, CVA, palpatations, mental health, musculoskeletal)? @ -prior EKG interpreted by me (3pts min.). @ -yes X-rays interpreted by me (1pt min.). @ -yes negative for acute disease CT interpreted by me (1pt min.). @ -no U/S interpreted by me (1pt. min.). @ -no What testing was considered but not performed or refused? (CT, X-rays, U/S, labs)? Why? @ -none What meds were considered but not given or refused? Why? @ -none Did you discuss the management of the patient with other professionals (professionals i.e. , PA, ENVIRONMENTAL ENGINEER SCIENTIST, lab, RT, psych nurse, social services technician, picture engraver, teacher, national service officer, showcase maker)? Give summary @ -no Was smoking cessation discussed for >3mins.? @ -no Was critical care preformed (if so, how long)? @ -no Were there social determinants of health that impacted care today? How? (Homelessness, low income, unemployed, alcoholism, drug addiction, transportation, low edu. Level, literacy, decrease access to med. care, snf, rehab)? @ -none Was there de-escalation of care discussed even if they declined (Discuss DNR or withdrawal of care, Hospice)? DNR status @ -no What co-morbidities impacted this encounter? (DM, HTN, Smoking, COPD, CAD, Cancer, CVA, ARF, Chemo, Hep., AIDS, mental health diagnosis, sleep apnea, morbid obesity)? @ -none Was patient admitted / discharged? Hospital course, mention meds given and route, prescriptions, significant lab abnormalities, going to OR and other pertinent info. @ - Undiagnosed new problem with uncertain prognosis? @ -no Drug Therapy requiring intensive monitoring for toxicity (Heparin, Nitro, Insulin, Cardizem)? @ -no Were any procedures done? @ -no Diagnosis/symptom? @ - Acute, or Chronic, or Acute on Chronic? @ -Acute Uncomplicated (without systemic symptoms) or Complicated (systemic symptoms)? @ -Complicated Side effects of treatment? @ -no Exacerbation, Progression, or Severe Exacerbation? @ -exacerbation Poses a threat to life or bodily function? How? (Chest pain, [place], [place], pneumonia, PE, COPD, DKA, ARF, appy, cholecystitis, CVA, Diverticulitis, Homicidal, Suicidal, threat to staff... and all critical care pts) @ -yes Reevaluation #5: Differential Chest Pain: Stable Angina, Unstable Angina, STEMI, NSTEMI Aortic Dissection, Pneumothorax, Musculoskeletal, Esophageal Spasm GERD, Cholecystitis, Pancreatitis, Zoster, this is not meant to be an all-inclusive list. Chest Pain MDM - MDM 49 female to the ER with chest pain postoperative chest pain. Troponin negative x 2 patient feels well x-ray is negative patient can be discharged home Disposition Clinical Impression: Chest pain Disposition: HOME SELF-CARE Condition: Fair Instructions (If sedation given, give patient instructions): Chest Pain (ED) Is patient prescribed a controlled substance at d/c from ED?: No Referrals: Sara Velarde MD [Primary Care Provider] - 1-2 days Time of Disposition: 19:30
[2024-12-07] MEDS: SODIUM CHLORIDE 0.9% 500 ML 500 ML IV STA (18:18)
[2024-12-07] MEDS: KETOROLAC 15 MG/ML 1 ML VIAL IVP STA (18:19)
[2024-12-07] MEDS: MORPHINE SULFATE 4 MG/ML SYRINGE IVP STA (18:20)
--- NOTE | 2024-12-07 20:58 | CT ---
EXAMINATION TYPE: CT angio chest DATE OF EXAM: 12/07/2024 8:27 PM COMPARISON: None. CLINICAL INDICATION: Female, 49 years old with history of pe, chest pain TECHNIQUE: CT of the chest is performed on a spiral scan at 2 mm thick sections. Study is performed with intravenous contrast timed for evaluation for pulmonary embolism. This will limit additional po rtions of the evaluation. 3-D MIP images reconstructed by the technologist are reviewed on the compu ter in the coronal and sagittal planes. Contrast used:100ml mL of Isovue 370 with IV Contrast, (none if empty) Oral contrast used: (none if empty) CT DLP: 366 mGycm, Automated exposure control for dose reduction was used. FINDINGS: No persistent filling defects are evident to suggest an acute pulmonary embolism. No mediastinal or hilar adenopathy enlarged by CT criteria is evident. The ascending aorta diameter at the level of the main pulmonary artery is 2.9 cm. The main pulmonary artery diameter at the bifurcation is 2.8 cm. There is a small left pleural effusion. Limited CT sections were through the upper abdomen. Upper abdomen appears unremarkable. IMPRESSION: 1. No acute pulmonary embolism. 2. Small left pleural effusion [facility], Workstation: [id number], 12/07/2024 8:56 PM
[2024-12-07] MEDS: HYDROmorphone 0.5 MG/0.5 ML SYRINGE IVP STA (21:40)
[2024-12-07 22:16] VITALS: BP 129/76; PULSE 87; RESP 16; TEMP 97.9
[2024-12-07] MEDS: ACET/COD 300 MG/30 MG STARTER PACK 6 TAB BTL PO STA (22:16)
== END 2024-12-07 22:19 | disposition home or self-care (01) ==
LOC: EC 16:17
DX: J90 Pleural effusion, not elsewhere classified (principal); Z87.891 Personal history of nicotine dependence; Z88.8 Allergy status to other drugs, medicaments and biological substances
CPT/HCPCS: 36415; 93005; 85379; 83880; 80053; 83735; 84484; 85025; 85610; 85730; 71046; 71275; 99285; 96374; 96375 ×2; J2270; J1885; J1171; Q9967

== ENCOUNTER 2024-12-11 13:24 | Emergency (ER) | payer OTHER ==
[2024-12-11 13:58] VITALS: RESP 18
--- NOTE | 2024-12-11 14:21 | ED ---
Female Urogenital HPI - General Chief complaint: Urogenital Stated complaint: Abd/back pain Time Seen by Provider: 12/11/24 13:40 Source: patient, RN notes reviewed Mode of arrival: wheelchair Limitations: no limitations - History of Present Illness Initial comments: This is a 49-year-old female with history of nephrolithiasis and triple bypass presenting with left flank pain (07/10) x 2 days. Patient states pain radiates to her left lower quadrant with decreased urinary output. States pain was initially intermittent but now constant, described as burning/stabbing and squeezing. Onset/Timin -: days(s) - Related Data Home Medications Medication Instructions Recorded Confirmed Atorvastatin Calcium [Lipitor] 40 mg PO DAILY 09/15/24 12/07/24 Gabapentin [Neurontin] 300 mg PO HS 09/23/24 12/07/24 Losartan [Cozaar] 12.5 mg PO DAILY 10/03/24 12/07/24 Metoprolol Tartrate [Lopressor] 25 mg PO BID 11/01/24 12/07/24 Omeprazole 20 mg PO DAILY 12/07/24 12/07/24 Previous Rx's Medication Instructions Recorded Aspirin 81 mg PO DAILY tab 10/01/24 Ondansetron Odt [Zofran ODT] 4 mg PO Q8HR PRN #20 tab 10/14/24 Petrolat,White/Shlomo/8-Hydroxyqu 1 gm TOPICAL TID PRN gm 10/14/24 [Bag [place]] Etodolac [Lodine] 400 mg PO BID #60 tab 11/16/24 Midodrine [ProAmatine] 10 mg PO AC-TID #90 tab 11/16/24 Nystatin 100,000 Unit/gm Powd 1 applic TOPICAL BID PRN 30 Days 11/16/24 [Mycostatin Powder] #10 each Allergies Allergy/AdvReac Type Severity Reaction Status Date / Time capsaicin Allergy Rash/Hives/ Verified 12/11/24 13:54 Swelling Review of Systems ROS Statement: Those systems with pertinent positive or pertinent negative responses have been documented in the HPI. ROS Other: All systems not noted in ROS Statement are negative. Past Medical History Past Medical History: Atrial Fibrillation, Coronary Artery Disease (CAD), Diabetes Mellitus, GERD/Reflux, Hyperlipidemia, Hypertension, Liver Disease, Osteoarthritis (OA), Pneumonia, Renal Disease, Syncope Additional Past Medical History / Comment(s): Hx pneumonia yrs ago. Hx kidney st ones. Diet controlled diabetic. Seasonal allergies. Left internal carotid artery stenosis. Cirrhosis of liver. No menses in 4 1/2 yrs, states body does not make enough Estrogen. Recurrent pleural effusions. Pericardial effusion History of Any Multi-Drug Resistant Organisms: None Reported Past Surgical History: Appendectomy, Breast Surgery, Cholecystectomy, Coronary Bypass/CABG, Heart Catheterization With Stent, Orthopedic Surgery, Tubal Ligat ion Additional Past Surgical History / Comment(s): Right wrist carpal tunnel surgery, dental surgery- teeth removed, left breast abcess I&D X3, right breast abcess I&D X2, left ankle surgery, triple CABG 08/09/2024, multiple thoracentesis. Cardiac sents x2 and bilateral carotid stents. Left VATS with talc pleurodesis and placement of left-sided pleurx catheter 09/29/[address] Ortiz; subxiphoid pericardial window 10/04/2024 Past Anesthesia/Blood Transfusion Reactions: No Reported Reaction, Family History of Problems w/ Anesthesia Additional Past Anesthesia/Blood Transfusion Reaction / Comment(s): No blood transfusion to date. Mom stopped breathing during a surgery and was resuscitated. Date of Last Stent Placement:: 07/30/24 Past Psychological History: Anxiety, Bipolar, Depression Smoking Status: Former smoker Past Alcohol Use History: None Reported Past Drug Use History: None Reported, Marijuana - Past Family History Mother Family Medical History: Cancer Additional Family Medical History / Comment(s): schizoaffective disorder Father History Unknown: Yes Family Medical History: Unable to Obtain Additional Family Medical History / Comment(s): Patient did not know her father General Exam Limitations: no limitations General appearance: alert, in no apparent distress Head exam: Present: atraumatic, normocephalic, normal inspection Eye exam: Present: normal appearance, PERRL, EOMI. Absent: scleral icterus, conjunctival injection, periorbital swelling ENT exam: Present: normal exam, mucous membranes moist Neck exam: Present: normal inspection. Absent: tenderness, meningismus, lymphadenopathy Respiratory exam: Present: normal lung sounds bilaterally. Absent: respiratory distress, wheezes, rales, rhonchi, stridor Cardiovascular Exam: Present: regular rate, normal rhythm, normal heart sounds. Absent: systolic murmur, diastolic murmur, rubs, gallop, clicks GI/Abdominal exam: Present: soft, tenderness (LLQ and suprapubic tenderness without guarding), normal bowel sounds. Absent: distended, guarding, rebound, rigid Extremities exam: Present: normal inspection, full ROM, normal capillary refill. Absent: tenderness, pedal edema, joint swelling, calf tenderness Back exam: Present: normal inspection, tenderness (Left flank tenderness), CVA tenderness (L). Absent: CVA tenderness (R) Neurological exam: Present: alert, oriented X3, CN II-XII intact Psychiatric exam: Present: normal affect, normal mood Skin exam: Present: warm, dry, intact, normal color. Absent: rash Course Vital Signs 12/11/24 12/11/24 13:54 17:11 Temperature 98.7 F Pulse Rate 84 76 Respiratory 18 18 Rate Blood Pressure 110/71 128/77 O2 Sat by Pulse 100 99 Oximetry Medical Decision Making - Medical Decision Making Was pt. sent in by a medical professional or institution (, PA, AS400 ANALYST, urgent care, hospital, or half-way...) When possible be specific @ -[No] Did you speak to anyone other than the patient for history (EMS, parent, family, police, friend...)? What history was obtained from this source @ -[No] Did you review nursing and triage notes (agree or disagree)? Why? @ -[I reviewed and agree with nursing and triage notes] Were old charts reviewed (outside hosp., previous admission, EMS record, old EKG, old radiological studies, urgent care reports/EKG's, half-way records)? Report findings @ -[No old charts were reviewed] Differential Diagnosis (chest pain, altered mental status, abdominal pain women, abdominal pain men, vaginal bleeding, weakness, fever, dyspnea, syncope, headache, dizziness, GI bleed, back pain, seizure, CVA, palpatations, mental health, musculoskeletal)? @ -Differential Back Pain: Strain, zoster, cauda equina syndrome, epidural abscess, vertebral osteomyelitis, discitis, fracture, subluxation, disc herniation, DJD, spinal stenosis, dissection, AAA, pancreatitis, peptic ulcer disease, pyelonephritis, kidney stone, this is not meant to be an all-inclusive list. EKG interpreted by me (3pts min.). @ -[As above] X-rays interpreted by me (1pt min.). @ -[None done] CT interpreted by me (1pt min.). @ -[None done] U/S interpreted by me (1pt. min.). @ -[None done] What testing was considered but not performed or refused? (CT, X-rays, U/S, labs)? Why? @ -[None] What meds were considered but not given or refused? Why? @ -[None] Did you discuss the management of the patient with other professionals (professionals i.e. DrVi, PA, AS400 ANALYST, lab, RT, psych nurse, social contact worker, compressed air pile driver operator, teacher, grant officer, case finisher)? Give summary @ -[No] Was smoking cessation discussed for >3mins.? @ -[No] Was critical care preformed (if so, how long)? @ -[No] Were there social determinants of health that impacted care today? How? (Homelessness, low income, unemployed, alcoholism, drug addiction, transportati on, low edu. Level, literacy, decrease access to med. care, intermediate, rehab)? @ -[No] Was there de-escalation of care discussed even if they declined (Discuss DNR or withdrawal of care, Hospice)? DNR status @ -[No] What co-morbidities impacted this encounter? (DM, HTN, Smoking, COPD, CAD, Cancer, CVA, ARF, Chemo, Hep., AIDS, mental health diagnosis, sleep apnea, morbid obesity)? @ -[None] Was patient admitted / discharged? Hospital course, mention meds given and route, prescriptions, significant lab abnormalities, going to OR and other pertinent info. @ -[hospital course] Undiagnosed new problem with uncertain prognosis? @ -[No] Drug Therapy requiring intensive monitoring for toxicity (Heparin, Nitro, Insulin, Cardizem)? @ -[No] Were any procedures done? @ -[No] Diagnosis/symptom? @ -[default] Acute, or Chronic, or Acute on Chronic? @ -Acute Uncomplicated (without systemic symptoms) or Complicated (systemic symptoms)? @ -Complicated Side effects of treatment? @ -[No] Exacerbation, Progression, or Severe Exacerbation? @ -[No] Poses a threat to life or bodily function? How? (Chest pain, [place], [place], pneumonia, PE, COPD, DKA, ARF, appy, cholecystitis, CVA, Diverticulitis, Homicidal, Suicidal, threat to staff... and all critical care pts) @ -[No] - Lab Data Result diagrams: 12/11/24 14:50 12/11/24 14:50 Lab Results 12/11/24 12/11/24 12/11/24 Range/Units 14:50 14:50 17:09 WBC 4.2 (3.8-10.6) k/uL RBC 3.91 (3.80-5.40) m/uL Hgb 9.6 L (11.4-16.0) gm/dL Hct 31.7 L (34.0-46.0) % MCV 81.0 (80.0-100.0) fL MCH 24.6 L (25.0-35.0) pg MCHC 30.3 L (31.0-37.0) g/dL RDW 19.8 H (11.5-15.5) % Plt Count 118 L (150-450) k/uL MPV 10.5 Neutrophils % 49 % Lymphocytes % 32 % Monocytes % 11 % Eosinophils % 5 % Basophils % 1 % Neutrophils # 2.1 (1.3-7.7) k/uL Lymphocytes # 1.4 (1.0-4.8) k/uL Monocytes # 0.5 (0-1.0) k/uL Eosinophils # 0.2 (0-0.7) k/uL Basophils # 0.0 (0-0.2) k/uL Hypochromasia Marked Anisocytosis Slight Microcytosis Slight Sodium 139 (137-145) mmol/L Potassium 3.9 (3.5-5.1) mmol/L Chloride 109 H (98-107) mmol/L Carbon Dioxide 21 L (22-30) mmol/L Anion Gap 9 mmol/L BUN 10 (7-17) mg/dL Creatinine 0.62 (0.52-1.04) mg/dL Est GFR (CKD-EPI)AfAm >90 (>60 ml/min/1.73 sqM) Est GFR (CKD-EPI)NonAf >90 (>60 ml/min/1.73 sqM) Glucose 154 H (74-99) mg/dL Calcium 8.6 (8.4-10.2) mg/dL Total Bilirubin 0.9 (0.2-1.3) mg/dL AST 68 H (14-36) U/L ALT 50 H (4-34) U/L Alkaline Phosphatase 196 H (38-126) U/L Total Protein 6.2 L (6.3-8.2) g/dL Albumin 3.0 L (3.5-5.0) g/dL Urine Color Light Yellow Urine Appearance Clear (Clear) Urine pH 5.5 (5.0-8.0) Ur Specific [place] 1.033 (1.001-1.035) Urine Protein Negative (Negative) Urine Glucose (UA) 4+ H (Negative) Urine Ketones Negative (Negative) Urine Blood Negative (Negative) Urine Nitrite Negative (Negative) Urine Bilirubin Negative (Negative) Urine Urobilinogen <2.0 (<2.0) mg/dL Ur Leukocyte Esterase Negative (Negative) Disposition Clinical Impression: Flank pain Disposition: HOME SELF-CARE Condition: Good Additional Instructions: Follow-up with primary care in next 24 to 48 hours Is patient prescribed a controlled substance at d/c from ED?: No Referrals: Sara Velarde MD [Primary Care Provider] - 1-2 days Time of Disposition: 18:24
--- NOTE | 2024-12-11 15:00 | CT ---
EXAMINATION TYPE: CT abdomen pelvis wo con DATE OF EXAM: 12/11/2024 2:38 PM COMPARISON: 10/19/2024 CLINICAL INDICATION: Female, 49 years old with history of Left flank pain, oliguria; Left flank pain, oliguria TECHNIQUE: Axial CT abdomen pelvis wo con;Sagittal and coronal reformats were created on a separate workstation. Contrast used: mL of , (none if empty) Oral contrast used: without Oral Contrast (none if empty) CT DLP: 968.0 mGycm, Automated exposure control for dose reduction was used. FINDINGS: LOWER CHEST: Sternotomy wires present. Trace left pleural effusion. Cardiac conduction leads partiall y visualized. Trace pericardial effusion. ABDOMEN LIVER: Nodular contour to liver compatible with cirrhosis. GALLBLADDER AND BILE DUCTS: The gallbladder is surgically absent. PANCREAS: Unremarkable. SPLEEN: Mildly enlarged up to 13.6 cm. ADRENAL GLANDS: Unremarkable. KIDNEYS AND URETERS: Bilateral nonobstructing renal calculi measuring up to 5 mm in the right and 5 m m on the left. No hydronephrosis. PELVIS BLADDER: No evidence for wall thickening or mass given limitations of exam. REPRODUCTIVE: Unremarkable. ABDOMEN & PELVIS STOMACH AND BOWEL: No evidence of bowel obstruction. Thickened blind-ending tubular structure near th e expected location of the appendix unclear if this is a thickened appendix velarde measuring up to alecia suring up to 24 mm in thickness. Series 203 image 51 and series 201 image 113. PERITONEUM/RETROPERITONEUM: No evidence of pneumoperitoneum. Trace free fluid in the pelvis. VASCULATURE: Severe atherosclerotic calcifications are present throughout the abdominal aorta and its branches. No evidence of aortic aneurysm. MUSCULOSKELETAL: No acute osseous abnormalities LYMPH NODES: No gross evidence for lymphadenopathy. SOFT TISSUE/ABDOMINAL WALL: Unremarkable IMPRESSION: 1. No evidence for acute left abdominal process to explain the patient's pain. Multiple bilateral no nobstructing calculi. No hydronephrosis. 2. Nodular contour to liver compatible with cirrhosis. Evidence of portal hypertension with splenome maritza. 3. Trace pericardial effusion and trace ascites. 4. Thickened edematous appendix without inflammation surrounding the appendix. Correlate for chronic appendicitis. [facility], , 12/11/2024 2:57 PM
[2024-12-11] MEDS: SODIUM CHLORIDE 0.9% 1,000 ML IV STA ×2 (15:11→17:13)
[2024-12-11] MEDS: KETOROLAC 15 MG/ML 1 ML VIAL IVP STA ×2 (15:12→17:14)
[2024-12-11] MEDS: HYDROmorphone 0.5 MG/0.5 ML SYRINGE IVP STA ×2 (15:14→17:15)
[2024-12-11 15:23] LABS: ALT 50 U/L (4-34); AST 68 U/L (14-36); African American GFR (CKD) >90 (>60 ml/min/1.73 sqM); Alkaline Phosphatase 196 U/L (38-126); Anion Gap 9 mmol/L; Blood Urea Nitrogen 10 mg/dL (7-17); Calcium 8.6 mg/dL (8.4-10.2); Carbon Dioxide 21 mmol/L (22-30); Chloride 109 mmol/L (98-107); Glucose 154 mg/dL (74-99); Non-African American GFR(CKD) >90 (>60 ml/min/1.73 sqM); Potassium 3.9 mmol/L (3.5-5.1); Sodium 139 mmol/L (137-145); Total Bilirubin 0.9 mg/dL (0.2-1.3); Total Protein 6.2 g/dL (6.3-8.2)
[2024-12-11 15:36] LABS: Anisocytosis Slight; Basophils % (A) 1 %; Eosinophils # (A) 0.2 k/uL (0-0.7); Eosinophils % (A) 5 %; HCT 31.7 % (34.0-46.0); HGB 9.6 gm/dL (11.4-16.0); Hypochromasia Marked; Lymphocytes # (A) 1.4 k/uL (1.0-4.8); Lymphocytes % (A) 32 %; MCH 24.6 pg (25.0-35.0); MCHC 30.3 g/dL (31.0-37.0); Mean Platelet Volume 10.5; Microcytosis Slight; Monocytes # (A) 0.5 k/uL (0-1.0); Monocytes % (A) 11 %; Neutrophils # (A) 2.1 k/uL (1.3-7.7); Neutrophils % (A) 49 %; Platelet Count 118 k/uL (150-450); RBC 3.91 m/uL (3.80-5.40); RDW 19.8 % (11.5-15.5); WBC 4.2 k/uL (3.8-10.6)
[2024-12-11 17:13] VITALS: PULSE 76
[2024-12-11 17:14] LABS: Appearance,Urine Clear (Clear); Bilirubin,Urine Negative (Negative); Blood,Urine Negative (Negative); Color,Urine Light Yellow; Glucose,Urine (UA) 4+ (Negative); Ketones,Urine Negative (Negative); Leukocyte Esterase,Urine Negative (Negative); Nitrite,Urine Negative (Negative); PH, Urine 5.5 (5.0-8.0); Protein,Urine Negative (Negative); Specific Gravity,Urine 1.033 (1.001-1.035); Urobilinogen,Urine <2.0 mg/dL (<2.0)
[2024-12-11] MEDS: ACET/COD 300 MG/30 MG STARTER PACK 6 TAB BTL PO STA (18:38)
[2024-12-11 18:43] VITALS: BP 117/85; TEMP 98.1
== END 2024-12-11 18:43 | disposition home or self-care (01) ==
LOC: EC 13:24
DX: R10.32 Left lower quadrant pain (principal); Z87.891 Personal history of nicotine dependence; Z88.8 Allergy status to other drugs, medicaments and biological substances; Z95.1 Presence of aortocoronary bypass graft
CPT/HCPCS: 36415; 80053; 85025; 81003; 74176; 99284; 96374; 96376; 96361; 96375; J1885; J1171

== ENCOUNTER 2024-12-14 18:24 | Observation (INO) | payer OTHER ==
--- NOTE | 2024-12-14 19:10 | ED ---
General Adult HPI - General Chief complaint: Chest Pain Stated complaint: dizzy/chest pain Time Seen by Provider: 12/14/24 18:44 Source: patient, RN notes reviewed, old records reviewed Mode of arrival: wheelchair Limitations: no limitations - History of Present Illness Initial comments: 49-year-old female history of CAD presenting for evaluation of chest discomfort and near syncope. Patient states that throughout the afternoon today she is felt very dizzy lightheaded, felt like she may pass out. She has had a mild headache. She has had anterior left-sided chest pain. No cough. No fever. She has a Pleurx catheter for pleural effusion which she is following with cardiothoracic surgery. She drains the left hemithorax once weekly. - Related Data Home Medications Medication Instructions Recorded Confirmed Atorvastatin Calcium [Lipitor] 40 mg PO DAILY 09/15/24 12/07/24 Gabapentin [Neurontin] 300 mg PO HS 09/23/24 12/07/24 Losartan [Cozaar] 12.5 mg PO DAILY 10/03/24 12/07/24 Metoprolol Tartrate [Lopressor] 25 mg PO BID 11/01/24 12/07/24 Omeprazole 20 mg PO DAILY 12/07/24 12/07/24 Previous Rx's Medication Instructions Recorded Aspirin 81 mg PO DAILY tab 10/01/24 Ondansetron Odt [Zofran ODT] 4 mg PO Q8HR PRN #20 tab 10/14/24 Petrolat,White/Shlomo/8-Hydroxyqu 1 gm TOPICAL TID PRN gm 10/14/24 [Bag [place]] Etodolac [Lodine] 400 mg PO BID #60 tab 11/16/24 Midodrine [ProAmatine] 10 mg PO AC-TID #90 tab 11/16/24 Nystatin 100,000 Unit/gm Powd 1 applic TOPICAL BID PRN 30 Days 11/16/24 [Mycostatin Powder] #10 each Allergies Allergy/AdvReac Type Severity Reaction Status Date / Time capsaicin Allergy Rash/Hives/ Verified 12/14/24 18:31 Swelling Review of Systems ROS Statement: Those systems with pertinent positive or pertinent negative responses have been documented in the HPI. ROS Other: All systems not noted in ROS Statement are negative. Past Medical History Past Medical History: Atrial Fibrillation, Coronary Artery Disease (CAD), Diabetes Mellitus, GERD/Reflux, Hyperlipidemia, Hypertension, Liver Disease, Osteoarthritis (OA), Pneumonia, Renal Disease, Syncope Additional Past Medical History / Comment(s): Hx pneumonia yrs ago. Hx kidney stones. Diet controlled diabetic. Seasonal allergies. Left internal carotid artery stenosis. Cirrhosis of liver. No menses in 4 1/2 yrs, states body does not make enough Estrogen. Recurrent pleural effusions. Pericardial effusion History of Any Multi-Drug Resistant Organisms: None Reported Past Surgical History: Appendectomy, Breast Surgery, Cholecystectomy, Coronary Bypass/CABG, Heart Catheterization With Stent, Orthopedic Surgery, Tubal Ligation Additional Past Surgical History / Comment(s): Right wrist carpal tunnel surgery, dental surgery- teeth removed, left breast abcess I&D X3, right breast abcess I&D X2, left ankle surgery, triple CABG 08/09/2024, multiple thoracentesis. Cardiac sents x2 and bilateral carotid stents. Left VATS with talc pleurodesis and placement of left-sided pleurx catheter 09/29/[address] Ortiz; subxiphoid pericardial window 10/04/2024 Past Anesthesia/Blood Transfusion Reactions: No Reported Reaction, Family History of Problems w/ Anesthesia Additional Past Anesthesia/Blood Transfusion Reaction / Comment(s): No blood transfusion to date. Mom stopped breathing during a surgery and was resuscitated. Date of Last Stent Placement:: 07/30/24 Past Psychological History: Anxiety, Bipolar, Depression Smoking Status: Former smoker Past Alcohol Use History: None Reported Past Drug Use History: None Reported, Marijuana - Past Family History Mother Family Medical History: Cancer Additional Family Medical History / Comment(s): schizoaffective disorder Father History Unknown: Yes Family Medical History: Unable to Obtain Additional Family Medical History / Comment(s): Patient did not know her father General Exam Limitations: no limitations General appearance: alert, in no apparent distress Head exam: Present: atraumatic, normocephalic Eye exam: Present: normal appearance, PERRL ENT exam: Present: normal exam Neck exam: Present: normal inspection. Absent: tenderness, meningismus Respiratory exam: Present: normal lung sounds bilaterally, other (Pleurx catheter left chest wall). Absent: respiratory distress, wheezes Cardiovascular Exam: Present: regular rate, normal rhythm Extremities exam: Present: normal inspection, normal capillary refill. Absent: pedal edema Neurological exam: Present: alert, oriented X3 Psychiatric exam: Present: normal affect, normal mood Skin exam: Present: warm, dry, intact Course Vital Signs 12/14/24 18:31 Temperature 98.5 F Pulse Rate 85 Respiratory 18 Rate Blood Pressure 129/69 O2 Sat by Pulse 100 Oximetry Medical Decision Making - Medical Decision Making Was pt. sent in by a medical professional or institution (ANDREW Christy, SEMI AUTOMATIC SEWING MACHINE OPERATOR, urgent care, hospital, or group home...) When possible be specific @ -No Did you speak to anyone other than the patient for history (EMS, parent, family, police, friend...)? What history was obtained from this source @ -No Did you review nursing and triage notes (agree or disagree)? Why? @ -I reviewed and agree with nursing and triage notes Were old charts reviewed (outside hosp., previous admission, EMS record, old EKG, old radiological studies, urgent care reports/EKG's, group home records)? Report findings @ -No old charts were reviewed Differential Chest Pain: Stable Angina, Unstable Angina, STEMI, NSTEMI Aortic Dissection, Pneumothorax, Musculoskeletal, Esophageal Spasm GERD, Cholecystitis, Pancreatitis, Zoster, this is not meant to be an all-inclusive list. EKG interpreted by me (3pts min.). @ -[EKG: Sinus rhythm no ST segment elevation, rate of 84, RI interval 143, QRS duration 88, QTc 418 nonspecific T wave abnormality. X-rays interpreted by me (1pt min.). @ -Chest x-ray showing left-sided chest tube, with small effusion, no acute process. CT interpreted by me (1pt min.). @ -None done U/S interpreted by me (1pt. min.). @ -None done What testing was considered but not performed or refused? (CT, X-rays, U/S, labs)? Why? @ -None What meds were considered but not given or refused? Why? @ -None Did you discuss the management of the patient with other professionals (professionals i.e. ANDREW Christy, SEMI AUTOMATIC SEWING MACHINE OPERATOR, lab, RT, psych nurse, social work manager, manager garden, teacher, loan workout officer, nurse case management)? Give summary @ -Case discussed with Dr. Soler who will admit Was smoking cessation discussed for >3mins.? @ -No Was critical care preformed (if so, how long)? @ -No Were there social determinants of health that impacted care today? How? (Homelessness, low income, unemployed, alcoholism, drug addiction, transportation, low edu. Level, literacy, decrease access to med. care, detention, rehab)? @ -No Was there de-escalation of care discussed even if they declined (Discuss DNR or withdrawal of care, Hospice)? DNR status @ -No What co-morbidities impacted this encounter? (DM, HTN, Smoking, COPD, CAD, Cancer, CVA, ARF, Chemo, Hep., AIDS, mental health diagnosis, sleep apnea, morbid obesity)? @ -CAD Was patient admitted / discharged? Hospital course, mention meds given and route, prescriptions, significant lab abnormalities, going to OR and other pertinent info. @ -49-year-old female presenting with left-sided chest pain EKG sinus rhythm without ST segment elevation. Chest x-ray shows catheter in place without acute findings. Patient has chronic stable anemia. Chronic transaminitis. Negative troponin. Patient will be observed for symptom control, serial cardiac enzymes, telemetry Undiagnosed new problem with uncertain prognosis? @ -No Drug Therapy requiring intensive monitoring for toxicity (Heparin, Nitro, Insu stacy, Cardizem)? @ -No Were any procedures done? @ -No Diagnosis/symptom? @ -Chest pain Acute, or Chronic, or Acute on Chronic? @ -Acute Uncomplicated (without systemic symptoms) or Complicated (systemic symptoms)? @ -Default Side effects of treatment? @ -No Exacerbation, Progression, or Severe Exacerbation? @ -No Poses a threat to life or bodily function? How? (Chest pain, [place], [place], pneumonia, PE, COPD, DKA, ARF, appy, cholecystitis, CVA, Diverticulitis, Homicidal, Suicidal, threat to staff... and all critical care pts) @ -[Yes, ACS - Lab Data Result diagrams: 12/14/24 19:00 12/14/24 19:00 Lab Results 12/14/24 12/14/24 12/14/24 Range/Units 19:00 19:00 19:00 WBC 4.0 (3.8-10.6) k/uL RBC 3.71 L (3.80-5.40) m/uL Hgb 9.2 L (11.4-16.0) gm/dL Hct 30.0 L (34.0-46.0) % MCV 80.9 (80.0-100.0) fL MCH 24.8 L (25.0-35.0) pg MCHC 30.6 L (31.0-37.0) g/dL RDW 19.3 H (11.5-15.5) % Plt Count 118 L (150-450) k/uL MPV 11.6 Neutrophils % 53 % Lymphocytes % 31 % Monocytes % 9 % Eosinophils % 5 % Basophils % 1 % Neutrophils # 2.1 (1.3-7.7) k/uL Lymphocytes # 1.2 (1.0-4.8) k/uL Monocytes # 0.3 (0-1.0) k/uL Eosinophils # 0.2 (0-0.7) k/uL Basophils # 0.0 (0-0.2) k/uL Manual Slide Review Performed Large Platelets Present Polychromasia Present Hypochromasia Marked Anisocytosis Slight Microcytosis Slight PT 12.1 (10.0-12.5) sec INR 1.1 (<1.2) APTT 26.2 (22.0-30.0) sec Sodium 137 (137-145) mmol/L Potassium 3.9 (3.5-5.1) mmol/L Chloride 109 H (98-107) mmol/L Carbon Dioxide 23 (22-30) mmol/L Anion Gap 5 mmol/L BUN 8 (7-17) mg/dL Creatinine 0.67 (0.52-1.04) mg/dL Est GFR (CKD-EPI)AfAm >90 (>60 ml/min/1.73 sqM) Est GFR (CKD-EPI)NonAf >90 (>60 ml/min/1.73 sqM) Glucose 120 H (74-99) mg/dL Calcium 8.2 L (8.4-10.2) mg/dL Magnesium 1.9 (1.6-2.3) mg/dL Total Bilirubin 0.7 (0.2-1.3) mg/dL AST 54 H (14-36) U/L ALT 45 H (4-34) U/L Alkaline Phosphatase 233 H (38-126) U/L Troponin I (0.000-0.034) ng/mL Total Protein 5.8 L (6.3-8.2) g/dL Albumin 2.8 L (3.5-5.0) g/dL 12/14/24 Range/Units 19:00 WBC (3.8-10.6) k/uL RBC (3.80-5.40) m/uL Hgb (11.4-16.0) gm/dL Hct (34.0-46.0) % MCV (80.0-100.0) fL MCH (25.0-35.0) pg MCHC (31.0-37.0) g/dL RDW (11.5-15.5) % Plt Count (150-450) k/uL MPV Neutrophils % % Lymphocytes % % Monocytes % % Eosinophils % % Basophils % % Neutrophils # (1.3-7.7) k/uL Lymphocytes # (1.0-4.8) k/uL Monocytes # (0-1.0) k/uL Eosinophils # (0-0.7) k/uL Basophils # (0-0.2) k/uL Manual Slide Review Large Platelets Polychromasia Hypochromasia Anisocytosis Microcytosis PT (10.0-12.5) sec INR (<1.2) APTT (22.0-30.0) sec Sodium (137-145) mmol/L Potassium (3.5-5.1) mmol/L Chloride (98-107) mmol/L Carbon Dioxide (22-30) mmol/L Anion Gap mmol/L BUN (7-17) mg/dL Creatinine (0.52-1.04) mg/dL Est GFR (CKD-EPI)AfAm (>60 ml/min/1.73 sqM) Est GFR (CKD-EPI)NonAf (>60 ml/min/1.73 sqM) Glucose (74-99) mg/dL Calcium (8.4-10.2) mg/dL Magnesium (1.6-2.3) mg/dL Total Bilirubin (0.2-1.3) mg/dL AST (14-36) U/L ALT (4-34) U/L Alkaline Phosphatase (38-126) U/L Troponin I <0.012 (0.000-0.034) ng/mL Total Protein (6.3-8.2) g/dL Albumin (3.5-5.0) g/dL Disposition Clinical Impression: Chest pain, Pericardial effusion Disposition: ADMITTED IP TO THIS HOSP Condition: Stable Is patient prescribed a controlled substance at d/c from ED?: No Referrals: Sara Velarde MD [Primary Care Provider] - 1-2 days Time of Disposition: 21:13
[2024-12-14] MEDS: HYDROmorphone 0.5 MG/0.5 ML SYRINGE IVP STA (19:39)
[2024-12-14 19:44] LABS: Anisocytosis Slight; Basophils % (A) 1 %; Eosinophils # (A) 0.2 k/uL (0-0.7); Eosinophils % (A) 5 %; HGB 9.2 gm/dL (11.4-16.0); Hypochromasia Marked; Lymphocytes # (A) 1.2 k/uL (1.0-4.8); Lymphocytes % (A) 31 %; MCH 24.8 pg (25.0-35.0); MCHC 30.6 g/dL (31.0-37.0); MCV 80.9 fL (80.0-100.0); Mean Platelet Volume 11.6; Microcytosis Slight; Monocytes # (A) 0.3 k/uL (0-1.0); Monocytes % (A) 9 %; Neutrophils # (A) 2.1 k/uL (1.3-7.7); Neutrophils % (A) 53 %; Platelet Count 118 k/uL (150-450); RBC 3.71 m/uL (3.80-5.40); RDW 19.3 % (11.5-15.5)
[2024-12-14 19:52] LABS: ALT 45 U/L (4-34); AST 54 U/L (14-36); African American GFR (CKD) >90 (>60 ml/min/1.73 sqM); Albumin 2.8 g/dL (3.5-5.0); Alkaline Phosphatase 233 U/L (38-126); Anion Gap 5 mmol/L; Blood Urea Nitrogen 8 mg/dL (7-17); Calcium 8.2 mg/dL (8.4-10.2); Carbon Dioxide 23 mmol/L (22-30); Chloride 109 mmol/L (98-107); Glucose 120 mg/dL (74-99); Magnesium 1.9 mg/dL (1.6-2.3); Non-African American GFR(CKD) >90 (>60 ml/min/1.73 sqM); Potassium 3.9 mmol/L (3.5-5.1); Sodium 137 mmol/L (137-145); Total Bilirubin 0.7 mg/dL (0.2-1.3); Total Protein 5.8 g/dL (6.3-8.2)
[2024-12-14 19:58] LABS: Large Platelets Present; Polychromasia Present
[2024-12-14 20:10] LABS: INR 1.1 (<1.2); Partial Thromboplastin Time 26.2 sec (22.0-30.0); Prothrombin Time 12.1 sec (10.0-12.5)
--- NOTE | 2024-12-14 20:35 | XR ---
EXAMINATION TYPE: XR chest 2V DATE OF EXAM: 12/14/2024 7:41 PM COMPARISON: None. CLINICAL INDICATION: Female, 49 years old with history of Chest Pain, TECHNIQUE: XR chest 2V view(s) obtained. FINDINGS: The heart size is enlarged. The pulmonary vasculature is normal. The lungs are clear. Catheter is present on the left. IMPRESSION: 1. No acute pulmonary process. 2. Cardiomegaly 3. Left-sided catheter [facility], , 12/14/2024 8:33 PM
[2024-12-14] MEDS: HYDROmorphone 1 MG/ML 1 ML SYRINGE IVP STA (20:59)
[2024-12-14] MEDS ORDERED: HYDROmorphone 0.5 MG/0.5 ML SYRINGE IVP PRN (21:09)
[2024-12-14] MEDS ORDERED: NALOXONE 0.4 MG/ML 1 ML VIAL IV PRN (21:09)
[2024-12-14] MEDS ORDERED: ACETAMINOPHEN TAB 325 MG TAB PO PRN (21:09)
[2024-12-14] MEDS ORDERED: ONDANSETRON ODT 4 MG TAB PO PRN (22:30)
--- NOTE | 2024-12-14 22:49 | P.HPIM ---
History of Present Illness H&P Date: 12/14/24 Patient is a 49-year-old female with a history of CAD status post CABG in August 2024, alcoholic liver cirrhosis, left internal carotid stent, A-fib not on anticoagulation (unknown reason), type 2 diabetes mellitus, GERD, hyperlipidemia and hypertension presents to the ER with complaint of sudden onset chest pain. Patient states that she woke up yesterday morning with a complaint of left-sided chest pain which was mainly underneath the left breast radiating to the left arm and left neck associated with nausea and dizziness. Patient describes the pain as sharp as well as pressure-like, 7/10 and is constant. Chest pain is worse with walking and alleviated when supine and with Tylenol. This is her first episode of chest pain since she underwent CABG in August 2024. She has multiple episodes of left-sided thoracentesis post CABG and currently has a left Pleurx catheter. The last drain was this morning where a 300 cc of yellow fluid was drained out. Patient also endorsed an episode of vertigo which lasted for a couple of minutes and resolved after she sat down. Patient denies loss of consciousness and a fall. Patient has also been endorsing worsening exertional dyspnea from last couple of days where she can only walk about 10-20 steps before she has to stop and rest. Patient denies being on any blood thinners, no recent upper respiratory tract, no recent travel. Patient denies orthopnea and PND. Patient is establish with nursing surgical services director Dr. Ogden and last saw him yesterday and started on her iron medication otherwise she is making good progress. At the time of interview, patient states that her chest pain has improved from 7/10 to 4/10. However it is still constant and continues to radiate into her neck and left shoulder and arm. At this time, patient denies any nausea, migraine, headache, acute changes in her vision, abdominal discomfort, diarrhea or constipation, weakness numbness or tingling in upper or lower extremities. Laboratory data: WBC 4.0, hemoglobin 9.2, hematocrit 30.0, MCV 80.9, platelet count 118, PT 12.1, INR 1.1, APTT 26.2, sodium 137, potassium 3.9, chloride 109, bicarb 23, anion gap 5, BUN 8, creatinine 0.67, GFR more than 90, glucose 120, calcium 8.2, magnesium 1.9, AST 54, ALT 45, alkaline phosphatase 233, troponin 1 less than 0.012, albumin 2.8 Images: Chest x-ray interpreted independently shows no acute pulmonary process with cardiomegaly and left-sided catheter. EKG reviewed independently shows normal sinus rhythm with ventricular rate of 84 bpm, CT interval normal 143 ms, QRS duration normal 88 ms, QTc 488 ms. Poor R wave noted. Vitals: Tmax 98.5 F, heart rate 85, respiratory rate 18, blood pressure 129/69, oxygen saturation 100% on room air. Review of systems: Pertinent positives and negatives as discussed in HPI, a complete review of systems was performed and all other systems are negative. Social history: Tobacco: Quit 3 years ago; previously one and half pack/day x 30 years Alcohol: Quit 3 years ago; previously heavy drinker Recreational drugs: Marijuana for pain Travel: None Family History: Patient unsure of family history Physical examination: Vital signs reviewed General: non toxic, no distress, appears older than stated age, overweight Derm: no unusual rashes/lesions, warm Head: atraumatic, normocephalic, symmetric Eyes: EOMI, no lid lag, anicteric sclera, pupils equal round reactive to light ENT: Nose and ears atraumatic Neck: No cervical lymphadenopathy, trachea midline, supple Mouth: no lip lesion, mucus membranes moist Cardiovascular: S1S2 reg, no murmur, positive dorsalis pedis pulse bilateral, bilateral 2+ pitting edema Lungs: CTA bilateral, no rhonchi, no rales, no accessory muscle use Abdominal: soft, nontender to palpation, no guarding, Pleurx catheter in place and intact with clean site MSK: There is a tenderness noted on palpation of left lower rib area Ext: muscle strength 5 out of 5 in all 4 extremities grossly, no gross muscle atrophy, no contractures, Neuro: CN II-XI grossly intact, no gross focal neuro deficits Psych: Alert, oriented, appropriate affect Assessment/Plan: Patient is a 49-year-old female with a history of CAD status post CABG in August 2024, alcoholic liver cirrhosis, left internal carotid stent, A-fib not on anticoagulation, type 2 diabetes mellitus, GERD, hyperlipidemia and hypertension presents to the ER with complaint of sudden onset chest pain associated dizziness. Case was discussed with the Emergency Room provider and decision was made to admit the patient for chest pain to rule out ACS and dizziness. Active problem: #Chest pain, rule out ACS Recent history of CAD status post CABG Troponin I less than 0.012 Continue to trend troponin x 3 Heart score: 4 points Tenderness noted on palpation of left lower rib area Patient is status post left Pleurx catheter Pain management with Dilaudid Consult cardiology Last echocardiogram 11/02/2024: LVEF 55 to 60% Continue cardiac telemetry Resume atorvastatin 40 mg p.o. daily Resume metoprolol 25 mg p.o. twice daily #Near syncope Order orthostatic vitals Continue monitor vital signs 0.9% normal saline at 50 cc/h Fall precautions Bilateral carotid ultrasound done 08/03/2024: Greater than 70% stenosis of the left carotid bifurcation status post stenting and less than 50% stenosis of the right carotid bifurcation #[id number] diabetes mellitus Glucose 120 Accu-Cheks and sliding scale insulin #Thrombocytopenia, at baseline Monitor CBC for now #Transaminases likely in the setting of liver cirrhosis and portal hypertension AST 54, ALT 45, ALP 233 Continue monitor CMP #Normocytic anemia, at baseline Hemoglobin 9.2, hematocrit 30.0, MCV 80.9 Continue monitor hemoglobin level Chronic problem: Hyperlipidemia: Resume atorvastatin 40 mg p.o. daily Peripheral neuropathy: Resume gabapentin 300 mg nightly Hypertension: Resume losartan 12.5 mg p.o. daily Liver cirrhosis: hold midodrine 10 mg p.o. 3 times daily DVT prophylaxis: Lovenox 40 mg subcu daily GI prophylaxis: Resume omeprazole 20 mg p.o. daily Monitor CBC and CMP tomorrow a.m. F: IV normal saline 75 cc/h E: Replete as needed N: Heart healthy diet A: Patient ambulatory at baseline The patient is admitted with an anticipated less than 2 midnight stay for evaluation of chest pain and dizziness CODE STATUS: Full code Discussed with: Patient Anticipated discharge place: Pending clinical course Dictation was produced using [employer] dictation software. Please excuse any grammatical, word or spelling errors. Past Medical History Past Medical History: Atrial Fibrillation, Coronary Artery Disease (CAD), Diabetes Mellitus, GERD/Reflux, Hyperlipidemia, Hypertension, Liver Disease, Osteoarthritis (OA), Pneumonia, Renal Disease, Syncope Additional Past Medical History / Comment(s): Hx pneumonia yrs ago. Hx kidney stones. Diet controlled diabetic. Seasonal allergies. Left internal carotid artery stenosis. Cirrhosis of liver. No menses in 4 1/2 yrs, states body does not make enough Estrogen. Recurrent pleural effusions. Pericardial effusion History of Any Multi-Drug Resistant Organisms: None Reported Past Surgical History: Appendectomy, Breast Surgery, Cholecystectomy, Coronary Bypass/CABG, Heart Catheterization With Stent, Orthopedic Surgery, Tubal Ligation Additional Past Surgical History / Comment(s): Right wrist carpal tunnel surgery, dental surgery- teeth removed, left breast abcess I&D X3, right breast abcess I&D X2, left ankle surgery, triple CABG 08/09/2024, multiple thoracentesis. Cardiac sents x2 and bilateral carotid stents. Left VATS with talc pleurodesis and placement of left-sided pleurx catheter 09/29/[address] Ortiz; subxiphoid pericardial window 10/04/2024 Past Anesthesia/Blood Transfusion Reactions: No Reported Reaction, Family History of Problems w/ Anesthesia Additional Past Anesthesia/Blood Transfusion Reaction / Comment(s): No blood transfusion to date. Mom stopped breathing during a surgery and was resuscitated. Date of Last Stent Placement:: 07/30/24 Past Psychological History: Anxiety, Bipolar, Depression Smoking Status: Former smoker Past Alcohol Use History: None Reported Past Drug Use History: None Reported, Marijuana - Past Family History Mother Family Medical History: Cancer Additional Family Medical History / Comment(s): schizoaffective disorder Father History Unknown: Yes Family Medical History: Unable to Obtain Additional Family Medical History / Comment(s): Patient did not know her father Medications and Allergies Home Medications Medication Instructions Recorded Confirmed Type Atorvastatin Calcium [Lipitor] 40 mg PO DAILY 09/15/24 12/07/24 History Gabapentin [Neurontin] 300 mg PO HS 09/23/24 12/07/24 History Aspirin 81 mg PO DAILY tab 10/01/24 12/07/24 Rx Losartan [Cozaar] 12.5 mg PO DAILY 10/03/24 12/07/24 History Ondansetron Odt [Zofran ODT] 4 mg PO Q8HR PRN #20 tab 10/14/24 12/07/24 Rx Petrolat,White/[place]/8-Hydroxyqu 1 gm TOPICAL TID PRN gm 10/14/24 12/07/24 Rx [Bag [place]] Metoprolol Tartrate [Lopressor] 25 mg PO BID 11/01/24 12/07/24 History Etodolac [Lodine] 400 mg PO BID #60 tab 11/16/24 12/07/24 Rx Midodrine [ProAmatine] 10 mg PO AC-TID #90 tab 11/16/24 12/07/24 Rx Nystatin 100,000 Unit/gm Powd 1 applic TOPICAL BID PRN 30 Days 11/16/24 12/07/24 Rx [Mycostatin Powder] #10 each Omeprazole 20 mg PO DAILY 12/07/24 12/07/24 History Allergies Allergy/AdvReac Type Severity Reaction Status Date / Time capsaicin Allergy Rash/Hives/ Verified 12/14/24 18:31 Swelling Physical Exam Vitals: Vital Signs Temp Pulse Resp BP Pulse Ox 12/14/24 18:31 98.5 F 85 18 129/69 100 Intake and Output 12/14/24 12/14/24 12/14/24 06:59 14:59 22:59 Other: Weight 92.533 kg Results CBC & Chem 7: 12/14/24 19:00 12/14/24 19:00 Labs: Abnormal Lab Results - Last 24 Hours (Table) 12/14/24 12/14/24 Range/Units 19:00 19:00 RBC 3.71 L (3.80-5.40) m/uL Hgb 9.2 L (11.4-16.0) gm/dL Hct 30.0 L (34.0-46.0) % MCH 24.8 L (25.0-35.0) pg MCHC 30.6 L (31.0-37.0) g/dL RDW 19.3 H (11.5-15.5) % Plt Count 118 L (150-450) k/uL Chloride 109 H (98-107) mmol/L Glucose 120 H (74-99) mg/dL Calcium 8.2 L (8.4-10.2) mg/dL AST 54 H (14-36) U/L ALT 45 H (4-34) U/L Alkaline Phosphatase 233 H (38-126) U/L Total Protein 5.8 L (6.3-8.2) g/dL Albumin 2.8 L (3.5-5.0) g/dL
[2024-12-15] MEDS: HYDROmorphone 1 MG/ML 1 ML SYRINGE IVP PRN (00:27)
[2024-12-15] MEDS: SODIUM CHLORIDE 0.9% 1,000 ML IV SCH (03:28)
[2024-12-15 04:29] LABS: ALT 41 U/L (4-34); AST 50 U/L (14-36); African American GFR (CKD) >90 (>60 ml/min/1.73 sqM); Albumin 2.6 g/dL (3.5-5.0); Albumin/Globulin Ratio 0.9; Alkaline Phosphatase 192 U/L (38-126); Anion Gap 3 mmol/L; Blood Urea Nitrogen 9 mg/dL (7-17); Calcium 8.3 mg/dL (8.4-10.2); Carbon Dioxide 23 mmol/L (22-30); Chloride 109 mmol/L (98-107); Glucose 108 mg/dL (74-99); Non-African American GFR(CKD) >90 (>60 ml/min/1.73 sqM); Potassium 3.8 mmol/L (3.5-5.1); Sodium 135 mmol/L (137-145); Total Bilirubin 0.9 mg/dL (0.2-1.3); Total Protein 5.6 g/dL (6.3-8.2)
[2024-12-15] MEDS ORDERED: REGADENOSON 0.4 MG/5 ML SYRINGE IV PRN (07:48)
[2024-12-15] MEDS ORDERED: CAFFEINE CITRATE 60 MG/3 ML VIAL IV PRN (07:48)
[2024-12-15] MEDS ORDERED: AMINOPHYLLINE 500 MG/20 ML VIAL IV PRN (07:48)
[2024-12-15] MEDS: INSULIN ASPART (NovoLOG) 100 UNIT/ML VIAL SQ SCH (07:52)
[2024-12-15] MEDS: ATORVASTATIN 40 MG TAB PO SCH (08:25)
[2024-12-15] MEDS: LOSARTAN 25 MG TAB PO SCH (08:25)
[2024-12-15] MEDS: ENOXAPARIN 40 MG/0.4 ML SYRINGE SQ SCH (08:26)
[2024-12-15] MEDS: ASPIRIN 81 MG PO SCH (08:26)
[2024-12-15] MEDS: PANTOPRAZOLE 40 MG TABLET PO SCH (08:26)
[2024-12-15] MEDS: METOPROLOL TARTRATE 25 MG TAB PO SCH (08:26)
--- NOTE | 2024-12-15 09:49 | P.CRDCN ---
History of Present Illness History of present illness: HISTORY OF PRESENT ILLNESS: This is a 49-year-old female with a past medical history significant for coronary artery disease with previous PCI and CABG 08/2024, pleural effusions with left Pleurx catheter, pericardial effusion, hypertension, hyperlipidemia, and former nicotine dependence. Patient follows in the office with Dr. Ogden. We have been asked to see the patient in consultation for chest pain. Patient examined at the bedside in the emergency room. Patient reports yesterday she began to have pain on the left side of her chest that radiated into her shoulder and her back. She states the pain is worse with exertion such as walking. She also reports associated shortness of breath when she gets the pain. However she also states the pain is worse with deep inspiration as well as laying flat in the bed. She reports she said Dr. Ogden on 12/13/24. She was prescribed nitro for chest pain at that time. She states she did not take any nitro at home as she had taken it in the past and got dizzy and felt like she was going to pass out so she was afraid to take it. The patient does have a history of recurrent pleural effusions. Patient has a left Pleurx catheter in. She states that she was draining it every other day. However about 2 weeks ago she went to see the cardiothoracic surgeon and he told her to just drain once a week or when she started to feel short of breath. She states yesterday she drained her catheter for about 300 cc. She states in the past she has been getting anywhere from 75 to 300 cc out when she drains it. DIAGNOSTICS: - EKG reveals sinus mechanism with T wave inversions inferiorly - Chest xray cardiomegaly. No acute pulmonary process. - Laboratory data: WBC 4.4. Hemoglobin 9.2. Platelet count 118. Sodium 135. Potassium 3.8. BUN 9. Creatinine 0.56. AST 50. ALT 41. Alkaline phosphatase 192. Troponin negative x 3. - Current home cardiac medications include aspirin 81 mg daily, Lipitor 40 mg daily, losartan 12.5 mg daily, metoprolol tartrate 25 mg twice a day, midodrine 2.5 mg 3 times a day, Jardiance 10 mg daily - Most recent echocardiogram obtained in October 2024 with ejection fraction 55 to 60%, moderate pericardial effusion with fibrous strands, no cardiac tamponade - Patient underwent CABG in 08/2024 with PERSAUD to LAD and diagonal and SVG to nondominant marginal branch. Circumflex was unable to be revascularized. REVIEW OF SYSTEMS: At the time of my exam: CONSTITUTIONAL: Denies fever or chills. HEENT: Denies blurred vision, vision changes, or eye pain. Denies hemoptysis CARDIOVASCULAR: Denies chest pain. Denies orthopnea. Denies PND. Denies palpitations RESPIRATORY: Denies shortness of breath. GASTROINTESTINAL: Denies abdominal pain. Denies nausea or vomiting. HEMATOLOGIC: Denies bleeding disorders. GENITOURINARY: Denies any blood in urine. SKIN: Denies pruitis. Denies rash. PHYSICAL EXAM: VITAL SIGNS: Reviewed. GENERAL: Well-developed in no acute distress. HEENT: Head is normocephalic. Pupils are equal, round. Sclerae anicteric. Mucous membranes of the mouth are moist. Neck supple. No JVD or thyromegaly LUNGS: Respirations even and unlabored. Lungs essentially clear to auscultation bilaterally, diminished at the left base. Left Pleurx catheter noted HEART: Regular rate and rhythm. S1 and S2 heard. Systolic murmur noted. ABDOMEN: Soft. Nondistended. Nontender. EXTREMITIES: Normal range of motion. No clubbing or cyanosis. Peripheral pulses intact. No lower extremity edema NEUROLOGIC: Awake and alert. Oriented x 3. ASSESSMENT: Chest pain, troponin negative x 3, with typical and atypical features Coronary artery disease with previous PCI and subsequent CABG in 08/2024 History of recurrent pleural effusions with previous thoracentesis, status post VATS and talc pleurodesis and left-sided Pleurx catheter insertion History of pericardial effusion with pericardial window Hypertension Hyperlipidemia Diabetes Former nicotine dependence Marijuana use History of liver cirrhosis PLAN: An acute coronary event has been ruled out Resume home cardiac medications Case discussed with patient's primary seam stayer, Dr. Ogden. Discussed heart catheterization versus Lexiscan stress test. Patient will undergo Lexiscan stress test today. If abnormal, patient will undergo cardiac catheterization Further recommendations pending patient course Nurse practitioner note has been reviewed by physician. Signing provider agrees with the documented findings, assessment, and plan of care documented by [employer] as a scribe. Past Medical History Past Medical History: Atrial Fibrillation, Coronary Artery Disease (CAD), Diabetes Mellitus, GERD/Reflux, Hyperlipidemia, Hypertension, Liver Disease, Osteoarthritis (OA), Pneumonia, Renal Disease, Syncope Additional Past Medical History / Comment(s): Hx pneumonia yrs ago. Hx kidney stones. Diet controlled diabetic. Seasonal allergies. Left internal carotid artery stenosis. Cirrhosis of liver. No menses in 4 1/2 yrs, states body does not make enough Estrogen. Recurrent pleural effusions. Pericardial effusion History of Any Multi-Drug Resistant Organisms: None Reported Past Surgical History: Appendectomy, Breast Surgery, Cholecystectomy, Coronary Bypass/CABG, Heart Catheterization With Stent, Orthopedic Surgery, Tubal Ligation Additional Past Surgical History / Comment(s): Right wrist carpal tunnel surgery, dental surgery- teeth removed, left breast abcess I&D X3, right breast abcess I&D X2, left ankle surgery, triple CABG 08/09/2024, multiple thoracentesis. Cardiac sents x2 and bilateral carotid stents. Left VATS with talc pleurodesis and placement of left-sided pleurx catheter 09/29/[address] Ortiz; subxiphoid pericardial window 10/04/2024 Past Anesthesia/Blood Transfusion Reactions: No Reported Reaction, Family History of Problems w/ Anesthesia Additional Past Anesthesia/Blood Transfusion Reaction / Comment(s): No blood transfusion to date. Mom stopped breathing during a surgery and was resuscitated. Date of Last Stent Placement:: 07/30/24 Past Psychological History: Anxiety, Bipolar, Depression Smoking Status: Former smoker Past Alcohol Use History: None Reported Past Drug Use History: None Reported, Marijuana - Past Family History Mother Family Medical History: Cancer Additional Family Medical History / Comment(s): schizoaffective disorder Father History Unknown: Yes Family Medical History: Unable to Obtain Additional Family Medical History / Comment(s): Patient did not know her father Medications and Allergies Home Medications Medication Instructions Recorded Confirmed Type Atorvastatin Calcium [Lipitor] 40 mg PO DAILY 09/15/24 12/15/24 History Gabapentin [Neurontin] 300 mg PO HS 09/23/24 12/15/24 History Aspirin 81 mg PO DAILY tab 10/01/24 12/15/24 Rx Losartan [Cozaar] 12.5 mg PO DAILY 10/03/24 12/15/24 History Ondansetron Odt [Zofran ODT] 4 mg PO Q8HR PRN #20 tab 10/14/24 12/15/24 Rx Petrolat,White/Shlomo/8-Hydroxyqu 1 gm TOPICAL TID PRN gm 10/14/24 12/15/24 Rx [Bag [place]] Metoprolol Tartrate [Lopressor] 25 mg PO BID 11/01/24 12/15/24 History Etodolac [Lodine] 400 mg PO BID #60 tab 11/16/24 12/15/24 Rx Nystatin 100,000 Unit/gm Powd 1 applic TOPICAL BID PRN 30 Days 11/16/24 12/15/24 Rx [Mycostatin Powder] #10 each Omeprazole 20 mg PO DAILY 12/07/24 12/15/24 History Benzonatate [Tessalon Perles] 100 mg PO TID PRN 12/15/24 12/15/24 History Empagliflozin [Jardiance] 10 mg PO DAILY 12/15/24 12/15/24 History Ferrous Sulfate [Feosol] 325 mg PO DAILY 12/15/24 12/15/24 History Midodrine HCl [ProAmantine] 2.5 mg PO AC-TID 12/15/24 12/15/24 History Nitroglycerin Sl Tabs [Nitrostat] 0.4 mg SUBLINGUAL Q5M PRN 12/15/24 12/15/24 History Allergies Allergy/AdvReac Type Severity Reaction Status Date / Time capsaicin Allergy Rash/Hives/ Verified 12/15/24 07:59 Swelling Physical Exam Vitals: Vital Signs Temp Pulse Resp BP Pulse Ox 12/15/24 07:44 84 20 126/77 100 12/15/24 04:08 81 18 113/59 98 12/14/24 23:51 76 18 111/58 98 12/14/24 18:31 98.5 F 85 18 129/69 100 Intake and Output 12/14/24 12/15/24 12/15/24 22:59 06:59 14:59 Other: Weight 92.533 kg Results 12/14/24 19:00 12/15/24 03:37 Cardiac Enzymes 12/14/24 12/14/24 12/14/24 Range/Units 19:00 19:00 23:48 AST 54 H (14-36) U/L Troponin I <0.012 <0.012 (0.000-0.034) ng/mL 12/15/24 12/15/24 Range/Units 03:37 03:37 AST 50 H (14-36) U/L Troponin I <0.012 (0.000-0.034) ng/mL Coagulation 12/14/24 Range/Units 19:00 PT 12.1 (10.0-12.5) sec APTT 26.2 (22.0-30.0) sec CBC 12/14/24 Range/Units 19:00 WBC 4.0 (3.8-10.6) k/uL RBC 3.71 L (3.80-5.40) m/uL Hgb 9.2 L (11.4-16.0) gm/dL Hct 30.0 L (34.0-46.0) % Plt Count 118 L (150-450) k/uL Comprehensive Metabolic Panel 12/14/24 12/15/24 Range/Units 19:00 03:37 Sodium 137 135 L (137-145) mmol/L Potassium 3.9 3.8 (3.5-5.1) mmol/L Chloride 109 H 109 H (98-107) mmol/L Carbon Dioxide 23 23 (22-30) mmol/L BUN 8 9 (7-17) mg/dL Creatinine 0.67 0.56 (0.52-1.04) mg/dL Glucose 120 H 108 H (74-99) mg/dL Calcium 8.2 L 8.3 L (8.4-10.2) mg/dL AST 54 H 50 H (14-36) U/L ALT 45 H 41 H (4-34) U/L Alkaline Phosphatase 233 H 192 H (38-126) U/L Total Protein 5.8 L 5.6 L (6.3-8.2) g/dL Albumin 2.8 L 2.6 L (3.5-5.0) g/dL Current Medications Generic Name Dose Route Start Last Admin Trade Name Freq PRN Reason Stop Dose Admin Acetaminophen 650 mg 12/14/24 21:09 Acetaminophen Tab 325 Mg Tab PO Q6HR PRN Mild Pain or Fever > 100.5 Aminophylline 100 mg 12/15/24 07:48 Aminophylline 500 Mg/20 Ml Vial IV 12/15/24 11:48 ONCE PRN Patient Response Aspirin 81 mg 12/15/24 09:00 12/15/24 08:26 Aspirin 81 Mg PO 81 mg DAILY GABO Administration Atorvastatin Calcium 40 mg 12/15/24 09:00 12/15/24 08:25 Atorvastatin 40 Mg Tab PO 40 mg DAILY GABO Administration Caffeine Citrate 60 mg 12/15/24 07:48 Caffeine Citrate 60 Mg/3 Ml Vial IV 12/15/24 11:48 ONCE PRN Patient Response Enoxaparin Sodium 40 mg 12/15/24 09:00 12/15/24 08:26 Enoxaparin 40 Mg/0.4 Ml Syringe SQ 40 mg DAILY GABO Administration Gabapentin 300 mg 12/15/24 21:00 Gabapentin 300 Mg Cap PO HS GABO Hydromorphone HCl 0.5 mg 12/14/24 21:09 Hydromorphone 0.5 Mg/0.5 Ml Syringe IVP Q3HR PRN Moderate Pain (Scale 4 to 6) Hydromorphone HCl 1 mg 12/14/24 21:09 12/15/24 07:50 Hydromorphone 1 Mg/Ml 1 Ml Syringe IVP 1 mg Q3HR PRN Administration Severe Pain (Scale 7 to 10) Sodium Chloride 1,000 mls @ 50 mls/hr 12/15/24 01:00 12/15/24 03:28 Saline 0.9% IV 50 mls/hr .Q20H GABO Administration Insulin Aspart 0 unit 12/15/24 07:30 12/15/24 07:52 Insulin Aspart (Novolog) 100 Unit/Ml Vial SQ Not Given ACHS [facility] Protocol Losartan Potassium 12.5 mg 12/15/24 09:00 12/15/24 08:25 Losartan 25 Mg Tab PO 12.5 mg DAILY GABO Administration Metoprolol Tartrate 25 mg 12/15/24 09:00 12/15/24 08:26 Metoprolol Tartrate 25 Mg Tab PO 25 mg BID GABO Administration Naloxone HCl 0.2 mg 12/14/24 21:09 Naloxone 0.4 Mg/Ml 1 Ml Vial IV Q2M PRN Opioid Reversal Ondansetron HCl 4 mg 12/14/24 22:30 Ondansetron Odt 4 Mg Tab PO Q8HR PRN Nausea Pantoprazole Sodium 40 mg 12/15/24 09:00 12/15/24 08:26 Pantoprazole 40 Mg Tablet PO 40 mg DAILY GABO Administration Regadenoson 0.4 mg 12/15/24 07:48 Regadenoson 0.4 Mg/5 Ml Syringe IV 12/15/24 11:48 ONCE PRN Per Protocol Intake and Output 12/14/24 12/15/24 12/15/24 22:59 06:59 14:59 Other: Weight 92.533 kg 12/14/24 19:00 12/15/24 03:37
[2024-12-15 09:51] LABS: Basophils # (A) 0.03 X 10*3/uL (0.00-0.10); Basophils % (A) 0.7 %; Eosinophils # (A) 0.19 X 10*3/uL (0.04-0.35); Eosinophils % (A) 4.7 %; HCT 30.1 % (37.2-46.3); HGB 8.7 g/dL (12.0-15.0); Lymphocytes # (A) 1.45 X 10*3/uL (0.90-5.00); MCH 24.3 pg (27.0-32.0); MCHC 28.9 g/dL (32.0-37.0); MCV 84.1 FL (80.0-97.0); Monocytes # (A) 0.53 X 10*3/uL (0.20-1.00); Monocytes % (A) 13.2 %; NRBC Per 100 WBC 0 X 10*3/uL (0.00-0.01); Neutrophils # (A) 1.82 X 10*3/uL (1.80-7.70); Neutrophils % (A) 45.2 %; Platelet Count 99 X 10*3/uL (140-440); RBC 3.58 X 10*6/uL (4.10-5.20); RDW 19.6 % (11.5-14.5); WBC 4.03 X 10*3/uL (4.50-10.00)
--- NOTE | 2024-12-15 11:45 | NM ---
EXAMINATION TYPE: NM stress lexiscan cardiolite DATE OF EXAM: 12/15/2024 COMPARISON: NONE CLINICAL INDICATION: Female, 49 years old with history of cp, TECHNIQUE: After the intravenous administration of 10.2 mCi Tc 99m Sestamibi - Cardiolite resting SP ECT images acquired 45 minutes post injection. At peak stress 25.2 mCi Tc 99m Sestamibi - Stress images obtained 35 minutes post injection The patient was stressed with 0.4 mg Lexiscan FINDINGS: No fixed defects are evident No reversible stress defects on Spect images. Polar maps suggest small defect near the cardiac base w hich is felt to be artifact. Some hypokinesia of the distal anterior wall may be present. Ejection fraction is calculated to be 69 %. Normal greater than 50%. IMPRESSION: 1. No fixed or reversible perfusion defects. 2. Suggestion of hypokinesia of the distal anterior wall. 3. Ejection fraction remains normal at 69%. [facility], , 12/15/2024 11:42 AM
[2024-12-15 12:03] LABS: Glucose,Whole Blood 114 mg/dL (70-110)
[2024-12-15 13:09] VITALS: BP 114/67; PULSE 70; RESP 18; TEMP 97.6
--- NOTE | 2024-12-15 15:09 | P.DS ---
Providers Date of admission: 12/14/24 21:10 Discharge Diagnosis: Chest pain Near syncope Ekj-qiuvvba-[id number] diabetes mellitus Thrombocytopenia, at baseline Transaminitis likely in the setting of liver cirrhosis and portal hypertension Normocytic anemia Hospital Course: Patient is a 49-year-old female with a history of CAD status post CABG in August 2024, alcoholic liver cirrhosis, left internal carotid stent, A-fib not on anticoagulation (unknown reason), type 2 diabetes mellitus, GERD, hyperlipidemia and hypertension presents to the ER with complaint of sudden onset chest pain. Patient states that she woke up yesterday morning with a complaint of left-sided chest pain which was mainly underneath the left breast radiating to the left arm and left neck associated with nausea and dizziness. Patient describes the pain as sharp as well as pressure-like, 7/10 and is constant. Chest pain is worse with walking and alleviated when supine and with Tylenol. This is her first episode of chest pain since she underwent CABG in August 2024. She has multiple episodes of left-sided thoracentesis post CABG and currently has a left Pleurx catheter. The last drain was this morning where a 300 cc of yellow fluid was drained out. Patient also endorsed an episode of vertigo which lasted for a couple of minutes and resolved after she sat down. Patient denies loss of consciousness and a fall. Patient has also been endorsing worsening exertional dyspnea from last couple of days where she can only walk about 10-20 steps before she has to stop and rest. Patient denies being on any blood thinners, no recent upper respiratory tract, no recent travel. Patient denies orthopnea and PND. Patient is establish with trailhead maintenance worker Dr. Ogden and last saw him yesterday and started on her iron medication otherwise she is making good progress. At the time of interview, patient states that her chest pain has improved from 7/10 to 4/10. However it is still constant and continues to radiate into her neck and left shoulder and arm. At this time, patient denies any nausea, migraine, headache, acute changes in her vision, abdominal discomfort, diarrhea or constipation, weakness numbness or tingling in upper or lower extremities. Laboratory data:WBC 4.0, hemoglobin 9.2, hematocrit 30.0, MCV 80.9, platelet count 118, PT 12.1, INR 1.1, APTT 26.2, sodium 137, potassium 3.9, chloride 109, bicarb 23, anion gap 5, BUN 8, creatinine 0.67, GFR more than 90, glucose 120, calcium 8.2, magnesium 1.9, AST 54, ALT 45, alkaline phosphatase 233, troponin 1 less than 0.012, albumin 2.8 Images: Chest x-ray interpreted independently shows no acute pulmonary process with cardiomegaly and left-sided catheter. EKG reviewed independently shows normal sinus rhythm with ventricular rate of 84 bpm, MS interval normal 143 ms, QRS duration normal 88 ms, QTc 488 ms. Poor R wave noted. Vitals:Tmax 98.5 F, heart rate 85, respiratory rate 18, blood pressure 129/69, oxygen saturation 100% on room air. Patient was admitted to internal medicine service. Cardiology on the case. While admitted patient underwent Lexiscan stress test which displayed no fixed or reversible perfusion defects, suggestive of hypokinesis in the distal anterior wall, ejection fraction remains normal at 69%. She was cleared by cardiology. Orthostatics were within normal limits. She is being discharged with pain medications. She is to follow-up with PCP and trailhead maintenance worker. Patient is being discharged home. Vital signs reviewed and stable. Physical examination: Vital signs reviewed General: non toxic, no distress, appears at stated age, obese Derm: no unusual rashes/lesions, warm Head: atraumatic, normocephalic, symmetric Eyes: EOMI, anicteric sclera, pupils equal round reactive to light ENT: Nose and ears atraumatic Neck: No cervical lymphadenopathy, trachea midline, supple Mouth: no lip lesion, mucus membranes moist Cardiovascular: S1S2 reg, no murmur, positive dorsalis pedis pulse bilateral, no edema Lungs: CTA bilateral, no rhonchi, no rales, no accessory muscle use Abdominal: soft, nontender to palpation, no guarding MSK: There is a tenderness noted on palpation of left lower rib area Ext: muscle strength 5 out of 5 in all 4 extremities grossly, no gross muscle atrophy Neuro: CN II-XI grossly intact, no gross focal neuro deficits Psych: Alert, oriented to person, place, and time A total of greater than 30 minutes of time were spent preparing this complex discharge summary. Patient was discharge on December 15, 2024 at 13:33. John Parrish MD PGY-1 IM Dictation was produced using [employer] dictation software. please excuse any grammatical, word or spelling errors. I have seen and evaluated the patient today. Discussed with the resident and agree with the residents finding and plan as documented in the resident's note. Changes highlighted in blue font. Expected date of discharge: 12/15/24 Attending physician: Alexander Soler MD Consults: 12/14/24 21:09 Consult Physician Routine Consulting Provider: Fatoumata Mack Consult Reason/Comments: CP Do you want consulting provider notified?: Yes Primary care physician: Sara Velarde MD Patient Condition at Discharge: Stable Plan - Discharge Summary New Discharge Prescriptions: New Acetaminophen Tab [Tylenol] 650 mg PO Q6HR PRN #90 tab PRN Reason: Mild Pain Or Fever > 100.5 HYDROcodone/APAP 5-325MG [[place] 5-325] 1 tab PO Q6HR PRN 3 Days #12 tab PRN Reason: Breakthrough Pain Continue Gabapentin [Neurontin] 300 mg PO HS Aspirin 81 mg PO DAILY tab Losartan [Cozaar] 12.5 mg PO DAILY Petrolat,White/Shlomo/8-Hydroxyqu [Bag [place]] 1 gm TOPICAL TID PRN gm PRN Reason: Dry Skin Metoprolol Tartrate [Lopressor] 25 mg PO BID Nystatin 100,000 Unit/gm Powd [Mycostatin Powder] 1 applic TOPICAL BID PRN 30 Days #10 each PRN Reason: Skin Irritation Nitroglycerin Sl Tabs [Nitrostat] 0.4 mg SUBLINGUAL Q5M PRN PRN Reason: Chest Pain Ferrous Sulfate [Iron (65 MG Elemental)] 325 mg PO DAILY Empagliflozin [Jardiance] 10 mg PO DAILY Atorvastatin Calcium [Lipitor] 40 mg PO DAILY Ondansetron Odt [Zofran ODT] 4 mg PO Q8HR PRN #20 tab PRN Reason: Nausea Omeprazole 20 mg PO DAILY Benzonatate [Tessalon Perles] 100 mg PO TID PRN PRN Reason: Cough Midodrine HCl [ProAmantine] 2.5 mg PO AC-TID Discontinued Etodolac [Lodine] 400 mg PO BID #60 tab Discharge Medication List Atorvastatin Calcium [Lipitor] 40 mg PO DAILY 09/15/24 [History] Gabapentin [Neurontin] 300 mg PO HS 09/23/24 [History] Aspirin 81 mg PO DAILY tab 10/01/24 [Rx] Losartan [Cozaar] 12.5 mg PO DAILY 10/03/24 [History] Ondansetron Odt [Zofran ODT] 4 mg PO Q8HR PRN #20 tab 10/14/24 [Rx] Petrolat,White/Shlomo/8-Hydroxyqu [Bag [place]] 1 gm TOPICAL TID PRN gm 10/14/24 [Rx] Metoprolol Tartrate [Lopressor] 25 mg PO BID 11/01/24 [History] Nystatin 100,000 Unit/gm Powd [Mycostatin Powder] 1 applic TOPICAL BID PRN 30 Days #10 each 11/16/24 [Rx] Omeprazole 20 mg PO DAILY 12/07/24 [History] Acetaminophen Tab [Tylenol] 650 mg PO Q6HR PRN #90 tab 12/15/24 [Rx] Benzonatate [Tessalon Perles] 100 mg PO TID PRN 12/15/24 [History] Empagliflozin [Jardiance] 10 mg PO DAILY 12/15/24 [History] Ferrous Sulfate [Iron (65 MG Elemental)] 325 mg PO DAILY 12/15/24 [History] HYDROcodone/APAP 5-325MG [[place] 5-325] 1 tab PO Q6HR PRN 3 Days #12 tab 12/15/24 [Rx] Midodrine HCl [ProAmantine] 2.5 mg PO AC-TID 12/15/24 [History] Nitroglycerin Sl Tabs [Nitrostat] 0.4 mg SUBLINGUAL Q5M PRN 12/15/24 [History] Follow up Appointment(s)/Referral(s): Jared Ogden DO [STAFF PHYSICIAN] - 1 Week Sara Velarde MD [Primary Care Provider] - 1-2 days Patient Instructions/Handouts: Noncardiac Chest Pain (DC) Activity/Diet/Wound Care/Special Instructions: Please see PCP and Cardiology. Discharge Disposition: HOME SELF-CARE
--- NOTE | 2024-12-15 17:40 | CA ---
Lexiscan Nuclear Stress Test Report Name: Yovana Ramos Exam Date: 12/15/2024 09:54 Exam Location: [facility] Stress Ht (in): 63 Wt (lb): 204 BSA: 1.95 Ordering Phys: Lisa Lewis Referring Phys: SANDRA Technologist: Ti Montenegro Age: 49 Gender: F : 1975 Procedure CPT: Indications: Reflex order-Stress test ICD-10 Codes: Patient History: CHEST PAIN, DIFFICULTY IN BREATHING, PALPITATIONS, HTN, HYPERCHOLESTEROLEMIA, PRIOR SMOKER, PRIOR CATH WITH STENTING X 4, CABG X 3 Medications: Meds past 24 hrs: Pretest Chest Pain: STRESS TEST Lexiscan Protocol Exercise Duration (min:sec): 01:[address] Depressions (mm): Angina Score: Cruz Score: Resting HR (bpm): 74 Peak HR (bpm): 97 Resting BP (mmHg): 123 / 79 Peak BP (mmHg): 143 / 85 MPHR: 172 Target HR: 146 % MPHR: 56 METS: 1.0 Total Dose: Peak Dose: Atropine: Double Product: 73072 BP Response: Stress Termination: INFUSION COMPLETE Stress Symptoms: CHEST PAIN,NAUSEA Stress Summary: ECG ANALYSIS Resting ECG: Sinus rhythm. Normal conduction. No arrhythmias. Nonspecific ST-T abnormality. Stress ECG: No ECG changes from baseline with Lexiscan infusion. CONCLUSIONS No ECG evidence of ischemia with Lexiscan infusion. Nuclear test results to follow. Dr. Fatoumata Mack MD (Electronically Signed) Final Date: 15 December 2024 17:39
[2024-12-15] MEDS ORDERED: GABAPENTIN 300 MG CAP PO SCH (21:00)
[2024-12-16] MEDS ORDERED: DAPAGLIFLOZIN PROPANEDIOL 5 MG TABLET PO SCH (09:00)
== END 2024-12-15 13:51 | disposition home or self-care (01) ==
LOC: EC 18:24 → 6NMEDSUR 21:10
PROVIDERS: ADMIT Internal Medicine; ATTEND Internal Medicine
DX: R07.89 Other chest pain (principal); R55 Syncope and collapse; J90 Pleural effusion, not elsewhere classified; I25.10 Atherosclerotic heart disease of native coronary artery without angina pectoris; I11.9 Hypertensive heart disease without heart failure; I48.91 Unspecified atrial fibrillation; D69.6 Thrombocytopenia, unspecified; K76.6 Portal hypertension; K70.30 Alcoholic cirrhosis of liver without ascites; E11.42 Type 2 diabetes mellitus with diabetic polyneuropathy; D64.9 Anemia, unspecified; K21.9 Gastro-esophageal reflux disease without esophagitis; E78.5 Hyperlipidemia, unspecified; R51.9 Headache, unspecified; M79.602 Pain in left arm; M25.512 Pain in left shoulder; M54.2 Cervicalgia; Z79.84 Long term (current) use of oral hypoglycemic drugs; Z79.82 Long term (current) use of aspirin; Z79.899 Other long term (current) drug therapy; Z91.018 Allergy to other foods; Z86.79 Personal history of other diseases of the circulatory system; Z97.8 Presence of other specified devices; Z95.1 Presence of aortocoronary bypass graft; Z95.828 Presence of other vascular implants and grafts; Z95.5 Presence of coronary angioplasty implant and graft; Z87.891 Personal history of nicotine dependence
CPT/HCPCS: 96376 ×2; 96372; 96374; 99285; 36415; 93005; 93017; 80053 ×2; 83735; 84484 ×2; 85025 ×2; 85610; 85730; 71046; 78452; G0378 ×2; A9500; J1650; J1171 ×3; J2785

== ENCOUNTER 2024-12-20 16:59 | Inpatient (IN) | payer OTHER ==
--- NOTE | 2024-12-20 17:25 | ED ---
Skin/Abscess/FB HPI - General Source: patient, RN notes reviewed Mode of arrival: wheelchair Limitations: no limitations <Marti Weber - Last Filed: 12/20/24 17:27> <Alycia Addison - Last Filed: 12/21/24 01:51> - General Chief complaint: Skin/Abscess/Foreign Body Stated complaint: right breast abscess Time Seen by Provider: 12/20/24 17:20 - History of Present Illness Initial comments: Quick Note: This is a 49-year-old female who presents to the emergency department for right breast pain. States that it started yesterday and she is concerned that she is developing another abscess. She does have a history of multiple breast abscesses requiring surgery. Denies any fevers/chills. (Marti Weber) 49-year-old female presenting with chief complaint of right breast pain. Patient has history of recurrent breast abscesses and follows with Dr. Familia Mendez. States that yesterday she started developing pain and was holding warm compresses to the area in hopes of being able to express the pus on her own. However today the pain worsened and she had spreading redness so she came to the ER. States that she was feeling some chills, she did not take her temperature at home. Denies any injury or trauma. She did have some nausea earlier today as well. (Alycia Addison) - Related Data Home Medications Medication Instructions Recorded Confirmed Atorvastatin Calcium [Lipitor] 40 mg PO DAILY 09/15/24 12/20/24 Gabapentin [Neurontin] 300 mg PO HS 09/23/24 12/20/24 Losartan [Cozaar] 12.5 mg PO DAILY 10/03/24 12/20/24 Metoprolol Tartrate [Lopressor] 25 mg PO BID 11/01/24 12/20/24 Omeprazole 20 mg PO DAILY 12/07/24 12/20/24 Benzonatate [Tessalon Perles] 100 mg PO TID PRN 12/15/24 12/20/24 Empagliflozin [Jardiance] 10 mg PO DAILY 12/15/24 12/20/24 Ferrous Sulfate [Iron (65 MG 325 mg PO DAILY 12/15/24 12/20/24 Elemental)] Midodrine HCl [ProAmantine] 2.5 mg PO AC-TID 12/15/24 12/20/24 Nitroglycerin Sl Tabs [Nitrostat] 0.4 mg SL Q5M PRN 12/15/24 12/20/24 Previous Rx's Medication Instructions Recorded Aspirin 81 mg PO DAILY tab 10/01/24 Ondansetron Odt [Zofran ODT] 4 mg PO Q8HR PRN #20 tab 10/14/24 Petrolat,White/Shlomo/8-Hydroxyqu 1 gm TOPICAL TID PRN gm 10/14/24 [Bag [place]] Nystatin 100,000 Unit/gm Powd 1 applic TOPICAL BID PRN 30 Days 11/16/24 [Mycostatin Powder] #10 each Acetaminophen Tab [Tylenol] 650 mg PO Q6HR PRN #90 tab 12/15/24 HYDROcodone/APAP 5-325MG [[place] 1 tab PO Q6HR PRN 3 Days #12 tab 12/15/24 5-325] Allergies Allergy/AdvReac Type Severity Reaction Status Date / Time capsaicin Allergy Rash/Hives/ Verified 12/20/24 20:45 Swelling Review of Systems ROS Other: All systems not noted in ROS Statement are negative. <Marti Weber - Last Filed: 12/20/24 17:27> ROS Other: All systems not noted in ROS Statement are negative. <Alycia Addison - Last Filed: 12/21/24 01:51> ROS Statement: Those systems with pertinent positive or pertinent negative responses have been documented in the HPI. Past Medical History Past Medical History: Atrial Fibrillation, Coronary Artery Disease (CAD), Diabetes Mellitus, GERD/Reflux, Hyperlipidemia, Hypertension, Liver Disease, Osteoarthritis (OA), Pneumonia, Renal Disease, Syncope Additional Past Medical History / Comment(s): Hx pneumonia yrs ago. Hx kidney stones. Diet controlled diabetic. Seasonal allergies. Left internal carotid artery stenosis. Cirrhosis of liver. No menses in 4 1/2 yrs, states body does not make enough Estrogen. Recurrent pleural effusions. Pericardial effusion History of Any Multi-Drug Resistant Organisms: None Reported Past Surgical History: Appendectomy, Breast Surgery, Cholecystectomy, Coronary Bypass/CABG, Heart Catheterization With Stent, Orthopedic Surgery, Tubal Ligation Additional Past Surgical History / Comment(s): Right wrist carpal tunnel surgery, dental surgery- teeth removed, left breast abcess I&D X3, right breast abcess I&D X2, left ankle surgery, triple CABG 08/09/2024, multiple thoracentesis. Cardiac sents x2 and bilateral carotid stents. Left VATS with talc pleurodesis and placement of left-sided pleurx catheter 09/29/[address] Ortiz; subxiphoid pericardial window 10/04/2024 Past Anesthesia/Blood Transfusion Reactions: No Reported Reaction, Family History of Problems w/ Anesthesia Additional Past Anesthesia/Blood Transfusion Reaction / Comment(s): No blood transfusion to date. Mom stopped breathing during a surgery and was resuscitated. Date of Last Stent Placement:: 07/30/24 Past Psychological History: Anxiety, Bipolar, Depression Smoking Status: Former smoker Past Alcohol Use History: None Reported Past Drug Use History: None Reported, Marijuana - Past Family History Mother Family Medical History: Cancer Additional Family Medical History / Comment(s): schizoaffective disorder Father History Unknown: Yes Family Medical History: Unable to Obtain Additional Family Medical History / Comment(s): Patient did not know her father <Marti Weber - Last Filed: 12/20/24 17:27> General Exam <Marti Weber - Last Filed: 12/20/24 17:27> Limitations: no limitations General appearance: alert, in no apparent distress Head exam: Present: atraumatic, normocephalic, normal inspection Eye exam: Present: normal appearance, EOMI Neck exam: Present: normal inspection. Absent: meningismus Respiratory exam: Absent: respiratory distress Cardiovascular Exam: Present: regular rate Neurological exam: Present: alert, oriented X3 Psychiatric exam: Present: normal affect, normal mood Skin exam: Present: erythema (Patient does have erythema adjacent to the right nipple about 3 x 3 cm) <Alycia Addison - Last Filed: 12/21/24 01:51> - General Exam Comments Initial Comments: Visual Physical Exam Vital signs reviewed General: Well-appearing, nontoxic, no acute distress. Head: Normocephalic, atraumatic Eyes: PERRLA, EOMI ENT: Airway patent Chest: Nonlabored breathing Skin: No visual rash, normal skin tone Neuro: Alert and oriented 3 Musculoskeletal: No gross abnormalities (Marti Weber) Course Vital Signs 12/20/24 12/21/24 12/21/24 17:21 00:02 00:21 Temperature 99.8 F H 98.4 F 98.4 F Pulse Rate 81 76 76 Respiratory 18 16 16 Rate Blood Pressure 115/77 98/64 98/64 O2 Sat by Pulse 99 100 100 Oximetry Medical Decision Making <Marti Weber - Last Filed: 12/20/24 17:27> - Lab Data Result diagrams: 12/20/24 18:15 12/20/24 18:15 <Alycia Addison - Last Filed: 12/21/24 01:51> - Medical Decision Making I performed the QuickNote portion of this chart. Signed Marti Weber PA-C. (Marti Weber) Was given verbal ultrasound report by sleep technician, there is a 1.5 x 1.0 x 1.7 cm abscess to the right breast Was pt. sent in by a medical professional or institution ([facility], [facility], urgent care, hospital, or retirement...) When possible be specific @ -[No] Did you speak to anyone other than the patient for history (EMS, parent, family, police, friend...)? What history was obtained from this source @ -[No] Did you review nursing and triage notes (agree or disagree)? Why? @ -[I reviewed and agree with nursing and triage notes] Were old charts reviewed (outside hosp., previous admission, EMS record, old EKG, old radiological studies, urgent care reports/EKG's, retirement records)? Report findings @ -[No old charts were reviewed] Differential Diagnosis (chest pain, altered mental status, abdominal pain women, abdominal pain men, vaginal bleeding, weakness, fever, dyspnea, syncope, headache, dizziness, GI bleed, back pain, seizure, CVA, palpatations, mental health, musculoskeletal)? @ -Differential includes abscess, cellulitis, allergic reaction, not an all- inclusive list EKG interpreted by me (3pts min.). @ -[As above] X-rays interpreted by me (1pt min.). @ -[None done] CT interpreted by me (1pt min.). @ -[None done] U/S interpreted by me (1pt. min.). @ -Report given to me by sleep technician, confirms 1.5 x 1.0 x 1.7 cm abscess to the right breast What testing was considered but not performed or refused? (CT, X-rays, U/S, labs)? Why? @ -[None] What meds were considered but not given or refused? Why? @ -[None] Did you discuss the management of the patient with other professionals (pro fessionals i.e. , PA, [facility] [facility], lab, RT, psych nurse, social work coordinator, teen counselor, teacher, chief lifestyle officer, gearcase assembler)? Give summary @ -Spoke with Dr. Yates, accepts admission Was smoking cessation discussed for >3mins.? @ -[No] Was critical care preformed (if so, how long)? @ -[No] Were there social determinants of health that impacted care today? How? (Homelessness, low income, unemployed, alcoholism, drug addiction, transportation, low edu. Level, literacy, decrease access to med. care, nursing home, rehab)? @ -[No] Was there de-escalation of care discussed even if they declined (Discuss DNR or withdrawal of care, Hospice)? DNR status @ -[No] What co-morbidities impacted this encounter? (DM, HTN, Smoking, COPD, CAD, Cancer, CVA, ARF, Chemo, Hep., AIDS, mental health diagnosis, sleep apnea, mor bid obesity)? @ -[None] Was patient admitted / discharged? Hospital course, mention meds given and route, prescriptions, significant lab abnormalities, going to OR and other pertinent info. @ -49-year-old female presenting with chief complaint of right breast pain. Started yesterday worsening today. History of breast abscesses. Workup initiated by triage. No leukocytosis. Hemoglobin 9.9 which is consistent for her baseline. CRP is WNL. Breast ultrasound report is given to me verbally by the sleep technician, patient does have a confirmed right breast abscess. Complex history with recurrent breast abscesses, will be admitted and her breast surgeon Dr. Familia Mendez will be consulted. She started on Unasyn and vancomycin. Provided with pain and nausea medication and IV fluids. Patient is agreeable with this plan. I discussed this case with my attending Dr. Batres Undiagnosed new problem with uncertain prognosis? @ -[No] Drug Therapy requiring intensive monitoring for toxicity (Heparin, Nitro, Insulin, Cardizem)? @ -[No] Were any procedures done? @ -[No] Diagnosis/symptom? @ -Breast abscess Acute, or Chronic, or Acute on Chronic? @ -Acute Uncomplicated (without systemic symptoms) or Complicated (systemic symptoms)? @ -Complicated Side effects of treatment? @ -[No] Exacerbation, Progression, or Severe Exacerbation? @ -[No] Poses a threat to life or bodily function? How? (Chest pain, [place], [place], pneumonia, PE, COPD, DKA, ARF, appy, cholecystitis, CVA, Diverticulitis, Homicidal, Suicidal, threat to staff... and all critical care pts) @ -Yes (Alycia Addison) - Lab Data Lab Results 12/20/24 12/20/24 12/20/24 Range/Units 18:15 18:15 18:15 WBC 5.8 (3.8-10.6) k/uL RBC 3.95 (3.80-5.40) m/uL Hgb 9.9 L (11.4-16.0) gm/dL Hct 31.8 L (34.0-46.0) % MCV 80.7 (80.0-100.0) fL MCH 25.0 (25.0-35.0) pg MCHC 31.0 (31.0-37.0) g/dL RDW 18.7 H (11.5-15.5) % Plt Count 110 L (150-450) k/uL MPV 11.2 Neutrophils % 64 % Lymphocytes % 22 % Monocytes % 9 % Eosinophils % 4 % Basophils % 1 % Neutrophils # 3.7 (1.3-7.7) k/uL Lymphocytes # 1.3 (1.0-4.8) k/uL Monocytes # 0.5 (0-1.0) k/uL Eosinophils # 0.2 (0-0.7) k/uL Basophils # 0.0 (0-0.2) k/uL Manual Slide Review Performed Hypochromasia Marked Anisocytosis Slight Microcytosis Slight Sodium 138 (137-145) mmol/L Potassium 4.0 (3.5-5.1) mmol/L Chloride 107 (98-107) mmol/L Carbon Dioxide 26 (22-30) mmol/L Anion Gap 5 mmol/L BUN 10 (7-17) mg/dL Creatinine 0.65 (0.52-1.04) mg/dL Est GFR (CKD-EPI)AfAm >90 (>60 ml/min/1.73 sqM) Est GFR (CKD-EPI)NonAf >90 (>60 ml/min/1.73 sqM) Glucose 127 H (74-99) mg/dL Plasma Lactic Acid Tristin 1.2 (0.7-2.0) mmol/L Calcium 8.4 (8.4-10.2) mg/dL Total Bilirubin 0.9 (0.2-1.3) mg/dL AST 48 H (14-36) U/L ALT 34 (4-34) U/L Alkaline Phosphatase 187 H (38-126) U/L C-Reactive Protein 0.5 (<1.0) mg/dL Total Protein 6.4 (6.3-8.2) g/dL Albumin 3.0 L (3.5-5.0) g/dL Disposition <Marti Weber - Last Filed: 12/20/24 17:27> Time of Disposition: 20:17 <Alycia Addison - Last Filed: 12/21/24 01:51> Clinical Impression: Breast abscess Disposition: ADMITTED IP TO THIS HOSP Condition: Fair
[2024-12-20 18:41] LABS: ALT 34 U/L (4-34); AST 48 U/L (14-36); African American GFR (CKD) >90 (>60 ml/min/1.73 sqM); Alkaline Phosphatase 187 U/L (38-126); Anion Gap 5 mmol/L; Blood Urea Nitrogen 10 mg/dL (7-17); C Reactive Protein 0.5 mg/dL (<1.0); Calcium 8.4 mg/dL (8.4-10.2); Carbon Dioxide 26 mmol/L (22-30); Chloride 107 mmol/L (98-107); Glucose 127 mg/dL (74-99); Non-African American GFR(CKD) >90 (>60 ml/min/1.73 sqM); Sodium 138 mmol/L (137-145); Total Bilirubin 0.9 mg/dL (0.2-1.3); Total Protein 6.4 g/dL (6.3-8.2)
[2024-12-20 18:47] LABS: Anisocytosis Slight; Basophils % (A) 1 %; Eosinophils # (A) 0.2 k/uL (0-0.7); Eosinophils % (A) 4 %; HCT 31.8 % (34.0-46.0); HGB 9.9 gm/dL (11.4-16.0); Hypochromasia Marked; Lymphocytes # (A) 1.3 k/uL (1.0-4.8); Lymphocytes % (A) 22 %; MCV 80.7 fL (80.0-100.0); Mean Platelet Volume 11.2; Microcytosis Slight; Monocytes # (A) 0.5 k/uL (0-1.0); Monocytes % (A) 9 %; Neutrophils # (A) 3.7 k/uL (1.3-7.7); Neutrophils % (A) 64 %; Platelet Count 110 k/uL (150-450); RBC 3.95 m/uL (3.80-5.40); RDW 18.7 % (11.5-15.5); WBC 5.8 k/uL (3.8-10.6)
[2024-12-20] MEDS ORDERED: VANCOMYCIN IV PER PHARMACY 1 EACH MISC MISCELLANE PRN ×2 (19:37→22:50)
[2024-12-20] MEDS ORDERED: NALOXONE 0.4 MG/ML 1 ML VIAL IV PRN (20:10)
[2024-12-20] MEDS: MORPHINE SULFATE 4 MG/ML SYRINGE IVP PRN (20:11)
[2024-12-20] MEDS: AMPICILLIN-SULBACTAM 3 GM in SODIUM CHLORIDE 0.9% 100 ML IVPB STA (20:19)
[2024-12-20] MEDS: ONDANSETRON 4 MG/2 ML VIAL IVP PRN (20:20)
[2024-12-20] MEDS: SODIUM CHLORIDE 0.9% 1,000 ML IV ONE (20:20)
--- NOTE | 2024-12-20 21:36 | P.HPIM ---
History of Present Illness H&P Date: 12/20/24 Patient is a 49-year-old female with a history of multiple bilateral breast abscesses, CAD status post CABG August 2024, alcoholic liver cirrhosis, left internal carotid stent, A-fib not on anticoagulation (unknown reason), type 2 diabetes mellitus, GERD, hyperlipidemia and hypertension presents to the ER with a complaint of right breast pain. Patient woke up this morning with mild tenderness noted on her right breast. Breast pain has been progressively getting worse throughout the day. She has used warm compresses, heating pads and Tylenol which provided minimal relief. Patient states that the pain reached 10/10 which prompted her to come to the ER for further evaluation. Patient de nies any nipple discharge, bleeding or foul smell. Patient has history of bilateral breast abscesses status post I&D. Latest episode of bilateral breast abscesses in May 2024 which was surgically evaluated by Dr. Maren Fajardo. Currently, patient states the pain is 7 out of 10 after she received morphine and Toradol. Patient also experiencing mild nausea, but no vomiting. Patient did have mild fever, rigors throughout the day. Last mammogram: Patient unsure but says it was likely in 2011 Laboratory data: WBC 5.8, hemoglobin 9.9, hematocrit 31.8, platelet count 110, sodium 138, potassium 4.0, chloride 107, BUN 10, creatinine 0.65, glucose 127, lactic acid 1.2, AST 48, ALT 34, ALP 187, CRP 0.5, albumin 3.0 Images: Ultrasound report Vitals: Tmax 99.8 Fahrenheit, heart rate 81, respirate 18, BP 115/77, oxygen saturation 99% on room air Review of systems: Pertinent positives and negatives as discussed in HPI, a complete review of systems was performed and all other systems are negative. Social history: Tobacco: Quit 3 years ago; previously one and half pack/day x 30 years Alcohol: Quit 3 years ago; previously heavy drinker Recreational drugs: Marijuana for pain Travel: None Family History: Patient unsure of family history Physical examination: Vital signs reviewed General: non toxic, no distress, appears older than stated age, overweight, Derm: Diffuse erythema surrounding the right nipple most notable on left upper quadrant with associated swelling and tenderness upon palpation. No nipple discharge noted. Head: atraumatic, normocephalic, symmetric Eyes: EOMI, no lid lag, anicteric sclera, pupils equal round reactive to light ENT: Nose and ears atraumatic Neck: No cervical lymphadenopathy, trachea midline, supple Mouth: no lip lesion, mucus membranes moist Cardiovascular: S1S2 reg, no murmur, positive dorsalis pedis pulse bilateral, no edema Lungs: CTA bilateral, no rhonchi, no rales, no accessory muscle use Abdominal: soft, nontender to palpation, no guarding, Pleurx catheter in place and intact with clean site Ext: muscle strength 5 out of 5 in all 4 extremities grossly, no gross muscle atrophy, no contractures, Neuro: CN II-XI grossly intact, no gross focal neuro deficits Psych: Alert, oriented, appropriate affect Assessment/Plan: This is a 49-year-old female with history of multiple comorbidities and history of multiple bilateral breast abscesses status post I&D's in the past has been admitted for new onset right breast abscess/cellulitis.. Case was discussed with the Emergency Room provider and decision was made to admit the patient for right breast abscess/cellulitis. #Right breast abscess/cellulitis WBC 5.8 Temperature 99.8 F Sepsis criteria: 0/4 Ultrasound report shows Consult general surgery for I&D for source control Ordered vancomycin 1500 mg IVPB every 12 hr Patient received Unasyn 3 g IVPB once in the ER, continue with IVPB Unaysn 3g q8h Order blood culture Keep patient n.p.o. Pain control as needed with dilaudid 0.5 mg IVP every 3 hours and Toradol 15 mg IVP every 6 hour as needed Continue with IV normal saline at 75 cc/h #Hrt-[id number] diabetes mellitus Glucose 127 Accu-Cheks and sliding scale insulin #Thrombocytopenia, at baseline Platelet count 110 Monitor CBC for now #Transaminases likely in the setting of liver cirrhosis and portal hypertension AST 48, ALT 34, ALP 187 Continue monitor CMP #Normocytic anemia, at baseline Hemoglobin 9.9, hematocrit 31.8, MCV 80.7 Continue monitor hemoglobin level No active bleeding DVT prophylaxis: Subcu heparin 5000 units q8hr GI prophylaxis: omeprazole 20 mg p.o. daily since patient is n.p.o. Chronic conditions: CAD: Resume aspirin 80 mg p.o. daily Neuropathy: Resume gabapentin 300 p.o. at bedtime Hypertension: Resume losartan 12.5 mg p.o. daily, Lopressor 25 mg p.o. twice daily F: IV normal saline 75 cc/h E: Replete as needed N: N.p.o. at midnight A: Patient with history of baseline The patient is admitted with an anticipated less than than 2 midnight stay for evaluation of right breast abscess/cellulitis CODE STATUS: Full code Discussed with: Patient Anticipated discharge place: Pending clinical course Dictation was produced using [employer] dictation software. Please excuse any grammatical, word or spelling errors. I have seen and evaluated the patient today. I Discussed the case with the resident and agree with the resident's findings I edited the assessment and plan as necessary as documented in the resident's note. Past Medical History Past Medical History: Atrial Fibrillation, Coronary Artery Disease (CAD), Diabetes Mellitus, GERD/Reflux, Hyperlipidemia, Hypertension, Liver Disease, Osteoarthritis (OA), Pneumonia, Renal Disease, Syncope Additional Past Medical History / Comment(s): Hx pneumonia yrs ago. Hx kidney stones. Diet controlled diabetic. Seasonal allergies. Left internal carotid a rtery stenosis. Cirrhosis of liver. No menses in 4 1/2 yrs, states body does not make enough Estrogen. Recurrent pleural effusions. Pericardial effusion History of Any Multi-Drug Resistant Organisms: None Reported Past Surgical History: Appendectomy, Breast Surgery, Cholecystectomy, Coronary Bypass/CABG, Heart Catheterization With Stent, Orthopedic Surgery, Tubal Ligation Additional Past Surgical History / Comment(s): Right wrist carpal tunnel surgery, dental surgery- teeth removed, left breast abcess I&D X3, right breast abcess I&D X2, left ankle surgery, triple CABG 08/09/2024, multiple thoracentesis. Cardiac sents x2 and bilateral carotid stents. Left VATS with talc pleurodesis and placement of left-sided pleurx catheter 09/29/[address] Ortiz; subxiphoid pericardial window 10/04/2024 Past Anesthesia/Blood Transfusion Reactions: No Reported Reaction, Family History of Problems w/ Anesthesia Additional Past Anesthesia/Blood Transfusion Reaction / Comment(s): No blood transfusion to date. Mom stopped breathing during a surgery and was resuscitated. Date of Last Stent Placement:: 07/30/24 Past Psychological History: Anxiety, Bipolar, Depression Smoking Status: Former smoker Past Alcohol Use History: None Reported Past Drug Use History: None Reported, Marijuana - Past Family History Mother Family Medical History: Cancer Additional Family Medical History / Comment(s): schizoaffective disorder Father History Unknown: Yes Family Medical History: Unable to Obtain Additional Family Medical History / Comment(s): Patient did not know her father Medications and Allergies Home Medications Medication Instructions Recorded Confirmed Type Atorvastatin Calcium [Lipitor] 40 mg PO DAILY 09/15/24 12/20/24 History Gabapentin [Neurontin] 300 mg PO HS 09/23/24 12/20/24 History Aspirin 81 mg PO DAILY tab 10/01/24 12/20/24 Rx Losartan [Cozaar] 12.5 mg PO DAILY 10/03/24 12/20/24 History Ondansetron Odt [Zofran ODT] 4 mg PO Q8HR PRN #20 tab 10/14/24 12/20/24 Rx Petrolat,White/Shlomo/8-Hydroxyqu 1 gm TOPICAL TID PRN gm 10/14/24 12/20/24 Rx [Bag [place]] Metoprolol Tartrate [Lopressor] 25 mg PO BID 11/01/24 12/20/24 History Nystatin 100,000 Unit/gm Powd 1 applic TOPICAL BID PRN 30 Days 11/16/24 12/20/24 Rx [Mycostatin Powder] #10 each Omeprazole 20 mg PO DAILY 12/07/24 12/20/24 History Acetaminophen Tab [Tylenol] 650 mg PO Q6HR PRN #90 tab 12/15/24 12/20/24 Rx Benzonatate [Tessalon Perles] 100 mg PO TID PRN 12/15/24 12/20/24 History Empagliflozin [Jardiance] 10 mg PO DAILY 12/15/24 12/20/24 History Ferrous Sulfate [Iron (65 MG 325 mg PO DAILY 12/15/24 12/20/24 History Elemental)] HYDROcodone/APAP 5-325MG [[place] 1 tab PO Q6HR PRN 3 Days #12 tab 12/15/24 12/20/24 Rx 5-325] Midodrine HCl [ProAmantine] 2.5 mg PO AC-TID 12/15/24 12/20/24 History Nitroglycerin Sl Tabs [Nitrostat] 0.4 mg SL Q5M PRN 12/15/24 12/20/24 History Allergies Allergy/AdvReac Type Severity Reaction Status Date / Time capsaicin Allergy Rash/Hives/ Verified 12/20/24 20:45 Swelling Physical Exam Vitals: Vital Signs Temp Pulse Resp BP Pulse Ox 12/20/24 17:21 99.8 F H 81 18 115/77 99 Intake and Output 12/20/24 12/20/24 12/20/24 06:59 14:59 22:59 Other: Weight 92.533 kg Results CBC & Chem 7: 12/20/24 18:15 12/20/24 18:15 Labs: Abnormal Lab Results - Last 24 Hours (Table) 12/20/24 12/20/24 Range/Units 18:15 18:15 Hgb 9.9 L (11.4-16.0) gm/dL Hct 31.8 L (34.0-46.0) % RDW 18.7 H (11.5-15.5) % Plt Count 110 L (150-450) k/uL Glucose 127 H (74-99) mg/dL AST 48 H (14-36) U/L Alkaline Phosphatase 187 H (38-126) U/L Albumin 3.0 L (3.5-5.0) g/dL
[2024-12-20] MEDS: VANCOMYCIN 1,500 MG in SODIUM CHLORIDE 0.9% 500 ML 500 ML IVPB STA (21:39)
[2024-12-20] MEDS: SODIUM CHLORIDE 0.9% 1,000 ML IV SCH (21:39)
[2024-12-20] MEDS: KETOROLAC 15 MG/ML 1 ML VIAL IVP PRN (21:44)
[2024-12-20] MEDS: DAPAGLIFLOZIN PROPANEDIOL 5 MG TABLET PO SCH (22:46)
[2024-12-20] MEDS: PANTOPRAZOLE 40 MG TABLET PO SCH (22:46)
[2024-12-20] MEDS: GABAPENTIN 300 MG CAP PO SCH (22:48)
[2024-12-20] MEDS: HYDROmorphone 0.5 MG/0.5 ML SYRINGE IVP PRN (22:58)
[2024-12-20] MEDS: HEPARIN SODIUM,PORCINE 5,000 UNIT/ML 1 ML VIAL SQ SCH (23:40)
[2024-12-21] MEDS ORDERED: AMPICILLIN-SULBACTAM 3 GM in SODIUM CHLORIDE 0.9% 100 ML IVPB SCH
[2024-12-21] MEDS: AMPICILLIN-SULBACTAM 3 GM in SODIUM CHLORIDE 0.9% 100 ML IVPB SCH (03:44)
[2024-12-21] MEDS: INSULIN ASPART (NovoLOG) 100 UNIT/ML VIAL SQ SCH (05:54)
--- NOTE | 2024-12-21 07:57 | USB ---
Patient History: 08/06/2019, Benign Core Biopsy on the left side. Risk Values: Carmenza 5 year model risk: 0.8%. NCI Lifetime model risk: 7.3%. Findings: A complete US of patients area of concern and retro-areolar region were reviewed. There is a 1.5 x 1.0 x 1.7cm heterogeneous area seen with peripheral vascularity. Findings most compatible in appropriate clinical setting. With abscess. Overall Assessment: Benign, BI-RAD 2 Management: Clinical Management of the right breast. Suspected abscess in the area of concern A clinical breast exam by your physician is recommended on an annual basis and results should be correlated with mammographic findings. This exam should not preclude additional follow-up of suspicious palpable abnormalities. Results were given to the patient verbally at the time of exam. [facility], , 12/20/2024 6:00 PM . Electronically signed and approved by: Song Jaramillo DO
[2024-12-21] MEDS: ATORVASTATIN 40 MG TAB PO SCH (09:12)
[2024-12-21] MEDS: ASPIRIN 81 MG PO SCH (09:12)
[2024-12-21] MEDS: FERROUS SULFATE 325 MG TAB PO SCH (09:12)
[2024-12-21] MEDS: METOPROLOL TARTRATE 25 MG TAB PO SCH (09:19)
[2024-12-21] MEDS: LOSARTAN 25 MG TAB PO SCH (09:19)
[2024-12-21] MEDS: VANCOMYCIN 1,500 MG in SODIUM CHLORIDE 0.9% 500 ML 500 ML IVPB SCH (10:11)
[2024-12-21 10:52] LABS: BUN/Creat Ratio 17.33 Ratio (12.00-20.00); Blood Urea Nitrogen 10.4 mg/dL (9.0-27.0); Carbon Dioxide 23.5 mmol/L (21.6-31.8); Chloride 112 mmol/L (96-109); Glucose 107 mg/dL (70-110); Potassium 3.8 mmol/L (3.5-5.5); Sodium 142 mmol/L (135-145)
[2024-12-21 10:53] LABS: ALT 25 U/L (8-44); AST 30 U/L (13-35); Albumin 2.8 g/dL (3.8-4.9); Albumin/Globulin Ratio 1.17 Ratio (1.60-3.17); Alkaline Phosphatase 155 U/L (41-126); Calcium 7.9 mg/dL (8.7-10.3); Globulin 2.4 g/dL (1.6-3.3); Magnesium 1.6 mg/dL (1.5-2.4); Total Bilirubin 0.6 mg/dL (0.3-1.2); Total Protein 5.2 g/dL (6.2-8.2)
--- NOTE | 2024-12-21 13:06 | P.GSCN ---
History of Present Illness Consult date: 12/21/24 History of present illness: CHIEF COMPLAINT: Right breast abscess HISTORY OF PRESENT ILLNESS: This is a 49-year-old female whose had prior history of recurrent breast abscesses in both breasts and required surgery by Dr. Familia Mendez in the past. Patient reports yesterday she started to have pain and swelling in the right breast near the nipple. She applied warm compresses without any improvement. The breast became more tender and red and came into the ER for evaluation. Patient did have a low-grade temp of 99 on admission. Her right breast ultrasound reported retroareolar region had a 1.5 x 1.0 x 1.7 cm heterogenous area. Compatible with abscess. PAST MEDICAL HISTORY: Atrial Fibrillation, Coronary Artery Disease (CAD), Diabetes Mellitus, GERD/Reflux, Hyperlipidemia, Hypertension, Liver Disease, Osteoarthritis (OA), Pneumonia, Renal Disease, Syncope PAST SURGICAL HISTORY: CABGTriple bypass surgery in August 2024,Appendectomy, Breast Surgery, C holecystectomy, Coronary Bypass/CABG, Heart Catheterization With Stent, Orthopedic Surgery, Tubal Ligation, left breast abcess I&D X3, right breast abcess I&D X2, Left VATS with talc pleurodesis and placement of left-sided pleurx catheter 09/29/[address] Ortiz; subxiphoid pericardial window 10/04/2024 MEDICATIONS: See below ALLERGIES: See below SOCIAL HISTORY: No illicit drug use. REVIEW OF SYSTEMS: CONSTITUTIONAL: Denies fever or chills. HEENT: Denies blurred vision, vision changes, or eye pain. Denies hemoptysis CARDIOVASCULAR: Denies chest pain or pressure. RESPIRATORY: No shortness of breath. GASTROINTESTINAL: See HPI for pertinent findings HEMATOLOGIC: Denies bleeding disorders. GENITOURINARY: Denies any blood in urine or increased urinary frequency. SKIN: Denies pruitis. Denies rash. PHYSICAL EXAM: VITAL SIGNS: Reviewed GENERAL: Well-developed in no acute distress. Breast: Right breast at the 3 o'clock position medial to the nipple there is a nodular swelling. No drainage. There is mild erythema on the medial aspect of the breast. The areola area is firm and tender with palpation. NEUROLOGIC: Alert and oriented. Cranial nerves II through XII grossly intact. LABORATORY DATA: WBC 5.8 Hgb 9.9 platelets 110 Sodium 142 potassium 3.8 creatinine 0.6 IMAGING: Right breast ultrasound as stated above ASSESSMENT: 1. Right breast abscess 2. History of recurrent breast abscesses PLAN: -Continue to monitor -Possible incision and drainage of right breast abscess at bedside tomorrow with Dr. Olson -N.p.o. after midnight -Apply warm compress -Continue antibiotics -Continue pain management Physician Radial Drill Press Set Up Operator note has been reviewed by physician. Signing provider agrees with the documented findings, assessment, and plan of care. Past Medical History Past Medical History: Atrial Fibrillation, Coronary Artery Disease (CAD), Heart Failure, Diabetes Mellitus, GERD/Reflux, Hyperlipidemia, Hypertension, Liver Di sease, Pneumonia, Renal Disease, Syncope Additional Past Medical History / Comment(s): Hx pneumonia yrs ago. Hx kidney stones. Diet controlled diabetic. Seasonal allergies. Left internal carotid artery stenosis. Cirrhosis of liver. No menses in 4 1/2 yrs, states body does not make enough Estrogen. Recurrent pleural effusions. Pericardial effusion History of Any Multi-Drug Resistant Organisms: None Reported Past Surgical History: Appendectomy, Breast Surgery, Cholecystectomy, Coronary Bypass/CABG, Heart Catheterization With Stent, Orthopedic Surgery, Tubal Ligation Additional Past Surgical History / Comment(s): Right wrist carpal tunnel surgery, dental surgery- teeth removed, left breast abcess I&D X3, right breast abcess I&D X2, left ankle surgery, triple CABG 08/09/2024, multiple thoracentesis. Cardiac sents x2 and bilateral carotid stents. Left VATS with talc pleurodesis and placement of left-sided pleurx catheter 09/29/[address] Ortiz; subxiphoid pericardial window 10/04/2024 Past Anesthesia/Blood Transfusion Reactions: No Reported Reaction, Family Hist ory of Problems w/ Anesthesia Additional Past Anesthesia/Blood Transfusion Reaction / Comm: No blood transfusion to date. Mom stopped breathing during a surgery and was resusc itated. Date of Last Stent Placement:: 07/30/24 Past Psychological History: Anxiety, Bipolar, Depression Additional Psychological History / Comment(s): Maintained with healthy coping mechanisms; diet and exericse (only suffers from depressive disorder, not the manic type). Smoking Status: Former smoker Past Alcohol Use History: None Reported Additional Past Alcohol Use History / Comment(s): STARTED SMOKING AT AGE 17, QUIT MARCH 16, 2021, SMOKED 1PPD. quit vaping july 2024 Past Drug Use History: Cocaine, Marijuana Additional Drug Use History / Comment(s): COCAINE USE "YEARS AGO ". "Smokes may be 1 joint daily for pain & bipolar." - Past Family History Mother Family Medical History: Cancer Additional Family Medical History / Comment(s): schizoaffective disorder, unsure which type of cancer Father History Unknown: Yes Family Medical History: Unable to Obtain Additional Family Medical History / Comment(s): Patient did not know her father Medications and Allergies Home Medications Medication Instructions Recorded Confirmed Type Atorvastatin Calcium [Lipitor] 40 mg PO DAILY 09/15/24 12/20/24 History Gabapentin [Neurontin] 300 mg PO HS 09/23/24 12/20/24 History Aspirin 81 mg PO DAILY tab 10/01/24 12/20/24 Rx Losartan [Cozaar] 12.5 mg PO DAILY 10/03/24 12/20/24 History Ondansetron Odt [Zofran ODT] 4 mg PO Q8HR PRN #20 tab 10/14/24 12/20/24 Rx Petrolat,White/Shlomo/8-Hydroxyqu 1 gm TOPICAL TID PRN gm 10/14/24 12/20/24 Rx [Bag [place]] Metoprolol Tartrate [Lopressor] 25 mg PO BID 11/01/24 12/20/24 History Nystatin 100,000 Unit/gm Powd 1 applic TOPICAL BID PRN 30 Days 11/16/24 12/20/24 Rx [Mycostatin Powder] #10 each Omeprazole 20 mg PO DAILY 12/07/24 12/20/24 History Acetaminophen Tab [Tylenol] 650 mg PO Q6HR PRN #90 tab 12/15/24 12/20/24 Rx Benzonatate [Tessalon Perles] 100 mg PO TID PRN 12/15/24 12/20/24 History Empagliflozin [Jardiance] 10 mg PO DAILY 12/15/24 12/20/24 History Ferrous Sulfate [Iron (65 MG 325 mg PO DAILY 12/15/24 12/20/24 History Elemental)] HYDROcodone/APAP 5-325MG [[place] 1 tab PO Q6HR PRN 3 Days #12 tab 12/15/24 12/20/24 Rx 5-325] Midodrine HCl [ProAmantine] 2.5 mg PO AC-TID 12/15/24 12/20/24 History Nitroglycerin Sl Tabs [Nitrostat] 0.4 mg SL Q5M PRN 12/15/24 12/20/24 History Allergies Allergy/AdvReac Type Severity Reaction Status Date / Time capsaicin Allergy Rash/Hives/ Verified 12/20/24 20:45 Swelling Surgical - Exam Vital Signs Temp Pulse Resp BP Pulse Ox 99.8 F H 81 18 115/77 99 12/20/24 17:21 12/20/24 17:21 12/20/24 17:21 12/20/24 17:21 12/20/24 17:21 Results - Labs 12/20/24 18:15 12/21/24 06:31 Abnormal Lab Results - Last 24 Hours (Table) 12/20/24 12/20/24 12/21/24 Range/Units 18:15 18:15 06:31 Hgb 9.9 L (11.4-16.0) gm/dL Hct 31.8 L (34.0-46.0) % RDW 18.7 H (11.5-15.5) % Plt Count 110 L (150-450) k/uL Chloride 112 H (96-109) mmol/L Glucose 127 H (74-99) mg/dL Calcium 7.9 L (8.7-10.3) mg/dL AST 48 H (14-36) U/L Alkaline Phosphatase 187 H 155 H (38-126) U/L Total Protein 5.2 L (6.2-8.2) g/dL Albumin 3.0 L 2.8 L (3.5-5.0) g/dL Albumin/Globulin Ratio 1.17 L (1.60-3.17) Ratio Diabetes panel 12/20/24 12/21/24 Range/Units 18:15 06:31 Sodium 138 142 (137-145) mmol/L Potassium 4.0 3.8 (3.5-5.1) mmol/L Chloride 107 112 H (98-107) mmol/L Carbon Dioxide 26 23.5 (22-30) mmol/L BUN 10 10.4 (7-17) mg/dL Creatinine 0.65 0.6 (0.52-1.04) mg/dL Glucose 127 H 107 (74-99) mg/dL Calcium 8.4 7.9 L (8.4-10.2) mg/dL AST 48 H 30 (14-36) U/L ALT 34 25 (4-34) U/L Alkaline Phosphatase 187 H 155 H (38-126) U/L Total Protein 6.4 5.2 L (6.3-8.2) g/dL Albumin 3.0 L 2.8 L (3.5-5.0) g/dL Calcium panel 12/20/24 12/21/24 Range/Units 18:15 06:31 Calcium 8.4 7.9 L (8.4-10.2) mg/dL Albumin 3.0 L 2.8 L (3.5-5.0) g/dL Pituitary panel 12/20/24 12/21/24 Range/Units 18:15 06:31 Sodium 138 142 (137-145) mmol/L Potassium 4.0 3.8 (3.5-5.1) mmol/L Chloride 107 112 H (98-107) mmol/L Carbon Dioxide 26 23.5 (22-30) mmol/L BUN 10 10.4 (7-17) mg/dL Creatinine 0.65 0.6 (0.52-1.04) mg/dL Glucose 127 H 107 (74-99) mg/dL Calcium 8.4 7.9 L (8.4-10.2) mg/dL Adrenal panel 12/20/24 12/21/24 Range/Units 18:15 06:31 Sodium 138 142 (137-145) mmol/L Potassium 4.0 3.8 (3.5-5.1) mmol/L Chloride 107 112 H (98-107) mmol/L Carbon Dioxide 26 23.5 (22-30) mmol/L BUN 10 10.4 (7-17) mg/dL Creatinine 0.65 0.6 (0.52-1.04) mg/dL Glucose 127 H 107 (74-99) mg/dL Calcium 8.4 7.9 L (8.4-10.2) mg/dL Total Bilirubin 0.9 0.6 (0.2-1.3) mg/dL AST 48 H 30 (14-36) U/L ALT 34 25 (4-34) U/L Alkaline Phosphatase 187 H 155 H (38-126) U/L Total Protein 6.4 5.2 L (6.3-8.2) g/dL Albumin 3.0 L 2.8 L (3.5-5.0) g/dL
[2024-12-21 13:31] LABS: Basophils # (A) 0.04 X 10*3/uL (0.00-0.10); Basophils % (A) 1.2 %; Eosinophils # (A) 0.14 X 10*3/uL (0.04-0.35); Eosinophils % (A) 4.1 %; HCT 27.9 % (37.2-46.3); Immature Platelet Fraction 10.9 % (1.1-6.1); Lymphocytes # (A) 1.02 X 10*3/uL (0.90-5.00); Lymphocytes % (A) 29.7 %; MCH 23.9 pg (27.0-32.0); MCHC 28.7 g/dL (32.0-37.0); MCV 83.3 FL (80.0-97.0); Monocytes # (A) 0.44 X 10*3/uL (0.20-1.00); Monocytes % (A) 12.8 %; NRBC Per 100 WBC 0 X 10*3/uL (0.00-0.01); Neutrophils # (A) 1.77 X 10*3/uL (1.80-7.70); Neutrophils % (A) 51.6 %; Platelet Count 73 X 10*3/uL (140-440); RBC 3.35 X 10*6/uL (4.10-5.20); WBC 3.43 X 10*3/uL (4.50-10.00)
[2024-12-21] MEDS: MIDODRINE 5 MG TAB PO SCH (13:35)
--- NOTE | 2024-12-21 23:20 | P.CONS ---
History of Present Illness - Reason for Consult Consult date: 12/21/24 Recurrent breast abscess Requesting physician: Mervin Mendoza - Chief Complaint Right breast pain and swelling x 1 day - History of Present Illness Patient is a 49-year-old female with a past medical history significant for coronary artery disease diabetes mellitus hypertension hyperlipidemia pneumonia atrial fibrillation and a history of recurrent breast abscess last time she did have a drainage of the abscess back in May [address] Barbosa with a culture on 05/18/2024 did grew Prevotella patient now presenting to the hospital concerning for right breast pain patient mention pain started the day before presentation to hospital and noticed an area that was coming up to the head but overall did not have any improvement with the warm compression and the medication she took with concern for developing abscess she presented to the hospital patient was describing the pain to be mostly sharp moderate intensity without radiation with associated swelling but no drainage on presentation to the hospital patient did have low-grade fever of 99.8 F patient was not tachycardic hypotensive or hypoxic she did have a white count of 3.43 with a left shift creatinine 0.64 liver isms are normal patient did have a breast ultrasound which did shows complex 1.5 X1.0X 1.7 cm heterogeneous area concerning for an abscess patient has been started on Unasyn and vancomycin infectious he was consulted for further management of antibiotic therapy Review of Systems Positive point and negatives has been mentioned in the HPI, complete review of systems was performed and all other systems are negative Past Medical History Past Medical History: Atrial Fibrillation, Coronary Artery Disease (CAD), Heart Failure, Diabetes Mellitus, GERD/Reflux, Hyperlipidemia, Hypertension, Liver Disease, Pneumonia, Renal Disease, Syncope Additional Past Medical History / Comment(s): Hx pneumonia yrs ago. Hx kidney stones. Diet controlled diabetic. Seasonal allergies. Left internal carotid ar amy stenosis. Cirrhosis of liver. No menses in 4 1/2 yrs, states body does not make enough Estrogen. Recurrent pleural effusions. Pericardial effusion History of Any Multi-Drug Resistant Organisms: None Reported Past Surgical History: Appendectomy, Breast Surgery, Cholecystectomy, Coronary Bypass/CABG, Heart Catheterization With Stent, Orthopedic Surgery, Tubal Ligation Additional Past Surgical History / Comment(s): Right wrist carpal tunnel surgery, dental surgery- teeth removed, left breast abcess I&D X3, right breast abcess I&D X2, left ankle surgery, triple CABG 08/09/2024, multiple thoracentesis. Cardiac sents x2 and bilateral carotid stents. Left VATS with talc pleurodesis and placement of left-sided pleurx catheter 09/29/[address] Ortiz; subxiphoid pericardial window 10/04/2024 Past Anesthesia/Blood Transfusion Reactions: No Reported Reaction, Family History of Problems w/ Anesthesia Additional Past Anesthesia/Blood Transfusion Reaction / Comm: No blood transfusion to date. Mom stopped breathing during a surgery and was resuscitated. Date of Last Stent Placement:: 07/30/24 Past Psychological History: Anxiety, Bipolar, Depression Additional Psychological History / Comment(s): Maintained with healthy coping mechanisms; diet and exericse (only suffers from depressive disorder, not the manic type). Smoking Status: Former smoker Past Alcohol Use History: None Reported Additional Past Alcohol Use History / Comment(s): STARTED SMOKING AT AGE 17, QUIT MARCH 16, 2021, SMOKED 1PPD. quit vaping july 2024 Past Drug Use History: Cocaine, Marijuana Additional Drug Use History / Comment(s): COCAINE USE "YEARS AGO ". "Smokes maybe 1 joint daily for pain & bipolar." - Past Family History Mother Family Medical History: Cancer Additional Family Medical History / Comment(s): schizoaffective disorder, unsure which type of cancer Father History Unknown: Yes Family Medical History: Unable to Obtain Additional Family Medical History / Comment(s): Patient did not know her father Medications and Allergies Home Medications Medication Instructions Recorded Confirmed Type Atorvastatin Calcium [Lipitor] 40 mg PO DAILY 09/15/24 12/20/24 History Gabapentin [Neurontin] 300 mg PO HS 09/23/24 12/20/24 History Aspirin 81 mg PO DAILY tab 10/01/24 12/20/24 Rx Losartan [Cozaar] 12.5 mg PO DAILY 10/03/24 12/20/24 History Ondansetron Odt [Zofran ODT] 4 mg PO Q8HR PRN #20 tab 10/14/24 12/20/24 Rx Petrolat,White/Shlomo/8-Hydroxyqu 1 gm TOPICAL TID PRN gm 10/14/24 12/20/24 Rx [Bag [place]] Metoprolol Tartrate [Lopressor] 25 mg PO BID 11/01/24 12/20/24 History Nystatin 100,000 Unit/gm Powd 1 applic TOPICAL BID PRN 30 Days 11/16/24 12/20/24 Rx [Mycostatin Powder] #10 each Omeprazole 20 mg PO DAILY 12/07/24 12/20/24 History Acetaminophen Tab [Tylenol] 650 mg PO Q6HR PRN #90 tab 12/15/24 12/20/24 Rx Benzonatate [Tessalon Perles] 100 mg PO TID PRN 12/15/24 12/20/24 History Empagliflozin [Jardiance] 10 mg PO DAILY 12/15/24 12/20/24 History Ferrous Sulfate [Iron (65 MG 325 mg PO DAILY 12/15/24 12/20/24 History Elemental)] HYDROcodone/APAP 5-325MG [[place] 1 tab PO Q6HR PRN 3 Days #12 tab 12/15/24 12/20/24 Rx 5-325] Midodrine HCl [ProAmantine] 2.5 mg PO AC-TID 12/15/24 12/20/24 History Nitroglycerin Sl Tabs [Nitrostat] 0.4 mg SL Q5M PRN 12/15/24 12/20/24 History Allergies Allergy/AdvReac Type Severity Reaction Status Date / Time capsaicin Allergy Rash/Hives/ Verified 12/20/24 20:45 Swelling Physical Exam Vitals: Vital Signs Temp Pulse Pulse Resp BP BP Pulse Ox 12/21/24 07:00 98.0 F 88 16 95/56 100 12/21/24 05:48 107/72 12/21/24 00:22 98.2 F 72 16 102/68 99 12/21/24 00:21 98.4 F 76 16 98/64 100 12/21/24 00:02 98.4 F 76 16 98/64 100 12/20/24 17:21 99.8 F H 81 18 115/77 99 Intake and Output 12/20/24 12/21/24 12/21/24 22:59 06:59 14:59 Other: Voiding Method Toilet Weight 92.533 kg 92.533 kg GENERAL DESCRIPTION: Middle-aged female lying in bed, no distress. No tachypnea or accessory muscle of respiration use. HEENT: Shows Pallor , no scleral icterus. Oral mucous membrane is dry. No pha ryngeal erythema or thrush NECK: Trachea central, no thyromegaly. LUNGS: Unlabored breathing. Clear to auscultation anteriorly. No wheeze or crackle. HEART: S1, S2, regular rate and rhythm. No loud murmur ABDOMEN: Soft, no tenderness , guarding or rigidity, no organomegaly EXTREMITIES: No edema of feet. SKIN: Right breast examined with the ROM and did have a small area of swelling next to the nipple area without any drainage NEUROLOGICAL: The patient is awake, alert, oriented x3, mood and affect normal. Results CBC & Chem 7: 12/21/24 06:31 12/21/24 06:31 Labs: Abnormal Lab Results - Last 24 Hours (Table) 12/20/24 12/20/24 Range/Units 18:15 18:15 Hgb 9.9 L (11.4-16.0) gm/dL Hct 31.8 L (34.0-46.0) % RDW 18.7 H (11.5-15.5) % Plt Count 110 L (150-450) k/uL Glucose 127 H (74-99) mg/dL AST 48 H (14-36) U/L Alkaline Phosphatase 187 H (38-126) U/L Albumin 3.0 L (3.5-5.0) g/dL Assessment and Plan (1) Breast abscess Current Visit: Yes Status: Acute Code(s): N61.1 - ABSCESS OF THE BREAST AND NIPPLE SNOMED Code(s): 75322720 Plan: 1patient presented to hospital with increasing pain and swelling to the right breast area and this patient who do have history of recurrent breast abscess last aspirated from the breast was on 05/18/2024 that did grew Prevotella could be the same pathogen versus Staph aureus. 2await surgical evaluation and drainage of the abscess fluid should be sent for culture 3-patient to continue with vancomycin pharmacy to dose and Unasyn while waiting for the culture to finalize Question concern answered We will follow on clinical condition and cultures to further adjust medication if needed Thank you for this consultation we will follow the patient along with you Dictation was produced using [employer] software. please excuse any grammatical, word or spelling errors. Time with Patient: Greater than 30
[2024-12-22 10:27] LABS: ALT 24 U/L (8-44); AST 34 U/L (13-35); Albumin 2.8 g/dL (3.8-4.9); Albumin/Globulin Ratio 1.12 Ratio (1.60-3.17); Alkaline Phosphatase 154 U/L (41-126); BUN/Creat Ratio 13.17 Ratio (12.00-20.00); Blood Urea Nitrogen 7.9 mg/dL (9.0-27.0); Calcium 8.1 mg/dL (8.7-10.3); Carbon Dioxide 24.1 mmol/L (21.6-31.8); Chloride 113 mmol/L (96-109); Globulin 2.5 g/dL (1.6-3.3); Glucose 102 mg/dL (70-110); Magnesium 1.6 mg/dL (1.5-2.4); Potassium 3.9 mmol/L (3.5-5.5); Sodium 141 mmol/L (135-145); Total Bilirubin 0.7 mg/dL (0.3-1.2); Total Protein 5.3 g/dL (6.2-8.2)
[2024-12-22] MEDS: VANCOMYCIN TROUGH DUE 1 EACH MISC MISCELLANE ONE (10:41)
--- NOTE | 2024-12-22 10:41 | P.PN ---
Subjective Progress Note Date: 12/21/24 Hospital course: Patient is a 49-year-old female with a past medical history of CAD status post CABG x 3 and stent placement, hypertension, hyperlipidemia, paroxysmal atrial fibrillation not on anticoagulation, carotid stenosis status post bilateral stent placement, and recurrent breast abscesses. She presented to the hospital on 12/20/2024 secondary to reports of right breast pain and concerns of recurrent abscess. Upon arrival to our facility, patient underwent evaluation in the emergency department. Vital signs upon arrival show blood pressure 115/77, heart rate 81, respiratory rate 18, temp 99.8 F, and SpO2 of 99% on room air. Ultrasound right breast completed showing a 1.5 x 1 x 1.7 cm heterogeneous area seen with peripheral vascularity compatible with abscess. On admission labs completed and reviewed. CBC showing bicytopenia with hemoglobin of 9.9 and platelet count of 110. BMP unremarkable. Blood glucose 127. Lactic acid 1.2. Liver profile showing elevated AST of 48 and ALT of 34 with alkaline phosphatase of 187. Albumin was low at 3.0. Patient was started on broad-spectrum antibiotics and admitted under our services with consultation to general surgery and infectious disease. Physical exam: Patient seen and evaluated at bedside. She reports pain in right breast otherwise denies having any complaints at this time. Vital signs reviewed and stable. General: Nontoxic, no distress and appears stated age. Derm: Skin warm and dry, normal coloration for ethnicity. Patient with moderate area of increased warmth, erythema and firm abscess to right breast. No open drainage noted. Head: Atraumatic, normocephalic and symmetric. Eyes: EOM's intact, no lid lag, and anicteric sclera Mouth: no lip lesions, mucus membranes moist Cardiovascular: regular rate and rhythm with normal S1S2, no murmur, positive posterior tibial pulses bilaterally, and cap refill < 2 seconds. Lungs: Respirations even, regular, and unlabored on room air. Lungs CTA bilaterally, no rhonchi, no rales, no wheezing, and no accessory muscle usage. Abdominal: soft, nontender to palpation, no guarding, no appreciable organomegaly Ext: ROM intact. No gross muscle atrophy, no edema, no contractures Neuro: Speech clear, face symmetrical and CN II-XII grossly intact with no noted focal neuro deficits Psych: Alert and oriented to person, place, time, and situation. Appropriate and pleasant affect. Assessment and Plan of Care: Recurrent breast abscess, right breast -Continue IV antibiotics with vancomycin 1500 mg every 12 hours and Unasyn 3 g every 6 hours. Closely monitor renal function and vancomycin trough for any signs of vancomycin associated renal toxicity. -Symptomatic care and pain management. Tylenol 650 mg every 6 hours as needed for mild pain/fever, Toradol 15 mg IVP every 6 hours as needed for moderate pain, and Dilaudid 0.5 mg every 3 hours as needed for severe pain. -General Surgery consulted for possible I&D. Discussed with general surgery PA possible I&D tomorrow morning. -Infectious disease consulted secondary to recurrent breast abscesses. -Follow-up on blood culture and wound culture results. CAD status post CABG x 3 and stent placement Hypertension Hyperlipidemia Paroxysmal atrial fibrillation Carotid stenosis status post bilateral stent placement -Continue cardiac medication regimen with aspirin 81 mg daily, atorvastatin 40 mg daily, Farxiga 5 mg daily, Cozaar 12.5 mg daily, midodrine 2.5 mg 3 times daily and metoprolol 25 mg twice daily. Data and imaging reviewed: Vital signs reviewed. Blood pressure 95/56, heart rate 88, respiratory rate 16, temp 98.0 F, and SpO2 of 100% on room air. Morning labs reviewed. CBC showing bicytopenia with hemoglobin of 8.0 and platelet count of 73. BMP showing hyperchloremia with chloride of 112. Magnesium slightly low at 1.6. Liver profile showing elevated alkaline phosphatase of 155 and hypoalbuminemia with albumin of 2.8. CODE STATUS full code DVT prophylaxis: Heparin Discussed with: Patient, patient's spouse at bedside, and general surgery PA Anticipated discharge date: Pending clinical course Anticipated discharge place: Home Patient was seen independently by Nurse Pracitioner. This document was prepared using [employer] dictation software. Please allow for errors in signal operator, while rare they do occur. Mervin Mendoza NP rendered care for this patient independently, reviewed the findings and plan as documented in the note above and agree with plan. I did not physically speak with or examine the patient on this date. Objective - Vital Signs Vital signs: Vital Signs Temp 98.0 F 12/21/24 07:00 Pulse 88 12/21/24 07:00 Resp 16 12/21/24 07:00 BP 95/56 12/21/24 07:00 Pulse Ox 100 12/21/24 07:00 FiO2 Intake & Output 12/20/24 12/21/24 12/21/24 18:59 06:59 18:59 Weight 92.533 kg 92.533 kg Other: Voiding Method Toilet - Labs CBC & Chem 7: 12/21/24 06:31 12/22/24 07:44 Labs: Abnormal Lab Results - Last 24 Hours (Table) 12/20/24 12/20/24 Range/Units 18:15 18:15 Hgb 9.9 L (11.4-16.0) gm/dL Hct 31.8 L (34.0-46.0) % RDW 18.7 H (11.5-15.5) % Plt Count 110 L (150-450) k/uL Glucose 127 H (74-99) mg/dL AST 48 H (14-36) U/L Alkaline Phosphatase 187 H (38-126) U/L Albumin 3.0 L (3.5-5.0) g/dL
[2024-12-22 11:08] LABS: HCT 28.5 % (37.2-46.3); HGB 8.1 g/dL (12.0-15.0); MCHC 28.4 g/dL (32.0-37.0); MCV 84.6 FL (80.0-97.0); NRBC Per 100 WBC 0 X 10*3/uL (0.00-0.01); Platelet Count 79 X 10*3/uL (140-440); RBC 3.37 X 10*6/uL (4.10-5.20); RDW 18.6 % (11.5-14.5); WBC 3.31 X 10*3/uL (4.50-10.00)
--- NOTE | 2024-12-22 12:41 | P.PN ---
Subjective Progress Note Date: 12/22/24 Principal diagnosis: Reason for follow-up with right breast abscess Patient is a 49-year-old female with a past medical history significant for coronary artery disease diabetes mellitus hypertension hyperlipidemia pneumonia atrial fibrillation and a history of recurrent breast abscess presented to hospital with increasing pain swelling to the right breast area concerning for an abscess. Patient did have spontaneous drainage evening of 12/21/2024 On today's evaluation that is 12/22/2024,the patient denies any fever or any chills, patient is breathing comfortably on room air, the patient denies chest pain shortness of breath and no significant cough, patient denies abdominal pain, no nausea vomiting or diarrhea. Patient pain to the right breast slightly decreased in intensity. Patient white count is 3.31, creatinine 0.6 Vanco trough is 16.4 cultures are currently pending Objective - Vital Signs Vital signs: Vital Signs Temp 98.2 F 12/22/24 07:37 Pulse 90 12/22/24 07:37 Resp 16 12/22/24 07:37 BP 102/69 12/22/24 07:37 Pulse Ox 99 12/22/24 07:37 FiO2 Intake & Output 12/21/24 12/22/24 12/22/24 18:59 06:59 18:59 Intake Total 120 Balance 120 Intake: Oral 120 Other: Voiding Method Toilet Toilet Toilet # Voids 1 2 - Exam Middle-age female up in the bed in no distress Unlabored breathing Right breast overall swelling has decreased minimal drainage on the dressing Awake alert oriented x 3 - Labs CBC & Chem 7: 12/22/24 07:44 12/22/24 07:44 Labs: Abnormal Lab Results - Last 24 Hours (Table) 12/21/24 12/22/24 12/22/24 Range/Units 06:31 07:44 07:44 WBC 3.43 L 3.31 L (4.50-10.00) X 10*3/uL RBC 3.35 L 3.37 L (4.10-5.20) X 10*6/uL Hgb 8.0 L 8.1 L (12.0-15.0) g/dL Hct 27.9 L 28.5 L (37.2-46.3) % MCH 23.9 L 24.0 L (27.0-32.0) pg MCHC 28.7 L 28.4 L (32.0-37.0) g/dL RDW 19.0 H 18.6 H (11.5-14.5) % Plt Count 73 L 79 L (140-440) X 10*3/uL Neutrophils # 1.77 L (1.80-7.70) X 10*3/uL Immature Plt Fraction 10.9 H (1.1-6.1) % Chloride 113 H (96-109) mmol/L Anion Gap 3.90 L (4.00-12.00) mmol/L BUN 7.9 L (9.0-27.0) mg/dL Calcium 8.1 L (8.7-10.3) mg/dL Alkaline Phosphatase 154 H (41-126) U/L Total Protein 5.3 L (6.2-8.2) g/dL Albumin 2.8 L (3.8-4.9) g/dL Albumin/Globulin Ratio 1.12 L (1.60-3.17) Ratio Microbiology - Last 24 Hours (Table) 12/21/24 17:47 Gram Stain - Preliminary Breast - Right Assessment and Plan (1) Breast abscess Current Visit: Yes Status: Acute Code(s): N61.1 - ABSCESS OF THE BREAST AND NIPPLE SNOMED Code(s): 31451522 Plan: 1patient presented to hospital with increasing pain and swelling to the right breast area and this patient who do have history of recurrent breast abscess last aspirated from the breast was on 05/18/2024 that did grew Prevotella could be the same pathogen versus Staph aureus. 2patient did have spontaneous drainage, fluid has been sent for culture 3-patient will be treated with vancomycin pharmacy to dose and Unasyn while waiting for the culture to finalize and monitor clinical course closely Dictation was produced using [employer] dictation software. please excuse any grammatical, word or spelling errors. Time with Patient: Less than 30
--- NOTE | 2024-12-22 12:51 | P.PN ---
Subjective Progress Note Date: 12/22/24 SURGICAL PROGRESS NOTE CHIEF COMPLAINT: Right breast abscess HISTORY OF PRESENT ILLNESS: Patient reports that the right breast abscess started to drain. Her pain and redness has decreased. She does report some swelling in the upper breast. Afebrile. WBC 3.31 Hgb 8.1 platelets 79 PHYSICAL EXAM: VITAL SIGNS: Reviewed. GENERAL: Well-developed in no acute distress. Breast: Right breast decreased erythema. Abscess area is draining. [place] area is softer. Tender with palpation. She does have some swelling and tenderness with palpation in the right chest wall above the breast. No erythema. ASSESSMENT: 1. Right breast abscess 2. History of recurrent breast abscesses PLAN: -Continue antibiotics per ID service -Continue warm compresses -No surgical intervention planned -Continue to observe Physician Measurement Superintendent note has been reviewed by physician. Signing provider agrees with the documented findings, assessment, and plan of care. Objective - Vital Signs Vital signs: Vital Signs Temp 98.2 F 12/22/24 07:37 Pulse 90 12/22/24 07:37 Resp 16 12/22/24 07:37 BP 102/69 12/22/24 07:37 Pulse Ox 99 12/22/24 07:37 FiO2 Intake & Output 12/21/24 12/22/24 12/22/24 18:59 06:59 18:59 Intake Total 120 Balance 120 Intake: Oral 120 Other: Voiding Method Toilet Toilet Toilet # Voids 1 2 - Labs CBC & Chem 7: 12/22/24 07:44 12/22/24 07:44 Labs: Abnormal Lab Results - Last 24 Hours (Table) 12/21/24 12/22/24 12/22/24 Range/Units 06:31 07:44 07:44 WBC 3.43 L 3.31 L (4.50-10.00) X 10*3/uL RBC 3.35 L 3.37 L (4.10-5.20) X 10*6/uL Hgb 8.0 L 8.1 L (12.0-15.0) g/dL Hct 27.9 L 28.5 L (37.2-46.3) % MCH 23.9 L 24.0 L (27.0-32.0) pg MCHC 28.7 L 28.4 L (32.0-37.0) g/dL RDW 19.0 H 18.6 H (11.5-14.5) % Plt Count 73 L 79 L (140-440) X 10*3/uL Neutrophils # 1.77 L (1.80-7.70) X 10*3/uL Immature Plt Fraction 10.9 H (1.1-6.1) % Chloride 113 H (96-109) mmol/L Anion Gap 3.90 L (4.00-12.00) mmol/L BUN 7.9 L (9.0-27.0) mg/dL Calcium 8.1 L (8.7-10.3) mg/dL Alkaline Phosphatase 154 H (41-126) U/L Total Protein 5.3 L (6.2-8.2) g/dL Albumin 2.8 L (3.8-4.9) g/dL Albumin/Globulin Ratio 1.12 L (1.60-3.17) Ratio Microbiology - Last 24 Hours (Table) 12/21/24 17:47 Gram Stain - Preliminary Breast - Right
[2024-12-22] MEDS: MAGNESIUM SULFATE-D5W PMX 1 GM in DEXTROSE/WATER 1 100ML.BAG IVPB SCH (14:02)
--- NOTE | 2024-12-22 14:09 | P.PN ---
Subjective Progress Note Date: 12/22/24 Hospital course: Patient is a 49-year-old female with a past medical history of CAD status post CABG x 3 and stent placement, hypertension, hyperlipidemia, paroxysmal atrial fibrillation not on anticoagulation, carotid stenosis status post bilateral stent placement, and recurrent breast abscesses. She presented to the hospital on 12/20/2024 secondary to reports of right breast pain and concerns of recurrent abscess. Upon arrival to our facility, patient underwent evaluation in the emergency department. Vital signs upon arrival show blood pressure 115/77, heart rate 81, respiratory rate 18, temp 99.8 F, and SpO2 of 99% on room air. Ultrasound right breast completed showing a 1.5 x 1 x 1.7 cm heterogeneous area seen with peripheral vascularity compatible with abscess. On admission labs completed and reviewed. CBC showing bicytopenia with hemoglobin of 9.9 and platelet count of 110. BMP unremarkable. Blood glucose 127. Lactic acid 1.2. Liver profile showing elevated AST of 48 and ALT of 34 with alkaline phosphatase of 187. Albumin was low at 3.0. Patient was started on broad-spectrum antibiotics and admitted under our services with consultation to general surgery and infectious disease. Physical exam: Patient seen and evaluated at bedside. She reports abscess began draining yesterday evening. Upon physical exam, erythema and induration improved significantly over the past 24 hours. No active draining noted at this time small amount of clear yellow fluid on dressing. Patient reports continued pain but improved. She reports more pain today further up in her breast and under her axilla, patient was noted to have lymphadenopathy likely reactive due to infection. Vital signs reviewed and stable. General: Nontoxic, no distress and appears stated age. Derm: Skin warm and dry, normal coloration for ethnicity. Patient with mild erythema to right breast, improving. No firm palpable abscess noted. Head: Atraumatic, normocephalic and symmetric. Eyes: EOM's intact, no lid lag, and anicteric sclera Mouth: no lip lesions, mucus membranes moist Cardiovascular: regular rate and rhythm with normal S1S2, no murmur, positive posterior tibial pulses bilaterally, and cap refill < 2 seconds. Lungs: Respirations even, regular, and unlabored on room air. Lungs CTA bilaterally, no rhonchi, no rales, no wheezing, and no accessory muscle usage. Abdominal: soft, nontender to palpation, no guarding, no appreciable organomegaly Ext: ROM intact. No gross muscle atrophy, no edema, no contractures Neuro: Speech clear, face symmetrical and CN II-XII grossly intact with no noted focal neuro deficits Psych: Alert and oriented to person, place, time, and situation. Appropriate and pleasant affect. Assessment and Plan of Care: Recurrent breast abscess, right breast -Continue IV antibiotics with vancomycin 1500 mg every 12 hours and Unasyn 3 g every 6 hours. Closely monitor renal function and vancomycin trough for any signs of vancomycin associated renal toxicity. -Symptomatic care and pain management. Tylenol 650 mg every 6 hours as needed for mild pain/fever, Toradol 15 mg IVP every 6 hours as needed for moderate pain, and Dilaudid 0.5 mg every 3 hours as needed for severe pain. -General Surgery consulted for possible I&D. Discussed with general surgery PA secondary to abscess draining on its own, no need for I&D at this time. -Infectious disease following, reviewed documentation in chart. -Follow-up on blood culture and wound culture results. Pancytopenia -Chronic and appears to be slightly worsened from baseline. Likely reactive se condary to infection. Continue to monitor closely with repeat morning CBC. CAD status post CABG x 3 and stent placement Hypertension Hyperlipidemia Paroxysmal atrial fibrillation Carotid stenosis status post bilateral stent placement -Continue cardiac medication regimen with aspirin 81 mg daily, atorvastatin 40 mg daily, Farxiga 5 mg daily, Cozaar 12.5 mg daily, midodrine 2.5 mg 3 times daily and metoprolol 25 mg twice daily. Data and imaging reviewed: Vital signs reviewed. Blood pressure 102/69, heart rate 90, respiratory rate 16, temp 98.2 F, and SpO2 of 99% on room air. Morning labs reviewed. CBC showing leukopenia with WBC count of 3.31, hemoglobin 8.1, and platelet count of 79. BMP showing hyperchloremia with chloride of 113 otherwise normal findings. Blood glucose 102. Magnesium 1.6. Liver profile showing elevated alkaline phosphatase of 154. Albumin low at 2.8. Vancomycin trough therapeutic at 16.4. CODE STATUS Full Code DVT prophylaxis: Heparin Discussed with: Patient, patient's spouse at bedside, RN and general surgery PA Anticipated discharge date: Pending clinical course Anticipated discharge place: Home Patient was seen independently by Nurse Pracitioner. This document was prepared using [employer] dictation software. Please allow for errors in desktop publishing specialist, while rare they do occur. Mervin Mendoza NP rendered care for this patient independently, reviewed the findin gs and plan as documented in the note above and agree with plan. I did not physically speak with or examine the patient on this date. Objective - Vital Signs Vital signs: Vital Signs Temp 98.2 F 12/22/24 07:37 Pulse 90 12/22/24 07:37 Resp 16 12/22/24 07:37 BP 102/69 12/22/24 07:37 Pulse Ox 99 12/22/24 07:37 FiO2 Intake & Output 12/21/24 12/22/24 12/22/24 18:59 06:59 18:59 Intake Total 120 Balance 120 Intake: Oral 120 Other: Voiding Method Toilet Toilet # Voids 1 2 - Labs CBC & Chem 7: 12/22/24 07:44 12/22/24 07:44 Labs: Abnormal Lab Results - Last 24 Hours (Table) 12/21/24 12/21/24 Range/Units 06:31 06:31 WBC 3.43 L (4.50-10.00) X 10*3/uL RBC 3.35 L (4.10-5.20) X 10*6/uL Hgb 8.0 L (12.0-15.0) g/dL Hct 27.9 L (37.2-46.3) % MCH 23.9 L (27.0-32.0) pg MCHC 28.7 L (32.0-37.0) g/dL RDW 19.0 H (11.5-14.5) % Plt Count 73 L (140-440) X 10*3/uL Neutrophils # 1.77 L (1.80-7.70) X 10*3/uL Immature Plt Fraction 10.9 H (1.1-6.1) % Chloride 112 H (96-109) mmol/L Calcium 7.9 L (8.7-10.3) mg/dL Alkaline Phosphatase 155 H (41-126) U/L Total Protein 5.2 L (6.2-8.2) g/dL Albumin 2.8 L (3.8-4.9) g/dL Albumin/Globulin Ratio 1.17 L (1.60-3.17) Ratio Microbiology - Last 24 Hours (Table) 12/21/24 17:47 Gram Stain - Preliminary Breast - Right
[2024-12-22] MEDS: ACETAMINOPHEN TAB 325 MG TAB PO PRN (20:30)
--- NOTE | 2024-12-23 12:20 | P.PN ---
Subjective Progress Note Date: 12/23/24 SURGICAL PROGRESS NOTE CHIEF COMPLAINT: Right breast abscess HISTORY OF PRESENT ILLNESS: Patient does report improvement in pain and swelling and redness over the right breast abscess. She reports it is no longer draining. Afebrile. WBC 3.31 PHYSICAL EXAM: VITAL SIGNS: Reviewed. GENERAL: Well-developed in no acute distress. Breast: Erythema around the right breast has resolved. No further drainage. Right nipple is slightly retracted. Areola area continues to get softer. Tenderness with palpation. Has minimal swelling in the right upper breast/ chest wall ASSESSMENT: 1. Right breast abscess 2. History of recurrent breast abscesses PLAN: -Continue antibiotics per ID service -Continue warm compresses -No surgical intervention planned Physician Design Inserter note has been reviewed by physician. Signing provider agrees with the documented findings, assessment, and plan of care. Objective - Vital Signs Vital signs: Vital Signs Temp 98.2 F 12/23/24 07:53 Pulse 82 12/23/24 07:53 Resp 16 12/23/24 07:53 BP 126/76 12/23/24 07:53 Pulse Ox 98 12/23/24 07:53 FiO2 Intake & Output 12/22/24 12/23/24 12/23/24 18:59 06:59 18:59 Intake Total 118 118 Balance 118 118 Intake: Oral 118 118 Other: Voiding Method Toilet Toilet # Voids 4 2 - Labs CBC & Chem 7: 12/22/24 07:44 12/22/24 07:44 Labs: Microbiology - Last 24 Hours (Table) 12/20/24 20:18 Blood Culture - Preliminary Blood 12/21/24 17:47 Gram Stain - Preliminary Breast - Right Wound Culture - Preliminary
--- NOTE | 2024-12-23 12:28 | P.PN ---
Subjective Progress Note Date: 12/23/24 Principal diagnosis: Reason for follow-up with right breast abscess Patient is a 49-year-old female with a past medical history significant for coronary artery disease diabetes mellitus hypertension hyperlipidemia pneumonia atrial fibrillation and a history of recurrent breast abscess presented to hospital with increasing pain swelling to the right breast area concerning for an abscess. Patient did have spontaneous drainage evening of 12/21/2024 On today's evaluation that is 12/23/2024,the patient remains to be afebrile, patient is on room air not requiring supplemental oxygen and denies any shortness of breath no chest pain or cough.Patient denies having any nausea or vomiting, no abdominal pain and no diarrhea patient pain to right breast has decreased in intensity. Patient did not have lab draw today cultures are pending Objective - Vital Signs Vital signs: Vital Signs Temp 98.2 F 12/23/24 07:53 Pulse 82 12/23/24 07:53 Resp 16 12/23/24 07:53 BP 126/76 12/23/24 07:53 Pulse Ox 98 12/23/24 07:53 FiO2 Intake & Output 12/22/24 12/23/24 12/23/24 18:59 06:59 18:59 Intake Total 118 118 Balance 118 118 Intake: Oral 118 118 Other: Voiding Method Toilet Toilet # Voids 4 2 - Exam GENERAL DESCRIPTION: Middle-age female lying in bed in no distress RESPIRATORY SYSTEM: Unlabored breathing , decreased breath sounds at bases HEART: S1 S2 regular rate and rhythm , ABDOMEN: Soft , no tenderness EXTREMITIES: No edema feet - Labs CBC & Chem 7: 12/22/24 07:44 12/22/24 07:44 Labs: Abnormal Lab Results - Last 24 Hours (Table) 12/22/24 Range/Units 07:44 WBC 3.31 L (4.50-10.00) X 10*3/uL RBC 3.37 L (4.10-5.20) X 10*6/uL Hgb 8.1 L (12.0-15.0) g/dL Hct 28.5 L (37.2-46.3) % MCH 24.0 L (27.0-32.0) pg MCHC 28.4 L (32.0-37.0) g/dL RDW 18.6 H (11.5-14.5) % Plt Count 79 L (140-440) X 10*3/uL Microbiology - Last 24 Hours (Table) 12/20/24 20:18 Blood Culture - Preliminary Blood 12/21/24 17:47 Gram Stain - Preliminary Breast - Right Wound Culture - Preliminary Assessment and Plan (1) Breast abscess Current Visit: Yes Status: Acute Code(s): N61.1 - ABSCESS OF THE BREAST AND NIPPLE SNOMED Code(s): 91037476 Plan: 1patient presented to hospital with increasing pain and swelling to the right breast area and this patient who do have history of recurrent breast abscess last aspirated from the breast was on 05/18/2024 that did grew Prevotella could be the same pathogen versus Staph aureus. 2patient did have spontaneous drainage, fluid has been sent for culture which are currently pending 3-patient currently being treated with vancomycin pharmacy to dose and Unasyn while waiting for the culture to finalize to determine discharge antibiotics Dictation was produced using [employer] dictation software. please excuse any grammatical, word or spelling errors. Time with Patient: Less than 30
--- NOTE | 2024-12-23 14:20 | P.PN ---
Subjective Progress Note Date: 12/23/24 Hospital course: Patient is a 49-year-old female with a past medical history of CAD status post CABG x 3 and stent placement, hypertension, hyperlipidemia, paroxysmal atrial fibrillation not on anticoagulation, carotid stenosis status post bilateral stent placement, and recurrent breast abscesses. She presented to the hospital on 12/20/2024 secondary to reports of right breast pain and concerns of recurrent abscess. Upon arrival to our facility, patient underwent evaluation in the emergency department. Vital signs upon arrival show blood pressure 115/77, heart rate 81, respiratory rate 18, temp 99.8 F, and SpO2 of 99% on room air. Ultrasound right breast completed showing a 1.5 x 1 x 1.7 cm heterogeneous area seen with peripheral vascularity compatible with abscess. On admission labs completed and reviewed. CBC showing bicytopenia with hemoglobin of 9.9 and platelet count of 110. BMP unremarkable. Blood glucose 127. Lactic acid 1.2. Liver profile showing elevated AST of 48 and ALT of 34 with alkaline phosphatase of 187. Albumin was low at 3.0. Patient was started on broad-spectrum antibiotics and admitted under our services with consultation to general surgery and infectious disease. Physical exam: Patient seen and evaluated at bedside. She reports significant improvement of pain today. She does report that her nipple has been inverting but is currently normal at this time and she discussed in detail with surgeon whom stated no further workup at this time. She denies any other complaints or needs at this time. Vital signs reviewed and stable. General: Nontoxic, no distress and appears stated age. Derm: Skin warm and dry, normal coloration for ethnicity. Patient with mild erythema to right breast, improving. No firm palpable abscess noted. Patient does have lymphadenopathy in upper lateral breast and axillary region Head: Atraumatic, normocephalic and symmetric. Eyes: EOM's intact, no lid lag, and anicteric sclera Mouth: no lip lesions, mucus membranes moist Cardiovascular: regular rate and rhythm with normal S1S2, no murmur, positive posterior tibial pulses bilaterally, and cap refill < 2 seconds. Lungs: Respirations even, regular, and unlabored on room air. Lungs CTA bilaterally, no rhonchi, no rales, no wheezing, and no accessory muscle usage. Abdominal: soft, nontender to palpation, no guarding, no appreciable organomegaly Ext: ROM intact. No gross muscle atrophy, no edema, no contractures Neuro: Speech clear, face symmetrical and CN II-XII grossly intact with no noted focal neuro deficits Psych: Alert and oriented to person, place, time, and situation. Appropriate and pleasant affect. Assessment and Plan of Care: Recurrent breast abscess, right breast -Continue IV antibiotics with vancomycin 1500 mg every 12 hours and Unasyn 3 g every 6 hours. Closely monitor renal function and vancomycin trough for any signs of vancomycin associated renal toxicity. Vancomycin trough therapeutic at 16.4. -Symptomatic care and pain management. Tylenol 650 mg every 6 hours as needed for mild pain/fever, Toradol 15 mg IVP every 6 hours as needed for moderate logan n, and Dilaudid 0.5 mg every 3 hours as needed for severe pain. -General Surgery consulted for possible I&D. Discussed with general surgery PA secondary to abscess draining on its own, no need for I&D or further intervention at this time. -Infectious disease following, reviewed documentation in chart. -Follow-up on blood culture and wound culture results. Pancytopenia -Chronic and appears to be slightly worsened from baseline. Likely reactive secondary to infection. Continue to monitor closely with repeat morning CBC. CAD status post CABG x 3 and stent placement Hypertension Hyperlipidemia Paroxysmal atrial fibrillation Carotid stenosis status post bilateral stent placement -Continue cardiac medication regimen with aspirin 81 mg daily, atorvastatin 40 mg daily, Farxiga 5 mg daily, Cozaar 12.5 mg daily, midodrine 2.5 mg 3 times daily and metoprolol 25 mg twice daily. Data and imaging reviewed: Vital signs reviewed. Blood pressure 126/76, heart rate 82, respiratory rate 16, temp 98.2 F, and SpO2 of 98% on room air. Morning labs reviewed. CBC showing pancytopenia with WBC count of 3.31, hemoglobin 8.1, and platelet count of 79. BMP showing hyperchloremia with chloride of 113 otherwise normal findings. Blood glucose 102. Magnesium 1.6. Liver profile showing elevated alkaline phosphatase of 154. Albumin low at 2.8. Vancomycin trough therapeutic at 16.4. CODE STATUS Full Code DVT prophylaxis: Heparin Discussed with: Patient, patient's spouse at bedside, RN and general surgery PA Anticipated discharge date: Pending blood culture and wound culture results. Anticipated discharge place: Home Patient was seen independently by Nurse Pracitioner. This document was prepared using [employer] dictation software. Please allow for errors in buggyman, while rare they do occur. Mervin Mendoza NP rendered care for this patient independently, reviewed the findings and plan as documented in the note above and agree with plan. I did not physically speak with or examine the patient on this date. Objective - Vital Signs Vital signs: Vital Signs Temp 98.2 F 12/23/24 07:53 Pulse 82 12/23/24 07:53 Resp 16 12/23/24 07:53 BP 126/76 12/23/24 07:53 Pulse Ox 98 12/23/24 07:53 FiO2 Intake & Output 12/22/24 12/23/24 12/23/24 18:59 06:59 18:59 Intake Total 118 118 Balance 118 118 Intake: Oral 118 118 Other: Voiding Method Toilet Toilet # Voids 4 2 - Labs CBC & Chem 7: 12/22/24 07:44 12/22/24 07:44 Labs: Abnormal Lab Results - Last 24 Hours (Table) 12/22/24 12/22/24 Range/Units 07:44 07:44 WBC 3.31 L (4.50-10.00) X 10*3/uL RBC 3.37 L (4.10-5.20) X 10*6/uL Hgb 8.1 L (12.0-15.0) g/dL Hct 28.5 L (37.2-46.3) % MCH 24.0 L (27.0-32.0) pg MCHC 28.4 L (32.0-37.0) g/dL RDW 18.6 H (11.5-14.5) % Plt Count 79 L (140-440) X 10*3/uL Chloride 113 H (96-109) mmol/L Anion Gap 3.90 L (4.00-12.00) mmol/L BUN 7.9 L (9.0-27.0) mg/dL Calcium 8.1 L (8.7-10.3) mg/dL Alkaline Phosphatase 154 H (41-126) U/L Total Protein 5.3 L (6.2-8.2) g/dL Albumin 2.8 L (3.8-4.9) g/dL Albumin/Globulin Ratio 1.12 L (1.60-3.17) Ratio Microbiology - Last 24 Hours (Table) 12/21/24 17:47 Gram Stain - Preliminary Breast - Right Wound Culture - Preliminary
[2024-12-24 06:37] LABS: African American GFR (CKD) >90 (>60 ml/min/1.73 sqM); Anion Gap 4 mmol/L; Blood Urea Nitrogen 6 mg/dL (7-17); Carbon Dioxide 22 mmol/L (22-30); Chloride 112 mmol/L (98-107); Glucose 100 mg/dL (74-99); Magnesium 1.7 mg/dL (1.6-2.3); Non-African American GFR(CKD) >90 (>60 ml/min/1.73 sqM); Potassium 3.7 mmol/L (3.5-5.1); Sodium 138 mmol/L (137-145)
[2024-12-24 09:15] LABS: Elliptocytes 2+ (None Seen); HCT 27.3 % (37.2-46.3); HGB 7.8 g/dL (12.0-15.0); MCH 23.8 pg (27.0-32.0); MCHC 28.6 g/dL (32.0-37.0); MCV 83.2 FL (80.0-97.0); NRBC Per 100 WBC 0 X 10*3/uL (0.00-0.01); Platelet Count 78 X 10*3/uL (140-440); RBC 3.28 X 10*6/uL (4.10-5.20); RDW 18.9 % (11.5-14.5)
--- NOTE | 2024-12-24 11:08 | P.PN ---
Subjective Progress Note Date: 12/24/24 SURGICAL PROGRESS NOTE CHIEF COMPLAINT: Right breast abscess HISTORY OF PRESENT ILLNESS: Patient reports improvement in the right breast pain and swelling. She has had no further drainage. She does complain of some discomfort in the right upper chest wall above the breast. Overall patient reports that she is feeling better. Afebrile. WBC is 3.30 Hgb 7.8 platelets 78 PHYSICAL EXAM: VITAL SIGNS: Reviewed. GENERAL: Well-developed in no acute distress. Breast: Right breast no erythema. No drainage. Areola and nipple area is softer. Mild tenderness with palpation. She does have tenderness to palpation in the right upper chest wall. ASSESSMENT: 1. Right breast abscess improving 2. History of recurrent breast abscesses PLAN: -Continue antibiotics per ID service -Continue warm compresses -No surgical intervention planned -Patient can be discharged from surgical standpoint Physician Political Reporter note has been reviewed by physician. Signing provider agrees with the documented findings, assessment, and plan of care. Objective - Vital Signs Vital signs: Vital Signs Temp 98.0 F 12/24/24 08:00 Pulse 82 12/24/24 08:00 Resp 17 12/24/24 08:00 BP 135/83 12/24/24 08:00 Pulse Ox 98 12/24/24 08:00 FiO2 Intake & Output 12/23/24 12/24/24 12/24/24 18:59 06:59 18:59 Intake Total 118 118 Balance 118 118 Intake: Oral 118 118 Other: Voiding Method Toilet # Voids 6 2 - Labs CBC & Chem 7: 12/24/24 05:28 12/24/24 05:25 Labs: Abnormal Lab Results - Last 24 Hours (Table) 12/24/24 12/24/24 Range/Units 05:25 05:28 WBC 3.30 L (4.50-10.00) X 10*3/uL RBC 3.28 L (4.10-5.20) X 10*6/uL Hgb 7.8 L (12.0-15.0) g/dL Hct 27.3 L (37.2-46.3) % MCH 23.8 L (27.0-32.0) pg MCHC 28.6 L (32.0-37.0) g/dL RDW 18.9 H (11.5-14.5) % Plt Count 78 L (140-440) X 10*3/uL Elliptocytes 2+ A (None Seen) Chloride 112 H (98-107) mmol/L BUN 6 L (7-17) mg/dL Glucose 100 H (74-99) mg/dL Calcium 8.0 L (8.4-10.2) mg/dL Microbiology - Last 24 Hours (Table) 12/21/24 17:47 Anaerobic Culture - Preliminary Breast - Right 12/21/24 17:47 Gram Stain - Preliminary Breast - Right Wound Culture - Preliminary Coagulase Negative Staph Alpha Hemolytic Streptococcus 12/20/24 20:18 Blood Culture - Preliminary Blood
[2024-12-24] MEDS: FUROSEMIDE 10 MG/ML 4 ML VIAL IV STA (12:24)
[2024-12-24] MEDS: MAGNESIUM SULFATE-D5W PMX 1 GM in DEXTROSE/WATER 1 100ML.BAG IVPB SCH (14:30)
--- NOTE | 2024-12-24 15:33 | P.PN ---
Subjective Progress Note Date: 12/24/24 Principal diagnosis: Reason for follow-up with right breast abscess Patient is a 49-year-old female with a past medical history significant for coronary artery disease diabetes mellitus hypertension hyperlipidemia pneumonia atrial fibrillation and a history of recurrent breast abscess presented to hospital with increasing pain swelling to the right breast area concerning for an abscess. Patient did have spontaneous drainage evening of 12/21/2024 On today's evaluation that is 12/24/2024, the patient continues to be afebrile, the patient is on room air and breathing comfortably, the Pt denies having any chest pain or cough, the patient denies having any abdominal pain no vomiting or any diarrhea mention pain to the right breast slightly decreased in intensity. Patient white count is 3.30, creatinine 0.59 local culture growing Streptococcus and coagulase-negative staph Objective - Vital Signs Vital signs: Vital Signs Temp 98.0 F 12/24/24 08:00 Pulse 82 12/24/24 08:00 Resp 17 12/24/24 08:00 BP 135/83 12/24/24 08:00 Pulse Ox 98 12/24/24 08:00 FiO2 Intake & Output 12/23/24 12/24/24 12/24/24 18:59 06:59 18:59 Intake Total 118 118 Balance 118 118 Intake: Oral 118 118 Other: Voiding Method Toilet # Voids 6 2 - Exam GENERAL DESCRIPTION: Middle-age female lying in bed in no distress RESPIRATORY SYSTEM: Unlabored breathing , decreased breath sounds at bases HEART: S1 S2 regular rate and rhythm , ABDOMEN: Soft , no tenderness EXTREMITIES: No edema feet - Labs CBC & Chem 7: 12/24/24 05:28 12/24/24 05:25 Labs: Abnormal Lab Results - Last 24 Hours (Table) 12/24/24 12/24/24 Range/Units 05:25 05:28 WBC 3.30 L (4.50-10.00) X 10*3/uL RBC 3.28 L (4.10-5.20) X 10*6/uL Hgb 7.8 L (12.0-15.0) g/dL Hct 27.3 L (37.2-46.3) % MCH 23.8 L (27.0-32.0) pg MCHC 28.6 L (32.0-37.0) g/dL RDW 18.9 H (11.5-14.5) % Plt Count 78 L (140-440) X 10*3/uL Elliptocytes 2+ A (None Seen) Chloride 112 H (98-107) mmol/L BUN 6 L (7-17) mg/dL Glucose 100 H (74-99) mg/dL Calcium 8.0 L (8.4-10.2) mg/dL Microbiology - Last 24 Hours (Table) 12/21/24 17:47 Anaerobic Culture - Preliminary Breast - Right 12/21/24 17:47 Gram Stain - Preliminary Breast - Right Wound Culture - Preliminary Coagulase Negative Staph Alpha Hemolytic Streptococcus 12/20/24 20:18 Blood Culture - Preliminary Blood Assessment and Plan (1) Breast abscess Current Visit: Yes Status: Acute Code(s): N61.1 - ABSCESS OF THE BREAST AND NIPPLE SNOMED Code(s): 96021706 Plan: 1patient presented to hospital with increasing pain and swelling to the right breast area and this patient who do have history of recurrent breast abscess last aspirated from the breast was on 05/18/2024 that did grew Prevotella could be the same pathogen versus Staph aureus. 2patient did have spontaneous drainage, fluid has been sent for culture which are currently growing Streptococcus and COVID is negative staph 3-patient currently being treated with vancomycin pharmacy to dose and Unasyn plan will be for oral doxycycline and Augmentin on discharge Dictation was produced using [employer] dictation software. please excuse any grammatical, word or spelling errors. Time with Patient: Less than 30
--- NOTE | 2024-12-24 17:25 | P.PN ---
Subjective Progress Note Date: 12/24/24 Hospital course: Patient is a 49-year-old female with a past medical history of CAD status post CABG x 3 and stent placement, hypertension, hyperlipidemia, paroxysmal atrial fibrillation not on anticoagulation, carotid stenosis status post bilateral stent placement, and recurrent breast abscesses. She presented to the hospital on 12/20/2024 secondary to reports of right breast pain and concerns of recurrent abscess. Upon arrival to our facility, patient underwent evaluation in the emergency department. Vital signs upon arrival show blood pressure 115/77, heart rate 81, respiratory rate 18, temp 99.8 F, and SpO2 of 99% on room air. Ultrasound right breast completed showing a 1.5 x 1 x 1.7 cm heterogeneous area seen with peripheral vascularity compatible with abscess. On admission labs completed and reviewed. CBC showing bicytopenia with hemoglobin of 9.9 and platelet count of 110. BMP unremarkable. Blood glucose 127. Lactic acid 1.2. Liver profile showing elevated AST of 48 and ALT of 34 with alkaline phosphatase of 187. Albumin was low at 3.0. Patient was started on broad-spectrum antibiotics and admitted under our services with consultation to general surgery and infectious disease. Physical exam: Patient seen and evaluated at bedside. She reports feeling slightly better each day. Continues to report abscess site tender along with tenderness to areas of lymphadenopathy in axillary and right upper lateral breast. Vital signs reviewed and stable. General: Nontoxic, no distress and appears stated age. Derm: Skin warm and dry, normal coloration for ethnicity. Patient with mild erythema to right breast, improving. No firm palpable abscess noted. Patient does have lymphadenopathy in upper lateral breast and axillary region Head: Atraumatic, normocephalic and symmetric. Eyes: EOM's intact, no lid lag, and anicteric sclera Mouth: no lip lesions, mucus membranes moist Cardiovascular: regular rate and rhythm with normal S1S2, no murmur, positive posterior tibial pulses bilaterally, and cap refill < 2 seconds. Lungs: Respirations even, regular, and unlabored on room air. Lungs CTA bilaterally, no rhonchi, no rales, no wheezing, and no accessory muscle usage. Abdominal: soft, nontender to palpation, no guarding, no appreciable organomegaly Ext: ROM intact. No gross muscle atrophy, no edema, no contractures Neuro: Speech clear, face symmetrical and CN II-XII grossly intact with no noted focal neuro deficits Psych: Alert and oriented to person, place, time, and situation. Appropriate and pleasant affect. Assessment and Plan of Care: Recurrent breast abscess, right breast -Continue IV antibiotics with vancomycin 1500 mg every 12 hours and Unasyn 3 g every 6 hours. Closely monitor renal function and vancomycin trough for any signs of vancomycin associated renal toxicity. Vancomycin trough therapeutic at 16.4. -Symptomatic care and pain management. Tylenol 650 mg every 6 hours as needed for mild pain/fever, Toradol 15 mg IVP every 6 hours as needed for moderate logan n, and Dilaudid 0.5 mg every 3 hours as needed for severe pain. -General Surgery consulted for possible I&D. Discussed with general surgery PA secondary to abscess draining on its own, no need for I&D or further intervention at this time. -Infectious disease following, reviewed documentation in chart. -Wound Culture preliminarily for coagulase negative staph and alphahemolytic Streptococcus, awaiting final culture and sensitivity report. -Blood cultures showing no growth to date. Pancytopenia -With chronic bicytopenia currently with pancytopenia and appears to be slightly worsening.. Likely reactive secondary to infection. Continue to monitor clos hola with repeat morning CBC. CAD status post CABG x 3 and stent placement Hypertension Hyperlipidemia Paroxysmal atrial fibrillation Carotid stenosis status post bilateral stent placement -Continue cardiac medication regimen with aspirin 81 mg daily, atorvastatin 40 mg daily, Farxiga 5 mg daily, Cozaar 12.5 mg daily, midodrine 2.5 mg 3 times daily and metoprolol 25 mg twice daily. Data and imaging reviewed: Vital signs reviewed. Blood pressure 135/83, heart rate 82, respiratory rate 17, temp 98.0 F, and SpO2 of 98% on room air. Morning labs reviewed. CBC showing pancytopenia with WBC count of 3.30, hemoglobin 7.8, and platelet count of 78. BMP showing hyperchloremia with chloride of 112 otherwise normal findings. Blood glucose 100. Magnesium 1.6. Vancomycin trough therapeutic at 16.4. CODE STATUS Full Code DVT prophylaxis: Heparin Anticipated discharge date: Pending finalization of wound culture and sensitivity report Anticipated discharge place: Home Patient was seen independently by Nurse Pracitioner. This document was prepared using [employer] dictation software. Please allow for errors in sanitary plumber, while rare they do occur. Mervin Mendoza NP rendered care for this patient independently, reviewed the findings and plan as documented in the note above and agree with plan. I did not physically speak with or examine the patient on this date. Objective - Vital Signs Vital signs: Vital Signs Temp 98.0 F 12/24/24 08:00 Pulse 82 12/24/24 08:00 Resp 17 12/24/24 08:00 BP 135/83 12/24/24 08:00 Pulse Ox 98 12/24/24 08:00 FiO2 Intake & Output 12/23/24 12/24/24 12/24/24 18:59 06:59 18:59 Intake Total 118 118 Balance 118 118 Intake: Oral 118 118 Other: Voiding Method Toilet # Voids 6 2 - Labs CBC & Chem 7: 12/24/24 05:28 12/24/24 05:25 Labs: Abnormal Lab Results - Last 24 Hours (Table) 12/24/24 12/24/24 Range/Units 05:25 05:28 WBC 3.30 L (4.50-10.00) X 10*3/uL RBC 3.28 L (4.10-5.20) X 10*6/uL Hgb 7.8 L (12.0-15.0) g/dL Hct 27.3 L (37.2-46.3) % MCH 23.8 L (27.0-32.0) pg MCHC 28.6 L (32.0-37.0) g/dL RDW 18.9 H (11.5-14.5) % Plt Count 78 L (140-440) X 10*3/uL Elliptocytes 2+ A (None Seen) Chloride 112 H (98-107) mmol/L BUN 6 L (7-17) mg/dL Glucose 100 H (74-99) mg/dL Calcium 8.0 L (8.4-10.2) mg/dL Microbiology - Last 24 Hours (Table) 12/21/24 17:47 Anaerobic Culture - Preliminary Breast - Right 12/21/24 17:47 Gram Stain - Preliminary Breast - Right Wound Culture - Preliminary Coagulase Negative Staph Alpha Hemolytic Streptococcus 12/20/24 20:18 Blood Culture - Preliminary Blood
--- NOTE | 2024-12-25 09:34 | P.PN ---
Subjective Progress Note Date: 12/25/24 Patient main stable. Her breast abscess has healed significantly. On exam vital signs are stable. Abdomen soft. There is almost no induration or inflammation around her breast abscess site. Patient be discharged home per medical service. Objective - Vital Signs Vital signs: Vital Signs Temp 98.4 F 12/25/24 02:00 Pulse 81 12/25/24 02:00 Resp 17 12/25/24 02:00 BP 117/63 12/25/24 02:00 Pulse Ox 96 12/25/24 02:00 FiO2 Intake & Output 12/24/24 12/25/24 12/25/24 18:59 06:59 18:59 Intake Total 236 Balance 236 Intake: Oral 236 Other: Voiding Method Toilet Toilet # Voids 2 - Labs CBC & Chem 7: 12/24/24 05:28 12/24/24 05:25 Labs: Microbiology - Last 24 Hours (Table) 12/20/24 20:18 Blood Culture - Preliminary Blood 12/21/24 17:47 Gram Stain - Final Breast - Right Wound Culture - Final Staph hominis sub sp. hominis Viridans streptococcus group
[2024-12-25 10:03] VITALS: BP 106/72; PULSE 75; RESP 16; TEMP 98
[2024-12-25 10:26] LABS: ALT 27 U/L (8-44); AST 39 U/L (13-35); Albumin 2.7 g/dL (3.8-4.9); Albumin/Globulin Ratio 1.17 Ratio (1.60-3.17); Alkaline Phosphatase 169 U/L (41-126); BUN/Creat Ratio 8.14 Ratio (12.00-20.00); Blood Urea Nitrogen 5.7 mg/dL (9.0-27.0); Calcium 7.9 mg/dL (8.7-10.3); Chloride 112 mmol/L (96-109); Globulin 2.3 g/dL (1.6-3.3); Glucose 121 mg/dL (70-110); Magnesium 1.8 mg/dL (1.5-2.4); Potassium 3.9 mmol/L (3.5-5.5); Sodium 143 mmol/L (135-145); Total Bilirubin 0.5 mg/dL (0.3-1.2)
[2024-12-25 10:46] LABS: Elliptocytes 2+ (None Seen); HCT 27.6 % (37.2-46.3); HGB 7.6 g/dL (12.0-15.0); Immature Platelet Fraction 11.9 % (1.1-6.1); MCH 23.4 pg (27.0-32.0); MCHC 27.5 g/dL (32.0-37.0); MCV 84.9 FL (80.0-97.0); NRBC Per 100 WBC 0 X 10*3/uL (0.00-0.01); Platelet Count 77 X 10*3/uL (140-440); RBC 3.25 X 10*6/uL (4.10-5.20); RDW 19.1 % (11.5-14.5); WBC 3.11 X 10*3/uL (4.50-10.00)
--- NOTE | 2024-12-25 12:16 | P.DS ---
Providers Date of admission: 12/20/24 19:34 Expected date of discharge: 12/25/24 Attending physician: Milagro Yates MD Consults: 12/20/24 20:10 Consult Physician Urgent Consulting Provider: Cuate Olson Consult Reason/Comments: Breast abscess Do you want consulting provider notified?: Yes, Notify in am 12/21/24 09:44 Consult Physician Routine Consulting Provider: Meaghan Robins Consult Reason/Comments: recurrent breast abscess Do you want consulting provider notified?: Yes Primary care physician: Sara Velarde MD Hospital Course: Discharge Diagnosis: Recurrent breast abscess, right breast. Wound cultures positive for Staph hominis and viridans Streptococcus group. Blood Cultures showing no growth to date. Patient received 4-day course of IV antibiotics with Unasyn and vancomycin. She was evaluated by general surgeon for possible I&D however abscess spontaneously drained without intervention. Infectious disease evaluated and per Dr. Robins's recommendations patient being discharged home on Zyvox 600 mg twice daily for an additional 10 days. Patient to follow-up outpatient with PCP in 1 to 2 days and with breast surgeon, Dr. Familia Mendez in 1 week. Pancytopenia. With chronic bicytopenia currently with pancytopenia and appears to be slightly worsening.. Likely reactive secondary to infection. . CAD status post CABG x 3 and stent placement. Continue cardiac medication regimen with aspirin 81 mg daily, atorvastatin 40 mg daily, Farxiga 5 mg daily, Cozaar 12.5 mg daily, midodrine 2.5 mg 3 times daily and metoprolol 25 mg twice daily. Hypertension. Continue medication regimen with Cozaar 12.5 mg daily, midodrine 2.5 mg 3 times daily and metoprolol 25 mg twice daily. Hyperlipidemia. Continue medication regimen with atorvastatin 40 mg daily. Paroxysmal atrial fibrillation. Not on anticoagulation, states was taken off by her doctor secondary to bicytopenia. [id number] score is 3. Carotid stenosis status post bilateral stent placement. Continue medication regimen with aspirin 81 mg daily and atorvastatin 40 mg daily. Hospital course: Patient is a 49-year-old female with a past medical history of CAD status post CABG x 3 and stent placement, hypertension, hyperlipidemia, paroxysmal atrial fibrillation not on anticoagulation, carotid stenosis status post bilateral stent placement, and recurrent breast abscesses. She presented to the hospital on 12/20/2024 secondary to reports of right breast pain and concerns of recurrent abscess. Upon arrival to our facility, patient underwent evaluation in the emergency department. Vital signs upon arrival show blood pressure 115/77, heart rate 81, respiratory rate 18, temp 99.8 F, and SpO2 of 99% on room air. Ultrasound right breast completed showing a 1.5 x 1 x 1.7 cm heterogeneous area seen with peripheral vascularity compatible with abscess. On admission labs completed and reviewed. CBC showing bicytopenia with hemoglobin of 9.9 and platelet count of 110. BMP unremarkable. Blood glucose 127. Lactic acid 1.2. Liver profile showing elevated AST of 48 and ALT of 34 with alkaline phosphatase of 187. Albumin was low at 3.0. Patient was started on broad-spectrum antibiotics and admitted under our services with consultation to general surgery and infectious disease. Wound cultures positive for Staph hominis and viridans Streptococcus group. Blood Cultures showing no growth to date. Patient received 4-day course of IV antibiotics with Unasyn and vancomycin. She was evaluated by general surgeon for possible I&D however abscess spontaneously drained without intervention. Infectious disease evaluated and per Dr. Robins's recommendations patient being discharged home on Zyvox 600 mg twice daily for an additional 10 days. Patient to follow-up outpatient with PCP in 1 to 2 days and with breast surgeon, Dr. Familia Mendez in 1 week. Physical exam: Vital signs reviewed and stable. General: Nontoxic, no distress and appears stated age. Derm: Skin warm and dry, normal coloration for ethnicity. Patient with mild erythema to right breast, improving. No firm palpable abscess noted. Patient does have mild lymphadenopathy in right upper lateral breast and axillary region Head: Atraumatic, normocephalic and symmetric. Eyes: EOM's intact, no lid lag, and anicteric sclera Mouth: no lip lesions, mucus membranes moist Cardiovascular: regular rate and rhythm with normal S1S2, no murmur, positive posterior tibial pulses bilaterally, and cap refill < 2 seconds. Lungs: Respirations even, regular, and unlabored on room air. Lungs CTA bilaterally, no rhonchi, no rales, no wheezing, and no accessory muscle usage. Abdominal: soft, nontender to palpation, no guarding, no appreciable organomegaly Ext: ROM intact. No gross muscle atrophy, no edema, no contractures Neuro: Speech clear, face symmetrical and CN II-XII grossly intact with no noted focal neuro deficits Psych: Alert and oriented to person, place, time, and situation. Appropriate and pleasant affect. A total of 38 minutes of time were spent preparing this complex discharge summary. Pt was discharged on 12/25/2024 at 12:15 PM. Patient was seen independently by Nurse Practitioner. This document was prepared using [employer] dictation software. Please allow for errors in camera technician while rare they do occur. Mervin Mendoza NP rendered care for this patient independently, reviewed the findings and plan as documented in the note above. I did not physically speak with or examine the patient on this date. Patient Condition at Discharge: Stable Plan - Discharge Summary Discharge Rx Participant: Yes New Discharge Prescriptions: New Linezolid [Zyvox] 600 mg PO Q12H 10 Days #20 tab HYDROcodone/APAP 5-325MG [[place] 5-325] 1 tab PO Q6HR PRN 3 Days #12 tab PRN Reason: Pain Continue Gabapentin [Neurontin] 300 mg PO HS Aspirin 81 mg PO DAILY tab Losartan [Cozaar] 12.5 mg PO DAILY Petrolat,White/Shlomo/8-Hydroxyqu [Bag [place]] 1 gm TOPICAL TID PRN gm PRN Reason: Dry Skin Metoprolol Tartrate [Lopressor] 25 mg PO BID Nystatin 100,000 Unit/gm Powd [Mycostatin Powder] 1 applic TOPICAL BID PRN 30 Days #10 each PRN Reason: Skin Irritation Nitroglycerin Sl Tabs [Nitrostat] 0.4 mg SL Q5M PRN PRN Reason: Chest Pain Ferrous Sulfate [Iron (65 MG Elemental)] 325 mg PO DAILY Empagliflozin [Jardiance] 10 mg PO DAILY Acetaminophen Tab [Tylenol] 650 mg PO Q6HR PRN #90 tab PRN Reason: Mild Pain Or Fever > 100.5 Atorvastatin Calcium [Lipitor] 40 mg PO DAILY Ondansetron Odt [Zofran ODT] 4 mg PO Q8HR PRN #20 tab PRN Reason: Nausea Omeprazole 20 mg PO DAILY Benzonatate [Tessalon Perles] 100 mg PO TID PRN PRN Reason: Cough Midodrine HCl [ProAmantine] 2.5 mg PO AC-TID Discontinued HYDROcodone/APAP 5-325MG [[place] 5-325] 1 tab PO Q6HR PRN 3 Days #12 tab PRN Reason: Breakthrough Pain Discharge Medication List Atorvastatin Calcium [Lipitor] 40 mg PO DAILY 09/15/24 [History] Gabapentin [Neurontin] 300 mg PO HS 09/23/24 [History] Aspirin 81 mg PO DAILY tab 10/01/24 [Rx] Losartan [Cozaar] 12.5 mg PO DAILY 10/03/24 [History] Ondansetron Odt [Zofran ODT] 4 mg PO Q8HR PRN #20 tab 10/14/24 [Rx] Petrolat,White/Shlomo/8-Hydroxyqu [Bag [place]] 1 gm TOPICAL TID PRN gm 10/14/24 [Rx] Metoprolol Tartrate [Lopressor] 25 mg PO BID 11/01/24 [History] Nystatin 100,000 Unit/gm Powd [Mycostatin Powder] 1 applic TOPICAL BID PRN 30 Days #10 each 11/16/24 [Rx] Omeprazole 20 mg PO DAILY 12/07/24 [History] Acetaminophen Tab [Tylenol] 650 mg PO Q6HR PRN #90 tab 12/15/24 [Rx] Benzonatate [Tessalon Perles] 100 mg PO TID PRN 12/15/24 [History] Empagliflozin [Jardiance] 10 mg PO DAILY 12/15/24 [History] Ferrous Sulfate [Iron (65 MG Elemental)] 325 mg PO DAILY 12/15/24 [History] Midodrine HCl [ProAmantine] 2.5 mg PO AC-TID 12/15/24 [History] Nitroglycerin Sl Tabs [Nitrostat] 0.4 mg SL Q5M PRN 12/15/24 [History] HYDROcodone/APAP 5-325MG [[place] 5-325] 1 tab PO Q6HR PRN 3 Days #12 tab 12/25/24 [Rx] Linezolid [Zyvox] 600 mg PO Q12H 10 Days #20 tab 12/25/24 [Rx] Follow up Appointment(s)/Referral(s): Maren Fajardo MD [STAFF PHYSICIAN] - 1 Week Sara Velarde MD [Primary Care Provider] - 1-2 days Patient Instructions/Handouts: Abscess (GEN) Activity/Diet/Wound Care/Special Instructions: Activity: As tolerated. Take breaks as needed. Diet: Heart healthy and carb consistent diet. Avoid salts, or foods with hidden salts such as canned or boxed foods and frozen dinners. Extra salt makes your heart work harder and traps the fluid in your body for longer. Special Instructions: Take all of your medications as directed and remember to keep all of your doctor's appointments and follow-up as needed. Thank you for allowing us to participate in your care, it was truly a pleasure having you for our patient!!! Discharge Disposition: HOME SELF-CARE
--- NOTE | 2024-12-25 13:46 | P.PN ---
Subjective Progress Note Date: 12/25/24 Principal diagnosis: Reason for follow-up with right breast abscess Patient is a 49-year-old female with a past medical history significant for coronary artery disease diabetes mellitus hypertension hyperlipidemia pneumonia atrial fibrillation and a history of recurrent breast abscess presented to hospital with increasing pain swelling to the right breast area concerning for an abscess. Patient did have spontaneous drainage evening of 12/21/2024 On today's evaluation that is 12/25/2024, patient did not have any fever and denies any chills, patient is breathing comfortably on room air, patient with no chest pain or cough patient did not have any abdominal pain nausea vomiting or any loose stools, the patient pain to the left breast has decreased in intensity as well as drainage. Patient white count is 3.11, creatinine 0.7 her local culture currently growing drug-resistant staph epi and viridans streptococci Objective - Vital Signs Vital signs: Vital Signs Temp 98.0 F 12/25/24 07:30 Pulse 75 12/25/24 07:30 Resp 16 12/25/24 07:30 BP 106/72 12/25/24 07:30 Pulse Ox 97 12/25/24 07:30 FiO2 Intake & Output 12/24/24 12/25/24 12/25/24 18:59 06:59 18:59 Intake Total 236 Balance 236 Intake: Oral 236 Other: Voiding Method Toilet Toilet # Voids 2 - Labs CBC & Chem 7: 12/25/24 05:24 12/25/24 05:24 Labs: Abnormal Lab Results - Last 24 Hours (Table) 12/25/24 12/25/24 Range/Units 05:24 05:24 WBC 3.11 L (4.50-10.00) X 10*3/uL RBC 3.25 L (4.10-5.20) X 10*6/uL Hgb 7.6 L (12.0-15.0) g/dL Hct 27.6 L (37.2-46.3) % MCH 23.4 L (27.0-32.0) pg MCHC 27.5 L (32.0-37.0) g/dL RDW 19.1 H (11.5-14.5) % Plt Count 77 L (140-440) X 10*3/uL Immature Plt Fraction 11.9 H (1.1-6.1) % Elliptocytes 2+ A (None Seen) Chloride 112 H (96-109) mmol/L BUN 5.7 L (9.0-27.0) mg/dL BUN/Creatinine Ratio 8.14 L (12.00-20.00) Ratio Glucose 121 H (70-110) mg/dL Calcium 7.9 L (8.7-10.3) mg/dL AST 39 H (13-35) U/L Alkaline Phosphatase 169 H (41-126) U/L Total Protein 5.0 L (6.2-8.2) g/dL Albumin 2.7 L (3.8-4.9) g/dL Albumin/Globulin Ratio 1.17 L (1.60-3.17) Ratio Microbiology - Last 24 Hours (Table) 12/20/24 20:18 Blood Culture - Preliminary Blood 12/21/24 17:47 Gram Stain - Final Breast - Right Wound Culture - Final Staph hominis sub sp. hominis Viridans streptococcus group Assessment and Plan (1) Breast abscess Current Visit: Yes Status: Acute Code(s): N61.1 - ABSCESS OF THE BREAST AND NIPPLE SNOMED Code(s): 04249960 Plan: 1patient presented to hospital with increasing pain and swelling to the right breast area and this patient who do have history of recurrent breast abscess last aspirated from the breast was on 05/18/2024 that did grew Prevotella could be the same pathogen versus Staph aureus. 2patient did have spontaneous drainage, fluid has been sent for culture which are currently growing Streptococcus and staph epi that is resistant to Bactrim and doxycycline 3-patient will be advised a 7-day course of oral Zyvox 600 mg twice daily on discharge this was discussed with the FIRE DISPATCHER for admitting team Dictation was produced using [employer] dictation software. please excuse any grammatical, word or spelling errors. Time with Patient: Less than 30
[2024-12-26] MEDS ORDERED: VANCOMYCIN TROUGH DUE 1 EACH MISC MISCELLANE ONE (08:00)
== END 2024-12-25 14:22 | disposition home or self-care (01) | DRG 600 ==
LOC: EC 16:59 → 6NMEDSUR 19:34 → OBSVTOIN 19:34 → 6NMEDSUR 22:40
PROVIDERS: ADMIT Internal Medicine; ATTEND Internal Medicine
DX: N61.1 Abscess of the breast and nipple (principal); D61.818 Other pancytopenia; I11.0 Hypertensive heart disease with heart failure; E11.9 Type 2 diabetes mellitus without complications; E78.5 Hyperlipidemia, unspecified; B95.4 Other streptococcus as the cause of diseases classified elsewhere; F31.9 Bipolar disorder, unspecified; K70.30 Alcoholic cirrhosis of liver without ascites; I65.23 Occlusion and stenosis of bilateral carotid arteries; I50.9 Heart failure, unspecified; F41.9 Anxiety disorder, unspecified; I25.10 Atherosclerotic heart disease of native coronary artery without angina pectoris; I48.0 Paroxysmal atrial fibrillation; Z79.82 Long term (current) use of aspirin; Z79.84 Long term (current) use of oral hypoglycemic drugs; Z79.899 Other long term (current) drug therapy; Z87.01 Personal history of pneumonia (recurrent); Z87.442 Personal history of urinary calculi; Z87.891 Personal history of nicotine dependence; Z95.1 Presence of aortocoronary bypass graft; Z95.5 Presence of coronary angioplasty implant and graft; Z98.51 Tubal ligation status; Z90.49 Acquired absence of other specified parts of digestive tract
CPT/HCPCS: 36415; 80048; 80053; 80202; 83605; 83735; 85025; 85027; 86140; 87040; 87070; 87075; 87077; 87186; 87205; 96365; 96366; 96367; 96372; 96375; 99285

== ENCOUNTER 2025-01-02 10:24 | Emergency (ER) | payer OTHER ==
[2025-01-02 10:27] VITALS: TEMP 98.6
--- NOTE | 2025-01-02 10:52 | ED ---
General Adult HPI - General Chief complaint: Shortness of Breath Stated complaint: GRANT Time Seen by Provider: 01/02/25 10:30 Source: patient, RN notes reviewed, old records reviewed Mode of arrival: ambulatory Limitations: no limitations - History of Present Illness Initial comments: This is a 49-year-old female who presents to the emergency department stating she has a catheter in her left lung because she kept accumulating fluid after her bypass surgery in August. Patient states it normally does not hurt but today she has had significant pain and feels like it is stabbing into her lung. Patient denies any anterior chest pain patient has shortness of breath or difficulty breathing. Patient has any fever chills or cough. Patient has abdom inal pain patient [place] any back pain. - Related Data Home Medications Medication Instructions Recorded Confirmed Atorvastatin Calcium [Lipitor] 40 mg PO DAILY 09/15/24 12/20/24 Gabapentin [Neurontin] 300 mg PO HS 09/23/24 12/20/24 Losartan [Cozaar] 12.5 mg PO DAILY 10/03/24 12/20/24 Metoprolol Tartrate [Lopressor] 25 mg PO BID 11/01/24 12/20/24 Omeprazole 20 mg PO DAILY 12/07/24 12/20/24 Benzonatate [Tessalon Perles] 100 mg PO TID PRN 12/15/24 12/20/24 Empagliflozin [Jardiance] 10 mg PO DAILY 12/15/24 12/20/24 Ferrous Sulfate [Iron (65 MG 325 mg PO DAILY 12/15/24 12/20/24 Elemental)] Midodrine HCl [ProAmantine] 2.5 mg PO AC-TID 12/15/24 12/20/24 Nitroglycerin Sl Tabs [Nitrostat] 0.4 mg SL Q5M PRN 12/15/24 12/20/24 Previous Rx's Medication Instructions Recorded Aspirin 81 mg PO DAILY tab 10/01/24 Ondansetron Odt [Zofran ODT] 4 mg PO Q8HR PRN #20 tab 10/14/24 Petrolat,White/Shlomo/8-Hydroxyqu 1 gm TOPICAL TID PRN gm 10/14/24 [Bag [place]] Nystatin 100,000 Unit/gm Powd 1 applic TOPICAL BID PRN 30 Days 11/16/24 [Mycostatin Powder] #10 each Acetaminophen Tab [Tylenol] 650 mg PO Q6HR PRN #90 tab 12/15/24 HYDROcodone/APAP 5-325MG [[place] 1 tab PO Q6HR PRN 3 Days #12 tab 12/25/24 5-325] Linezolid [Zyvox] 600 mg PO Q12H 10 Days #20 tab 12/25/24 Ketorolac [Toradol] 10 mg PO Q8HR #15 tab 01/02/25 Allergies Allergy/AdvReac Type Severity Reaction Status Date / Time capsaicin Allergy Rash/Hives/ Verified 01/02/25 10:27 Swelling Review of Systems ROS Statement: Those systems with pertinent positive or pertinent negative responses have been documented in the HPI. ROS Other: All systems not noted in ROS Statement are negative. Past Medical History Past Medical History: Atrial Fibrillation, Coronary Artery Disease (CAD), Heart Failure, Diabetes Mellitus, GERD/Reflux, Hyperlipidemia, Hypertension, Liver Disease, Pneumonia, Renal Disease, Syncope Additional Past Medical History / Comment(s): Hx pneumonia yrs ago. Hx kidney stones. Diet controlled diabetic. Seasonal allergies. Left internal carotid artery stenosis. Cirrhosis of liver. No menses in 4 1/2 yrs, states body does not make enough Estrogen. Recurrent pleural effusions. Pericardial effusion History of Any Multi-Drug Resistant Organisms: None Reported Past Surgical History: Appendectomy, Breast Surgery, Cholecystectomy, Coronary Bypass/CABG, Heart Catheterization With Stent, Orthopedic Surgery, Tubal Ligation Additional Past Surgical History / Comment(s): Right wrist carpal tunnel surgery, dental surgery- teeth removed, left breast abcess I&D X3, right breast abcess I&D X2, left ankle surgery, triple CABG 08/09/2024, multiple thoracentesis. Cardiac sents x2 and bilateral carotid stents. Left VATS with talc pleurodesis and placement of left-sided pleurx catheter 09/29/[address] Ortiz; subxiphoid pericardial window 10/04/2024 Past Anesthesia/Blood Transfusion Reactions: No Reported Reaction, Family History of Problems w/ Anesthesia Additional Past Anesthesia/Blood Transfusion Reaction / Comment(s): No blood transfusion to date. Mom stopped breathing during a surgery and was resuscitated. Date of Last Stent Placement:: 07/30/24 Past Psychological History: Anxiety, Bipolar, Depression Smoking Status: Former smoker Past Alcohol Use History: None Reported Past Drug Use History: None Reported - Past Family History Mother Family Medical History: Cancer Additional Family Medical History / Comment(s): schizoaffective disorder, unsure which type of cancer Father History Unknown: Yes Family Medical History: Unable to Obtain Additional Family Medical History / Comment(s): Patient did not know her father General Exam - General Exam Comments Initial Comments: GENERAL: Patient is well-developed and well-nourished. Patient is nontoxic and well- hydrated and is in mild distress. ENT: Neck is soft and supple. No significant lymphadenopathy is noted. Oropharynx is clear. Moist mucous membranes. Neck has full range of motion without eliciting any pain. EYES: The sclera were anicteric and conjunctiva were pink and moist. Extraocular movements were intact and pupils were equal round and reactive to light. Eyelids were unremarkable. PULMONARY: Unlabored respirations. Good breath sounds bilaterally. No audible rales rhonchi or wheezing was noted. Tube orifice shows no erythema around it and no obvious drainage CARDIOVASCULAR: There is a regular rate and rhythm without any murmurs gallops or rubs. ABDOMEN: Soft and nontender with normal bowel sounds. SKIN: Skin is clear with no lesions or rashes and otherwise unremarkable. NEUROLOGIC: Patient is alert and oriented x3. Cranial nerves II through XII are grossly intact. Motor and sensory are also intact. Normal speech, volume and content. Symmetrical smile. MUSCULOSKELETAL: Normal extremities with adequate strength and full range of motion. LYMPHATICS: No significant lymphadenopathy is noted PSYCHIATRIC: Normal psychiatric evaluation. Limitations: no limitations Course Vital Signs 01/02/25 01/02/25 01/02/25 10:24 10:29 11:57 Temperature 98.6 F Pulse Rate 82 89 Respiratory 16 20 18 Rate Blood Pressure 142/83 118/61 O2 Sat by Pulse 98 98 Oximetry 01/02/25 13:06 Temperature Pulse Rate 68 Respiratory 18 Rate Blood Pressure 111/65 O2 Sat by Pulse 98 Oximetry Medical Decision Making - Medical Decision Making Was pt. sent in by a medical professional or institution (, PA, [employer]ER, urgent care, hospital, or [facility]...) When possible be specific @ -No Did you speak to anyone other than the patient for history (EMS, parent, family, police, friend...)? What history was obtained from this source @ -No Did you review nursing and triage notes (agree or disagree)? Why? @ -I reviewed and agree with nursing and triage notes Were old charts reviewed (outside hosp., previous admission, EMS record, old EKG, old radiological studies, urgent care reports/EKG's, [facility] records)? Report findings @ -I compared today's chest x-ray with prior chest x-ray and showed no changes catheter is in the same spot Differential Diagnosis? @ -Differential Chest Pain: Stable Angina, Unstable Angina, STEMI, NSTEMI Aortic Dissection, Pneumothorax, Musculoskeletal, Esophageal Spasm GERD, Cholecystitis, Pancreatitis, Zoster, this is not meant to be an all-inclusive list. EKG interpreted by me (3pts min.). @ -As above X-rays interpreted by me (1pt min.). @ -Chest x-ray shows the catheter in the same place as it was before and no pleural effusion. CT interpreted by me (1pt min.). @ -None done U/S interpreted by me (1pt. min.). @ -None done What testing was considered but not performed or refused? (CT, X-rays, U/S, labs)? Why? @ -None What meds were considered but not given or refused? Why? @ -None Did you discuss the management of the patient with other professionals (professionals i.e. , PA, [employer], lab, RT, psych nurse, rn social work, design technician, teacher, adult parole officer, showcase trimmer)? Give summary @ -No Was smoking cessation discussed for >3mins.? @ -No Was critical care preformed (if so, how long)? @ -No Were there social determinants of health that impacted care today? How? (Homelessness, low income, unemployed, alcoholism, drug addiction, transportation, low edu. Level, literacy, decrease access to med. care, fdc, rehab)? @ -No Was there de-escalation of care discussed even if they declined (Discuss DNR or withdrawal of care, Hospice)? DNR status @ -No What co-morbidities impacted this encounter? (DM, HTN, Smoking, COPD, CAD, Cancer, CVA, ARF, Chemo, Hep., AIDS, mental health diagnosis, sleep apnea, morbid obesity)? @ -None Was patient admitted / discharged? Hospital course, mention meds given and route, prescriptions, significant lab abnormalities, going to OR and other pertinent info. @ -Patient received Dilaudid and Toradol and was feeling much better and will follow up with her physician Undiagnosed new problem with uncertain prognosis? @ -No Drug Therapy requiring intensive monitoring for toxicity (Heparin, Nitro, Insulin, Cardizem)? @ -No Were any procedures done? @ -No Diagnosis/symptom? @ -Pleuritic chest pain Acute, or Chronic, or Acute on Chronic? @ -Acute Uncomplicated (without systemic symptoms) or Complicated (systemic symptoms)? @ -Uncomplicated Side effects of treatment? @ -No Exacerbation, Progression, or Severe Exacerbation? @ -No Poses a threat to life or bodily function? How? (Chest pain, USA, ND, pneumonia, PE, COPD, DKA, ARF, appy, cholecystitis, CVA, Diverticulitis, Homicidal, Suicidal, threat to staff... and all critical care pts) @ -No Disposition Clinical Impression: Pleuritic chest pain Disposition: HOME SELF-CARE Instructions (If sedation given, give patient instructions): Pleurisy (ED) Prescriptions: Ketorolac [Toradol] 10 mg PO Q8HR #15 tab Is patient prescribed a controlled substance at d/c from ED?: No Referrals: Sara Velarde MD [Primary Care Provider] - 1-2 days Time of Disposition: 13:30
[2025-01-02] MEDS: KETOROLAC 15 MG/ML 1 ML VIAL IVP STA (11:07)
[2025-01-02] MEDS: HYDROmorphone 0.5 MG/0.5 ML SYRINGE IVP STA ×2 (11:07→13:05)
--- NOTE | 2025-01-02 11:32 | XR ---
EXAMINATION TYPE: XR chest 2V DATE OF EXAM: 01/02/2025 11:25 AM COMPARISON: Chest radiographs from 12/14/2024, CTA chest 12/07/2024 TECHNIQUE: XR chest 2V Frontal and lateral views of the chest. CLINICAL INDICATION:Female, 49 years old with history of Difficulty breathing ; FINDINGS: Lungs/Pleura: There is no evidence of pleural effusion or focal consolidation. No sizable pneumothora x. Pulmonary vascularity: Unremarkable. Heart/mediastinum: Cardiomediastinal silhouette is enlarged and stable. Post-CABG changes. Left atri al appendage occlusion devices present. Musculoskeletal: No acute osseous pathology. Midline sternotomy wires are noted and stable. Other findings: None Lines/Tubes: Stable position of left pleural catheter towards the medial upper lung. IMPRESSION: 1. No acute cardiopulmonary disease/process. 2. Stable position of left pleural catheter. 3. Post CABG changes. [facility], , 01/02/2025 11:29 AM
[2025-01-02 11:58] VITALS: RESP 18
[2025-01-02] MEDS: ACET/COD 300 MG/30 MG STARTER PACK 6 TAB BTL PO STA (14:01)
[2025-01-02 14:04] VITALS: BP 109/55; PULSE 70
== END 2025-01-02 14:11 | disposition home or self-care (01) ==
LOC: EC 10:24
DX: R07.81 Pleurodynia (principal); Z88.8 Allergy status to other drugs, medicaments and biological substances; Z87.891 Personal history of nicotine dependence
CPT/HCPCS: 71046; 99285; 96374; 96375; 96376; J1885; J1171

== ENCOUNTER 2025-01-03 09:32 | Emergency (ER) | payer OTHER ==
[2025-01-03 09:42] VITALS: TEMP 98.2
--- NOTE | 2025-01-03 11:01 | XR ---
EXAMINATION TYPE: XR chest 2V DATE OF EXAM: 01/03/2025 10:28 AM COMPARISON: Chest radiographs from 01-25 CLINICAL INDICATION: Female, 49 years old with history of sob, pain; [facility] TECHNIQUE: XR chest 2V Frontal and lateral views of the chest. FINDINGS: Lungs/Pleura: There is no evidence of pleural effusion, focal consolidation, or pneumothorax. Pulmonary vascularity: Unremarkable. Heart/mediastinum: Cardiomediastinal silhouette is unremarkable. Left atrial appendage occlusion noah ce is present. Musculoskeletal: No acute osseous pathology. Midline sternotomy wires are noted. Other findings: Non Left thoracotomy tube without evidence for pneumothorax. IMPRESSION: 1. Left thoracotomy tube without evidence for pneumothorax. 2. Postprocedural changes of the heart. 3. No acute cardiopulmonary disease/process. [facility], , 01/03/2025 10:59 AM
--- NOTE | 2025-01-03 11:04 | ED ---
General Adult HPI - General Chief complaint: Recheck/Abnormal Lab/Rx Stated complaint: Recheck-Cath issue Time Seen by Provider: 01/03/25 09:47 Source: patient, RN notes reviewed Mode of arrival: ambulatory Limitations: no limitations - History of Present Illness Initial comments: 49-year-old female presents emergency department chief complaint of left-sided lung pain. Patient states that she has had pleural catheter in for the last few months states that she has been draining as directed but over the last couple days she has had increasing burning discomfort she was seen here yesterday for similar reasons. States pain is worse today. Patient did not contact her surgeon Dr. Ortiz. Patient denies of present chills no night sweats patient denies any increasing dyspnea, headache or dizziness. - Related Data Home Medications Medication Instructions Recorded Confirmed Atorvastatin Calcium [Lipitor] 40 mg PO DAILY 09/15/24 12/20/24 Gabapentin [Neurontin] 300 mg PO HS 09/23/24 12/20/24 Losartan [Cozaar] 12.5 mg PO DAILY 10/03/24 12/20/24 Metoprolol Tartrate [Lopressor] 25 mg PO BID 11/01/24 12/20/24 Omeprazole 20 mg PO DAILY 12/07/24 12/20/24 Benzonatate [Tessalon Perles] 100 mg PO TID PRN 12/15/24 12/20/24 Empagliflozin [Jardiance] 10 mg PO DAILY 12/15/24 12/20/24 Ferrous Sulfate [Iron (65 MG 325 mg PO DAILY 12/15/24 12/20/24 Elemental)] Midodrine HCl [ProAmantine] 2.5 mg PO AC-TID 12/15/24 12/20/24 Nitroglycerin Sl Tabs [Nitrostat] 0.4 mg SL Q5M PRN 12/15/24 12/20/24 Previous Rx's Medication Instructions Recorded Aspirin 81 mg PO DAILY tab 10/01/24 Ondansetron Odt [Zofran ODT] 4 mg PO Q8HR PRN #20 tab 10/14/24 Petrolat,White/Shlomo/8-Hydroxyqu 1 gm TOPICAL TID PRN gm 10/14/24 [Bag [place]] Nystatin 100,000 Unit/gm Powd 1 applic TOPICAL BID PRN 30 Days 11/16/24 [Mycostatin Powder] #10 each Acetaminophen Tab [Tylenol] 650 mg PO Q6HR PRN #90 tab 12/15/24 HYDROcodone/APAP 5-325MG [[place] 1 tab PO Q6HR PRN 3 Days #12 tab 12/25/24 5-325] Linezolid [Zyvox] 600 mg PO Q12H 10 Days #20 tab 12/25/24 Ketorolac [Toradol] 10 mg PO Q8HR #15 tab 01/02/25 Allergies Allergy/AdvReac Type Severity Reaction Status Date / Time capsaicin Allergy Rash/Hives/ Verified 01/03/25 09:42 Swelling Review of Systems ROS Statement: Those systems with pertinent positive or pertinent negative responses have been documented in the HPI. ROS Other: All systems not noted in ROS Statement are negative. Past Medical History Past Medical History: Atrial Fibrillation, Coronary Artery Disease (CAD), Heart Failure, Diabetes Mellitus, GERD/Reflux, Hyperlipidemia, Hypertension, Liver Disease, Pneumonia, Renal Disease, Syncope Additional Past Medical History / Comment(s): Hx pneumonia yrs ago. Hx kidney stones. Diet controlled diabetic. Seasonal allergies. Left internal carotid artery stenosis. Cirrhosis of liver. No menses in 4 1/2 yrs, states body does not make enough Estrogen. Recurrent pleural effusions. Pericardial effusion History of Any Multi-Drug Resistant Organisms: None Reported Past Surgical History: Appendectomy, Breast Surgery, Cholecystectomy, Coronary Bypass/CABG, Heart Catheterization With Stent, Orthopedic Surgery, Tubal Ligation Additional Past Surgical History / Comment(s): Right wrist carpal tunnel surgery, dental surgery- teeth removed, left breast abcess I&D X3, right breast abcess I&D X2, left ankle surgery, triple CABG 08/09/2024, multiple thoracentesis. Cardiac sents x2 and bilateral carotid stents. Left VATS with talc pleurodesis and placement of left-sided pleurx catheter 09/29/[address] Ortiz; subxiphoid pericardial window 10/04/2024 Past Anesthesia/Blood Transfusion Reactions: No Reported Reaction, Family History of Problems w/ Anesthesia Additional Past Anesthesia/Blood Transfusion Reaction / Comment(s): No blood transfusion to date. Mom stopped breathing during a surgery and was resuscitated. Date of Last Stent Placement:: 07/30/24 Past Psychological History: Anxiety, Bipolar, Depression Smoking Status: Former smoker Past Alcohol Use History: None Reported Past Drug Use History: None Reported - Past Family History Mother Family Medical History: Cancer Additional Family Medical History / Comment(s): schizoaffective disorder, unsure which type of cancer Father History Unknown: Yes Family Medical History: Unable to Obtain Additional Family Medical History / Comment(s): Patient did not know her father General Exam Limitations: no limitations General appearance: alert, in no apparent distress Head exam: Present: atraumatic, normocephalic, normal inspection Eye exam: Present: normal appearance, PERRL, EOMI. Absent: scleral icterus, conjunctival injection, periorbital swelling ENT exam: Present: normal exam, normal oropharynx, mucous membranes moist Neck exam: Present: normal inspection, full ROM. Absent: tenderness, meningismus, lymphadenopathy Respiratory exam: Present: normal lung sounds bilaterally. Absent: respiratory distress, wheezes, rales, rhonchi, stridor Cardiovascular Exam: Present: regular rate, normal rhythm, normal heart sounds. Absent: systolic murmur, diastolic murmur, rubs, gallop, clicks GI/Abdominal exam: Present: soft, normal bowel sounds. Absent: distended, tenderness, guarding, rebound, rigid Neurological exam: Present: alert Skin exam: Present: warm, dry, intact, normal color. Absent: rash Course Vital Signs 01/03/25 01/03/25 09:39 11:47 Temperature 98.2 F Pulse Rate 74 70 Respiratory 18 16 Rate Blood Pressure 128/83 137/87 O2 Sat by Pulse 100 99 Oximetry Medical Decision Making - Medical Decision Making Was pt. sent in by a medical professional or institution (, PA, LAND SURVEYING SURVEY WORKER, urgent care, hospital, or senior living...) When possible be specific @ -No Did you speak to anyone other than the patient for history (EMS, parent, family, police, friend...)? What history was obtained from this source @ -No Did you review nursing and triage notes (agree or disagree)? Why? @ -I reviewed and agree with nursing and triage notes Were old charts reviewed (outside hosp., previous admission, EMS record, old EKG, old radiological studies, urgent care reports/EKG's, senior living records)? Report findings @ -Reviewed chest x-ray from yesterday Differential Diagnosis (chest pain, altered mental status, abdominal pain women, abdominal pain men, vaginal bleeding, weakness, fever, dyspnea, syncope, headache, dizziness, GI bleed, back pain, seizure, CVA, palpatations, mental health, musculoskeletal)? @ -Differential Chest Pain: Stable Angina, Unstable Angina, STEMI, NSTEMI Aortic Dissection, Pneumothorax, Musculoskeletal, Esophageal Spasm GERD, Cholecystitis, Pancreatitis, Zoster, this is not meant to be an all-inclusive list. EKG interpreted by me (3pts min.). @ -None X-rays interpreted by me (1pt min.). @ -Chest x-ray shows no pleural effusion, stable catheter. CT interpreted by me (1pt min.). @ -None done U/S interpreted by me (1pt. min.). @ -None done What testing was considered but not performed or refused? (CT, X-rays, U/S, labs)? Why? @ -None What meds were considered but not given or refused? Why? @ -None Did you discuss the management of the patient with other professionals (professionals i.e. , PA, LAND SURVEYING SURVEY WORKER, lab, RT, psych nurse, manager social media, regulatory process manager, teacher, fisheries enforcement officer, welfare case worker)? Give summary @ -Dot-like on-call for cardiothoracic who came and evaluated the patient right patient was discharged, updated on results. Was smoking cessation discussed for >3mins.? @ -No Was critical care preformed (if so, how long)? @ -No Were there social determinants of health that impacted care today? How? (Homelessness, low income, unemployed, alcoholism, drug addiction, transportation, low edu. Level, literacy, decrease access to med. care, detention, rehab)? @ -No Was there de-escalation of care discussed even if they declined (Discuss DNR or withdrawal of care, Hospice)? DNR status @ -No What co-morbidities impacted this encounter? (DM, HTN, Smoking, COPD, CAD, Cancer, CVA, ARF, Chemo, Hep., AIDS, mental health diagnosis, sleep apnea, morbid obesity)? @ -None Was patient admitted / discharged? Hospital course, mention meds given and route, prescriptions, significant lab abnormalities, going to OR and other pertinent info. @ -Discharge patient has chest wall pain, pleural catheter pain this was evaluated by cardiothoracic and stable for discharge. Undiagnosed new problem with uncertain prognosis? @ -No Drug Therapy requiring intensive monitoring for toxicity (Heparin, Nitro, Insulin, Cardizem)? @ -No Were any procedures done? @ -No Diagnosis/symptom? @ -Chest wall pain Acute, or Chronic, or Acute on Chronic? @ -Acute Uncomplicated (without systemic symptoms) or Complicated (systemic symptoms)? @ -Uncomplicated Side effects of treatment? @ -No Exacerbation, Progression, or Severe Exacerbation? @ -No Poses a threat to life or bodily function? How? (Chest pain, [place], [place], pneumonia, PE, COPD, DKA, ARF, appy, cholecystitis, CVA, Diverticulitis, Homicidal, Suicidal, threat to staff... and all critical care pts) @ -No Disposition Clinical Impression: Chest wall pain Disposition: HOME SELF-CARE Condition: Stable Instructions (If sedation given, give patient instructions): Chest Pain (ED) Additional Instructions: Please return to the Emergency Department if symptoms worsen or any other concerns. Is patient prescribed a controlled substance at d/c from ED?: No Referrals: Sara Velarde MD [Primary Care Provider] - 1-2 days Time of Disposition: 11:39
[2025-01-03] MEDS: HYDROmorphone 1 MG/ML 1 ML SYRINGE IM STA (11:22)
[2025-01-03 11:48] VITALS: BP 137/87; PULSE 70; RESP 16
== END 2025-01-03 11:48 | disposition home or self-care (01) ==
LOC: EC 09:32
DX: R07.89 Other chest pain (principal); Z87.891 Personal history of nicotine dependence; Z88.8 Allergy status to other drugs, medicaments and biological substances
CPT/HCPCS: 71046; 99284; 96372; J1171

== ENCOUNTER 2025-01-25 14:33 | Emergency (ER) | payer OTHER ==
[2025-01-25 15:14] VITALS: RESP 18
--- NOTE | 2025-01-25 16:06 | ED ---
General Adult HPI - General Chief complaint: Skin/Abscess/Foreign Body Stated complaint: abcess opened on chest, Time Seen by Provider: 01/25/25 15:22 Source: patient, RN notes reviewed Mode of arrival: ambulatory Limitations: no limitations - History of Present Illness Initial comments: 49-year-old female presents to the emergency department for evaluation of right breast abscess. Patient states that this has been going on for 4 days. She states that she was seen here for this recently. She had an ultrasound of the breast and labs performed. She states that antibiotics were sent to her pharmacy but states that the pharmacy did not have the prescription. She states that her primary care provider sent the antibiotics in today but she has not been able to take them yet. She admits to chills. She called Dr. Familia Mendez's office today to try to get a earlier appointment and they told her to come to the emergency department. She did get an appointment made for Friday. - Related Data Home Medications Medication Instructions Recorded Confirmed Atorvastatin Calcium [Lipitor] 40 mg PO DAILY 09/15/24 12/20/24 Gabapentin [Neurontin] 300 mg PO HS 09/23/24 12/20/24 Losartan [Cozaar] 12.5 mg PO DAILY 10/03/24 12/20/24 Metoprolol Tartrate [Lopressor] 25 mg PO BID 11/01/24 12/20/24 Omeprazole 20 mg PO DAILY 12/07/24 12/20/24 Benzonatate [Tessalon Perles] 100 mg PO TID PRN 12/15/24 12/20/24 Empagliflozin [Jardiance] 10 mg PO DAILY 12/15/24 12/20/24 Ferrous Sulfate [Iron (65 MG 325 mg PO DAILY 12/15/24 12/20/24 Elemental)] Midodrine HCl [ProAmantine] 2.5 mg PO AC-TID 12/15/24 12/20/24 Nitroglycerin Sl Tabs [Nitrostat] 0.4 mg SL Q5M PRN 12/15/24 12/20/24 Previous Rx's Medication Instructions Recorded Aspirin 81 mg PO DAILY tab 10/01/24 Ondansetron Odt [Zofran ODT] 4 mg PO Q8HR PRN #20 tab 10/14/24 Petrolat,White/Shlomo/8-Hydroxyqu 1 gm TOPICAL TID PRN gm 10/14/24 [Bag [place]] Nystatin 100,000 Unit/gm Powd 1 applic TOPICAL BID PRN 30 Days 11/16/24 [Mycostatin Powder] #10 each Acetaminophen Tab [Tylenol] 650 mg PO Q6HR PRN #90 tab 12/15/24 HYDROcodone/APAP 5-325MG [[place] 1 tab PO Q6HR PRN 3 Days #12 tab 12/25/24 5-325] Linezolid [Zyvox] 600 mg PO Q12H 10 Days #20 tab 12/25/24 Ketorolac [Toradol] 10 mg PO Q8HR #15 tab 01/02/25 Cephalexin [Keflex] 500 mg PO Q6HR #40 cap 01/21/25 Sulfamethox-Tmp 800-160Mg [Bactrim 1 each PO Q12HR #20 tab 01/21/25 Ds] Allergies Allergy/AdvReac Type Severity Reaction Status Date / Time capsaicin Allergy Rash/Hives/ Verified 01/25/25 15:14 Swelling Review of Systems ROS Statement: Those systems with pertinent positive or pertinent negative responses have been documented in the HPI. ROS Other: All systems not noted in ROS Statement are negative. Past Medical History Past Medical History: Atrial Fibrillation, Coronary Artery Disease (CAD), Heart Failure, Diabetes Mellitus, GERD/Reflux, Hyperlipidemia, Hypertension, Liver Disease, Pneumonia, Renal Disease, Syncope Additional Past Medical History / Comment(s): Hx pneumonia yrs ago. Hx kidney stones. Diet controlled diabetic. Seasonal allergies. Left internal carotid artery stenosis. Cirrhosis of liver. No menses in 4 1/2 yrs, states body does not make enough Estrogen. Recurrent pleural effusions. Pericardial effusion History of Any Multi-Drug Resistant Organisms: None Reported Past Surgical History: Appendectomy, Breast Surgery, Cholecystectomy, Coronary Bypass/CABG, Heart Catheterization With Stent, Orthopedic Surgery, Tubal Ligation Additional Past Surgical History / Comment(s): Right wrist carpal tunnel surgery, dental surgery- teeth removed, left breast abcess I&D X3, right breast abcess I&D X2, left ankle surgery, triple CABG 08/09/2024, multiple thoracentesis. Cardiac sents x2 and bilateral carotid stents. Left VATS with talc pleurodesis and placement of left-sided pleurx catheter 09/29/[address] Ortiz; subxiphoid pericardial window 10/04/2024 Past Anesthesia/Blood Transfusion Reactions: No Reported Reaction, Family Hi story of Problems w/ Anesthesia Additional Past Anesthesia/Blood Transfusion Reaction / Comment(s): No blood transfusion to date. Mom stopped breathing during a surgery and was resuscitated. Date of Last Stent Placement:: 07/30/24 Past Psychological History: Anxiety, Bipolar, Depression Smoking Status: Former smoker Past Alcohol Use History: None Reported Past Drug Use History: None Reported - Past Family History Mother Family Medical History: Cancer Additional Family Medical History / Comment(s): schizoaffective disorder, unsure which type of cancer Father History Unknown: Yes Family Medical History: Unable to Obtain Additional Family Medical History / Comment(s): Patient did not know her father General Exam Limitations: no limitations General appearance: alert, in no apparent distress Head exam: Present: atraumatic, normocephalic, normal inspection Eye exam: Present: normal appearance, PERRL, EOMI. Absent: scleral icterus, conjunctival injection, periorbital swelling Respiratory exam: Present: normal lung sounds bilaterally. Absent: respiratory distress, wheezes, rales, rhonchi, stridor Cardiovascular Exam: Present: regular rate, normal rhythm, normal heart sounds. Absent: systolic murmur, diastolic murmur, rubs, gallop, clicks GI/Abdominal exam: Present: soft. Absent: distended, tenderness, guarding, rebound, rigid Neurological exam: Present: alert, oriented X3 Psychiatric exam: Present: normal affect, normal mood Skin exam: Present: warm, dry, erythema (Erythema medial to the right areola). Absent: intact Course Vital Signs 01/25/25 01/25/25 15:10 16:32 Temperature 98.5 F 98.3 F Pulse Rate 71 70 Respiratory 18 18 Rate Blood Pressure 136/81 130/79 O2 Sat by Pulse 98 98 Oximetry Medical Decision Making - Medical Decision Making Was pt. sent in by a medical professional or institution (, PA, LEAD PYTHON DEVELOPER, urgent care, hospital, or residential...) When possible be specific @ -No Did you speak to anyone other than the patient for history (EMS, parent, family, police, friend...)? What history was obtained from this source @ -No Did you review nursing and triage notes (agree or disagree)? Why? @ -I reviewed and agree with nursing and triage notes Were old charts reviewed (outside hosp., previous admission, EMS record, old EKG, old radiological studies, urgent care reports/EKG's, residential records)? Report findings @ -No old charts were reviewed Differential Diagnosis (chest pain, altered mental status, abdominal pain women, abdominal pain men, vaginal bleeding, weakness, fever, dyspnea, syncope, headache, dizziness, GI bleed, back pain, seizure, CVA, palpatations, mental health, musculoskeletal)? @ -Cellulitis, abscess, breast cancer, this list is not all inclusive EKG interpreted by me (3pts min.). @ -None X-rays interpreted by me (1pt min.). @ -None done CT interpreted by me (1pt min.). @ -None done U/S interpreted by me (1pt. min.). @ -None done What testing was considered but not performed or refused? (CT, X-rays, U/S, labs)? Why? @ -None What meds were considered but not given or refused? Why? @ -None Did you discuss the management of the patient with other professionals (professionals i.e. , PA, LEAD PYTHON DEVELOPER, lab, RT, psych nurse, licensed master social worker, unit tender, teacher, sheriffs officer, manager of case management)? Give summary @ -No Was smoking cessation discussed for >3mins.? @ -No Was critical care preformed (if so, how long)? @ -No Were there social determinants of health that impacted care today? How? (Homelessness, low income, unemployed, alcoholism, drug addiction, transportation, low edu. Level, literacy, decrease access to med. care, [facility], rehab)? @ -No Was there de-escalation of care discussed even if they declined (Discuss DNR or withdrawal of care, Hospice)? DNR status @ -No What co-morbidities impacted this encounter? (DM, HTN, Smoking, COPD, CAD, Cancer, CVA, ARF, Chemo, Hep., AIDS, mental health diagnosis, sleep apnea, morbid obesity)? @ -None Was patient admitted / discharged? Hospital course, mention meds given and route, prescriptions, significant lab abnormalities, going to OR and other pertinent info. @ -Discharge. Patient is emergency department for evaluation of redness and pain to the right breast. She reports recently having a breast abscess and was prescribed antibiotics but she has not started these yet. Patient's vital signs are stable. Patient will be provided a dose of her antibiotics. She states that she was able to get the prescription from her primary care provider but she has not yet taken a dose at home. She does have the medicine at home. She has an appointment on Friday with her breast surgeon. She will be discharged home. She is understanding agreeable with plan. Patient stable at time of discharge. Case discussed with Dr. Kunz. Undiagnosed new problem with uncertain prognosis? @ -No Drug Therapy requiring intensive monitoring for toxicity (Heparin, Nitro, Insulin, Cardizem)? @ -No Were any procedures done? @ -No Diagnosis/symptom? @ -Breast abscess Acute, or Chronic, or Acute on Chronic? @ -Acute Uncomplicated (without systemic symptoms) or Complicated (systemic symptoms)? @ -Uncomplicated Side effects of treatment? @ -No Exacerbation, Progression, or Severe Exacerbation? @ -No Poses a threat to life or bodily function? How? (Chest pain, [place], [place], pneumonia, PE, COPD, DKA, ARF, appy, cholecystitis, CVA, Diverticulitis, Homicidal, Suicidal, threat to staff... and all critical care pts) @ -No Disposition Clinical Impression: Cellulitis of breast, Breast abscess Disposition: HOME SELF-CARE Condition: Stable Instructions (If sedation given, give patient instructions): Abscess (ED) Additional Instructions: Please follow up with your breast surgeon as scheduled. Return to the emergency department for new or worsening symptoms. Is patient prescribed a controlled substance at d/c from ED?: No Referrals: Sara Velarde MD [Primary Care Provider] - 1-2 days
[2025-01-25] MEDS: SULFAMETHOX-TMP 800-160MG 1 EACH TAB PO STA (16:28)
[2025-01-25] MEDS: CEPHALEXIN 500 MG CAP PO STA (16:28)
[2025-01-25] MEDS: KETOROLAC 15 MG/ML 1 ML VIAL IM STA (16:29)
[2025-01-25 16:33] VITALS: BP 130/79; PULSE 70; TEMP 98.3
== END 2025-01-25 16:40 | disposition home or self-care (01) ==
LOC: EC 14:33
DX: N61.1 Abscess of the breast and nipple (principal); Z87.891 Personal history of nicotine dependence; Z88.8 Allergy status to other drugs, medicaments and biological substances
CPT/HCPCS: 99282; 96372; J1885

== ENCOUNTER 2025-01-27 16:49 | Emergency (ER) | payer OTHER ==
--- NOTE | 2025-01-27 17:22 | ED ---
Lower Extremity Injury HPI - General Source: patient <Samina Perry - Last Filed: 01/27/25 17:21> - General Source: patient, family, RN notes reviewed Mode of arrival: wheelchair Limitations: no limitations <Golden Batres - Last Filed: 01/27/25 18:35> - General Stated Complaint: fell R ankle injury Time Seen by Provider: 01/27/25 17:21 - History of Present Illness Initial Comments: Quick [id number] female presenting for right ankle injury prior to arrival. States she was getting out of the car when she slipped and injured her right ankle. Denies head injury or loss of consciousness. (Samina Perry) Patient is a 49-year-old female present to the emergency department with concerns with right ankle injury. Patient states she slipped and fell. Patient has discomfort right ankle, diffusely. Patient also has chest tube and wants to ensure that it has not moved. No dyspnea. Patient has not felt or moved. No head injury or loss of consciousness. No chest pain or dyspnea. No abdominal pain. (Golden Batres) - Related Data Home Medications Medication Instructions Recorded Confirmed Atorvastatin Calcium [Lipitor] 40 mg PO DAILY 09/15/24 12/20/24 Gabapentin [Neurontin] 300 mg PO HS 09/23/24 12/20/24 Losartan [Cozaar] 12.5 mg PO DAILY 10/03/24 12/20/24 Metoprolol Tartrate [Lopressor] 25 mg PO BID 11/01/24 12/20/24 Omeprazole 20 mg PO DAILY 12/07/24 12/20/24 Benzonatate [Tessalon Perles] 100 mg PO TID PRN 12/15/24 12/20/24 Empagliflozin [Jardiance] 10 mg PO DAILY 12/15/24 12/20/24 Ferrous Sulfate [Iron (65 MG 325 mg PO DAILY 12/15/24 12/20/24 Elemental)] Midodrine HCl [ProAmantine] 2.5 mg PO AC-TID 12/15/24 12/20/24 Nitroglycerin Sl Tabs [Nitrostat] 0.4 mg SL Q5M PRN 12/15/24 12/20/24 Previous Rx's Medication Instructions Recorded Aspirin 81 mg PO DAILY tab 10/01/24 Ondansetron Odt [Zofran ODT] 4 mg PO Q8HR PRN #20 tab 10/14/24 Petrolat,White/Shlomo/8-Hydroxyqu 1 gm TOPICAL TID PRN gm 10/14/24 [Bag [place]] Nystatin 100,000 Unit/gm Powd 1 applic TOPICAL BID PRN 30 Days 11/16/24 [Mycostatin Powder] #10 each Acetaminophen Tab [Tylenol] 650 mg PO Q6HR PRN #90 tab 12/15/24 HYDROcodone/APAP 5-325MG [[place] 1 tab PO Q6HR PRN 3 Days #12 tab 12/25/24 5-325] Linezolid [Zyvox] 600 mg PO Q12H 10 Days #20 tab 12/25/24 Ketorolac [Toradol] 10 mg PO Q8HR #15 tab 01/02/25 Cephalexin [Keflex] 500 mg PO Q6HR #40 cap 01/21/25 Sulfamethox-Tmp 800-160Mg [Bactrim 1 each PO Q12HR #20 tab 01/21/25 Ds] Allergies Allergy/AdvReac Type Severity Reaction Status Date / Time capsaicin Allergy Rash/Hives/ Verified 01/27/25 17:30 Swelling Review of Systems ROS Other: All systems not noted in ROS Statement are negative. <Samina Perry - Last Filed: 01/27/25 17:21> ROS Other: All systems not noted in ROS Statement are negative. Constitutional: Denies: fever Eyes: Denies: eye pain ENT: Denies: ear pain Respiratory: Denies: dyspnea Cardiovascular: Denies: chest pain Musculoskeletal: Reports: as per HPI <Golden Batres - Last Filed: 01/27/25 18:35> ROS Statement: Those systems with pertinent positive or pertinent negative responses have been documented in the HPI. Past Medical History Past Medical History: Atrial Fibrillation, Coronary Artery Disease (CAD), Heart Failure, Diabetes Mellitus, GERD/Reflux, Hyperlipidemia, Hypertension, Liver Disease, Pneumonia, Renal Disease, Syncope Additional Past Medical History / Comment(s): Hx pneumonia yrs ago. Hx kidney stones. Diet controlled diabetic. Seasonal allergies. Left internal carotid artery stenosis. Cirrhosis of liver. No menses in 4 1/2 yrs, states body does not make enough Estrogen. Recurrent pleural effusions. Pericardial effusion History of Any Multi-Drug Resistant Organisms: None Reported Past Surgical History: Appendectomy, Breast Surgery, Cholecystectomy, Coronary Bypass/CABG, Heart Catheterization With Stent, Orthopedic Surgery, Tubal Ligation Additional Past Surgical History / Comment(s): Right wrist carpal tunnel surgery, dental surgery- teeth removed, left breast abcess I&D X3, right breast abcess I&D X2, left ankle surgery, triple CABG 08/09/2024, multiple thoracentesis. Cardiac sents x2 and bilateral carotid stents. Left VATS with talc pleurodesis and placement of left-sided pleurx catheter 09/29/[address] Ortiz; subxiphoid pericardial window 10/04/2024 Past Anesthesia/Blood Transfusion Reactions: No Reported Reaction, Family History of Problems w/ Anesthesia Additional Past Anesthesia/Blood Transfusion Reaction / Comment(s): No blood transfusion to date. Mom stopped breathing during a surgery and was resuscitated. Date of Last Stent Placement:: 07/30/24 Past Psychological History: Anxiety, Bipolar, Depression Smoking Status: Former smoker Past Alcohol Use History: None Reported Past Drug Use History: None Reported - Past Family History Mother Family Medical History: Cancer Additional Family Medical History / Comment(s): schizoaffective disorder, unsure which type of cancer Father History Unknown: Yes Family Medical History: Unable to Obtain Additional Family Medical History / Comment(s): Patient did not know her father <Samina Perry - Last Filed: 01/27/25 17:21> General Exam <Samina Perry - Last Filed: 01/27/25 17:21> Limitations: no limitations General appearance: alert, in no apparent distress Head exam: Present: atraumatic Eye exam: Present: normal appearance ENT exam: Present: normal exam Neck exam: Present: normal inspection. Absent: tenderness Respiratory exam: Present: normal lung sounds bilaterally. Absent: respiratory distress, decreased breath sounds Cardiovascular Exam: Present: regular rate, normal rhythm Expanded Peripheral pulses: 2+: Posterior Tibialis (R), Dorsalis Pedis (R) GI/Abdominal exam: Present: soft. Absent: tenderness Extremities exam: Present: tenderness (Moderate tenderness and swelling diffuse right ankle. Distally the extremity is neurovascularly intact) Neurological exam: Present: alert. Absent: motor sensory deficit Psychiatric exam: Present: normal affect, normal mood Skin exam: Present: normal color <Goldne Batres - Last Filed: 01/27/25 18:35> - General Exam Comments Initial Comments: Visual Physical Exam General: Well-appearing, nontoxic, no acute distress. Head: Normocephalic, atraumatic Eyes: PERRLA, EOMI ENT: Airway patent Chest: Nonlabored breathing Skin: No visual rash, normal skin tone Neuro: Alert and oriented 3 Musculoskeletal: No gross abnormalities (Samina Perry) Course Vital Signs 01/27/25 17:26 Temperature 98.0 F Pulse Rate 66 Respiratory 18 Rate Blood Pressure 123/73 O2 Sat by Pulse 99 Oximetry Medical Decision Making <Samina Perry - Last Filed: 01/27/25 17:21> <Golden Batres - Last Filed: 01/27/25 18:35> - Medical Decision Making I completed the quick note portion of this chart signed Samina Perry PA-C (Samina Perry) Was pt. sent in by a medical professional or institution (ANDREW Christy, BALLING HEAD TENDER, urgent care, hospital, or [facility]...) When possible be specific @ -No Did you speak to anyone other than the patient for history (EMS, parent, family, police, friend...)? What history was obtained from this source @ -No Did you review nursing and triage notes (agree or disagree)? Why? @ -I reviewed and agree with nursing and triage notes Were old charts reviewed (outside hosp., previous admission, EMS record, old EKG, old radiological studies, urgent care reports/EKG's, [facility] records)? Report findings @ -No old charts were reviewed Differential Diagnosis (chest pain, altered mental status, abdominal pain women, abdominal pain men, vaginal bleeding, weakness, fever, dyspnea, syncope, headache, dizziness, GI bleed, back pain, seizure, CVA, palpatations, mental health, musculoskeletal)? @ -Differential Musculoskeletal Muscular strain, contusion, ligament sprain, fracture, arthritis, septic arthritis, bursitis, cellulitis, muscle spasm, nerve compression, DVT, arterial occlusion, herpes zoster, electrolyte abnormality, tumor.... This is not meant to be in all inclusive list EKG interpreted by me (3pts min.). @ -As above X-rays interpreted by me (1pt min.). @ -X-ray right ankle shows questionable lateral malleolus tiny avulsion. Chest x-ray shows chest tube in place on the left. No effusion. CT interpreted by me (1pt min.). @ -None done U/S interpreted by me (1pt. min.). @ -None done What testing was considered but not performed or refused? (CT, X-rays, U/S, labs)? Why? @ -None What meds were considered but not given or refused? Why? @ -None Did you discuss the management of the patient with other professionals (professionals i.e. DrVi, PA, BALLING HEAD TENDER, lab, RT, psych nurse, protective services social worker, partnership manager, teacher, gift officer, case making machine operator)? Give summary @ -No Was smoking cessation discussed for >3mins.? @ -No Was critical care preformed (if so, how long)? @ -No Were there social determinants of health that impacted care today? How? (Homelessness, low income, unemployed, alcoholism, drug addiction, transportation, low edu. Level, literacy, decrease access to med. care, [facility], rehab)? @ -No Was there de-escalation of care discussed even if they declined (Discuss DNR or withdrawal of care, Hospice)? DNR status @ -No What co-morbidities impacted this encounter? (DM, HTN, Smoking, COPD, CAD, Cancer, CVA, ARF, Chemo, Hep., AIDS, mental health diagnosis, sleep apnea, morbid obesity)? @ -History of chest tube from open heart surgery a few months ago Was patient admitted / discharged? Hospital course, mention meds given and route, prescriptions, significant lab abnormalities, going to OR and other pertinent info. @ -Patient presents with fall and ankle injury. X-ray questionable for tiny avulsion. Patient will have splint placed and recommended follow-up Ortho. Chest x-ray unremarkable. Patient updated. Undiagnosed new problem with uncertain prognosis? @ -No Drug Therapy requiring intensive monitoring for toxicity (Heparin, Nitro, Insulin, Cardizem)? @ -No Were any procedures done? @ -No Diagnosis/symptom? @ -Ankle injury Acute, or Chronic, or Acute on Chronic? @ -Acute Uncomplicated (without systemic symptoms) or Complicated (systemic symptoms)? @ -Default Side effects of treatment? @ -No Exacerbation, Progression, or Severe Exacerbation? @ -No Poses a threat to life or bodily function? How? (Chest pain, [place], [place], pneumonia, PE, COPD, DKA, ARF, appy, cholecystitis, CVA, Diverticulitis, Homicidal, Suicidal, threat to staff... and all critical care pts) @ -No (Golden Batres) Disposition <Samina Perry - Last Filed: 01/27/25 17:21> Is patient prescribed a controlled substance at d/c from ED?: No Time of Disposition: 18:34 <Golden Batres - Last Filed: 01/27/25 18:35> Clinical Impression: Ankle injury Disposition: HOME SELF-CARE Instructions (If sedation given, give patient instructions): Ankle Sprain (ED), Ankle Fracture (ED) Additional Instructions: Please follow-up with your primary care physician and orthopedics in the next couple of days for recheck. Please follow-up with your heart doctor as directed. Return for increased pain, swelling, worsening or changing symptoms or any other concerns. ICE to affected area. Use splint. Referrals: Sara Velarde MD [Primary Care Provider] - 1-2 days Jason Robertson MD [STAFF PHYSICIAN] - 1-2 days
--- NOTE | 2025-01-27 17:50 | XR ---
EXAMINATION TYPE: XR chest 2V DATE OF EXAM: 01/27/2025 5:44 PM COMPARISON: 01/03/2025 CLINICAL INDICATION: Female, 49 years old with history of Pleurex cather- fall, pneumothorax, pain TECHNIQUE: XR chest 2V view(s) obtained. FINDINGS: The heart size is normal. The pulmonary vasculature is normal. The lungs are clear. There is a left-sided chest tube. No pneumothorax. Sternotomy wires are present . IMPRESSION: 1. No acute pulmonary process. 2. No pneumothorax. 3. Stable appearance of left-sided chest tube [facility], , 01/27/2025 5:48 PM
--- NOTE | 2025-01-27 17:53 | XR ---
EXAMINATION TYPE: XR ankle complete RT DATE OF EXAM: 01/27/2025 5:44 PM COMPARISON: None. CLINICAL INDICATION: Female, 49 years old with history of right ankle injury, pain TECHNIQUE: 3 view(s) obtained. FINDINGS: There is mild soft tissue swelling over the lateral malleolus. No acute fractures or dislocations john dent. Ankle mortise is intact. Plantar and Achilles tendon calcaneal heel spurs are present. In the AP projection there is a linear calcification inferior lateral lateral malleolus. No donor sit e is identified. Subtle avulsion could be considered Follow up exams can be performed 7-10 days from acute trauma for continued pain. IMPRESSION: 1. Tiny linear density seen on image could be a very subtle avulsion. 2. No additional areas suspicious for acute fracture. 3. Soft tissue swelling right lateral malleolus [facility], , 01/27/2025 5:51 PM
[2025-01-27] MEDS: HYDROcodone/APAP 7.5-325MG 1 EACH TAB PO ONE (19:05)
[2025-01-27 19:42] VITALS: BP 126/78; PULSE 70; RESP 17; TEMP 98.1
== END 2025-01-27 19:42 | disposition home or self-care (01) ==
LOC: EC 16:49
DX: S99.911A Unspecified injury of right ankle, initial encounter (principal); Z98.890 Other specified postprocedural states; Z87.891 Personal history of nicotine dependence; Z91.018 Allergy to other foods; W01.0XXA Fall on same level from slipping, tripping and stumbling without subsequent striking against object, initial encounter
CPT/HCPCS: 73610; 71046; 99283; 29515; L4350

== ENCOUNTER → 2025-01-28 | Outpatient (CLI) | payer OTHER ==
[2025-01-28 10:00] VITALS: BP 109/69; PULSE 66; RESP 16; TEMP 97.9
--- NOTE | 2025-01-28 10:21 | P.PN ---
Subjective Progress Note Date: 01/28/25 01-28-25 Chief Complaint: Pain/swelling right breast Yovana is a 49 year old female seen in the ER on 05-05-24 with a complaint of a right breast abscess. She was seen here on 05-13-24. The area in the area in the breast spontaneously drained. She was given an antibiotic, Bactrim and Keflex this resulted in resulation of the lesion. The abscess recurred. Had multiple breast abscesses drained in the past. She has had 4 drainages on the right breast and 3 on the left. The left breast she was actually admitted to the hospital for IV antibiotic therapy in 2019. Most recent drainage of abscess 05-18-24. She had open heart surgery on August 09, she had two stints and then tripple bypass CABG. She also had two stints in her neck. She had a pleurodisces in August in the left chest. She has a cathater in her left chest for the fluid that accumulates, she drains it every week, varies from 50 to 250 cc. She had CPR November 01 She has had IV antibiotics in the hospital for her right breast in 2024. then 10 days of oral antibiotic therapy. ultrasound right breast 12-20-24, 1.5 x 1.7 cm heterogeneous area with peripheral vascularity findings most compatible with abscess She then underwent a ultrasound breast limited right on 01-21-2025 and this revealed a 1.8 x 1.2 x 0.9 cm versus 2.6 x 1.7 x 1 cm previously noted fluid collection probably benign and diagnostic breast ultrasound of the right in 2 months She has not had a mammogram for several years secondary to chronic abscesses. She continues to have drainage from both breast. The right from the periaeriolar area and the left from the nipple. She has followed with infectious disease. She is not having any fever or chills at this time. Is not on any antibiotics at the present time. Caffeine: 2 cup/day Nicotine: smoke 1 pack per day for 30 years stopped 2 years ago Marijuana 3 times a day Chocolate: daily BCP: used in the remote past 4 months FAMILY history: mother: cervical cancer maternal great aunt: breast cancers Hormonal history: Menarche:15 , breast fed:no, age at first : 26 last menstraul period 2019 Hormones: none Surgical History: 2 left breast abscesses drained; 3 right breast abscesses drained cervical conization Appendectomy Cholecystectomy Carpal tunnel right hand teeth removed Coronary artery bypass graft Carotid stents Medical history: HTN diabetes bipolar takes aspirin no plavix Social History: Nicotine: Stopped smoking 2 years ago Alcohol: Negative Drugs: Negative Marijuana 3 times a day in the past stopped this Review of Systems - Constitutional Reports as per HPI - EENT Eyes: denies blurred vision Ears: deny: decreased hearing, tinnitus Ears, nose, mouth and throat: Denies dysphagia - Breasts bilateral: as per HPI - Cardiovascular Denies chest pain, Denies shortness of breath - Respiratory Denies cough - Gastrointestinal Reports as per HPI - Genitourinary Genitourinary: Denies dysuria, Denies hematuria - Musculoskeletal Reports as per HPI - Integumentary Reports as per HPI - Neurological Denies headaches, Denies syncope - Psychiatric Reports anxiety, Reports depression - Endocrine Reports weight change - Hematologic/Lymphatic Denies easy bleeding, Denies easy bruising - Allergic/Immunologic Reports seasonal allergies Past Medical History Past Medical History: Diabetes Mellitus, Hypertension, Osteoarthritis (OA) Additional Past Medical History / Comment(s): KIDNEY STONES, History of Any Multi-Drug Resistant Organisms: None Reported Past Surgical History: Appendectomy, Breast Surgery, Cholecystectomy, Orthopedic Surgery, Tubal Ligation Additional Past Surgical History / Comment(s): carpal tunnel RIGHT WRIST, dental, abcess drainage left breast x2 (July 2016, March 2019, Aug 2019); RT breast I&D 05/22/21, 06/05/21; Left ankle surgery. Past Anesthesia/Blood Transfusion Reactions: No Reported Reaction Additional Past Anesthesia/Blood Transfusion Reaction / Comm: No blood transfusion to date Past Psychological History: Anxiety, Bipolar, Depression Additional Psychological History / Comment(s): Maintained with healthy coping mechanisms; diet and exericse (only suffers from depressive disorder, not the manic type) Smoking Status: Former smoker Past Alcohol Use History: None Reported Additional Past Alcohol Use History / Comment(s): STARTED SMOKING AT AGE 17 QUIT SMOKING March 16, 2021, SMOKED 1PPD Past Drug Use History: None Reported Additional Drug Use History / Comment(s): COCAINEAND MARIJUANA -"YEARS AGO " - Past Family History Mother Family Medical History: Cancer Additional Family Medical History / Comment(s): CERVICAL CANCER Medications and Allergies Home Medications Medication Instructions Recorded Confirmed Type amLODIPine [Norvasc] 10 mg PO DAILY 30 Days tab 07/04/21 05/13/24 Rx OXcarbazepine [Trileptal] 300 mg PO BID 08/14/21 05/13/24 History cloNIDine HCL 0.1 mg PO HS PRN 08/14/21 05/13/24 History hydrOXYzine pamoate [Vistaril] 25 mg PO TID PRN 08/14/21 05/13/24 History metFORMIN HCL [Glucophage] 500 mg PO AC-BID 08/14/21 05/13/24 History Acetaminophen Tab [Tylenol] 650 mg PO Q4H PRN 01/09/22 05/13/24 History QUEtiapine [SEROquel] 50 mg PO HS PRN 01/09/22 05/13/24 History HYDROcodone/APAP 5-325MG [[place] 1 tab PO Q4HR PRN #30 tab 01/11/22 05/13/24 Rx 5-325] Allergies Allergy/AdvReac Type Severity Reaction Status Date / Time capsaicin Allergy Rash/Hives/ Verified 05/13/24 10:20 Swelling Objective - Constitutional General appearance: Present: cooperative - EENT Eyes: Present: EOMI ENT: Present: hearing grossly normal - Neck Neck: Present: normal ROM - Respiratory Respiratory: bilateral: CTA - Cardiovascular Rhythm: regular Heart sounds: normal: S1, S2 - Musculoskeletal Musculoskeletal: Present: gait normal - Psychiatric Psychiatric: Present: A&O x's 3, appropriate affect, intact judgment & insight - Additional findings Additional findings: Breast Exam: BRA: 3XL inspection: Scabbing right breast periareolar region where chronic abscess has been, nipple discharge left breast white in nature with any pressure, well- healed scar sternum from coronary bypass graft, tube left chest for pleurodesis Palpation: Right breast: Multi positional exam nodular area of swelling in the medial periareolar region, no dominant masses or nodules of concern within the breast, fullness behind the nipple areolar complex, no other dominant masses or nodules of concern Right axilla: No adenopathy of concern Left breast: Multi positional exam no dominant masses or nodules of concern, in the periareolar region there is some thick sebum like drainage in the medial aspect from the nipple Left axilla: No adenopathy of concern Assessment and Plan Assessment: Impression: Chronic breast abscesses bilaterally Coronary artery bypass grafting lung fluid left breast Plan: Bilateral ultrasound of the breast Patient will not tolerate a mammogram at this time secondary to tenderness related to the infectious process in the right breast Bilateral resection of nipple areolar complexes were chronic abscesses are emanating from these to be done via bilateral central lumpectomies Cardiac clearance Clearance from primary care doctor Dr. Velarde [facility]/ DR. Dylan huddleston We have discussed the fact that she has got chronic bilateral periareolar/nipple abscesses. These have required surgical drainage on multiple occasions. At this time she would like to have the nipple areolar complexes resected. She understands that even though we resect the complexes she could still get abscesses in the residual breast tissue and if this were to happen she would like to have mastectomies done. She has had hospitalizations for the chronic abscesses and IV antibiotic therapy without resolution. Has increased risk factors for surgery secondary to her coronary artery bypass grafting as well as pleurodesis. These will be addressed by cardiology as well as her primary care doctor. She has an indwelling pleurodesis catheter at this time. She is at high risk secondary to the fact that she develops multiple abscesses and we do not want these to get infected. Additionally she has stents in her car rotted arteries as well as coronary arteries. Been seen by infectiou s disease and despite multiple courses of antibiotic therapy there has been inability to control the formation of these chronic abscesses.
== END ==
LOC: WWCWWP 08:53
PROVIDERS: ATTEND Surgery
DX: N61.1 Abscess of the breast and nipple (principal); I25.810 Atherosclerosis of coronary artery bypass graft(s) without angina pectoris; N64.89 Other specified disorders of breast; F17.210 Nicotine dependence, cigarettes, uncomplicated; Z88.6 Allergy status to analgesic agent

== ENCOUNTER 2025-02-02 16:00 | Observation (INO) | payer OTHER ==
--- NOTE | 2025-02-02 16:49 | ED ---
General Adult HPI - General Chief complaint: Chest Pain Stated complaint: Chest pains Time Seen by Provider: 02/02/25 16:29 Source: patient, RN notes reviewed, old records reviewed Mode of arrival: ambulatory - History of Present Illness Initial comments: Patient is a 49-year-old female presents with a headache complaining of chest pains. Started yesterday. Patient has a significant cardiac history including A-fib, CAD, CABG, pericardial effusion status post pericardial window, hypertension, hyperlipidemia. Patient also has a chronic indwelling left-sided pleural catheter for drainage of pleural effusions. States she is not on blood thinners. States she began having this pain yesterday. She has experienced this pain previously. States it is over the left side of her chest with radiation into her left armpit and somewhat towards her left shoulder and neck. Worse with certain positions such as laying down flat as well as lying on her right side. No known palliative factors. Has been attempting to take tramadol at home without much effect. Does have nitro at home but states that this does not help with the pain. Denies any significant shortness of breath. Denies any leg swelling. Denies any fevers, chills, cough. Denies any nausea vomiting or diarrhea. Presents for further evaluation at this time due to the left-sided chest pain. Patient also has chronic abscesses located in bilateral nipples. States she is due to have surgery on these next month. - Related Data Home Medications Medication Instructions Recorded Confirmed Atorvastatin Calcium [Lipitor] 40 mg PO DAILY 09/15/24 02/02/25 Gabapentin [Neurontin] 300 mg PO HS 09/23/24 02/02/25 Losartan [Cozaar] 12.5 mg PO DAILY 10/03/24 02/02/25 Metoprolol Tartrate [Lopressor] 25 mg PO BID 11/01/24 02/02/25 Omeprazole 20 mg PO DAILY 12/07/24 02/02/25 Benzonatate [Tessalon Perles] 100 mg PO TID PRN 12/15/24 02/02/25 Empagliflozin [Jardiance] 10 mg PO DAILY 12/15/24 02/02/25 Ferrous Sulfate [Iron (65 MG 325 mg PO DAILY 12/15/24 02/02/25 Elemental)] Midodrine HCl [ProAmantine] 2.5 mg PO AC-TID 12/15/24 02/02/25 Nitroglycerin Sl Tabs [Nitrostat] 0.4 mg SL Q5M PRN 12/15/24 02/02/25 traMADol HCL 50 mg PO Q4-6H PRN 02/02/25 02/02/25 Previous Rx's Medication Instructions Recorded Aspirin 81 mg PO DAILY tab 10/01/24 Ondansetron Odt [Zofran ODT] 4 mg PO Q8HR PRN #20 tab 10/14/24 Petrolat,White/Shlomo/8-Hydroxyqu 1 gm TOPICAL TID PRN gm 10/14/24 [Bag [place]] Nystatin 100,000 Unit/gm Powd 1 applic TOPICAL BID PRN 30 Days 11/16/24 [Mycostatin Powder] #10 each Acetaminophen Tab [Tylenol] 650 mg PO Q6HR PRN #90 tab 12/15/24 Allergies Allergy/AdvReac Type Severity Reaction Status Date / Time capsaicin Allergy Rash/Hives/ Verified 02/02/25 19:41 Swelling Review of Systems ROS Statement: Those systems with pertinent positive or pertinent negative responses have been documented in the HPI. Review of Systems: CONST: Denies fever EYES: Denies blurry vision ENT: Denies nasal congestion C/V: Endorses chest pain RESP: Denies shortness of breath GI: Denies abdominal pain : Denies dysuria SKIN: Denies rash. MSK: Denies joint pain. NEURO: Denies headache ROS Other: All systems not noted in ROS Statement are negative. Past Medical History Past Medical History: Atrial Fibrillation, Coronary Artery Disease (CAD), Heart Failure, Diabetes Mellitus, GERD/Reflux, Hyperlipidemia, Hypertension, Liver Disease, Pneumonia, Renal Disease, Syncope Additional Past Medical History / Comment(s): Hx pneumonia yrs ago. Hx kidney stones. Diet controlled diabetic. Seasonal allergies. Left internal carotid artery stenosis. Cirrhosis of liver. No menses in 4 1/2 yrs, states body does not make enough Estrogen. Recurrent pleural effusions. Pericardial effusion History of Any Multi-Drug Resistant Organisms: None Reported Past Surgical History: Appendectomy, Breast Surgery, Cholecystectomy, Coronary Bypass/CABG, Heart Catheterization With Stent, Orthopedic Surgery, Tubal Ligation Additional Past Surgical History / Comment(s): Right wrist carpal tunnel surgery, dental surgery- teeth removed, left breast abcess I&D X3, right breast abcess I&D X2, left ankle surgery, triple CABG 08/09/2024, multiple thoracentesis. Cardiac sents x2 and bilateral carotid stents. Left VATS with talc pleurodesis and placement of left-sided pleurx catheter 09/29/[address] Ortiz; subxiphoid pericardial window 10/04/2024 Past Anesthesia/Blood Transfusion Reactions: No Reported Reaction, Family History of Problems w/ Anesthesia Additional Past Anesthesia/Blood Transfusion Reaction / Comment(s): No blood transfusion to date. Mom stopped breathing during a surgery and was resuscitated. Date of Last Stent Placement:: 07/30/24 Past Psychological History: Anxiety, Bipolar, Depression Smoking Status: Former smoker Past Alcohol Use History: None Reported Past Drug Use History: None Reported - Past Family History Mother Family Medical History: Cancer Additional Family Medical History / Comment(s): schizoaffective disorder, unsure which type of cancer Father History Unknown: Yes Family Medical History: Unable to Obtain Additional Family Medical History / Comment(s): Patient did not know her father General Exam - General Exam Comments Initial Comments: General: Appears in no acute distress. HEAD: Normal with no signs of head trauma. EYES: PERRLA, EOMI, conjunctiva normal, no discharge. ENT: Hearing grossly intact, normal oropharynx. RESPIRATORY: Clear breath sounds bilaterally. No wheezes, rales, or rhonchi. C/V: Regular rate and rhythm. S1 and S2 auscultated, no edema, peripheral pulses 2+ and intact throughout. No significant reproducible chest pain on palpation. ABD: Abd is soft, nontender, nondistended EXT: Normal range of motion, no obvious deformity SKIN: No rashes or lesions observed on exposed skin. NEURO: Alert and oriented x 4. Course Vital Signs 02/02/25 02/02/25 02/02/25 16:11 17:04 19:08 Temperature 98.6 F 99.8 F H 99.8 F H Pulse Rate 67 64 64 Respiratory 18 20 19 Rate Blood Pressure 130/74 126/61 120/62 O2 Sat by Pulse 100 100 98 Oximetry Medical Decision Making - Medical Decision Making Was pt. sent in by a medical professional or institution (, PA, CARDIAC NURSE PRACTITIONER, urgent care, hospital, or residential...) When possible be specific @ -No Did you speak to anyone other than the patient for history (EMS, parent, family, police, friend...)? What history was obtained from this source @ -No Did you review nursing and triage notes (agree or disagree)? Why? @ -I reviewed and agree with nursing and triage notes Were old charts reviewed (outside hosp., previous admission, EMS record, old EKG, old radiological studies, urgent care reports/EKG's, residential records)? Report findings @ -Reviewed old chart from December 2024, including EKG and when compared with today's EKG, no acute dynamic change. Differential Diagnosis (chest pain, altered mental status, abdominal pain women, abdominal pain men, vaginal bleeding, weakness, fever, dyspnea, syncope, headache, dizziness, GI bleed, back pain, seizure, CVA, palpatations, mental health, musculoskeletal)? @ -Differential Chest Pain: Stable Angina, Unstable Angina, STEMI, NSTEMI Aortic Dissection, Pneumothorax, Musculoskeletal, Esophageal Spasm GERD, Cholecystitis, Pancreatitis, Zoster, this is not meant to be an all-inclusive list. EKG interpreted by me (3pts min.). @ -As above X-rays interpreted by me (1pt min.). @ -Chest x-ray reveals no obvious acute cardiopulmonary process. CT interpreted by me (1pt min.). @ -None done U/S interpreted by me (1pt. min.). @ -None done What testing was considered but not performed or refused? (CT, X-rays, U/S, labs)? Why? @ -None What meds were considered but not given or refused? Why? @ -None Did you discuss the management of the patient with other professionals (professionals i.e. , PA, CARDIAC NURSE PRACTITIONER, lab, RT, psych nurse, manager social media, tax lawyer, teacher, disability insurance hearing officer, case planner)? Give summary @ -I spoke with SERENA Bentley of [facility] who accepted the admission. Was smoking cessation discussed for >3mins.? @ -No Was critical care preformed (if so, how long)? @ -No Were there social determinants of health that impacted care today? How? (Homelessness, low income, unemployed, alcoholism, drug addiction, t ransportation, low edu. Level, literacy, decrease access to med. care, fdc, rehab)? @ -No Was there de-escalation of care discussed even if they declined (Discuss DNR or withdrawal of care, Hospice)? DNR status @ -No What co-morbidities impacted this encounter? (DM, HTN, Smoking, COPD, CAD, Cance r, CVA, ARF, Chemo, Hep., AIDS, mental health diagnosis, sleep apnea, morbid obesity)? @ -CAD, CABG, A-fib, pericardial effusion status post pericardial window, chronic pleural catheter. Was patient admitted / discharged? Hospital course, mention meds given and route, prescriptions, significant lab abnormalities, going to OR and other pertinent info. @ -Based on the patient's presentation and physical exam, presents emergency department complaining of acute on chronic chest pain. Seems somewhat positional. Has been present for 1 day. Started yesterday reportedly 4 PM. Presents for further evaluation at this time. Patient will be given nitro in addition IV fluids to start an aspirin. She was in agreement this plan. We will obtain cardiac workup. EKG shows no signs of acute ischemia.Chest x-ray unremarkable, no acute cardiopulmonary process. Laboratory studies are remarkable for undetectable troponin. Remainder the workup within acceptable limits. On reevaluation, nitroglycerin did nothing for the patient's chest pain. Therefore she was administered a dose of Dilaudid which did improve her pain. I discussed her workup. With her multiple risk factors as well as cardiac history, we will admit the patient to cardiac observation. Cardiology consulted. She was in agreement this plan. I spoke with SERENA Bentley of [facility] who accepted the admission. Undiagnosed new problem with uncertain prognosis? @ -No Drug Therapy requiring intensive monitoring for toxicity (Heparin, Nitro, Insulin, Cardizem)? @ -No Were any procedures done? @ -No Diagnosis/symptom? @ -Chest pain Acute, or Chronic, or Acute on Chronic? @ -Acute on chronic Uncomplicated (without systemic symptoms) or Complicated (systemic symptoms)? @ -Complicated Side effects of treatment? @ -None Exacerbation, Progression, or Severe Exacerbation] @ -No Poses a threat to life or bodily function? @ -Potentially, yes - Lab Data Result diagrams: 02/02/25 16:43 02/02/25 16:43 Lab Results 02/02/25 02/02/25 02/02/25 Range/Units 16:43 16:43 16:43 WBC 5.1 (3.8-10.6) k/uL RBC 4.42 (3.80-5.40) m/uL Hgb 11.4 (11.4-16.0) gm/dL Hct 38.5 (34.0-46.0) % MCV 87.1 (80.0-100.0) fL MCH 25.8 (25.0-35.0) pg MCHC 29.6 L (31.0-37.0) g/dL RDW 16.5 H (11.5-15.5) % Plt Count 119 L (150-450) k/uL MPV 9.9 Neutrophils % 65 % Lymphocytes % 22 % Monocytes % 8 % Eosinophils % 3 % Basophils % 0 % Neutrophils # 3.3 (1.3-7.7) k/uL Lymphocytes # 1.1 (1.0-4.8) k/uL Monocytes # 0.4 (0-1.0) k/uL Eosinophils # 0.2 (0-0.7) k/uL Basophils # 0.0 (0-0.2) k/uL Hypochromasia Marked Anisocytosis Slight PT 13.0 H (10.0-12.5) sec INR 1.2 H (<1.2) APTT 26.8 (22.0-30.0) sec Sodium 137 (137-145) mmol/L Potassium 4.2 (3.5-5.1) mmol/L Chloride 106 (98-107) mmol/L Carbon Dioxide 24 (22-30) mmol/L Anion Gap 7 mmol/L BUN 12 (7-17) mg/dL Creatinine 0.61 (0.52-1.04) mg/dL Est GFR (CKD-EPI)AfAm >90 (>60 ml/min/1.73 sqM) Est GFR (CKD-EPI)NonAf >90 (>60 ml/min/1.73 sqM) Glucose 128 H (74-99) mg/dL Calcium 8.5 (8.4-10.2) mg/dL Magnesium 1.8 (1.6-2.3) mg/dL Total Bilirubin 1.1 (0.2-1.3) mg/dL AST 58 H (14-36) U/L ALT 32 (4-34) U/L Alkaline Phosphatase 169 H (38-126) U/L Troponin I (0.000-0.034) ng/mL NT-Pro-B Natriuret Pep 434 pg/mL Total Protein 6.4 (6.3-8.2) g/dL Albumin 3.2 L (3.5-5.0) g/dL Influenza Type A (PCR) (Not Detectd) Influenza Type B (PCR) (Not Detectd) RSV (PCR) (Not Detectd) SARS-CoV-2 (PCR) (Not Detectd) 02/02/25 02/02/25 Range/Units 16:43 18:30 WBC (3.8-10.6) k/uL RBC (3.80-5.40) m/uL Hgb (11.4-16.0) gm/dL Hct (34.0-46.0) % MCV (80.0-100.0) fL MCH (25.0-35.0) pg MCHC (31.0-37.0) g/dL RDW (11.5-15.5) % Plt Count (150-450) k/uL MPV Neutrophils % % Lymphocytes % % Monocytes % % Eosinophils % % Basophils % % Neutrophils # (1.3-7.7) k/uL Lymphocytes # (1.0-4.8) k/uL Monocytes # (0-1.0) k/uL Eosinophils # (0-0.7) k/uL Basophils # (0-0.2) k/uL Hypochromasia Anisocytosis PT (10.0-12.5) sec INR (<1.2) APTT (22.0-30.0) sec Sodium (137-145) mmol/L Potassium (3.5-5.1) mmol/L Chloride (98-107) mmol/L Carbon Dioxide (22-30) mmol/L Anion Gap mmol/L BUN (7-17) mg/dL Creatinine (0.52-1.04) mg/dL Est GFR (CKD-EPI)AfAm (>60 ml/min/1.73 sqM) Est GFR (CKD-EPI)NonAf (>60 ml/min/1.73 sqM) Glucose (74-99) mg/dL Calcium (8.4-10.2) mg/dL Magnesium (1.6-2.3) mg/dL Total Bilirubin (0.2-1.3) mg/dL AST (14-36) U/L ALT (4-34) U/L Alkaline Phosphatase (38-126) U/L Troponin I <0.012 (0.000-0.034) ng/mL NT-Pro-B Natriuret Pep pg/mL Total Protein (6.3-8.2) g/dL Albumin (3.5-5.0) g/dL Influenza Type A (PCR) Not Detected (Not Detectd) Influenza Type B (PCR) Not Detected (Not Detectd) RSV (PCR) Not Detected (Not Detectd) SARS-CoV-2 (PCR) Not Detected (Not Detectd) - EKG Data -: EKG Interpreted by Me EKG Comments: 12-lead Electrocardiogram Interpretation Note EKG was reviewed and interpreted by myself. 12-lead ECG performed at 1623 is interpreted by me as revealing normal sinus rhythm at a rate of 64 beats per minute. Camargo is normal. SD interval is 151 ms, QRS duration is 85 ms, QTc is 426 ms.. There were no ST or T wave abnormalities to suggest myocardial ischemia or injury. R wave progression across the precordium was satisfactory. By my interpretation this EKG is non-diagnostic for acute ischemia. When compared with EKG from December 2024, no significant change. Disposition Clinical Impression: Chest pain Disposition: ADMITTED IP TO THIS HOSP Condition: Stable Time of Disposition: 18:30
[2025-02-02 16:53] LABS: Anisocytosis Slight; Basophils % (A) 0 %; Eosinophils # (A) 0.2 k/uL (0-0.7); Eosinophils % (A) 3 %; HCT 38.5 % (34.0-46.0); HGB 11.4 gm/dL (11.4-16.0); Hypochromasia Marked; Lymphocytes # (A) 1.1 k/uL (1.0-4.8); Lymphocytes % (A) 22 %; MCH 25.8 pg (25.0-35.0); MCHC 29.6 g/dL (31.0-37.0); MCV 87.1 fL (80.0-100.0); Mean Platelet Volume 9.9; Monocytes # (A) 0.4 k/uL (0-1.0); Monocytes % (A) 8 %; Neutrophils # (A) 3.3 k/uL (1.3-7.7); Neutrophils % (A) 65 %; Platelet Count 119 k/uL (150-450); RBC 4.42 m/uL (3.80-5.40); RDW 16.5 % (11.5-15.5); WBC 5.1 k/uL (3.8-10.6)
[2025-02-02] MEDS: ONDANSETRON 4 MG/2 ML VIAL IVP STA (17:00)
[2025-02-02 17:01] LABS: INR 1.2 (<1.2); Partial Thromboplastin Time 26.8 sec (22.0-30.0)
[2025-02-02] MEDS: SODIUM CHLORIDE 0.9% 1,000 ML IV STA (17:02)
[2025-02-02] MEDS: ASPIRIN 81 MG PO STA (17:02)
[2025-02-02 17:04] LABS: ALT 32 U/L (4-34); AST 58 U/L (14-36); African American GFR (CKD) >90 (>60 ml/min/1.73 sqM); Albumin 3.2 g/dL (3.5-5.0); Alkaline Phosphatase 169 U/L (38-126); Anion Gap 7 mmol/L; Blood Urea Nitrogen 12 mg/dL (7-17); Calcium 8.5 mg/dL (8.4-10.2); Carbon Dioxide 24 mmol/L (22-30); Chloride 106 mmol/L (98-107); Glucose 128 mg/dL (74-99); Magnesium 1.8 mg/dL (1.6-2.3); Non-African American GFR(CKD) >90 (>60 ml/min/1.73 sqM); Potassium 4.2 mmol/L (3.5-5.1); Sodium 137 mmol/L (137-145); Total Bilirubin 1.1 mg/dL (0.2-1.3); Total Protein 6.4 g/dL (6.3-8.2)
[2025-02-02] MEDS: NITROGLYCERIN SL TABS 0.4 MG TAB SUBLINGUAL STA (17:08)
[2025-02-02 17:13] LABS: NT-Pro-B-Type Natriuretic Pept 434 pg/mL
[2025-02-02] MEDS: HYDROmorphone 0.5 MG/0.5 ML SYRINGE IVP STA (18:11)
--- NOTE | 2025-02-02 18:30 | XR ---
EXAMINATION TYPE: XR chest 2V DATE OF EXAM: 02/02/2025 6:02 PM COMPARISON: Chest radiographs from 01/27/2025 CLINICAL INDICATION: Female, 49 years old with history of Chest Pain; [facility] TECHNIQUE: XR chest 2V Frontal and lateral views of the chest. FINDINGS: Lungs/Pleura: There is no evidence of pleural effusion, focal consolidation, or pneumothorax. Pulmonary vascularity: Unremarkable. Heart/mediastinum: Cardiomediastinal silhouette is prominent in size. Left atrial appendage occlusion device is present. Musculoskeletal: No acute osseous pathology. Midline sternotomy wires are noted. Other findings: None Lines/Tubes: Left thoracotomy tube is present without evidence of pneumothorax. IMPRESSION: Thoracotomy tube without evidence for pneumothorax. No evidence for acute postop process. [facility], , 02/02/2025 6:28 PM
[2025-02-02] MEDS ORDERED: ONDANSETRON 4 MG/2 ML VIAL IVP PRN (18:35)
[2025-02-02] MEDS ORDERED: NALOXONE 0.4 MG/ML 1 ML VIAL IV PRN (18:35)
[2025-02-02] MEDS: SODIUM CHLORIDE 0.9% 1,000 ML IV SCH (19:06)
[2025-02-02 19:13] LABS: Influenza A Not Detected (Not Detectd); Influenza B Not Detected (Not Detectd); RSV Not Detected (Not Detectd)
[2025-02-02] MEDS: HYDROmorphone 0.5 MG/0.5 ML SYRINGE IVP PRN (19:46)
[2025-02-02] MEDS ORDERED: ONDANSETRON ODT 4 MG TAB PO PRN (22:53)
[2025-02-02] MEDS ORDERED: ACETAMINOPHEN TAB 325 MG TAB PO PRN (22:53)
[2025-02-02] MEDS ORDERED: traMADol 50 MG TAB PO PRN (22:53)
[2025-02-02] MEDS: HEPARIN SODIUM,PORCINE 5,000 UNIT/ML 1 ML VIAL SQ SCH (22:54)
[2025-02-02] MEDS: METOPROLOL TARTRATE 25 MG TAB PO SCH (23:22)
[2025-02-02] MEDS: GABAPENTIN 300 MG CAP PO SCH (23:22)
[2025-02-03] MEDS: PANTOPRAZOLE 40 MG TABLET PO SCH (05:32)
[2025-02-03 06:20] LABS: Appearance,Urine Clear (Clear); Bilirubin,Urine Negative (Negative); Blood,Urine Negative (Negative); Color,Urine Light Yellow; Glucose,Urine (UA) 4+ (Negative); Ketones,Urine Negative (Negative); Leukocyte Esterase,Urine Negative (Negative); Nitrite,Urine Negative (Negative); PH, Urine 5.5 (5.0-8.0); Protein,Urine Negative (Negative); Specific Gravity,Urine 1.033 (1.001-1.035); Urobilinogen,Urine <2.0 mg/dL (<2.0)
[2025-02-03] MEDS ORDERED: MIDODRINE 5 MG TAB PO SCH (07:30)
[2025-02-03] MEDS: FERROUS SULFATE 325 MG TAB PO SCH (09:02)
[2025-02-03] MEDS: LOSARTAN 25 MG TAB PO SCH (09:02)
[2025-02-03] MEDS: ATORVASTATIN 40 MG TAB PO SCH (09:02)
[2025-02-03] MEDS: DAPAGLIFLOZIN PROPANEDIOL 5 MG TABLET PO SCH (09:02)
[2025-02-03] MEDS: ASPIRIN 81 MG PO SCH (09:03)
[2025-02-03 09:22] LABS: ALT 27 U/L (8-44); AST 38 U/L (13-35); Albumin 3.1 g/dL (3.8-4.9); Albumin/Globulin Ratio 1.19 Ratio (1.60-3.17); Alkaline Phosphatase 161 U/L (41-126); BUN/Creat Ratio 16.83 Ratio (12.00-20.00); Basophils # (A) 0.03 X 10*3/uL (0.00-0.10); Basophils % (A) 0.7 %; Blood Urea Nitrogen 10.1 mg/dL (9.0-27.0); Calcium 8.2 mg/dL (8.7-10.3); Carbon Dioxide 21.2 mmol/L (21.6-31.8); Chloride 108 mmol/L (96-109); Eosinophils # (A) 0.14 X 10*3/uL (0.04-0.35); Eosinophils % (A) 3.1 %; Globulin 2.6 g/dL (1.6-3.3); Glucose 130 mg/dL (70-110); HCT 36.5 % (37.2-46.3); HGB 10.9 g/dL (12.0-15.0); Lymphocytes # (A) 1.17 X 10*3/uL (0.90-5.00); Lymphocytes % (A) 26.1 %; MCH 26.4 pg (27.0-32.0); MCHC 29.9 g/dL (32.0-37.0); MCV 88.4 FL (80.0-97.0); Monocytes # (A) 0.65 X 10*3/uL (0.20-1.00); Monocytes % (A) 14.5 %; NRBC Per 100 WBC 0 X 10*3/uL (0.00-0.01); Neutrophils # (A) 2.48 X 10*3/uL (1.80-7.70); Neutrophils % (A) 55.4 %; Platelet Count 104 X 10*3/uL (140-440); RBC 4.13 X 10*6/uL (4.10-5.20); RDW 15.9 % (11.5-14.5); Sodium 138 mmol/L (135-145); Total Bilirubin 0.6 mg/dL (0.3-1.2); Total Protein 5.7 g/dL (6.2-8.2); WBC 4.48 X 10*3/uL (4.50-10.00)
--- NOTE | 2025-02-03 14:21 | P.CRDCN ---
History of Present Illness Consult date: 02/03/25 Consult reason: chest pain History of present illness: This is a 49-year-old female with history of hypertension, hyperlipidemia, coronary artery disease status post PCI and CABG in 08/2024, chronic diastolic heart failure, recurrent pleural effusion status post pleurX catheter, pericardial effusion, remote history of tobacco use and dependence. We have been asked to evaluate the patient for chest pain. Patient gives history that she started having chest pain on Friday while she was sitting in a chair. She states overall her breathing is better. She has been quite active. She states when she walks she does have some shortness of breath when she exerts herself. She states the chest pain was a heaviness and went to the her neck and the left shoulder. She states she has PND. Also has epigastric pain. Chest wall on the left side is tender to touch. Patient was recently hospitalized in December for chest pain and underwent Lexiscan Cardiolite stress test which was negative. Patient had subsequent follow-up with Dr. Ogden in the office with plan to continue cardiac rehab and follow-up in 6 to 8 weeks. Blood pressure 106/73, heart rate 69, pulse ox 97% on room air. Regarding Pleurx catheter, patient states that she is having about 300 mL/week of drainage. -EKG: Sinus rhythm with no acute ST changes. -Chest x-ray: Thoracotomy tube without evidence of pneumothorax. No acute process. -Laboratory studies: WBC 4.4, hemoglobin 10.9. D-dimer 0.82. Troponin negative x 3. Cepheid viral panel not detected. -Home cardiac medications: Aspirin 81 mg daily, atorvastatin 40 mg daily, Jardiance 10 mg daily, losartan 12.5 mg daily, Lopressor 25 mg twice daily, Nitrostat as needed. -CABG in 08/2024 with PERSAUD to LAD and diagonal and SVG to nondominant marginal branch. Circumflex was unable to be revascularized. -Limited echocardiogram performed on 11/02/2024 revealed EF of 55 to 60%, moderate pericardial effusion with fibrous strands. No cardiac tamponade physiology. Normal IVC dimensions with greater than 50% respiratory variation consistent with normal right atrial filling pressures. Review Of Systems: At the time of my exam: CONSTITUTIONAL: Denies fever or chills. HEENT: Denies blurred vision, vision changes, or eye pain. Denies hemoptysis CARDIOVASCULAR: Reports chest pain. Denies orthopnea. Denies PND. Denies palpitations RESPIRATORY: Denies shortness of breath. GASTROINTESTINAL: Denies abdominal pain. Denies nausea or vomiting. HEMATOLOGIC: Denies bleeding disorders. GENITOURINARY: Denies any blood in urine. SKIN: Denies puritis. Denies rash. Physical examination: Gen: This is a 49-year-old obese female in no acute distress.] VS: reviewed HEENT: Head is atraumatic, normocephalic. Pupils equal, round. Sclerae is anicteric. NECK: Supple. No JVD. LUNGS: Clear to auscultation. No wheezes or rhonchi. No intercostal retractions. HEART: Regular rate and rhythm. Systolic murmur. Tenderness chest wall left side. ABDOMEN: Soft epigastric tenderness. EXTREMITIES: No pedal edema. No calf tenderness. NEUROLOGICAL: Patient is awake, alert and oriented x3. Assessment: Atypical chest pain ruled out, acute coronary, acute coronary syndrome ruled out History of coronary artery disease status post PCI and CABG Chronic diastolic heart failure Hypertension Hyperlipidemia Recurrent pleural effusion status post Pleurx catheter Pericardial effusion Remote history of tobacco use and dependence. Plan: Resume patient's home cardiac medications Patient to ambulate and if doing well later this morning, patient is cleared for discharge from cardiology perspective and may follow-up with Dr. Ogden in the office in 1 to 2 weeks. Further recommendations to follow based upon clinical course Thank you kindly for this consultation. Nurse practitioner note has been reviewed, I agree with documented findings and plan of care. Patient was seen and examined. Past Medical History Past Medical History: Atrial Fibrillation, Coronary Artery Disease (CAD), Heart Failure, Diabetes Mellitus, GERD/Reflux, Hyperlipidemia, Hypertension, Liver Disease, Pneumonia, Syncope Additional Past Medical History / Comment(s): Hx pneumonia yrs ago. Hx kidney stones. Diet controlled diabetic (pt denies diabetes 02/02/25). Seasonal allergies. Left internal carotid artery stenosis. Cirrhosis of liver. No menses in 4 1/2 yrs, states body does not make enough Estrogen. Recurrent pleural effusions. Pericardial effusion, bilateral breast abscesses for the past 5 years History of Any Multi-Drug Resistant Organisms: None Reported Past Surgical History: Appendectomy, Breast Surgery, Cholecystectomy, Coronary Bypass/CABG, Heart Catheterization With Stent, Orthopedic Surgery, Tubal Ligation Additional Past Surgical History / Comment(s): Right wrist carpal tunnel surg karina, dental surgery- teeth removed, left breast abcess I&D X3, right breast abcess I&D X2, left ankle surgery, triple CABG 08/09/2024, multiple thoracentesis. Cardiac sents x2 and bilateral carotid stents 08/09/24. Left VATS with talc pleurodesis and placement of left-sided pleurx catheter 09/29/[address] Ortiz; subxiphoid pericardial window 10/04/2024 Past Anesthesia/Blood Transfusion Reactions: No Reported Reaction, Family History of Problems w/ Anesthesia Additional Past Anesthesia/Blood Transfusion Reaction / Comment(s): No blood transfusion to date. Mom stopped breathing during a surgery and was resuscitated. Date of Last Stent Placement:: 07/30/24 Past Psychological History: Anxiety, Bipolar, Depression Additional Psychological History / Comment(s): Maintained with healthy coping mechanisms; diet and exericse (only suffers from depressive disorder, not the manic type). Smoking Status: Former smoker Past Alcohol Use History: None Reported Additional Past Alcohol Use History / Comment(s): STARTED SMOKING AT AGE 17, QUIT MARCH 16, 2021, SMOKED 1PPD. quit vaping july 2024 Past Drug Use History: None Reported Additional Drug Use History / Comment(s): COCAINE USE "YEARS AGO ". "Smokes maybe 1 joint daily for pain & bipolar." - Past Family History Mother Family Medical History: Cancer Additional Family Medical History / Comment(s): schizoaffective disorder, unsure which type of cancer Father History Unknown: Yes Family Medical History: Unable to Obtain Additional Family Medical History / Comment(s): Patient did not know her father Medications and Allergies Home Medications Medication Instructions Recorded Confirmed Type Atorvastatin Calcium [Lipitor] 40 mg PO DAILY 09/15/24 02/02/25 History Gabapentin [Neurontin] 300 mg PO HS 09/23/24 02/02/25 History Aspirin 81 mg PO DAILY tab 10/01/24 02/02/25 Rx Losartan [Cozaar] 12.5 mg PO DAILY 10/03/24 02/02/25 History Ondansetron Odt [Zofran ODT] 4 mg PO Q8HR PRN #20 tab 10/14/24 02/02/25 Rx Petrolat,White/Shlomo/8-Hydroxyqu 1 gm TOPICAL TID PRN gm 10/14/24 02/02/25 Rx [Bag Mcdermott] Metoprolol Tartrate [Lopressor] 25 mg PO BID 11/01/24 02/02/25 History Nystatin 100,000 Unit/gm Powd 1 applic TOPICAL BID PRN 30 Days 11/16/24 02/02/25 Rx [Mycostatin Powder] #10 each Omeprazole 20 mg PO DAILY 12/07/24 02/02/25 History Acetaminophen Tab [Tylenol] 650 mg PO Q6HR PRN #90 tab 12/15/24 02/02/25 Rx Benzonatate [Tessalon Perles] 100 mg PO TID PRN 12/15/24 02/02/25 History Empagliflozin [Jardiance] 10 mg PO DAILY 12/15/24 02/02/25 History Ferrous Sulfate [Iron (65 MG 325 mg PO DAILY 12/15/24 02/02/25 History Elemental)] Midodrine HCl [ProAmantine] 2.5 mg PO AC-TID 12/15/24 02/02/25 History Nitroglycerin Sl Tabs [Nitrostat] 0.4 mg SL Q5M PRN 12/15/24 02/02/25 History traMADol HCL 50 mg PO Q4-6H PRN 02/02/25 02/02/25 History Allergies Allergy/AdvReac Type Severity Reaction Status Date / Time capsaicin Allergy Rash/Hives/ Verified 02/02/25 19:41 Swelling Physical Exam Vitals: Vital Signs Temp Pulse Pulse Resp BP BP BP 02/03/25 07:10 98.7 F 69 16 106/73 02/03/25 02:00 98.7 F 66 17 107/72 02/02/25 22:07 98.5 F 66 16 121/59 02/02/25 20:00 98.4 F 71 17 112/73 02/02/25 19:08 99.8 F H 64 19 120/62 02/02/25 17:04 99.8 F H 64 20 126/61 02/02/25 16:11 98.6 F 67 18 130/74 Pulse Ox 02/03/25 07:10 97 02/03/25 02:00 95 02/02/25 22:07 98 02/02/25 20:00 98 02/02/25 19:08 98 02/02/25 17:04 100 02/02/25 16:11 100 Intake and Output 02/02/25 02/03/25 02/03/25 22:59 06:59 14:59 Other: Voiding Method Toilet # Voids 1 2 Weight 94.347 kg Results 02/03/25 03:53 02/03/25 03:53 Cardiac Enzymes 02/02/25 02/02/25 02/02/25 Range/Units 16:43 16:43 19:29 AST 58 H (14-36) U/L Troponin I <0.012 <0.012 (0.000-0.034) ng/mL 02/02/25 Range/Units 23:51 AST (14-36) U/L Troponin I <0.012 (0.000-0.034) ng/mL Coagulation 02/02/25 Range/Units 16:43 PT 13.0 H (10.0-12.5) sec APTT 26.8 (22.0-30.0) sec CBC 02/02/25 Range/Units 16:43 WBC 5.1 (3.8-10.6) k/uL RBC 4.42 (3.80-5.40) m/uL Hgb 11.4 (11.4-16.0) gm/dL Hct 38.5 (34.0-46.0) % Plt Count 119 L (150-450) k/uL Comprehensive Metabolic Panel 02/02/25 Range/Units 16:43 Sodium 137 (137-145) mmol/L Potassium 4.2 (3.5-5.1) mmol/L Chloride 106 (98-107) mmol/L Carbon Dioxide 24 (22-30) mmol/L BUN 12 (7-17) mg/dL Creatinine 0.61 (0.52-1.04) mg/dL Glucose 128 H (74-99) mg/dL Calcium 8.5 (8.4-10.2) mg/dL AST 58 H (14-36) U/L ALT 32 (4-34) U/L Alkaline Phosphatase 169 H (38-126) U/L Total Protein 6.4 (6.3-8.2) g/dL Albumin 3.2 L (3.5-5.0) g/dL Current Medications Generic Name Dose Route Start Last Admin Trade Name Freq PRN Reason Stop Dose Admin Acetaminophen 650 mg 02/02/25 22:53 Acetaminophen Tab 325 Mg Tab PO Q6HR PRN Mild Pain or Fever > 100.5 Aspirin 81 mg 02/03/25 09:00 Aspirin 81 Mg PO DAILY [facility] Atorvastatin Calcium 40 mg 02/03/25 09:00 Atorvastatin 40 Mg Tab PO DAILY [facility] Dapagliflozin 5 mg 02/03/25 09:00 Dapagliflozin Propanediol 5 Mg Tablet PO DAILY [facility] Ferrous Sulfate 325 mg 02/03/25 09:00 Ferrous Sulfate 325 Mg Tab PO DAILY [facility] Gabapentin 300 mg 02/02/25 23:00 02/02/25 23:22 Gabapentin 300 Mg Cap PO 300 mg HS GABO Administration Heparin Sodium (Porcine) 5,000 unit 02/03/25 00:00 02/02/25 22:54 Heparin Sodium,Porcine 5,000 Unit/Ml 1 Ml Vial SQ 5,000 unit Q8HR GABO Administration Hydromorphone HCl 0.5 mg 02/02/25 18:35 02/03/25 05:32 Hydromorphone 0.5 Mg/0.5 Ml Syringe IVP 0.5 mg Q3HR PRN Administration Moderate Pain (Scale 4 to 6) Sodium Chloride 1,000 mls @ 75 mls/hr 02/02/25 18:45 02/02/25 19:06 Saline 0.9% IV 75 mls/hr .[id number] GABO Administration Losartan Potassium 12.5 mg 02/03/25 09:00 Losartan 25 Mg Tab PO DAILY [facility] Metoprolol Tartrate 25 mg 02/02/25 23:00 02/02/25 23:22 Metoprolol Tartrate 25 Mg Tab PO 25 mg BID GABO Administration Naloxone HCl 0.2 mg 02/02/25 18:35 Naloxone 0.4 Mg/Ml 1 Ml Vial IV Q2M PRN Opioid Reversal Ondansetron HCl 4 mg 02/02/25 18:35 Ondansetron 4 Mg/2 Ml Vial IVP Q8HR PRN Nausea And Vomiting Pantoprazole Sodium 40 mg 02/03/25 07:30 02/03/25 05:32 Pantoprazole 40 Mg Tablet PO 40 mg DAILY@0730 GABO Administration Tramadol HCl 50 mg 02/02/25 22:53 Tramadol 50 Mg Tab PO Q4H PRN Pain Intake and Output 02/02/25 02/03/25 02/03/25 22:59 06:59 14:59 Other: Voiding Method Toilet # Voids 1 2 Weight 94.347 kg 02/02/25 16:43 02/02/25 16:43
--- NOTE | 2025-02-03 14:37 | P.HPIM ---
History of Present Illness H&P Date: 02/03/25 Chief Complaint: Chest pain Patient is a 49 year old female with past medical history of atrial fibrillation, diabetes mellitus, GERD, hyperlipidemia, hypertension, CAD with C ABG 08/09/2024,bilateral carotid stents 08/09/2024, left VATS with talc pleurodesis and placement also left-sided Pleurx catheter 09/29/2024, subxiphoid pericardial window 10/04/24 presented to the ED with chest pain. Patient reports that her symptoms started 2 days ago. The pain started on the left side of her chest under her breast next to the Pleurx catheter and radiated to the left side of her neck along with left armpit and left shoulder. The pain was intermittent initially and it gradually became constant. She states that this pain is similar to the pain she had in October when she had pericardial effusion and she had to undergo subxiphoid pericardial window. The pain is worse with lying down flat and when she is lying on her right lateral side. Associated with that she also has shortness of breath. Additionally she reports having an indwelling left-sided Pleurx catheter that is drained every week as well as CABG and carotid stents placed on 08/09/24. 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 Denies fever, chills, cough, palpitations, abdominal pain, nausea, vomiting, hematuria, dysuria, hematochezia, melena, headache, slurred speech, numbness, tingling, dizziness, lightheadedness, blurred vision, double vision. ED documentation reviewed. In the ED patient was treated with [] Vitals on admission T 98.6 F, ME 67 bpm, RR 18, BP 130/74, oxygen saturation 100% on room air EKG independently interpreted as sinus rhythm, rate 64 bpm, QTc 426 ms Chest x-ray shows thoracotomy tube without evidence for pneumothorax, no evidence for acute postop process Labs on admission show WBC 5.1, hemoglobin 11.4, platelet count 219, INR 1.2, PT 13, sodium 137, potassium 4.2, creatinine 0.61, AST 58, ALP 169, troponin I <0.012 x 3, NT proBNP 434, procalcitonin 0.07 Respiratory panel is negative Review of systems: Pertinent positives and negatives as discussed in HPI, a complete review of systems was performed and all other systems are negative. Social history: Tobacco: Former smoker Alcohol: Former use Recreational drugs: Smokes 1 joint daily, Former cocaine use Travel: No recent travel history Sick contacts: None Physical examination: Vital signs reviewed General: nontoxic, no distress, appears at stated age Derm: warm, dry, intact Head: atraumatic, normocephalic, symmetric Eyes: EOMI, anicteric sclera Mouth: no lip lesion, mucus membranes moist Cardiovascular: S1 S2 reg, no murmur Lungs: left sided pleurx catheter, CTA bilateral, no rhonchi, no rales, no accessory muscle use Abdominal: soft, non-tender to palpation Extremities: No cyanosis, clubbing, or pedal edema. Neuro: Alert, Oriented, Gross neurological examination did not reveal any focal deficits. Psych: well appearing, appropriate affect Assessment/Plan: Patient is a 49 year old female with past medical history of atrial fib rillation, diabetes mellitus, GERD, hyperlipidemia, hypertension, CAD with CABG 08/09/2024,bilateral carotid stents 08/09/2024, left VATS with talc pleurodesis and placement also left-sided Pleurx catheter 09/29/2024, subxiphoid pericardial window 10/04/24 presented to the ED with chest pain. Active: #. Chest pain, ACS r/o #. History of CAD S/p PCI and CABG #. Elevated D-dimer D-dimer 0.82 Continue aspirin 81 mg p.o. daily, atorvastatin 40 mg p.o. daily, metoprolol 25 mg p.o. twice daily Obtain Chest CTA Continue telemetry monitoring Cardiology consulted, recommend outpatient follow up #. Nausea and vomiting Continue ondansetron 4 mg IVP every 8 hours as needed Chronic: #. Chronic diastolic heart failure #. Hypertension #. Hyperlipidemia #. Recurrent pleural effusion S/p indwelling Pleurx catheter #. Carotid artery stenosis S/p bilateral carotid artery stents #. Normocytic Anemia #. Neuropathy #. Chronically elevated transaminases #. Chronic Thrombocytopenia Continue dapagliflozin 5 mg p.o. daily, ferrous sulfate 325 mg p.o. daily, gabapentin 300 mg p.o. at bedtime, losartan 12.5 mg p.o. daily F: 0.9 normal saline at 75 ml/hr E: Replete as required N: Heart healthy diet DVT prophylaxis: Heparin 5000 units SQ Q8HR GI prophylaxis: Pantoprazole 40 mg PO daily The patient is admitted with an anticipated less than 2 midnight stay for evaluation of chest pain CODE STATUS: FULL CODE Discussed with: Patient Anticipated discharge place: Home Attestation: I have personally seen and examined the patient with Resident, reviewed the documentation and participated and agree with the assessment and plan as written. Med Jay MD Past Medical History Past Medical History: Atrial Fibrillation, Coronary Artery Disease (CAD), Heart Failure, Diabetes Mellitus, GERD/Reflux, Hyperlipidemia, Hypertension, Liver Disease, Pneumonia, Syncope Additional Past Medical History / Comment(s): Hx pneumonia yrs ago. Hx kidney stones. Diet controlled diabetic (pt denies diabetes 02/02/25). Seasonal allergies. Left internal carotid artery stenosis. Cirrhosis of liver. No menses in 4 1/2 yrs, states body does not make enough Estrogen. Recurrent pleural effusions. Pericardial effusion, bilateral breast abscesses for the pas t 5 years History of Any Multi-Drug Resistant Organisms: None Reported Past Surgical History: Appendectomy, Breast Surgery, Cholecystectomy, Coronary Bypass/CABG, Heart Catheterization With Stent, Orthopedic Surgery, Tubal Ligation Additional Past Surgical History / Comment(s): Right wrist carpal tunnel surgery, dental surgery- teeth removed, left breast abcess I&D X3, right breast abcess I&D X2, left ankle surgery, triple CABG 08/09/2024, multiple thoracentesis. Cardiac sents x2 and bilateral carotid stents 08/09/24. Left VATS with talc pleurodesis and placement of left-sided pleurx catheter 09/29/[address] Ortiz; subxiphoid pericardial window 10/04/2024 Past Anesthesia/Blood Transfusion Reactions: No Reported Reaction, Family History of Problems w/ Anesthesia Additional Past Anesthesia/Blood Transfusion Reaction / Comment(s): No blood transfusion to date. Mom stopped breathing during a surgery and was resuscitated. Date of Last Stent Placement:: 07/30/24 Past Psychological History: Anxiety, Bipolar, Depression Additional Psychological History / Comment(s): Maintained with healthy coping mechanisms; diet and exericse (only suffers from depressive disorder, not the manic type). Smoking Status: Former smoker Past Alcohol Use History: None Reported Additional Past Alcohol Use History / Comment(s): STARTED SMOKING AT AGE 17, QUIT MARCH 16, 2021, SMOKED 1PPD. quit vaping july 2024 Past Drug Use History: None Reported Additional Drug Use History / Comment(s): COCAINE USE "YEARS AGO ". "Smokes maybe 1 joint daily for pain & bipolar." - Past Family History Mother Family Medical History: Cancer Additional Family Medical History / Comment(s): schizoaffective disorder, unsure which type of cancer Father History Unknown: Yes Family Medical History: Unable to Obtain Additional Family Medical History / Comment(s): Patient did not know her father Medications and Allergies Home Medications Medication Instructions Recorded Confirmed Type Atorvastatin Calcium [Lipitor] 40 mg PO DAILY 09/15/24 02/02/25 History Gabapentin [Neurontin] 300 mg PO HS 09/23/24 02/02/25 History Aspirin 81 mg PO DAILY tab 10/01/24 02/02/25 Rx Losartan [Cozaar] 12.5 mg PO DAILY 10/03/24 02/02/25 History Ondansetron Odt [Zofran ODT] 4 mg PO Q8HR PRN #20 tab 10/14/24 02/02/25 Rx Petrolat,White/Shlomo/8-Hydroxyqu 1 gm TOPICAL TID PRN gm 10/14/24 02/02/25 Rx [Bag Menan] Metoprolol Tartrate [Lopressor] 25 mg PO BID 11/01/24 02/02/25 History Nystatin 100,000 Unit/gm Powd 1 applic TOPICAL BID PRN 30 Days 11/16/24 02/02/25 Rx [Mycostatin Powder] #10 each Omeprazole 20 mg PO DAILY 12/07/24 02/02/25 History Acetaminophen Tab [Tylenol] 650 mg PO Q6HR PRN #90 tab 12/15/24 02/02/25 Rx Benzonatate [Tessalon Perles] 100 mg PO TID PRN 12/15/24 02/02/25 History Empagliflozin [Jardiance] 10 mg PO DAILY 12/15/24 02/02/25 History Ferrous Sulfate [Iron (65 MG 325 mg PO DAILY 12/15/24 02/02/25 History Elemental)] Midodrine HCl [ProAmantine] 2.5 mg PO AC-TID 12/15/24 02/02/25 History Nitroglycerin Sl Tabs [Nitrostat] 0.4 mg SL Q5M PRN 12/15/24 02/02/25 History traMADol HCL 50 mg PO Q4-6H PRN 02/02/25 02/02/25 History Allergies Allergy/AdvReac Type Severity Reaction Status Date / Time capsaicin Allergy Rash/Hives/ Verified 02/02/25 19:41 Swelling Physical Exam Vitals: Vital Signs Temp Pulse Pulse Resp BP BP BP 02/03/25 09:02 16 02/03/25 07:10 98.7 F 69 16 106/73 02/03/25 02:00 98.7 F 66 17 107/72 02/02/25 22:07 98.5 F 66 16 121/59 02/02/25 20:00 98.4 F 71 17 112/73 02/02/25 19:08 99.8 F H 64 19 120/62 02/02/25 17:04 99.8 F H 64 20 126/61 02/02/25 16:11 98.6 F 67 18 130/74 Pulse Ox 02/03/25 09:02 02/03/25 07:10 97 02/03/25 02:00 95 02/02/25 22:07 98 02/02/25 20:00 98 02/02/25 19:08 98 02/02/25 17:04 100 02/02/25 16:11 100 Intake and Output 02/02/25 02/03/25 02/03/25 22:59 06:59 14:59 Intake Total 240 Balance 240 Intake: Oral 240 Other: Voiding Method Toilet Toilet # Voids 1 2 Weight 94.347 kg Results CBC & Chem 7: 02/03/25 03:53 02/03/25 03:53 Labs: Abnormal Lab Results - Last 24 Hours (Table) 02/02/25 02/02/25 02/02/25 Range/Units 16:43 16:43 16:43 WBC (4.50-10.00) X 10*3/uL Hgb (12.0-15.0) g/dL Hct (37.2-46.3) % MCH (27.0-32.0) pg MCHC 29.6 L (31.0-37.0) g/dL RDW 16.5 H (11.5-15.5) % Plt Count 119 L (150-450) k/uL PT 13.0 H (10.0-12.5) sec INR 1.2 H (<1.2) D-Dimer (<0.60) mg/L FEU Carbon Dioxide (21.6-31.8) mmol/L Glucose 128 H (74-99) mg/dL Calcium (8.7-10.3) mg/dL AST 58 H (14-36) U/L Alkaline Phosphatase 169 H (38-126) U/L Total Protein (6.2-8.2) g/dL Albumin 3.2 L (3.5-5.0) g/dL Albumin/Globulin Ratio (1.60-3.17) Ratio Urine Glucose (UA) (Negative) 02/03/25 02/03/25 02/03/25 Range/Units 03:53 03:53 05:00 WBC 4.48 L (4.50-10.00) X 10*3/uL Hgb 10.9 L (12.0-15.0) g/dL Hct 36.5 L (37.2-46.3) % MCH 26.4 L (27.0-32.0) pg MCHC 29.9 L (31.0-37.0) g/dL RDW 15.9 H (11.5-15.5) % Plt Count 104 L (150-450) k/uL PT (10.0-12.5) sec INR (<1.2) D-Dimer (<0.60) mg/L FEU Carbon Dioxide 21.2 L (21.6-31.8) mmol/L Glucose 130 H (74-99) mg/dL Calcium 8.2 L (8.7-10.3) mg/dL AST 38 H (14-36) U/L Alkaline Phosphatase 161 H (38-126) U/L Total Protein 5.7 L (6.2-8.2) g/dL Albumin 3.1 L (3.5-5.0) g/dL Albumin/Globulin Ratio 1.19 L (1.60-3.17) Ratio Urine Glucose (UA) 4+ H (Negative) 02/03/25 Range/Units 10:53 WBC (4.50-10.00) X 10*3/uL Hgb (12.0-15.0) g/dL Hct (37.2-46.3) % MCH (27.0-32.0) pg MCHC (31.0-37.0) g/dL RDW (11.5-15.5) % Plt Count (150-450) k/uL PT (10.0-12.5) sec INR (<1.2) D-Dimer 0.82 H (<0.60) mg/L FEU Carbon Dioxide (21.6-31.8) mmol/L Glucose (74-99) mg/dL Calcium (8.7-10.3) mg/dL AST (14-36) U/L Alkaline Phosphatase (38-126) U/L Total Protein (6.2-8.2) g/dL Albumin (3.5-5.0) g/dL Albumin/Globulin Ratio (1.60-3.17) Ratio Urine Glucose (UA) (Negative) Thrombosis Risk Factor Assmnt - Choose All That Apply Any of the Below Risk Factors Present?: Yes Each Factor Represents 1 point: Age 41-60 years, Obesity (BMI >25) Thrombosis Risk Factor Assessment Total Risk Factor Score: 2 Thrombosis Risk Factor Assessment Level: Low Risk
--- NOTE | 2025-02-03 14:43 | CT ---
EXAMINATION TYPE: CT chest angio for PE DATE OF EXAM: 02/03/2025 COMPARISON: 12/07/2024 CLINICAL INDICATION: Female, 49 years old with history of Dyspnea; PHH, dyspnea, SOB or PAIN TECHNIQUE: Ct angiogram of the chest performed with with IV Contrast, patient injected with 55ml mL of Isovue 37 0. MIP images are created and reviewed. 3-D post processing was performed. CT DLP: 484.[address] CTDI: mGy Automated exposure control for dose reduction was used. FINDINGS: There is a small left effusion and left lower lobe moderate infiltrate or compressive atelectasis. Th ere is no suspicious lung mass or nodule. There is no filling defect within the pulmonary arterial circulation to suggest pulmonary embolus. There is no lung consolidation. There is no mediastinal, hilar or axillary adenopathy. Limited scanning through the upper abdomen reveals multiple nonobstructing left renal calcifications and mild splenomegaly. No focal osseous lesions are seen. IMPRESSION: 1. No pulmonary embolism. 2. Small left pleural effusion and left lower lobe infiltrate/compressive atelectasis. 3. Multiple nonobstructing left renal calcification. 4. Mild splenomegaly. [facility], , 02/03/2025 2:40 PM
[2025-02-03 14:52] VITALS: BP 103/69; PULSE 65; RESP 17; TEMP 98.5
--- NOTE | 2025-02-03 17:35 | P.DS ---
Providers Date of admission: 02/02/25 18:35 Expected date of discharge: 02/03/25 Attending physician: Carlos Cuellar Consults: 02/02/25 18:35 Consult Physician Routine Consulting Provider: [facility] Consult Reason/Comments: chest pain Do you want consulting provider notified?: Yes Primary care physician: Sara Velarde MD Hospital Course: Discharge diagnosis: Chest pain, ACS r/o History of CAD S/p PCI and CABG Elevated D-dimer Nausea and vomiting Chronic diastolic heart failure Hypertension Hyperlipidemia Recurrent pleural effusion S/p indwelling Pleurx catheter Carotid artery stenosis S/p bilateral carotid artery stents Normocytic Anemia Neuropathy Chronically elevated transaminases Chronic Thrombocytopenia Hospital Course: Patient is a 49 year old female with past medical history of atrial fibrillation, diabetes mellitus, GERD, hyperlipidemia, hypertension, CAD with CABG 08/09/2024,bilateral carotid stents 08/09/2024, left VATS with talc pleurodesis and placement also left-sided Pleurx catheter 09/29/2024, subxiphoid pericardial window 10/04/24 presented to the ED with chest pain. Patient reports that her symptoms started 2 days ago. The pain started on the left side of her chest under her breast next to the Pleurx catheter and radiated to the left side of her neck along with left armpit and left shoulder. The pain was intermittent initially and it gradually became constant. She states that this pain is similar to the pain she had in October when she had pericardial effusion and she had to undergo subxiphoid pericardial window. The pain is worse with lying down flat and when she is lying on her right lateral side. Associated with that she also has shortness of breath. Additionally she reports having an indwelling left-sided Pleurx catheter that is drained every week as well as CABG and carotid stents placed on 08/09/24. 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 Denies fever, chills, cough, palpitations, abdominal pain, nausea, vomiting, hematuria, dysuria, hematochezia, melena, headache, slurred speech, numbness, tingling, dizziness, lightheadedness, blurred vision, double vision. ED documentation reviewed. Vitals on admission T 98.6 F, [place] 67 bpm, RR 18, BP 130/74, oxygen saturation 100% on room air. EKG independently interpreted as sinus rhythm, rate 64 bpm, QTc 426 ms. Chest x-ray shows thoracotomy tube without evidence for pneumothorax, no evidence for acute postop process. Labs on admission show WBC 5.1, hemoglobin 11.4, platelet count 219, INR 1.2, PT 13, sodium 137, potassium 4.2, creatinine 0.61, AST 58, ALP 169, troponin I <0.012 x 3, NT proBNP 434, procalcitonin 0.07. Respiratory panel is negative. Patient seen at bedside today and is feeling good and excited about discharge. Patient will be discharged today. Patient is advised to be compliant with medications. Patient is advised to follow-up with PCP in 1-2 days and benefits consultant in 1 week. Vital signs are reviewed and stable General: nontoxic, no distress, appears at stated age Derm: warm, dry, intact Head: atraumatic, normocephalic, symmetric Eyes: EOMI, anicteric sclera Mouth: no lip lesion, mucus membranes moist Cardiovascular: S1 S2 reg, no murmur Lungs: left sided pleurx catheter, CTA bilateral, no rhonchi, no rales, no accessory muscle use Abdominal: soft, non-tender to palpation Extremities: No cyanosis, clubbing, or pedal edema. Neuro: Alert, Oriented, Gross neurological examination did not reveal any focal deficits. Psych: well appearing, appropriate affect A total of 30 minutes of time were spent preparing this complex discharge summary. Patient was discharged on 02/03/25 at 1745. Attestation: I have personally seen and examined the patient with Resident, reviewed the documentation and participated and agree with the assessment and plan as written. Med Jay MD Patient Condition at Discharge: Stable Plan - Discharge Summary Discharge Rx Participant: No New Discharge Prescriptions: Continue Gabapentin [Neurontin] 300 mg PO HS Aspirin 81 mg PO DAILY tab Losartan [Cozaar] 12.5 mg PO DAILY Petrolat,White/Shlomo/8-Hydroxyqu [Bag [place]] 1 gm TOPICAL TID PRN gm PRN Reason: Dry Skin Metoprolol Tartrate [Lopressor] 25 mg PO BID Nystatin 100,000 Unit/gm Powd [Mycostatin Powder] 1 applic TOPICAL BID PRN 30 Days #10 each PRN Reason: Skin Irritation Nitroglycerin Sl Tabs [Nitrostat] 0.4 mg SL Q5M PRN PRN Reason: Chest Pain Ferrous Sulfate [Iron (65 MG Elemental)] 325 mg PO DAILY Empagliflozin [Jardiance] 10 mg PO DAILY Acetaminophen Tab [Tylenol] 650 mg PO Q6HR PRN #90 tab PRN Reason: Mild Pain Or Fever > 100.5 traMADol HCL 50 mg PO Q4-6H PRN PRN Reason: Pain Atorvastatin Calcium [Lipitor] 40 mg PO DAILY Ondansetron Odt [Zofran ODT] 4 mg PO Q8HR PRN #20 tab PRN Reason: Nausea Omeprazole 20 mg PO DAILY Benzonatate [Tessalon Perles] 100 mg PO TID PRN PRN Reason: Cough Midodrine HCl [ProAmantine] 2.5 mg PO AC-TID Discharge Medication List Atorvastatin Calcium [Lipitor] 40 mg PO DAILY 09/15/24 [History] Gabapentin [Neurontin] 300 mg PO HS 09/23/24 [History] Aspirin 81 mg PO DAILY tab 10/01/24 [Rx] Losartan [Cozaar] 12.5 mg PO DAILY 10/03/24 [History] Ondansetron Odt [Zofran ODT] 4 mg PO Q8HR PRN #20 tab 10/14/24 [Rx] Petrolat,White/Shlomo/8-Hydroxyqu [Bag [place]] 1 gm TOPICAL TID PRN gm 10/14/24 [Rx] Metoprolol Tartrate [Lopressor] 25 mg PO BID 11/01/24 [History] Nystatin 100,000 Unit/gm Powd [Mycostatin Powder] 1 applic TOPICAL BID PRN 30 Days #10 each 11/16/24 [Rx] Omeprazole 20 mg PO DAILY 12/07/24 [History] Acetaminophen Tab [Tylenol] 650 mg PO Q6HR PRN #90 tab 12/15/24 [Rx] Benzonatate [Tessalon Perles] 100 mg PO TID PRN 12/15/24 [History] Empagliflozin [Jardiance] 10 mg PO DAILY 12/15/24 [History] Ferrous Sulfate [Iron (65 MG Elemental)] 325 mg PO DAILY 12/15/24 [History] Midodrine HCl [ProAmantine] 2.5 mg PO AC-TID 12/15/24 [History] Nitroglycerin Sl Tabs [Nitrostat] 0.4 mg SL Q5M PRN 12/15/24 [History] traMADol HCL 50 mg PO Q4-6H PRN 02/02/25 [History] Follow up Appointment(s)/Referral(s): Jared Ogden DO [STAFF PHYSICIAN] - 2 Weeks Sara Velarde MD [Primary Care Provider] - 1-2 days Discharge Disposition: HOME SELF-CARE
== END 2025-02-03 18:21 | disposition home or self-care (01) ==
LOC: EC 16:00 → 6NMEDSUR 18:35
PROVIDERS: ADMIT Hospitalist; ATTEND Hospitalist
DX: R07.89 Other chest pain (principal); I11.0 Hypertensive heart disease with heart failure; I50.32 Chronic diastolic (congestive) heart failure; I48.91 Unspecified atrial fibrillation; I25.10 Atherosclerotic heart disease of native coronary artery without angina pectoris; E78.5 Hyperlipidemia, unspecified; N61.1 Abscess of the breast and nipple; D64.9 Anemia, unspecified; E11.40 Type 2 diabetes mellitus with diabetic neuropathy, unspecified; R79.89 Other specified abnormal findings of blood chemistry; R74.01 Elevation of levels of liver transaminase levels; D69.6 Thrombocytopenia, unspecified; M54.2 Cervicalgia; M79.622 Pain in left upper arm; M25.512 Pain in left shoulder; R51.9 Headache, unspecified; R10.13 Epigastric pain; E66.9 Obesity, unspecified; Z68.36 Body mass index [BMI] 36.0-36.9, adult; Z79.82 Long term (current) use of aspirin; Z79.84 Long term (current) use of oral hypoglycemic drugs; Z79.899 Other long term (current) drug therapy; Z88.8 Allergy status to other drugs, medicaments and biological substances; Z11.52 Encounter for screening for COVID-19; Z11.59 Encounter for screening for other viral diseases; Z95.5 Presence of coronary angioplasty implant and graft; Z95.1 Presence of aortocoronary bypass graft; Z86.79 Personal history of other diseases of the circulatory system; Z97.8 Presence of other specified devices; Z87.891 Personal history of nicotine dependence; Z87.898 Personal history of other specified conditions
CPT/HCPCS: 96376 ×3; 96372 ×2; 96374; 96375; 99285; 36415; 93005 ×2; 85379; 83880; 80053 ×2; 83735; 84484; 85025 ×2; 85610; 85730; 81003; 84145; 87636; 71046; 71275; G0378 ×2; J1644 ×2; J2405; J1171 ×2; Q9967

== ENCOUNTER 2025-02-14 15:04 | Emergency (ER) | payer OTHER ==
--- NOTE | 2025-02-14 15:40 | ED ---
Skin/Abscess/FB HPI - General Source: patient, RN notes reviewed Mode of arrival: ambulatory Limitations: no limitations <Jn Lemon - Last Filed: 02/14/25 15:39> - General Source: patient, RN notes reviewed, old records reviewed Mode of arrival: ambulatory Limitations: no limitations - History of Present Illness MD complaint: abscess/boil (Left chest catheter) -: month(s) Location: chest Severity: mild Severity scale (1-10): 3 Quality: aching Consistency: constant Improves with: none Worsens with: none Context: other (Recent surgery) Associated symptoms: denies other symptoms Treatments Prior to Arrival: none <Gera Duran - Last Filed: 02/14/25 18:35> - General Stated complaint: L side abd sore Time Seen by Provider: 02/14/25 15:21 - History of Present Illness Initial comments: This is a 49-year-old female with history of CAD, heart failure, DM presenting with inflamed skin tag with associated pain. Patient states skin tag is been chronic but has recently become inflamed, enlarged and painful (06/09) x 1.5 months. Endorses associated bruising around left chest. Patient endorses chest catheterization [address] Ortiz and is continuing to have fluid drained from catheter once weekly. Endorses some concern that catheter may have become dislodged. (Jn Lemon) This is a 49-year-old female to the ER for evaluation today. Patient coming in with left-sided chest pain chest wall pain with skin tag inflammation and likely surrounding cellulitis. Patient does have left-sided chest wall Pleurx catheter after coronary artery bypass surgery. Patient has persistent draining from Pleurx catheter so she cannot currently have it removed. Patient is without fever chest pain around the site and around the catheter (Gera Duran) - Related Data Home Medications Medication Instructions Recorded Confirmed Atorvastatin Calcium [Lipitor] 40 mg PO DAILY 09/15/24 02/02/25 Gabapentin [Neurontin] 300 mg PO HS 09/23/24 02/02/25 Losartan [Cozaar] 12.5 mg PO DAILY 10/03/24 02/02/25 Metoprolol Tartrate [Lopressor] 25 mg PO BID 11/01/24 02/02/25 Omeprazole 20 mg PO DAILY 12/07/24 02/02/25 Benzonatate [Tessalon Perles] 100 mg PO TID PRN 12/15/24 02/02/25 Empagliflozin [Jardiance] 10 mg PO DAILY 12/15/24 02/02/25 Ferrous Sulfate [Iron (65 MG 325 mg PO DAILY 12/15/24 02/02/25 Elemental)] Midodrine HCl [ProAmantine] 2.5 mg PO AC-TID 12/15/24 02/02/25 Nitroglycerin Sl Tabs [Nitrostat] 0.4 mg SL Q5M PRN 12/15/24 02/02/25 traMADol HCL 50 mg PO Q4-6H PRN 02/02/25 02/02/25 Previous Rx's Medication Instructions Recorded Aspirin 81 mg PO DAILY tab 10/01/24 Ondansetron Odt [Zofran ODT] 4 mg PO Q8HR PRN #20 tab 10/14/24 Petrolat,White/Shlomo/8-Hydroxyqu 1 gm TOPICAL TID PRN gm 10/14/24 [Bag [place]] Nystatin 100,000 Unit/gm Powd 1 applic TOPICAL BID PRN 30 Days 11/16/24 [Mycostatin Powder] #10 each Acetaminophen Tab [Tylenol] 650 mg PO Q6HR PRN #90 tab 12/15/24 Cephalexin [Keflex] 500 mg PO Q6HR #28 cap 02/14/25 Allergies Allergy/AdvReac Type Severity Reaction Status Date / Time capsaicin Allergy Rash/Hives/ Verified 02/14/25 15:44 Swelling Review of Systems ROS Other: All systems not noted in ROS Statement are negative. <Jn Lemon - Last Filed: 02/14/25 15:39> ROS Other: All systems not noted in ROS Statement are negative. <Gera Duran - Last Filed: 02/14/25 18:35> ROS Statement: Those systems with pertinent positive or pertinent negative responses have been documented in the HPI. Past Medical History Past Medical History: Atrial Fibrillation, Coronary Artery Disease (CAD), Heart Failure, Diabetes Mellitus, GERD/Reflux, Hyperlipidemia, Hypertension, Liver Disease, Pneumonia, Syncope Additional Past Medical History / Comment(s): Hx pneumonia yrs ago. Hx kidney stones. Diet controlled diabetic (pt denies diabetes 02/02/25). Seasonal allergies. Left internal carotid artery stenosis. Cirrhosis of liver. No menses in 4 1/2 yrs, states body does not make enough Estrogen. Recurrent pleural effusions. Pericardial effusion, bilateral breast abscesses for the past 5 years History of Any Multi-Drug Resistant Organisms: None Reported Past Surgical History: Appendectomy, Breast Surgery, Cholecystectomy, Coronary Bypass/CABG, Heart Catheterization With Stent, Orthopedic Surgery, Tubal Ligation Additional Past Surgical History / Comment(s): Right wrist carpal tunnel surgery, dental surgery- teeth removed, left breast abcess I&D X3, right breast abcess I&D X2, left ankle surgery, triple CABG 08/09/2024, multiple thoracentesis. Cardiac sents x2 and bilateral carotid stents 08/09/24. Left VATS with talc pleurodesis and placement of left-sided pleurx catheter 09/29/[address] Ortiz; subxiphoid pericardial window 10/04/2024 Past Anesthesia/Blood Transfusion Reactions: No Reported Reaction, Family History of Problems w/ Anesthesia Additional Past Anesthesia/Blood Transfusion Reaction / Comment(s): No blood transfusion to date. Mom stopped breathing during a surgery and was resuscitated. Date of Last Stent Placement:: 07/30/24 Past Psychological History: Anxiety, Bipolar, Depression Additional Psychological History / Comment(s): Maintained with healthy coping mechanisms; diet and exericse (only suffers from depressive disorder, not the manic type). Smoking Status: Former smoker Past Alcohol Use History: None Reported Additional Past Alcohol Use History / Comment(s): STARTED SMOKING AT AGE 17, QUIT MARCH 16, 2021, SMOKED 1PPD. quit vaping july 2024 Past Drug Use History: None Reported Additional Drug Use History / Comment(s): COCAINE USE "YEARS AGO ". "Smokes maybe 1 joint daily for pain & bipolar." - Past Family History Mother Family Medical History: Cancer Additional Family Medical History / Comment(s): schizoaffective disorder, unsure which type of cancer Father History Unknown: Yes Family Medical History: Unable to Obtain Additional Family Medical History / Comment(s): Patient did not know her father <Jn Lemon - Last Filed: 02/14/25 15:39> General Exam <Jn Lemon - Last Filed: 02/14/25 15:39> General appearance: alert, in no apparent distress Head exam: Present: atraumatic, normocephalic, normal inspection Eye exam: Present: normal appearance, PERRL, EOMI. Absent: scleral icterus, conjunctival injection, periorbital swelling ENT exam: Present: normal exam, mucous membranes moist Neck exam: Present: normal inspection. Absent: tenderness, meningismus, lymphadenopathy Respiratory exam: Present: normal lung sounds bilaterally. Absent: respiratory distress, wheezes, rales, rhonchi, stridor Cardiovascular Exam: Present: regular rate, normal rhythm, normal heart sounds. Absent: systolic murmur, diastolic murmur, rubs, gallop, clicks GI/Abdominal exam: Present: soft, normal bowel sounds. Absent: distended, tenderness, guarding, rebound, rigid Extremities exam: Present: normal inspection, full ROM, normal capillary refill. Absent: tenderness, pedal edema, joint swelling, calf tenderness Back exam: Present: normal inspection Neurological exam: Present: alert, oriented X3, CN II-XII intact Psychiatric exam: Present: normal affect, normal mood Skin exam: Present: warm, dry, intact, normal color. Absent: rash <Gera Duran - Last Filed: 02/14/25 18:35> - General Exam Comments Initial Comments: Visual Physical Exam Vital signs reviewed General: Well-appearing, nontoxic, no acute distress. Head: Normocephalic, atraumatic Eyes: PERRLA, EOMI ENT: Airway patent Chest: Nonlabored breathing Skin: Large erythematous papule/skin tag noted along left anterior axillary region. Normal skin tone Neuro: Alert and oriented 3 Musculoskeletal: No gross abnormalities (Jn Lemon) Course <Gera Duran - Last Filed: 02/14/25 18:35> Vital Signs 02/14/25 15:41 Temperature 98.7 F Pulse Rate 71 Respiratory 16 Rate Blood Pressure 126/76 O2 Sat by Pulse 98 Oximetry - Reevaluation(s) Reevaluation #1: 02/14/25 18:28 Medical records reviewed (Gera Duran) Reevaluation #2: 02/14/25 18:28 Patient symptoms improved here in the ER (Gera Duran) Reevaluation #3: 02/14/25 18:28 Patient informed of results questions answered (Gera Duran) Reevaluation #4: Was pt. sent in by a medical professional or institution (, ANDREW, ESTHETICIAN MAKEUP ARTIST, urgent c are, hospital, or [place] health care facility...) When possible be specific @ -no Did you speak to anyone other than the patient for history (EMS, parent, family, police, friend...)? What history was obtained from this source @ -no Did you review nursing and triage notes (agree or disagree)? Why? @ -agree Are old charts reviewed (outside hosp., previous admission, EMS record, old EKG, old radiological studies, urgent care reports/EKG's, [place] health care facility records)? Report findings @ -yes Differential Diagnosis (chest pain, altered mental status, abdominal pain women, abdominal pain men, vaginal bleeding, weakness, fever, dyspnea, syncope, headache, dizziness, GI bleed, back pain, seizure, CVA, palpatations, mental health, musculoskeletal)? @ -prior EKG interpreted by me (3pts min.). @ -yes X-rays interpreted by me (1pt min.). @ -yes negative for acute disease CT interpreted by me (1pt min.). @ -no U/S interpreted by me (1pt. min.). @ -no What testing was considered but not performed or refused? (CT, X-rays, U/S, labs)? Why? @ -none What meds were considered but not given or refused? Why? @ -none Did you discuss the management of the patient with other professionals (professionals i.e. ANDREW Christy, ESTHETICIAN MAKEUP ARTIST, lab, RT, psych nurse, hospital social worker, electronics supervisor, teacher, credit or loans officer, shoe caser)? Give summary @ -no Was smoking cessation discussed for >3mins.? @ -no Was critical care preformed (if so, how long)? @ -no Were there social determinants of health that impacted care today? How? (Home lessness, low income, unemployed, alcoholism, drug addiction, transportation, low edu. Level, literacy, decrease access to med. care, fdc, rehab)? @ -none Was there de-escalation of care discussed even if they declined (Discuss DNR or withdrawal of care, Hospice)? DNR status @ -no What co-morbidities impacted this encounter? (DM, HTN, Smoking, COPD, CAD, Cancer, CVA, ARF, Chemo, Hep., AIDS, mental health diagnosis, sleep apnea, morbid obesity)? @ -none Was patient admitted / discharged? Hospital course, mention meds given and route, prescriptions, significant lab abnormalities, going to OR and other pertinent info. @ - Undiagnosed new problem with uncertain prognosis? @ -no Drug Therapy requiring intensive monitoring for toxicity (Heparin, Nitro, Insulin, Cardizem)? @ -no Were any procedures done? @ -no Diagnosis/symptom? @ - Acute, or Chronic, or Acute on Chronic? @ -Acute Uncomplicated (without systemic symptoms) or Complicated (systemic symptoms)? @ -Complicated Side effects of treatment? @ -no Exacerbation, Progression, or Severe Exacerbation? @ -exacerbation Poses a threat to life or bodily function? How? (Chest pain, USA, VT, pneumonia, PE, COPD, DKA, ARF, appy, cholecystitis, CVA, Diverticulitis, Homicidal, Suicidal, threat to staff... and all critical care pts) @ -yes (Gera Duran) Reevaluation #5: Differential Chest Pain: Stable Angina, Unstable Angina, STEMI, NSTEMI Aortic Dissection, Pneumothorax, Musculoskeletal, Esophageal Spasm GERD, Cholecystitis, Pancreatitis, Zoster, this is not meant to be an all-inclusive list. (Gera Duran) Medical Decision Making <Jn Lemon - Last Filed: 02/14/25 15:39> - Lab Data Result diagrams: 02/14/25 16:58 02/14/25 16:58 - Radiology Data Radiology results: report reviewed (Chest x-ray is negative for acute disease), image reviewed <Gera Duran - Last Filed: 02/14/25 18:35> - Medical Decision Making I completed the quick note portion of this chart signed TAB Angela (Jn Lemon) 49 female to ER for evaluation of left Pleurx catheter. Catheter cannot be removed at this time secondary to still draining, chest x-ray is normal lab testing normal patient placed on antibiotics for abdominal wall cellulitis and patient can be discharged home (Gera Duran) - Lab Data Lab Results 02/14/25 02/14/25 Range/Units 16:58 16:58 WBC 4.3 (3.8-10.6) k/uL RBC 4.29 (3.80-5.40) m/uL Hgb 10.9 L (11.4-16.0) gm/dL Hct 37.5 (34.0-46.0) % MCV 87.6 (80.0-100.0) fL MCH 25.5 (25.0-35.0) pg MCHC 29.2 L (31.0-37.0) g/dL RDW 15.7 H (11.5-15.5) % Plt Count 124 L (150-450) k/uL MPV 10.8 Neutrophils % 61 % Lymphocytes % 23 % Monocytes % 9 % Eosinophils % 6 % Basophils % 0 % Neutrophils # 2.6 (1.3-7.7) k/uL Lymphocytes # 1.0 (1.0-4.8) k/uL Monocytes # 0.4 (0-1.0) k/uL Eosinophils # 0.2 (0-0.7) k/uL Basophils # 0.0 (0-0.2) k/uL Hypochromasia Marked Sodium 138 (137-145) mmol/L Potassium 4.2 (3.5-5.1) mmol/L Chloride 107 (98-107) mmol/L Carbon Dioxide 25 (22-30) mmol/L Anion Gap 6 mmol/L BUN 11 (7-17) mg/dL Creatinine 0.72 (0.52-1.04) mg/dL Est GFR (CKD-EPI)AfAm >90 (>60 ml/min/1.73 sqM) Est GFR (CKD-EPI)NonAf >90 (>60 ml/min/1.73 sqM) Glucose 117 H (74-99) mg/dL Calcium 8.7 (8.4-10.2) mg/dL Total Bilirubin 0.8 (0.2-1.3) mg/dL AST 59 H (14-36) U/L ALT 40 H (4-34) U/L Alkaline Phosphatase 187 H (38-126) U/L Total Protein 6.5 (6.3-8.2) g/dL Albumin 3.3 L (3.5-5.0) g/dL Disposition <Jn Lemon - Last Filed: 02/14/25 15:39> Is patient prescribed a controlled substance at d/c from ED?: No Time of Disposition: 18:30 <Gera Duran - Last Filed: 02/14/25 18:35> Clinical Impression: Abdominal wall cellulitis, Chest pain Disposition: HOME SELF-CARE Condition: Good Instructions (If sedation given, give patient instructions): Chest Pain (ED), Cellulitis (ED) Prescriptions: Cephalexin [Keflex] 500 mg PO Q6HR #28 cap Referrals: Sara Velarde MD [Primary Care Provider] - 1-2 days
--- NOTE | 2025-02-14 16:34 | XR ---
EXAMINATION TYPE: XR chest 2V DATE OF EXAM: 02/14/2025 4:24 PM COMPARISON: 02/02/2025 CLINICAL INDICATION: Female, 49 years old with history of Chest catheter placement, TECHNIQUE: Frontal and lateral views of the chest are obtained. FINDINGS: Left-sided thoracotomy tube without evidence for pneumothorax. There is no focal air space opacity, pleural effusion, or pneumothorax seen. The cardiac silhouette size is within normal limit s. The osseous structures are intact. IMPRESSION: No acute cardiopulmonary process. [facility], , 02/14/2025 4:32 PM
[2025-02-14 17:21] LABS: Basophils % (A) 0 %; Eosinophils # (A) 0.2 k/uL (0-0.7); Eosinophils % (A) 6 %; HCT 37.5 % (34.0-46.0); HGB 10.9 gm/dL (11.4-16.0); Hypochromasia Marked; Lymphocytes % (A) 23 %; MCH 25.5 pg (25.0-35.0); MCHC 29.2 g/dL (31.0-37.0); MCV 87.6 fL (80.0-100.0); Mean Platelet Volume 10.8; Monocytes # (A) 0.4 k/uL (0-1.0); Monocytes % (A) 9 %; Neutrophils # (A) 2.6 k/uL (1.3-7.7); Neutrophils % (A) 61 %; Platelet Count 124 k/uL (150-450); RBC 4.29 m/uL (3.80-5.40); RDW 15.7 % (11.5-15.5); WBC 4.3 k/uL (3.8-10.6)
[2025-02-14 17:22] LABS: ALT 40 U/L (4-34); AST 59 U/L (14-36); African American GFR (CKD) >90 (>60 ml/min/1.73 sqM); Albumin 3.3 g/dL (3.5-5.0); Alkaline Phosphatase 187 U/L (38-126); Anion Gap 6 mmol/L; Blood Urea Nitrogen 11 mg/dL (7-17); Calcium 8.7 mg/dL (8.4-10.2); Carbon Dioxide 25 mmol/L (22-30); Chloride 107 mmol/L (98-107); Glucose 117 mg/dL (74-99); Non-African American GFR(CKD) >90 (>60 ml/min/1.73 sqM); Potassium 4.2 mmol/L (3.5-5.1); Sodium 138 mmol/L (137-145); Total Bilirubin 0.8 mg/dL (0.2-1.3); Total Protein 6.5 g/dL (6.3-8.2)
[2025-02-14] MEDS: MORPHINE SULFATE 4 MG/ML SYRINGE IVP STA (18:57)
[2025-02-14] MEDS: cefTRIAXone IN SWFI 1,000 MG/10 ML SYRINGE IVP STA (18:58)
[2025-02-14] MEDS: CEPHALEXIN 500MG STARTER PACK 4 CAP BTL PO STA (18:58)
[2025-02-14] MEDS: ACET/COD 300 MG/30 MG STARTER PACK 6 TAB BTL PO STA (18:58)
[2025-02-14] MEDS: MUPIROCIN 2% OINT 22 GM TUBE TOPICAL STA (19:01)
[2025-02-14 19:20] VITALS: BP 146/76; PULSE 59; RESP 17; TEMP 98.1
== END 2025-02-14 19:26 | disposition home or self-care (01) ==
LOC: EC 15:04
DX: L03.311 Cellulitis of abdominal wall (principal); R07.89 Other chest pain; Z87.891 Personal history of nicotine dependence; Z88.8 Allergy status to other drugs, medicaments and biological substances
CPT/HCPCS: 36415; 80053; 85025; 71046; 99284; 96374; 96375; J2270; J0696

== ENCOUNTER 2025-02-19 20:02 | Emergency (ER) | payer OTHER ==
[2025-02-19 20:18] VITALS: RESP 18
--- NOTE | 2025-02-19 20:27 | ED ---
Recheck HPI - General Source: patient, RN notes reviewed Mode of arrival: wheelchair <Jn Lemon - Last Filed: 02/19/25 20:25> <Ortiz Mariano - Last Filed: 02/19/25 22:55> - General Chief Complaint: Recheck/Abnormal Lab/Rx Stated Complaint: Drainage catheter pain Time Seen by Provider: 02/19/25 20:16 - History of Present Illness Initial Comments: This is a 49-year-old female presenting with left lung catheter pain (09/09) x 3 weeks. Patient describes pain as burning and radiating to back, worsening earlier today. Patient states catheter was originally placed by Dr. Ortiz on 09/29/2024 and due to repeat removed on 03/10/2025. Patient states catheter was drained yesterday without complication. States worst pain is under her left breast with red line appearing on breast. Endorses use of Tylenol with minimal relief. (Jn Lemon) Dictation was produced using [employer] dictation software. please excuse any grammatical, word or spelling errors. Chief Complaint: 49-year-old female presents to the emergency department with Pleurx catheter pain History of Present Illness: Patient is a 41-year-old female she had a bypass grafting performed in August of last year. Patient was having excessive pleural effusions and Pleurx catheter was placed back at that time for fluid drainage. She has been living with this for several months. Over the last 3 to 4 weeks she has had significant pain especially to the skin around the Pleurx catheter site. Denies any drainage. She contacted her cardiothoracic surgeon who did not feel that removal was necessary at this point given that there is still significant output. Patient states that there is pain over skin. Requesting pain denies any fever chills night sweats. No shortness of breath. The ROS documented in this emergency department record has been reviewed and confirmed by me. Those systems with pertinent positive or negative responses have been documented in the HPI. All other systems are other negative and/or noncontributory. (Ortiz Mariano) - Related Data Home Medications Medication Instructions Recorded Confirmed Atorvastatin Calcium [Lipitor] 40 mg PO DAILY 09/15/24 02/02/25 Gabapentin [Neurontin] 300 mg PO HS 09/23/24 02/02/25 Losartan [Cozaar] 12.5 mg PO DAILY 10/03/24 02/02/25 Metoprolol Tartrate [Lopressor] 25 mg PO BID 11/01/24 02/02/25 Omeprazole 20 mg PO DAILY 12/07/24 02/02/25 Benzonatate [Tessalon Perles] 100 mg PO TID PRN 12/15/24 02/02/25 Empagliflozin [Jardiance] 10 mg PO DAILY 12/15/24 02/02/25 Ferrous Sulfate [Iron (65 MG 325 mg PO DAILY 12/15/24 02/02/25 Elemental)] Midodrine HCl [ProAmantine] 2.5 mg PO AC-TID 12/15/24 02/02/25 Nitroglycerin Sl Tabs [Nitrostat] 0.4 mg SL Q5M PRN 12/15/24 02/02/25 traMADol HCL 50 mg PO Q4-6H PRN 02/02/25 02/02/25 Previous Rx's Medication Instructions Recorded Aspirin 81 mg PO DAILY tab 10/01/24 Ondansetron Odt [Zofran ODT] 4 mg PO Q8HR PRN #20 tab 10/14/24 Petrolat,White/Shlomo/8-Hydroxyqu 1 gm TOPICAL TID PRN gm 10/14/24 [Bag [place]] Nystatin 100,000 Unit/gm Powd 1 applic TOPICAL BID PRN 30 Days 11/16/24 [Mycostatin Powder] #10 each Acetaminophen Tab [Tylenol] 650 mg PO Q6HR PRN #90 tab 12/15/24 Cephalexin [Keflex] 500 mg PO Q6HR #28 cap 02/14/25 Cephalexin [Keflex] 500 mg PO Q6HR 5 Days #20 cap 02/19/25 Allergies Allergy/AdvReac Type Severity Reaction Status Date / Time capsaicin Allergy Rash/Hives/ Verified 02/19/25 20:18 Swelling Review of Systems ROS Other: All systems not noted in ROS Statement are negative. <Jn Lemon - Last Filed: 02/19/25 20:25> ROS Other: All systems not noted in ROS Statement are negative. <Ortiz Mariano - Last Filed: 02/19/25 22:55> ROS Statement: Those systems with pertinent positive or pertinent negative responses have been documented in the HPI. Past Medical History Past Medical History: Atrial Fibrillation, Coronary Artery Disease (CAD), Heart Failure, Diabetes Mellitus, GERD/Reflux, Hyperlipidemia, Hypertension, Liver Disease, Pneumonia, Syncope Additional Past Medical History / Comment(s): Hx pneumonia yrs ago. Hx kidney stones. Diet controlled diabetic (pt denies diabetes 02/02/25). Seasonal allergies. Left internal carotid artery stenosis. Cirrhosis of liver. No menses in 4 1/2 yrs, states body does not make enough Estrogen. Recurrent pleural effusions. Pericardial effusion, bilateral breast abscesses for the past 5 years History of Any Multi-Drug Resistant Organisms: None Reported Past Surgical History: Appendectomy, Breast Surgery, Cholecystectomy, Coronary Bypass/CABG, Heart Catheterization With Stent, Orthopedic Surgery, Tubal Ligation Additional Past Surgical History / Comment(s): Right wrist carpal tunnel surgery, dental surgery- teeth removed, left breast abcess I&D X3, right breast abcess I&D X2, left ankle surgery, triple CABG 08/09/2024, multiple thoracentesis. Cardiac sents x2 and bilateral carotid stents 08/09/24. Left VATS with talc pleurodesis and placement of left-sided pleurx catheter 09/29/[address] Ortiz; subxiphoid pericardial window 10/04/2024 Past Anesthesia/Blood Transfusion Reactions: No Reported Reaction, Family History of Problems w/ Anesthesia Additional Past Anesthesia/Blood Transfusion Reaction / Comment(s): No blood transfusion to date. Mom stopped breathing during a surgery and was resuscitated. Date of Last Stent Placement:: 07/30/24 Past Psychological History: Anxiety, Bipolar, Depression Smoking Status: Former smoker Past Alcohol Use History: None Reported Past Drug Use History: None Reported - Past Family History Mother Family Medical History: Cancer Additional Family Medical History / Comment(s): schizoaffective disorder, unsure which type of cancer Father History Unknown: Yes Family Medical History: Unable to Obtain Additional Family Medical History / Comment(s): Patient did not know her father <Jn Lemon - Last Filed: 02/19/25 20:25> General Exam <Jn Lemon - Last Filed: 02/19/25 20:25> <Ortiz Mariano - Last Filed: 02/19/25 22:55> - General Exam Comments Initial Comments: Visual Physical Exam Vital signs reviewed General: Patient is tearful, seated in wheelchair Head: Normocephalic, atraumatic Eyes: PERRLA, EOMI ENT: Airway patent Chest: Nonlabored breathing Skin: No visual rash, normal skin tone Neuro: Alert and oriented 3 Musculoskeletal: No gross abnormalities (Jn Lemon) PHYSICAL EXAM: General Impression: Alert and oriented x3, not in acute distress HEENT: Normocephalic atraumatic, extra-ocular movements intact, pupils equal and reactive to light bilaterally, mucous membranes moist. Cardiovascular: Heart regular rate and rhythm Chest: Able to complete full sentences, no retractions, no tachypnea Abdomen: abdomen soft, non-tender, non-distended, no organomegaly Musculoskeletal: Pulses present and equal in all extremities, no peripheral edema Motor: no focal deficits noted Neurological: CN II-XII grossly intact, no focal motor or sensory deficits noted Skin: Intact with no visualized rashes, Pleurx catheter site clean dry and intact with no drainage. No erythema Psych: Normal affect and mood (Ortiz Mariano) Course Vital Signs 02/19/25 20:15 Temperature 98.5 F Pulse Rate 69 Respiratory 18 Rate Blood Pressure 136/77 O2 Sat by Pulse 98 Oximetry Medical Decision Making <Jn Lemon - Last Filed: 02/19/25 20:25> - Lab Data Result diagrams: 02/19/25 21:13 02/19/25 21:13 <Ortiz Mariano - Last Filed: 02/19/25 22:55> - Medical Decision Making I completed the quick note portion of this chart signed TAB Angela (Jn Lemon) Was pt. sent in by a medical professional or institution (ANDREW Christy, FORESTRY PROFESSOR, urgent care, hospital, or custodial...) When possible be specific @ -No Did you speak to anyone other than the patient for history (EMS, parent, family, police, friend...)? What history was obtained from this source @ -No Did you review nursing and triage notes (agree or disagree)? Why? @ -I reviewed and agree with nursing and triage notes Were old charts reviewed (outside hosp., previous admission, EMS record, old EKG, old radiological studies, urgent care reports/EKG's, custodial records)? Report findings @ -No old charts were reviewed Differential Diagnosis (chest pain, altered mental status, abdominal pain women, abdominal pain men, vaginal bleeding, musculoskeletal, weakness, fever, dyspnea, syncope, headache, dizziness, GI bleed, back pain, seizure, CVA, palpatations, mental health)? @ -Cellulitis, pneumothorax, displacement of catheter EKG interpreted by me (3pts min.). @ -None done X-rays interpreted by me (1pt min.). @ -Chest x-ray shows no acute processes CT interpreted by me (1pt min.). @ -CT chest with no contrast shows slight inflammation around the Pleurx catheter site. U/S interpreted by me (1pt. min.). @ -None done What testing was considered but not performed or refused? (CT, X-rays, U/S, labs)? Why? @ -None What meds were considered but not given or refused? Why? @ -None Was smoking cessation discussed for >3mins.? @ -No Were there social determinants of health that impacted care today? How? (Homelessness, low income, unemployed, alcoholism, drug addiction, transportation, low edu. Level, literacy, decrease access to med. care, [facility], rehab)? @ -No Was there de-escalation of care discussed even if they declined (Discuss DNR or withdrawal of care, Hospice)? DNR status @ -No What co-morbidities impacted this encounter? (DM, HTN, Smoking, COPD, CAD, Cancer, CVA, ARF, Chemo, Hep., AIDS, mental health diagnosis, sleep apnea, morbid obesity)? @ -None Was patient admitted / discharged? Hospital course, mention meds given and route, prescriptions, significant lab abnormalities, going to OR and other pertinent info. @ -49-year-old female presents to the emergency department for acute on chronic pain of the Pleurx catheter site. Physical examination is benign. No obvious infection. Laboratory evaluation is unremarkable. CT shows some cellulitis around the Pleurx catheter site. Otherwise good positioning. Patient given prescription for Keflex. Advised follow-up with cardiothoracic surgeon. Did you discuss the management of the patient with other professionals (professionals i.e. , PA, FORESTRY PROFESSOR, lab, RT, psych nurse, social media coordinator, automotive electrician, teacher, combat systems officer, rn case manager)? Give summary @ -No Was critical care preformed (if so, how long)? @ -No Undiagnosed new problem with uncertain prognosis? @ -No Drug Therapy requiring intensive monitoring for toxicity (Heparin, Nitro, I nsulin, Cardizem)? @ -No Were any procedures done? @ -No Diagnosis/symptom? Acute, or Chronic, or Acute on Chronic? Uncomplicated (without systemic symptoms) or Complicated (systemic symptoms)? @ -Pleurx catheter pain Side effects of treatment? @ -No Exacerbation, Progression, or Severe Exacerbation? @ -No Poses a threat to life or bodily function? How? (Chest pain, USA, VT, pneumonia, PE, COPD, DKA, ARF, appy, cholecystitis, CVA, Diverticulitis, Homicidal, Suicidal, threat to staff... and all critical care pts) @ -No (Ortiz Mariano) - Lab Data Lab Results 02/19/25 02/19/25 Range/Units 21:13 21:13 WBC 4.7 (3.8-10.6) k/uL RBC 4.36 (3.80-5.40) m/uL Hgb 11.2 L (11.4-16.0) gm/dL Hct 36.3 (34.0-46.0) % MCV 83.2 (80.0-100.0) fL MCH 25.7 (25.0-35.0) pg MCHC 30.9 L (31.0-37.0) g/dL RDW 15.5 (11.5-15.5) % Plt Count 109 L (150-450) k/uL MPV 10.6 Neutrophils % 55 % Lymphocytes % 27 % Monocytes % 10 % Eosinophils % 6 % Basophils % 0 % Neutrophils # 2.6 (1.3-7.7) k/uL Lymphocytes # 1.3 (1.0-4.8) k/uL Monocytes # 0.5 (0-1.0) k/uL Eosinophils # 0.3 (0-0.7) k/uL Basophils # 0.0 (0-0.2) k/uL Hypochromasia Marked Sodium 138 (137-145) mmol/L Potassium 4.5 (3.5-5.1) mmol/L Chloride 109 H (98-107) mmol/L Carbon Dioxide 21 L (22-30) mmol/L Anion Gap 8 mmol/L BUN 14 (7-17) mg/dL Creatinine 0.67 (0.52-1.04) mg/dL Est GFR (CKD-EPI)AfAm >90 (>60 ml/min/1.73 sqM) Est GFR (CKD-EPI)NonAf >90 (>60 ml/min/1.73 sqM) Glucose 133 H (74-99) mg/dL Calcium 8.2 L (8.4-10.2) mg/dL Total Bilirubin 1.2 (0.2-1.3) mg/dL AST 65 H (14-36) U/L ALT 43 H (4-34) U/L Alkaline Phosphatase 205 H (38-126) U/L Total Protein 6.4 (6.3-8.2) g/dL Albumin 3.4 L (3.5-5.0) g/dL Disposition <Jn Lemon - Last Filed: 02/19/25 20:25> Is patient prescribed a controlled substance at d/c from ED?: No Time of Disposition: 22:55 <Ortiz Mariano - Last Filed: 02/19/25 22:55> Clinical Impression: Acute pain associated with presence of chest tube Disposition: HOME SELF-CARE Condition: Fair Instructions (If sedation given, give patient instructions): Chest Tubes (DC) Prescriptions: Cephalexin [Keflex] 500 mg PO Q6HR 5 Days #20 cap Referrals: Sara Velarde MD [Primary Care Provider] - 1-2 days Phong Ortiz MD [STAFF PHYSICIAN] - 1-2 days
--- NOTE | 2025-02-19 20:50 | XR ---
EXAMINATION TYPE: XR chest 2V DATE OF EXAM: 02/19/2025 8:40 PM COMPARISON: Chest radiographs from 02/14/2025. CLINICAL INDICATION: Female, 49 years old with history of Left lung catheter pain; [facility] TECHNIQUE: XR chest 2V Frontal and lateral views of the chest. FINDINGS: Lungs/Pleura: There is no evidence of pleural effusion, focal consolidation, or pneumothorax. Pulmonary vascularity: Unremarkable. Heart/mediastinum: Cardiomediastinal silhouette is unremarkable. The aorta appears tortuous, a findi ng usually associated with either atherosclerosis or systemic hypertension. Left atrial appendage occ lusion device is present. Musculoskeletal: No acute osseous pathology. Other findings: None Left thoracotomy tube without evidence of pneumothorax. IMPRESSION: 1. Left upper extremity without evidence of pneumothorax. 2. No acute cardiopulmonary disease/process. [facility], , 02/19/2025 8:48 PM
[2025-02-19 21:29] LABS: Basophils % (A) 0 %; Eosinophils # (A) 0.3 k/uL (0-0.7); Eosinophils % (A) 6 %; HCT 36.3 % (34.0-46.0); HGB 11.2 gm/dL (11.4-16.0); Hypochromasia Marked; Lymphocytes # (A) 1.3 k/uL (1.0-4.8); Lymphocytes % (A) 27 %; MCH 25.7 pg (25.0-35.0); MCHC 30.9 g/dL (31.0-37.0); MCV 83.2 fL (80.0-100.0); Mean Platelet Volume 10.6; Monocytes # (A) 0.5 k/uL (0-1.0); Monocytes % (A) 10 %; Neutrophils # (A) 2.6 k/uL (1.3-7.7); Neutrophils % (A) 55 %; Platelet Count 109 k/uL (150-450); RBC 4.36 m/uL (3.80-5.40); RDW 15.5 % (11.5-15.5); WBC 4.7 k/uL (3.8-10.6)
[2025-02-19] MEDS: HYDROmorphone 1 MG/ML 1 ML SYRINGE IVP STA (21:56)
[2025-02-19 22:10] LABS: ALT 43 U/L (4-34); African American GFR (CKD) >90 (>60 ml/min/1.73 sqM); Anion Gap 8 mmol/L; Blood Urea Nitrogen 14 mg/dL (7-17); Calcium 8.2 mg/dL (8.4-10.2); Carbon Dioxide 21 mmol/L (22-30); Chloride 109 mmol/L (98-107); Glucose 133 mg/dL (74-99); Non-African American GFR(CKD) >90 (>60 ml/min/1.73 sqM); Sodium 138 mmol/L (137-145); Total Bilirubin 1.2 mg/dL (0.2-1.3)
[2025-02-19 22:14] LABS: AST 65 U/L (14-36); Albumin 3.4 g/dL (3.5-5.0); Alkaline Phosphatase 205 U/L (38-126); Potassium 4.5 mmol/L (3.5-5.1); Total Protein 6.4 g/dL (6.3-8.2)
--- NOTE | 2025-02-19 22:35 | CT ---
EXAMINATION TYPE: CT chest wo con DATE OF EXAM: 02/19/2025 10:11 PM COMPARISON: 12/07/2024 CLINICAL INDICATION: Female, 49 years old with history of pleurx cath site pain; [facility], Left pleurx cat h site pain. Multiple para's. Open heart surgery last August. TECHNIQUE: Multiple axial images were obtained through the chest. Sagittal and coronal reformats were created for review. MIP was performed on a separate workstation. Contrast used: mL of (None if empty) Oral contrast used: (None if empty) CT DLP: 430.8 mGycm, Automated exposure control for dose reduction was used. FINDINGS: LUNGS/ PLEURA: No focal consolidation, pneumothorax or pleural effusion. AIRWAY: Patent and unremarkable. HEART: Cardiomegaly is demonstrated. Post CABG changes. Moderate coronary artery calcifications prese nt. Left atrial appendage occlusion device. MEDIASTINUM: No gross evidence of adenopathy. VASCULATURE: No aortic aneurysm. MUSCULOSKELETAL: Mild disc degeneration changes are present throughout the thoracolumbar spine second marycarmen to osteophyte formation and facet joint arthropathy. Sternotomy wires in the sternum. SOFT TISSUES/LYMPH NODES: Left Pleurx catheter appears intact and in position in appropriate position . No organizing fluid collections. Mild Fat stranding. Remote appearing left-sided anterior rib fract ure. LOWER NECK: No significant findings. UPPER ABDOMEN: Spleen is enlarged up to 13.5 cm. Nonobstructing renal calculus at the 5 mm. The Cob[place] surgically absent. Nodular contour to liver. No liver masses identified. IMPRESSION: 1. Left Pleurx catheter appears intact and in position in appropriate position. No organizing fluid collections. mild inflammation correlate for some cellulitis. There remains trace left pleural effusi on. 2. Nonobstructing right renal calculus. 3. Hepatic cirrhosis. No masses identified on this noncontrast CT. 4. Post surgical changes the coronal arteries with mild cardiomegaly. [facility], , 02/19/2025 10:33 PM
[2025-02-19] MEDS: ACET/COD 300 MG/30 MG STARTER PACK 6 TAB BTL PO STA (23:04)
[2025-02-19 23:07] VITALS: BP 118/53; PULSE 60; TEMP 98.3
== END 2025-02-19 23:07 | disposition home or self-care (01) ==
LOC: EC 20:02
DX: R07.81 Pleurodynia (principal); Z87.891 Personal history of nicotine dependence; Z88.8 Allergy status to other drugs, medicaments and biological substances
CPT/HCPCS: 36415; 80053; 85025; 71046; 71250; 99283; 96374; J1171

== ENCOUNTER 2025-03-09 16:13 | Inpatient (IN) | payer OTHER ==
[2025-03-09 17:46] LABS: Basophils # (A) 0.04 10*3/uL (0.00-0.10); Basophils % (A) 0.6 %; Eosinophils # (A) 0.26 10*3/uL (0.04-0.35); Eosinophils % (A) 4.2 %; HCT 35.6 % (37.2-46.3); HGB 11.1 g/dL (12.0-15.0); Lymphocytes # (A) 0.95 10*3/uL (0.90-5.00); Lymphocytes % (A) 15.2 %; MCH 25.2 pg (27.0-32.0); MCHC 31.2 g/dL (32.0-37.0); MCV 80.9 fL (80.0-97.0); Monocytes # (A) 0.65 10*3/uL (0.20-1.00); Monocytes % (A) 10.4 %; Neutrophils # (A) 4.33 10*3/uL (1.80-7.70); Neutrophils % (A) 69.3 %; RDW 15.8 % (11.5-14.5); WBC 6.25 10*3/uL (4.50-10.00)
[2025-03-09] MEDS: IBUPROFEN 600 MG TAB PO STA (17:46)
[2025-03-09] MEDS: ACETAMINOPHEN TAB 325 MG TAB PO STA (17:46)
[2025-03-09 17:59] LABS: ALT 26 U/L (4-34); AST 34 U/L (14-36); African American GFR (CKD) >90 (>60 ml/min/1.73 sqM); Albumin 3.4 g/dL (3.5-5.0); Alkaline Phosphatase 157 U/L (38-126); Anion Gap 4 mmol/L; Blood Urea Nitrogen 11 mg/dL (7-17); Calcium 8.7 mg/dL (8.4-10.2); Carbon Dioxide 27 mmol/L (22-30); Chloride 105 mmol/L (98-107); Glucose 104 mg/dL (74-99); Magnesium 1.6 mg/dL (1.6-2.3); Non-African American GFR(CKD) >90 (>60 ml/min/1.73 sqM); Potassium 4.1 mmol/L (3.5-5.1); Sodium 136 mmol/L (137-145); Total Bilirubin 1.2 mg/dL (0.2-1.3); Total Protein 6.6 g/dL (6.3-8.2)
[2025-03-09 18:04] LABS: INR 1.2 (<1.2); Partial Thromboplastin Time 26.7 sec (22.0-30.0); Prothrombin Time 12.7 sec (10.0-12.5)
[2025-03-09] MEDS: methylPREDNISolone SOD SUCCI 125 MG/2 ML VIAL IV STA (18:05)
[2025-03-09 18:11] LABS: Large Platelets Present
[2025-03-09 18:12] LABS: Polychromasia Present
[2025-03-09 18:13] LABS: Ovalocytes Present; Platelet Count 89 10*3/uL (140-440)
--- NOTE | 2025-03-09 18:17 | XR ---
EXAMINATION TYPE: XR chest 2V DATE OF EXAM: 03/09/2025 6:13 PM COMPARISON: Chest radiographs from 02/17/2025. CLINICAL INDICATION: Female, 50 years old with history of difficulty breathing; [facility] TECHNIQUE: XR chest 2V Frontal and lateral views of the chest. FINDINGS: Lungs/Pleura: There is no evidence of pleural effusion, focal consolidation, or pneumothorax. Pulmonary vascularity: Unremarkable. Heart/mediastinum: Cardiomediastinal silhouette is unremarkable. Atherosclerotic calcifications are seen in the aorta. Left atrial appendage occlusion device is present. Musculoskeletal: No acute osseous pathology. Midline sternotomy wires and surgical clips project over the mediastinum. Other findings: None IMPRESSION: No acute cardiopulmonary disease/process. [facility], , 03/09/2025 6:15 PM
[2025-03-09] MEDS: IPRATROPIUM-ALBUTEROL 3 ML NEB INHALATION STA (18:22)
[2025-03-09] MEDS: MORPHINE SULFATE 4 MG/ML SYRINGE IVP STA (18:27)
[2025-03-09 19:20] LABS: Influenza A Not Detected (Not Detectd); Influenza B Not Detected (Not Detectd); RSV Not Detected (Not Detectd)
--- NOTE | 2025-03-09 21:39 | CT ---
EXAMINATION TYPE: CT chest angio for PE DATE OF EXAM: 03/09/2025 8:54 PM COMPARISON: Chest radiograph from same day. Multiple CTs of the chest with most recent on 02/19/2025. . CLINICAL INDICATION: Female, 50 years old with history of CP, SOB; Patient reports shortness of breat h/ patient had chronic chest tube/catheter removed last friday. patient reports head congestion as we ll. TECHNIQUE/CONTRAST: CTA scan of the thorax is performed with IV Contrast, patient injected with 100ml mL of Isovue 370, M IP images are created and reviewed these are created on a separate workstation.. CT DLP: 496.5 mGycm, Automated exposure control for dose reduction was used. FINDINGS: Lungs/Pleura: Small left pleural effusion. Tracks along the major fissure. Anterolateral septal thick ening. Airway: Large airways are patent. Heart: Cardiomegaly is demonstrated. No significant coronary artery calcifications. Vasculature: There is no evidence for a filling defect within the pulmonary vasculature to suggest ac [place] pulmonary embolism. The pulmonary artery is of normal size. Mediastinum: No gross evidence of adenopathy. Musculoskeletal: No acute osseous abnormalities sternotomy wire changes are present. Atrial appendage occlusion device present. Soft Tissues/lymph nodes: Unremarkable. Lower neck: No significant findings. Upper Abdomen: Nodular contour to the liver with caudate lobe fracture to be changes. The spleen is e nlarged measuring up to 14.2 cm on axial imaging. Most attenuating probable cyst measuring 14 Hounsfi eld units. No follow-up recommended. 4 mm right renal nausea and calculus. Left renal nonobstructing 4 mm calculi. IMPRESSION: 1. No evidence of pulmonary embolism. 2. Cardiomegaly with pulmonary vascular congestion and small left pleural effusion, correlate for vo lume overload/congestive heart failure/sequela of hepatic cirrhosis. 3. Hepatocellular disease compatible with cirrhosis with evidence of portal hypertension. 4. Cholecystectomy changes. 5. Bilateral nonobstructing renal calculi. Follow up recommendations for incidental pulmonary nodules, if there are any, are per [employer] or [employer]. https://radiopaedia.org/articles/ytdkcgogev-ckpwfvy-oxhhbcvpp-tziexg-[email or web address]-7?lang=us [facility], , 03/09/2025 9:37 PM
[2025-03-09] MEDS: HYDROmorphone 0.5 MG/0.5 ML SYRINGE IVP STA (22:44)
[2025-03-09 22:55] LABS: Appearance,Urine Clear (Clear); Bilirubin,Urine Negative (Negative); Blood,Urine Negative (Negative); Color,Urine Light Yellow; Glucose,Urine (UA) 4+ (Negative); Ketones,Urine Negative (Negative); Leukocyte Esterase,Urine Negative (Negative); Nitrite,Urine Negative (Negative); PH, Urine 6.5 (5.0-8.0); Protein,Urine Negative (Negative); Specific Gravity,Urine 1.031 (1.001-1.035); Urobilinogen,Urine <2.0 mg/dL (<2.0)
[2025-03-09] MEDS ORDERED: IBUPROFEN 400 MG TAB PO PRN (23:31)
[2025-03-09] MEDS ORDERED: ACETAMINOPHEN TAB 325 MG TAB PO PRN (23:31)
[2025-03-09] MEDS ORDERED: NALOXONE 0.4 MG/ML 1 ML VIAL IV PRN (23:31)
--- NOTE | 2025-03-09 23:36 | ED ---
General Adult HPI - General Chief complaint: Shortness of Breath Stated complaint: Congestion,Cough Time Seen by Provider: 03/09/25 16:51 Source: patient Mode of arrival: ambulatory Limitations: no limitations - History of Present Illness Initial comments: 50-year-old female presenting with chief complaint of shortness of breath and fever. Patient reports that today she is "just not feeling well". She recently had her Pleurx catheter removed on Friday. She had this in place for several months after having a CABG done and having recurrent fluid accumulation. Today the patient is experiencing a fever as well as a cough. She reports that it feels like it is difficult to take a deep breath. She states that her chest feels heavy. She denies nausea or vomiting. She does have a small amount of swelling in the lower extremities. - Related Data Home Medications Medication Instructions Recorded Confirmed Atorvastatin Calcium [Lipitor] 40 mg PO DAILY 09/15/24 02/02/25 Gabapentin [Neurontin] 300 mg PO HS 09/23/24 02/02/25 Losartan [Cozaar] 12.5 mg PO DAILY 10/03/24 02/02/25 Metoprolol Tartrate [Lopressor] 25 mg PO BID 11/01/24 02/02/25 Omeprazole 20 mg PO DAILY 12/07/24 02/02/25 Benzonatate [Tessalon Perles] 100 mg PO TID PRN 12/15/24 02/02/25 Empagliflozin [Jardiance] 10 mg PO DAILY 12/15/24 02/02/25 Ferrous Sulfate [Iron (65 MG 325 mg PO DAILY 12/15/24 02/02/25 Elemental)] Midodrine HCl [ProAmantine] 2.5 mg PO AC-TID 12/15/24 02/02/25 Nitroglycerin Sl Tabs [Nitrostat] 0.4 mg SL Q5M PRN 12/15/24 02/02/25 traMADol HCL 50 mg PO Q4-6H PRN 02/02/25 02/02/25 Previous Rx's Medication Instructions Recorded Aspirin 81 mg PO DAILY tab 10/01/24 Ondansetron Odt [Zofran ODT] 4 mg PO Q8HR PRN #20 tab 10/14/24 Petrolat,White/Shlomo/8-Hydroxyqu 1 gm TOPICAL TID PRN gm 10/14/24 [Bag [place]] Nystatin 100,000 Unit/gm Powd 1 applic TOPICAL BID PRN 30 Days 11/16/24 [Mycostatin Powder] #10 each Acetaminophen Tab [Tylenol] 650 mg PO Q6HR PRN #90 tab 12/15/24 Cephalexin [Keflex] 500 mg PO Q6HR #28 cap 02/14/25 Cephalexin [Keflex] 500 mg PO Q6HR 5 Days #20 cap 02/19/25 Allergies Allergy/AdvReac Type Severity Reaction Status Date / Time capsaicin Allergy Rash/Hives/ Verified 02/19/25 20:18 Swelling Review of Systems ROS Statement: Those systems with pertinent positive or pertinent negative responses have been documented in the HPI. ROS Other: All systems not noted in ROS Statement are negative. Past Medical History Past Medical History: Atrial Fibrillation, Coronary Artery Disease (CAD), Heart Failure, Diabetes Mellitus, GERD/Reflux, Hyperlipidemia, Hypertension, Liver Disease, Pneumonia, Syncope Additional Past Medical History / Comment(s): Hx pneumonia yrs ago. Hx kidney stones. Diet controlled diabetic (pt denies diabetes 02/02/25). Seasonal miriam rgies. Left internal carotid artery stenosis. Cirrhosis of liver. No menses in 4 1/2 yrs, states body does not make enough Estrogen. Recurrent pleural effusions. Pericardial effusion, bilateral breast abscesses for the past 5 years History of Any Multi-Drug Resistant Organisms: None Reported Past Surgical History: Appendectomy, Breast Surgery, Cholecystectomy, Coronary Bypass/CABG, Heart Catheterization With Stent, Orthopedic Surgery, Tubal Li gation Additional Past Surgical History / Comment(s): Right wrist carpal tunnel surgery, dental surgery- teeth removed, left breast abcess I&D X3, right breast abcess I&D X2, left ankle surgery, triple CABG 08/09/2024, multiple thoracentesis. Cardiac sents x2 and bilateral carotid stents 08/09/24. Left VATS with talc pleurodesis and placement of left-sided pleurx catheter 09/29/[address] Ortiz; subxiphoid pericardial window 10/04/2024 Past Anesthesia/Blood Transfusion Reactions: No Reported Reaction, Family History of Problems w/ Anesthesia Additional Past Anesthesia/Blood Transfusion Reaction / Comment(s): No blood transfusion to date. Mom stopped breathing during a surgery and was resuscitated. Date of Last Stent Placement:: 07/30/24 Past Psychological History: Anxiety, Bipolar, Depression Smoking Status: Former smoker Past Alcohol Use History: None Reported Past Drug Use History: None Reported - Past Family History Mother Family Medical History: Cancer Additional Family Medical History / Comment(s): schizoaffective disorder, unsure which type of cancer Father History Unknown: Yes Family Medical History: Unable to Obtain Additional Family Medical History / Comment(s): Patient did not know her father General Exam Limitations: no limitations General appearance: alert, in no apparent distress Head exam: Present: atraumatic, normocephalic, normal inspection Eye exam: Present: normal appearance, PERRL, EOMI. Absent: periorbital swelling Neck exam: Present: normal inspection. Absent: meningismus Respiratory exam: Present: normal lung sounds bilaterally. Absent: respiratory distress, wheezes, rales, rhonchi, stridor Cardiovascular Exam: Present: regular rate, normal rhythm, normal heart sounds. Absent: systolic murmur, diastolic murmur, rubs, gallop, clicks Extremities exam: Present: pedal edema Neurological exam: Present: alert, oriented X3 Psychiatric exam: Present: normal affect, normal mood Skin exam: Present: warm, dry, normal color Course Vital Signs 03/09/25 03/09/25 03/09/25 16:36 17:37 18:08 Temperature 99.9 F H 100.7 F H Pulse Rate 84 Respiratory 24 20 Rate Blood Pressure 145/81 O2 Sat by Pulse 99 Oximetry 03/09/25 03/09/25 03/09/25 18:23 18:34 18:37 Temperature 100.1 F H Pulse Rate 72 74 81 Respiratory 20 Rate Blood Pressure 110/73 O2 Sat by Pulse 95 Oximetry 03/09/25 03/09/25 22:12 22:55 Temperature 98.4 F Pulse Rate 69 Respiratory 18 Rate Blood Pressure 105/68 O2 Sat by Pulse 95 Oximetry Medical Decision Making - Medical Decision Making Was pt. sent in by a medical professional or institution (, PA, [employer], urgent care, hospital, or long-term...) When possible be specific @ -No Did you speak to anyone other than the patient for history (EMS, parent, family, police, friend...)? What history was obtained from this source @ -No Did you review nursing and triage notes (agree or disagree)? Why? @ -I reviewed and agree with nursing and triage notes Were old charts reviewed (outside hosp., previous admission, EMS record, old EKG, old radiological studies, urgent care reports/EKG's, long-term records)? Report findings @ -No old charts were reviewed Differential Diagnosis (chest pain, altered mental status, abdominal pain women, abdominal pain men, vaginal bleeding, weakness, fever, dyspnea, syncope, headache, dizziness, GI bleed, back pain, seizure, CVA, palpatations, mental health, musculoskeletal)? @ - MDM Differential Fever: Pneumonia, viral URI, endocarditis, myocarditis, pericarditis, otitis, sinusitis, peritonsillar Abscess, retropharyngeal Abscess, epiglottitis, perit onitis, appendicitis, Jenniffer cystitis, diverticulitis, hepatitis, colitis, UTI, PID, TOA, pyelonephritis, prostatitis, epididymitis, meningitis, encephalitis, pulmonary embolism, CVA, thyroid storm, pancreatitis, adrenal crisis, cavernous sinus thrombosis… this is not meant to be an all-inclusive list. EKG interpreted by me (3pts min.). @ -As above X-rays interpreted by me (1pt min.). @ -Chest x-ray shows no acute process CT interpreted by me (1pt min.). @ -CTA shows no evidence of pulmonary embolism. Cardiomegaly with pulmonary vascular congestion and small left pleural effusion correlate for volume overload/could have just of heart failure/sequelae of hepatic cirrhosis. Hepatocellular disease compatible with cirrhosis with evidence of portal hypertension. Cholecystectomy changes. Bilateral nonobstructing renal calculi. U/S interpreted by me (1pt. min.). @ -None done What testing was considered but not performed or refused? (CT, X-rays, U/S, labs)? Why? @ -None What meds were considered but not given or refused? Why? @ -None Did you discuss the management of the patient with other professionals (professionals i.e. , PA, [employer], lab, RT, psych nurse, social worker school, air brush decorator, teacher, mortgage loan officer originator, case liner)? Give summary @ -With Trisha Angulo from [facility] who accepts admission Was smoking cessation discussed for >3mins.? @ -No Was critical care preformed (if so, how long)? @ -No Were there social determinants of health that impacted care today? How? (Homelessness, low income, unemployed, alcoholism, drug addiction, transportation, low edu. Level, literacy, decrease access to med. care, mcc, rehab)? @ -No Was there de-escalation of care discussed even if they declined (Discuss DNR or withdrawal of care, Hospice)? DNR status @ -No What co-morbidities impacted this encounter? (DM, HTN, Smoking, COPD, CAD, Cancer, CVA, ARF, Chemo, Hep., AIDS, mental health diagnosis, sleep apnea, morbid obesity)? @ -None Was patient admitted / discharged? Hospital course, mention meds given and route, prescriptions, significant lab abnormalities, going to OR and other pertinent info. @ -50-year-old female presenting with chief complaint of fever and difficulty breathing. History and physical examination are conducted. Lab work shows no leukocytosis. Hemoglobin 11.1. Negative troponin. D-dimer 0.82. CTA is negative for pulmonary embolism. There is cardiomegaly with pulmonary vascular congestion and small left pleural effusion. She is negative for influenza, RSV, COVID. In the setting of her recent Pleurx catheter removal, there is concern for possible infectious pleural effusion. Patient will be admitted for observation. Patient is agreeable with this plan. I discussed this case with my attending Dr. Sosa Undiagnosed new problem with uncertain prognosis? @ -No Drug Therapy requiring intensive monitoring for toxicity (Heparin, Nitro, In sulin, Cardizem)? @ -No Were any procedures done? @ -No Diagnosis/symptom? @ -Pleural effusion with fever Acute, or Chronic, or Acute on Chronic? @ -Acute Uncomplicated (without systemic symptoms) or Complicated (systemic symptoms)? @ -Complicated Side effects of treatment? @ -No Exacerbation, Progression, or Severe Exacerbation? @ -No Poses a threat to life or bodily function? How? (Chest pain, USA, LA, pneumonia, PE, COPD, DKA, ARF, appy, cholecystitis, CVA, Diverticulitis, Homicidal, S uicidal, threat to staff... and all critical care pts) @ -Potential - Lab Data Result diagrams: 03/09/25 17:30 03/09/25 17:30 Lab Results 03/09/25 03/09/25 03/09/25 Range/Units 17:30 17:30 17:30 WBC 6.25 (4.50-10.00) 10*3/uL RBC 4.40 (4.10-5.20) 10*6/uL Hgb 11.1 L (12.0-15.0) g/dL Hct 35.6 L (37.2-46.3) % MCV 80.9 (80.0-97.0) fL MCH 25.2 L (27.0-32.0) pg MCHC 31.2 L (32.0-37.0) g/dL Plt Count 89 L (140-440) 10*3/uL Immature Gran % (Auto) 0.3 % Neutrophils % 69.3 % Lymphocytes % 15.2 % Monocytes % 10.4 % Eosinophils % 4.2 % Basophils % 0.6 % Immature Gran # 0.02 (0.00-0.04) 10*3/uL Neutrophils # 4.33 (1.80-7.70) 10*3/uL Lymphocytes # 0.95 (0.90-5.00) 10*3/uL Monocytes # 0.65 (0.20-1.00) 10*3/uL Eosinophils # 0.26 (0.04-0.35) 10*3/uL Basophils # 0.04 (0.00-0.10) 10*3/uL Manual Slide Review Performed Large Platelets Present Polychromasia Present Ovalocytes Present PT 12.7 H (10.0-12.5) sec INR 1.2 H (<1.2) APTT 26.7 (22.0-30.0) sec D-Dimer (<0.60) mg/L FEU Sodium 136 L (137-145) mmol/L Potassium 4.1 (3.5-5.1) mmol/L Chloride 105 (98-107) mmol/L Carbon Dioxide 27 (22-30) mmol/L Anion Gap 4 mmol/L BUN 11 (7-17) mg/dL Creatinine 0.72 (0.52-1.04) mg/dL Est GFR (CKD-EPI)AfAm >90 (>60 ml/min/1.73 sqM) Est GFR (CKD-EPI)NonAf >90 (>60 ml/min/1.73 sqM) Glucose 104 H (74-99) mg/dL Plasma Lactic Acid Tristin (0.7-2.0) mmol/L Calcium 8.7 (8.4-10.2) mg/dL Magnesium 1.6 (1.6-2.3) mg/dL Total Bilirubin 1.2 (0.2-1.3) mg/dL AST 34 (14-36) U/L ALT 26 (4-34) U/L Alkaline Phosphatase 157 H (38-126) U/L Troponin I (0.000-0.034) ng/mL NT-Pro-B Natriuret Pep pg/mL Total Protein 6.6 (6.3-8.2) g/dL Albumin 3.4 L (3.5-5.0) g/dL Urine Color Urine Appearance (Clear) Urine pH (5.0-8.0) Ur Specific [place] (1.001-1.035) Urine Protein (Negative) Urine Glucose (UA) (Negative) Urine Ketones (Negative) Urine Blood (Negative) Urine Nitrite (Negative) Urine Bilirubin (Negative) Urine Urobilinogen (<2.0) mg/dL Ur Leukocyte Esterase (Negative) Influenza Type A (PCR) (Not Detectd) Influenza Type B (PCR) (Not Detectd) RSV (PCR) (Not Detectd) SARS-CoV-2 (PCR) (Not Detectd) 03/09/25 03/09/25 03/09/25 Range/Units 17:30 17:30 17:30 WBC (4.50-10.00) 10*3/uL RBC (4.10-5.20) 10*6/uL Hgb (12.0-15.0) g/dL Hct (37.2-46.3) % MCV (80.0-97.0) fL MCH (27.0-32.0) pg MCHC (32.0-37.0) g/dL Plt Count (140-440) 10*3/uL Immature Gran % (Auto) % Neutrophils % % Lymphocytes % % Monocytes % % Eosinophils % % Basophils % % Immature Gran # (0.00-0.04) 10*3/uL Neutrophils # (1.80-7.70) 10*3/uL Lymphocytes # (0.90-5.00) 10*3/uL Monocytes # (0.20-1.00) 10*3/uL Eosinophils # (0.04-0.35) 10*3/uL Basophils # (0.00-0.10) 10*3/uL Manual Slide Review Large Platelets Polychromasia Ovalocytes PT (10.0-12.5) sec INR (<1.2) APTT (22.0-30.0) sec D-Dimer 0.82 H (<0.60) mg/L FEU Sodium (137-145) mmol/L Potassium (3.5-5.1) mmol/L Chloride (98-107) mmol/L Carbon Dioxide (22-30) mmol/L Anion Gap mmol/L BUN (7-17) mg/dL Creatinine (0.52-1.04) mg/dL Est GFR (CKD-EPI)AfAm (>60 ml/min/1.73 sqM) Est GFR (CKD-EPI)NonAf (>60 ml/min/1.73 sqM) Glucose (74-99) mg/dL Plasma Lactic Acid Tristin 1.0 (0.7-2.0) mmol/L Calcium (8.4-10.2) mg/dL Magnesium (1.6-2.3) mg/dL Total Bilirubin (0.2-1.3) mg/dL AST (14-36) U/L ALT (4-34) U/L Alkaline Phosphatase (38-126) U/L Troponin I <0.012 (0.000-0.034) ng/mL NT-Pro-B Natriuret Pep pg/mL Total Protein (6.3-8.2) g/dL Albumin (3.5-5.0) g/dL Urine Color Urine Appearance (Clear) Urine pH (5.0-8.0) Ur Specific [place] (1.001-1.035) Urine Protein (Negative) Urine Glucose (UA) (Negative) Urine Ketones (Negative) Urine Blood (Negative) Urine Nitrite (Negative) Urine Bilirubin (Negative) Urine Urobilinogen (<2.0) mg/dL Ur Leukocyte Esterase (Negative) Influenza Type A (PCR) (Not Detectd) Influenza Type B (PCR) (Not Detectd) RSV (PCR) (Not Detectd) SARS-CoV-2 (PCR) (Not Detectd) 04/09/25 04/09/25 04/09/25 Range/Units 17:41 18:36 22:45 WBC (4.50-10.00) 10*3/uL RBC (4.10-5.20) 10*6/uL Hgb (12.0-15.0) g/dL Hct (37.2-46.3) % MCV (80.0-97.0) fL MCH (27.0-32.0) pg MCHC (32.0-37.0) g/dL Plt Count (140-440) 10*3/uL Immature Gran % (Auto) % Neutrophils % % Lymphocytes % % Monocytes % % Eosinophils % % Basophils % % Immature Gran # (0.00-0.04) 10*3/uL Neutrophils # (1.80-7.70) 10*3/uL Lymphocytes # (0.90-5.00) 10*3/uL Monocytes # (0.20-1.00) 10*3/uL Eosinophils # (0.04-0.35) 10*3/uL Basophils # (0.00-0.10) 10*3/uL Manual Slide Review Large Platelets Polychromasia Ovalocytes PT (10.0-12.5) sec INR (<1.2) APTT (22.0-30.0) sec D-Dimer (<0.60) mg/L FEU Sodium (137-145) mmol/L Potassium (3.5-5.1) mmol/L Chloride (98-107) mmol/L Carbon Dioxide (22-30) mmol/L Anion Gap mmol/L BUN (7-17) mg/dL Creatinine (0.52-1.04) mg/dL Est GFR (CKD-EPI)AfAm (>60 ml/min/1.73 sqM) Est GFR (CKD-EPI)NonAf (>60 ml/min/1.73 sqM) Glucose (74-99) mg/dL Plasma Lactic Acid Tristin (0.7-2.0) mmol/L Calcium (8.4-10.2) mg/dL Magnesium (1.6-2.3) mg/dL Total Bilirubin (0.2-1.3) mg/dL AST (14-36) U/L ALT (4-34) U/L Alkaline Phosphatase (38-126) U/L Troponin I (0.000-0.034) ng/mL NT-Pro-B Natriuret Pep 1020 pg/mL Total Protein (6.3-8.2) g/dL Albumin (3.5-5.0) g/dL Urine Color Light Yellow Urine Appearance Clear (Clear) Urine pH 6.5 (5.0-8.0) Ur Specific [place] 1.031 (1.001-1.035) Urine Protein Negative (Negative) Urine Glucose (UA) 4+ H (Negative) Urine Ketones Negative (Negative) Urine Blood Negative (Negative) Urine Nitrite Negative (Negative) Urine Bilirubin Negative (Negative) Urine Urobilinogen <2.0 (<2.0) mg/dL Ur Leukocyte Esterase Negative (Negative) Influenza Type A (PCR) Not Detected (Not Detectd) Influenza Type B (PCR) Not Detected (Not Detectd) RSV (PCR) Not Detected (Not Detectd) SARS-CoV-2 (PCR) Not Detected (Not Detectd) Disposition Clinical Impression: Pleural effusion, Fever Disposition: ADMITTED IP TO THIS HOSP Condition: Fair Time of Disposition: 23:36
[2025-03-10] MEDS ORDERED: VANCOMYCIN IV PER PHARMACY 1 EACH MISC MISCELLANE PRN (01:50)
[2025-03-10] MEDS: HYDROmorphone 0.5 MG/0.5 ML SYRINGE IVP PRN (02:23)
[2025-03-10] MEDS: PIPERACILLIN-TAZOBACTAM 3.375 GM in SODIUM CHLORIDE 0.9% 100 ML IVPB ONE (02:24)
--- NOTE | 2025-03-10 02:50 | P.CNPUL ---
History of Present Illness Consult date: 03/10/25 Requesting physician: Alycia Addison Reason for consult: pleural effusion Chief complaint: Left-sided pleural effusion History of present illness: I am seeing this patient in new consultation for a recurrent left-sided pleural effusion. Patient is a 50-year-old white female with a complicated past medical history significant for coronary artery disease with previous PCI/stenting and subsequent CABG x recurrent left-sided pleural effusion with frequent thoracentesis status post left-sided VATS with talc pleurodesis and left sided Pleurx catheter placement, right-sided pleural effusion, diabetes mellitus, hypertension, carotid artery stenosis, alcohol abuse, liver disease, breast abscesses, bipolar disorder/anxiety, previous tobacco dependence, chronic marijuana use. Note that back on August 09, 2024 patient underwent off-pump CABG x 3 at our facility. She had a prolonged and complicated hospitalization. Following the procedure, she developed persistent left-sided/recurrent pleural effusion requiring multiple thoracentesis, and did undergo left thoracoscopy, talc pleurodesis, and placement of a left Pleurx catheter on 09/29/2024. She also developed a rather large pericardial effusion, requiring subxiphoid pericardial window done 10/04/2024. Patient had been draining her left-sided Pleurx catheter approximately 1 time per week and approximately 100 mL of serous fluid was removed each time. Developed some left-sided chest pain and swelling, and had her Pleurx catheter removed last Friday. Of note, patient has been seen in outpatient basis for recurrent bilateral periareolar breast abscesses by Dr. Familia Mendez, and is reportedly scheduled for breast surgery March 22. She is having purulent left nipple drainage. She returns to the emergency department yesterday afternoon with a chief complaint of left chest pain and back tenderness especially with deep breathing. She denies any difficulty in breathing. She has had fever develop over the last 24 hours. Workup in the emergency department including a chest CTA which did not show any evidence of pulmonary embolism. There was cardiomegaly with possible mild pulmonary vascular congestion and small left pleural effusion. Fluid within the left pleural fissure. No focal consolidations. Hepatocellular disease compatible with cirrhosis and evidence of portal hypertension. Bilateral nonobstructive renal calculi and previous cholecystectomy changes. She is running fevers with a Tmax of 100.7 F. CBC: WBC count 6.2, hemoglobin 11, platelets 89,000. CMP unremarkable, electrolytes WDL, creatinine 0.72, glucose 104. Lactic 1. LFTs unremarkable. Troponin less than 0.012. NT proBNP 817. Urinalysis unremarkable for infection. Viral screen negative for influenza, RSV, COVID. Patient currently being evaluated emergency department. She has just ambulated back from the restroom. Endorses generalized constitutional symptoms with severe fatigue and intermittent fevers. She is in no respiratory distress. On room air. States she has occasional cough but no significant sputum production or hemoptysis. Does endorse some left-sided back and left anterior chest pain with deep inspiration. Some tenderness surrounding the previous left Pleurx catheter site. No drainage. No recent outpatient treatment of pneumonia. Recently, on antibiotics for breast abscesses. She does have left breast nipple drainage, purulent. No significant breast tenderness or induration. Vital signs are stable. Overall nontoxic appearance. Review of Systems Constitutional: Reports chills, Reports fatigue, Reports fever, Reports sweats, Denies poor appetite, Denies weight gain, Denies weight loss Ears, nose, mouth and throat: Reports headache, Denies nasal congestion, Denies post-nasal drip, Denies sinus pain, Denies sinus pressure, Denies sore throat Cardiovascular: Reports chest pain (See HPI), Denies leg edema, Denies lightheadedness, Denies orthopnea, Denies palpitations, Denies paroxysmal nocturnal dyspnea, Denies syncope Respiratory: Reports cough, Reports pain on inspiration, Denies congestion, Denies cough with sputum, Denies hemoptysis, Denies respiratory infections, Denies wheezing Gastrointestinal: Denies abdominal pain, Denies constipation, Denies diarrhea, Denies hematochezia, Denies melena, Denies nausea, Denies vomiting Genitourinary: Denies dysuria Musculoskeletal: Denies limitation of motion Integumentary: Denies rash Neurological: Denies head injury, Denies seizures, Denies syncope Psychiatric: Reports anxiety, Reports depression, Denies suicidal ideation Past Medical History Past Medical History: Atrial Fibrillation, Coronary Artery Disease (CAD), Heart Failure, Diabetes Mellitus, GERD/Reflux, Hyperlipidemia, Hypertension, Liver Disease, Pneumonia, Syncope Additional Past Medical History / Comment(s): Hx pneumonia yrs ago. Hx kidney s tones. Diet controlled diabetic (pt denies diabetes 02/02/25). Seasonal allergies. Left internal carotid artery stenosis. Cirrhosis of liver. No menses in 4 1/2 yrs, states body does not make enough Estrogen. Recurrent pleural effusions. Pericardial effusion, bilateral breast abscesses for the past 5 years History of Any Multi-Drug Resistant Organisms: None Reported Past Surgical History: Appendectomy, Breast Surgery, Cholecystectomy, Coronary B ypass/CABG, Heart Catheterization With Stent, Orthopedic Surgery, Tubal Ligation Additional Past Surgical History / Comment(s): Right wrist carpal tunnel surgery, dental surgery- teeth removed, left breast abcess I&D X3, right breast abcess I&D X2, left ankle surgery, triple CABG 08/09/2024, multiple thoracentesis. Cardiac sents x2 and bilateral carotid stents 08/09/24. Left VATS with talc pleurodesis and placement of left-sided pleurx catheter 09/29/[address] Ortiz; subxiphoid pericardial window 10/04/2024 Past Anesthesia/Blood Transfusion Reactions: No Reported Reaction, Family History of Problems w/ Anesthesia Additional Past Anesthesia/Blood Transfusion Reaction / Comment(s): No blood transfusion to date. Mom stopped breathing during a surgery and was resuscitated. Date of Last Stent Placement:: 07/30/24 Past Psychological History: Anxiety, Bipolar, Depression Smoking Status: Former smoker Past Alcohol Use History: None Reported Past Drug Use History: None Reported - Past Family History Mother Family Medical History: Cancer Additional Family Medical History / Comment(s): schizoaffective disorder, unsure which type of cancer Father History Unknown: Yes Family Medical History: Unable to Obtain Additional Family Medical History / Comment(s): Patient did not know her father Medications and Allergies Home Medications Medication Instructions Recorded Confirmed Type Atorvastatin Calcium [Lipitor] 40 mg PO DAILY 09/15/24 02/02/25 History Gabapentin [Neurontin] 300 mg PO HS 09/23/24 02/02/25 History Aspirin 81 mg PO DAILY tab 10/01/24 02/02/25 Rx Losartan [Cozaar] 12.5 mg PO DAILY 10/03/24 02/02/25 History Ondansetron Odt [Zofran ODT] 4 mg PO Q8HR PRN #20 tab 10/14/24 02/02/25 Rx Petrolat,White/Shlomo/8-Hydroxyqu 1 gm TOPICAL TID PRN gm 10/14/24 02/02/25 Rx [Bag Metz] Metoprolol Tartrate [Lopressor] 25 mg PO BID 11/01/24 02/02/25 History Nystatin 100,000 Unit/gm Powd 1 applic TOPICAL BID PRN 30 Days 11/16/24 02/02/25 Rx [Mycostatin Powder] #10 each Omeprazole 20 mg PO DAILY 12/07/24 02/02/25 History Acetaminophen Tab [Tylenol] 650 mg PO Q6HR PRN #90 tab 12/15/24 02/02/25 Rx Benzonatate [Tessalon Perles] 100 mg PO TID PRN 12/15/24 02/02/25 History Empagliflozin [Jardiance] 10 mg PO DAILY 12/15/24 02/02/25 History Ferrous Sulfate [Iron (65 MG 325 mg PO DAILY 12/15/24 02/02/25 History Elemental)] Midodrine HCl [ProAmantine] 2.5 mg PO AC-TID 12/15/24 02/02/25 History Nitroglycerin Sl Tabs [Nitrostat] 0.4 mg SL Q5M PRN 12/15/24 02/02/25 History traMADol HCL 50 mg PO Q4-6H PRN 02/02/25 02/02/25 History Cephalexin [Keflex] 500 mg PO Q6HR #28 cap 02/14/25 Rx Cephalexin [Keflex] 500 mg PO Q6HR 5 Days #20 cap 02/19/25 Rx Allergies Allergy/AdvReac Type Severity Reaction Status Date / Time capsaicin Allergy Rash/Hives/ Verified 02/19/25 20:18 Swelling Physical Exam Vitals: Vital Signs Temp Pulse Resp BP Pulse Ox 03/09/25 22:55 98.4 F 03/09/25 22:12 69 18 105/68 95 03/09/25 18:37 100.1 F H 81 20 110/73 95 03/09/25 18:34 74 03/09/25 18:23 72 03/09/25 18:08 100.7 F H 03/09/25 17:37 20 03/09/25 16:36 99.9 F H 84 24 145/81 99 Intake and Output 03/09/25 03/09/25 03/10/25 14:59 22:59 06:59 Other: Weight 94.347 kg GENERAL EXAM: Alert, 50-year-old obese female, has just ambulated back from the bathroom, comfortable in no apparent distress. HEAD: Normocephalic and atraumatic EYES: Normal reaction of pupils, equal size. NOSE: Clear with pink turbinates. THROAT: No erythema or exudates. NECK: No masses, no JVD. CHEST: No chest wall deformity. Healing, pink, midsternal incision. Previous left Pleurx catheter site approximated, no significant drainage. Spontaneous left nipple purulent drainage. LUNGS: Equal air entry with left basilar dullness and inspiratory crackles. On room air. No conversational dyspnea or accessory muscle use.. CVS: S1 and S2 normal with soft systolic murmur, regular rhythm. No other extra heart sounds ABDOMEN: No hepatosplenomegaly, active bowel sounds, no guarding or rigidity. SPINE: No scoliosis or deformity SKIN: No rashes CENTRAL NERVOUS SYSTEM: No focal deficits, tone is normal in all 4 extremities. EXTREMITIES: There is no peripheral edema, clubbing, or cyanosis. Peripheral pulses are intact. Results - Laboratory Findings CBC and BMP: 03/09/25 17:30 03/09/25 17:30 PT/INR, D-dimer PT 12.7 sec (10.0-12.5) H 03/09/25 17:30 INR 1.2 (<1.2) H 03/09/25 17:30 D-Dimer 0.82 mg/L FEU (<0.60) H 03/09/25 17:30 Abnormal lab findings: Abnormal Labs 03/09/25 03/09/25 03/09/25 17:30 17:30 17:30 Hgb 11.1 L Hct 35.6 L MCH 25.2 L MCHC 31.2 L Plt Count 89 L PT 12.7 H INR 1.2 H D-Dimer Sodium 136 L Glucose 104 H Alkaline Phosphatase 157 H Albumin 3.4 L Urine Glucose (UA) 03/09/25 03/09/25 17:30 22:45 Hgb Hct MCH MCHC Plt Count PT INR D-Dimer 0.82 H Sodium Glucose Alkaline Phosphatase Albumin Urine Glucose (UA) 4+ H - Diagnostic Findings Chest x-ray: image reviewed CT scan - chest: image reviewed Assessment and Plan Assessment: Recurrent/chronic left-sided pleural effusion, requiring multiple previous thoracentesis, eventually undergoing left thoracoscopy, talc pleurodesis, and placement of a left Pleurx catheter on 09/29/2024. The Pleurx catheter was reportedly removed March 04. Recurrent/chronic bilateral breast abscess, with multiple previous drainage, and reportedly scheduled for bilateral resection of the nipple areolar complexes on March 22 Acute febrile illness Coronary artery disease with previous PCI/stenting and subsequent CABG x 3 norme d on August 09, 2024, followed by a prolonged and complicated hospital course. History of right-sided pleural effusion with previous thoracentesis History of small to moderate-sized pericardial effusion, with history of subxiphoid pericardial window performed 10/04/2024 History of enterocolitis Microcytic, hypochromic anemia, hemoglobin stable at 11.1 grams per deciliter Hypertension History of hyperlipidemia History of diabetes mellitus History of bilateral carotid artery stenosis, with a greater than 70% stenosis of the left carotid bifurcation and less than 50% stenosis to the right carotid bifurcation History of liver disease History of alcohol abuse Bipolar disorder/anxiety Chronic marijuana use Obesity, with a BMI of 36.8 kg/m Plan: Patient's medications, labs, and chest CTA reviewed Patient has small to moderate-sized left-sided pleural effusion. Left Pleurx catheter reportedly removed last Friday. Obtain ultrasound of the chest Ultrasound left breast and culture nipple discharge Patient started on broad-spectrum antibiotics Consult infectious disease We will continue to follow I have personally seen and examined the patient, performed the documentation and the assessment and plan as written. Number of minutes spent on the visit:20 Time with Patient: Greater than 30
[2025-03-10] MEDS: VANCOMYCIN 1,750 MG in SODIUM CHLORIDE 0.9% 500 ML 500 ML IVPB ONE (03:25)
[2025-03-10 05:09] LABS: HCT 36.1 % (37.2-46.3); HGB 10.9 g/dL (12.0-15.0); MCH 24.8 pg (27.0-32.0); MCHC 30.2 g/dL (32.0-37.0); Platelet Count 103 10*3/uL (140-440); RDW 15.8 % (11.5-14.5); WBC 4.44 10*3/uL (4.50-10.00)
[2025-03-10 05:33] LABS: ALT 24 U/L (4-34); AST 28 U/L (14-36); African American GFR (CKD) >90 (>60 ml/min/1.73 sqM); Albumin 3.3 g/dL (3.5-5.0); Alkaline Phosphatase 156 U/L (38-126); Anion Gap 11 mmol/L; Blood Urea Nitrogen 13 mg/dL (7-17); Carbon Dioxide 20 mmol/L (22-30); Chloride 105 mmol/L (98-107); Glucose 165 mg/dL (74-99); Non-African American GFR(CKD) >90 (>60 ml/min/1.73 sqM); Potassium 4.1 mmol/L (3.5-5.1); Sodium 136 mmol/L (137-145); Total Bilirubin 1.3 mg/dL (0.2-1.3); Total Protein 6.6 g/dL (6.3-8.2)
[2025-03-10 06:16] LABS: Band Neutrophils % 8 %; Lymphocytes # (M) 0.75 k/uL (1.0-4.8); Neutrophils # (M) 3.68 k/uL (1.3-7.7); Neutrophils % (M) 75 %; Nucleated Red Blood Cells 0 /100 WBC (0-0); Total Cells Counted 100
[2025-03-10 06:17] LABS: Ovalocytes Present
[2025-03-10 06:18] LABS: Large Platelets Present
[2025-03-10] MEDS: PIPERACILLIN-TAZOBACTAM 3.375 GM in SODIUM CHLORIDE 0.9% 100 ML IVPB SCH (09:11)
[2025-03-10] MEDS: MORPHINE SULFATE 4 MG/ML SYRINGE IV PRN (09:11)
[2025-03-10] MEDS: GABAPENTIN 300 MG CAP PO SCH (10:40)
[2025-03-10] MEDS: FERROUS SULFATE 325 MG TAB PO SCH (10:40)
[2025-03-10] MEDS: ATORVASTATIN 40 MG TAB PO SCH (10:40)
[2025-03-10] MEDS: METOPROLOL TARTRATE 25 MG TAB PO SCH (10:40)
[2025-03-10] MEDS: LOSARTAN 25 MG TAB PO SCH (10:40)
[2025-03-10] MEDS: PANTOPRAZOLE 40 MG TABLET PO SCH (10:40)
--- NOTE | 2025-03-10 11:21 | US ---
EXAMINATION TYPE: US chest DATE OF EXAM: 03/10/2025 COMPARISON: Chest x-ray and CTA from one day earlier CLINICAL INDICATION: Female, 50 years old with history of left pleural effusion; Patient has h/o pleu ral effusion, just got chest tube out TECHNIQUE: Grayscale imaging of the chest. Targeted ultrasound of the posterior lower Left FINDINGS: EXAM MEASUREMENTS: Left Pleural Effusion pocket size: 1.3cm to tissue, full pocket size 8.6cm, due to tissue within win nikolay, patient was not marked Left side NOT marked Pulmonologists are able to review the images in the patient?s EMR. Small to tiny left pleural effusion on images saved. IMPRESSIONS: As above. [facility], , 03/10/2025 11:19 AM
--- NOTE | 2025-03-10 11:22 | USB ---
Reason for Exam: Clinical finding. Patient History: 08/06/2019, Benign Core Biopsy on the left side. Risk Values: Carmenza 5 year model risk: 0.8%. NCI Lifetime model risk: 7.2%. Technique: Method: Targeted. Findings: The retroareolar of the left breast was scanned. Targeted subareolar and periareolar left breast for complaints of nipple abscess and green nipple discharge. No duct ectasia or solid or cystic lesion is seen. No abnormal fluid collection. Overall Assessment: Incomplete: need additional imaging evaluation, BI-RAD 0 Management: Diagnostic Mammogram of both breasts. We are not finding any routine annual screening studies. Patient should have bilateral diagnostic mammograms on an outpatient basis if an annual exam has not already been performed elsewhere. A clinical breast exam by your physician is recommended on an annual basis and results should be correlated with mammographic findings. This exam should not preclude additional follow-up of suspicious palpable abnormalities. Results were given to the patient verbally at the time of exam. [facility], , 03/10/2025 11:19 AM. Electronically signed and approved by: Jonny Davis M.D. Radiologist
[2025-03-10] MEDS ORDERED: DEXTROSE 50% SYRINGE 50 ML IVP PRN ×2 (11:34)
[2025-03-10] MEDS: INSULIN LISPRO (HumaLOG) 100 UNIT/ML 10 mL VL SQ SCH (14:13)
[2025-03-10] MEDS: MIDODRINE 5 MG TAB PO SCH (15:32)
[2025-03-10] MEDS: VANCOMYCIN 1,500 MG in SODIUM CHLORIDE 0.9% 500 ML 500 ML IVPB SCH (16:19)
--- NOTE | 2025-03-10 16:52 | P.HPIM ---
History of Present Illness H&P Date: 03/10/25 History of present illness; Patient is a 49 year old female with past medical history of atrial fibri llation, diabetes mellitus, GERD, hyperlipidemia, hypertension, CAD with CABG 08/09/2024,bilateral carotid stents 08/09/2024, left VATS with talc pleurodesis and placement also left-sided Pleurx catheter 09/29/2024, subxiphoid pericardial window 10/04/24 presents with shortness of breath and fever. Patient reports general malaise feeling since Friday when she woke up with a sinus infection and was increasingly fatigued. She began to have some shortness of breath accompanied by posterior left shoulder pain, which is not worsened by movement. Breathing worsens with deep inspiration. She states that her chest feels heavy and tender to touch. Today the patient is experiencing a fever as well as a cough. She also reports long history of bilateral breast abscesses which she follows with Dr. Fajardo for and has upcoming procedure planned with her. She endorses some breast tenderness with green-white purulence expression. She also had Pleurx catheter removed last Friday. Patient reports absence of nausea, vomiting, weakness, dizziness, headache, and dysuria. Spoke with the ER physician, patient admission was accepted by internal medicine service for treatment. REVIEW OF SYSTEMS: Pertinent positives and negatives noted in HPI. PHYSICAL EXAMINATION: Vitals reviewed GENERAL: Resting comfortably in bed. Obese. Appears older than stated age. EYES: PERRL, no scleral injection or icterus. No vision loss HENT: Normocephalic, atraumatic, hearing grossly intact, moist mucous membranes, teeth removed. NECK: No tracheal deviation, full range of motion. CARDIOVASCULAR: S1 and S2 present. No murmurs, rubs, or gallops. PULMONARY: Chest is clear to auscultation, no wheezing, rhonchi, or crackles. ABDOMEN: Soft, nontender, nondistended. No palpable organomegaly. EXTREMITIES: No apparent cyanosis, clubbing. No pedal edema. NEUROLOGICAL: Alert and oriented. Gross neurological examination with no apparent focal deficits. SKIN: Erythema of right breast in 2 o'clock position. Expression of green/white purulent drainage in left breast with tenderness. ER FINDINGS: Labs significant for WBC 4.4, hemoglobin 10.9, platelets 103, sodium 136, bicarb 20, glucose 165, ALP 156, troponin negative, BNP 817, UA significant for glucose 4+ EKG independently interpreted showed sinus rhythm heart rate of 69, right axis deviation, QTc 357, right axis deviation, no ST segment elevation or depression seen, nonspecific T wave abnormalities. Chest x-ray done independently interpreted showed no acute cardiopulmonary process. CTA chest independently interpreted showed no evidence of pulmonary embolism. Cardiomegaly with pulmonary vascular congestion and small left-sided pleural effusion. Hepatocellular disease compatible with cirrhosis evidence of portal hypertension. Ultrasound left breast findings of no duct ectasia for solid or cystic lesion seen, no abnormal fluid collection Assessment and Plan: In summary, patient is a 49 year old female with past medical history of atrial fibrillation, diabetes mellitus, GERD, hyperlipidemia, hypertension, CAD with CABG 08/09/2024,bilateral carotid stents 08/09/2024, left VATS with talc pleurodesis and placement also left-sided Pleurx catheter 09/29/2024, subxiphoid pericardial window 10/04/24 presents with shortness of breath and fever. #Sepsis likely due to breast infection #Acute on chronic bilateral breast abscesses with purulent drainage -Peak temperature 100.7 Fahrenheit, respiratory rate 24 Ultrasound left breast findings of no duct ectasia for solid or cystic lesion seen, no abnormal fluid collection -Begin Zosyn IV 3.375 g every 8 hours and IV vancomycin dosing per pharmacy Begin morphine 4 mg IV every 4 hours as needed for pain Blood and breast purulence cultures pending Surgery consulted ID consulted #Recurrent/chronic left-sided pleural effusion CT chest with small to moderate left-sided pleural effusion No intervention from pulmonology at this time #Diabetes mellitus, type 2 Holding oral medications Begin Accu-Cheks and low-dose sliding scale, monitor for hypoglycemia Chronic Medical Conditions Atrial fibrillation Diabetes mellitus GERD Hyperlipidemia Hypertension CAD with CABG 08/09/2024 Bilateral carotid stents 08/09/2024 Left VATS with talc pleurodesis and placement also left-sided Pleurx catheter 09/29/2024 Subxiphoid pericardial window 10/04/24 - resume home medications DVT ppx: Subq Lovenox 40 meq daily Code status: Full code F: P.O. E: Replete as needed N: Heart healthy diet A: Ambulatory Anticipated discharge place: Pending clinical course Anticipated discharge time: Pending clinical course Dictation was produced using [employer] dictation software. Please excuse any grammatical, word or spelling errors. Past Medical History Past Medical History: Atrial Fibrillation, Coronary Artery Disease (CAD), Heart Failure, Diabetes Mellitus, GERD/Reflux, Hyperlipidemia, Hypertension, Liver Disease, Pneumonia, Syncope Additional Past Medical History / Comment(s): Hx pneumonia yrs ago. Hx kidney stones. Diet controlled diabetic (pt denies diabetes 02/02/25). Seasonal allergies. Left internal carotid artery stenosis. Cirrhosis of liver. No menses in 4 1/2 yrs, states body does not make enough Estrogen. Recurrent pleural effusions. Pericardial effusion, bilateral breast abscesses for the past 5 years History of Any Multi-Drug Resistant Organisms: None Reported Past Surgical History: Appendectomy, Breast Surgery, Cholecystectomy, Coronary Bypass/CABG, Heart Catheterization With Stent, Orthopedic Surgery, Tubal Ligation Additional Past Surgical History / Comment(s): Right wrist carpal tunnel surgery, dental surgery- teeth removed, left breast abcess I&D X3, right breast abcess I&D X2, left ankle surgery, triple CABG 08/09/2024, multiple thoracentesis. Cardiac sents x2 and bilateral carotid stents 08/09/24. Left VATS with talc pleurodesis and placement of left-sided pleurx catheter 09/29/[address] Ortiz; subxiphoid pericardial window 10/04/2024 Past Anesthesia/Blood Transfusion Reactions: No Reported Reaction, Family Histo ry of Problems w/ Anesthesia Additional Past Anesthesia/Blood Transfusion Reaction / Comment(s): No blood transfusion to date. Mom stopped breathing during a surgery and was r esuscitated. Date of Last Stent Placement:: 07/30/24 Past Psychological History: Anxiety, Bipolar, Depression Smoking Status: Former smoker Past Alcohol Use History: None Reported Past Drug Use History: None Reported - Past Family History Mother Family Medical History: Cancer Additional Family Medical History / Comment(s): schizoaffective disorder, unsure which type of cancer Father History Unknown: Yes Family Medical History: Unable to Obtain Additional Family Medical History / Comment(s): Patient did not know her father Medications and Allergies Home Medications Medication Instructions Recorded Confirmed Type Atorvastatin Calcium [Lipitor] 40 mg PO DAILY 09/15/24 03/10/25 History Gabapentin [Neurontin] 300 mg PO BID 09/23/24 03/10/25 History Aspirin 81 mg PO DAILY tab 10/01/24 03/10/25 Rx Losartan [Cozaar] 12.5 mg PO DAILY 10/03/24 03/10/25 History Metoprolol Tartrate [Lopressor] 25 mg PO BID 11/01/24 03/10/25 History Omeprazole 20 mg PO DAILY 12/07/24 03/10/25 History Acetaminophen Tab [Tylenol] 650 mg PO Q6HR PRN #90 tab 12/15/24 03/10/25 Rx Empagliflozin [Jardiance] 10 mg PO DAILY 12/15/24 03/10/25 History Ferrous Sulfate [Iron (65 MG 325 mg PO DAILY 12/15/24 03/10/25 History Elemental)] Midodrine HCl [ProAmantine] 2.5 mg PO AC-TID 12/15/24 03/10/25 History Nitroglycerin Sl Tabs [Nitrostat] 0.4 mg SL Q5M PRN 12/15/24 03/10/25 History traMADol HCL 50 mg PO Q4-6H PRN 02/02/25 03/10/25 History Ergocalciferol [Vitamin D2 (1250 1,250 mcg PO WEEKLY 03/10/25 03/10/25 History Mcg = 81747 Iu)] Allergies Allergy/AdvReac Type Severity Reaction Status Date / Time capsaicin Allergy Rash/Hives/ Verified 03/10/25 06:33 Swelling Physical Exam Vitals: Vital Signs Temp Pulse Pulse Resp BP BP Pulse Ox 03/10/25 07:30 97.4 F L 61 16 111/67 98 03/10/25 06:21 98.3 F 63 19 125/74 95 03/10/25 02:31 98.0 F 63 17 107/71 95 03/09/25 22:55 98.4 F 03/09/25 22:12 69 18 105/68 95 03/09/25 18:37 100.1 F H 81 20 110/73 95 03/09/25 18:34 74 03/09/25 18:23 72 03/09/25 18:08 100.7 F H 03/09/25 17:37 20 03/09/25 16:36 99.9 F H 84 24 145/81 99 Intake and Output 03/09/25 03/10/25 03/10/25 22:59 06:59 14:59 Other: Weight 94.347 kg Results CBC & Chem 7: 03/10/25 04:19 03/10/25 04:19 Labs: Abnormal Lab Results - Last 24 Hours (Table) 03/09/25 03/09/25 03/09/25 Range/Units 17:30 17:30 17:30 WBC (4.50-10.00) 10*3/uL Hgb 11.1 L (12.0-15.0) g/dL Hct 35.6 L (37.2-46.3) % MCH 25.2 L (27.0-32.0) pg MCHC 31.2 L (32.0-37.0) g/dL Plt Count 89 L (140-440) 10*3/uL Lymphocytes # (Manual) (1.0-4.8) k/uL PT 12.7 H (10.0-12.5) sec INR 1.2 H (<1.2) D-Dimer (<0.60) mg/L FEU Sodium 136 L (137-145) mmol/L Carbon Dioxide (22-30) mmol/L Glucose 104 H (74-99) mg/dL Alkaline Phosphatase 157 H (38-126) U/L Albumin 3.4 L (3.5-5.0) g/dL Urine Glucose (UA) (Negative) 03/09/25 03/09/25 03/10/25 Range/Units 17:30 22:45 04:19 WBC 4.44 L (4.50-10.00) 10*3/uL Hgb 10.9 L (12.0-15.0) g/dL Hct 36.1 L (37.2-46.3) % MCH 24.8 L (27.0-32.0) pg MCHC 30.2 L (32.0-37.0) g/dL Plt Count 103 L (140-440) 10*3/uL Lymphocytes # (Manual) 0.75 L (1.0-4.8) k/uL PT (10.0-12.5) sec INR (<1.2) D-Dimer 0.82 H (<0.60) mg/L FEU Sodium (137-145) mmol/L Carbon Dioxide (22-30) mmol/L Glucose (74-99) mg/dL Alkaline Phosphatase (38-126) U/L Albumin (3.5-5.0) g/dL Urine Glucose (UA) 4+ H (Negative) 03/10/25 Range/Units 04:19 WBC (4.50-10.00) 10*3/uL Hgb (12.0-15.0) g/dL Hct (37.2-46.3) % MCH (27.0-32.0) pg MCHC (32.0-37.0) g/dL Plt Count (140-440) 10*3/uL Lymphocytes # (Manual) (1.0-4.8) k/uL PT (10.0-12.5) sec INR (<1.2) D-Dimer (<0.60) mg/L FEU Sodium 136 L (137-145) mmol/L Carbon Dioxide 20 L (22-30) mmol/L Glucose 165 H (74-99) mg/dL Alkaline Phosphatase 156 H (38-126) U/L Albumin 3.3 L (3.5-5.0) g/dL Urine Glucose (UA) (Negative)
[2025-03-10] MEDS: AMPICILLIN-SULBACTAM 3 GM in SODIUM CHLORIDE 0.9% 100 ML IVPB SCH (17:20)
--- NOTE | 2025-03-10 18:09 | P.GSCN ---
History of Present Illness Consult date: 03/10/25 Reason for Consult: Breast abscess History of present illness: Yovana is a 50-year-old female seen in consultation regarding chronic rene ateral breast abscesses. She was last seen in the breast clinic in January 2025. She has had multiple breast abscesses drained in the past. She has had at least 4 drainages on the right breast and 3 on the left. On the left side she was actually admitted to the hospital for IV antibiotics in 2019. Her most recent drainage of the abscesses was in May 2024. She has also had open heart surgery on August 09, 2024 and had 2 stents and then triple bypass. She also has carotid stents. She had a pleurodesis in August of the left chest. A catheter was left in the left chest for fluid accumulation. The catheter was recently removed the last week. Following removal of the catheter she developed shortness of breath and pain in the left chest. She presented to the emergency room with fevers and left chest discomfort. Ultrasound of the chest as well as CT scan of the chest revealed mi nimal pleural fluid. Was concerned that her fevers were related to breast abscesses. The patient has minimal discomfort in her breast and the drainage from the left breast has not changed. She has since become afebrile. White count 6.2. Ultrasound of the left breast retroareolar area does not reveal any specific fluid collection. Nicotine: Smokes 1 pack/day for 30 years stopped 2 years ago Marijuana daily control pills used in the remote past Family history: Mother: Cervical cancer Maternal great aunt: Breast cancer Hormonal history: Menarche: 15 G3, P3 did not breast-feed first at 26 Last menstrual period 2019 Hormones negative Surgical history: Multiple breast abscesses drained in the past Cervical conization Appendectomy Cholecystectomy Carpal tunnel right hand Edentulous/teeth removed Coronary artery bypass graft Carotid stents Pleur-evac catheter Medical history: Hypertension Diabetes Bipolar Takes aspirin Social history: Nicotine: Stopped smoking 2 years ago Alcohol: Negative Drugs: Marijuana in the past Review of Systems - Constitutional Reports fever - EENT Eyes: denies blurred vision Ears: bilateral: tinnitus - Breasts bilateral: as per HPI - Cardiovascular Reports as per HPI - Respiratory Reports as per HPI - Gastrointestinal Reports as per HPI - Genitourinary Genitourinary: Denies dysuria, Denies hematuria - Musculoskeletal Reports as per HPI - Integumentary Reports as per HPI - Neurological Reports syncope, Denies headaches - Psychiatric Reports as per HPI - Endocrine Endocrine Comment(s): diabetic - Hematologic/Lymphatic Reports as per HPI - Allergic/Immunologic Reports as per HPI Past Medical History Past Medical History: Atrial Fibrillation, Coronary Artery Disease (CAD), Heart Failure, Diabetes Mellitus, GERD/Reflux, Hyperlipidemia, Hypertension, Liver Disease, Pneumonia, Syncope Additional Past Medical History / Comment(s): Hx pneumonia yrs ago. Hx kidney stones. Diet controlled diabetic (pt denies diabetes 02/02/25). Seasonal allergies. Left internal carotid artery stenosis. Cirrhosis of liver. No men ses in 4 1/2 yrs, states body does not make enough Estrogen. Recurrent pleural effusions. Pericardial effusion, bilateral breast abscesses for the past 5 years History of Any Multi-Drug Resistant Organisms: None Reported Past Surgical History: Appendectomy, Breast Surgery, Cholecystectomy, Coronary Bypass/CABG, Heart Catheterization With Stent, Orthopedic Surgery, Tubal Ligation Additional Past Surgical History / Comment(s): Right wrist carpal tunnel surgery, dental surgery- teeth removed, left breast abcess I&D X3, right breast abcess I&D X2, left ankle surgery, triple CABG 08/09/2024, multiple thoracentesis. Cardiac sents x2 and bilateral carotid stents 08/09/24. Left VATS with talc pleurodesis and placement of left-sided pleurx catheter 09/29/[address] Ortiz; subxiphoid pericardial window 10/04/2024 Past Anesthesia/Blood Transfusion Reactions: No Reported Reaction, Family History of Problems w/ Anesthesia Additional Past Anesthesia/Blood Transfusion Reaction / Comm: No blood transfusion to date. Mom stopped breathing during a surgery and was resuscitated. Date of Last Stent Placement:: 07/30/24 Past Psychological History: Anxiety, Bipolar, Depression Smoking Status: Former smoker Past Alcohol Use History: None Reported Past Drug Use History: None Reported - Past Family History Mother Family Medical History: Cancer Additional Family Medical History / Comment(s): schizoaffective disorder, unsure which type of cancer Father History Unknown: Yes Family Medical History: Unable to Obtain Additional Family Medical History / Comment(s): Patient did not know her father Medications and Allergies Home Medications Medication Instructions Recorded Confirmed Type Atorvastatin Calcium [Lipitor] 40 mg PO DAILY 09/15/24 03/10/25 History Gabapentin [Neurontin] 300 mg PO BID 09/23/24 03/10/25 History Aspirin 81 mg PO DAILY tab 10/01/24 03/10/25 Rx Losartan [Cozaar] 12.5 mg PO DAILY 10/03/24 03/10/25 History Metoprolol Tartrate [Lopressor] 25 mg PO BID 11/01/24 03/10/25 History Omeprazole 20 mg PO DAILY 12/07/24 03/10/25 History Acetaminophen Tab [Tylenol] 650 mg PO Q6HR PRN #90 tab 12/15/24 03/10/25 Rx Empagliflozin [Jardiance] 10 mg PO DAILY 12/15/24 03/10/25 History Ferrous Sulfate [Iron (65 MG 325 mg PO DAILY 12/15/24 03/10/25 History Elemental)] Midodrine HCl [ProAmantine] 2.5 mg PO AC-TID 12/15/24 03/10/25 History Nitroglycerin Sl Tabs [Nitrostat] 0.4 mg SL Q5M PRN 12/15/24 03/10/25 History traMADol HCL 50 mg PO Q4-6H PRN 02/02/25 03/10/25 History Ergocalciferol [Vitamin D2 (1250 1,250 mcg PO WEEKLY 03/10/25 03/10/25 History Mcg = [id number] Iu)] Allergies Allergy/AdvReac Type Severity Reaction Status Date / Time capsaicin Allergy Rash/Hives/ Verified 03/10/25 06:33 Swelling Surgical - Exam Vital Signs Temp Pulse Resp BP Pulse Ox 99.9 F H 84 24 145/81 99 03/09/25 16:36 03/09/25 16:36 03/09/25 16:36 03/09/25 16:36 03/09/25 16:36 - General no distress - Eyes normal ocular movement - ENT no hearing loss - Neck trachea midline - Respiratory normal respiratory effort, clear to auscultation - Cardiovascular Rhythm: regular Heart Sounds: normal: S1, S2 - Abdomen Abdomen: soft, non tender, no guarding, no rigid, no rebound - Integumentary no rash, no abnormal pigmentation - Psychiatric oriented to time, oriented to person, oriented to place Breast Examination: 3 XL Inspection: No swelling of the breast Palpation: Right breast Multi positional exam no specific area of swelling or pain in the right breast, no dominant masses or nodules of concern Right axilla: No adenopathy of concern Left breast: Multi positional exam some fullness at the nipple area there is no discharge when I am examining her at this time no discrete dominant masses or nodules of concern, no area of particular increased tenderness Left axilla, no axillary adenopathy of concern Results Ultrasound of the retroareolar area of the left breast does not reveal any discr ete abscesses - Labs 03/10/25 04:19 03/10/25 04:19 Abnormal Lab Results - Last 24 Hours (Table) 03/09/25 03/09/25 03/09/25 Range/Units 17:30 17:30 17:30 WBC (4.50-10.00) 10*3/uL Hgb 11.1 L (12.0-15.0) g/dL Hct 35.6 L (37.2-46.3) % MCH 25.2 L (27.0-32.0) pg MCHC 31.2 L (32.0-37.0) g/dL Plt Count 89 L (140-440) 10*3/uL Lymphocytes # (Manual) (1.0-4.8) k/uL PT 12.7 H (10.0-12.5) sec INR 1.2 H (<1.2) D-Dimer (<0.60) mg/L FEU Sodium 136 L (137-145) mmol/L Carbon Dioxide (22-30) mmol/L Glucose 104 H (74-99) mg/dL Alkaline Phosphatase 157 H (38-126) U/L Albumin 3.4 L (3.5-5.0) g/dL Urine Glucose (UA) (Negative) 03/09/25 03/09/25 03/10/25 Range/Units 17:30 22:45 04:19 WBC 4.44 L (4.50-10.00) 10*3/uL Hgb 10.9 L (12.0-15.0) g/dL Hct 36.1 L (37.2-46.3) % MCH 24.8 L (27.0-32.0) pg MCHC 30.2 L (32.0-37.0) g/dL Plt Count 103 L (140-440) 10*3/uL Lymphocytes # (Manual) 0.75 L (1.0-4.8) k/uL PT (10.0-12.5) sec INR (<1.2) D-Dimer 0.82 H (<0.60) mg/L FEU Sodium (137-145) mmol/L Carbon Dioxide (22-30) mmol/L Glucose (74-99) mg/dL Alkaline Phosphatase (38-126) U/L Albumin (3.5-5.0) g/dL Urine Glucose (UA) 4+ H (Negative) 03/10/25 Range/Units 04:19 WBC (4.50-10.00) 10*3/uL Hgb (12.0-15.0) g/dL Hct (37.2-46.3) % MCH (27.0-32.0) pg MCHC (32.0-37.0) g/dL Plt Count (140-440) 10*3/uL Lymphocytes # (Manual) (1.0-4.8) k/uL PT (10.0-12.5) sec INR (<1.2) D-Dimer (<0.60) mg/L FEU Sodium 136 L (137-145) mmol/L Carbon Dioxide 20 L (22-30) mmol/L Glucose 165 H (74-99) mg/dL Alkaline Phosphatase 156 H (38-126) U/L Albumin 3.3 L (3.5-5.0) g/dL Urine Glucose (UA) (Negative) Microbiology - Last 24 Hours (Table) 03/10/25 01:30 Gram Stain - Preliminary Breast - Left Diabetes panel 03/09/25 03/10/25 Range/Units 17:30 04:19 Sodium 136 L 136 L (137-145) mmol/L Potassium 4.1 4.1 (3.5-5.1) mmol/L Chloride 105 105 (98-107) mmol/L Carbon Dioxide 27 20 L (22-30) mmol/L BUN 11 13 (7-17) mg/dL Creatinine 0.72 0.66 (0.52-1.04) mg/dL Glucose 104 H 165 H (74-99) mg/dL Calcium 8.7 9.0 (8.4-10.2) mg/dL AST 34 28 (14-36) U/L ALT 26 24 (4-34) U/L Alkaline Phosphatase 157 H 156 H (38-126) U/L Total Protein 6.6 6.6 (6.3-8.2) g/dL Albumin 3.4 L 3.3 L (3.5-5.0) g/dL Calcium panel 03/09/25 03/10/25 Range/Units 17:30 04:19 Calcium 8.7 9.0 (8.4-10.2) mg/dL Albumin 3.4 L 3.3 L (3.5-5.0) g/dL Pituitary panel 03/09/25 03/10/25 Range/Units 17:30 04:19 Sodium 136 L 136 L (137-145) mmol/L Potassium 4.1 4.1 (3.5-5.1) mmol/L Chloride 105 105 (98-107) mmol/L Carbon Dioxide 27 20 L (22-30) mmol/L BUN 11 13 (7-17) mg/dL Creatinine 0.72 0.66 (0.52-1.04) mg/dL Glucose 104 H 165 H (74-99) mg/dL Calcium 8.7 9.0 (8.4-10.2) mg/dL Adrenal panel 03/09/25 03/10/25 Range/Units 17:30 04:19 Sodium 136 L 136 L (137-145) mmol/L Potassium 4.1 4.1 (3.5-5.1) mmol/L Chloride 105 105 (98-107) mmol/L Carbon Dioxide 27 20 L (22-30) mmol/L BUN 11 13 (7-17) mg/dL Creatinine 0.72 0.66 (0.52-1.04) mg/dL Glucose 104 H 165 H (74-99) mg/dL Calcium 8.7 9.0 (8.4-10.2) mg/dL Total Bilirubin 1.2 1.3 (0.2-1.3) mg/dL AST 34 28 (14-36) U/L ALT 26 24 (4-34) U/L Alkaline Phosphatase 157 H 156 H (38-126) U/L Total Protein 6.6 6.6 (6.3-8.2) g/dL Albumin 3.4 L 3.3 L (3.5-5.0) g/dL Assessment and Plan Assessment: Impression: Chronic left sided pleural effusion requiring multiple previous thoracentesis eventually undergoing left thoracoscopy/talc pleurodesis/placement of left pleural cath on 09-29-2024 which was removed on 03 04 25 History of recurrent bilateral breast abscesses with no change in the symptoms of these recently Acute febrile illness Coronary artery disease with PCI stenting and subsequent CABG x 3 followed by prolonged and complicated hospital course History of right sided pleural effusion in the past History of small to moderate-sized pericardial effusion with history of subxiphoid pericardial window performed on 10-04-2024 History of enterocolitis Diabetes Liver disease Bipolar disorder Chronic marijuana use Obesity BMI 36.8 Plan: Nipple discharge cultured await results however this does not appear to be the cause of the patient's febrile illness; due to abscess on examination, and recent ultrasound does not reveal acute abscess Consult infectious disease await their report Will follow as needed I would be hesitant to do any operative intervention on the breast until we de termine the source of her recent febrile illness
--- NOTE | 2025-03-10 23:18 | P.CONS ---
History of Present Illness - Reason for Consult Consult date: 03/10/25 Purulent nipple drainage Requesting physician: Samir Arciniega - Chief Complaint Fever and chills x 1 day - History of Present Illness Patient is a 50-year-old female with a past medical history significant for Atrial Fibrillation, Coronary Artery Disease (CAD), Heart Failure, Diabetes Mellitus, GERD/Reflux, Hyperlipidemia, Hypertension, Liver Disease, Pneumonia, Syncope and this patient has been dealing with drainage from bilateral nipple for many years and the patient has multiple breast abscesses drained in the past apparently for drainage from the right and 3 drainage on the left breast patient is now presenting to the hospital for evaluation of incre asing shortness of breath as well as fever and not feeling well in this patient symptom apparently has been getting worse for the last few days patient is also complaining of drainage from bilateral nipple area that the pain has been getting worse over the last few days and associated pain to bilateral breast daily mostly to the leaking to show moderate intensity on presentation to the hospital the patient was febrile with a temperature of 100.7 degrees for night patient was nontachycardic or hypotensive not hypoxic no need for supplemental oxygen patient did have a white count of 6.25 creatinine 0.72 electrolytes has been normal liver enzymes are normal UA has been negative influenza RSV COVID testing has been negative patient did have a chest x-ray no acute cardiopulmonary disease process CT angiogram of the chest did not show any PE there was evidence of effusion and cholecystectomy changes patient has been started on vancomycin and Zosyn infectious disease was consulted for further management of antibiotic therapy Review of Systems Positive point and negatives has been mentioned in the HPI, complete review of systems was performed and all other systems are negative Past Medical History Past Medical History: Atrial Fibrillation, Coronary Artery Disease (CAD), Heart Failure, Diabetes Mellitus, GERD/Reflux, Hyperlipidemia, Hypertension, Liver Disease, Pneumonia, Syncope Additional Past Medical History / Comment(s): Hx pneumonia yrs ago. Hx kidney stones. Diet controlled diabetic (pt denies diabetes 02/02/25). Seasonal allergies. Left internal carotid artery stenosis. Cirrhosis of liver. No menses in 4 1/2 yrs, states body does not make enough Estrogen. Recurrent pleural effusions. Pericardial effusion, bilateral breast abscesses for the past 5 years History of Any Multi-Drug Resistant Organisms: None Reported Past Surgical History: Appendectomy, Breast Surgery, Cholecystectomy, Coronary Bypass/CABG, Heart Catheterization With Stent, Orthopedic Surgery, Tubal Ligation Additional Past Surgical History / Comment(s): Right wrist carpal tunnel surgery, dental surgery- teeth removed, left breast abcess I&D X3, right breast abcess I&D X2, left ankle surgery, triple CABG 08/09/2024, multiple thoracentesis. Cardiac sents x2 and bilateral carotid stents 08/09/24. Left VATS with talc pleurodesis and placement of left-sided pleurx catheter 09/29/[address] Ortiz; subxiphoid pericardial window 10/04/2024 Past Anesthesia/Blood Transfusion Reactions: No Reported Reaction, Family History of Problems w/ Anesthesia Additional Past Anesthesia/Blood Transfusion Reaction / Comm: No blood transfusion to date. Mom stopped breathing during a surgery and was r esuscitated. Date of Last Stent Placement:: 07/30/24 Past Psychological History: Anxiety, Bipolar, Depression Smoking Status: Former smoker Past Alcohol Use History: None Reported Past Drug Use History: None Reported - Past Family History Mother Family Medical History: Cancer Additional Family Medical History / Comment(s): schizoaffective disorder, unsure which type of cancer Father History Unknown: Yes Family Medical History: Unable to Obtain Additional Family Medical History / Comment(s): Patient did not know her father Medications and Allergies Home Medications Medication Instructions Recorded Confirmed Type Atorvastatin Calcium [Lipitor] 40 mg PO DAILY 09/15/24 03/10/25 History Gabapentin [Neurontin] 300 mg PO BID 09/23/24 03/10/25 History Aspirin 81 mg PO DAILY tab 10/01/24 03/10/25 Rx Losartan [Cozaar] 12.5 mg PO DAILY 10/03/24 03/10/25 History Metoprolol Tartrate [Lopressor] 25 mg PO BID 11/01/24 03/10/25 History Omeprazole 20 mg PO DAILY 12/07/24 03/10/25 History Acetaminophen Tab [Tylenol] 650 mg PO Q6HR PRN #90 tab 12/15/24 03/10/25 Rx Empagliflozin [Jardiance] 10 mg PO DAILY 12/15/24 03/10/25 History Ferrous Sulfate [Iron (65 MG 325 mg PO DAILY 12/15/24 03/10/25 History Elemental)] Midodrine HCl [ProAmantine] 2.5 mg PO AC-TID 12/15/24 03/10/25 History Nitroglycerin Sl Tabs [Nitrostat] 0.4 mg SL Q5M PRN 12/15/24 03/10/25 History traMADol HCL 50 mg PO Q4-6H PRN 02/02/25 03/10/25 History Ergocalciferol [Vitamin D2 (1250 1,250 mcg PO WEEKLY 03/10/25 03/10/25 History Mcg = 50232 Iu)] Allergies Allergy/AdvReac Type Severity Reaction Status Date / Time capsaicin Allergy Rash/Hives/ Verified 03/10/25 06:33 Swelling Physical Exam Vitals: Vital Signs Temp Pulse Pulse Resp BP BP Pulse Ox 03/10/25 07:30 97.4 F L 61 16 111/67 98 03/10/25 06:21 98.3 F 63 19 125/74 95 03/10/25 02:31 98.0 F 63 17 107/71 95 03/09/25 22:55 98.4 F 03/09/25 22:12 69 18 105/68 95 03/09/25 18:37 100.1 F H 81 20 110/73 95 03/09/25 18:34 74 03/09/25 18:23 72 03/09/25 18:08 100.7 F H 03/09/25 17:37 20 03/09/25 16:36 99.9 F H 84 24 145/81 99 Intake and Output 03/09/25 03/10/25 03/10/25 22:59 06:59 14:59 Intake Total 118 Balance 118 Intake: Oral 118 Other: Weight 94.347 kg 94.347 kg GENERAL DESCRIPTION: Middle-age female lying in bed, no distress. No tachypnea or accessory muscle of respiration use. HEENT: Shows Pallor , no scleral icterus. Oral mucous membrane is dry. No pharyngeal erythema or thrush NECK: Trachea central, no thyromegaly. LUNGS: Unlabored breathing. Clear to auscultation anteriorly. No wheeze or crackle. HEART: S1, S2, regular rate and rhythm. No loud murmur ABDOMEN: Soft, no tenderness , guarding or rigidity, no organomegaly EXTREMITIES: No edema of feet. SKIN: No rash, no masses palpable. Bilateral breasts examined in the presence of the nurse and have significant swelling redness some tenderness but no drainage was noticed NEUROLOGICAL: The patient is awake, alert, oriented x3, mood and affect normal. Results CBC & Chem 7: 03/10/25 04:19 03/10/25 04:19 Labs: Abnormal Lab Results - Last 24 Hours (Table) 03/09/25 03/09/25 03/09/25 Range/Units 17:30 17:30 17:30 WBC (4.50-10.00) 10*3/uL Hgb 11.1 L (12.0-15.0) g/dL Hct 35.6 L (37.2-46.3) % MCH 25.2 L (27.0-32.0) pg MCHC 31.2 L (32.0-37.0) g/dL Plt Count 89 L (140-440) 10*3/uL Lymphocytes # (Manual) (1.0-4.8) k/uL PT 12.7 H (10.0-12.5) sec INR 1.2 H (<1.2) D-Dimer (<0.60) mg/L FEU Sodium 136 L (137-145) mmol/L Carbon Dioxide (22-30) mmol/L Glucose 104 H (74-99) mg/dL Alkaline Phosphatase 157 H (38-126) U/L Albumin 3.4 L (3.5-5.0) g/dL Urine Glucose (UA) (Negative) 03/09/25 03/09/25 03/10/25 Range/Units 17:30 22:45 04:19 WBC 4.44 L (4.50-10.00) 10*3/uL Hgb 10.9 L (12.0-15.0) g/dL Hct 36.1 L (37.2-46.3) % MCH 24.8 L (27.0-32.0) pg MCHC 30.2 L (32.0-37.0) g/dL Plt Count 103 L (140-440) 10*3/uL Lymphocytes # (Manual) 0.75 L (1.0-4.8) k/uL PT (10.0-12.5) sec INR (<1.2) D-Dimer 0.82 H (<0.60) mg/L FEU Sodium (137-145) mmol/L Carbon Dioxide (22-30) mmol/L Glucose (74-99) mg/dL Alkaline Phosphatase (38-126) U/L Albumin (3.5-5.0) g/dL Urine Glucose (UA) 4+ H (Negative) 03/10/25 Range/Units 04:19 WBC (4.50-10.00) 10*3/uL Hgb (12.0-15.0) g/dL Hct (37.2-46.3) % MCH (27.0-32.0) pg MCHC (32.0-37.0) g/dL Plt Count (140-440) 10*3/uL Lymphocytes # (Manual) (1.0-4.8) k/uL PT (10.0-12.5) sec INR (<1.2) D-Dimer (<0.60) mg/L FEU Sodium 136 L (137-145) mmol/L Carbon Dioxide 20 L (22-30) mmol/L Glucose 165 H (74-99) mg/dL Alkaline Phosphatase 156 H (38-126) U/L Albumin 3.3 L (3.5-5.0) g/dL Urine Glucose (UA) (Negative) Assessment and Plan (1) Fever Current Visit: Yes Status: Acute Code(s): R50.9 - FEVER, UNSPECIFIED SNOMED Code(s): 633687068 (2) Breast abscess Current Visit: No Status: Acute Code(s): N61.1 - ABSCESS OF THE BREAST AND NIPPLE SNOMED Code(s): 79812231 Plan: 1patient presented to hospital with not feeling well she also have fever and some chills and noticed to have some purulent drainage from the nipple which has been cultured in this patient who did have a history of recurrent breast abscesses requiring multiple drainage and concern for possible recurrent breast abscess with a likely theology is currently without obvious focus of infection in this patient with negative UA CT did not show any evidence of pneumonia no evidence of any lower extremity cellulitis or joint swelling 2-await surgical evaluation for possible drainage of the abscess and deep culture 3-will treat with vancomycin pharmacy to dose however switch Zosyn to Unasyn to decrease risk of nephrotoxicity We will follow on clinical condition and cultures to further adjust medication if needed Thank you for this consultation we will follow the patient along with you Dictation was produced using dragon dictation software. please excuse any grammatical, word or spelling errors. Time with Patient: Greater than 30
[2025-03-11 06:00] LABS: African American GFR (CKD) >90 (>60 ml/min/1.73 sqM); Anion Gap 5 mmol/L; Blood Urea Nitrogen 17 mg/dL (7-17); Calcium 8.4 mg/dL (8.4-10.2); Carbon Dioxide 23 mmol/L (22-30); Chloride 109 mmol/L (98-107); Glucose 120 mg/dL (74-99); Non-African American GFR(CKD) >90 (>60 ml/min/1.73 sqM); Sodium 137 mmol/L (137-145)
[2025-03-11] MEDS: ENOXAPARIN 40 MG/0.4 ML SYRINGE SQ SCH (08:46)
[2025-03-11] MEDS: ASPIRIN 81 MG PO SCH (08:46)
[2025-03-11 09:04] LABS: Basophils # (A) 0.04 X 10*3/uL (0.00-0.10); Basophils % (A) 0.6 %; Elliptocytes 2+ (None Seen); Eosinophils # (A) 0.18 X 10*3/uL (0.04-0.35); Eosinophils % (A) 2.9 %; HCT 31.6 % (37.2-46.3); HGB 9.3 g/dL (12.0-15.0); Lymphocytes # (A) 1.08 X 10*3/uL (0.90-5.00); Lymphocytes % (A) 17.4 %; MCH 25.1 pg (27.0-32.0); MCHC 29.4 g/dL (32.0-37.0); MCV 85.2 FL (80.0-97.0); Monocytes # (A) 0.67 X 10*3/uL (0.20-1.00); Monocytes % (A) 10.8 %; NRBC Per 100 WBC 0 X 10*3/uL (0.00-0.01); Platelet Count 74 X 10*3/uL (140-440); RBC 3.71 X 10*6/uL (4.10-5.20); RDW 16.4 % (11.5-14.5); WBC 6.19 X 10*3/uL (4.50-10.00)
--- NOTE | 2025-03-11 12:56 | P.PN ---
Subjective Progress Note Date: 03/11/25 I am seeing this patient in new consultation for a recurrent left-sided pleural effusion. Patient is a 50-year-old white female with a complicated past medical history significant for coronary artery disease with previous PCI/stenting and subsequent CABG x recurrent left-sided pleural effusion with frequent thoracentesis status post left-sided VATS with talc pleurodesis and left sided Pleurx catheter placement, right-sided pleural effusion, diabetes mellitus, hypertension, carotid artery stenosis, alcohol abuse, liver disease, breast abscesses, bipolar disorder/anxiety, previous tobacco dependence, chronic marijuana use. Note that back on August 09, 2024 patient underwent off-pump CABG x 3 at our facility. She had a prolonged and complicated hospitalization. Following the procedure, she developed persistent left-sided/recurrent pleural effusion requiring multiple thoracentesis, and did undergo left thoracoscopy, talc pleurodesis, and placement of a left Pleurx catheter on 09/29/2024. She also developed a rather large pericardial effusion, requiring subxiphoid pericardial window done 10/04/2024. Patient had been draining her left-sided Pleurx catheter approximately 1 time per week and approximately 100 mL of serous fluid was removed each time. Developed some left-sided chest pain and swelling, and had her Pleurx catheter removed last Friday. Of note, patient has been seen in outpatient basis for recurrent bilateral periareolar breast abscesses by Dr. Familia Mendez, and is reportedly scheduled for breast surgery March 22. She is having purulent left nipple drainage. She returns to the emergency department yesterday afternoon with a chief complaint of left chest pain and back tenderness especially with deep breathing. She denies any difficulty in breathing. She has had fever develop over the last 24 hours. Workup in the emergency department including a chest CTA which did not show any evidence of pulmonary embolism. There was cardiomegaly with possible mild pulmonary vascular congestion and small left pleural effusion. Fluid within the left pleural fissure. No focal consolidations. Hepatocellular disease compatible with cirrhosis and evidence of portal hypertension. Bilateral nonobstructive renal calculi and previous cholecystectomy changes. She is running fevers with a Tmax of 100.7 F. CBC: WBC count 6.2, hemoglobin 11, platelets 89,000. CMP unremarkable, electrolytes WDL, creatinine 0.72, glucose 104. Lactic 1. LFTs unremarkable. Troponin less than 0.012. NT proBNP 817. Urinalysis unremarkable for infection. Viral screen negative for influenza, RSV, COVID. Patient currently being evaluated emergency department. She has just ambulated back from the restroom. Endorses generalized constitutional symptoms with severe fatigue and intermittent fevers. She is in no respiratory distress. On room air. States she has occasional cough but no significant sputum production or hemoptysis. Does endorse some left-sided back and left anterior chest pain with deep inspiration. Some tenderness surrounding the previous left Pleurx catheter site. No drainage. No recent outpatient treatment of pneumonia. Recently, on antibiotics for breast abscesses. She does have left breast nipple drainage, purulent. No significant breast tenderness or induration. Vital signs are stable. Overall nontoxic appearance. The patient is seen today March 11, 2025 in follow-up on the regular medical floor. She is currently sitting up in bed. Awake and alert in no acute distress. Maintaining good O2 saturations on room air oxygen. She is afebrile. Hemodynamically stable. Denies any shortness of breath, cough or congestion. Gram stain of the wound of the breast revealed moderate gram-negative bacilli, many gram-positive cocci. White count 6.1. Hemoglobin 9.3. Platelets 74,000. Sodium 137. Potassium 4.0. Bicarb 23. BUN 17. Creatinine 0.60. Glucose 120. She remains on Unasyn and vancomycin per ID service. Lovenox for DVT pro phylaxis. Objective - Vital Signs Vital signs: Vital Signs Temp 97.9 F 03/11/25 07:00 Pulse 70 03/11/25 07:00 Resp 16 03/11/25 07:00 BP 132/78 03/11/25 07:00 Pulse Ox 98 03/11/25 07:00 FiO2 Intake & Output 03/10/25 03/11/25 03/11/25 18:59 06:59 18:59 Intake Total 948 100 Balance 948 100 Intake: Oral 948 100 Other: Voiding Method Toilet # Voids 2 3 - Exam GENERAL EXAM: Alert, very pleasant 50-year-old obese female, stable and on room air oxygen, comfortable in no apparent distress. HEAD: Normocephalic and atraumatic EYES: Normal reaction of pupils, equal size. NOSE: Clear with pink turbinates. THROAT: No erythema or exudates. NECK: No masses, no JVD. CHEST: No chest wall deformity. Healing, pink, midsternal incision. Previous left Pleurx catheter site approximated, no significant drainage. Spontaneous left nipple purulent drainage. LUNGS: Equal air entry with left basilar dullness and inspiratory crackles. On room air. No conversational dyspnea or accessory muscle use.. CVS: S1 and S2 normal with soft systolic murmur, regular rhythm. No other extra heart sounds ABDOMEN: No hepatosplenomegaly, active bowel sounds, no guarding or rigidity. SPINE: No scoliosis or deformity SKIN: No rashes CENTRAL NERVOUS SYSTEM: No focal deficits, tone is normal in all 4 extremities. EXTREMITIES: There is no peripheral edema, clubbing, or cyanosis. Peripheral pulses are intact. - Labs CBC & Chem 7: 03/11/25 05:17 03/11/25 05:17 Labs: Abnormal Lab Results - Last 24 Hours (Table) 03/11/25 03/11/25 Range/Units 05:17 05:17 RBC 3.71 L (4.10-5.20) X 10*6/uL Hgb 9.3 L (12.0-15.0) g/dL Hct 31.6 L (37.2-46.3) % MCH 25.1 L (27.0-32.0) pg MCHC 29.4 L (32.0-37.0) g/dL RDW 16.4 H (11.5-14.5) % Plt Count 74 L (140-440) X 10*3/uL Elliptocytes 2+ A (None Seen) Chloride 109 H (98-107) mmol/L Glucose 120 H (74-99) mg/dL Microbiology - Last 24 Hours (Table) 03/10/25 01:30 Gram Stain - Preliminary Breast - Left Assessment and Plan Assessment: Recurrent/chronic left-sided pleural effusion, requiring multiple previous thoracentesis, eventually undergoing left thoracoscopy, talc pleurodesis, and placement of a left Pleurx catheter on 09/29/2024. The Pleurx catheter was reportedly removed March 04, 2025. Ultrasound of the left chest reveals a 8.6 cm pocket however there is tissue within the window. No plans for thoracentesis. Recurrent/chronic bilateral breast abscess, with multiple previous drainage, and reportedly scheduled for bilateral resection of the nipple areolar complexes on March 22 Acute febrile illness Coronary artery disease with previous PCI/stenting and subsequent CABG x 3 normed on August 09, 2024, followed by a prolonged and complicated hospital course. History of right-sided pleural effusion with previous thoracentesis History of small to moderate-sized pericardial effusion, with history of subxiphoid pericardial window performed 10/04/2024 History of enterocolitis Microcytic, hypochromic anemia, hemoglobin stable at 11.1 grams per deciliter Hypertension History of hyperlipidemia History of diabetes mellitus History of bilateral carotid artery stenosis, with a greater than 70% stenosis of the left carotid bifurcation and less than 50% stenosis to the right carotid bifurcation History of liver disease History of alcohol abuse Bipolar disorder/anxiety Chronic marijuana use Obesity, with a BMI of 36.8 kg/m Plan: The patient was seen and evaluated Remains stable and on room air oxygen Microbiology, labs and medications reviewed Remains on Unasyn and vancomycin Ultrasound of the chest reviewed No plans for thoracentesis Other consultants notes noted We will continue to follow I have personally seen and examined the patient, performed the documentation and the assessment and plan as written. Number of minutes spent on the visit: 10 Dictation was produced using [employer] dictation software. Please excuse any grammatical, word or spelling errors.
--- NOTE | 2025-03-11 15:02 | P.PN ---
Subjective Progress Note Date: 03/11/25 History of present illness; Patient is a 49 year old female with past medical history of atrial fibrillatio n, diabetes mellitus, GERD, hyperlipidemia, hypertension, CAD with CABG 08/09/2024,bilateral carotid stents 08/09/2024, left VATS with talc pleurodesis and placement also left-sided Pleurx catheter 09/29/2024, subxiphoid pericardial window 10/04/24 presents with shortness of breath and fever. Patient reports general malaise feeling since Friday when she woke up with a sinus infection and was increasingly fatigued. She began to have some shortness of breath accompanied by posterior left shoulder pain, which is not worsened by movement. Breathing worsens with deep inspiration. She states that her chest feels heavy and tender to touch. Today the patient is experiencing a fever as well as a coug h. She also reports long history of bilateral breast abscesses which she follows with Dr. Fajardo for and has upcoming procedure planned with her. She endorses some breast tenderness with green-white purulence expression. She also had Pleurx catheter removed last Friday. Patient reports absence of nausea, vomiting, weakness, dizziness, headache, and dysuria. REVIEW OF SYSTEMS: Pertinent positives and negatives noted in HPI. 03/11/2025 Patient seen and examined at bedside. General malaise has improved. She continues to have pain in left upper quadrant, site of Pleurx catheter removal. Breasts are physician extender. No other complaints. PHYSICAL EXAMINATION: Vitals reviewed GENERAL: Resting comfortably in bed. Obese. Appears older than stated age. CARDIOVASCULAR: S1 and S2 present. No murmurs, rubs, or gallops. PULMONARY: Chest is clear to auscultation, no wheezing, rhonchi, or crackles. ABDOMEN: Soft, nontender, nondistended. No palpable organomegaly. EXTREMITIES: No apparent cyanosis, clubbing. No pedal edema. NEUROLOGICAL: Alert and oriented. Gross neurological examination with no apparent focal deficits. SKIN: Erythema of right breast in 2 o'clock position. Expression of green/white purulent drainage in left breast with tenderness. Today significant findings: LabsWBC 6.19, hemoglobin 9.3, platelets 74, elliptocytes 2+, glucose 120, procalcitonin 0.09, breast culture with many gram-positive cocci, moderate gram- negative bacilli No new imaging Assessment and Plan: In summary, patient is a 49 year old female with past medical history of atrial fibrillation, diabetes mellitus, GERD, hyperlipidemia, hypertension, CAD with CABG 08/09/2024,bilateral carotid stents 08/09/2024, left VATS with talc pleurodesis and placement also left-sided Pleurx catheter 09/29/2024, subxiphoid pericardial window 10/04/24 presents with shortness of breath and fever. #Sepsis likely due to breast infection #Acute on chronic bilateral breast abscesses with purulent drainage -Peak temperature 100.7 Fahrenheit, respiratory rate 24 Ultrasound left breast findings of no duct ectasia for solid or cystic lesion seen, no abnormal fluid collection -Continue Unasyn 3 g every 6 hours and IV vancomycin dosing per pharmacy Begin morphine 4 mg IV every 4 hours as needed for pain Blood and breast purulence cultures pending Surgery following ID following #Recurrent/chronic left-sided pleural effusion CT chest with small to moderate left-sided pleural effusion No intervention from pulmonology at this time #Diabetes mellitus, type 2 Holding oral medications Begin Accu-Cheks and low-dose sliding scale, monitor for hypoglycemia Chronic Medical Conditions Atrial fibrillation Diabetes mellitus GERD Hyperlipidemia Hypertension CAD with CABG 08/09/2024 Bilateral carotid stents 08/09/2024 Left VATS with talc pleurodesis and placement also left-sided Pleurx catheter 09/29/2024 Subxiphoid pericardial window 10/04/24 - resume home medications DVT ppx: Subq Lovenox 40 meq daily Code status: Full code F: P.O. E: Replete as needed N: Heart healthy diet A: Ambulatory Anticipated discharge place: Home Anticipated discharge time: [address] Louis seen patient with resident, present during exam, and agreed with findings. Dictation was produced using [employer] dictation software. Please excuse any grammatical, word or spelling errors. Objective - Vital Signs Vital signs: Vital Signs Temp 97.9 F 03/11/25 07:00 Pulse 70 03/11/25 07:00 Resp 16 03/11/25 07:00 BP 132/78 03/11/25 07:00 Pulse Ox 98 03/11/25 07:00 FiO2 Intake & Output 03/10/25 03/11/25 03/11/25 18:59 06:59 18:59 Intake Total 948 Balance 948 Intake: Oral 948 Other: Voiding Method Toilet # Voids 2 3 - Labs CBC & Chem 7: 03/11/25 05:17 03/11/25 05:17 Labs: Abnormal Lab Results - Last 24 Hours (Table) 03/11/25 03/11/25 Range/Units 05:17 05:17 RBC 3.71 L (4.10-5.20) X 10*6/uL Hgb 9.3 L (12.0-15.0) g/dL Hct 31.6 L (37.2-46.3) % MCH 25.1 L (27.0-32.0) pg MCHC 29.4 L (32.0-37.0) g/dL RDW 16.4 H (11.5-14.5) % Plt Count 74 L (140-440) X 10*3/uL Elliptocytes 2+ A (None Seen) Chloride 109 H (98-107) mmol/L Glucose 120 H (74-99) mg/dL Microbiology - Last 24 Hours (Table) 03/10/25 01:30 Gram Stain - Preliminary Breast - Left
--- NOTE | 2025-03-11 15:32 | P.PN ---
Subjective Progress Note Date: 03/11/25 Principal diagnosis: Reason for follow-up is breast abscess and cellulitis Patient is a 50-year-old female with a past medical history significant for Atrial Fibrillation, Coronary Artery Disease (CAD), Heart Failure, Diabetes Mellitus, GERD/Reflux, Hyperlipidemia, Hypertension, Liver Disease, Pneumonia, Syncope and this patient has been dealing with drainage from bilateral nipple for many years and history of multiple breast abscesses admitted to hospital with fever concerning for recurrent breast abscess. On today's evaluation that is 03/11/2025, the patient continues to be afebrile, the patient is on room air and breathing comfortably, the Pt denies having any chest pain or cough, the patient denies having any abdominal pain no vomiting or any diarrhea pain to the bilateral breast area slightly decreased. Patient white count 6.19 creatinine 0.60 cultures currently pending Objective - Vital Signs Vital signs: Vital Signs Temp 98.6 F 03/11/25 14:14 Pulse 58 L 03/11/25 14:14 Resp 16 03/11/25 08:00 BP 110/76 03/11/25 14:14 Pulse Ox 96 03/11/25 14:14 FiO2 Intake & Output 03/10/25 03/11/25 03/11/25 18:59 06:59 18:59 Intake Total 948 160 Balance 948 160 Intake: Oral 948 160 Other: Voiding Method Toilet # Voids 2 3 - Exam GENERAL DESCRIPTION: Middle-age female lying in bed in no distress RESPIRATORY SYSTEM: Unlabored breathing , decreased breath sounds at bases HEART: S1 S2 regular rate and rhythm , ABDOMEN: Soft , no tenderness EXTREMITIES: No edema feet - Labs CBC & Chem 7: 03/11/25 05:17 03/11/25 05:17 Labs: Abnormal Lab Results - Last 24 Hours (Table) 03/11/25 03/11/25 Range/Units 05:17 05:17 RBC 3.71 L (4.10-5.20) X 10*6/uL Hgb 9.3 L (12.0-15.0) g/dL Hct 31.6 L (37.2-46.3) % MCH 25.1 L (27.0-32.0) pg MCHC 29.4 L (32.0-37.0) g/dL RDW 16.4 H (11.5-14.5) % Plt Count 74 L (140-440) X 10*3/uL Elliptocytes 2+ A (None Seen) Chloride 109 H (98-107) mmol/L Glucose 120 H (74-99) mg/dL Microbiology - Last 24 Hours (Table) 03/10/25 01:30 Gram Stain - Preliminary Breast - Left Wound Culture - Preliminary 03/10/25 01:45 Blood Culture - Preliminary Blood Assessment and Plan (1) Fever Current Visit: Yes Status: Acute Code(s): R50.9 - FEVER, UNSPECIFIED SNOMED Code(s): 577428771 (2) Breast abscess Current Visit: No Status: Acute Code(s): N61.1 - ABSCESS OF THE BREAST AND NIPPLE SNOMED Code(s): 23613503 Plan: 1patient presented to hospital with not feeling well she also have fever and some chills and noticed to have some purulent drainage from the nipple which has been cultured in this patient who did have a history of recurrent breast abscesses requiring multiple drainage and concern for possible recurrent breast abscess with a likely theology is currently without obvious focus of infection in this patient with negative UA CT did not show any evidence of pneumonia no evidence of any lower extremity cellulitis or joint swelling 2-patient mentions some improvement to continue with vancomycin pharmacy to dose and Unasyn while waiting for the culture to finalize Dictation was produced using [employer] dictation software. please excuse any grammatical, word or spelling errors. Time with Patient: Less than 30
[2025-03-12] MEDS: VANCOMYCIN TROUGH DUE 1 EACH MISC MISCELLANE ONE (05:15)
[2025-03-12 09:25] LABS: BUN/Creat Ratio 21.43 Ratio (12.00-20.00); Calcium 8.1 mg/dL (8.7-10.3); Carbon Dioxide 23.2 mmol/L (21.6-31.8); Chloride 109 mmol/L (96-109); Glucose 121 mg/dL (70-110); Sodium 140 mmol/L (135-145)
[2025-03-12 09:31] LABS: Basophils # (A) 0.04 X 10*3/uL (0.00-0.10); Basophils % (A) 0.7 %; Eosinophils # (A) 0.26 X 10*3/uL (0.04-0.35); Eosinophils % (A) 4.7 %; HCT 33.7 % (37.2-46.3); HGB 10.1 g/dL (12.0-15.0); Lymphocytes # (A) 1.43 X 10*3/uL (0.90-5.00); MCH 25.1 pg (27.0-32.0); MCV 83.6 FL (80.0-97.0); Monocytes # (A) 0.65 X 10*3/uL (0.20-1.00); Monocytes % (A) 11.8 %; NRBC Per 100 WBC 0 X 10*3/uL (0.00-0.01); Neutrophils % (A) 56.6 %; Platelet Count 91 X 10*3/uL (140-440); RBC 4.03 X 10*6/uL (4.10-5.20); RDW 16.7 % (11.5-14.5); WBC 5.49 X 10*3/uL (4.50-10.00)
--- NOTE | 2025-03-12 11:34 | P.PN ---
Subjective Progress Note Date: 03/12/25 History of present illness; Patient is a 49 year old female with past medical history of atrial fibrillatio n, diabetes mellitus, GERD, hyperlipidemia, hypertension, CAD with CABG 08/09/2024,bilateral carotid stents 08/09/2024, left VATS with talc pleurodesis and placement also left-sided Pleurx catheter 09/29/2024, subxiphoid pericardial window 10/04/24 presents with shortness of breath and fever. Patient reports general malaise feeling since Friday when she woke up with a sinus infection and was increasingly fatigued. She began to have some shortness of breath accompanied by posterior left shoulder pain, which is not worsened by movement. Breathing worsens with deep inspiration. She states that her chest feels heavy and tender to touch. Today the patient is experiencing a fever as well as a coug h. She also reports long history of bilateral breast abscesses which she follows with Dr. Fajardo for and has upcoming procedure planned with her. She endorses some breast tenderness with green-white purulence expression. She also had Pleurx catheter removed last Friday. Patient reports absence of nausea, vomiting, weakness, dizziness, headache, and dysuria. REVIEW OF SYSTEMS: Pertinent positives and negatives noted in HPI. 03/11/2025 Patient seen and examined at bedside. General malaise has improved. She continues to have pain in left upper quadrant, site of Pleurx catheter removal. 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 No other complaints. 03/12/2025 Patient seen and examined at bedside. Pain is improving and her shoulder and back. Awaiting culture results. PHYSICAL EXAMINATION: Vitals reviewed GENERAL: Resting comfortably in bed. Obese. Appears older than stated age. CARDIOVASCULAR: S1 and S2 present. No murmurs, rubs, or gallops. PULMONARY: Chest is clear to auscultation, no wheezing, rhonchi, or crackles. ABDOMEN: Soft, nontender, nondistended. No palpable organomegaly. SKIN: Erythema of right breast in 2 o'clock position. Expression of green/white purulent drainage in left breast with tenderness. Today significant findings: LabsWBC 5.49, hemoglobin 10.1, platelets 91, breast culture with many gram- positive cocci, moderate gram-negative bacilli No new imaging Assessment and Plan: In summary, patient is a 49 year old female with past medical history of atrial fibrillation, diabetes mellitus, GERD, hyperlipidemia, hypertension, CAD with CABG 08/09/2024,bilateral carotid stents 08/09/2024, left VATS with talc pleurodesis and placement also left-sided Pleurx catheter 09/29/2024, subxiphoid pericardial window 10/04/24 presents with shortness of breath and fever. #Sepsis likely due to breast infection #Acute on chronic bilateral breast abscesses with purulent drainage -Peak temperature 100.7 Fahrenheit, respiratory rate 24 Ultrasound left breast findings of no duct ectasia for solid or cystic lesion seen, no abnormal fluid collection -Continue Unasyn 3 g every 6 hours and IV vancomycin dosing per pharmacy Begin morphine 4 mg IV every 4 hours as needed for pain Blood and breast purulence cultures pending Surgery following ID following #Recurrent/chronic left-sided pleural effusion CT chest with small to moderate left-sided pleural effusion No intervention from pulmonology at this time #Diabetes mellitus, type 2 Holding oral medications Begin Accu-Cheks and low-dose sliding scale, monitor for hypoglycemia #Bicytopenia Hemoglobin 10.1, platelets 91 Chronic at baseline Monitor CBC Chronic Medical Conditions Atrial fibrillation Diabetes mellitus GERD Hyperlipidemia Hypertension CAD with CABG 08/09/2024 Bilateral carotid stents 08/09/2024 Left VATS with talc pleurodesis and placement also left-sided Pleurx catheter 09/29/2024 Subxiphoid pericardial window 10/04/24 - resume home medications DVT ppx: Subq Lovenox 40 meq daily Code status: Full code F: P.O. E: Replete as needed N: Heart healthy diet A: Ambulatory Anticipated discharge place: Home Anticipated discharge time: Tomorrow Dr. Louis seen patient with resident, present during exam, and agreed with findings. Dictation was produced using [employer] dictation software. Please excuse any grammatical, word or spelling errors. Objective - Vital Signs Vital signs: Vital Signs Temp 97.9 F 03/12/25 07:00 Pulse 59 L 03/12/25 07:00 Resp 14 03/12/25 07:00 BP 134/80 03/12/25 07:00 Pulse Ox 98 03/12/25 07:00 FiO2 Intake & Output 03/11/25 03/12/25 03/12/25 18:59 06:59 18:59 Intake Total 160 Balance 160 Intake: Oral 160 Other: Voiding Method Toilet # Voids 3 - Labs CBC & Chem 7: 03/12/25 04:08 03/12/25 04:08 Labs: Abnormal Lab Results - Last 24 Hours (Table) 03/12/25 03/12/25 Range/Units 04:08 04:08 RBC 4.03 L (4.10-5.20) X 10*6/uL Hgb 10.1 L (12.0-15.0) g/dL Hct 33.7 L (37.2-46.3) % MCH 25.1 L (27.0-32.0) pg MCHC 30.0 L (32.0-37.0) g/dL RDW 16.7 H (11.5-14.5) % Plt Count 91 L (140-440) X 10*3/uL BUN/Creatinine Ratio 21.43 H (12.00-20.00) Ratio Glucose 121 H (70-110) mg/dL Calcium 8.1 L (8.7-10.3) mg/dL Microbiology - Last 24 Hours (Table) 03/10/25 01:30 Gram Stain - Preliminary Breast - Left Wound Culture - Preliminary 03/10/25 01:45 Blood Culture - Preliminary Blood
--- NOTE | 2025-03-12 11:54 | P.PN ---
Subjective Progress Note Date: 03/12/25 I am seeing this patient in new consultation for a recurrent left-sided pleural effusion. Patient is a 50-year-old white female with a complicated past medical history significant for coronary artery disease with previous PCI/stenting and subsequent CABG x recurrent left-sided pleural effusion with frequent thoracentesis status post left-sided VATS with talc pleurodesis and left sided Pleurx catheter placement, right-sided pleural effusion, diabetes mellitus, hypertension, carotid artery stenosis, alcohol abuse, liver disease, breast abscesses, bipolar disorder/anxiety, previous tobacco dependence, chronic marijuana use. Note that back on August 09, 2024 patient underwent off-pump CABG x 3 at our facility. She had a prolonged and complicated hospitalization. Following the procedure, she developed persistent left-sided/recurrent pleural effusion requiring multiple thoracentesis, and did undergo left thoracoscopy, talc pleurodesis, and placement of a left Pleurx catheter on 09/29/2024. She also developed a rather large pericardial effusion, requiring subxiphoid pericardial window done 10/04/2024. Patient had been draining her left-sided Pleurx catheter approximately 1 time per week and approximately 100 mL of serous fluid was removed each time. Developed some left-sided chest pain and swelling, and had her Pleurx catheter removed last Friday. Of note, patient has been seen in outpatient basis for recurrent bilateral periareolar breast abscesses by Dr. Familia Mendez, and is reportedly scheduled for breast surgery March 22. She is having purulent left nipple drainage. She returns to the emergency department yesterday afternoon with a chief complaint of left chest pain and back tenderness especially with deep breathing. She denies any difficulty in breathing. She has had fever develop over the last 24 hours. Workup in the emergency department including a chest CTA which did not show any evidence of pulmonary embolism. There was cardiomegaly with possible mild pulmonary vascular congestion and small left pleural effusion. Fluid within the left pleural fissure. No focal consolidations. Hepatocellular disease compatible with cirrhosis and evidence of portal hypertension. Bilateral nonobstructive renal calculi and previous cholecystectomy changes. She is running fevers with a Tmax of 100.7 F. CBC: WBC count 6.2, hemoglobin 11, platelets 89,000. CMP unremarkable, electrolytes WDL, creatinine 0.72, glucose 104. Lactic 1. LFTs unremarkable. Troponin less than 0.012. NT proBNP 817. Urinalysis unremarkable for infection. Viral screen negative for influenza, RSV, COVID. Patient currently being evaluated emergency department. She has just ambulated back from the restroom. Endorses generalized constitutional symptoms with severe fatigue and intermittent fevers. She is in no respiratory distress. On room air. States she has occasional cough but no significant sputum production or hemoptysis. Does endorse some left-sided back and left anterior chest pain with deep inspiration. Some tenderness surrounding the previous left Pleurx catheter site. No drainage. No recent outpatient treatment of pneumonia. Recently, on antibiotics for breast abscesses. She does have left breast nipple drainage, purulent. No significant breast tenderness or induration. Vital signs are stable. Overall nontoxic appearance. The patient is seen today March 11, 2025 in follow-up on the regular medical floor. She is currently sitting up in bed. Awake and alert in no acute distress. Maintaining good O2 saturations on room air oxygen. She is afebrile. Hemodynamically stable. Denies any shortness of breath, cough or congestion. Gram stain of the wound of the breast revealed moderate gram-negative bacilli, many gram-positive cocci. White count 6.1. Hemoglobin 9.3. Platelets 74,000. Sodium 137. Potassium 4.0. Bicarb 23. BUN 17. Creatinine 0.60. Glucose 120. She remains on Unasyn and vancomycin per ID service. Lovenox for DVT pro phylaxis. The patient is seen today March 12, 2025 in follow-up on the regular medical floor. She is awake and alert in no acute distress. Continues to maintain good O2 saturations in the 90s on room air. Denies any worsening shortness of breath, cough or congestion. She remains on Unasyn and vancomycin. Lovenox for DVT prophylaxis. Sodium 140. Potassium 4.0. Bicarb 23. BUN 15. Creatinine 0.7. Glucose 121. Vancomycin trough 13.6. Breast wound cultures reveal moderate gram-negative bacilli and many gram-positive bacilli. Blood culture reveals no growth to date. She has remained afebrile for greater than 24 hours. Hemodynamically stable. Objective - Vital Signs Vital signs: Vital Signs Temp 97.9 F 03/12/25 07:00 Pulse 59 L 03/12/25 07:00 Resp 17 03/12/25 08:00 BP 134/80 03/12/25 07:00 Pulse Ox 98 03/12/25 07:00 FiO2 Intake & Output 03/11/25 03/12/25 03/12/25 18:59 06:59 18:59 Intake Total 160 Balance 160 Intake: Oral 160 Other: Voiding Method Toilet # Voids 3 - Exam GENERAL EXAM: Alert, 50-year-old obese female, stable and on room air oxygen, in no apparent distress. HEAD: Normocephalic and atraumatic EYES: Normal reaction of pupils, equal size. NOSE: Clear with pink turbinates. THROAT: No erythema or exudates. NECK: No masses, no JVD. CHEST: No chest wall deformity. Healing, pink, midsternal incision. Previous left Pleurx catheter site approximated, no significant drainage. Spontaneous left nipple purulent drainage. LUNGS: Equal air entry with left basilar dullness and inspiratory crackles. On room air. No conversational dyspnea or accessory muscle use.. CVS: S1 and S2 normal with soft systolic murmur, regular rhythm. No other extra heart sounds ABDOMEN: No hepatosplenomegaly, active bowel sounds, no guarding or rigidity. SPINE: No scoliosis or deformity SKIN: No rashes CENTRAL NERVOUS SYSTEM: No focal deficits, tone is normal in all 4 extremities. EXTREMITIES: There is no peripheral edema, clubbing, or cyanosis. Peripheral pulses are intact. - Labs CBC & Chem 7: 03/12/25 04:08 03/12/25 04:08 Labs: Abnormal Lab Results - Last 24 Hours (Table) 03/12/25 03/12/25 Range/Units 04:08 04:08 RBC 4.03 L (4.10-5.20) X 10*6/uL Hgb 10.1 L (12.0-15.0) g/dL Hct 33.7 L (37.2-46.3) % MCH 25.1 L (27.0-32.0) pg MCHC 30.0 L (32.0-37.0) g/dL RDW 16.7 H (11.5-14.5) % Plt Count 91 L (140-440) X 10*3/uL BUN/Creatinine Ratio 21.43 H (12.00-20.00) Ratio Glucose 121 H (70-110) mg/dL Calcium 8.1 L (8.7-10.3) mg/dL Microbiology - Last 24 Hours (Table) 03/10/25 01:30 Gram Stain - Preliminary Breast - Left Wound Culture - Preliminary 03/10/25 01:45 Blood Culture - Preliminary Blood Assessment and Plan Assessment: Recurrent/chronic left-sided pleural effusion, requiring multiple previous thoracentesis, eventually undergoing left thoracoscopy, talc pleurodesis, and placement of a left Pleurx catheter on 09/29/2024. The Pleurx catheter was reportedly removed March 04, 2025. Ultrasound of the left chest reveals a 8.6 cm pocket however there is tissue within the window. No plans for thoracentesis. Recurrent/chronic bilateral breast abscess, with multiple previous drainage, and reportedly scheduled for bilateral resection of the nipple areolar complexes on March 22 Acute febrile illness Coronary artery disease with previous PCI/stenting and subsequent CABG x 3 normed on August 09, 2024, followed by a prolonged and complicated hospital course. History of right-sided pleural effusion with previous thoracentesis History of small to moderate-sized pericardial effusion, with history of subxiphoid pericardial window performed 10/04/2024 History of enterocolitis Microcytic, hypochromic anemia, hemoglobin stable at 11.1 grams per deciliter Hypertension History of hyperlipidemia History of diabetes mellitus History of bilateral carotid artery stenosis, with a greater than 70% stenosis of the left carotid bifurcation and less than 50% stenosis to the right carotid bifurcation History of liver disease History of alcohol abuse Bipolar disorder/anxiety Chronic marijuana use Obesity, with a BMI of 36.8 kg/m Plan: The patient was seen and evaluated Microbiology, labs and medications reviewed Wound culture pending Blood culture revealing no growth to date Remains on Unasyn and vancomycin Remains afebrile greater than 24 hours Remains stable and on room air oxygen No plans for thoracentesis We will continue to follow I have personally seen and examined the patient, performed the documentation and the assessment and plan as written. Number of minutes spent on the visit: 10 Dictation was produced using [facility] dictation software. Please excuse any grammatical, word or spelling errors.
--- NOTE | 2025-03-12 13:03 | P.PN ---
Subjective Progress Note Date: 03/12/25 Principal diagnosis: Reason for follow-up is breast abscess and cellulitis Patient is a 50-year-old female with a past medical history significant for Atrial Fibrillation, Coronary Artery Disease (CAD), Heart Failure, Diabetes Mellitus, GERD/Reflux, Hyperlipidemia, Hypertension, Liver Disease, Pneumonia, Syncope and this patient has been dealing with drainage from bilateral nipple for many years and history of multiple breast abscesses admitted to hospital with fever concerning for recurrent breast abscess. On today's evaluation that is 03/12/2025, patient did not have any fever and denies any chills, patient is breathing comfortably on room air, patient with no chest pain or cough patient did not have any abdominal pain nausea vomiting or any loose stools pain to the breast area has slightly decreased in intensity. Patient white count is 5.49, creatinine 0.7 cultures so far negative Objective - Vital Signs Vital signs: Vital Signs Temp 97.9 F 03/12/25 07:00 Pulse 59 L 03/12/25 07:00 Resp 17 03/12/25 08:00 BP 134/80 03/12/25 07:00 Pulse Ox 98 03/12/25 07:00 FiO2 Intake & Output 03/11/25 03/12/25 03/12/25 18:59 06:59 18:59 Intake Total 160 Balance 160 Intake: Oral 160 Other: Voiding Method Toilet # Voids 3 - Exam GENERAL DESCRIPTION: Middle-age female lying in bed in no distress RESPIRATORY SYSTEM: Unlabored breathing , decreased breath sounds at bases HEART: S1 S2 regular rate and rhythm , ABDOMEN: Soft , no tenderness EXTREMITIES: No edema feet - Labs CBC & Chem 7: 03/12/25 04:08 03/12/25 04:08 Labs: Abnormal Lab Results - Last 24 Hours (Table) 03/12/25 03/12/25 Range/Units 04:08 04:08 RBC 4.03 L (4.10-5.20) X 10*6/uL Hgb 10.1 L (12.0-15.0) g/dL Hct 33.7 L (37.2-46.3) % MCH 25.1 L (27.0-32.0) pg MCHC 30.0 L (32.0-37.0) g/dL RDW 16.7 H (11.5-14.5) % Plt Count 91 L (140-440) X 10*3/uL BUN/Creatinine Ratio 21.43 H (12.00-20.00) Ratio Glucose 121 H (70-110) mg/dL Calcium 8.1 L (8.7-10.3) mg/dL Microbiology - Last 24 Hours (Table) 03/10/25 01:30 Gram Stain - Preliminary Breast - Left Wound Culture - Preliminary 03/10/25 01:45 Blood Culture - Preliminary Blood Assessment and Plan (1) Fever Current Visit: Yes Status: Acute Code(s): R50.9 - FEVER, UNSPECIFIED SNOMED Code(s): 905908310 (2) Breast abscess Current Visit: No Status: Acute Code(s): N61.1 - ABSCESS OF THE BREAST AND NIPPLE SNOMED Code(s): 46218467 Plan: 1patient presented to hospital with not feeling well she also have fever and some chills and noticed to have some purulent drainage from the nipple which has been cultured in this patient who did have a history of recurrent breast abscesses requiring multiple drainage and concern for possible recurrent breast abscess with a likely theology is currently without obvious focus of infection in this patient with negative UA CT did not show any evidence of pneumonia no evidence of any lower extremity cellulitis or joint swelling 2-patient mentions some improvement in her symptoms culture have been negative for any resistant pathogen such as MRSA we will discontinue vancomycin continue with Unasyn Dictation was produced using [employer] dictation software. please excuse any grammatical, word or spelling errors. Time with Patient: Less than 30
[2025-03-13 07:18] VITALS: RESP 16
[2025-03-13 09:35] LABS: BUN/Creat Ratio 15.14 Ratio (12.00-20.00); Blood Urea Nitrogen 10.6 mg/dL (9.0-27.0); Calcium 8.5 mg/dL (8.7-10.3); Chloride 107 mmol/L (96-109); Glucose 114 mg/dL (70-110); Potassium 4.2 mmol/L (3.5-5.5); Sodium 142 mmol/L (135-145)
[2025-03-13 10:32] LABS: HCT 33.8 % (37.2-46.3); HGB 10.2 g/dL (12.0-15.0); MCH 25.4 pg (27.0-32.0); MCHC 30.2 g/dL (32.0-37.0); MCV 84.1 FL (80.0-97.0); NRBC Per 100 WBC 0 X 10*3/uL (0.00-0.01); Platelet Count 76 X 10*3/uL (140-440); RBC 4.02 X 10*6/uL (4.10-5.20); RDW 16.7 % (11.5-14.5); WBC 3.91 X 10*3/uL (4.50-10.00)
--- NOTE | 2025-03-13 13:31 | P.DS ---
Providers Date of admission: 03/09/25 23:33 Attending physician: Carlos Cuellar Consults: 03/09/25 23:31 Consult Physician Urgent Consulting Provider: Rajiv Julio Consult Reason/Comments: Pleural effusion with fever Do you want consulting provider notified?: Yes, Notify in am 03/10/25 01:48 Consult Physician Urgent Consulting Provider: Meaghan Robins Consult Reason/Comments: Purulent nipple drainage; hx recurrent breast abscess; fever Do you want consulting provider notified?: Yes 03/10/25 16:38 Consult Physician Routine Consulting Provider: Maren Fajardo Consult Reason/Comments: Breast abscess Do you want consulting provider notified?: Yes Primary care physician: Sara Velarde MD Hospital Course: 50-year-old female came in with sepsis with fever and leukocytosis. Source was not clear although workup is negative except for mild purulent discharge from her left breast nipple on admission. Anaerobic cultures are positive for Prevotella BVI. Although bedside ultrasound did not reveal any obvious abscess. Patient had history of multiple breast abscess in the past patient significantly improved with the Unasyn. Patient is being discharged on Augmentin for 10 more days as recommended by infectious disease. Patient also has history of recurrent chronic left-sided pleural effusions patient still has some pleural effusion patient is status post talc pleurodesis this is on the left side had a Pleurx catheter which was removed in August 2024. Patient's pleural effusion is stable at this time.. There is no evidence of pneumonia on the chest x-ray or CAT scan. -Sepsis secondary possibly secondary to small breast abscess - Coronary artery disease - Left-sided pleural effusion status post pleurodesis - Hypertension - Hyperlipidemia - Type 2 diabetes mellitus - Bipolar disorder PHYSICAL EXAMINATION: GENERAL: The patient is alert and oriented x3, not in any acute distress. Well developed, well nourished. HEENT: Pupils are round and equally reacting to light. EOMI. No scleral icterus. No conjunctival pallor. Normocephalic, atraumatic. No pharyngeal erythema. No thyromegaly. CARDIOVASCULAR: S1 and S2 present. No murmurs, rubs, or gallops. PULMONARY: Chest is clear to auscultation, no wheezing or crackles. ABDOMEN: Soft, nontender, nondistended, normoactive bowel sounds. No palpable organomegaly. MUSCULOSKELETAL: No joint swelling or deformity. EXTREMITIES: No cyanosis, clubbing, or pedal edema. NEUROLOGICAL: Gross neurological examination did not reveal any focal deficits. SKIN: No rashes. Patient Condition at Discharge: Fair Plan - Discharge Summary New Discharge Prescriptions: New Amoxic-Pot Clav 875-125Mg [Augmentin 875-125] 1 tab PO Q12HR 10 Days #20 tab Continue Gabapentin [Neurontin] 300 mg PO BID Aspirin 81 mg PO DAILY tab Losartan [Cozaar] 12.5 mg PO DAILY Metoprolol Tartrate [Lopressor] 25 mg PO BID Nitroglycerin Sl Tabs [Nitrostat] 0.4 mg SL Q5M PRN PRN Reason: Chest Pain Ferrous Sulfate [Iron (65 MG Elemental)] 325 mg PO DAILY Empagliflozin [Jardiance] 10 mg PO DAILY Acetaminophen Tab [Tylenol] 650 mg PO Q6HR PRN #90 tab PRN Reason: Mild Pain Or Fever > 100.5 traMADol HCL 50 mg PO Q4-6H PRN PRN Reason: Pain Atorvastatin Calcium [Lipitor] 40 mg PO DAILY Omeprazole 20 mg PO DAILY Midodrine HCl [ProAmantine] 2.5 mg PO AC-TID Ergocalciferol [Vitamin D2 (1250 Mcg = 75550 Iu)] 1,250 mcg PO WEEKLY Discharge Medication List Atorvastatin Calcium [Lipitor] 40 mg PO DAILY 09/15/24 [History] Gabapentin [Neurontin] 300 mg PO BID 09/23/24 [History] Aspirin 81 mg PO DAILY tab 10/01/24 [Rx] Losartan [Cozaar] 12.5 mg PO DAILY 10/03/24 [History] Metoprolol Tartrate [Lopressor] 25 mg PO BID 11/01/24 [History] Omeprazole 20 mg PO DAILY 12/07/24 [History] Acetaminophen Tab [Tylenol] 650 mg PO Q6HR PRN #90 tab 12/15/24 [Rx] Empagliflozin [Jardiance] 10 mg PO DAILY 12/15/24 [History] Ferrous Sulfate [Iron (65 MG Elemental)] 325 mg PO DAILY 12/15/24 [History] Midodrine HCl [ProAmantine] 2.5 mg PO AC-TID 12/15/24 [History] Nitroglycerin Sl Tabs [Nitrostat] 0.4 mg SL Q5M PRN 12/15/24 [History] traMADol HCL 50 mg PO Q4-6H PRN 02/02/25 [History] Ergocalciferol [Vitamin D2 (1250 Mcg = 23442 Iu)] 1,250 mcg PO WEEKLY 03/10/25 [History] Amoxic-Pot Clav 875-125Mg [Augmentin 875-125] 1 tab PO Q12HR 10 Days #20 tab 03/13/25 [Rx] Follow up Appointment(s)/Referral(s): Sara Velarde MD [Primary Care Provider] - 3 Days
[2025-03-13 14:35] VITALS: BP 112/69; PULSE 57; TEMP 98
--- NOTE | 2025-03-14 12:25 | P.PN ---
Subjective Progress Note Date: 03/13/25 Principal diagnosis: Reason for follow-up is breast abscess and cellulitis Patient is a 50-year-old female with a past medical history significant for Atrial Fibrillation, Coronary Artery Disease (CAD), Heart Failure, Diabetes Mellitus, GERD/Reflux, Hyperlipidemia, Hypertension, Liver Disease, Pneumonia, Syncope and this patient has been dealing with drainage from bilateral nipple for many years and history of multiple breast abscesses admitted to hospital with fever concerning for recurrent breast abscess. On today's evaluation that is 03/13/2025, Patient is afebrile patient is currently on room air and denies having any shortness of breath, the patient denies any chest pain or cough, the patient denies any nausea vomiting did not have any abdominal pain and no diarrhea. Patient white count is 3.91, creatinine 0.7 cultures with Prevotella Objective - Vital Signs Vital signs: Vital Signs Temp 98.3 F 03/13/25 07:00 Pulse 65 03/13/25 07:00 Resp 16 03/13/25 07:00 BP 159/82 03/13/25 07:00 Pulse Ox 99 03/13/25 07:00 FiO2 Intake & Output 03/12/25 03/13/25 03/13/25 18:59 06:59 18:59 Intake Total 776 Balance 776 Intake: Oral 776 Other: Voiding Method Toilet Toilet Toilet # Voids 3 2 # Bowel Movements 1 - Exam GENERAL DESCRIPTION: Middle-age female lying in bed in no distress RESPIRATORY SYSTEM: Unlabored breathing , decreased breath sounds at bases HEART: S1 S2 regular rate and rhythm , ABDOMEN: Soft , no tenderness EXTREMITIES: No edema feet - Labs CBC & Chem 7: 03/13/25 06:23 03/13/25 06:23 Labs: Abnormal Lab Results - Last 24 Hours (Table) 03/13/25 03/13/25 Range/Units 06:23 06:23 WBC 3.91 L (4.50-10.00) X 10*3/uL RBC 4.02 L (4.10-5.20) X 10*6/uL Hgb 10.2 L (12.0-15.0) g/dL Hct 33.8 L (37.2-46.3) % MCH 25.4 L (27.0-32.0) pg MCHC 30.2 L (32.0-37.0) g/dL RDW 16.7 H (11.5-14.5) % Plt Count 76 L (140-440) X 10*3/uL Glucose 114 H (70-110) mg/dL Calcium 8.5 L (8.7-10.3) mg/dL Microbiology - Last 24 Hours (Table) 03/10/25 01:30 Anaerobic Culture - Preliminary Breast - Left Prevotella bivia 03/10/25 01:45 Blood Culture - Preliminary Blood 03/10/25 01:30 Gram Stain - Final Breast - Left Wound Culture - Final Assessment and Plan (1) Fever Status: Acute Code(s): R50.9 - FEVER, UNSPECIFIED SNOMED Code(s): 815591464 (2) Breast abscess Status: Acute Code(s): N61.1 - ABSCESS OF THE BREAST AND NIPPLE SNOMED Code(s): 88879687 Plan: 1patient presented to hospital with not feeling well she also have fever and some chills and noticed to have some purulent drainage from the nipple which has been cultured in this patient who did have a history of recurrent breast abscesses requiring multiple drainage and concern for possible recurrent breast abscess with a likely theology is currently without obvious focus of infection in this patient with negative UA CT did not show any evidence of pneumonia no evidence of any lower extremity cellulitis or joint swelling 2-patient has shown clinical improvement culture showing Prevotella plan is to finish therapy with oral Augmentin discussed with admitting team working on discharge Dictation was produced using [employer] dictation software. please excuse any grammatical, word or spelling errors. Time with Patient: Less than 30
== END 2025-03-13 14:17 | disposition home or self-care (01) | DRG 720 ==
LOC: EC 16:13 → 6NMEDSUR 23:33 → OBSVTOIN 23:33 → 6NMEDSUR 03-10 06:03
PROVIDERS: ADMIT Hospitalist; ATTEND Hospitalist
DX: A41.9 Sepsis, unspecified organism (principal); N61.1 Abscess of the breast and nipple; I25.10 Atherosclerotic heart disease of native coronary artery without angina pectoris; I11.0 Hypertensive heart disease with heart failure; E78.5 Hyperlipidemia, unspecified; E11.9 Type 2 diabetes mellitus without complications; F31.9 Bipolar disorder, unspecified; D50.9 Iron deficiency anemia, unspecified; I65.23 Occlusion and stenosis of bilateral carotid arteries; E66.9 Obesity, unspecified; F12.90 Cannabis use, unspecified, uncomplicated; I48.91 Unspecified atrial fibrillation; K21.9 Gastro-esophageal reflux disease without esophagitis; F41.9 Anxiety disorder, unspecified; K76.6 Portal hypertension; N20.0 Calculus of kidney; J90 Pleural effusion, not elsewhere classified; Z79.899 Other long term (current) drug therapy; Z79.82 Long term (current) use of aspirin; Z88.8 Allergy status to other drugs, medicaments and biological substances; Z68.36 Body mass index [BMI] 36.0-36.9, adult; Z95.5 Presence of coronary angioplasty implant and graft; Z87.891 Personal history of nicotine dependence; Z87.01 Personal history of pneumonia (recurrent); Z90.49 Acquired absence of other specified parts of digestive tract; Z95.1 Presence of aortocoronary bypass graft; Z79.84 Long term (current) use of oral hypoglycemic drugs
CPT/HCPCS: 36415; 71046; 71275; 76604; 80048; 80053; 80202; 81003; 83605; 83735; 83880; 84145; 84484; 85025; 85027; 85379; 85610; 85730; 87040; 87070; 87075; 87205; 87636; 93005; 94640; 96365; 96366; 96368; 96375; 96376; 99285

== ENCOUNTER → 2025-03-15 | Outpatient (CLI) | payer OTHER ==
[2025-03-15 07:35] VITALS: BP 128/85; PULSE 70; RESP 17; TEMP 98
--- NOTE | 2025-03-15 08:01 | P.PN ---
Subjective Progress Note Date: 03/15/25 Principal diagnosis: chronic bilateral breast abcesses Breast abscess History of present illness: Yovana is a 50-year-old female seen in consultation regarding chronic bilateral breast abscesses. She was last seen in the breast clinic in January 2025. She has had multiple breast abscesses drained in the past. She has had at least 4 drainages on the right breast and 3 on the left. On the left side she was actually admitted to the hospital for IV antibiotics in 2019. Her most recent drainage of the abscesses was in May 2024. She has also had open heart surgery on August 09, 2024 and had 2 stents and then triple bypass. She also has carotid stents. She had a pleurodesis in August of the left chest. A catheter was left in the left chest for fluid accumulation. The catheter was recently removed the last week. Following remov al of the catheter she developed shortness of breath and pain in the left chest. She presented to the emergency room with fevers and left chest discomfort. Ultrasound of the chest as well as CT scan of the chest revealed minimal pleural fluid. Was concerned that her fevers were related to breast abscesses. The patient has minimal discomfort in her breast and the drainage from the left breast has not changed. She has since become afebrile. White count 6.2. Ultrasound of the left breast retroareolar area does not reveal any specific fluid collection. Patient's symptoms were significantly improved with Unasyn. She was discharged on Augmentin for 10 days as per infectious disease. She is not in pain at this time. She is breathing without difficulty. She is afebrile. Nicotine: Smokes 1 pack/day for 30 years stopped 2 years ago Marijuana daily control pills used in the remote past Family history: Mother: Cervical cancer Maternal great aunt: Breast cancer Hormonal history: Menarche: 15 G3, P3 did not breast-feed first at 26 Last menstrual period 2019 Hormones negative Surgical history: Multiple breast abscesses drained in the past Cervical conization Appendectomy Cholecystectomy Carpal tunnel right hand Edentulous/teeth removed Coronary artery bypass graft Carotid stents Pleur-evac catheter Medical history: Hypertension Diabetes Bipolar Takes aspirin Social history: Nicotine: Stopped smoking 2 years ago Alcohol: Negative Drugs: Marijuana in the past Review of Systems - Constitutional Reports fever - EENT Eyes: denies blurred vision Ears: bilateral: tinnitus - Breasts bilateral: as per HPI - Cardiovascular Reports as per HPI - Respiratory Reports as per HPI - Gastrointestinal Reports as per HPI - Genitourinary Genitourinary: Denies dysuria, Denies hematuria - Musculoskeletal Reports as per HPI - Integumentary Reports as per HPI - Neurological Reports syncope, Denies headaches - Psychiatric Reports as per HPI - Endocrine Endocrine Comment(s): diabetic - Hematologic/Lymphatic Reports as per HPI - Allergic/Immunologic Reports as per HPI Past Medical History Past Medical History: Atrial Fibrillation, Coronary Artery Disease (CAD), Heart Failure, Diabetes Mellitus, GERD/Reflux, Hyperlipidemia, Hypertension, Liver Disease, Pneumonia, Syncope Additional Past Medical History / Comment(s): Hx pneumonia yrs ago. Hx kidney stones. Diet controlled diabetic (pt denies diabetes 02/02/25). Seasonal allergies. Left internal carotid artery stenosis. Cirrhosis of liver. No menses in 4 1/2 yrs, states body does not make enough Estrogen. Recurrent pleural effusions. Pericardial effusion, bilateral breast abscesses for the past 5 years History of Any Multi-Drug Resistant Organisms: None Reported Past Surgical History: Appendectomy, Breast Surgery, Cholecystectomy, Coronary Bypass/CABG, Heart Catheterization With Stent, Orthopedic Surgery, Tubal Ligation Additional Past Surgical History / Comment(s): Right wrist carpal tunnel surgery, dental surgery- teeth removed, left breast abcess I&D X3, right breast abcess I&D X2, left ankle surgery, triple CABG 08/09/2024, multiple thoracentesis. Cardiac sents x2 and bilateral carotid stents 08/09/24. Left VATS with talc pleurodesis and placement of left-sided pleurx catheter 09/29/[address] Ortiz; subxiphoid pericardial window 10/04/2024 Past Anesthesia/Blood Transfusion Reactions: No Reported Reaction, Family History of Problems w/ Anesthesia Additional Past Anesthesia/Blood Transfusion Reaction / Comm: No blood transfusion to date. Mom stopped breathing during a surgery and was resuscitated. Date of Last Stent Placement:: 07/30/24 Past Psychological History: Anxiety, Bipolar, Depression Smoking Status: Former smoker Past Alcohol Use History: None Reported Past Drug Use History: None Reported - Past Family History Mother Family Medical History: Cancer Additional Family Medical History / Comment(s): schizoaffective disorder, unsure which type of cancer Father History Unknown: Yes Family Medical History: Unable to Obtain Additional Family Medical History / Comment(s): Patient did not know her father Medications and Allergies Home Medications Medication Instructions Recorded Confirmed Type Atorvastatin Calcium [Lipitor] 40 mg PO DAILY 09/15/24 03/10/25 History Gabapentin [Neurontin] 300 mg PO BID 09/23/24 03/10/25 History Aspirin 81 mg PO DAILY tab 10/01/24 03/10/25 Rx Losartan [Cozaar] 12.5 mg PO DAILY 10/03/24 03/10/25 History Metoprolol Tartrate [Lopressor] 25 mg PO BID 11/01/24 03/10/25 History Omeprazole 20 mg PO DAILY 12/07/24 03/10/25 History Acetaminophen Tab [Tylenol] 650 mg PO Q6HR PRN #90 tab 12/15/24 03/10/25 Rx Empagliflozin [Jardiance] 10 mg PO DAILY 12/15/24 03/10/25 History Ferrous Sulfate [Iron (65 MG 325 mg PO DAILY 12/15/24 03/10/25 History Elemental)] Midodrine HCl [ProAmantine] 2.5 mg PO AC-TID 12/15/24 03/10/25 History Nitroglycerin Sl Tabs [Nitrostat] 0.4 mg SL Q5M PRN 12/15/24 03/10/25 History traMADol HCL 50 mg PO Q4-6H PRN 02/02/25 03/10/25 History Ergocalciferol [Vitamin D2 (1250 1,250 mcg PO WEEKLY 03/10/25 03/10/25 History Mcg = 08998 Iu)] Allergies Allergy/AdvReac Type Severity Reaction Status Date / Time capsaicin Allergy Rash/Hives/ Verified 03/10/25 06:33 Swelling Objective - Vital Signs Vital signs: Vital Signs Temp 98.0 F 03/15/25 07:32 Pulse 70 03/15/25 07:32 Resp 17 03/15/25 07:32 BP 128/85 03/15/25 07:32 Pulse Ox 98 03/15/25 07:32 FiO2 Intake & Output 03/14/25 03/15/25 03/15/25 18:59 06:59 18:59 Weight 94.347 kg - Constitutional General appearance: Present: cooperative - EENT Eyes: Present: EOMI ENT: Present: hearing grossly normal - Neck Neck: Present: normal ROM - Respiratory Respiratory: bilateral: CTA - Cardiovascular Rhythm: regular - Integumentary Integumentary: Present: normal turgor - Musculoskeletal Musculoskeletal: Present: gait normal - Psychiatric Psychiatric: Present: A&O x's 3, appropriate affect, intact judgment & insight - Additional findings Additional findings: Breast Examination: 3 XL Inspection: No swelling of the breast Palpation: Right breast Multi positional exam no specific area of swelling or pain in the right breast, no dominant masses or nodules of concern Right axilla: No adenopathy of concern Left breast: Multi positional exam some fullness at the nipple area there is minimal discharge when I am examining her at this time no discrete dominant masses or nodules of concern, no area of particular increased tenderness Left axilla, no axillary adenopathy of concern Assessment and Plan Assessment: Impression: Chronic left sided pleural effusion requiring multiple previous thoracentesis eventually undergoing left thoracoscopy/talc pleurodesis/placement of left pleural cath on 09-29-2024 which was removed on 03 04 25 History of recurrent bilateral breast abscesses with no change in the symptoms of these recently Acute febrile illness Coronary artery disease with PCI stenting and subsequent CABG x 3 followed by prolonged and complicated hospital course History of right sided pleural effusion in the past History of small to moderate-sized pericardial effusion with history of subxiphoid pericardial window performed on 10-04-2024 History of enterocolitis Diabetes Liver disease Bipolar disorder Chronic marijuana use Obesity BMI 36.8 Plan: Nipple discharge left breast this does not appear to be the cause of the patient's febrile illness last week ; due to no abscess on examination, and recent ultrasound did not reveal acute abscess clearance from pulmonary for surgery cardiac clearance bilateral central lumpectomy for bilateral chronic periareolar infections Consent: I have discussed the risks, benefits and alternative therapies for the above-mentioned procedure and for both sedation/analgesia as well as necessary blood product administration, if indicated, as they pertain to this patient. The patient has indicated understanding and acceptance of the risks and procedures discussed. The risk and benefits of the procedure with the patient and her . Risk include but are not limited to bleeding, infection, reaction to the anesthetic. Secondary to her cardiac and pulmonary history clearance from pulmonary and cardiac clearance is requested. This will be obtained. Arm Abduction: passed
== END ==
LOC: WWCWWP 07:24
PROVIDERS: ATTEND Surgery
DX: N61.1 Abscess of the breast and nipple (principal); J90 Pleural effusion, not elsewhere classified; I25.10 Atherosclerotic heart disease of native coronary artery without angina pectoris; E11.9 Type 2 diabetes mellitus without complications; F31.9 Bipolar disorder, unspecified; K76.9 Liver disease, unspecified; F17.210 Nicotine dependence, cigarettes, uncomplicated; F12.90 Cannabis use, unspecified, uncomplicated; E66.9 Obesity, unspecified; Z68.36 Body mass index [BMI] 36.0-36.9, adult; Z90.49 Acquired absence of other specified parts of digestive tract; Z95.5 Presence of coronary angioplasty implant and graft; Z95.1 Presence of aortocoronary bypass graft; Z87 Personal history of other diseases and conditions; Z87.09 Personal history of other diseases of the respiratory system; Z91.048 Other nonmedicinal substance allergy status

== ENCOUNTER 2025-03-22 06:40 | Day surgery (SDC) | payer OTHER ==
[2025-03-22] MEDS ORDERED: fentaNYL (PF) 50 MCG/ML 2 ML AMP IV PRN (07:00)
[2025-03-22] MEDS: LACTATED RINGERS 1,000 ML IV SCH (07:54)
[2025-03-22] MEDS: ACETAMINOPHEN TAB 500 MG TAB PO PRN (07:54)
[2025-03-22] MEDS: ONDANSETRON 4 MG/2 ML VIAL IVP ONE (08:05)
[2025-03-22] MEDS: DEXAMETHASONE SOD PHOSPHATE 4 MG/ML 1 ML VIAL IV ONE (08:05)
[2025-03-22] MEDS: HEPARIN SODIUM,PORCINE 5,000 UNIT/ML 1 ML VIAL SQ PRN (08:05)
[2025-03-22] MEDS: IV FLUID CONTINUATION 1,000 ML IV ONE (08:11)
[2025-03-22 08:14] LABS: Glucose,Whole Blood 104 mg/dL (70-110)
[2025-03-22] MEDS ORDERED: ePHEDrine 50 MG/ML 1 ML VIAL ONE (08:44)
[2025-03-22] MEDS ORDERED: LIDOCAINE 1% INJ 10MG/ML (20 ML MDV) ONE (08:44)
[2025-03-22] MEDS ORDERED: HYDROmorphone (PF) 1 MG/ML ONE (08:44)
[2025-03-22] MEDS ORDERED: PROPOFOL 10 MG/ML 20 ML VIAL IV ONE (08:44)
[2025-03-22] MEDS ORDERED: SUCCINYLCHOLINE CHLORIDE 200 MG/10 ML VIAL IV ONE (08:44)
[2025-03-22] MEDS ORDERED: MIDAZOLAM 2 MG/2 ML VIAL ONE (08:44)
[2025-03-22] MEDS ORDERED: fentaNYL (PF) 50 MCG/ML 2 ML AMP ONE (08:44)
[2025-03-22] MEDS: ceFAZolin 2 GM in DEXTROSE 5% IN WATER 50 ML IVPB PRN (08:48)
[2025-03-22] MEDS: LIDOCAINE 2% INJ 20 MG/ML SQ ONE ×3 (09:24→10:21)
[2025-03-22] MEDS: LACTATED RINGERS 1,000 ML IV ONE (10:13)
--- NOTE | 2025-03-22 10:20 | P.BCAON ---
Date of Procedure: 03/22/25 Preoperative Diagnosis: Bilateral chronic nipple areolar abscesses/left breast white discharge from the nipple areolar complex Postoperative Diagnosis: Same Procedure(s) Performed: Bilateral central lumpectomy with bilateral oncoplastic tissue transfer, right side 44.5 cm, left side 36 cm Anesthesia: NASH Surgeon: Maren Fajardo Estimated Blood Loss (ml): 10 IV fluids (ml): 800 Pathology: other (Bilateral central lumpectomy) Condition: stable Disposition: same day Indications for Procedure: Chronic nipple areolar abscess/at this time does not appear to have active disease Operative Findings: Bilateral scarring around the nipple areolar complex and in the breast tissue Description of Procedure: Patient was taken to the operative suite and following induction of anesthesia both breasts were prepped and draped in a sterile fashion. The right side was approached initially. Circumareolar incision was made and carried down to the pectoralis muscle. The area of prior abscess and tracking site were included in the specimen. After we are sure that hemostasis was attained the wound was well irrigated. The specimen was 5 x 2.5 cm. A superior pedicle 8 x 2 cm was formed. An inferior pedicle 8 x 2 cm was formed. The pedicles were brought together for an oncoplastic tissue transfer 44.5 cm. Prior to this Surgicel in powder form was placed. The subcutaneous tissue was closed using 3-0 Vicryl suture. The skin was closed using 4-0 Monocryl. The left breast was approached. Circumareolar incision was formed and carried down into the breast tissue. Extruding from the nipple and areolar complex were multiple ducts which appeared to have a white discharge/sebum versus purulent drainage. Cultures aerobic and anaerobic were obtained. The dissection was performed down to the area of the pectoralis muscle. A central lumpectomy was performed. Hemostasis was attained using the electrocautery device. The wound was irrigated. After we are sure that hemostasis was attained an inferior pedicle 6 x 2 cm was formed. A superior pedicle 6 x 2 cm was formed. Surgicel in powder form was placed. The pedicles were brought together and secured using 3-0 Vicryl suture. The subcutaneous tissue was closed using 3-0 Vicryl suture. The skin was closed using 4-0 Monocryl. 10 cc of 2% lidocaine were injected into the incisions. Surgical glue was placed. The patient tolerated the procedure in stable condition.
[2025-03-22 10:41] VITALS: TEMP 96.8
[2025-03-22] MEDS: HYDROmorphone 0.5 MG/0.5 ML SYRINGE IVP PRN (10:56)
[2025-03-22 11:43] VITALS: BP 123/60; PULSE 57; RESP 16
== END 2025-03-22 12:49 | disposition home or self-care (01) ==
LOC: OR 06:40
PROVIDERS: ATTEND Surgery
DX: N61.1 Abscess of the breast and nipple (principal); N60.11 Diffuse cystic mastopathy of right breast; I48.91 Unspecified atrial fibrillation; I11.0 Hypertensive heart disease with heart failure; I50.32 Chronic diastolic (congestive) heart failure; I25.10 Atherosclerotic heart disease of native coronary artery without angina pectoris; Z95.1 Presence of aortocoronary bypass graft; Z95.5 Presence of coronary angioplasty implant and graft; E11.9 Type 2 diabetes mellitus without complications; E78.5 Hyperlipidemia, unspecified; K21.9 Gastro-esophageal reflux disease without esophagitis; K74.60 Unspecified cirrhosis of liver; D64.9 Anemia, unspecified; J90 Pleural effusion, not elsewhere classified; F41.9 Anxiety disorder, unspecified; F31.9 Bipolar disorder, unspecified; J30.2 Other seasonal allergic rhinitis; E66.9 Obesity, unspecified; Z68.36 Body mass index [BMI] 36.0-36.9, adult; Z79.82 Long term (current) use of aspirin; Z79.84 Long term (current) use of oral hypoglycemic drugs; Z79.899 Other long term (current) drug therapy; Z87.891 Personal history of nicotine dependence; Z86.79 Personal history of other diseases of the circulatory system; Z95.828 Presence of other vascular implants and grafts; Z80.3 Family history of malignant neoplasm of breast; Z88.1 Allergy status to other antibiotic agents
CPT/HCPCS: 19301; 14301; 14302; 87070; 87205; 87075; J2250; J0330; J1644; J1100; J0690; J2405; J2003 ×2; J3010; J1171 ×2; J2704

== ENCOUNTER 2025-03-24 15:41 | Emergency (ER) | payer OTHER ==
[2025-03-24] MEDS ORDERED: RX INFO: IV CONTRAST WAS GIVEN 1 EACH MISC MISCELLANE PRN (16:29)
--- NOTE | 2025-03-24 17:05 | ED ---
General Adult HPI - General Chief complaint: Recheck/Abnormal Lab/Rx Stated complaint: Post Op Issue Time Seen by Provider: 03/24/25 15:53 Source: patient Mode of arrival: ambulatory Limitations: no limitations - History of Present Illness Initial comments: 50-year-old female presenting with chief complaint of bilateral breast pain. Patient has history of recurrent breast abscesses. She had surgery with Dr. Familia Mendez on 03/22 for removal of the bilateral nipples and milk ducts. She reports that she was doing well but today when she woke up she had sudden onset severe worsening of her tenderness. She also reports that today she is feeling nauseous, weak, and has a headache. She does have a fever today as well. No vomiting. No discharge from the incision site. Patient is wearing a postoperative bra, states that she has removed it once due to the tenderness. No chest pain or difficulty breathing. No lower extremity swelling. - Related Data Home Medications Medication Instructions Recorded Confirmed Atorvastatin Calcium [Lipitor] 40 mg PO DAILY 09/15/24 03/17/25 Gabapentin [Neurontin] 300 mg PO BID 09/23/24 03/17/25 Metoprolol Tartrate [Lopressor] 25 mg PO BID 11/01/24 03/17/25 Omeprazole 20 mg PO DAILY 12/07/24 03/17/25 Empagliflozin [Jardiance] 10 mg PO DAILY 12/15/24 03/17/25 Ferrous Sulfate [Iron (65 MG 325 mg PO DAILY 12/15/24 03/17/25 Elemental)] Midodrine HCl [ProAmantine] 2.5 mg PO AC-TID 12/15/24 03/17/25 Nitroglycerin Sl Tabs [Nitrostat] 0.4 mg SL Q5M PRN 12/15/24 03/17/25 traMADol HCL 50 mg PO Q4-6H PRN 02/02/25 03/17/25 Ergocalciferol [Vitamin D2 (1250 1,250 mcg PO WEEKLY 03/10/25 03/17/25 Mcg = 12186 Iu)] Amoxic-Pot Clav 875-125Mg 1 tab PO Q12HR 03/17/25 03/17/25 [Augmentin 875-125] Previous Rx's Medication Instructions Recorded Aspirin 81 mg PO DAILY tab 10/01/24 Acetaminophen Tab [Tylenol] 650 mg PO Q6HR PRN #90 tab 12/15/24 oxyCODONE HCL [OxyIR] 5 mg PO Q6H PRN 3 Days #5 tab 03/22/25 Cephalexin [Keflex] 500 mg PO Q6HR 7 Days #28 cap 03/24/25 Allergies Allergy/AdvReac Type Severity Reaction Status Date / Time capsaicin Allergy Rash/Hives/ Verified 03/24/25 15:45 Swelling Review of Systems ROS Statement: Those systems with pertinent positive or pertinent negative responses have been documented in the HPI. ROS Other: All systems not noted in ROS Statement are negative. Past Medical History Past Medical History: Atrial Fibrillation, Coronary Artery Disease (CAD), Heart Failure, Diabetes Mellitus, GERD/Reflux, Hyperlipidemia, Hypertension, Liver Disease, Pneumonia, Syncope Additional Past Medical History / Comment(s): Hx pneumonia yrs ago. Hx kidney stones. Diet controlled diabetic (pt denies diabetes 02/02/25). Seasonal allergies. Left internal carotid artery stenosis. Cirrhosis of liver. No menses in 4 1/2 yrs, states body does not make enough Estrogen. Recurrent pleural effusions. Pericardial effusion, bilateral breast abscesses for the past 5 years History of Any Multi-Drug Resistant Organisms: None Reported Past Surgical History: Appendectomy, Breast Surgery, Cholecystectomy, Coronary Bypass/CABG, Heart Catheterization With Stent, Orthopedic Surgery, Tubal Ligation Additional Past Surgical History / Comment(s): Right wrist carpal tunnel surgery, dental surgery- teeth removed, left breast abcess I&D X3, right breast abcess I&D X2, left ankle surgery, triple CABG 08/09/2024, multiple thoracentesis. Cardiac sents x2 and bilateral carotid stents 08/09/24. Left VATS with talc pleurodesis and placement of left-sided pleurx catheter 09/29/[address] Ortiz; subxiphoid pericardial window 10/04/2024 Past Anesthesia/Blood Transfusion Reactions: No Reported Reaction, Family History of Problems w/ Anesthesia Additional Past Anesthesia/Blood Transfusion Reaction / Comment(s): No blood transfusion to date. Mom stopped breathing during a surgery and was resuscitated. Date of Last Stent Placement:: 07/30/24 Past Psychological History: Anxiety, Bipolar, Depression Smoking Status: Former smoker Past Alcohol Use History: None Reported Past Drug Use History: None Reported - Past Family History Mother Family Medical History: Cancer Additional Family Medical History / Comment(s): schizoaffective disorder, uteral and cervical cancer Father History Unknown: Yes Family Medical History: Unable to Obtain Additional Family Medical History / Comment(s): Patient did not know her father General Exam Limitations: no limitations General appearance: alert, in no apparent distress Head exam: Present: atraumatic, normocephalic, normal inspection Eye exam: Present: normal appearance, EOMI Neck exam: Present: normal inspection. Absent: meningismus Respiratory exam: Present: normal lung sounds bilaterally, other (tenderness of the B/L breasts). Absent: respiratory distress, wheezes, rales, rhonchi, stridor Cardiovascular Exam: Present: regular rate, normal rhythm, normal heart sounds. Absent: systolic murmur, diastolic murmur, rubs, gallop, clicks Neurological exam: Present: alert, oriented X3 Psychiatric exam: Present: normal affect, normal mood Skin exam: Present: warm, dry, normal color Course Vital Signs 03/24/25 03/24/25 03/24/25 15:43 17:08 18:54 Temperature 100.7 F H 100.8 F H 99.2 F Pulse Rate 82 78 68 Respiratory 18 19 19 Rate Blood Pressure 130/82 131/74 127/60 O2 Sat by Pulse 98 99 97 Oximetry 03/24/25 03/24/25 19:57 20:03 Temperature 98.1 F Pulse Rate 66 Respiratory 19 Rate Blood Pressure 114/62 O2 Sat by Pulse 98 Oximetry Medical Decision Making - Medical Decision Making Was pt. sent in by a medical professional or institution (, PA, QUALITY REVIEWER, urgent care, hospital, or custodial...) When possible be specific @ -No Did you speak to anyone other than the patient for history (EMS, parent, family, police, friend...)? What history was obtained from this source @ -No Did you review nursing and triage notes (agree or disagree)? Why? @ -I reviewed and agree with nursing and triage notes Were old charts reviewed (outside hosp., previous admission, EMS record, old EKG, old radiological studies, urgent care reports/EKG's, custodial records)? Report findings @ -No old charts were reviewed Differential Diagnosis (chest pain, altered mental status, abdominal pain women, abdominal pain men, vaginal bleeding, weakness, fever, dyspnea, syncope, headache, dizziness, GI bleed, back pain, seizure, CVA, palpatations, mental health, musculoskeletal)? @ - MDM Differential Fever: Pneumonia, viral URI, endocarditis, myocarditis, pericarditis, otitis, sinusitis, peritonsillar Abscess, retropharyngeal Abscess, epiglottitis, peritonitis, appendicitis, Jenniffer cystitis, diverticulitis, hepatitis, colitis, UTI, PID, TOA, pyelonephritis, prostatitis, epididymitis, meningitis, encephalitis, pulmonary embolism, CVA, thyroid storm, pancreatitis, adrenal crisis, cavernous sinus thrombosis… this is not meant to be an all-inclusive list. EKG interpreted by me (3pts min.). @ -As above X-rays interpreted by me (1pt min.). @ -None done CT interpreted by me (1pt min.). @ -Chest CT shows postsurgical changes in the bilateral breast. Some underlying hemorrhage may be present. No suspicious large well-defined hematoma or abscess by CT is evident U/S interpreted by me (1pt. min.). @ -None done What testing was considered but not performed or refused? (CT, X-rays, U/S, labs)? Why? @ -None What meds were considered but not given or refused? Why? @ -None Did you discuss the management of the patient with other professionals (prof mi i.eVi Christy, PA, QUALITY REVIEWER, lab, RT, psych nurse, social media marketing specialist, rehab assistant, teacher, biological technical officer, case packer and sealer)? Give summary @ -No Was smoking cessation discussed for >3mins.? @ -No Was critical care preformed (if so, how long)? @ -No Were there social determinants of health that impacted care today? How? (Homelessness, low income, unemployed, alcoholism, drug addiction, transportation, low edu. Level, literacy, decrease access to med. care, snf, rehab)? @ -No Was there de-escalation of care discussed even if they declined (Discuss DNR or withdrawal of care, Hospice)? DNR status @ -No What co-morbidities impacted this encounter? (DM, HTN, Smoking, COPD, CAD, Cancer, CVA, ARF, Chemo, Hep., AIDS, mental health diagnosis, sleep apnea, morbid obesity)? @ -None Was patient admitted / discharged? Hospital course, mention meds given and route, prescriptions, significant lab abnormalities, going to OR and other pertinent info. @ -50-year-old female presenting with chief complaint of bilateral breast pain. She had surgery on 03/[address] Familia Mendez, she had the bilateral nipples and milk ducts removed. She states that today she had sudden increase in her breast pain. She also had a fever. History and physical examination are conducted. The surgical site is clean with no signs of erythema induration or discharge. Patient is given pain medication and antipyretics. No leukocytosis or anemia. There is transaminitis present, may be due to the anesthesia. Urine shows no signs of infection. CT of the chest shows postsurgical changes with some hemorrhage present but no underlying fluid collection. On reassessment patient reports that her pain is under better control at this time. She is educated on today's findings. As a precaution she will be started on Keflex in the event this is a very early postoperative cellulitis.. She will follow-up with her surgeon. Follow-up with PCP. Report back to ER with any new or worsening symptoms. Discussed return parameters and answered all questions. Patient conveyed verbal understanding and agreed to the plan. I discussed this case in detail with my attending Dr. Estevez Undiagnosed new problem with uncertain prognosis? @ -No Drug Therapy requiring intensive monitoring for toxicity (Heparin, Nitro, Insulin, Cardizem)? @ -No Were any procedures done? @ -No Diagnosis/symptom? @ -Fever Acute, or Chronic, or Acute on Chronic? @ -Acute Uncomplicated (without systemic symptoms) or Complicated (systemic symptoms)? @ -Uncomplicated Side effects of treatment? @ -No Exacerbation, Progression, or Severe Exacerbation? @ -No Poses a threat to life or bodily function? How? (Chest pain, [place], [place], pneumonia, PE, COPD, DKA, ARF, appy, cholecystitis, CVA, Diverticulitis, Homicidal, Suicidal, threat to staff... and all critical care pts) @ -Unlikely - Lab Data Result diagrams: 03/24/25 16:54 03/24/25 16:54 Lab Results 03/24/25 03/24/25 03/24/25 Range/Units 16:54 16:54 16:54 WBC 8.54 (4.50-10.00) 10*3/uL RBC 4.58 (4.10-5.20) 10*6/uL Hgb 12.0 (12.0-15.0) g/dL Hct 38.0 (37.2-46.3) % MCV 83.0 (80.0-97.0) fL MCH 26.2 L (27.0-32.0) pg MCHC 31.6 L (32.0-37.0) g/dL Plt Count 108 L (140-440) 10*3/uL Immature Gran % (Auto) 0.2 % Neutrophils % 75.8 % Lymphocytes % 14.2 % Monocytes % 8.2 % Eosinophils % 1.1 % Basophils % 0.5 % Immature Gran # 0.02 (0.00-0.04) 10*3/uL Neutrophils # 6.48 (1.80-7.70) 10*3/uL Lymphocytes # 1.21 (0.90-5.00) 10*3/uL Monocytes # 0.70 (0.20-1.00) 10*3/uL Eosinophils # 0.09 (0.04-0.35) 10*3/uL Basophils # 0.04 (0.00-0.10) 10*3/uL Manual Slide Review Performed Sodium 138 (137-145) mmol/L Potassium 4.5 (3.5-5.1) mmol/L Chloride 105 (98-107) mmol/L Carbon Dioxide 24 (22-30) mmol/L Anion Gap 9 mmol/L BUN 13 (7-17) mg/dL Creatinine 0.71 (0.52-1.04) mg/dL Est GFR (CKD-EPI)AfAm >90 (>60 ml/min/1.73 sqM) Est GFR (CKD-EPI)NonAf >90 (>60 ml/min/1.73 sqM) Glucose 152 H (74-99) mg/dL Plasma Lactic Acid Tristin 1.8 (0.7-2.0) mmol/L Calcium 8.6 (8.4-10.2) mg/dL Total Bilirubin 1.2 (0.2-1.3) mg/dL AST 59 H (14-36) U/L ALT 45 H (4-34) U/L Alkaline Phosphatase 164 H (38-126) U/L Total Protein 6.9 (6.3-8.2) g/dL Albumin 3.6 (3.5-5.0) g/dL Urine Color Urine Appearance (Clear) Urine pH (5.0-8.0) Ur Specific [place] (1.001-1.035) Urine Protein (Negative) Urine Glucose (UA) (Negative) Urine Ketones (Negative) Urine Blood (Negative) Urine Nitrite (Negative) Urine Bilirubin (Negative) Urine Urobilinogen (<2.0) mg/dL Ur Leukocyte Esterase (Negative) 03/24/25 Range/Units 19:43 WBC (4.50-10.00) 10*3/uL RBC (4.10-5.20) 10*6/uL Hgb (12.0-15.0) g/dL Hct (37.2-46.3) % MCV (80.0-97.0) fL MCH (27.0-32.0) pg MCHC (32.0-37.0) g/dL Plt Count (140-440) 10*3/uL Immature Gran % (Auto) % Neutrophils % % Lymphocytes % % Monocytes % % Eosinophils % % Basophils % % Immature Gran # (0.00-0.04) 10*3/uL Neutrophils # (1.80-7.70) 10*3/uL Lymphocytes # (0.90-5.00) 10*3/uL Monocytes # (0.20-1.00) 10*3/uL Eosinophils # (0.04-0.35) 10*3/uL Basophils # (0.00-0.10) 10*3/uL Manual Slide Review Sodium (137-145) mmol/L Potassium (3.5-5.1) mmol/L Chloride (98-107) mmol/L Carbon Dioxide (22-30) mmol/L Anion Gap mmol/L BUN (7-17) mg/dL Creatinine (0.52-1.04) mg/dL Est GFR (CKD-EPI)AfAm (>60 ml/min/1.73 sqM) Est GFR (CKD-EPI)NonAf (>60 ml/min/1.73 sqM) Glucose (74-99) mg/dL Plasma Lactic Acid Tristin (0.7-2.0) mmol/L Calcium (8.4-10.2) mg/dL Total Bilirubin (0.2-1.3) mg/dL AST (14-36) U/L ALT (4-34) U/L Alkaline Phosphatase (38-126) U/L Total Protein (6.3-8.2) g/dL Albumin (3.5-5.0) g/dL Urine Color Colorless Urine Appearance Clear (Clear) Urine pH 5.5 (5.0-8.0) Ur Specific [place] 1.050 H (1.001-1.035) Urine Protein Negative (Negative) Urine Glucose (UA) 4+ H (Negative) Urine Ketones Negative (Negative) Urine Blood Negative (Negative) Urine Nitrite Negative (Negative) Urine Bilirubin Negative (Negative) Urine Urobilinogen <2.0 (<2.0) mg/dL Ur Leukocyte Esterase Negative (Negative) Disposition Clinical Impression: Fever Disposition: HOME SELF-CARE Condition: Fair Instructions (If sedation given, give patient instructions): Fever in Adults (ED) Additional Instructions: Follow-up with your surgeon. Report back to the ER with any new or worsening symptoms. Prescriptions: Cephalexin [Keflex] 500 mg PO Q6HR 7 Days #28 cap Is patient prescribed a controlled substance at d/c from ED?: No Referrals: Sara Velarde MD [Primary Care Provider] - 1-2 days Maren Fajardo MD [STAFF PHYSICIAN] - 1-2 days Time of Disposition: 20:24
[2025-03-24 17:11] VITALS: RESP 19
[2025-03-24] MEDS: ACETAMINOPHEN TAB 500 MG TAB PO STA (17:13)
[2025-03-24] MEDS: SODIUM CHLORIDE 0.9% 1,000 ML IV ONE (17:14)
[2025-03-24] MEDS: HYDROmorphone 1 MG/ML 1 ML SYRINGE IVP STA (17:14)
[2025-03-24 17:16] LABS: ALT 45 U/L (4-34); African American GFR (CKD) >90 (>60 ml/min/1.73 sqM); Anion Gap 9 mmol/L; Blood Urea Nitrogen 13 mg/dL (7-17); Calcium 8.6 mg/dL (8.4-10.2); Carbon Dioxide 24 mmol/L (22-30); Chloride 105 mmol/L (98-107); Glucose 152 mg/dL (74-99); Non-African American GFR(CKD) >90 (>60 ml/min/1.73 sqM); Sodium 138 mmol/L (137-145); Total Bilirubin 1.2 mg/dL (0.2-1.3)
[2025-03-24 17:21] LABS: AST 59 U/L (14-36); Albumin 3.6 g/dL (3.5-5.0); Alkaline Phosphatase 164 U/L (38-126); Basophils # (A) 0.04 10*3/uL (0.00-0.10); Basophils % (A) 0.5 %; Eosinophils # (A) 0.09 10*3/uL (0.04-0.35); Eosinophils % (A) 1.1 %; Lymphocytes # (A) 1.21 10*3/uL (0.90-5.00); Lymphocytes % (A) 14.2 %; MCH 26.2 pg (27.0-32.0); MCHC 31.6 g/dL (32.0-37.0); Monocytes % (A) 8.2 %; Neutrophils # (A) 6.48 10*3/uL (1.80-7.70); Neutrophils % (A) 75.8 %; Platelet Count 108 10*3/uL (140-440); Potassium 4.5 mmol/L (3.5-5.1); RBC 4.58 10*6/uL (4.10-5.20); RDW 18.1 % (11.5-14.5); Total Protein 6.9 g/dL (6.3-8.2); WBC 8.54 10*3/uL (4.50-10.00)
[2025-03-24] MEDS: ONDANSETRON 4 MG/2 ML VIAL IVP STA (18:52)
--- NOTE | 2025-03-24 19:08 | CT ---
EXAMINATION TYPE: CT chest w con DATE OF EXAM: 03/24/2025 6:07 PM COMPARISON: 02/19/2025 CLINICAL INDICATION: Female, 50 years old with history of breast surgery comps, Pt comes to with c omplaint of bi-lat breast pain. Pt states "I had both nipples and milk duds removed on Friday by Dr Familia miles". TECHNIQUE: Axial images were obtained at 5 mm thick sections. Reconstructed images are reviewed on [employer] computer in the coronal plane. Contrast used:100ml mL of Isovue 300 with IV Contrast, (none if empty) Oral contrast used: (none if empty) CT DLP: 518.9 mGycm, Automated exposure control for dose reduction was used. FINDINGS: Portion of the thyroid visualized is normal. Sternotomy wires are present. Subcutaneous air is present within the bilateral breasts. This can be postsurgical in nature. Other a ppears to be some increased density within the bilateral breasts which may reflect some postsurgical hemorrhage measures approximately 3 cm posterior lateral right approximately 3.7 cm on the left later al No suspicious lung nodules or focal infiltrates are present. No pneumothorax is evident. No chest wal l abnormality is identified. No enlarged mediastinal or hilar adenopathy is evident. The ascending aorta diameter at the level o f the main pulmonary artery is 3.0 cm. The main pulmonary artery diameter at the bifurcation is 2.4 cm. Mild coronary artery calcifications present. Limited CT sections are obtained through the upper abdomen. Spleen appears prominent measuring 14.3 c m. Normal less than 12.5 cm.. Small cyst may be in the lateral spleen. Mild fatty infiltration liver may be present. IMPRESSION: 1. Postsurgical changes in the bilateral breasts. Some underlying hemorrhage may be present. No suspi cious large well-defined hematoma or abscess by CT is evident. [facility], , 03/24/2025 7:06 PM
[2025-03-24 19:53] LABS: Appearance,Urine Clear (Clear); Bilirubin,Urine Negative (Negative); Blood,Urine Negative (Negative); Color,Urine Colorless; Glucose,Urine (UA) 4+ (Negative); Ketones,Urine Negative (Negative); Leukocyte Esterase,Urine Negative (Negative); Nitrite,Urine Negative (Negative); PH, Urine 5.5 (5.0-8.0); Protein,Urine Negative (Negative); Urobilinogen,Urine <2.0 mg/dL (<2.0)
[2025-03-24 19:59] VITALS: BP 114/62; PULSE 66
[2025-03-24] MEDS: MORPHINE SULFATE 4 MG/ML SYRINGE IVP STA (20:00)
[2025-03-24] MEDS: KETOROLAC 15 MG/ML 1 ML VIAL IVP STA (20:00)
[2025-03-24 20:03] VITALS: TEMP 98.1
[2025-03-24] MEDS: ACET/COD 300 MG/30 MG STARTER PACK 6 TAB BTL PO STA (20:37)
== END 2025-03-24 20:42 | disposition home or self-care (01) ==
LOC: EC 15:41
DX: R50.9 Fever, unspecified (principal); Z87.891 Personal history of nicotine dependence; Z88.8 Allergy status to other drugs, medicaments and biological substances
CPT/HCPCS: 36415; 80053; 83605; 85025; 81003; 87040; 71260; 99283; 96374; 96375; 96361 ×2; J2270; J2405; J1171; J1885; Q9967

== ENCOUNTER 2025-03-25 18:10 | Observation (INO) | payer OTHER ==
--- NOTE | 2025-03-25 19:01 | ED ---
General Adult HPI - General Chief complaint: Chest Pain Stated complaint: Chest pain Time Seen by Provider: 03/25/25 18:37 Source: patient, EMS Mode of arrival: EMS Limitations: no limitations - History of Present Illness Initial comments: Dictation was produced using [employer] dictation software. please excuse any grammatical, word or spelling errors. Chief Complaint: 50-year-old female with chest pain History of Present Illness: Patient 50-year-old female presents emergency department chest pain. Patient has multiple comorbidities. States that earlier this week she had breast surgery for treatment of frequent breast abscesses. Patient states today she started to have some left upper chest pain that radiated down her arm. States that also radiated to her neck and jaw. Denies any associate diaphoresis or nausea. The ROS documented in this emergency department record has been reviewed and confirmed by me. Those systems with pertinent positive or negative responses have been documented in the HPI. All other systems are other negative and/or noncontributory. - Related Data Home Medications Medication Instructions Recorded Confirmed Atorvastatin Calcium [Lipitor] 40 mg PO DAILY 09/15/24 03/17/25 Gabapentin [Neurontin] 300 mg PO BID 09/23/24 03/17/25 Metoprolol Tartrate [Lopressor] 25 mg PO BID 11/01/24 03/17/25 Omeprazole 20 mg PO DAILY 12/07/24 03/17/25 Empagliflozin [Jardiance] 10 mg PO DAILY 12/15/24 03/17/25 Ferrous Sulfate [Iron (65 MG 325 mg PO DAILY 12/15/24 03/17/25 Elemental)] Midodrine HCl [ProAmantine] 2.5 mg PO AC-TID 12/15/24 03/17/25 Nitroglycerin Sl Tabs [Nitrostat] 0.4 mg SL Q5M PRN 12/15/24 03/17/25 traMADol HCL 50 mg PO Q4-6H PRN 02/02/25 03/17/25 Ergocalciferol [Vitamin D2 (1250 1,250 mcg PO WEEKLY 03/10/25 03/17/25 Mcg = 51078 Iu)] Amoxic-Pot Clav 875-125Mg 1 tab PO Q12HR 03/17/25 03/17/25 [Augmentin 875-125] Previous Rx's Medication Instructions Recorded Aspirin 81 mg PO DAILY tab 10/01/24 Acetaminophen Tab [Tylenol] 650 mg PO Q6HR PRN #90 tab 12/15/24 oxyCODONE HCL [OxyIR] 5 mg PO Q6H PRN 3 Days #5 tab 03/22/25 Cephalexin [Keflex] 500 mg PO Q6HR 7 Days #28 cap 03/24/25 Allergies Allergy/AdvReac Type Severity Reaction Status Date / Time capsaicin Allergy Rash/Hives/ Verified 03/24/25 15:45 Swelling Review of Systems ROS Statement: Those systems with pertinent positive or pertinent negative responses have been documented in the HPI. ROS Other: All systems not noted in ROS Statement are negative. Past Medical History Past Medical History: Atrial Fibrillation, Coronary Artery Disease (CAD), Heart Failure, Diabetes Mellitus, GERD/Reflux, Hyperlipidemia, Hypertension, Liver Disease, Pneumonia, Syncope Additional Past Medical History / Comment(s): Hx pneumonia yrs ago. Hx kidney stones. Diet controlled diabetic (pt denies diabetes 02/02/25). Seasonal allergies. Left internal carotid artery stenosis. Cirrhosis of liver. No menses in 4 1/2 yrs, states body does not make enough Estrogen. Recurrent pleural effusions. Pericardial effusion, bilateral breast abscesses for the past 5 years History of Any Multi-Drug Resistant Organisms: None Reported Past Surgical History: Appendectomy, Breast Surgery, Cholecystectomy, Coronary Bypass/CABG, Heart Catheterization With Stent, Orthopedic Surgery, Tubal Ligation Additional Past Surgical History / Comment(s): Right wrist carpal tunnel surgery, dental surgery- teeth removed, left breast abcess I&D X3, right breast abcess I&D X2, left ankle surgery, triple CABG 08/09/2024, multiple thoracentesis. Cardiac sents x2 and bilateral carotid stents 08/09/24. Left VATS with talc pleurodesis and placement of left-sided pleurx catheter 09/29/[address] Ortiz; subxiphoid pericardial window 10/04/2024 Past Anesthesia/Blood Transfusion Reactions: No Reported Reaction, Family History of Problems w/ Anesthesia Additional Past Anesthesia/Blood Transfusion Reaction / Comment(s): No blood transfusion to date. Mom stopped breathing during a surgery and was resuscitated. Date of Last Stent Placement:: 07/30/24 Past Psychological History: Anxiety, Bipolar, Depression Smoking Status: Former smoker Past Alcohol Use History: None Reported Past Drug Use History: None Reported - Past Family History Mother Family Medical History: Cancer Additional Family Medical History / Comment(s): schizoaffective disorder, uteral and cervical cancer Father History Unknown: Yes Family Medical History: Unable to Obtain Additional Family Medical History / Comment(s): Patient did not know her father General Exam - General Exam Comments Initial Comments: PHYSICAL EXAM: General Impression: Alert and oriented x3, not in acute distress HEENT: Normocephalic atraumatic, extra-ocular movements intact, pupils equal and reactive to light bilaterally, mucous membranes moist. Cardiovascular: Heart regular rate and rhythm Chest: Able to complete full sentences, no retractions, no tachypnea Abdomen: abdomen soft, non-tender, non-distended, no organomegaly Musculoskeletal: Pulses present and equal in all extremities, no peripheral edema Motor: no focal deficits noted Neurological: CN II-XII grossly intact, no focal motor or sensory deficits noted Skin: Intact with no visualized rashes Psych: Normal affect and mood Limitations: no limitations Course Vital Signs 03/25/25 03/25/25 18:20 19:23 Temperature 98.8 F Pulse Rate 84 Respiratory 18 20 Rate Blood Pressure 177/88 122/88 O2 Sat by Pulse 97 Oximetry EKG Findings - EKG Comments: EKG Findings:: My EKG interpretation: Ventricular rate 76, sinus rhythm, CA interval 145, QRS 80, QTc 395. No CA prolongation, no QTC prolongation, no ST or T-wave changes noted. Overall, this EKG is unremarkable Medical Decision Making - Medical Decision Making Was pt. sent in by a medical professional or institution (, PA, RECORDS SECTION SUPERVISOR, urgent care, hospital, or half-way...) When possible be specific @ -No Did you speak to anyone other than the patient for history (EMS, parent, family, police, friend...)? What history was obtained from this source @ -No Did you review nursing and triage notes (agree or disagree)? Why? @ -Most recent cath report showed coronary artery disease Were old charts reviewed (outside hosp., previous admission, EMS record, old EKG, old radiological studies, urgent care reports/EKG's, half-way records)? Report findings @ -No old charts were reviewed Differential Diagnosis (chest pain, altered mental status, abdominal pain women, abdominal pain men, vaginal bleeding, musculoskeletal, weakness, fever, dyspnea, syncope, headache, dizziness, GI bleed, back pain, seizure, CVA, palpat ations, mental health)? @ -Differential Chest Pain: Stable Angina, Unstable Angina, STEMI, NSTEMI Aortic Dissection, Pneumothorax, Musculoskeletal, Esophageal Spasm GERD, Cholecystitis, Pancreatitis, Zoster, this is not meant to be an all-inclusive list. EKG interpreted by me (3pts min.). @ -None done X-rays interpreted by me (1pt min.). @ -Chest x-ray is nonacute CT interpreted by me (1pt min.). @ -None done U/S interpreted by me (1pt. min.). @ -None done What testing was considered but not performed or refused? (CT, X-rays, U/S, labs)? Why? @ -None What meds were considered but not given or refused? Why? @ -None Was smoking cessation discussed for >3mins.? @ -No Were there social determinants of health that impacted care today? How? (Homelessness, low income, unemployed, alcoholism, drug addiction, transportation, low edu. Level, literacy, decrease access to med. care, penitentiary, rehab)? @ -No Was there de-escalation of care discussed even if they declined (Discuss DNR or withdrawal of care, Hospice)? DNR status @ -No What co-morbidities impacted this encounter? (DM, HTN, Smoking, COPD, CAD, Cancer, CVA, ARF, Chemo, Hep., AIDS, mental health diagnosis, sleep apnea, morbid obesity)? @ -Coronary artery disease Was patient admitted / discharged? Hospital course, mention meds given and route, prescriptions, significant lab abnormalities, going to OR and other pertinent info. @ -50-year-old female with atypical chest pain typical features. Vital signs stable she has history of coronary artery disease. Vital signs stable. EKG is unremarkable. Laboratory evaluation unremarkable. Patient reevaluated bedside 8:30 PM found to be stable to condition is not showing any signs of distress. Given patient's cardiac history she will be admitted consultation cardiology. Patient given aspirin. Did you discuss the management of the patient with other professionals (pro fessionals i.e. , PA, RECORDS SECTION SUPERVISOR, lab, RT, psych nurse, social worker masters, internet sourcer, teacher, sergeant of officers, medical case manager)? Give summary @ -Case discussed with hospitalist for admission Was critical care preformed (if so, how long)? @ -No Undiagnosed new problem with uncertain prognosis? @ -No Drug Therapy requiring intensive monitoring for toxicity (Heparin, Nitro, Insulin, Cardizem)? @ -No Were any procedures done? @ -No Diagnosis/symptom? Acute, or Chronic, or Acute on Chronic? Uncomplicated (wi thout systemic symptoms) or Complicated (systemic symptoms)? @ -Chest pain Side effects of treatment? @ -No Exacerbation, Progression, or Severe Exacerbation? @ -No Poses a threat to life or bodily function? How? (Chest pain, [place], [place], pneumonia, PE, COPD, DKA, ARF, appy, cholecystitis, CVA, Diverticulitis, Homicidal, Suicidal, threat to staff... and all critical care pts) @ -yes - Lab Data Result diagrams: 03/25/25 19:12 03/25/25 19:12 Lab Results 03/25/25 03/25/25 03/25/25 Range/Units 19:12 19:12 19:12 WBC 7.36 (4.50-10.00) 10*3/uL RBC 4.14 (4.10-5.20) 10*6/uL Hgb 10.9 L (12.0-15.0) g/dL Hct 34.4 L (37.2-46.3) % MCV 83.1 (80.0-97.0) fL MCH 26.3 L (27.0-32.0) pg MCHC 31.7 L (32.0-37.0) g/dL Plt Count 91 L (140-440) 10*3/uL Immature Gran % (Auto) 0.1 % Neutrophils % 69.4 % Lymphocytes % 18.6 % Monocytes % 9.8 % Eosinophils % 1.6 % Basophils % 0.5 % Immature Gran # 0.01 (0.00-0.04) 10*3/uL Neutrophils # 5.10 (1.80-7.70) 10*3/uL Lymphocytes # 1.37 (0.90-5.00) 10*3/uL Monocytes # 0.72 (0.20-1.00) 10*3/uL Eosinophils # 0.12 (0.04-0.35) 10*3/uL Basophils # 0.04 (0.00-0.10) 10*3/uL Manual Slide Review Performed PT 11.8 (10.0-12.5) sec INR 1.1 (<1.2) APTT 26.6 (22.0-30.0) sec Sodium 137 (137-145) mmol/L Potassium 4.4 (3.5-5.1) mmol/L Chloride 106 (98-107) mmol/L Carbon Dioxide 22 (22-30) mmol/L Anion Gap 9 mmol/L BUN 15 (7-17) mg/dL Creatinine 0.63 (0.52-1.04) mg/dL Est GFR (CKD-EPI)AfAm >90 (>60 ml/min/1.73 sqM) Est GFR (CKD-EPI)NonAf >90 (>60 ml/min/1.73 sqM) Glucose 138 H (74-99) mg/dL Calcium 8.7 (8.4-10.2) mg/dL Magnesium 1.7 (1.6-2.3) mg/dL Total Bilirubin 1.2 (0.2-1.3) mg/dL AST 48 H (14-36) U/L ALT 36 H (4-34) U/L Alkaline Phosphatase 146 H (38-126) U/L Troponin I (0.000-0.034) ng/mL Total Protein 6.5 (6.3-8.2) g/dL Albumin 3.2 L (3.5-5.0) g/dL 04/25/25 Range/Units 19:12 WBC (4.50-10.00) 10*3/uL RBC (4.10-5.20) 10*6/uL Hgb (12.0-15.0) g/dL Hct (37.2-46.3) % MCV (80.0-97.0) fL MCH (27.0-32.0) pg MCHC (32.0-37.0) g/dL Plt Count (140-440) 10*3/uL Immature Gran % (Auto) % Neutrophils % % Lymphocytes % % Monocytes % % Eosinophils % % Basophils % % Immature Gran # (0.00-0.04) 10*3/uL Neutrophils # (1.80-7.70) 10*3/uL Lymphocytes # (0.90-5.00) 10*3/uL Monocytes # (0.20-1.00) 10*3/uL Eosinophils # (0.04-0.35) 10*3/uL Basophils # (0.00-0.10) 10*3/uL Manual Slide Review PT (10.0-12.5) sec INR (<1.2) APTT (22.0-30.0) sec Sodium (137-145) mmol/L Potassium (3.5-5.1) mmol/L Chloride (98-107) mmol/L Carbon Dioxide (22-30) mmol/L Anion Gap mmol/L BUN (7-17) mg/dL Creatinine (0.52-1.04) mg/dL Est GFR (CKD-EPI)AfAm (>60 ml/min/1.73 sqM) Est GFR (CKD-EPI)NonAf (>60 ml/min/1.73 sqM) Glucose (74-99) mg/dL Calcium (8.4-10.2) mg/dL Magnesium (1.6-2.3) mg/dL Total Bilirubin (0.2-1.3) mg/dL AST (14-36) U/L ALT (4-34) U/L Alkaline Phosphatase (38-126) U/L Troponin I <0.012 (0.000-0.034) ng/mL Total Protein (6.3-8.2) g/dL Albumin (3.5-5.0) g/dL Disposition Clinical Impression: Chest pain Disposition: ADMITTED IP TO THIS [facility] Condition: Fair Referrals: Sara Velarde MD [Primary Care Provider] - 1-2 days Decision Time: 20:39
[2025-03-25] MEDS: HYDROmorphone 2 MG/ML 1 ML SYRINGE IVP STA ×2 (19:17→21:11)
[2025-03-25 19:27] LABS: Basophils # (A) 0.04 10*3/uL (0.00-0.10); Basophils % (A) 0.5 %; Eosinophils # (A) 0.12 10*3/uL (0.04-0.35); Eosinophils % (A) 1.6 %; HCT 34.4 % (37.2-46.3); HGB 10.9 g/dL (12.0-15.0); Lymphocytes # (A) 1.37 10*3/uL (0.90-5.00); Lymphocytes % (A) 18.6 %; MCH 26.3 pg (27.0-32.0); MCHC 31.7 g/dL (32.0-37.0); MCV 83.1 fL (80.0-97.0); Monocytes # (A) 0.72 10*3/uL (0.20-1.00); Monocytes % (A) 9.8 %; Neutrophils % (A) 69.4 %; RBC 4.14 10*6/uL (4.10-5.20); RDW 17.6 % (11.5-14.5); WBC 7.36 10*3/uL (4.50-10.00)
--- NOTE | 2025-03-25 19:36 | XR ---
EXAMINATION TYPE: XR chest 2V DATE OF EXAM: 03/25/2025 7:31 PM COMPARISON: 03/09/2025 CLINICAL INDICATION: Female, 50 years old with history of Chest Pain, Chest pain TECHNIQUE: XR chest 2V views of the chest are obtained. FINDINGS: There is no focal air space opacity. No evidence for pneumothorax. No pleural effusion. The cardiac silhouette size is within normal limits. Changes of median sternotomy and CABG. Pulmonary venous engorgement without overt failure. The osseous structures are grossly intact. IMPRESSION: 1. Pulmonary venous engorgement without overt failure. [facility], , 03/25/2025 7:34 PM
[2025-03-25 19:37] LABS: INR 1.1 (<1.2); Partial Thromboplastin Time 26.6 sec (22.0-30.0); Prothrombin Time 11.8 sec (10.0-12.5)
[2025-03-25 19:44] LABS: ALT 36 U/L (4-34); African American GFR (CKD) >90 (>60 ml/min/1.73 sqM); Albumin 3.2 g/dL (3.5-5.0); Anion Gap 9 mmol/L; Blood Urea Nitrogen 15 mg/dL (7-17); Calcium 8.7 mg/dL (8.4-10.2); Carbon Dioxide 22 mmol/L (22-30); Chloride 106 mmol/L (98-107); Glucose 138 mg/dL (74-99); Non-African American GFR(CKD) >90 (>60 ml/min/1.73 sqM); Sodium 137 mmol/L (137-145); Total Bilirubin 1.2 mg/dL (0.2-1.3); Total Protein 6.5 g/dL (6.3-8.2)
[2025-03-25 19:45] LABS: AST 48 U/L (14-36); Alkaline Phosphatase 146 U/L (38-126); Magnesium 1.7 mg/dL (1.6-2.3); Potassium 4.4 mmol/L (3.5-5.1)
[2025-03-25 20:13] LABS: Platelet Count 91 10*3/uL (140-440)
[2025-03-25] MEDS ORDERED: NITROGLYCERIN SL TABS 0.4 MG TAB SUBLINGUAL PRN (20:35)
[2025-03-25] MEDS: ASPIRIN 81 MG PO STA (20:42)
[2025-03-26] MEDS: HYDROcodone/APAP 5-325MG 1 EACH TAB PO PRN (01:27)
[2025-03-26] MEDS: HYDROmorphone 0.5 MG/0.5 ML SYRINGE IVP PRN (06:05)
[2025-03-26] MEDS: ASPIRIN 325 MG TAB PO SCH (09:13)
[2025-03-26] MEDS: MIDODRINE 5 MG TAB PO SCH (11:13)
[2025-03-26] MEDS: ATORVASTATIN 40 MG TAB PO SCH (11:14)
[2025-03-26] MEDS: METOPROLOL TARTRATE 25 MG TAB PO SCH (11:14)
[2025-03-26] MEDS: GABAPENTIN 300 MG CAP PO SCH (11:14)
[2025-03-26] MEDS: FERROUS SULFATE 325 MG TAB PO SCH (11:20)
[2025-03-26] MEDS: PANTOPRAZOLE 40 MG TABLET PO SCH (11:21)
[2025-03-26 11:47] LABS: Chol/HDL Ratio 2.33 Ratio; LDL Cholesterol,Calculated 49.6 mg/dL (0.0-131.0); VLDL Calculation 16.14 mg/dL (5.00-40.00)
[2025-03-26] MEDS ORDERED: DEXTROSE 50% SYRINGE 50 ML IVP PRN ×2 (12:47)
--- NOTE | 2025-03-26 13:00 | P.HPIM ---
History of Present Illness H&P Date: 03/26/25 History of present illness; Patient is a 50 year old female with past medical history of atrial fibri llation, diabetes mellitus, GERD, hyperlipidemia, hypertension, CAD with CABG 08/09/2024,bilateral carotid stents 08/09/2024, left VATS with talc pleurodesis and placement also left-sided Pleurx catheter 09/29/2024, subxiphoid pericardial window 10/04/24 presents with chest pain. She states that earlier this week she had breast surgery for treatment of frequent breast abscesses. Patient states yesterday she started to have some left upper chest pain that radiated down her arm, her left neck and jaw. She now denies CP and endorses dull pain under left arm, which is worse with ambulation, and improves with rest. Pain is not related to arm movement. No stated tenderness. Denies any associate diaphoresis or nausea. REVIEW OF SYSTEMS: Pertinent positives and negatives noted in HPI. PHYSICAL EXAMINATION: Vitals reviewed GENERAL: Resting comfortably in bed. Obese. Appears older than stated age. CARDIOVASCULAR: S1 and S2 present. No murmurs, rubs, or gallops. PULMONARY: Chest is clear to auscultation, no wheezing, rhonchi, or crackles. ABDOMEN: Soft, nontender, nondistended. No palpable organomegaly. EXTREMITIES: No apparent cyanosis, clubbing. No pedal edema. NEUROLOGICAL: Alert and oriented. Gross neurological examination with no apparent focal deficits. ER findings: Hemoglobin 10.9, platelets 91, glucose 138, AST 48, ALT 36, ALP 146, troponin <0.012 3x, lipid panel is WNL Chest x-ray with pulmonary venous engorgement without overt failure EKG independently interpreted sinus rhythm rate 76, QTc 395, no ST depressions or elevations noted, no T wave abnormalities noted Assessment and Plan: #Atypical Chest pain #Hx of CABG 08/2024 - Troponins negative 3x continue cardiac monitoring - Given aspirin 325mg, continue daily - Begin atorvastatin 40 HS - Cardiology consulted #Chronic bicytopenia #Chronic transaminitis Asymptomatic at this time #Diabetes mellitus, type 2 Holding oral medications Begin Accu-Cheks and low-dose sliding scale, monitor for hypoglycemia Chronic Medical Conditions Atrial fibrillation Diabetes mellitus GERD Hyperlipidemia Hypertension CAD with CABG 08/09/2024 Bilateral carotid stents 08/09/2024 Left VATS with talc pleurodesis Hx of Left-sided Pleurx catheter 09/29/2024 Subxiphoid pericardial window 10/04/24 - resume home medications DVT ppx: Subq Lovenox 40 meq daily Code status: Full code F: P.O. E: Replete as needed N: Heart healthy diet A: Ambulatory Anticipated discharge place: Home Anticipated discharge time: [address] Vance seen patient with resident, present during exam, and agreed with findings. Dictation was produced using [employer] dictation software. Please excuse any grammatical, word or spelling errors. Attestation I have seen and examined this patient with my resident , discussed the same with the resident/YVETTE, and agree with the dictator's assessment and plan as written Dr. Camacho vance Past Medical History Past Medical History: Atrial Fibrillation, Coronary Artery Disease (CAD), Heart Failure, Diabetes Mellitus, GERD/Reflux, Hyperlipidemia, Hypertension, Liver Disease, Pneumonia, Syncope Additional Past Medical History / Comment(s): Hx pneumonia yrs ago. Hx kidney stones. Diet controlled diabetic (pt denies diabetes 02/02/25). Seasonal allergies. Left internal carotid artery stenosis. Cirrhosis of liver. No menses in 4 1/2 yrs, states body does not make enough Estrogen. Recurrent pleural effusions. Pericardial effusion, bilateral breast abscesses for the past 5 years History of Any Multi-Drug Resistant Organisms: None Reported Past Surgical History: Appendectomy, Breast Surgery, Cholecystectomy, Coronary Bypass/CABG, Heart Catheterization With Stent, Orthopedic Surgery, Tubal Ligation Additional Past Surgical History / Comment(s): Right wrist carpal tunnel s urgery, dental surgery- teeth removed, left breast abcess I&D X3, right breast abcess I&D X2, left ankle surgery, triple CABG 08/09/2024, multiple thoracentesis. Cardiac sents x2 and bilateral carotid stents 08/09/24. Left VATS with talc pleurodesis and placement of left-sided pleurx catheter 09/29/[address] Ortiz; subxiphoid pericardial window 10/04/2024 Past Anesthesia/Blood Transfusion Reactions: No Reported Reaction, Family History of Problems w/ Anesthesia Additional Past Anesthesia/Blood Transfusion Reaction / Comment(s): No blood transfusion to date. Mom stopped breathing during a surgery and was resuscitated. Date of Last Stent Placement:: 07/30/24 Past Psychological History: Anxiety, Bipolar, Depression Smoking Status: Former smoker Past Alcohol Use History: None Reported Past Drug Use History: None Reported - Past Family History Mother Family Medical History: Cancer Additional Family Medical History / Comment(s): schizoaffective disorder, uteral and cervical cancer Father History Unknown: Yes Family Medical History: Unable to Obtain Additional Family Medical History / Comment(s): Patient did not know her father Medications and Allergies Home Medications Medication Instructions Recorded Confirmed Type Atorvastatin Calcium [Lipitor] 40 mg PO DAILY 09/15/24 03/26/25 History Gabapentin [Neurontin] 300 mg PO BID 09/23/24 03/26/25 History Aspirin 81 mg PO DAILY tab 10/01/24 03/26/25 Rx Metoprolol Tartrate [Lopressor] 25 mg PO BID 11/01/24 03/26/25 History Omeprazole 20 mg PO DAILY 12/07/24 03/26/25 History Acetaminophen Tab [Tylenol] 650 mg PO Q6HR PRN #90 tab 12/15/24 03/26/25 Rx Empagliflozin [Jardiance] 10 mg PO DAILY 12/15/24 03/26/25 History Ferrous Sulfate [Iron (65 MG 325 mg PO DAILY 12/15/24 03/26/25 History Elemental)] Midodrine HCl [ProAmantine] 2.5 mg PO AC-TID 12/15/24 03/26/25 History Nitroglycerin Sl Tabs [Nitrostat] 0.4 mg SL Q5M PRN 12/15/24 03/26/25 History traMADol HCL 50 mg PO Q4-6H PRN 02/02/25 03/26/25 History Ergocalciferol [Vitamin D2 (1250 1,250 mcg PO [place] 03/10/25 03/26/25 History Mcg = 61706 Iu)] Allergies Allergy/AdvReac Type Severity Reaction Status Date / Time capsaicin Allergy Rash/Hives/ Verified 03/26/25 11:35 Swelling Physical Exam Vitals: Vital Signs Temp Pulse Resp BP Pulse Ox 03/26/25 06:47 86 18 134/65 98 03/26/25 06:00 72 18 159/88 98 03/26/25 04:08 75 18 114/67 96 03/26/25 01:30 86 18 122/67 98 03/25/25 23:07 73 18 104/57 98 03/25/25 22:00 86 18 100/57 98 03/25/25 19:23 20 122/88 03/25/25 18:20 98.8 F 84 18 177/88 97 Intake and Output 03/25/25 03/26/25 03/26/25 22:59 06:59 14:59 Other: Weight 98.883 kg Results CBC & Chem 7: 03/25/25 19:12 03/27/25 07:34 Labs: Abnormal Lab Results - Last 24 Hours (Table) 03/25/25 03/25/25 Range/Units 19:12 19:12 Hgb 10.9 L (12.0-15.0) g/dL Hct 34.4 L (37.2-46.3) % MCH 26.3 L (27.0-32.0) pg MCHC 31.7 L (32.0-37.0) g/dL Plt Count 91 L (140-440) 10*3/uL Glucose 138 H (74-99) mg/dL AST 48 H (14-36) U/L ALT 36 H (4-34) U/L Alkaline Phosphatase 146 H (38-126) U/L Albumin 3.2 L (3.5-5.0) g/dL
--- NOTE | 2025-03-26 15:11 | P.CRDCN ---
History of Present Illness Consult date: 03/26/25 History of present illness: HISTORY OF PRESENTING ILLNESS: 50-year-old female with past medical history of CAD s/p CABG, 08/2024, diastolic heart failure, recurrent pleural effusion status post Pleurx catheter, pericardial effusion status post pericardial drain, tobacco dependence. She recently had bilateral breast abscess for which she had surgery done last week. This time she presented to the hospital because of left-sided substernal chest pressure which was getting worse with taking deep breaths and changing position. On admission her troponins x 3 were negative, mild transaminitis, LDL 49, hemoglobin 10.9 EKG shows sinus rhythm with no significant ST-T wave changes concerning for ischemia REVIEW OF SYSTEMS: 14 point review of system is negative except what is mentioned above in HPI. PHYSICAL EXAMINATION: Neck: Brisk carotid upstroke, no jugular venous distention. Lungs: Clear to auscultation. Heart: Regular rate and rhythm, S1-S2, , no murmur or rub. Abdomen: Soft nontender, positive bowel sounds. Extremities: No edema, intact distal pulses. Neuro: Alert, oritented, no focal deficits. Detailed neuro exam was not performed. ASSESSMENT: # Atypical chest pain, likely related to recent surgery, could be related to pericardial/pleuritic pain. Rule out of ACS # Prior history of CAD status post CABG # Type 2 diabetes # Transaminitis # Obesity # Status post recent bilateral breast surgery PLAN: Continue aspirin, Lipitor Continue metoprolol 25 mg twice daily Discontinue midodrine. It is not recommended by cardiology Start naproxen and give 1 dose of Toradol Obtain ESR and CRP levels Obtain a limited echo to look if there is any pericardial effusion Chetan Mcclain MD, FACC, RPVI Thank you for allowing [facility] to participate in this patient's care. Feel free to reach out in case of any followup questions. Past Medical History Past Medical History: Atrial Fibrillation, Coronary Artery Disease (CAD), Heart Failure, Diabetes Mellitus, GERD/Reflux, Hyperlipidemia, Hypertension, Liver Disease, Pneumonia, Syncope Additional Past Medical History / Comment(s): Hx pneumonia yrs ago. Hx kidney stones. Diet controlled diabetic (pt denies diabetes 02/02/25). Seasonal allergies. Left internal carotid artery stenosis. Cirrhosis of liver. No menses in 4 1/2 yrs, states body does not make enough Estrogen. Recurrent pleural effusions. Pericardial effusion, bilateral breast abscesses for the past 5 years History of Any Multi-Drug Resistant Organisms: None Reported Past Surgical History: Appendectomy, Breast Surgery, Cholecystectomy, Coronary Bypass/CABG, Heart Catheterization With Stent, Orthopedic Surgery, Tubal Ligation Additional Past Surgical History / Comment(s): Right wrist carpal tunnel surgery, dental surgery- teeth removed, left breast abcess I&D X3, right breast abcess I&D X2, left ankle surgery, triple CABG 08/09/2024, multiple thoracentesis. Cardiac sents x2 and bilateral carotid stents 08/09/24. Left VATS with talc pleurodesis and placement of left-sided pleurx catheter 09/29/[address] Ortiz; subxiphoid pericardial window 10/04/2024 Past Anesthesia/Blood Transfusion Reactions: No Reported Reaction, Family History of Problems w/ Anesthesia Additional Past Anesthesia/Blood Transfusion Reaction / Comment(s): No blood transfusion to date. Mom stopped breathing during a surgery and was resuscitated. Date of Last Stent Placement:: 07/30/24 Past Psychological History: Anxiety, Bipolar, Depression Smoking Status: Former smoker Past Alcohol Use History: None Reported Past Drug Use History: None Reported - Past Family History Mother Family Medical History: Cancer Additional Family Medical History / Comment(s): schizoaffective disorder, uteral and cervical cancer Father History Unknown: Yes Family Medical History: Unable to Obtain Additional Family Medical History / Comment(s): Patient did not know her father Medications and Allergies Home Medications Medication Instructions Recorded Confirmed Type Atorvastatin Calcium [Lipitor] 40 mg PO DAILY 09/15/24 03/26/25 History Gabapentin [Neurontin] 300 mg PO BID 09/23/24 03/26/25 History Aspirin 81 mg PO DAILY tab 10/01/24 03/26/25 Rx Metoprolol Tartrate [Lopressor] 25 mg PO BID 11/01/24 03/26/25 History Omeprazole 20 mg PO DAILY 12/07/24 03/26/25 History Acetaminophen Tab [Tylenol] 650 mg PO Q6HR PRN #90 tab 12/15/24 03/26/25 Rx Empagliflozin [Jardiance] 10 mg PO DAILY 12/15/24 03/26/25 History Ferrous Sulfate [Iron (65 MG 325 mg PO DAILY 12/15/24 03/26/25 History Elemental)] Midodrine HCl [ProAmantine] 2.5 mg PO AC-TID 12/15/24 03/26/25 History Nitroglycerin Sl Tabs [Nitrostat] 0.4 mg SL Q5M PRN 12/15/24 03/26/25 History traMADol HCL 50 mg PO Q4-6H PRN 02/02/25 03/26/25 History Ergocalciferol [Vitamin D2 (1250 1,250 mcg PO MO 03/10/25 03/26/25 History Mcg = 61888 Iu)] Allergies Allergy/AdvReac Type Severity Reaction Status Date / Time capsaicin Allergy Rash/Hives/ Verified 03/26/25 11:35 Swelling Physical Exam Vitals: Vital Signs Temp Pulse Resp BP Pulse Ox 03/26/25 13:31 71 18 109/57 97 03/26/25 11:16 70 18 116/48 97 03/26/25 09:14 73 18 119/38 98 03/26/25 06:47 86 18 134/65 98 03/26/25 06:00 72 18 159/88 98 03/26/25 04:08 75 18 114/67 96 03/26/25 01:30 86 18 122/67 98 03/25/25 23:07 73 18 104/57 98 03/25/25 22:00 86 18 100/57 98 03/25/25 19:23 20 122/88 03/25/25 18:20 98.8 F 84 18 177/88 97 Results 03/25/25 19:12 03/25/25 19:12 Cardiac Enzymes 03/25/25 03/25/25 03/25/25 Range/Units 19:12 19:12 22:09 AST 48 H (14-36) U/L Troponin I <0.012 <0.012 (0.000-0.034) ng/mL 03/26/25 Range/Units 01:35 AST (14-36) U/L Troponin I <0.012 (0.000-0.034) ng/mL Coagulation 03/25/25 Range/Units 19:12 PT 11.8 (10.0-12.5) sec APTT 26.6 (22.0-30.0) sec Lipids 03/25/25 Range/Units 19:12 Triglycerides 80.70 (0.00-149.00) mg/dL Cholesterol 115.00 (0.00-200.00) mg/dL HDL Cholesterol 49.30 (40.00-60.00) mg/dL Cholesterol/HDL Ratio 2.33 Ratio CBC 03/25/25 Range/Units 19:12 WBC 7.36 (4.50-10.00) 10*3/uL RBC 4.14 (4.10-5.20) 10*6/uL Hgb 10.9 L (12.0-15.0) g/dL Hct 34.4 L (37.2-46.3) % Plt Count 91 L (140-440) 10*3/uL Comprehensive Metabolic Panel 03/25/25 Range/Units 19:12 Sodium 137 (137-145) mmol/L Potassium 4.4 (3.5-5.1) mmol/L Chloride 106 (98-107) mmol/L Carbon Dioxide 22 (22-30) mmol/L BUN 15 (7-17) mg/dL Creatinine 0.63 (0.52-1.04) mg/dL Glucose 138 H (74-99) mg/dL Calcium 8.7 (8.4-10.2) mg/dL AST 48 H (14-36) U/L ALT 36 H (4-34) U/L Alkaline Phosphatase 146 H (38-126) U/L Total Protein 6.5 (6.3-8.2) g/dL Albumin 3.2 L (3.5-5.0) g/dL Current Medications Generic Name Dose Route Start Last Admin Trade Name Freq PRN Reason Stop Dose Admin Hydrocodone Bitart/Acetaminophen 1 each 03/26/25 01:09 03/26/25 01:27 Hydrocodone/Apap 5-325mg 1 Each Tab PO 1 each Q6HR PRN Administration Pain Aspirin 81 mg 03/27/25 09:00 Aspirin 81 Mg PO DAILY GABO Atorvastatin Calcium 40 mg 03/26/25 10:00 03/26/25 11:14 Atorvastatin 40 Mg Tab PO 40 mg DAILY GABO Administration Dextrose/Water 25 ml 03/26/25 12:47 Dextrose 50% Syringe 50 Ml IVP PER PROTOCOL PRN Hypoglycemia Protocol Dextrose/Water 50 ml 03/26/25 12:47 Dextrose 50% Syringe 50 Ml IVP PER PROTOCOL PRN Hypoglycemia Protocol Enoxaparin Sodium 40 mg 03/27/25 09:00 Enoxaparin 40 Mg/0.4 Ml Syringe SQ DAILY [facility] Ergocalciferol 1,250 mcg 03/28/25 09:00 Ergocalciferol 1,250 Mcg (50,000 Iu) Capsule PO WEEKLY [facility] Ferrous Sulfate 325 mg 03/26/25 10:00 03/26/25 11:20 Ferrous Sulfate 325 Mg Tab PO 325 mg DAILY [facility] Administration Gabapentin 300 mg 03/26/25 10:00 03/26/25 11:14 Gabapentin 300 Mg Cap PO 300 mg BID GABO Administration Hydromorphone HCl 0.5 mg 03/26/25 05:12 03/26/25 11:15 Hydromorphone 0.5 Mg/0.5 Ml Syringe IVP 0.5 mg Q6HR PRN Administration Pain Insulin Human Lispro 0 unit 03/26/25 17:30 Insulin Lispro (Humalog) 100 Unit/Ml 10 Ml Vl SQ ACHS [facility] Protocol Metoprolol Tartrate 25 mg 03/26/25 10:00 03/26/25 11:14 Metoprolol Tartrate 25 Mg Tab PO 25 mg BID GABO Administration Midodrine 2.5 mg 03/26/25 12:30 03/26/25 11:13 Midodrine 5 Mg Tab PO 2.5 mg AC-TID GABO Administration Naproxen 250 mg 03/26/25 16:00 Naproxen 250 Mg Tab PO 03/29/25 15:59 TID GABO Nitroglycerin 0.4 mg 03/25/25 20:35 Nitroglycerin Sl Tabs 0.4 Mg Tab SUBLINGUAL Q5M PRN Chest Pain Pantoprazole Sodium 40 mg 03/26/25 10:00 03/26/25 11:21 Pantoprazole 40 Mg Tablet PO 40 mg [id number] GABO Administration 03/25/25 19:12 03/25/25 19:12
[2025-03-26 16:38] LABS: Glucose,Whole Blood 91 mg/dL (70-110)
[2025-03-26] MEDS: INSULIN LISPRO (HumaLOG) 100 UNIT/ML 10 mL VL SQ SCH (16:38)
[2025-03-26] MEDS: NAPROXEN 250 MG TAB PO SCH (16:39)
[2025-03-26] MEDS: KETOROLAC 15 MG/ML 1 ML VIAL IVP STA (16:55)
[2025-03-27] MEDS: KETOROLAC 15 MG/ML 1 ML VIAL IM PRN (01:36)
[2025-03-27 08:18] LABS: ALT 32 U/L (4-34); AST 39 U/L (14-36); African American GFR (CKD) >90 (>60 ml/min/1.73 sqM); Alkaline Phosphatase 131 U/L (38-126); Anion Gap 6 mmol/L; Blood Urea Nitrogen 23 mg/dL (7-17); Calcium 8.6 mg/dL (8.4-10.2); Carbon Dioxide 24 mmol/L (22-30); Chloride 108 mmol/L (98-107); Globulin 3.1 g/dL; Glucose 115 mg/dL (74-99); Non-African American GFR(CKD) >90 (>60 ml/min/1.73 sqM); Potassium 4.2 mmol/L (3.5-5.1); Sodium 138 mmol/L (137-145); Total Bilirubin 1.4 mg/dL (0.2-1.3); Total Protein 6.1 g/dL (6.3-8.2)
[2025-03-27] MEDS: ASPIRIN 81 MG PO SCH (09:17)
[2025-03-27] MEDS: ENOXAPARIN 40 MG/0.4 ML SYRINGE SQ SCH (09:19)
--- NOTE | 2025-03-27 13:38 | P.PN ---
Subjective Progress Note Date: 03/27/25 HISTORY OF PRESENTING ILLNESS: 50-year-old female with past medical history of CAD s/p CABG, 08/2024, diastolic heart failure, recurrent pleural effusion status post Pleurx catheter, pericardial effusion status post pericardial drain, tobacco dependence. She recently had bilateral breast abscess for which she had surgery done last week. This time she presented to the hospital because of left-sided substernal chest pressure which was getting worse with taking deep breaths and changing position. On admission her troponins x 3 were negative, mild transaminitis, LDL 49, hemoglobin 10.9 EKG shows sinus rhythm with no significant ST-T wave changes concerning for ischemia Progress note 03/27/2025 Patient's pain is better with the anti-inflammatory medications I gave her No signs of ACS at this time Appears euvolemic No tenderness on palpation in bilateral upper extremity and breast today. ESR and CRP are not elevated to the point that it would be fitting the clinical picture of pericarditis PHYSICAL EXAMINATION: Neck: Brisk carotid upstroke, no jugular venous distention. Lungs: Clear to auscultation. Heart: Regular rate and rhythm, S1-S2, , no murmur or rub. Abdomen: Soft nontender, positive bowel sounds. Extremities: No edema, intact distal pulses. Neuro: Alert, oritented, no focal deficits. Detailed neuro exam was not performed. ASSESSMENT: # Atypical chest pain, likely related to recent surgery, could be related to pericardial/pleuritic pain. Rule out of ACS # Prior history of CAD status post CABG # Type 2 diabetes # Transaminitis # Obesity # Status post recent bilateral breast surgery ESR 15 , crp 3.4 PLAN: Continue aspirin, Lipitor Continue metoprolol 25 mg twice daily Discontinue midodrine. It is not recommended by cardiology Start naproxen and protonix Obtain a limited echo to look if there is any pericardial effusion Objective - Vital Signs Vital signs: Vital Signs Temp 98.0 F 03/27/25 12:23 Pulse 57 L 03/27/25 12:23 Resp 14 03/27/25 12:23 BP 109/72 03/27/25 12:23 Pulse Ox 99 03/27/25 12:23 FiO2 Intake & Output 03/26/25 03/27/25 03/27/25 18:59 06:59 18:59 Intake Total 540 118 Balance 540 118 Weight 98.883 kg Intake: Oral 540 118 Other: Voiding Method Toilet Toilet Toilet # Voids 2 - Labs CBC & Chem 7: 03/25/25 19:12 03/27/25 07:34 Labs: Abnormal Lab Results - Last 24 Hours (Table) 03/26/25 03/27/25 Range/Units 16:14 07:34 Chloride 108 H (98-107) mmol/L BUN 23 H (7-17) mg/dL Glucose 115 H (74-99) mg/dL Total Bilirubin 1.4 H (0.2-1.3) mg/dL AST 39 H (14-36) U/L Alkaline Phosphatase 131 H (38-126) U/L C-Reactive Protein 3.4 H (<1.0) mg/dL Total Protein 6.1 L (6.3-8.2) g/dL Albumin 3.0 L (3.5-5.0) g/dL
[2025-03-27] MEDS: KETOROLAC 15 MG/ML 1 ML VIAL IVP PRN (15:28)
--- NOTE | 2025-03-27 15:34 | P.PN ---
Subjective Progress Note Date: 03/27/25 Patient is a 50 year old female with past medical history of atrial fibrillation, diabetes mellitus, GERD, hyperlipidemia, hypertension, CAD with CABG 08/09/2024,bilateral carotid stents 08/09/2024, left VATS with talc pleurodesis and placement also left-sided Pleurx catheter 09/29/2024, subxiphoid pericardial window 10/04/24 presents with chest pain. She states that earlier this week she had breast surgery for treatment of frequent breast abscesses. Patient states yesterday she started to have some left upper chest pain that radiated down her arm, her left neck and jaw. She now denies CP and endorses dull pain under left arm, which is worse with ambulation, and improves with rest. Pain is not related to arm movement. No stated tenderness. Denies any associate diaphoresis or nausea. 03/27. Patient seen and examined. States she is still having episodes of pain under her left shoulder. Denies any shortness of breath. Patient has good range of motion of left shoulder REVIEW OF SYSTEMS: CONSTITUTIONAL: No fever, no malaise,. CARDIOVASCULAR: No chest pain, no palpitations, no syncope. PULMONARY: No shortness of breath, no cough, GASTROINTESTINAL: No diarrhea, no nausea, no vomiting, no abdominal pain. NEUROLOGICAL: No headaches, no weakness, PHYSICAL EXAMINATION: GENERAL: The patient is alert and oriented x3, not in any acute distress. Well developed, well nourished. HEENT: Pupils are round and equally reacting to light. EOMI. No scleral icterus. No conjunctival pallor. Normocephalic, atraumatic. No pharyngeal erythema. No thyromegaly. CARDIOVASCULAR: S1 and S2 present. No murmurs, rubs, or gallops. PULMONARY: Chest is clear to auscultation, no wheezing or crackles. ABDOMEN: Soft, nontender, nondistended, normoactive bowel sounds. No palpable organomegaly. MUSCULOSKELETAL: No joint swelling or deformity. EXTREMITIES: No cyanosis, clubbing, or pedal edema. NEUROLOGICAL: Gross neurological examination did not reveal any focal deficits. SKIN: No rashes. Assessment and plan #Atypical Chest pain #Hx of CABG 08/2024 - Troponins negative 3x continue cardiac monitoring Continue aspirin, Lopressor - Cardiology following, ordered 2D echo #Chronic bicytopenia #Chronic transaminitis Asymptomatic at this time #Diabetes mellitus, type 2 Holding oral medications Begin Accu-Cheks and low-dose sliding scale, monitor for hypoglycemia Chronic Medical Conditions Atrial fibrillation Diabetes mellitus GERD Hyperlipidemia Hypertension CAD with CABG 08/09/2024 Bilateral carotid stents 08/09/2024 Left VATS with talc pleurodesis Hx of Left-sided Pleurx catheter 09/29/2024 Subxiphoid pericardial window 10/04/24 Labs and medication were reviewed.. Continue same treatment. Continue with symptomatic treatment. Resume home medication. Monitor labs and vitals. DVT and GI prophylaxis. Further recommendations as per clinical course of the patient Dictation was produced using [employer] dictation software. please excuse any grammatical, word or spelling errors. Objective - Vital Signs Vital signs: Vital Signs Temp 98.5 F 03/27/25 14:00 Pulse 72 03/27/25 14:00 Resp 16 03/27/25 14:00 BP 111/61 03/27/25 14:00 Pulse Ox 99 03/27/25 14:00 FiO2 Intake & Output 03/26/25 03/27/25 03/27/25 18:59 06:59 18:59 Intake Total 540 118 Balance 540 118 Weight 98.883 kg Intake: Oral 540 118 Other: Voiding Method Toilet Toilet Toilet # Voids 2 1 # Bowel Movements 0 - Labs CBC & Chem 7: 03/25/25 19:12 03/27/25 07:34 Labs: Abnormal Lab Results - Last 24 Hours (Table) 03/26/25 03/27/25 Range/Units 16:14 07:34 Chloride 108 H (98-107) mmol/L BUN 23 H (7-17) mg/dL Glucose 115 H (74-99) mg/dL Total Bilirubin 1.4 H (0.2-1.3) mg/dL AST 39 H (14-36) U/L Alkaline Phosphatase 131 H (38-126) U/L C-Reactive Protein 3.4 H (<1.0) mg/dL Total Protein 6.1 L (6.3-8.2) g/dL Albumin 3.0 L (3.5-5.0) g/dL
--- NOTE | 2025-03-27 16:15 | XR ---
EXAMINATION TYPE: XR shoulder complete LT DATE OF EXAM: 03/27/2025 4:04 PM COMPARISON: None CLINICAL INDICATION: Female, 50 years old with history of Left shoulder pain; PHH, pain TECHNIQUE: XR shoulder complete LT; examined in AP, internally rotated and scapular Y projections. FINDINGS: No evidence of acute osseous pathology, joint dislocation, or soft tissue swelling. The remaining po rtions of the visualized chest are unremarkable. IMPRESSION: No acute osseous pathology. [facility], , 03/27/2025 4:12 PM
[2025-03-28 01:50] VITALS: TEMP 98.5
[2025-03-28 08:22] VITALS: BP 107/62; PULSE 62; RESP 16
[2025-03-28 08:39] LABS: ALT 36 U/L (8-44); AST 40 U/L (13-35); Albumin 2.9 g/dL (3.8-4.9); Albumin/Globulin Ratio 1.16 Ratio (1.60-3.17); Alkaline Phosphatase 175 U/L (41-126); BUN/Creat Ratio 30.62 Ratio (12.00-20.00); Blood Urea Nitrogen 24.5 mg/dL (9.0-27.0); Calcium 8.3 mg/dL (8.7-10.3); Carbon Dioxide 22.7 mmol/L (21.6-31.8); Chloride 108 mmol/L (96-109); Globulin 2.5 g/dL (1.6-3.3); Glucose 156 mg/dL (70-110); Potassium 4.3 mmol/L (3.5-5.5); Sodium 138 mmol/L (135-145); Total Bilirubin 0.5 mg/dL (0.3-1.2); Total Protein 5.4 g/dL (6.2-8.2)
[2025-03-28 08:43] LABS: Basophils # (A) 0.03 X 10*3/uL (0.00-0.10); Basophils % (A) 0.7 %; Eosinophils # (A) 0.24 X 10*3/uL (0.04-0.35); Eosinophils % (A) 5.4 %; HCT 32.5 % (37.2-46.3); HGB 10.1 g/dL (12.0-15.0); Lymphocytes # (A) 0.97 X 10*3/uL (0.90-5.00); Lymphocytes % (A) 21.9 %; MCH 26.2 pg (27.0-32.0); MCHC 31.1 g/dL (32.0-37.0); MCV 84.4 FL (80.0-97.0); Monocytes # (A) 0.56 X 10*3/uL (0.20-1.00); Monocytes % (A) 12.7 %; NRBC Per 100 WBC 0 X 10*3/uL (0.00-0.01); Neutrophils # (A) 2.61 X 10*3/uL (1.80-7.70); Neutrophils % (A) 59.1 %; Platelet Count 96 X 10*3/uL (140-440); RBC 3.85 X 10*6/uL (4.10-5.20); RDW 17.4 % (11.5-14.5); WBC 4.42 X 10*3/uL (4.50-10.00)
[2025-03-28] MEDS: ERGOCALCIFEROL 1,250 MCG (50,000 IU) CAPSULE PO SCH (09:10)
--- NOTE | 2025-03-28 09:23 | P.PN ---
Subjective Progress Note Date: 03/28/25 Principal diagnosis: pain left breast History of present illness; Is a 50-year-old female who last week underwent bilateral core lumpectomies for chronic breast abscesses. She has a medical history of CABG 08-09-2024 bilateral carotid stents and a left VATS with talc pleurodesis and left Pleurx catheter on 09-29-2024. She had a subxiphoid pericardial window on 10-04-2024. And she presented to the emergency room with chest pain. The pain had started 1 day prior to presentation in the emergency room and was in her left arm neck and jaw. At this time she denies any chest pain. And states that she did not have any difficulty with her breast until after her admission to the hospital. Then she developed increased swelling and discomfort in the left breast. Objective - Vital Signs Vital signs: Vital Signs Temp 98.5 F 03/28/25 07:18 Pulse 62 03/28/25 07:18 Resp 16 03/28/25 07:18 BP 107/62 03/28/25 07:18 Pulse Ox 98 03/28/25 07:18 FiO2 Intake & Output 03/27/25 03/28/25 03/28/25 18:59 06:59 18:59 Intake Total 354 100 Balance 354 100 Intake: Oral 354 100 Other: Voiding Method Toilet Toilet # Voids 1 2 # Bowel Movements 0 - Constitutional General appearance: Present: cooperative - EENT Eyes: Present: EOMI ENT: Present: hearing grossly normal - Neck Neck: Present: normal ROM - Respiratory Respiratory: bilateral: CTA - Cardiovascular Heart sounds: normal: S1, S2 - Integumentary Integumentary Comment(s): Bilateral incisions are clean and dry in the breast In the left breast there appears to be a seroma no evidence of any infection - Labs CBC & Chem 7: 03/28/25 04:27 03/28/25 04:27 Labs: Abnormal Lab Results - Last 24 Hours (Table) 03/28/25 03/28/25 Range/Units 04: 04:27 WBC 4.42 L (4.50-10.00) X 10*3/uL RBC 3.85 L (4.10-5.20) X 10*6/uL Hgb 10.1 L (12.0-15.0) g/dL Hct 32.5 L (37.2-46.3) % MCH 26.2 L (27.0-32.0) pg MCHC 31.1 L (32.0-37.0) g/dL RDW 17.4 H (11.5-14.5) % Plt Count 96 L (140-440) X 10*3/uL BUN/Creatinine Ratio 30.62 H (12.00-20.00) Ratio Glucose 156 H (70-110) mg/dL Calcium 8.3 L (8.7-10.3) mg/dL AST 40 H (13-35) U/L Alkaline Phosphatase 175 H (41-126) U/L Total Protein 5.4 L (6.2-8.2) g/dL Albumin 2.9 L (3.8-4.9) g/dL Albumin/Globulin Ratio 1.16 L (1.60-3.17) Ratio Assessment and Plan Assessment: Impression: Probable seroma left breast Plan: Aspiration seroma Following informed consent the area of concern in the left breast was prepped using chlorhexidine. An 18-gauge needle on a 10 cc syringe was used to aspirate 60 cc of serous fluid. There was resolution of the seroma and the discomfort subsided. Patient is started on oral Keflex prophylactically She will follow-up with me later this week
[2025-03-28] MEDS: CEPHALEXIN 500 MG CAP PO SCH (11:15)
--- NOTE | 2025-03-28 12:36 | CA ---
Transthoracic Echo Report Name: Yovana Ramos Age: 50 Gender: F : 1975 Exam Date: 03/28/2025 10:42 Exam Location: [facility] Ht (in): 63 Wt (lb): 218 Ordering Physician: Chetan Mcclain MD ([id number]) Attending/Referring Phys: Cementing Machine Operator Tameka Adrian RDCS Procedure CPT: Indications: pericardial effusion Cardiac Hx: limited study Technical Quality: Good Contrast 1: Total Dose (mL): Contrast 2: Total Dose (mL): MEASUREMENTS (Male / Female) Normal Values DOPPLER TR Peak Velocity 282.2 cm/s TR Peak Gradient 31.9 mmHg Right Ventricular Systolic Press 36.2 mmHg FINDINGS Left Ventricle Left ventricular ejection fraction is estimated at 55-60 %. No obvious regional wall motion abnormalities. Right Ventricle Right ventricular systolic pressure within normal limits. Right Atrium Left Atrium Mitral Valve Aortic Valve Tricuspid Valve Pulmonic Valve Pericardium No pericardial effusion. No pleural effusion. Aorta CONCLUSIONS Left ventricular ejection fraction 55 to 60% No pericardial effusion No pleural effusion Previewed by: Dr. Jared Ogden DO (Electronically Signed) Final Date: 28 March 2025 12:35
--- NOTE | 2025-03-28 13:27 | P.DS ---
Providers Date of admission: 03/25/25 20:35 Expected date of discharge: 03/28/25 Attending physician: Carlos Cuellar Consults: 03/25/25 20:35 Consult Physician Urgent Consulting Provider: Chetan Mcclain Consult Reason/Comments: chest pain Do you want consulting provider notified?: Yes 03/27/25 21:49 Consult Physician Routine Consulting Provider: Maren Faajrdo Consult Reason/Comments: recent breast surgery, known to case Do you want consulting provider notified?: Yes, Notify in am Primary care physician: Sara Velarde MD Hospital Course: Discharge diagnoses; #Atypical Chest pain #Hx of CABG 08/2024 #Left breast seroma #Chronic bicytopenia #Chronic transaminitis Diabetes mellitus, type 2 Atrial fibrillation Diabetes mellitus GERD Hyperlipidemia Hypertension CAD with CABG 08/09/2024 Bilateral carotid stents 08/09/2024 Left VATS with talc pleurodesis Hx of Left-sided Pleurx catheter Subxiphoid pericardial window 10/04/24 Hospital course; Patient is a 50 year old female with past medical history of atrial fibrillation, diabetes mellitus, GERD, hyperlipidemia, hypertension, CAD with CABG 08/09/2024,bilateral carotid stents 08/09/2024, left VATS with talc pleurodesis and placement also left-sided Pleurx catheter 09/29/2024, subxiphoid pericardial window 10/04/24 presents with chest pain. She states that earlier this week she had breast surgery for treatment of frequent breast abscesses. Patient states yesterday she started to have some left upper chest pain that radiated down her arm, her left neck and jaw. She now denies CP and endorses dull pain under left arm, which is worse with ambulation, and improves with rest. Pain is not related to arm movement. No stated tenderness. Denies any associate diaphoresis or nausea. During hospital course patient seen by surgery and cardiology. ACS was ruled out. Echocardiogram without pericardial effusion. Surgery aspirated left breast seroma began antibiotics, which improved pain. Patient discharged home in stable condition. She is to continue Keflex, discontinue midodrine. Is a follow-up with her PCP, and Dr. Fajardo surgery. PHYSICAL EXAMINATION: GENERAL: The patient is alert and oriented x3, not in any acute distress. Well developed, well nourished. CARDIOVASCULAR: S1 and S2 present. No murmurs, rubs, or gallops. PULMONARY: Chest is clear to auscultation, no wheezing or crackles. ABDOMEN: Soft, nontender, nondistended, normoactive bowel sounds. No palpable organomegaly. MUSCULOSKELETAL: No joint swelling or deformity. EXTREMITIES: No cyanosis, clubbing, or pedal edema. NEUROLOGICAL: Gross neurological examination did not reveal any focal deficits. SKIN: No rashes. Dr. Vance seen patient with resident, present during exam, and agreed with gabriel cohen. Dictation was produced using [employer] dictation software. please excuse any grammatical, word or spelling errors. Attestation I have seen and examined this patient with my resident , discussed the same with the resident/YVETTE, and agree with the dictator's assessment and plan as written Dr. Camacho vance Patient Condition at Discharge: Stable Plan - Discharge Summary Discharge Rx Participant: No New Discharge Prescriptions: New Cephalexin [Keflex] 500 mg PO Q6HR 1 Days #20 cap Continue Gabapentin [Neurontin] 300 mg PO BID Aspirin 81 mg PO DAILY tab Metoprolol Tartrate [Lopressor] 25 mg PO BID Nitroglycerin Sl Tabs [Nitrostat] 0.4 mg SL Q5M PRN PRN Reason: Chest Pain Ferrous Sulfate [Iron (65 MG Elemental)] 325 mg PO DAILY Empagliflozin [Jardiance] 10 mg PO DAILY Acetaminophen Tab [Tylenol] 650 mg PO Q6HR PRN #90 tab PRN Reason: Mild Pain Or Fever > 100.5 traMADol HCL 50 mg PO Q4-6H PRN PRN Reason: Pain Atorvastatin Calcium [Lipitor] 40 mg PO DAILY Omeprazole 20 mg PO DAILY Ergocalciferol [Vitamin D2 (1250 Mcg = 54378 Iu)] 1,250 mcg PO MO Discontinued Midodrine HCl [ProAmantine] 2.5 mg PO AC-TID Discharge Medication List Atorvastatin Calcium [Lipitor] 40 mg PO DAILY 09/15/24 [History] Gabapentin [Neurontin] 300 mg PO BID 09/23/24 [History] Aspirin 81 mg PO DAILY tab 10/01/24 [Rx] Metoprolol Tartrate [Lopressor] 25 mg PO BID 11/01/24 [History] Omeprazole 20 mg PO DAILY 12/07/24 [History] Acetaminophen Tab [Tylenol] 650 mg PO Q6HR PRN #90 tab 12/15/24 [Rx] Empagliflozin [Jardiance] 10 mg PO DAILY 12/15/24 [History] Ferrous Sulfate [Iron (65 MG Elemental)] 325 mg PO DAILY 12/15/24 [History] Nitroglycerin Sl Tabs [Nitrostat] 0.4 mg SL Q5M PRN 12/15/24 [History] traMADol HCL 50 mg PO Q4-6H PRN 02/02/25 [History] Ergocalciferol [Vitamin D2 (1250 Mcg = 60529 Iu)] 1,250 mcg PO MO 03/10/25 [History] Cephalexin [Keflex] 500 mg PO Q6HR 1 Days #20 cap 03/28/25 [Rx] Follow up Appointment(s)/Referral(s): Jared Ogden DO [STAFF PHYSICIAN] - 2 Weeks Maren Fajardo MD [STAFF PHYSICIAN] - 03/31/25 Sara Velarde MD [Primary Care Provider] - 1-2 days Discharge Disposition: HOME SELF-CARE
--- NOTE | 2025-03-28 14:57 | P.PN ---
Subjective Progress Note Date: 03/28/25 HISTORY OF PRESENTING ILLNESS: 50-year-old female with past medical history of CAD s/p CABG, 08/2024, diastolic heart failure, recurrent pleural effusion status post Pleurx catheter, pericardial effusion status post pericardial drain, tobacco dependence. She recently had bilateral breast abscess for which she had surgery done last week. This time she presented to the hospital because of left-sided substernal chest pressure which was getting worse with taking deep breaths and changing position. On admission her troponins x 3 were negative, mild transaminitis, LDL 49, hemoglobin 10.9 EKG shows sinus rhythm with no significant ST-T wave changes concerning for ischemia Progress note 03/27/2025 Patient's pain is better with the anti-inflammatory medications I gave her No signs of ACS at this time Appears euvolemic No tenderness on palpation in bilateral upper extremity and breast today. ESR and CRP are not elevated to the point that it would be fitting the clinical picture of pericarditis. ESR 15 , crp 3.4 03/28 Patient seen and examined. Limited echocardiogram reveals EF 55 to 60%. No pericardial effusion. No pleural effusion. Patient denies fever or chills. She states she has some pain in the jaw like a toothache and had some achy sensation in the left side of her chest towards axillary area. At home she has been taking tramadol which has been a chronic pain medication for her. Blood pressure 107/62, heart rate 62, pulse ox 90% on room air. Repeat blood work reveals hemoglobin 10.1, WBC 4.4. BUN 24 creatinine 0.8. Alkaline phosphatase 175. PHYSICAL EXAMINATION: Neck: Brisk carotid upstroke, no jugular venous distention. Lungs: Clear to auscultation. Heart: Regular rate and rhythm, S1-S2, , no murmur or rub. Abdomen: Soft nontender, positive bowel sounds. Extremities: No edema, intact distal pulses. Neuro: Alert, oritented, no focal deficits. Detailed neuro exam was not performed. ASSESSMENT: # Atypical chest pain, likely related to recent surgery, could be related to pericardial/pleuritic pain. Rule out of ACS # Prior history of CAD status post CABG # Type 2 diabetes # Transaminitis # Obesity # Status post recent bilateral breast surgery PLAN: Continue aspirin, Lipitor Continue metoprolol 25 mg twice daily Discontinue midodrine. It is not recommended by cardiology Start naproxen and protonix Patient is cleared for discharge from cardiology and will follow-up with Dr. Ogden in 1 to 2 weeks. Nurse practitioner note has been reviewed, I agree with documented findings and plan of care. Patient was seen and examined. Objective - Vital Signs Vital signs: Vital Signs Temp 98.5 F 03/28/25 07:18 Pulse 62 03/28/25 07:18 Resp 16 03/28/25 07:18 BP 107/62 03/28/25 07:18 Pulse Ox 98 03/28/25 07:18 FiO2 Intake & Output 03/27/25 03/28/25 03/28/25 18:59 06:59 18:59 Intake Total 354 100 Balance 354 100 Intake: Oral 354 100 Other: Voiding Method Toilet Toilet # Voids 1 2 # Bowel Movements 0 - Labs CBC & Chem 7: 03/28/25 04:27 03/28/25 04:27 Labs: Abnormal Lab Results - Last 24 Hours (Table) 03/28/25 03/28/25 Range/Units 04:27 04:27 WBC 4.42 L (4.50-10.00) X 10*3/uL RBC 3.85 L (4.10-5.20) X 10*6/uL Hgb 10.1 L (12.0-15.0) g/dL Hct 32.5 L (37.2-46.3) % MCH 26.2 L (27.0-32.0) pg MCHC 31.1 L (32.0-37.0) g/dL RDW 17.4 H (11.5-14.5) % Plt Count 96 L (140-440) X 10*3/uL BUN/Creatinine Ratio 30.62 H (12.00-20.00) Ratio Glucose 156 H (70-110) mg/dL Calcium 8.3 L (8.7-10.3) mg/dL AST 40 H (13-35) U/L Alkaline Phosphatase 175 H (41-126) U/L Total Protein 5.4 L (6.2-8.2) g/dL Albumin 2.9 L (3.8-4.9) g/dL Albumin/Globulin Ratio 1.16 L (1.60-3.17) Ratio
== END 2025-03-28 15:14 | disposition home or self-care (01) ==
LOC: EC 18:10 → 6NMEDSUR 20:35
PROVIDERS: ADMIT Hospitalist; ATTEND Hospitalist
DX: R07.89 Other chest pain (principal); D61.818 Other pancytopenia; L76.34 Postprocedural seroma of skin and subcutaneous tissue following other procedure; N61.1 Abscess of the breast and nipple; I25.10 Atherosclerotic heart disease of native coronary artery without angina pectoris; I11.0 Hypertensive heart disease with heart failure; I50.32 Chronic diastolic (congestive) heart failure; E11.9 Type 2 diabetes mellitus without complications; I48.91 Unspecified atrial fibrillation; K21.9 Gastro-esophageal reflux disease without esophagitis; E78.5 Hyperlipidemia, unspecified; R74.01 Elevation of levels of liver transaminase levels; M79.602 Pain in left arm; M54.2 Cervicalgia; R68.84 Jaw pain; G89.29 Other chronic pain; E66.9 Obesity, unspecified; Z68.36 Body mass index [BMI] 36.0-36.9, adult; Z79.82 Long term (current) use of aspirin; Z79.84 Long term (current) use of oral hypoglycemic drugs; Z79.899 Other long term (current) drug therapy; Z88.8 Allergy status to other drugs, medicaments and biological substances; Z87.891 Personal history of nicotine dependence; Z95.828 Presence of other vascular implants and grafts; Z95.1 Presence of aortocoronary bypass graft; Z86.79 Personal history of other diseases of the circulatory system; Z98.890 Other specified postprocedural states
CPT/HCPCS: 96376 ×5; 96372 ×2; 96375; 96374; 99285; 36415; 93005 ×2; 93308; 80061; 80053 ×3; 85652; 83735; 84484 ×2; 85025 ×2; 85610; 85730; 86140; 73030; 71046; 10160; G0378 ×4; J1171 ×4; J1650 ×2; J1885 ×3

== ENCOUNTER → 2025-03-31 | Outpatient (CLI) | payer OTHER ==
[2025-03-31 09:49] VITALS: BP 104/69; PULSE 69; RESP 17; TEMP 97.9
--- NOTE | 2025-03-31 09:49 | P.BCPO ---
Progress Note - Text Progress Note Date: 03/31/25 Yovana is status post bilateral central lumpectomy on 03-22-25. Pathology chronic mastitis. She had a symptomatic seroma drained on 03-26-25. Cultures left breast prevotella bivia few. Lungs: Clear Heart: Regular rate and rhythm Incisions: Clean and dry bilateral no symptomatic seromas Impression: Patient doing well postoperatively Bilateral mammogram in 6 weeks with examination at that time Patient to follow-up sooner any questions or concerns
== END ==
LOC: WWCWWP 09:29
PROVIDERS: ATTEND Surgery
DX: N60.19 Diffuse cystic mastopathy of unspecified breast (principal); F17.200 Nicotine dependence, unspecified, uncomplicated; Z91.048 Other nonmedicinal substance allergy status; Z98.890 Other specified postprocedural states

== ENCOUNTER 2025-04-12 19:23 | Emergency (ER) | payer OTHER ==
[2025-04-12 19:27] VITALS: TEMP 98.2
[2025-04-12 20:14] LABS: Basophils # (A) 0.04 10*3/uL (0.00-0.10); Basophils % (A) 0.8 %; Eosinophils # (A) 0.28 10*3/uL (0.04-0.35); Eosinophils % (A) 5.4 %; HCT 37.8 % (37.2-46.3); HGB 11.8 g/dL (12.0-15.0); Immature Platelet Fraction 5.9 % (1.1-6.1); Lymphocytes # (A) 1.32 10*3/uL (0.90-5.00); Lymphocytes % (A) 25.3 %; MCH 26.2 pg (27.0-32.0); MCHC 31.2 g/dL (32.0-37.0); Mean Platelet Volume 12.6 fL (9.5-12.2); Monocytes # (A) 0.48 10*3/uL (0.20-1.00); Monocytes % (A) 9.2 %; Neutrophils # (A) 3.08 10*3/uL (1.80-7.70); Neutrophils % (A) 59.1 %; Platelet Count 112 10*3/uL (140-440); RDW 17.2 % (11.5-14.5); WBC 5.21 10*3/uL (4.50-10.00)
[2025-04-12 20:28] LABS: ALT 45 U/L (4-34); AST 53 U/L (14-36); African American GFR (CKD) >90 (>60 ml/min/1.73 sqM); Albumin 3.4 g/dL (3.5-5.0); Alkaline Phosphatase 228 U/L (38-126); Anion Gap 9 mmol/L; Blood Urea Nitrogen 12 mg/dL (7-17); Carbon Dioxide 24 mmol/L (22-30); Chloride 106 mmol/L (98-107); Glucose 147 mg/dL (74-99); Non-African American GFR(CKD) 87 (>60 ml/min/1.73 sqM); Potassium 3.8 mmol/L (3.5-5.1); Sodium 139 mmol/L (137-145); Total Bilirubin 0.9 mg/dL (0.2-1.3); Total Protein 6.6 g/dL (6.3-8.2)
[2025-04-12] MEDS: HYDROmorphone 1 MG/ML 1 ML SYRINGE IVP STA (20:37)
[2025-04-12] MEDS: SODIUM CHLORIDE 0.9% 1,000 ML IV ONE (20:39)
--- NOTE | 2025-04-12 21:39 | ED ---
General Adult HPI - General Chief complaint: Skin/Abscess/Foreign Body Stated complaint: Swollen Breast-Post Op Time Seen by Provider: 04/12/25 19:34 Source: patient Mode of arrival: ambulatory Limitations: no limitations - History of Present Illness Initial comments: 50-year-old female presenting with chief complaint of bilateral breast pain. Patient had the bilateral nipples removed [address] Familia Mendez due to recurrent breast abscesses. She reports that last night the left breast started feeling engorged and hard. She has also had serosanguineous discharge from the right breast incision site. No fever. No nausea or vomiting. No chest pain or difficulty breathing. No abdominal pain. - Related Data Home Medications Medication Instructions Recorded Confirmed Atorvastatin Calcium [Lipitor] 40 mg PO DAILY 09/15/24 03/31/25 Gabapentin [Neurontin] 300 mg PO BID 09/23/24 03/31/25 Metoprolol Tartrate [Lopressor] 25 mg PO BID 11/01/24 03/31/25 Omeprazole 20 mg PO DAILY 12/07/24 03/31/25 Empagliflozin [Jardiance] 10 mg PO DAILY 12/15/24 03/31/25 Ferrous Sulfate [Iron (65 MG 325 mg PO DAILY 12/15/24 03/31/25 Elemental)] Nitroglycerin Sl Tabs [Nitrostat] 0.4 mg SL Q5M PRN 12/15/24 03/31/25 traMADol HCL 50 mg PO Q4-6H PRN 02/02/25 03/31/25 Ergocalciferol [Vitamin D2 (1250 1,250 mcg PO MO 03/10/25 03/31/25 Mcg = 66581 Iu)] Previous Rx's Medication Instructions Recorded Aspirin 81 mg PO DAILY tab 10/01/24 Acetaminophen Tab [Tylenol] 650 mg PO Q6HR PRN #90 tab 12/15/24 Cephalexin [Keflex] 500 mg PO Q6HR 1 Days #20 cap 03/28/25 Cephalexin [Keflex] 500 mg PO Q6HR 7 Days #28 cap 04/12/25 Sulfamethox-Tmp 800-160Mg [Bactrim 1 tab PO Q12HR 7 Days #14 tab 04/12/25 DS 800-160 mg] Allergies Allergy/AdvReac Type Severity Reaction Status Date / Time capsaicin Allergy Rash/Hives/ Verified 04/12/25 19:27 Swelling Review of Systems ROS Statement: Those systems with pertinent positive or pertinent negative responses have been documented in the HPI. ROS Other: All systems not noted in ROS Statement are negative. Past Medical History Past Medical History: Atrial Fibrillation, Coronary Artery Disease (CAD), Heart Failure, Diabetes Mellitus, GERD/Reflux, Hyperlipidemia, Hypertension, Liver Disease, Pneumonia, Syncope Additional Past Medical History / Comment(s): Hx pneumonia yrs ago. Hx kidney stones. Diet controlled diabetic (pt denies diabetes 02/02/25). Seasonal allergies. Left internal carotid artery stenosis. Cirrhosis of liver. No menses in 4 1/2 yrs, states body does not make enough Estrogen. Recurrent pleural effusions. Pericardial effusion, bilateral breast abscesses for the past 5 years History of Any Multi-Drug Resistant Organisms: None Reported Past Surgical History: Appendectomy, Breast Surgery, Cholecystectomy, Coronary Bypass/CABG, Heart Catheterization With Stent, Orthopedic Surgery, Tubal Ligation Additional Past Surgical History / Comment(s): Right wrist carpal tunnel surgery, dental surgery- teeth removed, left breast abcess I&D X3, right breast abcess I&D X2, left ankle surgery, triple CABG 08/09/2024, multiple thoracentesis. Cardiac sents x2 and bilateral carotid stents 08/09/24. Left VATS with talc pleurodesis and placement of left-sided pleurx catheter 09/29/[address] Ortiz; subxiphoid pericardial window 10/04/2024 Past Anesthesia/Blood Transfusion Reactions: No Reported Reaction, Family History of Problems w/ Anesthesia Additional Past Anesthesia/Blood Transfusion Reaction / Comment(s): No blood transfusion to date. Mom stopped breathing during a surgery and was resuscitated. Date of Last Stent Placement:: 07/30/24 Past Psychological History: Anxiety, Bipolar, Depression Smoking Status: Former smoker Past Alcohol Use History: None Reported Past Drug Use History: None Reported - Past Family History Mother Family Medical History: Cancer Additional Family Medical History / Comment(s): schizoaffective disorder, uteral and cervical cancer Father History Unknown: Yes Family Medical History: Unable to Obtain Additional Family Medical History / Comment(s): Patient did not know her father General Exam Limitations: no limitations General appearance: alert, in no apparent distress Head exam: Present: atraumatic, normocephalic, normal inspection Eye exam: Present: normal appearance, EOMI Neck exam: Present: normal inspection. Absent: meningismus Respiratory exam: Present: normal lung sounds bilaterally. Absent: respiratory distress, wheezes, rales, rhonchi, stridor Cardiovascular Exam: Present: regular rate, normal rhythm, normal heart sounds. Absent: systolic murmur, diastolic murmur, rubs, gallop, clicks Neurological exam: Present: alert, oriented X3 Psychiatric exam: Present: normal affect, normal mood Skin exam: Present: other (The incisions appear clean and intact. There is some serosanguineous discharge coming from the right breast incision. There is no evidence of hoffman-red erythema or significant induration.) Course Vital Signs 04/12/25 19:24 Temperature 98.2 F Pulse Rate 73 Respiratory 18 Rate Blood Pressure 169/84 O2 Sat by Pulse 97 Oximetry Medical Decision Making - Medical Decision Making Was pt. sent in by a medical professional or institution (, PA, HIGH SCHOOL MATH TUTOR, urgent care, hospital, or correction...) When possible be specific @ -No Did you speak to anyone other than the patient for history (EMS, parent, family, police, friend...)? What history was obtained from this source @ -No Did you review nursing and triage notes (agree or disagree)? Why? @ -I reviewed and agree with nursing and triage notes Were old charts reviewed (outside hosp., previous admission, EMS record, old EKG, old radiological studies, urgent care reports/EKG's, correction records)? Report findings @ -No old charts were reviewed Differential Diagnosis (chest pain, altered mental status, abdominal pain women, abdominal pain men, vaginal bleeding, weakness, fever, dyspnea, syncope, headache, dizziness, GI bleed, back pain, seizure, CVA, palpatations, mental health, musculoskeletal)? @ -Differential includes seroma, abscess, hematoma, not an all-inclusive list EKG interpreted by me (3pts min.). @ -As above X-rays interpreted by me (1pt min.). @ -None done CT interpreted by me (1pt min.). @ -None done U/S interpreted by me (1pt. min.). @ -Was called by the apprentice instrument technician with the ultrasound report. There are bilateral subareolar fluid collections with debris. Right side measures 4.9 x 1.2 x 5.0 cm. Left side measures 6.7 x 3.2 x 7.7 cm. What testing was considered but not performed or refused? (CT, X-rays, U/S, labs)? Why? @ -None What meds were considered but not given or refused? Why? @ -None Did you discuss the management of the patient with other professionals (professionals i.e. DrVi, PA, HIGH SCHOOL MATH TUTOR, lab, RT, psych nurse, high school social studies teacher, spool maker, teacher, customs patrol officer, child support case officer)? Give summary @ -No Was smoking cessation discussed for >3mins.? @ -No Was critical care preformed (if so, how long)? @ -No Were there social determinants of health that impacted care today? How? (Homelessness, low income, unemployed, alcoholism, drug addiction, tra nsportation, low edu. Level, literacy, decrease access to med. care, half-way, rehab)? @ -No Was there de-escalation of care discussed even if they declined (Discuss DNR or withdrawal of care, Hospice)? DNR status @ -No What co-morbidities impacted this encounter? (DM, HTN, Smoking, COPD, CAD, Cancer, CVA, ARF, Chemo, Hep., AIDS, mental health diagnosis, sleep apnea, morbid obesity)? @ -None Was patient admitted / discharged? Hospital course, mention meds given and route, prescriptions, significant lab abnormalities, going to OR and other pertinent info. @ -50-year-old female presenting with chief complaint of bilateral breast plain. She had the bilateral nipples removed 3 weeks ago due to recurrent breast abscesses. She is afebrile and vitals are stable. History and physical examination are conducted. The incisions appear clean. There is some serosanguineous discharge seen on the right side. Labs show no leukocytosis. There is some mild transaminitis. Breast ultrasound shows bilateral subareolar fluid collections with debris. Patient will be placed on Keflex and Bactrim and is instructed to follow-up with her surgeon. Follow-up with PCP. Report back to ER with any new or worsening symptoms. Discussed return parameters and answered all questions. Patient conveyed verbal understanding and agreed to the plan. I discussed this case in detail with my attending Dr. Estevez Undiagnosed new problem with uncertain prognosis? @ -No Drug Therapy requiring intensive monitoring for toxicity (Heparin, Nitro, Insulin, Cardizem)? @ -No Were any procedures done? @ -No Diagnosis/symptom? @ -Fluid collections of the bilateral breasts Acute, or Chronic, or Acute on Chronic? @ -Acute Uncomplicated (without systemic symptoms) or Complicated (systemic symptoms)? @ -Uncomplicated Side effects of treatment? @ -No Exacerbation, Progression, or Severe Exacerbation? @ -No Poses a threat to life or bodily function? How? (Chest pain, USA, PA, pneumonia, PE, COPD, DKA, ARF, appy, cholecystitis, CVA, Diverticulitis, Homicidal, Suicidal, threat to staff... and all critical care pts) @ -No immediate threat at this time - Lab Data Result diagrams: 04/12/25 20:06 04/12/25 20:06 Lab Results 04/12/25 04/12/25 04/12/25 Range/Units 20:06 20:06 20:06 WBC 5.21 (4.50-10.00) 10*3/uL RBC 4.50 (4.10-5.20) 10*6/uL Hgb 11.8 L (12.0-15.0) g/dL Hct 37.8 (37.2-46.3) % MCV 84.0 (80.0-97.0) fL MCH 26.2 L (27.0-32.0) pg MCHC 31.2 L (32.0-37.0) g/dL Plt Count 112 L (140-440) 10*3/uL MPV 12.6 H (9.5-12.2) fL Immature Gran % (Auto) 0.2 % Neutrophils % 59.1 % Lymphocytes % 25.3 % Monocytes % 9.2 % Eosinophils % 5.4 % Basophils % 0.8 % Immature Gran # 0.01 (0.00-0.04) 10*3/uL Neutrophils # 3.08 (1.80-7.70) 10*3/uL Lymphocytes # 1.32 (0.90-5.00) 10*3/uL Monocytes # 0.48 (0.20-1.00) 10*3/uL Eosinophils # 0.28 (0.04-0.35) 10*3/uL Basophils # 0.04 (0.00-0.10) 10*3/uL Immature Plt Fraction 5.9 (1.1-6.1) % Sodium 139 (137-145) mmol/L Potassium 3.8 (3.5-5.1) mmol/L Chloride 106 (98-107) mmol/L Carbon Dioxide 24 (22-30) mmol/L Anion Gap 9 mmol/L BUN 12 (7-17) mg/dL Creatinine 0.80 (0.52-1.04) mg/dL Est GFR (CKD-EPI)AfAm >90 (>60 ml/min/1.73 sqM) Est GFR (CKD-EPI)NonAf 87 (>60 ml/min/1.73 sqM) Glucose 147 H (74-99) mg/dL Plasma Lactic Acid Tristin 1.3 (0.7-2.0) mmol/L Calcium 9.0 (8.4-10.2) mg/dL Total Bilirubin 0.9 (0.2-1.3) mg/dL AST 53 H (14-36) U/L ALT 45 H (4-34) U/L Alkaline Phosphatase 228 H (38-126) U/L Total Protein 6.6 (6.3-8.2) g/dL Albumin 3.4 L (3.5-5.0) g/dL Disposition Clinical Impression: Fluid collection at surgical site Disposition: HOME SELF-CARE Condition: Good Additional Instructions: Follow-up with your surgeon, call the office tomorrow. Report back to ER with any new or worsening symptoms. Take medication as prescribed. Prescriptions: Sulfamethox-Tmp 800-160Mg [Bactrim DS 800-160 mg] 1 tab PO Q12HR 7 Days #14 tab Cephalexin [Keflex] 500 mg PO Q6HR 7 Days #28 cap Is patient prescribed a controlled substance at d/c from ED?: No Referrals: Sara Velarde MD [Primary Care Provider] - 1-2 days Maren Fajardo MD [STAFF PHYSICIAN] - 1-2 days Time of Disposition: 21:38
[2025-04-12] MEDS: KETOROLAC 15 MG/ML 1 ML VIAL IVP STA (21:57)
[2025-04-12 22:03] VITALS: BP 135/62; PULSE 71; RESP 16
--- NOTE | 2025-04-13 09:01 | USB ---
Patient History: 08/06/2019, Benign Core Biopsy on the left side. Risk Values: Carmenza 5 year model risk: 0.8%. NCI Lifetime model risk: 7.2%. Findings: A complete US of patients area of concern (bilateral areolar fossa) was reviewed. On the right side, there is an approximately 4.9 x 1.2 x 5.0cm complex area seen at patients incision site. On the left side, there is a 6.7 x 3.2 x 7.7cm complex area seen at patients incision site with a small amount of peripheral vascularity. Right breast subareolar fossa fluid collection with moving debris and minimal surrounding vascularity. Left breast subareolar fluid collection with debris and mild surrounding vascularity. IMPRESSION: Bilateral subareolar fluid collections with debris likely representing abscesses. Recommend consultation with patient's breast surgeon. Overall Assessment: Probably benign, BI-RAD 3 Management: Diagnostic Breast Ultrasound of both breasts in 1 month. A clinical breast exam by your physician is recommended on an annual basis and results should be correlated with mammographic findings. This exam should not preclude additional follow-up of suspicious palpable abnormalities. Results were given to the patient verbally at the time of exam. [facility], , 04/12/2025 8:58 PM. Electronically signed and approved by: Shiraz Dean D.O.
== END 2025-04-12 22:28 | disposition home or self-care (01) ==
LOC: EC 19:23
DX: L76.34 Postprocedural seroma of skin and subcutaneous tissue following other procedure (principal); Z87.891 Personal history of nicotine dependence; Z91.018 Allergy to other foods
CPT/HCPCS: 36415; 80053; 83605; 85025; 76642; 99284; 96374; 96375; 96361; J1171; J1885

== ENCOUNTER → 2025-04-14 | Outpatient (CLI) | payer OTHER ==
[2025-04-14 10:05] VITALS: BP 117/76; PULSE 77; RESP 18; TEMP 98.7
--- NOTE | 2025-04-14 10:30 | P.PN ---
Subjective Progress Note Date: 04/14/25 03/31/25 Yovana is status post bilateral central lumpectomy on 03-22-25. Pathology chronic mastitis. She had a symptomatic seroma drained on 03-26-25. Cultures left breast prevotella bivia few. She was seen in the ER on 04-12-25 with bilateral fluid collections at surgical sites. She had drainage on the right side and swelling on the left side. She is not complaining of any fever or chills. She is no Bactrim an keflex. Lungs: Clear Heart: Regular rate and rhythm Incisions: Clean and dry bilateral symptomatic seromas Following informed consent both breasts were prepped. The left breast was prepped with alcohol and the right breast was prepped with iodine. The left breast area of fluctuance was aspirated using an 18-gauge needle and a 20 cc syringe 120 cc of serous fluid was removed. There was complete resolution of the seroma. In the right breast there was a small area of drainage from the midportion of the incision. The breast was prepped and iodine. An 18-gauge needle and a 20 cc syringe was used to aspirate 35 cc of serous fluid. There appeared to be complete resolution of the seroma. The incision was reinforced using a 3-0 nylon suture. The patient tolerated the procedure in stable condition. Impression: Patient doing well postoperatively Follow-up in 1 week Bilateral mammogram in 6 weeks with examination at that time Patient to follow-up sooner any questions or concerns Additional CC's: Yaniv Lala Objective - Vital Signs Vital signs: Vital Signs Temp 98.7 F 04/14/25 10:03 Pulse 77 04/14/25 10:03 Resp 18 04/14/25 10:03 BP 117/76 04/14/25 10:03 Pulse Ox 96 04/14/25 10:03 FiO2 Intake & Output 04/13/25 04/14/25 04/14/25 18:59 06:59 18:59 Weight 103.419 kg
== END ==
LOC: WWCWWP 09:40
PROVIDERS: ATTEND Surgery
DX: Z12.31 Encounter for screening mammogram for malignant neoplasm of breast (principal); F17.200 Nicotine dependence, unspecified, uncomplicated; Z91.018 Allergy to other foods

== ENCOUNTER → 2025-05-16 | Outpatient (CLI) | payer OTHER ==
--- NOTE | 2025-05-16 11:51 | MM ---
Reason for Exam: Screening (asymptomatic). Baseline mammogram. Patient History: Menarche at age 13. First Full-Term at age 26. Postmenopausal. 08/06/2019, Benign Core Biopsy on the left side. Risk Values: Carmenza 5 year model risk: 1.3%. NCI Lifetime model risk: 11.8%. Prior Study Comparison: Patient's first Mammogram. No prior studies available for comparison. Tissue Density: The breasts are heterogeneously dense, which may obscure small masses. Findings: Analyzed By CAD. Scar markers overlie the anterior aspect of both breasts. Occupying most of the anterior to mid left breast, there is a ovoid area measuring up to 10.7 cm, likely corresponding to the fluid collection seen on recent ultrasound. Focal subareolar density on the right measures approximately 2.2 cm. However, additional density extends medially to span up to 7.4 cm. This may also correspond to abnormal fluid seen on patient's recent ultrasound. No suspicious microcalcifications are seen. Overall Assessment: Probably benign, BI-RAD 3 Management: Diagnostic Mammogram of both breasts in 3 months. Diagnostic Breast Ultrasound of both breasts in 3 months. Appropriate ongoing clinical management for any residual fluid collections. Patient should continue monthly self-breast exams. A clinical breast exam by your physician is recommended on an annual basis. This exam should not preclude additional follow-up of suspicious palpable abnormalities. Note on Carmenza scores and lifetime risk: 1. A Carmenza score greater than 3% is considered moderate risk. If this is the case, consider specialist referral to assess eligibility for a risk reducing agent. 2. If overall lifetime risk for the development of breast cancer is 20% or higher, the patient may qualify for future screening with alternating mammogram and breast MRI. [facility], , 05/16/2025 11:49 AM. Electronically signed and approved by: Jonny Davis M.D. Radiologist
== END | disposition home or self-care (01) ==
LOC: RADMAMWWP 10:32
PROVIDERS: ATTEND Surgery
DX: Z12.31 Encounter for screening mammogram for malignant neoplasm of breast (principal); R92.333 Mammographic heterogeneous density, bilateral breasts; Z78.0 Asymptomatic menopausal state
CPT/HCPCS: 77063; 77067

== ENCOUNTER 2025-05-19 17:07 | Emergency (ER) | payer OTHER ==
[2025-05-19 17:13] VITALS: RESP 18
--- NOTE | 2025-05-19 17:51 | ED ---
General Adult HPI - General Source: patient, RN notes reviewed Mode of arrival: ambulatory Limitations: no limitations - History of Present Illness Onset/Timin -: hour(s) Time: 03:00 Location: back, abdomen (Epigastric), left Radiation: flank, other (Groin) Severity scale (1-10): 8 Quality: sharp Consistency: intermittent Associated Symptoms: headaches, nausea/vomiting, other (Dysuria, melena) <Jn Lemon - Last Filed: 05/19/25 20:05> <Marti Weber - Last Filed: 05/19/25 23:57> - General Chief complaint: Urogenital Stated complaint: back and groin pain, burning urination Time Seen by Provider: 05/19/25 17:21 - History of Present Illness Initial comments: This is a 50-year-old female with history including CAD, A-fib, DM, nephrolithiasis presenting for urinary symptoms since 0300 this morning. Patient endorses dysuria and left back pain (/10) radiating to left flank with associated left flank edema and decreased urinary output. Patient also mentions epigastric pain, nausea and frontal headache. Patient notes stool appearing much darker than usual today with history of GERD and use of omeprazole. Denies fever, chills, chest pain, dyspnea, vomiting, dizziness, hematuria. (Jn Lemon) - Related Data Home Medications Medication Instructions Recorded Confirmed Atorvastatin Calcium [Lipitor] 40 mg PO DAILY 09/15/24 04/21/25 Gabapentin [Neurontin] 300 mg PO BID 09/23/24 04/21/25 Metoprolol Tartrate [Lopressor] 25 mg PO BID 11/01/24 04/21/25 Omeprazole 20 mg PO DAILY 12/07/24 04/21/25 Empagliflozin [Jardiance] 10 mg PO DAILY 12/15/24 04/21/25 Ferrous Sulfate [Iron (65 MG 325 mg PO DAILY 12/15/24 04/21/25 Elemental)] Nitroglycerin Sl Tabs [Nitrostat] 0.4 mg SL Q5M PRN 12/15/24 04/21/25 traMADol HCL 50 mg PO Q4-6H PRN 02/02/25 04/21/25 Ergocalciferol [Vitamin D2 (1250 1,250 mcg PO MO 03/10/25 04/21/25 Mcg = 20745 Iu)] Previous Rx's Medication Instructions Recorded Aspirin 81 mg PO DAILY tab 10/01/24 Acetaminophen Tab [Tylenol] 650 mg PO Q6HR PRN #90 tab 12/15/24 Cephalexin [Keflex] 500 mg PO Q6HR 1 Days #20 cap 03/28/25 Cephalexin [Keflex] 500 mg PO Q6HR 7 Days #28 cap 04/12/25 Sulfamethox-Tmp 800-160Mg [Bactrim 1 tab PO Q12HR 7 Days #14 tab 04/12/25 DS 800-160 mg] Cyclobenzaprine [Flexeril] 10 mg PO TID PRN #20 tab 05/19/25 Diclofenac Sodium [Voltaren] 75 mg PO BID PRN #20 tab 05/19/25 Ondansetron Odt [Zofran Odt] 4 mg PO Q8HR PRN #20 tab 05/19/25 Allergies Allergy/AdvReac Type Severity Reaction Status Date / Time capsaicin Allergy Rash/Hives/ Verified 05/19/25 17:10 Swelling Review of Systems ROS Other: All systems not noted in ROS Statement are negative. <Jn Lemon - Last Filed: 05/19/25 20:05> ROS Other: All systems not noted in ROS Statement are negative. <Marti Weber - Last Filed: 05/19/25 23:57> ROS Statement: Those systems with pertinent positive or pertinent negative responses have been documented in the HPI. Past Medical History Past Medical History: Atrial Fibrillation, Coronary Artery Disease (CAD), Heart Failure, Diabetes Mellitus, GERD/Reflux, Hyperlipidemia, Hypertension, Liver Disease, Pneumonia, Syncope Additional Past Medical History / Comment(s): Hx pneumonia yrs ago. Hx kidney stones. Diet controlled diabetic (pt denies diabetes 02/02/25). Seasonal allergies. Left internal carotid artery stenosis. Cirrhosis of liver. No menses in 4 1/2 yrs, states body does not make enough Estrogen. Recurrent pleural effusions. Pericardial effusion, bilateral breast abscesses for the past 5 years History of Any Multi-Drug Resistant Organisms: None Reported Past Surgical History: Appendectomy, Breast Surgery, Cholecystectomy, Coronary Bypass/CABG, Heart Catheterization With Stent, Orthopedic Surgery, Tubal Ligation Additional Past Surgical History / Comment(s): Right wrist carpal tunnel surgery, dental surgery- teeth removed, left breast abcess I&D X3, right breast abcess I&D X2, left ankle surgery, triple CABG 08/09/2024, multiple thoracentesis. Cardiac sents x2 and bilateral carotid stents 08/09/24. Left VATS with talc ple urodesis and placement of left-sided pleurx catheter 09/29/[address] Ortiz; subxiphoid pericardial window 10/04/2024. March 22 nipples removed. Past Anesthesia/Blood Transfusion Reactions: No Reported Reaction, Family History of Problems w/ Anesthesia Additional Past Anesthesia/Blood Transfusion Reaction / Comment(s): No blood transfusion to date. Mom stopped breathing during a surgery and was resuscitated. Date of Last Stent Placement:: 07/30/24 Past Psychological History: Anxiety, Bipolar, Depression Smoking Status: Former smoker Past Alcohol Use History: None Reported Past Drug Use History: None Reported - Past Family History Mother Family Medical History: Cancer Additional Family Medical History / Comment(s): schizoaffective disorder, uteral and cervical cancer Father History Unknown: Yes Family Medical History: Unable to Obtain Additional Family Medical History / Comment(s): Patient did not know her father <Jn Lemon - Last Filed: 05/19/25 20:05> General Exam Limitations: no limitations General appearance: alert, in no apparent distress Head exam: Present: atraumatic, normocephalic, normal inspection Eye exam: Present: normal appearance, PERRL, EOMI. Absent: scleral icterus, conjunctival injection, periorbital swelling ENT exam: Present: normal exam, mucous membranes moist Neck exam: Present: normal inspection. Absent: tenderness, meningismus, lymphadenopathy Respiratory exam: Present: normal lung sounds bilaterally. Absent: respiratory distress, wheezes, rales, rhonchi, stridor, accessory muscle use, decreased breath sounds, prolonged expiratory Cardiovascular Exam: Present: regular rate, normal rhythm, systolic murmur (2/6). Absent: diastolic murmur, rubs, gallop, clicks GI/Abdominal exam: Present: soft, tenderness (Positive epigastric, periumbi lical, hypogastric, LLQ and LUQ TTP with voluntary guarding), guarding, normal bowel sounds. Absent: distended, rebound, rigid, mass, pulsatile mass, hernia Rectal exam: Present: normal rectal tone. Absent: black stool, bloody stool, fecal impaction, hemorrhoids, mass, tenderness Extremities exam: Present: normal inspection, full ROM, normal capillary refill. Absent: tenderness, pedal edema, joint swelling, calf tenderness Back exam: Present: CVA tenderness (L). Absent: CVA tenderness (R) Neurological exam: Present: alert, oriented X3, CN II-XII intact Psychiatric exam: Present: normal affect, normal mood Skin exam: Present: warm, dry, intact, normal color. Absent: rash <Jn Lemon - Last Filed: 05/19/25 20:05> Course Vital Signs 05/19/25 05/19/25 05/19/25 17:10 18:18 23:16 Temperature 98.5 F 97.8 F Pulse Rate 70 65 56 L Respiratory 18 18 18 Rate Blood Pressure 120/70 105/72 112/54 O2 Sat by Pulse 95 98 98 Oximetry Medical Decision Making - Lab Data Result diagrams: 05/19/25 18:03 05/19/25 18:03 <Jn Lemon - Last Filed: 05/19/25 20:05> - Lab Data Result diagrams: 05/19/25 18:03 05/19/25 18:03 - Radiology Data Radiology results: report reviewed, image reviewed <Marti Weber - Last Filed: 05/19/25 23:57> - Medical Decision Making Was pt. sent in by a medical professional or institution (ANDREW Christy, DOCUMENT CONTROL MANAGER, urgent care, hospital, or detention...) When possible be specific @ -[No] Did you speak to anyone other than the patient for history (EMS, parent, family, police, friend...)? What history was obtained from this source @ -[No] Did you review nursing and triage notes (agree or disagree)? Why? @ -[I reviewed and agree with nursing and triage notes] Were old charts reviewed (outside hosp., previous admission, EMS record, old EKG, old radiological studies, urgent care reports/EKG's, detention records)? Report findings @ -[No old charts were reviewed] Differential Diagnosis (chest pain, altered mental status, abdominal pain women, abdominal pain men, vaginal bleeding, weakness, fever, dyspnea, syncope, headache, dizziness, GI bleed, back pain, seizure, CVA, palpatations, mental health, musculoskeletal)? @ -Differential Abdominal Pain Women: Appendicitis, Cholecystitis, diverticulosis, ischemic bowel, pancreatitis, hepatitis, UTI, gastroenteritis, AAA, incarcerated hernia, bowel obstruction, constipation, inflammatory bowel, hepatitis, peptic ulcer disease, splenic infarction, perforated viscus, vulvitis, ovarian torsion, PID, kidney stone, placenta abruption, this is not meant to be an all-inclusive list Differential Back Pain: Strain, zoster, cauda equina syndrome, epidural abscess, vertebral osteomyelitis, discitis, fracture, subluxation, disc herniation, DJD, spinal stenosis, dissection, AAA, pancreatitis, peptic ulcer disease, pyelonephritis, kidney stone, this is not meant to be an all-inclusive list. Differential GI Bleed: Esophageal varices, aortoenteric fistula, Meg-Hart, gastritis, peptic ulcer disease, diverticulosis, inflammatory bowel disease, hemorrhoids, fissure, colitis, malignancy, Meckel's diverticulum, this is not meant to be an all- inclusive list. EKG interpreted by me (3pts min.). @ -Not done X-rays interpreted by me (1pt min.). @ -[None done] CT interpreted by me (1pt min.). @ -AP CT results pending U/S interpreted by me (1pt. min.). @ -[None done] What testing was considered but not performed or refused? (CT, X-rays, U/S, labs)? Why? @ -[None] What meds were considered but not given or refused? Why? @ -[None] Did you discuss the management of the patient with other professionals (professionals i.e. , PA, DOCUMENT CONTROL MANAGER, lab, RT, psych nurse, social science professor, pattern grader, teacher, aboriginal liaison officer, case advocate)? Give summary @ -[No] Was smoking cessation discussed for >3mins.? @ -[No] Was critical care preformed (if so, how long)? @ -[No] Were there social determinants of health that impacted care today? How? (Homelessness, low income, unemployed, alcoholism, drug addiction, transportation, low edu. Level, literacy, decrease access to med. care, [facility], rehab)? @ -[No] Was there de-escalation of care discussed even if they declined (Discuss DNR or withdrawal of care, Hospice)? DNR status @ -[No] What co-morbidities impacted this encounter? (DM, HTN, Smoking, COPD, CAD, Cancer, CVA, ARF, Chemo, Hep., AIDS, mental health diagnosis, sleep apnea, morbid obesity)? @ -[None] Was patient admitted / discharged? Hospital course, mention meds given and route, prescriptions, significant lab abnormalities, going to OR and other pertinent info. @ -[hospital course] Undiagnosed new problem with uncertain prognosis? @ -[No] Drug Therapy requiring intensive monitoring for toxicity (Heparin, Nitro, Insulin, Cardizem)? @ -[No] Were any procedures done? @ -[No] Diagnosis/symptom? @ -[default] Acute, or Chronic, or Acute on Chronic? @ -Acute Uncomplicated (without systemic symptoms) or Complicated (systemic symptoms)? @ -Complicated Side effects of treatment? @ -[No] Exacerbation, Progression, or Severe Exacerbation? @ -[No] Poses a threat to life or bodily function? How? (Chest pain, [place], [place], pneumonia, PE, COPD, DKA, ARF, appy, cholecystitis, CVA, Diverticulitis, Homicidal, Suicidal, threat to staff... and all critical care pts) @ -[No] (Jn Lemon) Case signed out to me by Jn Lemon PA-C, at shift completion pending UA results and CTA. Urinalysis negative for signs of infection. CTA of the abdomen and pelvis reveals no acute process to account for her symptoms. The cause of her symptoms at this point is not entirely clear. It could be musculoskeletal in nature. She has been evaluated here multiple times in the past for similar complaints. Symptoms were treated in the emergency department. Prescription for diclofenac, Flexeril, and Zofran provided with dosing instructions reviewed to see if that offers any benefit to her symptoms. Otherwise advised she follow-up with her PCP for reevaluation. Patient discharged home in stable condition. Case discussed with ED attending Dr. Byrd. Return precautions reviewed in depth, the patient is instructed to return to the emergency department with any new, worsening, or concerning symptoms. Patient verbalized understanding. (Marti Weber) - Lab Data Lab Results 05/19/25 05/19/25 05/19/25 Range/Units 18:03 18:03 18:03 WBC 5.68 (4.50-10.00) 10*3/uL RBC 4.77 (4.10-5.20) 10*6/uL Hgb 13.2 (12.0-15.0) g/dL Hct 40.5 (37.2-46.3) % MCV 84.9 (80.0-97.0) fL MCH 27.7 (27.0-32.0) pg MCHC 32.6 (32.0-37.0) g/dL Plt Count 106 L (140-440) 10*3/uL MPV 13.5 H (9.5-12.2) fL Immature Gran % (Auto) 0.4 % Neutrophils % 58.5 % Lymphocytes % 24.3 % Monocytes % 12.9 % Eosinophils % 3.2 % Basophils % 0.7 % Immature Gran # 0.02 (0.00-0.04) 10*3/uL Neutrophils # 3.33 (1.80-7.70) 10*3/uL Lymphocytes # 1.38 (0.90-5.00) 10*3/uL Monocytes # 0.73 (0.20-1.00) 10*3/uL Eosinophils # 0.18 (0.04-0.35) 10*3/uL Basophils # 0.04 (0.00-0.10) 10*3/uL Manual Slide Review Performed RBC Morphology Normal PT 12.0 (10.0-12.5) sec INR 1.1 (<1.2) APTT 26.4 (22.0-30.0) sec Sodium 139 (137-145) mmol/L Potassium 4.2 (3.5-5.1) mmol/L Chloride 107 (98-107) mmol/L Carbon Dioxide 21 L (22-30) mmol/L Anion Gap 11 mmol/L BUN 13 (7-17) mg/dL Creatinine 0.79 (0.52-1.04) mg/dL Est GFR (CKD-EPI)AfAm >90 (>60 ml/min/1.73 sqM) Est GFR (CKD-EPI)NonAf 89 (>60 ml/min/1.73 sqM) Glucose 151 H (74-99) mg/dL Plasma Lactic Acid Tristin (0.7-2.0) mmol/L Calcium 8.6 (8.4-10.2) mg/dL Total Bilirubin 1.1 (0.2-1.3) mg/dL AST 63 H (14-36) U/L ALT 51 H (4-34) U/L Alkaline Phosphatase 194 H (38-126) U/L Total Protein 6.7 (6.3-8.2) g/dL Albumin 3.6 (3.5-5.0) g/dL Lipase 169 (23-300) U/L Urine Color Urine Appearance (Clear) Urine pH (5.0-8.0) Ur Specific Adams (1.001-1.035) Urine Protein (Negative) Urine Glucose (UA) (Negative) Urine Ketones (Negative) Urine Blood (Negative) Urine Nitrite (Negative) Urine Bilirubin (Negative) Urine Urobilinogen (<2.0) mg/dL Ur Leukocyte Esterase (Negative) Stool Occult Blood (Negative) 05/19/25 05/19/25 05/19/25 Range/Units 18:03 20:00 22:10 WBC (4.50-10.00) 10*3/uL RBC (4.10-5.20) 10*6/uL Hgb (12.0-15.0) g/dL Hct (37.2-46.3) % MCV (80.0-97.0) fL MCH (27.0-32.0) pg MCHC (32.0-37.0) g/dL Plt Count (140-440) 10*3/uL MPV (9.5-12.2) fL Immature Gran % (Auto) % Neutrophils % % Lymphocytes % % Monocytes % % Eosinophils % % Basophils % % Immature Gran # (0.00-0.04) 10*3/uL Neutrophils # (1.80-7.70) 10*3/uL Lymphocytes # (0.90-5.00) 10*3/uL Monocytes # (0.20-1.00) 10*3/uL Eosinophils # (0.04-0.35) 10*3/uL Basophils # (0.00-0.10) 10*3/uL Manual Slide Review RBC Morphology PT (10.0-12.5) sec INR (<1.2) APTT (22.0-30.0) sec Sodium (137-145) mmol/L Potassium (3.5-5.1) mmol/L Chloride (98-107) mmol/L Carbon Dioxide (22-30) mmol/L Anion Gap mmol/L BUN (7-17) mg/dL Creatinine (0.52-1.04) mg/dL Est GFR (CKD-EPI)AfAm (>60 ml/min/1.73 sqM) Est GFR (CKD-EPI)NonAf (>60 ml/min/1.73 sqM) Glucose (74-99) mg/dL Plasma Lactic Acid Tristin 1.5 (0.7-2.0) mmol/L Calcium (8.4-10.2) mg/dL Total Bilirubin (0.2-1.3) mg/dL AST (14-36) U/L ALT (4-34) U/L Alkaline Phosphatase (38-126) U/L Total Protein (6.3-8.2) g/dL Albumin (3.5-5.0) g/dL Lipase (23-300) U/L Urine Color Light Yellow Urine Appearance Clear (Clear) Urine pH 5.5 (5.0-8.0) Ur Specific Adams >1.050 H (1.001-1.035) Urine Protein Negative (Negative) Urine Glucose (UA) 4+ H (Negative) Urine Ketones Negative (Negative) Urine Blood Negative (Negative) Urine Nitrite Negative (Negative) Urine Bilirubin Negative (Negative) Urine Urobilinogen <2.0 (<2.0) mg/dL Ur Leukocyte Esterase Negative (Negative) Stool Occult Blood Negative (Negative) Disposition <Jn Lemon - Last Filed: 05/19/25 20:05> Is patient prescribed a controlled substance at d/c from ED?: No Time of Disposition: 23:25 <Marti Weber - Last Filed: 05/19/25 23:57> Clinical Impression: Abdominal pain, Back pain Disposition: HOME SELF-CARE Instructions (If sedation given, give patient instructions): Abdominal Pain (ED) Additional Instructions: Return to the emergency department with any new, worsening, or concerning symptoms. Try taking the diclofenac twice daily for pain control. You may take this with Tylenol. Take the Flexeril up to 3 times daily, be aware that this may make you drowsy. Take the Zofran up to every 8 hours as needed for nausea and vomiting. Follow up with your primary care provider in 1-2 days. Prescriptions: Cyclobenzaprine [Flexeril] 10 mg PO TID PRN #20 tab PRN Reason: Pain Diclofenac Sodium [Voltaren] 75 mg PO BID PRN #20 tab PRN Reason: Pain Ondansetron Odt [Zofran Odt] 4 mg PO Q8HR PRN #20 tab PRN Reason: Nausea And Vomiting Referrals: Sara Velarde MD [Primary Care Provider] - 1-2 days
[2025-05-19] MEDS: FAMOTIDINE 20 MG/2 ML VIAL IV STA (18:10)
[2025-05-19] MEDS: PANTOPRAZOLE 40 MG/10 ML VIAL IVP STA (18:10)
[2025-05-19] MEDS: ONDANSETRON 4 MG/2 ML VIAL IVP STA ×2 (18:10→23:49)
[2025-05-19] MEDS: HYDROmorphone 1 MG/ML 1 ML SYRINGE IVP STA ×2 (18:11→23:19)
[2025-05-19] MEDS: ACETAMINOPHEN TAB 500 MG TAB PO STA (18:11)
[2025-05-19] MEDS: SODIUM CHLORIDE 0.9% 1,000 ML IV STA (18:11)
[2025-05-19 18:12] LABS: Basophils # (A) 0.04 10*3/uL (0.00-0.10); Basophils % (A) 0.7 %; Eosinophils # (A) 0.18 10*3/uL (0.04-0.35); Eosinophils % (A) 3.2 %; HCT 40.5 % (37.2-46.3); HGB 13.2 g/dL (12.0-15.0); Lymphocytes # (A) 1.38 10*3/uL (0.90-5.00); Lymphocytes % (A) 24.3 %; MCH 27.7 pg (27.0-32.0); MCHC 32.6 g/dL (32.0-37.0); MCV 84.9 fL (80.0-97.0); Mean Platelet Volume 13.5 fL (9.5-12.2); Monocytes # (A) 0.73 10*3/uL (0.20-1.00); Monocytes % (A) 12.9 %; Neutrophils # (A) 3.33 10*3/uL (1.80-7.70); Neutrophils % (A) 58.5 %; Platelet Count 106 10*3/uL (140-440); RBC 4.77 10*6/uL (4.10-5.20); RDW 15.3 % (11.5-14.5); WBC 5.68 10*3/uL (4.50-10.00)
[2025-05-19 18:27] LABS: ALT 51 U/L (4-34); AST 63 U/L (14-36); African American GFR (CKD) >90 (>60 ml/min/1.73 sqM); Albumin 3.6 g/dL (3.5-5.0); Alkaline Phosphatase 194 U/L (38-126); Anion Gap 11 mmol/L; Blood Urea Nitrogen 13 mg/dL (7-17); Calcium 8.6 mg/dL (8.4-10.2); Carbon Dioxide 21 mmol/L (22-30); Chloride 107 mmol/L (98-107); Glucose 151 mg/dL (74-99); Lipase 169 U/L (23-300); Non-African American GFR(CKD) 89 (>60 ml/min/1.73 sqM); Potassium 4.2 mmol/L (3.5-5.1); Sodium 139 mmol/L (137-145); Total Bilirubin 1.1 mg/dL (0.2-1.3); Total Protein 6.7 g/dL (6.3-8.2)
[2025-05-19 18:45] LABS: INR 1.1 (<1.2); Partial Thromboplastin Time 26.4 sec (22.0-30.0)
[2025-05-19 19:02] LABS: RBC Morphology Normal
--- NOTE | 2025-05-19 21:43 | CT ---
EXAMINATION TYPE: CT angio abdomen pelvis CT DLP: 3814.8 mGycm, Automated exposure control for dose reduction was used. DATE OF EXAM: 05/19/2025 9:00 PM COMPARISON:CT abdomen and pelvis 04/23/2025. . CLINICAL INDICATION:Female, 50 years old with history of GI bleed/LLQ pain/TTP, melena, possible left stone; LLQ abdominal pain and GI bleed protocol TECHNIQUE: Multiple thin slice sub-millimeter images were obtained through the abdomen and pelvis bef ore and after administration of contrast. Patient was given Isovue 370, 100 cc intravenously. 3-D r econstructed images and maximum intensity projection images were obtained of the abdomen and pelvis. FINDINGS: CTA Abdomen and pelvis: The abdominal aorta does not demonstrate aneurysmal dilatation. Mild atheros clerotic plaquing is identified within the abdominal aorta. The origins of the superior mesenteric a rtery, renal arteries, inferior mesenteric artery, and celiac axis are patent. . Mild stenosis at the origin of the right renal artery secondary to calcified plaque. Atherosclerotic plaquing with some m ural thrombus formation is identified in the common iliac arteries. The bilateral internal and exter nal iliac arteries are patent with moderate amount of calcified and noncalcified plaque. No significa nt stenosis. The bilateral common femoral arteries are patent without significant stenosis. The bilat eral visualized superficial and deep femoral arteries are widely patent. VISCERA: The liver, spleen, adrenal glands, kidneys, pancreas, and gallbladder are not optimally enha nced due the arterial phase utilized. LIVER: Heterogenous hypodense appearance of the liver with surface nodularity. No focal lesion identi fied. GALLBLADDER AND BILE DUCTS: Gallbladder is surgically absent. No biliary ductal dilatation. PANCREAS: Unremarkable. SPLEEN: Enlarged measuring 14.5 cm in CC dimension. Hypodense 1.3 cm benign-appearing lesion within t he spleen consistent with a cyst. ADRENAL GLANDS: Unremarkable. KIDNEYS AND URETERS: No evidence of hydronephrosis. Few nonobstructing right renal calculi with large st in the upper pole measuring up to 6 mm. Several nonobstructing left renal calculi with largest in the left upper pole measuring up to 7 mm. No ureteral calculus. Left renal stable subcentimeter corti zandra hyperdense cysts likely representing a proteinaceous/hemorrhagic cyst. No follow-up recommended. Contrast is demonstrated within both collecting systems and proximal ureters on the delayed phase. PELVIS BLADDER: Unremarkable contrast is seen layering within the urinary bladder on the delayed phase. REPRODUCTIVE: Unremarkable. ABDOMEN & PELVIS STOMACH AND BOWEL: Stomach and duodenum are unremarkableno focal bowel wall thickening or surrounding inflammatory changes. No hyperdense material identified within the bowel to suggest active GI bleed. No evidence of bowel obstruction. PERITONEUM: No evidence of pneumoperitoneum or free fluid. MUSCULOSKELETAL: No acute osseous abnormalities LYMPH NODES: No evidence for lymphadenopathy. SOFT TISSUE/ABDOMINAL WALL: Unremarkable LOWER CHEST: The visualized lung bases are clear. Mild cardiomegaly. Partial visualization of median sternotomy wires. IMPRESSION: 1. No evidence of active GI bleed or any other acute abdominal/pelvic process. 2. Redemonstration of hepatic cirrhosis with evidence of portal hypertension including splenomegaly. No ascites. 3. Nonobstructing bilateral renal calculi. [facility], , 05/19/2025 9:41 PM
[2025-05-19 22:48] LABS: Appearance,Urine Clear (Clear); Bilirubin,Urine Negative (Negative); Blood,Urine Negative (Negative); Color,Urine Light Yellow; Glucose,Urine (UA) 4+ (Negative); Ketones,Urine Negative (Negative); Leukocyte Esterase,Urine Negative (Negative); Nitrite,Urine Negative (Negative); PH, Urine 5.5 (5.0-8.0); Protein,Urine Negative (Negative); Urobilinogen,Urine <2.0 mg/dL (<2.0)
[2025-05-19 22:49] LABS: Specific Gravity,Urine >1.050 (1.001-1.035)
[2025-05-19 23:19] VITALS: PULSE 56
[2025-05-19] MEDS: KETOROLAC 15 MG/ML 1 ML VIAL IVP STA (23:47)
[2025-05-19] MEDS: ACET/COD 300 MG/30 MG STARTER PACK 6 TAB BTL PO STA (23:53)
[2025-05-19] MEDS: ONDANSETRON 4 MG ODT STARTER PACK 2 TAB BTL PO STA (23:54)
[2025-05-20 00:08] VITALS: BP 126/59; TEMP 97.7
== END 2025-05-20 00:08 | disposition home or self-care (01) ==
LOC: EC 17:07
DX: R10.13 Epigastric pain (principal); M54.9 Dorsalgia, unspecified; Z87.891 Personal history of nicotine dependence; Z91.018 Allergy to other foods
CPT/HCPCS: 36415; 80053; 83605; 83690; 85025; 85610; 85730; 82272; 81003; 74174; 99284; 96374; 96375; 96376 ×2; 96361; J2405; J1171; J1885; S0119; Q9967; J2470; J1308

== ENCOUNTER 2025-06-03 15:38 | Emergency (ER) | payer BC, OTHER ==
--- NOTE | 2025-06-03 16:22 | ED ---
General Adult HPI - General Chief complaint: Urogenital Stated complaint: Urogenital Time Seen by Provider: 06/03/25 16:02 Source: patient Mode of arrival: ambulatory - History of Present Illness Initial comments: Dictation was produced using [employer] dictation software. please excuse any grammatical, word or spelling errors. Chief Complaint: 50-year-old female with dysuria History of Present Illness: Patient 50-year-old female well-known to emergency department for multiple visitations for myriad of complaints states for the last 1 to 2 days she has been having dysuria. Patient thinks that she might have a UTI. States that she also has bilateral back pain. Denies any fevers or constitutional symptoms. States that most of her symptoms are apparent whenever she urinates. The ROS documented in this emergency department record has been reviewed and confirmed by me. Those systems with pertinent positive or negative responses have been documented in the HPI. All other systems are other negative and/or noncontributory. - Related Data Home Medications Medication Instructions Recorded Confirmed Atorvastatin Calcium [Lipitor] 40 mg PO DAILY 09/15/24 04/21/25 Gabapentin [Neurontin] 300 mg PO BID 09/23/24 04/21/25 Metoprolol Tartrate [Lopressor] 25 mg PO BID 11/01/24 04/21/25 Omeprazole 20 mg PO DAILY 12/07/24 04/21/25 Empagliflozin [Jardiance] 10 mg PO DAILY 12/15/24 04/21/25 Ferrous Sulfate [Iron (65 MG 325 mg PO DAILY 12/15/24 04/21/25 Elemental)] Nitroglycerin Sl Tabs [Nitrostat] 0.4 mg SL Q5M PRN 12/15/24 04/21/25 traMADol HCL 50 mg PO Q4-6H PRN 02/02/25 04/21/25 Ergocalciferol [Vitamin D2 (1250 1,250 mcg PO MO 03/10/25 04/21/25 Mcg = 09140 Iu)] Previous Rx's Medication Instructions Recorded Aspirin 81 mg PO DAILY tab 10/01/24 Acetaminophen Tab [Tylenol] 650 mg PO Q6HR PRN #90 tab 12/15/24 Cephalexin [Keflex] 500 mg PO Q6HR 1 Days #20 cap 03/28/25 Cephalexin [Keflex] 500 mg PO Q6HR 7 Days #28 cap 04/12/25 Sulfamethox-Tmp 800-160Mg [Bactrim 1 tab PO Q12HR 7 Days #14 tab 04/12/25 DS 800-160 mg] Cyclobenzaprine [Flexeril] 10 mg PO TID PRN #20 tab 05/19/25 Diclofenac Sodium [Voltaren] 75 mg PO BID PRN #20 tab 05/19/25 Ondansetron Odt [Zofran Odt] 4 mg PO Q8HR PRN #20 tab 05/19/25 Allergies Allergy/AdvReac Type Severity Reaction Status Date / Time capsaicin Allergy Rash/Hives/ Verified 05/19/25 17:10 Swelling Review of Systems ROS Statement: Those systems with pertinent positive or pertinent negative responses have been documented in the HPI. ROS Other: All systems not noted in ROS Statement are negative. Past Medical History Past Medical History: Atrial Fibrillation, Coronary Artery Disease (CAD), Heart Failure, GERD/Reflux, Hyperlipidemia, Hypertension, Liver Disease, Pneumonia, Syncope Additional Past Medical History / Comment(s): Hx pneumonia yrs ago. Hx kidney stones. Diet controlled diabetic (pt denies diabetes 02/02/25). Seasonal allergies. Left internal carotid artery stenosis. Cirrhosis of liver. No menses in 4 1/2 yrs, states body does not make enough Estrogen. Recurrent pleural effusions. Pericardial effusion, bilateral breast abscesses for the past 5 years History of Any Multi-Drug Resistant Organisms: None Reported Past Surgical History: Appendectomy, Breast Surgery, Cholecystectomy, Coronary Bypass/CABG, Heart Catheterization With Stent, Orthopedic Surgery, Tubal Ligation Additional Past Surgical History / Comment(s): Right wrist carpal tunnel surgery, dental surgery- teeth removed, left breast abcess I&D X3, right breast abcess I&D X2, left ankle surgery, triple CABG 08/09/2024, multiple thoracentesis. Cardiac sents x2 and bilateral carotid stents 08/09/24. Left VATS with talc pleurodesis and placement of left-sided pleurx catheter 09/29/[address] Ortiz; subxiphoid pericardial window 10/04/2024. March 22 nipples removed. Past Anesthesia/Blood Transfusion Reactions: No Reported Reaction, Family History of Problems w/ Anesthesia Additional Past Anesthesia/Blood Transfusion Reaction / Comment(s): No blood transfusion to date. Mom stopped breathing during a surgery and was resuscitated. Date of Last Stent Placement:: 07/30/24 Past Psychological History: Anxiety, Bipolar, Depression Smoking Status: Former smoker Past Alcohol Use History: None Reported Past Drug Use History: None Reported - Past Family History Mother Family Medical History: Cancer Additional Family Medical History / Comment(s): schizoaffective disorder, uteral and cervical cancer Father History Unknown: Yes Family Medical History: Unable to Obtain Additional Family Medical History / Comment(s): Patient did not know her father General Exam - General Exam Comments Initial Comments: PHYSICAL EXAM: General Impression: Alert and oriented x3, not in acute distress HEENT: Normocephalic atraumatic, extra-ocular movements intact, pupils equal and reactive to light bilaterally, mucous membranes moist. Cardiovascular: Heart regular rate and rhythm Chest: Able to complete full sentences, no retractions, no tachypnea Abdomen: abdomen soft, non-tender, non-distended, no organomegaly Musculoskeletal: Pulses present and equal in all extremities, no peripheral edema Motor: no focal deficits noted Neurological: CN II-XII grossly intact, no focal motor or sensory deficits noted Skin: Intact with no visualized rashes Psych: Normal affect and mood Course Vital Signs 06/03/25 15:48 Temperature 98.3 F Pulse Rate 102 H Respiratory 18 Rate Blood Pressure 155/81 O2 Sat by Pulse 95 Oximetry Medical Decision Making - Medical Decision Making Was pt. sent in by a medical professional or institution (, PA, FLIGHT OPERATIONS ENGINEER, urgent ca re, hospital, or group home...) When possible be specific @ -No Did you speak to anyone other than the patient for history (EMS, parent, family, police, friend...)? What history was obtained from this source @ -No Did you review nursing and triage notes (agree or disagree)? Why? @ -I reviewed and agree with nursing and triage notes Were old charts reviewed (outside hosp., previous admission, EMS record, old EKG, old radiological studies, urgent care reports/EKG's, group home records)? Report findings @ -No old charts were reviewed Differential Diagnosis (chest pain, altered mental status, abdominal pain women, abdominal pain men, vaginal bleeding, musculoskeletal, weakness, fever, dyspnea, syncope, headache, dizziness, GI bleed, back pain, seizure, CVA, palpatations, mental health)? @ -Differential Abdominal Pain Women: Appendicitis, Cholecystitis, diverticulosis, ischemic bowel, pancreatitis, hepatitis, UTI, gastroenteritis, AAA, incarcerated hernia, bowel obstruction, c onstipation, inflammatory bowel, hepatitis, peptic ulcer disease, splenic infarction, perforated viscus, vulvitis, ovarian torsion, PID, kidney stone, placenta abruption, this is not meant to be an all-inclusive list EKG interpreted by me (3pts min.). @ -None done X-rays interpreted by me (1pt min.). @ -None done CT interpreted by me (1pt min.). @ -None done U/S interpreted by me (1pt. min.). @ -None done What testing was considered but not performed or refused? (CT, X-rays, U/S, labs)? Why? @ -None What meds were considered but not given or refused? Why? @ -None Was smoking cessation discussed for >3mins.? @ -No Were there social determinants of health that impacted care today? How? (Homelessness, low income, unemployed, alcoholism, drug addiction, transportation, low edu. Level, literacy, decrease access to med. care, custodial, rehab)? @ -History of opiate abuse Was there de-escalation of care discussed even if they declined (Discuss DNR or withdrawal of care, Hospice)? DNR status @ -No What co-morbidities impacted this encounter? (DM, HTN, Smoking, COPD, CAD, Cancer, CVA, ARF, Chemo, Hep., AIDS, mental health diagnosis, sleep apnea, morbid obesity)? @ -None Was patient admitted / discharged? Hospital course, mention meds given and route, prescriptions, significant lab abnormalities, going to OR and other pertinent info. @ -50-year-old female presents emergency department dysuria. Vital signs upon arrival are within acceptable limits. Laboratory evaluation obtained. Urinalysis shows dirty catch. Rest of labs unremarkable. Patient requesting Dilaudid. Given analgesics with proving of symptoms. Patient's urine will be sent for culture. Otherwise patient reevaluated bedside at 5:45 PM found to be stable to condition. Patient discharged advised follow-up with primary care doctor. Did you discuss the management of the patient with other professionals (pr ofessionals i.e. , PA, FLIGHT OPERATIONS ENGINEER, lab, RT, psych nurse, director social welfare, mixing machine attendant, teacher, medical officer psychiatry, hospice case manager)? Give summary @ -No Was critical care preformed (if so, how long)? @ -No Undiagnosed new problem with uncertain prognosis? @ -No Drug Therapy requiring intensive monitoring for toxicity (Heparin, Nitro, Insulin, Cardizem)? @ -No Were any procedures done? @ -No Diagnosis/symptom? Acute, or Chronic, or Acute on Chronic? Uncomplicated (without systemic symptoms) or Complicated (systemic symptoms)? @ -Dysuria Side effects of treatment? @ -No Exacerbation, Progression, or Severe Exacerbation? @ -No Poses a threat to life or bodily function? How? (Chest pain, [place], [place], pneumonia, PE, COPD, DKA, ARF, appy, cholecystitis, CVA, Diverticulitis, Homicidal, Suicidal, threat to staff... and all critical care pts) @ -No - Lab Data Result diagrams: 06/03/25 16:26 06/03/25 16:26 Lab Results 06/03/25 06/03/25 06/03/25 Range/Units 16:26 16:26 16:28 WBC 3.49 L (4.50-10.00) 10*3/uL RBC 4.32 (4.10-5.20) 10*6/uL Hgb 12.3 (12.0-15.0) g/dL Hct 37.2 (37.2-46.3) % MCV 86.1 (80.0-97.0) fL MCH 28.5 (27.0-32.0) pg MCHC 33.1 (32.0-37.0) g/dL Plt Count 73 L (140-440) 10*3/uL MPV 12.5 H (9.5-12.2) fL Immature Gran % (Auto) 0 % Neutrophils % 61.2 % Lymphocytes % 23.8 % Monocytes % 11.2 % Eosinophils % 2.9 % Basophils % 0.9 % Immature Gran # 0.00 (0.00-0.04) 10*3/uL Neutrophils # 2.14 (1.80-7.70) 10*3/uL Lymphocytes # 0.83 L (0.90-5.00) 10*3/uL Monocytes # 0.39 (0.20-1.00) 10*3/uL Eosinophils # 0.10 (0.04-0.35) 10*3/uL Basophils # 0.03 (0.00-0.10) 10*3/uL Manual Slide Review Performed Sodium 140 (137-145) mmol/L Potassium 4.2 (3.5-5.1) mmol/L Chloride 106 (98-107) mmol/L Carbon Dioxide 23 (22-30) mmol/L Anion Gap 11 mmol/L BUN 20 H (7-17) mg/dL Creatinine 0.77 (0.52-1.04) mg/dL Est GFR (CKD-EPI)AfAm >90 (>60 ml/min/1.73 sqM) Est GFR (CKD-EPI)NonAf >90 (>60 ml/min/1.73 sqM) Glucose 274 H (74-99) mg/dL Calcium 9.3 (8.4-10.2) mg/dL Urine Color Yellow Urine Appearance Cloudy H (Clear) Urine pH 5.5 (5.0-8.0) Ur Specific [place] 1.045 H (1.001-1.035) Urine Protein Trace H (Negative) Urine Glucose (UA) 4+ H (Negative) Urine Ketones Negative (Negative) Urine Blood Negative (Negative) Urine Nitrite Negative (Negative) Urine Bilirubin Negative (Negative) Urine Urobilinogen 2.0 (<2.0) mg/dL Ur Leukocyte Esterase Small H (Negative) Urine WBC 28 H (0-5) /hpf Ur Squamous Epith Cells 25 H (0-4) /hpf Urine Bacteria Rare H (None) /hpf Urine Mucus Few H (None) /hpf Disposition Clinical Impression: Dysuria Disposition: HOME SELF-CARE Condition: Good Instructions (If sedation given, give patient instructions): Dysuria (ED) Is patient prescribed a controlled substance at d/c from ED?: No Referrals: Sara Velarde MD [Primary Care Provider] - 1-2 days Time of Disposition: 17:48
[2025-06-03] MEDS: SODIUM CHLORIDE 0.9% 1,000 ML IV STA (16:27)
[2025-06-03 16:39] LABS: Basophils # (A) 0.03 10*3/uL (0.00-0.10); Basophils % (A) 0.9 %; Eosinophils # (A) 0.10 10*3/uL (0.04-0.35); Eosinophils % (A) 2.9 %; HCT 37.2 % (37.2-46.3); HGB 12.3 g/dL (12.0-15.0); Lymphocytes # (A) 0.83 10*3/uL (0.90-5.00); Lymphocytes % (A) 23.8 %; MCH 28.5 pg (27.0-32.0); MCHC 33.1 g/dL (32.0-37.0); MCV 86.1 fL (80.0-97.0); Monocytes # (A) 0.39 10*3/uL (0.20-1.00); Monocytes % (A) 11.2 %; Neutrophils # (A) 2.14 10*3/uL (1.80-7.70); Neutrophils % (A) 61.2 %; RBC 4.32 10*6/uL (4.10-5.20); RDW 14.5 % (11.5-14.5); WBC 3.49 10*3/uL (4.50-10.00)
[2025-06-03 16:50] LABS: African American GFR (CKD) >90 (>60 ml/min/1.73 sqM); Anion Gap 11 mmol/L; Blood Urea Nitrogen 20 mg/dL (7-17); Calcium 9.3 mg/dL (8.4-10.2); Carbon Dioxide 23 mmol/L (22-30); Chloride 106 mmol/L (98-107); Glucose 274 mg/dL (74-99); Non-African American GFR(CKD) >90 (>60 ml/min/1.73 sqM); Potassium 4.2 mmol/L (3.5-5.1); Sodium 140 mmol/L (137-145)
[2025-06-03 16:51] LABS: Bacteria,Urine Rare /hpf; Bilirubin,Urine Negative (Negative); Blood,Urine Negative (Negative); Color,Urine Yellow; Glucose,Urine (UA) 4+ (Negative); Ketones,Urine Negative (Negative); Leukocyte Esterase,Urine Small (Negative); Mucus,Urine Few /hpf; Nitrite,Urine Negative (Negative); PH, Urine 5.5 (5.0-8.0); Protein,Urine Trace (Negative); Specific Gravity,Urine 1.045 (1.001-1.035); Squamous Epithelial Cell,Urine 25 /hpf (0-4); Urobilinogen,Urine 2.0 mg/dL (<2.0); WBC,Urine 28 /hpf (0-5)
[2025-06-03 17:20] LABS: Platelet Count 73 10*3/uL (140-440)
[2025-06-03] MEDS: HYDROmorphone 1 MG/ML 1 ML SYRINGE IVP STA (17:34)
[2025-06-03 18:21] VITALS: BP 154/79; PULSE 75; RESP 16; TEMP 98.8
== END 2025-06-03 18:22 | disposition home or self-care (01) ==
LOC: EC 15:38
DX: R30.0 Dysuria (principal); Z87.891 Personal history of nicotine dependence; Z91.018 Allergy to other foods
CPT/HCPCS: 36415; 80048; 85025; 81001; 87086; 99283; 96374; 96361 ×2; J1171

== ENCOUNTER 2025-06-07 16:56 | Emergency (ER) | payer BC, OTHER ==
--- NOTE | 2025-06-07 20:05 | ED ---
Female Urogenital HPI - General Chief complaint: Urogenital Stated complaint: left side abdominal pain, vomiting Time Seen by Provider: 06/07/25 19:00 Source: patient, EMS, RN notes reviewed Mode of arrival: ambulatory Limitations: no limitations - History of Present Illness Initial comments: 50-year-old female presents emergency department chief complaint of flank pain. Patient states that it is on her left side. Patient does have a history of kidney stones states that she has been having burning, dysuria symptoms also. Patient states symptoms started on Friday reports possible fever. Denies any chest pain shortness of breath states nothing really makes pain feel better or worse. Denies any chance . - Related Data Home Medications Medication Instructions Recorded Confirmed Atorvastatin Calcium [Lipitor] 40 mg PO DAILY 09/15/24 04/21/25 Gabapentin [Neurontin] 300 mg PO BID 09/23/24 04/21/25 Metoprolol Tartrate [Lopressor] 25 mg PO BID 11/01/24 04/21/25 Omeprazole 20 mg PO DAILY 12/07/24 04/21/25 Empagliflozin [Jardiance] 10 mg PO DAILY 12/15/24 04/21/25 Ferrous Sulfate [Iron (65 MG 325 mg PO DAILY 12/15/24 04/21/25 Elemental)] Nitroglycerin Sl Tabs [Nitrostat] 0.4 mg SL Q5M PRN 12/15/24 04/21/25 traMADol HCL 50 mg PO Q4-6H PRN 02/02/25 04/21/25 Ergocalciferol [Vitamin D2 (1250 1,250 mcg PO MO 03/10/25 04/21/25 Mcg = 54372 Iu)] Previous Rx's Medication Instructions Recorded Aspirin 81 mg PO DAILY tab 10/01/24 Acetaminophen Tab [Tylenol] 650 mg PO Q6HR PRN #90 tab 12/15/24 Cephalexin [Keflex] 500 mg PO Q6HR 1 Days #20 cap 03/28/25 Cephalexin [Keflex] 500 mg PO Q6HR 7 Days #28 cap 04/12/25 Sulfamethox-Tmp 800-160Mg [Bactrim 1 tab PO Q12HR 7 Days #14 tab 04/12/25 DS 800-160 mg] Cyclobenzaprine [Flexeril] 10 mg PO TID PRN #20 tab 05/19/25 Diclofenac Sodium [Voltaren] 75 mg PO BID PRN #20 tab 05/19/25 Ondansetron Odt [Zofran Odt] 4 mg PO Q8HR PRN #20 tab 05/19/25 Nitrofurantoin Monohyd/M-Cryst 100 mg PO Q12HR #14 cap 06/07/25 [Macrobid] Allergies Allergy/AdvReac Type Severity Reaction Status Date / Time capsaicin Allergy Rash/Hives/ Verified 05/19/25 17:10 Swelling Review of Systems ROS Statement: Those systems with pertinent positive or pertinent negative responses have been documented in the HPI. ROS Other: All systems not noted in ROS Statement are negative. Past Medical History Past Medical History: Atrial Fibrillation, Coronary Artery Disease (CAD), Heart Failure, GERD/Reflux, Hyperlipidemia, Hypertension, Liver Disease, Pneumonia, Syncope Additional Past Medical History / Comment(s): Hx pneumonia yrs ago. Hx kidney stones. Diet controlled diabetic (pt denies diabetes 02/02/25). Seasonal allergies. Left internal carotid artery stenosis. Cirrhosis of liver. No menses in 4 1/2 yrs, states body does not make enough Estrogen. Recurrent pleural effusions. Pericardial effusion, bilateral breast abscesses for the past 5 years. Milk ducts & nipples removed 03/2025 History of Any Multi-Drug Resistant Organisms: None Reported Past Surgical History: Appendectomy, Breast Surgery, Cholecystectomy, Coronary Bypass/CABG, Heart Catheterization With Stent, Orthopedic Surgery, Tubal Ligation Additional Past Surgical History / Comment(s): Right wrist carpal tunnel surgery, dental surgery- teeth removed, left breast abcess I&D X3, right breast abcess I&D X2, left ankle surgery, triple CABG 08/09/2024, multiple thoracentesis. Cardiac sents x2 and bilateral carotid stents 08/09/24. Left VATS with talc pleurodesis and placement of left-sided pleurx catheter 09/29/[address] Ortiz; subxiphoid pericardial window 10/04/2024. March 22 nipples removed. Past Anesthesia/Blood Transfusion Reactions: No Reported Reaction, Family History of Problems w/ Anesthesia Additional Past Anesthesia/Blood Transfusion Reaction / Comment(s): No blood transfusion to date. Mom stopped breathing during a surgery and was resuscitated. Date of Last Stent Placement:: 07/30/24 Past Psychological History: Anxiety, Bipolar, Depression Smoking Status: Former smoker Past Alcohol Use History: None Reported Past Drug Use History: None Reported - Past Family History Mother Family Medical History: Cancer Additional Family Medical History / Comment(s): schizoaffective disorder, uteral and cervical cancer Father History Unknown: Yes Family Medical History: Unable to Obtain Additional Family Medical History / Comment(s): Patient did not know her father General Exam Limitations: no limitations General appearance: alert, in no apparent distress Head exam: Present: atraumatic, normocephalic, normal inspection Eye exam: Present: normal appearance, PERRL, EOMI. Absent: scleral icterus, conjunctival injection, periorbital swelling Neck exam: Present: normal inspection, full ROM. Absent: tenderness, meningismus, lymphadenopathy Respiratory exam: Present: normal lung sounds bilaterally. Absent: respiratory distress, wheezes, rales, rhonchi, stridor Cardiovascular Exam: Present: regular rate, normal rhythm, normal heart sounds. Absent: systolic murmur, diastolic murmur, rubs, gallop, clicks GI/Abdominal exam: Present: soft, tenderness, normal bowel sounds. Absent: distended, guarding, rebound, rigid Back exam: Present: CVA tenderness (L). Absent: CVA tenderness (R) Course Vital Signs 06/07/25 06/07/25 17:20 19:06 Temperature 98.6 F Pulse Rate 99 96 Respiratory 18 20 Rate Blood Pressure 176/103 183/85 O2 Sat by Pulse 99 99 Oximetry Medical Decision Making - Medical Decision Making Was pt. sent in by a medical professional or institution (, PA, SAS SQL DEVELOPER, urgent care, hospital, or fpc...) When possible be specific @ -No Did you speak to anyone other than the patient for history (EMS, parent, family, police, friend...)? What history was obtained from this source @ -No Did you review nursing and triage notes (agree or disagree)? Why? @ -I reviewed and agree with nursing and triage notes Were old charts reviewed (outside hosp., previous admission, EMS record, old EKG, old radiological studies, urgent care reports/EKG's, fpc records)? Report findings @ -No old charts were reviewed Differential Diagnosis (chest pain, altered mental status, abdominal pain women, abdominal pain men, vaginal bleeding, weakness, fever, dyspnea, syncope, headache, dizziness, GI bleed, back pain, seizure, CVA, palpatations, mental he alth, musculoskeletal)? @ -Differential Abdominal Pain Women: Appendicitis, Cholecystitis, diverticulosis, ischemic bowel, pancreatitis, hepatitis, UTI, gastroenteritis, AAA, incarcerated hernia, bowel obstruction, constipation, inflammatory bowel, hepatitis, peptic ulcer disease, splenic infarction, perforated viscus, vulvitis, ovarian torsion, PID, kidney stone, placenta abruption, this is not meant to be an all-inclusive list EKG interpreted by me (3pts min.). @ -None X-rays interpreted by me (1pt min.). @ -None done CT interpreted by me (1pt min.). @ -CT pelvis showing multiple bilateral nonobstructing stones U/S interpreted by me (1pt. min.). @ -None done What testing was considered but not performed or refused? (CT, X-rays, U/S, labs)? Why? @ -None What meds were considered but not given or refused? Why? @ -None Did you discuss the management of the patient with other professionals (professionals i.e. , PA, SAS SQL DEVELOPER, lab, RT, psych nurse, social services counselor, lower in supervisor, teacher, alumni relations officer, therapeutic case manager)? Give summary @ -No Was smoking cessation discussed for >3mins.? @ -No Was critical care preformed (if so, how long)? @ -No Were there social determinants of health that impacted care today? How? (Homelessness, low income, unemployed, alcoholism, drug addiction, transportation, low edu. Level, literacy, decrease access to med. care, senior living, rehab)? @ -No Was there de-escalation of care discussed even if they declined (Discuss DNR or withdrawal of care, Hospice)? DNR status @ -No What co-morbidities impacted this encounter? (DM, HTN, Smoking, COPD, CAD, Cancer, CVA, ARF, Chemo, Hep., AIDS, mental health diagnosis, sleep apnea, morbid obesity)? @ -None Was patient admitted / discharged? Hospital course, mention meds given and route, prescriptions, significant lab abnormalities, going to OR and other pertinent info. @ -Discharge patient presented for urinary dysuria, mild flank pain. Patient does not have evidence of stone patient has UTI. Patient is afebrile, no hypot ension no lactic acidosis. Patient was given Rocephin discharged in stable condition on oral antibiotics. Undiagnosed new problem with uncertain prognosis? @ -No Drug Therapy requiring intensive monitoring for toxicity (Heparin, Nitro, Insulin, Cardizem)? @ -No Were any procedures done? @ -No Diagnosis/symptom? @ -UTI Acute, or Chronic, or Acute on Chronic? @ -Acute Uncomplicated (without systemic symptoms) or Complicated (systemic symptoms)? @ -Complicated Side effects of treatment? @ -No Exacerbation, Progression, or Severe Exacerbation? @ -No Poses a threat to life or bodily function? How? (Chest pain, [place], [place], pneumonia, PE, COPD, DKA, ARF, appy, cholecystitis, CVA, Diverticulitis, Homicidal, Suicidal, threat to staff... and all critical care pts) @ -No - Lab Data Result diagrams: 06/07/25 21:18 Lab Results 06/07/25 06/07/25 06/07/25 Range/Units 20:04 21:18 21:18 Sodium 141 (137-145) mmol/L Potassium 4.3 (3.5-5.1) mmol/L Chloride 109 H (98-107) mmol/L Carbon Dioxide 25 (22-30) mmol/L Anion Gap 7 mmol/L BUN 16 (7-17) mg/dL Creatinine 0.68 (0.52-1.04) mg/dL Est GFR (CKD-EPI)AfAm >90 (>60 ml/min/1.73 sqM) Est GFR (CKD-EPI)NonAf >90 (>60 ml/min/1.73 sqM) Glucose 147 H (74-99) mg/dL Plasma Lactic Acid [place] 1.1 (0.7-2.0) mmol/L Calcium 9.2 (8.4-10.2) mg/dL Total Bilirubin 1.1 (0.2-1.3) mg/dL AST 71 H (14-36) U/L ALT 68 H (4-34) U/L Alkaline Phosphatase 243 H (38-126) U/L Total Protein 6.7 (6.3-8.2) g/dL Albumin 3.7 (3.5-5.0) g/dL Lipase 183 (23-300) U/L Urine Color Light Yellow Urine Appearance Cloudy H (Clear) Urine pH 6.0 (5.0-8.0) Ur Specific [place] 1.023 (1.001-1.035) Urine Protein Negative (Negative) Urine Glucose (UA) 4+ H (Negative) Urine Ketones Negative (Negative) Urine Blood Negative (Negative) Urine Nitrite Negative (Negative) Urine Bilirubin Negative (Negative) Urine Urobilinogen <2.0 (<2.0) mg/dL Ur Leukocyte Esterase Moderate H (Negative) Urine RBC 6 H (0-5) /hpf Urine WBC 73 H (0-5) /hpf Urine WBC Clumps Rare H (None) /hpf Ur Squamous Epith Cells 6 H (0-4) /hpf Calcium Oxalate Crystal Rare H (None) /hpf Urine Bacteria Moderate H (None) /hpf Urine Mucus Rare H (None) /hpf Urine Yeast (Budding) Occasional H (None) /hpf Disposition Clinical Impression: UTI (urinary tract infection) Disposition: HOME SELF-CARE Condition: Stable Instructions (If sedation given, give patient instructions): Urinary Tract Infection in Women (ED) Additional Instructions: Please return to the Emergency Department if symptoms worsen or any other concerns. Prescriptions: Nitrofurantoin Monohyd/M-Cryst [Macrobid] 100 mg PO Q12HR #14 cap Is patient prescribed a controlled substance at d/c from ED?: No Referrals: Carolyn Restrepo III, MD [Primary Care Provider] - 1-2 days Time of Disposition: 22:56
[2025-06-07 20:47] LABS: Bacteria,Urine Moderate /hpf; Bilirubin,Urine Negative (Negative); Blood,Urine Negative (Negative); Budding Yeast,Urine Occasional /hpf; Calcium Oxalate Crystals,Urine Rare /hpf; Color,Urine Light Yellow; Glucose,Urine (UA) 4+ (Negative); Ketones,Urine Negative (Negative); Leukocyte Esterase,Urine Moderate (Negative); Mucus,Urine Rare /hpf; Nitrite,Urine Negative (Negative); PH, Urine 6.0 (5.0-8.0); Protein,Urine Negative (Negative); RBC,Urine 6 /hpf (0-5); Specific Gravity,Urine 1.023 (1.001-1.035); Squamous Epithelial Cell,Urine 6 /hpf (0-4); Urobilinogen,Urine <2.0 mg/dL (<2.0); WBC,Urine 73 /hpf (0-5)
[2025-06-07] MEDS: ONDANSETRON 4 MG/2 ML VIAL IVP STA (21:18)
[2025-06-07] MEDS: HYDROmorphone 0.5 MG/0.5 ML SYRINGE IVP STA (21:19)
[2025-06-07] MEDS: SODIUM CHLORIDE 0.9% 1,000 ML IV ONE (21:21)
[2025-06-07 21:56] LABS: ALT 68 U/L (4-34); AST 71 U/L (14-36); African American GFR (CKD) >90 (>60 ml/min/1.73 sqM); Albumin 3.7 g/dL (3.5-5.0); Alkaline Phosphatase 243 U/L (38-126); Anion Gap 7 mmol/L; Blood Urea Nitrogen 16 mg/dL (7-17); Calcium 9.2 mg/dL (8.4-10.2); Carbon Dioxide 25 mmol/L (22-30); Chloride 109 mmol/L (98-107); Glucose 147 mg/dL (74-99); Lipase 183 U/L (23-300); Non-African American GFR(CKD) >90 (>60 ml/min/1.73 sqM); Potassium 4.3 mmol/L (3.5-5.1); Sodium 141 mmol/L (137-145); Total Protein 6.7 g/dL (6.3-8.2)
--- NOTE | 2025-06-07 22:37 | CT ---
EXAMINATION TYPE: CT abdomen pelvis wo con DATE OF EXAM: 06/07/2025 9:40 PM COMPARISON: 1 CLINICAL INDICATION: Female, 50 years old with history of flank pain, Pt to ED for possible kidney/bl adder infection. Pt reports feeling feverish. TECHNIQUE: Axial images were obtained from above the diaphragm to the pubic rami in the axial plane a t 5 mm thick sections. Reconstructed images are reviewed on the computer in the coronal plane. CONTRAST: mL of . Study performed without Oral Contrast DLP: 1594.8 mGycm, Automated exposure control for dose reduction was used. FINDINGS: Limited CT sections are obtained the lung bases. The lung bases are clear. CT ABDOMEN: Liver: Normal Spleen: Normal Pancreas: Normal Adrenal glands: The adrenal glands are normal. Gallbladder: Surgically absent Kidneys: No masses are evident. No hydronephrosis is present. No cysts are present. There is a 0.4 cm nonobstructing renal stone superior pole right kidney. There is a nonobstructing mid left renal calcification measuring 0.8 cm. Additional smaller renal calculi are present bilaterally without obst ruction. Aorta: Vascular calcification is within the aorta. Inferior vena cava: Normal. CT PELVIS: Loops of bowel within the abdomen and pelvis are normal. There are loops of bowel which are incom pletely distended or lack oral contrast limiting their evaluation. Appendix: Not identified. No dilated tubular structure or inflammatory changes are evident. Urinary bladder: Normal. Genitourinary structures: Uterus is bulky and lobular likely with underlying fibroids. These could be further evaluated with ultrasound Osseous structures: No suspicious lytic or sclerotic lesions. IMPRESSION: 1. Multiple bilateral nonobstructing renal stones. The largest calcifications on the left measuring 0.8 cm. 2. Large bulky uterus likely with underlying fibroids. This can be further evaluated with ultrasound. [facility], , 06/07/2025 10:35 PM
[2025-06-07 23:01] LABS: Basophils # (A) 0.02 10*3/uL (0.00-0.10); Basophils % (A) 0.5 %; Eosinophils # (A) 0.14 10*3/uL (0.04-0.35); Eosinophils % (A) 3.6 %; HCT 39.4 % (37.2-46.3); HGB 13.0 g/dL (12.0-15.0); Lymphocytes # (A) 0.81 10*3/uL (0.90-5.00); Lymphocytes % (A) 20.7 %; MCH 28.7 pg (27.0-32.0); MCHC 33.0 g/dL (32.0-37.0); MCV 87.0 fL (80.0-97.0); Monocytes # (A) 0.46 10*3/uL (0.20-1.00); Monocytes % (A) 11.7 %; Neutrophils # (A) 2.48 10*3/uL (1.80-7.70); Neutrophils % (A) 63.2 %; RBC 4.53 10*6/uL (4.10-5.20); RDW 14.2 % (11.5-14.5); WBC 3.92 10*3/uL (4.50-10.00)
[2025-06-07] MEDS: cefTRIAXone IN SWFI 1,000 MG/10 ML SYRINGE IVP STA (23:01)
[2025-06-07 23:12] VITALS: BP 145/80; PULSE 77; RESP 18; TEMP 97.8
[2025-06-08 00:05] LABS: Platelet Count 80 10*3/uL (140-440)
== END 2025-06-07 23:12 | disposition home or self-care (01) ==
LOC: EC 16:56
DX: N39.0 Urinary tract infection, site not specified (principal); Z87.891 Personal history of nicotine dependence; Z88.8 Allergy status to other drugs, medicaments and biological substances
CPT/HCPCS: 36415; 80053; 83605; 83690; 85025; 81001; 87086; 87077; 87186; 74176; 99284; 96374; 96375; 96361; J2405; J0696; J1171

== ENCOUNTER 2025-06-09 12:01 | Observation (INO) | payer BC, OTHER ==
--- NOTE | 2025-06-09 12:23 | ED ---
General Adult HPI - General Chief complaint: Chest Pain Stated complaint: Chest pain Time Seen by Provider: 06/09/25 12:02 Source: patient, RN notes reviewed, old records reviewed Mode of arrival: ambulatory Limitations: no limitations - History of Present Illness Initial comments: 50-year-old female presenting for evaluation of left-sided chest pain. Pain has been present for the past 24 hours. Pain does radiate to the jaw. Patient states worse with exertion. She has a history of coronary artery disease status post bypass surgery in August 2024. Patient has been compliant with prescribed medication. She is on aspirin, no anticoagulant. - Related Data Home Medications Medication Instructions Recorded Confirmed Atorvastatin Calcium [Lipitor] 40 mg PO DAILY 09/15/24 04/21/25 Gabapentin [Neurontin] 300 mg PO BID 09/23/24 04/21/25 Metoprolol Tartrate [Lopressor] 25 mg PO BID 11/01/24 04/21/25 Omeprazole 20 mg PO DAILY 12/07/24 04/21/25 Empagliflozin [Jardiance] 10 mg PO DAILY 12/15/24 04/21/25 Ferrous Sulfate [Iron (65 MG 325 mg PO DAILY 12/15/24 04/21/25 Elemental)] Nitroglycerin Sl Tabs [Nitrostat] 0.4 mg SL Q5M PRN 12/15/24 04/21/25 traMADol HCL 50 mg PO Q4-6H PRN 02/02/25 04/21/25 Ergocalciferol [Vitamin D2 (1250 1,250 mcg PO MO 03/10/25 04/21/25 Mcg = 50255 Iu)] Previous Rx's Medication Instructions Recorded Aspirin 81 mg PO DAILY tab 10/01/24 Acetaminophen Tab [Tylenol] 650 mg PO Q6HR PRN #90 tab 12/15/24 Cephalexin [Keflex] 500 mg PO Q6HR 1 Days #20 cap 03/28/25 Cephalexin [Keflex] 500 mg PO Q6HR 7 Days #28 cap 04/12/25 Sulfamethox-Tmp 800-160Mg [Bactrim 1 tab PO Q12HR 7 Days #14 tab 04/12/25 DS 800-160 mg] Cyclobenzaprine [Flexeril] 10 mg PO TID PRN #20 tab 05/19/25 Diclofenac Sodium [Voltaren] 75 mg PO BID PRN #20 tab 05/19/25 Ondansetron Odt [Zofran Odt] 4 mg PO Q8HR PRN #20 tab 05/19/25 Nitrofurantoin Monohyd/M-Cryst 100 mg PO Q12HR #14 cap 06/07/25 [Macrobid] Allergies Allergy/AdvReac Type Severity Reaction Status Date / Time capsaicin Allergy Rash/Hives/ Verified 06/09/25 12:05 Swelling Review of Systems ROS Statement: Those systems with pertinent positive or pertinent negative responses have been documented in the HPI. ROS Other: All systems not noted in ROS Statement are negative. Past Medical History Past Medical History: Atrial Fibrillation, Coronary Artery Disease (CAD), Heart Failure, GERD/Reflux, Hyperlipidemia, Hypertension, Liver Disease, Pneumonia, Syncope Additional Past Medical History / Comment(s): Hx pneumonia yrs ago. Hx kidney stones. Diet controlled diabetic (pt denies diabetes 02/02/25). Seasonal allergies. Left internal carotid artery stenosis. Cirrhosis of liver. No menses in 4 1/2 yrs, states body does not make enough Estrogen. Recurrent pleural effusions. Pericardial effusion, bilateral breast abscesses for the past 5 years. Milk ducts & nipples removed 03/2025 History of Any Multi-Drug Resistant Organisms: None Reported Past Surgical History: Appendectomy, Breast Surgery, Cholecystectomy, Coronary Bypass/CABG, Heart Catheterization With Stent, Orthopedic Surgery, Tubal Ligation Additional Past Surgical History / Comment(s): Right wrist carpal tunnel surgery, dental surgery- teeth removed, left breast abcess I&D X3, right breast abcess I&D X2, left ankle surgery, triple CABG 08/09/2024, multiple thoracentesis. Cardiac sents x2 and bilateral carotid stents 08/09/24. Left VATS with talc pl eurodesis and placement of left-sided pleurx catheter 09/29/[address] Ortiz; subxiphoid pericardial window 10/04/2024. March 22 nipples removed. Past Anesthesia/Blood Transfusion Reactions: No Reported Reaction, Family History of Problems w/ Anesthesia Additional Past Anesthesia/Blood Transfusion Reaction / Comment(s): No blood transfusion to date. Mom stopped breathing during a surgery and was resuscitated. Date of Last Stent Placement:: 07/30/24 Past Psychological History: Anxiety, Bipolar, Depression Smoking Status: Former smoker Past Alcohol Use History: None Reported Past Drug Use History: None Reported - Past Family History Mother Family Medical History: Cancer Additional Family Medical History / Comment(s): schizoaffective disorder, uteral and cervical cancer Father History Unknown: Yes Family Medical History: Unable to Obtain Additional Family Medical History / Comment(s): Patient did not know her father General Exam Limitations: no limitations General appearance: alert, in no apparent distress Head exam: Present: atraumatic, normocephalic Eye exam: Present: normal appearance, PERRL ENT exam: Present: normal exam Neck exam: Present: normal inspection. Absent: tenderness, meningismus Respiratory exam: Present: normal lung sounds bilaterally. Absent: respiratory distress, wheezes Cardiovascular Exam: Present: regular rate, normal rhythm GI/Abdominal exam: Present: soft. Absent: distended, tenderness, guarding Extremities exam: Present: pedal edema (Trace) Neurological exam: Present: alert, oriented X3, CN II-XII intact. Absent: motor sensory deficit Psychiatric exam: Present: normal affect, normal mood Skin exam: Present: warm, dry, intact. Absent: cyanosis, diaphoretic Course Vital Signs 06/09/25 06/09/25 12:02 13:31 Temperature 97.9 F Pulse Rate 88 68 Respiratory 18 Rate Blood Pressure 192/95 148/77 O2 Sat by Pulse 98 98 Oximetry Medical Decision Making - Medical Decision Making Was pt. sent in by a medical professional or institution (Dr. PA, HUMAN FACTORS ERGONOMIST, urgent care, hospital, or group home...) When possible be specific @ -No Did you speak to anyone other than the patient for history (EMS, parent, family, police, friend...)? What history was obtained from this source @ -No Did you review nursing and triage notes (agree or disagree)? Why? @ -I reviewed and agree with nursing and triage notes Were old charts reviewed (outside hosp., previous admission, EMS record, old EKG, old radiological studies, urgent care reports/EKG's, group home records)? Report findings @ -No old charts were reviewed Differential Chest Pain: Stable Angina, Unstable Angina, STEMI, NSTEMI Aortic Dissection, Pneumothorax, Musculoskeletal, Esophageal Spasm GERD, Cholecystitis, Pancreatitis, Zoster, this is not meant to be an all-inclusive list. EKG interpreted by me (3pts min.). @ -Sinus rhythm rate of 76, NE interval 146, QRS duration 88, QTc 421 T wave inversion in the inferior leads no ST segment elevation. X-rays interpreted by me (1pt min.). @ -[Chest x-ray negative for acute cardiopulmonary findings CT interpreted by me (1pt min.). @ -None done U/S interpreted by me (1pt. min.). @ -None done What testing was considered but not performed or refused? (CT, X-rays, U/S, labs)? Why? @ -None What meds were considered but not given or refused? Why? @ -None Did you discuss the management of the patient with other professionals (professionals i.e. , PA, HUMAN FACTORS ERGONOMIST, lab, RT, psych nurse, kettle worker, technical intern, teacher, multisensor intelligence officer, hospice case manager)? Give summary @Yes, Dr. Melchor Was smoking cessation discussed for >3mins.? @ -No Was critical care preformed (if so, how long)? @ -No Were there social determinants of health that impacted care today? How? (Homelessness, low income, unemployed, alcoholism, drug addiction, transportation, low edu. Level, literacy, decrease access to med. care, detention, rehab)? @ -No Was there de-escalation of care discussed even if they declined (Discuss DNR or withdrawal of care, Hospice)? DNR status @ -No What co-morbidities impacted this encounter? (DM, HTN, Smoking, COPD, CAD, Cancer, CVA, ARF, Chemo, Hep., AIDS, mental health diagnosis, sleep apnea, morbid obesity)? @ -[Coronary artery disease status post bypass Was patient admitted / discharged? Hospital course, mention meds given and route, prescriptions, significant lab abnormalities, going to OR and other pertinent info. @40-year-old female history of CAD status post bypass presenting with chest pain rating to the jaw. EKG shows some ST segment depression without ST segment elevation. Patient is hypertensive upon arrival, given nitroglycerin with improvement in blood pressure and pain. Patient will be observed for serial cardiac enzymes, telemetry, cardiology consultation. Undiagnosed new problem with uncertain prognosis? @ -No Drug Therapy requiring intensive monitoring for toxicity (Heparin, Nitro, Insulin, Cardizem)? @ -No Were any procedures done? @ -No Diagnosis/symptom? @ -Chest pain rule out Acute, or Chronic, or Acute on Chronic? @ -[Acute Uncomplicated (without systemic symptoms) or Complicated (systemic symptoms)? @ -Default Side effects of treatment? @ -No Exacerbation, Progression, or Severe Exacerbation? @ -No Poses a threat to life or bodily function? How? (Chest pain, [place], [place], pneumonia, PE, COPD, DKA, ARF, appy, cholecystitis, CVA, Diverticulitis, Homicidal, Suicidal, threat to staff... and all critical care pts) @ -[Yes, ACS - Lab Data Result diagrams: 06/09/25 12:30 06/09/25 12:33 Lab Results 06/09/25 06/09/25 06/09/25 Range/Units 12:30 12: 12:33 WBC 3.15 L (4.50-10.00) 10*3/uL RBC 4.70 (4.10-5.20) 10*6/uL Hgb 13.2 (12.0-15.0) g/dL Hct 40.4 (37.2-46.3) % MCV 86.0 (80.0-97.0) fL MCH 28.1 (27.0-32.0) pg MCHC 32.7 (32.0-37.0) g/dL Plt Count 74 L (140-440) 10*3/uL MPV 11.6 (9.5-12.2) fL Immature Gran % (Auto) 0 % Neutrophils % 61.3 % Lymphocytes % 22.5 % Monocytes % 12.1 % Eosinophils % 3.5 % Basophils % 0.6 % Immature Gran # 0.00 (0.00-0.04) 10*3/uL Neutrophils # 1.93 (1.80-7.70) 10*3/uL Lymphocytes # 0.71 L (0.90-5.00) 10*3/uL Monocytes # 0.38 (0.20-1.00) 10*3/uL Eosinophils # 0.11 (0.04-0.35) 10*3/uL Basophils # 0.02 (0.00-0.10) 10*3/uL Manual Slide Review Performed PT 12.0 (10.0-12.5) sec INR 1.1 (<1.2) APTT 25.9 (22.0-30.0) sec Sodium 138 (137-145) mmol/L Potassium 4.4 (3.5-5.1) mmol/L Chloride 105 (98-107) mmol/L Carbon Dioxide 23 (22-30) mmol/L Anion Gap 10 mmol/L BUN 14 (7-17) mg/dL Creatinine 0.70 (0.52-1.04) mg/dL Est GFR (CKD-EPI)AfAm >90 (>60 ml/min/1.73 sqM) Est GFR (CKD-EPI)NonAf >90 (>60 ml/min/1.73 sqM) Glucose 329 H (74-99) mg/dL Calcium 9.1 (8.4-10.2) mg/dL Magnesium 1.5 L (1.6-2.3) mg/dL Total Bilirubin 1.2 (0.2-1.3) mg/dL AST 76 H (14-36) U/L ALT 68 H (4-34) U/L Alkaline Phosphatase 178 H (38-126) U/L Troponin I (0.000-0.034) ng/mL Total Protein 6.5 (6.3-8.2) g/dL Albumin 3.5 (3.5-5.0) g/dL 06/09/25 Range/Units 12:33 WBC (4.50-10.00) 10*3/uL RBC (4.10-5.20) 10*6/uL Hgb (12.0-15.0) g/dL Hct (37.2-46.3) % MCV (80.0-97.0) fL MCH (27.0-32.0) pg MCHC (32.0-37.0) g/dL Plt Count (140-440) 10*3/uL MPV (9.5-12.2) fL Immature Gran % (Auto) % Neutrophils % % Lymphocytes % % Monocytes % % Eosinophils % % Basophils % % Immature Gran # (0.00-0.04) 10*3/uL Neutrophils # (1.80-7.70) 10*3/uL Lymphocytes # (0.90-5.00) 10*3/uL Monocytes # (0.20-1.00) 10*3/uL Eosinophils # (0.04-0.35) 10*3/uL Basophils # (0.00-0.10) 10*3/uL Manual Slide Review PT (10.0-12.5) sec INR (<1.2) APTT (22.0-30.0) sec Sodium (137-145) mmol/L Potassium (3.5-5.1) mmol/L Chloride (98-107) mmol/L Carbon Dioxide (22-30) mmol/L Anion Gap mmol/L BUN (7-17) mg/dL Creatinine (0.52-1.04) mg/dL Est GFR (CKD-EPI)AfAm (>60 ml/min/1.73 sqM) Est GFR (CKD-EPI)NonAf (>60 ml/min/1.73 sqM) Glucose (74-99) mg/dL Calcium (8.4-10.2) mg/dL Magnesium (1.6-2.3) mg/dL Total Bilirubin (0.2-1.3) mg/dL AST (14-36) U/L ALT (4-34) U/L Alkaline Phosphatase (38-126) U/L Troponin I <0.012 (0.000-0.034) ng/mL Total Protein (6.3-8.2) g/dL Albumin (3.5-5.0) g/dL Disposition Clinical Impression: Chest pain Disposition: ADMITTED IP TO THIS HOSP Condition: Stable Is patient prescribed a controlled substance at d/c from ED?: No Referrals: Carolyn Restrepo III, MD [Primary Care Provider] - 1-2 days Time of Disposition: 14:00
[2025-06-09 12:37] LABS: Basophils # (A) 0.02 10*3/uL (0.00-0.10); Basophils % (A) 0.6 %; Eosinophils # (A) 0.11 10*3/uL (0.04-0.35); Eosinophils % (A) 3.5 %; HCT 40.4 % (37.2-46.3); HGB 13.2 g/dL (12.0-15.0); Lymphocytes # (A) 0.71 10*3/uL (0.90-5.00); Lymphocytes % (A) 22.5 %; MCH 28.1 pg (27.0-32.0); MCHC 32.7 g/dL (32.0-37.0); MCV 86.0 fL (80.0-97.0); Monocytes # (A) 0.38 10*3/uL (0.20-1.00); Monocytes % (A) 12.1 %; Neutrophils # (A) 1.93 10*3/uL (1.80-7.70); Neutrophils % (A) 61.3 %; RBC 4.70 10*6/uL (4.10-5.20); RDW 14.1 % (11.5-14.5); WBC 3.15 10*3/uL (4.50-10.00)
[2025-06-09] MEDS: NITROGLYCERIN SL TABS 0.4 MG TAB SUBLINGUAL STA (12:47)
[2025-06-09 12:50] LABS: INR 1.1 (<1.2); Partial Thromboplastin Time 25.9 sec (22.0-30.0); Prothrombin Time 12.0 sec (10.0-12.5)
[2025-06-09] MEDS: MORPHINE SULFATE 4 MG/ML SYRINGE IVP STA (13:08)
[2025-06-09 13:28] LABS: Platelet Count 74 10*3/uL (140-440)
[2025-06-09 13:31] LABS: ALT 68 U/L (4-34); AST 76 U/L (14-36); African American GFR (CKD) >90 (>60 ml/min/1.73 sqM); Albumin 3.5 g/dL (3.5-5.0); Alkaline Phosphatase 178 U/L (38-126); Anion Gap 10 mmol/L; Blood Urea Nitrogen 14 mg/dL (7-17); Calcium 9.1 mg/dL (8.4-10.2); Carbon Dioxide 23 mmol/L (22-30); Chloride 105 mmol/L (98-107); Glucose 329 mg/dL (74-99); Magnesium 1.5 mg/dL (1.6-2.3); Non-African American GFR(CKD) >90 (>60 ml/min/1.73 sqM); Potassium 4.4 mmol/L (3.5-5.1); Sodium 138 mmol/L (137-145); Total Protein 6.5 g/dL (6.3-8.2)
--- NOTE | 2025-06-09 13:39 | XR ---
EXAMINATION TYPE: XR chest 2V DATE OF EXAM: 06/09/2025 1:21 PM COMPARISON: Chest radiographs from for 2524 CLINICAL INDICATION: Female, 50 years old with history of Chest Pain; TECHNIQUE: XR chest 2V Frontal and lateral views of the chest. FINDINGS: Lungs/Pleura: There is no evidence of pleural effusion, focal consolidation, or pneumothorax. Pulmonary vascularity: Unremarkable. Heart/mediastinum: Cardiomediastinal silhouette is unremarkable. Left atrial appendage occlusion noah ce is present. Musculoskeletal: No acute osseous pathology. Midline sternotomy wires are noted. IMPRESSION: No acute cardiopulmonary disease/process. [facility], , 06/09/2025 1:37 PM
[2025-06-09] MEDS ORDERED: NALOXONE 0.4 MG/ML 1 ML VIAL IV PRN (13:57)
[2025-06-09] MEDS ORDERED: ACETAMINOPHEN TAB 325 MG TAB PO PRN (13:57)
[2025-06-09] MEDS: MAGNESIUM SULFATE-D5W PMX 1 GM in DEXTROSE/WATER 1 100ML.BAG IVPB SCH (13:58)
[2025-06-09] MEDS: NITROGLYCERIN SL TABS 0.4 MG TAB SUBLINGUAL PRN (14:51)
--- NOTE | 2025-06-09 19:50 | P.HPIM ---
Review of Systems Review of systems CONSTITUTIONAL: No fever, no malaise, no fatigue. HEENT: No recent visual problems or hearing problems. Denied any sore throat. CARDIOVASCULAR: No orthopnea, PND, no palpitations, no syncope. PULMONARY: No shortness of breath, no cough, no hemoptysis. GASTROINTESTINAL: No diarrhea, no nausea, no vomiting, no abdominal pain. Normoactive bowel sounds. NEUROLOGICAL: No headaches, no weakness, no numbness. HEMATOLOGICAL: Denies any bleeding or petechiae. GENITOURINARY: Denies any burning micturition, frequency, or urgency. MUSCULOSKELETAL/RHEUMATOLOGICAL: Denies any joint pain, swelling, or any muscle pain. ENDOCRINE: Denies any polyuria or polydipsia. Past Medical History Past Medical History: Atrial Fibrillation, Coronary Artery Disease (CAD), Heart Failure, GERD/Reflux, Hyperlipidemia, Hypertension, Liver Disease, Pneumonia, Syncope Additional Past Medical History / Comment(s): Hx pneumonia yrs ago. Hx kidney stones. Diet controlled diabetic (pt denies diabetes 02/02/25). Seasonal allergies. Left internal carotid artery stenosis. Cirrhosis of liver. No menses in 4 1/2 yrs, states body does not make enough Estrogen. Recurrent pleural effusions. Pericardial effusion, bilateral breast abscesses for the past 5 years. Milk ducts & nipples removed 03/2025 History of Any Multi-Drug Resistant Organisms: None Reported Past Surgical History: Appendectomy, Breast Surgery, Cholecystectomy, Coronary Bypass/CABG, Heart Catheterization With Stent, Orthopedic Surgery, Tubal Ligation Additional Past Surgical History / Comment(s): Right wrist carpal tunnel surgery, dental surgery- teeth removed, left breast abcess I&D X3, right breast abcess I&D X2, left ankle surgery, triple CABG 08/09/2024, multiple thoracentesis. Cardiac sents x2 and bilateral carotid stents 08/09/24. Left VATS with talc pleurodesis and placement of left-sided pleurx catheter 09/29/[address] Ortiz; subxiphoid pericardial window 10/04/2024. March 22 nipples removed. Past Anesthesia/Blood Transfusion Reactions: No Reported Reaction, Family History of Problems w/ Anesthesia Additional Past Anesthesia/Blood Transfusion Reaction / Comment(s): No blood transfusion to date. Mom stopped breathing during a surgery and was resuscitated. Date of Last Stent Placement:: 07/30/24 Past Psychological History: Anxiety, Bipolar, Depression Smoking Status: Former smoker Past Alcohol Use History: None Reported Past Drug Use History: None Reported - Past Family History Mother Family Medical History: Cancer Additional Family Medical History / Comment(s): schizoaffective disorder, uteral and cervical cancer Father History Unknown: Yes Family Medical History: Unable to Obtain Additional Family Medical History / Comment(s): Patient did not know her father Medications and Allergies Home Medications Medication Instructions Recorded Confirmed Type Atorvastatin Calcium [Lipitor] 40 mg PO DAILY 09/15/24 06/09/25 History Aspirin 81 mg PO DAILY tab 10/01/24 06/09/25 Rx Metoprolol Tartrate [Lopressor] 25 mg PO DAILY 11/01/24 06/09/25 History Omeprazole 20 mg PO DAILY 12/07/24 06/09/25 History Empagliflozin [Jardiance] 10 mg PO DAILY 12/15/24 06/09/25 History Ferrous Sulfate [Iron (65 MG 325 mg PO DAILY 12/15/24 06/09/25 History Elemental)] Nitroglycerin Sl Tabs [Nitrostat] 0.4 mg SL Q5M PRN 12/15/24 06/09/25 History traMADol HCL 50 mg PO Q4-6H PRN 02/02/25 06/09/25 History Acetaminophen Tab [Tylenol] 325 mg PO Q6HR PRN 06/09/25 06/09/25 History Gabapentin [Neurontin] 400 mg PO TID 06/09/25 06/09/25 History Ibuprofen [Motrin] 600 mg PO Q6HR PRN 06/09/25 06/09/25 History Allergies Allergy/AdvReac Type Severity Reaction Status Date / Time capsaicin Allergy Rash/Hives/ Verified 06/09/25 16:35 Swelling Physical Exam Vitals: Vital Signs Temp Pulse Resp BP Pulse Ox 06/09/25 16:46 66 18 148/87 96 06/09/25 13:31 68 148/77 98 06/09/25 12:02 97.9 F 88 18 192/95 98 Intake and Output 06/09/25 06/09/25 06/09/25 06:59 14:59 22:59 Other: Weight 103.419 kg 77.111 kg GENERAL: The patient is alert and oriented x3, not in any acute distress. Well developed, well nourished. HEENT: Pupils are round and equally reacting to light. EOMI. No scleral icterus. No conjunctival pallor. Normocephalic, atraumatic. No pharyngeal erythema. No thyromegaly. CARDIOVASCULAR: S1 and S2 present. No murmurs, rubs, or gallops. PULMONARY: Chest is clear to auscultation, no wheezing , no crackles. ABDOMEN: Soft, nontender, nondistended, normoactive bowel sounds. No palpable organomegaly. MUSCULOSKELETAL: No joint swelling or deformity. EXTREMITIES: No cyanosis, clubbing, or pedal edema. NEUROLOGICAL: Gross neurological examination did not reveal any focal deficits. SKIN: No rashes. no petechiae. Results CBC & Chem 7: 06/09/25 12:30 06/09/25 12:33 Labs: Abnormal Lab Results - Last 24 Hours (Table) 06/09/25 06/09/25 Range/Units 12:30 12:33 WBC 3.15 L (4.50-10.00) 10*3/uL Plt Count 74 L (140-440) 10*3/uL Lymphocytes # 0.71 L (0.90-5.00) 10*3/uL Glucose 329 H (74-99) mg/dL Magnesium 1.5 L (1.6-2.3) mg/dL AST 76 H (14-36) U/L ALT 68 H (4-34) U/L Alkaline Phosphatase 178 H (38-126) U/L Assessment and Plan Assessment: Chest pain, rule out cardiac causes Paroxysmal atrial fibrillation Coronary artery disease Chronic heart failure Hypertension Hyperlipidemia History of liver disease History of syncope History of GERD Plan: Continue with aspirin 81 mg Pain management Serial troponin were negative Cardiac team consult Resume home medication GI prophylaxis: Pepcid DVT prophylax subcu heparin
[2025-06-09] MEDS: HYDROcodone/APAP 5-325MG 1 EACH TAB PO PRN (19:56)
[2025-06-09] MEDS: FAMOTIDINE 20 MG/2 ML VIAL IV SCH (20:56)
[2025-06-09] MEDS: HEPARIN SODIUM,PORCINE 5,000 UNIT/ML 1 ML VIAL SQ SCH (20:56)
[2025-06-09] MEDS: GABAPENTIN 400 MG CAP PO SCH (20:56)
[2025-06-09 21:07] VITALS: RESP 16
[2025-06-10] MEDS ORDERED: DOBUTamine DRIP for NUC MED 500 MG in DEXTROSE/WATER 1 250ML.BAG IV PRN (08:00)
[2025-06-10] MEDS: COLCHICINE 0.6 MG EACH PO SCH ×2 (08:26→21:07)
--- NOTE | 2025-06-10 10:04 | P.CRDCN ---
History of Present Illness Consult date: 06/10/25 Consult reason: chest pain History of present illness: This is a 50-year-old female patient of Dr. Ogden with past medical history of coronary artery disease status post PCI of the ramus, balloon angioplasty of circumflex and CABG with PERSAUD to LAD, diagonal and nondominant marginal branch, chronic diastolic heart failure, hypertension, hyperlipidemia, recurrent pleural effusions status post Pleurx catheter and removal, history of pericardial effusion status post pericardial drain, atypical chest pain, remote history of tobacco use and dependence, history of bilateral breast abscesses status post resection. We have been asked to evaluate the patient for chest pain. Patient gives history of pain that started on the left side of her upper chest going into her neck and jaw and felt like a toothache. Patient is a dentulous. She states she has had the same type of pain a few other times. She states that occurs when she is either walking or laying flat on her back. Patient does have some tenderness to the chest wall. Blood pressure 136/83, heart rate 65, pulse ox 93% on room air, patient has been afebrile. Dr. Lamb discussed findings and recommendations. Patient will be given 1 dose of colchicine now and assess for any change in the chest pain. She is also agreeable to move forward with dobutamine stress test today. -EKG: Sinus rhythm with T wave inversions -Chest x-ray: No acute process. -Laboratory studies: Troponin negative x 3. AST 76, ALT 68, alkaline phosphatase 178. WBC 3.1, hemoglobin 13.2, platelet count 74 and is baseline. -Home cardiac medications: Aspirin 81 mg daily, atorvastatin 40 mg daily, Jardiance 10 mg daily, Lopressor 25 mg daily, Nitrostat as needed. -Limited echocardiogram performed 03/26/2025 revealed EF 55 to 60%, no pericardial effusion. No pleural effusion Review Of Systems: At the time of my exam: CONSTITUTIONAL: Denies fever or chills. HEENT: Denies blurred vision, vision changes, or eye pain. Denies hemoptysis CARDIOVASCULAR: Denies chest pain. Denies orthopnea. Denies PND. Denies palpitations RESPIRATORY: Denies shortness of breath. GASTROINTESTINAL: Denies abdominal pain. Denies nausea or vomiting. HEMATOLOGIC: Denies bleeding disorders. GENITOURINARY: Denies any blood in urine. SKIN: Denies puritis. Denies rash. Physical examination: Gen: This is a 50-year-old female in no acute distress. VS: reviewed HEENT: Head is atraumatic, normocephalic. Pupils equal, round. Sclerae is anicteric. NECK: Supple. No JVD. LUNGS: Clear to auscultation. No wheezes or rhonchi. No intercostal retractions. HEART: Regular rate and rhythm. No murmur. + Pericardial rub ABDOMEN: Soft No tenderness. EXTREMITIES: No pedal edema. No calf tenderness. NEUROLOGICAL: Patient is awake, alert and oriented x3. Assessment: Atypical chest pain, acute coronary syndrome ruled out Chest pain #1 chest wall pain, musculoskeletal Chest pain #2 with radiation to the neck and jaw probable mild pericarditis History of coronary artery disease with previous PCI and CABG History of pericardial effusion status post pericardial drain Chronic diastolic heart failure Hypertension Hyperlipidemia Remote history of tobacco use and dependence Plan: Resume patient's home cardiac medications Start patient on colchicine 1.2 mg x 1, at discharge, patient to be on 0.6 mg daily Obtain dobutamine stress echocardiogram No need to repeat echocardiogram If echocardiogram is unremarkable, patient is cleared for discharge. Thank you kindly for this consultation. Nurse practitioner note has been reviewed, I agree with documented findings and plan of care. Patient was seen and examined. Past Medical History Past Medical History: Atrial Fibrillation, Coronary Artery Disease (CAD), Heart Failure, GERD/Reflux, Hyperlipidemia, Hypertension, Liver Disease, Pneumonia, Syncope Additional Past Medical History / Comment(s): Hx pneumonia yrs ago. Hx kidney stones. Diet controlled diabetic (pt denies diabetes 02/02/25). Seasonal a llergies. Left internal carotid artery stenosis. Cirrhosis of liver. No menses in 4 1/2 yrs, states body does not make enough Estrogen. Recurrent pleural effusions. Pericardial effusion, bilateral breast abscesses for the past 5 years. Milk ducts & nipples removed 03/2025 History of Any Multi-Drug Resistant Organisms: None Reported Past Surgical History: Appendectomy, Breast Surgery, Cholecystectomy, Coronary Bypass/CABG, Heart Catheterization With Stent, Orthopedic Surgery, Tubal Ligation Additional Past Surgical History / Comment(s): Right wrist carpal tunnel surgery, dental surgery- teeth removed, left breast abcess I&D X3, right breast abcess I&D X2, left ankle surgery, triple CABG 08/09/2024, multiple thoracentesis. Cardiac sents x2 and bilateral carotid stents 08/09/24. Left VATS with talc pleurodesis and placement of left-sided pleurx catheter 09/29/[address] Ortiz; subxiphoid pericardial window 10/04/2024. March 22 nipples removed. Past Anesthesia/Blood Transfusion Reactions: No Reported Reaction, Family History of Problems w/ Anesthesia Additional Past Anesthesia/Blood Transfusion Reaction / Comment(s): No blood transfusion to date. Mom stopped breathing during a surgery and was resuscitated. Date of Last Stent Placement:: 07/30/24 Past Psychological History: Anxiety, Bipolar, Depression Smoking Status: Former smoker Past Alcohol Use History: None Reported Past Drug Use History: None Reported - Past Family History Mother Family Medical History: Cancer Additional Family Medical History / Comment(s): schizoaffective disorder, uteral and cervical cancer Father History Unknown: Yes Family Medical History: Unable to Obtain Additional Family Medical History / Comment(s): Patient did not know her father Medications and Allergies Home Medications Medication Instructions Recorded Confirmed Type Atorvastatin Calcium [Lipitor] 40 mg PO DAILY 09/15/24 06/09/25 History Aspirin 81 mg PO DAILY tab 10/01/24 06/09/25 Rx Metoprolol Tartrate [Lopressor] 25 mg PO DAILY 11/01/24 06/09/25 History Omeprazole 20 mg PO DAILY 12/07/24 06/09/25 History Empagliflozin [Jardiance] 10 mg PO DAILY 12/15/24 06/09/25 History Ferrous Sulfate [Iron (65 MG 325 mg PO DAILY 12/15/24 06/09/25 History Elemental)] Nitroglycerin Sl Tabs [Nitrostat] 0.4 mg SL Q5M PRN 12/15/24 06/09/25 History traMADol HCL 50 mg PO Q4-6H PRN 02/02/25 06/09/25 History Acetaminophen Tab [Tylenol] 325 mg PO Q6HR PRN 06/09/25 06/09/25 History Gabapentin [Neurontin] 400 mg PO TID 06/09/25 06/09/25 History Ibuprofen [Motrin] 600 mg PO Q6HR PRN 06/09/25 06/09/25 History Allergies Allergy/AdvReac Type Severity Reaction Status Date / Time capsaicin Allergy Rash/Hives/ Verified 06/09/25 16:35 Swelling Physical Exam Vitals: Vital Signs Temp Pulse Pulse Resp BP BP Pulse Ox 06/10/25 03:35 97.5 F L 65 16 136/83 93 L 06/09/25 23:08 97.7 F 66 18 138/83 99 06/09/25 21:00 75 16 154/97 95 06/09/25 16:46 66 18 148/87 96 06/09/25 13:31 68 148/77 98 06/09/25 12:02 97.9 F 88 18 192/95 98 Intake and Output 06/09/25 06/10/25 06/10/25 22:59 06:59 14:59 Other: Voiding Method Toilet Weight 77.111 kg Results 06/09/25 12:30 06/09/25 12:33 Cardiac Enzymes 06/09/25 06/09/25 06/09/25 Range/Units 12:33 12:33 14:54 AST 76 H (14-36) U/L Troponin I <0.012 <0.012 (0.000-0.034) ng/mL 06/09/25 Range/Units 18:30 AST (14-36) U/L Troponin I <0.012 (0.000-0.034) ng/mL Coagulation 06/09/25 Range/Units 12:33 PT 12.0 (10.0-12.5) sec APTT 25.9 (22.0-30.0) sec CBC 06/09/25 Range/Units 12:30 WBC 3.15 L (4.50-10.00) 10*3/uL RBC 4.70 (4.10-5.20) 10*6/uL Hgb 13.2 (12.0-15.0) g/dL Hct 40.4 (37.2-46.3) % Plt Count 74 L (140-440) 10*3/uL Comprehensive Metabolic Panel 06/09/25 Range/Units 12:33 Sodium 138 (137-145) mmol/L Potassium 4.4 (3.5-5.1) mmol/L Chloride 105 (98-107) mmol/L Carbon Dioxide 23 (22-30) mmol/L BUN 14 (7-17) mg/dL Creatinine 0.70 (0.52-1.04) mg/dL Glucose 329 H (74-99) mg/dL Calcium 9.1 (8.4-10.2) mg/dL AST 76 H (14-36) U/L ALT 68 H (4-34) U/L Alkaline Phosphatase 178 H (38-126) U/L Total Protein 6.5 (6.3-8.2) g/dL Albumin 3.5 (3.5-5.0) g/dL Current Medications Generic Name Dose Route Start Last Admin Trade Name Freq PRN Reason Stop Dose Admin Acetaminophen 650 mg 06/09/25 13:57 Acetaminophen Tab 325 Mg Tab PO Q6HR PRN Mild Pain or Fever > 100.5 Hydrocodone Bitart/Acetaminophen 1 each 06/09/25 19:47 06/10/25 04:27 Hydrocodone/Apap 5-325mg 1 Each Tab PO 1 each Q8HR PRN Administration Pain Aspirin 81 mg 06/10/25 09:00 Aspirin 81 Mg PO DAILY [facility] Atorvastatin Calcium 40 mg 06/10/25 09:00 Atorvastatin 40 Mg Tab PO DAILY [facility] Dapagliflozin 5 mg 06/10/25 09:00 Dapagliflozin Propanediol 5 Mg Tablet PO DAILY [facility] Famotidine 20 mg 06/09/25 21:00 06/09/25 20:56 Famotidine 20 Mg/2 Ml Vial IV 20 mg Q12HR [facility] Administration Ferrous Sulfate 325 mg 06/10/25 09:00 Ferrous Sulfate 325 Mg Tab PO DAILY [facility] Gabapentin 400 mg 06/09/25 22:00 06/09/25 20:56 Gabapentin 400 Mg Cap PO 400 mg TID [facility] Administration Heparin Sodium (Porcine) 5,000 unit 06/09/25 21:00 06/09/25 20:56 Heparin Sodium,Porcine 5,000 Unit/Ml 1 Ml Vial SQ 5,000 unit Q12HR GABO Administration Metoprolol Tartrate 25 mg 06/10/25 09:00 Metoprolol Tartrate 25 Mg Tab PO DAILY [facility] Naloxone HCl 0.2 mg 06/09/25 13:57 Naloxone 0.4 Mg/Ml 1 Ml Vial IV Q2M PRN Opioid Reversal Nitroglycerin 0.4 mg 06/09/25 13:58 06/09/25 14:51 Nitroglycerin Sl Tabs 0.4 Mg Tab SUBLINGUAL 0.4 mg Q5M PRN Administration Chest Pain Intake and Output 06/09/25 06/10/25 06/10/25 22:59 06:59 14:59 Other: Voiding Method Toilet Weight 77.111 kg 06/09/25 12:30 06/09/25 12:33
[2025-06-10] MEDS ORDERED: IOPAMIDOL CONTRAST (ORAL USE) VIAL PO PRN (11:23)
--- NOTE | 2025-06-10 11:42 | P.PN ---
Subjective This is a pleasant 50 years old female who presents initially because of chest pain for 2 days duration, this started today and it is more with walking about 8/10 in severity Patient states that central radiating to both shoulders felt like dull about getting a stabbing feeling with movement. Pain is worse with movement and with lying flat but get better when sitting up Associated to shortness of breath. Also has some exertional dyspnea Patient states also she was recently treated for UTI with Keflex but she is not sure about which antibiotic. She does not have much shortness of breath complaining from back pain and tenderness in the lower back and little bit to the right. Also she has some generalized abdominal pain tenderness in the right upper quadrant and left lower quadrant. But no vomiting or diarrhea no dysuria or urgency no headache dizziness weakness or numbness. She denies smoking alcohol or illicit drugs 06/10 Patient admitted with chest pain and she is going for dobutamine stress test with cardiology team. Based on the results of the test we will decide about further recommendation Patient also complains from chronic abdominal pain and back pain. She was just treated for UTI. Patient had recently done CT of the abdomen and pelvis about 2 days ago on 06/07/2025 showing multiple renal stones however it was done without contrast I talked to the patient we will order CT of the abdomen with contrast with risk benefit explained for her including but not limited to risk of allergy and nephrotoxicity and she verbalized understanding acceptance Also will check D-dimer to rule out pulmonary disease causing chest pain like pulmonary embolism. Will send further urine analysis Active Medications Generic Name Dose Route Start Last Admin Trade Name Freq PRN Reason Stop Dose Admin Acetaminophen 650 mg 06/09/25 13:57 Acetaminophen Tab 325 Mg Tab PO Q6HR PRN Mild Pain or Fever > 100.5 Hydrocodone Bitart/Acetaminophen 1 each 06/09/25 19:47 06/10/25 04:27 Hydrocodone/Apap 5-325mg 1 Each Tab PO 1 each Q8HR PRN Administration Pain Aspirin 81 mg 06/10/25 09:00 Aspirin 81 Mg PO DAILY [facility] Atorvastatin Calcium 40 mg 06/10/25 09:00 Atorvastatin 40 Mg Tab PO DAILY [facility] Colchicine 0.6 mg 06/10/25 21:00 Colchicine 0.6 Mg Each PO BID [facility] Dapagliflozin 5 mg 06/10/25 09:00 Dapagliflozin Propanediol 5 Mg Tablet PO DAILY [facility] Famotidine 20 mg 06/09/25 21:00 06/09/25 20:56 Famotidine 20 Mg/2 Ml Vial IV 20 mg Q12HR GABO Administration Ferrous Sulfate 325 mg 06/10/25 09:00 Ferrous Sulfate 325 Mg Tab PO DAILY [facility] Gabapentin 400 mg 06/09/25 22:00 06/09/25 20:56 Gabapentin 400 Mg Cap PO 400 mg TID GABO Administration Heparin Sodium (Porcine) 5,000 unit 06/09/25 21:00 06/09/25 20:56 Heparin Sodium,Porcine 5,000 Unit/Ml 1 Ml Vial SQ 5,000 unit Q12HR [facility]ABO Administration Sodium Chloride 1,000 mls @ 100 mls/hr 06/10/25 11:30 Saline 0.9% IV 06/10/25 21:29 .Q10H [facility]ABO Iopamidol 30 ml 06/10/25 11:23 Iopamidol Contrast (Oral Use) Vial PO 06/11/25 11:[address] Scan Metoprolol Tartrate 25 mg 06/10/25 09:00 Metoprolol Tartrate 25 Mg Tab PO DAILY [facility] Naloxone HCl 0.2 mg 06/09/25 13:57 Naloxone 0.4 Mg/Ml 1 Ml Vial IV Q2M PRN Opioid Reversal Nitroglycerin 0.4 mg 06/09/25 13:58 06/09/25 14:51 Nitroglycerin Sl Tabs 0.4 Mg Tab SUBLINGUAL 0.4 mg Q5M PRN Administration Chest Pain Objective - Vital Signs Vital signs: Vital Signs Temp 97.8 F 06/10/25 07:22 Pulse 70 06/10/25 07:22 Resp 16 06/10/25 07:22 BP 124/78 06/10/25 07:22 Pulse Ox 96 06/10/25 07:22 FiO2 Intake & Output 06/09/25 06/10/25 06/10/25 18:59 06:59 18:59 Weight 77.111 kg Other: Voiding Method Toilet - Exam GENERAL: The patient is alert and oriented x3, not in any acute distress. Well developed, well nourished. HEENT: Pupils are round and equally reacting to light. EOMI. No scleral icterus. No conjunctival pallor. Normocephalic, atraumatic. No pharyngeal erythema. No thyromegaly. CARDIOVASCULAR: S1 and S2 present. No murmurs, rubs, or gallops. PULMONARY: Chest is clear to auscultation, no wheezing , no crackles. -ABDOMEN: Soft, nont generalized abdominal tenderness including RUQ and LLQ , nondistended, normoactive bowel sounds. No palpable organomegaly. MUSCULOSKELETAL: No joint swelling or deformity. EXTREMITIES: No cyanosis, clubbing, or pedal edema. NEUROLOGICAL: Gross neurological examination did not reveal any focal deficits. SKIN: No rashes. no petechiae. - Labs CBC & Chem 7: 06/09/25 12:30 06/09/25 12:33 Labs: Abnormal Lab Results - Last 24 Hours (Table) 06/09/25 06/09/25 Range/Units 12:30 12:33 WBC 3.15 L (4.50-10.00) 10*3/uL Plt Count 74 L (140-440) 10*3/uL Lymphocytes # 0.71 L (0.90-5.00) 10*3/uL Glucose 329 H (74-99) mg/dL Magnesium 1.5 L (1.6-2.3) mg/dL AST 76 H (14-36) U/L ALT 68 H (4-34) U/L Alkaline Phosphatase 178 H (38-126) U/L Assessment and Plan Assessment: Chest pain, rule out cardiac causes Paroxysmal atrial fibrillation Abdominal pain and tenderness, rule out intra-abdominal process Multiple kidney stone Recent UTI Coronary artery disease Chronic mild transaminitis over several months Chronic heart failure Hypertension Hyperlipidemia History of liver disease History of syncope History of GERD Plan: Continue with aspirin 81 mg Pain management Stress test with cardiology team today Cardiac team consult Consider CT of the abdomen and pelvis Check D-dimer Check urine analysis Resume home medication GI prophylaxis: Pepcid DVT prophylax subcu heparin
[2025-06-10] MEDS: FERROUS SULFATE 325 MG TAB PO SCH (12:07)
[2025-06-10] MEDS: ASPIRIN 81 MG PO SCH (12:07)
[2025-06-10] MEDS: DAPAGLIFLOZIN PROPANEDIOL 5 MG TABLET PO SCH (12:08)
[2025-06-10] MEDS: ATORVASTATIN 40 MG TAB PO SCH (12:08)
[2025-06-10] MEDS: METOPROLOL TARTRATE 25 MG TAB PO SCH (12:08)
[2025-06-10 13:21] LABS: Bilirubin,Urine Negative (Negative); Blood,Urine Negative (Negative); Color,Urine Light Yellow; Glucose,Urine (UA) Negative (Negative); Ketones,Urine Negative (Negative); Leukocyte Esterase,Urine Negative (Negative); Nitrite,Urine Negative (Negative); PH, Urine 5.5 (5.0-8.0); Protein,Urine Negative (Negative); Specific Gravity,Urine 1.015 (1.001-1.035); Urobilinogen,Urine <2.0 mg/dL (<2.0)
[2025-06-10] MEDS: SODIUM CHLORIDE 0.9% 1,000 ML IV SCH (13:36)
--- NOTE | 2025-06-10 18:32 | CA ---
Dobutamine Stress Echocardiogram Report Yovana Ramos Age: 50 Gender: F : 1975 Exam Date: 06/10/2025 11:25 Exam Location: [facility] Ordering Physician: Karin Rubin Referring Physician: Scottie CHONG Case Management Director: Demetris Dickey RDCS Technologist: Ht (in): 63 Wt (lb): 204 Procedure CPT: Indication: Chest Pain ICD-9 Codes: Rhythm: Patient History: Chest pain, GRANT and history ASCAD Cardiac Medications: Medications in past 24 hours: Contrast: Total Dose (mL): Stress Results Protocol: Dobutamine Peak Dose (???g/kg/min): 30 Duration (min:sec): Atropine:(mg) Target HR: 145 Double Product: 25059 Resting HR: 73 Resting BP: 135 / 82 Peak HR: 135 Peak BP: 153 / 86 Max Predicted HR: 171 79 % Max Predicted HR Stress Summary: BP Response: Reason for Termination: DIRECTED PER [facility] Cardiac Symptoms: CHEST PAIN,JAW PAIN ECG Analysis Resting EKG: Stress EKG: Arrhythmia: Echo Analysis Base Echo Analysis: Low Echo Anaylsis: Peak Echo Analysis: Recovery Echo: MEASUREMENTS (Male/Female) Normal Values CONCLUSIONS Reason: Chest discomfort radiating to the jaw Dobutamine stress echo does not reveal any evidence for ischemia or arrhythmia Dr. Calvin Lamb MD (Electronically Signed) Final Date: 10 June 2025 18:31
[2025-06-10] MEDS: FAMOTIDINE 20 MG TAB PO SCH (21:08)
[2025-06-11 08:23] VITALS: BP 123/80; PULSE 69; TEMP 97.9
[2025-06-11] MEDS: COLCHICINE 0.6 MG EACH PO SCH (09:50)
[2025-06-11] MEDS: DAPAGLIFLOZIN PROPANEDIOL 10 MG TABLET PO SCH (09:50)
[2025-06-11] MEDS: METOPROLOL SUCCINATE (ER) 25 MG TAB.ER.24H PO SCH (10:06)
--- NOTE | 2025-06-11 13:41 | US ---
EXAMINATION TYPE: US renals and bladder DATE OF EXAM: 06/11/2025 COMPARISON: *CT 2024, US 2023 CLINICAL INDICATION: Female, 50 years old with history of left flank pain; Left flank pain. Hx kidney stone. TECHNIQUE: Grayscale imaging of the bilateral kidneys and urinary bladder: FINDINGS: EXAM MEASUREMENTS: Right Kidney: 11.0 x 5.9 x 4.1 cm Left Kidney: 11.6 x 5.0 x 5.4 cm Right Kidney: No hydronephrosis or masses seen Left Kidney: Hyperechoic focus with posterior shadowing seen upper pole: 0.9 x 0.7 x 0.6 cm. Bladder: Appears anechoic Bilateral Jets seen: Yes IMPRESSION: 1. 1 possibly 2 nonobstructing left renal calcifications the largest of which is approximately 9 mm 2. No significant abnormality of the right kidney. [facility], Workstation: [id number] 06/11/2025 1:39 PM
[2025-06-11 13:56] LABS: Anion Gap 12.70 mmol/L (4.00-12.00); BUN/Creat Ratio 21.71 Ratio (12.00-20.00); Blood Urea Nitrogen 15.2 mg/dL (9.0-27.0); Calcium 8.5 mg/dL (8.7-10.3); Carbon Dioxide 19.3 mmol/L (21.6-31.8); Chloride 102 mmol/L (96-109); Glucose 135 mg/dL (70-110); Magnesium 1.8 mg/dL (1.5-2.4); Potassium 4.0 mmol/L (3.5-5.5); Sodium 134 mmol/L (135-145)
--- NOTE | 2025-06-11 17:24 | P.PN ---
Subjective Progress Note Date: 06/11/25 This is a 50-year-old female patient of Dr. Ogden with past medical history of coronary artery disease status post PCI of the ramus, balloon angioplasty of circumflex and CABG with PERSAUD to LAD, diagonal and nondominant marginal branch, chronic diastolic heart failure, hypertension, hyperlipidemia, recurrent pleural effusions status post Pleurx catheter and removal, history of pericardial effusion status post pericardial drain, atypical chest pain, remote history of tobacco use and dependence, history of bilateral breast abscesses status post resection. We have been asked to evaluate the patient for chest pain. Patient gives history of pain that started on the left side of her upper chest going into her neck and jaw and felt like a toothache. Patient is a dentulous. She states she has had the same type of pain a few other times. She states that occurs when she is either walking or laying flat on her back. Patient does have some tenderness to the chest wall. Blood pressure 136/83, heart rate 65, pulse ox 93% on room air, patient has been afebrile. Dr. Lamb discussed findings and recommendations. Patient will be given 1 dose of colchicine now and assess for any change in the chest pain. She is also agreeable to move forward with dobutamine stress test today. -EKG: Sinus rhythm with T wave inversions -Chest x-ray: No acute process. -Laboratory studies: Troponin negative x 3. AST 76, ALT 68, alkaline phosphatase 178. WBC 3.1, hemoglobin 13.2, platelet count 74 and is baseline. -Home cardiac medications: Aspirin 81 mg daily, atorvastatin 40 mg daily, Jardiance 10 mg daily, Lopressor 25 mg daily, Nitrostat as needed. -Limited echocardiogram performed 03/26/2025 revealed EF 55 to 60%, no pericardial effusion. No pleural effusion Progress note 06/11/2025 Seen and examined bedside this a.m. BP and heart rate were reviewed and there is excepted today labs were reviewed they are within acceptable ranges Reports chest pain is better with colchicine. Physical examination: Gen: This is a 50-year-old female in no acute distress. VS: reviewed HEENT: Head is atraumatic, normocephalic. Pupils equal, round. Sclerae is anicteric. NECK: Supple. No JVD. LUNGS: Clear to auscultation. No wheezes or rhonchi. No intercostal retractions. HEART: Regular rate and rhythm. No murmur. + Pericardial rub ABDOMEN: Soft No tenderness. EXTREMITIES: No pedal edema. No calf tenderness. NEUROLOGICAL: Patient is awake, alert and oriented x3. Assessment: Atypical chest pain, acute coronary syndrome ruled out Chest pain #1 chest wall pain, musculoskeletal Chest pain #2 with radiation to the neck and jaw probable mild pericarditis History of coronary artery disease with previous PCI and CABG History of pericardial effusion status post pericardial drain Chronic diastolic heart failure Hypertension Hyperlipidemia Remote history of tobacco use and dependence Plan: Resume patient's home cardiac medications Start patient on colchicine 1.2 mg x 1, at discharge, patient to be on 0.6 mg daily Dobutamine stress echocardiogram was performed which was nonrevealing. Follow-up outpatient with Dr. Ogden Cleared from cardiovascular standpoint Objective - Vital Signs Vital signs: Vital Signs Temp 97.9 F 06/11/25 07:15 Pulse 69 06/11/25 07:15 Resp 16 06/11/25 00:45 BP 123/80 06/11/25 07:15 Pulse Ox 97 06/11/25 07:15 FiO2 Intake & Output 06/10/25 06/11/25 06/11/25 18:59 06:59 18:59 Intake Total 480 871 Balance 480 871 Weight 109.5 kg Intake: Oral 480 871 Other: Voiding Method Toilet # Voids 3 1 2 # Bowel Movements 0 - Labs CBC & Chem 7: 06/09/25 12:30 06/11/25 03:54 Labs: Abnormal Lab Results - Last 24 Hours (Table) 06/11/25 Range/Units 03:54 Sodium 134 L (135-145) mmol/L Carbon Dioxide 19.3 L (21.6-31.8) mmol/L Anion Gap 12.70 H (4.00-12.00) mmol/L BUN/Creatinine Ratio 21.71 H (12.00-20.00) Ratio Glucose 135 H (70-110) mg/dL Calcium 8.5 L (8.7-10.3) mg/dL
[2025-06-12] MEDS ORDERED: DAPAGLIFLOZIN PROPANEDIOL 10 MG TABLET PO SCH (09:00)
[2025-06-12] MEDS ORDERED: COLCHICINE 0.6 MG EACH PO SCH (09:00)
== END 2025-06-11 16:05 | disposition home or self-care (01) ==
LOC: EC 12:01 → 6NMEDSUR 13:58
PROVIDERS: ADMIT Internal Medicine; ATTEND Internal Medicine
DX: R07.89 Other chest pain (principal); E78.5 Hyperlipidemia, unspecified; I11.0 Hypertensive heart disease with heart failure; I50.32 Chronic diastolic (congestive) heart failure; I25.10 Atherosclerotic heart disease of native coronary artery without angina pectoris; I48.0 Paroxysmal atrial fibrillation; K74.60 Unspecified cirrhosis of liver; E11.9 Type 2 diabetes mellitus without complications; R10.9 Unspecified abdominal pain; R74.01 Elevation of levels of liver transaminase levels; K21.9 Gastro-esophageal reflux disease without esophagitis; Z79.82 Long term (current) use of aspirin; Z79.84 Long term (current) use of oral hypoglycemic drugs; Z79.899 Other long term (current) drug therapy; Z87.01 Personal history of pneumonia (recurrent); Z87.440 Personal history of urinary (tract) infections; Z87.891 Personal history of nicotine dependence; Z95.1 Presence of aortocoronary bypass graft; Z88.8 Allergy status to other drugs, medicaments and biological substances; Z95.5 Presence of coronary angioplasty implant and graft
CPT/HCPCS: 96376; 96372 ×3; 96365; 96366; 96375; 99285; 36415; 93005; 93351; 85379; 80053; 80048; 83735 ×3; 84484; 85025; 85610; 85730; 81003; 71046; 76770; G0378 ×3; J2270; J1644 ×3; J3475; J1308 ×2

== ENCOUNTER 2025-06-27 17:59 | Emergency (ER) | payer BC, OTHER ==
--- NOTE | 2025-06-27 18:59 | ED ---
General Adult HPI - General Source: patient, RN notes reviewed Mode of arrival: ambulatory Limitations: no limitations <Jn Lemon - Last Filed: 06/27/25 18:58> <Chantel oBnilla - Last Filed: 07/01/25 22:29> - General Chief complaint: Skin/Abscess/Foreign Body Stated complaint: R breast abscess Time Seen by Provider: 06/27/25 18:13 - History of Present Illness Initial comments: Quick note: This is a 50-year-old female with history of recent double mastectomy presenting for painful lump on right breast (07/10) starting last night. Patient states she underwent mastectomy in March 2025 with recent "drainage" of her left breast with no issue regarding right breast until yesterday. Patient endorses possible associated fever and nausea with subsequent fever resolution following use of Tylenol last night. (Jn Lemon) 50-year-old female presents to the emergency department for evaluation of right breast pain. Patient notes that this started last night. She notes that around 3 months ago she had a double mastectomy performed due to recurrent breast abscesses. She states that she is experiencing issues with the left breast but the right started bothering her yesterday. She denies any overlying erythema or drainage from the area. She does note that she took Tylenol yesterday but has not had anything today. (Chantel Bonilla) - Related Data Home Medications Medication Instructions Recorded Confirmed Atorvastatin Calcium [Lipitor] 40 mg PO DAILY 09/15/24 06/09/25 Metoprolol Tartrate [Lopressor] 25 mg PO DAILY 11/01/24 06/09/25 Omeprazole 20 mg PO DAILY 12/07/24 06/09/25 Empagliflozin [Jardiance] 10 mg PO DAILY 12/15/24 06/09/25 Ferrous Sulfate [Iron (65 MG 325 mg PO DAILY 12/15/24 06/09/25 Elemental)] Nitroglycerin Sl Tabs [Nitrostat] 0.4 mg SL Q5M PRN 12/15/24 06/09/25 traMADol HCL 50 mg PO Q4-6H PRN 02/02/25 06/09/25 Acetaminophen Tab [Tylenol] 325 mg PO Q6HR PRN 06/09/25 06/09/25 Gabapentin [Neurontin] 400 mg PO TID 06/09/25 06/09/25 Previous Rx's Medication Instructions Recorded Aspirin 81 mg PO DAILY tab 10/01/24 Ibuprofen [Motrin] 600 mg PO Q6HR PRN 3 Days #0 06/11/25 Cephalexin [Keflex] 500 mg PO Q6HR #28 cap 06/27/25 Allergies Allergy/AdvReac Type Severity Reaction Status Date / Time capsaicin Allergy Rash/Hives/ Verified 06/27/25 18:19 Swelling Review of Systems ROS Other: All systems not noted in ROS Statement are negative. <Jn Lemon - Last Filed: 06/27/25 18:58> ROS Other: All systems not noted in ROS Statement are negative. <Chantel Bonilla - Last Filed: 07/01/25 22:29> ROS Statement: Those systems with pertinent positive or pertinent negative responses have been documented in the HPI. Past Medical History Past Medical History: Atrial Fibrillation, Coronary Artery Disease (CAD), Heart Failure, GERD/Reflux, Hyperlipidemia, Hypertension, Liver Disease, Pneumonia, Syncope Additional Past Medical History / Comment(s): Hx pneumonia yrs ago. Hx kidney stones. Diet controlled diabetic (pt denies diabetes 02/02/25). Seasonal allergies. Left internal carotid artery stenosis. Cirrhosis of liver. No menses in 4 1/2 yrs, states body does not make enough Estrogen. Recurrent ple ural effusions. Pericardial effusion, bilateral breast abscesses for the past 5 years. Milk ducts & nipples removed 03/2025 History of Any Multi-Drug Resistant Organisms: None Reported Past Surgical History: Appendectomy, Breast Surgery, Cholecystectomy, Coronary Bypass/CABG, Heart Catheterization With Stent, Orthopedic Surgery, Tubal Ligation Additional Past Surgical History / Comment(s): Right wrist carpal tunnel surgery, dental surgery- teeth removed, left breast abcess I&D X3, right breast abcess I&D X2, left ankle surgery, triple CABG 08/09/2024, multiple thoracentesis. Cardiac sents x2 and bilateral carotid stents 08/09/24. Left VATS with talc pleurodesis and placement of left-sided pleurx catheter 09/29/[address] Ortiz; subxiphoid pericardial window 10/04/2024. March 22 nipples removed. Past Anesthesia/Blood Transfusion Reactions: No Reported Reaction, Family History of Problems w/ Anesthesia Additional Past Anesthesia/Blood Transfusion Reaction / Comment(s): No blood transfusion to date. Mom stopped breathing during a surgery and was resuscitated. Date of Last Stent Placement:: 07/30/24 Past Psychological History: Anxiety, Bipolar, Depression Smoking Status: Former smoker Past Alcohol Use History: None Reported Past Drug Use History: None Reported - Past Family History Mother Family Medical History: Cancer Additional Family Medical History / Comment(s): schizoaffective disorder, uteral and cervical cancer Father History Unknown: Yes Family Medical History: Unable to Obtain Additional Family Medical History / Comment(s): Patient did not know her father <Jn Lemon - Last Filed: 06/27/25 18:58> General Exam Limitations: no limitations <Jn Lemon - Last Filed: 06/27/25 18:58> Limitations: no limitations General appearance: alert, in no apparent distress Head exam: Present: atraumatic, normocephalic, normal inspection Eye exam: Present: normal appearance, PERRL, EOMI. Absent: scleral icterus, conjunctival injection, periorbital swelling ENT exam: Present: normal exam, mucous membranes moist Respiratory exam: Present: normal lung sounds bilaterally. Absent: respiratory distress, wheezes, rales, rhonchi, stridor Cardiovascular Exam: Present: regular rate, normal rhythm, normal heart sounds. Absent: systolic murmur, diastolic murmur, rubs, gallop, clicks Extremities exam: Present: normal inspection, full ROM, normal capillary refill. Absent: tenderness, pedal edema, joint swelling, calf tenderness Neurological exam: Present: alert, oriented X3 Psychiatric exam: Present: normal affect, normal mood Skin exam: Present: warm, dry, intact, normal color, other (about 1cm palpable mass in the right breast with no visible evidence of infection, no surrounding erythema, exudate, induration) <Chantel Bonilla - Last Filed: 07/01/25 22:29> - General Exam Comments Initial Comments: Visual Physical Exam Vital signs reviewed General: Well-appearing, nontoxic, no acute distress. Head: Normocephalic, atraumatic Eyes: PERRLA, EOMI ENT: Airway patent Chest: Nonlabored breathing Skin: No visual rash, normal skin tone Neuro: Alert and oriented 3 Musculoskeletal: No gross abnormalities (Jn Lemon) Course Vital Signs 06/27/25 06/27/25 18:17 22:13 Temperature 98.2 F 98.1 F Pulse Rate 107 H 75 Respiratory 20 16 Rate Blood Pressure 174/106 158/89 O2 Sat by Pulse 95 98 Oximetry Medical Decision Making <Jn Lemon - Last Filed: 06/27/25 18:58> <Chantel Bonilla - Last Filed: 07/01/25 22:29> - Medical Decision Making I completed the quick note portion of this chart signed TAB Angela (Jn Lemon) Was pt. sent in by a medical professional or institution (ANDREW Christy, FLORICULTURE TEACHER, urgent care, hospital, or long term...) When possible be specific @ -No Did you speak to anyone other than the patient for history (EMS, parent, family, police, friend...)? What history was obtained from this source @ -No Did you review nursing and triage notes (agree or disagree)? Why? @ -I reviewed and agree with nursing and triage notes Were old charts reviewed (outside hosp., previous admission, EMS record, old EKG, old radiological studies, urgent care reports/EKG's, long term records)? Report findings @ -No old charts were reviewed Differential Diagnosis (chest pain, altered mental status, abdominal pain women, abdominal pain men, vaginal bleeding, weakness, fever, dyspnea, syncope, headache, dizziness, GI bleed, back pain, seizure, CVA, palpatations, mental health, musculoskeletal)? @ -Abscess, cellulitis, breast mass, cyst, fibroadenoma, this list is not all inclusive EKG interpreted by me (3pts min.). @ -none] X-rays interpreted by me (1pt min.). @ -None done CT interpreted by me (1pt min.). @ -None done U/S interpreted by me (1pt. min.). @ -US of the right breast reveals a fluid collection likely seroma, cannot rule out infection What testing was considered but not performed or refused? (CT, X-rays, U/S, labs)? Why? @ -None What meds were considered but not given or refused? Why? @ -None Did you discuss the management of the patient with other professionals (professionals i.e. ANDREW Christy, FLORICULTURE TEACHER, lab, RT, psych nurse, foster care social worker, data warehouse analyst, teacher, correction officer reformatory, case maker)? Give summary @ -No Was smoking cessation discussed for >3mins.? @ -No Was critical care preformed (if so, how long)? @ -No Were there social determinants of health that impacted care today? How? (Homelessness, low income, unemployed, alcoholism, drug addiction, transportation, low edu. Level, literacy, decrease access to med. care, long-term, rehab)? @ -No Was there de-escalation of care discussed even if they declined (Discuss DNR or withdrawal of care, Hospice)? DNR status @ -No What co-morbidities impacted this encounter? (DM, HTN, Smoking, COPD, CAD, Cancer, CVA, ARF, Chemo, Hep., AIDS, mental health diagnosis, sleep apnea, morbid obesity)? @ -None Was patient admitted / discharged? Hospital course, mention meds given and route, prescriptions, significant lab abnormalities, going to OR and other pertinent info. @ -discharged. Patient presented to the emergency department for evaluation of right breast issue. Patient was evaluated as a quick note. Ultrasound of the breast was ordered and obtained. This reveals a small fluid collection of the right breast and infection cannot be ruled out. Patient's vital signs are stable. There are no overlying skin changes. Patient will be started on p.o. antibiotics and advised to follow-up with her breast surgeon. She is understanding agreeable this plan. Patient stable at time of discharge. Case discussed with Dr. Byrd. Undiagnosed new problem with uncertain prognosis? @ -No Drug Therapy requiring intensive monitoring for toxicity (Heparin, Nitro, Insulin, Cardizem)? @ -No Were any procedures done? @ -No Diagnosis/symptom? @ -seroma vs abscess Acute, or Chronic, or Acute on Chronic? @ -acute Uncomplicated (without systemic symptoms) or Complicated (systemic symptoms)? @ -uncomplicated Side effects of treatment? @ -No Exacerbation, Progression, or Severe Exacerbation? @ -No Poses a threat to life or bodily function? How? (Chest pain, [place], [place], pneumonia, PE, COPD, DKA, ARF, appy, cholecystitis, CVA, Diverticulitis, Homicidal, Suicidal, threat to staff... and all critical care pts) @ -No (Chantel Bonilla) Disposition <Jn Lemon - Last Filed: 06/27/25 18:58> Is patient prescribed a controlled substance at d/c from ED?: No <Chantel Bonilla - Last Filed: 07/01/25 22:29> Clinical Impression: Seroma of breast Disposition: HOME SELF-CARE Condition: Stable Instructions (If sedation given, give patient instructions): Abscess (ED), Seroma (DC) Additional Instructions: Please tack picker your antibiotic and take to completion. Follow-up with your breast surgeon. Return to the emergency department for new or worsening symptoms. Prescriptions: Cephalexin [Keflex] 500 mg PO Q6HR #28 cap Referrals: Carolyn Restrepo III, MD [Primary Care Provider] - 1-2 days
[2025-06-27 22:15] VITALS: BP 158/89; PULSE 75; RESP 16; TEMP 98.1
[2025-06-27] MEDS: MORPHINE SULFATE 4 MG/ML SYRINGE IM STA (22:24)
--- NOTE | 2025-07-04 08:55 | USB ---
Reason for Exam: Clinical finding. Patient History: Menarche at age 13. First Full-Term at age 26. Postmenopausal. 08/06/2019, Benign Core Biopsy on the left side. Risk Values: Carmenza 5 year model risk: 1.3%. NCI Lifetime model risk: 11.8%. Prior Study Comparison: 05/16/2025 Bilateral MG 3D screening mammo w/cad, [facility]. Findings: A complete US of patients area of concern at the right incision at nipple area was performed. There is a 1.5 x 0.7 x 4.1cm avascular anechoic area seen previously measuring up to 6.7 x 3.2 x 7.7 cm. Findings possibly representing a seroma with superimposed infection not excluded. This has decreased in size from prior exam 04/12/2025. Clinical correlation recommended. Overall Assessment: Benign, BI-RAD 2 Management: Return to routine follow-up (next follow-up: 05/16/2026 for Screening Mammogram) A clinical breast exam by your physician is recommended on an annual basis and results should be correlated with mammographic findings. This exam should not preclude additional follow-up of suspicious palpable abnormalities. Results were given to the patient verbally at the time of exam. [facility], , 06/27/2025 8:46 PM. Electronically signed and approved by: Song Jaramillo DO
== END 2025-06-27 22:29 | disposition home or self-care (01) ==
LOC: EC 17:59
DX: N64.89 Other specified disorders of breast (principal); Z91.018 Allergy to other foods; Z87.891 Personal history of nicotine dependence
CPT/HCPCS: 76642; 99283; 96372; J2270